=== PATIENT | male | born 1945 | race Caucasian/White ===

== ENCOUNTER 2016-12-10 06:18 | Day surgery (SDC) | payer MEDICARE ==
[2016-12-06 13:33] VITALS: BMI 29.0
[~2016-12-10 06:18] MED LIST: ALPRAZolam 0.25 MG TAB PO PRN; ALPRAZolam 0.5 MG TAB PO PRN; ASPIRIN 325 MG TAB PO STA; ATORVASTATIN 80 MG TAB PO STA; NITROGLYCERIN SL TABS 0.4 MG TAB SUBLINGUAL PRN; SODIUM CHLORIDE 0.9% 1,000 ML in EMPTY BAG 1 BAG IV ONE
[2016-12-10 06:43] VITALS: RESP 16
[2016-12-10] MEDS ORDERED: SODIUM CHLORIDE 0.9% 1,000 ML IV ONE (06:43)
[2016-12-10 06:55] LABS: Basophils % (A) 0 %; CH 30.6; CHCM 33.4; Eosinophils # (A) 0.2 k/uL (0-0.7); Eosinophils % (A) 2 %; HCT 41.5 % (39.0-53.0); HDW 2.78; HGB 13.5 gm/dL (13.0-17.5); Luc # (Auto) 0.14; Luc % (Auto) 2; Lymphocytes # (A) 2.6 k/uL (1.0-4.8); Lymphocytes % (A) 27 %; MCH 29.8 pg (25.0-35.0); MCHC 32.4 g/dL (31.0-37.0); MCV 91.8 fL (80.0-100.0); Mean Platelet Volume 6.7; Monocytes # (A) 0.3 k/uL (0-1.0); Monocytes % (A) 3 %; Neutrophils # (A) 6.4 k/uL (1.3-7.7); Neutrophils % (A) 66 %; RBC 4.52 m/uL (4.30-5.90); RDW 14.5 % (11.5-15.5); WBC 9.7 k/uL (3.8-10.6); WBC (Perox) 9.63
[2016-12-10 07:05] LABS: Anion Gap 9 mmol/L; Blood Urea Nitrogen 15 mg/dL (9-20); Calcium 8.7 mg/dL (8.4-10.2); Carbon Dioxide 24 mmol/L (22-30); Chloride 107 mmol/L (98-107); Glucose 103 mg/dL (74-99); Non-African American GFR(MDRD) >60 (>60 ml/min/1.73 sqM); Potassium 4.3 mmol/L (3.5-5.1); Sodium 140 mmol/L (137-145)
[2016-12-10] MEDS ORDERED: fentaNYL (PF) 50 MCG/ML 2 ML AMP ONE (07:20)
[2016-12-10] MEDS ORDERED: MIDAZOLAM 2 MG/2 ML VIAL ONE (07:20)
[2016-12-10] MEDS ORDERED: fentaNYL (PF) 50 MCG/ML 2 ML AMP IV ONE ×2 (07:26→09:53)
[2016-12-10] MEDS ORDERED: MIDAZOLAM 2 MG/2 ML VIAL IV ONE (07:26)
[2016-12-10] MEDS ORDERED: LIDOCAINE 2% INJ 20 MG/ML SQ ONE (07:28)
[2016-12-10] MEDS ORDERED: CLOPIDOGREL 75 MG TAB PO ONE (07:55)
[2016-12-10] MEDS ORDERED: BIVALIRUDIN BOLUS 250 MG/50 ML IV ONE (07:55)
[2016-12-10] MEDS ORDERED: BIVALIRUDIN 250 MG in SODIUM CHLORIDE 0.9% 50 ML IV ONE (07:56)
[2016-12-10] MEDS ORDERED: CLOPIDOGREL 75 MG TAB ONE (07:57)
[2016-12-10] MEDS: NITROGLYCERIN 1000MCG/10ML SYRINGE INTRACORON ONE ×2 (08:03→08:13)
[2016-12-10] MEDS ORDERED: HYDROmorphone 2 MG/ML 1 ML SYRINGE ONE (08:06)
[2016-12-10] MEDS: HYDROmorphone 2 MG/ML 1 ML SYRINGE IV ONE ×3 (08:07→08:17)
--- NOTE | 2016-12-10 08:08 | CC ---
DATE OF SERVICE: INDICATION: Shortness of breath with abnormal stress test suggestive of unstable angina. PROCEDURE NOTE: After obtaining informed consent, left heart catheterization and coronary angiogram are performed via the right femoral artery using standard Soledad catheters. Patient tolerated the procedure well without any obvious immediate complications. FINDINGS: 1. HEMODYNAMICS: Left ventricular end-diastolic pressure is 16 mm. There is no significant gradient across the aortic valve. 2. LEFT VENTRICULOGRAM: Left ventriculogram was not performed. 3. ANGIOGRAPHIC DATA: LEFT MAIN CORONARY ARTERY: Left main coronary artery is a normal size vessel and is free of stenosis. It divides into left anterior descending coronary artery and circumflex coronary artery. There is a mild to moderate atherosclerotic plaque in mid LAD. Circumflex coronary artery is free of stenosis. Right coronary artery is a large dominant vessel and there is an 80% to 90% stenosis involving mid RCA. CONCLUSION: An 80% to 90% stenosis involving mid right coronary artery. The ischemia noted in the apex of the ventricle is probably related to the right coronary artery. We do not see any hemodynamically significant lesion in the left anterior descending. Patient will undergo angioplasty of the right coronary artery today and will see how his symptoms evolve, and we will perform a stress test down the road to see if he has a more significant lesion in the left anterior descending coronary artery than we think he does. He will be managed with optimal medical therapy also.
[2016-12-10] MEDS ORDERED: niCARdipine Syringe (1,000 mcg/10 mL) INTRACORON ONE (08:12)
[2016-12-10] MEDS ORDERED: IOHEXOL 350 MG/ML 100 ML BOTTLE INTRATHECA ONE (08:32)
[2016-12-10] MEDS ORDERED: HYDROmorphone 1 MG/ML 1 ML SYRINGE IVP PRN (08:49)
[2016-12-10] MEDS ORDERED: RX INFO: IV CONTRAST WAS GIVEN 1 EACH MISC MISCELLANE PRN (08:50)
[2016-12-10] MEDS ORDERED: ATROPINE SULFATE 0.1 MG/ML 10ML SYRINGE IV PRN (08:50)
[2016-12-10] MEDS ORDERED: TIOTROPIUM BR INHALATION PRN (08:50)
[2016-12-10] MEDS ORDERED: OLODATEROL HCL INHALATION PRN (08:50)
[2016-12-10] MEDS ORDERED: MAG HYDROX/AL HYDROX/SIMETH 30 ML CUP PO PRN (08:50)
[2016-12-10] MEDS ORDERED: [UNRECOGNIZED DRUG - OTHER] INHALATION PRN (08:50)
[2016-12-10] MEDS ORDERED: NITROGLYCERIN SL TABS 0.4 MG TAB SUBLINGUAL PRN (08:50)
[2016-12-10] MEDS ORDERED: ZOLPIDEM 5 MG TAB PO PRN (08:50)
[2016-12-10] MEDS: HYDROmorphone 1 MG/ML 1 ML SYRINGE IVP PRN ×2 (08:58→20:07)
[2016-12-10] MEDS ORDERED: SODIUM CHLORIDE 0.9% 1,000 ML IV SCH (09:00)
[2016-12-10] MEDS ORDERED: MALTOSE IVPB SCH (09:00)
[2016-12-10] MEDS ORDERED: ABATACEPT IVPB SCH (09:00)
[2016-12-10] MEDS ORDERED: fentaNYL (PF) 50 MCG/ML 2 ML AMP IV PRN (09:46)
--- NOTE | 2016-12-10 09:46 | PTCA ---
DATE OF SERVICE: 12/10/2016 PERFORMING PHYSICIAN: Abigail Trinh, [employer] Supervisor. PROCEDURE PERFORMED: Successful stenting of the mid RCA using 3.5 x 12 mm Xience DOM which was postdilated using 3.75 mm balloon with good angiographic results. INDICATION: This is a pleasant 71-year-old gentleman who sees Dr. Draper as an outpatient, was experiencing chest discomfort and underwent myocardial perfusion imaging stress test which showed ischemia. He underwent a heart catheterization by Dr. Draper and was found to have severe disease involving the mid RCA. APPROACH: Right common femoral artery. COMPLICATIONS: None. LEVEL OF SEDATION: Moderate with sedation length of about 30 minutes. PROCEDURE DESCRIPTION: After diagnostic heart catheterization was performed by Dr. Draper, the decision was made toward percutaneous coronary intervention. Anticoagulation was initiated using Angiomax with subsequently, I took JR4 guide and the RCA was engaged. The RCA was wired using a whisper wire. Subsequently I did direct stenting of the RCA using 3.5 x 12 mm Xience DOM, where the stent was positioned under fluoroscopic guidance and deployed under 12 atmospheres for 20 seconds. Subsequently, I post-dilated using 3.75 mm x 12 mm balloon which was inflated under 18 atmospheres for 30 seconds with the following angiogram showed good angiographic result without perforation and without dissection. The procedure was completed without any complication. POSTPROCEDURE MANAGEMENT: 1. Dual antiplatelet therapy. 2. Risk factor modifications. 3. Follow up with the patient.
[2016-12-10] MEDS: FOLIC ACID 1 MG TAB PO SCH (12:09)
[2016-12-10] MEDS: METOPROLOL TARTRATE 25 MG TAB PO SCH ×2 (12:09→21:31)
[2016-12-10] MEDS: oxyCODONE-APAP 10-325MG 1 EACH TAB PO SCH ×3 (12:09→17:40)
[2016-12-10] MEDS: predniSONE 5 MG TAB PO SCH ×3 (12:10→21:32)
[2016-12-11] MEDS: oxyCODONE-APAP 10-325MG 1 EACH TAB PO SCH ×2 (00:02→07:45)
[2016-12-11] MEDS: HYDROmorphone 1 MG/ML 1 ML SYRINGE IVP PRN (03:04)
[2016-12-11 04:29] VITALS: PULSE 62
[2016-12-11 06:45] LABS: Basophils # (A) 0.1 k/uL (0-0.2); Basophils % (A) 1 %; CH 30.3; Eosinophils # (A) 0.1 k/uL (0-0.7); Eosinophils % (A) 1 %; HCT 41.4 % (39.0-53.0); HDW 2.75; HGB 13.1 gm/dL (13.0-17.5); Luc # (Auto) 0.14; Luc % (Auto) 2; Lymphocytes # (A) 3.4 k/uL (1.0-4.8); Lymphocytes % (A) 37 %; MCH 29.2 pg (25.0-35.0); MCHC 31.7 g/dL (31.0-37.0); MCV 92.2 fL (80.0-100.0); Mean Platelet Volume 7.1; Monocytes # (A) 0.4 k/uL (0-1.0); Monocytes % (A) 4 %; Neutrophils # (A) 5.4 k/uL (1.3-7.7); Neutrophils % (A) 57 %; RBC 4.49 m/uL (4.30-5.90); RDW 14.3 % (11.5-15.5); WBC 9.4 k/uL (3.8-10.6); WBC (Perox) 9.41
[2016-12-11 07:14] LABS: Anion Gap 9 mmol/L; Blood Urea Nitrogen 12 mg/dL (9-20); Calcium 8.7 mg/dL (8.4-10.2); Carbon Dioxide 26 mmol/L (22-30); Chloride 104 mmol/L (98-107); Glucose 158 mg/dL (74-99); Non-African American GFR(MDRD) >60 (>60 ml/min/1.73 sqM); Potassium 4.3 mmol/L (3.5-5.1); Sodium 139 mmol/L (137-145)
[2016-12-11] MEDS: FOLIC ACID 1 MG TAB PO SCH (07:45)
[2016-12-11] MEDS: METOPROLOL TARTRATE 25 MG TAB PO SCH (07:45)
[2016-12-11] MEDS: predniSONE 5 MG TAB PO SCH (07:46)
[2016-12-11 07:55] VITALS: BP 144/78; TEMP 98.1
--- NOTE | 2016-12-11 08:20 | DS ---
DATE OF ADMISSION: 12/10/2016 DATE OF DISCHARGE: 12/11/2016 FINAL DIAGNOSIS: Unstable angina. PROCEDURES PERFORMED: 1. Left heart catheterization. 2. Angioplasty with stent placement. HOSPITAL COURSE: A 71-year-old gentleman presented to me with symptoms of unstable angina with an abnormal stress test and was advised to undergo cardiac catheterization. His cardiac catheterization revealed a tight stenosis involving mid RCA and patient underwent angioplasty of the same. He had a fairly uneventful night. Did not have chest pain or difficulty in breathing. Had one short run of nonsustained VT. Condition at the time of discharge, he is free of symptoms, hemodynamically stable, there is no jugular venous distention. Carotid upstroke is normal. There is no bruit. Chest is clear to auscultation and percussion. Heart exam reveals first and second heart sounds. No gallop. No murmur. Abdomen is soft. Exam of the extremities did not reveal edema. Peripheral pulses are felt. Groin is free of bleeding, bruit, hematoma. Foot pulses are intact. EKG shows sinus rhythm, normal axis, normal intervals. Labs show a hemoglobin of 13.1, platelet count is 470. Creatinine is 0.8, rhythm strip showed nonsustained VT. DISCHARGE MEDICATIONS: Patient will go home on: 1. Aspirin. 2. Plavix. 3. Sublingual nitroglycerin on a p.r.n. basis. 4. Tenormin 25 mg daily. 5. Lipitor 40 mg daily. 6. Along with his rheumatoid arthritis medications. He will be followed up in my office in a week's time. He is going to have an outpatient 24-hour Holter to follow the nonsustained VT.
[2016-12-11] MEDS ORDERED: CLOPIDOGREL 75 MG TAB PO SCH (09:00)
[2016-12-11] MEDS ORDERED: ASPIRIN 81 MG CHEW PO SCH (09:00)
[2016-12-11] MEDS ORDERED: ATORVASTATIN 80 MG TAB PO SCH (21:00)
== END 2016-12-11 09:57 ==
LOC: CATHCVL 06:18 → 6SEL 08:18 → CATHCVL 12-11 09:57
PROVIDERS: ATTEND Internal Medicine Cardiovascular Disease
DX: I25.110 Atherosclerotic heart disease of native coronary artery with unstable angina pectoris (principal); R94.39 Abnormal result of other cardiovascular function study; M06.9 Rheumatoid arthritis, unspecified; Z79.891 Long term (current) use of opiate analgesic; Z79.52 Long term (current) use of systemic steroids; Z79.899 Other long term (current) drug therapy; Z87.891 Personal history of nicotine dependence
CPT/HCPCS: 93458; 80048 ×2; 85025 ×2; 99152; 99153 ×2; C9600; C1769 ×2; C1887; C1725; C1894; C1874; J2001; J2250; J1170 ×3; Q9967; J3010; J0583; J7512 ×2

== ENCOUNTER 2017-04-28 12:02 | Inpatient (IN) | payer MEDICARE ==
[2017-04-28] MEDS ORDERED: SODIUM CHLORIDE 0.9% 1,000 ML IV STA (13:10)
[2017-04-28] MEDS ORDERED: IPRATROPIUM-ALBUTEROL 3 ML NEB INHALATION STA (13:15)
--- NOTE | 2017-04-28 13:18 | ED ---
SOB HPI - General Chief Complaint: Shortness of Breath Stated Complaint: Diff breathing, poss pneumonia Time Seen by Provider: 04/28/17 12:53 Source: patient, RN notes reviewed Mode of arrival: ambulatory Limitations: no limitations - History of Present Illness Initial Comments: Patient is a 72-year-old male presents to the emergency room for evaluation of shortness of breath. Patient states she has a history of getting pneumonia. Patient states he feels like he has pneumonia. Patient is to begin having shortness of breath with wheezing about . Patient states he's having a slight productive cough. Patient denies fevers or chills. Patient denies nausea or vomiting. Patient denies headache or dizziness. Patient states that he used to smoke. Patient denies any known history of asthma or COPD. Patient does state he has a history of rheumatoid arthritis. Patient states he takes 10 mg of prednisone in the morning and at night. Patient states he has been on prednisone for years. Patient does state he feels slightly short of breath. Patient denies chest pain. Patient denies any other symptoms or complaints. - Related Data Home Medications Medication Instructions Recorded Confirmed oxyCODONE HCL/ACETAMINOPHEN 1 tab PO QID PRN 03/13/14 04/28/17 [Percocet 10-325 mg] Methotrexate Sodium (Pf) 50 mg INJ TU 11/14/15 04/28/17 [Methotrexate 50 mg/2 ml Vial] predniSONE [predniSONE] 20 mg PO DAILY 04/28/17 04/28/17 Allergies Allergy/AdvReac Type Severity Reaction Status Date / Time No Known Allergies Allergy Verified 04/28/17 12:05 Review of Systems ROS Statement: Those systems with pertinent positive or pertinent negative responses have been documented in the HPI. ROS Other: All systems not noted in ROS Statement are negative. Past Medical History Past Medical History: COPD, Rheumatoid Arthritis (RA) Additional Past Medical History / Comment(s): gastritis, viral pericarditis per past medical record but pt denies, COPD per past medical record but pt denies. PANCREATITIS usually a couple times a year, pneumonias. History of Any Multi-Drug Resistant Organisms: None Reported Past Surgical History: Joint Replacement, Orthopedic Surgery Additional Past Surgical History / Comment(s): L KNEE REPLACED, bilateral rotator cuff SHOULDER surgery x2, L ankle surgery after fx. EGD 2013 showed gastritis. Past Anesthesia/Blood Transfusion Reactions: No Reported Reaction Additional Past Anesthesia/Blood Transfusion Reaction / Comment(s): Pt states he has never recieved blood. Past Psychological History: No Psychological Hx Reported Smoking Status: Former smoker - Past Family History Sister(s) Family Medical History: Cancer Mother Family Medical History: Dementia Father Family Medical History: Rheumatoid Arthritis (RA) General Exam - General Exam Comments Initial Comments: Sitting in exam room, no acute distress. Limitations: no limitations General appearance: alert, in no apparent distress Head exam: Present: atraumatic, normocephalic, normal inspection Eye exam: Present: normal appearance ENT exam: Present: normal exam Neck exam: Present: normal inspection Respiratory exam: Present: wheezes (Diffuse wheezing on auscultation). Absent: respiratory distress Cardiovascular Exam: Present: normal rhythm, tachycardia, normal heart sounds GI/Abdominal exam: Present: soft, normal bowel sounds. Absent: distended, tenderness, guarding, rebound, rigid Extremities exam: Present: normal inspection Back exam: Present: normal inspection Neurological exam: Present: alert, oriented X3, CN II-XII intact, normal gait Psychiatric exam: Present: normal affect, normal mood Skin exam: Present: warm, dry, intact, normal color. Absent: rash Course Vital Signs 04/28/17 04/28/17 04/28/17 12:05 12:37 13:30 Temperature 98.3 F Pulse Rate 105 H 87 Respiratory 18 16 Rate Blood Pressure 117/64 O2 Sat by Pulse 93 L Oximetry 04/28/17 04/28/17 04/28/17 13:41 14:37 16:19 Temperature Pulse Rate 89 87 Respiratory 17 16 Rate Blood Pressure 107/56 107/56 O2 Sat by Pulse 92 L 95 Oximetry Medical Decision Making - Medical Decision Making patient is a 72-year-old male presents emergency room for evaluation of cough and shortness of breath. Patient's WBC elevated, patient has been on prednisone for the past few years. Chest x-ray negative for any acute findings. Patient's d-dimer slightly elevated. CT chest negative for PE. Patient is wheezing on exam. Patient's O2 sat low. Patient will be admitted for COPD exacerbation and treated with DuoNeb treatment and increased doses of prednisone. Case discussed Dr. España also evaluated patient. - Lab Data Result diagrams: 04/28/17 12:37 04/28/17 12:37 Lab Results 04/28/17 04/28/17 04/28/17 Range/Units 12:37 12:37 12:37 WBC 16.4 H (3.8-10.6) k/uL RBC 4.89 (4.30-5.90) m/uL Hgb 14.9 (13.0-17.5) gm/dL Hct 44.1 (39.0-53.0) % MCV 90.1 (80.0-100.0) fL MCH 30.4 (25.0-35.0) pg MCHC 33.7 (31.0-37.0) g/dL RDW 15.2 (11.5-15.5) % Plt Count 445 (150-450) k/uL Neutrophils % 89 % Lymphocytes % 7 % Monocytes % 3 % Eosinophils % 0 % Basophils % 0 % Neutrophils # 14.6 H (1.3-7.7) k/uL Lymphocytes # 1.1 (1.0-4.8) k/uL Monocytes # 0.5 (0-1.0) k/uL Eosinophils # 0.0 (0-0.7) k/uL Basophils # 0.0 (0-0.2) k/uL PT (9.0-12.0) sec INR (<1.2) APTT (22.0-30.0) sec D-Dimer (<0.60) mg/L FEU Sodium 134 L (137-145) mmol/L Potassium 4.9 (3.5-5.1) mmol/L Chloride 99 (98-107) mmol/L Carbon Dioxide 24 (22-30) mmol/L Anion Gap 11 mmol/L BUN 19 (9-20) mg/dL Creatinine 0.95 (0.66-1.25) mg/dL Est GFR (MDRD) Af Amer >60 (>60 ml/min/1.73 sqM) Est GFR (MDRD) Non-Af >60 (>60 ml/min/1.73 sqM) Glucose 110 H (74-99) mg/dL Calcium 8.4 (8.4-10.2) mg/dL Total Bilirubin 0.7 (0.2-1.3) mg/dL AST 24 (17-59) U/L ALT 35 (21-72) U/L Alkaline Phosphatase 108 (38-126) U/L Total Creatine Kinase 34 L (55-170) U/L CK-MB (CK-2) 0.3 (0.0-2.4) ng/mL CK-MB (CK-2) Rel Index 0.9 Troponin I <0.012 (0.000-0.034) ng/mL Total Protein 6.5 (6.3-8.2) g/dL Albumin 3.4 L (3.5-5.0) g/dL 04/28/17 Range/Units 12:37 WBC (3.8-10.6) k/uL RBC (4.30-5.90) m/uL Hgb (13.0-17.5) gm/dL Hct (39.0-53.0) % MCV (80.0-100.0) fL MCH (25.0-35.0) pg MCHC (31.0-37.0) g/dL RDW (11.5-15.5) % Plt Count (150-450) k/uL Neutrophils % % Lymphocytes % % Monocytes % % Eosinophils % % Basophils % % Neutrophils # (1.3-7.7) k/uL Lymphocytes # (1.0-4.8) k/uL Monocytes # (0-1.0) k/uL Eosinophils # (0-0.7) k/uL Basophils # (0-0.2) k/uL PT 11.2 (9.0-12.0) sec INR 1.1 (<1.2) APTT 27.0 (22.0-30.0) sec D-Dimer 0.64 H (<0.60) mg/L FEU Sodium (137-145) mmol/L Potassium (3.5-5.1) mmol/L Chloride (98-107) mmol/L Carbon Dioxide (22-30) mmol/L Anion Gap mmol/L BUN (9-20) mg/dL Creatinine (0.66-1.25) mg/dL Est GFR (MDRD) Af Amer (>60 ml/min/1.73 sqM) Est GFR (MDRD) Non-Af (>60 ml/min/1.73 sqM) Glucose (74-99) mg/dL Calcium (8.4-10.2) mg/dL Total Bilirubin (0.2-1.3) mg/dL AST (17-59) U/L ALT (21-72) U/L Alkaline Phosphatase (38-126) U/L Total Creatine Kinase (55-170) U/L CK-MB (CK-2) (0.0-2.4) ng/mL CK-MB (CK-2) Rel Index Troponin I (0.000-0.034) ng/mL Total Protein (6.3-8.2) g/dL Albumin (3.5-5.0) g/dL 04/28/17 14:12 Normal sinus rhythm, ventricular rate 90 bpm, DE interval 156 ms, QRS duration 78 ms, QT/QTC 330/403 ms - Radiology Data Radiology results: report reviewed, image reviewed Disposition Clinical Impression: COPD exacerbation Disposition: [facility] Condition: Stable Decision Date: 04/28/17
[2017-04-28 13:26] LABS: Basophils % (A) 0 %; CH 30.4; CHCM 33.9; Eosinophils % (A) 0 %; HCT 44.1 % (39.0-53.0); HDW 2.49; HGB 14.9 gm/dL (13.0-17.5); Luc # (Auto) 0.17; Luc % (Auto) 1; Lymphocytes # (A) 1.1 k/uL (1.0-4.8); Lymphocytes % (A) 7 %; MCH 30.4 pg (25.0-35.0); MCHC 33.7 g/dL (31.0-37.0); MCV 90.1 fL (80.0-100.0); Monocytes # (A) 0.5 k/uL (0-1.0); Monocytes % (A) 3 %; Neutrophils # (A) 14.6 k/uL (1.3-7.7); Neutrophils % (A) 89 %; RBC 4.89 m/uL (4.30-5.90); RDW 15.2 % (11.5-15.5); WBC 16.4 k/uL (3.8-10.6); WBC (Perox) 17.18
[2017-04-28 13:34] LABS: ALT 35 U/L (21-72); AST 24 U/L (17-59); Alkaline Phosphatase 108 U/L (38-126); Anion Gap 11 mmol/L; Blood Urea Nitrogen 19 mg/dL (9-20); Calcium 8.4 mg/dL (8.4-10.2); Carbon Dioxide 24 mmol/L (22-30); Chloride 99 mmol/L (98-107); Glucose 110 mg/dL (74-99); INR 1.1 (<1.2); Non-African American GFR(MDRD) >60 (>60 ml/min/1.73 sqM); Potassium 4.9 mmol/L (3.5-5.1); Sodium 134 mmol/L (137-145); Total Bilirubin 0.7 mg/dL (0.2-1.3); Total Protein 6.5 g/dL (6.3-8.2)
[2017-04-28 13:35] LABS: Prothrombin Time 11.2 sec (9.0-12.0)
[2017-04-28 13:46] LABS: Creatine Kinase 34 U/L (55-170)
[2017-04-28 13:59] LABS: Creatine Kinase MB 0.3 ng/mL (0.0-2.4); Troponin I <0.012 ng/mL (0.000-0.034)
--- NOTE | 2017-04-28 14:18 | XR ---
EXAMINATION TYPE: XR chest 2V DATE OF EXAM: 04/28/2017 COMPARISON: 03/18/2016 HISTORY: Shortness of breath TECHNIQUE: Frontal and lateral views of the chest are obtained. FINDINGS: Scattered senescent parenchymal changes noted. Hyperinflation compatible with COPD. No evidence for infiltrate. No evidence for atelectasis. Heart size is stable. Mediastinal structures are stable and grossly unremarkable. No evidence for hilar prominence. Degenerative changes dorsal spine. IMPRESSION: 1. No evidence for acute pulmonary disease.
[2017-04-28] MEDS ORDERED: RX INFO: IV CONTRAST WAS GIVEN 1 EACH MISC MISCELLANE PRN (14:52)
--- NOTE | 2017-04-28 15:40 | CT ---
EXAMINATION TYPE: CT angio chest DATE OF EXAM: 04/28/2017 COMPARISON: NONE HISTORY: Patient complains of difficulty breathing. CT DLP: 317.7 mGycm. Automated Exposure Control for Dose Reduction was Utilized. CONTRAST: CTA scan of the thorax is performed with IV Contrast, patient injected with 100 mL of Omnipaque 350, pulmonary embolism protocol. MIP Images are created on CT scanner and reviewed. FINDINGS: LUNGS: Small bilateral pleural effusions are increased in size from prior study, right greater than l eft. There is some ill-defined atelectasis and/or infiltrates in both bases abutting effusions. Exam is suboptimal as is degraded by respiratory motion artifact. There is dense consolidation right upper lobe posteriorly and inferiorly abutting the fissure. There is mild to moderate emphysematous change in the background with upper lung scarring and bleb formation seen bilaterally. Tracheobronchial leandra e is patent. No pneumothorax is seen bilaterally. MEDIASTINUM: There is suboptimal bolus but there is no CT evidence for pulmonary embolism. There are no greater than 1 cm hilar or mediastinal lymph nodes. No pericardial effusion is seen. Heart size is upper limits of normal. Main pulmonary artery is dilated at 3.[address] findings suggesting pulmon kameron artery hypertension. Coronary artery calcification is present. OTHER: There are scattered calcifications throughout the spleen. There is multilevel spurring in the spine. Osseous structures are somewhat demineralized. IMPRESSION: 1. Suboptimal bolus without CT evidence for pulmonary embolism. 2. There are small bilateral pleural effusions increased in size from prior study. There is patchy bi basilar atelectasis and/or infiltrate. There is dense right upper lobe masslike consolidation, correl ate for multifocal pneumonia. Follow-up to resolution advised to rule out neoplasm. Background of mil d to moderate emphysematous change noted.
[2017-04-28] MEDS ORDERED: NALOXONE 0.4 MG/ML 1 ML VIAL IV PRN (15:46)
[2017-04-28] MEDS ORDERED: predniSONE 50 MG TAB PO STA (15:55)
[2017-04-28] MEDS: ACETAMINOPHEN TAB 325 MG TAB PO PRN (16:49)
[2017-04-28] MEDS: SODIUM CHLORIDE 0.9% 1,000 ML IV SCH (16:49)
[2017-04-28] MEDS ORDERED: IPRATROPIUM-ALBUTEROL 3 ML NEB INHALATION SCH (17:00)
[2017-04-28] MEDS: IBUPROFEN 800 MG TAB PO PRN (19:18)
[2017-04-28] MEDS: AZITHROMYCIN 500 MG in SODIUM CHLORIDE 0.9% 250 ML IVPB SCH (20:15)
[2017-04-28] MEDS: IPRATROPIUM-ALBUTEROL 3 ML NEB INHALATION SCH ×2 (20:42→23:10)
[2017-04-28] MEDS: oxyCODONE-APAP 10-325MG 1 EACH TAB PO PRN (21:38)
[2017-04-28] MEDS ORDERED: IPRATROPIUM-ALBUTEROL 3 ML NEB INHALATION PRN (23:10)
[2017-04-29] MEDS: ONDANSETRON 4 MG/2 ML VIAL IVP PRN ×3 (04:26→20:32)
[2017-04-29] MEDS: SODIUM CHLORIDE 0.9% 1,000 ML IV SCH (05:34)
[2017-04-29] MEDS: HYDROmorphone 1 MG/ML 1 ML SYRINGE IVP PRN ×4 (05:34→22:27)
[2017-04-29] MEDS: oxyCODONE-APAP 10-325MG 1 EACH TAB PO PRN (08:02)
[2017-04-29] MEDS: IPRATROPIUM-ALBUTEROL 3 ML NEB INHALATION SCH ×4 (08:06→20:47)
[2017-04-29 09:00] LABS: Basophils % (A) 0 %; CH 30.1; CHCM 33.3; Eosinophils % (A) 0 %; HCT 39.3 % (39.0-53.0); HDW 2.53; HGB 13.4 gm/dL (13.0-17.5); Luc # (Auto) 0.15; Luc % (Auto) 1; Lymphocytes # (A) 0.6 k/uL (1.0-4.8); Lymphocytes % (A) 3 %; MCH 30.9 pg (25.0-35.0); MCV 90.8 fL (80.0-100.0); Mean Platelet Volume 7.5; Monocytes # (A) 0.3 k/uL (0-1.0); Monocytes % (A) 2 %; Neutrophils # (A) 17.4 k/uL (1.3-7.7); Neutrophils % (A) 94 %; RBC 4.33 m/uL (4.30-5.90); RDW 15.2 % (11.5-15.5); WBC 18.5 k/uL (3.8-10.6); WBC (Perox) 18.68
[2017-04-29] MEDS ORDERED: predniSONE 50 MG TAB PO SCH (09:00)
[2017-04-29 09:07] LABS: ALT 30 U/L (21-72); AST 27 U/L (17-59); Alkaline Phosphatase 96 U/L (38-126); Anion Gap 10 mmol/L; Blood Urea Nitrogen 17 mg/dL (9-20); Carbon Dioxide 22 mmol/L (22-30); Chloride 103 mmol/L (98-107); Glucose 141 mg/dL (74-99); Non-African American GFR(MDRD) >60 (>60 ml/min/1.73 sqM); Potassium 4.5 mmol/L (3.5-5.1); Sodium 135 mmol/L (137-145); Total Bilirubin 0.5 mg/dL (0.2-1.3); Total Protein 5.9 g/dL (6.3-8.2)
[2017-04-29] MEDS: AZITHROMYCIN 500 MG in SODIUM CHLORIDE 0.9% 250 ML IVPB SCH (09:28)
[2017-04-29] MEDS: IBUPROFEN 800 MG TAB PO PRN (09:45)
[2017-04-29] MEDS: ACETAMINOPHEN TAB 325 MG TAB PO PRN (11:02)
--- NOTE | 2017-04-29 11:58 | P.HPIM ---
History of Present Illness H&P Date: 04/29/17 Chief Complaint: Shortness of breath and cough This is a 72-year-old gentleman with past medical history noted below significant for underlying rheumatoid arthritis who presented to the hospital with worsening shortness of breath and cough. Patient said that his symptoms started few days ago and is being getting progressively worse. He said that his cough is productive of yellowish sputum. Patient reported that he is a former smoker and quit approximately 6 months ago. He was never told that he has COPD and was never evaluated by a graphic designer. In the emergency room, patient was found to have audible wheezing all over the chest. D-dimer was elevated so a computed tomography scan of the chest was obtained that showed no evidence of significant pulmonary emboli. The timing of the contrast was not ideal. Also noted by basilar infiltrate concerning for possible atelectasis versus pneumonia. Right upper lobe consolidation concerning for possible underlying malignancy/masslike lesion Review of Systems Review of system: 14 points review of systems were obtained and were negative except to what were mentioned in the HPI. Past Medical History Past Medical History: COPD, Rheumatoid Arthritis (RA) Additional Past Medical History / Comment(s): gastritis, viral pericarditis per past medical record but pt denies, COPD per past medical record but pt denies. PANCREATITIS usually a couple times a year, pneumonia multiple times. upper/ lower bridges". History of Any Multi-Drug Resistant Organisms: None Reported Past Surgical History: Heart Catheterization With Stent, Joint Replacement, Orthopedic Surgery Additional Past Surgical History / Comment(s): L KNEE REPLACED, bilateral rotator cuff SHOULDER surgery x2, L ankle surgery after fx. EGD 2013 showed gastritis. Past Anesthesia/Blood Transfusion Reactions: No Reported Reaction Additional Past Anesthesia/Blood Transfusion Reaction / Comment(s): Pt states he has never recieved blood. Date of Last Stent Placement:: unk Smoking Status: Former smoker - Past Family History Sister(s) Family Medical History: Cancer Additional Family Medical History / Comment(s): pt's father had ra, mother had 16 children was healthy most of her life age 93 from alzheimers. Mother Family Medical History: Dementia Father Family Medical History: Rheumatoid Arthritis (RA) Medications and Allergies Home Medications Medication Instructions Recorded Confirmed Type oxyCODONE HCL/ACETAMINOPHEN 1 tab PO QID PRN 06/01/14 07/17/17 History [Percocet 10-325 mg] Methotrexate Sodium (Pf) 50 mg INJ TU 11/14/15 04/28/17 History [Methotrexate 50 mg/2 ml Vial] predniSONE [predniSONE] 20 mg PO DAILY 04/28/17 04/28/17 History Allergies Allergy/AdvReac Type Severity Reaction Status Date / Time No Known Allergies Allergy Verified 04/28/17 12:05 Physical Exam Vitals: Vital Signs Temp Pulse Pulse Resp BP BP Pulse Ox 04/29/17 10:38 100.2 F H 04/29/17 09:53 102.8 F H 04/29/17 08:00 88 18 04/29/17 07:00 98.6 F 88 18 138/74 95 04/29/17 03:20 98.5 F 04/28/17 23:00 98.3 F 67 18 96/60 93 L 04/28/17 20:45 82 04/28/17 19:13 102 F H 04/28/17 16:45 101.1 F H 83 16 127/76 93 L 04/28/17 16:32 98.3 F 87 16 107/56 95 04/28/17 16:19 16 107/56 95 04/28/17 14:37 87 17 107/56 92 L 04/28/17 13:41 89 04/28/17 13:30 87 04/28/17 12:37 16 04/28/17 12:05 98.3 F 105 H 18 117/64 93 L Intake and Output 04/28/17 04/29/17 04/29/17 22:59 06:59 14:59 Intake Total 1400 50 Balance 1400 50 Intake: Amount of Fluid Infused ( 1000 ml) Oral 400 50 Other: Voiding Method Toilet Toilet Toilet # Voids 2 Weight 83.461 kg Patient Weight 04/30/17 06:59 Weight 83.461 kg General: The patient is awake and alert, in no distress, and does not appear acutely ill. Eye: extra-ocular movements are intact; there is normal conjunctiva bilaterally. . Neck: The neck is supple, there is no tenderness or JVD. Cardiovascular: Normal S1-S2, no S3-S4, no murmurs. Respiratory: Lungs with diffuse rhonchi and wheezing all over the chest Gastrointestinal: Abdomen is soft, nontender, nondistended, with no organomegaly. . Musculoskeletal: Normal ROM, no tenderness, There is no pedal edema. Neurological: There are no obvious motor or sensory deficits. Speech is normal. Skin: Skin is warm and dry and no rashes or lesions are noted. Results CBC & Chem 7: 04/29/17 08:18 04/29/17 08:18 Labs: Abnormal Lab Results - Last 24 Hours (Table) 04/28/17 04/28/17 04/28/17 Range/Units 12:37 12:37 12:37 WBC 16.4 H (3.8-10.6) k/uL Neutrophils # 14.6 H (1.3-7.7) k/uL Lymphocytes # (1.0-4.8) k/uL D-Dimer (<0.60) mg/L FEU Sodium 134 L (137-145) mmol/L Glucose 110 H (74-99) mg/dL Calcium (8.4-10.2) mg/dL Total Creatine Kinase 34 L (55-170) U/L Total Protein (6.3-8.2) g/dL Albumin 3.4 L (3.5-5.0) g/dL 04/28/17 04/29/17 04/29/17 Range/Units 12:37 08:18 08:18 WBC 18.5 H (3.8-10.6) k/uL Neutrophils # 17.4 H (1.3-7.7) k/uL Lymphocytes # 0.6 L (1.0-4.8) k/uL D-Dimer 0.64 H (<0.60) mg/L FEU Sodium 135 L (137-145) mmol/L Glucose 141 H (74-99) mg/dL Calcium 8.0 L (8.4-10.2) mg/dL Total Creatine Kinase (55-170) U/L Total Protein 5.9 L (6.3-8.2) g/dL Albumin 2.9 L (3.5-5.0) g/dL Thrombosis Risk Factor Assmnt - Choose All That Apply Any of the Below Risk Factors Present?: Yes Each Factor Represents 1 point: Abnormal pulmonary function (COPD) Other Risk Factors: Yes Each Risk Factor Represents 2 Points: Age 61-74 years Other congenital or acquired thrombophilia - If yes, enter type in comment: No Thrombosis Risk Factor Assessment Total Risk Factor Score: 3 Thrombosis Risk Factor Assessment Level: Moderate Risk Assessment and Plan Plan: 1. Acute COPD exacerbation 2. Right upper lobe consolidations concerning for metastatic lesion and malignancy 3. Community-acquired pneumonia 4. Underlying rheumatoid arthritis on methotrexate and chronic steroid therapy 5. DVT prophylaxis with subcu heparin Today, I reviewed his medication list and lab work results. Discontinue prednisone and start IV Solu-Medrol 40 mg every 8 hours. Continue bronchodilators as ordered. Add inhaled steroids. Continue antibiotic in the form of IV ceftriaxone and azithromycin. Sputum culture ordered. Consult pulmonology for further evaluation of the suspected mass. Continue supportive care otherwise. Repeat lab work in the morning.
[2017-04-29] MEDS ORDERED: Potassium Replacement Protocol 1 EACH MISC MISCELLANE PRN (11:59)
[2017-04-29] MEDS ORDERED: Magnesium Replacement Protocol 1 EACH MISC MISCELLANE PRN (11:59)
[2017-04-29] MEDS: methylPREDNISolone SOD SUCCI 40 MG/ML 1 ML VIAL IV SCH (16:16)
[2017-04-29] MEDS: guaiFENesin 600 MG TABLET.ER PO SCH (20:33)
[2017-04-29] MEDS: HEPARIN SODIUM,PORCINE 5,000 UNIT/ML 1 ML VIAL SQ SCH (20:37)
[2017-04-29] MEDS: BUDESONIDE 0.5 MG/2 ML NEBU INHALATION SCH (20:47)
[2017-04-30] MEDS: methylPREDNISolone SOD SUCCI 40 MG/ML 1 ML VIAL IV SCH ×4 (00:43→23:48)
[2017-04-30] MEDS: HYDROmorphone 1 MG/ML 1 ML SYRINGE IVP PRN ×5 (03:09→20:20)
[2017-04-30] MEDS: IPRATROPIUM-ALBUTEROL 3 ML NEB INHALATION SCH ×4 (07:40→20:28)
[2017-04-30] MEDS: BUDESONIDE 0.5 MG/2 ML NEBU INHALATION SCH ×2 (07:40→20:28)
[2017-04-30] MEDS: HEPARIN SODIUM,PORCINE 5,000 UNIT/ML 1 ML VIAL SQ SCH ×2 (07:52→20:21)
[2017-04-30] MEDS: guaiFENesin 600 MG TABLET.ER PO SCH ×2 (07:52→20:21)
[2017-04-30 08:28] LABS: Basophils % (A) 0 %; CH 30.5; CHCM 32.6; Eosinophils % (A) 0 %; HCT 42.3 % (39.0-53.0); HDW 2.62; HGB 13.3 gm/dL (13.0-17.5); Luc # (Auto) 0.08; Luc % (Auto) 0; Lymphocytes # (A) 0.6 k/uL (1.0-4.8); Lymphocytes % (A) 3 %; MCH 29.6 pg (25.0-35.0); MCHC 31.4 g/dL (31.0-37.0); MCV 94.1 fL (80.0-100.0); Mean Platelet Volume 7.4; Monocytes # (A) 0.3 k/uL (0-1.0); Monocytes % (A) 1 %; Neutrophils # (A) 21.6 k/uL (1.3-7.7); Neutrophils % (A) 96 %; RBC 4.49 m/uL (4.30-5.90); RDW 15.6 % (11.5-15.5); WBC 22.6 k/uL (3.8-10.6); WBC (Perox) 22.55
[2017-04-30 08:50] LABS: Anion Gap 11 mmol/L; Blood Urea Nitrogen 18 mg/dL (9-20); Calcium 8.5 mg/dL (8.4-10.2); Carbon Dioxide 23 mmol/L (22-30); Chloride 103 mmol/L (98-107); Glucose 118 mg/dL (74-99); Non-African American GFR(MDRD) >60 (>60 ml/min/1.73 sqM); Potassium 4.5 mmol/L (3.5-5.1); Sodium 137 mmol/L (137-145)
[2017-04-30] MEDS: AZITHROMYCIN 500 MG in SODIUM CHLORIDE 0.9% 250 ML IVPB SCH (09:20)
--- NOTE | 2017-04-30 11:48 | P.PN ---
Subjective Patient is feeling slightly better today. He said having audible wheezing. Shortness of breath is slightly improved. Objective - Vital Signs Vital signs: Vital Signs Temp 98.0 F 04/30/17 07:00 Pulse 76 04/30/17 07:00 Resp 20 04/30/17 07:00 BP 111/72 04/30/17 07:00 Pulse Ox 94 L 04/30/17 07:00 Intake & Output 04/29/17 04/30/17 04/30/17 18:59 06:59 18:59 Intake Total 100 450 Output Total 500 Balance 100 -50 Weight 83.461 kg Intake: Oral 100 450 Output: Urine 500 Other: Voiding Method Toilet Toilet Toilet # Voids 1 - Exam General: The patient is awake and alert, in no distress Eye: there is normal conjunctiva bilaterally. Neck: The neck is supple, there is no JVD. Cardiovascular: Normal S1-S2, no S3-S4, no murmurs. Respiratory: Lungs clear to auscultation bilaterally Gastrointestinal: Abdomen is soft, nontender Musculoskeletal: There is no pedal edema. Neurological:. Speech is normal. Skin: Skin is warm and dry - Labs CBC & Chem 7: 04/30/17 07:44 04/30/17 07:44 Labs: Abnormal Lab Results - Last 24 Hours (Table) 04/30/17 04/30/17 Range/Units 07:44 07:44 WBC 22.6 H (3.8-10.6) k/uL RDW 15.6 H (11.5-15.5) % Neutrophils # 21.6 H (1.3-7.7) k/uL Lymphocytes # 0.6 L (1.0-4.8) k/uL Glucose 118 H (74-99) mg/dL Assessment and Plan Plan: 1. Acute COPD exacerbation 2. Right upper lobe consolidations concerning for metastatic lesion and malignancy 3. Community-acquired pneumonia 4. Underlying rheumatoid arthritis on methotrexate and chronic steroid therapy 5. DVT prophylaxis with subcu heparin Today, I reviewed his medication list and lab work results. Continue IV Solu- Medrol 40 mg every 8 hours. Continue bronchodilators as ordered. inhaled steroids. Continue antibiotic in the form of IV ceftriaxone and azithromycin. Sputum culture ordered. awaiting pulmonology for further evaluation of the suspected mass. Continue supportive care otherwise. Repeat lab work in the morning.
--- NOTE | 2017-04-30 14:55 | P.CNPUL ---
History of Present Illness Consult date: 04/30/17 Requesting physician: Abad Vaca Reason for consult: COPD, pneumonia, abnormal CXR/CT Chief complaint: Worsening shortness of breath History of present illness: This is a very pleasant 72-year-old gentleman who follows with Dr. Ruthy Montemayor as his primary care physician. He has a history of rheumatoid arthritis 18 done prednisone 20 mg daily along with methotrexate injections, viral paracardiac diabetes, pancreatitis, coronary artery disease with previous stent placement to the RCA in November 2016. He does have a history of chronic tobacco use but quit in 2011. He had COPD and follows with Dr. Manley in our office for the same. He believes his FEV1 value is approximately 50% of predicted. He presented here on 04/28/2017 with complaints of increasing shortness of breath a few days prior to his arrival. A CT angiogram did not confirm pulmonary embolism. There are small bilateral pleural effusions and patchy basilar atelectasis/infiltrates. There is also a dense right upper lobe masslike consolidation most likely multifocal pneumonia however neoplasm remains in the differential. Does have mild to moderate symmetric changes noted as well. He is seen today in consultation on the regular medical floor. He is awake and alert in no acute distress. He states he is again breathing while easier today as compared to yesterday. He has a loose productive cough of yellowish sputum he does have some pain on inhalation. No hemoptysis. He did have a T-max of 102.8, currently afebrile. Maintaining good O2 saturations in the 90s on room air. She'll white count 16.4 currently 22.6. He has been initiated on bronchodilators, antibiotics in the form of ceftriaxone and azithromycin, Solu-Medrol and Mucinex Review of Systems All systems: negative Constitutional: Denies chills, Denies fever Eyes: denies blurred vision, denies pain Ears, nose, mouth and throat: Denies headache, Denies sore throat Cardiovascular: Denies chest pain, Denies shortness of breath Respiratory: Denies cough Gastrointestinal: Denies abdominal pain, Denies diarrhea, Denies nausea, Denies vomiting Musculoskeletal: Denies myalgias Integumentary: Denies pruritus, Denies rash Neurological: Denies numbness, Denies weakness Psychiatric: Denies anxiety, Denies depression Endocrine: Denies fatigue, Denies weight change Past Medical History Past Medical History: Coronary Artery Disease (CAD), COPD, Rheumatoid Arthritis (RA) Additional Past Medical History / Comment(s): Coronary artery disease with previous stent placement in November 2016 History of Any Multi-Drug Resistant Organisms: None Reported Past Surgical History: Heart Catheterization With Stent, Joint Replacement, Orthopedic Surgery Additional Past Surgical History / Comment(s): L KNEE REPLACED, bilateral rotator cuff SHOULDER surgery x2, L ankle surgery after fx. EGD 2013 showed gastritis. Past Anesthesia/Blood Transfusion Reactions: No Reported Reaction Additional Past Anesthesia/Blood Transfusion Reaction / Comment(s): Pt states he has never recieved blood. Date of Last Stent Placement:: unk Smoking Status: Former smoker - Past Family History Sister(s) Family Medical History: Cancer Additional Family Medical History / Comment(s): pt's father had ra, mother had 16 children was healthy most of her life age 93 from alzheimers. Mother Family Medical History: Dementia Father Family Medical History: Rheumatoid Arthritis (RA) Medications and Allergies Home Medications Medication Instructions Recorded Confirmed Type oxyCODONE HCL/ACETAMINOPHEN 1 tab PO QID PRN 03/13/14 04/28/17 History [Percocet 10-325 mg] Methotrexate Sodium (Pf) 50 mg INJ TU 11/14/15 04/28/17 History [Methotrexate 50 mg/2 ml Vial] predniSONE [predniSONE] 20 mg PO DAILY 04/28/17 04/28/17 History Allergies Allergy/AdvReac Type Severity Reaction Status Date / Time No Known Allergies Allergy Verified 04/28/17 12:05 Physical Exam Vitals: Vital Signs Temp Pulse Pulse Resp BP Pulse Ox 04/30/17 11:56 76 04/30/17 11:46 76 04/30/17 07:00 98.0 F 76 20 111/72 94 L 04/29/17 23:00 98.7 F 72 18 136/77 96 04/29/17 21:01 80 04/29/17 20:48 72 04/29/17 20:00 72 04/29/17 17:21 97.2 F L 04/29/17 17:10 84 04/29/17 17:00 80 04/29/17 16:00 77 18 04/29/17 14:45 99.5 F 77 18 129/77 95 Intake and Output 04/29/17 04/30/1704/30/17 22:59 06:59 14:59 Intake Total 200 250 Output Total 300 200 Balance -100 50 Intake: Oral 200 250 Output: Urine 300 200 Other: Voiding Method Toilet Toilet Toilet # Voids 1 Weight 83.461 kg GENERAL EXAM: Alert, active, comfortable in no apparent distress. HEAD: Normocephalic. EYES: Normal reaction of pupils, equal size. NOSE: Clear with pink turbinates. THROAT: No erythema or exudates. NECK: No masses, no JVD. CHEST: No chest wall deformity. LUNGS: Equal air entry with you scattered rhonchi, end expiratory wheeze, diminished. CVS: S1 and S2 normal with no audible murmurs, regular rhythm. ABDOMEN: No hepatosplenomegaly, normal bowel sounds, no guarding or rigidity. SPINE: No scoliosis or deformity SKIN: No rashes CENTRAL NERVOUS SYSTEM: No focal deficits, tone is normal in all 4 extremities. Extremities: There is no significant peripheral edema. No clubbing, no cyanosis. Peripheral pulses are intact. Results - Laboratory Findings CBC and BMP: 04/30/17 07:44 04/30/17 07:44 PT/INR, D-dimer PT 11.2 sec (9.0-12.0) 04/28/17 12:37 INR 1.1 (<1.2) 04/28/17 12:37 D-Dimer 0.64 mg/L FEU (<0.60) H 04/28/17 12:37 Abnormal lab findings: Abnormal Labs 04/28/17 04/28/17 04/28/17 12:37 12:37 12:37 WBC 16.4 H RDW Neutrophils # 14.6 H Lymphocytes # D-Dimer Sodium 134 L Glucose 110 H Calcium Total Creatine Kinase 34 L Total Protein Albumin 3.4 L 04/28/17 04/29/17 04/29/17 12:37 08:18 08:18 WBC 18.5 H RDW Neutrophils # 17.4 H Lymphocytes # 0.6 L D-Dimer 0.64 H Sodium 135 L Glucose 141 H Calcium 8.0 L Total Creatine Kinase Total Protein 5.9 L Albumin 2.9 L 04/30/17 04/30/17 07:44 07:44 WBC 22.6 H RDW 15.6 H Neutrophils # 21.6 H Lymphocytes # 0.6 L D-Dimer Sodium Glucose 118 H Calcium Total Creatine Kinase Total Protein Albumin - Diagnostic Findings Chest x-ray: image reviewed CT scan - chest: image reviewed Assessment and Plan Plan: Impression: #1 Multifocal bilateral pneumonia with dense consolidation in the right upper lobe posteriorly, community acquired, neoplasm does remain in the differential. #2 Acute exacerbation of chronic obstructive pulmonary disease secondary to above. #3 Acute hypoxic respiratory failure secondary to above. #4 Febrile illness secondary to above. #5 Remote history of chronic tobacco dependence, quit in 2011. #6 Rheumatoid arthritis being treated with both methotrexate and daily prednisone. #7 Coronary artery disease with stent placement to the RCA in November 2016. Plan: The patient was seen and evaluated by Dr. Manley. His chest x-ray CAT scan and labs were all reviewed. We'll go ahead and treat the patient for acute pneumonia. He remains on ceftriaxone and azithromycin. We'll continue with bronchodilators and IV Solu-Medrol. He is on heparin for DVT prophylaxis. We' ll increase his activity as tolerated. We'll continue to follow. Time with Patient: Greater than 30
[2017-04-30] MEDS: ACETAMINOPHEN TAB 325 MG TAB PO PRN (16:05)
[2017-05-01] MEDS: oxyCODONE-APAP 10-325MG 1 EACH TAB PO PRN ×3 (03:58→22:31)
[2017-05-01] MEDS: HYDROmorphone 1 MG/ML 1 ML SYRINGE IVP PRN ×3 (06:14→19:01)
[2017-05-01] MEDS: guaiFENesin 600 MG TABLET.ER PO SCH ×2 (07:38→20:39)
[2017-05-01] MEDS: HEPARIN SODIUM,PORCINE 5,000 UNIT/ML 1 ML VIAL SQ SCH ×2 (07:38→20:39)
[2017-05-01] MEDS: AZITHROMYCIN 500 MG TAB PO SCH (07:38)
[2017-05-01] MEDS: methylPREDNISolone SOD SUCCI 40 MG/ML 1 ML VIAL IV SCH ×2 (07:38→15:13)
[2017-05-01 07:58] LABS: Basophils % (A) 0 %; CH 29.9; CHCM 32.7; Eosinophils % (A) 0 %; HCT 37.7 % (39.0-53.0); HDW 2.74; HGB 12.2 gm/dL (13.0-17.5); Luc # (Auto) 0.07; Luc % (Auto) 0; Lymphocytes # (A) 0.6 k/uL (1.0-4.8); Lymphocytes % (A) 3 %; MCH 29.7 pg (25.0-35.0); MCHC 32.4 g/dL (31.0-37.0); MCV 91.6 fL (80.0-100.0); Mean Platelet Volume 7.6; Monocytes # (A) 0.3 k/uL (0-1.0); Monocytes % (A) 2 %; Neutrophils # (A) 19.6 k/uL (1.3-7.7); Neutrophils % (A) 95 %; RBC 4.11 m/uL (4.30-5.90); RDW 15.3 % (11.5-15.5); WBC 20.6 k/uL (3.8-10.6); WBC (Perox) 21.88
[2017-05-01 08:08] LABS: Anion Gap 10 mmol/L; Blood Urea Nitrogen 18 mg/dL (9-20); Calcium 8.3 mg/dL (8.4-10.2); Carbon Dioxide 23 mmol/L (22-30); Chloride 103 mmol/L (98-107); Glucose 118 mg/dL (74-99); Magnesium 1.8 mg/dL (1.6-2.3); Non-African American GFR(MDRD) >60 (>60 ml/min/1.73 sqM); Potassium 4.6 mmol/L (3.5-5.1); Sodium 136 mmol/L (137-145)
[2017-05-01] MEDS: BUDESONIDE 0.5 MG/2 ML NEBU INHALATION SCH ×2 (08:11→19:26)
[2017-05-01] MEDS: IPRATROPIUM-ALBUTEROL 3 ML NEB INHALATION SCH ×4 (08:11→19:26)
--- NOTE | 2017-05-01 12:26 | P.PN ---
Subjective Patient is doing better today. He continues to have end expiratory wheezing all over the chest. No fevers documented. Objective - Vital Signs Vital signs: Vital Signs Temp 97.4 F L 05/01/17 07:00 Pulse 84 05/01/17 11:50 Resp 20 05/01/17 07:00 BP 113/74 05/01/17 07:00 Pulse Ox 90 L 05/01/17 07:00 Intake & Output 04/30/17 05/01/17 05/01/17 18:59 06:59 18:59 Intake Total 350 Balance 350 Intake: Oral 350 Other: Voiding Method Toilet Toilet Toilet # Voids 3 1 1 - Exam General: The patient is awake and alert, in no distress Eye: there is normal conjunctiva bilaterally. Neck: The neck is supple, there is no JVD. Cardiovascular: Normal S1-S2, no S3-S4, no murmurs. Respiratory: Lungs clear to auscultation bilaterally Gastrointestinal: Abdomen is soft, nontender Musculoskeletal: There is no pedal edema. Neurological:. Speech is normal. Skin: Skin is warm and dry - Labs CBC & Chem 7: 05/01/17 07:29 05/01/17 07:29 Labs: Abnormal Lab Results - Last 24 Hours (Table) 05/01/17 05/01/17 Range/Units 07:29 07:29 WBC 20.6 H (3.8-10.6) k/uL RBC 4.11 L (4.30-5.90) m/uL Hgb 12.2 L (13.0-17.5) gm/dL Hct 37.7 L (39.0-53.0) % Plt Count 469 H (150-450) k/uL Neutrophils # 19.6 H (1.3-7.7) k/uL Lymphocytes # 0.6 L (1.0-4.8) k/uL Sodium 136 L (137-145) mmol/L Glucose 118 H (74-99) mg/dL Calcium 8.3 L (8.4-10.2) mg/dL Microbiology - Last 24 Hours (Table) 04/30/17 12:00 Gram Stain - Preliminary Sputum Assessment and Plan Plan: 1. Acute COPD exacerbation 2. Right upper lobe consolidations concerning for metastatic lesion and malignancy: Seen and evaluated by pulmonology. Plan to finish treatment with antibiotic and reassess as an outpatient. 3. Community-acquired pneumonia 4. Underlying rheumatoid arthritis on methotrexate and chronic steroid therapy 5. DVT prophylaxis with subcu heparin Today, I reviewed his medication list and lab work results. Continue bronchodilators and inhaled steroids. Continue antibiotic in the form of IV ceftriaxone and azithromycin. Sputum culture pending. Continue supportive care otherwise. Repeat lab work in the morning.
[2017-05-01] MEDS: ONDANSETRON 4 MG/2 ML VIAL IVP PRN ×2 (13:49→22:31)
--- NOTE | 2017-05-01 17:52 | P.PN ---
Subjective This is a very pleasant 72-year-old gentleman who follows with Dr. Ruthy Montemayor as his primary care physician. He has a history of rheumatoid arthritis 18 done prednisone 20 mg daily along with methotrexate injections, viral paracardiac diabetes, pancreatitis, coronary artery disease with previous stent placement to the RCA in November 2016. He does have a history of chronic tobacco use but quit in 2011. He had COPD and follows with Dr. Manley in our office for the same. He believes his FEV1 value is approximately 50% of predicted. He presented here on 04/28/2017 with complaints of increasing shortness of breath a few days prior to his arrival. A CT angiogram did not confirm pulmonary embolism. There are small bilateral pleural effusions and patchy basilar atelectasis/infiltrates. There is also a dense right upper lobe masslike consolidation most likely multifocal pneumonia however neoplasm remains in the differential. Does have mild to moderate symmetric changes noted as well. He is seen today in consultation on the regular medical floor. He is awake and alert in no acute distress. He states he is again breathing while easier today as compared to yesterday. He has a loose productive cough of yellowish sputum he does have some pain on inhalation. No hemoptysis. He did have a T-max of 102.8, currently afebrile. Maintaining good O2 saturations in the 90s on room air. She'll white count 16.4 currently 22.6. He has been initiated on bronchodilators, antibiotics in the form of ceftriaxone and azithromycin, Solu-Medrol and Mucinex. The patient is seen again today 05/01/2017 in follow-up on the regular medical floor. He is awake and alert in no acute distress. He is breathing easier today as compared to yesterday. Not quite back to his baseline. He is still dyspneic on minimal exertion. He is maintaining O2 saturations in the low 90s on room air. He is hemodynamically stable. Current temp 99.4. Leukocytosis improving. Objective - Vital Signs Vital signs: Vital Signs Temp 99.4 F 05/01/17 15:00 Pulse 78 05/01/17 15:00 Resp 24 05/01/17 15:00 BP 148/90 05/01/17 15:00 Pulse Ox 90 L 05/01/17 15:00 Intake & Output 04/30/17 05/01/17 05/01/17 18:59 06:59 18:59 Intake Total 350 Balance 350 Intake: Oral 350 Other: Voiding Method Toilet Toilet Toilet # Voids 3 1 1 - Exam GENERAL EXAM: Alert, active, comfortable in no apparent distress. HEAD: Normocephalic. EYES: Normal reaction of pupils, equal size. NOSE: Clear with pink turbinates. THROAT: No erythema or exudates. NECK: No masses, no JVD. CHEST: No chest wall deformity. LUNGS: Equal air entry with you scattered rhonchi, end expiratory wheeze, diminished. CVS: S1 and S2 normal with no audible murmurs, regular rhythm. ABDOMEN: No hepatosplenomegaly, normal bowel sounds, no guarding or rigidity. SPINE: No scoliosis or deformity SKIN: No rashes CENTRAL NERVOUS SYSTEM: No focal deficits, tone is normal in all 4 extremities. Extremities: There is no significant peripheral edema. No clubbing, no cyanosis. Peripheral pulses are intact. - Labs CBC & Chem 7: 05/01/17 07:29 05/01/17 07:29 Labs: Abnormal Lab Results - Last 24 Hours (Table) 05/01/17 05/01/17 Range/Units 07:29 07:29 WBC 20.6 H (3.8-10.6) k/uL RBC 4.11 L (4.30-5.90) m/uL Hgb 12.2 L (13.0-17.5) gm/dL Hct 37.7 L (39.0-53.0) % Plt Count 469 H (150-450) k/uL Neutrophils # 19.6 H (1.3-7.7) k/uL Lymphocytes # 0.6 L (1.0-4.8) k/uL Sodium 136 L (137-145) mmol/L Glucose 118 H (74-99) mg/dL Calcium 8.3 L (8.4-10.2) mg/dL Microbiology - Last 24 Hours (Table) 04/30/17 12:00 Gram Stain - Preliminary Sputum Assessment and Plan Plan: Impression: #1 Multifocal bilateral pneumonia with dense consolidation in the right upper lobe posteriorly, community acquired, neoplasm does remain in the differential. #2 Acute exacerbation of chronic obstructive pulmonary disease secondary to above. #3 Acute hypoxic respiratory failure secondary to above. #4 Febrile illness secondary to above. #5 Remote history of chronic tobacco dependence, quit in 2011. #6 Rheumatoid arthritis being treated with both methotrexate and daily prednisone. #7 Coronary artery disease with stent placement to the RCA in November 2016. Plan: The patient was seen and evaluated by Dr. Manley. The patient is nearly back to his baseline. We'll continue with his current medications. Most likely plan for discharge in the a.m. We'll increase his activity as tolerated. We' ll continue to follow.
[2017-05-02] MEDS: methylPREDNISolone SOD SUCCI 40 MG/ML 1 ML VIAL IV SCH ×4 (00:04→23:49)
[2017-05-02] MEDS: HYDROmorphone 1 MG/ML 1 ML SYRINGE IVP PRN ×3 (01:04→12:59)
[2017-05-02] MEDS: IPRATROPIUM-ALBUTEROL 3 ML NEB INHALATION SCH ×4 (07:06→20:23)
[2017-05-02] MEDS: BUDESONIDE 0.5 MG/2 ML NEBU INHALATION SCH ×2 (07:06→20:23)
[2017-05-02] MEDS: HEPARIN SODIUM,PORCINE 5,000 UNIT/ML 1 ML VIAL SQ SCH ×2 (07:45→20:41)
[2017-05-02] MEDS: guaiFENesin 600 MG TABLET.ER PO SCH ×2 (07:45→20:40)
[2017-05-02] MEDS: AZITHROMYCIN 500 MG TAB PO SCH (07:45)
[2017-05-02 08:44] LABS: Anisocytosis Slight; Basophils % (A) 0 %; CH 30.9; CHCM 33.3; Eosinophils % (A) 0 %; HCT 38.8 % (39.0-53.0); HGB 12.7 gm/dL (13.0-17.5); Luc # (Auto) 0.09; Luc % (Auto) 1; Lymphocytes # (A) 0.8 k/uL (1.0-4.8); Lymphocytes % (A) 5 %; MCH 30.5 pg (25.0-35.0); MCHC 32.7 g/dL (31.0-37.0); Mean Platelet Volume 7.9; Monocytes # (A) 0.3 k/uL (0-1.0); Monocytes % (A) 2 %; Neutrophils # (A) 13.8 k/uL (1.3-7.7); Neutrophils % (A) 92 %; RBC 4.17 m/uL (4.30-5.90); RDW 16.2 % (11.5-15.5); WBC 15.1 k/uL (3.8-10.6); WBC (Perox) 15.02
[2017-05-02 08:48] LABS: Anion Gap 9 mmol/L; Blood Urea Nitrogen 21 mg/dL (9-20); Calcium 8.1 mg/dL (8.4-10.2); Carbon Dioxide 27 mmol/L (22-30); Chloride 101 mmol/L (98-107); Glucose 124 mg/dL (74-99); Magnesium 1.9 mg/dL (1.6-2.3); Non-African American GFR(MDRD) >60 (>60 ml/min/1.73 sqM); Potassium 4.2 mmol/L (3.5-5.1); Sodium 137 mmol/L (137-145)
--- NOTE | 2017-05-02 11:53 | P.PN ---
Subjective Patient has been treated for COPD exacerbation and pneumonia. He is still having wheezing and shortness of breath. Shortness of breath is especially with activity. Patient did have a drop in his oxygen saturation. And is not ready for discharge. Patient denies any chest pain. Denies any nausea vomiting. Denies any bowel movement changes or urinary symptoms. Objective - Vital Signs Vital signs: Vital Signs Temp 98.7 F 05/02/17 07:00 Pulse 70 05/02/17 11:10 Resp 16 05/02/17 11:10 BP 135/77 05/02/17 07:00 Pulse Ox 95 05/02/17 11:36 Intake & Output 05/01/17 05/02/17 05/02/17 18:59 06:59 18:59 Intake Total 200 Balance 200 Intake: Oral 200 Other: Voiding Method Toilet Toilet # Voids 1 1 # Bowel Movements 0 - Exam Head normocephalic Neck supple Lungs wheezing bilaterally Heart regular rate and rhythm S1-S2, no rub or gallop Abdomen is soft nontender nondistended positive bowel sounds no hepatosplenomegaly Extremities no edema Neuro alert and orientated to 3 - Labs CBC & Chem 7: 05/02/17 08:15 05/02/17 08:15 Labs: Abnormal Lab Results - Last 24 Hours (Table) 05/02/17 05/02/17 Range/Units 08:15 08:15 WBC 15.1 H (3.8-10.6) k/uL RBC 4.17 L (4.30-5.90) m/uL Hgb 12.7 L (13.0-17.5) gm/dL Hct 38.8 L (39.0-53.0) % RDW 16.2 H (11.5-15.5) % Plt Count 509 H (150-450) k/uL Neutrophils # 13.8 H (1.3-7.7) k/uL Lymphocytes # 0.8 L (1.0-4.8) k/uL BUN 21 H (9-20) mg/dL Glucose 124 H (74-99) mg/dL Calcium 8.1 L (8.4-10.2) mg/dL Microbiology - Last 24 Hours (Table) 04/30/17 12:00 Gram Stain - Final Sputum Sputum Culture - Final Katja albicans Assessment and Plan Plan: 1. Acute COPD exacerbation: Continue nebulized treatments and IV steroids 2. Right upper lobe consolidations concerning for metastatic lesion and malignancy: Seen and evaluated by pulmonology. Plan to finish treatment with antibiotic and reassess as an outpatient. 3. Community-acquired pneumonia continue antibiotics 4. Underlying rheumatoid arthritis on methotrexate and chronic steroid therapy 5. DVT prophylaxis with subcu heparin I performed an examination of the patient and discussed their management with the physician Engineering Director. I have reviewed the Physician Engineering Director's notes and agree with the documented findings and plan of care
--- NOTE | 2017-05-02 13:05 | P.PN ---
Subjective This is a very pleasant 72-year-old gentleman who follows with Dr. Ruthy Montemayor as his primary care physician. He has a history of rheumatoid arthritis 18 done prednisone 20 mg daily along with methotrexate injections, viral paracardiac diabetes, pancreatitis, coronary artery disease with previous stent placement to the RCA in November 2016. He does have a history of chronic tobacco use but quit in 2011. He had COPD and follows with Dr. Manley in our office for the same. He believes his FEV1 value is approximately 50% of predicted. He presented here on 04/28/2017 with complaints of increasing shortness of breath a few days prior to his arrival. A CT angiogram did not confirm pulmonary embolism. There are small bilateral pleural effusions and patchy basilar atelectasis/infiltrates. There is also a dense right upper lobe masslike consolidation most likely multifocal pneumonia however neoplasm remains in the differential. Does have mild to moderate symmetric changes noted as well. He is seen today in consultation on the regular medical floor. He is awake and alert in no acute distress. He states he is again breathing while easier today as compared to yesterday. He has a loose productive cough of yellowish sputum he does have some pain on inhalation. No hemoptysis. He did have a T-max of 102.8, currently afebrile. Maintaining good O2 saturations in the 90s on room air. She'll white count 16.4 currently 22.6. He has been initiated on bronchodilators, antibiotics in the form of ceftriaxone and azithromycin, Solu-Medrol and Mucinex. The patient is seen again today 05/01/2017 in follow-up on the regular medical floor. He is awake and alert in no acute distress. He is breathing easier today as compared to yesterday. Not quite back to his baseline. He is still dyspneic on minimal exertion. He is maintaining O2 saturations in the low 90s on room air. He is hemodynamically stable. Current temp 99.4. Leukocytosis improving. The patient is seen again today May 02 in follow-up in the regular medical floor. He is awake and alert in no acute distress. He is nearly back to his baseline. He did dip his saturations today high 80s on room air. He is currently in the mid 90s on 2 L/m per nasal cannula. Sputum cultures positive for Katja. White count continues to improve currently at 15.1. He is afebrile. Objective - Vital Signs Vital signs: Vital Signs Temp 98.7 F 05/02/17 07:00 Pulse 70 05/02/17 11:10 Resp 16 05/02/17 11:10 BP 135/77 05/02/17 07:00 Pulse Ox 95 05/02/17 11:36 Intake & Output 05/01/17 05/02/17 05/02/17 18:59 06:59 18:59 Intake Total 200 Balance 200 Intake: Oral 200 Other: Voiding Method Toilet Toilet # Voids 1 1 # Bowel Movements 0 - Exam GENERAL EXAM: Alert, active, comfortable in no apparent distress. HEAD: Normocephalic. EYES: Normal reaction of pupils, equal size. NOSE: Clear with pink turbinates. THROAT: No erythema or exudates. NECK: No masses, no JVD. CHEST: No chest wall deformity. LUNGS: Equal air entry with you scattered rhonchi, end expiratory wheeze, diminished. CVS: S1 and S2 normal with no audible murmurs, regular rhythm. ABDOMEN: No hepatosplenomegaly, normal bowel sounds, no guarding or rigidity. SPINE: No scoliosis or deformity SKIN: No rashes CENTRAL NERVOUS SYSTEM: No focal deficits, tone is normal in all 4 extremities. Extremities: There is no significant peripheral edema. No clubbing, no cyanosis. Peripheral pulses are intact. - Labs CBC & Chem 7: 05/02/17 08:15 05/02/17 08:15 Labs: Abnormal Lab Results - Last 24 Hours (Table) 05/02/17 05/02/17 Range/Units 08:15 08:15 WBC 15.1 H (3.8-10.6) k/uL RBC 4.17 L (4.30-5.90) m/uL Hgb 12.7 L (13.0-17.5) gm/dL Hct 38.8 L (39.0-53.0) % RDW 16.2 H (11.5-15.5) % Plt Count 509 H (150-450) k/uL Neutrophils # 13.8 H (1.3-7.7) k/uL Lymphocytes # 0.8 L (1.0-4.8) k/uL BUN 21 H (9-20) mg/dL Glucose 124 H (74-99) mg/dL Calcium 8.1 L (8.4-10.2) mg/dL Microbiology - Last 24 Hours (Table) 04/30/17 12:00 Gram Stain - Final Sputum Sputum Culture - Final Katja albicans Assessment and Plan Plan: Impression: #1 Multifocal bilateral pneumonia with dense consolidation in the right upper lobe posteriorly, community acquired, neoplasm does remain in the differential. #2 Acute exacerbation of chronic obstructive pulmonary disease secondary to above. #3 Acute hypoxic respiratory failure secondary to above. #4 Febrile illness secondary to above. #5 Remote history of chronic tobacco dependence, quit in 2011. #6 Rheumatoid arthritis being treated with both methotrexate and daily prednisone. #7 Coronary artery disease with stent placement to the RCA in November 2016. Plan: The patient was seen and evaluated by Dr. Manley. The patient is nearly back to his baseline. We'll continue with his current medications. We will continue to follow. Possibly home tomorrow.
[2017-05-02] MEDS: oxyCODONE-APAP 10-325MG 1 EACH TAB PO PRN ×2 (15:20→19:03)
[2017-05-03] MEDS: oxyCODONE-APAP 10-325MG 1 EACH TAB PO PRN (01:04)
[2017-05-03] MEDS: IPRATROPIUM-ALBUTEROL 3 ML NEB INHALATION SCH ×4 (07:44→20:49)
[2017-05-03] MEDS: BUDESONIDE 0.5 MG/2 ML NEBU INHALATION SCH ×2 (07:44→20:49)
[2017-05-03 08:27] LABS: Basophils % (A) 0 %; CH 30.8; CHCM 33.7; Eosinophils % (A) 0 %; HCT 38.4 % (39.0-53.0); HDW 2.67; HGB 12.8 gm/dL (13.0-17.5); Luc # (Auto) 0.09; Luc % (Auto) 1; Lymphocytes # (A) 1.1 k/uL (1.0-4.8); Lymphocytes % (A) 11 %; MCH 30.7 pg (25.0-35.0); MCHC 33.4 g/dL (31.0-37.0); MCV 91.8 fL (80.0-100.0); Mean Platelet Volume 7.9; Monocytes # (A) 0.3 k/uL (0-1.0); Monocytes % (A) 3 %; Neutrophils # (A) 8.6 k/uL (1.3-7.7); Neutrophils % (A) 85 %; RBC 4.18 m/uL (4.30-5.90); RDW 15.9 % (11.5-15.5); WBC 10.1 k/uL (3.8-10.6); WBC (Perox) 10.32
[2017-05-03 08:36] LABS: Anion Gap 7 mmol/L; Blood Urea Nitrogen 18 mg/dL (9-20); Calcium 8.4 mg/dL (8.4-10.2); Carbon Dioxide 27 mmol/L (22-30); Chloride 103 mmol/L (98-107); Glucose 113 mg/dL (74-99); Magnesium 1.9 mg/dL (1.6-2.3); Non-African American GFR(MDRD) >60 (>60 ml/min/1.73 sqM); Potassium 4.3 mmol/L (3.5-5.1); Sodium 137 mmol/L (137-145)
[2017-05-03 08:49] LABS: Creatine Kinase 56 U/L (55-170)
[2017-05-03 09:01] LABS: Creatine Kinase MB 1.7 ng/mL (0.0-2.4); Troponin I <0.012 ng/mL (0.000-0.034)
[2017-05-03] MEDS: guaiFENesin 600 MG TABLET.ER PO SCH ×3 (09:08→20:58)
[2017-05-03] MEDS: ONDANSETRON 4 MG/2 ML VIAL IVP PRN (09:08)
[2017-05-03] MEDS: HEPARIN SODIUM,PORCINE 5,000 UNIT/ML 1 ML VIAL SQ SCH ×2 (09:10→20:58)
[2017-05-03] MEDS: methylPREDNISolone SOD SUCCI 40 MG/ML 1 ML VIAL IV SCH ×3 (09:11→23:57)
[2017-05-03] MEDS: AZITHROMYCIN 500 MG TAB PO SCH ×2 (09:11→12:19)
[2017-05-03] MEDS: HYDROmorphone 1 MG/ML 1 ML SYRINGE IVP PRN ×4 (09:20→21:30)
[2017-05-03] MEDS ORDERED: ONDANSETRON 4 MG/2 ML VIAL IVP PRN (10:32)
--- NOTE | 2017-05-03 11:06 | P.PN ---
Subjective Patient is complaining of significant nausea and epigastric pain this morning. He said that his symptoms started all of a sudden. He was doing fairly well up until last night. He said that his pain is 7 out of 10 in severity. He underwent a 12-lead EKG this morning showing no acute ischemic changes. Troponin was negative. Patient was having normal bowel movements up until yesterday. His abdomen is soft on exam with moderate tenderness worse in the epigastric area. Patient said that he had those symptoms on and off for the past year and was seen and evaluated previously with CAT scans and EGD study was reported normal to him. Objective - Vital Signs Vital signs: Vital Signs Temp 97 F L 05/03/17 07:00 Pulse 80 05/03/17 07:53 Resp 16 05/03/17 07:00 BP 168/85 05/03/17 07:00 Pulse Ox 90 L 05/03/17 07:00 Intake & Output 05/02/17 05/03/17 05/03/17 18:59 06:59 18:59 Intake Total 200 Balance 200 Intake: Oral 200 Other: Voiding Method Toilet # Voids 2 1 - Exam General: The patient is awake and alert, in no distress Eye: there is normal conjunctiva bilaterally. Neck: The neck is supple, there is no JVD. Cardiovascular: Normal S1-S2, no S3-S4, no murmurs. Respiratory: Lungs clear to auscultation bilaterally Gastrointestinal: Abdomen is soft, there is mild to moderate tenderness to palpation worse in the epigastric area Musculoskeletal: There is no pedal edema. Neurological:. Speech is normal. Skin: Skin is warm and dry - Labs CBC & Chem 7: 05/03/17 08:03 05/03/17 08:03 Labs: Abnormal Lab Results - Last 24 Hours (Table) 05/03/17 05/03/17 Range/Units 08:03 08:03 RBC 4.18 L (4.30-5.90) m/uL Hgb 12.8 L (13.0-17.5) gm/dL Hct 38.4 L (39.0-53.0) % RDW 15.9 H (11.5-15.5) % Plt Count 588 H (150-450) k/uL Neutrophils # 8.6 H (1.3-7.7) k/uL Glucose 113 H (74-99) mg/dL Microbiology - Last 24 Hours (Table) 04/30/17 12:00 Gram Stain - Final Sputum Sputum Culture - Final Katja albicans Assessment and Plan Plan: 1. Acute COPD exacerbation 2. Right upper lobe consolidations concerning for metastatic lesion and malignancy: Seen and evaluated by pulmonology. Plan to finish treatment with antibiotic and reassess as an outpatient. 3. Community-acquired pneumonia 4. Underlying rheumatoid arthritis on methotrexate and chronic steroid therapy 5. DVT prophylaxis with subcu heparin 6. Acute epigastric pain with nausea and one episode of vomiting. Exact etiology unclear. Patient is managed symptomatically. I would check amylase, lipase, and lactic acids. We'll continue to monitor and may consider imaging and/or surgery evaluation if symptoms get worse. 7. Acute hypoxic respiratory failure home O2 was set up for the patient. Today, I reviewed his medication list and lab work results. Continue bronchodilators and inhaled steroids. Continue antibiotic in the form of IV ceftriaxone and azithromycin. Sputum culture pending. Continue supportive care otherwise. Repeat lab work in the morning.
--- NOTE | 2017-05-03 11:42 | XR ---
EXAMINATION TYPE: XR chest 2V DATE OF EXAM: 05/03/2017 COMPARISON: 04/28/2017 HISTORY: Shortness of breath TECHNIQUE: Frontal and lateral views of the chest are obtained. FINDINGS: Scattered senescent parenchymal changes noted. Hyperinflation compatible with COPD. Perihilar airspace infiltrates right greater than left. Small right-sided pleural effusion and pleura l thickening. The heart is mildly enlarged. Findings could reflect early congestive failure versus de veloping pneumonia. Correlate clinically. Mediastinal structures are stable and grossly unremarkable. No evidence for hilar prominence. Degenerative changes dorsal spine. IMPRESSION: 1. Perihilar airspace infiltrates right greater than left. Small right-sided pleural effusion and ple ural thickening. The heart is mildly enlarged. Findings could reflect early congestive failure versus developing pneumonia. Correlate clinically.
--- NOTE | 2017-05-03 11:43 | XR ---
EXAMINATION TYPE: XR abdomen 1V DATE OF EXAM: 05/03/2017 COMPARISON: 03/01/2015 HISTORY: Pain TECHNIQUE: Single supine KUB image of the abdomen is obtained FINDINGS: Small bowel demonstrates no evidence for dilatation or air fluid levels. Gas and fecal material is seen in non-distended colon. No convincing evidence for pneumoperitoneum. No unusual calcifications. The lung bases are clear. The osseous structures are intact. IMPRESSION: 1. Overall nonobstructive bowel gas pattern.
[2017-05-03 11:44] LABS: Amylase 67 U/L (30-110)
--- NOTE | 2017-05-03 13:07 | P.PN ---
Subjective This is a very pleasant 72-year-old gentleman who follows with Dr. Ruthy Montemayor as his primary care physician. He has a history of rheumatoid arthritis 18 done prednisone 20 mg daily along with methotrexate injections, viral paracardiac diabetes, pancreatitis, coronary artery disease with previous stent placement to the RCA in November 2016. He does have a history of chronic tobacco use but quit in 2011. He had COPD and follows with Dr. Manley in our office for the same. He believes his FEV1 value is approximately 50% of predicted. He presented here on 04/28/2017 with complaints of increasing shortness of breath a few days prior to his arrival. A CT angiogram did not confirm pulmonary embolism. There are small bilateral pleural effusions and patchy basilar atelectasis/infiltrates. There is also a dense right upper lobe masslike consolidation most likely multifocal pneumonia however neoplasm remains in the differential. Does have mild to moderate symmetric changes noted as well. He is seen today in consultation on the regular medical floor. He is awake and alert in no acute distress. He states he is again breathing while easier today as compared to yesterday. He has a loose productive cough of yellowish sputum he does have some pain on inhalation. No hemoptysis. He did have a T-max of 102.8, currently afebrile. Maintaining good O2 saturations in the 90s on room air. She'll white count 16.4 currently 22.6. He has been initiated on bronchodilators, antibiotics in the form of ceftriaxone and azithromycin, Solu-Medrol and Mucinex. The patient is seen again today 05/01/2017 in follow-up on the regular medical floor. He is awake and alert in no acute distress. He is breathing easier today as compared to yesterday. Not quite back to his baseline. He is still dyspneic on minimal exertion. He is maintaining O2 saturations in the low 90s on room air. He is hemodynamically stable. Current temp 99.4. Leukocytosis improving. The patient is seen again today May 02 in follow-up in the regular medical floor. He is awake and alert in no acute distress. He is nearly back to his baseline. He did dip his saturations today high 80s on room air. He is currently in the mid 90s on 2 L/m per nasal cannula. Sputum cultures positive for Katja. White count continues to improve currently at 15.1. He is afebrile. On 05/03/2017 the patient was seen to have some discomfort over the epigastric area. He has been having nausea and he has had 3 bouts of emesis today. Note that the patient was Hospital as for an extensive right lung pneumonia and he seemed to be recovering gradually was doing well until he took a turn to the worse today when he started having gastrointestinal symptoms. He is not known to have any peptic ulcer disease. Lactic acid level is at 1.1. An amylase lipase was checked and it was 6789 respectively. Cardiac enzymes is a been negative. A chest x-ray was repeated today and showed perihilar airspace disease right more than left and there is a small right-sided pleural effusion. The flexible the abdomen showed overall nonobstructive bowel gas pattern. I suspect that the chest x-ray finding is consistent with a component of fluid overload. Objective - Vital Signs Vital signs: Vital Signs Temp 97 F L 05/03/17 07:00 Pulse 76 05/03/17 11:18 Resp 16 05/03/17 07:00 BP 168/85 05/03/17 07:00 Pulse Ox 90 L 05/03/17 07:00 Intake & Output 05/02/17 05/03/17 05/03/17 18:59 06:59 18:59 Intake Total 200 Balance 200 Intake: Oral 200 Other: Voiding Method Toilet # Voids 2 1 - Exam GENERAL EXAM: Alert, active, comfortable in no apparent distress. HEAD: Normocephalic. EYES: Normal reaction of pupils, equal size. NOSE: Clear with pink turbinates. THROAT: No erythema or exudates. NECK: No masses, no JVD. CHEST: No chest wall deformity. LUNGS: Show diminished breath sounds bilaterally along with crackles in the mid and lower lung bass and scattered throughout the lung bass bilaterally. CVS: S1 and S2 normal with no audible murmurs, regular rhythm. ABDOMEN: No hepatosplenomegaly, normal bowel sounds, no guarding or rigidity. SPINE: No scoliosis or deformity SKIN: No rashes CENTRAL NERVOUS SYSTEM: No focal deficits, tone is normal in all 4 extremities. Extremities: There is no significant peripheral edema. No clubbing, no cyanosis. Peripheral pulses are intact. - Labs CBC & Chem 7: 05/03/17 08:03 05/03/17 08:03 Labs: Abnormal Lab Results - Last 24 Hours (Table) 05/03/17 05/03/17 Range/Units 08:03 08:03 RBC 4.18 L (4.30-5.90) m/uL Hgb 12.8 L (13.0-17.5) gm/dL Hct 38.4 L (39.0-53.0) % RDW 15.9 H (11.5-15.5) % Plt Count 588 H (150-450) k/uL Neutrophils # 8.6 H (1.3-7.7) k/uL Glucose 113 H (74-99) mg/dL Microbiology - Last 24 Hours (Table) 04/30/17 12:00 Gram Stain - Final Sputum Sputum Culture - Final Katja albicans Assessment and Plan Plan: Impression: #1 Multifocal bilateral pneumonia with dense consolidation in the right upper lobe posteriorly, community acquired, neoplasm does remain in the differential. #2 Acute exacerbation of chronic obstructive pulmonary disease secondary to above. #3 Acute hypoxic respiratory failure secondary to above. #4 Febrile illness secondary to above. #5 Remote history of chronic tobacco dependence, quit in 2011. #6 Rheumatoid arthritis being treated with both methotrexate and daily prednisone. #7 Coronary artery disease with stent placement to the RCA in November 2016. #8 increased nausea and a few episodes of emesis with nonspecific bowel pattern #9 leukocytosis, improving Plan Chest x-ray finding is worse. There is an extensive right consolidation however there is diffuse interstitial prominence bilaterally probably related to underlying fluid overload. Cardiac enzymes have been negative. Abdominal films been negative. Amylase and lipase are within normal limits. Noted the patient initially presented with an extensive right lung consolidation and subsequently he was improving until this morning when he started having some increased respiratory distress. Based on this, we'll start the patient on Lasix 40 mg IV push every 12 hours. Repeat chest x-ray in the morning. Positive monitor his progress a may need to broaden antibiotic coverage knowing that he has been in the suppressed with methotrexate on outpatient basis. It final decision to broaden antibiotic coverage will be done if he doesn't respond well to diuretics. Note that his white cell count is a bit improving and the patient was clinically improving until this morning. Possibility of fluid overload is quite high.
[2017-05-03] MEDS: FUROSEMIDE 10 MG/ML 4 ML VIAL IV SCH ×2 (13:26→20:58)
[2017-05-03 17:14] LABS: Appearance,Urine Clear (Clear); Bilirubin,Urine Negative (Negative); Glucose,Urine (UA) Negative (Negative); Ketones,Urine Negative (Negative); Leukocyte Esterase,Urine Negative (Negative); Nitrite,Urine Negative (Negative); PH, Urine 7.5 (5.0-8.0); Protein,Urine Negative (Negative); Specific Gravity,Urine 1.004 (1.001-1.035); UA Billing (MACRO vs. MICRO) CHEM; Urobilinogen,Urine <2.0 mg/dL (<2.0)
[2017-05-04] MEDS: HYDROmorphone 1 MG/ML 1 ML SYRINGE IVP PRN ×5 (01:39→23:51)
[2017-05-04] MEDS: IPRATROPIUM-ALBUTEROL 3 ML NEB INHALATION SCH ×4 (06:58→19:31)
[2017-05-04] MEDS: BUDESONIDE 0.5 MG/2 ML NEBU INHALATION SCH ×2 (06:58→19:29)
[2017-05-04 08:58] LABS: Basophils % (A) 0 %; CH 30.7; CHCM 33.4; Eosinophils % (A) 0 %; HCT 43.2 % (39.0-53.0); HDW 2.61; HGB 13.8 gm/dL (13.0-17.5); Luc # (Auto) 0.12; Luc % (Auto) 1; Lymphocytes # (A) 1.4 k/uL (1.0-4.8); Lymphocytes % (A) 17 %; MCH 29.5 pg (25.0-35.0); MCHC 32.1 g/dL (31.0-37.0); MCV 92.1 fL (80.0-100.0); Mean Platelet Volume 7.8; Monocytes # (A) 0.3 k/uL (0-1.0); Monocytes % (A) 4 %; Neutrophils # (A) 6.4 k/uL (1.3-7.7); Neutrophils % (A) 78 %; RBC 4.69 m/uL (4.30-5.90); RDW 15.9 % (11.5-15.5); WBC 8.2 k/uL (3.8-10.6); WBC (Perox) 7.98
[2017-05-04] MEDS: guaiFENesin 600 MG TABLET.ER PO SCH ×2 (09:16→21:58)
[2017-05-04] MEDS: AZITHROMYCIN 500 MG TAB PO SCH (09:17)
[2017-05-04] MEDS: methylPREDNISolone SOD SUCCI 40 MG/ML 1 ML VIAL IV SCH ×2 (09:17→17:44)
[2017-05-04] MEDS: FUROSEMIDE 10 MG/ML 4 ML VIAL IV SCH ×2 (09:17→21:15)
[2017-05-04] MEDS: HEPARIN SODIUM,PORCINE 5,000 UNIT/ML 1 ML VIAL SQ SCH ×2 (09:17→21:15)
[2017-05-04 09:18] LABS: Anion Gap 12 mmol/L; Blood Urea Nitrogen 25 mg/dL (9-20); Calcium 8.5 mg/dL (8.4-10.2); Carbon Dioxide 26 mmol/L (22-30); Chloride 98 mmol/L (98-107); Glucose 100 mg/dL (74-99); Non-African American GFR(MDRD) >60 (>60 ml/min/1.73 sqM); Potassium 4.6 mmol/L (3.5-5.1); Sodium 136 mmol/L (137-145)
--- NOTE | 2017-05-04 09:28 | XR ---
EXAMINATION TYPE: XR chest 2V DATE OF EXAM: 05/04/2017 COMPARISON: 05/03/2017 HISTORY: Shortness of breath TECHNIQUE: Frontal and lateral views of the chest are obtained. FINDINGS: Scattered senescent parenchymal changes noted. Hyperinflation compatible with COPD. Right perihilar infiltrate persists however infiltrate throughout the left lung as well as within the right upper lobe appears to be improved. Persistent right-sided pleural thickening or small effusion . Heart size is stable. Mediastinal structures are stable and grossly unremarkable. No evidence for hilar prominence. Degenerative changes dorsal spine. IMPRESSION: 1. Right perihilar infiltrate persists however infiltrate throughout the left lung as well as within the right upper lobe appears to be improved. Persistent right-sided pleural thickening or small effus ion.
[2017-05-04] MEDS: oxyCODONE-APAP 10-325MG 1 EACH TAB PO PRN ×2 (12:42→21:14)
--- NOTE | 2017-05-04 13:12 | P.PN ---
Subjective This is a very pleasant 72-year-old gentleman who follows with Dr. Ruthy Montemayor as his primary care physician. He has a history of rheumatoid arthritis 18 done prednisone 20 mg daily along with methotrexate injections, viral paracardiac diabetes, pancreatitis, coronary artery disease with previous stent placement to the RCA in November 2016. He does have a history of chronic tobacco use but quit in 2011. He had COPD and follows with Dr. Manley in our office for the same. He believes his FEV1 value is approximately 50% of predicted. He presented here on 04/28/2017 with complaints of increasing shortness of breath a few days prior to his arrival. A CT angiogram did not confirm pulmonary embolism. There are small bilateral pleural effusions and patchy basilar atelectasis/infiltrates. There is also a dense right upper lobe masslike consolidation most likely multifocal pneumonia however neoplasm remains in the differential. Does have mild to moderate symmetric changes noted as well. He is seen today in consultation on the regular medical floor. He is awake and alert in no acute distress. He states he is again breathing while easier today as compared to yesterday. He has a loose productive cough of yellowish sputum he does have some pain on inhalation. No hemoptysis. He did have a T-max of 102.8, currently afebrile. Maintaining good O2 saturations in the 90s on room air. She'll white count 16.4 currently 22.6. He has been initiated on bronchodilators, antibiotics in the form of ceftriaxone and azithromycin, Solu-Medrol and Mucinex. The patient is seen again today 05/01/2017 in follow-up on the regular medical floor. He is awake and alert in no acute distress. He is breathing easier today as compared to yesterday. Not quite back to his baseline. He is still dyspneic on minimal exertion. He is maintaining O2 saturations in the low 90s on room air. He is hemodynamically stable. Current temp 99.4. Leukocytosis improving. The patient is seen again today May 02 in follow-up in the regular medical floor. He is awake and alert in no acute distress. He is nearly back to his baseline. He did dip his saturations today high 80s on room air. He is currently in the mid 90s on 2 L/m per nasal cannula. Sputum cultures positive for Katja. White count continues to improve currently at 15.1. He is afebrile. On 05/03/2017 the patient was seen to have some discomfort over the epigastric area. He has been having nausea and he has had 3 bouts of emesis today. Note that the patient was Hospital as for an extensive right lung pneumonia and he seemed to be recovering gradually was doing well until he took a turn to the worse today when he started having gastrointestinal symptoms. He is not known to have any peptic ulcer disease. Lactic acid level is at 1.1. An amylase lipase was checked and it was 6789 respectively. Cardiac enzymes is a been negative. A chest x-ray was repeated today and showed perihilar airspace disease right more than left and there is a small right-sided pleural effusion. The flexible the abdomen showed overall nonobstructive bowel gas pattern. I suspect that the chest x-ray finding is consistent with a component of fluid overload. On 05/01/2017 the patient is feeling better. The patient is less short of breath. He is on diuretics and currently he is on Lasix 40 mg IV every 12 hours. He is a negative fluid balance. He is urinating well. He is still on antibiotics. Chest x-ray shows pulmonary vascular markings have been improved compared to yesterday and there is a right lung pneumonia. No fever. No chills. Hemodynamically stable. Ambulating. No nausea no vomiting no abdominal pain and this gastrointestinal symptoms has subsided. Objective - Vital Signs Vital signs: Vital Signs Temp 98.2 F 05/04/17 07:00 Pulse 78 05/04/17 11:24 Resp 18 05/04/17 07:00 BP 103/67 05/04/17 07:00 Pulse Ox 91 L 05/04/17 07:00 Intake & Output 05/03/17 05/04/17 05/04/17 18:59 06:59 18:59 Intake Total 300 Balance 300 Intake: Oral 300 Other: Voiding Method Toilet Toilet # Voids 1 - Exam GENERAL EXAM: Alert, active, comfortable in no apparent distress. HEAD: Normocephalic. EYES: Normal reaction of pupils, equal size. NOSE: Clear with pink turbinates. THROAT: No erythema or exudates. NECK: No masses, no JVD. CHEST: No chest wall deformity. LUNGS: Show diminished breath sounds bilaterally along with crackles in the mid and lower lung bass and scattered throughout the lung bass bilaterally. CVS: S1 and S2 normal with no audible murmurs, regular rhythm. ABDOMEN: No hepatosplenomegaly, normal bowel sounds, no guarding or rigidity. SPINE: No scoliosis or deformity SKIN: No rashes CENTRAL NERVOUS SYSTEM: No focal deficits, tone is normal in all 4 extremities. Extremities: There is no significant peripheral edema. No clubbing, no cyanosis. Peripheral pulses are intact. - Labs CBC & Chem 7: 05/04/17 07:43 05/04/17 07:41 Labs: Abnormal Lab Results - Last 24 Hours (Table) 05/04/17 05/04/17 Range/Units 07:41 07:43 RDW 15.9 H (11.5-15.5) % Plt Count 685 H (150-450) k/uL Sodium 136 L (137-145) mmol/L BUN 25 H (9-20) mg/dL Glucose 100 H (74-99) mg/dL Assessment and Plan Plan: Impression: #1 Multifocal bilateral pneumonia with dense consolidation in the right upper lobe posteriorly, community acquired, neoplasm does remain in the differential. #2 Acute exacerbation of chronic obstructive pulmonary disease secondary to above. #3 Acute hypoxic respiratory failure secondary to above. #4 Febrile illness secondary to above. #5 Remote history of chronic tobacco dependence, quit in 2011. #6 Rheumatoid arthritis being treated with both methotrexate and daily prednisone. #7 Coronary artery disease with stent placement to the RCA in November 2016. #8 increased nausea and a few episodes of emesis with nonspecific bowel pattern #9 leukocytosis, improving Plan Stop chest x-ray from today shows improvement in the volume status. Continue antibiotics. Continue steroids. Continue diuretics. Repeat chest x-ray in the morning. He needs to be kept in the hospital as long as the patient is still having some difficulty breathing and his chest x-ray still has not shown marked improvement. We'll follow. Likely, however, the patient is improved.
--- NOTE | 2017-05-04 15:40 | P.PN ---
Subjective patient is doing better today. His nausea has resolved. He still complaining of shortness of breath worse on exertion. Objective - Vital Signs Vital signs: Vital Signs Temp 97.7 F 05/04/17 15:00 Pulse 92 05/04/17 15:00 Resp 18 05/04/17 15:00 BP 102/63 05/04/17 15:00 Pulse Ox 91 L 05/04/17 15:00 Intake & Output 05/03/17 05/04/17 05/04/17 18:59 06:59 18:59 Intake Total 300 Balance 300 Intake: Oral 300 Other: Voiding Method Toilet Toilet # Voids 1 5 - Exam General: The patient is awake and alert, in no distress Eye: there is normal conjunctiva bilaterally. Neck: The neck is supple, there is no JVD. Cardiovascular: Normal S1-S2, no S3-S4, no murmurs. Respiratory: Lungs clear to auscultation bilaterally Gastrointestinal: Abdomen is soft, there is mild to moderate tenderness to palpation worse in the epigastric area Musculoskeletal: There is no pedal edema. Neurological:. Speech is normal. Skin: Skin is warm and dry - Labs CBC & Chem 7: 05/04/17 07:43 05/04/17 07:41 Labs: Abnormal Lab Results - Last 24 Hours (Table) 05/04/17 05/04/17 Range/Units 07:41 07:43 RDW 15.9 H (11.5-15.5) % Plt Count 685 H (150-450) k/uL Sodium 136 L (137-145) mmol/L BUN 25 H (9-20) mg/dL Glucose 100 H (74-99) mg/dL Assessment and Plan Plan: 1. Acute COPD exacerbation 2. Right upper lobe consolidations concerning for metastatic lesion and malignancy: Seen and evaluated by pulmonology. Plan to finish treatment with antibiotic and reassess as an outpatient. 3. Community-acquired pneumonia 4. Underlying rheumatoid arthritis on methotrexate and chronic steroid therapy 5. DVT prophylaxis with subcu heparin 6. Acute epigastric pain with nausea and one episode of vomiting. Exact etiology unclear. Patient is managed symptomatically. I would check amylase, lipase, and lactic acids. We'll continue to monitor and may consider imaging and/or surgery evaluation if symptoms get worse. 7. Acute hypoxic respiratory failure home O2 was set up for the patient. Today, I reviewed his medication list and lab work results. Continue bronchodilators and inhaled steroids. Continue antibiotic in the form of IV ceftriaxone and azithromycin. IV diuretics started yesterday we'll continue. Sputum culture pending. Continue supportive care otherwise. Repeat lab work in the morning. Possible discharge tomorrow.
[2017-05-05] MEDS: methylPREDNISolone SOD SUCCI 40 MG/ML 1 ML VIAL IV SCH ×2 (02:11→08:17)
[2017-05-05] MEDS: HYDROmorphone 1 MG/ML 1 ML SYRINGE IVP PRN ×3 (04:09→11:23)
[2017-05-05] MEDS: IPRATROPIUM-ALBUTEROL 3 ML NEB INHALATION SCH ×2 (07:20→12:38)
[2017-05-05] MEDS: BUDESONIDE 0.5 MG/2 ML NEBU INHALATION SCH (07:21)
[2017-05-05 07:42] VITALS: BP 122/72; RESP 20; TEMP 97.5
[2017-05-05] MEDS: guaiFENesin 600 MG TABLET.ER PO SCH (08:17)
[2017-05-05] MEDS: HEPARIN SODIUM,PORCINE 5,000 UNIT/ML 1 ML VIAL SQ SCH (08:17)
[2017-05-05] MEDS: FUROSEMIDE 10 MG/ML 4 ML VIAL IV SCH (08:17)
[2017-05-05 12:39] VITALS: PULSE 88
--- NOTE | 2017-05-05 12:47 | P.PN ---
Subjective This is a very pleasant 72-year-old gentleman who follows with Dr. Ruthy Montemayor as his primary care physician. He has a history of rheumatoid arthritis 18 done prednisone 20 mg daily along with methotrexate injections, viral paracardiac diabetes, pancreatitis, coronary artery disease with previous stent placement to the RCA in November 2016. He does have a history of chronic tobacco use but quit in 2011. He had COPD and follows with Dr. Manley in our office for the same. He believes his FEV1 value is approximately 50% of predicted. He presented here on 04/28/2017 with complaints of increasing shortness of breath a few days prior to his arrival. A CT angiogram did not confirm pulmonary embolism. There are small bilateral pleural effusions and patchy basilar atelectasis/infiltrates. There is also a dense right upper lobe masslike consolidation most likely multifocal pneumonia however neoplasm remains in the differential. Does have mild to moderate symmetric changes noted as well. He is seen today in consultation on the regular medical floor. He is awake and alert in no acute distress. He states he is again breathing while easier today as compared to yesterday. He has a loose productive cough of yellowish sputum he does have some pain on inhalation. No hemoptysis. He did have a T-max of 102.8, currently afebrile. Maintaining good O2 saturations in the 90s on room air. She'll white count 16.4 currently 22.6. He has been initiated on bronchodilators, antibiotics in the form of ceftriaxone and azithromycin, Solu-Medrol and Mucinex. The patient is seen again today 05/01/2017 in follow-up on the regular medical floor. He is awake and alert in no acute distress. He is breathing easier today as compared to yesterday. Not quite back to his baseline. He is still dyspneic on minimal exertion. He is maintaining O2 saturations in the low 90s on room air. He is hemodynamically stable. Current temp 99.4. Leukocytosis improving. The patient is seen again today May 02 in follow-up in the regular medical floor. He is awake and alert in no acute distress. He is nearly back to his baseline. He did dip his saturations today high 80s on room air. He is currently in the mid 90s on 2 L/m per nasal cannula. Sputum cultures positive for Katja. White count continues to improve currently at 15.1. He is afebrile. On 05/03/2017 the patient was seen to have some discomfort over the epigastric area. He has been having nausea and he has had 3 bouts of emesis today. Note that the patient was Hospital as for an extensive right lung pneumonia and he seemed to be recovering gradually was doing well until he took a turn to the worse today when he started having gastrointestinal symptoms. He is not known to have any peptic ulcer disease. Lactic acid level is at 1.1. An amylase lipase was checked and it was 6789 respectively. Cardiac enzymes is a been negative. A chest x-ray was repeated today and showed perihilar airspace disease right more than left and there is a small right-sided pleural effusion. The flexible the abdomen showed overall nonobstructive bowel gas pattern. I suspect that the chest x-ray finding is consistent with a component of fluid overload. On 05/04/2017 the patient is feeling better. The patient is less short of breath. He is on diuretics and currently he is on Lasix 40 mg IV every 12 hours. He is a negative fluid balance. He is urinating well. He is still on antibiotics. Chest x-ray shows pulmonary vascular markings have been improved compared to yesterday and there is a right lung pneumonia. No fever. No chills. Hemodynamically stable. Ambulating. No nausea no vomiting no abdominal pain and this gastrointestinal symptoms has subsided. The patient is seen again today 05/05/2017 in follow-up on the regular medical floor. He is awake and alert in no acute distress. He is nearly quite back to his baseline. He is anxious to go home. He is maintaining good O2 saturations in the 90s on room air. He's been afebrile. No leukocytosis. He has been maintained on bronchodilators, antibiotics in the form of ceftriaxone and azithromycin. He was receiving Lasix 40 mg IV every 12 hours. Objective - Vital Signs Vital signs: Vital Signs Temp 97.5 F L 05/05/17 07:00 Pulse 88 05/05/17 12:38 Resp 20 05/05/17 07:00 BP 122/72 05/05/17 07:00 Pulse Ox 94 L 05/05/17 07:23 Intake & Output 05/04/17 05/05/17 05/05/17 18:59 06:59 18:59 Other: Voiding Method Toilet # Voids 5 1 - Exam GENERAL EXAM: Alert, active, comfortable in no apparent distress. HEAD: Normocephalic. EYES: Normal reaction of pupils, equal size. NOSE: Clear with pink turbinates. THROAT: No erythema or exudates. NECK: No masses, no JVD. CHEST: No chest wall deformity. LUNGS: Equal air entry with faint end expiratory wheeze. Diminished. ABDOMEN: No hepatosplenomegaly, normal bowel sounds, no guarding or rigidity. SPINE: No scoliosis or deformity SKIN: No rashes CENTRAL NERVOUS SYSTEM: No focal deficits, tone is normal in all 4 extremities. Extremities: There is no significant peripheral edema. No clubbing, no cyanosis. Peripheral pulses are intact. - Labs CBC & Chem 7: 05/04/17 07:43 05/04/17 07:41 Assessment and Plan Plan: Impression: #1 Multifocal bilateral pneumonia with dense consolidation in the right upper lobe posteriorly, community acquired, neoplasm does remain in the differential. #2 Acute exacerbation of chronic obstructive pulmonary disease secondary to above. #3 Acute hypoxic respiratory failure secondary to above. #4 Febrile illness secondary to above. #5 Remote history of chronic tobacco dependence, quit in 2011. #6 Rheumatoid arthritis being treated with both methotrexate and daily prednisone. #7 Coronary artery disease with stent placement to the RCA in November 2016. Plan: The patient was seen and evaluated by Dr. Manley. The patient is nearly back to his baseline. He is cleared for discharge from the pulmonary standpoint. We 'll see the patient in 1-2 weeks' time. We'll repeat a chest x-ray then. He' ll complete his course of antibiotics and prednisone taper. He would benefit from continued use of bronchodilators as well. He is encouraged to call sooner with any recurrence of symptoms or any other questions or concerns.
[2017-05-05] MEDS: AZITHROMYCIN 500 MG TAB PO SCH (13:10)
--- NOTE | 2017-05-05 13:23 | P.DS ---
Providers Date of admission: 04/28/17 15:17 Expected date of discharge: 05/05/17 Attending physician: Abad Vaca Consults: 04/29/17 11:53 Consult Physician Routine Consulting Provider: Lisa Manley Consult Reason/Comments: COPD, Mass?? Do you want consulting provider notified?: Yes Primary care physician: Ruthy Montemayor [facility] Course: This is a 72-year-old gentleman who presented to the emergency room originally with worsening shortness of breath and cough. Patient was admitted to the hospital and was treated with IV steroids and IV antibiotic. His overall condition improved throughout his hospital stay. He remained hypoxic and home oxygen was set up. He will finish antibiotic course with 3 more days of Levaquin at home. He will follow-up with his primary care physician and pulmonology as directed. He would need repeat imaging within the next month or 2 to reevaluate the right upper lobe consolidation. 1. Acute COPD exacerbation 2. Right upper lobe consolidations concerning for metastatic lesion and malignancy: Seen and evaluated by pulmonology. Plan to finish treatment with antibiotic and reassess as an outpatient. 3. Community-acquired pneumonia 4. Underlying rheumatoid arthritis on methotrexate and chronic steroid therapy 5. Acute hypoxic respiratory failure home O2 was set up for the patient. Patient Condition at Discharge: Stable Plan - Discharge Summary New Discharge Prescriptions: New Fluticasone/Salmeterol [Advair 250-50 Diskus] 1 inhalation PO BID #1 inhaler guaiFENesin [Mucinex] 1,200 mg PO Q12HR #20 tab Levofloxacin [Levaquin] 500 mg PO DAILY #3 tab predniSONE 40 mg PO DAILY #30 tab Continue oxyCODONE HCL/ACETAMINOPHEN [Percocet 10-325 mg] 1 tab PO QID PRN PRN Reason: Pain Methotrexate Sodium (Pf) [Methotrexate 50 mg/2 ml Vial] 50 mg INJ TU Discontinued predniSONE [predniSONE] 20 mg PO DAILY Discharge Medication List oxyCODONE HCL/ACETAMINOPHEN [Percocet 10-325 mg] 1 tab PO QID PRN 03/13/14 [ History] Methotrexate Sodium (Pf) [Methotrexate 50 mg/2 ml Vial] 50 mg INJ TU 11/14/15 [ History] Fluticasone/Salmeterol [Advair 250-50 Diskus] 1 inhalation PO BID #1 inhaler 07/ 24/17 [Rx] Levofloxacin [Levaquin] 500 mg PO DAILY #3 tab 05/05/17 [Rx] guaiFENesin [Mucinex] 1,200 mg PO Q12HR #20 tab 05/05/17 [Rx] predniSONE 40 mg PO DAILY #30 tab 05/05/17 [Rx] Follow up Appointment(s)/Referral(s): Ruthy Montemayor DO [Primary Care Provider] - 1 Week Patient Instructions/Handouts: Community Acquired Pneumonia (DC) Activity/Diet/Wound Care/Special Instructions: Cardiac diet. Home oxygen being supplied by [facility] in [place]. Concentrator will be delivered to patients home. (Patient to call [facility] when home) [phone]. Discharge Disposition: HOME SELF-CARE
[2017-05-05] MEDS: oxyCODONE-APAP 10-325MG 1 EACH TAB PO PRN (13:25)
== END 2017-05-05 13:55 | disposition home or self-care (01) | DRG 190 ==
LOC: EC 12:02 → 4MS4W 15:17
PROVIDERS: ADMIT Internal Medicine; ATTEND Internal Medicine
DX: J44.0 Chronic obstructive pulmonary disease with (acute) lower respiratory infection (principal); J18.9 Pneumonia, unspecified organism; J96.01 Acute respiratory failure with hypoxia; J90 Pleural effusion, not elsewhere classified; J98.11 Atelectasis; J44.1 Chronic obstructive pulmonary disease with (acute) exacerbation; E11.9 Type 2 diabetes mellitus without complications; I25.10 Atherosclerotic heart disease of native coronary artery without angina pectoris; M06.9 Rheumatoid arthritis, unspecified; Z79.52 Long term (current) use of systemic steroids; Z79.899 Other long term (current) drug therapy; Z87.891 Personal history of nicotine dependence; Z95.5 Presence of coronary angioplasty implant and graft
CPT/HCPCS: 36415; 71020; 71275; 74000; 80048; 80053; 81003; 82150; 82550; 82553; 83605; 83690; 83735; 84484; 85025; 85379; 85610; 85730; 87070; 87205; 93005; 94640; 94760; 96360; 99285

== ENCOUNTER 2017-11-21 01:25 | Observation (INO) | payer MEDICARE ==
[2017-11-21] MEDS ORDERED: IPRATROPIUM-ALBUTEROL 3 ML NEB INHALATION STA (01:52)
[2017-11-21] MEDS ORDERED: HYDROmorphone 0.5 MG/0.5 ML SYRINGE IVP STA ×2 (01:52→05:17)
[2017-11-21] MEDS ORDERED: ONDANSETRON 4 MG/2 ML VIAL IVP STA (01:52)
[2017-11-21 02:11] LABS: Anisocytosis Slight; Basophils % (A) 0 %; Eosinophils # (A) 0.1 k/uL (0-0.7); Eosinophils % (A) 1 %; HGB 17.6 gm/dL (13.0-17.5); Lymphocytes # (A) 1.4 k/uL (1.0-4.8); Lymphocytes % (A) 11 %; MCH 30.3 pg (25.0-35.0); MCHC 31.8 g/dL (31.0-37.0); Mean Platelet Volume 7.4; Monocytes # (A) 0.5 k/uL (0-1.0); Monocytes % (A) 4 %; Neutrophils # (A) 10.2 k/uL (1.3-7.7); Neutrophils % (A) 82 %; Platelet Count 304 k/uL (150-450); RBC 5.79 m/uL (4.30-5.90); RDW 17.4 % (11.5-15.5); WBC 12.3 k/uL (3.8-10.6)
[2017-11-21 02:13] LABS: HCT 55.3 % (39.0-53.0)
[2017-11-21 02:17] LABS: MCV 95.5 fL (80.0-100.0)
[2017-11-21 02:28] LABS: ALT 30 U/L (21-72); AST 22 U/L (17-59); Albumin 3.6 g/dL (3.5-5.0); Alkaline Phosphatase 74 U/L (38-126); Amylase 187 U/L (30-110); Anion Gap 9 mmol/L; Blood Urea Nitrogen 23 mg/dL (9-20); Calcium 8.8 mg/dL (8.4-10.2); Carbon Dioxide 24 mmol/L (22-30); Chloride 104 mmol/L (98-107); Glucose 157 mg/dL (74-99); Lipase 70 U/L (23-300); Potassium 4.1 mmol/L (3.5-5.1); Sodium 137 mmol/L (137-145); Total Bilirubin 0.9 mg/dL (0.2-1.3); Total Protein 6.5 g/dL (6.3-8.2)
--- NOTE | 2017-11-21 03:06 | XR ---
EXAMINATION TYPE: XR chest 1V portable DATE OF EXAM: 11/21/2017 COMPARISON: 05/04/2017 HISTORY: Short of breath TECHNIQUE: Single frontal view of the chest is obtained. FINDINGS: There is coarsening of pulmonary interstitial markings. Heart size is normal there is slig ht blunting of left costophrenic angle. There are chest leads. There is right shoulder prosthesis. IMPRESSION: Pulmonary fibrotic changes. There is decreased pleural thickening on the right lateral c hest wall compared to old exam. No gross heart failure. There is new mild pleural reaction or fluid o n the left side compared to old exam.
--- NOTE | 2017-11-21 03:41 | ED ---
SOB HPI - General Chief Complaint: Shortness of Breath Stated Complaint: EARL/Vomiting Time Seen by Provider: 11/21/17 01:46 Source: patient Mode of arrival: wheelchair Limitations: physical limitation - History of Present Illness Initial Comments: This patient is 72-year-old man who presents with the complaint that he is having shortness of breath and epigastric pain since his stay in the evening. The patient states that he was just relaxing at the time the symptoms started. He indicates the epigastric area and states it feels tight. He does state that he feels like it goes toward his back and then also goes to his left arm. He does have some associated shortness of breath. In addition he had some nausea. He states that previously when he has had pain like this he was told he was having pancreatitis, and that he gets it about once a year. MD Complaint: shortness of breath, chest pain -: hour(s) Radiation: back, left arm Severity: moderate Quality: aching Consistency: constant Improves With: nothing Worsens With: nothing Associated Symptoms: nausea/vomiting - Related Data Home Medications Medication Instructions Recorded Confirmed oxyCODONE HCL/ACETAMINOPHEN 2 tab PO Q6H PRN 03/13/14 11/21/17 [Percocet 10-325 mg] predniSONE 30 mg PO DAILY 09/17/17 11/21/17 Methotrexate Inj (Unknown) 1 dose SQ FR 11/21/17 11/21/17 Allergies Allergy/AdvReac Type Severity Reaction Status Date / Time No Known Allergies Allergy Verified 11/21/17 08:14 Review of Systems ROS Statement: Those systems with pertinent positive or pertinent negative responses have been documented in the HPI. ROS Other: All systems not noted in ROS Statement are negative. Constitutional: Denies: fever, chills, weakness Respiratory: Reports: dyspnea. Denies: cough, wheezes Cardiovascular: Reports: chest pain. Denies: palpitations, orthopnea, edema, syncope Gastrointestinal: Reports: abdominal pain, nausea, vomiting. Denies: constipation, melena, hematochezia Genitourinary: Denies: dysuria, hematuria Musculoskeletal: Denies: back pain Skin: Denies: rash Neurological: Denies: headache, weakness, numbness Past Medical History Past Medical History: Coronary Artery Disease (CAD), COPD, Rheumatoid Arthritis (RA) Additional Past Medical History / Comment(s): Coronary artery disease with previous stent placement in November 2016 History of Any Multi-Drug Resistant Organisms: None Reported Past Surgical History: Heart Catheterization With Stent, Joint Replacement, Orthopedic Surgery Additional Past Surgical History / Comment(s): L KNEE REPLACED, bilateral rotator cuff SHOULDER surgery x2, L ankle surgery after fx. EGD 2013 showed gastritis. Past Anesthesia/Blood Transfusion Reactions: No Reported Reaction Additional Past Anesthesia/Blood Transfusion Reaction / Comment(s): Pt states he has never recieved blood. Date of Last Stent Placement:: unk Past Psychological History: No Psychological Hx Reported Smoking Status: Former smoker Past Alcohol Use History: None Reported Past Drug Use History: None Reported - Past Family History Sister(s) Family Medical History: Cancer Additional Family Medical History / Comment(s): pt's father had ra, mother had 16 children was healthy most of her life age 93 from alzheimers. Mother Family Medical History: Dementia Father Family Medical History: Rheumatoid Arthritis (RA) General Exam Limitations: physical limitation General appearance: alert, in distress (Patient is mildly tachypneic) Head exam: Present: atraumatic, normocephalic Eye exam: Present: normal appearance. Absent: scleral icterus, conjunctival injection ENT exam: Present: normal oropharynx Respiratory exam: Present: normal lung sounds bilaterally, respiratory distress (Mild tachypnea). Absent: wheezes, rales, rhonchi, stridor, chest wall tenderness, accessory muscle use, decreased breath sounds, prolonged expiratory Cardiovascular Exam: Present: regular rate, normal rhythm, normal heart sounds. Absent: systolic murmur, diastolic murmur, rubs, gallop GI/Abdominal exam: Present: soft, normal bowel sounds. Absent: distended, tenderness, guarding, rebound, rigid, mass, pulsatile mass, hernia Extremities exam: Present: normal inspection, normal capillary refill. Absent: pedal edema, calf tenderness Back exam: Present: normal inspection. Absent: CVA tenderness (R), CVA tenderness (L) Neurological exam: Present: alert Skin exam: Present: warm, dry, intact, normal color. Absent: rash Course Vital Signs 11/21/17 11/21/17 11/21/17 01:28 02:15 02:21 Temperature 98.9 F Pulse Rate 83 86 89 Respiratory 26 H 18 Rate Blood Pressure 130/64 O2 Sat by Pulse 95 Oximetry 11/21/17 11/21/17 11/21/17 04:20 05:23 06:23 Temperature 99.5 F Pulse Rate 89 94 87 Respiratory 20 20 20 Rate Blood Pressure 134/84 139/89 144/86 O2 Sat by Pulse 97 99 96 Oximetry Medical Decision Making - Lab Data Result diagrams: 11/21/17 02:00 11/21/17 02:00 Lab Results 11/21/17 11/21/17 11/21/17 Range/Units 02:00 02:00 02:00 WBC 12.3 H (3.8-10.6) k/uL RBC 5.79 (4.30-5.90) m/uL Hgb 17.6 H (13.0-17.5) gm/dL Hct 55.3 H (39.0-53.0) % MCV 95.5 D (80.0-100.0) fL MCH 30.3 (25.0-35.0) pg MCHC 31.8 (31.0-37.0) g/dL RDW 17.4 H (11.5-15.5) % Plt Count 304 (150-450) k/uL Neutrophils % 82 % Lymphocytes % 11 % Monocytes % 4 % Eosinophils % 1 % Basophils % 0 % Neutrophils # 10.2 H (1.3-7.7) k/uL Lymphocytes # 1.4 (1.0-4.8) k/uL Monocytes # 0.5 (0-1.0) k/uL Eosinophils # 0.1 (0-0.7) k/uL Basophils # 0.0 (0-0.2) k/uL Anisocytosis Slight D-Dimer (<0.60) mg/L FEU Sodium 137 (137-145) mmol/L Potassium 4.1 (3.5-5.1) mmol/L Chloride 104 (98-107) mmol/L Carbon Dioxide 24 (22-30) mmol/L Anion Gap 9 mmol/L BUN 23 H (9-20) mg/dL Creatinine 0.80 (0.66-1.25) mg/dL Est GFR (MDRD) Af Amer >60 (>60 ml/min/1.73 sqM) Est GFR (MDRD) Non-Af >60 (>60 ml/min/1.73 sqM) Glucose 157 H (74-99) mg/dL Calcium 8.8 (8.4-10.2) mg/dL Total Bilirubin 0.9 (0.2-1.3) mg/dL AST 22 (17-59) U/L ALT 30 (21-72) U/L Alkaline Phosphatase 74 (38-126) U/L Troponin I <0.012 (0.000-0.034) ng/mL NT-Pro-B Natriuret Pep pg/mL Total Protein 6.5 (6.3-8.2) g/dL Albumin 3.6 (3.5-5.0) g/dL Amylase 187 H (30-110) U/L Lipase 70 (23-300) U/L Urine Color Urine Appearance (Clear) Urine pH (5.0-8.0) Ur Specific [place] (1.001-1.035) Urine Protein (Negative) Urine Glucose (UA) (Negative) Urine Ketones (Negative) Urine Blood (Negative) Urine Nitrite (Negative) Urine Bilirubin (Negative) Urine Urobilinogen (<2.0) mg/dL Ur Leukocyte Esterase (Negative) Urine RBC (0-5) /hpf Urine WBC (0-5) /hpf Amorphous Sediment (None) /hpf Urine Mucus (None) /hpf 11/21/17 11/21/17 11/21/17 Range/Units 02:00 02:00 03:04 WBC (3.8-10.6) k/uL RBC (4.30-5.90) m/uL Hgb (13.0-17.5) gm/dL Hct (39.0-53.0) % MCV (80.0-100.0) fL MCH (25.0-35.0) pg MCHC (31.0-37.0) g/dL RDW (11.5-15.5) % Plt Count (150-450) k/uL Neutrophils % % Lymphocytes % % Monocytes % % Eosinophils % % Basophils % % Neutrophils # (1.3-7.7) k/uL Lymphocytes # (1.0-4.8) k/uL Monocytes # (0-1.0) k/uL Eosinophils # (0-0.7) k/uL Basophils # (0-0.2) k/uL Anisocytosis D-Dimer 2.35 H (<0.60) mg/L FEU Sodium (137-145) mmol/L Potassium (3.5-5.1) mmol/L Chloride (98-107) mmol/L Carbon Dioxide (22-30) mmol/L Anion Gap mmol/L BUN (9-20) mg/dL Creatinine (0.66-1.25) mg/dL Est GFR (MDRD) Af Amer (>60 ml/min/1.73 sqM) Est GFR (MDRD) Non-Af (>60 ml/min/1.73 sqM) Glucose (74-99) mg/dL Calcium (8.4-10.2) mg/dL Total Bilirubin (0.2-1.3) mg/dL AST (17-59) U/L ALT (21-72) U/L Alkaline Phosphatase (38-126) U/L Troponin I (0.000-0.034) ng/mL NT-Pro-B Natriuret Pep 41 pg/mL Total Protein (6.3-8.2) g/dL Albumin (3.5-5.0) g/dL Amylase (30-110) U/L Lipase (23-300) U/L Urine Color Yellow Urine Appearance Clear (Clear) Urine pH 5.0 (5.0-8.0) Ur Specific [place] 1.026 (1.001-1.035) Urine Protein Trace H (Negative) Urine Glucose (UA) Negative (Negative) Urine Ketones Negative (Negative) Urine Blood Small H (Negative) Urine Nitrite Negative (Negative) Urine Bilirubin Negative (Negative) Urine Urobilinogen <2.0 (<2.0) mg/dL Ur Leukocyte Esterase Negative (Negative) Urine RBC 4 (0-5) /hpf Urine WBC 2 (0-5) /hpf Amorphous Sediment Rare H (None) /hpf Urine Mucus Moderate H (None) /hpf - EKG Data -: EKG Interpreted by Mn EKG shows normal: sinus rhythm, axis (normal), intervals (normal), QRS complexes (normal), ST-T waves (normal) Rate: normal (Rate approximately 79 bpm) Interpretation: other (There is biatrial enlargement) Disposition Clinical Impression: Chest pain Disposition: ADMITTED IP TO THIS [facility] Condition: Fair
[2017-11-21 03:44] LABS: Amorphous Sediment,Urine Rare /hpf; Appearance,Urine Clear (Clear); Bilirubin,Urine Negative (Negative); Blood,Urine Small (Negative); Color,Urine Yellow; Glucose,Urine (UA) Negative (Negative); Ketones,Urine Negative (Negative); Leukocyte Esterase,Urine Negative (Negative); Mucus,Urine Moderate /hpf; Nitrite,Urine Negative (Negative); Protein,Urine Trace (Negative); RBC,Urine 4 /hpf (0-5); Specific Gravity,Urine 1.026 (1.001-1.035); Urobilinogen,Urine <2.0 mg/dL (<2.0); WBC,Urine 2 /hpf (0-5)
[2017-11-21] MEDS ORDERED: RX INFO: IV CONTRAST WAS GIVEN 1 EACH MISC MISCELLANE PRN (04:19)
--- NOTE | 2017-11-21 05:18 | CT ---
EXAM: CT Angiography Chest With Intravenous Contrast CLINICAL HISTORY: Reason: Pain TECHNIQUE: Axial computed tomographic angiography images of the chest with intravenous contrast using pulmonary embolism protocol. DLP is 365.3 mGy- cm. This CT exam was performed using one or more of the following dose reduction techniques: automated exposure control, adjustment of the mA and/or kV according to patient size, and/or use of iterative reconstruction technique. MIP reconstructed images were created and reviewed. COMPARISON: CTA chest dated 04/28/2017. FINDINGS: Pulmonary arteries: Unremarkable. No evidence of pulmonary embolism. Aorta: No acute findings. No thoracic aortic aneurysm. Lungs: Moderate centrilobular and paraseptal emphysema. Bronchiectasis and bronchial wall thickening. Trace bilateral pleural effusions and bibasilar atelectasis. No mass. Mild fluid in the right major and minor fissures. Pleural space: See above. Heart: Mild coronary artery calcification. No significant pericardial effusion. No evidence of RV dysfunction. Bones/joints: No acute fracture. No dislocation. Soft tissues: Unremarkable. Lymph nodes: Unremarkable. No enlarged lymph nodes. Liver: Unchanged 3.1 cm simple appearing cyst in the left hepatic lobe. Spleen: Multiple splenic calcifications. These likely represent granulomas. IMPRESSION: No evidence of pulmonary embolism or acute cardiopulmonary process.
[2017-11-21] MEDS ORDERED: NITROGLYCERIN SL TABS 0.4 MG TAB SUBLINGUAL PRN (05:55)
[2017-11-21] MEDS ORDERED: ALBUTEROL NEBULIZED 2.5 MG/3 ML INHALATION PRN (05:57)
[2017-11-21] MEDS ORDERED: IBUPROFEN 600 MG TAB PO PRN (05:57)
[2017-11-21] MEDS ORDERED: oxyCODONE-APAP 10-325MG 1 EACH TAB PO PRN (05:57)
[2017-11-21] MEDS ORDERED: ONDANSETRON ODT 4 MG TAB PO PRN (05:57)
[2017-11-21 07:33] LABS: Creatine Kinase 32 U/L (55-170)
[2017-11-21 07:46] LABS: Troponin I <0.012 ng/mL (0.000-0.034)
[2017-11-21] MEDS ORDERED: SYMBICORT 80-4.5 MCG INHALER INHALATION SCH (08:00)
[2017-11-21] MEDS ORDERED: FAMOTIDINE 20 MG TAB PO SCH (09:00)
[2017-11-21] MEDS ORDERED: predniSONE 10 MG TAB PO SCH (09:00)
[2017-11-21 12:01] VITALS: BP 147/89; PULSE 110; RESP 16; TEMP 99.4
--- NOTE | 2017-11-21 12:24 | P.HPIM ---
History of Present Illness H&P Date: 11/21/17 Chief Complaint: Epigastric pain This is a 72-year-old male, patient of [facility]. He has a known past medical history of coronary artery disease with cardiac stent placed in November 2016, rheumatoid arthritis, COPD, gastritis and an episode of acute pancreatitis exact etiology unclear. Patient reports yesterday he had one episode of vomiting and diarrhea and then started having epigastric pain. He came into the emergency room for evaluation. There were concerns about possible chest pain in the emergency room. Troponins were negative 2 sets EKG normal sinus rhythm and cardiology was consulted he did have elevated d-dimer a CT of the chest was completed showing no evidence of a PE in no acute changes. White count elevated at 12.3. Patient's symptoms are improving. LFTs are normal lipase was normal amylase mildly elevated at 187. Patient takes Percocets for his abdominal pain at home. Is currently received IV Dilaudid. Last EGD was in March 2014 that showed gastritis. Patient reports that he did not take any PPI or H2 lisa. He has been receiving Pepcid here in the hospital. Symptoms are improving. Awaiting cardiology consult. He does admit having some shortness of breath with the epigastric pain. Again symptoms results. Denies any fever or chills or sweats. Denies any further episodes of vomiting or diarrhea. Denies any ringing with urination. Patient is not very forthcoming with information. He does reports no alcohol use and does not know what caused his one episode of pancreatitis. Still of the gallbladder. Reports no history of gallstones. Review of Systems Please refer to HPI otherwise unremarkable Past Medical History Past Medical History: Coronary Artery Disease (CAD), COPD, GERD/Reflux, Pneumonia, Rheumatoid Arthritis (RA) Additional Past Medical History / Comment(s): Pancreatitis couple times a year, 2012 past medical record documents viral pericarditis but pt denies, gastritis, uses home O2 at only. History of Any Multi-Drug Resistant Organisms: None Reported Past Surgical History: Heart Catheterization With Stent, Joint Replacement, Orthopedic Surgery Additional Past Surgical History / Comment(s): Total L knee arthroplasty, R total shoulder, , L ankle ORIF d/t fracture, EGD Past Anesthesia/Blood Transfusion Reactions: No Reported Reaction Additional Past Anesthesia/Blood Transfusion Reaction / Comment(s): Pt states he has never recieved blood. Date of Last Stent Placement:: 12/10/16 Smoking Status: Former smoker - Past Family History Sister(s) Family Medical History: Cancer Additional Family Medical History / Comment(s): pt's father had ra, mother had 16 children was healthy most of her life age 93 from alzheimers. Mother Family Medical History: Dementia Father Family Medical History: Rheumatoid Arthritis (RA) Medications and Allergies Home Medications Medication Instructions Recorded Confirmed Type oxyCODONE HCL/ACETAMINOPHEN 2 tab PO Q6H PRN 03/13/14 11/21/17 History [Percocet 10-325 mg] predniSONE 30 mg PO DAILY 09/17/17 11/21/17 History Methotrexate Inj (Unknown) 1 dose SQ FR 11/21/17 11/21/17 History Allergies Allergy/AdvReac Type Severity Reaction Status Date / Time No Known Allergies Allergy Verified 11/21/17 08:14 Physical Exam Vitals: Vital Signs Temp Pulse Pulse Resp BP BP Pulse Ox 11/21/17 11:59 99.4 F 110 H 16 147/89 95 11/21/17 08:05 84 11/21/17 07:57 80 11/21/17 06:56 98.8 F 95 18 141/88 97 11/21/17 06:23 87 20 144/86 96 11/21/17 05:23 94 20 139/89 99 11/21/17 04:20 99.5 F 89 20 134/84 97 11/21/17 02:21 89 18 11/21/17 02:15 86 11/21/17 01:28 98.9 F 83 26 H 130/64 95 Intake and Output 11/20/17 11/21/17 11/21/17 22:59 06:59 14:59 Other: Weight 83.915 kg Head normocephalic Neck supple Lungs clear to auscultation bilaterally no wheezing or crackles Heart regular rate and rhythm S1-S2, no rub or gallop Abdomen is soft nontender nondistended positive bowel sounds no hepatosplenomegaly Extremities no edema Neuro alert and orientated to 3 Results CBC & Chem 7: 11/21/17 02:00 11/21/17 02:00 Labs: Abnormal Lab Results - Last 24 Hours (Table) 11/21/17 11/21/17 11/21/17 Range/Units 02:00 02:00 02:00 WBC 12.3 H (3.8-10.6) k/uL Hgb 17.6 H (13.0-17.5) gm/dL Hct 55.3 H (39.0-53.0) % RDW 17.4 H (11.5-15.5) % Neutrophils # 10.2 H (1.3-7.7) k/uL D-Dimer 2.35 H (<0.60) mg/L FEU BUN 23 H (9-20) mg/dL Glucose 157 H (74-99) mg/dL Total Creatine Kinase (55-170) U/L Amylase 187 H (30-110) U/L Urine Protein (Negative) Urine Blood (Negative) Amorphous Sediment (None) /hpf Urine Mucus (None) /hpf 11/21/17 11/21/17 Range/Units 03:04 06:42 WBC (3.8-10.6) k/uL Hgb (13.0-17.5) gm/dL Hct (39.0-53.0) % RDW (11.5-15.5) % Neutrophils # (1.3-7.7) k/uL D-Dimer (<0.60) mg/L FEU BUN (9-20) mg/dL Glucose (74-99) mg/dL Total Creatine Kinase 32 L (55-170) U/L Amylase (30-110) U/L Urine Protein Trace H (Negative) Urine Blood Small H (Negative) Amorphous Sediment Rare H (None) /hpf Urine Mucus Moderate H (None) /hpf Thrombosis Risk Factor Assmnt - Choose All That Apply Any of the Below Risk Factors Present?: Yes Each Factor Represents 1 point: Abnormal pulmonary function (COPD), Obesity ( BMI >25) Other Risk Factors: Yes Each Risk Factor Represents 2 Points: Age 61-74 years Other congenital or acquired thrombophilia - If yes, enter type in comment: No Thrombosis Risk Factor Assessment Total Risk Factor Score: 4 Thrombosis Risk Factor Assessment Level: Moderate Risk Assessment and Plan Assessment: 1. Epigastric pain : Cardiac workup in progress. Troponins were negative 2 EKG normal sinus rhythm. Patient's last heart catheterization November 2016 with 1 stent. Cardiology has been consulted awaiting their further recommendations 2. Episode of vomiting and diarrhea: Now resolved. May be a contributor factor to patient's epigastric pain. Continue with the Pepcid. Amylase 187 lipase normal and LFTs normal 3. Elevated d-dimer on admission. Computed tomography scan of the chest negative for PE. 4. History of rheumatoid arthritis 5. History of gastritis and not on any medications for 6. Prior history of pancreatitis exact etiology unknown Anticipate possible discharge later this afternoon if patient tolerates diet and cleared by cardiology Time with Patient: Greater than 30 (Greater than 50% of the total time spent in counseling and coordination of care.I performed an examination of the patient and discussed their management with the physician [employer] Cleaner. I have reviewed the Physician Acid Tank Cleaner's notes and agree with the documented findings and plan of care)
--- NOTE | 2017-11-21 12:39 | P.CRDCN ---
History of Present Illness Consult date: 11/21/17 Consult reason: chest pain History of present illness: Mr. Sanabria is a pleasant 72-year-old male past medical history significant for coronary artery disease with stent to mid RCA 11/2106, COPD, gastroesophageal relflux disease and frequent episodes of pancreatitis. He quite smoking in 2011 and denies alcohol use. He sees Dr. Draper in the office. We have been asked to see him in consultation for chest pain. At the time of my exam he is seen resting comfortably in bed with at the bedside. He states he never had chest pain. The pain is epigastric and burning/churning sensation associated with nausea, shortness of breath, vomiting and diarrhea for the last 2-3 days. His states he has been weak and fatigued lately as well. He is not very forthcoming with information, mostly comes from his . Although he is very adament he has not had any chest pain. He denies palpitations, dizziness , diaphoresis or near syncope. He also states he doesn't take any of his prescribed heart medications. Apparently he took them for approximately 3 months after his procedure and had no refills left so he assumed he was done taking them. Last documented he was taking imdur 30 mg, plavix 75mg, tenormin 25 mg and lipitor 40 mg daily. EKG on arrival reveals sinus mechanism with no acute ST or T-wave abnormalities. Chest xray shows pulmonary fibrotic changes with new pleural fluid left side. CTA negative for PE. Laboratory data reviewed, hemoglobin 17.6, platelets 304, WBC 12.3, d-dimer 2.35 , creatinine 0.8, potassium 4.1, cardiac enzymes negative 2, proBNP 41, amylase 187. He currently takes no cardiac medications. Cardiac catheterization was reviewed from 11/2016. RCA 80-90% stenosis, stent placed; LM free of stenosis, LAD mild-moderate plaque at mid portion, circumflex free of disease. Review of Systems At the time of my exam: CONSTITUTIONAL: Denies fever. Denies chills. EYES: Denies blurred vision. Denies vision changes. Denies eye pain. EARS, NOSE, MOUTH & THROAT: Denies headache. Denies sore throat. Denies ear pain. CARDIOVASCULAR: Denies chest pain. Denies orthopnea. Denies PND. Denies palpitations. RESPIRATORY: Denies cough. Complains of shortness of breath. GASTROINTESTINAL: Complains of abdominal pain, diarrhea, nausea and vomiting. Denies constipation. MUSCULOSKELETAL: Denies myalgias. INTEGUMENTARY: Denies pruitis. Denies rash. NEUROLOGIC: Denies numbness. Denies tingling. Denies weakness. PSYCHIATRIC: Denies anxiety. Denies depression. ENDOCRINE: Denies fatigue. Denies weight change. Denies polydipsia. Denies polyurina. GENITOURINARY: Denies burning, hematuria or urgency with micturation. HEMATOLOGIC: Denies history of anemia. Denies bleeding. Past Medical History Past Medical History: Coronary Artery Disease (CAD), COPD, GERD/Reflux, Pneumonia, Rheumatoid Arthritis (RA) Additional Past Medical History / Comment(s): Pancreatitis couple times a year, 2012 past medical record documents viral pericarditis but pt denies, gastritis, uses home O2 at HS only. History of Any Multi-Drug Resistant Organisms: None Reported Past Surgical History: Heart Catheterization With Stent, Joint Replacement, Orthopedic Surgery Additional Past Surgical History / Comment(s): Total L knee arthroplasty, R total shoulder, , L ankle ORIF d/t fracture, EGD Past Anesthesia/Blood Transfusion Reactions: No Reported Reaction Additional Past Anesthesia/Blood Transfusion Reaction / Comment(s): Pt states he has never recieved blood. Date of Last Stent Placement:: 12/10/16 Smoking Status: Former smoker - Past Family History Sister(s) Family Medical History: Cancer Additional Family Medical History / Comment(s): pt's father had ra, mother had 16 children was healthy most of her life age 93 from alzheimers. Mother Family Medical History: Dementia Father Family Medical History: Rheumatoid Arthritis (RA) Medications and Allergies Home Medications Medication Instructions Recorded Confirmed Type oxyCODONE HCL/ACETAMINOPHEN 2 tab PO Q6H PRN 03/13/14 11/21/17 History [Percocet 10-325 mg] predniSONE 30 mg PO DAILY 09/17/17 11/21/17 History Aspirin 81 mg PO DAILY chew 11/21/17 Rx Atenolol [Tenormin] 25 mg PO DAILY #30 tab 11/21/17 Rx Atorvastatin [Lipitor] 40 mg PO HS #30 tab 11/21/17 Rx Methotrexate Inj (Unknown) 1 dose SQ FR 11/21/17 11/21/17 History Allergies Allergy/AdvReac Type Severity Reaction Status Date / Time No Known Allergies Allergy Verified 11/21/17 08:14 Physical Exam Vitals: Vital Signs Temp Pulse Pulse Resp BP BP Pulse Ox 11/21/17 08:05 84 11/21/17 07:57 80 11/21/17 06:56 98.8 F 95 18 141/88 97 11/21/17 06:23 87 20 144/86 96 11/21/17 05:23 94 20 139/89 99 11/21/17 04:20 99.5 F 89 20 134/84 97 11/21/17 02:21 89 18 11/21/17 02:15 86 11/21/17 01:28 98.9 F 83 26 H 130/64 95 Intake and Output 11/20/17 11/21/17 11/21/17 22:59 06:59 14:59 Other: Weight 83.915 kg Blood presure 141/88 heart rate 80 afebrile GENERAL: This is a 72-year-old male in no apparent distress at the time of my examination. HEENT: Head is atraumatic, normocephalic. Pupils are equal, round. Sclerae anicteric. Conjunctivae are clear. Mucous membranes of the mouth are moist. Neck is supple. There is no jugular venous distention. No carotid bruit is heard. LUNGS: Course lung sounds with faint wheezes. No rales or rhonchi. No chest wall tenderness is noted on palpation or with deep breathing. HEART: Regular rate and rhythm without murmurs, rubs or gallops. S1 and S2 heard. ABDOMEN: Soft, nontender. Bowel sounds are heard. No organomegaly noted. EXTREMITIES: No evidence of peripheral edema and no calf tenderness noted. VASCULAR: Radial and dorsalis pedis pulses palpated, no evidence of clubbing. NEUROLOGIC: Patient is awake, alert and oriented x3. Results 11/21/17 02:00 11/21/17 02:00 Cardiac Enzymes 11/21/17 11/21/17 11/21/17 Range/Units 02:00 02:00 06:42 AST 22 (17-59) U/L CK-MB (CK-2) 1.0 (0.0-2.4) ng/mL Troponin I <0.012 <0.012 (0.000-0.034) ng/mL CBC 11/21/17 Range/Units 02:00 WBC 12.3 H (3.8-10.6) k/uL RBC 5.79 (4.30-5.90) m/uL Hgb 17.6 H (13.0-17.5) gm/dL Hct 55.3 H (39.0-53.0) % Plt Count 304 (150-450) k/uL Comprehensive Metabolic Panel 11/21/17 Range/Units 02:00 Sodium 137 (137-145) mmol/L Potassium 4.1 (3.5-5.1) mmol/L Chloride 104 (98-107) mmol/L Carbon Dioxide 24 (22-30) mmol/L BUN 23 H (9-20) mg/dL Creatinine 0.80 (0.66-1.25) mg/dL Glucose 157 H (74-99) mg/dL Calcium 8.8 (8.4-10.2) mg/dL AST 22 (17-59) U/L ALT 30 (21-72) U/L Alkaline Phosphatase 74 (38-126) U/L Total Protein 6.5 (6.3-8.2) g/dL Albumin 3.6 (3.5-5.0) g/dL Current Medications Generic Name Dose Route Start Last Admin Trade Name Freq PRN Reason Stop Dose Admin Albuterol Sulfate 2.5 mg 11/21/17 05:57 11/21/17 07:56 Ventolin Nebulized INHALATION 2.5 mg RT-QID PRN Administration Shortness Of Breath Aspirin 325 mg 11/22/17 09:00 Aspirin PO DAILY [facility] Budesonide/Formoterol Fumarate 2 puff 11/21/17 08:00 11/21/17 07:56 Symbicort 80-4.5 Mcg Inhaler INHALATION 2 puff RT-BID SURYA Administration Famotidine 20 mg 11/21/17 09:00 Pepcid PO BID SURYA Ibuprofen 600 mg 11/21/17 05:57 Motrin PO Q6HR PRN Mild Pain Miscellaneous Information 1 each 11/21/17 04:19 11/21/17 05:23 Rx Info: Iv Contrast Was Given MISCELLANE 11/23/17 04:19 1 each DAILY PRN Administration Per Protocol Nitroglycerin 0.4 mg 11/21/17 05:55 Nitrostat SUBLINGUAL Q5M PRN Chest Pain Ondansetron HCl 4 mg 11/21/17 05:57 Zofran Odt PO Q8HR PRN Nausea Oxycodone/Acetaminophen 1 each 11/21/17 05:57 Percocet 10-325 PO Q4H PRN Moderate-severe Pain Prednisone 30 mg 11/21/17 09:00 PO DAILY SURYA Intake and Output 11/20/17 11/21/17 11/21/17 22:59 06:59 14:59 Other: Weight 83.915 kg 11/21/17 02:00 11/21/17 02:00 Assessment and Plan Assessment: ASSESSMENT 1. Epigastric/abdominal pain with nausea, vomiting and diarrhea with elevated amylase 2. No EKG evidence of acute ischemia as well as negative cardiac enzymes 3. History of coronary artery disease with stent to mid-RCA 11/2016 4. History of dyslipidemia, not taking prescribed atorvastatin 5. Acute pancreatitis. 6. History of COPD 7. Non-compliance PLAN An acute coronary event has been rule out with no EKG changes indicative of ischemia and negative cardiac enzymes. Continue with medical management of pancreatitis. No further cardiac work-up required at this time. Resume aspirin 81 mg daily, atenolol and atorvastatin as was previously prescribed. He is agreeable and understands the importance of these medications with his heart disease. No need for plavix since it has been 1-year since his stent and no symptoms of chest pain he can recall so no imdur at this time. This can be reassessed as an outpatient. Follow-up with Dr. Draper at next schedule appointment he has coming up the end of this month. Thank you kindly for this consultation. Nurse Practitioner note has been reviewed, I agree with a documented findings and plan of care. Patient was seen and examined.
[2017-11-21] MEDS ORDERED: ATENOLOL 25 MG TAB PO SCH (12:45)
[2017-11-21 13:18] LABS: Creatine Kinase 38 U/L (55-170)
[2017-11-21 13:31] LABS: Creatine Kinase MB 0.8 ng/mL (0.0-2.4); Troponin I <0.012 ng/mL (0.000-0.034)
--- NOTE | 2017-11-21 14:25 | P.DS ---
Providers Date of admission: 11/21/17 05:57 Expected date of discharge: 11/21/17 Attending physician: Abad Vaca Consults: 11/21/17 05:55 Consult Physician Routine Consulting Provider: Dexter Tapia Consult Reason/Comments: chest pain Do you want consulting provider notified?: Yes Primary care physician: Ruthy [facility] Course: Discharge diagnosis 1. Epigastric pain : Cardiac workup in progress. Troponins were negative 2 EKG normal sinus rhythm. Patient's last heart catheterization November 2016 with 1 stent. Cardiology has been consulted awaiting their further recommendations 2. Episode of vomiting and diarrhea: Now resolved. May be a contributor factor to patient's epigastric pain. Continue with the Pepcid. Amylase 187 lipase normal and LFTs normal 3. Elevated d-dimer on admission. Computed tomography scan of the chest negative for PE. 4. History of rheumatoid arthritis 5. History of gastritis and not on any medications for 6. Prior history of pancreatitis exact etiology unknown Hospital course This is a 72-year-old male, patient of [facility]. He has a known past medical history of coronary artery disease with cardiac stent placed in November 2016, rheumatoid arthritis, COPD, gastritis and an episode of acute pancreatitis exact etiology unclear. Patient reports yesterday he had one episode of vomiting and diarrhea and then started having epigastric pain. He came into the emergency room for evaluation. There were concerns about possible chest pain in the emergency room. Troponins were negative 2 sets EKG normal sinus rhythm and cardiology was consulted he did have elevated d-dimer a CT of the chest was completed showing no evidence of a PE in no acute changes. White count elevated at 12.3. Patient's symptoms are improving. LFTs are normal lipase was normal amylase mildly elevated at 187. Patient takes Percocets for his abdominal pain at home. Is currently received IV Dilaudid. Last EGD was in March 2014 that showed gastritis. Patient reports that he did not take any PPI or H2 lisa. He has been receiving Pepcid here in the hospital. Symptoms are improving. Awaiting cardiology consult. He does admit having some shortness of breath with the epigastric pain. Again symptoms results. Denies any fever or chills or sweats. Denies any further episodes of vomiting or diarrhea. Denies any ringing with urination. Patient is not very forthcoming with information. He does reports no alcohol use and does not know what caused his one episode of pancreatitis. Still of the gallbladder. Reports no history of gallstones. Cardiology cleared patient for discharge. Cardiac workup negative. Patient's epigastric pain was likely aggravated by the one episode of vomiting. Now resolved. No surgical findings and lab work. Patient will be given a prescription for Protonix. He does have a history of gastritis. I performed an examination of the patient and discussed their management with the physician [employer] Furn[employer]. I have reviewed the Physician Antique Furniture Reproducer's notes and agree with the documented findings and plan of care Patient Condition at Discharge: Stable Plan - Discharge Summary Discharge Rx Participant: No New Discharge Prescriptions: New Aspirin 81 mg PO DAILY chew Atenolol [Tenormin] 25 mg PO DAILY #30 tab Atorvastatin [Lipitor] 40 mg PO HS #30 tab Pantoprazole Sodium [Protonix] 40 mg PO DAILY #30 tablet. Continue oxyCODONE HCL/ACETAMINOPHEN [Percocet 10-325 mg] 2 tab PO Q6H PRN PRN Reason: Pain predniSONE 30 mg PO DAILY Methotrexate Inj (Unknown) 1 dose SQ FR Discharge Medication List oxyCODONE HCL/ACETAMINOPHEN [Percocet 10-325 mg] 2 tab PO Q6H PRN 03/13/14 [ History] predniSONE 30 mg PO DAILY 09/17/17 [History] Aspirin 81 mg PO DAILY chew 11/21/17 [Rx] Atenolol [Tenormin] 25 mg PO DAILY #30 tab 11/21/17 [Rx] Atorvastatin [Lipitor] 40 mg PO HS #30 tab 11/21/17 [Rx] Methotrexate Inj (Unknown) 1 dose SQ FR 11/21/17 [History] Pantoprazole Sodium [Protonix] 40 mg PO DAILY #30 tablet. 11/21/17 [Rx] Follow up Appointment(s)/Referral(s): Chepe Draper MD [STAFF PHYSICIAN] - 12/04/17 (He already has a scheduled appointment with Dr. Draper. ) Ruthy Montemayor DO [Primary Care Provider] - 1 Week Activity/Diet/Wound Care/Special Instructions: Diet: cardiac Activity: as tolerated Discharge Disposition: HOME SELF-CARE
[2017-11-21] MEDS ORDERED: ATORVASTATIN 40 MG TAB PO SCH (21:00)
[2017-11-22] MEDS ORDERED: ASPIRIN 81 MG PO SCH (09:00)
[2017-11-22] MEDS ORDERED: ASPIRIN 325 MG TAB PO SCH (09:00)
== END 2017-11-21 15:49 | disposition home or self-care (01) ==
LOC: EC 01:25 → 3OBS 05:57
PROVIDERS: ADMIT Internal Medicine; ATTEND Internal Medicine
DX: R10.13 Epigastric pain (principal); R11.2 Nausea with vomiting, unspecified; R19.7 Diarrhea, unspecified; R10.9 Unspecified abdominal pain; R79.89 Other specified abnormal findings of blood chemistry; M06.9 Rheumatoid arthritis, unspecified; K29.70 Gastritis, unspecified, without bleeding; R74.8 Abnormal levels of other serum enzymes; R06.02 Shortness of breath; R53.1 Weakness; D72.829 Elevated white blood cell count, unspecified; K85.90 Acute pancreatitis without necrosis or infection, unspecified; I25.10 Atherosclerotic heart disease of native coronary artery without angina pectoris; J44.9 Chronic obstructive pulmonary disease, unspecified; K21.9 Gastro-esophageal reflux disease without esophagitis; E78.5 Hyperlipidemia, unspecified; E66.9 Obesity, unspecified; Z68.29 Body mass index [BMI] 29.0-29.9, adult; Z91.14 Patient's other noncompliance with medication regimen; Z99.81 Dependence on supplemental oxygen; Z87.891 Personal history of nicotine dependence; Z95.5 Presence of coronary angioplasty implant and graft; Z79.82 Long term (current) use of aspirin; Z79.899 Other long term (current) drug therapy; Z79.52 Long term (current) use of systemic steroids; Z82.0 Family history of epilepsy and other diseases of the nervous system
CPT/HCPCS: 96374; 96375 ×2; 96376 ×2; 99285; 36415; 94640 ×2; 85379; 83880; 80053; 82150; 82550; 82553; 83690; 84484; 85025; 81001; 71045; 71275; G0378; Q9967; J2405; J7512; J1170; 93005

== ENCOUNTER 2018-01-10 08:41 | Emergency (ER) | payer MEDICARE ==
[2018-01-10] MEDS ORDERED: SODIUM CHLORIDE 0.9% 1,000 ML IV STA (08:56)
[2018-01-10] MEDS ORDERED: ONDANSETRON 4 MG/2 ML VIAL IVP STA (08:57)
[2018-01-10] MEDS ORDERED: MAG HYDROX/AL HYDROX/SIMETH 30 ML, HYOSCYAMINE ELIXIR 10 ML, CIMETIDINE HCL 300 MG, LID... PO STA ×4 (08:57)
[2018-01-10] MEDS ORDERED: FAMOTIDINE 20 MG/2 ML VIAL IV STA (08:57)
[2018-01-10] MEDS ORDERED: RX INFO: IV CONTRAST WAS GIVEN 1 EACH MISC MISCELLANE PRN (08:57)
--- NOTE | 2018-01-10 09:01 | ED ---
General Adult HPI - General Chief complaint: Abdominal Pain Stated complaint: abdominal pain Time Seen by Provider: 01/10/18 08:51 Source: patient, RN notes reviewed Mode of arrival: wheelchair Limitations: no limitations - History of Present Illness Initial comments: 72-year-old male presents to the emergency department with a chief complaint of flareup of abdominal pain. Patient has a history of abdominal pain. He states that his pain has flared up again. This flares up about 3 times year. They have not found a source of that. He states he's had nausea vomiting no coffee ground emesis no blood in the vomit. He has had no diarrhea. No change in eating or drinking. He states that she stepped punch type pain and he points to the epigastric area of his abdomen. He denies any other symptoms at this time. He denies any fever or chills.Patient denies any recent fever, chills, shortness of breath, chest pain, back pain, numbness or tingling, dysuria or hematuria, constipation or diarrhea, headaches or visual changes, or any other current symptoms. - Related Data Home Medications Medication Instructions Recorded Confirmed oxyCODONE HCL/ACETAMINOPHEN 2 tab PO Q6H PRN 03/13/14 11/21/17 [Percocet 10-325 mg] predniSONE 30 mg PO DAILY 09/17/17 11/21/17 Methotrexate Inj (Unknown) 1 dose SQ FR 11/21/17 11/21/17 Previous Rx's Medication Instructions Recorded Aspirin 81 mg PO DAILY chew 11/21/17 Atenolol [Tenormin] 25 mg PO DAILY #30 tab 11/21/17 Atorvastatin [Lipitor] 40 mg PO HS #30 tab 11/21/17 Pantoprazole Sodium [Protonix] 40 mg PO DAILY #30 tablet. 11/21/17 Allergies Allergy/AdvReac Type Severity Reaction Status Date / Time No Known Allergies Allergy Verified 11/21/17 08:14 Review of Systems ROS Statement: Those systems with pertinent positive or pertinent negative responses have been documented in the HPI. ROS Other: All systems not noted in ROS Statement are negative. Past Medical History Past Medical History: Coronary Artery Disease (CAD), COPD, GERD/Reflux, Pneumonia, Rheumatoid Arthritis (RA) Additional Past Medical History / Comment(s): Pancreatitis couple times a year, 2012 past medical record documents viral pericarditis but pt denies, gastritis, uses home O2 at HS only. History of Any Multi-Drug Resistant Organisms: None Reported Past Surgical History: Heart Catheterization With Stent, Joint Replacement, Orthopedic Surgery Additional Past Surgical History / Comment(s): Total L knee arthroplasty, R total shoulder, , L ankle ORIF d/t fracture, EGD Past Anesthesia/Blood Transfusion Reactions: No Reported Reaction Additional Past Anesthesia/Blood Transfusion Reaction / Comment(s): Pt states he has never recieved blood. Date of Last Stent Placement:: 12/10/16 Past Psychological History: No Psychological Hx Reported Smoking Status: Former smoker - Past Family History Sister(s) Family Medical History: Cancer Additional Family Medical History / Comment(s): pt's father had ra, mother had 16 children was healthy most of her life age 93 from alzheimers. Mother Family Medical History: Dementia Father Family Medical History: Rheumatoid Arthritis (RA) General Exam - General Exam Comments Initial Comments: General: The patient is awake and alert, in no distress, and does not appear acutely ill. Eye: Pupils are equal, round and reactive to light, extra-ocular movements are intact; there is normal conjunctiva bilaterally. No signs of icterus. Ears, nose, mouth and throat: There are moist mucous membranes and no oral lesions. Neck: The neck is supple, there is no tenderness. Cardiovascular: There is a regular rate and rhythm. No murmur, rub or gallop is appreciated. Respiratory: Lungs are clear to auscultation, respirations are non-labored, breath sounds are equal. No wheezes, stridor, rales, or rhonchi. Gastrointestinal: Soft, non-distended, mildly diffusely tender abdomen without masses or organomegaly noted. There is no rebound or guarding present. No CVA tenderness. Bowel sounds are unremarkable. Back: There is no tenderness to palpation in the midline. There is no obvious deformity. No rashes noted. Musculoskeletal: Normal ROM, no tenderness, There is no pedal edema. There is no calf tenderness or swelling. Sensation intact. Pulses equal bilaterally 2+. Neurological: CN II-XII intact, There are no obvious motor or sensory deficits. Coordination appears grossly intact. Speech is normal. Skin: Skin is warm and dry and no rashes or lesions are noted. Psychiatric: Cooperative, appropriate mood & affect, normal judgment. Limitations: no limitations Course Vital Signs 01/10/18 08:42 Temperature 97.7 F Pulse Rate 58 L Respiratory 18 Rate Blood Pressure 155/81 O2 Sat by Pulse 99 Oximetry - Reevaluation(s) Reevaluation #1: 01/10/18 10:35 When talking with the patient he states all he came here for was pain medication and he would like his pain medication before he leaves. Medical Decision Making - Medical Decision Making 72-year-old male presents for abdominal pain. At this time patient's lab work and CAT scan have been reviewed. This time there is possible mild colitis which could explain the patient's pain. At this time we will start him on Zofran for home. We did give him 1 dose of pain meds here. At this time we will give him follow-up to GI for continued outpatient care. We did discuss return parameters all questions. Patient stated that he understood and he is in agreement with this plan. All questions have been answered. He will be discharged. - Lab Data Result diagrams: 01/10/18 09:06 01/10/18 09:06 Lab Results 01/10/18 01/10/18 Range/Units 09:06 09:06 WBC 13.6 H (3.8-10.6) k/uL RBC 5.37 (4.30-5.90) m/uL Hgb 16.7 (13.0-17.5) gm/dL Hct 48.9 (39.0-53.0) % MCV 91.0 (80.0-100.0) fL MCH 31.0 (25.0-35.0) pg MCHC 34.1 (31.0-37.0) g/dL RDW 14.6 (11.5-15.5) % Plt Count 398 (150-450) k/uL Neutrophils % 75 % Lymphocytes % 18 % Monocytes % 5 % Eosinophils % 1 % Basophils % 0 % Neutrophils # 10.2 H (1.3-7.7) k/uL Lymphocytes # 2.4 (1.0-4.8) k/uL Monocytes # 0.7 (0-1.0) k/uL Eosinophils # 0.1 (0-0.7) k/uL Basophils # 0.0 (0-0.2) k/uL Sodium 140 (137-145) mmol/L Potassium 4.6 (3.5-5.1) mmol/L Chloride 104 (98-107) mmol/L Carbon Dioxide 23 (22-30) mmol/L Anion Gap 13 mmol/L BUN 20 (9-20) mg/dL Creatinine 0.74 (0.66-1.25) mg/dL Est GFR (CKD-EPI)AfAm >90 (>60 ml/min/1.73 sqM) Est GFR (CKD-EPI)NonAf >90 (>60 ml/min/1.73 sqM) Glucose 143 H (74-99) mg/dL Calcium 9.3 (8.4-10.2) mg/dL Total Bilirubin 1.0 (0.2-1.3) mg/dL AST 26 (17-59) U/L ALT 44 (21-72) U/L Alkaline Phosphatase 83 (38-126) U/L Total Protein 6.8 (6.3-8.2) g/dL Albumin 3.7 (3.5-5.0) g/dL Amylase 168 H (30-110) U/L Lipase 60 (23-300) U/L - Radiology Data Radiology results: report reviewed, image reviewed Disposition Clinical Impression: Abdominal pain in male Disposition: HOME SELF-CARE Condition: Stable Instructions: Abdominal Pain (ED) Additional Instructions: Please use medication as discussed. Please follow up with family doctor if symptoms have not improved over the next two days. Please return to the emergency room if your symptoms increase or worsen or for any other concerns. Referrals: Ruthy Montemayor DO [Primary Care Provider] - 1-2 days Nathanael Dugan MD [STAFF PHYSICIAN] - 1-2 days Time of Disposition: 10:35
[2018-01-10 09:19] LABS: Basophils % (A) 0 %; Eosinophils # (A) 0.1 k/uL (0-0.7); Eosinophils % (A) 1 %; HCT 48.9 % (39.0-53.0); HGB 16.7 gm/dL (13.0-17.5); Lymphocytes # (A) 2.4 k/uL (1.0-4.8); Lymphocytes % (A) 18 %; MCHC 34.1 g/dL (31.0-37.0); Mean Platelet Volume 6.9; Monocytes # (A) 0.7 k/uL (0-1.0); Monocytes % (A) 5 %; Neutrophils # (A) 10.2 k/uL (1.3-7.7); Neutrophils % (A) 75 %; Platelet Count 398 k/uL (150-450); RBC 5.37 m/uL (4.30-5.90); RDW 14.6 % (11.5-15.5); WBC 13.6 k/uL (3.8-10.6)
[2018-01-10 09:29] LABS: ALT 44 U/L (21-72); AST 26 U/L (17-59); Albumin 3.7 g/dL (3.5-5.0); Alkaline Phosphatase 83 U/L (38-126); Amylase 168 U/L (30-110); Anion Gap 13 mmol/L; Blood Urea Nitrogen 20 mg/dL (9-20); Calcium 9.3 mg/dL (8.4-10.2); Carbon Dioxide 23 mmol/L (22-30); Chloride 104 mmol/L (98-107); Glucose 143 mg/dL (74-99); Lipase 60 U/L (23-300); Potassium 4.6 mmol/L (3.5-5.1); Sodium 140 mmol/L (137-145); Total Protein 6.8 g/dL (6.3-8.2)
--- NOTE | 2018-01-10 10:25 | CT ---
EXAMINATION TYPE: CT abdomen pelvis w con DATE OF EXAM: 01/10/2018 REFERENCE: Previous study dated 09/17/2017 HISTORY: Pain HISTORY: Patient complains of epigastric pain, nausea, and vomiting. CT DLP: 1464 mGy Automated exposure control for dose reduction was used. TECHNIQUE: Helical acquisition through the abdomen and pelvis was obtained following the oral ingesti on of without Oral Contrast and following intravenous administration of 100 mL of Isovue 370. The gaby a was reformatted in axial, coronal and sagittal projections. FINDINGS: There is pulmonary fibrosis in the lung bases as well as atelectatic change. There are sma ll, bilateral effusions, larger on the right than the left. These are essentially unchanged from prev ious. There is no pericardial fluid. The heart is not enlarged. There is a small hiatal hernia. Within the abdomen, the liver is normal in size. There are scattered hepatic cysts. The largest is in the lateral segment of the left lobe of the liver measures 3.1 cm. The gallbladder is unremarkable. There is granulomatous change within the spleen. There is a small splenule within the hilus of the sp uma. Both adrenal glands appear normal. Both kidneys demonstrate function and appear morphologically normal. The pancreas is unremarkable. There is no significant retroperitoneal, iliac or inguinal adenopathy. The bladder wall is mildly thickened but the bladder is not distended. There is no significant diverticular change and there is no radiographic evidence of diverticulitis. The colon is largely collapsed. This makes it difficult to assess colonic wall thickening. This is si milar in appearance to the previous study. The appendix is normal. Small bowel caliber is normal. There is no free fluid and no free air. There is degenerative disc disease as well as hypertrophic spondylosis within the spine. IMPRESSION: 1. EVIDENCE OF BASILAR FIBROSIS WITHIN THE LUNGS. 2. SMALL, BILATERAL EFFUSIONS, GREATER ON THE RIGHT THAN THE LEFT. 3. SMALL HIATAL HERNIA. 4. STABLE HEPATIC CYSTS. 5. COLLAPSE OF THE COLON MAKES IT DIFFICULT TO ASSESS COLONIC WALL THICKNESS. PLEASE CORRELATE TO EXC LUDE COLITIS 6. DEGENERATIVE CHANGES WITHIN THE SPINE.
[2018-01-10] MEDS ORDERED: MORPHINE SULFATE/PF 10MG/10ML VL IV STA (10:33)
[2018-01-10] MEDS ORDERED: MORPHINE SULFATE/PF 10MG/10ML VL IVP STA ×2 (10:35→11:36)
[2018-01-10 11:49] VITALS: BP 157/79; PULSE 60; RESP 17; TEMP 97.5
== END 2018-01-10 12:01 | disposition home or self-care (01) ==
LOC: EC 08:41
DX: R10.13 Epigastric pain (principal); R11.2 Nausea with vomiting, unspecified; J44.9 Chronic obstructive pulmonary disease, unspecified; M06.9 Rheumatoid arthritis, unspecified; Z95.5 Presence of coronary angioplasty implant and graft; Z87.891 Personal history of nicotine dependence; Z79.52 Long term (current) use of systemic steroids; Z79.899 Other long term (current) drug therapy
CPT/HCPCS: 99284; 96374; 96375 ×2; 96376; 96361 ×2; 36415; 80053; 82150; 83690; 85025; 74177; J2405; Q9967; J2270

== ENCOUNTER 2018-01-12 14:50 | Emergency (ER) | payer MEDICARE ==
[2018-01-12] MEDS ORDERED: MAG HYDROX/AL HYDROX/SIMETH 30 ML CUP PO STA (15:31)
[2018-01-12] MEDS ORDERED: LIDOCAINE VISCOUS 2% 15 ML CUP MUCOUS MEM ONE (15:31)
[2018-01-12] MEDS ORDERED: FAMOTIDINE 20 MG/2 ML VIAL IV STA (15:31)
[2018-01-12] MEDS ORDERED: ONDANSETRON 4 MG/2 ML VIAL IVP STA (15:31)
[2018-01-12 16:08] LABS: Basophils % (A) 0 %; Eosinophils % (A) 0 %; HCT 48.9 % (39.0-53.0); HGB 16.4 gm/dL (13.0-17.5); Lymphocytes # (A) 3.1 k/uL (1.0-4.8); Lymphocytes % (A) 21 %; MCH 30.8 pg (25.0-35.0); MCHC 33.5 g/dL (31.0-37.0); MCV 91.8 fL (80.0-100.0); Mean Platelet Volume 7.4; Monocytes # (A) 0.8 k/uL (0-1.0); Monocytes % (A) 5 %; Neutrophils # (A) 10.6 k/uL (1.3-7.7); Neutrophils % (A) 72 %; Platelet Count 323 k/uL (150-450); RBC 5.32 m/uL (4.30-5.90); RDW 14.7 % (11.5-15.5); WBC 14.7 k/uL (3.8-10.6)
--- NOTE | 2018-01-12 16:10 | ED ---
General Adult HPI - General Chief complaint: Abdominal Pain Stated complaint: abd pain, vomiting Time Seen by Provider: 01/12/18 14:59 Source: patient, family Mode of arrival: wheelchair Limitations: no limitations - History of Present Illness Initial comments: Fletcher is a 72-year-old male with past medical history most significant for frequent ER visits due to chronic pain. Patient was most recently evaluated 3 days ago in our emergency department for burning epigastric pain, he underwent a thorough workup and was given 1 dose of IV analgesia and discharged home. Patient describes the pain as crampy, epigastric. Pain is associated with nausea and a couple episodes of vomiting as well as persistent heaving. Patient reports he was able to eat a normal diet over the weekend. He doesn't feel that the abdominal pain or nausea is exacerbated by eating. He reports that once the pain starts it is persistent and doesn't go away until he gets pain medications. Patient reports that multiple times over the past few years she's experienced similar pain with no identification of the cause. He has not followed up with gastroenterology in a number of years, he does not believe he has ever had an EGD and he has not had a colonoscopy for a number of years. Patient denies any change in bowel or bladder habits. Denies any chest pain or shortness of breath. Denies any fevers or chills. - Related Data Home Medications Medication Instructions Recorded Confirmed oxyCODONE HCL/ACETAMINOPHEN 2 tab PO Q6H PRN 03/13/14 01/12/18 [Percocet 10-325 mg] predniSONE 30 mg PO DAILY 09/17/17 01/12/18 Folic Acid 1 mg PO DAILY 01/12/18 01/12/18 Methotrexate Inject 25mg/Ml 1 dose IM Q14D 01/12/18 01/12/18 Previous Rx's Medication Instructions Recorded Aspirin 81 mg PO DAILY chew 11/21/17 Atenolol [Tenormin] 25 mg PO DAILY #30 tab 11/21/17 Atorvastatin [Lipitor] 40 mg PO HS #30 tab 11/21/17 Allergies Allergy/AdvReac Type Severity Reaction Status Date / Time No Known Allergies Allergy Verified 01/12/18 15:27 Review of Systems ROS Statement: Those systems with pertinent positive or pertinent negative responses have been documented in the HPI. ROS Other: All systems not noted in ROS Statement are negative. ENT: Denies: throat pain Respiratory: Denies: cough, dyspnea Cardiovascular: Denies: chest pain, palpitations Endocrine: Reports: fatigue Gastrointestinal: Reports: abdominal pain, nausea, vomiting Genitourinary: Denies: urgency, dysuria Musculoskeletal: Denies: back pain Skin: Denies: rash, lesions Neurological: Denies: headache, weakness Psychiatric: Denies: anxiety, depression Hematological/Lymphatic: Denies: easy bleeding Past Medical History Past Medical History: Coronary Artery Disease (CAD), COPD, GERD/Reflux, Pneumonia, Rheumatoid Arthritis (RA) Additional Past Medical History / Comment(s): Pancreatitis couple times a year, 2012 past medical record documents viral pericarditis but pt denies, gastritis, uses home O2 at HS only. History of Any Multi-Drug Resistant Organisms: None Reported Past Surgical History: Heart Catheterization With Stent, Joint Replacement, Orthopedic Surgery Additional Past Surgical History / Comment(s): Total L knee arthroplasty, R total shoulder, , L ankle ORIF d/t fracture, EGD Past Anesthesia/Blood Transfusion Reactions: No Reported Reaction Additional Past Anesthesia/Blood Transfusion Reaction / Comment(s): Pt states he has never recieved blood. Date of Last Stent Placement:: 12/10/16 Past Psychological History: No Psychological Hx Reported Smoking Status: Former smoker - Past Family History Sister(s) Family Medical History: Cancer Additional Family Medical History / Comment(s): pt's father had ra, mother had 16 children was healthy most of her life age 93 from alzheimers. Mother Family Medical History: Dementia Father Family Medical History: Rheumatoid Arthritis (RA) General Exam Limitations: no limitations General appearance: alert Head exam: Present: atraumatic, normocephalic, normal inspection Eye exam: Present: normal appearance, PERRL ENT exam: Present: normal exam Neck exam: Present: normal inspection Respiratory exam: Present: wheezes (expiratory) Cardiovascular Exam: Present: regular rate, normal rhythm GI/Abdominal exam: Present: soft, tenderness, normal bowel sounds. Absent: distended, guarding, rebound, rigid, organomegaly, mass Rectal exam: Present: deferred Extremities exam: Present: normal inspection Back exam: Present: normal inspection Neurological exam: Present: alert, oriented X3 Psychiatric exam: Present: agitated Skin exam: Present: warm, dry Course Vital Signs 01/12/18 01/12/18 14:58 17:47 Temperature 97.6 F 97.9 F Pulse Rate 75 67 Respiratory 18 16 Rate Blood Pressure 145/81 172/78 O2 Sat by Pulse 97 98 Oximetry Medical Decision Making - Medical Decision Making Patient was seen and evaluated, history was obtained from the patient and review of previous medical record Patient with recurrent episodes of epigastric abdominal pain, history of viral pancreatitis in the distant past, Patient has not established any outpatient follow-up for evaluation of his chronic or recurrent epigastric abdominal pain Patient insistent that his abdominal pain requires IV narcotics and medications , I discussed with the patient that until he has a workup we will not give any IV narcotics. I offered the patient by mouth pain medications however he declined due to feeling nauseated. Labs and imaging were ordered A GI cocktail, Zofran and Pepcid were ordered Labs revealed mild leukocytosis only slightly increased from previous Mild lactic acidosis Lipase normal Ultrasound with no acute findings Results were discussed with the patient who reports he has vomited twice and Zofran, however he declines any further antiemetics. He states that he feels he needs IV narcotics, continues to decline oral. 1 dose of morphine ordered Patient was re-evaluated, patient was found to be sleeping comfortably. Woke him and he states he feels comfortable being discharged home. Patient's daughter states she will call GI for further follow up At this time workup is not suggestive of an acute event, patient is comfortable , not vomiting. All questions pertaining to care were answered to the best of my ability and the patient was discharged home in stable condition with plan to follow up out patient GI - Lab Data Result diagrams: 01/12/18 15:46 01/12/18 15:46 Lab Results 01/12/18 01/12/18 01/12/18 Range/Units 15:46 15:46 15:46 WBC 14.7 H (3.8-10.6) k/uL RBC 5.32 (4.30-5.90) m/uL Hgb 16.4 (13.0-17.5) gm/dL Hct 48.9 (39.0-53.0) % MCV 91.8 (80.0-100.0) fL MCH 30.8 (25.0-35.0) pg MCHC 33.5 (31.0-37.0) g/dL RDW 14.7 (11.5-15.5) % Plt Count 323 (150-450) k/uL Neutrophils % 72 % Lymphocytes % 21 % Monocytes % 5 % Eosinophils % 0 % Basophils % 0 % Neutrophils # 10.6 H (1.3-7.7) k/uL Lymphocytes # 3.1 (1.0-4.8) k/uL Monocytes # 0.8 (0-1.0) k/uL Eosinophils # 0.0 (0-0.7) k/uL Basophils # 0.0 (0-0.2) k/uL Sodium 141 (137-145) mmol/L Potassium 3.9 (3.5-5.1) mmol/L Chloride 104 (98-107) mmol/L Carbon Dioxide 24 (22-30) mmol/L Anion Gap 13 mmol/L BUN 17 (9-20) mg/dL Creatinine 0.70 (0.66-1.25) mg/dL Est GFR (CKD-EPI)AfAm >90 (>60 ml/min/1.73 sqM) Est GFR (CKD-EPI)NonAf >90 (>60 ml/min/1.73 sqM) Glucose 97 (74-99) mg/dL Plasma Lactic Acid Harsh 2.1 H* (0.7-2.0) mmol/L Calcium 9.4 (8.4-10.2) mg/dL Magnesium 1.6 (1.6-2.3) mg/dL Total Bilirubin 0.8 (0.2-1.3) mg/dL AST 26 (17-59) U/L ALT 31 (21-72) U/L Alkaline Phosphatase 87 (38-126) U/L Total Protein 6.9 (6.3-8.2) g/dL Albumin 3.9 (3.5-5.0) g/dL Lipase 156 (23-300) U/L Urine Color Urine Appearance (Clear) Urine pH (5.0-8.0) Ur Specific [place] (1.001-1.035) Urine Protein (Negative) Urine Glucose (UA) (Negative) Urine Ketones (Negative) Urine Blood (Negative) Urine Nitrite (Negative) Urine Bilirubin (Negative) Urine Urobilinogen (<2.0) mg/dL Ur Leukocyte Esterase (Negative) Urine RBC (0-5) /hpf Urine WBC (0-5) /hpf Urine Mucus (None) /hpf 01/12/18 Range/Units 16:00 WBC (3.8-10.6) k/uL RBC (4.30-5.90) m/uL Hgb (13.0-17.5) gm/dL Hct (39.0-53.0) % MCV (80.0-100.0) fL MCH (25.0-35.0) pg MCHC (31.0-37.0) g/dL RDW (11.5-15.5) % Plt Count (150-450) k/uL Neutrophils % % Lymphocytes % % Monocytes % % Eosinophils % % Basophils % % Neutrophils # (1.3-7.7) k/uL Lymphocytes # (1.0-4.8) k/uL Monocytes # (0-1.0) k/uL Eosinophils # (0-0.7) k/uL Basophils # (0-0.2) k/uL Sodium (137-145) mmol/L Potassium (3.5-5.1) mmol/L Chloride (98-107) mmol/L Carbon Dioxide (22-30) mmol/L Anion Gap mmol/L BUN (9-20) mg/dL Creatinine (0.66-1.25) mg/dL Est GFR (CKD-EPI)AfAm (>60 ml/min/1.73 sqM) Est GFR (CKD-EPI)NonAf (>60 ml/min/1.73 sqM) Glucose (74-99) mg/dL Plasma Lactic Acid Harsh (0.7-2.0) mmol/L Calcium (8.4-10.2) mg/dL Magnesium (1.6-2.3) mg/dL Total Bilirubin (0.2-1.3) mg/dL AST (17-59) U/L ALT (21-72) U/L Alkaline Phosphatase (38-126) U/L Total Protein (6.3-8.2) g/dL Albumin (3.5-5.0) g/dL Lipase (23-300) U/L Urine Color Yellow Urine Appearance Clear (Clear) Urine pH 7.0 (5.0-8.0) Ur Specific [place] 1.020 (1.001-1.035) Urine Protein Negative (Negative) Urine Glucose (UA) Negative (Negative) Urine Ketones Negative (Negative) Urine Blood Trace H (Negative) Urine Nitrite Negative (Negative) Urine Bilirubin Negative (Negative) Urine Urobilinogen <2.0 (<2.0) mg/dL Ur Leukocyte Esterase Negative (Negative) Urine RBC 10 H (0-5) /hpf Urine WBC 1 (0-5) /hpf Urine Mucus Rare H (None) /hpf Disposition Clinical Impression: Chronic abdominal pain Disposition: HOME SELF-CARE Condition: Good Instructions: Abdominal Pain (ED) Referrals: Ruthy Montemayor DO [Primary Care Provider] - 1-2 days Nathanael Dugan MD [STAFF PHYSICIAN] - 1-2 days Time of Disposition: 18:33
[2018-01-12 16:15] LABS: Appearance,Urine Clear (Clear); Bilirubin,Urine Negative (Negative); Blood,Urine Trace (Negative); Color,Urine Yellow; Glucose,Urine (UA) Negative (Negative); Ketones,Urine Negative (Negative); Leukocyte Esterase,Urine Negative (Negative); Mucus,Urine Rare /hpf; Nitrite,Urine Negative (Negative); Protein,Urine Negative (Negative); RBC,Urine 10 /hpf (0-5); Urobilinogen,Urine <2.0 mg/dL (<2.0); WBC,Urine 1 /hpf (0-5)
[2018-01-12 16:24] LABS: ALT 31 U/L (21-72); AST 26 U/L (17-59); Albumin 3.9 g/dL (3.5-5.0); Alkaline Phosphatase 87 U/L (38-126); Anion Gap 13 mmol/L; Blood Urea Nitrogen 17 mg/dL (9-20); Calcium 9.4 mg/dL (8.4-10.2); Carbon Dioxide 24 mmol/L (22-30); Chloride 104 mmol/L (98-107); Glucose 97 mg/dL (74-99); Lipase 156 U/L (23-300); Magnesium 1.6 mg/dL (1.6-2.3); Potassium 3.9 mmol/L (3.5-5.1); Sodium 141 mmol/L (137-145); Total Bilirubin 0.8 mg/dL (0.2-1.3); Total Protein 6.9 g/dL (6.3-8.2)
--- NOTE | 2018-01-12 17:07 | US ---
EXAMINATION TYPE: US abdomen complete DATE OF EXAM: 01/12/2018 COMPARISON: CT 01/10/2018, US 03/03/2015 CLINICAL HISTORY: Abdominal Pain. Extremely difficult/limited exam due to overlying bowel gas and pat ient movement due to pain. Patient is unable to hold his breath for more than a few seconds. EXAM MEASUREMENTS: Liver Length: 15.3 cm Gallbladder Wall: 0.2 cm CBD: 0.5 cm Spleen: 8.2 cm Right Kidney: 11.1 x 5.8 x 6.4 cm Left Kidney: 10.0 x 5.5 x 4.8 cm Pancreas: Obscured by bowel gas Liver: Limited visualization due to overlying bowel gas. Multiple cystic areas visualized, largest l eft lobe measuring 2.0 x 1.9 x 2.6 cm. Gallbladder: No stones or sludge visualized Evidence for sonographic Conrad's sign: No CBD: wnl as visualized Spleen: Granulomas visualized Right Kidney: No hydronephrosis or masses seen Left Kidney: No hydronephrosis or masses seen Upper IVC: wnl Abd Aorta: Limited visualization due to overlying bowel gas. Proximal portion appears ectatic, howev er difficult to visualize due to overlying bowel. IMPRESSION: No gallstones or dilated ducts. Multiple simple hepatic cysts. No adverse change compared to old exam. No renal mass or obstruction.
[2018-01-12] MEDS ORDERED: MORPHINE SULF 5MG/10ML VL IVP STA (17:26)
[2018-01-12 19:18] VITALS: BP 168/80; PULSE 78; RESP 20; TEMP 98.3
== END 2018-01-12 19:00 | disposition home or self-care (01) ==
LOC: EC 14:50
DX: R10.13 Epigastric pain (principal); G89.29 Other chronic pain; R11.2 Nausea with vomiting, unspecified; J44.9 Chronic obstructive pulmonary disease, unspecified; M06.9 Rheumatoid arthritis, unspecified; Z95.5 Presence of coronary angioplasty implant and graft; Z79.52 Long term (current) use of systemic steroids; Z79.899 Other long term (current) drug therapy; Z87.891 Personal history of nicotine dependence
CPT/HCPCS: 99284; 96374; 96375 ×2; 36415; 80053; 83605; 83690; 83735; 85025; 81001; 76700; J2405; J2270

== ENCOUNTER 2018-06-11 12:23 | Inpatient (IN) | payer MEDICARE ==
[2018-06-11] MEDS ORDERED: ACETAMINOPHEN TAB 500 MG TAB PO STA (12:49)
[2018-06-11] MEDS ORDERED: VANCOMYCIN 2,000 MG in SODIUM CHLORIDE 0.9% 250 ML IVPB STA (12:51)
--- NOTE | 2018-06-11 12:54 | ED ---
General Adult HPI - General Chief complaint: Extremity Problem,Nontraumatic Stated complaint: pain Source: EMS Mode of arrival: EMS Limitations: no limitations - History of Present Illness Initial comments: Dictation was produced using [employer] dictation software. please excuse any grammatical, word or spelling errors. Chief Complaint: 73-year-old male with past medical history rheumatoid arthritis , multiple orthopedic surgeries presents with left knee pain. History of Present Illness: Patient is 73-year-old male presents with left knee pain. Patient has been having fevers and chills at home. He is on methotrexate. 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 He also has these painful to the distal tips. Patient denies any cough. No belly pain. No nausea vomiting. No changes in bowel habits no urinary symptoms. The ROS documented in this emergency department record has been reviewed and confirmed by me. Those systems with pertinent positive or negative responses have been documented in the HPI. All other systems are other negative and/or noncontributory. - Related Data Home Medications Medication Instructions Recorded Confirmed oxyCODONE HCL/ACETAMINOPHEN 2 tab PO Q6H PRN 03/13/14 06/11/18 [Percocet 10-325 mg] Folic Acid 1 mg PO DAILY 01/12/18 06/11/18 Methotrexate Inject 25mg/Ml 1 dose IM FR 01/12/18 06/11/18 Allergies Allergy/AdvReac Type Severity Reaction Status Date / Time No Known Allergies Allergy Verified 06/11/18 12:42 Review of Systems ROS Statement: Those systems with pertinent positive or pertinent negative responses have been documented in the HPI. ROS Other: All systems not noted in ROS Statement are negative. Past Medical History Past Medical History: Coronary Artery Disease (CAD), COPD, GERD/Reflux, Pneumonia, Rheumatoid Arthritis (RA) Additional Past Medical History / Comment(s): Pancreatitis couple times a year, 2013 past medical record documents viral pericarditis but pt denies, gastritis, uses home O2 at HS only. History of Any Multi-Drug Resistant Organisms: None Reported Past Surgical History: Heart Catheterization With Stent, Joint Replacement, Orthopedic Surgery Additional Past Surgical History / Comment(s): Total L knee arthroplasty, R total shoulder, , L ankle ORIF d/t fracture, EGD Past Anesthesia/Blood Transfusion Reactions: No Reported Reaction Additional Past Anesthesia/Blood Transfusion Reaction / Comment(s): Pt states he has never recieved blood. Date of Last Stent Placement:: 12/10/16 Past Psychological History: No Psychological Hx Reported Smoking Status: Former smoker Past Alcohol Use History: None Reported Past Drug Use History: None Reported - Past Family History Sister(s) Family Medical History: Cancer Additional Family Medical History / Comment(s): pt's father had ra, mother had 16 children was healthy most of her life age 93 from alzheimers. Mother Family Medical History: Dementia Father Family Medical History: Rheumatoid Arthritis (RA) General Exam - General Exam Comments Initial Comments: PHYSICAL EXAM: General Impression: Alert and oriented x3, not in acute distress HEENT: Normocephalic atraumatic, extra-ocular movements intact, pupils equal and reactive to light bilaterally, dry mucous membranes Cardiovascular: Tachycardic Chest: Lungs clear to auscultation bilaterally, no rhonchi, no wheeze, no rales Abdomen: Bowel sounds present, abdomen soft, non-tender, non-distended, no organomegaly Musculoskeletal: Pulses present and equal in all extremities, warm swollen left knee with mild erythema Motor: Moves all tremors grossly Neurological: CN II-XII grossly intact, no focal motor or sensory deficits noted Skin: Tender palpable nodes to the distal tips of the fingers and plantar surface of the foot Psych: Normal affect and mood Limitations: no limitations Course Vital Signs 06/11/18 12:32 Temperature 102.2 F H Pulse Rate 114 H Respiratory 20 Rate Blood Pressure 119/59 O2 Sat by Pulse 94 L Oximetry Medical Decision Making - Medical Decision Making ED course: 73-year-old male presents with clinical presentation suspicious for bacteremia vital signs upon arrival shows temperature 102.2, heart rate of 114, 94% on nasal cannula.Laboratory evaluation obtained. Leukocytosis of 20.1. Mild macrocytic anemia 101.2. Coag panel unremarkable. Chemistry shows sodium 134. Glucose 116. Rest metabolic panel is unremarkable. Cardiac enzymes are negative. Urine shows no acute processes. Chest x-ray shows right-sided pleural effusion. There is some suspicion of underlying infiltrate. Joint aspiration was performed on the left knee joint or patient is experiencing significant pain. There was purulent drainage from the left knee. Patient also having left shoulder pain. Discussed patient case with orthopedic surgery APOLINAR Alvarado. Patient's orthopedic surgeon who performed his left total knee replacement is Dr. Fisehr. Agree with vancomycin. They will plan to perform knee washout possible left shoulder aspiration sometime later today. He also requested infectious disease. Consult. Discussed patient case with the director multiple sclerosis center Dr. Vaca who is willing to accept admission. He does not feel the need that patient is to be admitted to intensive care unit at this time. There is strong clinical suspicion that patient's symptoms also reflect bacteremia. He started on broad-spectrum antibiotics. At this point there is no indication for pressor administration at this time. Patient understandable and agreeable to admission. - Lab Data Result diagrams: 06/11/18 12:57 06/11/18 12:57 Lab Results 06/11/18 06/11/18 06/11/18 Range/Units 12:57 12:57 12:57 WBC 20.1 H (3.8-10.6) k/uL RBC 5.08 (4.30-5.90) m/uL Hgb 16.3 (13.0-17.5) gm/dL Hct 51.4 (39.0-53.0) % MCV 101.2 H (80.0-100.0) fL MCH 32.0 (25.0-35.0) pg MCHC 31.7 (31.0-37.0) g/dL RDW 14.4 (11.5-15.5) % Plt Count 345 (150-450) k/uL Neutrophils % 85 % Lymphocytes % 9 % Monocytes % 3 % Eosinophils % 1 % Basophils % 0 % Neutrophils # 17.2 H (1.3-7.7) k/uL Lymphocytes # 1.9 (1.0-4.8) k/uL Monocytes # 0.7 (0-1.0) k/uL Eosinophils # 0.2 (0-0.7) k/uL Basophils # 0.0 (0-0.2) k/uL Macrocytosis Slight PT (9.0-12.0) sec INR (<1.2) APTT (22.0-30.0) sec Sodium 134 L (137-145) mmol/L Potassium 4.1 (3.5-5.1) mmol/L Chloride 104 (98-107) mmol/L Carbon Dioxide 23 (22-30) mmol/L Anion Gap 7 mmol/L BUN 17 (9-20) mg/dL Creatinine 0.80 (0.66-1.25) mg/dL Est GFR (CKD-EPI)AfAm >90 (>60 ml/min/1.73 sqM) Est GFR (CKD-EPI)NonAf >90 (>60 ml/min/1.73 sqM) Glucose 116 H (74-99) mg/dL Plasma Lactic Acid Harsh (0.7-2.0) mmol/L Calcium 8.5 (8.4-10.2) mg/dL Total Bilirubin 0.9 (0.2-1.3) mg/dL AST 18 (17-59) U/L ALT 29 (21-72) U/L Alkaline Phosphatase 66 (38-126) U/L Total Creatine Kinase 37 L (55-170) U/L CK-MB (CK-2) 0.7 (0.0-2.4) ng/mL CK-MB (CK-2) Rel Index 1.9 Troponin I <0.012 (0.000-0.034) ng/mL Total Protein 5.7 L (6.3-8.2) g/dL Albumin 3.0 L (3.5-5.0) g/dL Urine Color Urine Appearance (Clear) Urine pH (5.0-8.0) Ur Specific [place] (1.001-1.035) Urine Protein (Negative) Urine Glucose (UA) (Negative) Urine Ketones (Negative) Urine Blood (Negative) Urine Nitrite (Negative) Urine Bilirubin (Negative) Urine Urobilinogen (<2.0) mg/dL Ur Leukocyte Esterase (Negative) 06/11/18 06/11/18 06/11/18 Range/Units 12:57 12:57 13:39 WBC (3.8-10.6) k/uL RBC (4.30-5.90) m/uL Hgb (13.0-17.5) gm/dL Hct (39.0-53.0) % MCV (80.0-100.0) fL MCH (25.0-35.0) pg MCHC (31.0-37.0) g/dL RDW (11.5-15.5) % Plt Count (150-450) k/uL Neutrophils % % Lymphocytes % % Monocytes % % Eosinophils % % Basophils % % Neutrophils # (1.3-7.7) k/uL Lymphocytes # (1.0-4.8) k/uL Monocytes # (0-1.0) k/uL Eosinophils # (0-0.7) k/uL Basophils # (0-0.2) k/uL Macrocytosis PT 10.8 (9.0-12.0) sec INR 1.1 (<1.2) APTT 21.7 L (22.0-30.0) sec Sodium (137-145) mmol/L Potassium (3.5-5.1) mmol/L Chloride (98-107) mmol/L Carbon Dioxide (22-30) mmol/L Anion Gap mmol/L BUN (9-20) mg/dL Creatinine (0.66-1.25) mg/dL Est GFR (CKD-EPI)AfAm (>60 ml/min/1.73 sqM) Est GFR (CKD-EPI)NonAf (>60 ml/min/1.73 sqM) Glucose (74-99) mg/dL Plasma Lactic Acid Harsh 1.7 (0.7-2.0) mmol/L Calcium (8.4-10.2) mg/dL Total Bilirubin (0.2-1.3) mg/dL AST (17-59) U/L ALT (21-72) U/L Alkaline Phosphatase (38-126) U/L Total Creatine Kinase (55-170) U/L CK-MB (CK-2) (0.0-2.4) ng/mL CK-MB (CK-2) Rel Index Troponin I (0.000-0.034) ng/mL Total Protein (6.3-8.2) g/dL Albumin (3.5-5.0) g/dL Urine Color Yellow Urine Appearance Clear (Clear) Urine pH 5.5 (5.0-8.0) Ur Specific [place] 1.024 (1.001-1.035) Urine Protein Trace H (Negative) Urine Glucose (UA) Negative (Negative) Urine Ketones Negative (Negative) Urine Blood Negative (Negative) Urine Nitrite Negative (Negative) Urine Bilirubin Negative (Negative) Urine Urobilinogen <2.0 (<2.0) mg/dL Ur Leukocyte Esterase Negative (Negative) Disposition Clinical Impression: Sepsis, Septic arthritis, Bacteremia Disposition: ADMITTED IP TO THIS HOSP Condition: Fair Referrals: Ruthy Montemayor DO [Primary Care Provider] - 1-2 days Decision Time: 14:20
[2018-06-11] MEDS ORDERED: CEFEPIME 2 GM in SODIUM CHLORIDE 0.9% 50 ML IVPB STA (12:57)
[2018-06-11] MEDS: SODIUM CHLORIDE 0.9% 500 ML IV SCH ×2 (13:05→13:06)
[2018-06-11 13:12] LABS: Basophils % (A) 0 %; Eosinophils # (A) 0.2 k/uL (0-0.7); Eosinophils % (A) 1 %; HCT 51.4 % (39.0-53.0); HGB 16.3 gm/dL (13.0-17.5); Lymphocytes # (A) 1.9 k/uL (1.0-4.8); Lymphocytes % (A) 9 %; MCHC 31.7 g/dL (31.0-37.0); MCV 101.2 fL (80.0-100.0); Macrocytosis Slight; Mean Platelet Volume 6.6; Monocytes # (A) 0.7 k/uL (0-1.0); Monocytes % (A) 3 %; Neutrophils # (A) 17.2 k/uL (1.3-7.7); Neutrophils % (A) 85 %; Platelet Count 345 k/uL (150-450); RBC 5.08 m/uL (4.30-5.90); RDW 14.4 % (11.5-15.5); WBC 20.1 k/uL (3.8-10.6)
[2018-06-11] MEDS ORDERED: VANCOMYCIN 2,000 MG in SODIUM CHLORIDE 0.9% 500 ML IVPB ONE (13:15)
[2018-06-11 13:20] LABS: ALT 29 U/L (21-72); AST 18 U/L (17-59); Alkaline Phosphatase 66 U/L (38-126); Anion Gap 7 mmol/L; Blood Urea Nitrogen 17 mg/dL (9-20); Calcium 8.5 mg/dL (8.4-10.2); Carbon Dioxide 23 mmol/L (22-30); Chloride 104 mmol/L (98-107); Glucose 116 mg/dL (74-99); Potassium 4.1 mmol/L (3.5-5.1); Sodium 134 mmol/L (137-145); Total Bilirubin 0.9 mg/dL (0.2-1.3); Total Protein 5.7 g/dL (6.3-8.2)
[2018-06-11 13:28] LABS: INR 1.1 (<1.2); Prothrombin Time 10.8 sec (9.0-12.0)
[2018-06-11 13:30] LABS: Creatine Kinase 37 U/L (55-170)
[2018-06-11 13:42] LABS: Creatine Kinase MB 0.7 ng/mL (0.0-2.4); Troponin I <0.012 ng/mL (0.000-0.034)
[2018-06-11 13:56] LABS: Appearance,Urine Clear (Clear); Bilirubin,Urine Negative (Negative); Blood,Urine Negative (Negative); Color,Urine Yellow; Glucose,Urine (UA) Negative (Negative); Ketones,Urine Negative (Negative); Leukocyte Esterase,Urine Negative (Negative); Nitrite,Urine Negative (Negative); PH, Urine 5.5 (5.0-8.0); Protein,Urine Trace (Negative); Specific Gravity,Urine 1.024 (1.001-1.035); Urobilinogen,Urine <2.0 mg/dL (<2.0)
[2018-06-11 13:57] LABS: Partial Thromboplastin Time 21.7 sec (22.0-30.0)
--- NOTE | 2018-06-11 14:01 | XR ---
EXAMINATION TYPE: XR chest 2V DATE OF EXAM: 06/11/2018 COMPARISON: November 21, 2017 HISTORY: Shortness of breath TECHNIQUE: Frontal and lateral views of the chest are obtained. FINDINGS: Scattered senescent parenchymal changes noted. Hyperinflation compatible with COPD. There is right-sided pleural effusion. Underlying infiltrate is not excluded. Follow-up advised. Heart size is stable. Mediastinal structures are stable and grossly unremarkable. No evidence for hilar prominence. Degenerative changes dorsal spine. IMPRESSION: 1. There is right-sided pleural effusion. Underlying infiltrate is not excluded. Follow-up advised.
[2018-06-11] MEDS ORDERED: NALOXONE 0.4 MG/ML 1 ML VIAL IV PRN ×2 (14:21→21:09)
[2018-06-11] MEDS: SODIUM CHLORIDE 0.9% 1,000 ML IV SCH ×3 (14:30→23:12)
[2018-06-11] MEDS ORDERED: VANCOMYCIN IV PER PHARMACY 1 EACH MISC MISCELLANE SCH (14:30)
--- NOTE | 2018-06-11 14:44 | P.CONS ---
History of Present Illness - Reason for Consult Consult date: 06/11/18 Septic left knee arthroplasty - History of Present Illness This is a 73-year-old male who has a significant past history of rheumatoid arthritis for 20-25 years under the care of Dr. Tillman currently on methotrexate, prednisone and infusion monthly and was last administered last week. Patient also has history of a left total knee arthroplasty done 15 years ago. Yesterday he noticed sudden onset of pain to the left knee with a little swelling. He denies any known fever, chills or rigors. No change in appetite. No generalized body aches. Positive malaise. Patient came into [facility] emergency center for evaluation. He had a temperature of 102.2, tachycardia 114 and leukocytosis at 20.1. A joint aspiration was done by the ER with purulent drainage from the left knee. Patient is also complaining of left shoulder pain and is status post left rotator cuff repair. Patient has been seen by orthopedics who planned for I&D this evening. Lactic acid was 1.7 , wound culture, blood culture status received. Urinalysis was negative for infection. Patient also gives history of having skin lesions all over his body which causes some itching and on his hands these lesions as well and he ends up poking them with a needle and pus and blood come out. The last one he did was 4 days ago on the left index finger. He feels that he has had these lesions since he started a new medication with Dr. Tillman but apparently Dr. Tillman does not agree with this. She has been given a dose of cefepime and vancomycin. His tetanus status was last updated. Review of Systems All systems: negative Constitutional: Reports fatigue, Reports malaise, Denies anorexia, Denies chills , Denies fever, Denies poor appetite Eyes: denies blurred vision, denies pain Ears, nose, mouth and throat: Denies dental pain, Denies headache, Denies mouth pain, Denies sore throat, Denies vertigo Cardiovascular: Denies chest pain, Denies decreased exercise tolerance, Denies dyspnea on exertion, Denies edema, Denies leg edema, Denies lightheadedness, Denies shortness of breath, Denies syncope Respiratory: Reports home oxygen, Reports wheezing, Denies cough, Denies cough with sputum, Denies dyspnea, Denies excessive sputum, Denies hemoptysis Gastrointestinal: Denies abdominal pain, Denies diarrhea, Denies loss of appetite, Denies nausea, Denies vomiting Genitourinary: Denies dysuria, Denies urinary frequency Musculoskeletal: Denies frequent falls, Denies myalgias Musculoskeletal: left: hip swelling, knee pain, knee stiffness Integumentary: Reports pruritus, Reports rash, Reports wounds Neurological: Denies numbness, Denies weakness Psychiatric: Denies anxiety, Denies depression Endocrine: Denies fatigue, Denies weight change Past Medical History Past Medical History: Coronary Artery Disease (CAD), COPD, GERD/Reflux, Pneumonia, Rheumatoid Arthritis (RA) Additional Past Medical History / Comment(s): Pancreatitis couple times a year, 2012 past medical record documents viral pericarditis but pt denies, gastritis, has home O2 at only but has not been using. He is scheduled for outpatient sleep study on June 26. History of Any Multi-Drug Resistant Organisms: None Reported Past Surgical History: Heart Catheterization With Stent, Joint Replacement, Orthopedic Surgery Additional Past Surgical History / Comment(s): Total L knee arthroplasty, R total shoulder, L ankle ORIF d/t fracture, EGD, left rotator cuff repair Past Anesthesia/Blood Transfusion Reactions: No Reported Reaction Additional Past Anesthesia/Blood Transfusion Reaction / Comm: Pt states he has never recieved blood. Date of Last Stent Placement:: 12/10/16 Past Psychological History: No Psychological Hx Reported Smoking Status: Former smoker Past Alcohol Use History: None Reported Additional Past Alcohol Use History / Comment(s): Patient was a smoker one to one and half packs per day for 40+ years and quit 2 years ago when he had cardiac stents done. He uses a synthetic marijuana at nighttime only for his arthritis to help him sleep. He denies any other street drug use, alcohol use. 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 He lives at home with his . Past Drug Use History: None Reported - Past Family History Sister(s) Family Medical History: Cancer Additional Family Medical History / Comment(s): pt's father had ra, mother had 16 children was healthy most of her life age 93 from alzheimers. Mother Family Medical History: Dementia Father Family Medical History: Rheumatoid Arthritis (RA) Medications and Allergies Home Medications Medication Instructions Recorded Confirmed Type oxyCODONE HCL/ACETAMINOPHEN 2 tab PO Q6H PRN 03/13/14 06/11/18 History [Percocet 10-325 mg] Folic Acid 1 mg PO DAILY 01/12/18 06/11/18 History Methotrexate Inject 25mg/Ml 1 dose IM FR 01/12/18 06/11/18 History Allergies Allergy/AdvReac Type Severity Reaction Status Date / Time No Known Allergies Allergy Verified 06/11/18 16:45 Physical Exam Vitals: Vital Signs Temp Pulse Resp BP Pulse Ox 06/11/18 12:32 102.2 F H 114 H 20 119/59 94 L Intake and Output 06/10/18 06/11/18 06/11/18 22:59 06:59 14:59 Other: Weight 81.647 kg Gen: This is a 73-year-old male patient. He is on the ER stretcher and appears to be comfortable. He does complain of pain in the left knee. Otherwise he denies any complaints. HEENT: Head is atraumatic, normocephalic. Pupils equal, round. Sclerae is anicteric. Conjunctivae pink. Because members of the mouth are moist. Dentition is in good order. No thrush noted. NECK: Supple. No JVD. No lymphadenopathy. No thyromegaly. LUNGS: Scattered expiratory wheezes throughout all lung bass. No intercostal retractions. HEART: Regular rate and rhythm. No murmur. ABDOMEN: Soft. Bowel sounds are present. No masses. No tenderness. EXTREMITIES: No pedal edema. No calf tenderness. Dorsalis pedis +2 bilaterally. Patient has a puncture site to the left knee. There are no open wounds. There is slight increase in size compared to the right. Significant pain. Decreased range of motion secondary to pain NEUROLOGICAL: Patient is awake, alert and oriented x3. Cranial nerves 2 through 12 are grossly intact. Results Results: Laboratory Results WBC 20.1 k/uL (3.8-10.6) H 06/11/18 12:57 RBC 5.08 m/uL (4.30-5.90) 06/11/18 12:57 Hgb 16.3 gm/dL (13.0-17.5) 06/11/18 12:57 Hct 51.4 % (39.0-53.0) 06/11/18 12:57 MCV 101.2 fL (80.0-100.0) H 06/11/18 12:57 MCH 32.0 pg (25.0-35.0) 06/11/18 12:57 MCHC 31.7 g/dL (31.0-37.0) 06/11/18 12:57 RDW 14.4 % (11.5-15.5) 06/11/18 12:57 Plt Count 345 k/uL (150-450) 06/11/18 12:57 Neutrophils % 85 % 06/11/18 12:57 Lymphocytes % 9 % 06/11/18 12:57 Monocytes % 3 % 06/11/18 12:57 Eosinophils % 1 % 06/11/18 12:57 Basophils % 0 % 06/11/18 12:57 Neutrophils # 17.2 k/uL (1.3-7.7) H 06/11/18 12:57 Lymphocytes # 1.9 k/uL (1.0-4.8) 06/11/18 12:57 Monocytes # 0.7 k/uL (0-1.0) 06/11/18 12:57 Eosinophils # 0.2 k/uL (0-0.7) 06/11/18 12:57 Basophils # 0.0 k/uL (0-0.2) 06/11/18 12:57 Macrocytosis Slight 06/11/18 12:57 PT 10.8 sec (9.0-12.0) 06/11/18 12:57 INR 1.1 (<1.2) 06/11/18 12:57 APTT 21.7 sec (22.0-30.0) L 06/11/18 12:57 Sodium 134 mmol/L (137-145) L 06/11/18 12:57 Potassium 4.1 mmol/L (3.5-5.1) 06/11/18 12:57 Chloride 104 mmol/L (98-107) 06/11/18 12:57 Carbon Dioxide 23 mmol/L (22-30) 06/11/18 12:57 Anion Gap 7 mmol/L 06/11/18 12:57 BUN 17 mg/dL (9-20) 06/11/18 12:57 Creatinine 0.80 mg/dL (0.66-1.25) 06/11/18 12:57 Est GFR (CKD-EPI)AfAm >90 (>60 ml/min/1.73 sqM) 06/11/18 12:57 Est GFR (CKD-EPI)NonAf >90 (>60 ml/min/1.73 sqM) 06/11/18 12:57 Glucose 116 mg/dL (74-99) H 06/11/18 12:57 Plasma Lactic Acid Harsh 1.7 mmol/L (0.7-2.0) 06/11/18 12:57 Calcium 8.5 mg/dL (8.4-10.2) 06/11/18 12:57 Total Bilirubin 0.9 mg/dL (0.2-1.3) 06/11/18 12:57 AST 18 U/L (17-59) 06/11/18 12:57 ALT 29 U/L (21-72) 06/11/18 12:57 Alkaline Phosphatase 66 U/L (38-126) 06/11/18 12:57 Total Creatine Kinase 37 U/L (55-170) L 06/11/18 12:57 CK-MB (CK-2) 0.7 ng/mL (0.0-2.4) 06/11/18 12:57 CK-MB (CK-2) Rel Index 1.9 06/11/18 12:57 Troponin I <0.012 ng/mL (0.000-0.034) 06/11/18 12:57 Total Protein 5.7 g/dL (6.3-8.2) L 06/11/18 12:57 Albumin 3.0 g/dL (3.5-5.0) L 06/11/18 12:57 Urine Color Yellow 06/11/18 13:39 Urine Appearance Clear (Clear) 06/11/18 13:39 Urine pH 5.5 (5.0-8.0) 06/11/18 13:39 Ur Specific Ursa 1.024 (1.001-1.035) 06/11/18 13:39 Urine Protein Trace (Negative) H 06/11/18 13:39 Urine Glucose (UA) Negative (Negative) 06/11/18 13:39 Urine Ketones Negative (Negative) 06/11/18 13:39 Urine Blood Negative (Negative) 06/11/18 13:39 Urine Nitrite Negative (Negative) 06/11/18 13:39 Urine Bilirubin Negative (Negative) 06/11/18 13:39 Urine Urobilinogen <2.0 mg/dL (<2.0) 06/11/18 13:39 Ur Leukocyte Esterase Negative (Negative) 06/11/18 13:39 CBC & Chem 7: 06/12/18 04:36 06/12/18 04:36 Labs: Abnormal Lab Results - Last 24 Hours (Table) 06/11/18 06/11/18 06/11/18 Range/Units 12:57 12:57 12:57 WBC 20.1 H (3.8-10.6) k/uL MCV 101.2 H (80.0-100.0) fL Neutrophils # 17.2 H (1.3-7.7) k/uL APTT (22.0-30.0) sec Sodium 134 L (137-145) mmol/L Glucose 116 H (74-99) mg/dL Total Creatine Kinase 37 L (55-170) U/L Total Protein 5.7 L (6.3-8.2) g/dL Albumin 3.0 L (3.5-5.0) g/dL Urine Protein (Negative) 06/11/18 06/11/18 Range/Units 12:57 13:39 WBC (3.8-10.6) k/uL MCV (80.0-100.0) fL Neutrophils # (1.3-7.7) k/uL APTT 21.7 L (22.0-30.0) sec Sodium (137-145) mmol/L Glucose (74-99) mg/dL Total Creatine Kinase (55-170) U/L Total Protein (6.3-8.2) g/dL Albumin (3.5-5.0) g/dL Urine Protein Trace H (Negative) Assessment and Plan Plan: This is a 73-year-old male who presented to hospital with sepsis secondary to a left knee septic arthroplasty. Patient is scheduled for I&D this afternoon with Dr. Fisher. Patient also has history of underlying rheumatoid arthritis. Patient has been given 1 dose of cefepime and vancomycin. Patient will be continued on the same. Continue supportive care. Further recommendations as patient progresses. The above dictated assessment and findings were discussed with Dr. Paul. The impression and plan of care have been directed as dictated. Roselia Au nurse practitioner acting as scribe for Dr. Paul.
--- NOTE | 2018-06-11 15:40 | P.HPIM ---
History of Present Illness H&P Date: 06/11/18 Chief Complaint: Left knee pain related to septic arthritis This is a 73-year-old patient of Dr. Montemayor. Patient presented to the emergency room with complaint of left knee pain. Patient also states he's been having fevers and chills at home. Patient has a known past medical history of rheumatoid arthritis in which she follows with electrical assembly technician and was on methotrexate. Additional medical history includes coronary artery disease, COPD , GERD, pneumonia and pancreatitis multiple episodes. Chest x-ray completed emergency room showing right-sided pleural effusion. Underlying infiltrate is not excluded. EKG completed showing sinus tachycardia. Dr. Fisher per orthopedic services consulted. Patient had joint aspiration that was done in ER with purulent drainage from the left knee. Patient is also complaining of left shoulder pain in his status post left rotator cuff repair. Patient is scheduled for a [address] Fisher. White blood count 20.1. Blood culture and wound cultures have been received. Lactic acid 1.7. Patient febrile with a temp of 102.2. Infectious disease has been consulted. Vancomycin IV antibiotic ordered. UA negative. Patient denies chest pain or shortness of breath. Does complain of pain and left knee. Patient denies any nausea vomiting or diarrhea. Patient denies any urinary burning or frequency Review of Systems Please refer to HPI otherwise unremarkable Past Medical History Past Medical History: Coronary Artery Disease (CAD), COPD, GERD/Reflux, Pneumonia, Rheumatoid Arthritis (RA) Additional Past Medical History / Comment(s): Pancreatitis couple times a year, 2012 past medical record documents viral pericarditis but pt denies, gastritis, has home O2 at only but has not been using. He is scheduled for outpatient sleep study on June 26. History of Any Multi-Drug Resistant Organisms: None Reported Past Surgical History: Heart Catheterization With Stent, Joint Replacement, Orthopedic Surgery Additional Past Surgical History / Comment(s): Total L knee arthroplasty, R total shoulder, L ankle ORIF d/t fracture, EGD, left rotator cuff repair Past Anesthesia/Blood Transfusion Reactions: No Reported Reaction Additional Past Anesthesia/Blood Transfusion Reaction / Comment(s): Pt states he has never recieved blood. Date of Last Stent Placement:: 12/10/16 Past Psychological History: No Psychological Hx Reported Smoking Status: Former smoker Past Alcohol Use History: None Reported Additional Past Alcohol Use History / Comment(s): Patient was a smoker one to one and half packs per day for 40+ years and quit 2 years ago when he had cardiac stents done. He uses a synthetic marijuana at nighttime only for his arthritis to help him sleep. He denies any other street drug use, alcohol use. 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 He lives at home with his . Past Drug Use History: None Reported - Past Family History Sister(s) Family Medical History: Cancer Additional Family Medical History / Comment(s): pt's father had ra, mother had 16 children was healthy most of her life age 93 from alzheimers. Mother Family Medical History: Dementia Father Family Medical History: Rheumatoid Arthritis (RA) Medications and Allergies Home Medications Medication Instructions Recorded Confirmed Type oxyCODONE HCL/ACETAMINOPHEN 2 tab PO Q6H PRN 03/13/14 06/11/18 History [Percocet 10-325 mg] Folic Acid 1 mg PO DAILY 01/12/18 06/11/18 History Methotrexate Inject 25mg/Ml 1 dose IM FR 01/12/18 06/11/18 History Allergies Allergy/AdvReac Type Severity Reaction Status Date / Time No Known Allergies Allergy Verified 06/11/18 12:42 Physical Exam Vitals: Vital Signs Temp Pulse Resp BP Pulse Ox 06/11/18 14:32 103 H 18 105/56 96 06/11/18 12:32 102.2 F H 114 H 20 119/59 94 L Intake and Output 06/11/18 06/11/18 06/11/18 06:59 14:59 22:59 Other: Weight 81.647 kg Head normocephalic Neck supple Lungs diminished bilaterally and scattered expiratory wheezes Heart regular rate and rhythm S1-S2, no rub or gallop Abdomen is soft nontender nondistended positive bowel sounds no hepatosplenomegaly Extremities no edema. Left knee edema with decreased range of motion Neuro alert and orientated to 3 Results CBC & Chem 7: 06/11/18 12:57 06/11/18 12:57 Labs: Abnormal Lab Results - Last 24 Hours (Table) 06/11/18 06/11/18 06/11/18 Range/Units 12:57 12:57 12:57 WBC 20.1 H (3.8-10.6) k/uL MCV 101.2 H (80.0-100.0) fL Neutrophils # 17.2 H (1.3-7.7) k/uL APTT (22.0-30.0) sec Sodium 134 L (137-145) mmol/L Glucose 116 H (74-99) mg/dL Total Creatine Kinase 37 L (55-170) U/L Total Protein 5.7 L (6.3-8.2) g/dL Albumin 3.0 L (3.5-5.0) g/dL Urine Protein (Negative) 06/11/18 06/11/18 Range/Units 12:57 13:39 WBC (3.8-10.6) k/uL MCV (80.0-100.0) fL Neutrophils # (1.3-7.7) k/uL APTT 21.7 L (22.0-30.0) sec Sodium (137-145) mmol/L Glucose (74-99) mg/dL Total Creatine Kinase (55-170) U/L Total Protein (6.3-8.2) g/dL Albumin (3.5-5.0) g/dL Urine Protein Trace H (Negative) Assessment and Plan Assessment: 1. Sepsis secondary to left knee septic arthroplasty. White blood cell 20.2. Wound and blood cultures have been ordered. Joint aspiration performed emergency room. Infectious disease has been consulted. Continue vancomycin per infectious disease. Patient febrile with temp of 102.2. Plan for I&D of left knee today with Dr. Fisher 2. History of COPD. Patient states he does wear home O2 at night. Chest x- ray completed showing right-sided pleural effusion. Underlying infiltrate not excluded 3. History of pancreatitis 4. History of coronary artery disease 5. History of rheumatoid arthritis. Patient was on methotrexate and followed by electrical assembly technician 6. History of GERD 7. History of heart catheterization or stent in November 2016. 8. Tachycardia. EKG showing sinus tachycardia likely related to febrile state. GI prophylaxis Pepcid and DVT prophylaxis Lovenox Time with Patient: Greater than 30 (Greater than 60% of the total time spent in counseling and coordination of care. I performed an examination of the patient and discussed their management with the Nurse Practitioner. I have reviewed the Nurse Practitioner's notes and agree with the documented findings and plan of care)
[2018-06-11] MEDS ORDERED: fentaNYL (PF) 50 MCG/ML 2 ML AMP IVP STA (15:48)
--- NOTE | 2018-06-11 16:53 | P.CNOR ---
History of Present Illness - [facility] Consult date: 06/11/18 Consult reason: other (Right knee septic arthritis) History of present illness: The patient is a 73-year-old male who presented to the emergency department with increased left knee and shoulder pain. The patient is status post left total knee arthroplasty by Dr. Fisher and left total shoulder arthroplasty by Dr. Sonido Purvis in the past. The patient does have a history of rheumatoid arthritis and takes methotrexate. He states that yesterday all this and he started to have severe left knee pain. He denies having fever, chills, rigors, shortness of breath, chest pain and abdominal pain. The patient family states that he has had small sores on his hands and legs over the last year and medical doctor is aware. No other source of infection is found at this time. Review of Systems Constitutional: Denies chills, Denies fatigue, Denies fever Cardiovascular: Denies chest pain, Denies shortness of breath Respiratory: Denies cough Gastrointestinal: Denies diarrhea, Denies nausea, Denies vomiting Musculoskeletal: left: knee pain, knee stiffness, knee swelling, shoulder pain, shoulder stiffness, shoulder swelling Past Medical History Past Medical History: Coronary Artery Disease (CAD), COPD, GERD/Reflux, Pneumonia, Rheumatoid Arthritis (RA) Additional Past Medical History / Comment(s): Pancreatitis couple times a year, 2012 past medical record documents viral pericarditis but pt denies, gastritis, has home O2 at HS only but has not been using. He is scheduled for outpatient sleep study on June 26. History of Any Multi-Drug Resistant Organisms: None Reported Past Surgical History: Heart Catheterization With Stent, Joint Replacement, Orthopedic Surgery Additional Past Surgical History / Comment(s): Total L knee arthroplasty, R total shoulder, L ankle ORIF d/t fracture, EGD, left rotator cuff repair Past Anesthesia/Blood Transfusion Reactions: No Reported Reaction Additional Past Anesthesia/Blood Transfusion Reaction / Comm: Pt states he has never recieved blood. Date of Last Stent Placement:: 12/10/16 Past Psychological History: No Psychological Hx Reported Smoking Status: Former smoker Past Alcohol Use History: None Reported Additional Past Alcohol Use History / Comment(s): Patient was a smoker one to one and half packs per day for 40+ years and quit 2 years ago when he had cardiac stents done. He uses a synthetic marijuana at nighttime only for his arthritis to help him sleep. He denies any other street drug use, alcohol use. 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 He lives at home with his . Past Drug Use History: None Reported - Past Family History Sister(s) Family Medical History: Cancer Additional Family Medical History / Comment(s): pt's father had ra, mother had 16 children was healthy most of her life age 93 from alzheimers. Mother Family Medical History: Dementia Father Family Medical History: Rheumatoid Arthritis (RA) Medications and Allergies Home Medications Medication Instructions Recorded Confirmed Type oxyCODONE HCL/ACETAMINOPHEN 2 tab PO Q6H PRN 03/13/14 06/11/18 History [Percocet 10-325 mg] Folic Acid 1 mg PO DAILY 01/12/18 06/11/18 History Methotrexate Inject 25mg/Ml 1 dose IM FR 01/12/18 06/11/18 History Allergies Allergy/AdvReac Type Severity Reaction Status Date / Time No Known Allergies Allergy Verified 06/11/18 16:45 Physical Examination The patient is a 73-year-old male who is in no acute distress. He is alert and oriented 3. There is multiple small scabs throughout his arms and legs. Exam of the left knee reveals swelling and slight erythema. There is a well-healed incision to the anterior aspect. There is pain to palpation throughout the knee and pain upon range of motion. Calf is soft and nontender. Circulatory and neurovascular status is intact. Exam of the left shoulder reveals pain to palpation to the entire shoulder. There is no erythema and minimal swelling present. There is pain to range of motion. The remaining arm is soft and nontender. Circulatory and neurological status is intact. Results - Labs Labs: Abnormal Lab Results - Last 24 Hours (Table) 06/11/18 06/11/18 06/11/18 Range/Units 12:57 12:57 12:57 WBC 20.1 H (3.8-10.6) k/uL MCV 101.2 H (80.0-100.0) fL Neutrophils # 17.2 H (1.3-7.7) k/uL APTT (22.0-30.0) sec Sodium 134 L (137-145) mmol/L Glucose 116 H (74-99) mg/dL Total Creatine Kinase 37 L (55-170) U/L Total Protein 5.7 L (6.3-8.2) g/dL Albumin 3.0 L (3.5-5.0) g/dL Urine Protein (Negative) 06/11/18 06/11/18 Range/Units 12:57 13:39 WBC (3.8-10.6) k/uL MCV (80.0-100.0) fL Neutrophils # (1.3-7.7) k/uL APTT 21.7 L (22.0-30.0) sec Sodium (137-145) mmol/L Glucose (74-99) mg/dL Total Creatine Kinase (55-170) U/L Total Protein (6.3-8.2) g/dL Albumin (3.5-5.0) g/dL Urine Protein Trace H (Negative) H & H 06/11/18 Range/Units 12:57 Hgb 16.3 (13.0-17.5) gm/dL Hct 51.4 (39.0-53.0) % Coagulation 06/11/18 Range/Units 12:57 INR 1.1 (<1.2) Result Diagrams: 06/11/18 12:57 06/11/18 12:57 - Diagnostic results Shoulder x-ray: other (No x-rays available.) Knee x-ray: other (No x-rays available.) Assessment and Plan (1) Septic arthritis of knee, left Current Visit: Yes Status: Acute Code(s): M00.9 - PYOGENIC ARTHRITIS, UNSPECIFIED SNOMED Code(s): 027820694 (2) Status post left knee replacement Current Visit: Yes Status: Acute Code(s): Z96.652 - PRESENCE OF LEFT ARTIFICIAL KNEE JOINT SNOMED Code(s): 3347186750367 (3) Cellulitis of left upper extremity Current Visit: Yes Status: Acute Code(s): L03.114 - CELLULITIS OF LEFT UPPER LIMB SNOMED Code(s): 356623183 (4) Rheumatoid arthritis Current Visit: No Status: Chronic Code(s): M06.9 - RHEUMATOID ARTHRITIS, UNSPECIFIED SNOMED Code(s): 05324690 Plan: The clinical findings were discussed with the patient and the patient's family. The patient will undergo a incision and drainage of the left shoulder and incision and drainage of the left knee with possible hardware removal and antibiotic spacer placement today. The patient has remained nothing by mouth. The patient has been evaluated and cleared by medical management and infectious disease. The patient will most likely need IV antibiotic therapy postoperatively. We will continue to follow patient closely and make further recommendations as needed.
[2018-06-11] MEDS ORDERED: IV FLUID CONTINUATION 1,000 ML IV ONE (16:57)
[2018-06-11] MEDS ORDERED: SUCCINYLCHOLINE CHLORIDE 100 MG/5 ML SYR IV ONE (17:38)
[2018-06-11] MEDS ORDERED: ROCURONIUM BROMIDE 10 MG/ML 10 ML VIAL IV ONE (17:38)
[2018-06-11] MEDS ORDERED: fentaNYL (PF) 50 MCG/ML 2 ML AMP ONE (17:38)
[2018-06-11] MEDS ORDERED: MIDAZOLAM 2 MG/2 ML VIAL ONE (17:38)
[2018-06-11] MEDS ORDERED: PHENYLEPHRINE-0.9% NACL SYG 1 MG/10 ML SYRINGE ONE (17:38)
[2018-06-11] MEDS ORDERED: LIDOCAINE 1% INJ 10MG/ML (20 ML MDV) ONE (17:38)
[2018-06-11] MEDS ORDERED: ceFAZolin 3,000 MG in SODIUM CHLORIDE 0.9% IRRIGATIO 3,000 ML IRRIGATION ONE (18:16)
[2018-06-11] MEDS ORDERED: LACTATED RINGERS 1,000 ML IV ONE ×4 (19:14→19:16)
[2018-06-11] MEDS ORDERED: NA PHOS,M-B/NA PHOS,DI-BA 133 ML ENEMA RECTAL PRN (19:55)
[2018-06-11] MEDS ORDERED: ONDANSETRON 4 MG/2 ML VIAL IVP PRN (19:55)
[2018-06-11] MEDS ORDERED: MAGNESIUM HYDROXIDE 2,400 MG/10 ML CUP PO PRN (19:55)
[2018-06-11] MEDS ORDERED: TEMAZEPAM 15 MG CAP PO PRN (19:55)
[2018-06-11] MEDS ORDERED: HYDROmorphone 0.5 MG/0.5 ML SYRINGE IVP PRN ×3 (19:55)
[2018-06-11] MEDS ORDERED: BISACODYL 10 MG SUPP RECTAL PRN (19:55)
[2018-06-11] MEDS ORDERED: hydrOXYzine PAMOATE 25 MG CAP PO PRN (19:55)
[2018-06-11 20:00] LABS: Glucose,Whole Blood 116 mg/dL (75-99)
[2018-06-11 20:43] LABS: ABG Base Excess -3.2 mmol/L; ABG HCO3 24 mmol/L (21-25); ABG Oxygen Saturation 93.4 % (94-97); ABG PCO2 51 mmHg (35-45); ABG PH 7.28 (7.35-7.45); ABG PO2 70 mmHg (83-108); ABG TCO2 25 mmol/L (19-24)
--- NOTE | 2018-06-11 21:09 | XR ---
EXAMINATION TYPE: XR knee limited LT DATE OF EXAM: 06/11/2018 COMPARISON: NONE HISTORY: Postop TECHNIQUE: 2 views FINDINGS: There is new left knee prosthesis. There our anterior lakisha. Components appear in anatomi c position. IMPRESSION: No complicating process seen.
--- NOTE | 2018-06-11 21:20 | XR ---
EXAMINATION TYPE: XR chest 1V portable DATE OF EXAM: 06/11/2018 COMPARISON: Today HISTORY: Check tube placement TECHNIQUE: Single frontal view of the chest is obtained. FINDINGS: Endotracheal tube is 2 cm from the tiffany. There is pulmonary vascular congestion. There i s moderate size right pleural effusion. Heart is probably enlarged. There are chest leads. IMPRESSION: There is probably congestive heart failure that is the same or slightly worse than exam earlier today at 2:00 PM. Right pleural effusion appears increased.
[2018-06-11] MEDS ORDERED: HYDROmorphone 1 MG/ML 1 ML SYRINGE IVP PRN ×2 (21:28→21:29)
[2018-06-11 21:41] LABS: Appearance,Urine Clear (Clear); Bacteria,Urine Rare /hpf; Bilirubin,Urine Negative (Negative); Blood,Urine Small (Negative); Color,Urine Light Yellow; Glucose,Urine (UA) Negative (Negative); Ketones,Urine Negative (Negative); Leukocyte Esterase,Urine Negative (Negative); Mucus,Urine Rare /hpf; Nitrite,Urine Negative (Negative); Protein,Urine Negative (Negative); RBC,Urine 12 /hpf (0-5); Specific Gravity,Urine 1.009 (1.001-1.035); Urobilinogen,Urine <2.0 mg/dL (<2.0)
[2018-06-11] MEDS: PROPOFOL 1,000 MG in EMPTY BAG 1 BAG IV SCH ×2 (21:46→23:28)
[2018-06-11] MEDS: NOREPINEPHRINE 4 MG in SODIUM CHLORIDE 0.9% 250 ML IV SCH (22:00)
[2018-06-11] MEDS: ATORVASTATIN 40 MG TAB PO SCH (23:10)
[2018-06-11] MEDS: SENNOSIDES-DOCUSATE SODIUM 1 EACH TAB PO SCH (23:10)
[2018-06-11] MEDS: LACTATED RINGERS 1,000 ML IV SCH (23:11)
[2018-06-11] MEDS: FUROSEMIDE 10 MG/ML 4 ML VIAL IV STA (23:12)
--- NOTE | 2018-06-11 23:15 | P.CON ---
Consult Note - . Consult date: 06/11/18 Assessment/Plan:: This is a 73-year-old male who has a significant past history of rheumatoid arthritis for 20-25 years under the care of Dr. Tillman currently on methotrexate, prednisone and infusion monthly and was last administered last week. Patient also has history of a left total knee arthroplasty done 15 years ago. Yesterday he noticed sudden onset of pain to the left knee with a little swelling. He denies any known fever, chills or rigors. No change in appetite. No generalized body aches. Positive malaise. Patient came into [facility] emergency center for evaluation. He had a temperature of 102.2, tachycardia 114 and leukocytosis at 20.1. A joint aspiration was done by the ER with purulent drainage from the left knee. Patient is also complaining of left shoulder pain and is status post left rotator cuff repair. Patient has been seen by orthopedics who planned for I&D this evening. Lactic acid was 1.7 , wound culture, blood culture status received. Urinalysis was negative for infection. Patient also gives history of having skin lesions all over his body which causes some itching and on his hands these lesions as well and he ends up poking them with a needle and pus and blood come out. The last one he did was 4 days ago on the left index finger. He feels that he has had these lesions since he started a new medication with Dr. Tillman but apparently Dr. Tillman does not agree with this. he has been given a dose of cefepime and vancomycin. His tetanus status was last updated. Please see the consult note as dictated by nurse practitioner Roselia Hdzkimber. 73-year-old gentleman has had a significant intervention to the left knee and left shoulder with significant abscess that developed in these areas. Postoperatively the patient remains in the intensive care unit he remains intubated is having some difficulties. X-rays evaluated appears to have a right pneumothorax being partially related to the floor hand. Given the patient's relative immunocompromised there is concern for possibility of gram- negative infection and cephapirin is utilized as well as vancomycin also due to his significant immunosuppressed status. Methotrexate must be held while he is ill and recovering. Cultures are process which will further direct our therapy. Unclear if he'll require further surgical intervention before he is ready for his protracted course of antibiotic therapy for these complex infections.
[2018-06-11] MEDS: PANTOPRAZOLE 40 MG/10 ML VIAL IV SCH (23:31)
[2018-06-12] MEDS ORDERED: HEPARIN SODIUM,PORCINE 5,000 UNIT/ML 1 ML VIAL SQ SCH
[2018-06-12] MEDS: HYDROmorphone 1 MG/ML 1 ML SYRINGE IVP PRN ×4 (00:29→21:27)
[2018-06-12] MEDS: CEFEPIME 2 GM in SODIUM CHLORIDE 0.9% 50 ML IVPB SCH ×4 (00:30→23:53)
[2018-06-12] MEDS ORDERED: ACETAMINOPHEN IV (For NPO) 1,000 MG in EMPTY BAG 1 BAG IVPB PRN (01:50)
[2018-06-12] MEDS: PROPOFOL 1,000 MG in EMPTY BAG 1 BAG IV SCH ×2 (03:48→07:41)
[2018-06-12 05:13] LABS: Basophils # (A) 0.1 k/uL (0-0.2); Basophils % (A) 0 %; Eosinophils # (A) 0.1 k/uL (0-0.7); Eosinophils % (A) 0 %; HCT 46.6 % (39.0-53.0); HGB 14.9 gm/dL (13.0-17.5); Lymphocytes # (A) 1.8 k/uL (1.0-4.8); Lymphocytes % (A) 9 %; MCH 32.6 pg (25.0-35.0); MCV 101.9 fL (80.0-100.0); Macrocytosis Slight; Mean Platelet Volume 6.6; Monocytes # (A) 0.8 k/uL (0-1.0); Monocytes % (A) 4 %; Neutrophils # (A) 17.1 k/uL (1.3-7.7); Neutrophils % (A) 85 %; Platelet Count 307 k/uL (150-450); RBC 4.57 m/uL (4.30-5.90); RDW 14.5 % (11.5-15.5); WBC 20.1 k/uL (3.8-10.6)
[2018-06-12 05:24] LABS: ALT 28 U/L (21-72); AST 22 U/L (17-59); Albumin 2.5 g/dL (3.5-5.0); Alkaline Phosphatase 62 U/L (38-126); Anion Gap 7 mmol/L; Blood Urea Nitrogen 16 mg/dL (9-20); Carbon Dioxide 20 mmol/L (22-30); Chloride 106 mmol/L (98-107); Glucose 136 mg/dL (74-99); Magnesium 1.4 mg/dL (1.6-2.3); Phosphorus 3.9 mg/dL (2.5-4.5); Potassium 4.4 mmol/L (3.5-5.1); Sodium 133 mmol/L (137-145); Total Bilirubin 0.6 mg/dL (0.2-1.3)
[2018-06-12] MEDS: NOREPINEPHRINE 4 MG in SODIUM CHLORIDE 0.9% 250 ML IV SCH ×2 (05:30→19:00)
[2018-06-12 05:42] LABS: C Reactive Protein 179.9 mg/L (<10.0)
[2018-06-12] MEDS: VANCOMYCIN 1,500 MG in SODIUM CHLORIDE 0.9% 250 ML IVPB SCH ×2 (05:46→17:46)
[2018-06-12] MEDS: MAGNESIUM SULFATE-D5W PMX 1 GM in DEXTROSE/WATER 1 100ML.BAG IVPB SCH ×3 (06:06→08:34)
[2018-06-12 06:11] LABS: Erythrocyte Sedimentation Rate 5 mm/hr (0-15)
[2018-06-12] MEDS: KETOROLAC 30 MG/ML 1 ML VIAL IVP SCH ×4 (06:55→23:57)
--- NOTE | 2018-06-12 07:14 | XR ---
EXAMINATION TYPE: XR chest 1V portable DATE OF EXAM: 06/12/2018 Comparison: 06/11/2018 Clinical History: 73-year-old male Tube placement Findings: ET tube satisfactory. It appears to have been slightly pulled back in the interval. Heart appears nor mal size. Prominent skeletal folds on the right. Small right greater than left pleural effusions pers ist, slightly improved on the right. Interstitial densities and patchy right mid and lower lung densi ties remain. Reverse right total shoulder arthroplasty. Impression: 1. Small right greater than left pleural effusions with adjacent atelectasis and/or consolidation wit h slight interval improvement on the right. 2. Possible background of CHF. 3. Questionable nodular density at the left midlung not seen previously may be summation artifact. At tention on follow-up.
[2018-06-12 07:15] LABS: ABG Base Excess -0.8 mmol/L; ABG HCO3 23 mmol/L (21-25); ABG Oxygen Saturation 98.7 % (94-97); ABG PCO2 33 mmHg (35-45); ABG PH 7.45 (7.35-7.45); ABG PO2 98 mmHg (83-108); ABG TCO2 24 mmol/L (19-24)
[2018-06-12] MEDS: PANTOPRAZOLE 40 MG/10 ML VIAL IV SCH (08:32)
[2018-06-12] MEDS: ENOXAPARIN 40 MG/0.4 ML SYRINGE SQ SCH (08:34)
[2018-06-12] MEDS ORDERED: ATENOLOL 25 MG TAB PO SCH (09:00)
[2018-06-12] MEDS ORDERED: CHLORHEXIDINE GLUCONATE 15 ML CUP MUCOUS MEM SCH (09:00)
[2018-06-12] MEDS ORDERED: FUROSEMIDE 10 MG/ML 4 ML VIAL IV STA (09:24)
[2018-06-12] MEDS: FUROSEMIDE 10 MG/ML 4 ML VIAL IV STA (09:27)
--- NOTE | 2018-06-12 10:02 | P.PN ---
Subjective Progress Note Date: 06/12/18 This is a 73-year-old patient of Dr. Montemayor. Patient presented to the emergency room with complaint of left knee pain. Patient also states he's been having fevers and chills at home. Patient has a known past medical history of rheumatoid arthritis in which she follows with [employer] and was on methotrexate. Additional medical history includes coronary artery disease, COPD , GERD, pneumonia and pancreatitis multiple episodes. Chest x-ray completed emergency room showing right-sided pleural effusion. Underlying infiltrate is not excluded. EKG completed showing sinus tachycardia. Dr. Fisher per orthopedic services consulted. Patient had joint aspiration that was done in ER with purulent drainage from the left knee. Patient is also complaining of left shoulder pain in his status post left rotator cuff repair. Patient is scheduled for a [address] Fisher. White blood count 20.1. Blood culture and wound cultures have been received. Lactic acid 1.7. Patient febrile with a temp of 102.2. Infectious disease has been consulted. Vancomycin IV antibiotic ordered. UA negative. Patient denies chest pain or shortness of breath. Does complain of pain and left knee. Patient denies any nausea vomiting or diarrhea. Patient denies any urinary burning or frequency On 06/12/2018 patient is currently on mechanical ventilation in the intensive care unit. Patient underwent an incision and drainage of the left shoulder and an incision and drainage of the left knee with hardware removal and antibiotic spacer placement yesterday with Dr. Fisher. Patient came back from surgery on the ventilator. At this time patient is requiring Levophed for pressure support. Dr. Paul is following for infectious disease. Dr. Samuel is on for critical care management and pulmonary support. Possible attempt for weaning and Patient today. Objective - Vital Signs Vital signs: Vital Signs Temp 98.7 F 06/12/18 08:00 Pulse 92 06/12/18 09:00 Resp 16 06/12/18 09:00 BP 92/59 06/12/18 09:00 Pulse Ox 100 06/12/18 09:00 Intake & Output 06/11/18 06/12/18 06/12/18 18:59 06:59 18:59 Intake Total 1950 967.025 600.262 Output Total 2059 250 Balance 1950 -1092.975 350.262 Weight 81.647 kg 88.5 kg Intake: IV 1951 510 345 ACETAMINOPHEN IV (For NPO 100 ) 1,000 mg In Empty Bag 1 bag @ 400 mls/hr IVPB Q6HR PRN Rx#:[id number] Cefepime 2 gm In Sodium 50 Chloride 0.9% 50 ml @ 100 mls/hr IVPB ONCE STA Rx# :[id number] Magnesium Sulfate-D5w Pmx 200 1 gm In Dextrose/Water 1 100ml.bag @ 100 mls/hr IVPB Q1H SURYA Rx#: [id number] Sodium Chloride 0.9% 1, 160 20 000 ml @ 20 mls/hr IV . Q24H SURYA Rx#:[id number] Vancomycin 2,000 mg In 125 Sodium Chloride 0.9% 500 ml @ 167 mls/hr IVPB ONCE ONE Rx#:[id number] Intake, IV Titration 457.025 155.262 Amount Norepinephrine 4 mg In 318.250 30.0 Sodium Chloride 0.9% 250 ml @ Titrate IV .Q0M SURYA Rx#:[id number] Propofol 1,000 mg In 138.775 125.262 Empty Bag 1 bag @ 20 MCG/ KG/MIN 9.79 mls/hr IV . [id number] [facility] Rx#:[id number] Lipid 100 Cefepime 2 gm In Sodium 100 Chloride 0.9% 50 ml @ 100 mls/hr IVPB ONCE STA Rx# :[id number] Output: Urine 1960 250 Estimated Blood Loss 100 Other: Voiding Method Indwelling Catheter Indwelling Catheter - Exam Head normocephalic Neck supple Lungs patient currently mechanical ventilation. Expiratory wheezing Heart regular rate and rhythm S1-S2, no rub or gallop Abdomen is soft nontender nondistended positive bowel sounds no hepatosplenomegaly Extremities no edema. Left shoulder dressing clean dry and intact. Left leg brace in place dressing clean dry and intact Neuro patient currently on sedation - Labs CBC & Chem 7: 06/12/18 04:36 06/12/18 04:36 Labs: Abnormal Lab Results - Last 24 Hours (Table) 06/11/18 06/11/18 06/11/18 Range/Units 12:57 12:57 12:57 WBC 20.1 H (3.8-10.6) k/uL MCV 101.2 H (80.0-100.0) fL Neutrophils # 17.2 H (1.3-7.7) k/uL APTT (22.0-30.0) sec ABG pH (7.35-7.45) ABG pCO2 (35-45) mmHg ABG pO2 (83-108) mmHg ABG Total CO2 (19-24) mmol/L ABG O2 Saturation (94-97) % Sodium 134 L (137-145) mmol/L Carbon Dioxide (22-30) mmol/L Glucose 116 H (74-99) mg/dL POC Glucose (mg/dL) (75-99) mg/dL Calcium (8.4-10.2) mg/dL Magnesium (1.6-2.3) mg/dL Total Creatine Kinase 37 L (55-170) U/L C-Reactive Protein (<10.0) mg/L Total Protein 5.7 L (6.3-8.2) g/dL Albumin 3.0 L (3.5-5.0) g/dL Urine Protein (Negative) Urine Blood (Negative) Urine RBC (0-5) /hpf Urine Bacteria (None) /hpf Urine Mucus (None) /hpf 06/11/18 06/11/18 06/11/18 Range/Units 12:57 13:39 19:58 WBC (3.8-10.6) k/uL MCV (80.0-100.0) fL Neutrophils # (1.3-7.7) k/uL APTT 21.7 L (22.0-30.0) sec ABG pH (7.35-7.45) ABG pCO2 (35-45) mmHg ABG pO2 (83-108) mmHg ABG Total CO2 (19-24) mmol/L ABG O2 Saturation (94-97) % Sodium (137-145) mmol/L Carbon Dioxide (22-30) mmol/L Glucose (74-99) mg/dL POC Glucose (mg/dL) 116 H (75-99) mg/dL Calcium (8.4-10.2) mg/dL Magnesium (1.6-2.3) mg/dL Total Creatine Kinase (55-170) U/L C-Reactive Protein (<10.0) mg/L Total Protein (6.3-8.2) g/dL Albumin (3.5-5.0) g/dL Urine Protein Trace H (Negative) Urine Blood (Negative) Urine RBC (0-5) /hpf Urine Bacteria (None) /hpf Urine Mucus (None) /hpf 06/11/18 06/11/18 06/12/18 Range/Units 20:40 21:26 04:36 WBC (3.8-10.6) k/uL MCV (80.0-100.0) fL Neutrophils # (1.3-7.7) k/uL APTT (22.0-30.0) sec ABG pH 7.28 L (7.35-7.45) ABG pCO2 51 H (35-45) mmHg ABG pO2 70 L (83-108) mmHg ABG Total CO2 25 H (19-24) mmol/L ABG O2 Saturation 93.4 L (94-97) % Sodium 133 L (137-145) mmol/L Carbon Dioxide 20 L (22-30) mmol/L Glucose 136 H (74-99) mg/dL POC Glucose (mg/dL) (75-99) mg/dL Calcium 8.0 L (8.4-10.2) mg/dL Magnesium 1.4 L (1.6-2.3) mg/dL Total Creatine Kinase (55-170) U/L C-Reactive Protein 179.9 H (<10.0) mg/L Total Protein 5.0 L (6.3-8.2) g/dL Albumin 2.5 L (3.5-5.0) g/dL Urine Protein (Negative) Urine Blood Small H (Negative) Urine RBC 12 H (0-5) /hpf Urine Bacteria Rare H (None) /hpf Urine Mucus Rare H (None) /hpf 06/12/18 06/12/18 Range/Units 04:36 07:14 WBC 20.1 H (3.8-10.6) k/uL MCV 101.9 H (80.0-100.0) fL Neutrophils # 17.1 H (1.3-7.7) k/uL APTT (22.0-30.0) sec ABG pH (7.35-7.45) ABG pCO2 33 L (35-45) mmHg ABG pO2 (83-108) mmHg ABG Total CO2 (19-24) mmol/L ABG O2 Saturation 98.7 H (94-97) % Sodium (137-145) mmol/L Carbon Dioxide (22-30) mmol/L Glucose (74-99) mg/dL POC Glucose (mg/dL) (75-99) mg/dL Calcium (8.4-10.2) mg/dL Magnesium (1.6-2.3) mg/dL Total Creatine Kinase (55-170) U/L C-Reactive Protein (<10.0) mg/L Total Protein (6.3-8.2) g/dL Albumin (3.5-5.0) g/dL Urine Protein (Negative) Urine Blood (Negative) Urine RBC (0-5) /hpf Urine Bacteria (None) /hpf Urine Mucus (None) /hpf Microbiology - Last 24 Hours (Table) 06/11/18 13:39 Gram Stain - Preliminary Knee - Left Wound Culture - Preliminary 06/11/18 12:57 Blood Culture Gram Stain - Preliminary Blood 06/11/18 19:17 Gram Stain - Preliminary Shoulder - Left Wound Culture - Preliminary 06/11/18 19:17 Gram Stain - Preliminary Knee - Left Wound Culture - Preliminary 06/11/18 12:57 Blood Culture - Final Blood 06/11/18 19:17 Anaerobic Culture - Preliminary Knee - Left 06/11/18 19:17 Anaerobic Culture - Preliminary Shoulder - Left 06/11/18 13:39 Urine Culture - Preliminary Urine,Clean Catch 06/11/18 13:39 Anaerobic Culture - Preliminary Knee - Left Assessment and Plan Assessment: 1. Sepsis secondary to left knee septic arthroplasty. White blood cell 20.2. Wound and blood cultures have been ordered. Joint aspiration performed emergency room. Infectious disease has been consulted. Continue vancomycin per infectious disease. Patient febrile with temp of 102.2. Plan for I&D of left knee today with Dr. Fisher. On 06/11 patient underwent incision changes of the left shoulder incision and drainage of the left knee with hardware removal and antibiotic spacer placement with Dr. Fisher. White blood cell remains 20.1. Patient febrile last night with temp 102.3. Dr. Paul following for infectious disease. Patient currently on vancomycin and Maxipime. Awaiting blood and wound cultures. 2. Acute respiratory failure requiring mechanical ventilation post procedure and underlying history of COPD. Patient currently on mechanical ventilation. Patient being followed by Dr. Samuel for Pulmonary and critical care. Chest x- ray completed showing small right greater than left pleural effusion with adjacent atelectasis and/or consolidation likely interval improvement on the right. Possible background CHF. Questionable nodule density at the left midlung not seen previously may be summation artifact. 3. History of pancreatitis 4. History of coronary artery disease 5. History of rheumatoid arthritis. 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 Methotrexate currently on hold due to infection 6. History of GERD 7. History of heart catheterization or stent in November 2016. Lipitor and aspirin ordered. 8. Tachycardia. EKG showing sinus tachycardia likely related to febrile state. 9. Hypotension likely secondary to sepsis. Patient currently on levophed for blood pressure support GI prophylaxis Pepcid and DVT prophylaxis Lovenox I performed an examination of the patient and discussed their management with the Nurse Practitioner. I have reviewed the Nurse Practitioner's notes and agree with the documented findings and plan of care
--- NOTE | 2018-06-12 11:17 | ECHOF ---
Referral Reason:Endocarditis MEASUREMENTS -------- HEIGHT: 170.2 cm WEIGHT: 88.5 kg BP: 90/67 RVIDd: 2.9 cm (< 3.3) IVSd: 1.0 cm (0.6 - 1.1) LVIDd: 3.0 cm (3.9 - 5.3) LVPWd: 1.0 cm (0.6 - 1.1) IVSs: 1.3 cm LVIDs: 2.4 cm LVPWs: 1.4 cm LAESV Index (A-L): 17.19 ml/m Ao Diam: 2.9 cm (2.0 - 3.7) AV Cusp: 1.9 cm (1.5 - 2.6) MV EXCURSION: 18.395 mm (> 18.000) MV EF SLOPE: 97 mm/s (70 - 150) EPSS: 0.3 cm MV E Laurent: 0.63 m/s MV DecT: 310 ms MV A Laurent: 0.82 m/s MV E/A Ratio: 0.77 RAP: 5.00 mmHg RVSP: 30.18 mmHg FINDINGS -------- Sinus rhythm. This was a technically adequate study. The left ventricular size is normal. Left ventricular wall thickness is normal. Overall left vent ricular systolic function is normal with, an EF between 55 - 60 %. The right ventricle is normal in size. Normal LA size by volume 22+/-6 ml/m2. The right atrium is normal in size. Lipomatous Hypertrophy of the atrial septum is present Aortic valve is trileaflet and is mildly thickened. The mitral valve is normal. Mild mitral regurgitation is present. Mild tricuspid regurgitation present. There is no evidence of pulmonary hypertension. The right v entricular systolic pressure, as measured by Doppler, is 30.18mmHg. The pulmonic valve was not well visualized. There is no pulmonic regurgitation present. The aortic root size is normal. Normal inferior vena cava with normal inspiratory collapse consistent with estimated right atrial pre ssure of 5 mmHg. There is no pericardial effusion. CONCLUSIONS -------- 1. Sinus rhythm. 2. This was a technically adequate study. 3. The left ventricular size is normal. 4. Left ventricular wall thickness is normal. 5. Overall left ventricular systolic function is normal with, an EF between 55 - 60 %. 6. Normal LA size by volume 22+/-6 ml/m2. 7. Lipomatous Hypertrophy of the atrial septum is present 8. Aortic valve is trileaflet and is mildly thickened. 9. The mitral valve is normal. 10. Mild mitral regurgitation is present. 11. Mild tricuspid regurgitation present. 12. There is no evidence of pulmonary hypertension. 13. There is no pulmonic regurgitation present. 14. The aortic root size is normal. 15. Normal inferior vena cava with normal inspiratory collapse consistent with estimated right atrial pressure of 5 mmHg. 16. There is no pericardial effusion. [facility] DIRECTOR: Emmie Tiwari RDCS
[2018-06-12] MEDS ORDERED: IPRATROPIUM-ALBUTEROL 3 ML NEB INHALATION PRN (11:58)
--- NOTE | 2018-06-12 12:05 | OP ---
OPERATIVE REPORT DATE OF SERVICE: 06/11/2018 SURGEON: DINO ESTRADA D.O. JUKEBOX CHECKER: Emilia Onofre NP. PREOPERATIVE DIAGNOSES: 1. Possible septic arthritis of the left shoulder. 2. Septic arthritis of the left knee, post total knee replacement. POSTOPERATIVE DIAGNOSES: 1. Synovitis left shoulder without active infection and chronic left rotator cuff tear. 2. Septic arthritis of the left knee with previous total knee replacement. OPERATION: 1. Incision of the left shoulder with culture and sensitivity. 2. Incision and drainage of the left knee with removal of total knee components, femur, tibia, patella and insertion of antibiotic spacers. PROCEDURE: Patient was taken to the operative suite and placed in supine position. General inhalation anesthesia was performed by department of anesthesiology. Betadine prep was carried out over the left shoulder and sterile drapes applied in the usual manner. Betadine prep was carried out of over the left knee from mid thigh to mid calf. Sterile drapes were applied. The left shoulder and a small 1-1/2 inch incision was developed superior and anterior. Blunt dissection through the subcutaneous tissues. The deltoid fascia was gently divided and dissection to the humeral head was carried out. Evidence of complete tearing of the rotator cuff that was appearing chronic (There was no active synovium present at this time, but joint was cultured for aerobic and anaerobic sensitivity). The area was irrigated copiously and the capsule approximated with #1 Vicryl suture. Subcutaneous tissue approximated with 2-0 Vicryl suture. The skin was approximated with skin clips. The left knee was then elevated and pneumatic tourniquet was inflated. The incision was developed over the previous total knee incision. Appropriate culture was obtained significant purulence of the left knee joint. The area was hot and . A was then developed across the quadriceps tendon. The patella was everted. In view of the significant, purulence, plan for further removal of all 3 components was initiated. The patella was and a was utilized in shaving the patellar component from the bone patella. The area around the synovium with debrided with sharp dissection and rongeur. The polyethylene at the tibia was then removed. The femoral component was with osteotomes and a flexible . Femoral component was removed in its entirety. The areas of suspicion were gently debrided. The cement was removed and its entirety. Pulsavac antibiotic solution was utilized throughout the procedure. The devitalized synovium was also excised and removed. Tibia component and screws were removed. Tibial plate was gently removed utilizing osteotome and a flexible . A was noted and it was excised. The areas of methylmethacrylate cement was removed. The area was with Pulsavac antibiotic solution. The femur and tibia were excised . The antibiotic cement was then shaped placed over the final spacers contacting bone and the knee was brought in full extension and held in position until cement had hardened. The area again was irrigated. The quadriceps tendon that had was then approximated with #2 Ethibond suture in running fashion. The medial retinaculum was approximated with #3 Dexon suture with Vicryl suture in horizontal mattress fashion. Medial retinaculum was then reapproximated with #2 Vicryl and Quill suture in running fashion. Subcutaneous tissue approximated with 2-0 Vicryl suture. Skin was approximated with skin clips. Betadine, Adaptic and sterile pressure dressing was applied. The pneumatic tourniquet was deflated. The patient was placed in knee immobilizer and transferred to the intensive care unit in condition. GROSS PATHOLOGY: There is evidence of left shoulder pain associated with a chronic left rotator cuff tear. The area was under in regards to the . The left knee showed significant purulence at this time without odor. The synovium was in preparation for in view of the significant active purulence, removal of all previous total knee components noted. The total knee was approximately years earlier. Continue to follow with patient and admitted in the ICU in view of his sepsis. MMODL / IJN: [id number] /
--- NOTE | 2018-06-12 12:16 | P.PN ---
Subjective Progress Note Date: 06/12/18 Principal diagnosis: Status post left knee hardware removal and antibiotic spacer placement and left shoulder I&D This is a 73 year-old male post left knee hardware removal and antibiotic spacer placement and left shoulder I&D. This is post-op day 1. The patient was evaluated at the bedside in the ICU today. The patient is currently intubated but is soon to be extubated His pain appears to be controlled at this time. The patient has not been up with physical therapy. Objective - Vital Signs Vital signs: Vital Signs Temp 98.7 F 06/12/18 08:00 Pulse 105 H 06/12/18 11:00 Resp 24 06/12/18 10:00 BP 99/65 06/12/18 11:00 Pulse Ox 100 06/12/18 11:00 Intake & Output 06/11/18 06/12/18 06/12/18 18:59 06:59 18:59 Intake Total 1950 967.025 758.387 Output Total 0 1075 Balance 1951 -1092.975 -316.613 Weight 81.647 kg 88.5 kg Intake: IV 1951 510 385 ACETAMINOPHEN IV (For NPO 100 ) 1,000 mg In Empty Bag 1 bag @ 400 mls/hr IVPB Q6HR PRN Rx#:[id number] Cefepime 2 gm In Sodium 50 Chloride 0.9% 50 ml @ 100 mls/hr IVPB ONCE STA Rx# :[id number] Magnesium Sulfate-D5w Pmx 200 1 gm In Dextrose/Water 1 100ml.bag @ 100 mls/hr IVPB Q1H [facility] Rx#: [id number] Sodium Chloride 0.9% 1, 160 60 000 ml @ 20 mls/hr IV . Q24H [facility] Rx#:[id number] Vancomycin 2,000 mg In 125 Sodium Chloride 0.9% 500 ml @ 167 mls/hr IVPB ONCE ONE Rx#:[id number] Intake, IV Titration 457.025 273.387 Amount Norepinephrine 4 mg In 318.250 148.125 Sodium Chloride 0.9% 250 ml @ Titrate IV .Q0M [facility] Rx#:[id number] Propofol 1,000 mg In 138.775 125.262 Empty Bag 1 bag @ 20 MCG/ KG/MIN 9.79 mls/hr IV . [id number] [facility] Rx#:[id number] Lipid 100 Cefepime 2 gm In Sodium 100 Chloride 0.9% 50 ml @ 100 mls/hr IVPB ONCE STA Rx# :[id number] Output: Urine 1960 1075 Estimated Blood Loss 100 Other: Voiding Method Indwelling Catheter Indwelling Catheter - Exam The patient does not appear in acute distress. He is currently intubated. Dressings are clean dry and intact. Incision appears fine with no erythema or active drainage. Calf is soft and nontender. Knee immobilizer in place. Sensation and circulatory status is intact. - Labs CBC & Chem 7: 06/12/18 04:36 06/12/18 04:36 Labs: Abnormal Lab Results - Last 24 Hours (Table) 06/11/18 06/11/18 06/11/18 Range/Units 12:57 12:57 12:57 WBC 20.1 H (3.8-10.6) k/uL MCV 101.2 H (80.0-100.0) fL Neutrophils # 17.2 H (1.3-7.7) k/uL APTT (22.0-30.0) sec ABG pH (7.35-7.45) ABG pCO2 (35-45) mmHg ABG pO2 (83-108) mmHg ABG Total CO2 (19-24) mmol/L ABG O2 Saturation (94-97) % Sodium 134 L (137-145) mmol/L Carbon Dioxide (22-30) mmol/L Glucose 116 H (74-99) mg/dL POC Glucose (mg/dL) (75-99) mg/dL Calcium (8.4-10.2) mg/dL Magnesium (1.6-2.3) mg/dL Total Creatine Kinase 37 L (55-170) U/L C-Reactive Protein (<10.0) mg/L Total Protein 5.7 L (6.3-8.2) g/dL Albumin 3.0 L (3.5-5.0) g/dL Urine Protein (Negative) Urine Blood (Negative) Urine RBC (0-5) /hpf Urine Bacteria (None) /hpf Urine Mucus (None) /hpf 06/11/18 06/11/18 06/11/18 Range/Units 12:57 13:39 19:58 WBC (3.8-10.6) k/uL MCV (80.0-100.0) fL Neutrophils # (1.3-7.7) k/uL APTT 21.7 L (22.0-30.0) sec ABG pH (7.35-7.45) ABG pCO2 (35-45) mmHg ABG pO2 (83-108) mmHg ABG Total CO2 (19-24) mmol/L ABG O2 Saturation (94-97) % Sodium (137-145) mmol/L Carbon Dioxide (22-30) mmol/L Glucose (74-99) mg/dL POC Glucose (mg/dL) 116 H (75-99) mg/dL Calcium (8.4-10.2) mg/dL Magnesium (1.6-2.3) mg/dL Total Creatine Kinase (55-170) U/L C-Reactive Protein (<10.0) mg/L Total Protein (6.3-8.2) g/dL Albumin (3.5-5.0) g/dL Urine Protein Trace H (Negative) Urine Blood (Negative) Urine RBC (0-5) /hpf Urine Bacteria (None) /hpf Urine Mucus (None) /hpf 06/11/18 06/11/18 06/12/18 Range/Units 20:40 21:26 04:36 WBC (3.8-10.6) k/uL MCV (80.0-100.0) fL Neutrophils # (1.3-7.7) k/uL APTT (22.0-30.0) sec ABG pH 7.28 L (7.35-7.45) ABG pCO2 51 H (35-45) mmHg ABG pO2 70 L (83-108) mmHg ABG Total CO2 25 H (19-24) mmol/L ABG O2 Saturation 93.4 L (94-97) % Sodium 133 L (137-145) mmol/L Carbon Dioxide 20 L (22-30) mmol/L Glucose 136 H (74-99) mg/dL POC Glucose (mg/dL) (75-99) mg/dL Calcium 8.0 L (8.4-10.2) mg/dL Magnesium 1.4 L (1.6-2.3) mg/dL Total Creatine Kinase (55-170) U/L C-Reactive Protein 179.9 H (<10.0) mg/L Total Protein 5.0 L (6.3-8.2) g/dL Albumin 2.5 L (3.5-5.0) g/dL Urine Protein (Negative) Urine Blood Small H (Negative) Urine RBC 12 H (0-5) /hpf Urine Bacteria Rare H (None) /hpf Urine Mucus Rare H (None) /hpf 06/12/18 06/12/18 Range/Units 04:36 07:14 WBC 20.1 H (3.8-10.6) k/uL MCV 101.9 H (80.0-100.0) fL Neutrophils # 17.1 H (1.3-7.7) k/uL APTT (22.0-30.0) sec ABG pH (7.35-7.45) ABG pCO2 33 L (35-45) mmHg ABG pO2 (83-108) mmHg ABG Total CO2 (19-24) mmol/L ABG O2 Saturation 98.7 H (94-97) % Sodium (137-145) mmol/L Carbon Dioxide (22-30) mmol/L Glucose (74-99) mg/dL POC Glucose (mg/dL) (75-99) mg/dL Calcium (8.4-10.2) mg/dL Magnesium (1.6-2.3) mg/dL Total Creatine Kinase (55-170) U/L C-Reactive Protein (<10.0) mg/L Total Protein (6.3-8.2) g/dL Albumin (3.5-5.0) g/dL Urine Protein (Negative) Urine Blood (Negative) Urine RBC (0-5) /hpf Urine Bacteria (None) /hpf Urine Mucus (None) /hpf Microbiology - Last 24 Hours (Table) 06/11/18 12:57 Blood Culture Gram Stain - Preliminary Blood 06/11/18 19:17 Gram Stain - Preliminary Knee - Left Wound Culture - Preliminary 06/11/18 13:39 Gram Stain - Preliminary Knee - Left Wound Culture - Preliminary Presumptive MRSA 06/11/18 19:17 Gram Stain - Preliminary Shoulder - Left Wound Culture - Preliminary 06/11/18 12:57 Blood Culture - Final Blood 06/11/18 19:17 Anaerobic Culture - Preliminary Knee - Left 06/11/18 19:17 Anaerobic Culture - Preliminary Shoulder - Left 06/11/18 13:39 Urine Culture - Preliminary Urine,Clean Catch 06/11/18 13:39 Anaerobic Culture - Preliminary Knee - Left Assessment and Plan (1) Septic arthritis of knee, left Current Visit: Yes Status: Acute Code(s): M00.9 - PYOGENIC ARTHRITIS, UNSPECIFIED SNOMED Code(s): 024767688 (2) Status post left knee replacement Current Visit: Yes Status: Acute Code(s): Z96.652 - PRESENCE OF LEFT ARTIFICIAL KNEE JOINT SNOMED Code(s): 9792986160860 (3) Cellulitis of left upper extremity Current Visit: Yes Status: Acute Code(s): L03.114 - CELLULITIS OF LEFT UPPER LIMB SNOMED Code(s): 497147532 (4) Rheumatoid arthritis Current Visit: No Status: Chronic Code(s): M06.9 - RHEUMATOID ARTHRITIS, UNSPECIFIED SNOMED Code(s): 40510242 (5) Status post hardware removal Current Visit: Yes Status: Acute Code(s): Z98.890 - OTHER SPECIFIED POSTPROCEDURAL STATES SNOMED Code(s): 116912588 Plan: 1. Continue pain control 2. Anticoagulation with Lovenox per medical management 3. Start physical therapy and ambulation as soon as medically stable 4. Will need PICC line placement. Will follow closely with infectious disease 5. Will continue to follow closely with internal medicine and pulmonary as well 6. Anticipate discharge to skilled rehab when medically and orthopedically stable.
[2018-06-12] MEDS: IPRATROPIUM-ALBUTEROL 3 ML NEB INHALATION SCH ×3 (13:27→20:33)
--- NOTE | 2018-06-12 14:08 | P.PN ---
Subjective Progress Note Date: 06/12/18 This is a 73-year-old male who has a significant past history of rheumatoid arthritis for 20-25 years under the care of Dr. Tillman currently on methotrexate, prednisone and infusion monthly and was last administered last week. Patient also has history of a left total knee arthroplasty done 15 years ago. Yesterday he noticed sudden onset of pain to the left knee with a little swelling. He denies any known fever, chills or rigors. No change in appetite. No generalized body aches. Positive malaise. Patient came into [facility] emergency center for evaluation. He had a temperature of 102.2, tachycardia 114 and leukocytosis at 20.1. A joint aspiration was done by the ER with purulent drainage from the left knee. Patient is also complaining of left shoulder pain and is status post left rotator cuff repair. Patient has been seen by orthopedics who planned for I&D this evening. Lactic acid was 1.7 , wound culture, blood culture status received. Urinalysis was negative for infection. Patient also gives history of having skin lesions all over his body which causes some itching and on his hands these lesions as well and he ends up poking them with a needle and pus and blood come out. The last one he did was 4 days ago on the left index finger. He feels that he has had these lesions since he started a new medication with Dr. Tillman but apparently Dr. Tillman does not agree with this. She has been given a dose of cefepime and vancomycin. 06/12/2018. The patient is now extubated doing relatively well Verbal and able to communicate. The pain is relatively well controlled at this point in time with the Dilaudid. The patient's and daughter are present and relate to the patient's chronic recurrent skin conditions were he develops painful blisterlike lesions on his skin. The related they have not been biopsied and there is not a specific diagnosis except related to his underlying disease state and his methotrexate therapy. Objective - Vital Signs Vital signs: Vital Signs Temp 99.3 F 06/12/18 12:00 Pulse 109 H 06/12/18 12:10 Resp 24 06/12/18 12:00 BP 95/58 06/12/18 12:10 Pulse Ox 100 06/12/18 12:10 Intake & Output 06/11/18 06/12/18 06/12/18 18:59 06:59 18:59 Intake Total 1950 967.025 778.387 Output Total 2059 1285 Balance 1950 -1092.975 -506.613 Weight 81.647 kg 88.5 kg Intake: IV 1950 510 405 ACETAMINOPHEN IV (For NPO 100 ) 1,000 mg In Empty Bag 1 bag @ 400 mls/hr IVPB Q6HR PRN Rx#:[id number] Cefepime 2 gm In Sodium 50 Chloride 0.9% 50 ml @ 100 mls/hr IVPB ONCE STA Rx# :[id number] Magnesium Sulfate-D5w Pmx 200 1 gm In Dextrose/Water 1 100ml.bag @ 100 mls/hr IVPB Q1H [facility] Rx#: [id number] Sodium Chloride 0.9% 1, 160 80 000 ml @ 20 mls/hr IV . Q24H [facility] Rx#:[id number] Vancomycin 2,000 mg In 125 Sodium Chloride 0.9% 500 ml @ 167 mls/hr IVPB ONCE ONE Rx#:[id number] Intake, IV Titration 457.025 273.387 Amount Norepinephrine 4 mg In 318.250 148.125 Sodium Chloride 0.9% 250 ml @ Titrate IV .Q0M [facility] Rx#:[id number] Propofol 1,000 mg In 138.775 125.262 Empty Bag 1 bag @ 20 MCG/ KG/MIN 9.79 mls/hr IV . [id number] [facility] Rx#:[id number] Lipid 100 Cefepime 2 gm In Sodium 100 Chloride 0.9% 50 ml @ 100 mls/hr IVPB ONCE STA Rx# :[id number] Output: Urine 1959 1285 Estimated Blood Loss 100 Other: Voiding Method Indwelling Catheter Indwelling Catheter - Exam Gen: This is a 73-year-old male patient. He is on the ER stretcher and appears to be comfortable. He does complain of pain in the left knee. Otherwise he denies any complaints. HEENT: Head is atraumatic, normocephalic. Pupils equal, round. Sclerae is anicteric. Conjunctivae pink. Because members of the mouth are moist. Dentition is in good order. No thrush noted. NECK: Supple. No JVD. No lymphadenopathy. No thyromegaly. LUNGS: Scattered expiratory wheezes throughout all lung bass. No intercostal retractions. HEART: Regular rate and rhythm. No murmur. ABDOMEN: Soft. Bowel sounds are present. No masses. No tenderness. EXTREMITIES: No pedal edema. No calf tenderness. Dorsalis pedis +2 bilaterally. The surgical sites in the left shoulder and left knee and the dry dressings in place without copious amounts of drainage. Skin does have evidence of the dry lesions on the plamar surface of the fingers. NEUROLOGICAL: Patient is awake, alert and oriented x3. - Labs CBC & Chem 7: 06/12/18 04:36 06/12/18 04:36 Labs: Abnormal Lab Results - Last 24 Hours (Table) 06/11/18 06/11/18 06/11/18 Range/Units 19:58 20:40 21:26 WBC (3.8-10.6) k/uL MCV (80.0-100.0) fL Neutrophils # (1.3-7.7) k/uL ABG pH 7.28 L (7.35-7.45) ABG pCO2 51 H (35-45) mmHg ABG pO2 70 L (83-108) mmHg ABG Total CO2 25 H (19-24) mmol/L ABG O2 Saturation 93.4 L (94-97) % Sodium (137-145) mmol/L Carbon Dioxide (22-30) mmol/L Glucose (74-99) mg/dL POC Glucose (mg/dL) 116 H (75-99) mg/dL Calcium (8.4-10.2) mg/dL Magnesium (1.6-2.3) mg/dL C-Reactive Protein (<10.0) mg/L Total Protein (6.3-8.2) g/dL Albumin (3.5-5.0) g/dL Urine Blood Small H (Negative) Urine RBC 12 H (0-5) /hpf Urine Bacteria Rare H (None) /hpf Urine Mucus Rare H (None) /hpf 06/12/18 06/12/18 06/12/18 Range/Units 04:36 04:36 07:14 WBC 20.1 H (3.8-10.6) k/uL MCV 101.9 H (80.0-100.0) fL Neutrophils # 17.1 H (1.3-7.7) k/uL ABG pH (7.35-7.45) ABG pCO2 33 L (35-45) mmHg ABG pO2 (83-108) mmHg ABG Total CO2 (19-24) mmol/L ABG O2 Saturation 98.7 H (94-97) % Sodium 133 L (137-145) mmol/L Carbon Dioxide 20 L (22-30) mmol/L Glucose 136 H (74-99) mg/dL POC Glucose (mg/dL) (75-99) mg/dL Calcium 8.0 L (8.4-10.2) mg/dL Magnesium 1.4 L (1.6-2.3) mg/dL C-Reactive Protein 179.9 H (<10.0) mg/L Total Protein 5.0 L (6.3-8.2) g/dL Albumin 2.5 L (3.5-5.0) g/dL Urine Blood (Negative) Urine RBC (0-5) /hpf Urine Bacteria (None) /hpf Urine Mucus (None) /hpf Microbiology - Last 24 Hours (Table) 06/11/18 12:57 Blood Culture Gram Stain - Preliminary Blood 06/11/18 19:17 Gram Stain - Preliminary Knee - Left Wound Culture - Preliminary 06/11/18 13:39 Gram Stain - Preliminary Knee - Left Wound Culture - Preliminary Presumptive MRSA 06/11/18 19:17 Gram Stain - Preliminary Shoulder - Left Wound Culture - Preliminary 06/11/18 12:57 Blood Culture - Final Blood 06/11/18 19:17 Anaerobic Culture - Preliminary Knee - Left 06/11/18 19:17 Anaerobic Culture - Preliminary Shoulder - Left 06/11/18 13:39 Urine Culture - Preliminary Urine,Clean Catch 06/11/18 13:39 Anaerobic Culture - Preliminary Knee - Left Laboratory Results WBC 20.1 k/uL (3.8-10.6) H 06/12/18 04:36 RBC 4.57 m/uL (4.30-5.90) 06/12/18 04:36 Hgb 14.9 gm/dL (13.0-17.5) 06/12/18 04:36 Hct 46.6 % (39.0-53.0) 06/12/18 04:36 MCV 101.9 fL (80.0-100.0) H 06/12/18 04:36 MCH 32.6 pg (25.0-35.0) 06/12/18 04:36 MCHC 32.0 g/dL (31.0-37.0) 06/12/18 04:36 RDW 14.5 % (11.5-15.5) 06/12/18 04:36 Plt Count 307 k/uL (150-450) 06/12/18 04:36 Neutrophils % 85 % 06/12/18 04:36 Lymphocytes % 9 % 06/12/18 04:36 Monocytes % 4 % 06/12/18 04:36 Eosinophils % 0 % 06/12/18 04:36 Basophils % 0 % 06/12/18 04:36 Neutrophils # 17.1 k/uL (1.3-7.7) H 06/12/18 04:36 Lymphocytes # 1.8 k/uL (1.0-4.8) 06/12/18 04:36 Monocytes # 0.8 k/uL (0-1.0) 06/12/18 04:36 Eosinophils # 0.1 k/uL (0-0.7) 06/12/18 04:36 Basophils # 0.1 k/uL (0-0.2) 06/12/18 04:36 Macrocytosis Slight 06/12/18 04:36 ESR 5 mm/hr (0-15) 06/12/18 04:36 PT 10.8 sec (9.0-12.0) 06/11/18 12:57 INR 1.1 (<1.2) 06/11/18 12:57 APTT 21.7 sec (22.0-30.0) L 06/11/18 12:57 Sample Site RRAD 06/12/18 07:14 ABG pH 7.45 (7.35-7.45) 06/12/18 07:14 ABG pCO2 33 mmHg (35-45) L 06/12/18 07:14 ABG pO2 98 mmHg (83-108) 06/12/18 07:14 ABG HCO3 23 mmol/L (21-25) 06/12/18 07:14 ABG Total CO2 24 mmol/L (19-24) 06/12/18 07:14 ABG O2 Saturation 98.7 % (94-97) H 06/12/18 07:14 ABG Base Excess -0.8 mmol/L 06/12/18 07:14 Devan Test Yes 06/12/18 07:14 FiO2 40 % 06/12/18 07:14 Sodium 133 mmol/L (137-145) L 06/12/18 04:36 Potassium 4.4 mmol/L (3.5-5.1) 06/12/18 04:36 Chloride 106 mmol/L (98-107) 06/12/18 04:36 Carbon Dioxide 20 mmol/L (22-30) L 06/12/18 04:36 Anion Gap 7 mmol/L 06/12/18 04:36 BUN 16 mg/dL (9-20) 06/12/18 04:36 Creatinine 0.90 mg/dL (0.66-1.25) 06/12/18 04:36 Est GFR (CKD-EPI)AfAm >90 (>60 ml/min/1.73 sqM) 06/12/18 04:36 Est GFR (CKD-EPI)NonAf 86 (>60 ml/min/1.73 sqM) 06/12/18 04:36 Glucose 136 mg/dL (74-99) H 06/12/18 04:36 POC Glucose (mg/dL) 116 mg/dL (75-99) H 06/11/18 19:58 POC Glu [employer] Selin Justice 06/11/18 19:58 Plasma Lactic Acid Harsh 1.7 mmol/L (0.7-2.0) 06/11/18 12:57 Calcium 8.0 mg/dL (8.4-10.2) L 06/12/18 04:36 Phosphorus 3.9 mg/dL (2.5-4.5) 06/12/18 04:36 Magnesium 1.4 mg/dL (1.6-2.3) L 06/12/18 04:36 Total Bilirubin 0.6 mg/dL (0.2-1.3) 06/12/18 04:36 AST 22 U/L (17-59) 06/12/18 04:36 ALT 28 U/L (21-72) 06/12/18 04:36 Alkaline Phosphatase 62 U/L (38-126) 06/12/18 04:36 Total Creatine Kinase 37 U/L (55-170) L 06/11/18 12:57 CK-MB (CK-2) 0.7 ng/mL (0.0-2.4) 06/11/18 12:57 CK-MB (CK-2) Rel Index 1.9 06/11/18 12:57 Troponin I <0.012 ng/mL (0.000-0.034) 06/11/18 12:57 C-Reactive Protein 179.9 mg/L (<10.0) H 06/12/18 04:36 Total Protein 5.0 g/dL (6.3-8.2) L 06/12/18 04:36 Albumin 2.5 g/dL (3.5-5.0) L 06/12/18 04:36 Urine Color Light Yellow 06/11/18 21:26 Urine Appearance Clear (Clear) 06/11/18 21:26 Urine pH 5.0 (5.0-8.0) 06/11/18 21:26 Ur Specific [place] 1.009 (1.001-1.035) 06/11/18 21:26 Urine Protein Negative (Negative) 06/11/18 21:26 Urine Glucose (UA) Negative (Negative) 06/11/18 21:26 Urine Ketones Negative (Negative) 06/11/18 21:26 Urine Blood Small (Negative) H 06/11/18 21:26 Urine Nitrite Negative (Negative) 06/11/18 21:26 Urine Bilirubin Negative (Negative) 06/11/18 21:26 Urine Urobilinogen <2.0 mg/dL (<2.0) 06/11/18 21:26 Ur Leukocyte Esterase Negative (Negative) 06/11/18 21:26 Urine RBC 12 /hpf (0-5) H 06/11/18 21:26 Urine WBC 1 /hpf (0-5) 06/11/18 21:26 Urine Bacteria Rare /hpf (None) H 06/11/18 21:26 Urine Mucus Rare /hpf (None) H 06/11/18 21:26 Microbiology 06/11/18 12:57 Blood Blood Culture Gram Stain - Preliminary 06/11/18 19:17 Knee - Left Gram Stain - Preliminary 06/11/18 19:17 Knee - Left Wound Culture - Preliminary 06/11/18 13:39 Knee - Left Gram Stain - Preliminary 06/11/18 13:39 Knee - Left Wound Culture - Preliminary Presumptive MRSA 06/11/18 19:17 Shoulder - Left Gram Stain - Preliminary 06/11/18 19:17 Shoulder - Left Wound Culture - Preliminary 06/11/18 12:57 Blood Blood Culture - Final 06/11/18 19:17 Knee - Left Anaerobic Culture - Preliminary 06/11/18 19:17 Shoulder - Left Anaerobic Culture - Preliminary 06/11/18 13:39 Urine,Clean Catch Urine Culture - Preliminary 06/11/18 13:39 Knee - Left Anaerobic Culture - Preliminary Assessment and Plan (1) Bacteremia Narrative/Plan: 73-year-old gentleman has had a significant intervention to the left knee and left shoulder with significant abscess that developed in these areas. Postoperatively the patient remains in the intensive care unit he remains intubated is having some difficulties. X-rays evaluated appears to have a right pneumothorax being partially related to the bladder cleaner. Given the patient's relative immunocompromised there is concern for possibility of gram- negative infection and cephapirin is utilized as well as vancomycin also due to his significant immunosuppressed status. Methotrexate must be held while he is ill and recovering. Cultures are process which will further direct our therapy. Unclear if he'll require further surgical intervention before he is ready for his protracted course of antibiotic therapy for these complex infections. 06/12/2018 patient is doing somewhat better today and that he is extubated, He can without difficulties and pain is well controlled. At this time cultures are pending but likely MRSA. Antibiotic therapy can be further tapered as final culture results become available. Patient and family understand that once he has clearance of his bacteremia he will have IV access placed will be treated for at least 6 weeks of intravenous antibiotic therapy for this complex infection. He also understands that the left knee will likely need further surgical intervention. Current Visit: Yes Status: Acute Code(s): R78.81 - BACTEREMIA SNOMED Code( s): 3927221
--- NOTE | 2018-06-12 14:16 | P.CNPUL ---
History of Present Illness Consult date: 06/12/18 Requesting physician: Abad Vaca Reason for consult: other (Acute sepsis and septic joints left knee) Chief complaint: Left knee pain and swelling. History of present illness: This is a 73-year-old white male with history of rheumatoid arthritis for 25 years, normally on methotrexate, and sometimes on prednisone. History of left total knee arthroplasty about 15 years ago, patient presented yesterday to the ER complaining of sudden left knee swelling and pain. Patient was also noted to be febrile with a temp of 102.2, he was tachycardic, and he had significant leukocytosis with WBC count of 20.1. Aspiration of the left knee showed purulent drainage, patient was seen by orthopedics, his lactic acid was also elevated at 1.7. Patient was started on antibiotics in the form of cefepime and vancomycin for presumptive septic joint and sepsis, he was taken to the operating room, and underwent incision and drainage of the left knee with removal of the left knee components and insertion of antibiotic spacers. Patient was also evaluated for his left shoulder pain, incision of the left shoulder with culture and sensitivity was done. He was felt to have synovitis of the left shoulder without active infection. He had chronic left rotator cuff tear. Postsurgically, the patient was transferred to the intensive care unit on mechanical ventilation. Chest x-ray which I reviewed post surgery clearly showed evidence of congestive heart failure, patient was apparently given lots of fluids upon his initial presentation, I recommended diuretics, and I recommended norepinephrine to control his low blood pressure. When I saw him this morning, patient was still on mechanical ventilation, his hemodynamics are significantly improved, he is on a very small tiny dose of norepinephrine less than 8 g, being tapered down, his urine output was excellent, chest x-ray showed significant improvement, patient was given a short the pressure support and CPAP trial, and proceeded to extubating the patient. Extubation was well- tolerated. Review of Systems ROS unobtainable: due to endotracheal tube Past Medical History Past Medical History: Coronary Artery Disease (CAD), COPD, GERD/Reflux, Pneumonia, Rheumatoid Arthritis (RA) Additional Past Medical History / Comment(s): Pancreatitis couple times a year, 2012 past medical record documents viral pericarditis but pt denies, gastritis, has home O2 at only but has not been using. He is scheduled for outpatient sleep study on June 26. History of Any Multi-Drug Resistant Organisms: None Reported Past Surgical History: Heart Catheterization With Stent, Joint Replacement, Orthopedic Surgery Additional Past Surgical History / Comment(s): Total L knee arthroplasty, R total shoulder, L ankle ORIF d/t fracture, EGD, left rotator cuff repair Past Anesthesia/Blood Transfusion Reactions: No Reported Reaction Additional Past Anesthesia/Blood Transfusion Reaction / Comment(s): Pt states he has never recieved blood. Date of Last Stent Placement:: 12/10/16 Past Psychological History: No Psychological Hx Reported Smoking Status: Former smoker Past Alcohol Use History: None Reported Additional Past Alcohol Use History / Comment(s): Patient was a smoker one to one and half packs per day for 40+ years and quit 2 years ago when he had cardiac stents done. He uses a synthetic marijuana at nighttime only for his arthritis to help him sleep. He denies any other street drug use, alcohol use. 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 He lives at home with his . Past Drug Use History: None Reported - Past Family History Sister(s) Family Medical History: Cancer Additional Family Medical History / Comment(s): pt's father had ra, mother had 16 children was healthy most of her life age 93 from alzheimers. Mother Family Medical History: Dementia Father Family Medical History: Rheumatoid Arthritis (RA) Medications and Allergies Home Medications Medication Instructions Recorded Confirmed Type oxyCODONE HCL/ACETAMINOPHEN 2 tab PO Q6H PRN 03/13/14 06/11/18 History [Percocet 10-325 mg] Folic Acid 1 mg PO DAILY 01/12/18 06/11/18 History Methotrexate Inject 25mg/Ml 1 dose IM FR 01/12/18 06/11/18 History Allergies Allergy/AdvReac Type Severity Reaction Status Date / Time No Known Allergies Allergy Verified 06/11/18 16:45 Physical Exam Vitals: Vital Signs Temp Pulse Pulse Resp BP BP Pulse Ox 06/12/18 12:10 109 H 95/58 100 06/12/18 12:00 99.3 F 111 H 24 94/57 100 06/12/18 11:50 106 H 100/64 100 06/12/18 11:40 106 H 90/58 100 06/12/18 11:30 103 H 104/62 100 06/12/18 11:20 105 H 96/63 100 06/12/18 11:10 103 H 106/57 100 06/12/18 11:00 105 H 99/65 100 06/12/18 10:50 104 H 106/59 100 06/12/18 10:40 104 H 108/67 98 06/12/18 10:30 103 H 110/61 99 06/12/18 10:20 101 H 106/63 99 06/12/18 10:10 100 113/67 97 06/12/18 10:00 99 24 119/66 100 06/12/18 09:50 97 111/69 99 06/12/18 09:40 93 113/73 100 06/12/18 09:30 90 126/68 100 06/12/18 09:20 91 100/64 100 06/12/18 09:10 93 100/65 99 06/12/18 09:00 92 16 92/59 100 06/12/18 08:50 90 16 86/60 100 06/12/18 08:40 90 16 93/61 100 06/12/18 08:30 88 16 81/57 100 06/12/18 08:20 94 87/57 100 06/12/18 08:10 92 93/58 100 06/12/18 08:00 98.7 F 93 18 89/59 100 06/12/18 07:50 94 18 96/57 100 06/12/18 07:40 97 18 86/61 100 06/12/18 07:30 96 18 90/55 100 06/12/18 07:20 100 18 101/59 100 06/12/18 07:10 97 18 98/61 100 06/12/18 07:00 96 93/66 100 06/12/18 06:50 96 114/66 100 06/12/18 06:40 96 96/69 99 06/12/18 06:30 98 94/67 100 06/12/18 06:20 97 100/59 99 06/12/18 06:10 99.9 F H 100 90/67 99 06/12/18 06:00 100 106/66 100 06/12/18 05:50 102 H 97/68 100 06/12/18 05:40 103 H 87/67 100 06/12/18 05:30 102 H 86/66 100 06/12/18 05:28 25 H 06/12/18 05:20 104 H 87/66 100 06/12/18 05:10 104 H 80/62 100 06/12/18 05:00 101.2 F H 106 H 83/66 100 06/12/18 04:50 106 H 96/68 100 06/12/18 04:40 108 H 86/62 100 06/12/18 04:30 107 H 95/59 100 06/12/18 04:20 110 H 88/61 100 06/12/18 04:10 109 H 94/60 100 06/12/18 04:00 102.3 F H 113 H 89/64 100 06/12/18 03:50 110 H 94/63 100 06/12/18 03:40 109 H 85/62 100 06/12/18 03:30 109 H 91/69 99 06/12/18 03:20 112 H 85/63 100 06/12/18 03:11 100.8 F H 06/12/18 03:10 114 H 73/56 95 06/12/18 03:00 115 H 83/58 95 06/12/18 02:50 117 H 83/66 96 06/12/18 02:40 119 H 83/66 100 06/12/18 02:30 120 H 86/72 100 06/12/18 02:20 115 H 90/64 100 06/12/18 02:10 121 H 90/64 100 06/12/18 02:00 118 H 91/67 100 06/12/18 01:50 120 H 92/65 100 06/12/18 01:40 102.2 F H 120 H 92/65 100 06/12/18 01:30 118 H 83/66 100 06/12/18 01:20 115 H 93/69 100 06/12/18 01:10 115 H 93/69 100 06/12/18 01:00 112 H 92/66 100 06/12/18 00:50 116 H 81/61 100 06/12/18 00:40 112 H 81/61 99 06/12/18 00:30 111 H 91/68 100 06/12/18 00:20 111 H 91/64 100 06/12/18 00:10 107 H 91/64 100 06/12/18 00:00 106 H 92/66 100 06/11/18 23:50 103 H 90/71 100 06/11/18 23:40 102 H 90/71 100 06/11/18 23:30 98 89/58 100 06/11/18 23:20 98 90/67 100 06/11/18 23:10 96 90/67 100 06/11/18 23:06 100 101/58 99 06/11/18 23:00 97 25 H 101/58 100 06/11/18 22:50 98 93/58 100 06/11/18 22:40 96 83/58 96 06/11/18 22:30 99 98 06/11/18 22:20 98 77/56 96 06/11/18 22:10 104 H 79/49 06/11/18 22:00 98.7 F 104 H 32 H 77/50 94 L 06/11/18 21:50 109 H 75/49 94 L 06/11/18 21:40 114 H 81/53 94 L 06/11/18 21:30 117 H 116/62 100 06/11/18 21:20 120 H 116/62 98 06/11/18 21:10 121 H 134/72 97 06/11/18 21:00 118 H 28 H 140/73 06/11/18 20:50 124 H 199/98 06/11/18 20:40 125 H 212/105 06/11/18 20:30 121 H 208/110 06/11/18 20:20 112 H 182/94 95 06/11/18 20:10 103 H 156/86 100 06/11/18 20:00 97.5 F L 106 H 32 H 142/76 97 06/11/18 19:57 103 H 141/77 06/11/18 16:48 100.4 F H 82 20 112/73 06/11/18 16:24 98 18 106/56 96 06/11/18 16:00 99.5 F 06/11/18 15:55 101.2 F H 98 18 111/63 96 06/11/18 14:32 103 H 18 105/56 96 Intake and Output 06/11/18 06/12/18 06/12/18 22:59 06:59 14:59 Intake Total 2212.509 705.516 778.387 Output Total 463 0838 5446 Balance 1603.509 -746.484 -506.613 Intake: IV 2191 270 405 ACETAMINOPHEN IV (For NPO 100 ) 1,000 mg In Empty Bag 1 bag @ 400 mls/hr IVPB Q6HR PRN Rx#:[id number] Cefepime 2 gm In Sodium 50 Chloride 0.9% 50 ml @ 100 mls/hr IVPB ONCE STA Rx# :[id number] Magnesium Sulfate-D5w Pmx 200 1 gm In Dextrose/Water 1 100ml.bag @ 100 mls/hr IVPB Q1H SURYA Rx#: [id number] Sodium Chloride 0.9% 1, 40 120 80 000 ml @ 20 mls/hr IV . Q24H SURYA Rx#:[id number] Vancomycin 2,000 mg In 125 Sodium Chloride 0.9% 500 ml @ 167 mls/hr IVPB ONCE ONE Rx#:[id number] Intake, IV Titration 21.509 435.516 273.387 Amount Norepinephrine 4 mg In 6.0 312.250 148.125 Sodium Chloride 0.9% 250 ml @ Titrate IV .Q0M SURYA Rx#:[id number] Propofol 1,000 mg In 15.509 123.266 125.262 Empty Bag 1 bag @ 20 MCG/ KG/MIN 9.79 mls/hr IV . [id number] [facility] Rx#:[id number] Lipid 100 Cefepime 2 gm In Sodium 100 Chloride 0.9% 50 ml @ 100 mls/hr IVPB ONCE STA Rx# :[id number] Output: Urine 505 1455 1285 Estimated Blood Loss 100 Other: Voiding Method Indwelling Catheter Indwelling Catheter Indwelling Catheter Weight 88.5 kg Physical Exam: Revealed a 73-year-old white male, on mechanical ventilation, in no distress. Head: Atraumatic, normocephalic. HEENT:[Neck is supple.] [No neck masses.] [No thyromegaly.] [No JVD.] Endotracheal tube is intact. Chest: [Normal crackles at the bases, no rhonchi and no wheezes noted..] Cardiac Exam: [Normal S1 and S2, no S3 gallop, no murmur.] Abdomen: [Soft, nontender, no megaly, no rebound, no guarding, normal bowel sounds.] Extremities: [No clubbing, no edema, no cyanosis.] His left knee is wrapped with a brace., Immobilized.. Left shoulder dressing is clean dry and intact. Neurological Exam: [No focal neurologic deficit. Patient is on mechanical ventilation, appropriate, follows all instructions. Pharynx: No lymphadenopathy.] Results - Laboratory Findings CBC and BMP: 06/12/18 04:36 06/12/18 04:36 ABG ABG pH 7.45 (7.35-7.45) 06/12/18 07:14 ABG pCO2 33 mmHg (35-45) L 06/12/18 07:14 ABG pO2 98 mmHg (83-108) 06/12/18 07:14 ABG O2 Saturation 98.7 % (94-97) H 06/12/18 07:14 PT/INR, D-dimer PT 10.8 sec (9.0-12.0) 06/11/18 12:57 INR 1.1 (<1.2) 06/11/18 12:57 Abnormal lab findings: Abnormal Labs 06/11/18 06/11/18 06/11/18 12:57 12:57 12:57 WBC 20.1 H MCV 101.2 H Neutrophils # 17.2 H APTT ABG pH ABG pCO2 ABG pO2 ABG Total CO2 ABG O2 Saturation Sodium 134 L Carbon Dioxide Glucose 116 H POC Glucose (mg/dL) Calcium Magnesium Total Creatine Kinase 37 L C-Reactive Protein Total Protein 5.7 L Albumin 3.0 L Urine Protein Urine Blood Urine RBC Urine Bacteria Urine Mucus 06/11/18 06/11/18 06/11/18 12:57 13:39 19:58 WBC MCV Neutrophils # APTT 21.7 L ABG pH ABG pCO2 ABG pO2 ABG Total CO2 ABG O2 Saturation Sodium Carbon Dioxide Glucose POC Glucose (mg/dL) 116 H Calcium Magnesium Total Creatine Kinase C-Reactive Protein Total Protein Albumin Urine Protein Trace H Urine Blood Urine RBC Urine Bacteria Urine Mucus 06/11/18 06/11/18 06/12/18 20:40 21:26 04:36 WBC MCV Neutrophils # APTT ABG pH 7.28 L ABG pCO2 51 H ABG pO2 70 L ABG Total CO2 25 H ABG O2 Saturation 93.4 L Sodium 133 L Carbon Dioxide 20 L Glucose 136 H POC Glucose (mg/dL) Calcium 8.0 L Magnesium 1.4 L Total Creatine Kinase C-Reactive Protein 179.9 H Total Protein 5.0 L Albumin 2.5 L Urine Protein Urine Blood Small H Urine RBC 12 H Urine Bacteria Rare H Urine Mucus Rare H 06/12/18 06/12/18 04:36 07:14 WBC 20.1 H MCV 101.9 H Neutrophils # 17.1 H APTT ABG pH ABG pCO2 33 L ABG pO2 ABG Total CO2 ABG O2 Saturation 98.7 H Sodium Carbon Dioxide Glucose POC Glucose (mg/dL) Calcium Magnesium Total Creatine Kinase C-Reactive Protein Total Protein Albumin Urine Protein Urine Blood Urine RBC Urine Bacteria Urine Mucus - Diagnostic Findings Chest x-ray: image reviewed (Chest x-ray was reviewed and there is evidence of improvement in his interstitial edema and right-sided pleural effusion.) Assessment and Plan Assessment: Impression: 1 acute left knee septic arthritis, and left shoulder synovitis. 2 acute sepsis and strongly suspect septic shock since the patient did not respond to fluid boluses, and required norepinephrine overnight for his low blood pressure. 3 postoperative respiratory failure, unexpected, most likely secondary to sepsis , septic shock, and interstitial edema with pleural effusion and fluid overload as noted on the chest x-ray upon arrival to the ICU. Resolved mostly with diuresis. 4 multiple comorbidities including rheumatoid arthritis, coronary artery disease , possible COPD, Recommendation: Continue present course of antibiotics, continue diuretics, bronchodilators, GI and DVT prophylaxis, patient was extubated uneventfully, his norepinephrine will be tapered and discontinued, we'll continue to follow closely for the next 24 hours in the intensive care unit. Critical care time is 50 minutes. Time with Patient: Greater than 30
[2018-06-12 15:58] LABS: Hemoglobin A1C 5.5 % (4.0-6.0)
[2018-06-12] MEDS: FOLIC ACID 1 MG TAB PO SCH (17:46)
[2018-06-12] MEDS: FAMOTIDINE 20 MG TAB PO SCH (17:46)
[2018-06-12] MEDS: ASPIRIN 81 MG PO SCH (17:46)
[2018-06-12] MEDS: ATORVASTATIN 40 MG TAB PO SCH (21:18)
[2018-06-12] MEDS: SENNOSIDES-DOCUSATE SODIUM 1 EACH TAB PO SCH (21:18)
[2018-06-12] MEDS: SODIUM CHLORIDE 0.9% 1,000 ML IV SCH (22:00)
[2018-06-12] MEDS: LACTATED RINGERS 1,000 ML IV SCH (22:57)
[2018-06-13] MEDS: HYDROmorphone 1 MG/ML 1 ML SYRINGE IVP PRN ×7 (00:58→23:41)
[2018-06-13 04:46] LABS: Basophils % (A) 0 %; Eosinophils # (A) 0.1 k/uL (0-0.7); Eosinophils % (A) 1 %; HCT 37.9 % (39.0-53.0); HGB 12.3 gm/dL (13.0-17.5); Lymphocytes # (A) 0.9 k/uL (1.0-4.8); Lymphocytes % (A) 7 %; MCH 32.3 pg (25.0-35.0); MCHC 32.4 g/dL (31.0-37.0); MCV 99.7 fL (80.0-100.0); Macrocytosis Slight; Mean Platelet Volume 6.6; Monocytes # (A) 0.6 k/uL (0-1.0); Monocytes % (A) 4 %; Neutrophils # (A) 12.7 k/uL (1.3-7.7); Neutrophils % (A) 87 %; Platelet Count 225 k/uL (150-450); RBC 3.81 m/uL (4.30-5.90); RDW 14.3 % (11.5-15.5); WBC 14.6 k/uL (3.8-10.6)
[2018-06-13 04:55] LABS: ALT 30 U/L (21-72); AST 22 U/L (17-59); Albumin 2.3 g/dL (3.5-5.0); Alkaline Phosphatase 60 U/L (38-126); Anion Gap 4 mmol/L; Blood Urea Nitrogen 20 mg/dL (9-20); Calcium 7.6 mg/dL (8.4-10.2); Carbon Dioxide 24 mmol/L (22-30); Chloride 107 mmol/L (98-107); Glucose 108 mg/dL (74-99); Magnesium 2.1 mg/dL (1.6-2.3); Phosphorus 3.3 mg/dL (2.5-4.5); Sodium 135 mmol/L (137-145); Total Bilirubin 0.6 mg/dL (0.2-1.3); Total Protein 4.6 g/dL (6.3-8.2)
[2018-06-13] MEDS ORDERED: VANCOMYCIN TROUGH DUE 1 EACH MISC MISCELLANE ONE (05:00)
[2018-06-13] MEDS: KETOROLAC 30 MG/ML 1 ML VIAL IVP SCH ×4 (06:03→23:40)
[2018-06-13] MEDS: VANCOMYCIN 1,500 MG in SODIUM CHLORIDE 0.9% 250 ML IVPB SCH (06:04)
[2018-06-13] MEDS: IPRATROPIUM-ALBUTEROL 3 ML NEB INHALATION SCH ×4 (08:07→19:42)
[2018-06-13] MEDS: CEFEPIME 2 GM in SODIUM CHLORIDE 0.9% 50 ML IVPB SCH ×3 (08:11→23:45)
[2018-06-13] MEDS: PANTOPRAZOLE 40 MG/10 ML VIAL IV SCH (08:11)
[2018-06-13] MEDS: FAMOTIDINE 20 MG TAB PO SCH (08:11)
[2018-06-13] MEDS: ENOXAPARIN 40 MG/0.4 ML SYRINGE SQ SCH (08:11)
[2018-06-13] MEDS: ASPIRIN 81 MG PO SCH (08:11)
[2018-06-13] MEDS: oxyCODONE-APAP 10-325MG 1 EACH TAB PO PRN ×3 (08:12→20:46)
[2018-06-13] MEDS: HYDROCORTISONE SUCCINATE 100 MG/2 ML VIAL IV SCH ×3 (09:28→23:40)
--- NOTE | 2018-06-13 10:23 | XR ---
EXAMINATION TYPE: XR chest 1V portable DATE OF EXAM: 06/13/2018 Comparison: 06/12/2018 Clinical History: 73 year-old male tube placement Findings: Heart appears normal size. Interval extubation. Reversed right shoulder plasty partially seen. Diffus e interstitial prominence with patchy opacities increasing throughout the right lung. Continued small pleural effusions, now small to moderate on the right with adjacent bibasilar opacities. Previous se en nodular density left mid lung no longer appreciated. Impression: 1. Increased, now small to moderate right and similar small left pleural effusions with adjacent atel ectasis and/or consolidation. 2. Worsening aeration within the right lung. Correlate for CHF as a possible etiology.
--- NOTE | 2018-06-13 10:59 | P.PN ---
Subjective Progress Note Date: 06/13/18 Principal diagnosis: Acute left knee septic arthritis and septic shock. This is a 73-year-old white male with history of rheumatoid arthritis for 25 years, normally on methotrexate, and sometimes on prednisone. History of left total knee arthroplasty about 15 years ago, patient presented yesterday to the ER complaining of sudden left knee swelling and pain. Patient was also noted to be febrile with a temp of 102.2, he was tachycardic, and he had significant leukocytosis with WBC count of 20.1. Aspiration of the left knee showed purulent drainage, patient was seen by orthopedics, his lactic acid was also elevated at 1.7. Patient was started on antibiotics in the form of cefepime and vancomycin for presumptive septic joint and sepsis, he was taken to the operating room, and underwent incision and drainage of the left knee with removal of the left knee components and insertion of antibiotic spacers. Patient was also evaluated for his left shoulder pain, incision of the left shoulder with culture and sensitivity was done. He was felt to have synovitis of the left shoulder without active infection. He had chronic left rotator cuff tear. Postsurgically, the patient was transferred to the intensive care unit on mechanical ventilation. Chest x-ray which I reviewed post surgery clearly showed evidence of congestive heart failure, patient was apparently given lots of fluids upon his initial presentation, I recommended diuretics, and I recommended norepinephrine to control his low blood pressure. When I saw him this morning, patient was still on mechanical ventilation, his hemodynamics are significantly improved, he is on a very small tiny dose of norepinephrine less than 8 g, being tapered down, his urine output was excellent, chest x-ray showed significant improvement, patient was given a short the pressure support and CPAP trial, and proceeded to extubating the patient. Extubation was well- tolerated. Reevaluated today on 06/13/2018, patient was extubated yesterday, tolerated the extubation quite well. Patient is in quite a bit of pain, mostly pain in the left shoulder, across the chest when he coughs, and complaining of pain in the left knee joint. Blood pressure is marginal, his chest x-ray showed evidence of congestive heart failure and worsening right-sided pleural effusion today. Hence I have recommended more diuretics to be given. Patient told me today that he is usually on prednisone at 30 mg daily maintenance for [employer] of time. Hence I started the patient today on Solu-Cortef 100 mg IV push every 8 hours , patient will be receiving stress doses of hydrocortisone for the next 48 hours , and then we will likely switch him back to his usual dose of prednisone. Reviewed the chest x-ray, and felt the patient needs more diuresis. CBC showed improved leukocytosis. Basic metabolic profile is normal, renal profile is normal. Objective - Vital Signs Vital signs: Vital Signs Temp 98.9 F 06/13/18 03:00 Pulse 90 06/13/18 10:00 Resp 23 06/13/18 10:00 BP 88/49 06/13/18 10:00 Pulse Ox 92 L 06/13/18 10:00 Intake & Output 06/12/18 06/13/18 06/13/18 18:59 06:59 18:59 Intake Total 928.512 630.875 430 Output Total 1648 450 142 Balance -719.488 180.875 288 Weight 88.8 kg Intake: IV 525 340 80 Magnesium Sulfate-D5w Pmx 200 1 gm In Dextrose/Water 1 100ml.bag @ 100 mls/hr IVPB Q1H SRUYA Rx#: [id number] Sodium Chloride 0.9% 1, 200 240 80 000 ml @ 20 mls/hr IV . Q24H SURYA Rx#:[id number] Vancomycin 2,000 mg In 125 100 Sodium Chloride 0.9% 500 ml @ 167 mls/hr IVPB ONCE ONE Rx#:[id number] Intake, IV Titration 303.512 290.875 50 Amount Cefepime 2 gm In Sodium 100 50 Chloride 0.9% 50 ml @ 100 mls/hr IVPB Q8HR SURYA Rx# :[id number] Norepinephrine 4 mg In 178.250 190.875 Sodium Chloride 0.9% 250 ml @ Titrate IV .Q0M SURYA Rx#:[id number] Propofol 1,000 mg In 125.262 Empty Bag 1 bag @ 20 MCG/ KG/MIN 9.79 mls/hr IV . [id number] SURYA Rx#:[id number] Oral 300 Lipid 100 Cefepime 2 gm In Sodium 100 Chloride 0.9% 50 ml @ 100 mls/hr IVPB ONCE STA Rx# :[id number] Output: Urine 1648 450 142 Other: Voiding Method Indwelling Catheter Indwelling Catheter Indwelling Catheter - Exam Physical Exam: Revealed a 73-year-old white male, on nasal cannula, in no distress. Head: Atraumatic, normocephalic. HEENT:[Neck is supple.] [No neck masses.] [No thyromegaly.] [No JVD.] Chest: [Normal crackles at the bases, no rhonchi and no wheezes noted..] Cardiac Exam: [Normal S1 and S2, no S3 gallop, no murmur.] Abdomen: [Soft, nontender, no megaly, no rebound, no guarding, normal bowel sounds.] Extremities: [No clubbing, no edema, no cyanosis.] His left knee is wrapped with a brace., Immobilized.. Left shoulder dressing is clean dry and intact. Neurological Exam: [No focal neurologic deficit. Alert oriented 3. Pharynx: No lymphadenopathy Psychiatric: Normal mood affect and mental status examination..] - Labs CBC & Chem 7: 06/13/18 04:25 06/13/18 04:25 Labs: Abnormal Lab Results - Last 24 Hours (Table) 06/13/18 06/13/18 Range/Units 04:25 04:25 WBC 14.6 H (3.8-10.6) k/uL RBC 3.81 L (4.30-5.90) m/uL Hgb 12.3 L (13.0-17.5) gm/dL Hct 37.9 L (39.0-53.0) % Neutrophils # 12.7 H (1.3-7.7) k/uL Lymphocytes # 0.9 L (1.0-4.8) k/uL Sodium 135 L (137-145) mmol/L Glucose 108 H (74-99) mg/dL Calcium 7.6 L (8.4-10.2) mg/dL Total Protein 4.6 L (6.3-8.2) g/dL Albumin 2.3 L (3.5-5.0) g/dL Microbiology - Last 24 Hours (Table) 06/12/18 07:25 Blood Culture - Preliminary Blood No Growth after 24 hours 06/11/18 12:57 Blood Culture Gram Stain - Preliminary Blood Blood Culture - Preliminary Presumptive MRSA 06/12/18 07:05 Blood Culture - Final Blood 06/12/18 07:05 Blood Culture Gram Stain - Preliminary Blood Blood Culture - Preliminary 06/11/18 19:17 Gram Stain - Preliminary Knee - Left Wound Culture - Preliminary Presumptive MRSA 06/11/18 19:17 Gram Stain - Preliminary Shoulder - Left Wound Culture - Preliminary 06/11/18 13:39 Urine Culture - Final Urine,Clean Catch 06/11/18 13:39 Gram Stain - Preliminary Knee - Left Wound Culture - Preliminary Presumptive MRSA Assessment and Plan Assessment: Impression: 1 acute left knee septic arthritis, and left shoulder synovitis. 2 acute sepsis and strongly suspect septic shock since the patient did not respond to fluid boluses, and required norepinephrine overnight for his low blood pressure. 3 postoperative respiratory failure, unexpected, most likely secondary to sepsis , septic shock, and interstitial edema with pleural effusion and fluid overload as noted on the chest x-ray upon arrival to the ICU. 4 suspected diastolic congestive heart failure, hence the patient will need more diuresis today. This could very well be related to the significant fluids the patient received upon presentation when he was initially seen with sepsis and septic shock. 4 multiple comorbidities including rheumatoid arthritis, coronary artery disease , possible COPD, Recommendation: Continue present course of antibiotics, continue diuretics, bronchodilators, GI and DVT prophylaxis, we will add Solu-Cortef 100 mg IV push every 8 hours. We'll continue to monitor in the ICU today, possibly transfer out of the ICU tomorrow. Time with Patient: Less than 30
[2018-06-13] MEDS: FUROSEMIDE 10 MG/ML 4 ML VIAL IV SCH ×2 (11:43→20:44)
[2018-06-13] MEDS: FOLIC ACID 1 MG TAB PO SCH (11:45)
[2018-06-13] MEDS: NOREPINEPHRINE 4 MG in SODIUM CHLORIDE 0.9% 250 ML IV SCH (11:47)
--- NOTE | 2018-06-13 13:50 | P.PN ---
Subjective Progress Note Date: 06/13/18 This is a 73-year-old patient of Dr. Montemayor. Patient presented to the emergency room with complaint of left knee pain. Patient also states he's been having fevers and chills at home. Patient has a known past medical history of rheumatoid arthritis in which she follows with production generalist and was on methotrexate. Additional medical history includes coronary artery disease, COPD , GERD, pneumonia and pancreatitis multiple episodes. Chest x-ray completed emergency room showing right-sided pleural effusion. Underlying infiltrate is not excluded. EKG completed showing sinus tachycardia. Dr. Fisher per orthopedic services consulted. Patient had joint aspiration that was done in ER with purulent drainage from the left knee. Patient is also complaining of left shoulder pain in his status post left rotator cuff repair. Patient is scheduled for a [address] Fisher. White blood count 20.1. Blood culture and wound cultures have been received. Lactic acid 1.7. Patient febrile with a temp of 102.2. Infectious disease has been consulted. Vancomycin IV antibiotic ordered. UA negative. Patient denies chest pain or shortness of breath. Does complain of pain and left knee. Patient denies any nausea vomiting or diarrhea. Patient denies any urinary burning or frequency On 06/12/2018 patient is currently on mechanical ventilation in the intensive care unit. Patient underwent an incision and drainage of the left shoulder and an incision and drainage of the left knee with hardware removal and antibiotic spacer placement yesterday with Dr. Fisher. Patient came back from surgery on the ventilator. At this time patient is requiring Levophed for pressure support. Dr. Paul is following for infectious disease. Dr. Samuel is on for critical care management and pulmonary support. Possible attempt for weaning and Patient today. On 06/13/2018 patient has been successfully extubated yesterday. Patient is currently on a small amount of legal bed for pressure support. Patient currently on 5 L nasal cannula. At this time patient states that pain is adequately controlled. Patient denies chest pain or shortness breath. Patient denies nausea vomiting or diarrhea. Patient denies any urinary burning or frequency. Objective - Vital Signs Vital signs: Vital Signs Temp 98.9 F 06/13/18 03:00 Pulse 82 06/13/18 11:47 Resp 23 06/13/18 10:00 BP 88/49 06/13/18 10:00 Pulse Ox 92 L 06/13/18 10:00 Intake & Output 06/12/18 06/13/18 06/13/18 18:59 06:59 18:59 Intake Total 928.512 630.875 470 Output Total 1648 450 192 Balance -719.488 180.875 278 Weight 88.8 kg Intake: IV 525 340 120 Magnesium Sulfate-D5w Pmx 200 1 gm In Dextrose/Water 1 100ml.bag @ 100 mls/hr IVPB Q1H [facility] Rx#: [id number] Sodium Chloride 0.9% 1, 200 240 120 000 ml @ 20 mls/hr IV . Q24H [facility] Rx#:[id number] Vancomycin 2,000 mg In 125 100 Sodium Chloride 0.9% 500 ml @ 167 mls/hr IVPB ONCE ONE Rx#:[id number] Intake, IV Titration 303.512 290.875 50 Amount Cefepime 2 gm In Sodium 100 50 Chloride 0.9% 50 ml @ 100 mls/hr IVPB Q8HR [facility] Rx# :[id number] Norepinephrine 4 mg In 178.250 190.875 0 Sodium Chloride 0.9% 250 ml @ Titrate IV .Q0M [facility] Rx#:[id number] Propofol 1,000 mg In 125.262 Empty Bag 1 bag @ 20 MCG/ KG/MIN 9.79 mls/hr IV . [id number] [facility] Rx#:[id number] Oral 300 Lipid 100 Cefepime 2 gm In Sodium 100 Chloride 0.9% 50 ml @ 100 mls/hr IVPB ONCE STA Rx# :[id number] Output: Urine 1648 450 192 Other: Voiding Method Indwelling Catheter Indwelling Catheter Indwelling Catheter - Exam Head normocephalic Neck supple Lungs bilateral wheezing patient currently on 5 L Heart regular rate and rhythm S1-S2, no rub or gallop Abdomen is soft nontender nondistended positive bowel sounds no hepatosplenomegaly Extremities no edema. Left shoulder dressing clean dry and intact. Left leg brace in place dressing clean dry and intact Neuro patient currently on sedation - Labs CBC & Chem 7: 06/13/18 04:25 06/13/18 04:25 Labs: Abnormal Lab Results - Last 24 Hours (Table) 06/13/18 06/13/18 Range/Units 04:25 04:25 WBC 14.6 H (3.8-10.6) k/uL RBC 3.81 L (4.30-5.90) m/uL Hgb 12.3 L (13.0-17.5) gm/dL Hct 37.9 L (39.0-53.0) % Neutrophils # 12.7 H (1.3-7.7) k/uL Lymphocytes # 0.9 L (1.0-4.8) k/uL Sodium 135 L (137-145) mmol/L Glucose 108 H (74-99) mg/dL Calcium 7.6 L (8.4-10.2) mg/dL Total Protein 4.6 L (6.3-8.2) g/dL Albumin 2.3 L (3.5-5.0) g/dL Microbiology - Last 24 Hours (Table) 06/12/18 07:25 Blood Culture - Preliminary Blood No Growth after 24 hours 06/11/18 12:57 Blood Culture Gram Stain - Preliminary Blood Blood Culture - Preliminary Presumptive MRSA 06/12/18 07:05 Blood Culture - Final Blood 06/12/18 07:05 Blood Culture Gram Stain - Preliminary Blood Blood Culture - Preliminary 06/11/18 19:17 Gram Stain - Preliminary Knee - Left Wound Culture - Preliminary Presumptive MRSA 06/11/18 19:17 Gram Stain - Preliminary Shoulder - Left Wound Culture - Preliminary 06/11/18 13:39 Urine Culture - Final Urine,Clean Catch 06/11/18 13:39 Gram Stain - Preliminary Knee - Left Wound Culture - Preliminary Presumptive MRSA Assessment and Plan Assessment: 1. Sepsis secondary to left knee septic arthroplasty. White blood cell 20.2. Wound and blood cultures have been ordered. Joint aspiration performed emergency room. Infectious disease has been consulted. Continue vancomycin per infectious disease. Patient febrile with temp of 102.2. Plan for I&D of left knee today with Dr. Fisher. On 06/11 patient underwent incision changes of the left shoulder incision and drainage of the left knee with hardware removal and antibiotic spacer placement with Dr. Fisher. White blood cell remains 20.1. Patient febrile last night with temp 102.3. Dr. Paul following for infectious disease. Patient currently on vancomycin and Maxipime. Awaiting blood and wound cultures. Wound and blood cultures growing presumtive MRSA. Patient will most likely need PICC line with long-term antibiotics post discharge. We'll evaluate for PICC line placement once patient was out of intensive care unit. She remains on Vanco and cefepime. 2. Postoperative Acute respiratory failure requiring mechanical ventilation, unexpected, most likely secondary to sepsis, septic shock and interstitial edema with pleural effusion fluid overload. Patient currently on mechanical ventilation. Patient being followed by Dr. Samuel for Pulmonary and critical care. Chest x-ray completed showing small right greater than left pleural effusion with adjacent atelectasis and/or consolidation likely interval improvement on the right. Possible background CHF. Questionable nodule density at the left midlung not seen previously may be summation artifact. Patient has been successfully extubated 25 L nasal cannula. Solu-Cortef 100 mg IV push every 8 hours has been added per pulmonary. 3. History of pancreatitis 4. History of coronary artery disease 5. History of rheumatoid arthritis. Patient was on methotrexate and followed by production generalist. Methotrexate currently on hold due to infection 6. History of GERD 7. History of heart catheterization or stent in November 2016. Lipitor and aspirin ordered. 8. Tachycardia. EKG showing sinus tachycardia likely related to febrile state. 9. Hypotension likely secondary to sepsis. Patient currently on levophed for blood pressure support. GI prophylaxis Pepcid and DVT prophylaxis Lovenox I performed an examination of the patient and discussed their management with the Nurse Practitioner. I have reviewed the Nurse Practitioner's notes and agree with the documented findings and plan of care
--- NOTE | 2018-06-13 17:09 | P.PN ---
Subjective Progress Note Date: 06/13/18 Principal diagnosis: Status post left knee hardware removal and antibiotic spacer placement and left shoulder I&D Patient is a 73 year-old male post left knee hardware removal and antibiotic spacer placement and left shoulder I&D. This is post-op day 2. The patient was evaluated at the bedside in the ICU today. He is awake, alert and oriented. He is in a pleasant mood. His pain appears to be controlled at this time. He denies any new complaints. Objective - Vital Signs Vital signs: Vital Signs Temp 98.3 F 06/13/18 12:00 Pulse 81 06/13/18 16:04 Resp 16 06/13/18 16:04 BP 96/54 06/13/18 14:30 Pulse Ox 96 06/13/18 14:30 Intake & Output 06/12/18 06/13/18 06/13/18 18:59 06:59 18:59 Intake Total 928.512 630.875 510 Output Total 1648 450 742 Balance -719.488 180.875 -232 Weight 88.8 kg Intake: IV 525 340 160 Magnesium Sulfate-D5w Pmx 200 1 gm In Dextrose/Water 1 100ml.bag @ 100 mls/hr IVPB Q1H [facility] Rx#: [id number] Sodium Chloride 0.9% 1, 200 240 160 000 ml @ 20 mls/hr IV . Q24H [facility] Rx#:[id number] Vancomycin 2,000 mg In 125 100 Sodium Chloride 0.9% 500 ml @ 167 mls/hr IVPB ONCE ONE Rx#:[id number] Intake, IV Titration 303.512 290.875 50 Amount Cefepime 2 gm In Sodium 100 50 Chloride 0.9% 50 ml @ 100 mls/hr IVPB Q8HR [facility] Rx# :[id number] Norepinephrine 4 mg In 178.250 190.875 0 Sodium Chloride 0.9% 250 ml @ Titrate IV .Q0M [facility] Rx#:[id number] Propofol 1,000 mg In 125.262 Empty Bag 1 bag @ 20 MCG/ KG/MIN 9.79 mls/hr IV . [id number] [facility] Rx#:[id number] Oral 300 Lipid 100 Cefepime 2 gm In Sodium 100 Chloride 0.9% 50 ml @ 100 mls/hr IVPB ONCE STA Rx# :[id number] Output: Urine 1648 450 742 Other: Voiding Method Indwelling Catheter Indwelling Catheter Indwelling Catheter - Exam Inspection reveals a benign surgical wound. There is no active bleeding or drainage. Neurovascular status is intact throughout the lower extremity with motor and sensation fully intact. Calf is soft and nontender. 2+ dorsalis pedis pulse and less than 2 second cap refill is present - Constitutional General appearance: Present: no acute distress - Psychiatric Psychiatric: Present: A&O x's 3, appropriate affect, intact judgment & insight - Labs CBC & Chem 7: 06/13/18 04:25 06/13/18 04:25 Labs: Abnormal Lab Results - Last 24 Hours (Table) 06/13/18 06/13/18 Range/Units 04:25 04:25 WBC 14.6 H (3.8-10.6) k/uL RBC 3.81 L (4.30-5.90) m/uL Hgb 12.3 L (13.0-17.5) gm/dL Hct 37.9 L (39.0-53.0) % Neutrophils # 12.7 H (1.3-7.7) k/uL Lymphocytes # 0.9 L (1.0-4.8) k/uL Sodium 135 L (137-145) mmol/L Glucose 108 H (74-99) mg/dL Calcium 7.6 L (8.4-10.2) mg/dL Total Protein 4.6 L (6.3-8.2) g/dL Albumin 2.3 L (3.5-5.0) g/dL Microbiology - Last 24 Hours (Table) 06/11/18 13:39 Gram Stain - Final Knee - Left Wound Culture - Final Methicillin resist S. aureus 06/11/18 13:39 Anaerobic Culture - Preliminary Knee - Left 06/12/18 07:25 Blood Culture - Preliminary Blood No Growth after 24 hours 06/11/18 12:57 Blood Culture Gram Stain - Preliminary Blood Blood Culture - Preliminary Presumptive MRSA 06/12/18 07:05 Blood Culture - Final Blood 06/12/18 07:05 Blood Culture Gram Stain - Preliminary Blood Blood Culture - Preliminary 06/11/18 19:17 Gram Stain - Preliminary Knee - Left Wound Culture - Preliminary Presumptive MRSA 06/11/18 19:17 Gram Stain - Preliminary Shoulder - Left Wound Culture - Preliminary 06/11/18 13:39 Urine Culture - Final Urine,Clean Catch Assessment and Plan (1) Septic arthritis of knee, left Narrative/Plan: 1. Continue pain control 2. Anticoagulation with Lovenox per medical management 3. Start physical therapy and ambulation as soon as medically stable 4. Will need PICC line placement. Will follow closely with infectious disease 5. Will continue to follow closely with internal medicine and pulmonary as well 6. Anticipate discharge to skilled rehab when medically and orthopedically stable. Current Visit: Yes Status: Acute Priority: Medium Code(s): M00.9 - PYOGENIC ARTHRITIS, UNSPECIFIED SNOMED Code(s): 571719831 Time with Patient: Less than 30
[2018-06-13 17:22] LABS: Glucose,Whole Blood 140 mg/dL (75-99)
[2018-06-13] MEDS: INSULIN ASPART 100 UNIT/ML 1 ML 10 ML VIAL SQ SCH ×2 (17:27→20:52)
[2018-06-13] MEDS: VANCOMYCIN 1,750 MG in SODIUM CHLORIDE 0.9% 500 ML IVPB SCH (18:09)
[2018-06-13 20:41] LABS: Glucose,Whole Blood 147 mg/dL (75-99)
[2018-06-13] MEDS: SENNOSIDES-DOCUSATE SODIUM 1 EACH TAB PO SCH (20:44)
[2018-06-13] MEDS: ATORVASTATIN 40 MG TAB PO SCH (20:44)
[2018-06-14] MEDS: oxyCODONE-APAP 10-325MG 1 EACH TAB PO PRN ×4 (02:45→22:09)
[2018-06-14 04:29] LABS: Basophils % (A) 0 %; Eosinophils % (A) 0 %; HGB 12.4 gm/dL (13.0-17.5); Lymphocytes % (A) 7 %; MCHC 32.5 g/dL (31.0-37.0); MCV 98.2 fL (80.0-100.0); Mean Platelet Volume 7.4; Monocytes # (A) 0.5 k/uL (0-1.0); Monocytes % (A) 3 %; Neutrophils # (A) 12.6 k/uL (1.3-7.7); Neutrophils % (A) 89 %; Platelet Count 257 k/uL (150-450); RBC 3.87 m/uL (4.30-5.90); RDW 13.9 % (11.5-15.5); WBC 14.2 k/uL (3.8-10.6)
[2018-06-14] MEDS: HYDROmorphone 1 MG/ML 1 ML SYRINGE IVP PRN ×4 (04:37→22:10)
[2018-06-14 04:39] LABS: ALT 27 U/L (21-72); AST 28 U/L (17-59); Albumin 2.6 g/dL (3.5-5.0); Alkaline Phosphatase 78 U/L (38-126); Anion Gap 7 mmol/L; Blood Urea Nitrogen 25 mg/dL (9-20); Calcium 7.7 mg/dL (8.4-10.2); Carbon Dioxide 27 mmol/L (22-30); Chloride 105 mmol/L (98-107); Glucose 142 mg/dL (74-99); Magnesium 1.8 mg/dL (1.6-2.3); Phosphorus 3.2 mg/dL (2.5-4.5); Potassium 3.7 mmol/L (3.5-5.1); Sodium 139 mmol/L (137-145); Total Bilirubin 0.3 mg/dL (0.2-1.3); Total Protein 5.3 g/dL (6.3-8.2)
[2018-06-14] MEDS: SODIUM CHLORIDE 0.9% 1,000 ML IV SCH ×2 (04:39→20:55)
[2018-06-14] MEDS ORDERED: POTASSIUM CHLORIDE ER 20 MEQ TAB.ER PO SCH (05:00)
[2018-06-14] MEDS: MAGNESIUM SULFATE-D5W PMX 1 GM in DEXTROSE/WATER 1 100ML.BAG IVPB SCH ×2 (06:17→10:13)
[2018-06-14] MEDS: VANCOMYCIN 1,750 MG in SODIUM CHLORIDE 0.9% 500 ML IVPB SCH ×2 (06:18→17:16)
[2018-06-14] MEDS: KETOROLAC 30 MG/ML 1 ML VIAL IVP SCH ×3 (06:19→17:24)
[2018-06-14 07:21] LABS: Glucose,Whole Blood 142 mg/dL (75-99)
[2018-06-14] MEDS: INSULIN ASPART 100 UNIT/ML 1 ML 10 ML VIAL SQ SCH ×4 (07:26→20:41)
[2018-06-14] MEDS: FUROSEMIDE 10 MG/ML 4 ML VIAL IV SCH ×2 (08:59→20:54)
[2018-06-14] MEDS: ASPIRIN 81 MG PO SCH (08:59)
[2018-06-14] MEDS: HYDROCORTISONE SUCCINATE 100 MG/2 ML VIAL IV SCH ×2 (08:59→17:16)
[2018-06-14] MEDS: ENOXAPARIN 40 MG/0.4 ML SYRINGE SQ SCH (08:59)
[2018-06-14] MEDS: FAMOTIDINE 20 MG TAB PO SCH (08:59)
[2018-06-14] MEDS: IPRATROPIUM-ALBUTEROL 3 ML NEB INHALATION SCH ×4 (09:01→21:02)
[2018-06-14] MEDS: CEFEPIME 2 GM in SODIUM CHLORIDE 0.9% 50 ML IVPB SCH ×2 (09:08→16:12)
--- NOTE | 2018-06-14 10:26 | P.PN ---
Subjective Progress Note Date: 06/14/18 Principal diagnosis: Status post left knee hardware removal and antibiotic spacer placement and left shoulder I&D Patient is a 73 year-old male post left knee hardware removal and antibiotic spacer placement and left shoulder I&D. This is post-op day 3. The patient was evaluated at the bedside in the ICU today. He is awake, alert and oriented. He is in a pleasant mood. His pain appears to be controlled at this time. He denies any new complaints. Objective - Vital Signs Vital signs: Vital Signs Temp 97.7 F 06/14/18 08:00 Pulse 66 06/14/18 09:30 Resp 22 06/14/18 09:30 BP 123/68 06/14/18 09:30 Pulse Ox 95 06/14/18 09:30 Intake & Output 06/13/18 06/14/18 06/14/18 18:59 06:59 18:59 Intake Total 450.459 6604 1041 Output Total 1342 1580 225 Balance -501.573 -106 816 Weight 83 kg Intake: IV 240 240 514 Cefepime 2 gm In Sodium 50 Chloride 0.9% 50 ml @ 100 mls/hr IVPB Q8HR [facility] Rx# :[id number] Magnesium Sulfate-D5w Pmx 100 1 gm In Dextrose/Water 1 100ml.bag @ 100 mls/hr IVPB Q1H [facility] Rx#: [id number] Sodium Chloride 0.9% 1, 240 240 30 000 ml @ 20 mls/hr IV . Q24H [facility] Rx#:[id number] Vancomycin 1,750 mg In 334 Sodium Chloride 0.9% 500 ml @ 167 mls/hr IVPB Q12H [facility] Rx#:[id number] Intake, IV Titration 300.427 434 167 Amount Cefepime 2 gm In Sodium 100 100 Chloride 0.9% 50 ml @ 100 mls/hr IVPB Q8HR [facility] Rx# :[id number] Norepinephrine 4 mg In 33.427 Sodium Chloride 0.9% 250 ml @ Titrate IV .Q0M [facility] Rx#:[id number] Vancomycin 1,750 mg In 167 334 167 Sodium Chloride 0.9% 500 ml @ 167 mls/hr IVPB Q12H [facility] Rx#:[id number] Oral 300 800 360 Output: Urine 1342 1580 225 Other: Voiding Method Indwelling Catheter Indwelling Catheter - Exam Inspection reveals benign surgical wounds. There is no active bleeding or drainage. Neurovascular status is intact throughout the lower and extremity with motor and sensation fully intact. Calf is soft and nontender. 2+ dorsalis pedis pulse, radial pulse and less than 2 second cap refill is present - Constitutional General appearance: Present: no acute distress - Psychiatric Psychiatric: Present: A&O x's 3, appropriate affect, intact judgment & insight - Labs CBC & Chem 7: 06/14/18 04:07 06/14/18 04:07 Labs: Abnormal Lab Results - Last 24 Hours (Table) 06/13/18 06/13/18 06/14/18 Range/Units 17:20 20:40 04:07 WBC (3.8-10.6) k/uL RBC (4.30-5.90) m/uL Hgb (13.0-17.5) gm/dL Hct (39.0-53.0) % Neutrophils # (1.3-7.7) k/uL BUN 25 H (9-20) mg/dL Glucose 142 H (74-99) mg/dL POC Glucose (mg/dL) 140 H 147 H (75-99) mg/dL Calcium 7.7 L (8.4-10.2) mg/dL Total Protein 5.3 L (6.3-8.2) g/dL Albumin 2.6 L (3.5-5.0) g/dL 06/14/18 06/14/18 Range/Units 04:07 07:20 WBC 14.2 H (3.8-10.6) k/uL RBC 3.87 L (4.30-5.90) m/uL Hgb 12.4 L (13.0-17.5) gm/dL Hct 38.0 L (39.0-53.0) % Neutrophils # 12.6 H (1.3-7.7) k/uL BUN (9-20) mg/dL Glucose (74-99) mg/dL POC Glucose (mg/dL) 142 H (75-99) mg/dL Calcium (8.4-10.2) mg/dL Total Protein (6.3-8.2) g/dL Albumin (3.5-5.0) g/dL Microbiology - Last 24 Hours (Table) 06/12/18 07:25 Blood Culture - Preliminary Blood No Growth after 48 hours 06/12/18 07:05 Blood Culture Gram Stain - Preliminary Blood Blood Culture - Preliminary Presumptive MRSA 06/11/18 19:17 Anaerobic Culture - Preliminary Knee - Left 06/11/18 19:17 Anaerobic Culture - Preliminary Shoulder - Left 06/11/18 12:57 Blood Culture Gram Stain - Final Blood Blood Culture - Final Methicillin resist S. aureus 06/11/18 19:17 Gram Stain - Final Shoulder - Left Wound Culture - Final 06/11/18 19:17 Gram Stain - Final Knee - Left Wound Culture - Final Methicillin resist S. aureus 06/11/18 13:39 Gram Stain - Final Knee - Left Wound Culture - Final Methicillin resist S. aureus 06/11/18 13:39 Anaerobic Culture - Preliminary Knee - Left 06/12/18 07:05 Blood Culture - Final Blood Assessment and Plan (1) Septic arthritis of knee, left Narrative/Plan: 1. Continue pain control 2. Anticoagulation with Lovenox per medical management 3. Start physical therapy and ambulation as soon as medically stable 4. Will need PICC line placement. Will follow closely with infectious disease 5. Will continue to follow closely with internal medicine and pulmonary as well 6. Anticipate discharge to skilled rehab when medically and orthopedically stable. Current Visit: Yes Status: Acute Priority: Medium Code(s): M00.9 - PYOGENIC ARTHRITIS, UNSPECIFIED SNOMED Code(s): 622776070 Time with Patient: Less than 30
--- NOTE | 2018-06-14 11:02 | P.PN ---
Subjective Progress Note Date: 06/14/18 This is a 73-year-old patient of Dr. Montemayor. Patient presented to the emergency room with complaint of left knee pain. Patient also states he's been having fevers and chills at home. Patient has a known past medical history of rheumatoid arthritis in which she follows with [facility] and was on methotrexate. Additional medical history includes coronary artery disease, COPD , GERD, pneumonia and pancreatitis multiple episodes. Chest x-ray completed emergency room showing right-sided pleural effusion. Underlying infiltrate is not excluded. EKG completed showing sinus tachycardia. Dr. Fisher per orthopedic services consulted. Patient had joint aspiration that was done in ER with purulent drainage from the left knee. Patient is also complaining of left shoulder pain in his status post left rotator cuff repair. Patient is scheduled for a [address] Fisher. White blood count 20.1. Blood culture and wound cultures have been received. Lactic acid 1.7. Patient febrile with a temp of 102.2. Infectious disease has been consulted. Vancomycin IV antibiotic ordered. UA negative. Patient denies chest pain or shortness of breath. Does complain of pain and left knee. Patient denies any nausea vomiting or diarrhea. Patient denies any urinary burning or frequency On 06/12/2018 patient is currently on mechanical ventilation in the intensive care unit. Patient underwent an incision and drainage of the left shoulder and an incision and drainage of the left knee with hardware removal and antibiotic spacer placement yesterday with Dr. Fisher. Patient came back from surgery on the ventilator. At this time patient is requiring Levophed for pressure support. Dr. Paul is following for infectious disease. Dr. Samuel is on for critical care management and pulmonary support. Possible attempt for weaning and Patient today. On 06/13/2018 patient has been successfully extubated yesterday. Patient is currently on a small amount of legal bed for pressure support. Patient currently on 5 L nasal cannula. At this time patient states that pain is adequately controlled. Patient denies chest pain or shortness breath. Patient denies nausea vomiting or diarrhea. Patient denies any urinary burning or frequency. On 06/14/2018 patient was seen and examined in ICU he is doing well he is alert and oriented 3 maintained on oxygen via nasal cannula and is scheduled to be transferred out of ICU today he is complaining of pain in the left shoulder and the left leg otherwise he denies any complaints there is no fever or chills no headache or dizziness no chest pain no shortness of breath no cough no nausea or vomiting no abdominal pain no diarrhea no blood in stools no urinary symptoms Objective - Vital Signs Vital signs: Vital Signs Temp 97.7 F 06/14/18 08:00 Pulse 74 06/14/18 10:30 Resp 19 06/14/18 10:30 BP 114/56 06/14/18 10:30 Pulse Ox 97 06/14/18 10:30 Intake & Output 06/13/18 06/14/18 06/14/18 18:59 06:59 18:59 Intake Total 879.585 0554 1041 Output Total 1342 1580 225 Balance -501.573 -106 816 Weight 83 kg Intake: IV 240 240 514 Cefepime 2 gm In Sodium 50 Chloride 0.9% 50 ml @ 100 mls/hr IVPB Q8HR [facility] Rx# :[id number] Magnesium Sulfate-D5w Pmx 100 1 gm In Dextrose/Water 1 100ml.bag @ 100 mls/hr IVPB Q1H [facility] Rx#: [id number] Sodium Chloride 0.9% 1, 240 240 30 000 ml @ 20 mls/hr IV . Q24H [facility] Rx#:[id number] Vancomycin 1,750 mg In 334 Sodium Chloride 0.9% 500 ml @ 167 mls/hr IVPB Q12H [facility] Rx#:[id number] Intake, IV Titration 300.427 434 167 Amount Cefepime 2 gm In Sodium 100 100 Chloride 0.9% 50 ml @ 100 mls/hr IVPB Q8HR [facility] Rx# :[id number] Norepinephrine 4 mg In 33.427 Sodium Chloride 0.9% 250 ml @ Titrate IV .Q0M [facility]YA Rx#:[id number] Vancomycin 1,750 mg In 167 334 167 Sodium Chloride 0.9% 500 ml @ 167 mls/hr IVPB Q12H [facility] Rx#:[id number] Oral 300 800 360 Output: Urine 1342 1580 225 Other: Voiding Method Indwelling Catheter Indwelling Catheter Indwelling Catheter - Exam Head normocephalic and atraumatic Neck supple no JVD no goiter Lungs bilateral wheezing patient currently on 5 L Heart regular rate and rhythm S1-S2, no rub or gallop Abdomen is soft nontender nondistended positive bowel sounds no hepatosplenomegaly Extremities no edema. Left shoulder dressing clean dry and intact. Left leg brace in place dressing clean dry and intact Neuro patient currently on sedation - Labs CBC & Chem 7: 06/14/18 04:07 06/14/18 04:07 Labs: Abnormal Lab Results - Last 24 Hours (Table) 06/13/18 06/13/18 06/14/18 Range/Units 17:20 20:40 04:07 WBC (3.8-10.6) k/uL RBC (4.30-5.90) m/uL Hgb (13.0-17.5) gm/dL Hct (39.0-53.0) % Neutrophils # (1.3-7.7) k/uL BUN 25 H (9-20) mg/dL Glucose 142 H (74-99) mg/dL POC Glucose (mg/dL) 140 H 147 H (75-99) mg/dL Calcium 7.7 L (8.4-10.2) mg/dL Total Protein 5.3 L (6.3-8.2) g/dL Albumin 2.6 L (3.5-5.0) g/dL 06/14/18 06/14/18 Range/Units 04:07 07:20 WBC 14.2 H (3.8-10.6) k/uL RBC 3.87 L (4.30-5.90) m/uL Hgb 12.4 L (13.0-17.5) gm/dL Hct 38.0 L (39.0-53.0) % Neutrophils # 12.6 H (1.3-7.7) k/uL BUN (9-20) mg/dL Glucose (74-99) mg/dL POC Glucose (mg/dL) 142 H (75-99) mg/dL Calcium (8.4-10.2) mg/dL Total Protein (6.3-8.2) g/dL Albumin (3.5-5.0) g/dL Microbiology - Last 24 Hours (Table) 06/12/18 07:25 Blood Culture - Preliminary Blood No Growth after 48 hours 06/12/18 07:05 Blood Culture Gram Stain - Preliminary Blood Blood Culture - Preliminary Presumptive MRSA 06/11/18 19:17 Anaerobic Culture - Preliminary Knee - Left 06/11/18 19:17 Anaerobic Culture - Preliminary Shoulder - Left 06/11/18 12:57 Blood Culture Gram Stain - Final Blood Blood Culture - Final Methicillin resist S. aureus 06/11/18 19:17 Gram Stain - Final Shoulder - Left Wound Culture - Final 06/11/18 19:17 Gram Stain - Final Knee - Left Wound Culture - Final Methicillin resist S. aureus 06/11/18 13:39 Gram Stain - Final Knee - Left Wound Culture - Final Methicillin resist S. aureus 06/11/18 13:39 Anaerobic Culture - Preliminary Knee - Left 06/12/18 07:05 Blood Culture - Final Blood Assessment and Plan Plan: 1. Sepsis secondary to left knee septic arthroplasty. White blood cell 20.2. Wound and blood cultures have been ordered. Joint aspiration performed emergency room. Infectious disease has been consulted. Continue vancomycin per infectious disease. Patient febrile with temp of 102.2. Plan for I&D of left knee today with Dr. Fisher. On 06/11 patient underwent incision changes of the left shoulder incision and drainage of the left knee with hardware removal and antibiotic spacer placement with Dr. Fisher. White blood cell remains 20.1. Patient febrile last night with temp 102.3. Dr. Paul following for infectious disease. Patient currently on vancomycin and Maxipime. Awaiting blood and wound cultures. Wound and blood cultures growing presumtive MRSA. Patient will most likely need PICC line with long-term antibiotics post discharge. We'll evaluate for PICC line placement once patient was out of intensive care unit. he remains on Vanco and cefepime. 2. Postoperative Acute respiratory failure requiring mechanical ventilation, unexpected, most likely secondary to sepsis, septic shock and interstitial edema with pleural effusion fluid overload. Patient currently on mechanical ventilation. Patient being followed by Dr. Samuel for Pulmonary and critical care. Chest x-ray completed showing small right greater than left pleural effusion with adjacent atelectasis and/or consolidation likely interval improvement on the right. Possible background CHF. Questionable nodule density at the left midlung not seen previously may be summation artifact. Patient has been successfully extubated 25 L nasal cannula. Solu-Cortef 100 mg IV push every 8 hours has been added per pulmonary. 3. History of pancreatitis 4. History of coronary artery disease 5. History of rheumatoid arthritis. Patient was on methotrexate and followed by [facility]. Methotrexate currently on hold due to infection 6. History of GERD 7. History of heart catheterization or stent in November 2016. Lipitor and aspirin ordered. 8. Tachycardia. EKG showing sinus tachycardia likely related to febrile state. 9. Hypotension likely secondary to sepsis. Patient currently on levophed for blood pressure support. GI prophylaxis Pepcid and DVT prophylaxis Lovenox
[2018-06-14 11:57] LABS: Glucose,Whole Blood 125 mg/dL (75-99)
--- NOTE | 2018-06-14 12:30 | P.PN ---
Subjective Progress Note Date: 06/14/18 Principal diagnosis: Acute left knee septic arthritis and septic shock. This is a 73-year-old white male with history of rheumatoid arthritis for 25 years, normally on methotrexate, and sometimes on prednisone. History of left total knee arthroplasty about 15 years ago, patient presented yesterday to the ER complaining of sudden left knee swelling and pain. Patient was also noted to be febrile with a temp of 102.2, he was tachycardic, and he had significant leukocytosis with WBC count of 20.1. Aspiration of the left knee showed purulent drainage, patient was seen by orthopedics, his lactic acid was also elevated at 1.7. Patient was started on antibiotics in the form of cefepime and vancomycin for presumptive septic joint and sepsis, he was taken to the operating room, and underwent incision and drainage of the left knee with removal of the left knee components and insertion of antibiotic spacers. Patient was also evaluated for his left shoulder pain, incision of the left shoulder with culture and sensitivity was done. He was felt to have synovitis of the left shoulder without active infection. He had chronic left rotator cuff tear. Postsurgically, the patient was transferred to the intensive care unit on mechanical ventilation. Chest x-ray which I reviewed post surgery clearly showed evidence of congestive heart failure, patient was apparently given lots of fluids upon his initial presentation, I recommended diuretics, and I recommended norepinephrine to control his low blood pressure. When I saw him this morning, patient was still on mechanical ventilation, his hemodynamics are significantly improved, he is on a very small tiny dose of norepinephrine less than 8 g, being tapered down, his urine output was excellent, chest x-ray showed significant improvement, patient was given a short the pressure support and CPAP trial, and proceeded to extubating the patient. Extubation was well- tolerated. Reevaluated today on 06/13/2018, patient was extubated yesterday, tolerated the extubation quite well. Patient is in quite a bit of pain, mostly pain in the left shoulder, across the chest when he coughs, and complaining of pain in the left knee joint. Blood pressure is marginal, his chest x-ray showed evidence of congestive heart failure and worsening right-sided pleural effusion today. Hence I have recommended more diuretics to be given. Patient told me today that he is usually on prednisone at 30 mg daily maintenance for [place] of time. Hence I started the patient today on Solu-Cortef 100 mg IV push every 8 hours , patient will be receiving stress doses of hydrocortisone for the next 48 hours , and then we will likely switch him back to his usual dose of prednisone. Reviewed the chest x-ray, and felt the patient needs more diuresis. CBC showed improved leukocytosis. Basic metabolic profile is normal, renal profile is normal. Patient was reevaluated today on 06/14/2018, continues to tolerate the extubation well, and he feels much per her today, he is hemodynamically stable, not requiring any pressors. Remains on Solu-Cortef which I cut down to 50 mg IV push every 8 hours. Patient is denying any pain. His chest x-ray is showing improvement in his congestive heart failure and fluid overload. Remains on diuretics, he has excellent urine output. Even the pain in the left shoulder and the left knee seems to be better compared to baseline. I reviewed had a relatively normal basic metabolic profile and normal CBC. Chest x-ray was also reviewed. Objective - Vital Signs Vital signs: Vital Signs Temp 97.6 F 06/14/18 12:00 Pulse 69 06/14/18 12:17 Resp 20 06/14/18 12:00 BP 108/65 06/14/18 12:00 Pulse Ox 99 06/14/18 12:00 Intake & Output 06/13/18 06/14/18 06/14/18 18:59 06:59 18:59 Intake Total 408.413 2140 1421 Output Total 1342 1580 1275 Balance -501.573 -106 146 Weight 83 kg Intake: IV 240 240 654 Cefepime 2 gm In Sodium 50 Chloride 0.9% 50 ml @ 100 mls/hr IVPB Q8HR [facility] Rx# :[id number] Magnesium Sulfate-D5w Pmx 200 1 gm In Dextrose/Water 1 100ml.bag @ 100 mls/hr IVPB Q1H [facility] Rx#: [id number] Sodium Chloride 0.9% 1, 240 240 70 000 ml @ 20 mls/hr IV . Q24H [facility] Rx#:[id number] Vancomycin 1,750 mg In 334 Sodium Chloride 0.9% 500 ml @ 167 mls/hr IVPB Q12H [facility] Rx#:[id number] Intake, IV Titration 300.427 434 167 Amount Cefepime 2 gm In Sodium 100 100 Chloride 0.9% 50 ml @ 100 mls/hr IVPB Q8HR [facility] Rx# :[id number] Norepinephrine 4 mg In 33.427 Sodium Chloride 0.9% 250 ml @ Titrate IV .Q0M [facility] Rx#:[id number] Vancomycin 1,750 mg In 167 334 167 Sodium Chloride 0.9% 500 ml @ 167 mls/hr IVPB Q12H [facility] Rx#:[id number] Oral 300 800 600 Output: Urine 1342 1580 1275 Other: Voiding Method Indwelling Catheter Indwelling Catheter Indwelling Catheter - Exam Physical Exam: Revealed a 73-year-old white male, on nasal cannula, in no distress. Head: Atraumatic, normocephalic. HEENT:[Neck is supple.] [No neck masses.] [No thyromegaly.] [No JVD.] Chest: Minimal crackles at the bases, no rhonchi and no wheezes noted..] Cardiac Exam: [Normal S1 and S2, no S3 gallop, no murmur.] Abdomen: [Soft, nontender, no megaly, no rebound, no guarding, normal bowel sounds.] Extremities: [No clubbing, no edema, no cyanosis.] His left knee is wrapped with a brace., Immobilized.. Left shoulder dressing is clean dry and intact. Neurological Exam: [No focal neurologic deficit. Alert oriented 3. Pharynx: No lymphadenopathy Psychiatric: Normal mood affect and mental status examination..] - Labs CBC & Chem 7: 06/14/18 04:07 06/14/18 04:07 Labs: Abnormal Lab Results - Last 24 Hours (Table) 06/13/18 06/13/18 06/14/18 Range/Units 17:20 20:40 04:07 WBC (3.8-10.6) k/uL RBC (4.30-5.90) m/uL Hgb (13.0-17.5) gm/dL Hct (39.0-53.0) % Neutrophils # (1.3-7.7) k/uL BUN 25 H (9-20) mg/dL Glucose 142 H (74-99) mg/dL POC Glucose (mg/dL) 140 H 147 H (75-99) mg/dL Calcium 7.7 L (8.4-10.2) mg/dL Total Protein 5.3 L (6.3-8.2) g/dL Albumin 2.6 L (3.5-5.0) g/dL 06/14/18 06/14/18 06/14/18 Range/Units 04:07 07:20 11:55 WBC 14.2 H (3.8-10.6) k/uL RBC 3.87 L (4.30-5.90) m/uL Hgb 12.4 L (13.0-17.5) gm/dL Hct 38.0 L (39.0-53.0) % Neutrophils # 12.6 H (1.3-7.7) k/uL BUN (9-20) mg/dL Glucose (74-99) mg/dL POC Glucose (mg/dL) 142 H 125 H (75-99) mg/dL Calcium (8.4-10.2) mg/dL Total Protein (6.3-8.2) g/dL Albumin (3.5-5.0) g/dL Microbiology - Last 24 Hours (Table) 06/11/18 19:17 Gram Stain - Final Knee - Left Wound Culture - Final Methicillin resist S. aureus 06/12/18 07:05 Blood Culture Gram Stain - Preliminary Blood Blood Culture - Preliminary Presumptive MRSA 06/12/18 07:25 Blood Culture - Preliminary Blood No Growth after 48 hours 06/11/18 19:17 Anaerobic Culture - Preliminary Knee - Left 06/11/18 19:17 Anaerobic Culture - Preliminary Shoulder - Left 06/11/18 12:57 Blood Culture Gram Stain - Final Blood Blood Culture - Final Methicillin resist S. aureus 06/11/18 19:17 Gram Stain - Final Shoulder - Left Wound Culture - Final 06/11/18 13:39 Gram Stain - Final Knee - Left Wound Culture - Final Methicillin resist S. aureus 06/11/18 13:39 Anaerobic Culture - Preliminary Knee - Left Assessment and Plan Assessment: Impression: 1 acute left knee septic arthritis, and left shoulder synovitis. 2 acute sepsis and strongly suspect septic shock since the patient did not respond to fluid boluses, and required norepinephrine overnight after surgery. 3 postoperative respiratory failure, unexpected, most likely secondary to sepsis , septic shock, and interstitial edema with pleural effusion and fluid overload as noted on the chest x-ray upon arrival to the ICU. 4 suspected diastolic congestive heart failure, hence the patient will need more diuresis today. This could very well be related to the significant fluids the patient received upon presentation when he was initially seen with sepsis and septic shock. 4 multiple comorbidities including rheumatoid arthritis, coronary artery disease , possible COPD, Recommendation: Continue present course of antibiotics, continue diuretics, bronchodilators, GI and DVT prophylaxis, continue Solu-Cortef at 50 mg IV push every 8 hours until we eventually transition him to his oral dose of prednisone 30 mg daily. Will transfer the patient out of the ICU today. Time with Patient: Less than 30
[2018-06-14] MEDS: FOLIC ACID 1 MG TAB PO SCH (12:31)
[2018-06-14 16:42] LABS: Glucose,Whole Blood 151 mg/dL (75-99)
[2018-06-14 20:33] LABS: Glucose,Whole Blood 117 mg/dL (75-99)
[2018-06-14] MEDS: SENNOSIDES-DOCUSATE SODIUM 1 EACH TAB PO SCH (20:53)
[2018-06-14] MEDS: ATORVASTATIN 40 MG TAB PO SCH (20:54)
[2018-06-15] MEDS: CEFEPIME 2 GM in SODIUM CHLORIDE 0.9% 50 ML IVPB SCH ×4 (00:15→23:38)
[2018-06-15] MEDS: KETOROLAC 30 MG/ML 1 ML VIAL IVP SCH ×5 (00:16→23:38)
[2018-06-15] MEDS: HYDROCORTISONE SUCCINATE 100 MG/2 ML VIAL IV SCH ×2 (01:04→09:21)
[2018-06-15] MEDS: HYDROmorphone 1 MG/ML 1 ML SYRINGE IVP PRN ×6 (01:05→20:53)
[2018-06-15] MEDS: INSULIN ASPART 100 UNIT/ML 1 ML 10 ML VIAL SQ SCH ×4 (05:41→20:53)
[2018-06-15 05:42] LABS: Glucose,Whole Blood 115 mg/dL (75-99)
[2018-06-15] MEDS: oxyCODONE-APAP 10-325MG 1 EACH TAB PO PRN ×2 (05:42→17:39)
[2018-06-15] MEDS: VANCOMYCIN 1,750 MG in SODIUM CHLORIDE 0.9% 500 ML IVPB SCH ×2 (06:04→17:33)
[2018-06-15 06:37] LABS: Basophils % (A) 0 %; Eosinophils % (A) 0 %; HCT 37.5 % (39.0-53.0); HGB 12.3 gm/dL (13.0-17.5); Lymphocytes # (A) 1.4 k/uL (1.0-4.8); Lymphocytes % (A) 12 %; MCHC 32.8 g/dL (31.0-37.0); MCV 97.6 fL (80.0-100.0); Mean Platelet Volume 6.9; Monocytes # (A) 0.5 k/uL (0-1.0); Monocytes % (A) 5 %; Neutrophils # (A) 9.3 k/uL (1.3-7.7); Neutrophils % (A) 82 %; Platelet Count 297 k/uL (150-450); RBC 3.84 m/uL (4.30-5.90); RDW 13.9 % (11.5-15.5); WBC 11.4 k/uL (3.8-10.6)
[2018-06-15 06:55] LABS: ALT 32 U/L (21-72); AST 31 U/L (17-59); Albumin 2.8 g/dL (3.5-5.0); Alkaline Phosphatase 69 U/L (38-126); Anion Gap 8 mmol/L; Blood Urea Nitrogen 30 mg/dL (9-20); Calcium 8.4 mg/dL (8.4-10.2); Carbon Dioxide 27 mmol/L (22-30); Chloride 106 mmol/L (98-107); Glucose 104 mg/dL (74-99); Phosphorus 3.4 mg/dL (2.5-4.5); Potassium 3.7 mmol/L (3.5-5.1); Sodium 141 mmol/L (137-145); Total Bilirubin 0.4 mg/dL (0.2-1.3); Total Protein 5.5 g/dL (6.3-8.2)
[2018-06-15] MEDS: IPRATROPIUM-ALBUTEROL 3 ML NEB INHALATION SCH ×4 (07:59→21:30)
[2018-06-15] MEDS: ENOXAPARIN 40 MG/0.4 ML SYRINGE SQ SCH (09:22)
[2018-06-15] MEDS: FAMOTIDINE 20 MG TAB PO SCH (09:22)
[2018-06-15] MEDS: FOLIC ACID 1 MG TAB PO SCH (09:22)
[2018-06-15] MEDS: ASPIRIN 81 MG PO SCH (09:22)
[2018-06-15] MEDS: FUROSEMIDE 10 MG/ML 4 ML VIAL IV SCH ×2 (09:23→20:55)
[2018-06-15] MEDS ORDERED: Potassium Replacement Protocol 1 EACH MISC MISCELLANE PRN (09:27)
[2018-06-15] MEDS ORDERED: POTASSIUM CHLORIDE ER 20 MEQ TAB.ER PO SCH (10:00)
--- NOTE | 2018-06-15 10:23 | P.PN ---
Subjective Progress Note Date: 06/15/18 Principal diagnosis: Acute left knee septic arthritis and septic shock. This is a 73-year-old white male with history of rheumatoid arthritis for 25 years, normally on methotrexate, and sometimes on prednisone. History of left total knee arthroplasty about 15 years ago, patient presented yesterday to the ER complaining of sudden left knee swelling and pain. Patient was also noted to be febrile with a temp of 102.2, he was tachycardic, and he had significant leukocytosis with WBC count of 20.1. Aspiration of the left knee showed purulent drainage, patient was seen by orthopedics, his lactic acid was also elevated at 1.7. Patient was started on antibiotics in the form of cefepime and vancomycin for presumptive septic joint and sepsis, he was taken to the operating room, and underwent incision and drainage of the left knee with removal of the left knee components and insertion of antibiotic spacers. Patient was also evaluated for his left shoulder pain, incision of the left shoulder with culture and sensitivity was done. He was felt to have synovitis of the left shoulder without active infection. He had chronic left rotator cuff tear. Postsurgically, the patient was transferred to the intensive care unit on mechanical ventilation. Chest x-ray which I reviewed post surgery clearly showed evidence of congestive heart failure, patient was apparently given lots of fluids upon his initial presentation, I recommended diuretics, and I recommended norepinephrine to control his low blood pressure. When I saw him this morning, patient was still on mechanical ventilation, his hemodynamics are significantly improved, he is on a very small tiny dose of norepinephrine less than 8 g, being tapered down, his urine output was excellent, chest x-ray showed significant improvement, patient was given a short the pressure support and CPAP trial, and proceeded to extubating the patient. Extubation was well- tolerated. Reevaluated today on 06/13/2018, patient was extubated yesterday, tolerated the extubation quite well. Patient is in quite a bit of pain, mostly pain in the left shoulder, across the chest when he coughs, and complaining of pain in the left knee joint. Blood pressure is marginal, his chest x-ray showed evidence of congestive heart failure and worsening right-sided pleural effusion today. Hence I have recommended more diuretics to be given. Patient told me today that he is usually on prednisone at 30 mg daily maintenance for [place] of time. Hence I started the patient today on Solu-Cortef 100 mg IV push every 8 hours , patient will be receiving stress doses of hydrocortisone for the next 48 hours , and then we will likely switch him back to his usual dose of prednisone. Reviewed the chest x-ray, and felt the patient needs more diuresis. CBC showed improved leukocytosis. Basic metabolic profile is normal, renal profile is normal. Patient was reevaluated today on 06/14/2018, continues to tolerate the extubation well, and he feels much per her today, he is hemodynamically stable, not requiring any pressors. Remains on Solu-Cortef which I cut down to 50 mg IV push every 8 hours. Patient is denying any pain. His chest x-ray is showing improvement in his congestive heart failure and fluid overload. Remains on diuretics, he has excellent urine output. Even the pain in the left shoulder and the left knee seems to be better compared to baseline. I reviewed had a relatively normal basic metabolic profile and normal CBC. Chest x-ray was also reviewed. Patient was reevaluated on 07/12/2018, he is now on selective doing great, hemodynamically stable, relatively asymptomatic. Not requiring any pressors, remains on Solu-Cortef which I have changed to oral prednisone 30 mg normal dose that he usually takes for his rheumatoid arthritis. And the Solu-Cortef was discontinued. Cultures including blood cultures and joint fluid cultures came back positive for MRSA. Patient remains on antibiotics/vancomycin as per infectious disease on the case. He may eventually require a PICC line placement , and will need at least IV antibiotics were good 6 weeks. Labs today showed relatively normal CBC normal basic metabolic profile and the relatively normal renal profile. Objective - Vital Signs Vital signs: Vital Signs Temp 99.1 F 06/15/18 08:00 Pulse 72 06/15/18 08:10 Resp 18 06/15/18 08:00 BP 129/73 06/15/18 08:00 Pulse Ox 92 L 06/15/18 08:00 Intake & Output 06/14/18 06/15/18 06/15/18 18:59 06:59 18:59 Intake Total 1421 360 Output Total 1275 925 Balance 146 -925 360 Weight 90.5 kg Intake: IV 654 Cefepime 2 gm In Sodium 50 Chloride 0.9% 50 ml @ 100 mls/hr IVPB Q8HR [facility] Rx# :[id number] Magnesium Sulfate-D5w Pmx 200 1 gm In Dextrose/Water 1 100ml.bag @ 100 mls/hr IVPB Q1H [facility] Rx#: [id number] Sodium Chloride 0.9% 1, 70 000 ml @ 20 mls/hr IV . Q24H [facility] Rx#:[id number] Vancomycin 1,750 mg In 334 Sodium Chloride 0.9% 500 ml @ 167 mls/hr IVPB Q12H [facility] Rx#:[id number] Intake, IV Titration 167 Amount Vancomycin 1,750 mg In 167 Sodium Chloride 0.9% 500 ml @ 167 mls/hr IVPB Q12H [facility] Rx#:[id number] Oral 600 360 Output: Urine 1275 925 Other: Voiding Method Indwelling Catheter Urinal - Exam Physical Exam: Revealed a 73-year-old white male, on nasal cannula, in no distress. Head: Atraumatic, normocephalic. HEENT:[Neck is supple.] [No neck masses.] [No thyromegaly.] [No JVD.] Chest: Minimal crackles at the bases, no rhonchi and no wheezes noted..] Cardiac Exam: [Normal S1 and S2, no S3 gallop, no murmur.] Abdomen: [Soft, nontender, no megaly, no rebound, no guarding, normal bowel sounds.] Extremities: [No clubbing, no edema, no cyanosis.] His left knee is wrapped with a brace., Immobilized.. Left shoulder dressing is clean dry and intact. Neurological Exam: [No focal neurologic deficit. Alert oriented 3. Pharynx: No lymphadenopathy Psychiatric: Normal mood affect and mental status examination..] - Labs CBC & Chem 7: 06/15/18 06:01 06/15/18 06:01 Labs: Abnormal Lab Results - Last 24 Hours (Table) 06/14/18 06/14/18 06/14/18 Range/Units 11:55 16:40 20:32 WBC (3.8-10.6) k/uL RBC (4.30-5.90) m/uL Hgb (13.0-17.5) gm/dL Hct (39.0-53.0) % Neutrophils # (1.3-7.7) k/uL BUN (9-20) mg/dL Glucose (74-99) mg/dL POC Glucose (mg/dL) 125 H 151 H 117 H (75-99) mg/dL Total Protein (6.3-8.2) g/dL Albumin (3.5-5.0) g/dL 06/15/18 06/15/18 06/15/18 Range/Units 05:41 06:01 06:01 WBC 11.4 H (3.8-10.6) k/uL RBC 3.84 L (4.30-5.90) m/uL Hgb 12.3 L (13.0-17.5) gm/dL Hct 37.5 L (39.0-53.0) % Neutrophils # 9.3 H (1.3-7.7) k/uL BUN 30 H (9-20) mg/dL Glucose 104 H (74-99) mg/dL POC Glucose (mg/dL) 115 H (75-99) mg/dL Total Protein 5.5 L (6.3-8.2) g/dL Albumin 2.8 L (3.5-5.0) g/dL Microbiology - Last 24 Hours (Table) 06/12/18 07:25 Blood Culture - Preliminary Blood No Growth after 72 hours 06/12/18 07:05 Blood Culture Gram Stain - Final Blood Blood Culture - Final Methicillin resist S. aureus 06/11/18 19:17 Gram Stain - Final Knee - Left Wound Culture - Final Methicillin resist S. aureus Assessment and Plan Assessment: Impression: 1 acute left knee septic arthritis, and left shoulder synovitis. 2 acute sepsis and septic shock with MRSA bacteremia, patient did not respond to fluid boluses, and required norepinephrine overnight after surgery. 3 postoperative respiratory failure, unexpected, most likely secondary to sepsis , septic shock, and interstitial edema with pleural effusion and fluid overload as noted on the chest x-ray upon arrival to the ICU. 4 suspected diastolic congestive heart failure, hence the patient will need more diuresis today. This could very well be related to the significant fluids the patient received upon presentation when he was initially seen with sepsis and septic shock. 4 multiple comorbidities including rheumatoid arthritis, coronary artery disease , possible COPD, Recommendation: Continue present course of antibiotics, continue diuretics, bronchodilators, GI and DVT prophylaxis, discontinue Solu-Cortef, started on prednisone 30 mg daily, this is his usual maintenance dose for rheumatoid arthritis. Patient could be considered for PICC line placement tomorrow, will need IV antibiotics for about 6 weeks. We will continue to follow. Time with Patient: Less than 30
--- NOTE | 2018-06-15 11:03 | P.PN ---
Subjective Progress Note Date: 06/15/18 This is a 73-year-old patient of Dr. Montemayor. Patient presented to the emergency room with complaint of left knee pain. Patient also states he's been having fevers and chills at home. Patient has a known past medical history of rheumatoid arthritis in which she follows with associate professor of economics and was on methotrexate. Additional medical history includes coronary artery disease, COPD , GERD, pneumonia and pancreatitis multiple episodes. Chest x-ray completed emergency room showing right-sided pleural effusion. Underlying infiltrate is not excluded. EKG completed showing sinus tachycardia. Dr. Fisher per orthopedic services consulted. Patient had joint aspiration that was done in ER with purulent drainage from the left knee. Patient is also complaining of left shoulder pain in his status post left rotator cuff repair. Patient is scheduled for a [address] Fisher. White blood count 20.1. Blood culture and wound cultures have been received. Lactic acid 1.7. Patient febrile with a temp of 102.2. Infectious disease has been consulted. Vancomycin IV antibiotic ordered. UA negative. Patient denies chest pain or shortness of breath. Does complain of pain and left knee. Patient denies any nausea vomiting or diarrhea. Patient denies any urinary burning or frequency On 06/12/2018 patient is currently on mechanical ventilation in the intensive care unit. Patient underwent an incision and drainage of the left shoulder and an incision and drainage of the left knee with hardware removal and antibiotic spacer placement yesterday with Dr. Fisher. Patient came back from surgery on the ventilator. At this time patient is requiring Levophed for pressure support. Dr. Paul is following for infectious disease. Dr. Samuel is on for critical care management and pulmonary support. Possible attempt for weaning and Patient today. On 06/13/2018 patient has been successfully extubated yesterday. Patient is currently on a small amount of legal bed for pressure support. Patient currently on 5 L nasal cannula. At this time patient states that pain is adequately controlled. Patient denies chest pain or shortness breath. Patient denies nausea vomiting or diarrhea. Patient denies any urinary burning or frequency. On 06/14/2018 patient was seen and examined in ICU he is doing well he is alert and oriented 3 maintained on oxygen via nasal cannula and is scheduled to be transferred out of ICU today he is complaining of pain in the left shoulder and the left leg otherwise he denies any complaints there is no fever or chills no headache or dizziness no chest pain no shortness of breath no cough no nausea or vomiting no abdominal pain no diarrhea no blood in stools no urinary symptoms On 06/15/2018 patient is currently alert and oriented 3 resting comfortably in bed. Patient is no longer in intensive care unit. Patient is currently on room air. Patient states he is feeling much improved. At this time patient denies chest pain or shortness of breath. Patient denies nausea vomiting or diarrhea. Patient denies any urinary burning or frequency. Dressing to left shoulder and left leg clean dry and intact. Objective - Vital Signs Vital signs: Vital Signs Temp 99.1 F 06/15/18 08:00 Pulse 72 06/15/18 08:10 Resp 18 06/15/18 08:00 BP 129/73 06/15/18 08:00 Pulse Ox 92 L 06/15/18 08:00 Intake & Output 06/14/18 06/15/18 06/15/18 18:59 06:59 18:59 Intake Total 1421 360 Output Total 1275 925 Balance 146 -925 360 Weight 90.5 kg Intake: IV 654 Cefepime 2 gm In Sodium 50 Chloride 0.9% 50 ml @ 100 mls/hr IVPB Q8HR [facility] Rx# :[id number] Magnesium Sulfate-D5w Pmx 200 1 gm In Dextrose/Water 1 100ml.bag @ 100 mls/hr IVPB Q1H [facility] Rx#: [id number] Sodium Chloride 0.9% 1, 70 000 ml @ 20 mls/hr IV . Q24H [facility] Rx#:[id number] Vancomycin 1,750 mg In 334 Sodium Chloride 0.9% 500 ml @ 167 mls/hr IVPB Q12H [facility] Rx#:[id number] Intake, IV Titration 167 Amount Vancomycin 1,750 mg In 167 Sodium Chloride 0.9% 500 ml @ 167 mls/hr IVPB Q12H [facility] Rx#:[id number] Oral 600 360 Output: Urine 1275 925 Other: Voiding Method Indwelling Catheter Urinal Urinal - Exam Head normocephalic Neck supple Lungs minutes bilaterally Heart regular rate and rhythm S1-S2, no rub or gallop Abdomen is soft nontender nondistended positive bowel sounds no hepatosplenomegaly Extremities no edema. Left shoulder dressing clean dry and intact. Left leg brace in place dressing clean dry and intact Neuro patient currently on sedation - Labs CBC & Chem 7: 06/15/18 06:01 06/15/18 06:01 Labs: Abnormal Lab Results - Last 24 Hours (Table) 06/14/18 06/14/18 06/14/18 Range/Units 11:55 16:40 20:32 WBC (3.8-10.6) k/uL RBC (4.30-5.90) m/uL Hgb (13.0-17.5) gm/dL Hct (39.0-53.0) % Neutrophils # (1.3-7.7) k/uL BUN (9-20) mg/dL Glucose (74-99) mg/dL POC Glucose (mg/dL) 125 H 151 H 117 H (75-99) mg/dL Total Protein (6.3-8.2) g/dL Albumin (3.5-5.0) g/dL 06/15/18 06/15/18 06/15/18 Range/Units 05:41 06:01 06:01 WBC 11.4 H (3.8-10.6) k/uL RBC 3.84 L (4.30-5.90) m/uL Hgb 12.3 L (13.0-17.5) gm/dL Hct 37.5 L (39.0-53.0) % Neutrophils # 9.3 H (1.3-7.7) k/uL BUN 30 H (9-20) mg/dL Glucose 104 H (74-99) mg/dL POC Glucose (mg/dL) 115 H (75-99) mg/dL Total Protein 5.5 L (6.3-8.2) g/dL Albumin 2.8 L (3.5-5.0) g/dL Microbiology - Last 24 Hours (Table) 06/12/18 07:25 Blood Culture - Preliminary Blood No Growth after 72 hours 06/12/18 07:05 Blood Culture Gram Stain - Final Blood Blood Culture - Final Methicillin resist S. aureus 06/11/18 19:17 Gram Stain - Final Knee - Left Wound Culture - Final Methicillin resist S. aureus Assessment and Plan Assessment: 1. Sepsis secondary to left knee septic arthroplasty. White blood cell 20.2. Wound and blood cultures have been ordered. Joint aspiration performed emergency room. Infectious disease has been consulted. Continue vancomycin per infectious disease. Patient febrile with temp of 102.2. Plan for I&D of left knee today with Dr. Fisher. On 06/11 patient underwent incision changes of the left shoulder incision and drainage of the left knee with hardware removal and antibiotic spacer placement with Dr. Fisher. White blood cell remains 20.1. Patient febrile last night with temp 102.3. Dr. Paul following for infectious disease. Patient currently on vancomycin and Maxipime. Awaiting blood and wound cultures. Wound and blood cultures growing presumtive MRSA. Patient will most likely need PICC line with long-term antibiotics post discharge. We'll evaluate for PICC line placement once patient was out of intensive care unit. Patient remains on Vanco and cefepime. Order for PICC line in place. Per Dr. Paul patient will require at least 6 weeks of IV antibiotic therapy for complex infection. 2. Postoperative Acute respiratory failure requiring mechanical ventilation, unexpected, most likely secondary to sepsis, septic shock and interstitial edema with pleural effusion fluid overload. Patient currently on mechanical ventilation. Patient being followed by Dr. Samuel for Pulmonary and critical care. Chest x-ray completed showing small right greater than left pleural effusion with adjacent atelectasis and/or consolidation likely interval improvement on the right. Possible background CHF. Questionable nodule density at the left midlung not seen previously may be summation artifact. Patient has been successfully extubated 5 L nasal cannula. Solu-Cortef 100 mg IV push every 8 hours has been added per pulmonary. Patient currently on Lasix 40 mg every 12 hours per pulmonary. She has been switched over to oral prednisone per pulmonary. 3. History of pancreatitis 4. History of coronary artery disease 5. History of rheumatoid arthritis. Patient was on methotrexate and followed by associate professor of economics. Methotrexate currently on hold due to infection 6. History of GERD 7. History of heart catheterization or stent in November 2016. Lipitor and aspirin ordered. 8. Tachycardia. EKG showing sinus tachycardia likely related to febrile state. Resolved 9. Hypotension likely secondary to sepsis. Resolved GI prophylaxis Pepcid and DVT prophylaxis Lovenox I performed an examination of the patient and discussed their management with the Nurse Practitioner. I have reviewed the Nurse Practitioner's notes and agree with the documented findings and plan of care
[2018-06-15 12:04] LABS: Glucose,Whole Blood 90 mg/dL (75-99)
[2018-06-15] MEDS: predniSONE 10 MG TAB PO SCH (12:05)
--- NOTE | 2018-06-15 13:42 | P.PN ---
Subjective Progress Note Date: 06/15/18 Principal diagnosis: Status post left knee hardware removal and antibiotic spacer placement and left shoulder I&D Patient is a 73 year-old male post left knee hardware removal and antibiotic spacer placement and left shoulder I&D. This is post-op day 4. The patient was evaluated at the bedside today. He has been transferred out of ICU. He is awake, alert and oriented. He is in a pleasant mood. His pain appears to be controlled at this time. He denies any new complaints. Objective - Vital Signs Vital signs: Vital Signs Temp 100.5 F H 06/15/18 12:00 Pulse 80 06/15/18 12:46 Resp 18 06/15/18 12:00 BP 120/86 06/15/18 12:00 Pulse Ox 91 L 06/15/18 12:00 Intake & Output 06/14/18 06/15/18 06/15/18 18:59 06:59 18:59 Intake Total 1421 600 Output Total 1275 925 Balance 146 -925 600 Weight 90.5 kg Intake: IV 654 Cefepime 2 gm In Sodium 50 Chloride 0.9% 50 ml @ 100 mls/hr IVPB Q8HR [facility] Rx# :[id number] Magnesium Sulfate-D5w Pmx 200 1 gm In Dextrose/Water 1 100ml.bag @ 100 mls/hr IVPB Q1H [facility] Rx#: [id number] Sodium Chloride 0.9% 1, 70 000 ml @ 20 mls/hr IV . Q24H [facility] Rx#:[id number] Vancomycin 1,750 mg In 334 Sodium Chloride 0.9% 500 ml @ 167 mls/hr IVPB Q12H [facility] Rx#:[id number] Intake, IV Titration 167 Amount Vancomycin 1,750 mg In 167 Sodium Chloride 0.9% 500 ml @ 167 mls/hr IVPB Q12H [facility] Rx#:[id number] Oral 600 600 Output: Urine 1275 925 Other: Voiding Method Indwelling Catheter Urinal Urinal - Exam Inspection reveals benign surgical wounds. There is no active bleeding or drainage. Neurovascular status is intact throughout the lower and extremity with motor and sensation fully intact. Calf is soft and nontender. 2+ dorsalis pedis pulse, radial pulse and less than 2 second cap refill is present - Constitutional General appearance: Present: no acute distress - Psychiatric Psychiatric: Present: A&O x's 3, appropriate affect, intact judgment & insight - Labs CBC & Chem 7: 06/15/18 06:01 06/15/18 06:01 Labs: Abnormal Lab Results - Last 24 Hours (Table) 06/14/18 06/14/18 06/15/18 Range/Units 16:40 20:32 05:41 WBC (3.8-10.6) k/uL RBC (4.30-5.90) m/uL Hgb (13.0-17.5) gm/dL Hct (39.0-53.0) % Neutrophils # (1.3-7.7) k/uL BUN (9-20) mg/dL Glucose (74-99) mg/dL POC Glucose (mg/dL) 151 H 117 H 115 H (75-99) mg/dL Total Protein (6.3-8.2) g/dL Albumin (3.5-5.0) g/dL 06/15/18 06/15/18 Range/Units 06:01 06:01 WBC 11.4 H (3.8-10.6) k/uL RBC 3.84 L (4.30-5.90) m/uL Hgb 12.3 L (13.0-17.5) gm/dL Hct 37.5 L (39.0-53.0) % Neutrophils # 9.3 H (1.3-7.7) k/uL BUN 30 H (9-20) mg/dL Glucose 104 H (74-99) mg/dL POC Glucose (mg/dL) (75-99) mg/dL Total Protein 5.5 L (6.3-8.2) g/dL Albumin 2.8 L (3.5-5.0) g/dL Microbiology - Last 24 Hours (Table) 06/11/18 12:57 Blood Culture Gram Stain - Final Blood Blood Culture - Final Methicillin resist S. aureus 06/11/18 13:39 Anaerobic Culture - Final Knee - Left 06/12/18 07:05 Blood Culture Gram Stain - Final Blood Blood Culture - Final Methicillin resist S. aureus 06/12/18 07:25 Blood Culture - Preliminary Blood No Growth after 72 hours 06/11/18 19:17 Gram Stain - Final Knee - Left Wound Culture - Final Methicillin resist S. aureus Assessment and Plan (1) Septic arthritis of knee, left Narrative/Plan: 1. Continue pain control 2. Anticoagulation with Lovenox per medical management 3. Start physical therapy and ambulation as soon as medically stable 4. Will need PICC line placement. Will follow closely with infectious disease 5. Will continue to follow closely with internal medicine and pulmonary as well 6. Anticipate discharge to skilled rehab in next few days when ok with ID and IM/Pulm. Current Visit: Yes Status: Acute Priority: Medium Code(s): M00.9 - PYOGENIC ARTHRITIS, UNSPECIFIED SNOMED Code(s): 978903947 Time with Patient: Less than 30
[2018-06-15 17:07] LABS: Glucose,Whole Blood 130 mg/dL (75-99)
[2018-06-15 20:49] LABS: Glucose,Whole Blood 131 mg/dL (75-99)
[2018-06-15] MEDS: SENNOSIDES-DOCUSATE SODIUM 1 EACH TAB PO SCH ×2 (20:54→20:55)
[2018-06-15] MEDS: ATORVASTATIN 40 MG TAB PO SCH (20:55)
[2018-06-15] MEDS: SODIUM CHLORIDE 0.9% 1,000 ML IV SCH (22:00)
[2018-06-16] MEDS: oxyCODONE-APAP 10-325MG 1 EACH TAB PO PRN ×4 (00:27→18:26)
[2018-06-16] MEDS: HYDROmorphone 1 MG/ML 1 ML SYRINGE IVP PRN ×7 (00:28→21:34)
[2018-06-16] MEDS ORDERED: VANCOMYCIN TROUGH DUE 1 EACH MISC MISCELLANE ONE (05:00)
[2018-06-16] MEDS: KETOROLAC 30 MG/ML 1 ML VIAL IVP SCH (05:41)
[2018-06-16] MEDS: VANCOMYCIN 1,750 MG in SODIUM CHLORIDE 0.9% 500 ML IVPB SCH ×2 (05:52→18:27)
[2018-06-16] MEDS: INSULIN ASPART 100 UNIT/ML 1 ML 10 ML VIAL SQ SCH ×3 (06:20→18:27)
[2018-06-16 06:31] LABS: Glucose,Whole Blood 83 mg/dL (75-99)
[2018-06-16 06:34] LABS: Basophils % (A) 0 %; Eosinophils % (A) 0 %; HCT 38.9 % (39.0-53.0); HGB 12.7 gm/dL (13.0-17.5); Lymphocytes # (A) 2.1 k/uL (1.0-4.8); Lymphocytes % (A) 16 %; MCH 32.2 pg (25.0-35.0); MCHC 32.7 g/dL (31.0-37.0); MCV 98.4 fL (80.0-100.0); Mean Platelet Volume 6.8; Monocytes # (A) 0.4 k/uL (0-1.0); Monocytes % (A) 3 %; Neutrophils # (A) 10.7 k/uL (1.3-7.7); Neutrophils % (A) 80 %; Platelet Count 300 k/uL (150-450); RBC 3.95 m/uL (4.30-5.90); RDW 13.9 % (11.5-15.5); WBC 13.4 k/uL (3.8-10.6)
[2018-06-16 06:46] LABS: Anion Gap 8 mmol/L; Blood Urea Nitrogen 30 mg/dL (9-20); Calcium 8.2 mg/dL (8.4-10.2); Carbon Dioxide 28 mmol/L (22-30); Chloride 104 mmol/L (98-107); Glucose 77 mg/dL (74-99); Magnesium 1.7 mg/dL (1.6-2.3); Phosphorus 2.8 mg/dL (2.5-4.5); Potassium 3.4 mmol/L (3.5-5.1); Sodium 140 mmol/L (137-145)
[2018-06-16] MEDS ORDERED: Potassium Replacement Protocol 1 EACH MISC MISCELLANE PRN (08:10)
[2018-06-16] MEDS: predniSONE 10 MG TAB PO SCH (08:13)
[2018-06-16] MEDS: FOLIC ACID 1 MG TAB PO SCH (08:13)
--- NOTE | 2018-06-16 08:13 | XR ---
EXAMINATION TYPE: XR chest 1V portable DATE OF EXAM: 06/16/2018 COMPARISON: 06/13/2018 INDICATION: Pleural effusion TECHNIQUE: Single frontal view of the chest is obtained. FINDINGS: The heart size is normal. The pulmonary vasculature is normal. There is some increased opacity through the right costophrenic angle extending along the right latera l margin. This is somewhat improved from prior study. Diminishing right pleural effusion may be prese nt. Some adjacent atelectasis may be present. IMPRESSION: 1. Improving right pleural effusion. Small residual with adjacent atelectasis may be present.
[2018-06-16] MEDS: FUROSEMIDE 10 MG/ML 4 ML VIAL IV SCH ×2 (08:14→20:59)
[2018-06-16] MEDS: FAMOTIDINE 20 MG TAB PO SCH (08:14)
[2018-06-16] MEDS: ASPIRIN 81 MG PO SCH (08:14)
[2018-06-16] MEDS: CEFEPIME 2 GM in SODIUM CHLORIDE 0.9% 50 ML IVPB SCH ×2 (08:22→15:26)
[2018-06-16] MEDS: IPRATROPIUM-ALBUTEROL 3 ML NEB INHALATION SCH ×4 (08:23→20:33)
--- NOTE | 2018-06-16 08:28 | P.PN ---
Subjective Progress Note Date: 06/16/18 Principal diagnosis: Status post left knee hardware removal and antibiotic spacer placement and left shoulder I&D This is a 73 year-old male post left knee hardware removal and antibiotic spacer placement and left shoulder I&D. This is post-op day 5. The patient was evaluated at the bedside today. His pain appears to be controlled at this time. The patient has been up with physical therapy. Objective - Vital Signs Vital signs: Vital Signs Temp 98.4 F 06/16/18 04:07 Pulse 76 06/16/18 04:07 Resp 16 06/16/18 04:07 BP 119/72 06/16/18 04:07 Pulse Ox 92 L 06/16/18 04:07 Intake & Output 06/15/18 06/16/18 06/16/18 18:59 06:59 18:59 Intake Total 770 980 Output Total 600 725 Balance 170 255 Weight 84.2 kg Intake: IV 170 980 Cefepime 2 gm In Sodium 50 Chloride 0.9% 50 ml @ 100 mls/hr IVPB Q8HR [facility] Rx# :[id number] Sodium Chloride 0.9% 1, 120 480 000 ml @ 20 mls/hr IV . Q24H [facility] Rx#:[id number] Vancomycin 1,750 mg In 500 Sodium Chloride 0.9% 500 ml @ 167 mls/hr IVPB Q12H [facility] Rx#:[id number] Oral 600 Output: Urine 600 725 Other: Voiding Method Urinal Urinal # Voids 1 # Bowel Movements 1 - Exam The patient does not appear in acute distress. Dressings are clean dry and intact. Incisions appear fine with no erythema or active drainage. Calf is soft and nontender. Knee immobilizer in place. Sensation and circulatory status is intact. - Labs CBC & Chem 7: 06/16/18 05:44 06/16/18 05:44 Labs: Abnormal Lab Results - Last 24 Hours (Table) 06/15/18 06/15/18 06/16/18 Range/Units 16:41 20:46 05:44 WBC (3.8-10.6) k/uL RBC (4.30-5.90) m/uL Hgb (13.0-17.5) gm/dL Hct (39.0-53.0) % Neutrophils # (1.3-7.7) k/uL Potassium 3.4 L (3.5-5.1) mmol/L BUN 30 H (9-20) mg/dL POC Glucose (mg/dL) 130 H 131 H (75-99) mg/dL Calcium 8.2 L (8.4-10.2) mg/dL 06/16/18 Range/Units 05:44 WBC 13.4 H (3.8-10.6) k/uL RBC 3.95 L (4.30-5.90) m/uL Hgb 12.7 L (13.0-17.5) gm/dL Hct 38.9 L (39.0-53.0) % Neutrophils # 10.7 H (1.3-7.7) k/uL Potassium (3.5-5.1) mmol/L BUN (9-20) mg/dL POC Glucose (mg/dL) (75-99) mg/dL Calcium (8.4-10.2) mg/dL Microbiology - Last 24 Hours (Table) 06/11/18 19:17 Anaerobic Culture - Final Shoulder - Left 06/11/18 19:17 Anaerobic Culture - Final Knee - Left 06/11/18 19:17 Gram Stain - Final Knee - Left Wound Culture - Final Methicillin resist S. aureus 06/11/18 12:57 Blood Culture Gram Stain - Final Blood Blood Culture - Final Methicillin resist S. aureus 06/11/18 13:39 Anaerobic Culture - Final Knee - Left 06/12/18 07:05 Blood Culture Gram Stain - Final Blood Blood Culture - Final Methicillin resist S. aureus 06/12/18 07:25 Blood Culture - Preliminary Blood No Growth after 72 hours Assessment and Plan (1) Septic arthritis of knee, left Current Visit: Yes Status: Acute Priority: Medium Code(s): M00.9 - PYOGENIC ARTHRITIS, UNSPECIFIED SNOMED Code(s): 253364034 (2) Status post left knee replacement Current Visit: Yes Status: Acute Code(s): Z96.652 - PRESENCE OF LEFT ARTIFICIAL KNEE JOINT SNOMED Code(s): 5448165076649 (3) Cellulitis of left upper extremity Current Visit: Yes Status: Acute Code(s): L03.114 - CELLULITIS OF LEFT UPPER LIMB SNOMED Code(s): 992554741 (4) Rheumatoid arthritis Current Visit: No Status: Chronic Code(s): M06.9 - RHEUMATOID ARTHRITIS, UNSPECIFIED SNOMED Code(s): 58806724 (5) Status post hardware removal Current Visit: Yes Status: Acute Code(s): Z98.890 - OTHER SPECIFIED POSTPROCEDURAL STATES SNOMED Code(s): 452875336 Plan: 1. Continue pain control 2. Anticoagulation with Lovenox per medical management 3. Continue physical therapy and ambulation 4. Will need PICC line placement. Will follow closely with infectious disease 5. Will continue to follow closely with internal medicine and pulmonary as well 6. Anticipate discharge to skilled rehab when medically stable.
[2018-06-16] MEDS ORDERED: LIDOCAINE 1% INJ 10MG/ML (20 ML MDV) SQ ONE (11:12)
--- NOTE | 2018-06-16 11:23 | P.PN ---
Subjective Progress Note Date: 06/16/18 Principal diagnosis: Acute left knee septic arthritis and septic shock This is a 73-year-old white male with history of rheumatoid arthritis for 25 years, normally on methotrexate, and sometimes on prednisone. History of left total knee arthroplasty about 15 years ago, patient presented yesterday to the ER complaining of sudden left knee swelling and pain. Patient was also noted to be febrile with a temp of 102.2, he was tachycardic, and he had significant leukocytosis with WBC count of 20.1. Aspiration of the left knee showed purulent drainage, patient was seen by orthopedics, his lactic acid was also elevated at 1.7. Patient was started on antibiotics in the form of cefepime and vancomycin for presumptive septic joint and sepsis, he was taken to the operating room, and underwent incision and drainage of the left knee with removal of the left knee components and insertion of antibiotic spacers. Patient was also evaluated for his left shoulder pain, incision of the left shoulder with culture and sensitivity was done. He was felt to have synovitis of the left shoulder without active infection. He had chronic left rotator cuff tear. Postsurgically, the patient was transferred to the intensive care unit on mechanical ventilation. Chest x-ray which I reviewed post surgery clearly showed evidence of congestive heart failure, patient was apparently given lots of fluids upon his initial presentation, I recommended diuretics, and I recommended norepinephrine to control his low blood pressure. When I saw him this morning, patient was still on mechanical ventilation, his hemodynamics are significantly improved, he is on a very small tiny dose of norepinephrine less than 8 g, being tapered down, his urine output was excellent, chest x-ray showed significant improvement, patient was given a short the pressure support and CPAP trial, and proceeded to extubating the patient. Extubation was well- tolerated. Reevaluated today on 06/13/2018, patient was extubated yesterday, tolerated the extubation quite well. Patient is in quite a bit of pain, mostly pain in the left shoulder, across the chest when he coughs, and complaining of pain in the left knee joint. Blood pressure is marginal, his chest x-ray showed evidence of congestive heart failure and worsening right-sided pleural effusion today. Hence I have recommended more diuretics to be given. Patient told me today that he is usually on prednisone at 30 mg daily maintenance for [place] of time. Hence I started the patient today on Solu-Cortef 100 mg IV push every 8 hours , patient will be receiving stress doses of hydrocortisone for the next 48 hours , and then we will likely switch him back to his usual dose of prednisone. Reviewed the chest x-ray, and felt the patient needs more diuresis. CBC showed improved leukocytosis. Basic metabolic profile is normal, renal profile is normal. Patient was reevaluated today on 06/14/2018, continues to tolerate the extubation well, and he feels much per her today, he is hemodynamically stable, not requiring any pressors. Remains on Solu-Cortef which I cut down to 50 mg IV push every 8 hours. Patient is denying any pain. His chest x-ray is showing improvement in his congestive heart failure and fluid overload. Remains on diuretics, he has excellent urine output. Even the pain in the left shoulder and the left knee seems to be better compared to baseline. I reviewed had a relatively normal basic metabolic profile and normal CBC. Chest x-ray was also reviewed. Patient was reevaluated on 07/12/2018, he is now on selective doing great, hemodynamically stable, relatively asymptomatic. Not requiring any pressors, remains on Solu-Cortef which I have changed to oral prednisone 30 mg normal dose that he usually takes for his rheumatoid arthritis. And the Solu-Cortef was discontinued. Cultures including blood cultures and joint fluid cultures came back positive for MRSA. Patient remains on antibiotics/vancomycin as per infectious disease on the case. He may eventually require a PICC line placement , and will need at least IV antibiotics were good 6 weeks. Labs today showed relatively normal CBC normal basic metabolic profile and the relatively normal renal profile. The patient is seen again today 06/16/2018 in follow-up on the selective care unit. He is currently awake and alert in no acute distress. He is resting quite comfortably in bed. He denies any shortness of breath, cough or congestion. Maintaining O2 saturations in the 90s on room air. Still febrile at 100.5. Blood pressure stable. Blood and wound cultures positive for MRSA. White count 13.4. Hemoglobin 12.7. Creatinine 0.87. He is maintained on vancomycin and cefepime. The plan is for PICC line placement today. Antibiotics per ID. Objective - Vital Signs Vital signs: Vital Signs Temp 100.5 F H 06/16/18 08:00 Pulse 100 06/16/18 08:34 Resp 16 06/16/18 08:00 BP 117/51 06/16/18 08:00 Pulse Ox 91 L 06/16/18 08:00 Intake & Output 06/15/18 06/16/18 06/16/18 18:59 06:59 18:59 Intake Total 770 980 Output Total 600 725 Balance 170 255 Weight 84.2 kg Intake: IV 170 980 Cefepime 2 gm In Sodium 50 Chloride 0.9% 50 ml @ 100 mls/hr IVPB Q8HR [facility] Rx# :[id number] Sodium Chloride 0.9% 1, 120 480 000 ml @ 20 mls/hr IV . Q24H [facility] Rx#:[id number] Vancomycin 1,750 mg In 500 Sodium Chloride 0.9% 500 ml @ 167 mls/hr IVPB Q12H [facility] Rx#:[id number] Oral 600 Output: Urine 600 725 Other: Voiding Method Urinal Urinal Urinal # Voids 1 # Bowel Movements 1 - Exam GENERAL EXAM: Alert, comfortable in no apparent distress. HEAD: Normocephalic. EYES: Normal reaction of pupils, equal size. NOSE: Clear with pink turbinates. THROAT: No erythema or exudates. NECK: No masses, no JVD. CHEST: No chest wall deformity. LUNGS: Crackles in the right lung base. CVS: S1 and S2 normal with no audible murmur, regular rhythm. ABDOMEN: No hepatosplenomegaly, normal bowel sounds, no guarding or rigidity. SPINE: No scoliosis or deformity SKIN: No rashes CENTRAL NERVOUS SYSTEM: No focal deficits, tone is normal in all 4 extremities. EXTREMITIES: Dressing to left shoulder drain intact. Left leg brace in place. There is trace peripheral edema. No clubbing, no cyanosis. Peripheral pulses are intact. - Labs CBC & Chem 7: 06/16/18 05:44 06/16/18 05:44 Labs: Abnormal Lab Results - Last 24 Hours (Table) 06/15/18 06/15/18 06/16/18 Range/Units 16:41 20:46 05:44 WBC (3.8-10.6) k/uL RBC (4.30-5.90) m/uL Hgb (13.0-17.5) gm/dL Hct (39.0-53.0) % Neutrophils # (1.3-7.7) k/uL Potassium 3.4 L (3.5-5.1) mmol/L BUN 30 H (9-20) mg/dL POC Glucose (mg/dL) 130 H 131 H (75-99) mg/dL Calcium 8.2 L (8.4-10.2) mg/dL 06/16/18 Range/Units 05:44 WBC 13.4 H (3.8-10.6) k/uL RBC 3.95 L (4.30-5.90) m/uL Hgb 12.7 L (13.0-17.5) gm/dL Hct 38.9 L (39.0-53.0) % Neutrophils # 10.7 H (1.3-7.7) k/uL Potassium (3.5-5.1) mmol/L BUN (9-20) mg/dL POC Glucose (mg/dL) (75-99) mg/dL Calcium (8.4-10.2) mg/dL Microbiology - Last 24 Hours (Table) 06/12/18 07:25 Blood Culture - Preliminary Blood No Growth after 96 hours 06/11/18 19:17 Anaerobic Culture - Final Shoulder - Left 06/11/18 19:17 Anaerobic Culture - Final Knee - Left 06/11/18 19:17 Gram Stain - Final Knee - Left Wound Culture - Final Methicillin resist S. aureus 06/11/18 12:57 Blood Culture Gram Stain - Final Blood Blood Culture - Final Methicillin resist S. aureus 06/11/18 13:39 Anaerobic Culture - Final Knee - Left 06/12/18 07:05 Blood Culture Gram Stain - Final Blood Blood Culture - Final Methicillin resist S. aureus Assessment and Plan Assessment: Impression: 1 acute left knee septic arthritis, and left shoulder synovitis. 2 acute sepsis and septic shock with MRSA bacteremia, patient did not respond to fluid boluses, and required norepinephrine overnight after surgery. 3 postoperative respiratory failure, unexpected, most likely secondary to sepsis , septic shock, and interstitial edema with pleural effusion and fluid overload as noted on the chest x-ray upon arrival to the ICU. 4 suspected diastolic congestive heart failure, hence the patient will need more diuresis today. This could very well be related to the significant fluids the patient received upon presentation when he was initially seen with sepsis and septic shock. 4 multiple comorbidities including rheumatoid arthritis, coronary artery disease , possible COPD, Recommendation: The patient was seen and evaluated by Dr. Tesfaye. Chest x-ray and labs reviewed. He is currently stable from the pulmonary and critical care standpoint. He is continued on vancomycin and cefepime. Plan is for PICC line placement today. Continue diuretics. We will see the patient on as-needed basis. I, the cosigning physician, performed a history & physical examination of the patient. Lungs sounds with crackles in the right posterior base. Maintaining good O2 saturations in the 90s on room air. I discussed the assessment and plan of care with my nurse practitioner, Yvette Palacios. I attest to the above note as dictated by her.
[2018-06-16 11:37] LABS: Glucose,Whole Blood 100 mg/dL (75-99)
[2018-06-16] MEDS: POTASSIUM CHLORIDE ER 20 MEQ TAB.ER PO SCH ×2 (12:13→15:25)
[2018-06-16] MEDS: ENOXAPARIN 40 MG/0.4 ML SYRINGE SQ SCH (12:13)
--- NOTE | 2018-06-16 12:15 | P.PN ---
Subjective Progress Note Date: 06/16/18 This is a 73-year-old patient of Dr. Montemayor. Patient presented to the emergency room with complaint of left knee pain. Patient also states he's been having fevers and chills at home. Patient has a known past medical history of rheumatoid arthritis in which she follows with senior behavioral scientist and was on methotrexate. Additional medical history includes coronary artery disease, COPD , GERD, pneumonia and pancreatitis multiple episodes. Chest x-ray completed emergency room showing right-sided pleural effusion. Underlying infiltrate is not excluded. EKG completed showing sinus tachycardia. Dr. Fisher per orthopedic services consulted. Patient had joint aspiration that was done in ER with purulent drainage from the left knee. Patient is also complaining of left shoulder pain in his status post left rotator cuff repair. Patient is scheduled for a [address] Fisher. White blood count 20.1. Blood culture and wound cultures have been received. Lactic acid 1.7. Patient febrile with a temp of 102.2. Infectious disease has been consulted. Vancomycin IV antibiotic ordered. UA negative. Patient denies chest pain or shortness of breath. Does complain of pain and left knee. Patient denies any nausea vomiting or diarrhea. Patient denies any urinary burning or frequency On 06/12/2018 patient is currently on mechanical ventilation in the intensive care unit. Patient underwent an incision and drainage of the left shoulder and an incision and drainage of the left knee with hardware removal and antibiotic spacer placement yesterday with Dr. Fisher. Patient came back from surgery on the ventilator. At this time patient is requiring Levophed for pressure support. Dr. Paul is following for infectious disease. Dr. Samuel is on for critical care management and pulmonary support. Possible attempt for weaning and Patient today. On 06/13/2018 patient has been successfully extubated yesterday. Patient is currently on a small amount of legal bed for pressure support. Patient currently on 5 L nasal cannula. At this time patient states that pain is adequately controlled. Patient denies chest pain or shortness breath. Patient denies nausea vomiting or diarrhea. Patient denies any urinary burning or frequency. On 06/14/2018 patient was seen and examined in ICU he is doing well he is alert and oriented 3 maintained on oxygen via nasal cannula and is scheduled to be transferred out of ICU today he is complaining of pain in the left shoulder and the left leg otherwise he denies any complaints there is no fever or chills no headache or dizziness no chest pain no shortness of breath no cough no nausea or vomiting no abdominal pain no diarrhea no blood in stools no urinary symptoms On 06/15/2018 patient is currently alert and oriented 3 resting comfortably in bed. Patient is no longer in intensive care unit. Patient is currently on room air. Patient states he is feeling much improved. At this time patient denies chest pain or shortness of breath. Patient denies nausea vomiting or diarrhea. Patient denies any urinary burning or frequency. Dressing to left shoulder and left leg clean dry and intact. On 06/16/2018 patient is currently alert and oriented 3 in good spirits resting comfortably in bed. Patient did have a fever of 100.5 last night patient remains on antibiotics. Patient to get PICC line daily for long-term antibiotic outpatient. This time patient denies chest pain or shortness breath. Patient denies nausea vomiting or diarrhea. Patient denies any urinary burning or frequency. Objective - Vital Signs Vital signs: Vital Signs Temp 100.5 F H 06/16/18 08:00 Pulse 88 06/16/18 12:03 Resp 16 06/16/18 08:00 BP 117/51 06/16/18 08:00 Pulse Ox 91 L 06/16/18 08:00 Intake & Output 06/15/18 06/16/18 06/16/18 18:59 06:59 18:59 Intake Total 770 980 Output Total 600 725 Balance 170 255 Weight 84.2 kg Intake: IV 170 980 Cefepime 2 gm In Sodium 50 Chloride 0.9% 50 ml @ 100 mls/hr IVPB Q8HR [facility] Rx# :[id number] Sodium Chloride 0.9% 1, 120 480 000 ml @ 20 mls/hr IV . Q24H [facility] Rx#:[id number] Vancomycin 1,750 mg In 500 Sodium Chloride 0.9% 500 ml @ 167 mls/hr IVPB Q12H [facility] Rx#:[id number] Oral 600 Output: Urine 600 725 Other: Voiding Method Urinal Urinal Urinal # Voids 1 # Bowel Movements 1 - Exam Head normocephalic Neck supple Lungs minutes bilaterally Heart regular rate and rhythm S1-S2, no rub or gallop Abdomen is soft nontender nondistended positive bowel sounds no hepatosplenomegaly Extremities no edema. Left shoulder dressing clean dry and intact. Left leg brace in place dressing clean dry and intact Neuro patient currently on sedation - Labs CBC & Chem 7: 06/16/18 05:44 06/16/18 05:44 Labs: Abnormal Lab Results - Last 24 Hours (Table) 06/15/18 06/15/18 06/16/18 Range/Units 16:41 20:46 05:44 WBC (3.8-10.6) k/uL RBC (4.30-5.90) m/uL Hgb (13.0-17.5) gm/dL Hct (39.0-53.0) % Neutrophils # (1.3-7.7) k/uL Potassium 3.4 L (3.5-5.1) mmol/L BUN 30 H (9-20) mg/dL POC Glucose (mg/dL) 130 H 131 H (75-99) mg/dL Calcium 8.2 L (8.4-10.2) mg/dL 06/16/18 06/16/18 Range/Units 05:44 11:34 WBC 13.4 H (3.8-10.6) k/uL RBC 3.95 L (4.30-5.90) m/uL Hgb 12.7 L (13.0-17.5) gm/dL Hct 38.9 L (39.0-53.0) % Neutrophils # 10.7 H (1.3-7.7) k/uL Potassium (3.5-5.1) mmol/L BUN (9-20) mg/dL POC Glucose (mg/dL) 100 H (75-99) mg/dL Calcium (8.4-10.2) mg/dL Microbiology - Last 24 Hours (Table) 06/12/18 07:25 Blood Culture - Preliminary Blood No Growth after 96 hours 06/11/18 19:17 Anaerobic Culture - Final Shoulder - Left 06/11/18 19:17 Anaerobic Culture - Final Knee - Left 06/11/18 19:17 Gram Stain - Final Knee - Left Wound Culture - Final Methicillin resist S. aureus 06/11/18 12:57 Blood Culture Gram Stain - Final Blood Blood Culture - Final Methicillin resist S. aureus 06/11/18 13:39 Anaerobic Culture - Final Knee - Left 06/12/18 07:05 Blood Culture Gram Stain - Final Blood Blood Culture - Final Methicillin resist S. aureus Assessment and Plan Assessment: 1. Sepsis secondary to left knee septic arthroplasty. White blood cell 20.2. Wound and blood cultures have been ordered. Joint aspiration performed emergency room. Infectious disease has been consulted. Continue vancomycin per infectious disease. Patient febrile with temp of 102.2. Plan for I&D of left knee today with Dr. Fisher. On 06/11 patient underwent incision changes of the left shoulder incision and drainage of the left knee with hardware removal and antibiotic spacer placement with Dr. Fisher. White blood cell remains 20.1. Patient febrile last night with temp 102.3. Dr. Paul following for infectious disease. Patient currently on vancomycin and Maxipime. Awaiting blood and wound cultures. Wound and blood cultures growing presumtive MRSA. Patient will most likely need PICC line with long-term antibiotics post discharge. We'll evaluate for PICC line placement once patient was out of intensive care unit. Patient remains on Vanco and cefepime. Order for PICC line in place. Per Dr. Paul patient will require at least 6 weeks of IV antibiotic therapy for complex infection. Patient to get PICC line today. 2 Postoperative Acute respiratory failure requiring mechanical ventilation, unexpected, most likely secondary to sepsis, septic shock and interstitial edema with pleural effusion fluid overload. Patient currently on mechanical ventilation. Patient being followed by Dr. Samuel for Pulmonary and critical care. Chest x-ray completed showing small right greater than left pleural effusion with adjacent atelectasis and/or consolidation likely interval improvement on the right. Possible background CHF. Questionable nodule density at the left midlung not seen previously may be summation artifact. Patient has been successfully extubated 5 L nasal cannula. Solu-Cortef 100 mg IV push every 8 hours has been added per pulmonary. Patient currently on Lasix 40 mg every 12 hours per pulmonary. patient has been switched over to oral prednisone per pulmonary. 3. History of pancreatitis 4. History of coronary artery disease 5. History of rheumatoid arthritis. Patient was on methotrexate and followed by senior behavioral scientist. Methotrexate currently on hold due to infection 6. History of GERD 7. History of heart catheterization or stent in November 2016. Lipitor and aspirin ordered. 8. Tachycardia. EKG showing sinus tachycardia likely related to febrile state. Resolved 9. Hypotension likely secondary to sepsis. Resolved GI prophylaxis Pepcid and DVT prophylaxis Lovenox Social work has been consulted for possible ECF placement for antibiotic administration I performed an examination of the patient and discussed their management with the Nurse Practitioner. I have reviewed the Nurse Practitioner's notes and agree with the documented findings and plan of care
--- NOTE | 2018-06-16 14:08 | IR ---
EXAMINATION TYPE: IR cvc insert >=5 years DATE OF EXAM: 06/16/2018 COMPARISON: NONE CLINICAL HISTORY: Infection Needs long-term intravenous access for antibiotics. PROCEDURE: After informed consent, the skin overlying the left basilic vein was localized with ultrasound and no macarena to be compressible and patent. An ultrasound image was obtained and submitted on the patient's c craig. The overlying skin was prepped and draped and Lidocaine was used for local anesthesia. A skin venkata was made with a scalpel. Access was gained to the vein under ultrasound guidance with a 21 gau ge needle and a 0.018 inch wire was advanced. Access site was dilated with Peel-Away sheath and cath eter tailored to the appropriate length and advanced such that the distal tip is at the cavoatrial ju nction. Spot image was obtained verifying placement. Catheter was fixed to the skin and a sterile d ressing was placed following hemostasis. Catheter was aspirated and flushed with saline. Patient wa s discharged in stable condition without complication. Maximal barrier technique is utilized. Ultras ound image is documented on the chart. Ultrasound used with sterile technique. Fluoro time and fluoroscopic images submitted to document procedure: 181 intraoperative C-arm images, 0.4 minutes fluoroscopy time IMPRESSION: STATUS POST ULTRASOUND AND FLUOROSCOPIC GUIDED PICC LINE PLACEMENT, READY FOR USE. THIS PROCEDURE WAS PERFORMED BY THE UNDERSIGNED.
[2018-06-16 16:32] LABS: Glucose,Whole Blood 173 mg/dL (75-99)
[2018-06-16 20:41] LABS: Glucose,Whole Blood 120 mg/dL (75-99)
[2018-06-16] MEDS: ATORVASTATIN 40 MG TAB PO SCH (20:59)
[2018-06-16] MEDS: SODIUM CHLORIDE 0.9% 1,000 ML IV SCH (23:12)
[2018-06-17] MEDS: CEFEPIME 2 GM in SODIUM CHLORIDE 0.9% 50 ML IVPB SCH ×2 (00:19→07:38)
[2018-06-17] MEDS: oxyCODONE-APAP 10-325MG 1 EACH TAB PO PRN ×3 (00:19→12:59)
[2018-06-17] MEDS: HYDROmorphone 1 MG/ML 1 ML SYRINGE IVP PRN ×5 (00:20→13:04)
[2018-06-17] MEDS ORDERED: VANCOMYCIN TROUGH DUE 1 EACH MISC MISCELLANE ONE (05:00)
[2018-06-17 06:01] LABS: Basophils # (A) 0.1 k/uL (0-0.2); Basophils % (A) 0 %; Eosinophils # (A) 0.1 k/uL (0-0.7); Eosinophils % (A) 1 %; HCT 35.5 % (39.0-53.0); HGB 11.6 gm/dL (13.0-17.5); Lymphocytes % (A) 11 %; MCH 32.1 pg (25.0-35.0); MCHC 32.6 g/dL (31.0-37.0); MCV 98.5 fL (80.0-100.0); Mean Platelet Volume 7.6; Monocytes # (A) 0.5 k/uL (0-1.0); Monocytes % (A) 3 %; Neutrophils # (A) 14.7 k/uL (1.3-7.7); Neutrophils % (A) 84 %; Platelet Count 312 k/uL (150-450); RDW 14.1 % (11.5-15.5); WBC 17.5 k/uL (3.8-10.6)
[2018-06-17 06:13] LABS: ALT 38 U/L (21-72); AST 27 U/L (17-59); Albumin 2.5 g/dL (3.5-5.0); Alkaline Phosphatase 85 U/L (38-126); Anion Gap 6 mmol/L; Blood Urea Nitrogen 30 mg/dL (9-20); Calcium 7.9 mg/dL (8.4-10.2); Carbon Dioxide 30 mmol/L (22-30); Chloride 105 mmol/L (98-107); Glucose 105 mg/dL (74-99); Potassium 3.4 mmol/L (3.5-5.1); Sodium 141 mmol/L (137-145); Total Bilirubin 0.6 mg/dL (0.2-1.3); Total Protein 4.9 g/dL (6.3-8.2)
[2018-06-17] MEDS: VANCOMYCIN 1,750 MG in SODIUM CHLORIDE 0.9% 500 ML IVPB SCH (06:27)
[2018-06-17] MEDS: ENOXAPARIN 40 MG/0.4 ML SYRINGE SQ SCH (07:34)
[2018-06-17] MEDS: FUROSEMIDE 10 MG/ML 4 ML VIAL IV SCH (07:34)
[2018-06-17] MEDS: ASPIRIN 81 MG PO SCH (07:34)
[2018-06-17] MEDS: predniSONE 10 MG TAB PO SCH (07:35)
[2018-06-17] MEDS: FOLIC ACID 1 MG TAB PO SCH (07:35)
[2018-06-17] MEDS: FAMOTIDINE 20 MG TAB PO SCH (07:35)
--- NOTE | 2018-06-17 08:16 | P.PN ---
Subjective Progress Note Date: 06/17/18 Principal diagnosis: Status post left knee hardware removal and antibiotic spacer placement and left shoulder I&D This is a 73 year-old male post left knee hardware removal and antibiotic spacer placement and left shoulder I&D. This is post-op day 6. The patient was evaluated at the bedside today. His pain appears to be controlled at this time. The patient has been up with physical therapy. He is currently receiving cefepime and vancomycin per infectious disease. His white count has increased to 17.5 today but he has remained afebrile. PICC line was placed yesterday. We are awaiting skilled rehab placement. Objective - Vital Signs Vital signs: Vital Signs Temp 98.4 F 06/17/18 07:48 Pulse 66 06/17/18 07:48 Resp 18 06/17/18 07:48 BP 134/77 06/17/18 07:48 Pulse Ox 93 L 06/17/18 07:48 Intake & Output 06/16/18 06/17/18 06/17/18 18:59 06:59 18:59 Intake Total 740 500 Output Total 550 Balance 740 -50 Weight 86.5 kg Intake: IV 500 500 Vancomycin 1,750 mg In 500 500 Sodium Chloride 0.9% 500 ml @ 167 mls/hr IVPB Q12H [facility] Rx#:[id number] Oral 240 Output: Urine 550 Other: Voiding Method Urinal Urinal - Exam The patient does not appear in acute distress. Dressings are clean dry and intact. Incisions appear fine with no erythema or active drainage. Calf is soft and nontender. Knee immobilizer in place. Sensation and circulatory status is intact. - Labs CBC & Chem 7: 06/17/18 05:35 06/17/18 05:35 Labs: Abnormal Lab Results - Last 24 Hours (Table) 06/16/18 06/16/18 06/16/18 Range/Units 11:34 16:30 20:39 WBC (3.8-10.6) k/uL RBC (4.30-5.90) m/uL Hgb (13.0-17.5) gm/dL Hct (39.0-53.0) % Neutrophils # (1.3-7.7) k/uL Potassium (3.5-5.1) mmol/L BUN (9-20) mg/dL Glucose (74-99) mg/dL POC Glucose (mg/dL) 100 H 173 H 120 H (75-99) mg/dL Calcium (8.4-10.2) mg/dL Total Protein (6.3-8.2) g/dL Albumin (3.5-5.0) g/dL 06/17/18 06/17/18 Range/Units 05:35 05:35 WBC 17.5 H (3.8-10.6) k/uL RBC 3.60 L (4.30-5.90) m/uL Hgb 11.6 L (13.0-17.5) gm/dL Hct 35.5 L (39.0-53.0) % Neutrophils # 14.7 H (1.3-7.7) k/uL Potassium 3.4 L (3.5-5.1) mmol/L BUN 30 H (9-20) mg/dL Glucose 105 H (74-99) mg/dL POC Glucose (mg/dL) (75-99) mg/dL Calcium 7.9 L (8.4-10.2) mg/dL Total Protein 4.9 L (6.3-8.2) g/dL Albumin 2.5 L (3.5-5.0) g/dL Microbiology - Last 24 Hours (Table) 06/12/18 07:25 Blood Culture - Preliminary Blood No Growth after 96 hours Assessment and Plan (1) Septic arthritis of knee, left Current Visit: Yes Status: Acute Priority: Medium Code(s): M00.9 - PYOGENIC ARTHRITIS, UNSPECIFIED SNOMED Code(s): 237466529 (2) Status post left knee replacement Current Visit: Yes Status: Acute Code(s): Z96.652 - PRESENCE OF LEFT ARTIFICIAL KNEE JOINT SNOMED Code(s): 0655587400093 (3) Cellulitis of left upper extremity Current Visit: Yes Status: Acute Code(s): L03.114 - CELLULITIS OF LEFT UPPER LIMB SNOMED Code(s): 774663652 (4) Rheumatoid arthritis Current Visit: No Status: Chronic Code(s): M06.9 - RHEUMATOID ARTHRITIS, UNSPECIFIED SNOMED Code(s): 49154532 (5) Status post hardware removal Current Visit: Yes Status: Acute Code(s): Z98.890 - OTHER SPECIFIED POSTPROCEDURAL STATES SNOMED Code(s): 950487639 Plan: 1. Continue pain control, still receiving Dilaudid. Will add Ultram to alternate with Percocet and attempt to wean Dilaudid. 2. Anticoagulation with Lovenox per medical management 3. Continue physical therapy and ambulation. Non-weightbearing left leg. Continue knee Immobilizer 4. IV antibiotics for at least [address] Paul. PICC line in place 5. Will continue to follow closely with internal medicine and pulmonary as well 6. Anticipate discharge to skilled rehab soon. Orthopedically stable for discharge from our standpoint.
[2018-06-17] MEDS: IPRATROPIUM-ALBUTEROL 3 ML NEB INHALATION SCH ×2 (08:18→11:52)
[2018-06-17] MEDS ORDERED: traMADol 50 MG TAB PO PRN ×2 (08:29)
[2018-06-17] MEDS: LACTATED RINGERS 1,000 ML IV SCH (10:33)
[2018-06-17 10:40] VITALS: BP 120/64; RESP 20; TEMP 98.3
--- NOTE | 2018-06-17 11:29 | P.DS ---
Providers Date of admission: 06/11/18 14:21 Expected date of discharge: 06/17/18 Attending physician: Abad Vaca Consults: 06/11/18 13:55 Consult Physician Stat Consulting Provider: Fletcher Paul Consult Reason/Comments: septic joint Do you want consulting provider notified?: Yes Consult Physician Stat Consulting Provider: Tony Fisher Consult Reason/Comments: septic joint Do you want consulting provider notified?: Already Contacted 06/11/18 16:11 Consult Physician Routine Consulting Provider: Gonzalez Samuel Consult Reason/Comments: chest xray result Do you want consulting provider notified?: Yes 06/11/18 18:38 Consult Physician Stat Consulting Provider: Gonzalez Samuel Consult Reason/Comments: ICU Management Do you want consulting provider notified?: Yes Primary care physician: Ruthy Montemayor Hospital Course: Discharge diagnosis 1. Sepsis secondary to left knee septic arthroplasty. White blood cell 20.2. Wound and blood cultures have been ordered. Joint aspiration performed emergency room. Infectious disease has been consulted. Continue vancomycin per infectious disease. Patient febrile with temp of 102.2. Plan for I&D of left knee today with Dr. Fisher. On 06/11 patient underwent incision changes of the left shoulder incision and drainage of the left knee with hardware removal and antibiotic spacer placement with Dr. Fisher. White blood cell remains 20.1. Patient febrile last night with temp 102.3. Dr. Paul following for infectious disease. Patient currently on vancomycin and Maxipime. Awaiting blood and wound cultures. Wound and blood cultures growing presumtive MRSA. Patient will most likely need PICC line with long-term antibiotics post discharge. We'll evaluate for PICC line placement once patient was out of intensive care unit. Patient remains on Vanco and cefepime. Order for PICC line in place. Per Dr. Paul patient will require at least 6 weeks of IV antibiotic therapy for complex infection. Patient to get PICC line today. Patient received PICC line. Discussed case with PRE[employer] MECH[employer]IC with Dr. Paul for infectious disease. Patient has been cleared for discharge from infectious disease standpoint. Patient will be discharged to [facility] on vancomycin 2 Postoperative Acute respiratory failure requiring mechanical ventilation, unexpected, most likely secondary to sepsis, septic shock and interstitial edema with pleural effusion fluid overload. Patient currently on mechanical ventilation. Patient being followed by Dr. Jimmie for Pulmonary and critical care. Chest x-ray completed showing small right greater than left pleural effusion with adjacent atelectasis and/or consolidation likely interval improvement on the right. Possible background CHF. Questionable nodule density at the left midlung not seen previously may be summation artifact. Patient has been successfully extubated 5 L nasal cannula. Solu-Cortef 100 mg IV push every 8 hours has been added per pulmonary. Patient currently on Lasix 40 mg every 12 hours per pulmonary. patient has been switched over to oral prednisone per pulmonary. Prednisone taper has been ordered. patient will be discharged home on Lasix 40 mg daily per pulmonary. Patient has been cleared for discharge from pulmonary standpoint 3. History of pancreatitis 4. History of coronary artery disease 5. History of rheumatoid arthritis. 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 Methotrexate currently on hold due to infection 6. History of GERD 7. History of heart catheterization or stent in November 2016. Lipitor and aspirin ordered. 8. Tachycardia. EKG showing sinus tachycardia likely related to febrile state. Resolved 9. Hypotension likely secondary to sepsis. Resolved Hospital course This is a 73-year-old patient of Dr. Montemayor. Patient presented to the emergency room with complaint of left knee pain. Patient also states he's been having fevers and chills at home. Patient has a known past medical history of rheumatoid arthritis in which she follows with film flat inspector and was on methotrexate. Additional medical history includes coronary artery disease, COPD , GERD, pneumonia and pancreatitis multiple episodes. Chest x-ray completed emergency room showing right-sided pleural effusion. Underlying infiltrate is not excluded. EKG completed showing sinus tachycardia. Dr. Fisher per orthopedic services consulted. Patient had joint aspiration that was done in ER with purulent drainage from the left knee. Patient is also complaining of left shoulder pain in his status post left rotator cuff repair. Patient is scheduled for a [address] Fisher. White blood count 20.1. Blood culture and wound cultures have been received. Lactic acid 1.7. Patient febrile with a temp of 102.2. Infectious disease has been consulted. Vancomycin IV antibiotic ordered. UA negative. Patient denies chest pain or shortness of breath. Does complain of pain and left knee. Patient denies any nausea vomiting or diarrhea. Patient denies any urinary burning or frequency On 06/12/2018 patient is currently on mechanical ventilation in the intensive care unit. Patient underwent an incision and drainage of the left shoulder and an incision and drainage of the left knee with hardware removal and antibiotic spacer placement yesterday with Dr. Fisher. Patient came back from surgery on the ventilator. At this time patient is requiring Levophed for pressure support. Dr. Paul is following for infectious disease. Dr. Samuel is on for critical care management and pulmonary support. Possible attempt for weaning and Patient today. On 06/13/2018 patient has been successfully extubated yesterday. Patient is currently on a small amount of legal bed for pressure support. Patient currently on 5 L nasal cannula. At this time patient states that pain is adequately controlled. Patient denies chest pain or shortness breath. Patient denies nausea vomiting or diarrhea. Patient denies any urinary burning or frequency. On 06/14/2018 patient was seen and examined in ICU he is doing well he is alert and oriented 3 maintained on oxygen via nasal cannula and is scheduled to be transferred out of ICU today he is complaining of pain in the left shoulder and the left leg otherwise he denies any complaints there is no fever or chills no headache or dizziness no chest pain no shortness of breath no cough no nausea or vomiting no abdominal pain no diarrhea no blood in stools no urinary symptoms On 06/15/2018 patient is currently alert and oriented 3 resting comfortably in bed. Patient is no longer in intensive care unit. Patient is currently on room air. Patient states he is feeling much improved. At this time patient denies chest pain or shortness of breath. Patient denies nausea vomiting or diarrhea. Patient denies any urinary burning or frequency. Dressing to left shoulder and left leg clean dry and intact. On 06/16/2018 patient is currently alert and oriented 3 in good spirits resting comfortably in bed. Patient did have a fever of 100.5 last night patient remains on antibiotics. Patient to get PICC line daily for long-term antibiotic outpatient. This time patient denies chest pain or shortness breath. Patient denies nausea vomiting or diarrhea. Patient denies any urinary burning or frequency. On 06/17/2018 patient has been cleared for discharge from consulting providers. Discussed case with Roselia FINNEY with infectious disease. Made aware that with blood cell did increase to 17.5. She will be discharged to [facility] with PICC line and vancomycin for antibiotics. At this time patient denies chest pain or shortness of breath. Denies any nausea vomiting or diarrhea. Patient denies any urinary burning or frequency. I performed an examination of the patient and discussed their management with the Nurse Practitioner. I have reviewed the Nurse Practitioner's notes and agree with the documented findings and plan of care Patient Condition at Discharge: Stable Plan - Discharge Summary Discharge Rx Participant: Yes New Discharge Prescriptions: New Vancomycin 1,750 mg IVPB Q12H #168 vial Atorvastatin [Lipitor] 40 mg PO HS tab Ipratropium-Albuterol Nebulize [Duoneb 0.5 mg-3 mg/3 ml Soln] 3 ml INHALATION RT-QID ampul.neb Ipratropium-Albuterol Nebulize [Duoneb 0.5 mg-3 mg/3 ml Soln] 3 ml INHALATION RT-Q2H PRN ampul.neb PRN Reason: Shortness Of Breath Or Wheezing Aspirin 81 mg PO DAILY chew Famotidine [Pepcid] 20 mg PO DAILY tab predniSONE 10 mg PO DIRECTED #18 tab Continue Folic Acid 1 mg PO DAILY predniSONE 30 mg PO TID oxyCODONE HCL/ACETAMINOPHEN [Percocet 10-325 mg] 2 tab PO Q6H PRN 3 Days #24 tablet PRN Reason: Pain Discontinued Methotrexate Inject 25mg/Ml 1 dose IM FR Discharge Medication List Folic Acid 1 mg PO DAILY 01/12/18 [History] predniSONE 30 mg PO TID 06/13/18 [History] Aspirin 81 mg PO DAILY chew 06/17/18 [Rx] Atorvastatin [Lipitor] 40 mg PO HS tab 06/17/18 [Rx] Famotidine [Pepcid] 20 mg PO DAILY tab 06/17/18 [Rx] Ipratropium-Albuterol Nebulize [Duoneb 0.5 mg-3 mg/3 ml Soln] 3 ml INHALATION RT -Q2H PRN ampul.neb 06/17/18 [Rx] Ipratropium-Albuterol Nebulize [Duoneb 0.5 mg-3 mg/3 ml Soln] 3 ml INHALATION RT -QID ampul.neb 06/17/18 [Rx] Vancomycin 1,750 mg IVPB Q12H #168 vial 06/17/18 [Rx] oxyCODONE HCL/ACETAMINOPHEN [Percocet 10-325 mg] 2 tab PO Q6H PRN 3 Days #24 tablet 06/17/18 [Rx] predniSONE 10 mg PO DIRECTED #18 tab 06/17/18 [Rx] Follow up Appointment(s)/Referral(s): Gonzalez Samuel MD [STAFF PHYSICIAN] - 1 Week Tony Fisher DO [Doctor of Osteopathic Medicine] - 2 Weeks Fletcher Paul MD [STAFF PHYSICIAN] - 3 Weeks Ruthy Montemayor DO [Primary Care Provider] - 1-2 days (Follow up after being discharged from rehab facility.) Ambulatory/Diagnostic Orders: Basic Metabolic Panel [LAB.AMB] Location: None Selected Complete Blood Count w/diff [LAB.AMB] Location: None Selected C Reactive Protein [LAB.AMB] Location: None Selected Erythrocyte Sedimentation Rate [LAB.AMB] Location: None Selected Vancomycin,Trough [LAB.AMB] Location: None Selected Patient Instructions/Handouts: Septic Arthritis (DC), Complications of Infection (GEN), Peripherally Inserted Central Catheters and Midline Catheters ( DC) Activity/Diet/Wound Care/Special Instructions: ECF on D/C Daily dressing changes to the left shoulder and left knee Knee immobilizer at all times except for bathing and dressing changes Elevate and ice knee as needed May shower with knee incision covered. May shower over shoulder incision without covering. Antibiotics per Dr. Paul. Follow up with Dr. Fisher in 2 weeks for x-rays and staple removal. Call [facility] with any questions or concerns, . Discharge Disposition: TRANSFER TO SNF/ECF
[2018-06-17 12:03] VITALS: PULSE 76
[2018-06-17] MEDS: POTASSIUM CHLORIDE ER 20 MEQ TAB.ER PO SCH (12:29)
--- NOTE | 2018-06-17 12:37 | CDI ---
Last Revision, September 2017 Acute diastolic congestive heart failure Documentation Clarification Form Date: 06/17/2018 12:28:11 PM From: Gail Meléndez CCS, CCDS Admit Date: 06/11/2018 2:21:00 PM Patient Name: Fletcher Sanabria Visit Number: [id number] Discharge Date: ATTENTION: The Clinical Documentation Specialists (CDI) and [facility] Coding Staff appreciate your assistance in clarifying documentation. Please respond to the clarification below the line at the bottom and electronically sign. The CDI & [facility] Coding staff will review the response and follow-up if needed. Please note: Queries are made part of the Legal Health Record. If you have any questions, please contact the author of this message via ITS. Abad Griffith MD: History/Risk Factors: RA, multiple orthopedic surgeries including total left knee. Clinical Indicators: Patient presented to ER with left knee pain, fevers & chills. VS: T 102.2, P 114, R 20, BP 119/59, PO 94 2Lnc Echocardiogram Results: EF 55-60%, systolic wnl, Mild MR & TR Chest X Ray 06/11: Right side pleural effusion. Repeat 06/11: Probable CHF, increased right pleural effusion. 06/12: Small rt > lt pleural effusions w/ atelectasis and/or consolidation. Possible background of CHF. 06/13 Worsening aeration right lung. Correlate for CHF. 06/16: Improving right pleural effusion. Treatment: IV Vanco, IV Cefepime, IV fluid, IV fl 150, IV Fentanyl, IV Kefzol, IV Lasix, IV Pressors, O2 2-5L nc. In your professional opinion, can you please clarify the acuity and type of CHF if known? Systolic Heart Failure: o Acute o Chronic o Acute on Chronic Diastolic Heart Failure: o Acute o Chronic o Acute on Chronic Systolic & Diastolic Heart Failure: o Acute o Chronic o Acute on Chronic Heart Failure Unable to Determine Other, please specify CHF ruled out MTDD
--- NOTE | 2018-06-17 12:50 | CDI ---
Last Revision, September 2017 Postoperative resting right failure, unexpected, mostly likely secondary to sepsis, septic shock, and interstitial edema with pleural effusion fluid overload is noted on the chest x-ray upon arrival to the ICU Documentation Clarification Form Date: 06/17/2018 12:39:32 PM From: Gail Meléndez CCS, CCDS Admit Date: 06/11/2018 2:21:00 PM Patient Name: Fletcher Sanabria Visit Number: [id number] Discharge Date: ATTENTION: The Clinical Documentation Specialists (CDI) and [facility] Coding Staff appreciate your assistance in clarifying documentation. Please respond to the clarification below the line at the bottom and electronically sign. The CDI & [facility] Coding staff will review the response and follow-up if needed. Please note: Queries are made part of the Legal Health Record. If you have any questions, please contact the author of this message via ITS. Abad Griffith MD: Patient is admitted with septic left knee status post I&D & removal of prosthetic knee joints with placement of antibiotic spacer. Per the progress notes & pulmonary consult: Postoperative Acute respiratory failure requiring mechanical ventilation, unexpected, most likely secondary to sepsis, septic shock and interstitial edema with pleural effusionfluid overload. History/Risk Factors: Left Total left knee, RA, CAD, COPD. Former smoker. Clinical Indicators: Postoperative vital signs: T 97.5, P 106, R 32 on vent, BP 142/76, PO 97 on 40% vent. ABG/CBG: pH 7.28*, pCO2 51^, pHCO3 24, Total CO2 25^, O2 Sat 93.4* Treatment: Vent <24 hrs, IV antibiotics, IV [place], IV Norepinephrine, IV Lasix, O2 2-6Lnc, neb txs. In your professional opinion, can you please clarify if these findings signify one of the following conditions? Acute Postoperative Respiratory Failure, further specify: Respiratory Failure, further specify (if known): With hypercapnia? With hypoxia? Other Diagnosis, please specify Unable to determine MTDD
== END 2018-06-17 13:23 | DRG 463 ==
LOC: EC 12:23 → 6SEL 14:21 → 6ICU 19:11 → 6SEL 06-14 13:21
PROVIDERS: ADMIT Internal Medicine; ATTEND Internal Medicine
PROC: 5A1935Z Respiratory Ventilation, Less than 24 Consecutive Hours (ICD-10-PCS; 2018-06-11)
PROC: 0BH17EZ Insertion of Endotracheal Airway into Trachea, Via Natural or Artificial Opening (ICD-10-PCS; 2018-06-11)
PROC: 0R9K0ZZ Drainage of Left Shoulder Joint, Open Approach (ICD-10-PCS; 2018-06-11)
PROC: 0SPD0JZ Removal of Synthetic Substitute from Left Knee Joint, Open Approach (ICD-10-PCS; principal; 2018-06-11 11:40)
PROC: 0SHD08Z Insertion of Spacer into Left Knee Joint, Open Approach (ICD-10-PCS; 2018-06-11 11:40)
PROC: 02HV33Z Insertion of Infusion Device into Superior Vena Cava, Percutaneous Approach (ICD-10-PCS; 2018-06-16)
DX: T84.54XA Infection and inflammatory reaction due to internal left knee prosthesis, initial encounter (principal); A41.02 Sepsis due to Methicillin resistant Staphylococcus aureus; J96.00 Acute respiratory failure, unspecified whether with hypoxia or hypercapnia; R65.21 Severe sepsis with septic shock; I50.31 Acute diastolic (congestive) heart failure; J93.9 Pneumothorax, unspecified; L03.114 Cellulitis of left upper limb; M00.862 Arthritis due to other bacteria, left knee; D53.9 Nutritional anemia, unspecified; I25.10 Atherosclerotic heart disease of native coronary artery without angina pectoris; J44.9 Chronic obstructive pulmonary disease, unspecified; K21.9 Gastro-esophageal reflux disease without esophagitis; M06.9 Rheumatoid arthritis, unspecified; M65.812 Other synovitis and tenosynovitis, left shoulder; Y83.1 Surgical operation with implant of artificial internal device as the cause of abnormal reaction of the patient, or of later complication, without mention of misadventure at the time of the procedure; Z82.0 Family history of epilepsy and other diseases of the nervous system; Z87.891 Personal history of nicotine dependence; Z96.612 Presence of left artificial shoulder joint; Z95.5 Presence of coronary angioplasty implant and graft; Z87.01 Personal history of pneumonia (recurrent); Z82.61 Family history of arthritis; Z79.899 Other long term (current) drug therapy; M75.102 Unspecified rotator cuff tear or rupture of left shoulder, not specified as traumatic
CPT/HCPCS: 20610; 36415; 36569; 36600; 71045; 71046; 76937; 77001; 80048; 80053; 80202; 81001; 81003; 82550; 82553; 82805; 83036; 83605; 83735; 84100; 84132; 84484; 85025; 85610; 85652; 85730; 86140; 87040; 87070; 87075; 87077; 87086; 87186; 87205; 88305; 93005; 93306; 94002; 94003; 94640; 94760; 96365; 96366; 96367; 96375; 99285

== ENCOUNTER 2018-06-26 19:51 | Inpatient (IN) | payer MEDICARE ==
[2018-06-26] MEDS ORDERED: ACETAMINOPHEN TAB 500 MG TAB PO STA (20:29)
[2018-06-26 20:52] LABS: Basophils % (A) 0 %; Eosinophils # (A) 0.1 k/uL (0-0.7); Eosinophils % (A) 1 %; HCT 33.8 % (39.0-53.0); Lymphocytes # (A) 1.7 k/uL (1.0-4.8); Lymphocytes % (A) 16 %; MCH 31.4 pg (25.0-35.0); MCHC 32.6 g/dL (31.0-37.0); MCV 96.2 fL (80.0-100.0); Mean Platelet Volume 7.6; Monocytes # (A) 0.4 k/uL (0-1.0); Monocytes % (A) 4 %; Neutrophils # (A) 8.6 k/uL (1.3-7.7); Neutrophils % (A) 78 %; Platelet Count 650 k/uL (150-450); RBC 3.51 m/uL (4.30-5.90); RDW 13.8 % (11.5-15.5); WBC 11.1 k/uL (3.8-10.6)
[2018-06-26 21:02] LABS: INR 1.1 (<1.2); Partial Thromboplastin Time 29.1 sec (22.0-30.0); Prothrombin Time 10.3 sec (9.0-12.0)
[2018-06-26 21:03] LABS: ALT 30 U/L (21-72); AST 25 U/L (17-59); Albumin 2.6 g/dL (3.5-5.0); Alkaline Phosphatase 101 U/L (38-126); Anion Gap 8 mmol/L; Blood Urea Nitrogen 17 mg/dL (9-20); Calcium 8.3 mg/dL (8.4-10.2); Carbon Dioxide 28 mmol/L (22-30); Chloride 102 mmol/L (98-107); Glucose 100 mg/dL (74-99); Potassium 4.1 mmol/L (3.5-5.1); Sodium 138 mmol/L (137-145); Total Bilirubin 0.4 mg/dL (0.2-1.3); Total Protein 5.7 g/dL (6.3-8.2)
--- NOTE | 2018-06-26 21:11 | XR ---
EXAMINATION TYPE: XR chest 2V DATE OF EXAM: 06/26/2018 COMPARISON: 06/16/2018 HISTORY: Fever TECHNIQUE: Frontal and lateral views of the chest are obtained. FINDINGS: There is posterior pulmonary consolidation and pleural fluid. There is increasing opacific ation of the right posterior hemithorax compared to last exam. The left lung is clear. Heart size is normal. There is right shoulder prosthesis. IMPRESSION: Increased right pleural thickening and consolidation compared to last exam. The possibil ity of empyema should be considered. No heart failure.
[2018-06-26] MEDS: SODIUM CHLORIDE 0.9% 500 ML IV SCH (21:15)
[2018-06-26 21:27] LABS: Amorphous Sediment,Urine Few /hpf; Appearance,Urine Cloudy (Clear); Bacteria,Urine Occasional /hpf; Bilirubin,Urine Negative (Negative); Blood,Urine Trace (Negative); Color,Urine Yellow; Glucose,Urine (UA) Negative (Negative); Hyaline Casts,Urine 6 /lpf (0-2); Ketones,Urine Negative (Negative); Leukocyte Esterase,Urine Negative (Negative); Mucus,Urine Moderate /hpf; Nitrite,Urine Negative (Negative); Protein,Urine 1+ (Negative); RBC,Urine 6 /hpf (0-5); Specific Gravity,Urine 1.022 (1.001-1.035); Squamous Epithelial Cell,Urine <1 /hpf (0-4); Urobilinogen,Urine <2.0 mg/dL (<2.0); WBC,Urine 3 /hpf (0-5)
[2018-06-26] MEDS ORDERED: RX INFO: IV CONTRAST WAS GIVEN 1 EACH MISC MISCELLANE PRN (23:08)
--- NOTE | 2018-06-27 00:24 | ED ---
Fever HPI - General Source: patient, EMS Mode of arrival: EMS Limitations: no limitations <Bijal Adams - Last Filed: 06/27/18 03:01> <Ariela Noyola - Last Filed: 06/29/18 19:06> - General Chief Complaint: Fever Stated Complaint: fever Time Seen by Provider: 06/26/18 20:23 - History of Present Illness Initial Comments: 73-year-old male patient presents to the emergency department today for evaluation of fever. Patient has had fevers over the last 3 days as high as 102.2F. Patient was discharged on 06/17/2018 after a 5 day stay for septic arthritis of the left knee with bacteremia. Patient is currently residing at [facility] for IV antibiotic administration. Patient has been receiving vancomycin. Patient states that he started having fevers again about 3 days ago. Patient states he is becoming weaker and is concerned that his infection has returned or getting worse. Patient denies any cough or shortness of breath. Denies any increased pain to the knee. Patient states he also had a procedure in the left shoulder to evaluate for infection. States that incision is healing well and has no increased pain or drainage from the incision site. Patient denies any recent rash, chest pain, abdominal pain, nausea, vomiting, diarrhea, constipation, back pain, numbness, tingling, dizziness, hematuria, dysuria, urinary urgency, urinary frequency, headache, visual changes, or any other complaints. (Bijal Adams) - Related Data Home Medications Medication Instructions Recorded Confirmed Folic Acid 1 mg PO DAILY 01/12/18 06/28/18 Acetaminophen [Tylenol] 325 mg PO Q8H PRN 06/26/18 06/28/18 Ferrous Sulfate [Iron] 325 mg PO BID@0900,1700 06/26/18 06/28/18 Hylands Restful Legs Pm 2 tab PO DAILY PRN 06/26/18 06/28/18 Ibuprofen [Motrin] 400 mg PO BID PRN 06/26/18 06/28/18 SODIUM CHLORIDE 0.9% 20mL VL 10 ml IVPB BID 06/26/18 06/28/18 [Sodium Chloride] predniSONE 10 mg PO DAILY 06/26/18 06/28/18 Previous Rx's Medication Instructions Recorded Aspirin 81 mg PO DAILY chew 06/17/18 Atorvastatin [Lipitor] 40 mg PO HS tab 06/17/18 Famotidine [Pepcid] 20 mg PO DAILY tab 06/17/18 Furosemide [Lasix] 40 mg PO DAILY #30 tablet 06/17/18 Ipratropium-Albuterol Nebulize 3 ml INHALATION RT-QID ampul.neb 06/17/18 [Duoneb 0.5 mg-3 mg/3 ml Soln] Vancomycin 1,750 mg IVPB Q12H #168 vial 06/17/18 oxyCODONE HCL/ACETAMINOPHEN 2 tab PO Q6H PRN 3 Days #24 tablet 06/17/18 [Percocet 10-325 mg] Allergies Allergy/AdvReac Type Severity Reaction Status Date / Time No Known Allergies Allergy Verified 06/26/18 20:44 Review of Systems ROS Other: All systems not noted in ROS Statement are negative. <Bijal Adams - Last Filed: 06/27/18 03:01> ROS Other: All systems not noted in ROS Statement are negative. <Ariela Noyola - Last Filed: 06/29/18 19:06> ROS Statement: Those systems with pertinent positive or pertinent negative responses have been documented in the HPI. Past Medical History Past Medical History: Coronary Artery Disease (CAD), COPD, GERD/Reflux, Pneumonia, Rheumatoid Arthritis (RA) Additional Past Medical History / Comment(s): Pancreatitis couple times a year, 2012 past medical record documents viral pericarditis but pt denies, gastritis, has home O2 at HS only but has not been using. He is scheduled for outpatient sleep study on June 26. History of Any Multi-Drug Resistant Organisms: MRSA Date of last positivie culture/infection: 06/12/18 MDRO Source:: Blood Past Surgical History: Heart Catheterization With Stent, Joint Replacement, Orthopedic Surgery Additional Past Surgical History / Comment(s): Total L knee arthroplasty, R total shoulder, L ankle ORIF d/t fracture, EGD, left rotator cuff repair Past Anesthesia/Blood Transfusion Reactions: No Reported Reaction Additional Past Anesthesia/Blood Transfusion Reaction / Comment(s): Pt states he has never recieved blood. Date of Last Stent Placement:: 12/10/16 Past Psychological History: No Psychological Hx Reported Smoking Status: Former smoker Past Alcohol Use History: None Reported Past Drug Use History: None Reported - Past Family History Sister(s) Family Medical History: Cancer Additional Family Medical History / Comment(s): pt's father had ra, mother had 16 children was healthy most of her life age 93 from alzheimers. Mother Family Medical History: Dementia Father Family Medical History: Rheumatoid Arthritis (RA) <Bijal Adams M - Last Filed: 06/27/18 03:01> General Exam Limitations: no limitations General appearance: alert, in no apparent distress, other (This is a well- developed, well-nourished elderly male patient in no acute distress. Vital signs upon presentation are temperature 100.6F, pulse 98, respirations 24, blood pressure 114/68, pulse ox 93% on room air.) Eye exam: Present: normal appearance, PERRL, EOMI. Absent: scleral icterus, conjunctival injection, periorbital swelling ENT exam: Present: normal exam, normal oropharynx, mucous membranes moist Respiratory exam: Present: decreased breath sounds (To the right lower lobe). Absent: normal lung sounds bilaterally, respiratory distress, wheezes, rales, rhonchi, stridor Cardiovascular Exam: Present: regular rate, normal rhythm, normal heart sounds. Absent: systolic murmur, diastolic murmur, rubs, gallop, clicks GI/Abdominal exam: Present: soft, normal bowel sounds. Absent: distended, tenderness, guarding, rebound, rigid Extremities exam: Present: full ROM, normal capillary refill, other (Midline incision is well approximated. No evidence of swelling, erythema, or current drainage. Incision to the left anterior shoulder is well approximated with no swelling, erythema, or drainage. Remainder of skin to bilateral lower extremities and upper chest is pink, warm, and dry. Cap refills less than 3 seconds. Radial pulses are 2+ and equal bilaterally. Pedal pulses are 2+ and equal bilaterally.). Absent: tenderness, pedal edema, joint swelling, calf tenderness Neurological exam: Present: alert, oriented X3, CN II-XII intact Psychiatric exam: Present: normal affect, normal mood Skin exam: Present: warm, dry, intact, normal color. Absent: rash <Bijal Adams M - Last Filed: 06/27/18 03:01> Vital Signs 06/26/18 06/26/18 06/26/18 20:09 22:07 23:22 Temperature 100.6 F H 99.2 F 98.5 F Pulse Rate 98 85 80 Respiratory 24 16 16 Rate Blood Pressure 114/68 118/58 115/70 O2 Sat by Pulse 93 L 98 98 Oximetry 06/27/18 06/27/18 01:06 04:49 Temperature 98.1 F Pulse Rate 74 78 Respiratory 16 16 Rate Blood Pressure 114/62 107/57 O2 Sat by Pulse 97 98 Oximetry Medical Decision Making - Lab Data Result diagrams: 06/26/18 20:38 06/26/18 20:38 - EKG Data -: EKG Interpreted by Mn - Radiology Data Radiology results: report reviewed, image reviewed <Bijal Adams - Last Filed: 06/27/18 03:01> - Lab Data Result diagrams: 06/29/18 08:02 06/29/18 08:02 <Ariela Noyola - Last Filed: 06/29/18 19:06> - Medical Decision Making 73-year-old male patient presented to the emergency department today for evaluation of fever and weakness. Physical examination was relatively unremarkable. Patient does have healing incision to the left shoulder and the left knee. Both areas appear to be healing well without any evidence of infection. Labs reviewed and did reveal an elevated white blood cell count at 11.1. Urinalysis did show 1+ protein, trace amount of blood, 6 red blood cells , few amorphous sediment, occasional urine bacteria, 6 hyaline casts, and moderate urine mucus. Chest x-ray did show evidence of pleural effusion in the right lung field that is increased compared to old exam. Did perform CT of the chest with contrast to further evaluate this and did reveal loculated pleural effusion with moderate infiltrates in the lower lobes of both lungs. This patient was recently hospitalized receiving IV antibiotics we will treat patient for HCAP with cefepime, levofloxacin, and vancomycin. Patient is also receiving care for recent septic arthritis and bacteremia so we will consult Dr. Paul. Cardiothoracic surgery will be consulted for further evaluation of this pleural effusion/empyema. Patient will be admitted to Dr. Vaca's service. (Bijal Adams) I personally saw and examined the patient. I reviewed and agree with the mid- level provider findings including all diagnostic interpretations and treatment plans as written unless otherwise stated. I was present for lazar portions of any procedures performed. Patient care was discussed with the admitting physician who accepts admission with consults to cardiothoracic surgery and infectious disease. (Ariela Noyola) - Lab Data Lab Results 06/26/18 06/26/18 06/26/18 Range/Units 20:38 20:38 20:38 WBC 11.1 H (3.8-10.6) k/uL RBC 3.51 L (4.30-5.90) m/uL Hgb 11.0 L (13.0-17.5) gm/dL Hct 33.8 L (39.0-53.0) % MCV 96.2 (80.0-100.0) fL MCH 31.4 (25.0-35.0) pg MCHC 32.6 (31.0-37.0) g/dL RDW 13.8 (11.5-15.5) % Plt Count 650 H (150-450) k/uL Neutrophils % 78 % Lymphocytes % 16 % Monocytes % 4 % Eosinophils % 1 % Basophils % 0 % Neutrophils # 8.6 H (1.3-7.7) k/uL Lymphocytes # 1.7 (1.0-4.8) k/uL Monocytes # 0.4 (0-1.0) k/uL Eosinophils # 0.1 (0-0.7) k/uL Basophils # 0.0 (0-0.2) k/uL PT (9.0-12.0) sec INR (<1.2) APTT (22.0-30.0) sec Sodium 138 (137-145) mmol/L Potassium 4.1 (3.5-5.1) mmol/L Chloride 102 (98-107) mmol/L Carbon Dioxide 28 (22-30) mmol/L Anion Gap 8 mmol/L BUN 17 (9-20) mg/dL Creatinine 0.77 (0.66-1.25) mg/dL Est GFR (CKD-EPI)AfAm >90 (>60 ml/min/1.73 sqM) Est GFR (CKD-EPI)NonAf >90 (>60 ml/min/1.73 sqM) Glucose 100 H (74-99) mg/dL Plasma Lactic Acid Harsh 0.8 (0.7-2.0) mmol/L Calcium 8.3 L (8.4-10.2) mg/dL Total Bilirubin 0.4 (0.2-1.3) mg/dL AST 25 (17-59) U/L ALT 30 (21-72) U/L Alkaline Phosphatase 101 (38-126) U/L Total Protein 5.7 L (6.3-8.2) g/dL Albumin 2.6 L (3.5-5.0) g/dL Urine Color Urine Appearance (Clear) Urine pH (5.0-8.0) Ur Specific Billings (1.001-1.035) Urine Protein (Negative) Urine Glucose (UA) (Negative) Urine Ketones (Negative) Urine Blood (Negative) Urine Nitrite (Negative) Urine Bilirubin (Negative) Urine Urobilinogen (<2.0) mg/dL Ur Leukocyte Esterase (Negative) Urine RBC (0-5) /hpf Urine WBC (0-5) /hpf Ur Squamous Epith Cells (0-4) /hpf Amorphous Sediment (None) /hpf Urine Bacteria (None) /hpf Hyaline Casts (0-2) /lpf Urine Mucus (None) /hpf Random Vancomycin ug/mL 06/26/18 06/26/18 06/26/18 Range/Units 20:38 20:38 21:09 WBC (3.8-10.6) k/uL RBC (4.30-5.90) m/uL Hgb (13.0-17.5) gm/dL Hct (39.0-53.0) % MCV (80.0-100.0) fL MCH (25.0-35.0) pg MCHC (31.0-37.0) g/dL RDW (11.5-15.5) % Plt Count (150-450) k/uL Neutrophils % % Lymphocytes % % Monocytes % % Eosinophils % % Basophils % % Neutrophils # (1.3-7.7) k/uL Lymphocytes # (1.0-4.8) k/uL Monocytes # (0-1.0) k/uL Eosinophils # (0-0.7) k/uL Basophils # (0-0.2) k/uL PT 10.3 (9.0-12.0) sec INR 1.1 (<1.2) APTT 29.1 (22.0-30.0) sec Sodium (137-145) mmol/L Potassium (3.5-5.1) mmol/L Chloride (98-107) mmol/L Carbon Dioxide (22-30) mmol/L Anion Gap mmol/L BUN (9-20) mg/dL Creatinine (0.66-1.25) mg/dL Est GFR (CKD-EPI)AfAm (>60 ml/min/1.73 sqM) Est GFR (CKD-EPI)NonAf (>60 ml/min/1.73 sqM) Glucose (74-99) mg/dL Plasma Lactic Acid Harsh (0.7-2.0) mmol/L Calcium (8.4-10.2) mg/dL Total Bilirubin (0.2-1.3) mg/dL AST (17-59) U/L ALT (21-72) U/L Alkaline Phosphatase (38-126) U/L Total Protein (6.3-8.2) g/dL Albumin (3.5-5.0) g/dL Urine Color Yellow Urine Appearance Cloudy (Clear) Urine pH 6.0 (5.0-8.0) Ur Specific Billings 1.022 (1.001-1.035) Urine Protein 1+ H (Negative) Urine Glucose (UA) Negative (Negative) Urine Ketones Negative (Negative) Urine Blood Trace H (Negative) Urine Nitrite Negative (Negative) Urine Bilirubin Negative (Negative) Urine Urobilinogen <2.0 (<2.0) mg/dL Ur Leukocyte Esterase Negative (Negative) Urine RBC 6 H (0-5) /hpf Urine WBC 3 (0-5) /hpf Ur Squamous Epith Cells <1 (0-4) /hpf Amorphous Sediment Few H (None) /hpf Urine Bacteria Occasional H (None) /hpf Hyaline Casts 6 H (0-2) /lpf Urine Mucus Moderate H (None) /hpf Random Vancomycin 19.8 ug/mL - EKG Data EKG Comments: EKG obtained at 2105 shows normal sinus rhythm with a ventricular rate of 88, RI interval 160, QRS duration 78, QT 334, QTC 404. No evidence of ST elevation or depression. (Bijal Adams) - Radiology Data Two-view x-ray of the chest is obtained. Report was reviewed in its entirety. Impression by Dr. Solis shows increased right pleural thickening and consolidation compared to last exam. The possibility of empyema should be considered. No heart failure. CT chest with contrast was obtained. Report shows large loculated right pleural effusion. There is atelectasis and infiltrate in the right lower lobe. There is patchy infiltrate in the subpleural posterior left lower lobe. There is no pericardial effusion. There are a few paratracheal lymph nodes that measure up to 1.5 cm. Thoracic aorta is intact. I see no filling defects in the pulmonary arteries. The bony thorax is intact. Pleural fluid collection is loculated and measures 13 x 6 cm. There are emphysematous changes in the upper lobes. There is a 3 cm versus the left lobe of the liver. There are calcified splenic granulomata. Impression by Dr. Solis shows loculated large right pleural fluid collection is in the posterior lung field. There is moderate adjacent pulmonary infiltrate and atelectasis. There is similar infiltrate the left posterior lung base. Chronic empyema should be considered. Pleural fluid is significantly increased compared to old computed tomography scan but infiltrate is increased. (Bijal Adams) Disposition Decision to Admit Reason: Admit from EC Decision Date: 06/27/18 Decision Time: 03:02 <Bijal Adams - Last Filed: 06/27/18 03:01> <Ariela Noyola - Last Filed: 06/29/18 19:06> Clinical Impression: Pneumonia of both lower lobes, Pleural effusion on right Disposition: ADMITTED IP TO THIS HOSP Condition: Serious
--- NOTE | 2018-06-27 00:42 | CT ---
EXAMINATION TYPE: CT chest w con DATE OF EXAM: 06/27/2018 COMPARISON: 11/21/2017 HISTORY: Right lung lesion CT DLP: 522.40 mGycm Automated exposure control for dose reduction was used. CONTRAST: CT scan of the chest is performed with IV Contrast, patient injected with 100 mL of Isovue 300. FINDINGS: There is a large loculated right pleural effusion. There is atelectasis and infiltrate in the right l ower lobe. There is an patchy infiltrate in the subpleural posterior left lower lobe. There is no per icardial effusion. There are a few paratracheal lymph nodes that measure up to 1.5 cm. Thoracic aorta is intact. I see no filling defects in the pulmonary arteries. The bony thorax is intact. Pleural fl uid collection is loculated and measures 13 x 6 cm. There are emphysematous changes in the upper lobe s. There is a 3 cm cyst in the left lobe of the liver. There are calcified splenic granulomata. IMPRESSION: Loculated large right pleural fluid collection is in the posterior lung field. There is moderate adjacent pulmonary infiltrate and atelectasis. There is similar infiltrate at the left poste rior lung base. Chronic empyema should be considered. Pleural fluid is significantly increased compar ed to old CT scan. Infiltrate is increased.
[2018-06-27] MEDS ORDERED: VANCOMYCIN IV PER PHARMACY 1 EACH MISC MISCELLANE PRN (00:55)
[2018-06-27] MEDS ORDERED: LEVOFLOXACIN 750MG-D5W PMX 750 MG in DEXTROSE/WATER 1 150ML.BAG IVPB STA (00:55)
[2018-06-27] MEDS ORDERED: CEFEPIME 2 GM in SODIUM CHLORIDE 0.9% 50 ML IVPB STA (00:55)
[2018-06-27] MEDS ORDERED: oxyCODONE-APAP 10-325MG 1 EACH TAB PO STA (01:03)
[2018-06-27] MEDS ORDERED: ONDANSETRON 4 MG/2 ML VIAL IVP PRN (02:56)
[2018-06-27] MEDS ORDERED: NALOXONE 0.4 MG/ML 1 ML VIAL IV PRN (02:56)
[2018-06-27] MEDS ORDERED: IBUPROFEN 400 MG TAB PO PRN (02:56)
[2018-06-27] MEDS ORDERED: [UNRECOGNIZED DRUG - OTHER] PO PRN (02:59)
[2018-06-27] MEDS: SODIUM CHLORIDE 0.9% 1,000 ML IV SCH (05:17)
[2018-06-27 05:30] VITALS: BMI 28.1
[2018-06-27] MEDS: IPRATROPIUM-ALBUTEROL 3 ML NEB INHALATION SCH ×4 (07:37→20:49)
[2018-06-27] MEDS ORDERED: ACETAMINOPHEN TAB 325 MG TAB PO PRN (07:38)
--- NOTE | 2018-06-27 07:40 | P.HPIM ---
History of Present Illness H&P Date: 06/27/18 Chief Complaint: Fever Fletcher Sanabria is a 73-year-old male who was recently admitted to [facility] due to left knee septic arthroplasty, blood culture and left knee cultures were positive for MRSA patient was seen by infectious disease Dr. Paul he was started on IV vancomycin he was discharged to [facility] on the [facility] to complete his IV antibiotic course. Patient continued to have episodes of elevated temperature up to 102.2 despite IV antibiotic and multiple medication to control his fever, at that point patient was sent back to [facility] emergency room for reevaluation. Chest x-ray was done and revealed evidence of pleural thickening and the possibility of empyema should be considered, computed tomography scan of the chest was done in the emergency room and revealed evidence of loculated large right pleural effusion, with adjacent pulmonary infiltrate. IV Levaquin was added to regimen and patient was admitted to medical floor, pulmonary consultation, infectious disease consultation, and thoracic surgery consultation were requested. Past Medical History Past Medical History: Coronary Artery Disease (CAD), COPD, GERD/Reflux, Pneumonia, Rheumatoid Arthritis (RA) Additional Past Medical History / Comment(s): Pancreatitis couple times a year, 2012 past medical record documents viral pericarditis but pt denies, gastritis, has home O2 at only but has not been using. History of Any Multi-Drug Resistant Organisms: MRSA Date of last positivie culture/infection: 06/12/18 MDRO Source:: Blood Past Surgical History: Heart Catheterization With Stent, Joint Replacement, Orthopedic Surgery Additional Past Surgical History / Comment(s): Total L knee arthroplasty with a spacer in place, R total shoulder replaced, L ankle ORIF d/t fracture, EGD, left rotator cuff repair. right ankle sx Past Anesthesia/Blood Transfusion Reactions: No Reported Reaction Additional Past Anesthesia/Blood Transfusion Reaction / Comment(s): Pt states he has never recieved blood. Date of Last Stent Placement:: 12/10/16 Past Psychological History: No Psychological Hx Reported Smoking Status: Former smoker Past Alcohol Use History: None Reported Additional Past Alcohol Use History / Comment(s): Patient was a smoker one to one and half packs per day for 40+ years and quit 2 years ago when he had cardiac stents done. He uses a synthetic marijuana at nighttime only for his arthritis to help him sleep. He denies any other street drug use, alcohol use. 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 He lives at home with his . Past Drug Use History: None Reported - Past Family History Sister(s) Family Medical History: Cancer Additional Family Medical History / Comment(s): pt's father had ra, mother had 16 children was healthy most of her life age 93 from alzheimers. Mother Family Medical History: Dementia Father Family Medical History: Rheumatoid Arthritis (RA) Medications and Allergies Home Medications Medication Instructions Recorded Confirmed Type Folic Acid 1 mg PO DAILY 01/12/18 06/26/18 History Aspirin 81 mg PO DAILY chew 06/17/18 06/26/18 Rx Atorvastatin [Lipitor] 40 mg PO HS tab 06/17/18 06/26/18 Rx Famotidine [Pepcid] 20 mg PO DAILY tab 06/17/18 06/26/18 Rx Furosemide [Lasix] 40 mg PO DAILY #30 tablet 06/17/18 06/26/18 Rx Ipratropium-Albuterol Nebulize 3 ml INHALATION RT-QID ampul.neb 06/17/18 Rx [Duoneb 0.5 mg-3 mg/3 ml Soln] Vancomycin 1,750 mg IVPB Q12H #168 vial 06/17/18 06/26/18 Rx oxyCODONE HCL/ACETAMINOPHEN 2 tab PO Q6H PRN 3 Days #24 tablet 06/17/18 Rx [Percocet 10-325 mg] Acetaminophen [Tylenol] 325 mg PO Q8H PRN 06/26/18 06/26/18 History Ferrous Sulfate [Iron] 325 mg PO BID@0900,1700 06/26/18 06/26/18 History Hylands Restful Legs Pm 2 tab PO DAILY PRN 06/26/18 06/26/18 History Ibuprofen [Motrin] 400 mg PO BID PRN 06/26/18 06/26/18 History SODIUM CHLORIDE 0.9% 20mL VL 10 ml IVPB BID 06/26/18 06/26/18 History [Sodium Chloride] predniSONE 10 mg PO DAILY 06/26/18 06/26/18 History Allergies Allergy/AdvReac Type Severity Reaction Status Date / Time No Known Allergies Allergy Verified 06/26/18 20:44 Physical Exam Vitals: Vital Signs Temp Pulse Pulse Resp BP BP Pulse Ox 06/27/18 05:16 98.2 F 79 18 113/60 96 06/27/18 04:49 78 16 107/57 98 06/27/18 01:06 98.1 F 74 16 114/62 97 06/26/18 23:22 98.5 F 80 16 115/70 98 06/26/18 22:07 99.2 F 85 16 118/58 98 06/26/18 20:09 100.6 F H 98 24 114/68 93 L Intake and Output 06/26/18 06/27/18 06/27/18 22:59 06:59 14:59 Other: # Voids 0 Weight 81.647 kg 81.647 kg In general patient is alert and oriented 3 in no apparent distress HEENT head normocephalic and atraumatic Neck is supple no JVD no goiter no lymphadenopathy no carotid bruit Chest exam reveals a few scattered crackles no wheezing Cardiac exam reveals regular heart sounds no gallops no murmurs Abdomen is soft nontender no organomegaly with normal bowel sounds Extremity exam reveals no edema, left knee with brace on, no cyanosis or clubbing Neurological examination reveals no gross focal deficit Results CBC & Chem 7: 06/26/18 20:38 06/26/18 20:38 Labs: Abnormal Lab Results - Last 24 Hours (Table) 06/26/18 06/26/18 06/26/18 Range/Units 20:38 20:38 21:09 WBC 11.1 H (3.8-10.6) k/uL RBC 3.51 L (4.30-5.90) m/uL Hgb 11.0 L (13.0-17.5) gm/dL Hct 33.8 L (39.0-53.0) % Plt Count 650 H (150-450) k/uL Neutrophils # 8.6 H (1.3-7.7) k/uL Glucose 100 H (74-99) mg/dL Calcium 8.3 L (8.4-10.2) mg/dL Total Protein 5.7 L (6.3-8.2) g/dL Albumin 2.6 L (3.5-5.0) g/dL Urine Protein 1+ H (Negative) Urine Blood Trace H (Negative) Urine RBC 6 H (0-5) /hpf Amorphous Sediment Few H (None) /hpf Urine Bacteria Occasional H (None) /hpf Hyaline Casts 6 H (0-2) /lpf Urine Mucus Moderate H (None) /hpf Microbiology - Last 24 Hours (Table) 06/26/18 21:09 Urine Culture - Preliminary Urine,Voided Thrombosis Risk Factor Assmnt - Choose All That Apply Any of the Below Risk Factors Present?: Yes Each Factor Represents 1 point: Abnormal pulmonary function (COPD), Obesity ( BMI >25), Sepsis (< 1month) Other Risk Factors: Yes Each Risk Factor Represents 2 Points: Age 61-74 years, Arthroscopic surgery Thrombosis Risk Factor Assessment Total Risk Factor Score: 7 Thrombosis Risk Factor Assessment Level: High Risk Assessment and Plan Plan: #1 febrile illness with leukocytosis, possibly related to pneumonia with empyema , at this time IV Levaquin was added to her regimen, pulmonary consultation and infectious disease consultation were requested, also thoracic surgery consultation was requested. #2 recent admission for left knee septic arthroplasty, with sepsis, at that time blood culture and knee culture were positive for MRSA will continue IV vancomycin, Dr. Paul consult was requested. #3 history of coronary artery disease stable at this time patient denies any chest pain, he denies any shortness of breath at this time #4 previous history of pancreatitis. #5 known history of rheumatoid arthritis, patient was on methotrexate in the past however this is on hold at this time due to acute infection since his last admission. #6 history of gastroesophageal reflux disease #7 underlying history of hyperlipidemia maintained on Lipitor. At this time plan is to continue with current antibiotic Levaquin and IV vancomycin Awaiting input from pulmonary and thoracic surgery Medications reviewed and reordered, will follow closely.
[2018-06-27] MEDS: oxyCODONE-APAP 10-325MG 1 EACH TAB PO SCH ×3 (07:46→20:32)
[2018-06-27] MEDS: VANCOMYCIN 1,750 MG in SODIUM CHLORIDE 0.9% 500 ML IVPB SCH ×2 (07:54→20:32)
[2018-06-27] MEDS: FERROUS SULFATE 325 MG TAB PO SCH ×2 (07:54→16:33)
[2018-06-27] MEDS: FUROSEMIDE 40 MG TAB PO SCH (07:54)
[2018-06-27] MEDS: FAMOTIDINE 20 MG TAB PO SCH (07:54)
[2018-06-27] MEDS: predniSONE 10 MG TAB PO SCH (07:55)
[2018-06-27] MEDS: IBUPROFEN 400 MG TAB PO PRN (08:04)
--- NOTE | 2018-06-27 11:06 | P.GSCN ---
<Yaya Avendaño - Last Filed: 06/27/18 10:51> History of Present Illness Consult date: 06/27/18 Reason for Consult: Loculated right pleural effusion. Requesting physician: Abad Vaca History of present illness: This is a 73-year-old gentleman who is followed by Dr. Ruthy Montemayor on an outpatient basis. He has a past medical history significant for rheumatoid arthritis, recent left knee septic arthroplasty, positive blood cultures and left knee cultures for MRSA, COPD with home oxygen use, history of pneumonia in 2017, history of pancreatitis, history of coronary artery disease with previous stent placement to his right coronary artery and remote history of nicotine dependence which he quit in 2015. On 06/11/2018 the patient presented to the emergency department here at [facility] with complaints of left knee pain and swelling. During his admission on 06/11/2018 patient did have a fever but denied any complaints of nausea, vomiting, diarrhea, or change in bladder habits. Subsequently he underwent an I&D of his left knee with removal of the components femur, tibia, patella and insertion of antibiotic spacers. Wound cultures taken during the left knee surgery were positive for MRSA. A PICC line was inserted and he has been on the sacral myosin IV piggyback treatments managed by Dr. Paul from infectious disease. He was subsequently discharged to [facility] for further rehabilitation needs. He presented to the emergency department here at [facility] last evening with complaints of fever as high as 102.2 despite current antibiotic therapy and some complaints of shortness of breath. The patient denies any complaints of pain, nausea, vomiting, diarrhea, constipation, or change in bladder habits. A chest x-ray was completed in the emergency department which showed an increased right pleural thickening and consolidation possibly empyema. For further evaluation and a computed tomography scan of his chest was completed which demonstrated a loculated large right pleural fluid collection in the posterior lung field. Moderate pulmonary infiltrate and atelectasis, and possible chronic empyema. Due to the patient's presenting symptoms, chest x-ray results and computed tomography scan results as a consult was placed to Dr. Vázquez from cardiothoracic surgery for further medical therapy and surgical recommendations. Review of Systems A 14 point review of systems was completed and was negative except as mentioned in the HPI. Past Medical History Past Medical History: Coronary Artery Disease (CAD), COPD, GERD/Reflux, Hyperlipidemia, Pneumonia, Rheumatoid Arthritis (RA) Additional Past Medical History / Comment(s): History of pancreatitis, 2012 past medical record documents viral pericarditis but pt denies, gastritis, has home O2 at HS only but has not been using. History of Any Multi-Drug Resistant Organisms: MRSA Year Discovered:: 06/12/18 MDRO Source:: Blood, left knee wound culture Past Surgical History: Heart Catheterization With Stent (History of heart cath in November 2016 with a stent placed to his right coronary artery for a 80-90% stenosis to his RCA.), Joint Replacement, Orthopedic Surgery Additional Past Surgical History / Comment(s): Total L knee arthroplasty with a spacer in place, R total shoulder replaced, L ankle ORIF d/t fracture, EGD, left rotator cuff repair. right ankle sx Past Anesthesia/Blood Transfusion Reactions: No Reported Reaction Additional Past Anesthesia/Blood Transfusion Reaction / Comm: Pt states he has never recieved blood. Date of Last Stent Placement:: 12/10/16 Past Psychological History: No Psychological Hx Reported Smoking Status: Former smoker (Quit smoking in 2015.) Past Alcohol Use History: None Reported Additional Past Alcohol Use History / Comment(s): Patient was a smoker one to one and half packs per day for 40+ years and quit 2 years ago when he had cardiac stents done. He uses a synthetic marijuana at nighttime only for his arthritis to help him sleep. He denies any other street drug use, alcohol use. 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 He lives at home with his . Past Drug Use History: None Reported - Past Family History Sister(s) Family Medical History: Cancer Additional Family Medical History / Comment(s): pt's father had ra, mother had 16 children was healthy most of her life age 93 from dementia. Mother Family Medical History: Dementia Father Family Medical History: Rheumatoid Arthritis (RA) Medications and Allergies Home Medications Medication Instructions Recorded Confirmed Type Folic Acid 1 mg PO DAILY 01/12/18 06/28/18 History Aspirin 81 mg PO DAILY chew 06/17/18 06/28/18 Rx Atorvastatin [Lipitor] 40 mg PO HS tab 06/17/18 06/28/18 Rx Famotidine [Pepcid] 20 mg PO DAILY tab 06/17/18 06/28/18 Rx Furosemide [Lasix] 40 mg PO DAILY #30 tablet 06/17/18 06/28/18 Rx Ipratropium-Albuterol Nebulize 3 ml INHALATION RT-QID ampul.neb 06/17/18 Rx [Duoneb 0.5 mg-3 mg/3 ml Soln] Vancomycin 1,750 mg IVPB Q12H #168 vial 06/17/18 06/28/18 Rx oxyCODONE HCL/ACETAMINOPHEN 2 tab PO Q6H PRN 3 Days #24 tablet 06/17/18 Rx [Percocet 10-325 mg] Acetaminophen [Tylenol] 325 mg PO Q8H PRN 06/26/18 06/28/18 History Ferrous Sulfate [Iron] 325 mg PO BID@0900,1700 06/26/18 06/28/18 History Hylands Restful Legs Pm 2 tab PO DAILY PRN 06/26/18 06/28/18 History Ibuprofen [Motrin] 400 mg PO BID PRN 06/26/18 06/28/18 History SODIUM CHLORIDE 0.9% 20mL VL 10 ml IVPB BID 06/26/18 06/28/18 History [Sodium Chloride] predniSONE 10 mg PO DAILY 06/26/18 06/28/18 History Allergies Allergy/AdvReac Type Severity Reaction Status Date / Time No Known Allergies Allergy Verified 06/26/18 20:44 Surgical - Exam Vital Signs Temp Pulse Resp BP Pulse Ox 100.6 F H 98 24 114/68 93 L 06/26/18 20:09 06/26/18 20:09 06/26/18 20:09 06/26/18 20:09 06/26/18 20:09 - General well developed, well nourished, no distress, no pain - Eyes PERRL, normal ocular movement - ENT normal pinna, normal nares, normal mucosa, no hearing loss, no congestion, poor custodial - Neck Neck is supple, no lymphadenopathy. no masses, no bruits, trachea midline, no venous distension - Respiratory Lung sounds with scattered expiratory wheezes, few scattered crackles, diminished to his right lower lobe. Respirations are symmetrical and nonlabored. Oxygen saturation are 95% on 2 L nasal cannula. - Cardiovascular Regular rhythm and rate. S1 and S2 present, negative for S3, gallop or murmur. No edema present. Peripheral pulses palpable. - Abdomen Abdomen is soft, nontender and non-distended. Active bowel sounds all 4 abdominal quadrants. Tolerating oral intake. Passing flatus. - Genitourinary Deferred - Rectum Deferred - Integumentary Left shoulder incision clean dry and approximated. No redness or drainage present. Left knee incision clean dry and approximated. Sandra intact. No redness or drainage present. no rash, no growths, no abnormal pigmentation - Neurologic normal coordination, normal sensation - Musculoskeletal Immobilizer in place to the left leg. - Psychiatric oriented to time, oriented to person, oriented to place, speech is normal, memory intact Results - Labs 06/26/18 20:38 06/26/18 20:38 Abnormal Lab Results - Last 24 Hours (Table) 06/26/18 06/26/18 06/26/18 Range/Units 20:38 20:38 21:09 WBC 11.1 H (3.8-10.6) k/uL RBC 3.51 L (4.30-5.90) m/uL Hgb 11.0 L (13.0-17.5) gm/dL Hct 33.8 L (39.0-53.0) % Plt Count 650 H (150-450) k/uL Neutrophils # 8.6 H (1.3-7.7) k/uL Glucose 100 H (74-99) mg/dL Calcium 8.3 L (8.4-10.2) mg/dL Total Protein 5.7 L (6.3-8.2) g/dL Albumin 2.6 L (3.5-5.0) g/dL Urine Protein 1+ H (Negative) Urine Blood Trace H (Negative) Urine RBC 6 H (0-5) /hpf Amorphous Sediment Few H (None) /hpf Urine Bacteria Occasional H (None) /hpf Hyaline Casts 6 H (0-2) /lpf Urine Mucus Moderate H (None) /hpf Microbiology - Last 24 Hours (Table) 06/26/18 21:09 Urine Culture - Preliminary Urine,Voided Diabetes panel 06/26/18 Range/Units 20:38 Sodium 138 (137-145) mmol/L Potassium 4.1 (3.5-5.1) mmol/L Chloride 102 (98-107) mmol/L Carbon Dioxide 28 (22-30) mmol/L BUN 17 (9-20) mg/dL Creatinine 0.77 (0.66-1.25) mg/dL Glucose 100 H (74-99) mg/dL Calcium 8.3 L (8.4-10.2) mg/dL AST 25 (17-59) U/L ALT 30 (21-72) U/L Alkaline Phosphatase 101 (38-126) U/L Total Protein 5.7 L (6.3-8.2) g/dL Albumin 2.6 L (3.5-5.0) g/dL Calcium panel 06/26/18 Range/Units 20:38 Calcium 8.3 L (8.4-10.2) mg/dL Albumin 2.6 L (3.5-5.0) g/dL Pituitary panel 06/26/18 Range/Units 20:38 Sodium 138 (137-145) mmol/L Potassium 4.1 (3.5-5.1) mmol/L Chloride 102 (98-107) mmol/L Carbon Dioxide 28 (22-30) mmol/L BUN 17 (9-20) mg/dL Creatinine 0.77 (0.66-1.25) mg/dL Glucose 100 H (74-99) mg/dL Calcium 8.3 L (8.4-10.2) mg/dL Adrenal panel 06/26/18 Range/Units 20:38 Sodium 138 (137-145) mmol/L Potassium 4.1 (3.5-5.1) mmol/L Chloride 102 (98-107) mmol/L Carbon Dioxide 28 (22-30) mmol/L BUN 17 (9-20) mg/dL Creatinine 0.77 (0.66-1.25) mg/dL Glucose 100 H (74-99) mg/dL Calcium 8.3 L (8.4-10.2) mg/dL Total Bilirubin 0.4 (0.2-1.3) mg/dL AST 25 (17-59) U/L ALT 30 (21-72) U/L Alkaline Phosphatase 101 (38-126) U/L Total Protein 5.7 L (6.3-8.2) g/dL Albumin 2.6 L (3.5-5.0) g/dL - Imaging Chest x-ray: report reviewed, image reviewed CT scan - chest: report reviewed, image reviewed Assessment and Plan (1) History of pneumonia Current Visit: Yes Status: Acute Code(s): Z87.01 - PERSONAL HISTORY OF PNEUMONIA (RECURRENT) SNOMED Code(s): 765218898 (2) History of septic arthritis Current Visit: Yes Status: Acute Code(s): Z87.39 - PERSONAL HISTORY OF DISEASES OF THE MS SYS AND CONN TISS SNOMED Code(s): 522146368 (3) MRSA (methicillin resistant staph aureus) culture positive Current Visit: Yes Status: Acute Code(s): Z22.322 - CARRIER OR SUSPECTED CARRIER OF METHICILLIN RESIS STAPH SNOMED Code(s): 936481962 (4) Loculated pleural effusion Current Visit: Yes Status: Acute Code(s): J90 - PLEURAL EFFUSION, NOT ELSEWHERE CLASSIFIED SNOMED Code(s): 454457403 (5) Pleural effusion on right Current Visit: Yes Status: Acute Code(s): J90 - PLEURAL EFFUSION, NOT ELSEWHERE CLASSIFIED SNOMED Code(s): 50169844 (6) Bacteremia Current Visit: No Status: Acute Code(s): R78.81 - BACTEREMIA SNOMED Code(s ): 2394551 (7) COPD (chronic obstructive pulmonary disease) Current Visit: No Status: Acute Code(s): J44.9 - CHRONIC OBSTRUCTIVE PULMONARY DISEASE, UNSPECIFIED SNOMED Code(s): 72504620 (8) History of pancreatitis Current Visit: No Status: Acute Code(s): Z87.19 - PERSONAL HISTORY OF OTHER DISEASES OF THE DIGESTIVE SYSTEM SNOMED Code(s): 24959852148582 (9) Rheumatoid arteritis Current Visit: No Status: Acute Code(s): I00 - RHEUMATIC FEVER WITHOUT HEART INVOLVEMENT SNOMED Code(s): 757275983 Plan: The patient was seen and examined. His chart and diagnostics were reviewed. The patient's case was discussed with Dr. Vázquez from cardiothoracic surgery. We also discussed the case with Dr. Manley from pulmonary medicine. Antibiotic management to continue per infectious disease Dr. Paul. We will order an incentive spirometry every hour while awake. Recommendations for right pigtail catheter placement per interventional radiology. Once the pigtail catheter is placed we will do alteplase pleural instillation. We will follow his labs and chest x-rays. More recommendations to follow based on patient's clinical course. Thank you Dr. Vaca for this consult and we look forward to working with you in the care of your patient. Time with Patient: Greater than 30 <KathieSb - Last Filed: 06/29/18 16:00> Surgical - Exam Vital Signs Temp Pulse Resp BP Pulse Ox 100.6 F H 98 24 114/68 93 L 06/26/18 20:09 06/26/18 20:09 06/26/18 20:09 06/26/18 20:09 06/26/18 20:09 Results - Labs 06/29/18 08:02 06/29/18 08:02 Abnormal Lab Results - Last 24 Hours (Table) 06/29/18 06/29/18 Range/Units 08:02 08:02 RBC 3.46 L (4.30-5.90) m/uL Hgb 10.8 L (13.0-17.5) gm/dL Hct 33.2 L (39.0-53.0) % Plt Count 664 H (150-450) k/uL Calcium 8.1 L (8.4-10.2) mg/dL Total Protein 5.8 L (6.3-8.2) g/dL Albumin 2.6 L (3.5-5.0) g/dL Microbiology - Last 24 Hours (Table) 06/26/18 20:38 Blood Culture - Preliminary Blood No Growth after 48 hours Diabetes panel 06/29/18 Range/Units 08:02 Sodium 139 (137-145) mmol/L Potassium 4.3 (3.5-5.1) mmol/L Chloride 105 (98-107) mmol/L Carbon Dioxide 26 (22-30) mmol/L BUN 11 (9-20) mg/dL Creatinine 0.81 (0.66-1.25) mg/dL Glucose 89 (74-99) mg/dL Calcium 8.1 L (8.4-10.2) mg/dL AST 30 (17-59) U/L ALT 25 (21-72) U/L Alkaline Phosphatase 74 (38-126) U/L Total Protein 5.8 L (6.3-8.2) g/dL Albumin 2.6 L (3.5-5.0) g/dL Calcium panel 06/29/18 Range/Units 08:02 Calcium 8.1 L (8.4-10.2) mg/dL Albumin 2.6 L (3.5-5.0) g/dL Pituitary panel 06/29/18 Range/Units 08:02 Sodium 139 (137-145) mmol/L Potassium 4.3 (3.5-5.1) mmol/L Chloride 105 (98-107) mmol/L Carbon Dioxide 26 (22-30) mmol/L BUN 11 (9-20) mg/dL Creatinine 0.81 (0.66-1.25) mg/dL Glucose 89 (74-99) mg/dL Calcium 8.1 L (8.4-10.2) mg/dL Adrenal panel 06/29/18 Range/Units 08:02 Sodium 139 (137-145) mmol/L Potassium 4.3 (3.5-5.1) mmol/L Chloride 105 (98-107) mmol/L Carbon Dioxide 26 (22-30) mmol/L BUN 11 (9-20) mg/dL Creatinine 0.81 (0.66-1.25) mg/dL Glucose 89 (74-99) mg/dL Calcium 8.1 L (8.4-10.2) mg/dL Total Bilirubin 0.6 (0.2-1.3) mg/dL AST 30 (17-59) U/L ALT 25 (21-72) U/L Alkaline Phosphatase 74 (38-126) U/L Total Protein 5.8 L (6.3-8.2) g/dL Albumin 2.6 L (3.5-5.0) g/dL Assessment and Plan Plan: The patient was seen and examined. I agree with the above assessment and plan. The patient presented to the hospital with a septic knee and shoulder which required explantation of the the hardware. A CT scan of the chest revealed a large loculated right pleural fluid collection. Placement of a pigtail catheter was recommended. Additional recommendations will follow. The patient is currently hemodynamically stable and not septic. We will certainly follow along with you in case surgical intervention is warranted.
--- NOTE | 2018-06-27 11:57 | P.CNPUL ---
History of Present Illness Consult date: 06/27/18 Requesting physician: Abad Vaca Reason for consult: abnormal CXR/CT Chief complaint: Febrile illness History of present illness: This is a very pleasant 73-year-old gentleman who follows with Dr. Samuel as his primary care physician. He has a history of coronary artery disease with previous stent placement, gastroesophageal reflux disease, chronic obstructive pulmonary disease and is a former smoker. The patient also has severe rheumatoid arthritis and has had multiple joint replacements including a right total shoulder and a total left knee. His knee was placed about 15 years ago. He presented here to the hospital in May of this year with a septic joint positive for MRSA. He subsequently undergone surgery and had a spacer placed. Following that he was in the intensive care unit on the mechanical ventilator with evidence of congestive heart failure. He was subsequently extubated and recovered and was transferred to [facility] on the [place] for continued rehabilitation and IV antibiotics on 06/17/2018. He was brought back here to the emergency room yesterday for a 3 day history of fevers with a T-max of 102.2. Chest x-ray revealed consolidation and thickening of the right lower lobe. Subsequent computed tomography scan of the chest revealed a loculated large right pleural effusion in the posterior lung field. There is moderate adjacent pulmonary infiltrate and atelectasis. Similar infiltrate of the left lung base. Empyema is within the differential. He is seen today in consultation on the regular medical floor. He is awake and alert in no acute distress. He has been afebrile. He is maintaining good O2 saturations in the 90s on 2 L per minute per nasal cannula. He denies any worsening shortness of breath. No cough or congestion. No hemoptysis. White count 11.1. Hemoglobin 11.0. Creatinine 0.77. He is currently on vancomycin and Levaquin. Review of Systems Constitutional: Reports fever, Reports malaise, Reports weakness Eyes: denies blurred vision, denies decreased vision Ears: deny: decreased hearing, tinnitus Ears, nose, mouth and throat: Denies headache, Denies sore throat Cardiovascular: Denies chest pain, Denies shortness of breath Respiratory: Reports home oxygen, Denies cough Gastrointestinal: Denies abdominal pain, Denies diarrhea, Denies nausea, Denies vomiting Genitourinary: Reports as per HPI Musculoskeletal: Reports gait dysfunction, Reports limitation of motion Musculoskeletal: left: knee pain, knee stiffness, knee swelling Integumentary: Denies pruritus, Denies rash Neurological: Denies numbness, Denies weakness Psychiatric: Denies anxiety, Denies depression Endocrine: Denies fatigue, Denies weight change Hematologic/Lymphatic: Reports as per HPI Allergic/Immunologic: Reports as per HPI Past Medical History Past Medical History: Coronary Artery Disease (CAD), COPD, GERD/Reflux, Hyperlipidemia, Pneumonia, Rheumatoid Arthritis (RA) Additional Past Medical History / Comment(s): History of pancreatitis, 2012 past medical record documents viral pericarditis but pt denies, gastritis, has home O2 at only but has not been using. History of Any Multi-Drug Resistant Organisms: MRSA Date of last positivie culture/infection: 06/12/18 MDRO Source:: Blood, left knee wound culture Past Surgical History: Heart Catheterization With Stent (History of heart cath in November 2016 with a stent placed to his right coronary artery for a 80-90% stenosis to his RCA.), Joint Replacement, Orthopedic Surgery Additional Past Surgical History / Comment(s): Total L knee arthroplasty with a spacer in place, R total shoulder replaced, L ankle ORIF d/t fracture, EGD, left rotator cuff repair. right ankle sx Past Anesthesia/Blood Transfusion Reactions: No Reported Reaction Additional Past Anesthesia/Blood Transfusion Reaction / Comment(s): Pt states he has never recieved blood. Date of Last Stent Placement:: 12/10/16 Past Psychological History: No Psychological Hx Reported Smoking Status: Former smoker (Quit smoking in 2015.) Past Alcohol Use History: None Reported Additional Past Alcohol Use History / Comment(s): Patient was a smoker one to one and half packs per day for 40+ years and quit 2 years ago when he had cardiac stents done. He uses a synthetic marijuana at nighttime only for his arthritis to help him sleep. He denies any other street drug use, alcohol use. 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 He lives at home with his . Past Drug Use History: None Reported - Past Family History Sister(s) Family Medical History: Cancer Additional Family Medical History / Comment(s): pt's father had ra, mother had 16 children was healthy most of her life age 93 from dementia. Mother Family Medical History: Dementia Father Family Medical History: Rheumatoid Arthritis (RA) Medications and Allergies Home Medications Medication Instructions Recorded Confirmed Type Folic Acid 1 mg PO DAILY 01/12/18 06/26/18 History Aspirin 81 mg PO DAILY chew 06/17/18 06/26/18 Rx Atorvastatin [Lipitor] 40 mg PO HS tab 06/17/18 06/26/18 Rx Famotidine [Pepcid] 20 mg PO DAILY tab 06/17/18 06/26/18 Rx Furosemide [Lasix] 40 mg PO DAILY #30 tablet 06/17/18 06/26/18 Rx Ipratropium-Albuterol Nebulize 3 ml INHALATION RT-QID ampul.neb 06/17/18 Rx [Duoneb 0.5 mg-3 mg/3 ml Soln] Vancomycin 1,750 mg IVPB Q12H #168 vial 06/17/18 06/26/18 Rx oxyCODONE HCL/ACETAMINOPHEN 2 tab PO Q6H PRN 3 Days #24 tablet 06/17/18 Rx [Percocet 10-325 mg] Acetaminophen [Tylenol] 325 mg PO Q8H PRN 06/26/18 06/26/18 History Ferrous Sulfate [Iron] 325 mg PO BID@0900,1700 06/26/18 06/26/18 History Hylands Restful Legs Pm 2 tab PO DAILY PRN 06/26/18 06/26/18 History Ibuprofen [Motrin] 400 mg PO BID PRN 06/26/18 06/26/18 History SODIUM CHLORIDE 0.9% 20mL VL 10 ml IVPB BID 06/26/18 06/26/18 History [Sodium Chloride] predniSONE 10 mg PO DAILY 06/26/18 06/26/18 History Allergies Allergy/AdvReac Type Severity Reaction Status Date / Time No Known Allergies Allergy Verified 06/26/18 20:44 Physical Exam Vitals: Vital Signs Temp Pulse Pulse Resp BP BP Pulse Ox 06/27/18 09:13 97.8 F 06/27/18 07:50 88 06/27/18 07:40 87 95 06/27/18 06:56 99.3 F 89 18 139/72 95 06/27/18 05:16 98.2 F 79 18 113/60 96 06/27/18 04:49 78 16 107/57 98 06/27/18 01:06 98.1 F 74 16 114/62 97 06/26/18 23:22 98.5 F 80 16 115/70 98 06/26/18 22:07 99.2 F 85 16 118/58 98 06/26/18 20:09 100.6 F H 98 24 114/68 93 L Intake and Output 06/26/18 06/27/18 06/27/18 22:59 06:59 14:59 Other: Voiding Method Urinal # Voids 0 2 Weight 81.647 kg 81.647 kg - Constitutional General appearance: average body habitus, no acute distress - EENT Eyes: EOMI, PERRLA ENT: hearing grossly normal Ears: bilateral: normal - Neck Neck: normal ROM Carotids: bilateral: upstroke normal Thyroid: bilateral: normal size - Respiratory Respiratory: right: diminished, rales - Cardiovascular Rhythm: regular Heart sounds: normal: S1, S2 - Gastrointestinal General gastrointestinal: normal bowel sounds - Integumentary Integumentary: normal turgor - Neurologic Neurologic: CNII-XII intact - Musculoskeletal The patient's left lower extremity remains in a brace. Recent antibiotic spacer. Results - Laboratory Findings CBC and BMP: 06/26/18 20:38 06/26/18 20:38 PT/INR, D-dimer PT 10.3 sec (9.0-12.0) 06/26/18 20:38 INR 1.1 (<1.2) 06/26/18 20:38 Abnormal lab findings: Abnormal Labs 06/26/18 06/26/18 06/26/18 20:38 20:38 21:09 WBC 11.1 H RBC 3.51 L Hgb 11.0 L Hct 33.8 L Plt Count 650 H Neutrophils # 8.6 H Glucose 100 H Calcium 8.3 L Total Protein 5.7 L Albumin 2.6 L Urine Protein 1+ H Urine Blood Trace H Urine RBC 6 H Amorphous Sediment Few H Urine Bacteria Occasional H Hyaline Casts 6 H Urine Mucus Moderate H - Diagnostic Findings Chest x-ray: image reviewed CT scan - chest: image reviewed Assessment and Plan Assessment: Impression: #1 Febrile illness suspect multifactorial in a patient found to have a right lower lung consolidation, suspect loculated empyema. The patient has also been on IV antibiotics for recent left knee removal and antibiotic spacer placed due to MRSA infection. Currently on vancomycin and Levaquin. PICC line in place. #2 Recent hospitalization for septic joint of MRSA in the left knee status post pacer placement. Remains in a brace. #3 Coronary artery disease with previous stent placement. #4 Chronic obstructive pulmonary disease with remote history of 40+ pack per day smoking history. #5 History of marijuana use. #6 Gastroesophageal reflux disease. #7 Severe rheumatoid arthritis most recently on methotrexate and prednisone. Plan: The patient was seen and evaluated by Dr. Manley. Chest x-ray and CAT scan were reviewed. He feels patient would benefit from a Pleurx catheter placement for his suspected empyema. This will be performed by interventional radiology. In the interim we'll continue with vancomycin and Levaquin. Continue bronchodilators. Lovenox for DVT prophylaxis. Pepcid for GI prophylaxis. We will continue to follow make further recommendations based on his clinical status. I, the cosigning physician, performed a history & physical examination of the patient. Lungs sounds echo is in the posterior bases more so on the right, diminished. Maintaining good O2 saturations in the 90s on 2 L/m per nasal cannula. I discussed the assessment and plan of care with my nurse practitioner , Yvette Palacios. I attest to the above note as dictated by her. Time with Patient: Greater than 30
[2018-06-27] MEDS: FOLIC ACID 1 MG TAB PO SCH (12:18)
[2018-06-27] MEDS: ENOXAPARIN 40 MG/0.4 ML SYRINGE SQ SCH (16:32)
[2018-06-27] MEDS: ASPIRIN 81 MG PO SCH (16:32)
[2018-06-27] MEDS: PIPERACILLIN-TAZOBACTAM 3.375 GM in DEXTROSE/WATER 1 50ML.BAG IVPB SCH (16:32)
[2018-06-27] MEDS: ATORVASTATIN 40 MG TAB PO SCH (20:32)
[2018-06-27] MEDS ORDERED: LEVOFLOXACIN 500MG-D5W PMX 500 MG in DEXTROSE/WATER 1 100ML.BAG IVPB SCH (23:00)
[2018-06-28] MEDS: PIPERACILLIN-TAZOBACTAM 3.375 GM in DEXTROSE/WATER 1 50ML.BAG IVPB SCH ×3 (00:24→15:43)
[2018-06-28] MEDS: oxyCODONE-APAP 10-325MG 1 EACH TAB PO SCH ×4 (02:15→20:00)
[2018-06-28] MEDS: SODIUM CHLORIDE 0.9% 1,000 ML IV SCH (06:46)
[2018-06-28] MEDS: IBUPROFEN 400 MG TAB PO PRN (07:04)
[2018-06-28] MEDS: IPRATROPIUM-ALBUTEROL 3 ML NEB INHALATION SCH ×4 (07:50→19:09)
[2018-06-28] MEDS: VANCOMYCIN 1,750 MG in SODIUM CHLORIDE 0.9% 500 ML IVPB SCH ×2 (07:56→20:00)
[2018-06-28] MEDS: FUROSEMIDE 40 MG TAB PO SCH (07:57)
[2018-06-28] MEDS: FAMOTIDINE 20 MG TAB PO SCH (07:57)
[2018-06-28] MEDS: FERROUS SULFATE 325 MG TAB PO SCH ×2 (07:57→15:44)
[2018-06-28] MEDS: predniSONE 10 MG TAB PO SCH (07:58)
[2018-06-28] MEDS: ASPIRIN 81 MG PO SCH (07:58)
[2018-06-28] MEDS: ENOXAPARIN 40 MG/0.4 ML SYRINGE SQ SCH (07:58)
[2018-06-28 08:42] LABS: Basophils % (A) 0 %; Eosinophils # (A) 0.2 k/uL (0-0.7); Eosinophils % (A) 2 %; HCT 36.4 % (39.0-53.0); HGB 11.3 gm/dL (13.0-17.5); Lymphocytes # (A) 2.8 k/uL (1.0-4.8); Lymphocytes % (A) 29 %; MCH 30.4 pg (25.0-35.0); MCHC 31.2 g/dL (31.0-37.0); MCV 97.4 fL (80.0-100.0); Mean Platelet Volume 6.8; Monocytes # (A) 0.5 k/uL (0-1.0); Monocytes % (A) 5 %; Neutrophils # (A) 5.9 k/uL (1.3-7.7); Neutrophils % (A) 62 %; Platelet Count 717 k/uL (150-450); RBC 3.74 m/uL (4.30-5.90); RDW 13.8 % (11.5-15.5); WBC 9.5 k/uL (3.8-10.6)
--- NOTE | 2018-06-28 08:47 | CONS ---
CONSULTATION DATE OF SERVICE: 06/27/2018. REASON FOR CONSULTATION: Fever. HISTORY OF PRESENT ILLNESS: The patient is a 73 -year-old male, recently admitted to this facility. The patient having been diagnosed with left knee septic arthritis. The patient is status post left knee arthrectomy and antibiotic spacer placement. Culture positive for MRSA in addition to the MRSA bacteremia. Blood cultures 06/12 has been negative. Subsequently, patient did get a PICC line and was currently getting vancomycin pharmacy to dose at [facility] on the [place]. Apparently the patient has been running a fever off and on while he was at rehab. With fever that has persisted over the last 3 days, the patient is complaining of feeling weak and tired and no energy. The patient did have some cough but not bringing up any sputum. Denies having any rigors and no choking on food. Patient denies having abdominal pain and no diarrhea. The patient denies having any problem with the PICC line and worsening pain to the left knee incision area which is currently healing. On arrival to the ER the patient did have fever of 100.6. The patient did have elevated white count of 11.1. The patient's UA was not significantly positive. Vancomycin was 19.8. Blood culture was obtained in addition to the urine culture. The patient did have a chest x-ray followed by a CT of the chest, which did show loculated large right pleural fluid collection in the posterior lung base. Levaquin was added. Infectious Disease was consulted for further recommendation regarding antibiotic therapy. REVIEW OF SYSTEMS: CONSTITUTIONAL: Positive for weakness along with the fever. EYES: No complaint. ENT: No complaint. RESPIRATORY: As per HPI. CARDIOVASCULAR: No complaint. GENITOURINARY: No complaint. GASTROINTESTINAL: No complaint. MUSCULOSKELETAL: As per HPI. PSYCHOLOGICAL: No complaint. ENDOCRINE: No complaint. NEUROLOGIC: No complaint. PAST MEDICAL HISTORY: Significant for MRSA bacteremia and left knee septic arthritis secondary to MRSA, coronary disease, COPD, gastroesophageal reflux disease, hyperlipidemia, pneumonia, rheumatoid arthritis, pancreatitis. PAST SURGICAL HISTORY: Heart catheterization with stent, knee replacement with recent left knee arthrectomy and spacer placement, right total shoulder replaced, left ankle ORIF, rotator cuff repair. SOCIAL HISTORY: Positive for smoking, quit back in 2016. No drinking or drug use. FAMILY HISTORY: Mother with history of dementia. Father history of rheumatoid arthritis. ALLERGIES: No known drug allergies. MEDICATIONS: Include the patient is currently on Tylenol, DuoNeb, aspirin, Lipitor, Lovenox, Pepcid, iron sulfate, Lasix, Motrin, Narcan, Zofran, Levaquin, vancomycin 1750 q.12h. EXAMINATION: Blood pressure 102/57 with a pulse of 86, temperature 97.9. He is 95% on room air. General description is an elderly male lying in bed in no distress. No tachypnea or accessory muscle of respiration use. HEENT: Shows pallor. No scleral icterus. Oral mucosa is moist. No pharyngeal erythema or thrush. NECK: Trachea central. No thyromegaly. LUNGS: Unlabored breathing. Decreased breath sounds in the base. No wheeze or crackle. HEART: S1, S2. Regular rate and rhythm. ABDOMEN: Soft. No tenderness. No guarding or rigidity. EXTREMITIES: No edema feet. MUSCULOSKELETAL SYSTEM: Left knee incision is currently intact. [place] were intact. No significant swelling, redness or any drainage. NEUROLOGICAL: The patient is awake, alert, oriented. Mood and affect normal. LABS: Hemoglobin 11, white count 11.1, BUN of 17, creatinine 0.77. Electrolytes have been normal. Liver enzymes are normal. Urine was not significantly positive. CT of the chest report as mentioned above. DIAGNOSTIC IMPRESSION AND PLAN: The patient admitted to the hospital with sepsis in a patient who did have a fever, did have elevated white count. The patient is currently getting adequate antibiotic therapy for his underlying left knee septic arthritis with MRSA now with evidence of a loculated right-sided pleural effusion with concern for possible empyema. The patient has been on good gram-positive coverage, concern likely for a gram-negative pathogen. PLAN: 1. Discontinue Levaquin. 2. Will start the patient on Zosyn 3.375 g q.8. 3. Vancomycin, pharmacy to dose target of 15. 4. Await possible thoracotomy for this empyema and fluid should be sent for culture. 5. Depending upon clinical response and culture, antibiotic will be further adjusted; however, as the patient is known to Dr. Paul the patient is signed out to him on Friday. MMODL / IJN: [id number] /
[2018-06-28 08:58] LABS: ALT 28 U/L (21-72); AST 28 U/L (17-59); Albumin 2.6 g/dL (3.5-5.0); Alkaline Phosphatase 85 U/L (38-126); Anion Gap 9 mmol/L; Blood Urea Nitrogen 13 mg/dL (9-20); Calcium 8.1 mg/dL (8.4-10.2); Carbon Dioxide 26 mmol/L (22-30); Chloride 103 mmol/L (98-107); Glucose 111 mg/dL (74-99); Potassium 3.9 mmol/L (3.5-5.1); Sodium 138 mmol/L (137-145); Total Bilirubin 0.6 mg/dL (0.2-1.3)
--- NOTE | 2018-06-28 09:12 | P.PN ---
Subjective Progress Note Date: 06/28/18 Principal diagnosis: Loculated right pleural effusion, rheumatoid arthritis, recent left knee septic arthroplasty, positive blood cultures and left knee cultures positive for MRSA, COPD with home oxygen use, history of pneumonia in 2017, history of pancreatitis , history of coronary artery disease with previous stent placement to his right coronary artery, GERD, hyperlipidemia and a remote history of nicotine dependence which he quit 2015. The patient is lying in bed in no acute distress. He is alert and oriented 3. Currently rates his pain 3 out of 10 on the pain scale 2 his left knee. Left knee immobilizer remains in place. T-max temperature in the last 24 hours is 101.1F. He denies any nausea or vomiting. He remains with oxygen standby current oxygen saturations are 93% on room air. He is achieving 1850 mL on his incentive spirometry. Vancomycin and Zosyn infusing per PICC line, managed by Dr. Paul from infectious disease. Objective - Vital Signs Vital signs: Vital Signs Temp 100 F H 06/28/18 07:54 Pulse 88 06/28/18 08:03 Resp 20 06/28/18 07:24 BP 125/68 06/28/18 07:24 Pulse Ox 93 L 06/28/18 07:24 Intake & Output 06/27/18 06/28/18 06/28/18 18:59 06:59 18:59 Intake Total 500 300 200 Balance 500 300 200 Intake: Oral 500 300 200 Other: Voiding Method Urinal Urinal # Voids 1 2 - Constitutional General appearance: Present: cooperative, no acute distress, obese - Respiratory Details: Lung sounds with scattered expiratory wheezes, few scattered crackles, diminished to his bilateral bases right greater than left. Respirations are symmetrical and nonlabored. Oxygen saturation are 93% on room air. He is achieving 1850 mL on his incentive spirometry. - Cardiovascular Details: Regular rhythm and rate. S1 and S2 present, negative for S3, gallop or murmur. No edema present. Peripheral pulses palpable. Left antecubital PICC line in place and functioning. - Gastrointestinal Gastrointestinal Comment(s): Abdomen is soft, nontender and nondistended. Active bowel sounds to all 4 abdominal quadrants. Passing flatus. Tolerating oral intake. No guarding or rigidity. - Genitourinary Genitourinary Comment(s): Voiding clear yellow urine. - Integumentary Integumentary Comment(s): Skin is warm and dry. Left shoulder incision clean and dry and approximated. No drainage or redness present. Left knee incision clean and dry and approximated. [place] intact. No drainage or redness present. - Neurologic Neurologic: Present: CNII-XII intact - Musculoskeletal Musculoskeletal: Present: generalized weakness, left sided weakness (Left leg immobilizer in place, remains nonweightbearing to his left leg.) - Psychiatric Psychiatric: Present: A&O x's 3, appropriate affect, intact judgment & insight - Allied health notes Allied health notes reviewed: nursing - Labs CBC & Chem 7: 06/28/18 08:25 06/28/18 08:25 Labs: Abnormal Lab Results - Last 24 Hours (Table) 06/28/18 06/28/18 Range/Units 08:25 08:25 RBC 3.74 L (4.30-5.90) m/uL Hgb 11.3 L (13.0-17.5) gm/dL Hct 36.4 L (39.0-53.0) % Plt Count 717 H (150-450) k/uL Glucose 111 H (74-99) mg/dL Calcium 8.1 L (8.4-10.2) mg/dL Total Protein 6.0 L (6.3-8.2) g/dL Albumin 2.6 L (3.5-5.0) g/dL Microbiology - Last 24 Hours (Table) 06/26/18 21:09 Urine Culture - Final Urine,Voided 06/26/18 20:38 Blood Culture - Preliminary Blood No Growth after 24 hours Assessment and Plan (1) History of pneumonia Current Visit: Yes Status: Acute Code(s): Z87.01 - PERSONAL HISTORY OF PNEUMONIA (RECURRENT) SNOMED Code(s): 435780007 (2) History of septic arthritis Current Visit: Yes Status: Acute Code(s): Z87.39 - PERSONAL HISTORY OF DISEASES OF THE MS SYS AND CONN TISS SNOMED Code(s): 516782182 (3) MRSA (methicillin resistant staph aureus) culture positive Current Visit: Yes Status: Acute Code(s): Z22.322 - CARRIER OR SUSPECTED CARRIER OF METHICILLIN RESIS STAPH SNOMED Code(s): 139089706 (4) Loculated pleural effusion Current Visit: Yes Status: Acute Code(s): J90 - PLEURAL EFFUSION, NOT ELSEWHERE CLASSIFIED SNOMED Code(s): 075388984 (5) Pleural effusion on right Current Visit: Yes Status: Acute Code(s): J90 - PLEURAL EFFUSION, NOT ELSEWHERE CLASSIFIED SNOMED Code(s): 98628771 (6) Bacteremia Current Visit: No Status: Acute Code(s): R78.81 - BACTEREMIA SNOMED Code(s ): 9470147 (7) COPD (chronic obstructive pulmonary disease) Current Visit: No Status: Acute Code(s): J44.9 - CHRONIC OBSTRUCTIVE PULMONARY DISEASE, UNSPECIFIED SNOMED Code(s): 08407014 (8) History of pancreatitis Current Visit: No Status: Acute Code(s): Z87.19 - PERSONAL HISTORY OF OTHER DISEASES OF THE DIGESTIVE SYSTEM SNOMED Code(s): 15238957204765 (9) Rheumatoid arteritis Current Visit: No Status: Acute Code(s): I00 - RHEUMATIC FEVER WITHOUT HEART INVOLVEMENT SNOMED Code(s): 455496289 Plan: 1. Encourage use of incentive spirometry every hour while awake. 2. Interventional radiology consult pending for placement of right pleural pigtail catheter placement. Once the pigtail catheter is placed we will start alteplase pleural installations. 3. Antibiotic management per infectious disease recommendations. 4. We will follow his labs and chest x-rays daily. 5. Medical management recommendations per primary care service. 6. More recommendations to follow based on patient's clinical course. Time with Patient: Less than 30
--- NOTE | 2018-06-28 11:47 | P.PN ---
Subjective Progress Note Date: 06/28/18 This is a very pleasant 73-year-old gentleman who follows with Dr. Samuel as his primary care physician. He has a history of coronary artery disease with previous stent placement, gastroesophageal reflux disease, chronic obstructive pulmonary disease and is a former smoker. The patient also has severe rheumatoid arthritis and has had multiple joint replacements including a right total shoulder and a total left knee. His knee was placed about 15 years ago. He presented here to the hospital in May of this year with a septic joint positive for MRSA. He subsequently undergone surgery and had a spacer placed. Following that he was in the intensive care unit on the mechanical ventilator with evidence of congestive heart failure. He was subsequently extubated and recovered and was transferred to [facility] [place] the [place] for continued rehabilitation and IV antibiotics on 06/17/2018. He was brought back here to the emergency room yesterday for a 3 day history of fevers with a T-max of 102.2. Chest x-ray revealed consolidation and thickening of the right lower lobe. Subsequent computed tomography scan of the chest revealed a loculated large right pleural effusion in the posterior lung field. There is moderate adjacent pulmonary infiltrate and atelectasis. Similar infiltrate of the left lung base. Empyema is within the differential. He is seen today in consultation on the regular medical floor. He is awake and alert in no acute distress. He has been afebrile. He is maintaining good O2 saturations in the 90s on 2 L per minute per nasal cannula. He denies any worsening shortness of breath. No cough or congestion. No hemoptysis. White count 11.1. Hemoglobin 11.0. Creatinine 0.77. He is currently on vancomycin and Levaquin. On 06/28/2018, the patient is doing well. He is hemodynamically stable. He still having on and off fever which is suspected to be related to the empyema and a right chest. Intervention radiology was consulted and the patient will have a pigtail catheter inserted tomorrow. He remains on the same antibiotic coverage. White cell count is at 9.5. No nausea. No vomiting. No diarrhea. No altered mentation. The blood culture has been negative thus far. Objective - Vital Signs Vital signs: Vital Signs Temp 98.8 F 06/28/18 09:50 Pulse 88 06/28/18 08:03 Resp 20 06/28/18 07:24 BP 125/68 06/28/18 07:24 Pulse Ox 93 L 06/28/18 07:24 Intake & Output 06/27/18 06/28/18 06/28/18 18:59 06:59 18:59 Intake Total 500 300 200 Balance 500 300 200 Intake: Oral 500 300 200 Other: Voiding Method Urinal Urinal Urinal # Voids 1 2 - Exam - Constitutional General appearance: average body habitus, no acute distress - EENT Eyes: EOMI, PERRLA ENT: hearing grossly normal Ears: bilateral: normal - Neck Neck: normal ROM Carotids: bilateral: upstroke normal Thyroid: bilateral: normal size - Respiratory Respiratory: right: diminished, rales - Cardiovascular Rhythm: regular Heart sounds: normal: S1, S2 - Gastrointestinal General gastrointestinal: normal bowel sounds - Integumentary Integumentary: normal turgor - Neurologic Neurologic: CNII-XII intact - Musculoskeletal The patient's left lower extremity remains in a brace. Recent antibiotic spacer. - Labs CBC & Chem 7: 06/28/18 08:25 06/28/18 08:25 Labs: Abnormal Lab Results - Last 24 Hours (Table) 06/28/18 06/28/18 Range/Units 08:25 08:25 RBC 3.74 L (4.30-5.90) m/uL Hgb 11.3 L (13.0-17.5) gm/dL Hct 36.4 L (39.0-53.0) % Plt Count 717 H (150-450) k/uL Glucose 111 H (74-99) mg/dL Calcium 8.1 L (8.4-10.2) mg/dL Total Protein 6.0 L (6.3-8.2) g/dL Albumin 2.6 L (3.5-5.0) g/dL Microbiology - Last 24 Hours (Table) 06/26/18 21:09 Urine Culture - Final Urine,Voided 06/26/18 20:38 Blood Culture - Preliminary Blood No Growth after 24 hours Assessment and Plan Plan: Impression: #1 complicated empyema/parapneumonic effusion involving the right lung. The patient has a large pocket of fluid with a surrounding rind that needs to be drained BRIAN. We have placed a consultation for interventional radiology for a pigtail catheter insertion. Hemodynamically stable. Running a low-grade fever. The patient has also been on IV antibiotics for recent left knee removal and antibiotic spacer placed due to MRSA infection. Currently on vancomycin and Levaquin. PICC line in place. #2 Recent hospitalization for septic joint of MRSA in the left knee status post pacer placement. Remains in a brace. #3 Coronary artery disease with previous stent placement. #4 Chronic obstructive pulmonary disease with remote history of 40+ pack per day smoking history. #5 History of marijuana use. #6 Gastroesophageal reflux disease. #7 Severe rheumatoid arthritis most recently on methotrexate and prednisone. Plan Awaiting INR to insert a pigtail catheter. Continue same antibiotic coverage. May need are TPA if the drainage is not complete revealed the pigtail. We'll continue to follow make further recommendations based on her progress.
[2018-06-28] MEDS: FOLIC ACID 1 MG TAB PO SCH (13:26)
--- NOTE | 2018-06-28 14:50 | P.PN ---
Subjective Progress Note Date: 06/28/18 Fletcher Sanabria is a 73-year-old male who was recently admitted to [facility] due to left knee septic arthroplasty, blood culture and left knee cultures were positive for MRSA patient was seen by infectious disease Dr. Paul he was started on IV vancomycin he was discharged to [facility] on the [facility] to complete his IV antibiotic course. Patient continued to have episodes of elevated temperature up to 102.2 despite IV antibiotic and multiple medication to control his fever, at that point patient was sent back to [facility] emergency room for reevaluation. Chest x-ray was done and revealed evidence of pleural thickening and the possibility of empyema should be considered, computed tomography scan of the chest was done in the emergency room and revealed evidence of loculated large right pleural effusion, with adjacent pulmonary infiltrate. IV Levaquin was added to regimen and patient was admitted to medical floor, pulmonary consultation, infectious disease consultation, and thoracic surgery consultation were requested. On 06/28/2018 patient is alert and oriented 3 in no apparent distress complaining of shortness of breath with activity complaining of cough otherwise no complaints at this time Objective - Vital Signs Vital signs: Vital Signs Temp 98.8 F 06/28/18 09:50 Pulse 92 06/28/18 12:10 Resp 20 06/28/18 07:24 BP 125/68 06/28/18 07:24 Pulse Ox 93 L 06/28/18 07:24 Intake & Output 06/27/18 06/28/18 06/28/18 18:59 06:59 18:59 Intake Total 500 300 200 Balance 500 300 200 Intake: Oral 500 300 200 Other: Voiding Method Urinal Urinal Urinal # Voids 1 2 - Exam In general patient is alert and oriented 3 in no apparent distress HEENT head normocephalic and atraumatic Neck is supple no JVD no goiter no lymphadenopathy no carotid bruit Chest exam reveals a few scattered crackles no wheezing Cardiac exam reveals regular heart sounds no gallops no murmurs Abdomen is soft nontender no organomegaly with normal bowel sounds Extremity exam reveals no edema, left knee with brace on, no cyanosis or clubbing Neurological examination reveals no gross focal deficit - Labs CBC & Chem 7: 06/28/18 08:25 06/28/18 08:25 Labs: Abnormal Lab Results - Last 24 Hours (Table) 06/28/18 06/28/18 Range/Units 08:25 08:25 RBC 3.74 L (4.30-5.90) m/uL Hgb 11.3 L (13.0-17.5) gm/dL Hct 36.4 L (39.0-53.0) % Plt Count 717 H (150-450) k/uL Glucose 111 H (74-99) mg/dL Calcium 8.1 L (8.4-10.2) mg/dL Total Protein 6.0 L (6.3-8.2) g/dL Albumin 2.6 L (3.5-5.0) g/dL Microbiology - Last 24 Hours (Table) 06/26/18 21:09 Urine Culture - Final Urine,Voided 06/26/18 20:38 Blood Culture - Preliminary Blood No Growth after 24 hours Assessment and Plan Plan: #1 febrile illness with leukocytosis, possibly related to pneumonia with empyema , at this time IV Levaquin was added to her regimen, pulmonary consultation and infectious disease consultation were requested, also thoracic surgery consultation was requested. Pulmonary are planning for pigtail catheter placement tomorrow. #2 recent admission for left knee septic arthroplasty, with sepsis, at that time blood culture and knee culture were positive for MRSA will continue IV vancomycin, Dr. Paul consult was requested. #3 history of coronary artery disease stable at this time patient denies any chest pain, he denies any shortness of breath at this time #4 previous history of pancreatitis. #5 known history of rheumatoid arthritis, patient was on methotrexate in the past however this is on hold at this time due to acute infection since his last admission. #6 history of gastroesophageal reflux disease #7 underlying history of hyperlipidemia maintained on Lipitor. At this time plan is to continue with current antibiotic Levaquin and IV vancomycin Awaiting input from pulmonary and thoracic surgery Medications reviewed and reordered, will follow closely.
[2018-06-28] MEDS: ATORVASTATIN 40 MG TAB PO SCH (20:00)
--- NOTE | 2018-06-28 22:50 | PN ---
PROGRESS NOTE DATE OF SERVICE: 06/28/2018. REASON FOR FOLLOWUP: 1. Right-sided loculated fluid/empyema. 2. Left knee septic arthritis. INTERVAL HISTORY: The patient is currently afebrile. He seems to be breathing comfortably. Denies significant chest pain. Occasional cough. No abdominal pain, or any worsening pain to the left knee area. PHYSICAL EXAMINATION: Blood pressure 125/68 with a pulse of 83, temperature 98.2. He is 94% on room air. General description is an elderly male lying in bed in no distress. Respiratory system: Unlabored breathing with decreased breath sounds in the bases. No wheeze. Heart S1, S2. Regular rate and rhythm. Abdomen soft, no tenderness. LAB: Hemoglobin is 11.8, white count 9.5 with a BUN of 13, creatinine 0.86. Blood count has been normal. Blood culture has been negative so far. DIAGNOSTIC IMPRESSION AND PLAN: 1. Patient with admission to the hospital with fever with evidence of loculated fluid. Radiology to place a pigtail catheter at which time fluid should be sent for cultures. The patient is currently covered with Zosyn and vancomycin. That will continue. 2. Patient with left knee septic arthritis, MRSA, currently covered with vancomycin to continue. Dr. Paul will follow the patient as of tomorrow to whom the patient is known. MMODL / IJN: [id number] /
[2018-06-29] MEDS: PIPERACILLIN-TAZOBACTAM 3.375 GM in DEXTROSE/WATER 1 50ML.BAG IVPB SCH ×4 (00:16→23:38)
[2018-06-29] MEDS: oxyCODONE-APAP 10-325MG 1 EACH TAB PO SCH ×4 (01:53→20:43)
[2018-06-29] MEDS: SODIUM CHLORIDE 0.9% 1,000 ML IV SCH (04:54)
[2018-06-29] MEDS ORDERED: VANCOMYCIN TROUGH DUE 1 EACH MISC MISCELLANE ONE (07:00)
[2018-06-29] MEDS: IPRATROPIUM-ALBUTEROL 3 ML NEB INHALATION SCH ×5 (07:40→20:02)
--- NOTE | 2018-06-29 07:53 | P.PN ---
Subjective Progress Note Date: 06/29/18 Principal diagnosis: Loculated right pleural effusion. History of rheumatoid arthritis, recent left knee septic arthroplasty with blood cultures and knee cultures positive for MRSA , COPD with home oxygen use, pneumonia and 2017, pancreatitis, coronary artery disease with previous stent placement to his RCA, GERD, hyperlipidemia, and previous tobacco dependence, quit in 2016. Patient is currently sitting up in bed in no acute distress. Denies shortness of breath, does complain of pain in his left knee which does get relieved with pain medication. No new complaints. Awaiting placement of right-sided pigtail catheter by interventional radiology for installation of alteplase. Objective - Vital Signs Vital signs: Vital Signs Temp 98.9 F 06/29/18 06:29 Pulse 100 06/29/18 07:40 Resp 18 06/29/18 06:29 BP 121/66 06/29/18 06:29 Pulse Ox 97 06/29/18 06:29 Intake & Output 06/28/18 06/29/18 06/29/18 18:59 06:59 18:59 Intake Total 200 Balance 200 Intake: Oral 200 Other: Voiding Method Urinal # Voids 7 1 - Constitutional General appearance: Present: cooperative, no acute distress - Respiratory Details: Lungs sounds diminished bilaterally, right greater than left. Respirations even , nonlabored. Currently on 2 L nasal cannula with oxygen saturation 97%. - Cardiovascular Details: S1, S2 present. Regular rate and rhythm. Palpable peripheral pulses bilaterally. No edema present. No calf pain or tenderness noted. - Gastrointestinal Gastrointestinal Comment(s): Abdomen soft, nontender, nondistended. Active bowel sounds 4 quadrants. Tolerating diet. - Genitourinary Genitourinary Comment(s): Continues to void clear, yellow urine. - Integumentary Integumentary Comment(s): Skin is warm and dry with evidence of good perfusion. - Neurologic Neurologic: Present: CNII-XII intact - Musculoskeletal Musculoskeletal Comment(s): Leg immobilizer present to left lower extremity. Crutches at the bedside. Musculoskeletal: Present: strength equal bilaterally - Psychiatric Psychiatric: Present: A&O x's 3, appropriate affect, intact judgment & insight - Allied health notes Allied health notes reviewed: nursing - Labs CBC & Chem 7: 06/28/18 08:25 06/28/18 08:25 Labs: Abnormal Lab Results - Last 24 Hours (Table) 06/28/18 06/28/18 Range/Units 08:25 08:25 RBC 3.74 L (4.30-5.90) m/uL Hgb 11.3 L (13.0-17.5) gm/dL Hct 36.4 L (39.0-53.0) % Plt Count 717 H (150-450) k/uL Glucose 111 H (74-99) mg/dL Calcium 8.1 L (8.4-10.2) mg/dL Total Protein 6.0 L (6.3-8.2) g/dL Albumin 2.6 L (3.5-5.0) g/dL Microbiology - Last 24 Hours (Table) 06/26/18 20:38 Blood Culture - Preliminary Blood No Growth after 48 hours Assessment and Plan (1) History of pneumonia Current Visit: Yes Status: Acute Code(s): Z87.01 - PERSONAL HISTORY OF PNEUMONIA (RECURRENT) SNOMED Code(s): 884428602 (2) History of septic arthritis Current Visit: Yes Status: Acute Code(s): Z87.39 - PERSONAL HISTORY OF DISEASES OF THE MS SYS AND CONN TISS SNOMED Code(s): 422952920 (3) Loculated pleural effusion Current Visit: Yes Status: Acute Code(s): J90 - PLEURAL EFFUSION, NOT ELSEWHERE CLASSIFIED SNOMED Code(s): 183615357 (4) Pleural effusion on right Current Visit: Yes Status: Acute Code(s): J90 - PLEURAL EFFUSION, NOT ELSEWHERE CLASSIFIED SNOMED Code(s): 58960413 (5) Bacteremia Current Visit: No Status: Resolved Code(s): R78.81 - BACTEREMIA SNOMED Code(s): 6159622 (6) COPD (chronic obstructive pulmonary disease) Current Visit: Yes Status: Chronic Code(s): J44.9 - CHRONIC OBSTRUCTIVE PULMONARY DISEASE, UNSPECIFIED SNOMED Code(s): 53494799 (7) History of pancreatitis Current Visit: No Status: Resolved Code(s): Z87.19 - PERSONAL HISTORY OF OTHER DISEASES OF THE DIGESTIVE SYSTEM SNOMED Code(s): 79217388810483 (8) Rheumatoid arthritis Current Visit: Yes Status: Chronic Code(s): M06.9 - RHEUMATOID ARTHRITIS, UNSPECIFIED SNOMED Code(s): 09036048 Plan: 1. Await placement of right-sided pigtail catheter by interventional radiology. Once place will begin instilling alteplase. 2. Encourage incentive spirometry use 10 times every hour while awake. 3. Antibiotics per infectious disease recommendations. 4. Increase activity, ambulate with crutches as tolerated. Nonweightbearing to left lower extremity. 5. We will follow labs and x-rays. 6. GI prophylaxis with Pepcid. DVT prophylaxis with Lovenox. 7. Bronchodilators per pulmonology. 8. Medical management per primary care service. 9. More recommendations to follow. Time with Patient: Greater than 30
[2018-06-29 08:39] LABS: Anion Gap 8 mmol/L; Blood Urea Nitrogen 11 mg/dL (9-20); Calcium 8.1 mg/dL (8.4-10.2); Carbon Dioxide 26 mmol/L (22-30); Chloride 105 mmol/L (98-107); Glucose 89 mg/dL (74-99); Potassium 4.3 mmol/L (3.5-5.1); Sodium 139 mmol/L (137-145)
[2018-06-29] MEDS: VANCOMYCIN 1,750 MG in SODIUM CHLORIDE 0.9% 500 ML IVPB SCH (08:50)
[2018-06-29] MEDS: IBUPROFEN 400 MG TAB PO PRN ×2 (08:51→23:37)
[2018-06-29] MEDS: ASPIRIN 81 MG PO SCH ×2 (08:52→13:51)
[2018-06-29] MEDS: FUROSEMIDE 40 MG TAB PO SCH (08:52)
[2018-06-29] MEDS: predniSONE 10 MG TAB PO SCH (08:52)
[2018-06-29] MEDS: FERROUS SULFATE 325 MG TAB PO SCH ×2 (08:52→16:28)
[2018-06-29] MEDS: FAMOTIDINE 20 MG TAB PO SCH (08:53)
[2018-06-29] MEDS: ENOXAPARIN 40 MG/0.4 ML SYRINGE SQ SCH ×2 (08:53→13:51)
[2018-06-29 09:39] LABS: Basophils % (A) 0 %; Eosinophils # (A) 0.2 k/uL (0-0.7); Eosinophils % (A) 2 %; HCT 33.2 % (39.0-53.0); HGB 10.8 gm/dL (13.0-17.5); Lymphocytes # (A) 2.9 k/uL (1.0-4.8); Lymphocytes % (A) 32 %; MCH 31.3 pg (25.0-35.0); MCHC 32.7 g/dL (31.0-37.0); MCV 95.8 fL (80.0-100.0); Monocytes # (A) 0.5 k/uL (0-1.0); Monocytes % (A) 5 %; Neutrophils # (A) 5.4 k/uL (1.3-7.7); Neutrophils % (A) 59 %; Platelet Count 664 k/uL (150-450); RBC 3.46 m/uL (4.30-5.90); RDW 13.8 % (11.5-15.5); WBC 9.2 k/uL (3.8-10.6)
[2018-06-29 09:50] LABS: ALT 25 U/L (21-72); AST 30 U/L (17-59); Albumin 2.6 g/dL (3.5-5.0); Alkaline Phosphatase 74 U/L (38-126); Total Bilirubin 0.6 mg/dL (0.2-1.3); Total Protein 5.8 g/dL (6.3-8.2)
[2018-06-29] MEDS: HYDROmorphone 1 MG/ML 1 ML SYRINGE IVP STA ×2 (10:34→13:42)
--- NOTE | 2018-06-29 11:01 | P.PN ---
Subjective Progress Note Date: 06/29/18 Fletcher Sanabria is a 73-year-old male who was recently admitted to [facility] due to left knee septic arthroplasty, blood culture and left knee cultures were positive for MRSA patient was seen by infectious disease Dr. Paul he was started on IV vancomycin he was discharged to [facility] on the [facility] to complete his IV antibiotic course. Patient continued to have episodes of elevated temperature up to 102.2 despite IV antibiotic and multiple medication to control his fever, at that point patient was sent back to [facility] emergency room for reevaluation. Chest x-ray was done and revealed evidence of pleural thickening and the possibility of empyema should be considered, computed tomography scan of the chest was done in the emergency room and revealed evidence of loculated large right pleural effusion, with adjacent pulmonary infiltrate. IV Levaquin was added to regimen and patient was admitted to medical floor, pulmonary consultation, infectious disease consultation, and thoracic surgery consultation were requested. On 06/28/2018 patient is alert and oriented 3 in no apparent distress complaining of shortness of breath with activity complaining of cough otherwise no complaints at this time On 06/29/2018 patient is alert and oriented 3 resting comfortably in bed. denies chest pain or shortness of breath. Patient is on 2 liters nasal cannula. Plan for pigtail placement to right lower lobe lung today. Patient denies nausea vomiting or diarrhea. Denies any urinary burning or frequency. Objective - Vital Signs Vital signs: Vital Signs Temp 98.9 F 06/29/18 06:29 Pulse 88 06/29/18 10:21 Resp 20 06/29/18 10:21 BP 121/66 06/29/18 06:29 Pulse Ox 94 L 06/29/18 10:21 Intake & Output 06/28/18 06/29/18 06/29/18 18:59 06:59 18:59 Intake Total 200 Output Total 700 Balance 200 -700 Intake: Oral 200 Output: Urine 700 Other: Voiding Method Urinal # Voids 7 1 - Exam In general patient is alert and oriented 3 in no apparent distress HEENT head normocephalic and atraumatic Neck is supple no JVD no goiter no lymphadenopathy no carotid bruit Chest exam reveals a few scattered crackles no wheezing Cardiac exam reveals regular heart sounds no gallops no murmurs Abdomen is soft nontender no organomegaly with normal bowel sounds Extremity exam reveals no edema, left knee with brace on, no cyanosis or clubbing Neurological examination reveals no gross focal deficit - Labs CBC & Chem 7: 06/29/18 08:02 06/29/18 08:02 Labs: Abnormal Lab Results - Last 24 Hours (Table) 06/29/18 06/29/18 Range/Units 08:02 08:02 RBC 3.46 L (4.30-5.90) m/uL Hgb 10.8 L (13.0-17.5) gm/dL Hct 33.2 L (39.0-53.0) % Plt Count 664 H (150-450) k/uL Calcium 8.1 L (8.4-10.2) mg/dL Total Protein 5.8 L (6.3-8.2) g/dL Albumin 2.6 L (3.5-5.0) g/dL Microbiology - Last 24 Hours (Table) 06/26/18 20:38 Blood Culture - Preliminary Blood No Growth after 48 hours Assessment and Plan Assessment: #1 febrile illness with leukocytosis, possibly related to pneumonia with empyema , at this time IV Levaquin was added to her regimen, pulmonary consultation and infectious disease consultation were requested, also thoracic surgery consultation was requested. Pulmonary are planning for pigtail catheter placement today. White blood cell 9.2. Temp of 101.1 yesterday. #3 history of coronary artery disease stable at this time patient denies any chest pain, he denies any shortness of breath at this time #4 previous history of pancreatitis. #5 known history of rheumatoid arthritis, patient was on methotrexate in the past however this is on hold at this time due to acute infection since his last admission. #6 history of gastroesophageal reflux disease #7 underlying history of hyperlipidemia maintained on Lipitor. DVT prophylaxis and GI prophylaxis Pepcid I performed an examination of the patient and discussed their management with the Nurse Practitioner. I have reviewed the Nurse Practitioner's notes and agree with the documented findings and plan of care
--- NOTE | 2018-06-29 11:42 | CT ---
EXAMINATION TYPE: CT chest tube insertion DATE OF EXAM: 06/29/2018 COMPARISON: CT chest 06/27/2018 HISTORY: chest tube insertion CT DLP: 924 mGycm The procedure is discussed with the patient, the risks, complications, benefits and alternatives, wer e discussed and any questions were answered. Informed consent was obtained. The patient is placed p ijeoma on the CT table, prepped and draped in the usual sterile fashion. Utilizing a 22-gauge Chiba needle access into the right pleural space was achieved and there is place ment of a guidewire. Subsequent conversion to an O.35 system and dilation [address] ment of an 8.5 Romansh drainage catheter. Sample was obtained and sent to pathology for analysis. All elements of maximal barrier and sterile technique were utilized. The patient remained stable thr oughout the procedure with no immediate postprocedural complication. IMPRESSION: 1. Successful CT guided right chest tube insertion.
--- NOTE | 2018-06-29 11:56 | P.PN ---
Subjective Progress Note Date: 06/29/18 Principal diagnosis: complicated empyema/parapneumonic effusion involving the right lung. This is a very pleasant 73-year-old gentleman who follows with Dr. Samuel as his primary care physician. He has a history of coronary artery disease with previous stent placement, gastroesophageal reflux disease, chronic obstructive pulmonary disease and is a former smoker. The patient also has severe rheumatoid arthritis and has had multiple joint replacements including a right total shoulder and a total left knee. His knee was placed about 15 years ago. He presented here to the hospital in May of this year with a septic joint positive for MRSA. He subsequently undergone surgery and had a spacer placed. Following that he was in the intensive care unit on the mechanical ventilator with evidence of congestive heart failure. He was subsequently extubated and recovered and was transferred to [facility] for continued rehabilitation and IV antibiotics on 06/17/2018. He was brought back here to the emergency room yesterday for a 3 day history of fevers with a T-max of 102.2. Chest x-ray revealed consolidation and thickening of the right lower lobe. Subsequent computed tomography scan of the chest revealed a loculated large right pleural effusion in the posterior lung field. There is moderate adjacent pulmonary infiltrate and atelectasis. Similar infiltrate of the left lung base. Empyema is within the differential. He is seen today in consultation on the regular medical floor. He is awake and alert in no acute distress. He has been afebrile. He is maintaining good O2 saturations in the 90s on 2 L per minute per nasal cannula. He denies any worsening shortness of breath. No cough or congestion. No hemoptysis. White count 11.1. Hemoglobin 11.0. Creatinine 0.77. He is currently on vancomycin and Levaquin. On 06/28/2018, the patient is doing well. He is hemodynamically stable. He still having on and off fever which is suspected to be related to the empyema and a right chest. Intervention radiology was consulted and the patient will have a pigtail catheter inserted tomorrow. He remains on the same antibiotic coverage. White cell count is at 9.5. No nausea. No vomiting. No diarrhea. No altered mentation. The blood culture has been negative thus far. On 06/29/2018 patient seen in follow-up on medical surgical floor. He is resting comfortably in bed, in no acute distress, he is awaiting his pigtail catheter placement for the right empyema/complicated parapneumonic effusion. He remains on IV antibiotics with Zosyn, and vancomycin. He is slightly diaphoretic, he did have fevers yesterday with the T-max of 101.1F at 07 20 4 in the morning. Lung sounds are positive for diminished breath sounds at bilateral bases and coarse rales. Remains on 2 L per nasal cannula with a pulse ox of 94%. These labs were reviewed, WBC is 9.2, hemoglobin is 10.8, electrolytes and renal profile are within normal limits. Blood and urine cultures show no growth. Objective - Vital Signs Vital signs: Vital Signs Temp 98.9 F 06/29/18 06:29 Pulse 104 H 06/29/18 11:22 Resp 20 06/29/18 10:21 BP 121/66 06/29/18 06:29 Pulse Ox 94 L 06/29/18 10:21 Intake & Output 06/28/18 06/29/18 06/29/18 18:59 06:59 18:59 Intake Total 200 550 Output Total 700 Balance 200 -150 Intake: Intake, IV Titration 550 Amount Piperacillin-Tazobactam 3 50 .375 gm In Dextrose/Water 1 50ml.bag @ 12.5 mls/hr IVPB Q8HR SURYA Rx#: [id number] Vancomycin 1,750 mg In 500 Sodium Chloride 0.9% 500 ml @ 167 mls/hr IVPB Q12H SURYA Rx#:[id number] Oral 200 Output: Urine 700 Other: Voiding Method Urinal # Voids 7 1 - Exam - Constitutional General appearance: average body habitus, no acute distress - EENT Eyes: EOMI, PERRLA ENT: hearing grossly normal Ears: bilateral: normal - Neck Neck: normal ROM Carotids: bilateral: upstroke normal Thyroid: bilateral: normal size - Respiratory Respiratory: right: diminished, rales - Cardiovascular Rhythm: regular Heart sounds: normal: S1, S2 - Gastrointestinal General gastrointestinal: normal bowel sounds - Integumentary Integumentary: normal turgor - Neurologic Neurologic: CNII-XII intact - Musculoskeletal The patient's left lower extremity remains in a brace. Recent antibiotic spacer. - Labs CBC & Chem 7: 06/29/18 08:02 09/17/18 08:02 Labs: Abnormal Lab Results - Last 24 Hours (Table) 06/29/18 06/29/18 Range/Units 08:02 08:02 RBC 3.46 L (4.30-5.90) m/uL Hgb 10.8 L (13.0-17.5) gm/dL Hct 33.2 L (39.0-53.0) % Plt Count 664 H (150-450) k/uL Calcium 8.1 L (8.4-10.2) mg/dL Total Protein 5.8 L (6.3-8.2) g/dL Albumin 2.6 L (3.5-5.0) g/dL Microbiology - Last 24 Hours (Table) 06/26/18 20:38 Blood Culture - Preliminary Blood No Growth after 48 hours Assessment and Plan Plan: #1 complicated empyema/parapneumonic effusion involving the right lung. The patient has a large pocket of fluid with a surrounding rind that needs to be drained BRIAN. We have placed a consultation for interventional radiology for a pigtail catheter insertion. Hemodynamically stable. Running a low-grade fever. The patient has also been on IV antibiotics for recent left knee removal and antibiotic spacer placed due to MRSA infection. Currently on vancomycin and Levaquin. PICC line in place. #2 Recent hospitalization for septic joint of MRSA in the left knee status post pacer placement. Remains in a brace. #3 Coronary artery disease with previous stent placement. #4 Chronic obstructive pulmonary disease with remote history of 40+ pack per day smoking history. #5 History of marijuana use. #6 Gastroesophageal reflux disease. #7 Severe rheumatoid arthritis most recently on methotrexate and prednisone. Plan Patient is awaiting placement of the right lung pigtail catheter drainage of a complicated parapneumonic effusion/empyema. CT surgery is following. Continue same antibiotic coverage. Continue GI and DVT prophylaxis, We'll continue to follow I performed a history & physical examination of the patient and discussed their management with my nurse practitioner, Yoselin Wiggins. I reviewed the nurse practitioner's note and agree with the documented findings and plan of care. Lung sounds are positive for bibasilar crackles. The findings and the impression was discussed with the patient. I attest to the documentation by the nurse practitioner. Time with Patient: Less than 30
[2018-06-29 12:56] LABS: Color,BF Yellow
[2018-06-29 12:57] LABS: Appearance,BF Cloudy
[2018-06-29 12:59] LABS: Mononuclear WBC,Body Fluid 2 %; Polynuclear WBC,Body Fluid 98 %; Total Cells Counted,Body Fluid 100
[2018-06-29] MEDS: FOLIC ACID 1 MG TAB PO SCH (13:51)
[2018-06-29] MEDS: VANCOMYCIN 2,000 MG in SODIUM CHLORIDE 0.9% 500 ML IVPB SCH (17:30)
[2018-06-29] MEDS: ATORVASTATIN 40 MG TAB PO SCH (20:47)
[2018-06-29 20:58] LABS: Total Protein, Body Fluid 1219 mg/dL
--- NOTE | 2018-06-29 22:54 | P.PN ---
Subjective Progress Note Date: 06/29/18 73-year-old male infectious disease service from his recent hospitalization which point in time he developed significant infection. Patient has a long-standing history of rheumatoid arthritis for about 25 years under the care of rheumatology with prednisone and infusions of methotrexate being done. Given the multiple infections methotrexate was placed on hold. On the last admission the patient evidence of extensive swelling to his left leg and he was left shoulder and he also had evidence of high-grade fevers and sepsis with leukocytosis. Purulent fluid from the left knee and left shoulder were found and the patient underwent surgical incision and drainage of both the sites. MRSA was isolated the patient was sent to rehab on intravenous antibiotic therapy with vancomycin. Patient now presents with 3 days of fever increasing shortness of breath and malaise. There is evidence of the extensive infiltration and thickening of the right lower lobe on x-ray. There is evidence of a large locular pleural effusion on the computed tomography scan. The patient is now status post pigtail catheter placement and fluid is been sent to the laboratory for cultures. Receiving respiratory treatments and oxygen therapy. Antibiotic therapy is with vancomycin and Zosyn that is started per the pulmonary service. Patient relates is feeling slightly better today. We'll have him back to rehab to complete his course of antibiotic therapy any further pulmonary interventions are being evaluated at this time. Objective - Vital Signs Vital signs: Vital Signs Temp 98.6 F 06/29/18 14:37 Pulse 92 06/29/18 20:12 Resp 16 06/29/18 20:12 BP 120/71 06/29/18 14:37 Pulse Ox 96 06/29/18 14:37 Intake & Output 06/29/18 06/29/18 06/30/18 06:59 18:59 06:59 Intake Total 1450 Output Total 1535 200 Balance -85 -200 Weight 81.647 kg Intake: Intake, IV Titration 1050 Amount Piperacillin-Tazobactam 3 50 .375 gm In Dextrose/Water 1 50ml.bag @ 12.5 mls/hr IVPB Q8HR [facility] Rx#: [id number] Vancomycin 1,750 mg In 500 Sodium Chloride 0.9% 500 ml @ 167 mls/hr IVPB Q12H [facility] Rx#:[id number] Vancomycin 2,000 mg In 500 Sodium Chloride 0.9% 500 ml @ 167 mls/hr IVPB Q12H [facility] Rx#:[id number] Oral 400 Output: Chest Tube Drainage 435 Chest Tube Right 435 Urine 1100 200 Other: Voiding Method Urinal # Voids 1 1 1 - Exam 73-year-old male who appears to be quite uncomfortable, but relates he is less short of breath and admission since the chest tube was placed. HEENT: Anicteric conjunctiva are pink and moist nasal mucosa grossly intact without significant lesions, there is no thrush. Neck: The neck is supple without significant lymphadenopathy or thyromegaly. Lungs: Symmetrical air entry with dullness and egophony to the right base few expiratory wheezes Heart: Regular rate and rhythm with an audible S1-S2, no S3 no S4. There is no significant murmur click or rub, PMI was nondisplaced. Abdomen: Positive bowel sounds soft and nontender without palpable masses or organomegaly. There was no guarding or rebound. Extremities: The upper extremities have excellent pulses they are symmetric, no significant petechiae or telangiectasia. No splinter hemorrhages were noted. The left knee shows evidence of the brace is in place. The significant swelling is improved. Purulent drainage is improved. Still has distinct tenderness with any attempts to range of motion. Neuro: Awake alert oriented to person place and time. There are no acute new gross focal sensory motor deficits. - Labs CBC & Chem 7: 06/29/18 08:02 06/29/18 08:02 Labs: Abnormal Lab Results - Last 24 Hours (Table) 06/29/18 06/29/18 Range/Units 08:02 08:02 RBC 3.46 L (4.30-5.90) m/uL Hgb 10.8 L (13.0-17.5) gm/dL Hct 33.2 L (39.0-53.0) % Plt Count 664 H (150-450) k/uL Calcium 8.1 L (8.4-10.2) mg/dL Total Protein 5.8 L (6.3-8.2) g/dL Albumin 2.6 L (3.5-5.0) g/dL Microbiology - Last 24 Hours (Table) 06/29/18 11:05 Gram Stain - Preliminary Pleural Fluid Body Fluid Culture - Preliminary 06/29/18 11:05 Fungal Culture - Preliminary Pleural Fluid 09/14/18 20:38 Blood Culture - Preliminary Blood No Growth after 48 hours Laboratory Results WBC 9.2 k/uL (3.8-10.6) 06/29/18 08:02 RBC 3.46 m/uL (4.30-5.90) L 06/29/18 08:02 Hgb 10.8 gm/dL (13.0-17.5) L 06/29/18 08:02 Hct 33.2 % (39.0-53.0) L 06/29/18 08:02 MCV 95.8 fL (80.0-100.0) 06/29/18 08:02 MCH 31.3 pg (25.0-35.0) 06/29/18 08:02 MCHC 32.7 g/dL (31.0-37.0) 06/29/18 08:02 RDW 13.8 % (11.5-15.5) 06/29/18 08:02 Plt Count 664 k/uL (150-450) H 06/29/18 08:02 Neutrophils % 59 % 06/29/18 08:02 Lymphocytes % 32 % 06/29/18 08:02 Monocytes % 5 % 06/29/18 08:02 Eosinophils % 2 % 06/29/18 08:02 Basophils % 0 % 06/29/18 08:02 Neutrophils # 5.4 k/uL (1.3-7.7) 06/29/18 08:02 Lymphocytes # 2.9 k/uL (1.0-4.8) 06/29/18 08:02 Monocytes # 0.5 k/uL (0-1.0) 06/29/18 08:02 Eosinophils # 0.2 k/uL (0-0.7) 06/29/18 08:02 Basophils # 0.0 k/uL (0-0.2) 06/29/18 08:02 PT 10.3 sec (9.0-12.0) 06/26/18 20:38 INR 1.1 (<1.2) 06/26/18 20:38 APTT 29.1 sec (22.0-30.0) 06/26/18 20:38 Sodium 139 mmol/L (137-145) 06/29/18 08:02 Potassium 4.3 mmol/L (3.5-5.1) 06/29/18 08:02 Chloride 105 mmol/L (98-107) 06/29/18 08:02 Carbon Dioxide 26 mmol/L (22-30) 06/29/18 08:02 Anion Gap 8 mmol/L 06/29/18 08:02 BUN 11 mg/dL (9-20) 06/29/18 08:02 Creatinine 0.81 mg/dL (0.66-1.25) 06/29/18 08:02 Est GFR (CKD-EPI)AfAm >90 (>60 ml/min/1.73 sqM) 06/29/18 08:02 Est GFR (CKD-EPI)NonAf 89 (>60 ml/min/1.73 sqM) 06/29/18 08:02 Glucose 89 mg/dL (74-99) 06/29/18 08:02 Plasma Lactic Acid Harsh 0.8 mmol/L (0.7-2.0) 06/26/18 20:38 Calcium 8.1 mg/dL (8.4-10.2) L 06/29/18 08:02 Total Bilirubin 0.6 mg/dL (0.2-1.3) 06/29/18 08:02 AST 30 U/L (17-59) 06/29/18 08:02 ALT 25 U/L (21-72) 06/29/18 08:02 Alkaline Phosphatase 74 U/L (38-126) 06/29/18 08:02 Total Protein 5.8 g/dL (6.3-8.2) L 06/29/18 08:02 Albumin 2.6 g/dL (3.5-5.0) L 06/29/18 08:02 Urine Color Yellow 06/26/18 21:09 Urine Appearance Cloudy (Clear) 06/26/18 21:09 Urine pH 6.0 (5.0-8.0) 06/26/18 21:09 Ur Specific [place] 1.022 (1.001-1.035) 06/26/18 21:09 Urine Protein 1+ (Negative) H 06/26/18 21:09 Urine Glucose (UA) Negative (Negative) 06/26/18 21:09 Urine Ketones Negative (Negative) 06/26/18 21:09 Urine Blood Trace (Negative) H 06/26/18 21:09 Urine Nitrite Negative (Negative) 06/26/18 21:09 Urine Bilirubin Negative (Negative) 06/26/18 21:09 Urine Urobilinogen <2.0 mg/dL (<2.0) 06/26/18 21:09 Ur Leukocyte Esterase Negative (Negative) 06/26/18 21:09 Urine RBC 6 /hpf (0-5) H 06/26/18 21:09 Urine WBC 3 /hpf (0-5) 06/26/18 21:09 Ur Squamous Epith Cells <1 /hpf (0-4) 06/26/18 21:09 Amorphous Sediment Few /hpf (None) H 06/26/18 21:09 Urine Bacteria Occasional /hpf (None) H 06/26/18 21:09 Hyaline Casts 6 /lpf (0-2) H 06/26/18 21:09 Urine Mucus Moderate /hpf (None) H 06/26/18 21:09 Fluid Source Pleural 06/29/18 11:05 Fluid Color Yellow 06/29/18 11:05 Fluid Appearance Cloudy 06/29/18 11:05 Fluid RBC 60 /uL 06/29/18 11:05 Fluid Nucleated Cells 4420 /uL 06/29/18 11:05 Fluid Polynuclear WBCs 98 % 06/29/18 11:05 Fluid Mononuclear WBCs 2 % 06/29/18 11:05 Body Fluid Glucose Source Pleural Fluid 06/29/18 11:05 Fluid Glucose <4 mg/dL 06/29/18 11:05 Body Fluid Protein Source Pleural Fluid 06/29/18 14:50 Fluid Total Protein 1219 mg/dL 06/29/18 14:50 Body Fluid LDH Source Pleural Fluid 06/29/18 11:05 Fluid LDH 65322 U/L 06/29/18 11:05 Body Fluid Amylase Source Pleural Fluid 06/29/18 11:05 Fluid Amylase 28 U/L 06/29/18 11:05 Vancomycin Trough 13.6 ug/mL 06/29/18 08:02 Random Vancomycin 19.8 ug/mL 06/26/18 20:38 Microbiology 06/26/18 20:38 Blood Blood Culture - Preliminary No Growth after 72 hours 06/29/18 11:05 Pleural Fluid Gram Stain - Preliminary 06/29/18 11:05 Pleural Fluid Body Fluid Culture - Preliminary 06/29/18 11:05 Pleural Fluid Fungal Culture - Preliminary 06/26/18 21:09 Urine,Voided Urine Culture - Final Assessment and Plan (1) Pleural effusion on right Current Visit: Yes Status: Acute Code(s): J90 - PLEURAL EFFUSION, NOT ELSEWHERE CLASSIFIED SNOMED Code(s): 04838237 (2) Rheumatoid arthritis Current Visit: Yes Status: Chronic Code(s): M06.9 - RHEUMATOID ARTHRITIS, UNSPECIFIED SNOMED Code(s): 53832005 (3) Septic arthritis of knee, left Narrative/Plan: 73-year-old male with a recent history of MRSA infection of his left knee that required surgical intervention also had evidence of bacteremia at that time. Once the bacteremia was cleared IV access was placed and the patient was sent to rehab to receive his course of intravenous antibiotic therapy with vancomycin. Now presents with evidence of empyema to the right chest. Pigtail catheter placed today and await culture results. May necessitate further antibiotic changes and may require surgical intervention if there is not further improvement. Patient fortunately is comfortable at this time. Tolerating vancomycin therapy well no evidence of any renal failure, will monitor anemia. Current Visit: Yes Status: Acute Code(s): M00.9 - PYOGENIC ARTHRITIS, UNSPECIFIED SNOMED Code(s): 393449854 (4) Injury of left rotator cuff Current Visit: Yes Status: Acute Code(s): S46.002A - UNSP INJ MUSC/TEND THE ROTATOR CUFF OF L SHOULDER, INIT SNOMED Code(s): 540065401
[2018-06-30] MEDS: oxyCODONE-APAP 10-325MG 1 EACH TAB PO SCH ×4 (02:01→20:12)
[2018-06-30] MEDS: SODIUM CHLORIDE 0.9% 1,000 ML IV SCH (04:49)
[2018-06-30] MEDS: VANCOMYCIN 2,000 MG in SODIUM CHLORIDE 0.9% 500 ML IVPB SCH ×2 (05:23→17:40)
[2018-06-30] MEDS: IPRATROPIUM-ALBUTEROL 3 ML NEB INHALATION SCH ×4 (07:31→19:48)
[2018-06-30] MEDS ORDERED: ALTEPLASE 10 MG in SODIUM CHLORIDE 0.9% 100 ML IRRIGATION ONE (08:00)
[2018-06-30] MEDS: ENOXAPARIN 40 MG/0.4 ML SYRINGE SQ SCH (08:16)
[2018-06-30] MEDS: PIPERACILLIN-TAZOBACTAM 3.375 GM in DEXTROSE/WATER 1 50ML.BAG IVPB SCH ×2 (08:16→15:18)
[2018-06-30] MEDS: predniSONE 10 MG TAB PO SCH (08:18)
[2018-06-30] MEDS: FUROSEMIDE 40 MG TAB PO SCH (08:18)
[2018-06-30] MEDS: FAMOTIDINE 20 MG TAB PO SCH (08:18)
[2018-06-30] MEDS: FERROUS SULFATE 325 MG TAB PO SCH ×2 (08:18→15:19)
[2018-06-30] MEDS: ASPIRIN 81 MG PO SCH (08:18)
[2018-06-30 08:30] LABS: Basophils % (A) 0 %; Eosinophils # (A) 0.2 k/uL (0-0.7); Eosinophils % (A) 2 %; HCT 36.4 % (39.0-53.0); HGB 11.7 gm/dL (13.0-17.5); Hypochromasia Slight; Lymphocytes # (A) 2.8 k/uL (1.0-4.8); Lymphocytes % (A) 29 %; MCH 31.3 pg (25.0-35.0); MCHC 32.2 g/dL (31.0-37.0); MCV 96.9 fL (80.0-100.0); Mean Platelet Volume 6.8; Monocytes # (A) 0.4 k/uL (0-1.0); Monocytes % (A) 4 %; Neutrophils # (A) 6.2 k/uL (1.3-7.7); Neutrophils % (A) 64 %; Platelet Count 722 k/uL (150-450); RBC 3.75 m/uL (4.30-5.90); RDW 13.8 % (11.5-15.5); WBC 9.7 k/uL (3.8-10.6)
[2018-06-30 08:53] LABS: ALT 18 U/L (21-72); AST 26 U/L (17-59); Albumin 2.7 g/dL (3.5-5.0); Alkaline Phosphatase 95 U/L (38-126); Anion Gap 9 mmol/L; Blood Urea Nitrogen 16 mg/dL (9-20); Calcium 8.1 mg/dL (8.4-10.2); Carbon Dioxide 26 mmol/L (22-30); Chloride 106 mmol/L (98-107); Glucose 128 mg/dL (74-99); Potassium 4.2 mmol/L (3.5-5.1); Sodium 141 mmol/L (137-145); Total Bilirubin 0.4 mg/dL (0.2-1.3)
--- NOTE | 2018-06-30 08:59 | XR ---
EXAMINATION TYPE: XR chest 1V portable DATE OF EXAM: 06/30/2018 COMPARISON: Prior chest x-ray 06/26/2018 HISTORY: Chest tube and pleural effusion TECHNIQUE: Single frontal view of the chest is obtained. FINDINGS: Interval placement of a right-sided chest tube. There is improved aeration at the right kathy ng base. No evident pneumothorax. Left-sided PICC line shows the distal tip overlying the superior ve na cava. Heart size is within normal limits. Persistent patchy bibasilar density noted. IMPRESSION: Interval chest tube placement. Probable basilar atelectasis, correlate to exclude pneumo kash.
[2018-06-30 09:09] LABS: Nucleated Cells, Body Fluid 44200 /uL; RBC, Body Fluid 600 /uL
--- NOTE | 2018-06-30 09:25 | P.PN ---
Subjective Progress Note Date: 06/30/18 Principal diagnosis: Loculated right pleural effusion. History of rheumatoid arthritis, recent left knee septic arthroplasty with blood cultures and knee cultures positive for MRSA , COPD with home oxygen use, pneumonia and 2017, pancreatitis, coronary artery disease with previous stent placement to his RCA, GERD, hyperlipidemia, and previous tobacco dependence, quit in 2016. POD #1 insertion of pigtail catheter by interventional radiology. Patient is currently sitting up in bed in no acute distress. Denies shortness of breath, does complain of pain in his left knee which does get relieved with pain medication. No new complaints. Right-sided pigtail catheter placed yesterday by interventional radiology. Objective - Vital Signs Vital signs: Vital Signs Temp 98.8 F 06/30/18 06:21 Pulse 80 06/30/18 07:46 Resp 18 06/30/18 06:21 BP 111/64 06/30/18 06:21 Pulse Ox 95 06/30/18 06:21 Intake & Output 06/29/18 06/30/18 06/30/18 18:59 06:59 18:59 Intake Total 1450 900 Output Total 1535 1400 100 Balance -85 -500 -100 Weight 81.647 kg Intake: Intake, IV Titration 1050 Amount Piperacillin-Tazobactam 3 50 .375 gm In Dextrose/Water 1 50ml.bag @ 12.5 mls/hr IVPB Q8HR [facility] Rx#: [id number] Vancomycin 1,750 mg In 500 Sodium Chloride 0.9% 500 ml @ 167 mls/hr IVPB Q12H [facility] Rx#:[id number] Vancomycin 2,000 mg In 500 Sodium Chloride 0.9% 500 ml @ 167 mls/hr IVPB Q12H [facility] Rx#:[id number] Oral 400 900 Output: Chest Tube Drainage 435 100 Chest Tube Right 435 100 Urine 1100 1400 Other: Voiding Method Urinal # Voids 1 0 - Constitutional General appearance: Present: cooperative, no acute distress - Respiratory Details: Lungs sounds diminished bilaterally. Respirations even, nonlabored. Currently on 2 L nasal cannula with oxygen saturation 95%. Able to achieve 9030-8951 mL on his incentive spirometry. Right sided pigtail catheter present, 500 mL milky fluid since placement. - Cardiovascular Details: S1, S2 present. Regular rate and rhythm. Palpable peripheral pulses bilaterally. No edema present. No calf pain or tenderness noted. - Gastrointestinal Gastrointestinal Comment(s): Abdomen soft, nontender, nondistended. Active bowel sounds 4 quadrants. Tolerating diet. - Genitourinary Genitourinary Comment(s): Continues to void clear, yellow urine. - Integumentary Integumentary Comment(s): Skin is warm and dry with evidence of good perfusion. Well-healed surgical incisions present to left shoulder and left knee. - Neurologic Neurologic: Present: CNII-XII intact - Musculoskeletal Musculoskeletal: Present: strength equal bilaterally - Psychiatric Psychiatric: Present: A&O x's 3, appropriate affect, intact judgment & insight - Allied health notes Allied health notes reviewed: nursing - Labs CBC & Chem 7: 06/30/18 07:49 06/30/18 07:49 Labs: Abnormal Lab Results - Last 24 Hours (Table) 06/29/18 06/29/18 06/30/18 Range/Units 08:02 08:02 07:49 RBC 3.46 L (4.30-5.90) m/uL Hgb 10.8 L (13.0-17.5) gm/dL Hct 33.2 L (39.0-53.0) % Plt Count 664 H (150-450) k/uL Glucose 128 H (74-99) mg/dL Calcium 8.1 L 8.1 L (8.4-10.2) mg/dL ALT 18 L (21-72) U/L Total Protein 5.8 L 6.0 L (6.3-8.2) g/dL Albumin 2.6 L 2.7 L (3.5-5.0) g/dL 06/30/18 Range/Units 07:49 RBC 3.75 L (4.30-5.90) m/uL Hgb 11.7 L (13.0-17.5) gm/dL Hct 36.4 L (39.0-53.0) % Plt Count 722 H (150-450) k/uL Glucose (74-99) mg/dL Calcium (8.4-10.2) mg/dL ALT (21-72) U/L Total Protein (6.3-8.2) g/dL Albumin (3.5-5.0) g/dL Microbiology - Last 24 Hours (Table) 09/14/18 20:38 Blood Culture - Preliminary Blood No Growth after 72 hours 06/29/18 11:05 Gram Stain - Preliminary Pleural Fluid Body Fluid Culture - Preliminary 06/29/18 11:05 Fungal Culture - Preliminary Pleural Fluid - Imaging and Cardiology Chest x-ray: report reviewed, image reviewed Assessment and Plan (1) History of pneumonia Current Visit: Yes Status: Acute Code(s): Z87.01 - PERSONAL HISTORY OF PNEUMONIA (RECURRENT) SNOMED Code(s): 282273117 (2) History of septic arthritis Current Visit: Yes Status: Acute Code(s): Z87.39 - PERSONAL HISTORY OF DISEASES OF THE MS SYS AND CONN TISS SNOMED Code(s): 663379803 (3) Loculated pleural effusion Current Visit: Yes Status: Acute Code(s): J90 - PLEURAL EFFUSION, NOT ELSEWHERE CLASSIFIED SNOMED Code(s): 493450823 (4) Pleural effusion on right Current Visit: Yes Status: Acute Code(s): J90 - PLEURAL EFFUSION, NOT ELSEWHERE CLASSIFIED SNOMED Code(s): 46653199 (5) Bacteremia Current Visit: No Status: Resolved Code(s): R78.81 - BACTEREMIA SNOMED Code(s): 2275814 (6) COPD (chronic obstructive pulmonary disease) Current Visit: Yes Status: Chronic Code(s): J44.9 - CHRONIC OBSTRUCTIVE PULMONARY DISEASE, UNSPECIFIED SNOMED Code(s): 02465400 (7) History of pancreatitis Current Visit: No Status: Resolved Code(s): Z87.19 - PERSONAL HISTORY OF OTHER DISEASES OF THE DIGESTIVE SYSTEM SNOMED Code(s): 38220041309427 (8) Rheumatoid arthritis Current Visit: Yes Status: Chronic Code(s): M06.9 - RHEUMATOID ARTHRITIS, UNSPECIFIED SNOMED Code(s): 28025910 Plan: 1. Right-sided pigtail catheter based yesterday by interventional radiology. Will instill alteplase today. 2. Encourage incentive spirometry use 10 times every hour while awake. 3. Antibiotics per infectious disease recommendations. 4. Increase activity, ambulate with crutches as tolerated. Nonweightbearing to left lower extremity. 5. We will follow labs and x-rays. 6. GI prophylaxis with Pepcid. DVT prophylaxis with Lovenox. 7. Bronchodilators per pulmonology. 8. Medical management per primary care service. 9. More recommendations to follow. Time with Patient: Greater than 30
--- NOTE | 2018-06-30 11:17 | P.PN ---
Subjective Progress Note Date: 06/30/18 Principal diagnosis: complicated empyema/parapneumonic effusion involving the right lung. This is a very pleasant 73-year-old gentleman who follows with Dr. Samuel as his primary care physician. He has a history of coronary artery disease with previous stent placement, gastroesophageal reflux disease, chronic obstructive pulmonary disease and is a former smoker. The patient also has severe rheumatoid arthritis and has had multiple joint replacements including a right total shoulder and a total left knee. His knee was placed about 15 years ago. He presented here to the hospital in May of this year with a septic joint positive for MRSA. He subsequently undergone surgery and had a spacer placed. Following that he was in the intensive care unit on the mechanical ventilator with evidence of congestive heart failure. He was subsequently extubated and recovered and was transferred to [facility] for continued rehabilitation and IV antibiotics on 06/17/2018. He was brought back here to the emergency room yesterday for a 3 day history of fevers with a T-max of 102.2. Chest x-ray revealed consolidation and thickening of the right lower lobe. Subsequent computed tomography scan of the chest revealed a loculated large right pleural effusion in the posterior lung field. There is moderate adjacent pulmonary infiltrate and atelectasis. Similar infiltrate of the left lung base. Empyema is within the differential. He is seen today in consultation on the regular medical floor. He is awake and alert in no acute distress. He has been afebrile. He is maintaining good O2 saturations in the 90s on 2 L per minute per nasal cannula. He denies any worsening shortness of breath. No cough or congestion. No hemoptysis. White count 11.1. Hemoglobin 11.0. Creatinine 0.77. He is currently on vancomycin and Levaquin. On 06/28/2018, the patient is doing well. He is hemodynamically stable. He still having on and off fever which is suspected to be related to the empyema and a right chest. Intervention radiology was consulted and the patient will have a pigtail catheter inserted tomorrow. He remains on the same antibiotic coverage. White cell count is at 9.5. No nausea. No vomiting. No diarrhea. No altered mentation. The blood culture has been negative thus far. On 06/29/2018 patient seen in follow-up on medical surgical floor. He is resting comfortably in bed, in no acute distress, he is awaiting his pigtail catheter placement for the right empyema/complicated parapneumonic effusion. He remains on IV antibiotics with Zosyn, and vancomycin. He is slightly diaphoretic, he did have fevers yesterday with the T-max of 101.1F at 07 20 4 in the morning. Lung sounds are positive for diminished breath sounds at bilateral bases and coarse rales. Remains on 2 L per nasal cannula with a pulse ox of 94%. These labs were reviewed, WBC is 9.2, hemoglobin is 10.8, electrolytes and renal profile are within normal limits. Blood and urine cultures show no growth. On 2017 patient seen in follow-up on medical surgical floor. His right chest pigtail catheter has drained 435 ML of purulent yellow material, his Pleur -evac is hooked up to low continuous suction. Today's chest x-ray was reviewed , showed improved aeration of the right lung, no evident pneumothorax, persistent patchy bibasilar density. Patient denies any fever or chills, seems to be less diaphoretic on today's exam. On sounds are positive for mesh breath sounds, and coarse crackles at bilateral bases. Labs reviewed, WBC is 9.7, hemoglobin is 11.7, platelet count is 722, electrolytes and renal profile are within normal limits. Yesterday we sent pleural fluid for cholesterol, and triglyceride as well as pH, to rule out remote possibility of chylothorax although pleural fluid clearly seems to be related to empyema. Cultures are pending. CT surgery is following, and patient has received TPA. ID service is following, patient is currently on Zosyn and vancomycin. Objective - Vital Signs Vital signs: Vital Signs Temp 98.8 F 06/30/18 06:21 Pulse 80 06/30/18 07:46 Resp 18 06/30/18 06:21 BP 111/64 06/30/18 06:21 Pulse Ox 95 06/30/18 06:21 Intake & Output 06/29/18 06/30/18 06/30/18 18:59 06:59 18:59 Intake Total 1450 900 Output Total 1535 1400 100 Balance -85 -500 -100 Weight 81.647 kg Intake: Intake, IV Titration 1050 Amount Piperacillin-Tazobactam 3 50 .375 gm In Dextrose/Water 1 50ml.bag @ 12.5 mls/hr IVPB Q8HR [facility] Rx#: [id number] Vancomycin 1,750 mg In 500 Sodium Chloride 0.9% 500 ml @ 167 mls/hr IVPB Q12H [facility] Rx#:[id number] Vancomycin 2,000 mg In 500 Sodium Chloride 0.9% 500 ml @ 167 mls/hr IVPB Q12H [facility] Rx#:[id number] Oral 400 900 Output: Chest Tube Drainage 435 100 Chest Tube Right 435 100 Urine 1100 1400 Other: Voiding Method Urinal # Voids 1 0 - Exam - GENERAL EXAM: Alert, active, comfortable in no apparent distress. HEAD: Normocephalic/atraumatic. EYES: Normal reaction of pupils, equal size. Conjunctiva pink, sclera white. NOSE: Clear with pink turbinates. THROAT: No erythema or exudates. NECK: No masses, no JVD, no thyroid enlargement, no adenopathy. CHEST: No chest wall deformity. Symmetrical expansion. Right posterior lower chest pigtail catheter is in place, connected to a Pleur-evac, and wall suction , and there has been 435 mL of purulent white-yellow drainage in the Pleur-evac LUNGS: Equal air entry with bibasilar crackles, and diminished breath sounds at the bases CVS: Regular rate and rhythm, normal S1 and S2, no gallops, no murmurs, no rubs ABDOMEN: Soft, nontender. No hepatosplenomegaly, normal bowel sounds, no guarding or rigidity. EXTREMITIES: No clubbing, no edema, no cyanosis, 2+ pulses and upper and lower extremities. Left lower extremity remains in the brace, recent antibiotic spacer MUSCULOSKELETAL: Muscle strength and tone normal. SPINE: No scoliosis or deformity SKIN: No rashes CENTRAL NERVOUS SYSTEM: Alert and oriented -3. No focal deficits, tone is normal in all 4 extremities. PSYCHIATRIC: Alert and oriented -3. Appropriate affect. Intact judgment and insight. - Labs CBC & Chem 7: 06/30/18 07:49 06/30/18 07:49 Labs: Abnormal Lab Results - Last 24 Hours (Table) 06/30/18 06/30/18 Range/Units 07:49 07:49 RBC 3.75 L (4.30-5.90) m/uL Hgb 11.7 L (13.0-17.5) gm/dL Hct 36.4 L (39.0-53.0) % Plt Count 722 H (150-450) k/uL Glucose 128 H (74-99) mg/dL Calcium 8.1 L (8.4-10.2) mg/dL ALT 18 L (21-72) U/L Total Protein 6.0 L (6.3-8.2) g/dL Albumin 2.7 L (3.5-5.0) g/dL Microbiology - Last 24 Hours (Table) 06/29/18 11:05 Gram Stain - Preliminary Pleural Fluid Body Fluid Culture - Preliminary 06/26/18 20:38 Blood Culture - Preliminary Blood No Growth after 72 hours 06/29/18 11:05 Fungal Culture - Preliminary Pleural Fluid Assessment and Plan Plan: #1 complicated empyema/parapneumonic effusion involving the right lung, status post CT-guided placement of right pigtail catheter with drainage of purulent drainage. The patient has also been on IV antibiotics for recent left knee removal and antibiotic spacer placed due to MRSA infection. Currently on vancomycin and Levaquin. PICC line in place. #2 Recent hospitalization for septic joint of MRSA in the left knee status post pacer placement. Remains in a brace. #3 Coronary artery disease with previous stent placement. #4 Chronic obstructive pulmonary disease with remote history of 40+ pack per day smoking history. #5 History of marijuana use. #6 Gastroesophageal reflux disease. #7 Severe rheumatoid arthritis most recently on methotrexate and prednisone. Plan Continue same antibiotic coverage, awaiting results of the cultures, no fever, patient is breathing easier, less diaphoretic. CT surgery is following, and patient has received TPA infusion in the pigtail chest tube. I performed a history & physical examination of the patient and discussed their management with my nurse practitioner, Yoselin Wiggins. I reviewed the nurse practitioner's note and agree with the documented findings and plan of care. Lung sounds are positive for bibasilar crackles. The findings and the impression was discussed with the patient. I attest to the documentation by the nurse practitioner. Time with Patient: Less than 30
[2018-06-30] MEDS: FOLIC ACID 1 MG TAB PO SCH (11:34)
--- NOTE | 2018-06-30 12:09 | P.PN ---
Subjective Progress Note Date: 06/30/18 Fletcher Sanabria is a 73-year-old male who was recently admitted to [facility] due to left knee septic arthroplasty, blood culture and left knee cultures were positive for MRSA patient was seen by infectious disease Dr. Paul he was started on IV vancomycin he was discharged to [facility] on the [facility] to complete his IV antibiotic course. Patient continued to have episodes of elevated temperature up to 102.2 despite IV antibiotic and multiple medication to control his fever, at that point patient was sent back to [facility] emergency room for reevaluation. Chest x-ray was done and revealed evidence of pleural thickening and the possibility of empyema should be considered, computed tomography scan of the chest was done in the emergency room and revealed evidence of loculated large right pleural effusion, with adjacent pulmonary infiltrate. IV Levaquin was added to regimen and patient was admitted to medical floor, pulmonary consultation, infectious disease consultation, and thoracic surgery consultation were requested. On 06/28/2018 patient is alert and oriented 3 in no apparent distress complaining of shortness of breath with activity complaining of cough otherwise no complaints at this time On 06/29/2018 patient is alert and oriented 3 resting comfortably in bed. denies chest pain or shortness of breath. Patient is on 2 liters nasal cannula. Plan for pigtail placement to right lower lobe lung today. Patient denies nausea vomiting or diarrhea. Denies any urinary burning or frequency. On 06/30/2018 patient is alert and oriented 3. Patient states he feels much improved since yesterday in regards to breathing. Patient states has been up walking. Patient did have detail placement yesterday to right lower lung. Patient did receive TPA to pigtail per cardiovascular surgeon services. At that time patient denies chest pain or shortness breath. Patient denies any nausea vomiting diarrhea. Patient denies any urinary burning or frequency. Objective - Vital Signs Vital signs: Vital Signs Temp 98.8 F 06/30/18 06:21 Pulse 88 06/30/18 11:47 Resp 18 06/30/18 06:21 BP 111/64 06/30/18 06:21 Pulse Ox 95 06/30/18 06:21 Intake & Output 06/29/18 06/30/18 06/30/18 18:59 06:59 18:59 Intake Total 1450 900 Output Total 1535 1400 100 Balance -85 -500 -100 Weight 81.647 kg Intake: Intake, IV Titration 1050 Amount Piperacillin-Tazobactam 3 50 .375 gm In Dextrose/Water 1 50ml.bag @ 12.5 mls/hr IVPB Q8HR [facility] Rx#: [id number] Vancomycin 1,750 mg In 500 Sodium Chloride 0.9% 500 ml @ 167 mls/hr IVPB Q12H [facility] Rx#:[id number] Vancomycin 2,000 mg In 500 Sodium Chloride 0.9% 500 ml @ 167 mls/hr IVPB Q12H [facility] Rx#:[id number] Oral 400 900 Output: Chest Tube Drainage 435 100 Chest Tube Right 435 100 Urine 1100 1400 Other: Voiding Method Urinal # Voids 1 0 - Exam In general patient is alert and oriented 3 in no apparent distress HEENT head normocephalic and atraumatic Neck is supple no JVD no goiter no lymphadenopathy no carotid bruit Chest exam reveals a few scattered crackles no wheezing Cardiac exam reveals regular heart sounds no gallops no murmurs Abdomen is soft nontender no organomegaly with normal bowel sounds Extremity exam reveals no edema, left knee with brace on, no cyanosis or clubbing Neurological examination reveals no gross focal deficit - Labs CBC & Chem 7: 06/30/18 07:49 06/30/18 07:49 Labs: Abnormal Lab Results - Last 24 Hours (Table) 06/30/18 06/30/18 Range/Units 07:49 07:49 RBC 3.75 L (4.30-5.90) m/uL Hgb 11.7 L (13.0-17.5) gm/dL Hct 36.4 L (39.0-53.0) % Plt Count 722 H (150-450) k/uL Glucose 128 H (74-99) mg/dL Calcium 8.1 L (8.4-10.2) mg/dL ALT 18 L (21-72) U/L Total Protein 6.0 L (6.3-8.2) g/dL Albumin 2.7 L (3.5-5.0) g/dL Microbiology - Last 24 Hours (Table) 06/29/18 11:05 Gram Stain - Preliminary Pleural Fluid Body Fluid Culture - Preliminary 06/26/18 20:38 Blood Culture - Preliminary Blood No Growth after 72 hours 06/29/18 11:05 Fungal Culture - Preliminary Pleural Fluid Assessment and Plan Assessment: #1 febrile illness with leukocytosis, possibly related to pneumonia with empyema , at this time IV Levaquin was added to her regimen, pulmonary consultation and infectious disease consultation were requested, also thoracic surgery consultation was requested. Patient had pigtail catheter inserted yesterday in interventional radiology. Patient also received TPA to site per cardiovascular surgery. #3 history of coronary artery disease stable at this time patient denies any chest pain, he denies any shortness of breath at this time #4 previous history of pancreatitis. #5 known history of rheumatoid arthritis, patient was on methotrexate in the past however this is on hold at this time due to acute infection since his last admission. #6 history of gastroesophageal reflux disease #7 underlying history of hyperlipidemia maintained on Lipitor. DVT prophylaxis lovenox and GI prophylaxis Pepcid I performed an examination of the patient and discussed their management with the Nurse Practitioner. I have reviewed the Nurse Practitioner's notes and agree with the documented findings and plan of care
[2018-06-30] MEDS: ATORVASTATIN 40 MG TAB PO SCH (20:12)
[2018-07-01] MEDS: PIPERACILLIN-TAZOBACTAM 3.375 GM in DEXTROSE/WATER 1 50ML.BAG IVPB SCH ×4 (00:09→23:40)
[2018-07-01] MEDS: oxyCODONE-APAP 10-325MG 1 EACH TAB PO SCH ×4 (02:26→20:11)
[2018-07-01] MEDS: SODIUM CHLORIDE 0.9% 1,000 ML IV SCH (02:27)
[2018-07-01] MEDS ORDERED: VANCOMYCIN TROUGH DUE 1 EACH MISC MISCELLANE ONE (05:00)
[2018-07-01 06:08] LABS: Basophils # (A) 0.1 k/uL (0-0.2); Basophils % (A) 1 %; Eosinophils # (A) 0.2 k/uL (0-0.7); Eosinophils % (A) 3 %; HCT 34.2 % (39.0-53.0); HGB 11.1 gm/dL (13.0-17.5); Lymphocytes % (A) 28 %; MCHC 32.4 g/dL (31.0-37.0); MCV 95.7 fL (80.0-100.0); Mean Platelet Volume 7.3; Monocytes # (A) 0.4 k/uL (0-1.0); Monocytes % (A) 5 %; Neutrophils # (A) 4.5 k/uL (1.3-7.7); Neutrophils % (A) 62 %; Platelet Count 707 k/uL (150-450); RBC 3.58 m/uL (4.30-5.90); RDW 13.8 % (11.5-15.5); WBC 7.2 k/uL (3.8-10.6)
[2018-07-01 06:24] LABS: Anion Gap 7 mmol/L; Blood Urea Nitrogen 14 mg/dL (9-20); Calcium 8.3 mg/dL (8.4-10.2); Carbon Dioxide 28 mmol/L (22-30); Chloride 104 mmol/L (98-107); Glucose 99 mg/dL (74-99); Potassium 4.3 mmol/L (3.5-5.1); Sodium 139 mmol/L (137-145)
[2018-07-01] MEDS: VANCOMYCIN 2,000 MG in SODIUM CHLORIDE 0.9% 500 ML IVPB SCH ×2 (06:44→17:27)
[2018-07-01] MEDS: IPRATROPIUM-ALBUTEROL 3 ML NEB INHALATION SCH ×4 (07:30→20:14)
[2018-07-01] MEDS: ENOXAPARIN 40 MG/0.4 ML SYRINGE SQ SCH (08:09)
[2018-07-01] MEDS: predniSONE 10 MG TAB PO SCH (08:09)
[2018-07-01] MEDS: FERROUS SULFATE 325 MG TAB PO SCH ×2 (08:10→14:50)
[2018-07-01] MEDS: FUROSEMIDE 40 MG TAB PO SCH (08:10)
[2018-07-01] MEDS: ASPIRIN 81 MG PO SCH (08:10)
[2018-07-01] MEDS: FAMOTIDINE 20 MG TAB PO SCH (08:10)
--- NOTE | 2018-07-01 08:23 | CT ---
EXAMINATION TYPE: CT chest wo con DATE OF EXAM: 07/01/2018 COMPARISON: Chest CT 4 days ago. HISTORY: right loculated pleural effusion progress study. CT DLP: 500 mGycm. Automated Exposure Control for Dose Reduction was Utilized. TECHNIQUE: CT scan of the thorax is performed without IV contrast. FINDINGS: LUNGS: There is background moderate underlying emphysematous change in the upper lungs with anterior bleb formation with reticulation and distortion redemonstrated. There is marked interval improvement in right-sided posterior midlung pleural fluid collection with new pigtail drainage catheter in the p leural space from posterior approach. There is associated right basilar scarring and/or atelectasis r edemonstrated. There is tiny left-sided pleural fluid collection not significant change from prior wi th associated left basilar atelectasis and/or scarring. No new nodules or masses are present. Tracheo bronchial tree is patent. MEDIASTINUM: Lack of IV contrast is noted to limit evaluation for mediastinal and especially hilar ad enopathy. There are no definitive new greater than 1 cm hilar or mediastinal lymph nodes. Prominent b ut subcentimeter mediastinal lymph nodes are redemonstrated. No cardiomegaly or pericardial effusion is seen. Left-sided PICC line terminating in SVC is redemonstrated. There is coronary artery calcifi cation and/or coronary stents redemonstrated. Main pulmonary artery remains dilated at bifurcation me asuring 3.2 cm on axial image 21, CT findings consistent with underlying pulmonary artery hypertensio n. OTHER: There is stable 2.7 cm simple appearing thin-walled cyst in the left hepatic lobe axial image 50. There are scattered calcifications throughout the spleen felt to reflect product of old granuloma tous disease. Subcentimeter splenule axial image 53 is redemonstrated. Spine is straightened with mod erate multilevel anterior and lateral spurring redemonstrated. IMPRESSION: Marked interval improvement in posterior right basilar pleural fluid collection with pigt ail catheter in place. Other findings stable as there is moderate chronic emphysematous change and an terior upper lung fibrosis. No new focal infiltrate.
[2018-07-01] MEDS ORDERED: ALTEPLASE 10 MG in SODIUM CHLORIDE 0.9% 100 ML IRRIGATION ONE (08:34)
--- NOTE | 2018-07-01 09:13 | P.PN ---
<Christine Nolen - Last Filed: 07/01/18 11:06> Subjective Progress Note Date: 07/01/18 Principal diagnosis: Loculated right pleural effusion. History of rheumatoid arthritis, recent left knee septic arthroplasty with blood cultures and knee cultures positive for MRSA , COPD with home oxygen use, pneumonia and 2017, pancreatitis, coronary artery disease with previous stent placement to his RCA, GERD, hyperlipidemia, and previous tobacco dependence, quit in 2016. POD #2 insertion of pigtail catheter by interventional radiology. Patient is currently sitting up in bed in no acute distress. Denies shortness of breath, does complain of pain in his left knee which does get relieved with pain medication. No new complaints. Alteplase instilled into pigtail catheter yesterday without much increase in drainage. Computed tomography scan completed this morning demonstrating decrease in right-sided pleural effusion. Patient remains afebrile with normal white blood cell count. Pleural cultures still pending. Objective - Vital Signs Vital signs: Vital Signs Temp 98.0 F 07/01/18 06:19 Pulse 85 07/01/18 06:19 Resp 17 07/01/18 06:19 BP 96/53 07/01/18 06:19 Pulse Ox 94 L 07/01/18 06:19 Intake & Output 06/30/18 07/01/18 07/01/18 18:59 06:59 18:59 Output Total 100 940 Balance -100 -940 Output: Chest Tube Drainage 100 90 Chest Tube Right 100 90 Urine 850 Other: # Voids 3 # Bowel Movements 1 - Constitutional General appearance: Present: cooperative, no acute distress - Respiratory Details: Lungs sounds diminished bilaterally with expiratory wheezes present. Respirations even, nonlabored. Currently on 2 L nasal cannula with oxygen saturation 94%. Able to achieve 7277-3582 mL on his incentive spirometry. Right sided pigtail catheter present, 90 mL whitish yellow fluid drained overnight, 100 mL in the last 24 hours. - Cardiovascular Details: S1, S2 present. Regular rate and rhythm. Palpable peripheral pulses bilaterally. No edema present. No calf pain or tenderness noted. - Gastrointestinal Gastrointestinal Comment(s): Abdomen soft, nontender, nondistended. Active bowel sounds 4 quadrants. Tolerating diet. - Genitourinary Genitourinary Comment(s): Continues to void clear, yellow urine. - Integumentary Integumentary Comment(s): Skin is warm and dry with evidence of good perfusion. Well-healed surgical incisions present to left shoulder and left knee. - Neurologic Neurologic: Present: CNII-XII intact - Musculoskeletal Musculoskeletal Comment(s): Nonweightbearing on his left leg, able to ambulate with crutches. Musculoskeletal: Present: gait normal, strength equal bilaterally - Psychiatric Psychiatric: Present: A&O x's 3, appropriate affect, intact judgment & insight - Allied health notes Allied health notes reviewed: nursing - Labs CBC & Chem 7: 07/01/18 05:46 07/01/18 05:46 Labs: Abnormal Lab Results - Last 24 Hours (Table) 06/30/18 06/30/18 07/01/18 Range/Units 07:49 07:49 05:46 RBC 3.75 L (4.30-5.90) m/uL Hgb 11.7 L (13.0-17.5) gm/dL Hct 36.4 L (39.0-53.0) % Plt Count 722 H (150-450) k/uL Glucose 128 H (74-99) mg/dL Calcium 8.1 L 8.3 L (8.4-10.2) mg/dL ALT 18 L (21-72) U/L Total Protein 6.0 L (6.3-8.2) g/dL Albumin 2.7 L (3.5-5.0) g/dL 07/01/18 Range/Units 05:46 RBC 3.58 L (4.30-5.90) m/uL Hgb 11.1 L (13.0-17.5) gm/dL Hct 34.2 L (39.0-53.0) % Plt Count 707 H (150-450) k/uL Glucose (74-99) mg/dL Calcium (8.4-10.2) mg/dL ALT (21-72) U/L Total Protein (6.3-8.2) g/dL Albumin (3.5-5.0) g/dL Microbiology - Last 24 Hours (Table) 06/26/18 20:38 Blood Culture - Preliminary Blood No Growth after 96 hours 06/29/18 11:05 Anaerobic Culture - Preliminary Pleural Fluid 06/29/18 11:05 Gram Stain - Preliminary Pleural Fluid Body Fluid Culture - Preliminary - Imaging and Cardiology CT scan - chest: report reviewed, image reviewed Assessment and Plan (1) History of pneumonia Current Visit: Yes Status: Acute Code(s): Z87.01 - PERSONAL HISTORY OF PNEUMONIA (RECURRENT) SNOMED Code(s): 376591256 (2) History of septic arthritis Current Visit: Yes Status: Acute Code(s): Z87.39 - PERSONAL HISTORY OF DISEASES OF THE MS SYS AND CONN TISS SNOMED Code(s): 404230989 (3) Loculated pleural effusion Current Visit: Yes Status: Acute Code(s): J90 - PLEURAL EFFUSION, NOT ELSEWHERE CLASSIFIED SNOMED Code(s): 716963011 (4) Pleural effusion on right Current Visit: Yes Status: Acute Code(s): J90 - PLEURAL EFFUSION, NOT ELSEWHERE CLASSIFIED SNOMED Code(s): 66593809 (5) Bacteremia Current Visit: No Status: Resolved Code(s): R78.81 - BACTEREMIA SNOMED Code(s): 5514102 (6) COPD (chronic obstructive pulmonary disease) Current Visit: Yes Status: Chronic Code(s): J44.9 - CHRONIC OBSTRUCTIVE PULMONARY DISEASE, UNSPECIFIED SNOMED Code(s): 83266599 (7) History of pancreatitis Current Visit: No Status: Resolved Code(s): Z87.19 - PERSONAL HISTORY OF OTHER DISEASES OF THE DIGESTIVE SYSTEM SNOMED Code(s): 71169115608175 (8) Rheumatoid arthritis Current Visit: Yes Status: Chronic Code(s): M06.9 - RHEUMATOID ARTHRITIS, UNSPECIFIED SNOMED Code(s): 91838558 Plan: 1. Right-sided pigtail catheter placed Friday by interventional radiology. Will instill alteplase again today. Will discuss plans for continued current management versus surgery with surgeon. 2. Encourage incentive spirometry use 10 times every hour while awake. 3. Antibiotics per infectious disease recommendations. 4. Increase activity, ambulate with crutches as tolerated. Nonweightbearing to left lower extremity. 5. We will follow labs and x-rays. 6. GI prophylaxis with Pepcid. DVT prophylaxis with Lovenox. 7. Bronchodilators per pulmonology. 8. Medical management per primary care service. 9. More recommendations to follow. Time with Patient: Greater than 30 <Sb Vázquez - Last Filed: 09/19/18 11:21> Objective - Vital Signs Vital signs: Vital Signs Temp 98.0 F 07/01/18 06:19 Pulse 84 07/01/18 11:14 Resp 17 07/01/18 06:19 BP 96/53 07/01/18 06:19 Pulse Ox 94 L 07/01/18 06:19 Intake & Output 06/30/18 07/01/18 07/01/18 18:59 06:59 18:59 Output Total 100 940 Balance -100 -940 Output: Chest Tube Drainage 100 90 Chest Tube Right 100 90 Urine 850 Other: # Voids 3 # Bowel Movements 1 - Labs CBC & Chem 7: 07/01/18 05:46 07/01/18 05:46 Labs: Abnormal Lab Results - Last 24 Hours (Table) 07/01/18 07/01/18 Range/Units 05:46 05:46 RBC 3.58 L (4.30-5.90) m/uL Hgb 11.1 L (13.0-17.5) gm/dL Hct 34.2 L (39.0-53.0) % Plt Count 707 H (150-450) k/uL Calcium 8.3 L (8.4-10.2) mg/dL Microbiology - Last 24 Hours (Table) 06/29/18 11:05 Gram Stain - Preliminary Pleural Fluid Body Fluid Culture - Preliminary 06/26/18 20:38 Blood Culture - Preliminary Blood No Growth after 96 hours 06/29/18 11:05 Anaerobic Culture - Preliminary Pleural Fluid Assessment and Plan Plan: The patient was seen and examined. I agree with the above assessment and plan. The patient continues to do well clinically. He is afebrile, hemodynamically stable, and denies shortness of breath. CT scan of the chest today reveals near resolution of his right-sided pleural fluid collection with an expanded lung. We will continue to treat with alteplase for now. No indication for surgery at this time.
--- NOTE | 2018-07-01 11:44 | P.PN ---
Subjective Progress Note Date: 07/01/18 Principal diagnosis: complicated empyema/parapneumonic effusion involving the right lung. This is a very pleasant 73-year-old gentleman who follows with Dr. Samuel as his primary care physician. He has a history of coronary artery disease with previous stent placement, gastroesophageal reflux disease, chronic obstructive pulmonary disease and is a former smoker. The patient also has severe rheumatoid arthritis and has had multiple joint replacements including a right total shoulder and a total left knee. His knee was placed about 15 years ago. He presented here to the hospital in May of this year with a septic joint positive for MRSA. He subsequently undergone surgery and had a spacer placed. Following that he was in the intensive care unit on the mechanical ventilator with evidence of congestive heart failure. He was subsequently extubated and recovered and was transferred to [facility] for continued rehabilitation and IV antibiotics on 06/17/2018. He was brought back here to the emergency room yesterday for a 3 day history of fevers with a T-max of 102.2. Chest x-ray revealed consolidation and thickening of the right lower lobe. Subsequent computed tomography scan of the chest revealed a loculated large right pleural effusion in the posterior lung field. There is moderate adjacent pulmonary infiltrate and atelectasis. Similar infiltrate of the left lung base. Empyema is within the differential. He is seen today in consultation on the regular medical floor. He is awake and alert in no acute distress. He has been afebrile. He is maintaining good O2 saturations in the 90s on 2 L per minute per nasal cannula. He denies any worsening shortness of breath. No cough or congestion. No hemoptysis. White count 11.1. Hemoglobin 11.0. Creatinine 0.77. He is currently on vancomycin and Levaquin. On 06/28/2018, the patient is doing well. He is hemodynamically stable. He still having on and off fever which is suspected to be related to the empyema and a right chest. Intervention radiology was consulted and the patient will have a pigtail catheter inserted tomorrow. He remains on the same antibiotic coverage. White cell count is at 9.5. No nausea. No vomiting. No diarrhea. No altered mentation. The blood culture has been negative thus far. On 06/29/2018 patient seen in follow-up on medical surgical floor. He is resting comfortably in bed, in no acute distress, he is awaiting his pigtail catheter placement for the right empyema/complicated parapneumonic effusion. He remains on IV antibiotics with Zosyn, and vancomycin. He is slightly diaphoretic, he did have fevers yesterday with the T-max of 101.1F at 07 20 4 in the morning. Lung sounds are positive for diminished breath sounds at bilateral bases and coarse rales. Remains on 2 L per nasal cannula with a pulse ox of 94%. These labs were reviewed, WBC is 9.2, hemoglobin is 10.8, electrolytes and renal profile are within normal limits. Blood and urine cultures show no growth. On 2017 patient seen in follow-up on medical surgical floor. His right chest pigtail catheter has drained 435 ML of purulent yellow material, his Pleur -evac is hooked up to low continuous suction. Today's chest x-ray was reviewed , showed improved aeration of the right lung, no evident pneumothorax, persistent patchy bibasilar density. Patient denies any fever or chills, seems to be less diaphoretic on today's exam. On sounds are positive for mesh breath sounds, and coarse crackles at bilateral bases. Labs reviewed, WBC is 9.7, hemoglobin is 11.7, platelet count is 722, electrolytes and renal profile are within normal limits. Yesterday we sent pleural fluid for cholesterol, and triglyceride as well as pH, to rule out remote possibility of chylothorax although pleural fluid clearly seems to be related to empyema. Cultures are pending. CT surgery is following, and patient has received TPA. ID service is following, patient is currently on Zosyn and vancomycin. On 07/01/2018 patient was reevaluated again. Sitting up in the chair, in no acute distress, states he occasionally has periods of pressure-like sensation in his right anterior chest, under the costal margin, but those episodes are short-lived lasting only a few seconds. Worsening shortness of breath, patient is currently on 2 L per nasal cannula, his pulse ox 94%, afebrile. He was dynamically stable, no altered mentation, labs were reviewed, WBC is 7.2, hemoglobin is 11.1, electrolytes and renal profile are within normal range. Pleural fluid cultures pending. Patient remains on a combination of antibiotics with Zosyn and vancomycin. CT surgery is planned and on infusion of TPA again today. Yesterday TPA infusion did not result in significant amount of drainage. CT chest was repeated last night, and showed marked interval improvement in posterior right basilar pleural fluid collection with pigtail catheter in place. From pulmonary perspective, we recommend surgery for decortication in view of the significant empyema, loculation of the effusions. Objective - Vital Signs Vital signs: Vital Signs Temp 98.0 F 07/01/18 06:19 Pulse 86 07/01/18 11:24 Resp 17 07/01/18 06:19 BP 96/53 07/01/18 06:19 Pulse Ox 94 L 07/01/18 06:19 Intake & Output 06/30/18 07/01/18 07/01/18 18:59 06:59 18:59 Output Total 100 940 Balance -100 -940 Output: Chest Tube Drainage 100 90 Chest Tube Right 100 90 Urine 850 Other: # Voids 3 # Bowel Movements 1 - Exam - GENERAL EXAM: Alert, active, comfortable in no apparent distress. HEAD: Normocephalic/atraumatic. EYES: Normal reaction of pupils, equal size. Conjunctiva pink, sclera white. NOSE: Clear with pink turbinates. THROAT: No erythema or exudates. NECK: No masses, no JVD, no thyroid enlargement, no adenopathy. CHEST: No chest wall deformity. Symmetrical expansion. Right posterior lower chest pigtail catheter is in place, connected to a Pleur-evac, and wall suction , and there has been 625 mL of purulent white-yellow drainage in the Pleur-evac LUNGS: Equal air entry with bibasilar crackles, and diminished breath sounds at the bases CVS: Regular rate and rhythm, normal S1 and S2, no gallops, no murmurs, no rubs ABDOMEN: Soft, nontender. No hepatosplenomegaly, normal bowel sounds, no guarding or rigidity. EXTREMITIES: No clubbing, no edema, no cyanosis, 2+ pulses and upper and lower extremities. Left lower extremity remains in the brace, recent antibiotic spacer MUSCULOSKELETAL: Muscle strength and tone normal. SPINE: No scoliosis or deformity SKIN: No rashes CENTRAL NERVOUS SYSTEM: Alert and oriented -3. No focal deficits, tone is normal in all 4 extremities. PSYCHIATRIC: Alert and oriented -3. Appropriate affect. Intact judgment and insight. - Labs CBC & Chem 7: 07/01/18 05:46 07/01/18 05:46 Labs: Abnormal Lab Results - Last 24 Hours (Table) 07/01/18 07/01/18 Range/Units 05:46 05:46 RBC 3.58 L (4.30-5.90) m/uL Hgb 11.1 L (13.0-17.5) gm/dL Hct 34.2 L (39.0-53.0) % Plt Count 707 H (150-450) k/uL Calcium 8.3 L (8.4-10.2) mg/dL Microbiology - Last 24 Hours (Table) 06/29/18 11:05 Gram Stain - Preliminary Pleural Fluid Body Fluid Culture - Preliminary 06/26/18 20:38 Blood Culture - Preliminary Blood No Growth after 96 hours 06/29/18 11:05 Anaerobic Culture - Preliminary Pleural Fluid Assessment and Plan Plan: #1 complicated empyema/parapneumonic effusion involving the right lung, status post CT-guided placement of right pigtail catheter with drainage of purulent drainage. The patient has also been on IV antibiotics for recent left knee removal and antibiotic spacer placed due to MRSA infection. Currently on vancomycin and Zosyn. PICC line in place. #2 Recent hospitalization for septic joint of MRSA in the left knee status post pacer placement. Remains in a brace. #3 Coronary artery disease with previous stent placement. #4 Chronic obstructive pulmonary disease with remote history of 40+ pack per day smoking history. #5 History of marijuana use. #6 Gastroesophageal reflux disease. #7 Severe rheumatoid arthritis most recently on methotrexate and prednisone. Plan Continue same antibiotic coverage, no ongoing fever, no chills, CT chest showed significant improvement in the appearance of the right empyema. Pleural fluid cultures are still pending. CT surgery is following, and is planning on TPA infusions today. From our perspective surgery for decortication of the right lung may still be necessary in view of significant loculation, and significant amount of purulent empyema. ID service is following, and is managing the antibiotics. I performed a history & physical examination of the patient and discussed their management with my nurse practitioner, Yoselin Wiggins. I reviewed the nurse practitioner's note and agree with the documented findings and plan of care. Lung sounds are positive for bibasilar crackles. The findings and the impression was discussed with the patient. I attest to the documentation by the nurse practitioner. Time with Patient: Less than 30
[2018-07-01] MEDS: FOLIC ACID 1 MG TAB PO SCH (12:29)
--- NOTE | 2018-07-01 14:14 | P.PN ---
Subjective Progress Note Date: 07/01/18 Fletcher Sanabria is a 73-year-old male who was recently admitted to [facility] due to left knee septic arthroplasty, blood culture and left knee cultures were positive for MRSA patient was seen by infectious disease Dr. Paul he was started on IV vancomycin he was discharged to [facility] on the [facility] to complete his IV antibiotic course. Patient continued to have episodes of elevated temperature up to 102.2 despite IV antibiotic and multiple medication to control his fever, at that point patient was sent back to [facility] emergency room for reevaluation. Chest x-ray was done and revealed evidence of pleural thickening and the possibility of empyema should be considered, computed tomography scan of the chest was done in the emergency room and revealed evidence of loculated large right pleural effusion, with adjacent pulmonary infiltrate. IV Levaquin was added to regimen and patient was admitted to medical floor, pulmonary consultation, infectious disease consultation, and thoracic surgery consultation were requested. On 06/28/2018 patient is alert and oriented 3 in no apparent distress complaining of shortness of breath with activity complaining of cough otherwise no complaints at this time On 06/29/2018 patient is alert and oriented 3 resting comfortably in bed. denies chest pain or shortness of breath. Patient is on 2 liters nasal cannula. Plan for pigtail placement to right lower lobe lung today. Patient denies nausea vomiting or diarrhea. Denies any urinary burning or frequency. On 06/30/2018 patient is alert and oriented 3. Patient states he feels much improved since yesterday in regards to breathing. Patient states has been up walking. Patient did have detail placement yesterday to right lower lung. Patient did receive TPA to pigtail per cardiovascular surgeon services. At that time patient denies chest pain or shortness breath. Patient denies any nausea vomiting diarrhea. Patient denies any urinary burning or frequency. 07/01/2018 patient is alert and oriented 3. Patient is currently resting comfortably in bed. Patient denies chest pain or shortness breath. Patient denies nausea vomiting or diarrhea. Patient denies any urinary burning or frequency Objective - Vital Signs Vital signs: Vital Signs Temp 98.0 F 07/01/18 06:19 Pulse 86 07/01/18 11:24 Resp 17 07/01/18 06:19 BP 96/53 07/01/18 06:19 Pulse Ox 94 L 07/01/18 06:19 Intake & Output 06/30/18 07/01/18 07/01/18 18:59 06:59 18:59 Output Total 100 940 Balance -100 -940 Output: Chest Tube Drainage 100 90 Chest Tube Right 100 90 Urine 850 Other: # Voids 3 # Bowel Movements 1 - Exam In general patient is alert and oriented 3 in no apparent distress HEENT head normocephalic and atraumatic Neck is supple no JVD no goiter no lymphadenopathy no carotid bruit Chest exam reveals a few scattered crackles no wheezing Cardiac exam reveals regular heart sounds no gallops no murmurs Abdomen is soft nontender no organomegaly with normal bowel sounds Extremity exam reveals no edema, left knee with brace on, no cyanosis or clubbing Neurological examination reveals no gross focal deficit - Labs CBC & Chem 7: 07/01/18 05:46 07/01/18 05:46 Labs: Abnormal Lab Results - Last 24 Hours (Table) 07/01/18 07/01/18 Range/Units 05:46 05:46 RBC 3.58 L (4.30-5.90) m/uL Hgb 11.1 L (13.0-17.5) gm/dL Hct 34.2 L (39.0-53.0) % Plt Count 707 H (150-450) k/uL Calcium 8.3 L (8.4-10.2) mg/dL Microbiology - Last 24 Hours (Table) 06/29/18 11:05 Gram Stain - Preliminary Pleural Fluid Body Fluid Culture - Preliminary 06/26/18 20:38 Blood Culture - Preliminary Blood No Growth after 96 hours 06/29/18 11:05 Anaerobic Culture - Preliminary Pleural Fluid Assessment and Plan Assessment: #1 febrile illness with leukocytosis, possibly related to pneumonia with empyema , at this time IV Levaquin was added to her regimen, pulmonary consultation and infectious disease consultation were requested, also thoracic surgery consultation was requested. Patient had pigtail catheter inserted yesterday in interventional radiology. Patient also received alteplase to site per cardiovascular surgery. Patient to receive alteplase again today per cardiovascular surgery. Chest CT completed showing marked interval improvement in posterior right basilar pleural fluid collection with pigtail catheter in place. Other findings stable as there is moderate chronic emphysematous changes and anterior upper lung fibrosis. Per pulmonary decortication of the right lung may still be necessary in view of the significant loculation #3 history of coronary artery disease stable at this time patient denies any chest pain, he denies any shortness of breath at this time #4 previous history of pancreatitis. #5 known history of rheumatoid arthritis, patient was on methotrexate in the past however this is on hold at this time due to acute infection since his last admission. #6 history of gastroesophageal reflux disease #7 underlying history of hyperlipidemia maintained on Lipitor. DVT prophylaxis lovenox and GI prophylaxis Pepcid I performed an examination of the patient and discussed their management with the Nurse Practitioner. I have reviewed the Nurse Practitioner's notes and agree with the documented findings and plan of care
[2018-07-01] MEDS: ATORVASTATIN 40 MG TAB PO SCH (20:11)
[2018-07-01] MEDS: HYDROmorphone 1 MG/ML 1 ML SYRINGE IVP PRN (23:39)
[2018-07-02] MEDS: oxyCODONE-APAP 10-325MG 1 EACH TAB PO SCH ×4 (02:20→21:30)
[2018-07-02] MEDS: SODIUM CHLORIDE 0.9% 1,000 ML IV SCH (03:00)
[2018-07-02] MEDS: HYDROmorphone 1 MG/ML 1 ML SYRINGE IVP PRN ×3 (05:44→12:49)
[2018-07-02] MEDS: VANCOMYCIN 2,000 MG in SODIUM CHLORIDE 0.9% 500 ML IVPB SCH ×2 (05:45→18:09)
--- NOTE | 2018-07-02 07:30 | XR ---
EXAMINATION TYPE: XR chest 1V portable DATE OF EXAM: 07/02/2018 CLINICAL HISTORY: Difficulty breathing progress study. TECHNIQUE: Single AP portable upright view of the chest is obtained. COMPARISON: Chest CT from one day earlier. Chest x-ray from 2 days earlier. FINDINGS: There is stable left-sided PICC line. Metallic hardware from right shoulder surgery is red emonstrated. There is chronic emphysematous change with right basilar pigtail pleural drainage cathet er. There is persistent patchy right basilar atelectasis and/or infiltrate. There is patchy left basi lar atelectasis and/or scarring redemonstrated. No new focal airspace opacity is identified. No sizab le pneumothorax is seen. Cardiac silhouette size is stable and within normal limits. IMPRESSION: Overall stable findings, right basilar pleural pigtail drainage catheter with minimal r esidual right pleural fluid. There is background of chronic parenchymal change with bibasilar scarrin g and/or atelectasis and more focal right midlung infiltrate and/or atelectasis all redemonstrated.
[2018-07-02] MEDS: IPRATROPIUM-ALBUTEROL 3 ML NEB INHALATION SCH ×4 (07:34→20:16)
[2018-07-02] MEDS ORDERED: ALTEPLASE 10 MG in SODIUM CHLORIDE 0.9% 100 ML IRRIGATION ONE (07:38)
[2018-07-02 07:58] LABS: Basophils % (A) 0 %; Eosinophils # (A) 0.3 k/uL (0-0.7); Eosinophils % (A) 3 %; HCT 33.4 % (39.0-53.0); HGB 10.9 gm/dL (13.0-17.5); Lymphocytes # (A) 2.2 k/uL (1.0-4.8); Lymphocytes % (A) 28 %; MCH 30.9 pg (25.0-35.0); MCHC 32.5 g/dL (31.0-37.0); MCV 95.1 fL (80.0-100.0); Mean Platelet Volume 7.3; Monocytes # (A) 0.4 k/uL (0-1.0); Monocytes % (A) 5 %; Neutrophils # (A) 4.8 k/uL (1.3-7.7); Neutrophils % (A) 61 %; Platelet Count 795 k/uL (150-450); RBC 3.51 m/uL (4.30-5.90); RDW 13.7 % (11.5-15.5); WBC 7.9 k/uL (3.8-10.6)
[2018-07-02 08:20] LABS: Anion Gap 7 mmol/L; Blood Urea Nitrogen 13 mg/dL (9-20); Calcium 8.4 mg/dL (8.4-10.2); Carbon Dioxide 29 mmol/L (22-30); Chloride 104 mmol/L (98-107); Glucose 92 mg/dL (74-99); Potassium 4.7 mmol/L (3.5-5.1); Sodium 140 mmol/L (137-145)
[2018-07-02] MEDS: predniSONE 10 MG TAB PO SCH (08:20)
[2018-07-02] MEDS: FERROUS SULFATE 325 MG TAB PO SCH ×2 (08:20→17:49)
[2018-07-02] MEDS: FAMOTIDINE 20 MG TAB PO SCH (08:21)
[2018-07-02] MEDS: FOLIC ACID 1 MG TAB PO SCH (08:21)
[2018-07-02] MEDS: ENOXAPARIN 40 MG/0.4 ML SYRINGE SQ SCH (08:21)
[2018-07-02] MEDS: ASPIRIN 81 MG PO SCH (08:21)
[2018-07-02] MEDS: FUROSEMIDE 40 MG TAB PO SCH (08:21)
[2018-07-02] MEDS: PIPERACILLIN-TAZOBACTAM 3.375 GM in DEXTROSE/WATER 1 50ML.BAG IVPB SCH ×2 (08:21→15:18)
--- NOTE | 2018-07-02 11:01 | P.PN ---
Subjective Progress Note Date: 07/02/18 Principal diagnosis: Loculated right pleural effusion. History of rheumatoid arthritis, recent left knee septic arthroplasty with blood cultures and knee cultures positive for MRSA , COPD with home oxygen use, pneumonia and 2017, pancreatitis, coronary artery disease with previous stent placement to his RCA, GERD, hyperlipidemia, and previous tobacco dependence, quit in 2016. POD #3 insertion of pigtail catheter by interventional radiology. Patient is currently sitting up in bed in no acute distress. Denies shortness of breath, does complain of pain anteriorly from the pigtail catheter. No new complaints. Alteplase instilled into pigtail catheter yesterday without much increase in drainage. Patient remains afebrile with normal white blood cell count. Pleural cultures still pending. Objective - Vital Signs Vital signs: Vital Signs Temp 98.7 F 07/02/18 07:00 Pulse 92 07/02/18 07:35 Resp 16 07/02/18 08:00 BP 110/59 07/02/18 07:00 Pulse Ox 93 L 07/02/18 07:00 Intake & Output 07/01/18 07/02/18 07/02/18 18:59 06:59 18:59 Intake Total 500 Output Total 950 400 Balance -950 100 Weight 81.647 kg Intake: Oral 500 Output: Urine 950 400 Other: Voiding Method Urinal # Voids 2 # Bowel Movements 0 - Constitutional General appearance: Present: cooperative, no acute distress - Respiratory Details: Lungs sounds diminished bilaterally with expiratory wheezes present. Respirations even, nonlabored. Currently on room air with oxygen saturation 94% . Able to achieve 1250 mL on his incentive spirometry. Right sided pigtail catheter present, 120 mL yellowish fluid drained in the last 24 hours. - Cardiovascular Details: S1, S2 present. Regular rate and rhythm. Palpable peripheral pulses bilaterally. No edema present. No calf pain or tenderness noted. - Gastrointestinal Gastrointestinal Comment(s): Abdomen soft, nontender, nondistended. Active bowel sounds 4 quadrants. Tolerating diet. - Genitourinary Genitourinary Comment(s): Continues to void clear, yellow urine. - Integumentary Integumentary Comment(s): Skin is warm and dry with evidence of good perfusion. Well-healed surgical incisions present to left shoulder and left knee. - Neurologic Neurologic: Present: CNII-XII intact - Musculoskeletal Musculoskeletal: Present: gait normal, strength equal bilaterally - Psychiatric Psychiatric: Present: A&O x's 3, appropriate affect, intact judgment & insight - Allied health notes Allied health notes reviewed: nursing - Labs CBC & Chem 7: 07/02/18 07:34 07/02/18 07:34 Labs: Abnormal Lab Results - Last 24 Hours (Table) 07/02/18 Range/Units 07:34 RBC 3.51 L (4.30-5.90) m/uL Hgb 10.9 L (13.0-17.5) gm/dL Hct 33.4 L (39.0-53.0) % Plt Count 795 H (150-450) k/uL Microbiology - Last 24 Hours (Table) 06/29/18 11:05 Gram Stain - Preliminary Pleural Fluid Body Fluid Culture - Preliminary 06/26/18 20:38 Blood Culture - Preliminary Blood No Growth after 120 hours - Imaging and Cardiology Chest x-ray: report reviewed, image reviewed Assessment and Plan (1) History of pneumonia Current Visit: Yes Status: Acute Code(s): Z87.01 - PERSONAL HISTORY OF PNEUMONIA (RECURRENT) SNOMED Code(s): 459369126 (2) History of septic arthritis Current Visit: Yes Status: Acute Code(s): Z87.39 - PERSONAL HISTORY OF DISEASES OF THE MS SYS AND CONN TISS SNOMED Code(s): 140245761 (3) Loculated pleural effusion Current Visit: Yes Status: Acute Code(s): J90 - PLEURAL EFFUSION, NOT ELSEWHERE CLASSIFIED SNOMED Code(s): 444828079 (4) Pleural effusion on right Current Visit: Yes Status: Acute Code(s): J90 - PLEURAL EFFUSION, NOT ELSEWHERE CLASSIFIED SNOMED Code(s): 12254111 (5) Bacteremia Current Visit: No Status: Resolved Code(s): R78.81 - BACTEREMIA SNOMED Code(s): 3493247 (6) COPD (chronic obstructive pulmonary disease) Current Visit: Yes Status: Chronic Code(s): J44.9 - CHRONIC OBSTRUCTIVE PULMONARY DISEASE, UNSPECIFIED SNOMED Code(s): 04719415 (7) History of pancreatitis Current Visit: No Status: Resolved Code(s): Z87.19 - PERSONAL HISTORY OF OTHER DISEASES OF THE DIGESTIVE SYSTEM SNOMED Code(s): 05229085428069 (8) Rheumatoid arthritis Current Visit: Yes Status: Chronic Code(s): M06.9 - RHEUMATOID ARTHRITIS, UNSPECIFIED SNOMED Code(s): 57577999 Plan: 1. Right-sided pigtail catheter placed Friday by interventional radiology. Will instill alteplase again today. Likely will not need much longer as patient is not getting much return drainage. 2. Encourage incentive spirometry use 10 times every hour while awake. 3. Antibiotics per infectious disease recommendations. 4. Increase activity, ambulate with crutches as tolerated. Nonweightbearing to left lower extremity. 5. We will follow labs and x-rays. 6. GI prophylaxis with Pepcid. DVT prophylaxis with Lovenox. 7. Bronchodilators per pulmonology. 8. Medical management per primary care service. 9. More recommendations to follow. Time with Patient: Greater than 30
--- NOTE | 2018-07-02 13:14 | P.PN ---
Subjective Progress Note Date: 07/02/18 Principal diagnosis: complicated empyema/parapneumonic effusion involving the right lung. This is a very pleasant 73-year-old gentleman who follows with Dr. Samuel as his primary care physician. He has a history of coronary artery disease with previous stent placement, gastroesophageal reflux disease, chronic obstructive pulmonary disease and is a former smoker. The patient also has severe rheumatoid arthritis and has had multiple joint replacements including a right total shoulder and a total left knee. His knee was placed about 15 years ago. He presented here to the hospital in May of this year with a septic joint positive for MRSA. He subsequently undergone surgery and had a spacer placed. Following that he was in the intensive care unit on the mechanical ventilator with evidence of congestive heart failure. He was subsequently extubated and recovered and was transferred to [facility] for continued rehabilitation and IV antibiotics on 06/17/2018. He was brought back here to the emergency room yesterday for a 3 day history of fevers with a T-max of 102.2. Chest x-ray revealed consolidation and thickening of the right lower lobe. Subsequent computed tomography scan of the chest revealed a loculated large right pleural effusion in the posterior lung field. There is moderate adjacent pulmonary infiltrate and atelectasis. Similar infiltrate of the left lung base. Empyema is within the differential. He is seen today in consultation on the regular medical floor. He is awake and alert in no acute distress. He has been afebrile. He is maintaining good O2 saturations in the 90s on 2 L per minute per nasal cannula. He denies any worsening shortness of breath. No cough or congestion. No hemoptysis. White count 11.1. Hemoglobin 11.0. Creatinine 0.77. He is currently on vancomycin and Levaquin. On 06/28/2018, the patient is doing well. He is hemodynamically stable. He still having on and off fever which is suspected to be related to the empyema and a right chest. Intervention radiology was consulted and the patient will have a pigtail catheter inserted tomorrow. He remains on the same antibiotic coverage. White cell count is at 9.5. No nausea. No vomiting. No diarrhea. No altered mentation. The blood culture has been negative thus far. On 06/29/2018 patient seen in follow-up on medical surgical floor. He is resting comfortably in bed, in no acute distress, he is awaiting his pigtail catheter placement for the right empyema/complicated parapneumonic effusion. He remains on IV antibiotics with Zosyn, and vancomycin. He is slightly diaphoretic, he did have fevers yesterday with the T-max of 101.1F at 07 20 4 in the morning. Lung sounds are positive for diminished breath sounds at bilateral bases and coarse rales. Remains on 2 L per nasal cannula with a pulse ox of 94%. These labs were reviewed, WBC is 9.2, hemoglobin is 10.8, electrolytes and renal profile are within normal limits. Blood and urine cultures show no growth. On 2017 patient seen in follow-up on medical surgical floor. His right chest pigtail catheter has drained 435 ML of purulent yellow material, his Pleur -evac is hooked up to low continuous suction. Today's chest x-ray was reviewed , showed improved aeration of the right lung, no evident pneumothorax, persistent patchy bibasilar density. Patient denies any fever or chills, seems to be less diaphoretic on today's exam. On sounds are positive for mesh breath sounds, and coarse crackles at bilateral bases. Labs reviewed, WBC is 9.7, hemoglobin is 11.7, platelet count is 722, electrolytes and renal profile are within normal limits. Yesterday we sent pleural fluid for cholesterol, and triglyceride as well as pH, to rule out remote possibility of chylothorax although pleural fluid clearly seems to be related to empyema. Cultures are pending. CT surgery is following, and patient has received TPA. ID service is following, patient is currently on Zosyn and vancomycin. On 07/01/2018 patient was reevaluated again. Sitting up in the chair, in no acute distress, states he occasionally has periods of pressure-like sensation in his right anterior chest, under the costal margin, but those episodes are short-lived lasting only a few seconds. Worsening shortness of breath, patient is currently on 2 L per nasal cannula, his pulse ox 94%, afebrile. He was dynamically stable, no altered mentation, labs were reviewed, WBC is 7.2, hemoglobin is 11.1, electrolytes and renal profile are within normal range. Pleural fluid cultures pending. Patient remains on a combination of antibiotics with Zosyn and vancomycin. CT surgery is planned and on infusion of TPA again today. Yesterday TPA infusion did not result in significant amount of drainage. CT chest was repeated last night, and showed marked interval improvement in posterior right basilar pleural fluid collection with pigtail catheter in place. From pulmonary perspective, we recommend surgery for decortication in view of the significant empyema, loculation of the effusions. On 07/02/2018 patient seen in follow-up on medical surgical floor. Having some increased discomfort in the right chest this morning, patient had another round of TPA infused today. Today's CT chest showed considerable improvements in the appearance of the right empyema. Castaneda afebrile, her marrow pulse ox is 93%. Total fluid cultures are still pending, she remains on the same antibiotics. working on incentive spirometer. Lung sounds reveal coarse crackles bilateral bases. Today's chest x-ray showed stable findings of right basilar pleural pigtail drainage catheter with minimal residual right pleural fluid. There is chronic parenchymal bibasilar scarring and/or atelectasis is more focal over right midlung. Objective - Vital Signs Vital signs: Vital Signs Temp 98.7 F 07/02/18 07:00 Pulse 88 07/02/18 11:22 Resp 16 07/02/18 08:00 BP 110/59 07/02/18 07:00 Pulse Ox 93 L 07/02/18 07:00 Intake & Output 07/01/18 07/02/18 07/02/18 18:59 06:59 18:59 Intake Total 500 Output Total 950 400 Balance -950 100 Weight 81.647 kg Intake: Oral 500 Output: Urine 950 400 Other: Voiding Method Urinal # Voids 2 # Bowel Movements 0 - Exam - GENERAL EXAM: Alert, active, comfortable in no apparent distress. HEAD: Normocephalic/atraumatic. EYES: Normal reaction of pupils, equal size. Conjunctiva pink, sclera white. NOSE: Clear with pink turbinates. THROAT: No erythema or exudates. NECK: No masses, no JVD, no thyroid enlargement, no adenopathy. CHEST: No chest wall deformity. Symmetrical expansion. Right posterior lower chest pigtail catheter is in place, connected to a Pleur-evac, and wall suction , and there has been 625 mL of purulent white-yellow drainage in the Pleur-evac LUNGS: Equal air entry with bibasilar crackles, and diminished breath sounds at the bases CVS: Regular rate and rhythm, normal S1 and S2, no gallops, no murmurs, no rubs ABDOMEN: Soft, nontender. No hepatosplenomegaly, normal bowel sounds, no guarding or rigidity. EXTREMITIES: No clubbing, no edema, no cyanosis, 2+ pulses and upper and lower extremities. Left lower extremity remains in the brace, recent antibiotic spacer MUSCULOSKELETAL: Muscle strength and tone normal. SPINE: No scoliosis or deformity SKIN: No rashes CENTRAL NERVOUS SYSTEM: Alert and oriented -3. No focal deficits, tone is normal in all 4 extremities. PSYCHIATRIC: Alert and oriented -3. Appropriate affect. Intact judgment and insight. - Labs CBC & Chem 7: 07/02/18 07:34 07/02/18 07:34 Labs: Abnormal Lab Results - Last 24 Hours (Table) 07/02/18 Range/Units 07:34 RBC 3.51 L (4.30-5.90) m/uL Hgb 10.9 L (13.0-17.5) gm/dL Hct 33.4 L (39.0-53.0) % Plt Count 795 H (150-450) k/uL Microbiology - Last 24 Hours (Table) 06/29/18 11:05 Gram Stain - Preliminary Pleural Fluid Body Fluid Culture - Preliminary 06/26/18 20:38 Blood Culture - Preliminary Blood No Growth after 120 hours Assessment and Plan Plan: #1 complicated empyema/parapneumonic effusion involving the right lung, status post CT-guided placement of right pigtail catheter with drainage of purulent drainage. The patient has also been on IV antibiotics for recent left knee removal and antibiotic spacer placed due to MRSA infection. Currently on vancomycin and Zosyn. PICC line in place. #2 Recent hospitalization for septic joint of MRSA in the left knee status post pacer placement. Remains in a brace. #3 Coronary artery disease with previous stent placement. #4 Chronic obstructive pulmonary disease with remote history of 40+ pack per day smoking history. #5 History of marijuana use. #6 Gastroesophageal reflux disease. #7 Severe rheumatoid arthritis most recently on methotrexate and prednisone. Plan Continue same antibiotic coverage, pleural fluid cultures still pending. No ongoing fever or chills. Increased discomfort at the chest area, alteplase was instilled again per CT surgery today without significant increase in drainage. We'll continue to follow with CT surgery and ID service. I performed a history & physical examination of the patient and discussed their management with my nurse practitioner, Yoselin Wiggins. I reviewed the nurse practitioner's note and agree with the documented findings and plan of care. Lung sounds are positive for bibasilar crackles. The findings and the impression was discussed with the patient. I attest to the documentation by the nurse practitioner. Time with Patient: Less than 30
--- NOTE | 2018-07-02 15:45 | P.PN ---
Subjective Progress Note Date: 07/02/18 Fletcher Sanabria is a 73-year-old male who was recently admitted to [facility] due to left knee septic arthroplasty, blood culture and left knee cultures were positive for MRSA patient was seen by infectious disease Dr. Paul he was started on IV vancomycin he was discharged to [facility] on the [facility] to complete his IV antibiotic course. Patient continued to have episodes of elevated temperature up to 102.2 despite IV antibiotic and multiple medication to control his fever, at that point patient was sent back to [facility] emergency room for reevaluation. Chest x-ray was done and revealed evidence of pleural thickening and the possibility of empyema should be considered, computed tomography scan of the chest was done in the emergency room and revealed evidence of loculated large right pleural effusion, with adjacent pulmonary infiltrate. IV Levaquin was added to regimen and patient was admitted to medical floor, pulmonary consultation, infectious disease consultation, and thoracic surgery consultation were requested. On 06/28/2018 patient is alert and oriented 3 in no apparent distress complaining of shortness of breath with activity complaining of cough otherwise no complaints at this time On 06/29/2018 patient is alert and oriented 3 resting comfortably in bed. denies chest pain or shortness of breath. Patient is on 2 liters nasal cannula. Plan for pigtail placement to right lower lobe lung today. Patient denies nausea vomiting or diarrhea. Denies any urinary burning or frequency. On 06/30/2018 patient is alert and oriented 3. Patient states he feels much improved since yesterday in regards to breathing. Patient states has been up walking. Patient did have detail placement yesterday to right lower lung. Patient did receive TPA to pigtail per cardiovascular surgeon services. At that time patient denies chest pain or shortness breath. Patient denies any nausea vomiting diarrhea. Patient denies any urinary burning or frequency. 07/01/2018 patient is alert and oriented 3. Patient is currently resting comfortably in bed. Patient denies chest pain or shortness breath. Patient denies nausea vomiting or diarrhea. Patient denies any urinary burning or frequency 07/02/2018 patient is resting comfortably in bed. Patient is alert and oriented 3. Denies chest pain or shortness breath. Patient denies nausea vomiting or diarrhea. Patient denies urinary burning or frequency Objective - Vital Signs Vital signs: Vital Signs Temp 98.0 F 07/02/18 15:00 Pulse 84 07/02/18 15:38 Resp 16 07/02/18 15:00 BP 112/63 07/02/18 15:00 Pulse Ox 95 07/02/18 15:00 Intake & Output 07/01/18 07/02/18 07/02/18 18:59 06:59 18:59 Intake Total 500 Output Total 168 659 0432 Balance -950 100 -1600 Weight 81.647 kg Intake: Oral 500 Output: Urine 982 143 3922 Other: Voiding Method Urinal # Voids 2 # Bowel Movements 0 - Exam In general patient is alert and oriented 3 in no apparent distress HEENT head normocephalic and atraumatic Neck is supple no JVD no goiter no lymphadenopathy no carotid bruit Chest exam reveals a few scattered crackles no wheezing Cardiac exam reveals regular heart sounds no gallops no murmurs Abdomen is soft nontender no organomegaly with normal bowel sounds Extremity exam reveals no edema, left knee with brace on, no cyanosis or clubbing Neurological examination reveals no gross focal deficit - Labs CBC & Chem 7: 07/02/18 07:34 07/02/18 07:34 Labs: Abnormal Lab Results - Last 24 Hours (Table) 07/02/18 Range/Units 07:34 RBC 3.51 L (4.30-5.90) m/uL Hgb 10.9 L (13.0-17.5) gm/dL Hct 33.4 L (39.0-53.0) % Plt Count 795 H (150-450) k/uL Microbiology - Last 24 Hours (Table) 06/29/18 11:05 Gram Stain - Preliminary Pleural Fluid Body Fluid Culture - Preliminary 06/26/18 20:38 Blood Culture - Preliminary Blood No Growth after 120 hours Assessment and Plan Assessment: #1 febrile illness with leukocytosis, possibly related to pneumonia with empyema , at this time IV Levaquin was added to her regimen, pulmonary consultation and infectious disease consultation were requested, also thoracic surgery consultation was requested. Patient had pigtail catheter inserted yesterday in interventional radiology. Patient also received alteplase to site per cardiovascular surgery. Patient to receive alteplase again today per cardiovascular surgery. Chest CT completed showing marked interval improvement in posterior right basilar pleural fluid collection with pigtail catheter in place. Other findings stable as there is moderate chronic emphysematous changes and anterior upper lung fibrosis. Per pulmonary decortication of the right lung may still be necessary in view of the significant loculation. Chest x-ray completed today, reviewed by pulmonology. Alteplase will be instilled today again per cardiovascular surgery #3 history of coronary artery disease stable at this time patient denies any chest pain, he denies any shortness of breath at this time #4 previous history of pancreatitis. #5 known history of rheumatoid arthritis, patient was on methotrexate in the past however this is on hold at this time due to acute infection since his last admission. #6 history of gastroesophageal reflux disease #7 underlying history of hyperlipidemia maintained on Lipitor. DVT prophylaxis lovenox and GI prophylaxis Pepcid I performed an examination of the patient and discussed their management with the Nurse Practitioner. I have reviewed the Nurse Practitioner's notes and agree with the documented findings and plan of care
[2018-07-02] MEDS: ATORVASTATIN 40 MG TAB PO SCH (20:41)
--- NOTE | 2018-07-02 22:59 | P.PN ---
Subjective Progress Note Date: 07/02/18 73-year-old male infectious disease service from his recent hospitalization which point in time he developed significant infection. Patient has a long-standing history of rheumatoid arthritis for about 25 years under the care of rheumatology with prednisone and infusions of methotrexate being done. Given the multiple infections methotrexate was placed on hold. On the last admission the patient evidence of extensive swelling to his left leg and he was left shoulder and he also had evidence of high-grade fevers and sepsis with leukocytosis. Purulent fluid from the left knee and left shoulder were found and the patient underwent surgical incision and drainage of both the sites. MRSA was isolated the patient was sent to rehab on intravenous antibiotic therapy with vancomycin. Patient now presents with 3 days of fever increasing shortness of breath and malaise. There is evidence of the extensive infiltration and thickening of the right lower lobe on x-ray. There is evidence of a large locular pleural effusion on the computed tomography scan. The patient is now status post pigtail catheter placement and fluid is been sent to the laboratory for cultures. Receiving respiratory treatments and oxygen therapy. Antibiotic therapy is with vancomycin and Zosyn that is started per the pulmonary service. Patient relates is feeling slightly better today. We'll have him back to rehab to complete his course of antibiotic therapy any further pulmonary interventions are being evaluated at this time. 07/02/2018 patient continues to have improvement. Is having minimal output from the pigtail catheter into the right pleural space. His breathing is remarkably improved. He feels better overall. Left knee is also improving. Asking orthopedics when the lakisha may be removed. Objective - Vital Signs Vital signs: Vital Signs Temp 98.6 F 07/02/18 22:54 Pulse 92 07/02/18 22:54 Resp 16 07/02/18 22:54 BP 104/63 07/02/18 22:54 Pulse Ox 94 L 07/02/18 22:54 Intake & Output 07/02/18 07/02/18 07/03/18 06:59 18:59 06:59 Intake Total 500 100 Output Total 400 1750 Balance 100 -1750 100 Weight 81.647 kg Intake: Oral 500 100 Output: Chest Tube Drainage 150 Chest Tube Right 150 Urine 400 1600 Other: Voiding Method Urinal Urinal # Voids 2 - Exam 73-year-old male who appears to be quite uncomfortable, but relates he is less short of breath and admission since the chest tube was placed. HEENT: Anicteric conjunctiva are pink and moist nasal mucosa grossly intact without significant lesions, there is no thrush. Neck: The neck is supple without significant lymphadenopathy or thyromegaly. Lungs: Symmetrical air entry with dullness and improved egophony to the right base few expiratory wheezes Heart: Regular rate and rhythm with an audible S1-S2, no S3 no S4. There is no significant murmur click or rub, PMI was nondisplaced. Abdomen: Positive bowel sounds soft and nontender without palpable masses or organomegaly. There was no guarding or rebound. Extremities: The upper extremities have excellent pulses they are symmetric, no significant petechiae or telangiectasia. No splinter hemorrhages were noted. The left knee shows evidence of the brace is in place. The significant swelling is improved. Purulent drainage is resolved. Still has distinct tenderness with any attempts to range of motion. Lakisha in place Neuro: Awake alert oriented to person place and time. There are no acute new gross focal sensory motor deficits. - Labs CBC & Chem 7: 07/02/18 07:34 07/02/18 07:34 Labs: Abnormal Lab Results - Last 24 Hours (Table) 07/02/18 Range/Units 07:34 RBC 3.51 L (4.30-5.90) m/uL Hgb 10.9 L (13.0-17.5) gm/dL Hct 33.4 L (39.0-53.0) % Plt Count 795 H (150-450) k/uL Microbiology - Last 24 Hours (Table) 06/26/18 20:38 Blood Culture - Final Blood No Growth after 144 hours 06/29/18 11:05 Gram Stain - Preliminary Pleural Fluid Body Fluid Culture - Preliminary Laboratory Results WBC 7.9 k/uL (3.8-10.6) 07/02/18 07:34 RBC 3.51 m/uL (4.30-5.90) L 07/02/18 07:34 Hgb 10.9 gm/dL (13.0-17.5) L 07/02/18 07:34 Hct 33.4 % (39.0-53.0) L 07/02/18 07:34 MCV 95.1 fL (80.0-100.0) 07/02/18 07:34 MCH 30.9 pg (25.0-35.0) 07/02/18 07:34 MCHC 32.5 g/dL (31.0-37.0) 07/02/18 07:34 RDW 13.7 % (11.5-15.5) 07/02/18 07:34 Plt Count 795 k/uL (150-450) H 07/02/18 07:34 Neutrophils % 61 % 07/02/18 07:34 Lymphocytes % 28 % 07/02/18 07:34 Monocytes % 5 % 07/02/18 07:34 Eosinophils % 3 % 07/02/18 07:34 Basophils % 0 % 07/02/18 07:34 Neutrophils # 4.8 k/uL (1.3-7.7) 07/02/18 07:34 Lymphocytes # 2.2 k/uL (1.0-4.8) 07/02/18 07:34 Monocytes # 0.4 k/uL (0-1.0) 07/02/18 07:34 Eosinophils # 0.3 k/uL (0-0.7) 07/02/18 07:34 Basophils # 0.0 k/uL (0-0.2) 07/02/18 07:34 Hypochromasia Slight 06/30/18 07:49 PT 10.3 sec (9.0-12.0) 06/26/18 20:38 INR 1.1 (<1.2) 06/26/18 20:38 APTT 29.1 sec (22.0-30.0) 06/26/18 20:38 Sodium 140 mmol/L (137-145) 07/02/18 07:34 Potassium 4.7 mmol/L (3.5-5.1) 07/02/18 07:34 Chloride 104 mmol/L (98-107) 07/02/18 07:34 Carbon Dioxide 29 mmol/L (22-30) 07/02/18 07:34 Anion Gap 7 mmol/L 07/02/18 07:34 BUN 13 mg/dL (9-20) 07/02/18 07:34 Creatinine 0.88 mg/dL (0.66-1.25) 07/02/18 07:34 Est GFR (CKD-EPI)AfAm >90 (>60 ml/min/1.73 sqM) 07/02/18 07:34 Est GFR (CKD-EPI)NonAf 87 (>60 ml/min/1.73 sqM) 07/02/18 07:34 Glucose 92 mg/dL (74-99) 07/02/18 07:34 Plasma Lactic Acid Harsh 0.8 mmol/L (0.7-2.0) 06/26/18 20:38 Calcium 8.4 mg/dL (8.4-10.2) 07/02/18 07:34 Total Bilirubin 0.4 mg/dL (0.2-1.3) 06/30/18 07:49 AST 26 U/L (17-59) 06/30/18 07:49 ALT 18 U/L (21-72) L 06/30/18 07:49 Alkaline Phosphatase 95 U/L (38-126) 06/30/18 07:49 Total Protein 6.0 g/dL (6.3-8.2) L 06/30/18 07:49 Albumin 2.7 g/dL (3.5-5.0) L 06/30/18 07:49 Urine Color Yellow 06/26/18 21:09 Urine Appearance Cloudy (Clear) 06/26/18 21:09 Urine pH 6.0 (5.0-8.0) 06/26/18 21:09 Ur Specific [place] 1.022 (1.001-1.035) 06/26/18 21:09 Urine Protein 1+ (Negative) H 06/26/18 21:09 Urine Glucose (UA) Negative (Negative) 06/26/18 21:09 Urine Ketones Negative (Negative) 06/26/18 21:09 Urine Blood Trace (Negative) H 06/26/18 21:09 Urine Nitrite Negative (Negative) 06/26/18 21:09 Urine Bilirubin Negative (Negative) 06/26/18 21:09 Urine Urobilinogen <2.0 mg/dL (<2.0) 06/26/18 21:09 Ur Leukocyte Esterase Negative (Negative) 06/26/18 21:09 Urine RBC 6 /hpf (0-5) H 06/26/18 21:09 Urine WBC 3 /hpf (0-5) 06/26/18 21:09 Ur Squamous Epith Cells <1 /hpf (0-4) 06/26/18 21:09 Amorphous Sediment Few /hpf (None) H 06/26/18 21:09 Urine Bacteria Occasional /hpf (None) H 06/26/18 21:09 Hyaline Casts 6 /lpf (0-2) H 06/26/18 21:09 Urine Mucus Moderate /hpf (None) H 06/26/18 21:09 Fluid Source Pleural 06/29/18 11:05 Fluid Color Yellow 06/29/18 11:05 Fluid Appearance Cloudy 06/29/18 11:05 Fluid RBC 600 /uL 06/29/18 11:05 Fluid Nucleated Cells 81122 /uL 06/29/18 11:05 Fluid Polynuclear WBCs 98 % 06/29/18 11:05 Fluid Mononuclear WBCs 2 % 06/29/18 11:05 Body Fluid Glucose Source Pleural Fluid 06/29/18 11:05 Fluid Glucose <4 mg/dL 06/29/18 11:05 Body Fluid Protein Source Pleural Fluid 06/29/18 14:50 Fluid Total Protein 1219 mg/dL 06/29/18 14:50 Body Fluid LDH Source Pleural Fluid 06/29/18 11:05 Fluid LDH 54400 U/L 06/29/18 11:05 Body Fluid Amylase Source Pleural Fluid 06/29/18 11:05 Fluid Amylase 28 U/L 06/29/18 11:05 Vancomycin Trough 17.9 ug/mL 07/01/18 05:46 Random Vancomycin 19.8 ug/mL 06/26/18 20:38 Microbiology 06/26/18 20:38 Blood Blood Culture - Final No Growth after 144 hours 06/29/18 11:05 Pleural Fluid Gram Stain - Preliminary 06/29/18 11:05 Pleural Fluid Body Fluid Culture - Preliminary 06/29/18 11:05 Pleural Fluid Anaerobic Culture - Preliminary 06/29/18 11:05 Pleural Fluid Fungal Culture - Preliminary 06/26/18 21:09 Urine,Voided Urine Culture - Final Assessment and Plan (1) Pleural effusion on right Current Visit: Yes Status: Acute Code(s): J90 - PLEURAL EFFUSION, NOT ELSEWHERE CLASSIFIED SNOMED Code(s): 50889103 (2) Rheumatoid arthritis Current Visit: Yes Status: Chronic Code(s): M06.9 - RHEUMATOID ARTHRITIS, UNSPECIFIED SNOMED Code(s): 04824663 (3) Septic arthritis of knee, left Narrative/Plan: 73-year-old male with a recent history of MRSA infection of his left knee that required surgical intervention also had evidence of bacteremia at that time. Once the bacteremia was cleared IV access was placed and the patient was sent to rehab to receive his course of intravenous antibiotic therapy with vancomycin. Now presents with evidence of empyema to the right chest. Pigtail catheter placed today and await culture results. May necessitate further antibiotic changes and may require surgical intervention if there is not further improvement. Patient fortunately is comfortable at this time. Tolerating vancomycin therapy well ,no evidence of any renal failure, will monitor anemia. Plan to complete his course of vancomycin therapy regarding the bacteremic infection of the left knee. 6 weeks planned will be going to extended care. Pulmonary is following and once drainage from the right pleural space diminishes further the catheter will be removed. Patient is remarkably less short of breath. Current Visit: Yes Status: Acute Code(s): M00.9 - PYOGENIC ARTHRITIS, UNSPECIFIED SNOMED Code(s): 442168639 (4) Injury of left rotator cuff Current Visit: Yes Status: Acute Code(s): S46.002A - UNSP INJ MUSC/TEND THE ROTATOR CUFF OF L SHOULDER, INIT SNOMED Code(s): 124424451
[2018-07-03] MEDS: PIPERACILLIN-TAZOBACTAM 3.375 GM in DEXTROSE/WATER 1 50ML.BAG IVPB SCH ×2 (00:54→08:27)
[2018-07-03] MEDS: HYDROmorphone 1 MG/ML 1 ML SYRINGE IVP PRN (01:13)
[2018-07-03] MEDS: oxyCODONE-APAP 10-325MG 1 EACH TAB PO SCH ×3 (03:21→14:33)
[2018-07-03 06:36] VITALS: TEMP 98.4
[2018-07-03] MEDS: VANCOMYCIN 2,000 MG in SODIUM CHLORIDE 0.9% 500 ML IVPB SCH ×2 (07:01→07:02)
[2018-07-03] MEDS: SODIUM CHLORIDE 0.9% 1,000 ML IV SCH (07:07)
--- NOTE | 2018-07-03 07:40 | XR ---
EXAMINATION TYPE: XR chest 1V portable DATE OF EXAM: 07/03/2018 HISTORY: Shortness of breath. COMPARISON: None. TECHNIQUE: Single view of the chest is submitted. FINDINGS: Demonstrated are scattered senescent parenchymal change. Right basilar pleural catheter is unchanged in position. No evidence for pneumothorax this time. Mild persistent pleural-parenchymal thickening r ight lung base. There is no evidence for focal infiltrate. The heart is stable. Hilar and mediastinal structures are within normal limits. Degenerative changes are seen of the dorsal spine. IMPRESSION: 1. Right basilar pleural catheter is unchanged in position. No evidence for pneumothorax this time. Mild persistent pleural-parenchymal thickening right lung base.
[2018-07-03 08:27] LABS: Basophils # (A) 0.1 k/uL (0-0.2); Basophils % (A) 1 %; Eosinophils # (A) 0.3 k/uL (0-0.7); Eosinophils % (A) 4 %; HCT 38.2 % (39.0-53.0); HGB 11.7 gm/dL (13.0-17.5); Hypochromasia Moderate; Lymphocytes % (A) 25 %; MCH 30.7 pg (25.0-35.0); MCHC 30.6 g/dL (31.0-37.0); Mean Platelet Volume 6.7; Monocytes # (A) 0.6 k/uL (0-1.0); Monocytes % (A) 7 %; Neutrophils # (A) 5.1 k/uL (1.3-7.7); Neutrophils % (A) 62 %; Platelet Count 895 k/uL (150-450); RBC 3.81 m/uL (4.30-5.90); RDW 13.8 % (11.5-15.5); WBC 8.2 k/uL (3.8-10.6)
[2018-07-03 08:28] LABS: MCV 100.3 fL (80.0-100.0)
[2018-07-03] MEDS: predniSONE 10 MG TAB PO SCH (08:28)
[2018-07-03] MEDS: FAMOTIDINE 20 MG TAB PO SCH (08:28)
[2018-07-03] MEDS: FUROSEMIDE 40 MG TAB PO SCH (08:28)
[2018-07-03] MEDS: ENOXAPARIN 40 MG/0.4 ML SYRINGE SQ SCH (08:28)
[2018-07-03] MEDS: ASPIRIN 81 MG PO SCH (08:28)
[2018-07-03] MEDS: FERROUS SULFATE 325 MG TAB PO SCH (08:28)
[2018-07-03] MEDS: IPRATROPIUM-ALBUTEROL 3 ML NEB INHALATION SCH ×3 (08:34→15:43)
[2018-07-03 08:54] LABS: Anion Gap 9 mmol/L; Blood Urea Nitrogen 16 mg/dL (9-20); Calcium 8.4 mg/dL (8.4-10.2); Carbon Dioxide 27 mmol/L (22-30); Chloride 105 mmol/L (98-107); Glucose 96 mg/dL (74-99); Potassium 4.3 mmol/L (3.5-5.1); Sodium 141 mmol/L (137-145)
--- NOTE | 2018-07-03 09:02 | P.CNOR ---
History of Present Illness - HPI Consult date: 07/03/18 Consult reason: other (Status post left knee antibiotic spacer placement) History of present illness: The patient is a 73-year-old male who is well-known to our practice who recently had a hardware removal and placement of left knee antibiotic spacer on 06/11/2018. The patient was discharged to skilled rehab upon discharge with IV antibiotics per Dr. Paul. The patient was readmitted for pulmonary issues. The patient has a chest tube currently but states that it might be removed today. Orthopedics was consulted for further care on his left knee. Today, the patient states that he is feeling well. He denies fever, chills, rigors, shortness breath, chest pain, and abdominal pain today. He denies any new issues with his left leg. He has been wearing the knee immobilizer and has been nonweightbearing since the surgery. No new complaints today. Review of Systems Constitutional: Denies chills, Denies fatigue, Denies fever Cardiovascular: Denies chest pain, Denies shortness of breath Respiratory: Denies cough Gastrointestinal: Denies diarrhea, Denies nausea, Denies vomiting Musculoskeletal: left: knee pain, knee stiffness Past Medical History Past Medical History: Coronary Artery Disease (CAD), COPD, GERD/Reflux, Hyperlipidemia, Pneumonia, Rheumatoid Arthritis (RA) Additional Past Medical History / Comment(s): History of pancreatitis, 2012 past medical record documents viral pericarditis but pt denies, gastritis, has home O2 at HS only but has not been using. History of Any Multi-Drug Resistant Organisms: MRSA Year Discovered:: 06/12/18 MDRO Source:: Blood, left knee wound culture Past Surgical History: Heart Catheterization With Stent (History of heart cath in November 2016 with a stent placed to his right coronary artery for a 80-90% stenosis to his RCA.), Joint Replacement, Orthopedic Surgery Additional Past Surgical History / Comment(s): Total L knee arthroplasty with a spacer in place, R total shoulder replaced, L ankle ORIF d/t fracture, EGD, left rotator cuff repair. right ankle sx Past Anesthesia/Blood Transfusion Reactions: No Reported Reaction Additional Past Anesthesia/Blood Transfusion Reaction / Comm: Pt states he has never recieved blood. Date of Last Stent Placement:: 12/10/16 Past Psychological History: No Psychological Hx Reported Smoking Status: Former smoker (Quit smoking in 2016.) Past Alcohol Use History: None Reported Additional Past Alcohol Use History / Comment(s): Patient was a smoker one to one and half packs per day for 40+ years and quit 2 years ago when he had cardiac stents done. He uses a synthetic marijuana at nighttime only for his arthritis to help him sleep. He denies any other street drug use, alcohol use. 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 He lives at home with his . Past Drug Use History: None Reported - Past Family History Sister(s) Family Medical History: Cancer Additional Family Medical History / Comment(s): pt's father had ra, mother had 16 children was healthy most of her life age 93 from dementia. Mother Family Medical History: Dementia Father Family Medical History: Rheumatoid Arthritis (RA) Medications and Allergies Home Medications Medication Instructions Recorded Confirmed Type Folic Acid 1 mg PO DAILY 01/12/18 06/28/18 History Aspirin 81 mg PO DAILY chew 06/17/18 06/28/18 Rx Atorvastatin [Lipitor] 40 mg PO HS tab 06/17/18 06/28/18 Rx Famotidine [Pepcid] 20 mg PO DAILY tab 06/17/18 06/28/18 Rx Furosemide [Lasix] 40 mg PO DAILY #30 tablet 06/17/18 06/28/18 Rx Ipratropium-Albuterol Nebulize 3 ml INHALATION RT-QID ampul.neb 06/17/18 Rx [Duoneb 0.5 mg-3 mg/3 ml Soln] Vancomycin 1,750 mg IVPB Q12H #168 vial 06/17/18 06/28/18 Rx oxyCODONE HCL/ACETAMINOPHEN 2 tab PO Q6H PRN 3 Days #24 tablet 06/17/18 Rx [Percocet 10-325 mg] Acetaminophen [Tylenol] 325 mg PO Q8H PRN 06/26/18 06/28/18 History Ferrous Sulfate [Iron] 325 mg PO BID@0900,1700 06/26/18 06/28/18 History Hylands Restful Legs Pm 2 tab PO DAILY PRN 06/26/18 06/28/18 History Ibuprofen [Motrin] 400 mg PO BID PRN 06/26/18 06/28/18 History SODIUM CHLORIDE 0.9% 20mL VL 10 ml IVPB BID 06/26/18 06/28/18 History [Sodium Chloride] predniSONE 10 mg PO DAILY 06/26/18 06/28/18 History Allergies Allergy/AdvReac Type Severity Reaction Status Date / Time No Known Allergies Allergy Verified 06/26/18 20:44 Physical Examination The patient does not appear in acute distress. Alert and orientated x3. Dressing is clean dry and intact. Incision appears fine with no erythema or active drainage. [place] were removed yesterday. Calf is soft and nontender. Good foot and ankle motion without difficulty. Sensation and circulatory status is intact. Results - Labs Labs: Abnormal Lab Results - Last 24 Hours (Table) 07/03/18 Range/Units 08:13 RBC 3.81 L (4.30-5.90) m/uL Hgb 11.7 L (13.0-17.5) gm/dL Hct 38.2 L (39.0-53.0) % MCV 100.3 H D (80.0-100.0) fL MCHC 30.6 L (31.0-37.0) g/dL Plt Count 895 H (150-450) k/uL Microbiology - Last 24 Hours (Table) 06/29/18 11:05 Gram Stain - Final Pleural Fluid Body Fluid Culture - Final 06/29/18 11:05 Anaerobic Culture - Preliminary Pleural Fluid 06/26/18 20:38 Blood Culture - Final Blood No Growth after 144 hours H & H 06/26/18 06/28/18 06/29/18 Range/Units 20:38 08:25 08:02 Hgb 11.0 L 11.3 L 10.8 L (13.0-17.5) gm/dL Hct 33.8 L 36.4 L 33.2 L (39.0-53.0) % 06/30/18 07/01/18 07/02/18 Range/Units 07:49 05:46 07:34 Hgb 11.7 L 11.1 L 10.9 L (13.0-17.5) gm/dL Hct 36.4 L 34.2 L 33.4 L (39.0-53.0) % 07/03/18 Range/Units 08:13 Hgb 11.7 L (13.0-17.5) gm/dL Hct 38.2 L (39.0-53.0) % Coagulation 06/26/18 Range/Units 20:38 INR 1.1 (<1.2) Result Diagrams: 07/03/18 08:13 07/03/18 08:13 Assessment and Plan (1) Septic arthritis of knee, left Current Visit: No Status: Acute Priority: Medium Code(s): M00.9 - PYOGENIC ARTHRITIS, UNSPECIFIED SNOMED Code(s): 059754178 (2) Status post hardware removal Current Visit: No Status: Acute Code(s): Z98.890 - OTHER SPECIFIED POSTPROCEDURAL STATES SNOMED Code(s): 105806091 Plan: The clinical findings were discussed with the patient. The case was also discussed with Dr. Fisher. Patient will continue IV antibiotics per Dr. Paul for approximately [address] Sonido Purvis will then remove the antibiotic spacer and complete a revision to the left total knee once cleared by infectious disease. Continue local wound care. Continue pain control. The patient will follow-up in our office as an outpatient once discharged from the hospital. We will sign off at this time and would be happy reevaluate the patient if orthopedic issues arise.
[2018-07-03] MEDS: FOLIC ACID 1 MG TAB PO SCH (11:19)
--- NOTE | 2018-07-03 13:38 | P.PN ---
Subjective Progress Note Date: 07/03/18 Principal diagnosis: complicated empyema/parapneumonic effusion involving the right lung. This is a very pleasant 73-year-old gentleman who follows with Dr. Samuel as his primary care physician. He has a history of coronary artery disease with previous stent placement, gastroesophageal reflux disease, chronic obstructive pulmonary disease and is a former smoker. The patient also has severe rheumatoid arthritis and has had multiple joint replacements including a right total shoulder and a total left knee. His knee was placed about 15 years ago. He presented here to the hospital in May of this year with a septic joint positive for MRSA. He subsequently undergone surgery and had a spacer placed. Following that he was in the intensive care unit on the mechanical ventilator with evidence of congestive heart failure. He was subsequently extubated and recovered and was transferred to [facility] for continued rehabilitation and IV antibiotics on 06/17/2018. He was brought back here to the emergency room yesterday for a 3 day history of fevers with a T-max of 102.2. Chest x-ray revealed consolidation and thickening of the right lower lobe. Subsequent computed tomography scan of the chest revealed a loculated large right pleural effusion in the posterior lung field. There is moderate adjacent pulmonary infiltrate and atelectasis. Similar infiltrate of the left lung base. Empyema is within the differential. He is seen today in consultation on the regular medical floor. He is awake and alert in no acute distress. He has been afebrile. He is maintaining good O2 saturations in the 90s on 2 L per minute per nasal cannula. He denies any worsening shortness of breath. No cough or congestion. No hemoptysis. White count 11.1. Hemoglobin 11.0. Creatinine 0.77. He is currently on vancomycin and Levaquin. On 06/28/2018, the patient is doing well. He is hemodynamically stable. He still having on and off fever which is suspected to be related to the empyema and a right chest. Intervention radiology was consulted and the patient will have a pigtail catheter inserted tomorrow. He remains on the same antibiotic coverage. White cell count is at 9.5. No nausea. No vomiting. No diarrhea. No altered mentation. The blood culture has been negative thus far. On 06/29/2018 patient seen in follow-up on medical surgical floor. He is resting comfortably in bed, in no acute distress, he is awaiting his pigtail catheter placement for the right empyema/complicated parapneumonic effusion. He remains on IV antibiotics with Zosyn, and vancomycin. He is slightly diaphoretic, he did have fevers yesterday with the T-max of 101.1F at 07 20 4 in the morning. Lung sounds are positive for diminished breath sounds at bilateral bases and coarse rales. Remains on 2 L per nasal cannula with a pulse ox of 94%. These labs were reviewed, WBC is 9.2, hemoglobin is 10.8, electrolytes and renal profile are within normal limits. Blood and urine cultures show no growth. On 2017 patient seen in follow-up on medical surgical floor. His right chest pigtail catheter has drained 435 ML of purulent yellow material, his Pleur -evac is hooked up to low continuous suction. Today's chest x-ray was reviewed , showed improved aeration of the right lung, no evident pneumothorax, persistent patchy bibasilar density. Patient denies any fever or chills, seems to be less diaphoretic on today's exam. On sounds are positive for mesh breath sounds, and coarse crackles at bilateral bases. Labs reviewed, WBC is 9.7, hemoglobin is 11.7, platelet count is 722, electrolytes and renal profile are within normal limits. Yesterday we sent pleural fluid for cholesterol, and triglyceride as well as pH, to rule out remote possibility of chylothorax although pleural fluid clearly seems to be related to empyema. Cultures are pending. CT surgery is following, and patient has received TPA. ID service is following, patient is currently on Zosyn and vancomycin. On 07/01/2018 patient was reevaluated again. Sitting up in the chair, in no acute distress, states he occasionally has periods of pressure-like sensation in his right anterior chest, under the costal margin, but those episodes are short-lived lasting only a few seconds. Worsening shortness of breath, patient is currently on 2 L per nasal cannula, his pulse ox 94%, afebrile. He was dynamically stable, no altered mentation, labs were reviewed, WBC is 7.2, hemoglobin is 11.1, electrolytes and renal profile are within normal range. Pleural fluid cultures pending. Patient remains on a combination of antibiotics with Zosyn and vancomycin. CT surgery is planned and on infusion of TPA again today. Yesterday TPA infusion did not result in significant amount of drainage. CT chest was repeated last night, and showed marked interval improvement in posterior right basilar pleural fluid collection with pigtail catheter in place. From pulmonary perspective, we recommend surgery for decortication in view of the significant empyema, loculation of the effusions. On 07/02/2018 patient seen in follow-up on medical surgical floor. Having some increased discomfort in the right chest this morning, patient had another round of TPA infused today. Today's CT chest showed considerable improvements in the appearance of the right empyema. Castaneda afebrile, her marrow pulse ox is 93. Total fluid cultures are still pending, she remains on the same antibiotics. working on incentive spirometer. Lung sounds reveal coarse crackles bilateral bases. Today's chest x-ray showed stable findings of right basilar pleural pigtail drainage catheter with minimal residual right pleural fluid. There is chronic parenchymal bibasilar scarring and/or atelectasis is more focal over right midlung. On 07/03/2018 patient seen in follow-up. This morning his right-sided pleural pigtail catheter was accidentally dislodged, and came out. Today's chest x-ray prior to discontinuation of the pleural catheter showed mild persistent oral parenchymal thickening at the right lung base, but overall no significant pleural fluid, much improved since placement of the pigtail catheter. No fever , no chills, patient is a lot less short of breath, has been getting to the bedside chair, and tolerating activity well. Blood cultures and urine cultures were negative, pleural abscess drainage cultures are still pending. Patient remains on Zosyn and vancomycin. Sandra have been removed from the left knee orthopedic surgery. Patient denies any specific complaints, lung sounds reveal bilateral crackles, at the bases, continue pulmonary toileting, incentive spirometry use. From pulmonary perspective patient can be discharged to [facility] subacute rehab, abiotic's per ID service recommendation. To follow-up in the pulmonary office with Dr. Guerrero Objective - Vital Signs Vital signs: Vital Signs Temp 98.4 F 07/03/18 06:35 Pulse 78 07/03/18 12:25 Resp 16 07/03/18 06:35 BP 99/53 07/03/18 06:35 Pulse Ox 93 L 07/03/18 06:35 Intake & Output 07/02/18 07/03/18 07/03/18 18:59 06:59 18:59 Intake Total 100 Output Total 1750 300 Balance -1750 -200 Weight 81.647 kg Intake: Oral 100 Output: Chest Tube Drainage 150 Chest Tube Right 150 Urine 1600 300 Other: Voiding Method Urinal - Exam - GENERAL EXAM: Alert, active, comfortable in no apparent distress. HEAD: Normocephalic/atraumatic. EYES: Normal reaction of pupils, equal size. Conjunctiva pink, sclera white. NOSE: Clear with pink turbinates. THROAT: No erythema or exudates. NECK: No masses, no JVD, no thyroid enlargement, no adenopathy. CHEST: No chest wall deformity. Symmetrical expansion. Right pleural pigtail catheter had been accidentally pulled out by the patient this morning LUNGS: Equal air entry with bibasilar crackles, and diminished breath sounds at the bases CVS: Regular rate and rhythm, normal S1 and S2, no gallops, no murmurs, no rubs ABDOMEN: Soft, nontender. No hepatosplenomegaly, normal bowel sounds, no guarding or rigidity. EXTREMITIES: No clubbing, no edema, no cyanosis, 2+ pulses and upper and lower extremities. Left lower extremity remains in the brace, recent antibiotic spacer MUSCULOSKELETAL: Muscle strength and tone normal. SPINE: No scoliosis or deformity SKIN: No rashes CENTRAL NERVOUS SYSTEM: Alert and oriented -3. No focal deficits, tone is normal in all 4 extremities. PSYCHIATRIC: Alert and oriented -3. Appropriate affect. Intact judgment and insight. - Labs CBC & Chem 7: 07/03/18 08:13 07/03/18 08:13 Labs: Abnormal Lab Results - Last 24 Hours (Table) 07/03/18 Range/Units 08:13 RBC 3.81 L (4.30-5.90) m/uL Hgb 11.7 L (13.0-17.5) gm/dL Hct 38.2 L (39.0-53.0) % MCV 100.3 H D (80.0-100.0) fL MCHC 30.6 L (31.0-37.0) g/dL Plt Count 895 H (150-450) k/uL Microbiology - Last 24 Hours (Table) 06/29/18 11:05 Gram Stain - Final Pleural Fluid Body Fluid Culture - Final 06/29/18 11:05 Anaerobic Culture - Preliminary Pleural Fluid 06/26/18 20:38 Blood Culture - Final Blood No Growth after 144 hours Assessment and Plan Plan: #1 complicated empyema/parapneumonic effusion involving the right lung, status post CT-guided placement of right pigtail catheter with drainage of purulent drainage. The patient has also been on IV antibiotics for recent left knee removal and antibiotic spacer placed due to MRSA infection. Currently on vancomycin and Zosyn. PICC line in place. #2 Recent hospitalization for septic joint of MRSA in the left knee status post pacer placement. Remains in a brace. #3 Coronary artery disease with previous stent placement. #4 Chronic obstructive pulmonary disease with remote history of 40+ pack per day smoking history. #5 History of marijuana use. #6 Gastroesophageal reflux disease. #7 Severe rheumatoid arthritis most recently on methotrexate and prednisone. Plan No ongoing fever or chills. Patient is calm and comfortable, much less short of breath, pigtail catheter was discontinued accidentally during ambulation this morning, chest x-ray from this morning did not show any significant fluid, showed mild pleural parenchymal changes. No acute complaints, no fever or chills. Patient can be discharged to [facility] on the [place] with antibiotics per ID service recommendations. Follow-up with Dr. Samuel in the office in one week. I performed a history & physical examination of the patient and discussed their management with my nurse practitioner, Yoselin Wiggins. I reviewed the nurse practitioner's note and agree with the documented findings and plan of care. Lung sounds are positive for bibasilar crackles. The findings and the impression was discussed with the patient. I attest to the documentation by the nurse practitioner. Time with Patient: Less than 30
--- NOTE | 2018-07-03 14:09 | P.DS ---
Providers Date of admission: 06/27/18 03:02 Expected date of discharge: 07/03/18 Attending physician: Abad Vaca Consults: 06/27/18 02:56 Consult Physician Routine Consulting Provider: Fletcher Paul Consult Reason/Comments: Pneumonia; Recent Septic Arthritis; Fever Do you want consulting provider notified?: Yes 06/27/18 02:57 Consult Physician Routine Consulting Provider: Alejandro Pinzon Consult Reason/Comments: Loculated right pleural effusion Do you want consulting provider notified?: Yes 06/27/18 07:11 Consult Physician Routine Consulting Provider: Gonzalez Samuel Consult Reason/Comments: pneumonia, pleural effusion Do you want consulting provider notified?: Yes 06/27/18 09:11 Consult Physician Routine Consulting Provider: Clarence Sweeney Consult Reason/Comments: empyema Do you want consulting provider notified?: Yes 07/02/18 13:44 Consult Physician Routine Consulting Provider: Tony Fisher Consult Reason/Comments: Post Operative, evalute lakisha for possible removal Do you want consulting provider notified?: Already Contacted Primary care physician: Ruthy Montemayor Hospital Course: Discharge diagnosis #1 febrile illness with leukocytosis, possibly related to pneumonia with empyema , at this time IV Levaquin was added to her regimen, pulmonary consultation and infectious disease consultation were requested, also thoracic surgery consultation was requested. Patient had pigtail catheter inserted yesterday in interventional radiology. Patient also received alteplase to site per cardiovascular surgery. Patient to receive alteplase again today per cardiovascular surgery. Chest CT completed showing marked interval improvement in posterior right basilar pleural fluid collection with pigtail catheter in place. Other findings stable as there is moderate chronic emphysematous changes and anterior upper lung fibrosis. Per pulmonary decortication of the right lung may still be necessary in view of the significant loculation. Chest x-ray completed today, reviewed by pulmonology. Alteplase will be instilled today again per cardiovascular surgery. Patient received a total of 3 days of alteplase instilled into pigtail. Pigtail catheter accidentally removed this a.m. Discussed case with Christine interiano per cardiovascular surgery. Patient has been cleared for discharge per cardiovascular surgery and pulmonary standpoint. Patient will continue vancomycin for an additional 6 weeks per infectious disease recommendation #3 history of coronary artery disease stable at this time patient denies any chest pain, he denies any shortness of breath at this time #4 previous history of pancreatitis. #5 known history of rheumatoid arthritis, patient was on methotrexate in the past however this is on hold at this time due to acute infection since his last admission. #6 history of gastroesophageal reflux disease #7 underlying history of hyperlipidemia maintained on Lipitor. Hospital course Fletcher Sanabria is a 73-year-old male who was recently admitted to [facility] due to left knee septic arthroplasty, blood culture and left knee cultures were positive for MRSA patient was seen by infectious disease Dr. Paul he was started on IV vancomycin he was discharged to [facility] on the [facility] to complete his IV antibiotic course. Patient continued to have episodes of elevated temperature up to 102.2 despite IV antibiotic and multiple medication to control his fever, at that point patient was sent back to [facility] emergency room for reevaluation. Chest x-ray was done and revealed evidence of pleural thickening and the possibility of empyema should be considered, computed tomography scan of the chest was done in the emergency room and revealed evidence of loculated large right pleural effusion, with adjacent pulmonary infiltrate. IV Levaquin was added to regimen and patient was admitted to medical floor, pulmonary consultation, infectious disease consultation, and thoracic surgery consultation were requested. On 06/28/2018 patient is alert and oriented 3 in no apparent distress complaining of shortness of breath with activity complaining of cough otherwise no complaints at this time On 06/29/2018 patient is alert and oriented 3 resting comfortably in bed. denies chest pain or shortness of breath. Patient is on 2 liters nasal cannula. Plan for pigtail placement to right lower lobe lung today. Patient denies nausea vomiting or diarrhea. Denies any urinary burning or frequency. On 06/30/2018 patient is alert and oriented 3. Patient states he feels much improved since yesterday in regards to breathing. Patient states has been up walking. Patient did have detail placement yesterday to right lower lung. Patient did receive TPA to pigtail per cardiovascular surgeon services. At that time patient denies chest pain or shortness breath. Patient denies any nausea vomiting diarrhea. Patient denies any urinary burning or frequency. 07/01/2018 patient is alert and oriented 3. Patient is currently resting comfortably in bed. Patient denies chest pain or shortness breath. Patient denies nausea vomiting or diarrhea. Patient denies any urinary burning or frequency 07/02/2018 patient is resting comfortably in bed. Patient is alert and oriented 3. Denies chest pain or shortness breath. Patient denies nausea vomiting or diarrhea. Patient denies urinary burning or frequency On 07/03/2018 is resting comfortably in bed. Patient is alert and oriented 3. Patient states that his shortness of breath is significantly improved. Pigtail catheter accidentally pulled out this a.m. Discussed case with Christine sharma per cardiovascular surgery. Patient is showing significant signs of improvement. Cleared for discharge from cardiovascular surgical standpoint and pulmonary standpoint. Patient will go back to [facility] to continue IV antibiotics with vancomycin per infectious disease Dr. Paul. Patient to be followed by Dr. Nola TOUSSAINT and comp ordered for 3 days I performed an examination of the patient and discussed their management with the Nurse Practitioner. I have reviewed the Nurse Practitioner's notes and agree with the documented findings and plan of care Patient Condition at Discharge: Stable Plan - Discharge Summary New Discharge Prescriptions: New Vancomycin 2,000 mg IVPB Q12H #104 vial Continue Folic Acid 1 mg PO DAILY Atorvastatin [Lipitor] 40 mg PO HS tab Ipratropium-Albuterol Nebulize [Duoneb 0.5 mg-3 mg/3 ml Soln] 3 ml INHALATION RT-QID ampul.neb Aspirin 81 mg PO DAILY chew Famotidine [Pepcid] 20 mg PO DAILY tab Furosemide [Lasix] 40 mg PO DAILY #30 tablet Acetaminophen [Tylenol] 325 mg PO Q8H PRN PRN Reason: Pain Or Fever > 100.5 Ferrous Sulfate [Iron] 325 mg PO BID@0900,1700 [place] Restful Legs Pm 2 tab PO DAILY PRN PRN Reason: cramps Ibuprofen [Motrin] 400 mg PO BID PRN PRN Reason: Pain SODIUM CHLORIDE 0.9% 20mL VL [Sodium Chloride] 10 ml IVPB BID oxyCODONE HCL/ACETAMINOPHEN [Percocet 10-325 mg] 2 tab PO Q6H PRN 3 Days #24 tablet PRN Reason: Pain Discontinued Vancomycin 1,750 mg IVPB Q12H #168 vial No Action predniSONE 10 mg PO DAILY Discharge Medication List Folic Acid 1 mg PO DAILY 01/12/18 [History] Aspirin 81 mg PO DAILY chew 06/17/18 [Rx] Atorvastatin [Lipitor] 40 mg PO HS tab 06/17/18 [Rx] Famotidine [Pepcid] 20 mg PO DAILY tab 06/17/18 [Rx] Furosemide [Lasix] 40 mg PO DAILY #30 tablet 06/17/18 [Rx] Ipratropium-Albuterol Nebulize [Duoneb 0.5 mg-3 mg/3 ml Soln] 3 ml INHALATION RT -QID ampul.neb 06/17/18 [Rx] Acetaminophen [Tylenol] 325 mg PO Q8H PRN 06/26/18 [History] Ferrous Sulfate [Iron] 325 mg PO BID@0900,1700 06/26/18 [History] [place] Restful Legs Pm 2 tab PO DAILY PRN 06/26/18 [History] Ibuprofen [Motrin] 400 mg PO BID PRN 06/26/18 [History] SODIUM CHLORIDE 0.9% 20mL VL [Sodium Chloride] 10 ml IVPB BID 06/26/18 [History] predniSONE 10 mg PO DAILY 06/26/18 [History] Vancomycin 2,000 mg IVPB Q12H #104 vial 07/03/18 [Rx] oxyCODONE HCL/ACETAMINOPHEN [Percocet 10-325 mg] 2 tab PO Q6H PRN 3 Days #24 tablet 07/03/18 [Rx] Follow up Appointment(s)/Referral(s): Fletcher Paul MD [STAFF PHYSICIAN] - 2 Weeks Sonido Purvis DO [Doctor of Osteopathic Medicine] - 2 Weeks Ruthy Montemayor DO [Primary Care Provider] - 1-2 days Ambulatory/Diagnostic Orders: Complete Blood Count w/diff [LAB.AMB] Time Frame: 3 Days, Location: None Selected Comprehensive Metabolic Panel [LAB.AMB] Time Frame: 3 Days, Location: None Selected Patient Instructions/Handouts: MRSA (Methicillin-Resistant Staphylococcus Aureus) (DC), Pleural Effusion (DC), Fall Prevention (DC) Activity/Diet/Wound Care/Special Instructions: Continue non-weightbearing to left leg Continue knee immobilizer at all times when out of bed Follow up in 10-14 days at [facility]. Patient being transferred to [facility]. Patient to be followed by Dr. Dr. Vaca Discharge Disposition: TRANSFER TO SNF/ECF
--- NOTE | 2018-07-03 14:16 | P.PN ---
Subjective Progress Note Date: 07/03/18 Principal diagnosis: Loculated right pleural effusion. History of rheumatoid arthritis, recent left knee septic arthroplasty with blood cultures and knee cultures positive for MRSA , COPD with home oxygen use, pneumonia and 2017, pancreatitis, coronary artery disease with previous stent placement to his RCA, GERD, hyperlipidemia, and previous tobacco dependence, quit in 2016. POD #4 insertion of pigtail catheter by interventional radiology. Patient is currently sitting up in bed in no acute distress. Denies shortness of breath, pain. No new complaints. Alteplase instilled into pigtail catheter yesterday without much increase in drainage. Patient remains afebrile with normal white blood cell count. Pleural cultures still pending. Pigtail catheter accidentally discontinued this morning by patient, however we were going to discontinue anyways. Objective - Vital Signs Vital signs: Vital Signs Temp 98.4 F 07/03/18 06:35 Pulse 78 07/03/18 12:25 Resp 16 07/03/18 06:35 BP 99/53 07/03/18 06:35 Pulse Ox 93 L 07/03/18 06:35 Intake & Output 07/02/18 07/03/18 07/03/18 18:59 06:59 18:59 Intake Total 100 Output Total 1750 300 Balance -1750 -200 Weight 81.647 kg Intake: Oral 100 Output: Chest Tube Drainage 150 Chest Tube Right 150 Urine 1600 300 Other: Voiding Method Urinal - Constitutional General appearance: Present: cooperative, no acute distress - Respiratory Details: Lungs sounds diminished bilaterally. Respirations even, nonlabored. Currently on room air with oxygen saturation 93%. Able to achieve 1500 mL on his incentive spirometry. Right sided pigtail catheter discontinued this morning, 140 mL blood tinged yellow fluid drained in the last 24 hours. - Cardiovascular Details: S1, S2 present. Regular rate and rhythm. Palpable peripheral pulses bilaterally. No edema present. No calf pain or tenderness noted. - Gastrointestinal Gastrointestinal Comment(s): Abdomen soft, nontender, nondistended. Active bowel sounds 4 quadrants. Tolerating diet. - Genitourinary Genitourinary Comment(s): Continues to void clear, yellow urine. - Integumentary Integumentary Comment(s): Skin is warm and dry with evidence of good perfusion. Well-healed surgical incisions present to left shoulder and left knee. Pigtail catheter site covered with dry dressing. - Neurologic Neurologic: Present: CNII-XII intact - Musculoskeletal Musculoskeletal: Present: gait normal, strength equal bilaterally - Psychiatric Psychiatric: Present: A&O x's 3, appropriate affect, intact judgment & insight - Allied health notes Allied health notes reviewed: nursing - Labs CBC & Chem 7: 07/03/18 08:13 07/03/18 08:13 Labs: Abnormal Lab Results - Last 24 Hours (Table) 07/03/18 Range/Units 08:13 RBC 3.81 L (4.30-5.90) m/uL Hgb 11.7 L (13.0-17.5) gm/dL Hct 38.2 L (39.0-53.0) % MCV 100.3 H D (80.0-100.0) fL MCHC 30.6 L (31.0-37.0) g/dL Plt Count 895 H (150-450) k/uL Microbiology - Last 24 Hours (Table) 06/29/18 11:05 Gram Stain - Final Pleural Fluid Body Fluid Culture - Final 06/29/18 11:05 Anaerobic Culture - Preliminary Pleural Fluid 06/26/18 20:38 Blood Culture - Final Blood No Growth after 144 hours - Imaging and Cardiology Chest x-ray: report reviewed, image reviewed Assessment and Plan (1) History of pneumonia Current Visit: Yes Status: Acute Code(s): Z87.01 - PERSONAL HISTORY OF PNEUMONIA (RECURRENT) SNOMED Code(s): 767478378 (2) History of septic arthritis Current Visit: Yes Status: Acute Code(s): Z87.39 - PERSONAL HISTORY OF DISEASES OF THE MS SYS AND CONN TISS SNOMED Code(s): 663339471 (3) Loculated pleural effusion Current Visit: Yes Status: Acute Code(s): J90 - PLEURAL EFFUSION, NOT ELSEWHERE CLASSIFIED SNOMED Code(s): 571804906 (4) Pleural effusion on right Current Visit: Yes Status: Acute Code(s): J90 - PLEURAL EFFUSION, NOT ELSEWHERE CLASSIFIED SNOMED Code(s): 25004382 (5) Bacteremia Current Visit: No Status: Resolved Code(s): R78.81 - BACTEREMIA SNOMED Code(s): 4754995 (6) COPD (chronic obstructive pulmonary disease) Current Visit: Yes Status: Chronic Code(s): J44.9 - CHRONIC OBSTRUCTIVE PULMONARY DISEASE, UNSPECIFIED SNOMED Code(s): 86267963 (7) History of pancreatitis Current Visit: No Status: Resolved Code(s): Z87.19 - PERSONAL HISTORY OF OTHER DISEASES OF THE DIGESTIVE SYSTEM SNOMED Code(s): 89494523564272 (8) Rheumatoid arthritis Current Visit: Yes Status: Chronic Code(s): M06.9 - RHEUMATOID ARTHRITIS, UNSPECIFIED SNOMED Code(s): 15729518 Plan: 1. Right-sided pigtail catheter placed Friday by interventional radiology. Discontinued today. 2. Encourage incentive spirometry use 10 times every hour while awake. 3. Antibiotics per infectious disease recommendations. 4. Increase activity, ambulate with crutches as tolerated. Nonweightbearing to left lower extremity. 5. GI prophylaxis with Pepcid. DVT prophylaxis with Lovenox. 6. Bronchodilators per pulmonology. 7. Medical management per primary care service. 8. May discharge from our standpoint. Please call us with any further questions. Time with Patient: Greater than 30
[2018-07-03 16:14] VITALS: BP 102/60; RESP 18
[2018-07-03 16:43] VITALS: PULSE 80
[2018-07-03] MEDS ORDERED: VANCOMYCIN 2,000 MG in SODIUM CHLORIDE 0.9% 500 ML IVPB SCH (18:00)
[2018-07-04] MEDS ORDERED: VANCOMYCIN TROUGH DUE 1 EACH MISC MISCELLANE ONE (05:00)
--- NOTE | 2018-07-04 08:20 | P.PN ---
Subjective Progress Note Date: 07/03/18 73-year-old male infectious disease service from his recent hospitalization which point in time he developed significant infection. Patient has a long-standing history of rheumatoid arthritis for about 25 years under the care of rheumatology with prednisone and infusions of methotrexate being done. Given the multiple infections methotrexate was placed on hold. On the last admission the patient evidence of extensive swelling to his left leg and he was left shoulder and he also had evidence of high-grade fevers and sepsis with leukocytosis. Purulent fluid from the left knee and left shoulder were found and the patient underwent surgical incision and drainage of both the sites. MRSA was isolated the patient was sent to rehab on intravenous antibiotic therapy with vancomycin. Patient now presents with 3 days of fever increasing shortness of breath and malaise. There is evidence of the extensive infiltration and thickening of the right lower lobe on x-ray. There is evidence of a large locular pleural effusion on the computed tomography scan. The patient is now status post pigtail catheter placement and fluid is been sent to the laboratory for cultures. Receiving respiratory treatments and oxygen therapy. Antibiotic therapy is with vancomycin and Zosyn that is started per the pulmonary service. Patient relates is feeling slightly better today. We'll have him back to rehab to complete his course of antibiotic therapy any further pulmonary interventions are being evaluated at this time. 07/02/2018 patient continues to have improvement. Is having minimal output from the pigtail catheter into the right pleural space. His breathing is remarkably improved. He feels better overall. Left knee is also improving. Asking orthopedics when the lakisha may be removed. 07/03/2018 patient has improved Thechest tube was accidentally dislodged with no difficulties earlier in the day.chest x-ray revealed no complication. Patient is now much improved. Patient is improved and is looking forward to his discharge to the extended care facility to complete his course of intravenous antibiotic therapy Objective - Vital Signs Vital signs: Vital Signs Temp 98.4 F 07/03/18 14:50 Pulse 80 07/03/18 15:52 Resp 18 07/03/18 14:50 BP 102/60 07/03/18 14:50 Pulse Ox 97 07/03/18 14:50 Intake & Output 07/03/18 07/03/18 07/04/18 06:59 18:59 06:59 Intake Total 100 Output Total 300 Balance -200 Intake: Oral 100 Output: Urine 300 Other: # Voids 1 - Exam 73-year-old male who appears to be quite uncomfortable, but relates he is less short of breath and admission since the chest tube was placed. HEENT: Anicteric conjunctiva are pink and moist nasal mucosa grossly intact without significant lesions, there is no thrush. Neck: The neck is supple without significant lymphadenopathy or thyromegaly. Lungs: Symmetrical air entry with dullness and improved egophony to the right base few expiratory wheezes Heart: Regular rate and rhythm with an audible S1-S2, no S3 no S4. There is no significant murmur click or rub, PMI was nondisplaced. Abdomen: Positive bowel sounds soft and nontender without palpable masses or organomegaly. There was no guarding or rebound. Extremities: The upper extremities have excellent pulses they are symmetric, no significant petechiae or telangiectasia. No splinter hemorrhages were noted. The left knee shows evidence of the brace is in place. The significant swelling is improved. Purulent drainage is resolved. Still has distinct tenderness with any attempts to range of motion. Lakisha in place Neuro: Awake alert oriented to person place and time. There are no acute new gross focal sensory motor deficits. - Labs CBC & Chem 7: 07/03/18 08:13 07/03/18 08:13 Labs: Abnormal Lab Results - Last 24 Hours (Table) 07/03/18 Range/Units 08:13 RBC 3.81 L (4.30-5.90) m/uL Hgb 11.7 L (13.0-17.5) gm/dL Hct 38.2 L (39.0-53.0) % MCV 100.3 H D (80.0-100.0) fL MCHC 30.6 L (31.0-37.0) g/dL Plt Count 895 H (150-450) k/uL Microbiology - Last 24 Hours (Table) 06/29/18 11:05 Gram Stain - Final Pleural Fluid Body Fluid Culture - Final 06/29/18 11:05 Anaerobic Culture - Preliminary Pleural Fluid 06/26/18 20:38 Blood Culture - Final Blood No Growth after 144 hours Laboratory Results WBC 8.2 k/uL (3.8-10.6) 07/03/18 08:13 RBC 3.81 m/uL (4.30-5.90) L 07/03/18 08:13 Hgb 11.7 gm/dL (13.0-17.5) L 07/03/18 08:13 Hct 38.2 % (39.0-53.0) L 07/03/18 08:13 MCV 100.3 fL (80.0-100.0) H D 07/03/18 08:13 MCH 30.7 pg (25.0-35.0) 07/03/18 08:13 MCHC 30.6 g/dL (31.0-37.0) L 07/03/18 08:13 RDW 13.8 % (11.5-15.5) 07/03/18 08:13 Plt Count 895 k/uL (150-450) H 07/03/18 08:13 Neutrophils % 62 % 07/03/18 08:13 Lymphocytes % 25 % 07/03/18 08:13 Monocytes % 7 % 07/03/18 08:13 Eosinophils % 4 % 07/03/18 08:13 Basophils % 1 % 07/03/18 08:13 Neutrophils # 5.1 k/uL (1.3-7.7) 07/03/18 08:13 Lymphocytes # 2.0 k/uL (1.0-4.8) 07/03/18 08:13 Monocytes # 0.6 k/uL (0-1.0) 07/03/18 08:13 Eosinophils # 0.3 k/uL (0-0.7) 07/03/18 08:13 Basophils # 0.1 k/uL (0-0.2) 07/03/18 08:13 Hypochromasia Moderate 07/03/18 08:13 PT 10.3 sec (9.0-12.0) 06/26/18 20:38 INR 1.1 (<1.2) 06/26/18 20:38 APTT 29.1 sec (22.0-30.0) 06/26/18 20:38 Sodium 141 mmol/L (137-145) 07/03/18 08:13 Potassium 4.3 mmol/L (3.5-5.1) 07/03/18 08:13 Chloride 105 mmol/L (98-107) 07/03/18 08:13 Carbon Dioxide 27 mmol/L (22-30) 07/03/18 08:13 Anion Gap 9 mmol/L 07/03/18 08:13 BUN 16 mg/dL (9-20) 07/03/18 08:13 Creatinine 0.94 mg/dL (0.66-1.25) 07/03/18 08:13 Est GFR (CKD-EPI)AfAm >90 (>60 ml/min/1.73 sqM) 07/03/18 08:13 Est GFR (CKD-EPI)NonAf 82 (>60 ml/min/1.73 sqM) 07/03/18 08:13 Glucose 96 mg/dL (74-99) 07/03/18 08:13 Plasma Lactic Acid Harsh 0.8 mmol/L (0.7-2.0) 06/26/18 20:38 Calcium 8.4 mg/dL (8.4-10.2) 07/03/18 08:13 Total Bilirubin 0.4 mg/dL (0.2-1.3) 06/30/18 07:49 AST 26 U/L (17-59) 06/30/18 07:49 ALT 18 U/L (21-72) L 06/30/18 07:49 Alkaline Phosphatase 95 U/L (38-126) 06/30/18 07:49 Total Protein 6.0 g/dL (6.3-8.2) L 06/30/18 07:49 Albumin 2.7 g/dL (3.5-5.0) L 06/30/18 07:49 Urine Color Yellow 06/26/18 21:09 Urine Appearance Cloudy (Clear) 06/26/18 21:09 Urine pH 6.0 (5.0-8.0) 06/26/18 21:09 Ur Specific [place] 1.022 (1.001-1.035) 06/26/18 21:09 Urine Protein 1+ (Negative) H 06/26/18 21:09 Urine Glucose (UA) Negative (Negative) 06/26/18 21:09 Urine Ketones Negative (Negative) 06/26/18 21:09 Urine Blood Trace (Negative) H 06/26/18 21:09 Urine Nitrite Negative (Negative) 06/26/18 21:09 Urine Bilirubin Negative (Negative) 06/26/18 21:09 Urine Urobilinogen <2.0 mg/dL (<2.0) 06/26/18 21:09 Ur Leukocyte Esterase Negative (Negative) 06/26/18 21:09 Urine RBC 6 /hpf (0-5) H 06/26/18 21:09 Urine WBC 3 /hpf (0-5) 06/26/18 21:09 Ur Squamous Epith Cells <1 /hpf (0-4) 06/26/18 21:09 Amorphous Sediment Few /hpf (None) H 06/26/18 21:09 Urine Bacteria Occasional /hpf (None) H 06/26/18 21:09 Hyaline Casts 6 /lpf (0-2) H 06/26/18 21:09 Urine Mucus Moderate /hpf (None) H 06/26/18 21:09 Fluid Source Pleural 06/29/18 11:05 Fluid Color Yellow 06/29/18 11:05 Fluid Appearance Cloudy 06/29/18 11:05 Fluid RBC 600 /uL 06/29/18 11:05 Fluid Nucleated Cells 74298 /uL 06/29/18 11:05 Fluid Polynuclear WBCs 98 % 06/29/18 11:05 Fluid Mononuclear WBCs 2 % 06/29/18 11:05 Body Fluid Glucose Source Pleural Fluid 06/29/18 11:05 Fluid Glucose <4 mg/dL 06/29/18 11:05 Body Fluid Protein Source Pleural Fluid 06/29/18 14:50 Fluid Total Protein 1219 mg/dL 06/29/18 14:50 Body Fluid LDH Source Pleural Fluid 06/29/18 11:05 Fluid LDH 47200 U/L 06/29/18 11:05 Body Fluid Amylase Source Pleural Fluid 06/29/18 11:05 Fluid Amylase 28 U/L 06/29/18 11:05 Vancomycin Trough 17.9 ug/mL 07/01/18 05:46 Random Vancomycin 19.8 ug/mL 06/26/18 20:38 Microbiology 06/29/18 11:05 Pleural Fluid Gram Stain - Final 06/29/18 11:05 Pleural Fluid Body Fluid Culture - Final 06/29/18 11:05 Pleural Fluid Anaerobic Culture - Preliminary 06/26/18 20:38 Blood Blood Culture - Final No Growth after 144 hours 06/29/18 11:05 Pleural Fluid Fungal Culture - Preliminary 06/26/18 21:09 Urine,Voided Urine Culture - Final Assessment and Plan (1) Pleural effusion on right Status: Acute Code(s): J90 - PLEURAL EFFUSION, NOT ELSEWHERE CLASSIFIED SNOMED Code(s): 17023207 (2) Rheumatoid arthritis Status: Chronic Code(s): M06.9 - RHEUMATOID ARTHRITIS, UNSPECIFIED SNOMED Code(s): 09703724 (3) Septic arthritis of knee, left Narrative/Plan: 73-year-old male with a recent history of MRSA infection of his left knee that required surgical intervention also had evidence of bacteremia at that time. Once the bacteremia was cleared IV access was placed and the patient was sent to rehab to receive his course of intravenous antibiotic therapy with vancomycin. Now presents with evidence of empyema to the right chest. Pigtail catheter placed today and await culture results. May necessitate further antibiotic changes and may require surgical intervention if there is not further improvement. Patient fortunately is comfortable at this time. Tolerating vancomycin therapy well ,no evidence of any renal failure, will monitor anemia. Plan to complete his course of vancomycin therapy regarding the bacteremic infection of the left knee. 6 weeks planned will be going to extended care. Pulmonary is following and once drainage from the right pleural space diminishes further the catheter will be removed. Patient is remarkably less short of breath. 07/03/2018 the patient is now considerably improved. The pleural catheter was actually dislodged, x-ray reveals evidence of no difficulties and no evidence of any pneumothorax. There is general resolution of the large pleural effusion. Her thoracic surgery will follow the outpatient setting but do not advise any further interventions at this time. The patient will be discharged back to the rehab facility to complete his 6 weeks of intravenous antibiotic therapy for his bacteremia infection from his left knee. He'll phone the office at the 3 week nicole. Status: Acute Code(s): M00.9 - PYOGENIC ARTHRITIS, UNSPECIFIED SNOMED Code(s ): 859141135 (4) Injury of left rotator cuff Status: Acute Code(s): S46.002A - UNSP INJ MUSC/TEND THE ROTATOR CUFF OF L SHOULDER, INIT SNOMED Code(s): 281488740
== END 2018-07-03 17:35 | DRG 177 ==
LOC: EC 19:51 → 4MS4W 06-27 03:02
PROVIDERS: ADMIT Internal Medicine; ATTEND Internal Medicine
PROC: 0W9930Z Drainage of Right Pleural Cavity with Drainage Device, Percutaneous Approach (ICD-10-PCS; principal; 2018-06-29)
PROC: 3E0L3GC Introduction of Other Therapeutic Substance into Pleural Cavity, Percutaneous Approach (ICD-10-PCS; 2018-06-30)
DX: J86.9 Pyothorax without fistula (principal); J18.9 Pneumonia, unspecified organism; J90 Pleural effusion, not elsewhere classified; J98.11 Atelectasis; M00.9 Pyogenic arthritis, unspecified; R78.81 Bacteremia; Z87.891 Personal history of nicotine dependence; B95.62 Methicillin resistant Staphylococcus aureus infection as the cause of diseases classified elsewhere; E78.5 Hyperlipidemia, unspecified; I25.10 Atherosclerotic heart disease of native coronary artery without angina pectoris; I50.9 Heart failure, unspecified; J44.9 Chronic obstructive pulmonary disease, unspecified; J84.10 Pulmonary fibrosis, unspecified; K21.9 Gastro-esophageal reflux disease without esophagitis; Z86.14 Personal history of Methicillin resistant Staphylococcus aureus infection; M06.9 Rheumatoid arthritis, unspecified; Z79.82 Long term (current) use of aspirin; Z82.0 Family history of epilepsy and other diseases of the nervous system; Z82.61 Family history of arthritis; Z87.01 Personal history of pneumonia (recurrent); Z95.5 Presence of coronary angioplasty implant and graft; Z96.611 Presence of right artificial shoulder joint; Z99.81 Dependence on supplemental oxygen; Z98.890 Other specified postprocedural states; Z79.2 Long term (current) use of antibiotics; Z79.899 Other long term (current) drug therapy
CPT/HCPCS: 32551; 36415; 71045; 71046; 71250; 71260; 77012; 80048; 80053; 80202; 81001; 82150; 82945; 83605; 83615; 84157; 85025; 85610; 85730; 87040; 87070; 87075; 87086; 87102; 87205; 89050; 93005; 94640; 94760; 96365; 99285

== ENCOUNTER 2018-07-22 08:46 | Day surgery (SDC) | payer MEDICARE ==
[2018-07-22 09:06] VITALS: BP 117/73; PULSE 83; RESP 18; TEMP 97.9
--- NOTE | 2018-07-22 09:34 | US ---
Ultrasound-guided therapeutic thoracentesis DATE OF EXAM: 07/22/2018 CLINICAL HISTORY: Right pleural effusion Patient had only a very small amount of pleural fluid and wished to defer the procedure. IMPRESSION: 1. Deferred right thoracentesis.
== END 2018-07-22 09:22 | disposition home or self-care (01) ==
LOC: RADPROMAIN 08:46
PROVIDERS: ATTEND Internal Medicine
DX: J90 Pleural effusion, not elsewhere classified (principal); Z53.8 Procedure and treatment not carried out for other reasons
CPT/HCPCS: 76604

== ENCOUNTER 2018-09-02 13:19 | Emergency (ER) | payer MEDICARE ==
[2018-09-02 13:34] VITALS: TEMP 97.3
[2018-09-02] MEDS ORDERED: HYDROmorphone 1 MG/ML 1 ML SYRINGE IVP STA (13:36)
--- NOTE | 2018-09-02 13:42 | ED ---
General Adult HPI - General Chief complaint: Syncope Stated complaint: SYNCOPAL EPISODE Time Seen by Provider: 09/02/18 13:24 Source: patient, EMS, RN notes reviewed Mode of arrival: EMS Limitations: no limitations - History of Present Illness Initial comments: Patient is a pleasant 73-year-old male presenting to the emergency department following syncopal episode. Patient was at his doctor's office having blood drawn when he passed out one or 2 times. Patient states he has had his blood drawn previously without any problems. Patient admits to being in pain. Patient believes she may have passed out from all the pain that he is having. Patient requests pain medication. Patient has chronic pain from severe rheumatoid disease as well as chronic left knee pain as well as dental extraction of his entire lower teeth yesterday. 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 Patient is scheduled to have it replaced and a couple of months. Patient has no infection at this time. Patient denies any chest pain or dyspnea. No confusion or weakness. - Related Data Home Medications Medication Instructions Recorded Confirmed Folic Acid 1 mg PO DAILY 01/12/18 09/02/18 oxyCODONE HCL/ACETAMINOPHEN 2 tab PO TID 09/02/18 09/02/18 [Percocet 10-325 mg] predniSONE 30 mg PO DAILY 09/02/18 09/02/18 Allergies Allergy/AdvReac Type Severity Reaction Status Date / Time No Known Allergies Allergy Verified 09/02/18 14:16 Review of Systems ROS Statement: Those systems with pertinent positive or pertinent negative responses have been documented in the HPI. ROS Other: All systems not noted in ROS Statement are negative. Constitutional: Denies: fever Eyes: Denies: eye pain ENT: Denies: ear pain Respiratory: Denies: cough, dyspnea Cardiovascular: Denies: chest pain Endocrine: Denies: fatigue Gastrointestinal: Denies: abdominal pain Genitourinary: Denies: dysuria Musculoskeletal: Denies: back pain Skin: Denies: rash Neurological: Denies: headache, weakness Past Medical History Past Medical History: Coronary Artery Disease (CAD), COPD, GERD/Reflux, Hyperlipidemia, Pneumonia, Rheumatoid Arthritis (RA) Additional Past Medical History / Comment(s): History of pancreatitis, 2012 past medical record documents viral pericarditis but pt denies, gastritis, has home O2 at HS only but has not been using. Fluid build up rt lung - previous chest tube - pt unsure what it is from, BOTTOM TEETH REMOVED 09-01-18 History of Any Multi-Drug Resistant Organisms: MRSA Date of last positivie culture/infection: 06/12/18 MDRO Source:: Blood, left knee wound culture Past Surgical History: Heart Catheterization With Stent, Joint Replacement, Orthopedic Surgery Additional Past Surgical History / Comment(s): Total L knee arthroplasty with a spacer in place, R total shoulder replaced, L ankle ORIF d/t fracture, EGD, left rotator cuff repair. right ankle sx, thoracentesis, chest tube rt lung Past Anesthesia/Blood Transfusion Reactions: No Reported Reaction Additional Past Anesthesia/Blood Transfusion Reaction / Comment(s): Pt states he has never recieved blood. Date of Last Stent Placement:: 12/10/16 Past Psychological History: No Psychological Hx Reported Smoking Status: Former smoker Past Alcohol Use History: None Reported Past Drug Use History: None Reported - Past Family History Sister(s) Family Medical History: Cancer Additional Family Medical History / Comment(s): pt's father had ra, mother had 16 children was healthy most of her life age 93 from dementia. Mother Family Medical History: Dementia Father Family Medical History: Rheumatoid Arthritis (RA) General Exam Limitations: physical limitation (Left knee) General appearance: alert, in no apparent distress Head exam: Present: atraumatic Eye exam: Present: normal appearance, PERRL, EOMI. Absent: nystagmus ENT exam: Present: other (Evidence of recent dental extractions lower gum without swelling or bleeding.) Neck exam: Present: normal inspection Respiratory exam: Present: normal lung sounds bilaterally Cardiovascular Exam: Present: regular rate, normal rhythm Expanded Peripheral pulses: 2+: Radial (R), Radial (L), Dorsalis Pedis (R), Dorsalis Pedis (L) GI/Abdominal exam: Present: soft. Absent: tenderness Extremities exam: Absent: pedal edema, calf tenderness Neurological exam: Present: alert, oriented X3, CN II-XII intact. Absent: motor sensory deficit (Slightly limited secondary to patient's left knee being removed. Lower extremity strength was determined upon dorsiflexion and plantar flexion.) Expanded Neurological exam: Present: protecting the airway Speech: Present: fluid speech Cranial nerves: EOM's Intact: Normal Sensory exam: Upper Extremity Light Touch: Normal, Lower Extremity Light Touch: Normal Motor strength exam: RUE: 5, LUE: 5, RLE: 5, LLE: 5 Eye Response: (4) open spontaneously Motor Response: (6) obeys commands Verbal Response: (5) oriented Psychiatric exam: Present: normal affect, normal mood Skin exam: Present: normal color Course Vital Signs 09/02/18 13:25 Temperature 97.3 F L Pulse Rate 96 Respiratory 16 Rate Blood Pressure 122/85 O2 Sat by Pulse 98 Oximetry EKG Findings - EKG Comments: EKG Findings:: Sinus bradycardia 55. Sinus arrhythmia. IL 150. QRS 82. QT 354. QTC 338. Normal axis. Normal QRS. Prominent T waves. Medical Decision Making - Medical Decision Making Patient reevaluated and resting comfortably in bed. Patient updated on results. Patient feels comfortable with discharge. Patient does request further pain medication for his chronic pain prior to being discharged. - Lab Data Result diagrams: 09/02/18 14:01 09/02/18 14:01 Lab Results 09/02/18 09/02/18 09/02/18 Range/Units 14:01 14:01 14:01 WBC 15.3 H (3.8-10.6) k/uL RBC 4.39 (4.30-5.90) m/uL Hgb 11.8 L (13.0-17.5) gm/dL Hct 38.5 L (39.0-53.0) % MCV 87.5 D (80.0-100.0) fL MCH 26.9 (25.0-35.0) pg MCHC 30.7 L (31.0-37.0) g/dL RDW 16.2 H (11.5-15.5) % Plt Count 645 H (150-450) k/uL Neutrophils % 65 % Lymphocytes % 28 % Monocytes % 4 % Eosinophils % 1 % Basophils % 1 % Neutrophils # 9.9 H (1.3-7.7) k/uL Lymphocytes # 4.3 (1.0-4.8) k/uL Monocytes # 0.6 (0-1.0) k/uL Eosinophils # 0.2 (0-0.7) k/uL Basophils # 0.1 (0-0.2) k/uL Hypochromasia Slight Anisocytosis Slight PT (9.0-12.0) sec INR (<1.2) APTT (22.0-30.0) sec Sodium 138 (137-145) mmol/L Potassium 4.2 (3.5-5.1) mmol/L Chloride 104 (98-107) mmol/L Carbon Dioxide 25 (22-30) mmol/L Anion Gap 9 mmol/L BUN 18 (9-20) mg/dL Creatinine 0.99 (0.66-1.25) mg/dL Est GFR (CKD-EPI)AfAm 88 (>60 ml/min/1.73 sqM) Est GFR (CKD-EPI)NonAf 76 (>60 ml/min/1.73 sqM) Glucose 114 H (74-99) mg/dL Calcium 9.3 (8.4-10.2) mg/dL Total Bilirubin 0.4 (0.2-1.3) mg/dL AST 22 (17-59) U/L ALT 18 L (21-72) U/L Alkaline Phosphatase 78 (38-126) U/L Total Creatine Kinase 71 (55-170) U/L CK-MB (CK-2) 0.9 (0.0-2.4) ng/mL CK-MB (CK-2) Rel Index 1.3 Troponin I <0.012 (0.000-0.034) ng/mL Total Protein 7.0 (6.3-8.2) g/dL Albumin 3.0 L (3.5-5.0) g/dL Urine Color Urine Appearance (Clear) Urine pH (5.0-8.0) Ur Specific [place] (1.001-1.035) Urine Protein (Negative) Urine Glucose (UA) (Negative) Urine Ketones (Negative) Urine Blood (Negative) Urine Nitrite (Negative) Urine Bilirubin (Negative) Urine Urobilinogen (<2.0) mg/dL Ur Leukocyte Esterase (Negative) 09/02/18 09/02/18 Range/Units 14:01 16:18 WBC (3.8-10.6) k/uL RBC (4.30-5.90) m/uL Hgb (13.0-17.5) gm/dL Hct (39.0-53.0) % MCV (80.0-100.0) fL MCH (25.0-35.0) pg MCHC (31.0-37.0) g/dL RDW (11.5-15.5) % Plt Count (150-450) k/uL Neutrophils % % Lymphocytes % % Monocytes % % Eosinophils % % Basophils % % Neutrophils # (1.3-7.7) k/uL Lymphocytes # (1.0-4.8) k/uL Monocytes # (0-1.0) k/uL Eosinophils # (0-0.7) k/uL Basophils # (0-0.2) k/uL Hypochromasia Anisocytosis PT 10.5 (9.0-12.0) sec INR 1.1 (<1.2) APTT 22.5 (22.0-30.0) sec Sodium (137-145) mmol/L Potassium (3.5-5.1) mmol/L Chloride (98-107) mmol/L Carbon Dioxide (22-30) mmol/L Anion Gap mmol/L BUN (9-20) mg/dL Creatinine (0.66-1.25) mg/dL Est GFR (CKD-EPI)AfAm (>60 ml/min/1.73 sqM) Est GFR (CKD-EPI)NonAf (>60 ml/min/1.73 sqM) Glucose (74-99) mg/dL Calcium (8.4-10.2) mg/dL Total Bilirubin (0.2-1.3) mg/dL AST (17-59) U/L ALT (21-72) U/L Alkaline Phosphatase (38-126) U/L Total Creatine Kinase (55-170) U/L CK-MB (CK-2) (0.0-2.4) ng/mL CK-MB (CK-2) Rel Index Troponin I (0.000-0.034) ng/mL Total Protein (6.3-8.2) g/dL Albumin (3.5-5.0) g/dL Urine Color Yellow Urine Appearance Clear (Clear) Urine pH 5.5 (5.0-8.0) Ur Specific [place] 1.021 (1.001-1.035) Urine Protein Trace H (Negative) Urine Glucose (UA) Negative (Negative) Urine Ketones Negative (Negative) Urine Blood Negative (Negative) Urine Nitrite Negative (Negative) Urine Bilirubin Negative (Negative) Urine Urobilinogen <2.0 (<2.0) mg/dL Ur Leukocyte Esterase Negative (Negative) - Radiology Data Radiology results: report reviewed (Computed tomography scan shows no pulmonary embolism. There is some scarring.) Disposition Clinical Impression: Vasovagal syncope Disposition: HOME SELF-CARE Condition: Stable Instructions: Syncope (ED) Additional Instructions: Please follow-up with primary care physician in the next day or 2 for recheck. Return for chest pain or difficulty breathing, weakness, passing out, worsening or change in symptoms or other concerns. Is patient prescribed a controlled substance at d/c from ED?: No Referrals: Ruthy Montemayor DO [Primary Care Provider] - 1-2 days Time of Disposition: 17:05
[2018-09-02 14:26] LABS: Anisocytosis Slight; Basophils # (A) 0.1 k/uL (0-0.2); Basophils % (A) 1 %; Eosinophils # (A) 0.2 k/uL (0-0.7); Eosinophils % (A) 1 %; HCT 38.5 % (39.0-53.0); HGB 11.8 gm/dL (13.0-17.5); Hypochromasia Slight; Lymphocytes # (A) 4.3 k/uL (1.0-4.8); Lymphocytes % (A) 28 %; MCH 26.9 pg (25.0-35.0); MCHC 30.7 g/dL (31.0-37.0); Mean Platelet Volume 6.6; Monocytes # (A) 0.6 k/uL (0-1.0); Monocytes % (A) 4 %; Neutrophils # (A) 9.9 k/uL (1.3-7.7); Neutrophils % (A) 65 %; Platelet Count 645 k/uL (150-450); RBC 4.39 m/uL (4.30-5.90); RDW 16.2 % (11.5-15.5); WBC 15.3 k/uL (3.8-10.6)
[2018-09-02 14:30] LABS: MCV 87.5 fL (80.0-100.0)
[2018-09-02 14:42] LABS: Calcium 9.3 mg/dL (8.4-10.2); Potassium 4.2 mmol/L (3.5-5.1); Total Bilirubin 0.4 mg/dL (0.2-1.3)
[2018-09-02 14:59] LABS: Creatine Kinase 71 U/L (55-170)
[2018-09-02 15:02] LABS: Creatine Kinase MB 0.9 ng/mL (0.0-2.4); Troponin I <0.012 ng/mL (0.000-0.034)
[2018-09-02 15:45] LABS: INR 1.1 (<1.2); Partial Thromboplastin Time 22.5 sec (22.0-30.0); Prothrombin Time 10.5 sec (9.0-12.0)
[2018-09-02 16:37] LABS: Appearance,Urine Clear (Clear); Bilirubin,Urine Negative (Negative); Blood,Urine Negative (Negative); Color,Urine Yellow; Glucose,Urine (UA) Negative (Negative); Ketones,Urine Negative (Negative); Leukocyte Esterase,Urine Negative (Negative); Nitrite,Urine Negative (Negative); PH, Urine 5.5 (5.0-8.0); Protein,Urine Trace (Negative); Specific Gravity,Urine 1.021 (1.001-1.035); Urobilinogen,Urine <2.0 mg/dL (<2.0)
--- NOTE | 2018-09-02 16:49 | CT ---
EXAMINATION TYPE: CT angio chest DATE OF EXAM: 09/02/2018 4:39 PM COMPARISON: November 21, 2017 HISTORY: Pain and syncope. CT DLP: 299.5 mGycm Automated exposure control for dose reduction was used. CONTRAST: CTA scan of the thorax is performed with IV Contrast, patient injected with 55 mL of Isovue 370, pulm onary embolism protocol. There are 3-D post processed images.. FINDINGS: There is patchy pulmonary emphysema. There is no mediastinal adenopathy. There are paratracheal lymph nodes measure up to 1 cm. Thoracic aorta is atheromatous. There is no evidence of aneurysm or dissec tion. There is a 5 mm area of plaque on the anterior wall of the ascending aorta. There are no hilar masses. There is mild pleural thickening at the lung bases. There is coarse infilt rate and atelectasis at the lung bases. There is a 3 cm cyst in the left lobe of the liver unchanged. There are small scattered splenic calci fied granulomata. I see no filling defects in the pulmonary arteries. There is spurring in the thoracic spine. There is no compression fracture. I see no focal bony destructive process. IMPRESSION: NO EVIDENCE OF PULMONARY EMBOLISM. THERE IS PLEURAL AND PULMONARY SCARRING AND ATELECTASIS AT THE REY G BASES. Pulmonary emphysema. No change compared to old exam.
[2018-09-02] MEDS ORDERED: MORPHINE SULFATE 2 MG/ML SYRINGE IVP STA (17:13)
[2018-09-02 17:18] VITALS: BP 101/68; PULSE 93; RESP 18
== END 2018-09-02 17:22 | disposition home or self-care (01) ==
LOC: EC 13:19
DX: R55 Syncope and collapse (principal); I25.10 Atherosclerotic heart disease of native coronary artery without angina pectoris; J44.9 Chronic obstructive pulmonary disease, unspecified; M06.9 Rheumatoid arthritis, unspecified; Z86.14 Personal history of Methicillin resistant Staphylococcus aureus infection; Z87.891 Personal history of nicotine dependence; Z79.52 Long term (current) use of systemic steroids; Z79.891 Long term (current) use of opiate analgesic; Z79.899 Other long term (current) drug therapy; Z95.5 Presence of coronary angioplasty implant and graft; Z96.611 Presence of right artificial shoulder joint
CPT/HCPCS: 36415; 93005; 80053; 82550; 82553; 84484; 85025; 85610; 85730; 81003; 71275; 99285; 96374; 96375; J2270; J1170; Q9967

== ENCOUNTER → 2018-09-15 | Outpatient (CLI) | payer MEDICARE | END | disposition home or self-care (01) | LOC: LABPAT 10:49 | PROVIDERS: ATTEND Orthopaedic Surgery | DX: Z01.812 Encounter for preprocedural laboratory examination (principal) | CPT/HCPCS: 87070 ==

== ENCOUNTER → 2018-09-18 | Outpatient (CLI) | payer MEDICARE ==
[2018-09-18 11:21] LABS: Anisocytosis Slight; HCT 39.7 % (39.0-53.0); HGB 12.3 gm/dL (13.0-17.5); Hypochromasia Slight; MCH 26.5 pg (25.0-35.0); MCHC 30.9 g/dL (31.0-37.0); MCV 85.9 fL (80.0-100.0); Platelet Count 740 k/uL (150-450); RBC 4.62 m/uL (4.30-5.90); RDW 16.3 % (11.5-15.5); WBC 12.9 k/uL (3.8-10.6)
[2018-09-18 11:24] LABS: Appearance,Urine Clear (Clear); Bilirubin,Urine Negative (Negative); Blood,Urine Negative (Negative); Color,Urine Yellow; Glucose,Urine (UA) Negative (Negative); INR 0.9 (<1.2); Ketones,Urine Trace (Negative); Leukocyte Esterase,Urine Negative (Negative); Nitrite,Urine Negative (Negative); PH, Urine 5.5 (5.0-8.0); Partial Thromboplastin Time 23.6 sec (22.0-30.0); Protein,Urine Trace (Negative); Prothrombin Time 9.9 sec (9.0-12.0); Specific Gravity,Urine 1.026 (1.001-1.035)
[2018-09-18 11:26] LABS: Albumin 3.2 g/dL (3.5-5.0); Calcium 9.4 mg/dL (8.4-10.2); Potassium 4.1 mmol/L (3.5-5.1); Total Bilirubin 0.2 mg/dL (0.2-1.3); Total Protein 7.3 g/dL (6.3-8.2)
== END | disposition home or self-care (01) ==
LOC: LABPAT 10:29
PROVIDERS: ATTEND Orthopaedic Surgery
DX: Z01.812 Encounter for preprocedural laboratory examination (principal); T84.54XA Infection and inflammatory reaction due to internal left knee prosthesis, initial encounter; M00.9 Pyogenic arthritis, unspecified; Z79.01 Long term (current) use of anticoagulants
CPT/HCPCS: 36415; 80053; 81003; 85027; 85610; 85730

== ENCOUNTER 2018-09-22 05:30 | Inpatient (IN) | payer MEDICARE ==
[2018-09-17 08:28] VITALS: BMI 28.0
[~2018-09-22 05:30] MED LIST changes: +ACETAMINOPHEN TAB 500 MG TAB PO ONE; -ALPRAZolam 0.25 MG TAB PO PRN; -ALPRAZolam 0.5 MG TAB PO PRN; -ASPIRIN 325 MG TAB PO STA; -ATORVASTATIN 80 MG TAB PO STA; +DEXAMETHASONE SOD PHOSPHATE 10 MG/ML 1 ML VIAL IV ONE; +LACTATED RINGERS 1,000 ML IV SCH; +LIDOCAINE 1% 20 ML VIAL (10MG/ML) FOR IV START INTRADERMA PRN; +MELOXICAM 7.5 MG TAB PO ONE; +MIDAZOLAM (PF) 2 MG/2 ML VIAL IV PRN; -NITROGLYCERIN SL TABS 0.4 MG TAB SUBLINGUAL PRN; +ONDANSETRON 4 MG/2 ML VIAL IVP ONE; -SODIUM CHLORIDE 0.9% 1,000 ML in EMPTY BAG 1 BAG IV ONE; +TRANEXAMIC ACID 1,000 MG in SODIUM CHLORIDE 0.9% 50 ML IVPB ONE; +VANCOMYCIN 1,250 MG in SODIUM CHLORIDE 0.9% 250 ML IVPB ONE
[2018-09-22] MEDS ORDERED: ROPIVACAINE 246.25 MG, EPINEPHrine 0.5 MG, KETOROLAC 30 MG, cloNIDine HCL/PF 80 MCG, WA... MISCELLANE ONE ×5 (05:57)
[2018-09-22 06:48] LABS: Glucose,Whole Blood 108 mg/dL (75-99)
[2018-09-22] MEDS ORDERED: fentaNYL (PF) 50 MCG/ML 2 ML AMP IV ONE (08:28)
[2018-09-22] MEDS ORDERED: ROPIVACAINE 1,100 MG, SODIUM CHLORIDE 0.9% 500 ML 330 ML MISCELLANE PRN ×2 (08:56)
--- NOTE | 2018-09-22 08:59 | P.ONQ ---
Anesthesiology Proc Note - PNB - Peripheral Nerve Block Performed Left Adductor Canal Infusion Procedure Start Time: 08:28 Procedure Stop Time: 08:40 Indication: Analgesia, Requested by physician Specifically requested for management of pain by DrJay: Sonido Purvis Sedation Type: Sedate with meaningful contact maintained Preparation: Sterile Dressing Position: Supine Catheter: Indwelling Needle Types: Other (see comment) (PUJUNK) Needle Size: 100mm (4") Needle Gauge: 20 Technique: Ultrasound Injectate: 0.5% Ropivacaine (see comment for volume) (20) Blood Aspirated: No Pain Paresthesia on Injection Noted: No Resistance on Injection: Normal Events: Uneventful and Well Tolerated
[2018-09-22] MEDS ORDERED: MAGNESIUM HYDROXIDE 2,400 MG/10 ML CUP PO PRN (09:00)
[2018-09-22] MEDS ORDERED: NA PHOS,M-B/NA PHOS,DI-BA 133 ML ENEMA RECTAL PRN (09:00)
[2018-09-22] MEDS ORDERED: BISACODYL 10 MG SUPP RECTAL PRN (09:00)
[2018-09-22] MEDS ORDERED: DIAZEPAM 5 MG TAB PO PRN (09:00)
[2018-09-22] MEDS ORDERED: NALOXONE 0.4 MG/ML 1 ML VIAL IV PRN (09:00)
[2018-09-22] MEDS ORDERED: HYDROmorphone 1 MG/ML 1 ML SYRINGE IVP PRN ×2 (09:00)
[2018-09-22] MEDS ORDERED: HYDROcodone/APAP 7.5-325MG 1 EACH TAB PO PRN (09:02)
[2018-09-22] MEDS ORDERED: MIDAZOLAM 2 MG/2 ML VIAL ONE (09:21)
[2018-09-22] MEDS ORDERED: fentaNYL (PF) 50 MCG/ML 2 ML AMP ONE (09:21)
[2018-09-22] MEDS ORDERED: PROPOFOL 10 MG/ML 20 ML VIAL IV ONE (09:21)
[2018-09-22] MEDS ORDERED: SODIUM CHLORIDE 0.9% 100 ML BAG ONE (09:21)
[2018-09-22] MEDS ORDERED: SUCCINYLCHOLINE CHLORIDE VIAL 200 MG/10 ML VIAL IV ONE (09:21)
[2018-09-22] MEDS ORDERED: TRANEXAMIC ACID 1,000 MG/10 ML VIAL ONE (09:21)
[2018-09-22] MEDS ORDERED: ceFAZolin 3,000 MG in SODIUM CHLORIDE 0.9% IRRIGATIO 3,000 ML IRRIGATION ONE (09:26)
[2018-09-22] MEDS ORDERED: TOBRAMYCIN SULFATE 1.2 GM VIAL MISCELLANE ONE (10:02)
[2018-09-22] MEDS ORDERED: VANCOMYCIN 1,000 MG VIAL MISCELLANE ONE (10:02)
[2018-09-22] MEDS: HYDROmorphone 1 MG/ML 1 ML SYRINGE IVP PRN ×6 (11:14→21:16)
--- NOTE | 2018-09-22 11:25 | P.OP ---
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 The articulation is Oxinium on polyethylene. Anesthesia: spinal Surgeon: Sonido Purvis Distribution Collection Operator #1: Bonnie Aaron Estimated Blood Loss (ml): 50 Pathology: other (Cultures 2. Frozen section) Condition: stable Disposition: PACU Indications for Procedure: This is a 73-year-old gentleman that had been treated by my partner, Dr. Tony Fisher for an infected left total knee arthroplasty. He has been appropriately treated with placement of an antibiotic spacer and IV antibiotics which at this point we have felt the infection to be cleared. Patient now presents for stage II revision of his left total knee arthroplasty. He is aware of the possibility of continuing infection, and informed consent was obtained. Operative Findings: The operative findings are consistent with a status post stage I revision left total knee arthroplasty with persistent infection Description of Procedure: Patient was seen in the preoperative area consent was reviewed and operative site was marked with a skin marker. An adductor canal pain catheter was placed by anesthesia in the preoperative area. Patient was then brought to the operating room and given preoperative antibiotics intravenously. A spinal anesthetic was administered by the anesthesia department. A tourniquet was placed on the upper thigh and the lower extremity was prepped and draped in usual sterile fashion. A gram of transexamic acid was given. A universal timeout was then performed which confirmed the patient's name, surgical site, ALLERGIES, and consent. The lower extremity was then exsanguinated and tourniquet was inflated to 250 mmHg. A standard and anterior midline approach to the knee was performed. The skin and subcutaneous tissue was dissected down to the patellar tendon. A medial parapatellar arthrotomy was then performed, at which time a large amount of purulent material was encountered. The knee was then extended, the patellar was everted, and the knee was again flexed. The knee was then cultured 2. The antibiotic spacer was then removed without difficulty. There is found to be significant bone involvement in any suspicious bone was removed with a Rominger. Also any suspicious soft tissue was removed. The knee was then irrigated with pulsatile lavage and also with Irrisept solution. Stimulan beads were then made and used as well. After a thorough irrigation and debridement, a new articulating spacer was then opened and lightly cemented in with antibiotic bone cement. The tourniquet was released and hemostasis was obtained. The posterior structures were injected with the ropivacaine solution , which consisted of 246.25 mg of ropivacaine, 0.5 mg of epinephrine, 30 mg of Toradol, 80 g of clonidine, and 48.45 mL of sterile water, for a total of 100 mL of fluid injected. After the cemented hardened. The tourniquet was released , and hemostasis was obtained. A second gram of transexamic acid was given. The knee was again irrigated. The fascia was then closed with #2 strata fix suture. The subcutaneous tissue was closed with 3-0 Vicryl and lakisha. The patient was placed in a sterile silver dressing. Patient was then transferred to recovery room in stable condition. The faculty research assistant APOLINAR Borden was required due the complexity surgery and the need for a skilled surgical assist. She assisted in positioning, draping, retraction, and closure of the wound.
[2018-09-22] MEDS: fentaNYL (PF) 50 MCG/ML 2 ML AMP IV PRN ×4 (11:47→12:53)
--- NOTE | 2018-09-22 14:06 | XR ---
EXAMINATION TYPE: XR knee limited LT DATE OF EXAM: 09/22/2018 CLINICAL HISTORY: Left knee pain and arthritis status post knee prosthesis replacement surgery. TECHNIQUE: Portable AP and crosstable lateral views of the left knee are obtained immediately postop eratively. COMPARISON: Left knee x-ray June 11, 2018 FINDINGS: Left knee prosthesis identified with innumerable rounded density surrounding metallic component at ti bial femoral joint. Surrounding density or cement material adjacent to metallic material is present. Overlying vertical skin lakisha are redemonstrated. Alignment is satisfactory. IMPRESSION: Overall satisfactory alignment.
[2018-09-22] MEDS ORDERED: LACTATED RINGERS 1,000 ML IV ONE (14:13)
--- NOTE | 2018-09-22 14:57 | P.CONS ---
History of Present Illness - Reason for Consult Consult date: 09/22/18 medical management Requesting physician: Bonnie Aaron - Chief Complaint Status post revision of left total knee arthroplasty - History of Present Illness This is a 73-year-old patient of Dr. Montemayor. Patient presented presented for an elective revision of his total left knee arthroplasty with removal of antibiotic spacer and placement of a new antibiotic spacer for persistent infection. Patient recently admitted in May for left knee septic arthroplasty. At that time patient underwent removal of hardware to left knee and left shoulder and placement of antibiotic spacer with Dr. Fisher. Patient was then DC to rehab. Patient then developed pneumonia with empyema and was readmitted for pigtail placement and pulmonary services evaluation. Patient was treated with 6 weeks of vancomycin for infectious disease recommendation. Patient states that over the past 2 month he's been doing well. Additional medical history includes heart cath with stents, COPD, GERD, hyperlipidemia, rheumatoid arthritis and pancreatitis. At this time patient is currently resting comfortably in bed post operative. Patient does have some discomfort to left knee. Patient denies any chest pain or shortness of breath. Patient did well with Dr. Samuel in the office yesterday prior to surgery. Patient denies any nausea vomiting or diarrhea. Patient denies any urinary burning or frequency. Review of Systems Please refer to HPI otherwise unremarkable Past Medical History Past Medical History: Coronary Artery Disease (CAD), COPD, GERD/Reflux, Hyperlipidemia, Pneumonia, Rheumatoid Arthritis (RA) Additional Past Medical History / Comment(s): History of pancreatitis, 2012 past medical record documents viral pericarditis but pt denies, gastritis, has home O2 at HS only but has not been using. Fluid build up rt lung - previous chest tube - pt unsure what it is from, BOTTOM TEETH REMOVED 09-01-18 History of Any Multi-Drug Resistant Organisms: MRSA Year Discovered:: 06/12/18 MDRO Source:: Blood, left knee wound culture Past Surgical History: Heart Catheterization With Stent, Joint Replacement, Orthopedic Surgery Additional Past Surgical History / Comment(s): Total L knee arthroplasty with a spacer in place, R total shoulder replaced, L ankle ORIF d/t fracture, EGD, left rotator cuff repair. right ankle sx, thoracentesis, chest tube rt lung Past Anesthesia/Blood Transfusion Reactions: No Reported Reaction Additional Past Anesthesia/Blood Transfusion Reaction / Comm: Pt states he has never recieved blood. Date of Last Stent Placement:: 12/10/16 Smoking Status: Former smoker - Past Family History Sister(s) Family Medical History: Cancer Additional Family Medical History / Comment(s): pt's father had ra, mother had 16 children was healthy most of her life age 93 from dementia. Mother Family Medical History: Dementia Father Family Medical History: Rheumatoid Arthritis (RA) Medications and Allergies Home Medications Medication Instructions Recorded Confirmed Type Folic Acid 1 mg PO DAILY 01/12/18 09/22/18 History oxyCODONE HCL/ACETAMINOPHEN 2 tab PO TID 09/02/18 09/22/18 History [Percocet 10-325 mg] predniSONE 10 mg PO TID 09/02/18 09/22/18 History Allergies Allergy/AdvReac Type Severity Reaction Status Date / Time No Known Allergies Allergy Verified 09/22/18 14:39 Physical Exam Vitals: Vital Signs Temp Pulse Pulse Resp BP Pulse Ox 09/22/18 14:05 64 16 98/55 100 09/22/18 13:46 64 16 94/56 100 09/22/18 13:15 64 16 96/56 100 09/22/18 13:00 63 16 103/59 100 09/22/18 12:45 63 16 97/61 100 09/22/18 12:31 68 16 107/62 100 09/22/18 12:15 68 16 104/60 100 09/22/18 12:00 71 16 101/60 98 09/22/18 11:47 72 16 117/65 100 09/22/18 11:30 78 16 111/65 100 09/22/18 11:15 76 16 110/62 100 09/22/18 11:05 97.4 F L 78 16 120/65 100 09/22/18 08:40 67 16 101/63 95 09/22/18 06:52 98.2 F 82 16 113/79 95 Intake and Output 09/21/18 09/22/18 09/22/18 22:59 06:59 14:59 Intake Total 100 1051 Output Total 50 Balance 100 1001 Intake: IV 100 1051 Output: Estimated Blood Loss 50 Head normocephalic Neck supple Lungs clear to auscultation bilaterally no wheezing or crackles Heart regular rate and rhythm S1-S2, no rub or gallop Abdomen is soft nontender nondistended positive bowel sounds no hepatosplenomegaly Extremities no edema. Left knee dressing clean dry and intact Neuro alert and orientated to 3 Results Labs: Abnormal Lab Results - Last 24 Hours (Table) 09/22/18 Range/Units 06:46 POC Glucose (mg/dL) 108 H (75-99) mg/dL Assessment and Plan Assessment: 1. Status post revision of left total knee arthroplasty with removal of antibiotic spacer and placement of a new antibiotic spacer for persistent infection with Dr. aden. Dr. Paul consulted. Patient currently on aspirin 325 twice a day per surgical services. Pain meds per surgical services. Dr. Paul has been consulted for infectious disease 2. History of left knee septic arthroplasty. Patient underwent drainage of left knee and hardware removal and antibiotic spacer placement with Dr. Fisher on 06/11/2018 3. History of Pneumonia with empyema. 06/27/2018 patient was treated with 6 weeks of vancomycin and pigtail placement that was later removed. Patient follows with Dr. Samuel per pulmonary team. 4. History of coronary artery disease. 5. History of pancreatitis. 6. History of rheumatoid arthritis 7. History of cancerous esophageal reflux disease. 8. History of hyperlipidemia Thank you for this consultation we will continue to follow patient closely throughout stay. AM labs have been ordered Time with Patient: Greater than 30 (Greater than 60% of the total time spent in counseling and coordination of care. I performed an examination of the patient and discussed their management with the Nurse Practitioner. I have reviewed the Nurse Practitioner's notes and agree with the documented findings and plan of care)
[2018-09-22] MEDS: HYDROcodone/APAP 7.5-325MG 1 EACH TAB PO PRN ×2 (16:13→21:13)
[2018-09-22] MEDS ORDERED: DIAZEPAM 5 MG TAB PO STA (16:21)
[2018-09-22] MEDS: KETOROLAC 30 MG/ML 1 ML VIAL IVP SCH ×2 (18:09→23:34)
[2018-09-22] MEDS: predniSONE 10 MG TAB PO SCH ×2 (18:09→20:08)
[2018-09-22] MEDS ORDERED: VANCOMYCIN 1,250 MG in SODIUM CHLORIDE 0.9% 250 ML IVPB ONE (19:00)
[2018-09-22] MEDS: SODIUM CHLORIDE 0.9% 1,000 ML IV SCH (19:20)
[2018-09-22] MEDS: ASPIRIN 325 MG TAB PO SCH (20:08)
[2018-09-22] MEDS: SENNOSIDES-DOCUSATE SODIUM 1 EACH TAB PO SCH (20:08)
[2018-09-22] MEDS: hydrOXYzine PAMOATE 25 MG CAP PO PRN (21:13)
--- NOTE | 2018-09-22 22:56 | P.CONS ---
History of Present Illness - Reason for Consult Consult date: 09/22/18 - Chief Complaint Left knee pain - History of Present Illness 73-year-old male infectious disease service from his recent hospitalization which point in time he developed significant infection. Patient has a long-standing history of rheumatoid arthritis for about 25 years under the care of rheumatology with prednisone and infusions of methotrexate being done. Given the multiple infections methotrexate was placed on hold. On the last admission the patient evidence of extensive swelling to his left leg and he was left shoulder and he also had evidence of high-grade fevers and sepsis with leukocytosis. Purulent fluid from the left knee and left shoulder were found and the patient underwent surgical incision and drainage of both the sites. MRSA was isolated the patient was sent to rehab on intravenous antibiotic therapy with vancomycin. The patient was treated with the many week course of intravenous antibiotic therapy with eventual improvement of both of the sites. He did have a hospitalization with a large pleural effusion that was drained that was culture negative however the patient was on antibiotic therapy with vancomycin. Patient now presents for elective revision of the left knee. She's been having some ongoing pain but the effusion was improved. 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 At that time a purulent fluid collection was encountered which was sent for culture. The knee was lavaged and there was an exchange of the antibiotic spacer performed. Review of Systems HEENT:Denies headache or acute visual change. Denies sinus or mouth discomforts. Denies neck stiffness or pain. Denies significant oral cavity pain. Denies difficulty on swallowing. Lungs: Shortness of breath improved with the thoracentesis Cardiovascular: Denies significant shortness of breath, chest pain, chest wall pain, orthopnea, dyspnea on exertion, syncope Gastrointestinal:Denies nausea, vomiting, diarrhea, constipation, hematemesis, melena, hematochezia. No no significant change of bowel habit noticed. Musculoskeletal: Patient has rheumatoid arthritis chronic joint pains ongoing left knee pain shoulder feeling somewhat better Skin: Denies new rash or lesions. No new ulcers or wounds are related.. Neuro: Denies headache or visual change. Denies any new onset weakness or difficulty with ambulation. Denies falls or seizures. Psychiatric:Denies anxiety or depression. Endocrine: Denies significant fatigue, denies significant weight loss or weight gain. Past Medical History Past Medical History: Coronary Artery Disease (CAD), COPD, GERD/Reflux, Hyperlipidemia, Pneumonia, Rheumatoid Arthritis (RA) Additional Past Medical History / Comment(s): History of pancreatitis, 2012 past medical record documents viral pericarditis but pt denies, gastritis, has home O2 at HS only but has not been using. Fluid build up rt lung - previous chest tube - pt unsure what it is from, BOTTOM TEETH REMOVED 09-01-18 History of Any Multi-Drug Resistant Organisms: MRSA Year Discovered:: 06/12/18 MDRO Source:: Blood, left knee wound culture Past Surgical History: Heart Catheterization With Stent, Joint Replacement, Orthopedic Surgery Additional Past Surgical History / Comment(s): Total L knee arthroplasty with a spacer in place, R total shoulder replaced, L ankle ORIF d/t fracture, EGD, left rotator cuff repair. right ankle sx, thoracentesis, chest tube rt lung Past Anesthesia/Blood Transfusion Reactions: No Reported Reaction Additional Past Anesthesia/Blood Transfusion Reaction / Comm: Pt states he has never recieved blood. Date of Last Stent Placement:: 12/10/16 Additional Psychological History / Comment(s): Patient was a smoker one to one and half packs per day for 40+ years and quit 2 years ago when he had cardiac stents done. He uses a synthetic marijuana at nighttime only for his arthritis to help him sleep. He denies any other street drug use, alcohol use. 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 He lives at home with his . Smoking Status: Former smoker - Past Family History Sister(s) Family Medical History: Cancer Additional Family Medical History / Comment(s): pt's father had ra, mother had 16 children was healthy most of her life age 93 from dementia. Mother Family Medical History: Dementia Father Family Medical History: Rheumatoid Arthritis (RA) Medications and Allergies Home Medications and Allergies Comment(s): Current Medications Hydrocodone Bitart/Acetaminophen ([place] 7.5-325) 1 each PO Q6H PRN PRN Reason: Pain Scale 1 to 5 Hydrocodone Bitart/Acetaminophen ([place] 7.5-325) 2 each PO Q6H PRN PRN Reason: Pain Scale 6 to 10 Last Admin: 09/22/18 21:13 Dose: 2 each Aspirin (Aspirin) 325 mg PO BID [facility] Last Admin: 09/22/18 20:08 Dose: 325 mg Bisacodyl (Dulcolax) 10 mg RECTAL DAILY PRN PRN Reason: Constipation Ropivacaine 1,100 mg/ Sodium (Chloride 330 ml) 0 mg MISCELLANE Q2H PRN PRN Reason: Breakthrough Pain Last Admin: 09/22/18 11:18 Dose: 1,100 mg Diazepam (Valium) 5 mg PO Q8H PRN PRN Reason: Muscle Spasm Hydromorphone HCl (Dilaudid) 0.125 mg IVP Q3HR PRN PRN Reason: Pain Scale 1 to 3 Hydromorphone HCl (Dilaudid) 0.25 mg IVP Q3HR PRN PRN Reason: Pain Scale 4 to 6 Hydromorphone HCl (Dilaudid) 0.5 mg IVP Q3HR PRN PRN Reason: Pain Scale 7 to 10 Last Admin: 09/22/18 21:16 Dose: 0.5 mg Hydroxyzine Pamoate (Vistaril) 25 mg PO Q4HR PRN PRN Reason: Nausea, Anxiety, Pain Control Last Admin: 09/22/18 21:13 Dose: 25 mg Sodium Chloride (Saline 0.9%) 1,000 mls @ 70 mls/hr IV .[id number] [facility] Last Admin: 09/22/18 19:20 Dose: Not Given Ketorolac Tromethamine (Toradol) 15 mg IVP Q6HR [facility] Stop: 09/26/18 16:20 Last Admin: 09/22/18 18:09 Dose: 15 mg Lidocaine HCl (.Xylocaine 1% Inj (10mg/Ml) For Iv Start) 0.1 ml INTRADERMA PER PROTOCOL PRN PRN Reason: IV Start Last Admin: 09/22/18 06:52 Dose: 0.1 ml Magnesium Hydroxide (Milk Of Magnesia) 2,400 mg PO DAILY PRN PRN Reason: Constipation Meloxicam (Mobic) 7.5 mg PO DAILY [facility] Naloxone HCl (Narcan) 0.2 mg IV Q2M PRN PRN Reason: Opioid Reversal Ondansetron HCl (Zofran) 4 mg IVP Q8HR PRN PRN Reason: Nausea And Vomiting Prednisone () 10 mg PO TID [facility] Last Admin: 09/22/18 20:08 Dose: 10 mg Senna/Docusate Sodium (Senokot-S) 2 each PO HS [facility] Last Admin: 09/22/18 20:08 Dose: 2 each Sodium Biphosphate/Sodium Phosphate (Fleet Adult) 133 ml RECTAL DAILY PRN PRN Reason: Constipation Home Medications Medication Instructions Recorded Confirmed Type Folic Acid 1 mg PO DAILY 01/12/18 09/22/18 History oxyCODONE HCL/ACETAMINOPHEN 2 tab PO TID 09/02/18 09/22/18 History [Percocet 10-325 mg] predniSONE 10 mg PO TID 09/02/18 09/22/18 History Allergies Allergy/AdvReac Type Severity Reaction Status Date / Time No Known Allergies Allergy Verified 09/22/18 14:39 Physical Exam Vitals: Vital Signs Temp Pulse Pulse Resp BP Pulse Ox 09/22/18 20:00 97.5 F L 66 18 112/49 98 09/22/18 15:00 97.6 F 82 16 100/59 95 09/22/18 14:05 64 16 98/55 100 09/22/18 13:46 64 16 94/56 100 09/22/18 13:15 64 16 96/56 100 09/22/18 13:00 63 16 103/59 100 09/22/18 12:45 63 16 97/61 100 09/22/18 12:31 68 16 107/62 100 09/22/18 12:15 68 16 104/60 100 09/22/18 12:00 71 16 101/60 98 09/22/18 11:47 72 16 117/65 100 09/22/18 11:30 78 16 111/65 100 09/22/18 11:15 76 16 110/62 100 09/22/18 11:05 97.4 F L 78 16 120/65 100 09/22/18 08:40 67 16 101/63 95 09/22/18 06:52 98.2 F 82 16 113/79 95 Intake and Output 09/22/18 09/22/18 09/22/18 06:59 14:59 22:59 Intake Total 100 1051 Output Total 50 Balance 100 1001 Intake: IV 100 1051 Output: Estimated Blood Loss 50 Other: Voiding Method Urinal Weight 81.193 kg 73-year-old male complaining of severe bouts of pain to the left knee despite the current pain management device HEENT: Anicteric conjunctiva are pink and moist nasal mucosa grossly intact without significant lesions, there is no thrush. Neck: The neck is supple without significant lymphadenopathy or thyromegaly. Lungs: Good bilateral air entry without significant crackles or wheezing. There is no significant bronchial sounds. There is no egophony or dullness. Heart: Regular rate and rhythm with an audible S1-S2, no S3 no S4. There is no significant murmur click or rub, PMI was nondisplaced. Abdomen: Positive bowel sounds soft and nontender without palpable masses or organomegaly. There was no guarding or rebound. Extremities: The joints of the hands and feet reveal evidence of deformity from rheumatoid arthritis no open ulcerations are seen. Left knee has a postoperative dressing in place from the recent revision arthroplasty. extremities are free from significant edema. The peripheral pulses were 2+ and symmetric. Neuro: Awake alert oriented to person place and time. There are no acute new gross focal sensory motor deficits. Results Labs: Abnormal Lab Results - Last 24 Hours (Table) 09/22/18 09/22/18 09/22/18 Range/Units 06:46 16:31 16:31 ESR 103 H (0-15) mm/hr POC Glucose (mg/dL) 108 H (75-99) mg/dL C-Reactive Protein 60.8 H (<10.0) mg/L Microbiology - Last 24 Hours (Table) 09/22/18 10:30 Gram Stain - Preliminary Knee - Left Wound Culture - Preliminary 09/22/18 10:30 Anaerobic Culture - Preliminary Knee - Left 09/22/18 10:30 Anaerobic Culture - Preliminary Knee - Left 09/22/18 10:30 Wound Culture - Preliminary Knee - Left Laboratory Results ESR 103 mm/hr (0-15) H 09/22/18 16:31 POC Glucose (mg/dL) 108 mg/dL (75-99) H 09/22/18 06:46 POC Glu Sensor Operator ID Nick Don 09/22/18 06:46 C-Reactive Protein 60.8 mg/L (<10.0) H 09/22/18 16:31 Microbiology 09/22/18 10:30 Knee - Left Gram Stain - Preliminary 09/22/18 10:30 Knee - Left Wound Culture - Preliminary 09/22/18 10:30 Knee - Left Anaerobic Culture - Preliminary 09/22/18 10:30 Knee - Left Anaerobic Culture - Preliminary 09/22/18 10:30 Knee - Left Wound Culture - Preliminary Assessment and Plan (1) Septic arthritis of knee, left Narrative/Plan: 73-year-old male with long-standing history of rheumatoid arthritis in a suppressive agents presents to Hospital for elective revision of the left total knee arthroplasty. At time of surgery evidence of grossly purulent material was found and sent to laboratory for culture. Revision of antibiotic spacer occurred and request for antimicrobial therapy was made. Patient is having some pain postoperatively which is related to the nurse who will help with the muscle spasms that he is suffering from. Cultures were further help correct antibiotic therapy utilizing vancomycin for now with his history of MRSA. The patient is at significant risk for infectious process due to his state of chronic immunocompromise from his rheumatoid arthritis. There is a potential that the current antibiotic spacer will be more long-term, with acute treatment with intravenous antibiotic therapy and then oral therapy to follow with late revision planned at some point in time in the future. We'll need to work with the discharge planners for placement to believe he needs to go to extended care to receive his intravenous antibiotic therapy. Current Visit: No Status: Acute Code(s): M00.9 - PYOGENIC ARTHRITIS, UNSPECIFIED SNOMED Code(s): 620279139 (2) Status post left knee replacement Current Visit: No Status: Acute Code(s): Z96.652 - PRESENCE OF LEFT ARTIFICIAL KNEE JOINT SNOMED Code(s): 4608099173199
[2018-09-22] MEDS: MELATONIN 5 MG TABLET PO PRN (23:35)
[2018-09-23] MEDS: SODIUM CHLORIDE 0.9% 1,000 ML IV SCH ×2 (00:57→16:31)
[2018-09-23] MEDS: DIAZEPAM 5 MG TAB PO PRN ×3 (01:48→20:14)
[2018-09-23] MEDS: HYDROmorphone 1 MG/ML 1 ML SYRINGE IVP PRN ×6 (03:16→20:14)
[2018-09-23] MEDS: hydrOXYzine PAMOATE 25 MG CAP PO PRN ×4 (03:17→22:44)
[2018-09-23] MEDS: HYDROcodone/APAP 7.5-325MG 1 EACH TAB PO PRN ×2 (03:17→08:55)
[2018-09-23] MEDS: KETOROLAC 30 MG/ML 1 ML VIAL IVP SCH ×4 (05:06→23:42)
[2018-09-23 07:41] LABS: Anisocytosis Slight; Basophils % (A) 0 %; Eosinophils % (A) 0 %; HCT 30.4 % (39.0-53.0); Hypochromasia Slight; Lymphocytes # (A) 2.8 k/uL (1.0-4.8); Lymphocytes % (A) 23 %; MCH 26.2 pg (25.0-35.0); MCHC 31.3 g/dL (31.0-37.0); MCV 83.9 fL (80.0-100.0); Mean Platelet Volume 7.1; Monocytes # (A) 0.5 k/uL (0-1.0); Monocytes % (A) 4 %; Neutrophils # (A) 8.7 k/uL (1.3-7.7); Neutrophils % (A) 71 %; Platelet Count 587 k/uL (150-450); RBC 3.63 m/uL (4.30-5.90); RDW 16.1 % (11.5-15.5); WBC 12.3 k/uL (3.8-10.6)
--- NOTE | 2018-09-23 07:44 | P.PN ---
Progress Note - Text Progress Note Date: 09/23/18 Postoperative day # 1 status post total knee arthroplasty, under General anesthesia, and adductor canal catheter placed for postoperative analgesia, currently at ropivacaine 0.2% 8 mL per hour and continuous infusion, visual analogue scale is 2/10, patient using oral pain medication for breakthrough pain. Assessment and plan= Acute postoperative pain, adductor canal catheter for pain control, pain is well controlled we'll continue the same management.
[2018-09-23 07:49] LABS: HGB 9.5 gm/dL (13.0-17.5)
[2018-09-23 07:52] LABS: ALT 19 U/L (21-72); AST 16 U/L (17-59); Albumin 2.6 g/dL (3.5-5.0); Alkaline Phosphatase 74 U/L (38-126); Anion Gap 5 mmol/L; Blood Urea Nitrogen 18 mg/dL (9-20); Calcium 9.1 mg/dL (8.4-10.2); Carbon Dioxide 27 mmol/L (22-30); Chloride 106 mmol/L (98-107); Glucose 122 mg/dL (74-99); Potassium 4.5 mmol/L (3.5-5.1); Sodium 138 mmol/L (137-145); Total Bilirubin 0.4 mg/dL (0.2-1.3)
[2018-09-23] MEDS: ONDANSETRON 4 MG/2 ML VIAL IVP PRN ×2 (08:09→16:03)
--- NOTE | 2018-09-23 08:47 | P.PN ---
Subjective Progress Note Date: 09/23/18 This is a 73-year-old male who is status post stage I revision left total knee arthroplasty with removal of antibiotic spacer and placement of a new antibiotic spacer. This is postoperative day #1 and patient is seen and evaluated at bedside with Dr. Sonido Purvis. Patient states that his pain is well controlled today. Patient denies any fever/chills, numbness, weakness, tingling, abdominal pain, shortness of breath or chest pain. Objective - Vital Signs Vital signs: Vital Signs Temp 97.9 F 09/23/18 07:05 Pulse 58 L 09/23/18 07:05 Resp 17 09/23/18 07:05 BP 150/76 09/23/18 07:05 Pulse Ox 96 09/23/18 07:05 Intake & Output 09/22/18 09/23/18 09/23/18 18:59 06:59 18:59 Intake Total 1051 875 Output Total 50 Balance 1001 875 Weight 81.193 kg Intake: IV 1051 Intake, IV Titration 875 Amount Sodium Chloride 0.9% 1, 875 000 ml @ 70 mls/hr IV . [id number] [facility] Rx#:[id number] Output: Estimated Blood Loss 50 Other: Voiding Method Urinal Urinal # Voids 2 - Exam Vital signs are stable. Patient is in no acute distress and is alert and oriented 3. Calf is soft and nontender to palpation. Dressing is clean, dry, and intact. Patient has full foot and ankle motion without pain or difficulty. Neurovascular status and circulatory status are intact. - Labs CBC & Chem 7: 09/23/18 07:12 09/23/18 07:12 Labs: Abnormal Lab Results - Last 24 Hours (Table) 09/22/18 09/22/18 09/23/18 Range/Units 16:31 16:31 07:12 WBC 12.3 H (3.8-10.6) k/uL RBC 3.63 L (4.30-5.90) m/uL Hgb 9.5 L D (13.0-17.5) gm/dL Hct 30.4 L (39.0-53.0) % RDW 16.1 H (11.5-15.5) % Plt Count 587 H (150-450) k/uL Neutrophils # 8.7 H (1.3-7.7) k/uL ESR 103 H (0-15) mm/hr Glucose (74-99) mg/dL AST (17-59) U/L ALT (21-72) U/L C-Reactive Protein 60.8 H (<10.0) mg/L Total Protein (6.3-8.2) g/dL Albumin (3.5-5.0) g/dL 09/23/18 Range/Units 07:12 WBC (3.8-10.6) k/uL RBC (4.30-5.90) m/uL Hgb (13.0-17.5) gm/dL Hct (39.0-53.0) % RDW (11.5-15.5) % Plt Count (150-450) k/uL Neutrophils # (1.3-7.7) k/uL ESR (0-15) mm/hr Glucose 122 H (74-99) mg/dL AST 16 L (17-59) U/L ALT 19 L (21-72) U/L C-Reactive Protein (<10.0) mg/L Total Protein 6.0 L (6.3-8.2) g/dL Albumin 2.6 L (3.5-5.0) g/dL Microbiology - Last 24 Hours (Table) 09/22/18 10:30 Gram Stain - Preliminary Knee - Left Wound Culture - Preliminary 09/22/18 10:30 Gram Stain - Preliminary Knee - Left Wound Culture - Preliminary 09/22/18 10:30 Anaerobic Culture - Preliminary Knee - Left 09/22/18 10:30 Anaerobic Culture - Preliminary Knee - Left Assessment and Plan (1) Infection of total left knee replacement Current Visit: Yes Status: Acute Code(s): T84.54XA - INFECT/INFLM REACTION DUE TO INTERNAL LEFT KNEE PROSTH, INIT; Z96.652 - PRESENCE OF LEFT ARTIFICIAL KNEE JOINT SNOMED Code(s): 419064355 (2) Status post revision of total replacement of left knee Current Visit: Yes Status: Acute Code(s): Z96.652 - PRESENCE OF LEFT ARTIFICIAL KNEE JOINT SNOMED Code(s): 077873727779354 Plan: 1. Continue routine postoperative care and pain control. 2. Cultures of the left knee are pending. 3. Weightbearing as tolerated to the left lower extremity. 4. DVT prophylaxis with aspirin. 5. Appreciate input from internal medicine and infectious disease. 6. IV antibiotics per infectious disease. 7. Possible discharge to ECF in the next 1-2 days for IV antibiotics.
--- NOTE | 2018-09-23 10:07 | P.PN ---
Subjective Progress Note Date: 09/23/18 This is a 73-year-old patient of Dr. Montemayor. Patient presented presented for an elective revision of his total left knee arthroplasty with removal of antibiotic spacer and placement of a new antibiotic spacer for persistent infection. Patient recently admitted in May for left knee septic arthroplasty. At that time patient underwent removal of hardware to left knee and left shoulder and placement of antibiotic spacer with Dr. Fisher. Patient was then DC to rehab. Patient then developed pneumonia with empyema and was readmitted for pigtail placement and pulmonary services evaluation. Patient was treated with 6 weeks of vancomycin for infectious disease recommendation. Patient states that over the past 2 month he's been doing well. Additional medical history includes heart cath with stents, COPD, GERD, hyperlipidemia, rheumatoid arthritis and pancreatitis. At this time patient is currently resting comfortably in bed post operative. Patient does have some discomfort to left knee. Patient denies any chest pain or shortness of breath. Patient did well with Dr. Samuel in the office yesterday prior to surgery. Patient denies any nausea vomiting or diarrhea. Patient denies any urinary burning or frequency. On 09/23/2018 patient is currently postop day 1. Patient is A & O 3. Patient is resting in bed. Patient is complaining of increased nausea. Patient did get Zofran. Patient remains on Dilaudid and [place] for pain control. Patient denies shortness of breath or chest pain. Patient denies any urinary frequency or burning Objective - Vital Signs Vital signs: Vital Signs Temp 97.9 F 09/23/18 07:05 Pulse 58 L 09/23/18 07:05 Resp 17 09/23/18 07:05 BP 150/76 09/23/18 07:05 Pulse Ox 96 09/23/18 07:05 Intake & Output 09/22/18 09/23/18 09/23/18 18:59 06:59 18:59 Intake Total 1051 875 Output Total 50 Balance 1001 875 Weight 81.193 kg Intake: IV 1051 Intake, IV Titration 875 Amount Sodium Chloride 0.9% 1, 875 000 ml @ 70 mls/hr IV . [id number] [facility] Rx#:[id number] Output: Estimated Blood Loss 50 Other: Voiding Method Urinal Urinal # Voids 2 - Exam Head normocephalic Neck supple Lungs clear to auscultation bilaterally no wheezing or crackles Heart regular rate and rhythm S1-S2, no rub or gallop Abdomen is soft nontender nondistended positive bowel sounds no hepatosplenomegaly Extremities no edema. Left knee dressing clean dry and intact Neuro alert and orientated to 3 - Labs CBC & Chem 7: 18 07:12 1218 07:12 Labs: Abnormal Lab Results - Last 24 Hours (Table) 09/22/18 09/22/18 09/23/18 Range/Units 16:31 16:31 07:12 WBC 12.3 H (3.8-10.6) k/uL RBC 3.63 L (4.30-5.90) m/uL Hgb 9.5 L D (13.0-17.5) gm/dL Hct 30.4 L (39.0-53.0) % RDW 16.1 H (11.5-15.5) % Plt Count 587 H (150-450) k/uL Neutrophils # 8.7 H (1.3-7.7) k/uL ESR 103 H (0-15) mm/hr Glucose (74-99) mg/dL AST (17-59) U/L ALT (21-72) U/L C-Reactive Protein 60.8 H (<10.0) mg/L Total Protein (6.3-8.2) g/dL Albumin (3.5-5.0) g/dL 09/23/18 Range/Units 07:12 WBC (3.8-10.6) k/uL RBC (4.30-5.90) m/uL Hgb (13.0-17.5) gm/dL Hct (39.0-53.0) % RDW (11.5-15.5) % Plt Count (150-450) k/uL Neutrophils # (1.3-7.7) k/uL ESR (0-15) mm/hr Glucose 122 H (74-99) mg/dL AST 16 L (17-59) U/L ALT 19 L (21-72) U/L C-Reactive Protein (<10.0) mg/L Total Protein 6.0 L (6.3-8.2) g/dL Albumin 2.6 L (3.5-5.0) g/dL Microbiology - Last 24 Hours (Table) 09/22/18 10:30 Gram Stain - Preliminary Knee - Left Wound Culture - Preliminary 09/22/18 10:30 Gram Stain - Preliminary Knee - Left Wound Culture - Preliminary 09/22/18 10:30 Anaerobic Culture - Preliminary Knee - Left 09/22/18 10:30 Anaerobic Culture - Preliminary Knee - Left Assessment and Plan Assessment: 1. Status post revision of left total knee arthroplasty with removal of antibiotic spacer and placement of a new antibiotic spacer for persistent infection with Dr. aden. Dr. Paul consulted. Patient currently on aspirin 325 twice a day per surgical services. Pain meds per surgical services. Dr. Paul has been consulted for infectious disease. 2. History of left knee septic arthroplasty. Patient underwent drainage of left knee and hardware removal and antibiotic spacer placement with Dr. Fisher on 06/11/2018 3. History of Pneumonia with empyema. 06/27/2018 patient was treated with 6 weeks of vancomycin and pigtail placement that was later removed. Patient follows with Dr. Samuel per pulmonary team. 4. History of coronary artery disease. 5. History of pancreatitis. 6. History of rheumatoid arthritis. Patient maintained on prednisone 10 mg 3 times a day 7. History of cancerous esophageal reflux disease. 8. History of hyperlipidemia 9. Nausea and vomiting. Patient to receive Zofran per surgical team. We'll order amylase and lipase level DVT prophylaxis aspirin. GI prophylaxis Protonix I performed an examination of the patient and discussed their management with the Nurse Practitioner. I have reviewed the Nurse Practitioner's notes and agree with the documented findings and plan of care
[2018-09-23] MEDS ORDERED: PANTOPRAZOLE 40 MG/10 ML VIAL IVP SCH ×2 (10:30→16:30)
[2018-09-23] MEDS: predniSONE 10 MG TAB PO SCH ×3 (10:31→22:43)
[2018-09-23] MEDS: ASPIRIN 325 MG TAB PO SCH ×2 (10:31→22:42)
[2018-09-23] MEDS: MELOXICAM 7.5 MG TAB PO SCH (10:32)
[2018-09-23] MEDS: oxyCODONE-APAP 10-325MG 1 EACH TAB PO PRN ×3 (10:35→22:43)
[2018-09-23] MEDS: PROCHLORPERAZINE 5 MG TAB PO PRN ×2 (10:36→22:44)
[2018-09-23 10:55] LABS: Amylase 109 U/L (30-110); Lipase 65 U/L (23-300)
[2018-09-23] MEDS ORDERED: PROMETHAZINE INJ 25 MG/ML 1 ML VIAL IM STA (17:15)
[2018-09-23] MEDS ORDERED: ONDANSETRON 4 MG/2 ML VIAL IVP PRN (17:16)
[2018-09-23] MEDS ORDERED: VANCOMYCIN IV PER PHARMACY 1 EACH MISC MISCELLANE PRN (17:36)
[2018-09-23] MEDS: VANCOMYCIN 1,750 MG in SODIUM CHLORIDE 0.9% 500 ML 500 ML IVPB SCH (18:23)
[2018-09-23] MEDS ORDERED: PROMETHAZINE INJ 25 MG/ML 1 ML VIAL IM ONE (20:00)
[2018-09-23] MEDS: PANTOPRAZOLE 40 MG/10 ML VIAL IVP SCH (22:42)
[2018-09-23] MEDS: SENNOSIDES-DOCUSATE SODIUM 1 EACH TAB PO SCH (22:42)
[2018-09-24] MEDS: HYDROmorphone 1 MG/ML 1 ML SYRINGE IVP PRN ×7 (00:33→22:57)
[2018-09-24] MEDS: oxyCODONE-APAP 10-325MG 1 EACH TAB PO PRN ×2 (04:38→18:08)
[2018-09-24] MEDS: hydrOXYzine PAMOATE 25 MG CAP PO PRN ×3 (04:39→18:15)
[2018-09-24] MEDS: VANCOMYCIN 1,750 MG in SODIUM CHLORIDE 0.9% 500 ML 500 ML IVPB SCH ×2 (05:29→18:09)
[2018-09-24] MEDS: KETOROLAC 30 MG/ML 1 ML VIAL IVP SCH ×3 (05:29→18:07)
[2018-09-24 07:26] LABS: ALT 17 U/L (21-72); AST 20 U/L (17-59); Albumin 2.7 g/dL (3.5-5.0); Alkaline Phosphatase 67 U/L (38-126); Anion Gap 6 mmol/L; Blood Urea Nitrogen 10 mg/dL (9-20); Calcium 9.1 mg/dL (8.4-10.2); Carbon Dioxide 27 mmol/L (22-30); Chloride 104 mmol/L (98-107); Glucose 104 mg/dL (74-99); Potassium 4.4 mmol/L (3.5-5.1); Sodium 137 mmol/L (137-145); Total Bilirubin 0.3 mg/dL (0.2-1.3); Total Protein 6.3 g/dL (6.3-8.2)
[2018-09-24] MEDS ORDERED: PANTOPRAZOLE 40 MG TABLET PO SCH (07:30)
[2018-09-24] MEDS: SODIUM CHLORIDE 0.9% 1,000 ML IV SCH ×2 (08:37→18:18)
[2018-09-24 08:45] LABS: Anisocytosis Slight; Basophils % (A) 0 %; Eosinophils % (A) 0 %; HCT 32.8 % (39.0-53.0); HGB 9.9 gm/dL (13.0-17.5); Hypochromasia Slight; Lymphocytes % (A) 21 %; MCH 25.3 pg (25.0-35.0); MCHC 30.2 g/dL (31.0-37.0); MCV 83.8 fL (80.0-100.0); Mean Platelet Volume 6.7; Monocytes # (A) 0.5 k/uL (0-1.0); Monocytes % (A) 5 %; Neutrophils % (A) 73 %; Platelet Count 666 k/uL (150-450); RBC 3.92 m/uL (4.30-5.90); RDW 16.1 % (11.5-15.5); WBC 9.6 k/uL (3.8-10.6)
--- NOTE | 2018-09-24 09:12 | P.PN ---
Subjective Progress Note Date: 09/24/18 This is a 73-year-old male who is status post stage I revision left total knee arthroplasty with removal of antibiotic spacer and placement of a new antibiotic spacer. This is postoperative day #2 and patient is seen and evaluated at bedside with Dr. Sonido Purvis. Patient does admit to some soreness in the left knee with walking. Patient denies any fever/chills, numbness, weakness, tingling, abdominal pain, shortness of breath or chest pain. Objective - Vital Signs Vital signs: Vital Signs Temp 98.4 F 09/24/18 07:00 Pulse 66 09/24/18 07:00 Resp 18 09/24/18 07:00 BP 155/76 09/24/18 07:00 Pulse Ox 97 09/24/18 07:00 Intake & Output 09/23/18 09/24/18 09/24/18 18:59 06:59 18:59 Intake Total 630 1480 Balance 630 1480 Intake: Intake, IV Titration 630 1180 Amount Sodium Chloride 0.9% 1, 630 560 000 ml @ 70 mls/hr IV . [id number] [facility] Rx#:[id number] Vancomycin 1,750 mg In 620 Sodium Chloride 0.9% 500 ml 500 ml @ 167 mls/hr IVPB Q12H [facility] Rx#: [id number] Oral 300 Other: Voiding Method Urinal Urinal # Voids 3 - Exam Vital signs are stable. Patient is in no acute distress and is alert and oriented 3. Calf is soft and nontender to palpation. Dressing is clean, dry, and intact. Patient has full foot and ankle motion without pain or difficulty. Neurovascular status and circulatory status are intact. - Labs CBC & Chem 7: 09/24/18 06:31 09/24/18 06:31 Labs: Abnormal Lab Results - Last 24 Hours (Table) 09/24/18 09/24/18 Range/Units 06:31 06:31 RBC 3.92 L (4.30-5.90) m/uL Hgb 9.9 L (13.0-17.5) gm/dL Hct 32.8 L (39.0-53.0) % MCHC 30.2 L (31.0-37.0) g/dL RDW 16.1 H (11.5-15.5) % Plt Count 666 H (150-450) k/uL Glucose 104 H (74-99) mg/dL ALT 17 L (21-72) U/L Albumin 2.7 L (3.5-5.0) g/dL Microbiology - Last 24 Hours (Table) 09/22/18 16:31 Blood Culture - Preliminary Blood No Growth after 24 hours 09/22/18 10:30 Gram Stain - Preliminary Knee - Left Wound Culture - Preliminary Presumptive MRSA 09/22/18 10:30 Gram Stain - Preliminary Knee - Left Wound Culture - Preliminary Presumptive MRSA Assessment and Plan Assessment: COPD GERD Hyperlipidemia Chronic arthritis History of pancreatitis (1) Infection of total left knee replacement Current Visit: Yes Status: Acute Code(s): T84.54XA - INFECT/INFLM REACTION DUE TO INTERNAL LEFT KNEE PROSTH, INIT; Z96.652 - PRESENCE OF LEFT ARTIFICIAL KNEE JOINT SNOMED Code(s): 113020967 (2) Status post revision of total replacement of left knee Current Visit: Yes Status: Acute Code(s): Z96.652 - PRESENCE OF LEFT ARTIFICIAL KNEE JOINT SNOMED Code(s): 039871954879044 Plan: 1. Continue routine postoperative care and pain control. 2. Cultures of the left knee are pending. 3. Weightbearing as tolerated to the left lower extremity. 4. DVT prophylaxis with aspirin. 5. Appreciate input from internal medicine and infectious disease. 6. IV antibiotics per infectious disease. 7. Anticipate discharge home or to ECF in the next 1-2 days.
[2018-09-24] MEDS: PANTOPRAZOLE 40 MG/10 ML VIAL IVP SCH ×2 (09:18→22:58)
[2018-09-24] MEDS: ASPIRIN 325 MG TAB PO SCH ×2 (09:18→22:58)
[2018-09-24] MEDS: MELOXICAM 7.5 MG TAB PO SCH (09:22)
[2018-09-24] MEDS: predniSONE 10 MG TAB PO SCH ×3 (09:30→22:59)
--- NOTE | 2018-09-24 10:00 | P.PN ---
Subjective Progress Note Date: 09/24/18 This is a 73-year-old patient of Dr. Montemayor. Patient presented presented for an elective revision of his total left knee arthroplasty with removal of antibiotic spacer and placement of a new antibiotic spacer for persistent infection. Patient recently admitted in May for left knee septic arthroplasty. At that time patient underwent removal of hardware to left knee and left shoulder and placement of antibiotic spacer with Dr. Fisher. Patient was then DC to rehab. Patient then developed pneumonia with empyema and was readmitted for pigtail placement and pulmonary services evaluation. Patient was treated with 6 weeks of vancomycin for infectious disease recommendation. Patient states that over the past 2 month he's been doing well. Additional medical history includes heart cath with stents, COPD, GERD, hyperlipidemia, rheumatoid arthritis and pancreatitis. At this time patient is currently resting comfortably in bed post operative. Patient does have some discomfort to left knee. Patient denies any chest pain or shortness of breath. Patient did well with Dr. Samuel in the office yesterday prior to surgery. Patient denies any nausea vomiting or diarrhea. Patient denies any urinary burning or frequency. On 09/23/2018 patient is currently postop day 1. Patient is A & O 3. Patient is resting in bed. Patient is complaining of increased nausea. Patient did get Zofran. Patient remains on Dilaudid and [place] for pain control. Patient denies shortness of breath or chest pain. Patient denies any urinary frequency or burning On 09/24/2018 patient is currently 2 patient is alert and oriented 3. Patient is currently in chair. Does state nausea and vomiting has subsided. At this time patient denies nausea vomiting or diarrhea. Patient denies chest pain or shortness breath. Patient denies any urinary burning or frequency Objective - Vital Signs Vital signs: Vital Signs Temp 98.4 F 09/24/18 07:00 Pulse 66 09/24/18 07:00 Resp 18 09/24/18 07:00 BP 155/76 09/24/18 07:00 Pulse Ox 97 09/24/18 07:00 Intake & Output 09/23/18 09/24/18 09/24/18 18:59 06:59 18:59 Intake Total 630 1480 Balance 630 1480 Intake: Intake, IV Titration 630 1180 Amount Sodium Chloride 0.9% 1, 630 560 000 ml @ 70 mls/hr IV . [id number] [facility] Rx#:[id number] Vancomycin 1,750 mg In 620 Sodium Chloride 0.9% 500 ml 500 ml @ 167 mls/hr IVPB Q12H [facility] Rx#: [id number] Oral 300 Other: Voiding Method Urinal Urinal # Voids 3 - Exam Head normocephalic Neck supple Lungs clear to auscultation bilaterally no wheezing or crackles Heart regular rate and rhythm S1-S2, no rub or gallop Abdomen is soft nontender nondistended positive bowel sounds no hepatosplenomegaly Extremities no edema. Left knee dressing clean dry and intact Neuro alert and orientated to 3 - Labs CBC & Chem 7: 09/24/18 06:31 09/24/18 06:31 Labs: Abnormal Lab Results - Last 24 Hours (Table) 09/24/18 09/24/18 Range/Units 06:31 06:31 RBC 3.92 L (4.30-5.90) m/uL Hgb 9.9 L (13.0-17.5) gm/dL Hct 32.8 L (39.0-53.0) % MCHC 30.2 L (31.0-37.0) g/dL RDW 16.1 H (11.5-15.5) % Plt Count 666 H (150-450) k/uL Glucose 104 H (74-99) mg/dL ALT 17 L (21-72) U/L Albumin 2.7 L (3.5-5.0) g/dL Microbiology - Last 24 Hours (Table) 09/22/18 16:31 Blood Culture - Preliminary Blood No Growth after 24 hours 09/22/18 10:30 Gram Stain - Preliminary Knee - Left Wound Culture - Preliminary Presumptive MRSA 09/22/18 10:30 Gram Stain - Preliminary Knee - Left Wound Culture - Preliminary Presumptive MRSA Assessment and Plan Assessment: 1. Status post revision of left total knee arthroplasty with removal of antibiotic spacer and placement of a new antibiotic spacer for persistent infection with Dr. aden. Dr. Paul consulted. Patient currently on aspirin 325 twice a day per surgical services. Pain meds per surgical services. Wound culture currently growing presumptive MRSA. Per infectious disease patient may require ECF for IV antibiotic therapy. Patient remains on IV vancomycin per infectious disease 2. History of left knee septic arthroplasty. Patient underwent drainage of left knee and hardware removal and antibiotic spacer placement with Dr. Fisher on 06/11/2018 3. History of Pneumonia with empyema. 06/27/2018 patient was treated with 6 weeks of vancomycin and pigtail placement that was later removed. Patient follows with Dr. Samuel per pulmonary team. 4. History of coronary artery disease. 5. History of pancreatitis. 6. History of rheumatoid arthritis. Patient maintained on prednisone 10 mg 3 times a day 7. History of cancerous esophageal reflux disease. 8. History of hyperlipidemia 9. Nausea and vomiting. Patient to receive Zofran per surgical team. Amylase and lipase levels within normal limits DVT prophylaxis aspirin. GI prophylaxis Protonix I performed an examination of the patient and discussed their management with the Nurse Practitioner. I have reviewed the Nurse Practitioner's notes and agree with the documented findings and plan of care
[2018-09-24] MEDS: DIAZEPAM 5 MG TAB PO PRN ×2 (15:47→22:57)
[2018-09-24] MEDS: SENNOSIDES-DOCUSATE SODIUM 1 EACH TAB PO SCH (22:59)
[2018-09-24] MEDS: MELATONIN 5 MG TABLET PO PRN (23:00)
[2018-09-25] MEDS: oxyCODONE-APAP 10-325MG 1 EACH TAB PO PRN ×3 (00:53→13:53)
[2018-09-25] MEDS: KETOROLAC 30 MG/ML 1 ML VIAL IVP SCH ×3 (02:20→13:52)
[2018-09-25] MEDS: HYDROmorphone 1 MG/ML 1 ML SYRINGE IVP PRN ×5 (02:28→15:24)
[2018-09-25] MEDS ORDERED: VANCOMYCIN TROUGH DUE 1 EACH MISC MISCELLANE ONE (05:00)
[2018-09-25 06:04] LABS: ALT 24 U/L (21-72); AST 24 U/L (17-59); Albumin 2.8 g/dL (3.5-5.0); Alkaline Phosphatase 68 U/L (38-126); Anion Gap 10 mmol/L; Blood Urea Nitrogen 13 mg/dL (9-20); Calcium 8.9 mg/dL (8.4-10.2); Carbon Dioxide 25 mmol/L (22-30); Chloride 101 mmol/L (98-107); Glucose 108 mg/dL (74-99); Sodium 136 mmol/L (137-145); Total Bilirubin 0.4 mg/dL (0.2-1.3); Total Protein 6.4 g/dL (6.3-8.2)
[2018-09-25 06:15] LABS: Basophils % (A) 0 %; Eosinophils # (A) 0.1 k/uL (0-0.7); Eosinophils % (A) 1 %; HCT 33.8 % (39.0-53.0); HGB 10.3 gm/dL (13.0-17.5); Lymphocytes # (A) 2.9 k/uL (1.0-4.8); Lymphocytes % (A) 30 %; MCHC 30.4 g/dL (31.0-37.0); MCV 82.2 fL (80.0-100.0); Mean Platelet Volume 6.9; Monocytes # (A) 0.4 k/uL (0-1.0); Monocytes % (A) 4 %; Neutrophils # (A) 6.3 k/uL (1.3-7.7); Neutrophils % (A) 64 %; Platelet Count 672 k/uL (150-450); RBC 4.11 m/uL (4.30-5.90); WBC 9.8 k/uL (3.8-10.6)
[2018-09-25] MEDS: VANCOMYCIN 1,750 MG in SODIUM CHLORIDE 0.9% 500 ML 500 ML IVPB SCH (06:26)
[2018-09-25] MEDS: ASPIRIN 325 MG TAB PO SCH (07:50)
[2018-09-25] MEDS: predniSONE 10 MG TAB PO SCH (07:50)
[2018-09-25] MEDS: PANTOPRAZOLE 40 MG/10 ML VIAL IVP SCH (07:50)
[2018-09-25] MEDS: MELOXICAM 7.5 MG TAB PO SCH (07:50)
[2018-09-25] MEDS: hydrOXYzine PAMOATE 25 MG CAP PO PRN ×2 (07:51→13:53)
--- NOTE | 2018-09-25 08:48 | P.PN ---
Subjective Progress Note Date: 09/25/18 This is a 73-year-old male who is status post stage I revision left total knee arthroplasty with removal of antibiotic spacer and placement of a new antibiotic spacer. This is postoperative day #3 and patient is seen and evaluated at bedside with Dr. Sonido Purvis. Patient denies any new complaints today. Patient denies any fever/chills, numbness, weakness, tingling , abdominal pain, shortness of breath or chest pain. Objective - Vital Signs Vital signs: Vital Signs Temp 99.3 F 09/25/18 07:00 Pulse 67 09/25/18 07:00 Resp 17 09/25/18 07:00 BP 157/86 09/25/18 07:00 Pulse Ox 99 09/25/18 07:00 Intake & Output 09/24/18 09/25/18 09/25/18 18:59 06:59 18:59 Intake Total 2370 Balance 2370 Intake: Intake, IV Titration 1620 Amount Sodium Chloride 0.9% 1, 1120 000 ml @ 70 mls/hr IV . [id number] [facility] Rx#:[id number] Vancomycin 1,750 mg In 500 Sodium Chloride 0.9% 500 ml 500 ml @ 167 mls/hr IVPB Q12H [facility] Rx#: [id number] Oral 750 Other: Voiding Method Urinal # Voids 2 2 - Exam Vital signs are stable. Patient is in no acute distress and is alert and oriented 3. Calf is soft and nontender to palpation. Dressing is clean, dry, and intact. Patient has full foot and ankle motion without pain or difficulty. Neurovascular status and circulatory status are intact. - Labs CBC & Chem 7: 09/25/18 05:35 09/25/18 05:35 Labs: Abnormal Lab Results - Last 24 Hours (Table) 09/24/18 09/25/18 09/25/18 Range/Units 06:31 05:35 05:35 RBC 3.92 L 4.11 L (4.30-5.90) m/uL Hgb 9.9 L 10.3 L (13.0-17.5) gm/dL Hct 32.8 L 33.8 L (39.0-53.0) % MCHC 30.2 L 30.4 L (31.0-37.0) g/dL RDW 16.1 H 16.0 H (11.5-15.5) % Plt Count 666 H 672 H (150-450) k/uL Sodium 136 L (137-145) mmol/L Glucose 108 H (74-99) mg/dL Albumin 2.8 L (3.5-5.0) g/dL Microbiology - Last 24 Hours (Table) 09/22/18 16:31 Blood Culture - Preliminary Blood No Growth after 48 hours 09/22/18 10:30 Gram Stain - Final Knee - Left Wound Culture - Final Methicillin resist S. aureus 09/22/18 10:30 Gram Stain - Final Knee - Left Wound Culture - Final Methicillin resist S. aureus 09/22/18 10:30 Anaerobic Culture - Preliminary Knee - Left 09/22/18 10:30 Anaerobic Culture - Preliminary Knee - Left Assessment and Plan Assessment: COPD GERD Hyperlipidemia Chronic arthritis History of pancreatitis (1) Infection of total left knee replacement Current Visit: Yes Status: Acute Code(s): T84.54XA - INFECT/INFLM REACTION DUE TO INTERNAL LEFT KNEE PROSTH, INIT; Z96.652 - PRESENCE OF LEFT ARTIFICIAL KNEE JOINT SNOMED Code(s): 238694222 (2) Status post revision of total replacement of left knee Current Visit: Yes Status: Acute Code(s): Z96.652 - PRESENCE OF LEFT ARTIFICIAL KNEE JOINT SNOMED Code(s): 916717196182847 Plan: 1. Continue routine postoperative care and pain control. 2. Cultures of the left knee show MRSA. 3. Weightbearing as tolerated to the left lower extremity. 4. DVT prophylaxis with aspirin. 5. Appreciate input from internal medicine and infectious disease. 6. IV antibiotics per infectious disease. 7. Anticipate discharge home or to ECF in the next 1-2 days.
--- NOTE | 2018-09-25 10:57 | P.PN ---
Subjective Progress Note Date: 09/25/18 This is a 73-year-old patient of Dr. Montemayor. Patient presented presented for an elective revision of his total left knee arthroplasty with removal of antibiotic spacer and placement of a new antibiotic spacer for persistent infection. Patient recently admitted in May for left knee septic arthroplasty. At that time patient underwent removal of hardware to left knee and left shoulder and placement of antibiotic spacer with Dr. Fisher. Patient was then DC to rehab. Patient then developed pneumonia with empyema and was readmitted for pigtail placement and pulmonary services evaluation. Patient was treated with 6 weeks of vancomycin for infectious disease recommendation. Patient states that over the past 2 month he's been doing well. Additional medical history includes heart cath with stents, COPD, GERD, hyperlipidemia, rheumatoid arthritis and pancreatitis. At this time patient is currently resting comfortably in bed post operative. Patient does have some discomfort to left knee. Patient denies any chest pain or shortness of breath. Patient did well with Dr. Samuel in the office yesterday prior to surgery. Patient denies any nausea vomiting or diarrhea. Patient denies any urinary burning or frequency. On 09/23/2018 patient is currently postop day 1. Patient is A & O 3. Patient is resting in bed. Patient is complaining of increased nausea. Patient did get Zofran. Patient remains on Dilaudid and [place] for pain control. Patient denies shortness of breath or chest pain. Patient denies any urinary frequency or burning On 09/24/2018 patient is currently 2 patient is alert and oriented 3. Patient is currently in chair. Does state nausea and vomiting has subsided. At this time patient denies nausea vomiting or diarrhea. Patient denies chest pain or shortness breath. Patient denies any urinary burning or frequency On 09/25/2018 patient is currently postop day 3. Patient is alert and oriented 3. Patient states pain is adequately controlled at this time. Awaiting final IDs recommendation for antibiotics and need for possible ECF placement. Patient denies chest pain or shortness of breath. Patient denies nausea vomiting or diarrhea. Patient denies any urinary burning or frequency Objective - Vital Signs Vital signs: Vital Signs Temp 99.3 F 09/25/18 07:00 Pulse 67 09/25/18 07:00 Resp 17 09/25/18 07:00 BP 157/86 09/25/18 07:00 Pulse Ox 99 09/25/18 07:00 Intake & Output 09/24/18 09/25/18 09/25/18 18:59 06:59 18:59 Intake Total 2370 Balance 2370 Intake: Intake, IV Titration 1620 Amount Sodium Chloride 0.9% 1, 1120 000 ml @ 70 mls/hr IV . [id number] [facility] Rx#:[id number] Vancomycin 1,750 mg In 500 Sodium Chloride 0.9% 500 ml 500 ml @ 167 mls/hr IVPB Q12H [facility] Rx#: [id number] Oral 750 Other: Voiding Method Urinal # Voids 2 2 - Exam Head normocephalic Neck supple Lungs clear to auscultation bilaterally no wheezing or crackles Heart regular rate and rhythm S1-S2, no rub or gallop Abdomen is soft nontender nondistended positive bowel sounds no hepatosplenomegaly Extremities no edema. Left knee dressing clean dry and intact Neuro alert and orientated to 3 - Labs CBC & Chem 7: 09/25/18 05:35 09/25/18 05:35 Labs: Abnormal Lab Results - Last 24 Hours (Table) 09/25/18 09/25/18 Range/Units 05:35 05:35 RBC 4.11 L (4.30-5.90) m/uL Hgb 10.3 L (13.0-17.5) gm/dL Hct 33.8 L (39.0-53.0) % MCHC 30.4 L (31.0-37.0) g/dL RDW 16.0 H (11.5-15.5) % Plt Count 672 H (150-450) k/uL Sodium 136 L (137-145) mmol/L Glucose 108 H (74-99) mg/dL Albumin 2.8 L (3.5-5.0) g/dL Microbiology - Last 24 Hours (Table) 09/22/18 10:30 Gram Stain - Final Knee - Left Wound Culture - Final Methicillin resist S. aureus 09/22/18 16:31 Blood Culture - Preliminary Blood No Growth after 48 hours 09/22/18 10:30 Gram Stain - Final Knee - Left Wound Culture - Final Methicillin resist S. aureus 09/22/18 10:30 Anaerobic Culture - Preliminary Knee - Left 09/22/18 10:30 Anaerobic Culture - Preliminary Knee - Left Assessment and Plan Assessment: 1. Status post revision of left total knee arthroplasty with removal of antibiotic spacer and placement of a new antibiotic spacer for persistent infection with Dr. aden. Dr. Paul consulted. Patient currently on aspirin 325 twice a day per surgical services. Pain meds per surgical services. Wound culture currently growing presumptive MRSA. Per infectious disease patient may require ECF for IV antibiotic therapy. Patient remains on IV vancomycin per infectious disease 2. History of left knee septic arthroplasty. Patient underwent drainage of left knee and hardware removal and antibiotic spacer placement with Dr. Fisher on 06/11/2018 3. History of Pneumonia with empyema. 06/27/2018 patient was treated with 6 weeks of vancomycin and pigtail placement that was later removed. Patient follows with Dr. Samuel per pulmonary team. 4. History of coronary artery disease. 5. History of pancreatitis. 6. History of rheumatoid arthritis. Patient maintained on prednisone 10 mg 3 times a day 7. History of cancerous esophageal reflux disease. 8. History of hyperlipidemia 9. Nausea and vomiting. Patient to receive Zofran per surgical team. Amylase and lipase levels within normal limits DVT prophylaxis aspirin. GI prophylaxis Protonix Awaiting final recommendations from ID for IV antibiotics. Patient may require ECF placement at [facility] I performed an examination of the patient and discussed their management with the Nurse Practitioner. I have reviewed the Nurse Practitioner's notes and agree with the documented findings and plan of care
[2018-09-25] MEDS: SODIUM CHLORIDE 0.9% 1,000 ML IV SCH (12:40)
[2018-09-25] MEDS ORDERED: DAPTOmycin 500 MG in SODIUM CHLORIDE 0.9% 50 ML IVPB SCH (13:00)
[2018-09-25] MEDS ORDERED: VANCOMYCIN 1,500 MG in SODIUM CHLORIDE 0.9% 250 ML IVPB SCH (14:00)
--- NOTE | 2018-09-25 14:17 | IR ---
PICC LINE PLACEMENT: HISTORY: Infection requiring long-term antibiotic therapy PROCEDURE: Ultrasound and fluoroscopic guidance of PICC line placement. COMPLICATIONS: None ANESTHESIA: 1. 1% Lidocaine locally. FINDINGS/TECHNIQUE: The procedure was explained to the patient. The risks, complications, benefits and alternatives were discussed and any questions were answered. Informed consent was obtained. The patient was placed supine on the fluoroscopic table and prepped and draped in the usual sterile fash ion. Utilizing a 21 gauge needle and sonographic and fluoroscopic guidance, access in the left ceph alic vein vein was achieved and there is placement of a 0.018 guidewire. The vein is patent. A 4-F sheath was placed over the guidewire. The guidewire and dilator were removed and a 4-F. PICC line wa s placed through the sheath with the tip at the level of the SVC. The sheath was removed, the cathet er was flushed and sutured into position. The patient was stable throughout the procedure and remain ed stable upon discharge from the Department of Radiology. The vein puncture was patent under ultrasound. A long scale image was obtained to document patency of the vein punctured. All elements of the maximal barrier technique were utilized. FLUOROSCOPY TIME: 0.2 minutes and one image submitted IMPRESSION: Successful PICC line placement under ultrasound and fluoroscopic guidance.
[2018-09-25 14:43] VITALS: BP 151/91; PULSE 82; RESP 18; TEMP 98.2
--- NOTE | 2018-09-25 15:01 | P.DS ---
Providers Date of admission: 09/22/18 05:30 Expected date of discharge: 09/25/18 Attending physician: Sonido Purvis Consults: 09/22/18 09:00 Consult Physician Routine Consulting Provider: Ruthy Montemayor Consult Reason/Comments: medical management Do you want consulting provider notified?: Yes 09/22/18 11:12 Consult Physician Routine Consulting Provider: Fletcher Paul Consult Reason/Comments: infection left total knee Do you want consulting provider notified?: Yes 09/22/18 14:30 Consult Physician Routine Consulting Provider: Abad Vaca Consult Reason/Comments: Medical managment Do you want consulting provider notified?: Yes Primary care physician: Ruthy Montemayor - Discharge Diagnosis(es) (1) Infection of total left knee replacement Current Visit: Yes Status: Acute (2) Status post revision of total replacement of left knee Current Visit: Yes Status: Acute Hospital Course: This is a 73-year-old male who developed an infected left total knee arthroplasty and underwent a stage I revision with placement of an antibiotic spacer on 06/11/[address] Fisher. The patient received IV antibiotics and the left knee infection was believed to be cleared. After discussion and consideration patient elects to proceed with stage II revision left total knee arthroplasty. The patient is seen preoperatively by Dr. Purivs and cleared for surgery by his primary care physician and infectious disease. Patient is admitted to [facility] on 09/22/2018 for stage II revision left total knee arthroplasty. During surgery there was still evidence for infection, therefore the antibiotic spacer was removed and a new antibiotic spacer was placed. Patient is status post stage I revision left total knee arthroplasty with persistent infection. Cultures are positive for MRSA. The patient is doing well postoperatively. Labs and vital signs are stable on day of discharge. Patient received a PICC line and IV antibiotics are being managed by infectious disease. On day of discharge patient's knee incision is healing well. There is minimal erythema. There is no drainage noted at this time. Surgical clips are intact. There is minimal soft tissue swelling to the knee. Patient has full foot and ankle motion without difficulty or pain. Calf is soft and nontender to palpation. Neurovascular status to the left lower extremity is intact. Patient is discharged home in good condition. Please see med rec for accurate list of home medications. Plan - Discharge Summary Discharge Rx Participant: No New Discharge Prescriptions: New Aspirin 325 mg PO BID #60 tab hydrOXYzine PAMOATE [Vistaril] 25 mg PO Q6H PRN #30 capsule PRN Reason: Pain DAPTOmycin [Cubicin Rf] 500 mg IV DAILY #42 vial Continue Folic Acid 1 mg PO DAILY predniSONE 10 mg PO TID oxyCODONE HCL/ACETAMINOPHEN [Percocet 10-325 mg] 2 tab PO TID Discharge Medication List Folic Acid 1 mg PO DAILY 01/12/18 [History] oxyCODONE HCL/ACETAMINOPHEN [Percocet 10-325 mg] 2 tab PO TID 09/02/18 [History] predniSONE 10 mg PO TID 09/02/18 [History] Aspirin 325 mg PO BID #60 tab 09/25/18 [Rx] DAPTOmycin [Cubicin Rf] 500 mg IV DAILY #42 vial 09/25/18 [Rx] hydrOXYzine PAMOATE [Vistaril] 25 mg PO Q6H PRN #30 capsule 09/25/18 [Rx] Follow up Appointment(s)/Referral(s): Sonido Purvis DO [Doctor of Osteopathic Medicine] - 10/12/18 10:30 am Ruthy Montemayor DO [Primary Care Provider] - 1 Week [facility] Visiting Nurse, [NON-STAFF] - Ambulatory/Diagnostic Orders: Miscellaneous Lab Order [LAB.AMB] Location: None Selected Activity/Diet/Wound Care/Special Instructions: [facility] - will deliver to bedside before discharge. [facility] - IV antibiotic infusions - [address] [place] [address], [address], [place] [address]. Phone #: [phone] - appointment 10:00 on 09/26/18. Weightbearing as tolerated with a walker. Daily dressing changes. Keep incision clean and dry. Do not soak incision. [place] to be removed in 10-14 days. May shower if no drainage from incision. Pain management per Dr. Tillman. Please follow up with [facility] and call with any questions or concerns, . Discharge Disposition: HOME WITH HOME HEALTH SERVICES
[2018-09-25] MEDS ORDERED: PANTOPRAZOLE 40 MG TABLET PO SCH (17:30)
[2018-09-26] MEDS ORDERED: VANCOMYCIN TROUGH DUE 1 EACH MISC MISCELLANE ONE (13:00)
== END 2018-09-25 17:24 | disposition home health service (06) | DRG 486 ==
LOC: 2ORMAIN 05:30 → 4SSUR 13:54
PROVIDERS: ADMIT Orthopaedic Surgery; ATTEND Orthopaedic Surgery
PROC: 0SHD08Z Insertion of Spacer into Left Knee Joint, Open Approach (ICD-10-PCS; 2018-09-22)
PROC: 0SPD08Z Removal of Spacer from Left Knee Joint, Open Approach (ICD-10-PCS; principal; 2018-09-22 09:15)
PROC: 02HV33Z Insertion of Infusion Device into Superior Vena Cava, Percutaneous Approach (ICD-10-PCS; 2018-09-25 12:35)
DX: T84.54XA Infection and inflammatory reaction due to internal left knee prosthesis, initial encounter (principal); M00.062 Staphylococcal arthritis, left knee; M06.9 Rheumatoid arthritis, unspecified; E78.5 Hyperlipidemia, unspecified; J44.9 Chronic obstructive pulmonary disease, unspecified; K21.9 Gastro-esophageal reflux disease without esophagitis; B95.62 Methicillin resistant Staphylococcus aureus infection as the cause of diseases classified elsewhere; Z86.14 Personal history of Methicillin resistant Staphylococcus aureus infection; Z87.891 Personal history of nicotine dependence
CPT/HCPCS: 36569; 76937; 77001; 80053; 80202; 82150; 83690; 85025; 85652; 86140; 87040; 87070; 87075; 87077; 87186; 87205

== ENCOUNTER 2018-09-29 00:13 | Emergency (ER) | payer MEDICARE ==
[2018-09-29 00:18] VITALS: RESP 16
[2018-09-29] MEDS ORDERED: MORPHINE SULFATE 4 MG/ML SYRINGE IV STA (01:40)
--- NOTE | 2018-09-29 01:42 | ED ---
Recheck HPI - General Chief Complaint: Recheck/Abnormal Lab/Rx Stated Complaint: Recheck, Post op bleeding Time Seen by Provider: 09/29/18 00:27 Source: patient Mode of arrival: ambulatory Limitations: no limitations - History of Present Illness Initial Comments: This patient is a 73-year-old man who presents with complaint that he was having bleeding from his left knee surgical wound. The patient states that he had a new spacer placed in his left knee on Friday. Tonight when he was at home some blood came from the incision area states it was dark blood. While he was coming into the department here did stop. He denies fever or chills. He states he has not had any increase in the pain that was present after the surgery. MD Complaint: wound re-check Onset/Timin -: hour(s) Initial Visit For: other Returns Today for: wound recheck Associated Symptoms: none - Related Data Home Medications Medication Instructions Recorded Confirmed Folic Acid 1 mg PO DAILY 01/12/18 09/22/18 oxyCODONE HCL/ACETAMINOPHEN 2 tab PO TID 09/02/18 09/22/18 [Percocet 10-325 mg] predniSONE 10 mg PO TID 09/02/18 09/22/18 Previous Rx's Medication Instructions Recorded Aspirin 325 mg PO BID #60 tab 09/25/18 DAPTOmycin [Cubicin Rf] 500 mg IV DAILY #42 vial 09/25/18 hydrOXYzine PAMOATE [Vistaril] 25 mg PO Q6H PRN #30 capsule 09/25/18 Allergies Allergy/AdvReac Type Severity Reaction Status Date / Time No Known Allergies Allergy Verified 09/29/18 00:18 Review of Systems ROS Statement: Those systems with pertinent positive or pertinent negative responses have been documented in the HPI. ROS Other: All systems not noted in ROS Statement are negative. Constitutional: Denies: fever, chills, weakness Respiratory: Denies: cough, dyspnea Cardiovascular: Denies: chest pain, palpitations, syncope Gastrointestinal: Denies: abdominal pain, vomiting Musculoskeletal: Denies: back pain Skin: Denies: rash Neurological: Denies: headache, weakness Hematological/Lymphatic: Denies: easy bleeding Past Medical History Past Medical History: Coronary Artery Disease (CAD), COPD, GERD/Reflux, Hyperlipidemia, Pneumonia, Rheumatoid Arthritis (RA) Additional Past Medical History / Comment(s): History of pancreatitis, 2013 past medical record documents viral pericarditis but pt denies, gastritis, has home O2 at HS only but has not been using. Fluid build up rt lung - previous chest tube - pt unsure what it is from, BOTTOM TEETH REMOVED 09-01-18 History of Any Multi-Drug Resistant Organisms: MRSA Date of last positivie culture/infection: 09/22/18 MDRO Source:: KNEE Past Surgical History: Heart Catheterization With Stent, Joint Replacement, Orthopedic Surgery Additional Past Surgical History / Comment(s): Total L knee arthroplasty with a spacer in place, R total shoulder replaced, L ankle ORIF d/t fracture, EGD, left rotator cuff repair. right ankle sx, thoracentesis, chest tube rt lung Past Anesthesia/Blood Transfusion Reactions: No Reported Reaction Additional Past Anesthesia/Blood Transfusion Reaction / Comment(s): Pt states he has never recieved blood. Date of Last Stent Placement:: 12/10/16 Past Psychological History: No Psychological Hx Reported Smoking Status: Former smoker - Past Family History Sister(s) Family Medical History: Cancer Additional Family Medical History / Comment(s): pt's father had ra, mother had 16 children was healthy most of her life age 93 from dementia. Mother Family Medical History: Dementia Father Family Medical History: Rheumatoid Arthritis (RA) General Exam Limitations: no limitations General appearance: alert, in no apparent distress Respiratory exam: Present: normal lung sounds bilaterally. Absent: respiratory distress, wheezes, rales, rhonchi, stridor Cardiovascular Exam: Present: regular rate, normal rhythm, normal heart sounds. Absent: systolic murmur, diastolic murmur, rubs, gallop GI/Abdominal exam: Present: soft. Absent: tenderness Extremities exam: Present: other (Patient's left knee has intact surgical lakisha. There is no abnormal erythema, warmth, or drainage.) Skin exam: Present: warm, dry, intact, normal color. Absent: rash Course Vital Signs 09/29/18 00:15 Temperature 98 F Pulse Rate 98 Respiratory 16 Rate Blood Pressure 132/75 O2 Sat by Pulse 98 Oximetry Medical Decision Making - Medical Decision Making Exam of the patient's left knee reveals what appears to be a normal postsurgical appearance at this point. I did cleanse the skin and then attempted express some fluid where the patient states the bleeding recurred. I was not able to express anything, and therefore not able to obtain culture. I patient was given little bit of analgesia and I did page the covering orthopedic doctor, Dr. Conrad. Dr. Conrad had not called back about 10 the patient's analgesia kicked in and he wanted to go home and follow-up. At this point he does appear stable for that as there is no further bleeding. Discussed return parameters and appropriate follow-up. Disposition Clinical Impression: Post-op bleeding Disposition: HOME SELF-CARE Condition: Good Instructions: Precautions after Total Joint Replacement Surgery (ED) Is patient prescribed a controlled substance at d/c from ED?: No Referrals: Ruthy Montemayor DO [Primary Care Provider] - 1-2 days Tony Fisher DO [Doctor of Osteopathic Medicine] - 1-2 days
[2018-09-29 02:35] VITALS: BP 135/69; PULSE 87; TEMP 97.9
== END 2018-09-29 02:23 | disposition home or self-care (01) ==
LOC: EC 00:13
DX: L76.22 Postprocedural hemorrhage of skin and subcutaneous tissue following other procedure (principal); J44.9 Chronic obstructive pulmonary disease, unspecified; M06.9 Rheumatoid arthritis, unspecified; I25.10 Atherosclerotic heart disease of native coronary artery without angina pectoris; Z87.891 Personal history of nicotine dependence; Z79.52 Long term (current) use of systemic steroids; Z79.891 Long term (current) use of opiate analgesic; Z79.899 Other long term (current) drug therapy; Z86.14 Personal history of Methicillin resistant Staphylococcus aureus infection; Z95.5 Presence of coronary angioplasty implant and graft; Z96.611 Presence of right artificial shoulder joint; Z96.89 Presence of other specified functional implants
CPT/HCPCS: 96374; 99283

== ENCOUNTER 2019-01-19 09:48 | Inpatient (IN) | payer MEDICARE ==
[2019-01-19] MEDS ORDERED: SODIUM CHLORIDE 0.9% 1,000 ML IV STA ×3 (10:09→11:46)
[2019-01-19] MEDS ORDERED: ACETAMINOPHEN TAB 500 MG TAB PO STA (10:09)
[2019-01-19 10:32] LABS: Basophils % (A) 0 %; Eosinophils # (A) 0.1 k/uL (0-0.7); Eosinophils % (A) 1 %; HCT 44.8 % (39.0-53.0); HGB 14.4 gm/dL (13.0-17.5); Lymphocytes # (A) 1.5 k/uL (1.0-4.8); Lymphocytes % (A) 19 %; MCH 28.3 pg (25.0-35.0); MCHC 32.2 g/dL (31.0-37.0); MCV 87.8 fL (80.0-100.0); Mean Platelet Volume 7.4; Monocytes # (A) 0.3 k/uL (0-1.0); Monocytes % (A) 3 %; Neutrophils % (A) 76 %; Platelet Count 281 k/uL (150-450); RDW 13.9 % (11.5-15.5); WBC 7.9 k/uL (3.8-10.6)
[2019-01-19 10:39] LABS: ALT 66 U/L (21-72); AST 37 U/L (17-59); Albumin 4.2 g/dL (3.5-5.0); Alkaline Phosphatase 109 U/L (38-126); Anion Gap 13 mmol/L; Blood Urea Nitrogen 9 mg/dL (9-20); Calcium 9.8 mg/dL (8.4-10.2); Carbon Dioxide 24 mmol/L (22-30); Chloride 102 mmol/L (98-107); Glucose 234 mg/dL (74-99); Potassium 4.6 mmol/L (3.5-5.1); Sodium 139 mmol/L (137-145); Total Bilirubin 0.5 mg/dL (0.2-1.3)
--- NOTE | 2019-01-19 10:39 | XR ---
EXAMINATION TYPE: XR chest 2V DATE OF EXAM: 01/19/2019 COMPARISON: 07/03/2018 HISTORY: Shortness of breath TECHNIQUE: Frontal and lateral views of the chest are obtained. FINDINGS: Scattered senescent parenchymal changes noted. Hyperinflation compatible with COPD. Pulmonary venous congestion without overt failure. Pleural-parenchymal density right lung base is lik tutu chronic in nature. PICC line is noted to be in place on the right. Heart size is stable. Mediastinal structures are stable and grossly unremarkable. No evidence for hilar prominence. Degenerative changes dorsal spine. IMPRESSION: 1. Pulmonary venous congestion without overt failure. Pleural-parenchymal density right lung base is likely chronic in nature.
[2019-01-19 10:45] LABS: Appearance,Urine Clear (Clear); Bilirubin,Urine Negative (Negative); Blood,Urine Negative (Negative); Color,Urine Light Yellow; Glucose,Urine (UA) Negative (Negative); Ketones,Urine Negative (Negative); Leukocyte Esterase,Urine Negative (Negative); Nitrite,Urine Negative (Negative); Protein,Urine Negative (Negative); Specific Gravity,Urine 1.017 (1.001-1.035); Urobilinogen,Urine <2.0 mg/dL (<2.0)
--- NOTE | 2019-01-19 11:14 | ED ---
General Adult HPI - General Chief complaint: Fever Stated complaint: weakness, altered mental status Time Seen by Provider: 01/19/19 09:48 Source: patient, family, EMS, RN notes reviewed, old records reviewed Mode of arrival: EMS Limitations: no limitations - History of Present Illness Initial comments: This is a 73-year-old male who is currently under treatment for MRSA the left lower extremity who presents with the onset around 6:30 AM this morning of some confusion and fever. He is brought in by EMS for evaluation for possible sepsis. He was noted be tachycardic have a fever 102.1% confusion no focal weakness. No nausea no vomiting. Upon arrival the patient was awake and alert at my initial evaluation he did not seem to be confused and family members that came later do state that he is not quite his usual self. He does get treatments and is infectious disease provider's office. - Related Data Home Medications Medication Instructions Recorded Confirmed predniSONE 10 mg PO TID 09/02/18 01/19/19 hydrOXYzine PAMOATE [Vistaril] 25 mg PO QID 01/19/19 01/19/19 oxyCODONE-APAP 10-325MG [Percocet 2 tab PO QID 01/19/19 01/19/19 10-325 mg] Allergies Allergy/AdvReac Type Severity Reaction Status Date / Time No Known Allergies Allergy Verified 01/19/19 10:20 Review of Systems ROS Statement: Those systems with pertinent positive or pertinent negative responses have been documented in the HPI. ROS Other: All systems not noted in ROS Statement are negative. Past Medical History Past Medical History: Coronary Artery Disease (CAD), COPD, GERD/Reflux, Hyperlipidemia, Pneumonia, Rheumatoid Arthritis (RA) Additional Past Medical History / Comment(s): History of pancreatitis, 2012 past medical record documents viral pericarditis but pt denies, gastritis, has home O2 at HS only but has not been using. Fluid build up rt lung - previous chest tube - pt unsure what it is from, BOTTOM TEETH REMOVED 09-01-18 History of Any Multi-Drug Resistant Organisms: MRSA Date of last positivie culture/infection: 11/23/18 MDRO Source:: KNEE Past Surgical History: Heart Catheterization With Stent, Joint Replacement, Orthopedic Surgery Additional Past Surgical History / Comment(s): Total L knee arthroplasty with a spacer in place, R total shoulder replaced, L ankle ORIF d/t fracture, EGD, left rotator cuff repair. right ankle sx, thoracentesis, chest tube rt lung Past Anesthesia/Blood Transfusion Reactions: No Reported Reaction Additional Past Anesthesia/Blood Transfusion Reaction / Comment(s): Pt states he has never recieved blood. Date of Last Stent Placement:: 12/10/16 Past Psychological History: No Psychological Hx Reported Smoking Status: Former smoker - Past Family History Sister(s) Family Medical History: Cancer Additional Family Medical History / Comment(s): pt's father had ra, mother had 16 children was healthy most of her life age 93 from dementia. Mother Family Medical History: Dementia Father Family Medical History: Rheumatoid Arthritis (RA) General Exam - General Exam Comments Initial Comments: This is a well-developed well-nourished awake alert though somewhat slow to respond male Limitations: no limitations General appearance: alert, in no apparent distress Head exam: Present: atraumatic, normocephalic, normal inspection Eye exam: Present: normal appearance, PERRL, EOMI. Absent: scleral icterus, conjunctival injection, periorbital swelling ENT exam: Present: mucous membranes dry Neck exam: Present: normal inspection. Absent: tenderness, meningismus, lymphadenopathy Respiratory exam: Present: decreased breath sounds. Absent: respiratory distress, wheezes, rales, rhonchi, stridor Cardiovascular Exam: Present: normal rhythm, tachycardia, normal heart sounds. Absent: systolic murmur, diastolic murmur, rubs, gallop, clicks GI/Abdominal exam: Present: soft, normal bowel sounds. Absent: distended, ten derness, guarding, rebound, rigid Extremities exam: Present: full ROM, normal capillary refill, other (Lower extremity with compliance and brace on.). Absent: tenderness, pedal edema, joint swelling, calf tenderness Back exam: Present: normal inspection Neurological exam: Present: alert, oriented X3, CN II-XII intact Psychiatric exam: Present: normal affect, normal mood Skin exam: Present: warm, dry, intact, normal color. Absent: rash Course Vital Signs 01/19/19 01/19/19 01/19/19 09:52 10:00 11:00 Temperature 102.1 F H Pulse Rate 125 H 126 H 118 H Respiratory 25 H 11 L 26 H Rate Blood Pressure 107/80 107/80 115/61 O2 Sat by Pulse 90 L 92 L 91 L Oximetry - Reevaluation(s) Reevaluation #1: 01/19/19 11:15 Did discuss the findings with the patient and with his family member was present patient still seems somewhat confused per family member patient still tachycardic he was noted have a episode of hypotension. Lactic acid is within normal limits I did discuss the case with Dr. Paul patient will be admitted for IV fluids and reevaluation. Case is discussed also with Dr. Vaca Reevaluation #2: 01/19/19 11:22 surveillance system monitor: surveillance system monitor was indicated to rule out dysrhythmia. Patient did present with tachycardia. On my examination he had 130 rate no evidence of PACs or PVCs. Medical Decision Making - Medical Decision Making I did discuss case the patient family members as well as with Dr. Paul and Dr. Vaca. Patient be admitted for inpatient evaluation and treatment. - Lab Data Result diagrams: 01/19/19 10:04 01/19/19 10:04 Lab Results 01/19/19 01/19/19 01/19/19 Range/Units 10:04 10:04 10:04 WBC 7.9 (3.8-10.6) k/uL RBC 5.10 (4.30-5.90) m/uL Hgb 14.4 (13.0-17.5) gm/dL Hct 44.8 (39.0-53.0) % MCV 87.8 (80.0-100.0) fL MCH 28.3 (25.0-35.0) pg MCHC 32.2 (31.0-37.0) g/dL RDW 13.9 (11.5-15.5) % Plt Count 281 (150-450) k/uL Neutrophils % 76 % Lymphocytes % 19 % Monocytes % 3 % Eosinophils % 1 % Basophils % 0 % Neutrophils # 6.0 (1.3-7.7) k/uL Lymphocytes # 1.5 (1.0-4.8) k/uL Monocytes # 0.3 (0-1.0) k/uL Eosinophils # 0.1 (0-0.7) k/uL Basophils # 0.0 (0-0.2) k/uL Sodium 139 (137-145) mmol/L Potassium 4.6 (3.5-5.1) mmol/L Chloride 102 (98-107) mmol/L Carbon Dioxide 24 (22-30) mmol/L Anion Gap 13 mmol/L BUN 9 (9-20) mg/dL Creatinine 0.77 (0.66-1.25) mg/dL Est GFR (CKD-EPI)AfAm >90 (>60 ml/min/1.73 sqM) Est GFR (CKD-EPI)NonAf >90 (>60 ml/min/1.73 sqM) Glucose 234 H (74-99) mg/dL Plasma Lactic Acid Harsh 1.4 (0.7-2.0) mmol/L Calcium 9.8 (8.4-10.2) mg/dL Total Bilirubin 0.5 (0.2-1.3) mg/dL AST 37 (17-59) U/L ALT 66 (21-72) U/L Alkaline Phosphatase 109 (38-126) U/L Total Protein 7.0 (6.3-8.2) g/dL Albumin 4.2 (3.5-5.0) g/dL Urine Color Urine Appearance (Clear) Urine pH (5.0-8.0) Ur Specific [place] (1.001-1.035) Urine Protein (Negative) Urine Glucose (UA) (Negative) Urine Ketones (Negative) Urine Blood (Negative) Urine Nitrite (Negative) Urine Bilirubin (Negative) Urine Urobilinogen (<2.0) mg/dL Ur Leukocyte Esterase (Negative) Influenza Type A RNA (Not Detectd) Influenza Type B (PCR) (Not Detectd) 01/19/19 01/19/19 Range/Units 10:04 10:25 WBC (3.8-10.6) k/uL RBC (4.30-5.90) m/uL Hgb (13.0-17.5) gm/dL Hct (39.0-53.0) % MCV (80.0-100.0) fL MCH (25.0-35.0) pg MCHC (31.0-37.0) g/dL RDW (11.5-15.5) % Plt Count (150-450) k/uL Neutrophils % % Lymphocytes % % Monocytes % % Eosinophils % % Basophils % % Neutrophils # (1.3-7.7) k/uL Lymphocytes # (1.0-4.8) k/uL Monocytes # (0-1.0) k/uL Eosinophils # (0-0.7) k/uL Basophils # (0-0.2) k/uL Sodium (137-145) mmol/L Potassium (3.5-5.1) mmol/L Chloride (98-107) mmol/L Carbon Dioxide (22-30) mmol/L Anion Gap mmol/L BUN (9-20) mg/dL Creatinine (0.66-1.25) mg/dL Est GFR (CKD-EPI)AfAm (>60 ml/min/1.73 sqM) Est GFR (CKD-EPI)NonAf (>60 ml/min/1.73 sqM) Glucose (74-99) mg/dL Plasma Lactic Acid Harsh (0.7-2.0) mmol/L Calcium (8.4-10.2) mg/dL Total Bilirubin (0.2-1.3) mg/dL AST (17-59) U/L ALT (21-72) U/L Alkaline Phosphatase (38-126) U/L Total Protein (6.3-8.2) g/dL Albumin (3.5-5.0) g/dL Urine Color Light Yellow Urine Appearance Clear (Clear) Urine pH 7.0 (5.0-8.0) Ur Specific [place] 1.017 (1.001-1.035) Urine Protein Negative (Negative) Urine Glucose (UA) Negative (Negative) Urine Ketones Negative (Negative) Urine Blood Negative (Negative) Urine Nitrite Negative (Negative) Urine Bilirubin Negative (Negative) Urine Urobilinogen <2.0 (<2.0) mg/dL Ur Leukocyte Esterase Negative (Negative) Influenza Type A RNA Not Detected (Not Detectd) Influenza Type B (PCR) Not Detected (Not Detectd) - EKG Data -: EKG Interpreted by Mt EKG shows normal: sinus rhythm (Sinus tachycardia rate of 118. We'll 148 QRS duration to 90/406 to QA changes are seen some artifact noted.) - Radiology Data Radiology results: report reviewed (Review the imaging and report no acute findings.), image reviewed Critical Care Time Critical Care Time: Yes Critical Care Time: 83 minutes of critical care time which includes initial presentation with history physical labs x-rays discussed with paramedics. Discussed with the admitting physician discussing with Dr. Paul. Discussion with the family patient. Documentation the above review of old charting was available also in addition to orders Disposition Clinical Impression: Fever of unknown origin (FUO), Dehydration, History of MRSA infection, Hypotensive episode, Tachycardia Disposition: ADMITTED IP TO THIS HOSP Condition: Fair Referrals: Ruthy Montemayor DO [Primary Care Provider] - 1-2 days
[2019-01-19] MEDS: SODIUM CHLORIDE 0.9% 1,000 ML IV SCH ×2 (12:02→23:30)
--- NOTE | 2019-01-19 14:31 | P.HPIM ---
History of Present Illness H&P Date: 01/19/19 This is a 73-year-old male patient who presented to the hospital with complaint of febrile illness and altered mental status changes. Patient's is at bedside reports that patient was confused this a.m. and had a high fever. Patient was recently admitted at [facility] in which they cleaned out left knee incision approximate 2 weeks ago. Currently wound VAC is in place. 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 Patient reports that he follows with Dr. Paul and receives IV antibiotics through office. Additional medical history includes empyema/parapneumonic effusion in June 2018 in which he was treated 6 weeks with Vanco and pigtail placement was later removed. Additional medical history includes CAD, pancreatitis, rheumatoid arthritis which she is maintained on prednisone, GERD and hyperlipidemia. Influenza negative. UA negative. Chest x-ray completed showing pulmonary venous congestion with out overt failure. Pleural parenchymal density right lung bases likely chronic in nature. Patient does report he had a cough. Dr. Paul for infectious disease and pulmonary services have been consulted. EKG completed showing sinus tachycardia. At this time patient is sleepy but will wake up and answer questions. Patient denies any recent diarrhea or pain in abdomen. Patient denies nausea vomiting diarrhea. Patient denies chest pain or shortness of breath. Patient denies any burning with urination. Review of Systems Visit for HPI otherwise unremarkable Past Medical History Past Medical History: Coronary Artery Disease (CAD), COPD, GERD/Reflux, Hyperlipidemia, Pneumonia, Rheumatoid Arthritis (RA) Additional Past Medical History / Comment(s): History of pancreatitis, 2012 past medical record documents viral pericarditis but pt denies, gastritis, has home O2 at only but has not been using. Fluid build up rt lung - previous chest tube - pt unsure what it is from, BOTTOM TEETH REMOVED 09-01-18 History of Any Multi-Drug Resistant Organisms: MRSA Date of last positivie culture/infection: 11/23/18 MDRO Source:: KNEE Past Surgical History: Heart Catheterization With Stent, Joint Replacement, Orthopedic Surgery Additional Past Surgical History / Comment(s): Total L knee arthroplasty with a spacer in place, R total shoulder replaced, L ankle ORIF d/t fracture, EGD, left rotator cuff repair. right ankle sx, thoracentesis, chest tube rt lung Past Anesthesia/Blood Transfusion Reactions: No Reported Reaction Additional Past Anesthesia/Blood Transfusion Reaction / Comment(s): Pt states he has never recieved blood. Date of Last Stent Placement:: 12/10/16 Past Psychological History: No Psychological Hx Reported Smoking Status: Former smoker - Past Family History Sister(s) Family Medical History: Cancer Additional Family Medical History / Comment(s): pt's father had ra, mother had 16 children was healthy most of her life age 93 from dementia. Mother Family Medical History: Dementia Father Family Medical History: Rheumatoid Arthritis (RA) Medications and Allergies Home Medications Medication Instructions Recorded Confirmed Type predniSONE 10 mg PO TID 09/02/18 01/19/19 History hydrOXYzine PAMOATE [Vistaril] 25 mg PO QID 01/19/19 01/19/19 History oxyCODONE-APAP 10-325MG [Percocet 2 tab PO QID 01/19/19 01/19/19 History 10-325 mg] Allergies Allergy/AdvReac Type Severity Reaction Status Date / Time No Known Allergies Allergy Verified 01/19/19 10:20 Physical Exam Vitals: Vital Signs Temp Pulse Resp BP Pulse Ox 01/19/19 11:00 118 H 26 H 115/61 91 L 01/19/19 10:00 126 H 11 L 107/80 92 L 01/19/19 09:52 102.1 F H 125 H 25 H 107/80 90 L Intake and Output 01/18/19 01/19/19 01/19/19 22:59 06:59 14:59 Other: Voiding Method Urinal Weight 120.202 kg Head normocephalic Neck supple Lungs clear to auscultation bilaterally no wheezing or crackles Heart regular rate and rhythm S1-S2, no rub or gallop Abdomen is soft nontender nondistended positive bowel sounds no hepatosplenomegaly Extremities no edema. Left leg immobilizer. Left knee wound VAC placed. Site does not appear red or swollen Neuro alert and orientated to 3 Results CBC & Chem 7: 01/19/19 10:04 01/19/19 10:04 Labs: Abnormal Lab Results - Last 24 Hours (Table) 01/19/19 Range/Units 10:04 Glucose 234 H (74-99) mg/dL Assessment and Plan Assessment: 1. Febrile illness. Fever of 102.1. Influenza negative. UA negative. Lactic acid 1.4. Blood urine and sputum cultures ordered. Dr. Paul for infectious disease has been consulted 2. Status post revision of left total knee arthroplasty. Patient previously has had removal of antibiotic spacer and placement of new spacer in June 2018. Patient reports that he's been following at [facility] in which approximately 2 weeks ago he had left the incision cleaned out and wound VAC placed. 3. History of pneumonia with empyema. In June 2018 patient was treated w ith 6 weeks of vancomycin and pigtail placement. Pulmonary services have been reconsulted 4. History of coronary artery disease 5. History of pancreatitis 6. History of rheumatoid arthritis. Patient is maintained on prednisone 10 mg 3 times a day 7. History of hyperlipidemia 8. History of GERD DVT prophylaxis heparin. GI prophylaxis Protonix. Infectious disease and pulmonary services have been consulted. Blood, sputum and urine cultures ordered Time with Patient: Greater than 30 (Greater than 60% of the total time spent in counseling and coordination of care. I performed an examination of the patient and discussed their management with the Nurse Practitioner. I have reviewed the Nurse Practitioner's notes and agree with the documented findings and plan of care)
[2019-01-19] MEDS ORDERED: VANCOMYCIN IV PER PHARMACY 1 EACH MISC MISCELLANE PRN (15:24)
[2019-01-19] MEDS ORDERED: predniSONE 10 MG TAB PO SCH (16:00)
--- NOTE | 2019-01-19 17:20 | P.CNPUL ---
History of Present Illness Consult date: 01/19/19 Requesting physician: Abad Vaca Reason for consult: other Chief complaint: Altered mental status, fever History of present illness: This is 73-year-old white male patient of Dr. Montemayor, with history of MRSA infection in the left knee following joint replacement, who underwent arthroplasty of the left knee with removal of hardware and placement of a spacer 2, most recently 2 weeks ago at the [facility] in [place]. Patient had a wound VAC placed on his left knee, and cultures of left knee drainage were positive for MRSA. Patient was an outpatient infusions of daptomy vitor, managed by Dr. Paul. He is getting daily IV antibiotics, he has a visiting nurse coming to his house 3-4 times weekly. Patient has a history of rheumatoid arthritis, was on suppressive therapy with methotrexate, currently on prednisone 10 mg 3 times a day. His original surgery of left total knee arthroplasty was over 15 years ago. In May 2018 patient was hospitalized with MRSA bacteremia, left knee septic arthritis with cultures positive for MRSA, and at that time he underwent left knee incision and drainage and removal of the left knee components and insertion of antibiotic spacers. He also had left shoulder pain he was felt to have synovitis of the left shoulder without active infection, left shoulder synovial fluid cultures were negative. Patient did require intubation and mechanical ventilation during that admission for acute exacerbation of congestive heart failure. We saw the patient in June 2018, for a right lower lung consolidation, a parapneumonic effusion, and there was a concern for empyema, patient had a pigtail chest tube catheter placed on the right, but the pleural fluid cultures were negative. The effusion was loculated, patient did receive TPA infusions, he was treated but does Zosyn and vancomycin, improved, and was discharged to [facility] for rehabilitation. Medical history includes coronary artery disease with previous stent placement, COPD with former history of smoking, 40+ pack years, GERD, severe rheumatoid arthritis. Follows with Dr. Guerrero for primary care services. On 01/19/2019 patient was brought in by ambulance to the emergency department, after being noted to be lethargic, confused, babbling, not making any sense. Patient was having shaking chills, fever, and was having increased pain in his left knee. He has his for some pain medications and for his anxiety, and his called the EMS and brought into the hospital for further evaluation. He was well last night. She stated he did sound congested, he was coughing, but not bringing up any sputum, he denied any chest pain. On presentation to the emergency department patient was febrile with a temp of 102.1F, hypotensive with systolic in the 80s, tachycardic with a heart rate in the 120s BPM. He was given a total of 2 L of IV fluids, maintenance IV fluids infusing at rate of 150 ML per hour, labs showed white blood cell count of 7.9, hemoglobin of 14.4, electrolytes were within normal limits, normal renal profile, glucose was 234, lactic acid was 1.4, urinalysis was negative, fluids a screen was negative. Chest x-ray was completed and showed some pulmonary venous congestion without overt heart failure, and pleural parenchymal density in the right lung base could be chronic in nature. Right arm PICC line is in place. We were consulted in regards to sepsis, and the possibility of underlying pneumonia. My evaluation patient is resting on the gurney, he is lethargic, but arousable to verbal stimuli, his is present, and providing much of the history, patient denies any pulmonary complaints at this time, no chest pain, no shortness of breath, no cough or congestion. His lung sounds are diminished at the bases, with minimal crackles. No significant wheezing or rhonchi. ID Service has been consulted. Blood urine and sputum cultures have been ordered and sent. The blood pressure is still in the 80s over 50s, patient less tachycardic, sinus rhythm on the monitor with a rate of 97 BPM, left knee is quite warm to touch, VAC is on, but the batteries had run out, and the suction is currently off, there is black foam present left knee wound. Mild swelling in the left lower extremity, immobilizers in place. Review of Systems All systems: negative Constitutional: Reports lethargy, Reports weakness, Denies chills, Denies fever Eyes: denies blurred vision, denies pain Ears, nose, mouth and throat: Denies headache, Denies sore throat Cardiovascular: Denies chest pain, Denies shortness of breath Respiratory: Denies cough Gastrointestinal: Denies abdominal pain, Denies diarrhea, Denies nausea, Denies vomiting Musculoskeletal: Denies myalgias Musculoskeletal: left: knee pain, knee swelling Integumentary: Denies pruritus, Denies rash Neurological: Reports change in mentation, Denies numbness, Denies weakness Psychiatric: Denies anxiety, Denies depression Endocrine: Denies fatigue, Denies weight change Past Medical History Past Medical History: Coronary Artery Disease (CAD), COPD, GERD/Reflux, Hyperlipidemia, Pneumonia, Rheumatoid Arthritis (RA) Additional Past Medical History / Comment(s): History of pancreatitis, 2012 past medical record documents viral pericarditis but pt denies, gastritis, has home O2 at HS only but has not been using. Fluid build up rt lung - previous chest tube - pt unsure what it is from, BOTTOM TEETH REMOVED 09-01-18 History of Any Multi-Drug Resistant Organisms: MRSA Date of last positivie culture/infection: 11/23/18 MDRO Source:: KNEE Past Surgical History: Heart Catheterization With Stent, Joint Replacement, Orthopedic Surgery Additional Past Surgical History / Comment(s): Total L knee arthroplasty with a spacer in place, R total shoulder replaced, L ankle ORIF d/t fracture, EGD, left rotator cuff repair. right ankle sx, thoracentesis, chest tube rt lung Past Anesthesia/Blood Transfusion Reactions: No Reported Reaction Additional Past Anesthesia/Blood Transfusion Reaction / Comment(s): Pt states he has never recieved blood. Date of Last Stent Placement:: 12/10/16 Past Psychological History: No Psychological Hx Reported Smoking Status: Former smoker - Past Family History Sister(s) Family Medical History: Cancer Additional Family Medical History / Comment(s): pt's father had ra, mother had 16 children was healthy most of her life age 93 from dementia. Mother Family Medical History: Dementia Additional Family Medical History / Comment(s): Mother from dementia at the age of 93 yrs. Father Family Medical History: Rheumatoid Arthritis (RA) Medications and Allergies Home Medications Medication Instructions Recorded Confirmed Type predniSONE 10 mg PO TID 09/02/18 01/19/19 History hydrOXYzine PAMOATE [Vistaril] 25 mg PO QID 01/19/19 01/19/19 History oxyCODONE-APAP 10-325MG [Percocet 2 tab PO QID 01/19/19 01/19/19 History 10-325 mg] Allergies Allergy/AdvReac Type Severity Reaction Status Date / Time No Known Allergies Allergy Verified 01/19/19 10:20 Physical Exam Vitals: Vital Signs Temp Pulse Resp BP Pulse Ox 01/19/19 15:00 95 23 82/57 95 01/19/19 14:00 111 H 33 H 83/59 95 01/19/19 13:52 99.1 F 01/19/19 13:30 105 H 24 80/51 94 L 01/19/19 13:00 109 H 20 80/58 94 L 01/19/19 12:30 114 H 25 H 96/60 94 L 01/19/19 12:00 116 H 19 85/54 90 L 01/19/19 11:30 113 H 23 81/63 93 L 01/19/19 11:00 118 H 26 H 115/61 91 L 01/19/19 10:00 126 H 11 L 107/80 92 L 01/19/19 09:52 102.1 F H 125 H 25 H 107/80 90 L Intake and Output 01/19/19 01/19/19 01/19/19 06:59 14:59 22:59 Other: Voiding Method Urinal Weight 120.202 kg 79.379 kg GENERAL EXAM: Lethargic but arousable to verbal stimuli 73-year-old male, comfortable in no apparent distress. HEAD: Normocephalic/atraumatic. EYES: Normal reaction of pupils, equal size. Conjunctiva pink, sclera white. NOSE: Clear with pink turbinates. THROAT: No erythema or exudates. NECK: No masses, no JVD, no thyroid enlargement, no adenopathy. CHEST: No chest wall deformity. Symmetrical expansion. LUNGS: Equal air entry with no crackles, wheeze, rhonchi or dullness. CVS: Regular rate and rhythm, normal S1 and S2, no gallops, no murmurs, no rubs ABDOMEN: Soft, nontender. No hepatosplenomegaly, normal bowel sounds, no guarding or rigidity. EXTREMITIES: No clubbing, 1+ edema and lower extremity, pedal and pretibial, left knee is in the immobilizer, wound VAC is present with black foam on the left knee, no cyanosis, 2+ pulses and upper and lower extremities. MUSCULOSKELETAL: Muscle strength and tone normal. SPINE: No scoliosis or deformity SKIN: No rashes CENTRAL NERVOUS SYSTEM: Tired but arousable and oriented -3. No focal deficits, tone is normal in all 4 extremities. Results - Laboratory Findings CBC and BMP: 01/19/19 10:04 01/19/19 10:04 Abnormal lab findings: Abnormal Labs 01/19/19 10:04 Glucose 234 H - Diagnostic Findings Chest x-ray: report reviewed, image reviewed Additional studies: EKG reviewed Assessment and Plan Plan: Assessment: #1. Acute septic shock, likely related to septic left knee, with recent history of left knee spacer replacement at [facility] and [place]. Most recent left knee wound culture was positive for MRSA, patient has had persistent left knee MRSA infection since May 2018 with revision of the left knee spacer placements. Has been on daptomycin infusions on an outpatient basis. #2. Altered mentation, fever, shaking chills related to above #3. Status post left knee arthroplasty, with revision, and MRSA infection, and placement of antibiotic spacers 2 #4. History of parapneumonic effusion on the right in June 2018, requiring pigtail chest tube insertion, TPA infusions, and pleural fluid cultures were negative #5. Chronic pleural parenchymal changes, paraseptal emphysema, bronchiectasis, and chronic fibrotic changes in the right base related to previous history of pneumonia. Doubt current pneumonia at this time #6. History of coronary artery disease with previous stenting #7. History of rheumatoid arthritis, previously on methotrexate, currently on oral prednisone #8. Hyperlipidemia #9. GERD Plan: We'll continue the IV fluids at a rate of 150 ML per hour, will restart stress dose of hydrocortisone 100 mg every 8 hours, we'll stop the oral prednisone for now. Chest x-ray and previous CAT scan of the chest has been reviewed with Dr. Manley, patient has multiple chronic pleural and parenchymal changes, denies any pulmonary complaints at this time, no shortness of breath, cough or congestion. Doubt underlying pneumonia. His chest the case with infectious disease service, he will be started on vancomycin, wound VAC is in place on the left knee. Will await further recommendations from ID service. GI and DVT prophylaxis. he will be admitted to the intensive care unit. Will await the results of the cultures. I performed a history & physical examination of the patient and discussed their management with my nurse practitioner, Yoselin Wiggins. I reviewed the nurse practitioner's note and agree with the documented findings and plan of care. Lung sounds are positive for clear breath sounds, diminished at the bases. The findings and the impression was discussed with the patient. I attest to the documentation by the nurse practitioner. Time with Patient: Greater than 30
[2019-01-19 17:52] LABS: Glucose,Whole Blood 118 mg/dL (75-99)
[2019-01-19] MEDS: HEPARIN SODIUM,PORCINE 5,000 UNIT/ML 1 ML VIAL SQ SCH ×2 (18:18→23:24)
[2019-01-19] MEDS: hydrOXYzine PAMOATE 25 MG CAP PO SCH ×3 (18:18→21:56)
[2019-01-19] MEDS: INSULIN ASPART (NovoLOG) 100 UNIT/ML VIAL SQ SCH ×2 (18:18→22:48)
[2019-01-19] MEDS: HYDROCORTISONE SUCCINATE 100 MG/2 ML VIAL IV SCH ×2 (18:23→23:23)
[2019-01-19] MEDS: VANCOMYCIN 1,750 MG in SODIUM CHLORIDE 0.9% 500 ML 500 ML IVPB SCH (18:25)
[2019-01-19] MEDS: oxyCODONE-APAP 10-325MG 1 EACH TAB PO PRN (19:42)
[2019-01-19 22:20] LABS: Glucose,Whole Blood 129 mg/dL (75-99)
--- NOTE | 2019-01-19 22:46 | P.CONS ---
History of Present Illness - Reason for Consult Consult date: 01/19/19 - Chief Complaint altered mental status - History of Present Illness 73-year-old male infectious disease service from his recent hospitalization which point in time he developed significant infection. Patient has a long-standing history of rheumatoid arthritis for about 25 years under the care of rheumatology with prednisone and infusions of methotrexate being done. Given the multiple infections methotrexate was placed on hold. On the last admission the patient evidence of extensive swelling to his left leg and he was left shoulder and he also had evidence of high-grade fevers and sepsis with leukocytosis. Purulent fluid from the left knee and left shoulder were found and the patient underwent surgical incision and drainage of both the sites. MRSA was isolated the patient was sent to rehab on intravenous antibiotic therapy with vancomycin. The patient was treated with the many week course of intravenous antibiotic therapy with eventual improvement of both of the sites. He did have a hospitalization with a large pleural effusion that was drained that was culture negative however the patient was on antibiotic therapy with vancomycin. Patient presented in September 2018 for elective revision of the left knee. was been having some ongoing pain but the effusion was improved. He's been followed by his historiographer In the operating room the patient underwent the incision and drainage and exploration of the knee. At that time a purulent fluid collection was enc ountered which was sent for culture. The knee was lavaged and there was an exchange of the antibiotic spacer performed.he was then treated with an extensive course of antibiotic therapy and referred back to his prior orthopedic surgeon. He recently was taken to the operating room and another debridement and exchange of antibiotic spacer occurred with ongoing infection. He is now being followed in the outpatient clinic for his outpatient intravenous antibiotic therapy. He was doing well but the patient's relates that at 6:30this morning he was up to start his day and shortlythereafter he became confused and much more ill. Eventually was brought to the emergency center and was found to have some mild confusion and hypotension and tachycardia. He subsequently has been admitted in the intensive care unit with concerns to sepsis. The patient was evaluated in the emergency center. Wound VAC was removed and a dry dressing was put into place of the surgical site.the patient is arousable, recognizes the observer but is not conversational and rapidly falls back to sleep. Review of Systems ROS unobtainable: due to mental status (the family relates the patient was well last night and early this morning with his usual status until he became progressively more lethargic and he was brought to hospital. The family does not relate that he had difficulty with nausea emesis increasing shortness of breath complaints of pain other than the knee no change of his urine or bowel habits and no new skin lesions.) Past Medical History Past Medical History: Coronary Artery Disease (CAD), COPD, GERD/Reflux, Hyperlipidemia, Pneumonia, Rheumatoid Arthritis (RA) Additional Past Medical History / Comment(s): History of pancreatitis, 2012 past medical record documents viral pericarditis but pt denies, gastritis, has home O2 at HS only but has not been using. Fluid build up rt lung - previous chest tube - pt unsure what it is from, BOTTOM TEETH REMOVED 09-01-18 History of Any Multi-Drug Resistant Organisms: MRSA Year Discovered:: 11/23/18 MDRO Source:: KNEE Past Surgical History: Heart Catheterization With Stent, Joint Replacement, Orthopedic Surgery Additional Past Surgical History / Comment(s): Total L knee arthroplasty with a spacer in place, R total shoulder replaced, L ankle ORIF d/t fracture, EGD, left rotator cuff repair. right ankle sx, thoracentesis, chest tube rt lung Past Anesthesia/Blood Transfusion Reactions: No Reported Reaction Additional Past Anesthesia/Blood Transfusion Reaction / Comm: Pt states he has never recieved blood. Date of Last Stent Placement:: 12/10/16 Past Psychological History: No Psychological Hx Reported Additional Psychological History / Comment(s): Patient was a smoker one to one and half packs per day for 40+ years and quit 2 years ago when he had cardiac stents done. He uses a synthetic marijuana at nighttime only for his arthritis to help him sleep. He denies any other street drug use, alcohol use. 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 He lives at home with his . Smoking Status: Former smoker - Past Family History Sister(s) Family Medical History: Cancer Additional Family Medical History / Comment(s): pt's father had ra, mother had 16 children was healthy most of her life age 93 from dementia. Mother Family Medical History: Dementia Additional Family Medical History / Comment(s): Mother from dementia at the age of 93 yrs. Father Family Medical History: Rheumatoid Arthritis (RA) Medications and Allergies Home Medications and Allergies Comment(s): Current Medications Heparin Sodium (Porcine) (Heparin) 5,000 unit SQ Q8HR [facility] Last Admin: 01/19/19 18:18 Dose: Not Given Documented by: Hydrocortisone Sodium Succinate (Solu-Cortef) 100 mg IV Q8HR [facility] Last Admin: 01/19/19 18:23 Dose: 100 mg Documented by: Hydroxyzine Pamoate (Vistaril) 25 mg PO QID [facility] Last Admin: 01/19/19 21:56 Dose: 25 mg Documented by: Sodium Chloride (Saline 0.9%) 1,000 mls @ 150 mls/hr IV .Q6H40M [facility] Last Admin: 01/19/19 12:02 Dose: 150 mls/hr Documented by: Vancomycin HCl 1,750 mg/ (Sodium Chloride) 500 mls @ 167 mls/hr IVPB Q12H [facility] Last Admin: 01/19/19 18:25 Dose: 167 mls/hr Documented by: Ceftazidime 2 gm/ Sodium (Chloride) 100 mls @ 100 mls/hr IVPB Q8H [facility] Last Admin: 01/19/19 21:57 Dose: 100 mls/hr Documented by: Insulin Aspart (Novolog) 0 unit SQ ACHS [facility]; Protocol Last Admin: 01/19/19 18:18 Dose: Not Given Documented by: Oxycodone/Acetaminophen (Percocet 10-325) 2 each PO QID PRN PRN Reason: MODERATE PAIN Last Admin: 01/19/19 19:42 Dose: 2 each Documented by: Pantoprazole Sodium (Protonix) 40 mg PO AC-BRKFST [facility] Home Medications Medication Instructions Recorded Confirmed Type predniSONE 10 mg PO TID 09/02/18 01/19/19 History Ascorbic Acid [Vitamin C] 500 mg PO BID 01/19/19 01/19/19 History Aspirin EC [Ecotrin Low Dose] 81 mg PO BID 01/19/19 01/19/19 History Diazepam 10 mg PO Q6H PRN 01/19/19 01/19/19 History Meloxicam 15 mg PO DAILY 01/19/19 01/19/19 History Multivitamin,Therapeutic [Thera] 1 tab PO DAILY 01/19/19 01/19/19 History Sennosides [Senna] 8.6 mg PO BID PRN 01/19/19 01/19/19 History Zinc Sulfate 220 mg PO DAILY 01/19/19 01/19/19 History hydrOXYzine PAMOATE [Vistaril] 25 mg PO QID 01/19/19 01/19/19 History oxyCODONE-APAP 10-325MG [Percocet 2 tab PO QID 01/19/19 01/19/19 History 10-325 mg] traMADol HCL [Ultram] 50 - 100 mg PO Q8H PRN 01/19/19 01/19/19 History Allergies Allergy/AdvReac Type Severity Reaction Status Date / Time No Known Allergies Allergy Verified 01/19/19 10:20 Physical Exam Vitals: Vital Signs Temp Pulse Pulse Resp BP BP Pulse Ox 01/19/19 18:00 87 24 101/62 94 L 01/19/19 17:43 98.3 F 89 24 101/62 96 01/19/19 17:09 98.3 F 92 18 88/59 99 01/19/19 15:00 95 23 82/57 95 01/19/19 14:00 111 H 33 H 83/59 95 01/19/19 13:52 99.1 F 01/19/19 13:30 105 H 24 80/51 94 L 01/19/19 13:00 109 H 20 80/58 94 L 01/19/19 12:30 114 H 25 H 96/60 94 L 01/19/19 12:00 116 H 19 85/54 90 L 01/19/19 11:30 113 H 23 81/63 93 L 01/19/19 11:00 118 H 26 H 115/61 91 L 01/19/19 10:00 126 H 11 L 107/80 92 L 01/19/19 09:52 102.1 F H 125 H 25 H 107/80 90 L Intake and Output 01/19/19 01/19/19 01/19/19 06:59 14:59 22:59 Intake Total 650 Output Total 500 Balance 150 Intake: Intake, IV Titration 650 Amount Sodium Chloride 0.9% 1, 150 000 ml @ 150 mls/hr IV . Q6H40M [facility] Rx#:[id number] Vancomycin 1,750 mg In 500 Sodium Chloride 0.9% 500 ml 500 ml @ 167 mls/hr IVPB Q12H [facility] Rx#: [id number] Output: Urine 500 Other: Voiding Method Urinal Urinal # Voids 1 Weight 120.202 kg 86.5 kg 73-year-old male lying in bed in the ER. Arousable, seems to recognize the observer rapidly falls back to sleep. Does not engage in conversation does complain of left leg pain no other new complaint could be elucidated at this time HEENT: Anicteric conjunctiva are pink and moist nasal mucosa grossly intact without significant lesions, there is no thrush. Neck: The neck is supple without significant lymphadenopathy or thyromegaly. Lungs: symmetrical air entry with expiratory wheezes no salty bronchial sounds on dullness or egophony Heart: tachycardic but with regular rhythm with an audible S1-S2, no S3 no S4. There is no significant murmur click or rub, PMI was nondisplaced. Abdomen: mildly obese,Positive bowel sounds soft and nontender without palpable masses or organomegaly. There was no guarding or rebound. Extremities: Tthe upper and lower extremities have the profound deformity from his rheumatoid arthritis. The left knee is evaluated. There is some warmth and swelling due to the recent surgical intervention, the lakisha are in place no stiffing and drainage is being seen at this point in time. The wound VAC is removed dry dressing is put in the place Neuro: the patient is arousable and oriented to person seems to recognize he observer but rapidly falls back to sleep. Results CBC & Chem 7: 01/19/19 10:04 01/19/19 10:04 Labs: Abnormal Lab Results - Last 24 Hours (Table) 01/19/19 01/19/19 01/19/19 Range/Units 10:04 17:40 22:08 Glucose 234 H (74-99) mg/dL POC Glucose (mg/dL) 118 H 129 H (75-99) mg/dL Laboratory Results WBC 7.9 k/uL (3.8-10.6) 01/19/19 10:04 RBC 5.10 m/uL (4.30-5.90) 01/19/19 10:04 Hgb 14.4 gm/dL (13.0-17.5) 01/19/19 10:04 Hct 44.8 % (39.0-53.0) 01/19/19 10:04 MCV 87.8 fL (80.0-100.0) 01/19/19 10:04 MCH 28.3 pg (25.0-35.0) 01/19/19 10:04 MCHC 32.2 g/dL (31.0-37.0) 01/19/19 10:04 RDW 13.9 % (11.5-15.5) 01/19/19 10:04 Plt Count 281 k/uL (150-450) 01/19/19 10:04 Neutrophils % 76 % 01/19/19 10:04 Lymphocytes % 19 % 01/19/19 10:04 Monocytes % 3 % 01/19/19 10:04 Eosinophils % 1 % 01/19/19 10:04 Basophils % 0 % 01/19/19 10:04 Neutrophils # 6.0 k/uL (1.3-7.7) 01/19/19 10:04 Lymphocytes # 1.5 k/uL (1.0-4.8) 01/19/19 10:04 Monocytes # 0.3 k/uL (0-1.0) 01/19/19 10:04 Eosinophils # 0.1 k/uL (0-0.7) 01/19/19 10:04 Basophils # 0.0 k/uL (0-0.2) 01/19/19 10:04 Sodium 139 mmol/L (137-145) 01/19/19 10:04 Potassium 4.6 mmol/L (3.5-5.1) 01/19/19 10:04 Chloride 102 mmol/L (98-107) 01/19/19 10:04 Carbon Dioxide 24 mmol/L (22-30) 01/19/19 10:04 Anion Gap 13 mmol/L 01/19/19 10:04 BUN 9 mg/dL (9-20) 01/19/19 10:04 Creatinine 0.77 mg/dL (0.66-1.25) 01/19/19 10:04 Est GFR (CKD-EPI)AfAm >90 (>60 ml/min/1.73 sqM) 01/19/19 10:04 Est GFR (CKD-EPI)NonAf >90 (>60 ml/min/1.73 sqM) 01/19/19 10:04 Glucose 234 mg/dL (74-99) H 01/19/19 10:04 POC Glucose (mg/dL) 129 mg/dL (75-99) H 01/19/19 22:08 POC Glu Rate Clerk Passenger ID Julio Cesar Hoyos 01/19/19 22:08 Plasma Lactic Acid Harsh 1.4 mmol/L (0.7-2.0) 01/19/19 10:04 Calcium 9.8 mg/dL (8.4-10.2) 01/19/19 10:04 Total Bilirubin 0.5 mg/dL (0.2-1.3) 01/19/19 10:04 AST 37 U/L (17-59) 01/19/19 10:04 ALT 66 U/L (21-72) 01/19/19 10:04 Alkaline Phosphatase 109 U/L (38-126) 01/19/19 10:04 Troponin I <0.012 ng/mL (0.000-0.034) 01/19/19 10:04 NT-Pro-B Natriuret Pep 53 pg/mL 01/19/19 10:08 Total Protein 7.0 g/dL (6.3-8.2) 01/19/19 10:04 Albumin 4.2 g/dL (3.5-5.0) 01/19/19 10:04 Urine Color Light Yellow 01/19/19 10:04 Urine Appearance Clear (Clear) 01/19/19 10:04 Urine pH 7.0 (5.0-8.0) 01/19/19 10:04 Ur Specific [place] 1.017 (1.001-1.035) 01/19/19 10:04 Urine Protein Negative (Negative) 01/19/19 10:04 Urine Glucose (UA) Negative (Negative) 01/19/19 10:04 Urine Ketones Negative (Negative) 01/19/19 10:04 Urine Blood Negative (Negative) 01/19/19 10:04 Urine Nitrite Negative (Negative) 01/19/19 10:04 Urine Bilirubin Negative (Negative) 01/19/19 10:04 Urine Urobilinogen <2.0 mg/dL (<2.0) 01/19/19 10:04 Ur Leukocyte Esterase Negative (Negative) 01/19/19 10:04 Random Vancomycin <5.0 ug/mL 01/19/19 10:04 Influenza Type A RNA Not Detected (Not Detectd) 01/19/19 10:25 Influenza Type B (PCR) Not Detected (Not Detectd) 01/19/19 10:25 Assessment and Plan (1) Hypotensive episode Current Visit: Yes Status: Acute Code(s): I95.9 - HYPOTENSION, UNSPECIFIED SNOMED Code(s): 41913655 (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 The patient awoke this morning was relatively normal rapidly became lethargic with some confusion. Constantly he was brought to the emergency center was without evidence of fever, tachycardia and hypotension. Is now debridement in the intensive care unit for treatment of his sepsis. Given the patient does have some pulmonary symptoms or as concerns this is a potential second is source of infection other than the left total knee arthroplasty that was infected in counseling antibiotic therapy has been altered from daptomycin to vancomycin. Gram-negative coverage is adequate with Fortaz. Stress dose of hydrocortisone was given and the case is discussed with pulmonary critical care. Cultures are in process. Had yet to be placed on vasoactive agents and is receiving fluid resuscitation. Current Visit: No Status: Acute Code(s): T84.54XA - INFECT/INFLM REACTION DUE TO INTERNAL LEFT KNEE PROSTH, INIT; Z96.652 - PRESENCE OF LEFT ARTIFICIAL KNEE JOINT SNOMED Code(s): 172466319
[2019-01-20] MEDS: SODIUM CHLORIDE 0.9% 1,000 ML IV SCH ×4 (05:58→20:48)
[2019-01-20] MEDS: VANCOMYCIN 1,750 MG in SODIUM CHLORIDE 0.9% 500 ML 500 ML IVPB SCH ×2 (05:58→17:43)
[2019-01-20] MEDS: oxyCODONE-APAP 10-325MG 1 EACH TAB PO PRN ×3 (07:11→20:52)
[2019-01-20] MEDS: PANTOPRAZOLE 40 MG TABLET PO SCH (07:11)
[2019-01-20 07:22] LABS: Glucose,Whole Blood 144 mg/dL (75-99)
[2019-01-20] MEDS: INSULIN ASPART (NovoLOG) 100 UNIT/ML VIAL SQ SCH ×4 (07:38→20:49)
[2019-01-20 09:36] VITALS: BMI 30.4
[2019-01-20] MEDS: HYDROCORTISONE SUCCINATE 100 MG/2 ML VIAL IV SCH (10:38)
[2019-01-20] MEDS: HEPARIN SODIUM,PORCINE 5,000 UNIT/ML 1 ML VIAL SQ SCH ×2 (10:38→16:59)
[2019-01-20] MEDS: hydrOXYzine PAMOATE 25 MG CAP PO SCH ×4 (10:39→20:50)
--- NOTE | 2019-01-20 11:21 | P.PN ---
Subjective Progress Note Date: 01/20/19 This is a 73-year-old male patient who presented to the hospital with complaint of febrile illness and altered mental status changes. Patient's is at bedside reports that patient was confused this a.m. and had a high fever. Patient was recently admitted at [facility] in which they cleaned out left knee incision approximate 2 weeks ago. Currently wound VAC is in place. 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 Patient reports that he follows with Dr. Paul and receives IV antibiotics through office. Additional medical history includes empyema/parapneumonic effusion in June 2018 in which he was treated 6 weeks with Vanco and pigtail placement was later removed. Additional medical history includes CAD, pancreatitis, rheumatoid arthritis which she is maintained on prednisone, GERD and hyperlipidemia. Influenza negative. UA negative. Chest x-ray completed showing pulmonary venous congestion with out overt failure. Pleural parenchymal density right lung bases likely chronic in nature. Patient does report he had a cough. Dr. Paul for infectious disease and pulmonary services have been consulted. EKG completed showing sinus tachycardia. At this time patient is sleepy but will wake up and answer questions. Patient denies any recent diarrhea or pain in abdomen. Patient denies nausea vomiting diarrhea. Patient denies chest pain or shortness of breath. Patient denies any burning with urination. On 01/20/2019. Patient is much more alert and oriented today compared to yesterday. Patient is currently resting comfortably in bed. Patient has been afebrile. Patient is currently in the intensive care unit due to having hypotension last night. Patient did not require any pressure support medication. Blood pressure has significantly improved. Patient currently on vancomycin and daptomycin. Blood, urine and spuum cultures have been ordered. Pulmonary and infectious disease is following. At this time patient denies chest pain or shortness breath. Patient denies nausea vomiting or diarrhea. Patient denies any urinary burning or frequency. Objective - Vital Signs Vital signs: Vital Signs Temp 97.8 F 01/20/19 08:00 Pulse 74 01/20/19 10:00 Resp 20 01/20/19 10:00 BP 100/66 01/20/19 10:00 Pulse Ox 96 01/20/19 10:00 Intake & Output 01/19/19 01/20/19 01/20/19 18:59 06:59 18:59 Intake Total 650 1770 1528 Output Total 500 910 225 Balance 461 058 7859 Weight 86.5 kg 88 kg 88 kg Intake: Intake, IV Titration 650 1650 1048 Amount Sodium Chloride 0.9% 1, 150 1050 450 000 ml @ 150 mls/hr IV . Q6H40M [facility] Rx#:[id number] Vancomycin 1,750 mg In 500 500 498 Sodium Chloride 0.9% 500 ml 500 ml @ 167 mls/hr IVPB Q12H [facility] Rx#: [id number] cefTAZidime 2 gm In 100 100 Sodium Chloride 0.9% 100 ml @ 100 mls/hr IVPB Q8H [facility] Rx#:[id number] Oral 120 480 Output: Urine 500 910 225 Other: Voiding Method Urinal Urinal # Voids 1 - Exam Head normocephalic Neck supple Lungs clear to auscultation bilaterally no wheezing or crackles Heart regular rate and rhythm S1-S2, no rub or gallop Abdomen is soft nontender nondistended positive bowel sounds no hepatosplenomegaly Extremities no edema Neuro alert and orientated to 3 - Labs CBC & Chem 7: 01/19/19 10:04 01/19/19 10:04 Labs: Abnormal Lab Results - Last 24 Hours (Table) 01/19/19 01/19/19 01/20/19 Range/Units 17:40 22:08 07:10 POC Glucose (mg/dL) 118 H 129 H 144 H (75-99) mg/dL Microbiology - Last 24 Hours (Table) 01/19/19 10:02 Urine Culture - Preliminary Urine,Voided Assessment and Plan Assessment: 1. Acute septic shock with Febrile illness likely related to septic left knee.. Fever of 102.1. Influenza negative. UA negative. Lactic acid 1.4. Blood urine and sputum cultures ordered. Patient currently on Vancomycin and Fortaz for IV antibiotics 2. 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 Patient reports that he's been following at [facility] in which approximately 2 weeks ago he had left the inc ision cleaned out and wound VAC placed. 3. History of parapneumonic effusion. I. In June 2018 patient was treated with 6 weeks of vancomycin and pigtail placement. Pulmonary services have been reconsulted 4. History of coronary artery disease 5. History of pancreatitis 6. History of rheumatoid arthritis. Patient is maintained on prednisone 10 mg 3 times a day 7. History of hyperlipidemia 8. History of GERD 9. Hypotension. Patient initially admitted to the intensive care unit for close monitoring. Blood pressure has improved. Patient did not require any pressure support medication. DVT prophylaxis heparin. GI prophylaxis Protonix. Infectious disease and pulmonary services are following Patient currently on vancomycin and Fortaz IV antibiotics. Patient currently solucortef 100 mg every 8 hours per pulmonary I performed an examination of the patient and discussed their management with the Nurse Practitioner. I have reviewed the Nurse Practitioner's notes and agree with the documented findings and plan of care
[2019-01-20 11:58] LABS: Glucose,Whole Blood 150 mg/dL (75-99)
[2019-01-20 12:30] LABS: ALT 25 U/L (21-72); AST 18 U/L (17-59); Albumin 2.2 g/dL (3.5-5.0); Alkaline Phosphatase 93 U/L (38-126); Anion Gap 6 mmol/L; Blood Urea Nitrogen 15 mg/dL (9-20); Carbon Dioxide 23 mmol/L (22-30); Chloride 111 mmol/L (98-107); Glucose 125 mg/dL (74-99); Magnesium 1.8 mg/dL (1.6-2.3); Phosphorus 3.4 mg/dL (2.5-4.5); Sodium 140 mmol/L (137-145); Total Bilirubin 0.1 mg/dL (0.2-1.3)
[2019-01-20 13:01] LABS: Anisocytosis Slight; Basophils % (A) 0 %; Eosinophils # (A) 0.1 k/uL (0-0.7); Eosinophils % (A) 1 %; HCT 27.1 % (39.0-53.0); Hypochromasia Moderate; Lymphocytes # (A) 1.6 k/uL (1.0-4.8); Lymphocytes % (A) 11 %; MCH 27.4 pg (25.0-35.0); MCHC 30.7 g/dL (31.0-37.0); MCV 89.1 fL (80.0-100.0); Mean Platelet Volume 7.2; Monocytes # (A) 0.3 k/uL (0-1.0); Monocytes % (A) 2 %; Neutrophils # (A) 12.2 k/uL (1.3-7.7); Neutrophils % (A) 85 %; RBC 3.04 m/uL (4.30-5.90); RDW 18.9 % (11.5-15.5); WBC 14.3 k/uL (3.8-10.6)
[2019-01-20 13:03] LABS: HGB 8.3 gm/dL (13.0-17.5); Platelet Count 606 k/uL (150-450)
--- NOTE | 2019-01-20 13:04 | P.PN ---
Subjective Progress Note Date: 01/20/19 Principal diagnosis: Acute septic shock possibly related to septic left knee This is 73-year-old white male patient of Dr. 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 Patient had a wound VAC placed on his left knee, and cultures of left knee drainage were positive for MRSA. Patient was an outpatient infusions of daptomycin, managed by Dr. Paul. He is getting daily IV antibiotics, he has a visiting nurse coming to his house 3-4 times weekly. Patient has a history of rheumatoid arthritis, was on suppressive therapy with methotrexate, currently on prednisone 10 mg 3 times a day. His original surgery of left total knee arthroplasty was over 15 years ago. In May 2018 patient was hospitalized with MRSA bacteremia, left knee septic arthritis with cultures positive for MRSA, and at that time he underwent left knee incision and drainage and removal of the left knee components and insertion of antibiotic spacers. He also had left shoulder pain he was felt to have synovitis of the left shoulder without active infection, left shoulder synovial fluid cultures were negative. Patient did require intubation and mechanical ventilation during that admission for acute exacerbation of congestive heart failure. We saw the patient in June 2018, for a right lower lung consolidation, a parapneumonic effusion, and there was a concern for empyema, patient had a pigtail chest tube catheter placed on the right, but the pleural fluid cultures were negative. The effusion was loculated, patient did receive TPA infusions, he was treated but does Zosyn and vancomycin, improved, and was discharged to [facility] for rehabilitation. Medical history includes coronary artery disease with previous stent placement, COPD with former history of smoking, 40+ pack years, GERD, severe rheumatoid arthritis. Follows with Dr. Guerrero for primary care services. On 01/19/2019 patient was brought in by ambulance to the emergency department, after being noted to be lethargic, confused, babbling, not making any sense. Patient was having shaking chills, fever, and was having increased pain in his left knee. He has his for some pain medications and for his anxiety, and his called the EMS and brought into the hospital for further evaluation. He was well last night. She stated he did sound congested, he was coughing, but not bringing up any sputum, he denied any chest pain. On presentation to the emergency department patient was febrile with a temp of 102.1F, hypotensive with systolic in the 80s, tachycardic with a heart rate in the 120s BPM. He was given a total of 2 L of IV fluids, maintenance IV fluids infusing at rate of 150 ML per hour, labs showed white blood cell count of 7.9, hemoglobin of 14.4, electrolytes were within normal limits, normal renal profile, glucose was 234, lactic acid was 1.4, urinalysis was negative, fluids a screen was negative. Chest x-ray was completed and showed some pulmonary venous congestion without overt heart failure, and pleural parenchymal density in the right lung base could be chronic in nature. Right arm PICC line is in place. We were consulted in regards to sepsis, and the possibility of underlying pneumonia. My evaluation patient is resting on the gurney, he is lethargic, but arousable to verbal stimuli, his is present, and providing much of the history, patient denies any pulmonary complaints at this time, no chest pain, no shortness of breath, no cough or congestion. His lung sounds are diminished at the bases, with minimal crackles. No significant wheezing or rhonchi. ID Service has been consulted. Blood urine and sputum cultures have been ordered and sent. The blood pressure is still in the 80s over 50s, patient less tachycardic, sinus rhythm on the monitor with a rate of 97 BPM, left knee is quite warm to touch, VAC is on, but the batteries had run out, and the suction is currently off, there is black foam present left knee wound. Mild swelling in the left lower extremity, immobilizers in place. On 01/20/2019 patient seen again in follow-up in the intensive care unit, he is much more awake on today's exam, he is oriented 3, he is appropriate, he denies any specific complaints, no shortness of breath, chest pain, patient was febrile on presentation with a temp of 102.1F, he has been afebrile since, afebrile overnight, hemodynamically patient is more stable, no vasopressor support, IV 0.9 normal saline at a rate of 150 ML per hour, patient did receive IV fluid boluses a total of 2 L in fluid boluses, we restarted agents stress doses of hydrocortisone, antibiotic coverage in the form of Fortaz and vancomycin. Chest x-ray showed chronic pleural parenchymal changes related to his history of COPD, bronchiectasis, pulmonary fibrosis at the right base related to his history of pneumonia. Blood and urine cultures have been sent and are negative. Influenza screen was negative. Urinalysis was negative. A pulmonary complaints, no cough or congestion, no wheezing, some crackles at the bilateral bases likely related to underlying history of pulmonary fibrosis. No phlegm production, no evidence of active pulmonary disease, no pulmonary infection. Today's labs have been reviewed, BNP was done, sodium is 140, potassium is 4.0, chloride is 111, BUN is 15, creatinine is 0.60. Patient is voiding per urinal. Left knee wound VAC has been removed, incision is clean dry and intact, no drainage, lakisha are intact, covered with a sterile dressing. Left knee is less warm to touch compared to yesterday's exam Objective - Vital Signs Vital signs: Vital Signs Temp 97.8 F 01/20/19 08:00 Pulse 74 01/20/19 10:00 Resp 20 01/20/19 10:00 BP 100/66 01/20/19 10:00 Pulse Ox 96 01/20/19 10:00 Intake & Output 01/19/19 01/20/19 01/20/19 18:59 06:59 18:59 Intake Total 650 1770 1528 Output Total 500 910 225 Balance 268 609 4633 Weight 86.5 kg 88 kg 88 kg Intake: Intake, IV Titration 650 1650 1048 Amount Sodium Chloride 0.9% 1, 150 1050 450 000 ml @ 150 mls/hr IV . Q6H40M SURYA Rx#:[id number] Vancomycin 1,750 mg In 500 500 498 Sodium Chloride 0.9% 500 ml 500 ml @ 167 mls/hr IVPB Q12H SURYA Rx#: [id number] cefTAZidime 2 gm In 100 100 Sodium Chloride 0.9% 100 ml @ 100 mls/hr IVPB Q8H SURYA Rx#:[id number] Oral 120 480 Output: Urine 500 910 225 Other: Voiding Method Urinal Urinal # Voids 1 - Exam GENERAL EXAM: Awake and alert, pleasant 73-year-old male, comfortable i n no apparent distress. HEAD: Normocephalic/atraumatic. EYES: Normal reaction of pupils, equal size. Conjunctiva pink, sclera white. NOSE: Clear with pink turbinates. THROAT: No erythema or exudates. NECK: No masses, no JVD, no thyroid enlargement, no adenopathy. CHEST: No chest wall deformity. Symmetrical expansion. LUNGS: Equal air entry with no crackles, wheeze, rhonchi or dullness. CVS: Regular rate and rhythm, normal S1 and S2, no gallops, no murmurs, no rubs ABDOMEN: Soft, nontender. No hepatosplenomegaly, normal bowel sounds, no guarding or rigidity. EXTREMITIES: No clubbing, 1+ edema and lower extremity, pedal and pretibial, left knee is in the immobilizer, wound VAC has been removed midline left knee incision clean dry and intact, lakisha are intact, no drainage. Less warm to touch on today's exam MUSCULOSKELETAL: Muscle strength and tone normal. SPINE: No scoliosis or deformity SKIN: No rashes CENTRAL NERVOUS SYSTEM: Tired but arousable and oriented -3. No focal defici ts, tone is normal in all 4 extremities. - Labs CBC & Chem 7: 01/19/19 10:04 01/20/19 11:50 Labs: Abnormal Lab Results - Last 24 Hours (Table) 01/19/19 01/19/19 01/20/19 Range/Units 17:40 22:08 07:10 Chloride (98-107) mmol/L Creatinine (0.66-1.25) mg/dL Glucose (74-99) mg/dL POC Glucose (mg/dL) 118 H 129 H 144 H (75-99) mg/dL Calcium (8.4-10.2) mg/dL Total Bilirubin (0.2-1.3) mg/dL Total Protein (6.3-8.2) g/dL Albumin (3.5-5.0) g/dL 01/20/19 01/20/19 Range/Units 11:46 11:50 Chloride 111 H (98-107) mmol/L Creatinine 0.60 L (0.66-1.25) mg/dL Glucose 125 H (74-99) mg/dL POC Glucose (mg/dL) 150 H (75-99) mg/dL Calcium 8.0 L (8.4-10.2) mg/dL Total Bilirubin 0.1 L (0.2-1.3) mg/dL Total Protein 5.0 L (6.3-8.2) g/dL Albumin 2.2 L (3.5-5.0) g/dL Microbiology - Last 24 Hours (Table) 01/19/19 10:04 Blood Culture - Preliminary Blood No Growth after 24 hours 01/19/19 10:02 Urine Culture - Preliminary Urine,Voided Assessment and Plan Plan: Assessment: #1. Acute septic shock, possibly related to septic left knee, with recent history of left knee spacer replacement at [facility] and [place]. Most recent left knee wound culture was positive for MRSA, patient has had persistent left knee MRSA infection since May 2018 with revision of the left knee spacer placements. Has been on daptomycin infusions on an outpatient basis. No evidence of active pulmonary infection, no evidence of pneumonia. Chest X-ray showed a chronic pleural parenchymal changes #2. Altered mentation, fever, shaking chills related to above, resolved, and on today's exam on 01/20/2019 is mentation has improved, completely back to baseline, patient is awake and alert oriented 3, afebrile. #3. Status post left knee arthroplasty, with revision, and MRSA infection, and placement of antibiotic spacers 2 #4. History of parapneumonic effusion on the right in June 2018, requiring pigtail chest tube insertion, TPA infusions, and pleural fluid cultures were negative #5. Chronic pleural parenchymal changes, paraseptal emphysema, bronchiectasis, and chronic fibrotic changes in the right base related to previous history of pneumonia. Doubt current pneumonia at this time #6. History of coronary artery disease with previous stenting #7. History of rheumatoid arthritis, previously on methotrexate, currently on oral prednisone #8. Hyperlipidemia #9. GERD Plan: Patient is hemodynamically stable, much more awake and oriented on today's exam, no specific complaints, no pulmonary complaints, no shortness of breath, no cough or congestion, chest x-ray is negative for any evidence of active pu lmonary disease, no evidence of pneumonia or other infection. We will speak to ID service to see if they need to continue with vancomycin, if there is no pulmonary infection. Continue GI and DVT prophylaxis. Will await the results of final cultures. Afebrile since admission. Patient is stable to go out of the intensive care unit today to general medical floor. We'll continue to follow I performed a history & physical examination of the patient and discussed their management with my nurse practitioner, Yoselin Wiggins. I reviewed the nurse practitioner's note and agree with the documented findings and plan of care. Lung sounds are positive for clear breath sounds, diminished at the bases. The findings and the impression was discussed with the patient. I attest to the documentation by the nurse practitioner. Time with Patient: Less than 30
[2019-01-20 16:55] LABS: Glucose,Whole Blood 161 mg/dL (75-99)
[2019-01-20 20:40] LABS: Glucose,Whole Blood 166 mg/dL (75-99)
[2019-01-20 21:11] LABS: Hemoglobin A1C 5.6 % (4.0-6.0)
--- NOTE | 2019-01-20 21:27 | P.PN ---
Subjective Progress Note Date: 01/20/19 73-year-old male infectious disease service from his recent hospitalization which point in time he developed significant infection. Patient has a long-standing history of rheumatoid arthritis for about 25 years under the care of rheumatology with prednisone and infusions of methotrexate being done. Given the multiple infections methotrexate was placed on hold. On the last admission the patient evidence of extensive swelling to his left leg and he was left shoulder and he also had evidence of high-grade fevers and sepsis with leukocytosis. Purulent fluid from the left knee and left shoulder were found and the patient underwent surgical incision and drainage of both the sites. MRSA was isolated the patient was sent to rehab on intravenous antibiotic therapy with vancomycin. The patient was treated with the many week course of intravenous antibiotic therapy with eventual improvement of both of the sites. He did have a hospitalization with a large pleural effusion that was drained that was culture negative however the patient was on antibiotic therapy with vancomycin. Patient presented in September 2018 for elective revision of the left knee. was been having some ongoing pain but the effusion was improved. 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 At that time a purulent fluid collection was encountered which was sent for culture. The knee was lavaged and there was an exchange of the antibiotic spacer performed.he was then treated with an extensive course of antibiotic therapy and referred back to his prior orthopedic surgeon. He recently was taken to the operating room and another debridement and exchange of antibiotic spacer occurred with ongoing infection. He is now being followed in the outpatient clinic for his outpatient intravenous antibiotic therapy. He was doing well but the patient's relates that at 6:30this morning he was up to start his day and shortlythereafter he became confused and much more ill. Eventually was brought to the emergency center and was found to have some mild confusion and hypotension and tachycardia. He subsequently has been admitted in the intensive care unit with concerns to sepsis. The patient was evaluated in the emergency center. Wound VAC was removed and a dry dressing was put into place of the surgical site.the patient is arousable, recognizes the observer but is not conversational and rapidly falls back to sleep. 01/20/2019 patient is feeling considerably better today. Hypotension is resolved. Output is adequate. Pain to the knee is ongoing related to the recent surgical intervention. He is still with some wheezing and cough but denies fractures or rub. Hours not had much activity. No new areas of significant pain at the noted. Objective - Vital Signs Vital signs: Vital Signs Temp 98.1 F 01/20/19 15:28 Pulse 90 01/20/19 15:28 Resp 14 01/20/19 15:28 BP 104/69 01/20/19 15:31 Pulse Ox 94 L 01/20/19 15:28 Intake & Output 01/20/19 01/20/19 01/21/19 06:59 18:59 06:59 Intake Total 1770 2848 Output Total 910 226 Balance 860 2622 Weight 88 kg 88 kg Intake: Intake, IV Titration 1650 1648 Amount Sodium Chloride 0.9% 1, 1050 1050 000 ml @ 150 mls/hr IV . Q6H40M SURYA Rx#:[id number] Vancomycin 1,750 mg In 500 498 Sodium Chloride 0.9% 500 ml 500 ml @ 167 mls/hr IVPB Q12H SURYA Rx#: [id number] cefTAZidime 2 gm In 100 100 Sodium Chloride 0.9% 100 ml @ 100 mls/hr IVPB Q8H SURYA Rx#:[id number] Oral 120 1200 Output: Urine 910 225 Stool 1 Other: Voiding Method Urinal Toilet # Voids 1 - Exam 73-year-old male lying in bed now awake alert complains of some knee pain HEENT: Anicteric conjunctiva are pink and moist nasal mucosa grossly intact without significant lesions, there is no thrush. Neck: The neck is supple without significant lymphadenopathy or thyromegaly. Lungs: symmetrical air entry with expiratory wheezes no slaty bronchial sounds on dullness or egophony Heart: tachycardic but with regular rhythm with an audible S1-S2, no S3 no S4. There is no significant murmur click or rub, PMI was nondisplaced. Abdomen: mildly obese,Positive bowel sounds soft and nontender without palpable masses or organomegaly. There was no guarding or rebound. Extremities: Tthe upper and lower extremities have the profound deformity from his rheumatoid arthritis. The left knee is evaluated. There is some warmth and swelling due to the recent surgical intervention, the lakisha are in place no drainage is noted. Dry dressing is place. Neuro: patient is awake alert oriented to person place and time and does not have acute gross focal sensory motor deficits - Labs CBC & Chem 7: 01/20/19 12:20 01/20/19 11:50 Labs: Abnormal Lab Results - Last 24 Hours (Table) 01/19/19 01/20/19 01/20/19 Range/Units 22:08 07:10 11:46 WBC (3.8-10.6) k/uL RBC (4.30-5.90) m/uL Hgb (13.0-17.5) gm/dL Hct (39.0-53.0) % MCHC (31.0-37.0) g/dL RDW (11.5-15.5) % Plt Count (150-450) k/uL Neutrophils # (1.3-7.7) k/uL Chloride (98-107) mmol/L Creatinine (0.66-1.25) mg/dL Glucose (74-99) mg/dL POC Glucose (mg/dL) 129 H 144 H 150 H (75-99) mg/dL Calcium (8.4-10.2) mg/dL Total Bilirubin (0.2-1.3) mg/dL Total Protein (6.3-8.2) g/dL Albumin (3.5-5.0) g/dL 01/20/19 01/20/19 01/20/19 Range/Units 11:50 12:20 16:43 WBC 14.3 H (3.8-10.6) k/uL RBC 3.04 L (4.30-5.90) m/uL Hgb 8.3 L D (13.0-17.5) gm/dL Hct 27.1 L (39.0-53.0) % MCHC 30.7 L (31.0-37.0) g/dL RDW 18.9 H (11.5-15.5) % Plt Count 606 H D (150-450) k/uL Neutrophils # 12.2 H (1.3-7.7) k/uL Chloride 111 H (98-107) mmol/L Creatinine 0.60 L (0.66-1.25) mg/dL Glucose 125 H (74-99) mg/dL POC Glucose (mg/dL) 161 H (75-99) mg/dL Calcium 8.0 L (8.4-10.2) mg/dL Total Bilirubin 0.1 L (0.2-1.3) mg/dL Total Protein 5.0 L (6.3-8.2) g/dL Albumin 2.2 L (3.5-5.0) g/dL 01/20/19 Range/Units 20:14 WBC (3.8-10.6) k/uL RBC (4.30-5.90) m/uL Hgb (13.0-17.5) gm/dL Hct (39.0-53.0) % MCHC (31.0-37.0) g/dL RDW (11.5-15.5) % Plt Count (150-450) k/uL Neutrophils # (1.3-7.7) k/uL Chloride (98-107) mmol/L Creatinine (0.66-1.25) mg/dL Glucose (74-99) mg/dL POC Glucose (mg/dL) 166 H (75-99) mg/dL Calcium (8.4-10.2) mg/dL Total Bilirubin (0.2-1.3) mg/dL Total Protein (6.3-8.2) g/dL Albumin (3.5-5.0) g/dL Microbiology - Last 24 Hours (Table) 01/19/19 10:04 Blood Culture - Preliminary Blood No Growth after 24 hours 01/19/19 10:02 Urine Culture - Preliminary Urine,Voided Laboratory Results WBC 14.3 k/uL (3.8-10.6) H 01/20/19 12:20 RBC 3.04 m/uL (4.30-5.90) L 01/20/19 12:20 Hgb 8.3 gm/dL (13.0-17.5) L D 01/20/19 12:20 Hct 27.1 % (39.0-53.0) L 01/20/19 12:20 MCV 89.1 fL (80.0-100.0) 01/20/19 12:20 MCH 27.4 pg (25.0-35.0) 01/20/19 12:20 MCHC 30.7 g/dL (31.0-37.0) L 01/20/19 12:20 RDW 18.9 % (11.5-15.5) H 01/20/19 12:20 Plt Count 606 k/uL (150-450) H D 01/20/19 12:20 Neutrophils % 85 % 01/20/19 12:20 Lymphocytes % 11 % 01/20/19 12:20 Monocytes % 2 % 01/20/19 12:20 Eosinophils % 1 % 01/20/19 12:20 Basophils % 0 % 01/20/19 12:20 Neutrophils # 12.2 k/uL (1.3-7.7) H 01/20/19 12:20 Lymphocytes # 1.6 k/uL (1.0-4.8) 01/20/19 12:20 Monocytes # 0.3 k/uL (0-1.0) 01/20/19 12:20 Eosinophils # 0.1 k/uL (0-0.7) 01/20/19 12:20 Basophils # 0.0 k/uL (0-0.2) 01/20/19 12:20 Hypochromasia Moderate 01/20/19 12:20 Anisocytosis Slight 01/20/19 12:20 Sodium 140 mmol/L (137-145) 01/20/19 11:50 Potassium 4.0 mmol/L (3.5-5.1) 01/20/19 11:50 Chloride 111 mmol/L (98-107) H 01/20/19 11:50 Carbon Dioxide 23 mmol/L (22-30) 01/20/19 11:50 Anion Gap 6 mmol/L 01/20/19 11:50 BUN 15 mg/dL (9-20) 01/20/19 11:50 Creatinine 0.60 mg/dL (0.66-1.25) L 01/20/19 11:50 Est GFR (CKD-EPI)AfAm >90 (>60 ml/min/1.73 sqM) 01/20/19 11:50 Est GFR (CKD-EPI)NonAf >90 (>60 ml/min/1.73 sqM) 01/20/19 11:50 Glucose 125 mg/dL (74-99) H 01/20/19 11:50 POC Glucose (mg/dL) 166 mg/dL (75-99) H 01/20/19 20:14 POC Glu [employer] 01/20/19 20:[address] Glu mg/dL 114 01/20/19 12:20 Hemoglobin A1c 5.6 % (4.0-6.0) 01/20/19 12:20 Plasma Lactic Acid Harsh 1.4 mmol/L (0.7-2.0) 01/19/19 10:04 Calcium 8.0 mg/dL (8.4-10.2) L 01/20/19 11:50 Phosphorus 3.4 mg/dL (2.5-4.5) 01/20/19 11:50 Magnesium 1.8 mg/dL (1.6-2.3) 01/20/19 11:50 Total Bilirubin 0.1 mg/dL (0.2-1.3) L 01/20/19 11:50 AST 18 U/L (17-59) 01/20/19 11:50 ALT 25 U/L (21-72) 01/20/19 11:50 Alkaline Phosphatase 93 U/L (38-126) 01/20/19 11:50 Troponin I <0.012 ng/mL (0.000-0.034) 01/19/19 10:04 NT-Pro-B Natriuret Pep 53 pg/mL 01/19/19 10:08 Total Protein 5.0 g/dL (6.3-8.2) L 01/20/19 11:50 Albumin 2.2 g/dL (3.5-5.0) L 01/20/19 11:50 Urine Color Light Yellow 01/19/19 10:04 Urine Appearance Clear (Clear) 01/19/19 10:04 Urine pH 7.0 (5.0-8.0) 01/19/19 10:04 Ur Specific [place] 1.017 (1.001-1.035) 01/19/19 10:04 Urine Protein Negative (Negative) 01/19/19 10:04 Urine Glucose (UA) Negative (Negative) 01/19/19 10:04 Urine Ketones Negative (Negative) 01/19/19 10:04 Urine Blood Negative (Negative) 01/19/19 10:04 Urine Nitrite Negative (Negative) 01/19/19 10:04 Urine Bilirubin Negative (Negative) 01/19/19 10:04 Urine Urobilinogen <2.0 mg/dL (<2.0) 01/19/19 10:04 Ur Leukocyte Esterase Negative (Negative) 01/19/19 10:04 Random Vancomycin <5.0 ug/mL 01/19/19 10:04 Influenza Type A RNA Not Detected (Not Detectd) 01/19/19 10:25 Influenza Type B (PCR) Not Detected (Not Detectd) 01/19/19 10:25 Microbiology 01/19/19 10:04 Blood Blood Culture - Preliminary No Growth after 24 hours 01/19/19 10:02 Urine,Voided Urine Culture - Preliminary Assessment and Plan (1) Hypotensive episode Current Visit: Yes Status: Acute Code(s): I95.9 - HYPOTENSION, UNSPECIFIED SNOMED Code(s): 67055628 (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 The patient awoke this morning was relatively normal rapidly became lethargic with some confusion. Constantly he was brought to the emergency center was without evidence of fever, tachycardia and hypotension. Is now debridement in the intensive care unit for treatment of his sepsis. Given the patient does have some pulmonary symptoms or as concerns this is a potential second is source of infection other than the left total knee arthroplasty that was infected in counseling antibiotic therapy has been altered from daptomycin to vancomycin. Gram-negative coverage is adequate with Fortaz. Stress dose of hydrocortisone was given and the case is discussed with pulmonary critical care. Cultures are in process. Had yet to be placed on vasoactive agents and is receiving fluid resuscitation. 01/20/2019 patient feeling better today. Much more awake and alert and interactive. Has no new acute gross focal sensory motor deficits. Fever has improved. Patient appears to have an underlying pulmonary infection and is responding well to current antibiotic therapy of vancomycin and ceftazidime. Cultures are in process. He was seems to have responded well to a stress dose of hydrocortisone also. Continue ongoing supportive care. Cultures were help determine the course of antibiotic therapy at discharge. Current Visit: No Status: Acute Code(s): T84.54XA - INFECT/INFLM REACTION DUE TO INTERNAL LEFT KNEE PROSTH, INIT; Z96.652 - PRESENCE OF LEFT ARTIFICIAL KNEE JOINT SNOMED Code(s): 153069785
[2019-01-21] MEDS: HEPARIN SODIUM,PORCINE 5,000 UNIT/ML 1 ML VIAL SQ SCH ×4 (00:19→23:40)
[2019-01-21] MEDS: HYDROCORTISONE SUCCINATE 100 MG/2 ML VIAL IV SCH ×4 (00:25→23:40)
[2019-01-21] MEDS: oxyCODONE-APAP 10-325MG 1 EACH TAB PO PRN ×3 (04:44→23:27)
[2019-01-21] MEDS ORDERED: VANCOMYCIN TROUGH DUE 1 EACH MISC MISCELLANE ONE (05:00)
[2019-01-21] MEDS: SODIUM CHLORIDE 0.9% 1,000 ML IV SCH ×3 (05:27→17:54)
[2019-01-21] MEDS: VANCOMYCIN 1,750 MG in SODIUM CHLORIDE 0.9% 500 ML 500 ML IVPB SCH ×2 (06:57→19:04)
[2019-01-21 07:15] LABS: Glucose,Whole Blood 151 mg/dL (75-99)
[2019-01-21 07:25] LABS: Anisocytosis Slight; Basophils % (A) 0 %; Eosinophils # (A) 0.1 k/uL (0-0.7); Eosinophils % (A) 1 %; HCT 25.1 % (39.0-53.0); HGB 7.6 gm/dL (13.0-17.5); Hypochromasia Marked; Lymphocytes # (A) 1.2 k/uL (1.0-4.8); Lymphocytes % (A) 12 %; MCH 27.1 pg (25.0-35.0); MCHC 30.2 g/dL (31.0-37.0); MCV 89.5 fL (80.0-100.0); Mean Platelet Volume 7.2; Monocytes # (A) 0.2 k/uL (0-1.0); Monocytes % (A) 2 %; Neutrophils # (A) 8.7 k/uL (1.3-7.7); Neutrophils % (A) 84 %; Platelet Count 579 k/uL (150-450); RDW 18.5 % (11.5-15.5); WBC 10.3 k/uL (3.8-10.6)
[2019-01-21 07:26] LABS: ALT 34 U/L (21-72); AST 19 U/L (17-59); Albumin 2.2 g/dL (3.5-5.0); Alkaline Phosphatase 117 U/L (38-126); Anion Gap 3 mmol/L; Blood Urea Nitrogen 11 mg/dL (9-20); Calcium 7.8 mg/dL (8.4-10.2); Carbon Dioxide 24 mmol/L (22-30); Chloride 114 mmol/L (98-107); Glucose 124 mg/dL (74-99); Potassium 3.9 mmol/L (3.5-5.1); Sodium 141 mmol/L (137-145); Total Bilirubin 0.2 mg/dL (0.2-1.3); Total Protein 5.1 g/dL (6.3-8.2)
[2019-01-21] MEDS: INSULIN ASPART (NovoLOG) 100 UNIT/ML VIAL SQ SCH ×4 (08:07→21:21)
[2019-01-21] MEDS: PANTOPRAZOLE 40 MG TABLET PO SCH (08:07)
[2019-01-21] MEDS: hydrOXYzine PAMOATE 25 MG CAP PO SCH ×4 (10:46→21:22)
--- NOTE | 2019-01-21 10:55 | P.PN ---
Subjective Progress Note Date: 01/21/19 This is a 73-year-old male patient who presented to the hospital with complaint of febrile illness and altered mental status changes. Patient's is at bedside reports that patient was confused this a.m. and had a high fever. Patient was recently admitted at [facility] in which they cleaned out left knee incision approximate 2 weeks ago. Currently wound VAC is in place. 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 Patient reports that he follows with Dr. Paul and receives IV antibiotics through office. Additional medical history includes empyema/parapneumonic effusion in June 2018 in which he was treated 6 weeks with Vanco and pigtail placement was later removed. Additional medical history includes CAD, pancreatitis, rheumatoid arthritis which she is maintained on prednisone, GERD and hyperlipidemia. Influenza negative. UA negative. Chest x-ray completed showing pulmonary venous congestion with out overt failure. Pleural parenchymal density right lung bases likely chronic in nature. Patient does report he had a cough. Dr. Paul for infectious disease and pulmonary services have been consulted. EKG completed showing sinus tachycardia. At this time patient is sleepy but will wake up and answer questions. Patient denies any recent diarrhea or pain in abdomen. Patient denies nausea vomiting diarrhea. Patient denies chest pain or shortness of breath. Patient denies any burning with urination. On 01/20/2019. Patient is much more alert and oriented today compared to yesterday. Patient is currently resting comfortably in bed. Patient has been afebrile. Patient is currently in the intensive care unit due to having hypotension last night. Patient did not require any pressure support medication. Blood pressure has significantly improved. Patient currently on vancomycin and daptomycin. Blood, urine and spuum cultures have been ordered. Pulmonary and infectious disease is following. At this time patient denies chest pain or shortness breath. Patient denies nausea vomiting or diarrhea. Patient denies any urinary burning or frequency. On 01/21/2019 patient is alert and oriented 3. Patient feels significantly improved. Patient has been afebrile. Patient remains on Vanco and Fortaz for IV antibiotics. At this time patient denies chest pain or shortness of breath. Patient denies nausea vomiting or diarrhea. Patient denies any urinary burning or frequency. Patient's hemoglobin 7.6 this a.m. Patient has received a large amount of fluid due to hypotension. Per nursing staff and patient no signs of active bleeding. Will order for stool for occult blood. Fluids will be cut to 75. Blood pressure has improved. Objective - Vital Signs Vital signs: Vital Signs Temp 98.1 F 01/21/19 05:00 Pulse 86 01/21/19 05:00 Resp 20 01/21/19 05:00 BP 128/72 01/21/19 05:00 Pulse Ox 96 01/21/19 05:00 Intake & Output 01/20/19 01/21/19 01/21/19 18:59 06:59 18:59 Intake Total 2848 250 240 Output Total 226 350 225 Balance 2622 -100 15 Weight 88 kg Intake: Intake, IV Titration 1648 Amount Sodium Chloride 0.9% 1, 1050 000 ml @ 150 mls/hr IV . Q6H40M [facility] Rx#:[id number] Vancomycin 1,750 mg In 498 Sodium Chloride 0.9% 500 ml 500 ml @ 167 mls/hr IVPB Q12H [facility] Rx#: [id number] cefTAZidime 2 gm In 100 Sodium Chloride 0.9% 100 ml @ 100 mls/hr IVPB Q8H [facility] Rx#:[id number] Oral 1200 250 240 Output: Urine 225 350 225 Stool 1 Other: Voiding Method Toilet Urinal # Voids 1 1 # Bowel Movements 0 - Exam Head normocephalic Neck supple Lungs clear to auscultation bilaterally no wheezing or crackles Heart regular rate and rhythm S1-S2, no rub or gallop Abdomen is soft nontender nondistended positive bowel sounds no hepatosplenomegaly Extremities no edema. Left leg in a leg immobilizer. Wound closed with lakisha clean dry and intact Neuro alert and orientated to 3 - Labs CBC & Chem 7: 01/21/19 06:49 01/21/19 06:49 Labs: Abnormal Lab Results - Last 24 Hours (Table) 01/20/19 01/20/19 01/20/19 Range/Units 11:46 11:50 12:20 WBC 14.3 H (3.8-10.6) k/uL RBC 3.04 L (4.30-5.90) m/uL Hgb 8.3 L D (13.0-17.5) gm/dL Hct 27.1 L (39.0-53.0) % MCHC 30.7 L (31.0-37.0) g/dL RDW 18.9 H (11.5-15.5) % Plt Count 606 H D (150-450) k/uL Neutrophils # 12.2 H (1.3-7.7) k/uL Chloride 111 H (98-107) mmol/L Creatinine 0.60 L (0.66-1.25) mg/dL Glucose 125 H (74-99) mg/dL POC Glucose (mg/dL) 150 H (75-99) mg/dL Calcium 8.0 L (8.4-10.2) mg/dL Total Bilirubin 0.1 L (0.2-1.3) mg/dL Total Protein 5.0 L (6.3-8.2) g/dL Albumin 2.2 L (3.5-5.0) g/dL 01/20/19 01/20/19 01/21/19 Range/Units 16:43 20:14 06:49 WBC (3.8-10.6) k/uL RBC 2.80 L (4.30-5.90) m/uL Hgb 7.6 L (13.0-17.5) gm/dL Hct 25.1 L (39.0-53.0) % MCHC 30.2 L (31.0-37.0) g/dL RDW 18.5 H (11.5-15.5) % Plt Count 579 H (150-450) k/uL Neutrophils # 8.7 H (1.3-7.7) k/uL Chloride (98-107) mmol/L Creatinine (0.66-1.25) mg/dL Glucose (74-99) mg/dL POC Glucose (mg/dL) 161 H 166 H (75-99) mg/dL Calcium (8.4-10.2) mg/dL Total Bilirubin (0.2-1.3) mg/dL Total Protein (6.3-8.2) g/dL Albumin (3.5-5.0) g/dL 01/21/19 01/21/19 Range/Units 06:49 07:10 WBC (3.8-10.6) k/uL RBC (4.30-5.90) m/uL Hgb (13.0-17.5) gm/dL Hct (39.0-53.0) % MCHC (31.0-37.0) g/dL RDW (11.5-15.5) % Plt Count (150-450) k/uL Neutrophils # (1.3-7.7) k/uL Chloride 114 H (98-107) mmol/L Creatinine 0.61 L (0.66-1.25) mg/dL Glucose 124 H (74-99) mg/dL POC Glucose (mg/dL) 151 H (75-99) mg/dL Calcium 7.8 L (8.4-10.2) mg/dL Total Bilirubin (0.2-1.3) mg/dL Total Protein 5.1 L (6.3-8.2) g/dL Albumin 2.2 L (3.5-5.0) g/dL Microbiology - Last 24 Hours (Table) 01/19/19 10:04 Blood Culture - Preliminary Blood No Growth after 24 hours Assessment and Plan Assessment: 1. Acute septic shock with Febrile illness likely related to septic left knee.. Fever of 102.1. Influenza negative. UA negative. Lactic acid 1.4. Blood urine and sputum cultures ordered. Patient currently on Vancomycin and Fortaz for IV antibiotics. She has been afebrile. Cultures pending 2. 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 Patient reports that he's been following at [facility] in which approximately 2 weeks ago he had left the incision cleaned out and wound VAC placed. Wound is now closed with lakisha clean dry and intact 3. History of parapneumonic effusion. I. In June 2018 patient was treated with 6 weeks of vancomycin and pigtail placement. Per pulmonary no evidence of acute pulmonary infection. No evidence of pneumonia. Chest x-ray reviewed showing chronic pleural parenchymal changes 4. History of coronary artery disease 5. History of pancreatitis 6. History of rheumatoid arthritis. Patient is maintained on prednisone 10 mg 3 times a day 7. History of hyperlipidemia 8. History of GERD 9. Hypotension. Patient initially admitted to the intensive care unit for close monitoring. Blood pressure has improved. Patient did not require any pressure support medication. Resolved. Fluids will be decreased to 75 10. Anemia. Will order iron studies and stool for occult blood. No signs of active bleeding at this time. Patient did receive large amounts of IV fluid for hypotension. This issue has resolved. Fluids will be cut 75 DVT prophylaxis heparin. GI prophylaxis Protonix. Infectious disease and pulmonary services are following Patient currently on vancomycin and Fortaz IV antibiotics. Patient currently solucortef 100 mg every 8 hours per pulmonary I performed an examination of the patient and discussed their management with the Nurse Practitioner. I have reviewed the Nurse Practitioner's notes and agree with the documented findings and plan of care
[2019-01-21 12:39] LABS: Glucose,Whole Blood 150 mg/dL (75-99)
--- NOTE | 2019-01-21 13:13 | CT ---
EXAMINATION TYPE: CT brain wo con DATE OF EXAM: 01/21/2019 COMPARISON: None INDICATION: altered mental status, dizzy DLP: 999.8 mGycm, Automated exposure control for dose reduction was used. CONTRAST: None CT of the brain is performed utilizing 3 mm thick sections through the posterior fossa and 3 mm thick sections through the remaining calvarium. Study is performed within 24 hours of arrival to the hosp ital. No abnormal hyperdensity is present to suggest an acute intracranial hemorrhage. No mass lesion is evident. No acute infarcts are evident. Ventricles and sulci are appropriate for the patient age. Paranasal sinuses and mastoid air cells within the [id number] are clear. IMPRESSIONS: 1. No acute intracranial process.
--- NOTE | 2019-01-21 13:52 | P.PN ---
Subjective Progress Note Date: 01/21/19 Principal diagnosis: Acute septic shock possibly related to septic left knee This is 73-year-old white male patient of Dr. Montemayor, with history of MRSA infection in the left knee following joint replacement, who underwent arthroplasty of the left knee with removal of hardware and placement of a spacer 2, most recently 2 weeks ago at the [facility] in [place]. Patient had a wound VAC placed on his left knee, and cultures of left knee drainage were positive for MRSA. Patient was an outpatient infusions of daptomycin, managed by Dr. Paul. He is getting daily IV antibiotics, he has a visiting nurse coming to his house 3-4 times weekly. Patient has a history of rheumatoid arthritis, was on suppressive therapy with methotrexate, currently on prednisone 10 mg 3 times a day. His original surgery of left total knee arthroplasty was over 15 years ago. In May 2018 patient was hospitalized with MRSA bacteremia, left knee septic arthritis with cultures positive for MRSA, and at that time he underwent left knee incision and drainage and removal of the left knee components and insertion of antibiotic spacers. He also had left shoulder pain he was felt to have synovitis of the left shoulder without active infection, left shoulder synovial fluid cultures were negative. Patient did require intubation and mechanical ventilation during that admission for acute exacerbation of congestive heart failure. We saw the patient in June 2018, for a right lower lung consolidation, a parapneumonic effusion, and there was a concern for empyema, patient had a pigtail chest tube catheter placed on the right, but the pleural fluid cultures were negative. The effusion was loculated, patient did receive TPA infusions, he was treated but does Zosyn and vancomycin, improved, and was discharged to [facility] for rehabilitation. Medical history includes coronary artery disease with previous stent placement, COPD with former history of smoking, 40+ pack years, GERD, severe rheumatoid arthritis. Follows with Dr. Guerrero for primary care services. On 01/19/2019 patient was brought in by ambulance to the emergency department, after being noted to be lethargic, confused, babbling, not making any sense. Patient was having shaking chills, fever, and was having increased pain in his left knee. He has his for some pain medications and for his anxiety, and his called the EMS and brought into the hospital for further evaluation. He was well last night. She stated he did sound congested, he was coughing, but not bringing up any sputum, he denied any chest pain. On presentation to the emergency department patient was febrile with a temp of 102.1F, hypotensive with systolic in the 80s, tachycardic with a heart rate in the 120s BPM. He was given a total of 2 L of IV fluids, maintenance IV fluids infusing at rate of 150 ML per hour, labs showed white blood cell count of 7.9, hemoglobin of 14.4, electrolytes were within normal limits, normal renal profile, glucose was 234, lactic acid was 1.4, urinalysis was negative, fluids a screen was negative. Chest x-ray was completed and showed some pulmonary venous congestion without overt heart failure, and pleural parenchymal density in the right lung base could be chronic in nature. Right arm PICC line is in place. We were consulted in regards to sepsis, and the possibility of underlying pneumonia. My evaluation patient is resting on the gurney, he is lethargic, but arousable to verbal stimuli, his is present, and providing much of the history, patient denies any pulmonary complaints at this time, no chest pain, no shortness of breath, no cough or congestion. His lung sounds are diminished at the bases, with minimal crackles. No significant wheezing or rhonchi. ID Service has been consulted. Blood urine and sputum cultures have been ordered and sent. The blood pressure is still in the 80s over 50s, patient less tachycardic, sinus rhythm on the monitor with a rate of 97 BPM, left knee is quite warm to touch, VAC is on, but the batteries had run out, and the suction is currently off, there is black foam present left knee wound. Mild swelling in the left lower extremity, immobilizers in place. On 01/20/2019 patient seen again in follow-up in the intensive care unit, he is much more awake on today's exam, he is oriented 3, he is appropriate, he denies any specific complaints, no shortness of breath, chest pain, patient was febrile on presentation with a temp of 102.1F, he has been afebrile since, afebrile overnight, hemodynamically patient is more stable, no vasopressor support, IV 0.9 normal saline at a rate of 150 ML per hour, patient did receive IV fluid boluses a total of 2 L in fluid boluses, we restarted agents stress doses of hydrocortisone, antibiotic coverage in the form of Fortaz and vancomycin. Chest x-ray showed chronic pleural parenchymal changes related to his history of COPD, bronchiectasis, pulmonary fibrosis at the right base related to his history of pneumonia. Blood and urine cultures have been sent and are negative. Influenza screen was negative. Urinalysis was negative. A pulmonary complaints, no cough or congestion, no wheezing, some crackles at the bilateral bases likely related to underlying history of pulmonary fibrosis. No phlegm production, no evidence of active pulmonary disease, no pulmonary infection. Today's labs have been reviewed, BNP was done, sodium is 140, potassium is 4.0, chloride is 111, BUN is 15, creatinine is 0.60. Patient is voiding per urinal. Left knee wound VAC has been removed, incision is clean dry and intact, no drainage, lakisha are intact, covered with a sterile dressing. Left knee is less warm to touch compared to yesterday's exam On 01/21/2019 patient seen in follow-up on medical surgical floor. He is sitting up on the Sudafed, he is awake and alert, in no acute distress, no complaints of shortness of breath, no chest pain, the left knee incision is sherry n dry and intact, there is no drainage, lakisha are intact, covered with the dressing, and the dressing has no evidence of drainage on it the left knee is slightly warm, but not red, patient denies any pain in the left knee. Mentation is completely back to normal, however his daughter is at the bedside and she is concerned about some subtle changes in patient's mentation that the family had noted in the last several months, changes in mentation are nonspecific, patient is a bit more forgetful than he used to be. Brain CT to rule out possibility of a CVA. Otherwise patient's mentation is appropriate, he is oriented 3, no evidence of neurological deficits, no speech slurring, no motor weakness, no sensory deficits. No fever or chills, blood and urine cultures showed no growth. Patient is on a combination of vancomycin and ceftazidime. Hemodynamically stable, he did not require any vasopressor support. Room air pulse ox is 96%, lungs are positive for some scattered end expiratory wheezes, bibasilar crackles. No cough or chest congestion. Today's labs have been reviewed, white blood cell count is 10.3, hemoglobin 7.6, electrolytes are unremarkable, BUN is 11 creatinine 0.61. Objective - Vital Signs Vital signs: Vital Signs Temp 98.1 F 01/21/19 05:00 Pulse 86 01/21/19 05:00 Resp 20 01/21/19 05:00 BP 128/72 01/21/19 05:00 Pulse Ox 96 01/21/19 05:00 Intake & Output 01/20/19 01/21/19 01/21/19 18:59 06:59 18:59 Intake Total 2848 250 240 Output Total 226 350 225 Balance 2622 -100 15 Weight 88 kg Intake: Intake, IV Titration 1648 Amount Sodium Chloride 0.9% 1, 1050 000 ml @ 150 mls/hr IV . Q6H40M [facility] Rx#:[id number] Vancomycin 1,750 mg In 498 Sodium Chloride 0.9% 500 ml 500 ml @ 167 mls/hr IVPB Q12H [facility] Rx#: [id number] cefTAZidime 2 gm In 100 Sodium Chloride 0.9% 100 ml @ 100 mls/hr IVPB Q8H [facility] Rx#:[id number] Oral 1200 250 240 Output: Urine 225 350 225 Stool 1 Other: Voiding Method Toilet Urinal # Voids 1 1 # Bowel Movements 0 - Exam GENERAL EXAM: Awake and alert, pleasant 73-year-old male, comfortable in no apparent distress. HEAD: Normocephalic/atraumatic. EYES: Normal reaction of pupils, equal size. Conjunctiva pink, sclera white. NOSE: Clear with pink turbinates. THROAT: No erythema or exudates. NECK: No masses, no JVD, no thyroid enlargement, no adenopathy. CHEST: No chest wall deformity. Symmetrical expansion. LUNGS: Equal air entry with a few expiratory wheezes, and bibasilar crackles CVS: Regular rate and rhythm, normal S1 and S2, no gallops, no murmurs, no rubs ABDOMEN: Soft, nontender. No hepatosplenomegaly, normal bowel sounds, no guarding or rigidity. EXTREMITIES: No clubbing, 1+ edema and lower extremity, pedal and pretibial, left knee is in the immobilizer, wound VAC has been removed midline left knee incision clean dry and intact, lakisha are intact, no drainage. Less warm to touch on today's exam MUSCULOSKELETAL: Muscle strength and tone normal. SPINE: No scoliosis or deformity SKIN: No rashes CENTRAL NERVOUS SYSTEM: Tired but arousable and oriented -3. No focal deficits, tone is normal in all 4 extremities. - Labs CBC & Chem 7: 01/21/19 06:49 01/21/19 06:49 Labs: Abnormal Lab Results - Last 24 Hours (Table) 01/20/19 01/20/19 01/21/19 Range/Units 16:43 20:14 06:49 RBC 2.80 L (4.30-5.90) m/uL Hgb 7.6 L (13.0-17.5) gm/dL Hct 25.1 L (39.0-53.0) % MCHC 30.2 L (31.0-37.0) g/dL RDW 18.5 H (11.5-15.5) % Plt Count 579 H (150-450) k/uL Neutrophils # 8.7 H (1.3-7.7) k/uL Chloride (98-107) mmol/L Creatinine (0.66-1.25) mg/dL Glucose (74-99) mg/dL POC Glucose (mg/dL) 161 H 166 H (75-99) mg/dL Calcium (8.4-10.2) mg/dL Total Protein (6.3-8.2) g/dL Albumin (3.5-5.0) g/dL 01/21/19 01/21/19 01/21/19 Range/Units 06:49 07:10 12:23 RBC (4.30-5.90) m/uL Hgb (13.0-17.5) gm/dL Hct (39.0-53.0) % MCHC (31.0-37.0) g/dL RDW (11.5-15.5) % Plt Count (150-450) k/uL Neutrophils # (1.3-7.7) k/uL Chloride 114 H (98-107) mmol/L Creatinine 0.61 L (0.66-1.25) mg/dL Glucose 124 H (74-99) mg/dL POC Glucose (mg/dL) 151 H 150 H (75-99) mg/dL Calcium 7.8 L (8.4-10.2) mg/dL Total Protein 5.1 L (6.3-8.2) g/dL Albumin 2.2 L (3.5-5.0) g/dL Microbiology - Last 24 Hours (Table) 01/19/19 10:04 Blood Culture - Preliminary Blood No Growth after 48 hours 01/19/19 10:02 Urine Culture - Final Urine,Voided Assessment and Plan Plan: Assessment: #1. Hypotension, fever, possiblilities include acute SIRS vs acute septic shock , possibly related to septic left knee, with recent history of left knee spacer replacement at [facility] and [place]. Most recent left knee wound culture was positive for MRSA, patient has had persistent left knee MRSA infection since May 2018 with revision of the left knee spacer placements. Has been on daptomycin infusions on an outpatient basis. No evidence of active pulmonary infection, no evidence of pneumonia. Chest X-ray showed a chronic pleural parenchymal changes #2. Altered mentation, fever, shaking chills related to above, resolved, and on today's exam on 01/20/2019 is mentation has improved, completely back to baseline, patient is awake and alert oriented 3, afebrile. #3. Status post left knee arthroplasty, with revision, and MRSA infection, and placement of antibiotic spacers 2 #4. History of parapneumonic effusion on the right in June 2018, requiring pigtail chest tube insertion, TPA infusions, and pleural fluid cultures were negative #5. Chronic pleural parenchymal changes, paraseptal emphysema, bronchiectasis, and chronic fibrotic changes in the right base related to previous history of pneumonia. Doubt current pneumonia at this time #6. History of coronary artery disease with previous stenting #7. History of rheumatoid arthritis, previously on methotrexate, currently on oral prednisone #8. Hyperlipidemia #9. GERD Plan: Continue current plan of treatment, will add DuoNeb nebulized treatments, will cut back to IV fluids to 75 ML per hour, patient had quite rapid recovery from his acute febrile illness, making the sepsis diagnosis questionable. Cultures are negative thus far. We'll obtain brain CT without contrast to rule out any underlying intracranial abnormality. Patient is doing well, stable, ID service is on the case, managing the antibiotics. Increase activity as tolerated. I performed a history & physical examination of the patient and discussed their management with my nurse practitioner, Yoselin Wiggins. I reviewed the nurse practitioner's note and agree with the documented findings and plan of care. Lung sounds are positive for clear breath sounds, diminished at the bases. The findings and the impression was discussed with the patient. I attest to the documentation by the nurse practitioner. Time with Patient: Less than 30
[2019-01-21] MEDS: IPRATROPIUM-ALBUTEROL 3 ML NEB INHALATION SCH ×2 (15:52→20:30)
[2019-01-21 17:29] LABS: Glucose,Whole Blood 184 mg/dL (75-99)
[2019-01-21 20:44] LABS: Glucose,Whole Blood 366 mg/dL (75-99)
[2019-01-21] MEDS: IPRATROPIUM-ALBUTEROL 3 ML NEB INHALATION PRN (23:34)
--- NOTE | 2019-01-21 23:51 | P.PN ---
Subjective Progress Note Date: 01/21/19 73-year-old male infectious disease service from his recent hospitalization which point in time he developed significant infection. Patient has a long-standing history of rheumatoid arthritis for about 25 years under the care of rheumatology with prednisone and infusions of methotrexate being done. Given the multiple infections methotrexate was placed on hold. On the last admission the patient evidence of extensive swelling to his left leg and he was left shoulder and he also had evidence of high-grade fevers and sepsis with leukocytosis. Purulent fluid from the left knee and left shoulder were found and the patient underwent surgical incision and drainage of both the sites. MRSA was isolated the patient was sent to rehab on intravenous antibiotic therapy with vancomycin. The patient was treated with the many week course of intravenous antibiotic therapy with eventual improvement of both of the sites. He did have a hospitalization with a large pleural effusion that was drained that was culture negative however the patient was on antibiotic therapy with vancomycin. Patient presented in September 2018 for elective revision of the left knee. was been having some ongoing pain but the effusion was improved. He's been followed by his central office equipment installer In the operating room the patient underwent the incision and drainage and exploration of the knee. At that time a purulent fluid collection was encountered which was sent for culture. The knee was lavaged and there was an exchange of the antibiotic spacer performed.he was then treated with an extensive course of antibiotic therapy and referred back to his prior orthopedic surgeon. He recently was taken to the operating room and another debridement and exchange of antibiotic spacer occurred with ongoing infection. He is now being followed in the outpatient clinic for his outpatient intravenous antibiotic therapy. He was doing well but the patient's relates that at 6:30this morning he was up to start his day and shortlythereafter he became confused and much more ill. Eventually was brought to the emergency center and was found to have some mild confusion and hypotension and tachycardia. He subsequently has been admitted in the intensive care unit with concerns to sepsis. The patient was evaluated in the emergency center. Wound VAC was removed and a dry dressing was put into place of the surgical site.the patient is arousable, recognizes the observer but is not conversational and rapidly falls back to sleep. 01/20/2019 patient is feeling considerably better today. Hypotension is resolved. Output is adequate. Pain to the knee is ongoing related to the recent surgical intervention. He is still with some wheezing and cough but denies fractures or rub. Hours not had much activity. No new areas of significant pain at the noted. 01/21/2019Patient has had some improvement of his status in that he is more awake and alert but still not at baseline. Computed tomography scan of the brain is been performed to ensure that no stroke was occurred since his last evaluation. Dressing is dry no need for wound VAC at this time. With antibiotic therapy there has been improvement. Objective - Vital Signs Vital signs: Vital Signs Temp 98.7 F 01/21/19 22:33 Pulse 95 01/21/19 23:46 Resp 16 01/21/19 22:33 BP 156/85 01/21/19 22:33 Pulse Ox 99 01/21/19 22:33 Intake & Output 01/21/19 01/21/19 01/22/19 06:59 18:59 06:59 Intake Total 250 940 Output Total 350 225 Balance -100 715 Intake: IV 700 Sodium Chloride 0.9% 1, 600 000 ml @ 75 mls/hr IV . [id number] SURYA Rx#:[id number] cefTAZidime 2 gm In 100 Sodium Chloride 0.9% 100 ml @ 100 mls/hr IVPB Q8H SURYA Rx#:[id number] Oral 250 240 Output: Urine 350 225 Other: Voiding Method Urinal Urinal Urinal # Voids 1 # Bowel Movements 0 - Exam 73-year-old male lying in bed now awake alert complains of some knee pain HEENT: Anicteric conjunctiva are pink and moist nasal mucosa grossly intact without significant lesions, there is no thrush. Neck: The neck is supple without significant lymphadenopathy or thyromegaly. Lungs: symmetrical air entry with expiratory wheezes no salty bronchial sounds on dullness or egophony Heart: tachycardic but with regular rhythm with an audible S1-S2, no S3 no S4. There is no significant murmur click or rub, PMI was nondisplaced. Abdomen: mildly obese,Positive bowel sounds soft and nontender without palpable masses or organomegaly. There was no guarding or rebound. Extremities: Tthe upper and lower extremities have the profound deformity from his rheumatoid arthritis. The left knee is evaluated. There is some warmth and swelling due to the recent surgical intervention, the lakisha are in place no drainage is noted. Dry dressing is place. Neuro: patient is awake alert oriented to person place and time and does not have acute gross focal sensory motor deficits - Labs CBC & Chem 7: 01/21/19 06:49 01/21/19 06:49 Labs: Abnormal Lab Results - Last 24 Hours (Table) 01/21/19 01/21/19 01/21/19 Range/Units 06:49 06:49 07:10 RBC 2.80 L (4.30-5.90) m/uL Hgb 7.6 L (13.0-17.5) gm/dL Hct 25.1 L (39.0-53.0) % MCHC 30.2 L (31.0-37.0) g/dL RDW 18.5 H (11.5-15.5) % Plt Count 579 H (150-450) k/uL Neutrophils # 8.7 H (1.3-7.7) k/uL Chloride 114 H (98-107) mmol/L Creatinine 0.61 L (0.66-1.25) mg/dL Glucose 124 H (74-99) mg/dL POC Glucose (mg/dL) 151 H (75-99) mg/dL Calcium 7.8 L (8.4-10.2) mg/dL Total Protein 5.1 L (6.3-8.2) g/dL Albumin 2.2 L (3.5-5.0) g/dL 01/21/19 01/21/19 01/21/19 Range/Units 12:23 17:27 20:40 RBC (4.30-5.90) m/uL Hgb (13.0-17.5) gm/dL Hct (39.0-53.0) % MCHC (31.0-37.0) g/dL RDW (11.5-15.5) % Plt Count (150-450) k/uL Neutrophils # (1.3-7.7) k/uL Chloride (98-107) mmol/L Creatinine (0.66-1.25) mg/dL Glucose (74-99) mg/dL POC Glucose (mg/dL) 150 H 184 H 366 H (75-99) mg/dL Calcium (8.4-10.2) mg/dL Total Protein (6.3-8.2) g/dL Albumin (3.5-5.0) g/dL Microbiology - Last 24 Hours (Table) 01/19/19 10:04 Blood Culture - Preliminary Blood No Growth after 48 hours 01/19/19 10:02 Urine Culture - Final Urine,Voided Laboratory Results WBC 10.3 k/uL (3.8-10.6) 01/21/19 06:49 RBC 2.80 m/uL (4.30-5.90) L 01/21/19 06:49 Hgb 7.6 gm/dL (13.0-17.5) L 01/21/19 06:49 Hct 25.1 % (39.0-53.0) L 01/21/19 06:49 MCV 89.5 fL (80.0-100.0) 01/21/19 06:49 MCH 27.1 pg (25.0-35.0) 01/21/19 06:49 MCHC 30.2 g/dL (31.0-37.0) L 01/21/19 06:49 RDW 18.5 % (11.5-15.5) H 01/21/19 06:49 Plt Count 579 k/uL (150-450) H 01/21/19 06:49 Neutrophils % 84 % 01/21/19 06:49 Lymphocytes % 12 % 01/21/19 06:49 Monocytes % 2 % 01/21/19 06:49 Eosinophils % 1 % 01/21/19 06:49 Basophils % 0 % 01/21/19 06:49 Neutrophils # 8.7 k/uL (1.3-7.7) H 01/21/19 06:49 Lymphocytes # 1.2 k/uL (1.0-4.8) 01/21/19 06:49 Monocytes # 0.2 k/uL (0-1.0) 01/21/19 06:49 Eosinophils # 0.1 k/uL (0-0.7) 01/21/19 06:49 Basophils # 0.0 k/uL (0-0.2) 01/21/19 06:49 Hypochromasia Marked 01/21/19 06:49 Anisocytosis Slight 01/21/19 06:49 Sodium 141 mmol/L (137-145) 01/21/19 06:49 Potassium 3.9 mmol/L (3.5-5.1) 01/21/19 06:49 Chloride 114 mmol/L (98-107) H 01/21/19 06:49 Carbon Dioxide 24 mmol/L (22-30) 01/21/19 06:49 Anion Gap 3 mmol/L 01/21/19 06:49 BUN 11 mg/dL (9-20) 01/21/19 06:49 Creatinine 0.61 mg/dL (0.66-1.25) L 01/21/19 06:49 Est GFR (CKD-EPI)AfAm >90 (>60 ml/min/1.73 sqM) 01/21/19 06:49 Est GFR (CKD-EPI)NonAf >90 (>60 ml/min/1.73 sqM) 01/21/19 06:49 Glucose 124 mg/dL (74-99) H 01/21/19 06:49 POC Glucose (mg/dL) 366 mg/dL (75-99) H 01/21/19 20:40 POC Glu Web Content Developer ID Jana Willson 01/21/19 20:[address] Glu mg/dL 114 01/20/19 12:20 Hemoglobin A1c 5.6 % (4.0-6.0) 01/20/19 12:20 Plasma Lactic Acid Harsh 1.4 mmol/L (0.7-2.0) 01/19/19 10:04 Calcium 7.8 mg/dL (8.4-10.2) L 01/21/19 06:49 Phosphorus 3.4 mg/dL (2.5-4.5) 01/20/19 11:50 Magnesium 1.8 mg/dL (1.6-2.3) 01/20/19 11:50 Total Bilirubin 0.2 mg/dL (0.2-1.3) 01/21/19 06:49 AST 19 U/L (17-59) 01/21/19 06:49 ALT 34 U/L (21-72) 01/21/19 06:49 Alkaline Phosphatase 117 U/L (38-126) 01/21/19 06:49 Troponin I <0.012 ng/mL (0.000-0.034) 01/19/19 10:04 NT-Pro-B Natriuret Pep 53 pg/mL 01/19/19 10:08 Total Protein 5.1 g/dL (6.3-8.2) L 01/21/19 06:49 Albumin 2.2 g/dL (3.5-5.0) L 01/21/19 06:49 Urine Color Light Yellow 01/19/19 10:04 Urine Appearance Clear (Clear) 01/19/19 10:04 Urine pH 7.0 (5.0-8.0) 01/19/19 10:04 Ur Specific [place] 1.017 (1.001-1.035) 01/19/19 10:04 Urine Protein Negative (Negative) 01/19/19 10:04 Urine Glucose (UA) Negative (Negative) 01/19/19 10:04 Urine Ketones Negative (Negative) 01/19/19 10:04 Urine Blood Negative (Negative) 01/19/19 10:04 Urine Nitrite Negative (Negative) 01/19/19 10:04 Urine Bilirubin Negative (Negative) 01/19/19 10:04 Urine Urobilinogen <2.0 mg/dL (<2.0) 01/19/19 10:04 Ur Leukocyte Esterase Negative (Negative) 01/19/19 10:04 Vancomycin Trough 11.3 ug/mL 01/21/19 06:49 Random Vancomycin <5.0 ug/mL 01/19/19 10:04 Influenza Type A RNA Not Detected (Not Detectd) 01/19/19 10:25 Influenza Type B (PCR) Not Detected (Not Detectd) 01/19/19 10:25 Microbiology 01/19/19 10:04 Blood Blood Culture - Preliminary No Growth after 48 hours 01/19/19 10:02 Urine,Voided Urine Culture - Final Assessment and Plan (1) Hypotensive episode Current Visit: Yes Status: Acute Code(s): I95.9 - HYPOTENSION, UNSPECIFIED SNOMED Code(s): 36236447 (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 The patient awoke this morning was relatively normal rapidly became lethargic with some confusion. Constantly he was brought to the emergency center was without evidence of fever, tachycardia and hypotension. Is now debridement in the intensive care unit for treatment of his sepsis. Given the patient does have some pulmonary symptoms or as concerns this is a potential second is source of infection other than the left total knee arthroplasty that was infected in counseling antibiotic therapy has been altered from daptomycin to vancomycin. Gram-negative coverage is adequate with Fortaz. Stress dose of hydrocortisone was given and the case is discussed with pulmonary critical care. Cultures are in process. Had yet to be placed on vasoactive agents and is receiving fluid resuscitation. 01/20/2019 patient feeling better today. Much more awake and alert and interactive. Has no new acute gross focal sensory motor deficits. Fever has improved. Patient appears to have an underlying pulmonary infection and is responding well to current antibiotic therapy of vancomycin and ceftazidime. Cultures are in process. He was seems to have responded well to a stress dose of hydrocortisone also. Continue ongoing supportive care. Cultures were help determine the course of antibiotic therapy at discharge. 01/21/2019 patient has had some further improvement. He is less short of breath still requiring some respiratory treatments. His pain is under modestly good control. He is afebrile today. Seems to responding well to the current course of therapy which is of vancomycin and ceftazidime. This combination will not be possible for utilization in the office. We'll likely transition back to daptomycin to complete the treatment of the infection of the knee and add in Rocephin to complete the treatment of pneumonia at the time of his discharge. Current Visit: No Status: Acute Code(s): T84.54XA - INFECT/INFLM REACTION DUE TO INTERNAL LEFT KNEE PROSTH, INIT; Z96.652 - PRESENCE OF LEFT ARTIFICIAL KNEE JOINT SNOMED Code(s): 267160697
[2019-01-22] MEDS ORDERED: FUROSEMIDE 10 MG/ML 2 ML VIAL IV ONE ×2 (00:04→01:37)
[2019-01-22 00:17] LABS: ABG Base Excess -0.1 mmol/L; ABG HCO3 24 mmol/L (21-25); ABG Oxygen Saturation 98.7 % (94-97); ABG PCO2 33 mmHg (35-45); ABG PH 7.46 (7.35-7.45); ABG PO2 98 mmHg (83-108); ABG TCO2 25 mmol/L (19-24)
[2019-01-22 01:07] LABS: ALT 38 U/L (21-72); AST 22 U/L (17-59); Albumin 2.9 g/dL (3.5-5.0); Alkaline Phosphatase 111 U/L (38-126); Anion Gap 7 mmol/L; Blood Urea Nitrogen 9 mg/dL (9-20); Calcium 8.5 mg/dL (8.4-10.2); Carbon Dioxide 24 mmol/L (22-30); Chloride 111 mmol/L (98-107); Glucose 99 mg/dL (74-99); Potassium 3.4 mmol/L (3.5-5.1); Sodium 142 mmol/L (137-145); Total Bilirubin 0.2 mg/dL (0.2-1.3); Total Protein 6.1 g/dL (6.3-8.2)
[2019-01-22 01:15] LABS: Anisocytosis Slight; HCT 27.2 % (39.0-53.0); HGB 8.3 gm/dL (13.0-17.5); Hypochromasia Marked; MCH 27.4 pg (25.0-35.0); MCHC 30.7 g/dL (31.0-37.0); MCV 89.2 fL (80.0-100.0); Mean Platelet Volume 7.7; Platelet Count 578 k/uL (150-450); RBC 3.05 m/uL (4.30-5.90); RDW 18.2 % (11.5-15.5); WBC 10.6 k/uL (3.8-10.6)
[2019-01-22 01:51] LABS: Lymphocytes # (M) 0.53 k/uL (1.0-4.8); Myelocytes # (M) 0.11 k/uL (0); Myelocytes % 1 %; Neutrophils # (M) 9.96 k/uL (1.3-7.7); Neutrophils % (M) 94 %; Nucleated Red Blood Cells 0 /100 WBC (0-0); RBC Fragments Present; Total Cells Counted 200
--- NOTE | 2019-01-22 02:25 | XR ---
EXAM: XR Chest, 1 View CLINICAL HISTORY: Shortness of breath TECHNIQUE: Frontal view of the chest. COMPARISON: Chest x-ray dated 01/19/2019 FINDINGS: Lungs: Diffuse airspace opacities which may represent pulmonary vascular congestion versus an infectious process. Pleural space: Unremarkable. No pneumothorax. Heart: Heart is enlarged. Mediastinum: Unremarkable. Bones/joints: Right shoulder arthroplasty. No acute fracture. Tubes, lines and devices: Right upper extremity PICC with tip in the distal SVC. IMPRESSION: Diffuse airspace opacities which may represent pulmonary vascular congestion versus an infectious process.
[2019-01-22] MEDS: ONDANSETRON 4 MG/2 ML VIAL IVP PRN ×2 (02:32→08:42)
[2019-01-22] MEDS: IPRATROPIUM-ALBUTEROL 3 ML NEB INHALATION PRN (03:38)
[2019-01-22] MEDS ORDERED: Potassium Replacement Protocol 1 EACH MISC MISCELLANE PRN (05:03)
[2019-01-22] MEDS: VANCOMYCIN 1,750 MG in SODIUM CHLORIDE 0.9% 500 ML 500 ML IVPB SCH (05:16)
[2019-01-22 06:01] LABS: Anisocytosis Slight; Basophils % (A) 0 %; Eosinophils % (A) 0 %; HCT 28.3 % (39.0-53.0); HGB 8.4 gm/dL (13.0-17.5); Hypochromasia Moderate; Lymphocytes % (A) 9 %; MCH 26.1 pg (25.0-35.0); MCHC 29.6 g/dL (31.0-37.0); MCV 88.3 fL (80.0-100.0); Monocytes # (A) 0.3 k/uL (0-1.0); Monocytes % (A) 3 %; Neutrophils # (A) 9.6 k/uL (1.3-7.7); Neutrophils % (A) 88 %; Platelet Count 640 k/uL (150-450); RBC 3.21 m/uL (4.30-5.90); RDW 18.5 % (11.5-15.5)
[2019-01-22] MEDS: HYDROmorphone 1 MG/ML 1 ML SYRINGE IVP PRN ×5 (06:08→17:53)
[2019-01-22] MEDS: POTASSIUM CHLORIDE ER 20 MEQ TAB.ER PO SCH ×6 (06:10→14:28)
[2019-01-22 06:13] LABS: ALT 33 U/L (21-72); AST 20 U/L (17-59); Albumin 2.9 g/dL (3.5-5.0); Alkaline Phosphatase 105 U/L (38-126); Anion Gap 7 mmol/L; Blood Urea Nitrogen 9 mg/dL (9-20); Calcium 8.4 mg/dL (8.4-10.2); Carbon Dioxide 30 mmol/L (22-30); Chloride 105 mmol/L (98-107); Glucose 118 mg/dL (74-99); Sodium 142 mmol/L (137-145); Total Bilirubin 0.2 mg/dL (0.2-1.3)
[2019-01-22 07:18] LABS: Glucose,Whole Blood 124 mg/dL (75-99)
[2019-01-22] MEDS: IPRATROPIUM-ALBUTEROL 3 ML NEB INHALATION SCH ×3 (07:18→15:39)
[2019-01-22] MEDS: INSULIN ASPART (NovoLOG) 100 UNIT/ML VIAL SQ SCH ×3 (08:34→17:30)
[2019-01-22] MEDS: hydrOXYzine PAMOATE 25 MG CAP PO SCH ×2 (08:37→13:08)
[2019-01-22] MEDS: HEPARIN SODIUM,PORCINE 5,000 UNIT/ML 1 ML VIAL SQ SCH ×2 (08:38→16:28)
[2019-01-22] MEDS: PANTOPRAZOLE 40 MG TABLET PO SCH (08:38)
[2019-01-22] MEDS: HYDROCORTISONE SUCCINATE 100 MG/2 ML VIAL IV SCH ×2 (08:42→16:28)
--- NOTE | 2019-01-22 09:55 | P.PN ---
Subjective Progress Note Date: 01/22/19 This is a 73-year-old male patient who presented to the hospital with complaint of febrile illness and altered mental status changes. Patient's is at bedside reports that patient was confused this a.m. and had a high fever. Patient was recently admitted at [facility] in which they cleaned out left knee incision approximate 2 weeks ago. Currently wound VAC is in place. 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 Patient reports that he follows with Dr. Paul and receives IV antibiotics through office. Additional medical history includes empyema/parapneumonic effusion in June 2018 in which he was treated 6 weeks with Vanco and pigtail placement was later removed. Additional medical history includes CAD, pancreatitis, rheumatoid arthritis which she is maintained on prednisone, GERD and hyperlipidemia. Influenza negative. UA negative. Chest x-ray completed showing pulmonary venous congestion with out overt failure. Pleural parenchymal density right lung bases likely chronic in nature. Patient does report he had a cough. Dr. Paul for infectious disease and pulmonary services have been consulted. EKG completed showing sinus tachycardia. At this time patient is sleepy but will wake up and answer questions. Patient denies any recent diarrhea or pain in abdomen. Patient denies nausea vomiting diarrhea. Patient denies chest pain or shortness of breath. Patient denies any burning with urination. On 01/20/2019. Patient is much more alert and oriented today compared to yesterday. Patient is currently resting comfortably in bed. Patient has been afebrile. Patient is currently in the intensive care unit due to having hypotension last night. Patient did not require any pressure support medication. Blood pressure has significantly improved. Patient currently on vancomycin and daptomycin. Blood, urine and spuum cultures have been ordered. Pulmonary and infectious disease is following. At this time patient denies chest pain or shortness breath. Patient denies nausea vomiting or diarrhea. Patient denies any urinary burning or frequency. On 01/21/2019 patient is alert and oriented 3. Patient feels significantly improved. Patient has been afebrile. Patient remains on Vanco and Fortaz for IV antibiotics. At this time patient denies chest pain or shortness of breath. Patient denies nausea vomiting or diarrhea. Patient denies any urinary burning or frequency. Patient's hemoglobin 7.6 this a.m. Patient has received a large amount of fluid due to hypotension. Per nursing staff and patient no signs of active bleeding. Will order for stool for occult blood. Fluids will be cut to 75. Blood pressure has improved. On 01/22/2019 patient is having increased pain today. Patient was feeling much improved yesterday but throughout night patient had increased shortness of breath and increased pain. Patient states most pain is into his left knee but also having some abdominal discomfort. Patient did receive IV Lasix during the night. Did discuss with pulmonary nurse practitioner. At this time will order amylase and lipase levels. Also ordered ammonia and abdominal ultrasound. Patient is having some nausea. Patient denies any chest pain. Patient denies any urinary burning or frequency. Objective - Vital Signs Vital signs: Vital Signs Temp 97.8 F 01/22/19 05:00 Pulse 84 01/22/19 07:31 Resp 20 01/22/19 05:00 BP 173/96 01/22/19 05:00 Pulse Ox 100 01/22/19 05:00 Intake & Output 01/21/19 01/22/19 01/22/19 18:59 06:59 18:59 Intake Total 940 500 0 Output Total 225 5400 Balance 715 -4900 0 Intake: IV 700 Sodium Chloride 0.9% 1, 600 000 ml @ 75 mls/hr IV . [id number] SURYA Rx#:[id number] cefTAZidime 2 gm In 100 Sodium Chloride 0.9% 100 ml @ 100 mls/hr IVPB Q8H SURYA Rx#:[id number] Oral 240 500 0 Output: Urine 225 5400 Other: Voiding Method Urinal Incontinent # Voids 4 # Bowel Movements 0 - Exam Head normocephalic Neck supple Lungs clear to auscultation bilaterally no wheezing or crackles Heart regular rate and rhythm S1-S2, no rub or gallop Abdomen is soft nontender nondistended positive bowel sounds no hepatosplenomegaly Extremities no edema. Left leg in a leg immobilizer. Wound closed with lakisha clean dry and intact Neuro alert and orientated to 3 - Labs CBC & Chem 7: 01/22/19 05:38 01/22/19 05:38 Labs: Abnormal Lab Results - Last 24 Hours (Table) 01/21/19 01/21/19 01/21/19 Range/Units 12:23 17:27 20:40 WBC (3.8-10.6) k/uL RBC (4.30-5.90) m/uL Hgb (13.0-17.5) gm/dL Hct (39.0-53.0) % MCHC (31.0-37.0) g/dL RDW (11.5-15.5) % Plt Count (150-450) k/uL Neutrophils # (1.3-7.7) k/uL Neutrophils # (Manual) (1.3-7.7) k/uL Lymphocytes # (Manual) (1.0-4.8) k/uL Myelocytes # (Manual) (0) k/uL ABG pH (7.35-7.45) ABG pCO2 (35-45) mmHg ABG Total CO2 (19-24) mmol/L ABG O2 Saturation (94-97) % Potassium (3.5-5.1) mmol/L Chloride (98-107) mmol/L Creatinine (0.66-1.25) mg/dL Glucose (74-99) mg/dL POC Glucose (mg/dL) 150 H 184 H 366 H (75-99) mg/dL Plasma Lactic Acid Harsh (0.7-2.0) mmol/L Total Protein (6.3-8.2) g/dL Albumin (3.5-5.0) g/dL 01/22/19 01/22/19 01/22/19 Range/Units 00:12 00:44 00:44 WBC (3.8-10.6) k/uL RBC 3.05 L (4.30-5.90) m/uL Hgb 8.3 L (13.0-17.5) gm/dL Hct 27.2 L (39.0-53.0) % MCHC 30.7 L (31.0-37.0) g/dL RDW 18.2 H (11.5-15.5) % Plt Count 578 H (150-450) k/uL Neutrophils # (1.3-7.7) k/uL Neutrophils # (Manual) 9.96 H (1.3-7.7) k/uL Lymphocytes # (Manual) 0.53 L (1.0-4.8) k/uL Myelocytes # (Manual) 0.11 H (0) k/uL ABG pH 7.46 H (7.35-7.45) ABG pCO2 33 L (35-45) mmHg ABG Total CO2 25 H (19-24) mmol/L ABG O2 Saturation 98.7 H (94-97) % Potassium 3.4 L (3.5-5.1) mmol/L Chloride 111 H (98-107) mmol/L Creatinine 0.62 L (0.66-1.25) mg/dL Glucose (74-99) mg/dL POC Glucose (mg/dL) (75-99) mg/dL Plasma Lactic Acid Harsh (0.7-2.0) mmol/L Total Protein 6.1 L (6.3-8.2) g/dL Albumin 2.9 L (3.5-5.0) g/dL 01/22/19 01/22/19 01/22/19 Range/Units 00:44 05:38 05:38 WBC 11.0 H (3.8-10.6) k/uL RBC 3.21 L (4.30-5.90) m/uL Hgb 8.4 L (13.0-17.5) gm/dL Hct 28.3 L (39.0-53.0) % MCHC 29.6 L (31.0-37.0) g/dL RDW 18.5 H (11.5-15.5) % Plt Count 640 H (150-450) k/uL Neutrophils # 9.6 H (1.3-7.7) k/uL Neutrophils # (Manual) (1.3-7.7) k/uL Lymphocytes # (Manual) (1.0-4.8) k/uL Myelocytes # (Manual) (0) k/uL ABG pH (7.35-7.45) ABG pCO2 (35-45) mmHg ABG Total CO2 (19-24) mmol/L ABG O2 Saturation (94-97) % Potassium 3.0 L (3.5-5.1) mmol/L Chloride (98-107) mmol/L Creatinine 0.61 L (0.66-1.25) mg/dL Glucose 118 H (74-99) mg/dL POC Glucose (mg/dL) (75-99) mg/dL Plasma Lactic Acid Harsh 2.4 H* (0.7-2.0) mmol/L Total Protein 6.0 L (6.3-8.2) g/dL Albumin 2.9 L (3.5-5.0) g/dL 01/22/19 01/22/19 Range/Units 05:38 07:14 WBC (3.8-10.6) k/uL RBC (4.30-5.90) m/uL Hgb (13.0-17.5) gm/dL Hct (39.0-53.0) % MCHC (31.0-37.0) g/dL RDW (11.5-15.5) % Plt Count (150-450) k/uL Neutrophils # (1.3-7.7) k/uL Neutrophils # (Manual) (1.3-7.7) k/uL Lymphocytes # (Manual) (1.0-4.8) k/uL Myelocytes # (Manual) (0) k/uL ABG pH (7.35-7.45) ABG pCO2 (35-45) mmHg ABG Total CO2 (19-24) mmol/L ABG O2 Saturation (94-97) % Potassium (3.5-5.1) mmol/L Chloride (98-107) mmol/L Creatinine (0.66-1.25) mg/dL Glucose (74-99) mg/dL POC Glucose (mg/dL) 124 H (75-99) mg/dL Plasma Lactic Acid Harsh 2.2 H* (0.7-2.0) mmol/L Total Protein (6.3-8.2) g/dL Albumin (3.5-5.0) g/dL Microbiology - Last 24 Hours (Table) 01/19/19 10:04 Blood Culture - Preliminary Blood No Growth after 48 hours 01/19/19 10:02 Urine Culture - Final Urine,Voided Assessment and Plan Assessment: 1. Acute septic shock with Febrile illness likely related to septic left knee.. Fever of 102.1. Influenza negative. UA negative. Lactic acid 1.4. Blood urine and sputum cultures ordered. Patient currently on Vancomycin and Fortaz for IV antibiotics. S Cultures pending 2. 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 Patient reports that he's been fol lowing at [facility] in which approximately 2 weeks ago he had left the incision cleaned out and wound VAC placed. Wound is now closed with lakisha clean dry and intact 3. History of parapneumonic effusion. In June 2018 patient was treated with 6 weeks of vancomycin and pigtail placement. Per pulmonary no evidence of acute pulmonary infection. No evidence of pneumonia. Chest x-ray reviewed showing chronic pleural parenchymal changes 4. History of coronary artery disease 5. History of pancreatitis 6. History of rheumatoid arthritis. Patient is maintained on prednisone 10 mg 3 times a day 7. History of hyperlipidemia 8. History of GERD 9. Hypotension. Patient initially admitted to the intensive care unit for close monitoring. Blood pressure has improved. Patient did not require any pressure support medication. Resolved. Fluids will be decreased to 75 10. Anemia. Will order iron studies and stool for occult blood. No signs of active bleeding at this time. Patient did receive large amounts of IV fluid for hypotension. This issue has resolved. Fluids will be cut 75 11. Increased abdominal pain with nausea and vomiting. Amylase and lipase levels ordered. Ammonia ordered abdominal ultrasound ordered. 12. Increased shortness of breath. Received 1 dose of Lasix throughout night. Chest x-ray completed showing diffuse airspace disease which may represent pulmonary vascular congestion versus infection process. Pulmonary and infectious disease are following. Did discuss case with pulmonary [employer]. DVT prophylaxis heparin. GI prophylaxis Protonix. Infectious disease and pulmonary services are following Patient currently on vancomycin and Fortaz IV antibiotics. Patient currently solucortef 100 mg every 8 hours per pulmonary Head CT completed showing no acute intracranial process I performed an examination of the patient and discussed their management with the Nurse Practitioner. I have reviewed the Nurse Practitioner's notes and agree with the documented findings and plan of care
[2019-01-22 11:43] LABS: Iron Saturation 3.8 (15.00-50.00)
[2019-01-22 11:59] LABS: Amylase 120 U/L (30-110); Lipase 66 U/L (23-300)
--- NOTE | 2019-01-22 12:02 | US ---
EXAMINATION TYPE: US abdomen complete DATE OF EXAM: 01/22/2019 COMPARISON: NONE CLINICAL HISTORY: abdominal pain. nausea EXAM MEASUREMENTS: Liver Length: 16.8 cm Gallbladder Wall: 0.2 cm CBD: 0.5 cm Spleen: not seen Right Kidney: 11.5 x 5.0 x 5.6 cm Left Kidney: 11.0 x 6.4 x 5.9 cm Technically difficult exam performed portably on patient unable to cooperate for exam. Pancreas: not visualized due to midline bowel gas Liver: limited visualization to intercostal window. Left lobe cyst measures 2.9 x 2.0 x 2.5 cm. Gallbladder: No stones seen Evidence for sonographic Conrad's sign: No CBD: wnl Spleen: not visualized due to overlying bowel gas. Right Kidney: No hydronephrosis or masses seen Left Kidney: No hydronephrosis or masses seen Upper IVC: wnl Abd Aorta: not visualized due to overlying bowel gas. The liver is homogenous. The intrahepatic portion of the IVC and proximal abdominal aorta are within normal limits. There is no evidence of cholelithiasis. Common bile duct is unremarkable. The visu alized portions of the pancreas are homogenous. The spleen is unremarkable. Kidneys are symmetric a nd free of hydronephrosis. No renal lesions are seen. IMPRESSION: 1. Simple cysts left hepatic lobe.
[2019-01-22 12:24] LABS: Glucose,Whole Blood 98 mg/dL (75-99)
--- NOTE | 2019-01-22 12:29 | CT ---
EXAMINATION TYPE: CT ChestAbdPelvis wo con DATE OF EXAM: 01/22/2019 COMPARISON: CT [facility] chest dated 09/02/2018 HISTORY: Sepsis, abdominal pain. CT DLP: 1564 mGycm. Automated Exposure Control for Dose Reduction was Utilized. TECHNIQUE: CT scan of the thorax, abdomen and pelvis is performed without IV contrast. FINDINGS: LUNGS: Right apical groundglass opacity is similar to the prior and could represent early fibrosis al though should be followed. Moderate emphysematous changes are centrilobular and paraseptal. Early hon eycombing is seen anteriorly within the right upper lobe and left upper lobe. Honeycombing is also se en at the right lung base. There are small bilateral pleural effusions and associated compressive ate lectasis. Bibasilar airspace disease also has areas of low density suggesting multifocal pneumonia Th ere is some hyperdensity of the pleura of the left pleural effusion such as on series 3 image 46a dem onstrating the split pleura sign suggesting complex pleural. Effusion such as an empyema. Pulmonary g ranulomas seen adjacent to this. No pneumothorax is seen. MEDIASTINUM: A bovine aortic arch is incidentally noted. Moderate coronary calcifications are present . There are no greater than 1 cm hilar or mediastinal lymph nodes. No pericardial effusion is seen. LIVER/GB: Left lobe hepatic cyst and other smaller lesions that are too small to accurately character ize but are favored to represent cysts are seen. No intrahepatic biliary ductal dilatation. No cholel ithiasis.. PANCREAS: No significant abnormality is seen. SPLEEN: Numerous splenic benign granulomas are seen. Small splenule is also noted adjacent to the bert becka spleen. ADRENALS: No significant abnormality is seen. KIDNEYS: No nephrolithiasis nor hydronephrosis. BOWEL: Mild degree fecal stasis is evident. No dilated large or small bowel. LYMPH NODES: No greater than 1cm abdominal or pelvic lymph nodes are appreciated. OSSEOUS STRUCTURES: Very subtle buckling of the posterior margin of rib 7 on the right may relate to prior fracture deformity. Moderate degenerative changes of the spine are noted. Severe left femoral a cetabular arthropathy and moderate right femoral acetabular arthropathy are seen with findings concer meaghan for early subchondral collapse of the left femur as there is slight contour abnormality and scle rosis. OTHER: Mild anasarca is present. IMPRESSION: 1. Findings suggesting multifocal pneumonia and split pleura sign of a very trace left pleural effusi on suggesting empyema. 2. Moderate emphysema and early pulmonary fibrosis. 3. Right apical groundglass opacity may represent developing pulmonary fibrosis however short-term fo llow up is recommended in 3 months to ensure stability as there is some increasing confluence of the prior. 4. Mild anasarca. 5. No intra-abdominal fluid collection to suggest abscess. 6. Severe arthropathy of the left femoral acetabular joint and findings concerning for early subchond ral collapse.
[2019-01-22 12:45] VITALS: BP 157/88; TEMP 99.2
[2019-01-22 13:12] LABS: Appearance,Urine Clear (Clear); Bilirubin,Urine Negative (Negative); Blood,Urine Negative (Negative); Color,Urine Light Yellow; Glucose,Urine (UA) Negative (Negative); Ketones,Urine Negative (Negative); Leukocyte Esterase,Urine Negative (Negative); Nitrite,Urine Negative (Negative); Protein,Urine Negative (Negative); Specific Gravity,Urine 1.012 (1.001-1.035); Urobilinogen,Urine <2.0 mg/dL (<2.0)
--- NOTE | 2019-01-22 13:52 | P.PN ---
Subjective Progress Note Date: 01/22/19 Principal diagnosis: Acute septic shock possibly related to septic left knee This is 73-year-old white male patient of Dr. Montemayor, with history of MRSA infection in the left knee following joint replacement, who underwent arthroplasty of the left knee with removal of hardware and placement of a spacer 2, most recently 2 weeks ago at the [facility] in [place]. Patient had a wound VAC placed on his left knee, and cultures of left knee drainage were positive for MRSA. Patient was an outpatient infusions of daptomycin, managed by Dr. Paul. He is getting daily IV antibiotics, he has a visiting nurse coming to his house 3-4 times weekly. Patient has a history of rheumatoid arthritis, was on suppressive therapy with methotrexate, currently on prednisone 10 mg 3 times a day. His original surgery of left total knee arthroplasty was over 15 years ago. In May 2018 patient was hospitalized with MRSA bacteremia, left knee septic arthritis with cultures positive for MRSA, and at that time he underwent left knee incision and drainage and removal of the left knee components and insertion of antibiotic spacers. He also had left shoulder pain he was felt to have synovitis of the left shoulder without active infection, left shoulder synovial fluid cultures were negative. Patient did require intubation and mechanical ventilation during that admission for acute exacerbation of congestive heart failure. We saw the patient in June 2018, for a right lower lung consolidation, a parapneumonic effusion, and there was a concern for empyema, patient had a pigtail chest tube catheter placed on the right, but the pleural fluid cultures were negative. The effusion was loculated, patient did receive TPA infusions, he was treated but does Zosyn and vancomycin, improved, and [facility] Medical history includes coronary artery disease with previous stent placement, COPD with former history of smoking, 40+ pack years, GERD, severe rheumatoid arthritis. Follows with Dr. Guerrero for primary care services. On 01/19/2019 patient was brought in by ambulance to the emergency department, after being noted to be lethargic, confused, babbling, not making any sense. Patient was having shaking chills, fever, and was having increased pain in his left knee. He has his for some pain medications and for his anxiety, and his called the EMS and brought into the hospital for further evaluation. He was well last night. She stated he did sound congested, he was coughing, but not bringing up any sputum, he denied any chest pain. On presentation to the emergency department patient was febrile with a temp of 102.1F, hypotensive with systolic in the 80s, tachycardic with a heart rate in the 120s BPM. He was given a total of 2 L of IV fluids, maintenance IV fluids infusing at rate of 150 ML per hour, labs showed white blood cell count of 7.9, hemoglobin of 14.4, electrolytes were within normal limits, normal renal profile, glucose was 234, lactic acid was 1.4, urinalysis was negative, fluids a screen was negative. Chest x-ray was completed and showed some pulmonary venous congestion without overt heart failure, and pleural parenchymal density in the right lung base could be chronic in nature. Right arm PICC line is in place. We were consulted in regards to sepsis, and the possibility of underlying pneumonia. My evaluation patient is resting on the gurney, he is lethargic, but arousable to verbal stimuli, his is present, and providing much of the history, patient denies any pulmonary complaints at this time, no chest pain, no shortness of breath, no cough or congestion. His lung sounds are diminished at the bases, with minimal crackles. No significant wheezing or rhonchi. ID Service has been consulted. Blood urine and sputum cultures have been ordered and sent. The blood pressure is still in the 80s over 50s, patient less tachycardic, sinus rhythm on the monitor with a rate of 97 BPM, left knee is quite warm to touch, VAC is on, but the batteries had run out, and the suction is currently off, there is black foam present left knee wound. Mild swelling in the left lower extremity, immobilizers in place. On 01/20/2019 patient seen again in follow-up in the intensive care unit, he is much more awake on today's exam, he is oriented 3, he is appropriate, he denies any specific complaints, no shortness of breath, chest pain, patient was febrile on presentation with a temp of 102.1F, he has been afebrile since, afebrile overnight, hemodynamically patient is more stable, no vasopressor support, IV 0.9 normal saline at a rate of 150 ML per hour, patient did receive IV fluid boluses a total of 2 L in fluid boluses, we restarted agents stress doses of hydrocortisone, antibiotic coverage in the form of Fortaz and vancomycin. Chest x-ray showed chronic pleural parenchymal changes related to his history of COPD, bronchiectasis, pulmonary fibrosis at the right base related to his history of pneumonia. Blood and urine cultures have been sent and are negative. Influenza screen was negative. Urinalysis was negative. A pulmonary complaints, no cough or congestion, no wheezing, some crackles at the bilateral bases likely related to underlying history of pulmonary fibrosis. No phlegm production, no evidence of active pulmonary disease, no pulmonary infection. Today's labs have been reviewed, BNP was done, sodium is 140, potassium is 4.0, chloride is 111, BUN is 15, creatinine is 0.60. Patient is voiding per urinal. Left knee wound VAC has been removed, incision is clean dry and intact, no drainage, lakisha are intact, covered with a sterile dressing. Left knee is less warm to touch compared to yesterday's exam On 01/21/2019 patient seen in follow-up on medical surgical floor. He is sitting up on the Sudafed, he is awake and alert, in no acute distress, no complaints of shortness of breath, no chest pain, the left knee incision is sherry n dry and intact, there is no drainage, lakisha are intact, covered with the dressing, and the dressing has no evidence of drainage on it the left knee is slightly warm, but not red, patient denies any pain in the left knee. Mentation is completely back to normal, however his daughter is at the bedside and she is concerned about some subtle changes in patient's mentation that the family had noted in the last several months, changes in mentation are nonspecific, patient is a bit more forgetful than he used to be. Brain CT to rule out possibility of a CVA. Otherwise patient's mentation is appropriate, he is oriented 3, no evidence of neurological deficits, no speech slurring, no motor weakness, no sensory deficits. No fever or chills, blood and urine cultures showed no growth. Patient is on a combination of vancomycin and ceftazidime. Hemodynamically stable, he did not require any vasopressor support. Room air pulse ox is 96%, lungs are positive for some scattered end expiratory wheezes, bibasilar crackles. No cough or chest congestion. Today's labs have been reviewed, white blood cell count is 10.3, hemoglobin 7.6, electrolytes are unremarkable, BUN is 11 creatinine 0.61. On 01/22/2019 she is seen in follow-up on medical surgical floor. Apparently last night patient was experiencing increased pain in his left knee. Was not feeling well, he was nauseous, vomited, grade fever this morning, 99.2F, he remains on 2 L of oxygen with a pulse ox of 98%, lung sounds are positive for expiratory wheezing, but no significant cough or congestion. Blood work today showed a white blood cell count of 11.0, hemoglobin is 8.4, sodium is 142, potassium is 3.0, chloride is 105, CO2 is 30, BUN is 9, creatinine 0.61, plasma lactic acid was elevated to 2.2. LFTs are within normal limits. Blood and urine cultures so far showed no growth, patient is on antibiotic coverage incl uding Fortaz and vancomycin, ESR is 77, malaise is 120, and lipase is 66 within normal limits. Abdomen is soft, nontender. No significant drainage from the left knee incision, lakisha are intact, but the knee feels warmer to touch on today's exam, CT chest, abdomen and pelvis was obtained, and showed again chronic changes in the lungs, 100 emphysema, early pulmonary fibrosis, no clear evidence of pneumonia. No intra-abdominal fluid to suggest abscess. No intrahepatic biliary ductal dilation patient, no cholelithiasis, no significant abnormality in the pancreas. Patient appears to be more sleepy on today's exam, but he is easily arousable, his daughter is at the bedside. Brain CT showed no acute intracranial process. Lung sounds reveal diminished breath sounds, with end expiratory wheezing, patient is on nebulized bronchodilators, he continues on stress doses of hydrocortisone, antibiotics. Objective - Vital Signs Vital signs: Vital Signs Temp 99.2 F 01/22/19 12:29 Pulse 70 01/22/19 12:29 Resp 18 01/22/19 12:29 BP 157/88 01/22/19 12:29 Pulse Ox 98 01/22/19 12:29 Intake & Output 01/21/19 01/22/19 01/22/19 18:59 06:59 18:59 Intake Total 940 500 0 Output Total 225 5400 900 Balance 715 -4900 -900 Intake: IV 700 Sodium Chloride 0.9% 1, 600 000 ml @ 75 mls/hr IV . [id number] SURYA Rx#:[id number] cefTAZidime 2 gm In 100 Sodium Chloride 0.9% 100 ml @ 100 mls/hr IVPB Q8H SURYA Rx#:[id number] Oral 240 500 0 Output: Urine 225 5400 900 Other: Voiding Method Urinal Incontinent Urinal # Voids 4 3 # Bowel Movements 0 - Exam GENERAL EXAM: Awake and alert, pleasant 73-year-old male, comfortable in no apparent distress. HEAD: Normocephalic/atraumatic. EYES: Normal reaction of pupils, equal size. Conjunctiva pink, sclera white. NOSE: Clear with pink turbinates. THROAT: No erythema or exudates. NECK: No masses, no JVD, no thyroid enlargement, no adenopathy. CHEST: No chest wall deformity. Symmetrical expansion. LUNGS: Equal air entry with a few expiratory wheezes, and bibasilar crackles CVS: Regular rate and rhythm, normal S1 and S2, no gallops, no murmurs, no rubs ABDOMEN: Soft, nontender. No hepatosplenomegaly, normal bowel sounds, no guarding or rigidity. EXTREMITIES: No clubbing, 1+ edema and lower extremity, pedal and pretibial, left knee is in the immobilizer, wound VAC has been removed midline left knee incision clean dry and intact, lakisha are intact, no drainage. Less warm to touch on today's exam MUSCULOSKELETAL: Muscle strength and tone normal. SPINE: No scoliosis or deformity SKIN: No rashes CENTRAL NERVOUS SYSTEM: Tired but arousable and oriented -3. No focal deficits, tone is normal in all 4 extremities. - Labs CBC & Chem 7: 01/22/19 05:38 01/22/19 11:30 Labs: Abnormal Lab Results - Last 24 Hours (Table) 01/21/19 01/21/19 01/22/19 Range/Units 17:27 20:40 00:12 WBC (3.8-10.6) k/uL RBC (4.30-5.90) m/uL Hgb (13.0-17.5) gm/dL Hct (39.0-53.0) % MCHC (31.0-37.0) g/dL RDW (11.5-15.5) % Plt Count (150-450) k/uL Neutrophils # (1.3-7.7) k/uL Neutrophils # (Manual) (1.3-7.7) k/uL Lymphocytes # (Manual) (1.0-4.8) k/uL Myelocytes # (Manual) (0) k/uL ESR (0-15) mm/hr ABG pH 7.46 H (7.35-7.45) ABG pCO2 33 L (35-45) mmHg ABG Total CO2 25 H (19-24) mmol/L ABG O2 Saturation 98.7 H (94-97) % Potassium (3.5-5.1) mmol/L Chloride (98-107) mmol/L Creatinine (0.66-1.25) mg/dL Glucose (74-99) mg/dL POC Glucose (mg/dL) 184 H 366 H (75-99) mg/dL Plasma Lactic Acid Harsh (0.7-2.0) mmol/L Iron (65-175) ug/dL Iron Saturation (15.00-50.00) Total Protein (6.3-8.2) g/dL Albumin (3.5-5.0) g/dL Amylase (30-110) U/L 01/22/19 01/22/19 01/22/19 Range/Units 00:44 00:44 00:44 WBC (3.8-10.6) k/uL RBC 3.05 L (4.30-5.90) m/uL Hgb 8.3 L (13.0-17.5) gm/dL Hct 27.2 L (39.0-53.0) % MCHC 30.7 L (31.0-37.0) g/dL RDW 18.2 H (11.5-15.5) % Plt Count 578 H (150-450) k/uL Neutrophils # (1.3-7.7) k/uL Neutrophils # (Manual) 9.96 H (1.3-7.7) k/uL Lymphocytes # (Manual) 0.53 L (1.0-4.8) k/uL Myelocytes # (Manual) 0.11 H (0) k/uL ESR (0-15) mm/hr ABG pH (7.35-7.45) ABG pCO2 (35-45) mmHg ABG Total CO2 (19-24) mmol/L ABG O2 Saturation (94-97) % Potassium 3.4 L (3.5-5.1) mmol/L Chloride 111 H (98-107) mmol/L Creatinine 0.62 L (0.66-1.25) mg/dL Glucose (74-99) mg/dL POC Glucose (mg/dL) (75-99) mg/dL Plasma Lactic Acid Harsh 2.4 H* (0.7-2.0) mmol/L Iron (65-175) ug/dL Iron Saturation (15.00-50.00) Total Protein 6.1 L (6.3-8.2) g/dL Albumin 2.9 L (3.5-5.0) g/dL Amylase (30-110) U/L 01/22/19 01/22/19 01/22/19 Range/Units 05:38 05:38 05:38 WBC 11.0 H (3.8-10.6) k/uL RBC 3.21 L (4.30-5.90) m/uL Hgb 8.4 L (13.0-17.5) gm/dL Hct 28.3 L (39.0-53.0) % MCHC 29.6 L (31.0-37.0) g/dL RDW 18.5 H (11.5-15.5) % Plt Count 640 H (150-450) k/uL Neutrophils # 9.6 H (1.3-7.7) k/uL Neutrophils # (Manual) (1.3-7.7) k/uL Lymphocytes # (Manual) (1.0-4.8) k/uL Myelocytes # (Manual) (0) k/uL ESR (0-15) mm/hr ABG pH (7.35-7.45) ABG pCO2 (35-45) mmHg ABG Total CO2 (19-24) mmol/L ABG O2 Saturation (94-97) % Potassium 3.0 L (3.5-5.1) mmol/L Chloride (98-107) mmol/L Creatinine 0.61 L (0.66-1.25) mg/dL Glucose 118 H (74-99) mg/dL POC Glucose (mg/dL) (75-99) mg/dL Plasma Lactic Acid Harsh (0.7-2.0) mmol/L Iron 12 L (65-175) ug/dL Iron Saturation 3.80 L (15.00-50.00) Total Protein 6.0 L (6.3-8.2) g/dL Albumin 2.9 L (3.5-5.0) g/dL Amylase (30-110) U/L 01/22/19 01/22/19 01/22/19 Range/Units 05:38 07:14 11:30 WBC (3.8-10.6) k/uL RBC (4.30-5.90) m/uL Hgb (13.0-17.5) gm/dL Hct (39.0-53.0) % MCHC (31.0-37.0) g/dL RDW (11.5-15.5) % Plt Count (150-450) k/uL Neutrophils # (1.3-7.7) k/uL Neutrophils # (Manual) (1.3-7.7) k/uL Lymphocytes # (Manual) (1.0-4.8) k/uL Myelocytes # (Manual) (0) k/uL ESR (0-15) mm/hr ABG pH (7.35-7.45) ABG pCO2 (35-45) mmHg ABG Total CO2 (19-24) mmol/L ABG O2 Saturation (94-97) % Potassium (3.5-5.1) mmol/L Chloride (98-107) mmol/L Creatinine (0.66-1.25) mg/dL Glucose (74-99) mg/dL POC Glucose (mg/dL) 124 H (75-99) mg/dL Plasma Lactic Acid Harsh 2.2 H* (0.7-2.0) mmol/L Iron (65-175) ug/dL Iron Saturation (15.00-50.00) Total Protein (6.3-8.2) g/dL Albumin (3.5-5.0) g/dL Amylase 120 H (30-110) U/L 01/22/19 Range/Units 11:30 WBC (3.8-10.6) k/uL RBC (4.30-5.90) m/uL Hgb (13.0-17.5) gm/dL Hct (39.0-53.0) % MCHC (31.0-37.0) g/dL RDW (11.5-15.5) % Plt Count (150-450) k/uL Neutrophils # (1.3-7.7) k/uL Neutrophils # (Manual) (1.3-7.7) k/uL Lymphocytes # (Manual) (1.0-4.8) k/uL Myelocytes # (Manual) (0) k/uL ESR 77 H (0-15) mm/hr ABG pH (7.35-7.45) ABG pCO2 (35-45) mmHg ABG Total CO2 (19-24) mmol/L ABG O2 Saturation (94-97) % Potassium (3.5-5.1) mmol/L Chloride (98-107) mmol/L Creatinine (0.66-1.25) mg/dL Glucose (74-99) mg/dL POC Glucose (mg/dL) (75-99) mg/dL Plasma Lactic Acid Harsh (0.7-2.0) mmol/L Iron (65-175) ug/dL Iron Saturation (15.00-50.00) Total Protein (6.3-8.2) g/dL Albumin (3.5-5.0) g/dL Amylase (30-110) U/L Microbiology - Last 24 Hours (Table) 01/19/19 10:04 Blood Culture - Preliminary Blood No Growth after 72 hours 01/19/19 10:02 Urine Culture - Final Urine,Voided Assessment and Plan Plan: Assessment: #1. Hypotension, fever, possiblilities include acute SIRS vs acute septic shock , possibly related to septic left knee, with recent history of left knee spacer replacement at [facility] and [place]. Most recent left knee wound culture was positive for MRSA, patient has had persistent left knee MRSA infection since May 2018 with revision of the left knee spacer placements. Has been on daptomycin infusions on an outpatient basis. No evidence of active pulmonary infection, no evidence of pneumonia. Chest X-ray showed a chronic pleural parenchymal changes #2. Altered mentation, fever, shaking chills related to above, resolved, and on today's exam on 01/20/2019 is mentation has improved, completely back to baseline, patient is awake and alert oriented 3, afebrile. #3. Status post left knee arthroplasty, with revision, and MRSA infection, and placement of antibiotic spacers 2 #4. History of parapneumonic effusion on the right in June 2018, requiring pigtail chest tube insertion, TPA infusions, and pleural fluid cultures were negative #5. Chronic pleural parenchymal changes, paraseptal emphysema, bronchiectasis, and chronic fibrotic changes in the right base related to previous history of pneumonia. Doubt current pneumonia at this time #6. History of coronary artery disease with previous stenting #7. History of rheumatoid arthritis, previously on methotrexate, currently on oral prednisone #8. Hyperlipidemia #9. GERD Plan: Suspect showering of infection into the bloodstream intermittently, and the source is suspected to be from the left knee. We will consult orthopedic surgery their input, CT of chest abdomen and pelvis did not show any acute abnormality within the lungs or the abdomen. Chronic changes in the lungs, doubt pulmonary infection. ID service is following, managing the antibiotics. Send blood cultures, urinalysis with reflex to culture, ESR. We'll continue to follow. There is a possibility patient may have to be sent back to [facility] the surgeon who did his most recent revision. I performed a history & physical examination of the patient and discussed their management with my nurse practitioner, Yoselin Wiggins. I reviewed the nurse practitioner's note and agree with the documented findings and plan of care. Lung sounds are positive for clear breath sounds, diminished at the bases. The findings and the impression was discussed with the patient. I attest to the documentation by the nurse practitioner. Time with Patient: Less than 30
--- NOTE | 2019-01-22 14:35 | CDI ---
Documentation Clarification Form Date: 01/22/2019 2:22:04 PM From: Gail Meléndez CCS, CCDS Admit Date: 01/19/2019 11:49:00 AM Patient Name: Fletcher Sanabria Visit Number: [id number] Discharge Date: ATTENTION: The Clinical Documentation Specialists (CDI) and [facility] Coding Staff appreciate your assistance in clarifying documentation. Please respond to the clarification below the line at the bottom and electronically sign. The CDI & [facility] Coding staff will review the response and follow-up if needed. Please note: Queries are made part of the Legal Health Record. If you have any questions, please contact the author of this message via ITS. Dr. Abad Vaca: Altered mental status is documented in the ED note & subsequent documentation. History/Risk Factors: CAD, COPD, GERD, Hyperlipidemia, Pneumonia, RA, Pancreatitis, Gastritis, Home O2, MRSA 12/01: left, Empyema/parapneumonic effusion. Former smoker. Clinical Indicators: Presented febrile with altered mental status changes. Recently admitted to [facility], left knee incision cleaned, wound VAC was in place. Has had persistent infection to left TKA w/removal of antibiotic spacer & placement of a new antibiotic spacer, receiving IV antibiotics via Infectious Disease office. VS: T 102.1^, P 125^, R 25^, BP 107/80, PO 90 ra Labs: WBC (7.9), Gluc 234, Lactic Acid (1.4). Influenza negative. Urine & blood cultures negative. CT Brain for altered mental status: no acute intracranial process. Treatment: IV fluid boluses, IV fluid 100, IV SoluCortef, IV Vancomycin, IV Fortaz, Albuterol INH, IV Lasix, IV Zofran, IV Dilaudid, po Kcl In your professional opinion, can you please clarify the specific type of Encephalopathy, if known? Metabolic Encephalopathy Septic Encephalopathy Toxic Encephalopathy Other, please specify Unable to determine (Last Revision: January 2018) septic encephalopathy MTDD
--- NOTE | 2019-01-22 14:55 | P.DS ---
Providers Date of admission: 01/19/19 11:49 Expected date of discharge: 01/22/19 Attending physician: Abad Vaca Consults: 01/19/19 11:49 Consult Physician Stat Consulting Provider: Fletcher Paul Consult Reason/Comments: Left lower extremity MRSA, antibiotic selection Do you want consulting provider notified?: Yes 01/19/19 13:17 Consult Physician Routine Consulting Provider: Lisa Manley Consult Reason/Comments: History of empyema/parapneumonic effusion Do you want consulting provider notified?: Yes 01/22/19 11:09 Consult Physician Stat Consulting Provider: Sonido Purvis Consult Reason/Comments: left knee infection, Hx of MRSA, sepsis Do you want consulting provider notified?: Yes Primary care physician: Ruthy Montemayor Hospital Course: Discharge diagnosis 1. Acute septic shock with Febrile illness likely related to septic left knee.. Fever of 102.1. Influenza negative. UA negative. Lactic acid 1.4. Blood urine and sputum cultures ordered. Patient currently on Vancomycin and Fortaz for IV antibiotics. Cultures pending 2. 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 Patient reports that he's been following at [facility] in which approximately 2 weeks ago he had left the incision cleaned out and wound VAC placed. Wound is now closed with lakisha clean dry and intact 3. History of parapneumonic effusion. In June 2018 patient was treated with 6 weeks of vancomycin and pigtail placement. Per pulmonary no evidence of acute pulmonary infection. No evidence of pneumonia. Chest x-ray reviewed showing chronic pleural parenchymal changes 4. History of coronary artery disease 5. History of pancreatitis 6. History of rheumatoid arthritis. Patient is maintained on prednisone 10 mg 3 times a day 7. History of hyperlipidemia 8. History of GERD 9. Hypotension. Patient initially admitted to the intensive care unit for close monitoring. Blood pressure has improved. Patient did not require any pressure support medication. Resolved. Fluids will be decreased to 75 10. Anemia. Will order iron studies and stool for occult blood. No signs of active bleeding at this time. Patient did receive large amounts of IV fluid for hypotension. This issue has resolved. Fluids will be cut 75 11. Increased abdominal pain with nausea and vomiting. Amylase and lipase levels ordered. Ammonia ordered abdominal ultrasound ordered. 12. Increased shortness of breath. Received 1 dose of Lasix throughout night. Chest x-ray completed showing diffuse airspace disease which may represent pulmonary vascular congestion versus infection process. Pulmonary and infectious disease are following. Did discuss case with pulmonary QUALITY CONTROL MICROBIOLOGIST. Hospital course This is a 73-year-old male patient who presented to the hospital with complaint of febrile illness and altered mental status changes. Patient's is at bedside reports that patient was confused this a.m. and had a high fever. Patient was recently admitted at [facility] in which they cleaned out left knee incision approximate 2 weeks ago. Currently wound VAC is in place. 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 Patient reports that he follows with Dr. Paul and receives IV antibiotics through office. Additional medical history includes empyema/parapneumonic effusion in June 2018 in which he was treated 6 weeks with Vanco and pigtail placement was later removed. Additional medical history includes CAD, pancreatitis, rheumatoid arthritis which she is maintained on prednisone, GERD and hyperlipidemia. Influenza negative. UA negative. Chest x-ray completed showing pulmonary venous congestion with out overt failure. Pleural parenchymal density right lung bases likely chronic in nature. Patient does report he had a cough. Dr. Paul for infectious disease and pulmonary services have been consulted. EKG completed showing sinus tachycardia. At this time patient is sleepy but will wake up and answer questions. Patient denies any recent diarrhea or pain in abdomen. Patient denies nausea vomiting diarrhea. Patient denies chest pain or shortness of breath. Patient denies any burning with urination. On 01/20/2019. Patient is much more alert and oriented today compared to yesterday. Patient is currently resting comfortably in bed. Patient has been afebrile. Patient is currently in the intensive care unit due to having hypotension last night. Patient did not require any pressure support medication. Blood pressure has significantly improved. Patient currently on vancomycin and daptomycin. Blood, urine and spuum cultures have been ordered. Pulmonary and infectious disease is following. At this time patient denies chest pain or shortness breath. Patient denies nausea vomiting or diarrhea. Patient denies any urinary burning or frequency. On 01/21/2019 patient is alert and oriented 3. Patient feels significantly improved. Patient has been afebrile. Patient remains on Vanco and Fortaz for IV antibiotics. At this time patient denies chest pain or shortness of breath. Patient denies nausea vomiting or diarrhea. Patient denies any urinary burning or frequency. Patient's hemoglobin 7.6 this a.m. Patient has received a large amount of fluid due to hypotension. Per nursing staff and patient no signs of active bleeding. Will order for stool for occult blood. Fluids will be cut to 75. Blood pressure has improved. On 01/22/2019 patient is having increased pain today. Patient was feeling much improved yesterday but throughout night patient had increased shortness of breath and increased pain. Patient states most pain is into his left knee but also having some abdominal discomfort. Patient did receive IV Lasix during the night. Did discuss with pulmonary nurse practitioner. At this time will order amylase and lipase levels. Also ordered ammonia and abdominal ultrasound. Patient is having some nausea. Patient denies any chest pain. Patient denies any urinary burning or frequency. Discussed case with infectious disease and pulmonary care. At this time recommending transferred to [facility] for higher level care. Patient also has been treated by orthopedic surgeon at [facility]. Patient is having increased pain to left knee at the site is red swollen. Patient has been on vancomycin and Fortaz per infectious disease I performed an examination of the patient and discussed their management with the Nurse Practitioner. I have reviewed the Nurse Practitioner's notes and agree with the documented findings and plan of care Patient Condition at Discharge: Stable Plan - Discharge Summary Discharge Rx Participant: No New Discharge Prescriptions: No Action RX: predniSONE 10 mg PO TID oxyCODONE-APAP 10-325MG [Percocet 10-325 mg] 2 tab PO QID hydrOXYzine PAMOATE [Vistaril] 25 mg PO QID traMADol HCL [Ultram] 50 - 100 mg PO Q8H PRN PRN Reason: Pain Sennosides [Senna] 8.6 mg PO BID PRN PRN Reason: Constipation Aspirin EC [Ecotrin Low Dose] 81 mg PO BID Ascorbic Acid [Vitamin C] 500 mg PO BID RX: Zinc Sulfate 220 mg PO DAILY RX: Meloxicam 15 mg PO DAILY RX: Diazepam 10 mg PO Q6H PRN PRN Reason: Anxiety Multivitamin,Therapeutic [Thera] 1 tab PO DAILY Discharge Medication List RX: predniSONE 10 mg PO TID 11/21/18 [History] Ascorbic Acid [Vitamin C] 500 mg PO BID 01/19/19 [History] Aspirin EC [Ecotrin Low Dose] 81 mg PO BID 01/19/19 [History] Multivitamin,Therapeutic [Thera] 1 tab PO DAILY 01/19/19 [History] RX: Diazepam 10 mg PO Q6H PRN 01/19/19 [History] RX: Meloxicam 15 mg PO DAILY 01/19/19 [History] RX: Zinc Sulfate 220 mg PO DAILY 01/19/19 [History] Sennosides [Senna] 8.6 mg PO BID PRN 01/19/19 [History] hydrOXYzine PAMOATE [Vistaril] 25 mg PO QID 01/19/19 [History] oxyCODONE-APAP 10-325MG [Percocet 10-325 mg] 2 tab PO QID 01/19/19 [History] traMADol HCL [Ultram] 50 - 100 mg PO Q8H PRN 01/19/19 [History] Follow up Appointment(s)/Referral(s): Ruthy Montemayor DO [Primary Care Provider] - 1-2 days [facility] Visiting Nurse, [NON-STAFF] - 1-2 Days
[2019-01-22 15:05] VITALS: RESP 16
[2019-01-22 15:53] VITALS: PULSE 71
[2019-01-22 17:23] LABS: Glucose,Whole Blood 103 mg/dL (75-99)
== END 2019-01-22 18:04 | disposition short-term general hospital (02) | DRG 559 ==
LOC: EC 09:48 → 3SCARD 11:49 → 2SICU 16:29 → 4MS4W 01-21 00:24
PROVIDERS: ADMIT Internal Medicine; ATTEND Internal Medicine
DX: T84.54XA Infection and inflammatory reaction due to internal left knee prosthesis, initial encounter (principal); R65.21 Severe sepsis with septic shock; A41.9 Sepsis, unspecified organism; G93.41 Metabolic encephalopathy; J84.10 Pulmonary fibrosis, unspecified; I50.9 Heart failure, unspecified; E86.0 Dehydration; J43.8 Other emphysema; D64.9 Anemia, unspecified; M06.9 Rheumatoid arthritis, unspecified; K21.9 Gastro-esophageal reflux disease without esophagitis; I25.10 Atherosclerotic heart disease of native coronary artery without angina pectoris; E78.5 Hyperlipidemia, unspecified; R00.0 Tachycardia, unspecified; F41.9 Anxiety disorder, unspecified; J47.9 Bronchiectasis, uncomplicated; Z99.81 Dependence on supplemental oxygen; Z79.82 Long term (current) use of aspirin; Z79.52 Long term (current) use of systemic steroids; Z87.01 Personal history of pneumonia (recurrent); Z86.14 Personal history of Methicillin resistant Staphylococcus aureus infection; Z96.611 Presence of right artificial shoulder joint; Z95.5 Presence of coronary angioplasty implant and graft; Z87.891 Personal history of nicotine dependence; Z82.61 Family history of arthritis; Z81.8 Family history of other mental and behavioral disorders; Z80.9 Family history of malignant neoplasm, unspecified
CPT/HCPCS: 36415; 36600; 70450; 71045; 71046; 71250; 74176; 76700; 80053; 80202; 81003; 82140; 82150; 82728; 82805; 83036; 83540; 83550; 83605; 83690; 83735; 83880; 84100; 84132; 84484; 85025; 85652; 87040; 87086; 87502; 93005; 94640; 96361; 96365; 96366; 96375; 99291; 99292

== ENCOUNTER 2019-08-01 12:18 | Emergency (ER) | payer MEDICARE ==
[2019-08-01 12:25] VITALS: RESP 18
--- NOTE | 2019-08-01 12:37 | ED ---
General Adult HPI - General Chief complaint: Skin/Abscess/Foreign Body Stated complaint: RT LEG INJURY Time Seen by Provider: 08/01/19 12:25 Source: patient, RN notes reviewed Mode of arrival: wheelchair Limitations: no limitations - History of Present Illness Initial comments: 74-year-old male with a past medical history of CAD, COPD, hyperlipidemia, left [id number] amputation presents to the emergency department for a chief complaint of wound on the right lower extremity. Patient states he dropped a roaster on his right kc about a week ago. States it started as an abrasion and has since become an open wound. States he does not heal well and he is concerned it is not healing. Patient does have a history of MRSA. He denies fevers or chills. He denies any increased edema on the right lower extremities.Patient has no other complaints at this time including shortness of breath, chest pain, abdominal pain, nausea or vomiting, headache, or visual changes. - Related Data Home Medications Medication Instructions Recorded Confirmed predniSONE 10 mg PO TID 09/02/18 01/19/19 Ascorbic Acid [Vitamin C] 500 mg PO BID 01/19/19 01/19/19 Aspirin EC [Ecotrin Low Dose] 81 mg PO BID 01/19/19 01/19/19 Diazepam 10 mg PO Q6H PRN 01/19/19 01/19/19 Meloxicam 15 mg PO DAILY 01/19/19 01/19/19 Multivitamin,Therapeutic [Thera] 1 tab PO DAILY 01/19/19 01/19/19 Sennosides [Senna] 8.6 mg PO BID PRN 01/19/19 01/19/19 Zinc Sulfate 220 mg PO DAILY 01/19/19 01/19/19 hydrOXYzine PAMOATE [Vistaril] 25 mg PO QID 01/19/19 01/19/19 oxyCODONE-APAP 10-325MG [Percocet 2 tab PO QID 01/19/19 01/19/19 10-325 mg] traMADol HCL [Ultram] 50 - 100 mg PO Q8H PRN 01/19/19 01/19/19 Previous Rx's Medication Instructions Recorded Heparin Sodium,Porcine [Heparin 5,000 unit SQ Q8HR vial 01/22/19 Sodium] INSULIN ASPART (NovoLOG) [NovoLOG 0 unit SQ ACHS vial 01/22/19 (formulary)] Ipratropium-Albuterol Nebulize 3 ml INHALATION RT-Q2H PRN 01/22/19 [Duoneb 0.5 mg-3 mg/3 ml Soln] ampul.neb Ipratropium-Albuterol Nebulize 3 ml INHALATION RT-QID ampul.neb 01/22/19 [Duoneb 0.5 mg-3 mg/3 ml Soln] Ondansetron [Zofran] 4 mg IVP Q6HR PRN vial 01/22/19 Pantoprazole [Protonix] 40 mg PO AC-BRKFST tablet. 01/22/19 Vancomycin 1,750 mg IVPB Q12H vial 01/22/19 Clindamycin [Cleocin] 450 mg PO TID 10 Days #90 capsule 08/01/19 Allergies Allergy/AdvReac Type Severity Reaction Status Date / Time No Known Allergies Allergy Verified 08/01/19 12:19 Review of Systems ROS Statement: Those systems with pertinent positive or pertinent negative responses have been documented in the HPI. ROS Other: All systems not noted in ROS Statement are negative. Past Medical History Past Medical History: Coronary Artery Disease (CAD), COPD, Hyperlipidemia, Pneumonia, Rheumatoid Arthritis (RA) Additional Past Medical History / Comment(s): History of pancreatitis, 2012 past medical record documents viral pericarditis but pt denies, gastritis, has home O2 at HS only but has not been using. Fluid build up rt lung - previous chest tube - pt unsure what it is from, BOTTOM TEETH REMOVED 09-01-18 History of Any Multi-Drug Resistant Organisms: MRSA Date of last positivie culture/infection: 11/23/18 MDRO Source:: KNEE Past Surgical History: Heart Catheterization With Stent, Joint Replacement, Orthopedic Surgery Additional Past Surgical History / Comment(s): Total L knee arthroplasty with a spacer in place, R total shoulder replaced, L ankle ORIF d/t fracture, EGD, left rotator cuff repair. right ankle sx, thoracentesis, chest tube rt lung, LT above the knee amputation Past Anesthesia/Blood Transfusion Reactions: No Reported Reaction Additional Past Anesthesia/Blood Transfusion Reaction / Comment(s): Pt states he has never recieved blood. Date of Last Stent Placement:: 12/10/16 Past Psychological History: No Psychological Hx Reported Smoking Status: Former smoker Past Alcohol Use History: None Reported Past Drug Use History: Marijuana - Past Family History Sister(s) Family Medical History: Cancer Additional Family Medical History / Comment(s): pt's father had ra, mother had 16 children was healthy most of her life age 93 from dementia. Mother Family Medical History: Dementia Additional Family Medical History / Comment(s): Mother from dementia at the age of 93 yrs. Father Family Medical History: Rheumatoid Arthritis (RA) General Exam Limitations: no limitations General appearance: alert, in no apparent distress Head exam: Present: atraumatic, normocephalic, normal inspection Eye exam: Present: normal appearance, PERRL, EOMI. Absent: scleral icterus, conjunctival injection, periorbital swelling ENT exam: Present: normal exam, mucous membranes moist Neck exam: Present: normal inspection, full ROM. Absent: tenderness, meningismus Respiratory exam: Present: normal lung sounds bilaterally. Absent: respiratory distress, wheezes, rales, rhonchi, stridor Cardiovascular Exam: Present: regular rate, normal rhythm, normal heart sounds. Absent: systolic murmur, diastolic murmur, rubs, gallop, clicks Extremities exam: Present: normal capillary refill (Capillary refill less than 2 seconds. Patient does have mild pitting edema of the right lower surgery which she states is chronic.), other (There is a 1 cm x 1 cm chronic-appearing open wound of the right tib-fib. No surrounding erythema or increased warmth. No evidence of infection. There is a clear weeping fluid. There is no purulent drainage.) Course Vital Signs 08/01/19 08/01/19 12:19 13:40 Temperature 97.9 F 98.3 F Pulse Rate 101 H 76 Respiratory 18 18 Rate Blood Pressure 109/72 111/78 O2 Sat by Pulse 93 L 96 Oximetry Medical Decision Making - Medical Decision Making Wound is chronic-appearing in nature. No signs of infection at this time. Patient has a history of diminished wound healing and has a left above-knee amputation. X-ray negative. Patient likely needs wound care management. He does already follow with Dr. Paul so patient will contact Dr. Paul tomorrow as well as wound care center. Referral number given. Wound was dressed. Patient was given antibiotic and directed to take this if he notices any erythema or purulent discharge. He will return to the emergency department if he has any worsening symptoms. Disposition Clinical Impression: Chronic wound of extremity Disposition: HOME SELF-CARE Condition: Good Instructions (If sedation given, give patient instructions): Chronic Wounds (ED) Additional Instructions: Please follow up with Dr. Paul as well as wound care center tomorrow morning at [phone]. If you have worsening symptoms return to the emergency department. If wound begins to look red or infected take antibiotic. Prescriptions: Clindamycin [Cleocin] 450 mg PO TID 10 Days #90 capsule Is patient prescribed a controlled substance at d/c from ED?: No Referrals: Fletcher Montemayor DO [Primary Care Provider] - 1-2 days Delbert Diaz MD [STAFF PHYSICIAN] - 1-2 days Fletcher Paul MD [STAFF PHYSICIAN] - 1-2 days Time of Disposition: 13:37
--- NOTE | 2019-08-01 13:13 | XR ---
EXAMINATION TYPE: XR tibia fibula RT , 2 VIEWS DATE OF EXAM ORDERED: 08/01/2019 HISTORY: non-healing wound, mid tib. COMPARISON: None. FINDINGS: No fracture, dislocation or other osseous destructive lesion is seen. IMPRESSION: NO ACUTE OSSEOUS LESION.
[2019-08-01 13:42] VITALS: BP 111/78; PULSE 76; TEMP 98.3
== END 2019-08-01 13:50 | disposition home or self-care (01) ==
LOC: EC 12:18
DX: S81.801A Unspecified open wound, right lower leg, initial encounter (principal); R60.0 Localized edema; I25.10 Atherosclerotic heart disease of native coronary artery without angina pectoris; M06.9 Rheumatoid arthritis, unspecified; Z87.891 Personal history of nicotine dependence; Z79.1 Long term (current) use of non-steroidal anti-inflammatories (NSAID); Z79.52 Long term (current) use of systemic steroids; Z79.82 Long term (current) use of aspirin; Z79.891 Long term (current) use of opiate analgesic; Z79.899 Other long term (current) drug therapy; Z86.14 Personal history of Methicillin resistant Staphylococcus aureus infection; Z89.612 Acquired absence of left leg above knee; Z96.652 Presence of left artificial knee joint; Z95.5 Presence of coronary angioplasty implant and graft; Z96.611 Presence of right artificial shoulder joint; W20.8XXA Other cause of strike by thrown, projected or falling object, initial encounter
CPT/HCPCS: 99283

== ENCOUNTER → 2019-08-24 | Outpatient (CLI) | payer MEDICARE ==
--- NOTE | 2019-08-24 14:35 | US ---
LOWER EXTREMITY VENOUS INSUFFICIENCY CLINICAL HISTORY: L97.215 NON PRESSURE CHRONIC ULCER OF RIGHT CALF WITH MUSCLE. SIDE PERFORMED: Right 1) Color flow is present and patency is documented in the following vessels. No DVT or SVT is noted . EIV Common Femoral Vein Deep Femoral Vein Femoral Vein Popliteal Vein Greater Saph Vein Upper Small Saph Vein 2) There is venous reflux noted at the following venous levels: Right CFV, GSV, FV Left leg above knee amputation IMPRESSION: Venous reflux within the right common femoral vein, superficial femoral vein and greater saphenous vein.
--- NOTE | 2019-08-25 11:27 | P.ARTDOP ---
Arterial Doppler LOWER EXTREMITY ARTERIAL DOPPLER: DATE OF SERVICE: 08/24/2019 Reason for study: Status post left AKA. Ulcer left stump and anterior right l eg. Doppler waveforms: Multiphasic at the left femoral and throughout on the right. Pulse volume recording: Normal configuration on the right. Pressure gradients: None. Ankle-brachial indices: Greater than 1 on the right. Toe pressures: 151 on the right, [] on the left Impression: Normal flow on the right. Elevated right ankle pressures suspicious for calcific wall disease, but not hemodynamically significant..
== END | disposition home or self-care (01) ==
LOC: RADUSWWP 11:09
PROVIDERS: ATTEND Thoracic Surgery (Cardiothoracic Vascular Surgery)
DX: I87.2 Venous insufficiency (chronic) (peripheral) (principal); L97.215 Non-pressure chronic ulcer of right calf with muscle involvement without evidence of necrosis; L97.125 Non-pressure chronic ulcer of left thigh with muscle involvement without evidence of necrosis; M06.9 Rheumatoid arthritis, unspecified; J44.1 Chronic obstructive pulmonary disease with (acute) exacerbation; S81.811A Laceration without foreign body, right lower leg, initial encounter; Z89.612 Acquired absence of left leg above knee; Z89.611 Acquired absence of right leg above knee
CPT/HCPCS: 93922

== ENCOUNTER 2019-09-03 17:46 | Inpatient (IN) | payer MEDICARE ==
[2019-09-03] MEDS ORDERED: SODIUM CHLORIDE 0.9% 1,000 ML IV STA (17:58)
[2019-09-03] MEDS ORDERED: ONDANSETRON 4 MG/2 ML VIAL IVP STA ×2 (17:58→20:20)
--- NOTE | 2019-09-03 17:58 | ED ---
Chest Pain HPI - General Chief Complaint: Chest Pain Stated Complaint: Chest and abd pain Time Seen by Provider: 09/03/19 17:52 Source: patient Mode of arrival: ambulatory Limitations: no limitations - History of Present Illness Initial Comments: This is a 72-year-old male the ER for evaluation presents today for evaluation regarding chest pain and abdominal pain. Has recent history of left lower leg AKA, patient has history of CAD. Patient has chest pain about pain started today with nausea vomiting currently. Patient does take Percocet at home as well able to keep down his pain medications at home. He denies any recent travel history, no recent fevers or sick contacts. Patient again does have recent surgery no history of blood clots that he knows. Patient states pain started this afternoon and is worsening throughout the day. He does have history of significantly similar complaint abdominal pain and has history of CAD with this chest pain is different MD Complaint: chest pain -: hour(s) Onset: during rest Pain Location: substernal, left chest, right chest Severity: moderate Severity scale (1-10): 4 Quality: tightness, aching Consistency: constant Improves With: nothing Worsens With: exertion, inspiration Context: recent surgery Anginal Symptoms: nausea, diaphoresis, dyspnea Treatments Prior to Arrival: none - Related Data Home Medications Medication Instructions Recorded Confirmed predniSONE 10 mg PO TID 09/02/18 09/03/19 oxyCODONE-APAP 10-325MG [Percocet 1 tab PO BID PRN 01/19/19 09/03/19 10-325 mg] Albuterol Sulfate [Ventolin HFA] 2 puff INHALATION RT-QID PRN 09/03/19 09/03/19 Collagenase [Santyl] 1 applic TOPICAL DAILY 09/03/19 09/03/19 Allergies Allergy/AdvReac Type Severity Reaction Status Date / Time No Known Allergies Allergy Verified 09/03/19 19:47 Review of Systems ROS Statement: Those systems with pertinent positive or pertinent negative responses have been documented in the HPI. ROS Other: All systems not noted in ROS Statement are negative. EKG Findings - EKG Comments: EKG Findings:: EKG shows sinus rhythm rate of 74, UT 162, QRS 80, QTC 407 Past Medical History Past Medical History: Coronary Artery Disease (CAD), COPD, Hyperlipidemia, Pneumonia, Rheumatoid Arthritis (RA), Rheumatoid Arthritis (RA) Additional Past Medical History / Comment(s): History of pancreatitis, 2012 past medical record documents viral pericarditis but pt denies, gastritis, has home O2 at HS only but has not been using. Fluid build up rt lung - previous chest tube - pt unsure what it is from, BOTTOM TEETH REMOVED 09-01-18 History of Any Multi-Drug Resistant Organisms: MRSA Date of last positivie culture/infection: 11/23/18 MDRO Source:: KNEE Past Surgical History: Heart Catheterization With Stent, Joint Replacement, Orthopedic Surgery Additional Past Surgical History / Comment(s): Total L knee arthroplasty with a spacer in place, R total shoulder replaced, L ankle ORIF d/t fracture, EGD, left rotator cuff repair. right ankle sx, thoracentesis, chest tube rt lung, LT above the knee amputation Past Anesthesia/Blood Transfusion Reactions: No Reported Reaction Additional Past Anesthesia/Blood Transfusion Reaction / Comment(s): Pt states he has never recieved blood. Date of Last Stent Placement:: 12/10/16 Past Psychological History: No Psychological Hx Reported Smoking Status: Current every day smoker Past Alcohol Use History: None Reported Past Drug Use History: Marijuana - Past Family History Sister(s) Family Medical History: Cancer Additional Family Medical History / Comment(s): pt's father had ra, mother had 16 children was healthy most of her life age 93 from dementia. Mother Family Medical History: Dementia Additional Family Medical History / Comment(s): Mother from dementia at the age of 93 yrs. Father Family Medical History: Rheumatoid Arthritis (RA) General Exam Limitations: no limitations General appearance: alert, in no apparent distress Head exam: Present: atraumatic, normocephalic, normal inspection Eye exam: Present: normal appearance, PERRL, EOMI. Absent: scleral icterus, conjunctival injection, periorbital swelling ENT exam: Present: normal exam, mucous membranes moist Neck exam: Present: normal inspection. Absent: tenderness, meningismus, lymphadenopathy Respiratory exam: Present: normal lung sounds bilaterally. Absent: respiratory distress, wheezes, rales, rhonchi, stridor Cardiovascular Exam: Present: regular rate, normal rhythm, normal heart sounds. Absent: systolic murmur, diastolic murmur, rubs, gallop, clicks GI/Abdominal exam: Present: soft, normal bowel sounds. Absent: distended, tenderness, guarding, rebound, rigid Extremities exam: Present: normal inspection, full ROM, normal capillary refill. Absent: tenderness, pedal edema, joint swelling, calf tenderness Back exam: Present: normal inspection Neurological exam: Present: alert, oriented X3, CN II-XII intact Psychiatric exam: Present: normal affect, normal mood Skin exam: Present: warm, dry, intact, normal color. Absent: rash Course Vital Signs 09/03/19 09/03/19 09/03/19 17:49 18:00 18:10 Temperature 98.6 F Pulse Rate 85 75 75 Respiratory 24 20 22 Rate Blood Pressure 145/101 180/108 168/104 O2 Sat by Pulse 97 96 96 Oximetry 09/03/19 09/03/19 09/03/19 19:00 19:30 20:00 Temperature Pulse Rate 79 82 89 Respiratory 24 20 25 H Rate Blood Pressure 168/109 169/106 174/109 O2 Sat by Pulse 96 97 96 Oximetry 09/03/19 20:28 Temperature Pulse Rate 85 Respiratory 20 Rate Blood Pressure 150/90 O2 Sat by Pulse 97 Oximetry - Reevaluation(s) Reevaluation #1: 09/03/19 20:36 Medical record is reviewed Reevaluation #2: 09/03/19 20:36 Patient is having difficult control pain here in the ER had increased patient's medication dosing twice - Consultations Consultation #1: Spoke with vascular surgery Dr. Mack who will see patient, okay for high- dose heparin currently Consultation #2: Spoke with [facility] exhibitions curator okay for admission Chest Pain MDM - MDM 74 male the ER chest pain of bowel pain patient does have lower extremity DVTs b ilaterally as well as bilateral PEs. Patient is abdominal pain which is acute on chronic will admit for anticoagulation Critical Care Time Critical Care Time: Yes Total Critical Care Time: 31 Disposition Clinical Impression: Bilateral pulmonary embolism, DVT (deep venous thrombosis), Pulmonary embolism, Elevated troponin Disposition: ADMITTED IP TO THIS [facility] Condition: Serious Is patient prescribed a controlled substance at d/c from ED?: No Referrals: Ruthy Montemayor DO [Primary Care Provider] - 1-2 days
[2019-09-03] MEDS ORDERED: MORPHINE SULFATE 4 MG/ML SYRINGE IVP STA ×2 (18:03→19:21)
[2019-09-03 18:30] LABS: Anisocytosis Slight; Basophils % (A) 0 %; Eosinophils % (A) 0 %; HGB 11.4 gm/dL (13.0-17.5); Hypochromasia Marked; Lymphocytes # (A) 0.9 k/uL (1.0-4.8); Lymphocytes % (A) 7 %; MCH 21.3 pg (25.0-35.0); MCHC 29.3 g/dL (31.0-37.0); MCV 72.7 fL (80.0-100.0); Mean Platelet Volume 5.4; Microcytosis Moderate; Monocytes # (A) 0.2 k/uL (0-1.0); Monocytes % (A) 2 %; Neutrophils # (A) 10.9 k/uL (1.3-7.7); Neutrophils % (A) 90 %; Platelet Count 563 k/uL (150-450); RBC 5.37 m/uL (4.30-5.90); RDW 18.2 % (11.5-15.5)
[2019-09-03 18:32] LABS: ALT 52 U/L (21-72); AST 45 U/L (17-59); African American GFR (CKD) >90 (>60 ml/min/1.73 sqM); Albumin 3.4 g/dL (3.5-5.0); Alkaline Phosphatase 103 U/L (38-126); Anion Gap 3 mmol/L; Blood Urea Nitrogen 24 mg/dL (9-20); Calcium 8.8 mg/dL (8.4-10.2); Carbon Dioxide 25 mmol/L (22-30); Chloride 106 mmol/L (98-107); Glucose 167 mg/dL (74-99); Magnesium 1.7 mg/dL (1.6-2.3); Non-African American GFR(CKD) >90 (>60 ml/min/1.73 sqM); Potassium 5.1 mmol/L (3.5-5.1); Sodium 134 mmol/L (137-145); Total Bilirubin 0.4 mg/dL (0.2-1.3)
[2019-09-03 18:48] LABS: INR 0.9 (<1.2); Partial Thromboplastin Time 21.6 sec (22.0-30.0); Prothrombin Time 10.1 sec (9.0-12.0)
[2019-09-03 18:55] LABS: D-Dimer 2.21 mg/L FEU (<0.60)
--- NOTE | 2019-09-03 19:45 | CT ---
EXAMINATION TYPE: CT angio chest contrast and with 3-D reconstruction renderings DATE OF EXAM: 09/03/2019 7:01 PM COMPARISON: Noncontrast CT 01/22/2019 HISTORY: SOB, chest and abdomen pain. Hx cardiac stent. CT DLP: 433.6 mGycm Automated exposure control for dose reduction was used. CONTRAST: CTA scan of the thorax is performed with IV Contrast, patient injected with 100 mL of Isovu e 370, pulmonary embolism protocol. The reconstructions. FINDINGS: LUNGS: The airways are unremarkable. Chronic emphysematous changes are noted. No acute pulmonary proc ess. Pleural spaces are negative. MEDIASTINUM: There is satisfactory enhancement of the pulmonary artery and its branches, with a few s cattered segmental nonocclusive filling defects noted in the left lower lobe and lingula and right mi ddle lobe, in addition to left lower lobar nonocclusive filling defects. These filling defects are c onsistent with nonocclusive bilateral pulmonary emboli. There is no right heart strain evidence. There is mild cardiomegaly, but no pericardial effusion. Prominent left and right coronary calcificat ions noted. No acute aortic findings. No adenopathy. OTHER: No additional significant abnormality is seen. IMPRESSION: BILATERAL NONOCCLUSIVE PULMONARY EMBOLI.
--- NOTE | 2019-09-03 19:57 | CT ---
EXAMINATION TYPE: CT abdomen pelvis w con DATE OF EXAM: 09/03/2019 COMPARISON: 02/07/2017 negative for acute findings. Headache silhouette is not enlarged. Tortuosity of the thoracic aorta is redemonstrated, appearing similar to the prior study HISTORY: SOB, chest and abdomen pain. Hx cardiac stent. CT DLP: 1128 mGycm Automated exposure control for dose reduction was used. TECHNIQUE: Helical acquisition of images was performed from the lung bases through the pelvis. CONTRAST: Performed without Oral Contrast and with IV Contrast, patient injected with 100 mL of Isovu e 370. FINDINGS: LUNG BASES: Redemonstrated nonocclusive left lower lobe are pulmonary emboli noted, as described on C TA chest obtained just prior to the study. VASCULATURE: There are occlusive filling defects consistent with contiguous deep venous thrombus invo lving the entirety of the left common and left external iliac veins, the left common femoral vein and the visualized uppermost left superficial femoral and profunda femoral veins. LIVER/GB: No significant abnormality is appreciated. PANCREAS: No significant abnormality is seen. SPLEEN: No significant abnormality is seen. ADRENALS: No significant abnormality is seen. KIDNEYS: No significant abnormality is seen. FREE AIR: No free air is visualized. RETROPERITONEAL ADENOPATHY: None visualized REPRODUCTIVE ORGANS: No significant abnormality is seen URINARY BLADDER: No significant abnormality is seen. PELVIC ADENOPATHY: None visualized. OSSEOUS STRUCTURES: No significant abnormality is seen. BOWEL: No significant abnormality is seen. IMPRESSION: OCCLUSIVE DEEP VENOUS THROMBUS CONTIGUOUSLY INVOLVING THE LEFT COMMON ILIAC VEIN, LEFT EXTERNAL ILIAC VEIN, LEFT COMMON FEMORAL VEIN AND VISUALIZED SUPERFICIAL AND PROFUNDA FEMORAL VEINS. Results discussed with ordering clinician to ensure intact communications.
[2019-09-03] MEDS ORDERED: HYDROmorphone 1 MG/ML 1 ML SYRINGE IVP STA (20:20)
[2019-09-03] MEDS ORDERED: HEPARIN SODIUM,PORCINE 10,000 UNIT/ML 1 ML VIAL IV ONE (20:30)
[2019-09-03] MEDS ORDERED: LORazepam 2 MG/ML INJ IV PRN (20:30)
[2019-09-03] MEDS ORDERED: HEPARIN SODIUM,PORCINE 5,000 UNIT/ML 1 ML VIAL IV PRN (20:30)
[2019-09-03] MEDS ORDERED: HYDROmorphone 1 MG/ML 1 ML SYRINGE IVP PRN (20:30)
[2019-09-03] MEDS ORDERED: ONDANSETRON 4 MG/2 ML VIAL IVP PRN (20:30)
[2019-09-03] MEDS ORDERED: NITROGLYCERIN SL TABS 0.4 MG TAB SUBLINGUAL PRN (20:30)
[2019-09-03] MEDS: HEPARIN SOD,PORK IN 0.45% NACL 25,000 UNIT in 0.45% NACL 1 250ML.BAG IV SCH (20:40)
[2019-09-03] MEDS ORDERED: ALBUTEROL NEBULIZED 2.5 MG/3 ML INHALATION PRN (22:00)
[2019-09-03] MEDS: oxyCODONE-APAP 10-325MG 1 EACH TAB PO PRN (22:19)
[2019-09-03] MEDS: predniSONE 10 MG TAB PO SCH (22:19)
[2019-09-03 22:24] VITALS: BMI 27.3
[2019-09-04] MEDS ORDERED: ALPRAZolam 0.25 MG TAB PO PRN (00:19)
[2019-09-04] MEDS ORDERED: TEMAZEPAM 15 MG CAP PO PRN (00:19)
[2019-09-04] MEDS: HYDROmorphone 1 MG/ML 1 ML SYRINGE IVP PRN ×6 (02:42→22:51)
[2019-09-04 03:37] LABS: Anisocytosis Slight; Basophils % (A) 0 %; Eosinophils % (A) 0 %; HCT 38.2 % (39.0-53.0); HGB 11.1 gm/dL (13.0-17.5); Hypochromasia Marked; Lymphocytes # (A) 1.8 k/uL (1.0-4.8); Lymphocytes % (A) 17 %; MCHC 28.9 g/dL (31.0-37.0); MCV 72.6 fL (80.0-100.0); Mean Platelet Volume 5.3; Microcytosis Moderate; Monocytes # (A) 0.4 k/uL (0-1.0); Monocytes % (A) 3 %; Neutrophils # (A) 8.7 k/uL (1.3-7.7); Neutrophils % (A) 79 %; Platelet Count 513 k/uL (150-450); RBC 5.26 m/uL (4.30-5.90); RDW 18.1 % (11.5-15.5)
[2019-09-04 04:56] LABS: Cholesterol 166 mg/dL (<200); HDL Cholesterol 79 mg/dL (40-60); LDL Cholesterol,Calculated 69 mg/dL (0-99); Triglycerides 90 mg/dL (<150)
[2019-09-04 06:26] LABS: Prothrombin Time 10.9 sec (9.0-12.0)
[2019-09-04] MEDS ORDERED: PANTOPRAZOLE 40 MG TABLET PO SCH (07:30)
[2019-09-04] MEDS: predniSONE 10 MG TAB PO SCH ×3 (08:35→22:50)
--- NOTE | 2019-09-04 08:37 | P.CON ---
Consult Note - . Consult date: 09/04/19 Assessment/Plan:: Fernando is a 80-year-old male who presented to the emergency room with a history of recurrent/chronic abdominal pain. During workup for this abdominal pain patient did undergo computed tomography scan of his abdomen pelvis which demonstrated left common external iliac as well as left common femoral venous thrombosis. Additionally the patient did undergo computed tomography scan of his chest which demonstrated bilateral pulmonary emboli which is non-obstructive. The patient denies any history of deep venous thrombosis. He is status post left phuip-pzu-odao amputation approximately 3 months ago performed at [facility] secondary to infected knee prosthesis. He denies any shortness of breath although admitted to some chest discomfort approximately 10-14 days ago which has since resolved. He denied any coughing or hemoptysis. He denies any left leg edema. ALLERGIES: Patient has NO KNOWN DRUG ALLERGIES. Past surgical history: Left total knee replacement, explantation of left total knee replacement with placement of spacer, left pyzje-scv-rcyy amputation. Social history: Significant for approximate 20-spmn-rifvz tobacco use although the patient did stop smoking 2-3 years prior. Medications: Prednisone, Percocet, Ventolin, IV heparin at therapeutic doses, Xanax, Dilaudid, Ativan, Zofran, Protonix, and Restoril. Past medical history: Rheumatoid arthritis, dyslipidemia, chronic obstructive port disease, coronary disease, history of pancreatitis, as well as pericarditis. Physical examination: Heart: Regular without murmur. Lungs: Clear bilaterally. Neck: Supple without adenopathy or bruit. Abdomen: Soft with normal bowel sounds to auscultation. There is no palpable hepatosplenomegaly. Extremities: Axillary, brachial and radial pulses are intact in the upper extremities bilaterally. Femoral pulses are intact bilaterally. There is an ihggm-iib-qerb amputation on the left. No thigh edema of any significance is noted. Review of CTA of the abdomen pelvis and chest demonstrates left common and external iliac as well as left common femoral venous thrombus. The iliac vein is dilated consistent with acute thrombotic event. Small subsegmental pulmonary emboli are noted bilaterally. Review of laboratory values demonstrates hemoglobin 11.1 hematocrit of 38.2 with a platelet count of 513. Cell count is 11. Impression: #1: Acute to subacute left iliofemoral deep venous thrombosis possibly associated with his surgical procedure prep disease left hfmag-qsd-bhtg amputation). #2: Small subsegmental bilateral pulmonary emboli. #3: Status post left mzwzz-uyo-gvvr amputation. #4: History of tobacco use. #5: History of rheumatoid arthritis, coronary disease, chronic obstructive pulmonary disease. Recommendation: The patient appears to be tolerating full dose heparin well. I do not appreciate any significant ache edema and do not believe the patient would benefit from thrombolysis were similar venous intervention. Additionally I do not believe the patient would benefit by placement of an IVC filter at this time. Thus I agree with presently sedated therapy would recommend oral anticoagulation for 6 months. Thank you very much for allowing me to produce pain the care of your patient. I trust this letter is useful to you and if I can be of future assistance please feel free to contact me.
[2019-09-04 08:38] LABS: Appearance,Urine Clear (Clear); Bilirubin,Urine Negative (Negative); Blood,Urine Negative (Negative); Color,Urine Light Yellow; Glucose,Urine (UA) Negative (Negative); Ketones,Urine Negative (Negative); Leukocyte Esterase,Urine Negative (Negative); Nitrite,Urine Negative (Negative); Protein,Urine Negative (Negative); Specific Gravity,Urine 1.017 (1.001-1.035); Urobilinogen,Urine <2.0 mg/dL (<2.0)
[2019-09-04] MEDS: oxyCODONE-APAP 10-325MG 1 EACH TAB PO PRN (08:38)
--- NOTE | 2019-09-04 10:08 | HP ---
HISTORY AND PHYSICAL DATE OF SERVICE: 09/03/2019 I am covering for Dr. Steven. CHIEF COMPLAINT: Chest pain, abdominal pain. HISTORY OF PRESENT ILLNESS: This 74-year-old gentleman with a past medical history of multiple medical problems including CAD, COPD, hypertension, hyperlipidemia, rheumatoid arthritis, history of coronary artery disease/ stent being followed by Dr. 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 Currently, the patient is complaining of chest pain which is felt in the anterior part of chest and sometimes radiating to the shoulder and as well as some shortness of breath on exertion. The patient also had some nausea, vomiting. The patient was taking some Percocet at home. Because of lack of improvement, patient came to [facility] and was admitted for further evaluation and treatment. Lab evaluation showed WBC 12, hemoglobin 11.4, and the D- dimer was elevated to 2.21. Troponin 0.120. The EKG showed normal sinus rhythm without any acute abnormality and a chest CTA confirmed evidence of bilateral nonocclusive pulmonary emboli. The patient also had an abdominal pelvis CAT scan which showed evidence of occlusive DVT contiguously involving the left common iliac vein, left external iliac vein, left common femoral vein, and visualized superficial and profunda femoral vein. Patient admitted for further evaluation and treatment. There is no history of fever, rigors. No history of headache, loss of consciousness or seizures. No chest pain, palpitations at this time. The patient also had ulceration of the right toe and left below-knee amputation site. PAST MEDICAL HISTORY: History of CAD, COPD, hypertension, hyperlipidemia, history of rheumatoid arthritis, history of coronary artery disease/ stent. MEDICATIONS: Home medications are: 1. Prednisone 10 mg p.o. t.i.d. 2. Oxycodone 10 mg b.i.d. p.r.n. 3. Santyl 1 application daily. 4. Ventolin HFA 2 puffs q.i.d. p.r.n. ALLERGIES: None. FAMILY HISTORY: History of dementia. SOCIAL HISTORY: History of continued ongoing smoking, history of THC. REVIEW OF SYSTEMS: ENT: No diminished vision. No diminished hearing. CARDIOVASCULAR: No angina. No palpitations. RESPIRATION: No cough. GI no nausea or vomiting. no dysuria or hematuria. NERVOUS SYSTEM: No numbness or weakness. ALLERGY/IMMUNOLOGY: No asthma or hayfever. MUSCULOSKELETAL: As mentioned earlier. HEMATOLOGY/ONCOLOGY: No history of anemia. ENDOCRINE: No history of diabetes or hypothyroidism. CONSTITUTIONAL: As mentioned earlier. ENDOCRINE: As mentioned earlier. CONSTITUTIONAL: As mentioned earlier. DERMATOLOGY: As mentioned earlier. RHEUMATOLOGY as mentioned earlier. PHYSICAL EXAM: Patient is patient is alert, oriented x3. Pulse is blood pressure 117/99, respirations 16, temperature 98.4, pulse ox 98% on room air. HEENT: Conjunctivae normal. Oral mucosa moist. NECK is no jugular venous distention. No carotid bruit. No lymph node enlargement. CARDIOVASCULAR system: S1, S2 muffled. No S3, no S4. RESPIRATION: Breath sounds diminished in the bases. No rhonchi. No crackles. ABDOMEN: Soft, obese, nontender. No mass palpable. LEGS: Left leg above-knee amputation, right leg ulceration present on the right kc. NERVOUS SYSTEM: Higher functions as mentioned. Moves all four limbs. No focal motor or sensory deficits. JOINTS: No active deforming arthropathy. LABS: WBC 12, hemoglobin 11.4. D-dimer 2.25. Sodium is 134. Troponin 0.120. Other findings are noted and reviewed. ASSESSMENT: 1. Acute bilateral pulmonary embolism. 2. Acute deep vein thrombosis of the left leg system extensively involving the left common iliac and left external iliac, left common femoral and superficial and profunda femoral vein. 3. Increased WBC. 4. Multiple bilateral leg ulcers. 5. Anemia, microcytic, probably iron deficiency. 6. Elevated D-dimer with no evidence of pulmonary embolus. 7. Hyponatremia. 8. Troponin 0.120 indeterminate. 9. History of coronary artery disease. 10.Chronic obstructive pulmonary disease. 11.Hypertension. 12.History of rheumatoid arthritis. 13.History of pancreatitis. 14.History of pericarditis per records, viral, possibly. 15.History of coronary artery disease/ stent. 16.History of continued ongoing nicotine dependence. RECOMMENDATIONS AND DISCUSSION: In this 74-year-old gentleman who presented with multiple medical issues, at this time, I recommend to continue the current medications, management and symptomatic treatment. Otherwise, I would recommend high-dose IV steroids. I would also recommend cardiology and vascular surgery evaluations. A 2D echo with Doppler also will be recommended. Other than that, IV heparin high dose is being initiated depending upon the patient's insurance coverage. No anticoagulants may be initiated in a couple days and recommended a short course of treatment up to 3-6 months for this unprovoked episode of DVT. The patient also will require outpatient followup also regarding the above mentioned multiple complex medical issues. Overall prognosis guarded. Discussed at length with the patient and at the bedside. Further recommendations to follow. Dr. Clarence Steven will take over on Friday. MMSILVANOL / CAMILLEN: [id number] /
[2019-09-04 10:25] LABS: African American GFR (CKD) >90 (>60 ml/min/1.73 sqM); Anion Gap 6 mmol/L; Blood Urea Nitrogen 16 mg/dL (9-20); Calcium 8.6 mg/dL (8.4-10.2); Carbon Dioxide 25 mmol/L (22-30); Chloride 105 mmol/L (98-107); Glucose 120 mg/dL (74-99); Non-African American GFR(CKD) >90 (>60 ml/min/1.73 sqM); Potassium 4.5 mmol/L (3.5-5.1); Sodium 136 mmol/L (137-145)
--- NOTE | 2019-09-04 11:07 | P.CRDCN ---
History of Present Illness Consult date: 09/04/19 Requesting physician: Parker Fry Reason for Consult (text): CAD Chief complaint: abdominal and chest discomfort History of present illness: This is a pleasant 74-year-old gentleman who follows with Dr. Khoury in the office, last seen about a year ago. He has a history of coronary artery disease with a catheterization and fibula 2017 which showed mild to moderate disease involving the LAD and vein to 90% occlusion of the RCA at which time he underwent stenting of that vessel. He denies a history of hypertension, hyperlipidemia or diabetes. He denies smoking but later admits to smoking about 4-6 cigarettes daily. He does have a history of COPD. He underwent left knee replacement redo about a year ago subsequently developed an infection and subsequently underwent left [facility] a few months ago. He presented this admission with complaints of abdominal pain which seems to be chronic for him but also had some chest discomfort and slight worsening of his baseline shortness of breath. He's also been complaining of some occasional lightheadedness over the last few days. On admission showed an elevated d-dimer in subsequent CTA of the chest showed bilateral nonocclusive pulmonary emboli. Computed tomography scan of the abdomen and pelvis was done which showed oc clusive deep venous thrombosis contiguously involving the left common iliac vein, left external iliac vein, left common femoral vein and visualized superficial and profunda femoral veins. Troponin levels are minimally elevated at 0.12, 0.57 and 3.01. Upon examination, patient is resting completely bed. He denies further complaints of chest discomfort but still had some epigastric discomfort which is chronic. Past Medical History Past Medical History: Coronary Artery Disease (CAD), COPD, Hyperlipidemia, Pneumonia, Rheumatoid Arthritis (RA), Rheumatoid Arthritis (RA) Additional Past Medical History / Comment(s): History of pancreatitis, 2012 past medical record documents viral pericarditis but pt denies, gastritis, has home O2 at HS only but has not been using. Fluid build up rt lung - previous chest tube - pt unsure what it is from, BOTTOM TEETH REMOVED 09-01-18 History of Any Multi-Drug Resistant Organisms: MRSA Date of last positivie culture/infection: 11/23/18 MDRO Source:: KNEE Past Surgical History: Heart Catheterization With Stent, Joint Replacement, Orthopedic Surgery Additional Past Surgical History / Comment(s): Total L knee arthroplasty with a spacer in place, R total shoulder replaced, L ankle ORIF d/t fracture, EGD, left rotator cuff repair. 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 Date of Last Stent Placement:: 12/10/16 Past Psychological History: No Psychological Hx Reported Additional Psychological History / Comment(s): Patient was a smoker one to one and half packs per day for 40+ years and quit 2 years ago when he had cardiac stents done. He uses a synthetic marijuana at nighttime only for his arthritis to help him sleep. He denies any other street drug use, alcohol use. 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 He lives at home with his . Smoking Status: Current every day smoker Past Alcohol Use History: None Reported Additional Past Alcohol Use History / Comment(s): Patient was a smoker one to one and half packs per day for 40+ years and quit in 2016 when he had cardiac stents done. Past Drug Use History: Marijuana - Past Family History Sister(s) Family Medical History: Cancer Additional Family Medical History / Comment(s): pt's father had ra, mother had 16 children was healthy most of her life age 93 from dementia. Mother Family Medical History: Dementia Additional Family Medical History / Comment(s): Mother from dementia at the age of 93 yrs. Father Family Medical History: Rheumatoid Arthritis (RA) Medications and Allergies Home Medications Medication Instructions Recorded Confirmed Type predniSONE 10 mg PO TID 09/02/18 09/03/19 History oxyCODONE-APAP 10-325MG [Percocet 1 tab PO BID PRN 01/19/19 09/03/19 History 10-325 mg] Albuterol Sulfate [Ventolin HFA] 2 puff INHALATION RT-QID PRN 09/03/19 09/03/19 History Collagenase [Santyl] 1 applic TOPICAL DAILY 09/03/19 09/03/19 History Allergies Allergy/AdvReac Type Severity Reaction Status Date / Time No Known Allergies Allergy Verified 09/03/19 19:47 Physical Exam Vitals: Vital Signs Temp Pulse Pulse Resp BP BP Pulse Ox 09/04/19 08:30 98.1 F 83 18 174/96 96 09/04/19 03:42 98.9 F 85 18 158/98 94 L 09/04/19 00:00 98.2 F 89 18 151/95 92 L 09/03/19 21:39 98.4 F 85 16 171/99 94 L 09/03/19 20:28 85 20 150/90 97 09/03/19 20:00 89 25 H 174/109 96 09/03/19 19:30 82 20 169/106 97 09/03/19 19:00 79 24 168/109 96 09/03/19 18:10 75 22 168/104 96 09/03/19 18:00 75 20 180/108 96 09/03/19 17:49 98.6 F 85 24 145/101 97 Intake and Output 09/03/19 09/04/19 09/04/19 22:59 06:59 14:59 Intake Total 101.445 0 Output Total 750 200 Balance -648.555 -200 Intake: Intake, IV Titration 101.445 Amount Heparin Sod,Pork in 0.45% 101.445 NaCl 25,000 unit In 0.45 % NaCl 1 250ml.bag @ 18 UNITS/KG/HR 14.288 mls/hr IV .[id number] [facility] Rx#: [id number] Oral 0 Output: Urine 750 200 Other: Voiding Method Urinal Urinal Weight 79.379 kg 77.5 kg PHYSICAL EXAMINATION: HEENT: Head is atraumatic, normocephalic. Pupils equal, round. Neck is supple. There is no elevated jugular venous pressure. HEART EXAMINATION: Heart sounds regular, S1 and S2 normal. No murmur or gallop heard. CHEST EXAMINATION: Lungs reveal expiratory wheezing throughout. No chest wall tenderness is noted on palpation or with deep breathing. ABDOMEN: Soft, nontender. Bowel sounds are heard. No organomegaly noted. EXTREMITIES: 2+ peripheral pulses to bilateral upper extremities and right lower extremity with no evidence of peripheral edema. Left AKA noted. Dressings intact to left stump and right kc. NEUROLOGIC patient is awake, alert and oriented x3. . Results 09/04/19 02:58 09/04/19 06:08 Cardiac Enzymes 09/03/19 09/03/19 09/04/19 Range/Units 18:05 18:05 00:27 AST 45 (17-59) U/L Troponin I 0.120 H* 1.570 H* (0.000-0.034) ng/mL 09/04/19 Range/Units 06:08 AST (17-59) U/L Troponin I 3.010 H* (0.000-0.034) ng/mL Coagulation 09/03/19 09/04/19 09/04/19 Range/Units 18:05 02:58 06:08 PT 10.1 10.9 (9.0-12.0) sec APTT 21.6 L 67.7 H (22.0-30.0) sec Lipids 09/04/19 Range/Units 02:58 Triglycerides 90 (<150) mg/dL Cholesterol 166 (<200) mg/dL HDL Cholesterol 79 H (40-60) mg/dL CBC 09/03/19 09/04/19 Range/Units 18:05 02:58 WBC 12.0 H 11.0 H (3.8-10.6) k/uL RBC 5.37 5.26 (4.30-5.90) m/uL Hgb 11.4 L 11.1 L (13.0-17.5) gm/dL Hct 39.0 38.2 L (39.0-53.0) % Plt Count 563 H 513 H (150-450) k/uL Comprehensive Metabolic Panel 09/03/19 09/04/19 Range/Units 18:05 06:08 Sodium 134 L 136 L (137-145) mmol/L Potassium 5.1 4.5 (3.5-5.1) mmol/L Chloride 106 105 (98-107) mmol/L Carbon Dioxide 25 25 (22-30) mmol/L BUN 24 H 16 (9-20) mg/dL Creatinine 0.66 0.65 L (0.66-1.25) mg/dL Glucose 167 H 120 H (74-99) mg/dL Calcium 8.8 8.6 (8.4-10.2) mg/dL AST 45 (17-59) U/L ALT 52 (21-72) U/L Alkaline Phosphatase 103 (38-126) U/L Total Protein 7.0 (6.3-8.2) g/dL Albumin 3.4 L (3.5-5.0) g/dL Current Medications Generic Name Dose Route Start Last Admin Trade Name Freq PRN Reason Stop Dose Admin Albuterol Sulfate 2.5 mg 09/03/19 22:00 Ventolin Nebulized INHALATION RT-QID PRN Shortness Of Breath Alprazolam 0.25 mg 09/04/19 00:19 Xanax PO TID PRN Anxiety Aspirin 81 mg 09/04/19 10:45 Aspirin PO DAILY [facility] Atorvastatin Calcium 80 mg 09/04/19 10:45 Lipitor PO DAILY [facility] Heparin Sodium (Porcine) 0 unit 09/03/19 20:30 Heparin IV PER PROTOCOL PRN Low PTT Protocol Hydromorphone HCl 0.5 mg 09/04/19 00:19 09/04/19 06:44 Dilaudid IVP 0.5 mg Q4HR PRN Administration Pain Heparin Sodium/Sodium Chloride 250 mls @ 14.288 mls/hr 09/03/19 20:30 09/04/19 03:46 25,000 unit/ Sodium Chloride IV 18 units/kg/hr .[id number] SURYA 14.288 mls/hr Titration Protocol 18 UNITS/KG/HR Influenza Virus Vaccine Quadrival 60 mcg 09/04/19 12:00 Flulaval Vaccine 4259-1002 IM 09/04/19 12:01 .ONCE ONE Lorazepam 1 mg 09/03/19 20:30 Ativan IV Q4HR PRN Anxiety Metoprolol Tartrate 25 mg 09/04/19 10:45 Lopressor PO BID [facility] Nitroglycerin 0.4 mg 09/03/19 20:30 Nitrostat SUBLINGUAL Q5M PRN Chest Pain Ondansetron HCl 4 mg 09/03/19 20:30 Zofran IVP Q6HR PRN Nausea And Vomiting Oxycodone/Acetaminophen 1 each 09/03/19 22:00 09/04/19 08:38 Percocet 10-325 PO 1 each BID PRN Administration Pain Pantoprazole Sodium 40 mg 09/04/19 07:30 09/04/19 06:44 Protonix PO Not Given [id number]-[id number] [facility] Pneumococcal Polyvalent Vaccine 25 mcg 09/04/19 12:00 Pneumococcal Vacc-Pneumovax 23 IM 09/04/19 12:01 .ONCE ONE Prednisone 10 mg 09/03/19 22:00 09/04/19 08:35 PO 10 mg TID SURYA Administration Temazepam 15 mg 09/04/19 00:19 Restoril PO HS PRN Insomnia Intake and Output 09/03/19 09/04/19 09/04/19 22:59 06:59 14:59 Intake Total 101.445 0 Output Total 750 200 Balance -648.555 -200 Intake: Intake, IV Titration 101.445 Amount Heparin Sod,Pork in 0.45% 101.445 NaCl 25,000 unit In 0.45 % NaCl 1 250ml.bag @ 18 UNITS/KG/HR 14.288 mls/hr IV .[id number] [facility] Rx#: [id number] Oral 0 Output: Urine 750 200 Other: Voiding Method Urinal Urinal Weight 79.379 kg 77.5 kg 09/04/19 02:58 09/04/19 06:08 EKG Interpretations (text) Sinus rhythm Assessment and Plan Assessment: #1 bilateral PE with extensive left DVTs #2 elevated troponins, likely secondary to oxygen supply and demand mismatch due to PE #3 CAD with prior stenting of the RCA and known mild to moderate disease involving the LAD #4 nicotine dependence #5 COPD Plan: From cardiology's perspective, troponin elevation likely secondary to PE is however significant underlying CAD cannot be totally excluded. We will obtain a 2-D echo with Doppler. We will add aspirin 81 mg by mouth daily as well as beta lisa and a statin. From our standpoint, patient may be switched to oral anticoagulation. Will continue to follow the patient and provide further recommendations accordingly. BOARD LAYER note has been reviewed, I agree with a documented findings and plan of care. Patient was seen and examined.
[2019-09-04] MEDS: METOPROLOL TARTRATE 25 MG TAB PO SCH ×2 (11:08→22:50)
[2019-09-04] MEDS: ASPIRIN 81 MG PO SCH (11:08)
[2019-09-04] MEDS: ATORVASTATIN 80 MG TAB PO SCH (11:08)
[2019-09-04] MEDS ORDERED: IPRATROPIUM-ALBUTEROL 3 ML NEB INHALATION PRN (11:10)
[2019-09-04 11:48] LABS: Magnesium 1.8 mg/dL (1.6-2.3)
[2019-09-04] MEDS ORDERED: Magnesium Replacement Protocol 1 EACH MISC MISCELLANE PRN (11:52)
[2019-09-04] MEDS ORDERED: PNEUMOCOCCAL VACC-PNEUMOVAX 23 25 MCG/0.5 ML VIAL IM ONE (12:00)
[2019-09-04] MEDS ORDERED: INFLUENZA VACCINE (6 MOS+) 60 MCG/0.5 ML SYRINGE IM ONE (12:00)
[2019-09-04] MEDS: IPRATROPIUM-ALBUTEROL 3 ML NEB INHALATION SCH ×3 (12:04→19:56)
[2019-09-04] MEDS: MAGNESIUM SULFATE-D5W PMX 1 GM in DEXTROSE/WATER 1 100ML.BAG IVPB SCH ×2 (12:13→13:30)
[2019-09-04] MEDS: HEPARIN SOD,PORK IN 0.45% NACL 25,000 UNIT in 0.45% NACL 1 250ML.BAG IV SCH (13:29)
--- NOTE | 2019-09-04 13:53 | ECHOF ---
Referral Reason:[facility] MEASUREMENTS -------- HEIGHT: 170.2 cm WEIGHT: 71.7 kg BP: 158/98 RVIDd: 3.3 cm (< 3.3) IVSd: 1.1 cm (0.6 - 1.1) LVIDd: 4.1 cm (3.9 - 5.3) LVPWd: 1.1 cm (0.6 - 1.1) IVSs: 1.3 cm LVIDs: 3.0 cm LVPWs: 1.4 cm LA Diam: 2.9 cm (2.7 - 3.8) Ao Diam: 3.0 cm (2.0 - 3.7) AV Cusp: 1.7 cm (1.5 - 2.6) LA Diam: 3.3 cm (2.7 - 3.8) MV EXCURSION: 13.536 mm (> 18.000) MV EF SLOPE: 47 mm/s (70 - 150) EPSS: 0.5 cm MV E Laurent: 0.35 m/s MV DecT: 288 ms MV A Laurent: 0.76 m/s MV E/A Ratio: 0.45 RAP: 5.00 mmHg RVSP: 13.49 mmHg TAPSE: 21.02 mm FINDINGS -------- Sinus rhythm. This was a techncally difficult study with suboptimal views, , Lumason utilized for enhancement of im ages. The left ventricular size is normal. Overall left ventricular systolic function is low-normal with, an EF between 50 - 55 %. Basal inferior LV wall motion is hypokinetic. The right ventricle is normal in size. The left atrial size is normal. The right atrial size is normal. 5.0mg OF Lumason UTLIZED: 2 OR MORE WALL SEGMENTS NOT VISUALIZED. There is mild aortic valve sclerosis. There is no evidence of aortic regurgitation. Mild mitral annular calcification present. Mild mitral regurgitation is present. Mild tricuspid regurgitation present. Right ventricular systolic pressure is normal at < 35 mmHg. There is no evidence of pulmonary hypertension. The pulmonic valve was not well visualized. The aortic root size is normal. There is no pericardial effusion. CONCLUSIONS -------- 1. Sinus rhythm. 2. This was a techncally difficult study with suboptimal views, , Lumason utilized for enhancement of images. 3. The left ventricular size is normal. 4. Overall left ventricular systolic function is low-normal with, an EF between 50 - 55 %. 5. Basal inferior LV wall motion is hypokinetic. 6. The left atrial size is normal. 7. 5.0mg OF Lumason UTLIZED: 2 OR MORE WALL SEGMENTS NOT VISUALIZED. 8. There is mild aortic valve sclerosis. 9. Mild mitral annular calcification present. 10. Mild mitral regurgitation is present. 11. Mild tricuspid regurgitation present. 12. Right ventricular systolic pressure is normal at < 35 mmHg. 13. The pulmonic valve was not well visualized. 14. The aortic root size is normal. 15. There is no pericardial effusion. BRIM FLEXER: Chanelle Edwards RDCS
--- NOTE | 2019-09-04 20:02 | PN ---
PROGRESS NOTE DATE OF SERVICE: 09/04/2019 I am covering for Dr. Steven. This 74-year-old gentleman admitted with chest pain found to have bilateral pulmonary embolism. Patient also had significant DVT of the iliac system also. The patient is started on IV heparin. The troponins elevation was thought to be secondary to pulmonary embolism by Cardiology. 2 D echo with Doppler was also done which showed ejection fraction 50-55 percent and some basal inferior left wall hypokinesis also noted. The patient being closely monitored. Vascular surgery Dr. Mack recommended continue with IV heparin and thrombolysis was thought to be noted. Kersey option at this time. No chest pain. No palpitations. No fever. PAST MEDICAL HISTORY: Reviewed. REVIEW OF SYSTEMS: Cardiovascular: As mentioned earlier. Respiratory as mentioned earlier. GI no nausea or vomiting. : No dysuria. Central nervous system: No numbness or weakness. CURRENT MEDICATIONS: Reviewed and include: 1. DuoNeb q.i.d. and p.r.n. 2. Xanax 0.25 t.i.d. 3. Aspirin 81 mg daily. 4. Lipitor 80 mg. 5. Heparin b.i.d. 6. Dilaudid 0.5 q.4 p.r.n. 7. Ativan p.r.n. 8. Lopressor. 9. Nitrostat. 10.Zofran. 11.Percocet. 12.Protonix. 13.Restoril. PHYSICAL EXAM: Patient is alert, oriented x2. Pulse 85. Blood pressure 166/95, respiration 18, temperature normal, pulse ox 94% on room air. HEENT: Conjunctivae normal. Oral mucosa moist. NECK is no jugular venous distention. No carotid bruit. No lymph node enlargement. CARDIOVASCULAR: S1, S2 muffled. RESPIRATIONS: Breath sounds diminished in the bases. No rhonchi. No crackles. ABDOMEN: Soft. Nontender. No mass palpable. LEGS: Right leg ulceration. Left leg above-knee amputation. NERVOUS SYSTEM: No focal deficits. LABS: At this time, WBC 11, hemoglobin is 11.1, and D-dimer is 2.1. Sodium 136 and troponins 3.0301. ASSESSMENT: 1. Acute bilateral pulmonary embolism. 2. Acute deep vein thrombosis of the left leg system extensively involving the left common iliac and left external iliac, left common femoral, superficial and profunda femoral veins. 3. Elevated troponin up to 3, possibly indicating supply demand mismatch or secondary to pulmonary embolism. 4. Rule out acute non ST-segment elevation myocardial infarction. 5. Multiple bilateral leg ulcers. 6. Anemia microcytic, possibly iron deficiency. 7. Elevated D-dimer with no evidence of pulmonary embolism. 8. Hyponatremia. 9. History of coronary artery disease. 10.Chronic obstructive pulmonary disease. 11.Hypertension. 12.History of rheumatoid arthritis. 13.History of pancreatitis. 14.History of pericarditis, previous records viral. 15.History of coronary artery disease/stent. 16.History of continued ongoing nicotine dependence. RECOMMENDATIONS AND DISCUSSION: This 74-year-old gentleman who presented with multiple complex medical issues, we will monitor the patient closely, continue the current medications, symptomatic treatment. Otherwise, continue with IV heparin. Continue the antiplatelet agents. Continue the rest of medications. Guarded prognosis because of multiple complex medical issues. Further recommendations to follow. See orders for details. Follow the patient closely with multiple consultants. MMLYLE / IJN: [id number] /
[2019-09-04] MEDS: PANTOPRAZOLE 40 MG/10 ML VIAL IVP SCH (22:50)
[2019-09-05] MEDS: HYDROmorphone 1 MG/ML 1 ML SYRINGE IVP PRN ×5 (03:07→19:58)
[2019-09-05 06:38] LABS: Anisocytosis Slight; Basophils # (A) 0.1 k/uL (0-0.2); Basophils % (A) 0 %; Eosinophils % (A) 0 %; HCT 38.9 % (39.0-53.0); HGB 11.3 gm/dL (13.0-17.5); Hypochromasia Marked; Lymphocytes # (A) 2.1 k/uL (1.0-4.8); Lymphocytes % (A) 17 %; MCH 21.4 pg (25.0-35.0); MCHC 29.1 g/dL (31.0-37.0); MCV 73.5 fL (80.0-100.0); Mean Platelet Volume 5.4; Microcytosis Moderate; Monocytes # (A) 0.4 k/uL (0-1.0); Monocytes % (A) 3 %; Neutrophils # (A) 9.6 k/uL (1.3-7.7); Neutrophils % (A) 78 %; Platelet Count 577 k/uL (150-450); RBC 5.29 m/uL (4.30-5.90); WBC 12.2 k/uL (3.8-10.6)
[2019-09-05 06:45] LABS: Partial Thromboplastin Time 60.1 sec (22.0-30.0); Prothrombin Time 10.3 sec (9.0-12.0)
[2019-09-05 06:49] LABS: African American GFR (CKD) >90 (>60 ml/min/1.73 sqM); Anion Gap 6 mmol/L; Blood Urea Nitrogen 16 mg/dL (9-20); Calcium 8.5 mg/dL (8.4-10.2); Carbon Dioxide 28 mmol/L (22-30); Chloride 104 mmol/L (98-107); Glucose 122 mg/dL (74-99); Magnesium 2.2 mg/dL (1.6-2.3); Non-African American GFR(CKD) >90 (>60 ml/min/1.73 sqM); Potassium 5.1 mmol/L (3.5-5.1); Sodium 138 mmol/L (137-145)
[2019-09-05] MEDS: HEPARIN SOD,PORK IN 0.45% NACL 25,000 UNIT in 0.45% NACL 1 250ML.BAG IV SCH (06:52)
--- NOTE | 2019-09-05 07:14 | XR ---
EXAMINATION TYPE: XR chest 1V portable DATE OF EXAM: 09/05/2019 Comparison: 01/22/2019 Clinical History: 74-year-old male CHF Findings: Reverse right total shoulder arthroplasty partially visualized. Heart borderline enlarged. Diffuse in terstitial densities. Patchy bibasilar opacities. Possible trace left effusion given blunted costophr enic angle. Impression: 1. Borderline cardiomegaly with diffuse interstitial changes. Findings may reflect CHF with mild pulm onary vascular congestion. 2. Mild patchy bibasilar atelectasis. Possible trace left effusion.
[2019-09-05] MEDS: ASPIRIN 81 MG PO SCH (08:41)
[2019-09-05] MEDS: PANTOPRAZOLE 40 MG/10 ML VIAL IVP SCH (08:41)
[2019-09-05] MEDS: predniSONE 10 MG TAB PO SCH ×3 (08:41→19:58)
[2019-09-05] MEDS: oxyCODONE-APAP 10-325MG 1 EACH TAB PO PRN (08:41)
[2019-09-05] MEDS: ATORVASTATIN 80 MG TAB PO SCH (08:41)
[2019-09-05] MEDS: METOPROLOL TARTRATE 25 MG TAB PO SCH ×2 (08:41→19:58)
[2019-09-05] MEDS: IPRATROPIUM-ALBUTEROL 3 ML NEB INHALATION SCH ×3 (08:45→19:39)
--- NOTE | 2019-09-05 08:53 | P.CONS ---
History of Present Illness - Reason for Consult Consult date: 09/04/19 Bilateral leg wounds Requesting physician: Parker Fry - Chief Complaint Chest pain 1 day - History of Present Illness Patient is a 74-year-old male with a past medical history significant for left knee infection failing medical therapy patient is status post left [id number] amputation done at [facility] about 3 months ago patient presented to the ER at [facility] with a chief complaints of left- sided chest pain that apparently started the day he presented to the hospital patient described the pain to be more of a shop in nature intensity about 5-10 and no radiation with associated shortness of breath no cough or hemoptysis. Also blurring of some nausea but no abdominal pain and no diarrhea during the workup the patient was noticed to have a PE and also noticed to have left iliofemoral DVT nonocclusive the patient has been started on anticoagulation and has been admitted to the hospital the patient did have a nonhealing wound to his left AKA stump last few months and also have a wound on the right anterior kc for the last few weeks for the patient to follow at [facility] wound care center at the current local wound care has been weekly debridement and wound care center and Silvadene cream, i.e. was asked to see the patient regarding management of these wound during his inpatient hospital stay. Patient currently denies having any pain to the left AKA stump wound area currently withthickened swelling redness or any foul-smelling drainage from his left AKA wound\the patient right leg wound which is traumatic and has been there for couple of weeks now patient currently denies having any pain to the right leg wound area there is no surrounding swelling redness or any foul-smelling drainage Review of Systems Positive point has been mentioned in the HPI rest of the systems are negative Past Medical History Past Medical History: Coronary Artery Disease (CAD), COPD, Hyperlipidemia, Pneumonia, Rheumatoid Arthritis (RA), Rheumatoid Arthritis (RA) Additional Past Medical History / Comment(s): History of pancreatitis, 2012 past medical record documents viral pericarditis but pt denies, gastritis, has home O2 at HS only but has not been using. Fluid build up rt lung - previous chest tube - pt unsure what it is from, BOTTOM TEETH REMOVED 09-01-18 History of Any Multi-Drug Resistant Organisms: MRSA Year Discovered:: 11/23/18 MDRO Source:: KNEE Past Surgical History: Heart Catheterization With Stent, Joint Replacement, Orthopedic Surgery Additional Past Surgical History / Comment(s): Total L knee arthroplasty with a spacer in place, R total shoulder replaced, L ankle ORIF d/t fracture, EGD, left rotator cuff repair. right ankle sx, thoracentesis, chest tube rt lung, LT above the knee amputation -2018 Past Anesthesia/Blood Transfusion Reactions: No Reported Reaction Additional Past Anesthesia/Blood Transfusion Reaction / Comm: Pt states he has never recieved blood. Date of Last Stent Placement:: 12/10/16 Past Psychological History: No Psychological Hx Reported Additional Psychological History / Comment(s): Patient was a smoker one to one and half packs per day for 40+ years and quit 2 years ago when he had cardiac stents done. He uses a synthetic marijuana at nighttime only for his arthritis to help him sleep. He denies any other street drug use, alcohol use. 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 He lives at home with his . Smoking Status: Current every day smoker Past Alcohol Use History: None Reported Additional Past Alcohol Use History / Comment(s): Patient was a smoker one to one and half packs per day for 40+ years and quit in 2016 when he had cardiac stents done. Past Drug Use History: Marijuana - Past Family History Sister(s) Family Medical History: Cancer Additional Family Medical History / Comment(s): pt's father had ra, mother had 16 children was healthy most of her life age 93 from dementia. Mother Family Medical History: Dementia Additional Family Medical History / Comment(s): Mother from dementia at the age of 93 yrs. Father Family Medical History: Rheumatoid Arthritis (RA) Medications and Allergies Home Medications Medication Instructions Recorded Confirmed Type predniSONE 10 mg PO TID 09/02/18 09/03/19 History oxyCODONE-APAP 10-325MG [Percocet 1 tab PO BID PRN 01/19/19 09/03/19 History 10-325 mg] Albuterol Sulfate [Ventolin HFA] 2 puff INHALATION RT-QID PRN 09/03/19 09/03/19 History Collagenase [Santyl] 1 applic TOPICAL DAILY 09/03/19 09/03/19 History Allergies Allergy/AdvReac Type Severity Reaction Status Date / Time No Known Allergies Allergy Verified 09/03/19 19:47 Physical Exam Vitals: Vital Signs Temp Pulse Pulse Resp BP BP Pulse Ox 09/04/19 12:06 87 09/04/19 11:05 85 18 166/95 95 09/04/19 08:30 98.1 F 83 18 174/96 96 09/04/19 03:42 98.9 F 85 18 158/98 94 L 09/04/19 00:00 98.2 F 89 18 151/95 92 L 09/03/19 21:39 98.4 F 85 16 171/99 94 L 09/03/19 20:28 85 20 150/90 97 09/03/19 20:00 89 25 H 174/109 96 09/03/19 19:30 82 20 169/106 97 09/03/19 19:00 79 24 168/109 96 09/03/19 18:10 75 22 168/104 96 09/03/19 18:00 75 20 180/108 96 09/03/19 17:49 98.6 F 85 24 145/101 97 Intake and Output 09/03/19 09/04/19 09/04/19 22:59 06:59 14:59 Intake Total 101.445 0 Output Total 750 200 Balance -648.555 -200 Intake: Intake, IV Titration 101.445 Amount Heparin Sod,Pork in 0.45% 101.445 NaCl 25,000 unit In 0.45 % NaCl 1 250ml.bag @ 18 UNITS/KG/HR 14.288 mls/hr IV .[id number] [facility] Rx#: [id number] Oral 0 Output: Urine 750 200 Other: Voiding Method Urinal Urinal Weight 79.379 kg 77.5 kg GENERAL DESCRIPTION: An elderly male lying in bed, no distress. No tachypnea or accessory muscle of respiration use. HEENT: Shows Pallor , no scleral icterus. Oral mucous membrane is dry. No pharyngeal erythema or thrush NECK: Trachea central, no thyromegaly. LUNGS: Unlabored breathing. Clear to auscultation anteriorly. No wheeze or crackle. HEART: S1, S2, regular rate and rhythm. No loud murmur ABDOMEN: Soft, no tenderness , guarding or rigidity, no organomegaly EXTREMITIES: Right AKA stump wound base with mild slough tissue no surrounding swelling redness or any foul-smelling drainage Right anterior leg wound base did have slough tissue with no surrounding swelling redness or any foul-smelling drainage SKIN: No rash, no masses palpable. NEUROLOGICAL: The patient is awake, alert, oriented x3, mood and affect normal. Results CBC & Chem 7: 09/05/19 05:30 09/05/19 05:30 Labs: Abnormal Lab Results - Last 24 Hours (Table) 09/03/19 09/03/19 09/03/19 Range/Units 18:05 18:05 18:05 WBC 12.0 H (3.8-10.6) k/uL Hgb 11.4 L (13.0-17.5) gm/dL Hct (39.0-53.0) % MCV 72.7 L (80.0-100.0) fL MCH 21.3 L (25.0-35.0) pg MCHC 29.3 L (31.0-37.0) g/dL RDW 18.2 H (11.5-15.5) % Plt Count 563 H (150-450) k/uL Neutrophils # 10.9 H (1.3-7.7) k/uL Lymphocytes # 0.9 L (1.0-4.8) k/uL APTT 21.6 L (22.0-30.0) sec D-Dimer 2.21 H (<0.60) mg/L FEU Sodium 134 L (137-145) mmol/L BUN 24 H (9-20) mg/dL Creatinine (0.66-1.25) mg/dL Glucose 167 H (74-99) mg/dL Troponin I (0.000-0.034) ng/mL Albumin 3.4 L (3.5-5.0) g/dL HDL Cholesterol (40-60) mg/dL 09/03/19 09/04/19 09/04/19 Range/Units 18:05 00:27 02:58 WBC (3.8-10.6) k/uL Hgb (13.0-17.5) gm/dL Hct (39.0-53.0) % MCV (80.0-100.0) fL MCH (25.0-35.0) pg MCHC (31.0-37.0) g/dL RDW (11.5-15.5) % Plt Count (150-450) k/uL Neutrophils # (1.3-7.7) k/uL Lymphocytes # (1.0-4.8) k/uL APTT 67.7 H (22.0-30.0) sec D-Dimer (<0.60) mg/L FEU Sodium (137-145) mmol/L BUN (9-20) mg/dL Creatinine (0.66-1.25) mg/dL Glucose (74-99) mg/dL Troponin I 0.120 H* 1.570 H* (0.000-0.034) ng/mL Albumin (3.5-5.0) g/dL HDL Cholesterol (40-60) mg/dL 09/04/19 09/04/19 09/04/19 Range/Units 02:58 02:58 06:08 WBC 11.0 H (3.8-10.6) k/uL Hgb 11.1 L (13.0-17.5) gm/dL Hct 38.2 L (39.0-53.0) % MCV 72.6 L (80.0-100.0) fL MCH 21.0 L (25.0-35.0) pg MCHC 28.9 L (31.0-37.0) g/dL RDW 18.1 H (11.5-15.5) % Plt Count 513 H (150-450) k/uL Neutrophils # 8.7 H (1.3-7.7) k/uL Lymphocytes # (1.0-4.8) k/uL APTT (22.0-30.0) sec D-Dimer (<0.60) mg/L FEU Sodium (137-145) mmol/L BUN (9-20) mg/dL Creatinine (0.66-1.25) mg/dL Glucose (74-99) mg/dL Troponin I 3.010 H* (0.000-0.034) ng/mL Albumin (3.5-5.0) g/dL HDL Cholesterol 79 H (40-60) mg/dL 09/04/19 Range/Units 06:08 WBC (3.8-10.6) k/uL Hgb (13.0-17.5) gm/dL Hct (39.0-53.0) % MCV (80.0-100.0) fL MCH (25.0-35.0) pg MCHC (31.0-37.0) g/dL RDW (11.5-15.5) % Plt Count (150-450) k/uL Neutrophils # (1.3-7.7) k/uL Lymphocytes # (1.0-4.8) k/uL APTT (22.0-30.0) sec D-Dimer (<0.60) mg/L FEU Sodium 136 L (137-145) mmol/L BUN (9-20) mg/dL Creatinine 0.65 L (0.66-1.25) mg/dL Glucose 120 H (74-99) mg/dL Troponin I (0.000-0.034) ng/mL Albumin (3.5-5.0) g/dL HDL Cholesterol (40-60) mg/dL Microbiology - Last 24 Hours (Table) 09/04/19 06:02 Anaerobic Culture - Preliminary Thigh - Left 09/04/19 06:04 Anaerobic Culture - Preliminary Leg - Right 09/04/19 06:04 Wound Culture - Preliminary Thigh - Left 09/04/19 06:02 Wound Culture - Preliminary Leg - Right Assessment and Plan Assessment: 1-patient with left above-knee amputee stump wound chronic nonhealing since his left [id number] amputation done at [facility] patient wound base did have a minimal slough tissue however no evidence of any secondary cellulitis would recommend local wound care 2-right leg wound traumatic currently did have slough tissue but there is no secondary cellulitis recommend local wound care (1) Wound of left leg Current Visit: Yes Status: Acute Code(s): S81.802A - UNSPECIFIED OPEN WOUND, LEFT LOWER LEG, INITIAL ENCOUNTER SNOMED Code(s): 327278757 (2) Wound of right leg Current Visit: Yes Status: Acute Code(s): S81.801A - UNSPECIFIED OPEN WOUND, RIGHT LOWER LEG, INITIAL ENCOUNTER SNOMED Code(s): 495887164 Plan: 1-local wound care to the right AKA stump with medahoney followed by moist rené ssing to be changed daily 2-local wound care to the right leg wound with medahoney followed by moist dressing to be changed daily 3-no need for systemic antibiotic therapy We will follow on clinical condition and cultures to further adjust medication if needed Thank you for this consultation will follow this patient with you
--- NOTE | 2019-09-05 10:03 | P.PN ---
Subjective Progress Note Date: 09/05/19 Principal diagnosis: PE, DVT This is a pleasant 74-year-old gentleman who follows with Dr. Khoury in the office, last seen about a year ago. He has a history of coronary artery disease with a catheterization and fibula 2017 which showed mild to moderate disease involving the LAD and vein to 90% occlusion of the RCA at which time he underwent stenting of that vessel. He denies a history of hypertension, hyperlipidemia or diabetes. He denies smoking but later admits to smoking about 4-6 cigarettes daily. He does have a history of COPD. He underwent left knee replacement redo about a year ago subsequently developed an infection and subsequently underwent left [facility] a few months ago. He presented this admission with complaints of abdominal pain which seems to be chronic for him but also had some chest discomfort and slight worsening of his baseline shortness of breath. He's also been complaining of some occasional lightheadedness over the last few days. On admission showed an elevated d-dimer in subsequent CTA of the chest showed bilateral nonocclusive pulmonary emboli. Computed tomography scan of the abdomen and pelvis was done which showed occlusive deep venous thrombosis contiguously involving the left common iliac vein, left external iliac vein, left common femoral vein and visualized superficial and profunda femoral veins. Troponin levels are minimally elevated at 0.12, 0.57 and 3.01. Upon examination, patient is resting completely bed. He denies further complaints of chest discomfort but still had some epigastric discomfort which is chronic. 09/05/19 The patient was seen and examined this morning resting comfortable in bed. He denies further complaints of chest discomfort and has no abdominal discomfort this morning. He continues on IV heparin. Lab in shows stable hemoglobin as well as stable BUN and creatinine. Echocardiogram with contrast done yesterday showed low normal LV systolic function with ejection fraction between 50-55% with basal inferior LV wall hypokinesis, normal RV size, mild MR, mild TR and RVSP of less than 35 mmHg. Objective - Vital Signs Vital signs: Vital Signs Temp 98.6 F 09/05/19 08:40 Pulse 96 09/05/19 08:54 Resp 16 09/05/19 08:40 BP 140/71 09/05/19 08:40 Pulse Ox 98 09/05/19 08:40 Intake & Output 09/04/19 09/05/19 09/05/19 18:59 06:59 18:59 Intake Total 388.832 248.373 Output Total 550 850 350 Balance -161.168 -601.627 -350 Weight 75.8 kg Intake: Intake, IV Titration 338.832 248.373 Amount Heparin Sod,Pork in 0.45% 138.832 248.373 NaCl 25,000 unit In 0.45 % NaCl 1 250ml.bag @ 18 UNITS/KG/HR 14.288 mls/hr IV .[id number] [facility] Rx#: [id number] Magnesium Sulfate-D5w Pmx 200 1 gm In Dextrose/Water 1 100ml.bag @ 100 mls/hr IVPB Q1H [facility] Rx#: [id number] Oral 50 Output: Urine 550 850 350 Other: Voiding Method Urinal Urinal # Voids 1 - Exam PHYSICAL EXAMINATION: HEENT: Head is atraumatic, normocephalic. Pupils equal, round. Neck is supple. There is no elevated jugular venous pressure. HEART EXAMINATION: Heart sounds regular, S1 and S2 normal. No murmur or gallop heard. CHEST EXAMINATION: Lungs reveal expiratory wheezing throughout. No chest wall tenderness is noted on palpation or with deep breathing. ABDOMEN: Soft, nontender. Bowel sounds are heard. No organomegaly noted. EXTREMITIES: 2+ peripheral pulses to bilateral upper extremities and right lower extremity with no evidence of peripheral edema. Left AKA noted. Dressings intact to left stump and right kc. NEUROLOGIC patient is awake, alert and oriented x3. - Labs CBC & Chem 7: 09/05/19 05:30 09/05/19 05:30 Labs: Abnormal Lab Results - Last 24 Hours (Table) 09/04/19 09/05/19 09/05/19 Range/Units 06:08 05:30 05:30 WBC 12.2 H (3.8-10.6) k/uL Hgb 11.3 L (13.0-17.5) gm/dL Hct 38.9 L (39.0-53.0) % MCV 73.5 L (80.0-100.0) fL MCH 21.4 L (25.0-35.0) pg MCHC 29.1 L (31.0-37.0) g/dL RDW 18.0 H (11.5-15.5) % Plt Count 577 H (150-450) k/uL Neutrophils # 9.6 H (1.3-7.7) k/uL APTT 60.1 H (22.0-30.0) sec Sodium 136 L (137-145) mmol/L Creatinine 0.65 L (0.66-1.25) mg/dL Glucose 120 H (74-99) mg/dL 09/05/19 Range/Units 05:30 WBC (3.8-10.6) k/uL Hgb (13.0-17.5) gm/dL Hct (39.0-53.0) % MCV (80.0-100.0) fL MCH (25.0-35.0) pg MCHC (31.0-37.0) g/dL RDW (11.5-15.5) % Plt Count (150-450) k/uL Neutrophils # (1.3-7.7) k/uL APTT (22.0-30.0) sec Sodium (137-145) mmol/L Creatinine (0.66-1.25) mg/dL Glucose 122 H (74-99) mg/dL Microbiology - Last 24 Hours (Table) 09/04/19 06:02 Gram Stain - Preliminary Leg - Right Wound Culture - Preliminary 09/04/19 06:04 Gram Stain - Preliminary Thigh - Left Wound Culture - Preliminary 09/04/19 06:02 Anaerobic Culture - Preliminary Thigh - Left 09/04/19 06:04 Anaerobic Culture - Preliminary Leg - Right Assessment and Plan Assessment: #1 bilateral PE with extensive left DVTs #2 elevated troponins, likely secondary to oxygen supply and demand mismatch due to PE #3 CAD with prior stenting of the RCA and known mild to moderate disease involving the LAD #4 nicotine dependence #5 COPD Plan: From cardiology's perspective, continue aspirin, atorvastatin, and metoprolol. We will discontinue IV heparin and start the patient on Xarelto 15 mg by mouth twice a day for 21 days followed by 20 mg by mouth daily. Will continue to follow the patient and provide further recommendations accordingly. SHORE WORKER note has been reviewed, I agree with a documented findings and plan of care. Patient was seen and examined.
[2019-09-05] MEDS: RIVAROXABAN 15 MG TAB PO SCH ×2 (11:02→17:23)
--- NOTE | 2019-09-05 14:58 | PN ---
PROGRESS NOTE DATE OF SERVICE: 09/05/2019. I am covering for Dr. Steven. This 74-year-old gentleman, admitted with chest pain, was found to have bilateral pulmonary embolism. The patient also had significant DVT of the iliac system. The troponins elevated indicating possible acute non ST-segment elevation SC infarction versus supply demand mismatch related to pulmonary embolism, but however the 2D echo did not show significant RV strain at this point. The patient is not significantly short of breath at rest. Patient being closely monitored. The heparin is being transitioned to oral Xarelto at this time. No chest pain. No palpitations. PAST MEDICAL HISTORY: Reviewed. REVIEW OF SYSTEMS: Cardiovascular system: As mentioned earlier. RESPIRATORY: As mentioned earlier. GI no nausea or vomiting. : No dysuria. CENTRAL NERVOUS SYSTEM: No numbness or weakness. CURRENT MEDICATIONS: Reviewed and include: 1. DuoNeb q.i.d. and p.r.n. 2. Xanax 0.5 t.i.d. 3. Aspirin 81 mg daily. 4. Lipitor 80 mg daily. 5. Dilaudid 0.5 q.4 hours. 6. Ativan 1 mg p.r.n. 7. Lopressor. 8. Magnesium replacement protocols. 9. Zofran p.r.n. 10.Percocet. 11.Protonix. 12.Prednisone. 13.Xarelto. 14.Restoril. 15.Doses reviewed. PHYSICAL EXAM: Patient is alert, oriented x3. Pulse is 83. Blood pressure 148/71, respirations 16, temperature 98.2, pulse ox 98% on room air. HEENT: Conjunctivae normal. Oral mucosa moist. NECK is no jugular venous distention. No carotid bruit. No lymph node enlargement. CARDIOVASCULAR system: S1, S2 muffled. RESPIRATORY: Breath sounds diminished in the bases. A few scattered rhonchi and crackles. ABDOMEN: Soft, nontender. No mass palpable. 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 Right kc cellulitis present. NERVOUS SYSTEM: No focal deficits. LAB STUDIES: WBC 12.2, hemoglobin 11.3 and glucose 122. Troponins are noted 3.100 and the chest x- ray personally reviewed by me showed evidence of increased bronchovascular markings. ASSESSMENT: 1. Acute bilateral pulmonary embolism. 2. Acute deep vein thrombosis of the left leg system extensive involving the left common iliac, left external iliac, left common femoral, superficial and profunda femorals, femoral veins. 3. Elevated troponin up to 3, possibly indicating acute wbx-CU-seqynaq-elevation myocardial infarction or supply demand mismatch or secondary pulmonary embolism. 4. Multiple bilateral leg ulcers on the right. 5. Anemia, microcytic, possibly iron deficiency. 6. Elevated D-dimer with evidence of pulmonary embolism. 7. Hyponatremia. 8. History of coronary artery disease. 9. Chronic obstructive pulmonary disease. 10.Hypertension. 11.History of rheumatoid arthritis. 12.History of pancreatitis. 13.History of pericarditis previously recorded, possibly viral. 14.History of coronary artery disease/ stent. 15.History of continued ongoing nicotine dependence. RECOMMENDATIONS AND DISCUSSION: In this 74-year-old gentleman who presented with multiple complex medical issues, we will monitor the patient closely, continue the current medications, management and symptomatic treatment. Otherwise would also recommend a course of antibiotics. The wound culture showed gram-negative bacilli. Otherwise, I would also recommend continue with bronchodilators and continue to monitor. Otherwise, Xarelto. The patient is not a candidate for thrombolysis per vascular surgery Dr. Mack. Otherwise, prognosis guarded. Dr. Steven will follow tomorrow. MMODL / IJN: [id number] /
[2019-09-05 16:16] VITALS: RESP 18
[2019-09-05] MEDS: PANTOPRAZOLE 40 MG TABLET PO SCH (17:22)
--- NOTE | 2019-09-05 17:58 | PN ---
PROGRESS NOTE DATE OF SERVICE: 09/05/2019. REASON FOR FOLLOWUP: Left AKA and right leg wound. INTERVAL HISTORY: The patient is currently afebrile. The patient is breathing comfortably. Denies having any chest pain. Occasional cough. No purulent sputum. No nausea, vomiting. Denies any pain to the left AK or right leg wound. PHYSICAL EXAMINATION: Blood pressure 109/73 with a pulse of 78, temperature of 98. He is 95% on room air. General description is an elderly male lying in bed in no distress. Respiratory system: Unlabored breathing. Clear to auscultation anteriorly. Heart S1, S2. Regular rate and rhythm. Abdomen soft. No tenderness. The leg wound is currently dressed up. No obvious drainage on the dressing. LABS: Hemoglobin 11.1, white count 5.2, with a BUN of 16, creatinine 0.76. Did have wound culture showing gram-negative. DIAGNOSTIC IMPRESSION AND PLAN: 1. Patient with right leg wound traumatic, with some superficial culture showing gram- negative bacilli. examination did not show any inflammation. Rocephin has been added. Family has been cautious. Will continue while waiting for the sensitivity. Local care to continue with the Medihoney. 2. Left above knee amputation wound. Continue with Medihoney and keep the area off the pressure. Dr. Paul will resume the care tomorrow to which the patient is known. MMODL / IJN: [id number] /
[2019-09-06] MEDS: HYDROmorphone 1 MG/ML 1 ML SYRINGE IVP PRN ×2 (00:28→04:35)
[2019-09-06] MEDS: PANTOPRAZOLE 40 MG TABLET PO SCH (06:12)
[2019-09-06] MEDS: RIVAROXABAN 15 MG TAB PO SCH (06:12)
[2019-09-06 06:44] LABS: Anisocytosis Slight; Basophils # (A) 0.1 k/uL (0-0.2); Basophils % (A) 1 %; Eosinophils # (A) 0.1 k/uL (0-0.7); Eosinophils % (A) 1 %; HCT 35.7 % (39.0-53.0); HGB 10.4 gm/dL (13.0-17.5); Hypochromasia Marked; Lymphocytes % (A) 21 %; MCH 21.1 pg (25.0-35.0); MCHC 29.1 g/dL (31.0-37.0); MCV 72.4 fL (80.0-100.0); Mean Platelet Volume 6.5; Microcytosis Moderate; Monocytes # (A) 0.4 k/uL (0-1.0); Monocytes % (A) 4 %; Neutrophils # (A) 6.8 k/uL (1.3-7.7); Neutrophils % (A) 71 %; Platelet Count 524 k/uL (150-450); RBC 4.94 m/uL (4.30-5.90); RDW 18.6 % (11.5-15.5); WBC 9.5 k/uL (3.8-10.6)
[2019-09-06 06:45] LABS: African American GFR (CKD) >90 (>60 ml/min/1.73 sqM); Anion Gap 6 mmol/L; Blood Urea Nitrogen 20 mg/dL (9-20); Calcium 8.6 mg/dL (8.4-10.2); Carbon Dioxide 26 mmol/L (22-30); Chloride 106 mmol/L (98-107); Glucose 138 mg/dL (74-99); Non-African American GFR(CKD) 88 (>60 ml/min/1.73 sqM); Potassium 4.3 mmol/L (3.5-5.1); Sodium 138 mmol/L (137-145)
[2019-09-06] MEDS: IPRATROPIUM-ALBUTEROL 3 ML NEB INHALATION SCH ×2 (08:01→13:06)
[2019-09-06] MEDS ORDERED: MORPHINE SULFATE ER 30 MG TABLET PO SCH (09:00)
[2019-09-06] MEDS ORDERED: HYDROmorphone 0.5 MG/0.5 ML SYRINGE IVP STA (09:25)
[2019-09-06] MEDS: ATORVASTATIN 80 MG TAB PO SCH (09:44)
[2019-09-06] MEDS: METOPROLOL TARTRATE 25 MG TAB PO SCH (09:44)
[2019-09-06] MEDS: ASPIRIN 81 MG PO SCH (09:44)
[2019-09-06] MEDS: predniSONE 10 MG TAB PO SCH ×2 (09:44→15:42)
[2019-09-06 09:58] VITALS: BP 123/76; TEMP 98
--- NOTE | 2019-09-06 10:54 | P.PN ---
Subjective Progress Note Date: 09/06/19 this is a 74-year-old gentleman who follows regularly with Dr. Khoury in the office. He has a known history of coronary artery disease, he underwent a cardiac catheterization in 2017 which revealed a mild to moderate disease involving the LAD, 90% occlusion of the RCA at which time patient underwent stenting of that vessel. He also has history of hypertension, hyperlipidemia, he is a nondiabetic. He does continue to smoke. Patient also has history of COPD, he underwent a left knee replacement redo about a year ago, developed a subsequent infection and subsequently underwent a left AKA at [facility] a few months ago.he presented to the hospital with symptoms of abdominal discomfort with associated chest discomfort and shortness of breath and lightheadedness. His d-dimer was elevated and subsequent CTA of the chest showed bilateral nonocclusive pulmonary embolism. Computed tomography scan of the abdomen and pelvis was done which showed occlusive DVT involving the left common iliac vein left external iliac vein, left common femoral vein and the visualized superficial and profunda femoris veins. Patient was seen and examined this morning, resting comfortably in bed. Denies any chest pain in his breathing is stable. He is currently on oral anticoagulation. Echocardiogram with Doppler study was performed which revealed a normal left ventricular systolic function, ejection fraction 50-55% with basal inferior LV wall hypokinesia, normal RV size, mild MR, mild TR, and RVSP of less than 35.blood pressure 122/76 with a heart rate of 90, 97% on room air.White blood cell count 9.5, hemoglobin 10.4, platelet count 524. Sodium 138, potassium 4.3, BUN 20 and creatinine 0.8. Objective - Vital Signs Vital signs: Vital Signs Temp 98 F 09/06/19 08:00 Pulse 88 09/06/19 08:14 Resp 18 09/06/19 08:00 BP 123/76 09/06/19 08:00 Pulse Ox 97 09/06/19 08:00 Intake & Output 09/05/19 09/06/19 09/06/19 18:59 06:59 18:59 Intake Total 570 10 Output Total 350 0 Balance 220 10 0 Weight 76.5 kg Intake: IV 10 0.9 10 Intake, IV Titration 50 Amount cefTRIAXone 1 gm In 50 Sodium Chloride 0.9% 50 ml @ 100 mls/hr IVPB Q24HR [facility] Rx#:[id number] Oral 520 Output: Urine 350 0 Other: Voiding Method Urinal Urinal # Voids 400 0 - Exam PHYSICAL EXAMINATION: HEENT: Head is atraumatic, normocephalic. Pupils equal, round. Neck is supple. There is no elevated jugular venous pressure. HEART EXAMINATION: Heart sounds regular, S1 and S2 normal. No murmur or gallop heard. CHEST EXAMINATION: Lungs reveal expiratory wheezing throughout. No chest wall tenderness is noted on palpation or with deep breathing. ABDOMEN: Soft, nontender. Bowel sounds are heard. No organomegaly noted. EXTREMITIES: 2+ peripheral pulses to bilateral upper extremities and right lower extremity with no evidence of peripheral edema. Left AKA noted. Dressings intact to left stump and right kc. NEUROLOGIC patient is awake, alert and oriented x3. - Labs CBC & Chem 7: 09/06/19 06:07 09/06/19 06:07 Labs: Abnormal Lab Results - Last 24 Hours (Table) 09/06/19 09/06/19 Range/Units 06:07 06:07 Hgb 10.4 L (13.0-17.5) gm/dL Hct 35.7 L (39.0-53.0) % MCV 72.4 L (80.0-100.0) fL MCH 21.1 L (25.0-35.0) pg MCHC 29.1 L (31.0-37.0) g/dL RDW 18.6 H (11.5-15.5) % Plt Count 524 H (150-450) k/uL Glucose 138 H (74-99) mg/dL Microbiology - Last 24 Hours (Table) 09/04/19 06:02 Gram Stain - Preliminary Leg - Right Wound Culture - Preliminary Gram Neg Bacilli 09/04/19 06:04 Gram Stain - Preliminary Thigh - Left Wound Culture - Preliminary Assessment and Plan Plan: Assessmentand plan: #1 bilateral PE with extensive left DVTs #2 elevated troponins, likely secondary to oxygen supply and demand mismatch due to PE #3 CAD with prior stenting of the RCA and known mild to moderate disease involving the LAD #4 nicotine dependence #5 COPD Plan From cardiology's perspective, the patient may be able to be discharged home once cleared by primary. We'll make him a follow-up appointment in the office to see Dr. Draper post discharge. Continue Xarelto per PE protocol. DNP note has been reviewed, I agree with a documented findings and plan of care. Patient was seen and examined.
--- NOTE | 2019-09-06 13:19 | P.DS ---
Providers Date of admission: 09/03/19 20:30 Expected date of discharge: 09/06/19 Attending physician: Clarence Steven MD Consults: 09/03/19 20:30 Consult Physician Urgent Consulting Provider: Alejandro Gu Consult Reason/Comments: dvt,pe Do you want consulting provider notified?: Yes 09/04/19 00:16 Consult Physician Routine Consulting Provider: Jennifer Yousif Consult Reason/Comments: cad Do you want consulting provider notified?: Yes 09/04/19 08:01 Consult Physician Routine Consulting Provider: Cherelle Pendleton Consult Reason/Comments: Wounds Do you want consulting provider notified?: Yes 09/06/19 09:09 Consult Physician Routine Consulting Provider: Fletcher Paul Consult Reason/Comments: wounds Do you want consulting provider notified?: Yes Primary care physician: Ruthy Montemayor [facility] Course: Final Diagnoses Acute bilateral pulmonary embolism Acute extensive DVT of the left leg involving left common iliac, left external iliac, left common femoral, superficial and profunda femoral's, femoral veins Elevated troponins up to 3, possible acute twa-GCFCG-mylzo out as per cardiology- attributed to supply demand mismatch. Multiple bilateral leg ulcers on the right and left stump Anemia, possibly iron deficiency CAD COPD Hypertension This is a 74-year-old gentleman admitted with acute bilateral pulmonary embolism, acute extensive DVT of the left leg, elevated troponins, bilateral leg ulcers and multiple other medical issues. Evaluated by vascular surgery, cardiology, infectious disease. Right leg wound reporting gram-negative bacilli, DC antibiotics as per ID. Anticoagulation with Xarelto as per infectious disease. Patient is not a candidate for thrombolysis as per vascular surgery. Significant clinical improvement. Patient is being discharged home in stable condition, in a stable condition with guarded prognosis, pending antibiotic recommendations/clearance per ID. EXAM: GENERAL: Alert and oriented 3, no acute distress CARDIOVASCULAR: S1, S2 regular.. No murmur RESPIRATION: Breath sounds diminished in the bases. No rhonchi or crackles. ABDOMEN: Soft, nontender . No guarding. no masses palpable.Bowel sounds heard. LEGS: Left stump dressing to right lower leg dressing clean dry and intact. NERVOUS SYSTEM: No focal deficits. The impression and plan of care has been dictated as directed. : I performed a history and examination of this patient, discussed the same with the dictator. I agree with the dictator's note ,documented as a scribe. Any additional findings or plans will be noted. Patient Condition at Discharge: Stable Plan - Discharge Summary Discharge Rx Participant: Yes New Discharge Prescriptions: New Rivaroxaban [Xarelto Starter Pack] 0 mg PO DIRECTED 30 Days #1 pack Aspirin 81 mg PO DAILY chew Atorvastatin [Lipitor] 80 mg PO DAILY #30 tab Metoprolol Tartrate [Lopressor] 25 mg PO BID #60 tab Morphine Sulfate ER [Ms Contin] 30 mg PO Q12HR tablet Pantoprazole [Protonix] 40 mg PO AC-BID #60 tablet.dr Continue predniSONE 10 mg PO TID oxyCODONE-APAP 10-325MG [Percocet 10-325 mg] 1 tab PO BID PRN PRN Reason: Pain Collagenase [Santyl] 1 applic TOPICAL DAILY Albuterol Sulfate [Ventolin HFA] 2 puff INHALATION RT-QID PRN PRN Reason: Shortness Of Breath Discharge Medication List predniSONE 10 mg PO TID 09/02/18 [History] oxyCODONE-APAP 10-325MG [Percocet 10-325 mg] 1 tab PO BID PRN 01/19/19 [History] Albuterol Sulfate [Ventolin HFA] 2 puff INHALATION RT-QID PRN 09/03/19 [History] Collagenase [Santyl] 1 applic TOPICAL DAILY 09/03/19 [History] Aspirin 81 mg PO DAILY chew 09/06/19 [Rx] Atorvastatin [Lipitor] 80 mg PO DAILY #30 tab 09/06/19 [Rx] Metoprolol Tartrate [Lopressor] 25 mg PO BID #60 tab 09/06/19 [Rx] Morphine Sulfate ER [Ms Contin] 30 mg PO Q12HR tablet 09/06/19 [Rx] Pantoprazole [Protonix] 40 mg PO AC-BID #60 tablet. 09/06/19 [Rx] Rivaroxaban [Xarelto Starter Pack] 0 mg PO DIRECTED 30 Days #1 pack 09/06/19 [Rx] Follow up Appointment(s)/Referral(s): , [facility] [Other] - 1 Week (Please keep your weekly scheduled wound care appointments) [facility], [NON-STAFF] - Ruthy Montemayor DO [Primary Care Provider] - 09/10/19 10:00 am (Friday -in [place] office) Chepe Draper MD [STAFF PHYSICIAN] - 09/21/19 4:00 pm (Friday) Ambulatory/Diagnostic Orders: Complete Blood Count w/diff [LAB.AMB] Time Frame: 3 Days, Location: None Selected Patient Instructions/Handouts: Pulmonary Embolism (DC), Safe Use of Anticoagulants (DC) Activity/Diet/Wound Care/Special Instructions: Magnesium level pending.Antibx/WOund care as per ID. Call to request patient assistance for cost of Xarelto Free 30 days supplied by Jayjay @[email or web address]
[2019-09-06 15:54] VITALS: PULSE 77
--- NOTE | 2019-09-13 05:20 | CDI ---
Documentation Clarification Form Date: 09/13/19 From: Ganesh Poe Phone: If you have a question about this query, please contact Lauren Fisher Rat Farmer at [phone] between 8am and 5pm. Admit Date: 09/03/19 Discharge Date: 09/06/19 Patient Name: Fletcher Sanabria Visit Number: [id number] ATTENTION: The Clinical Documentation Specialists (CDI) and [facility] Coding Staff appreciate your assistance in clarifying documentation. Please respond to the clarification below the line at the bottom and electronically sign. The CDI & [facility] Coding staff will review the response and follow-up if needed. Please note: Queries are made part of the Legal Health Record. If you have any questions, please contact the author of this message via ITS. Dear Clarence Oh, Your patient has the documented diagnosis of DVT and Pulmonary embolism. In 09/04 consult note by Alejandro Peralta mentioned as Acute to subacute left iliofemoral deep venous thrombosis possibly associated with his surgical procedure prep disease left befsj-tbg-[id number] amputation. A relationship between diagnoses cannot be assumed unless documented as such by the attending physician. In order to capture the severity of condition; please document the relationship, if any, between these diagnoses. 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 Treatment: Anticoagulation with Xarelto as per infectious disease Please clarify and document your clinical opinion in the consult note by Alejandro Fermin DO notes and discharge summary if any relationship (due to, caused by, secondary to) exists between these two diagnoses. Please include clinical findings supporting your diagnosis. DVT Resulted from Amputation surgery DVT not Resulted from amputation surgery Other explanation of clinical findings (please specify) Unable to determine (no explanation for clinical findings) DVT resulted from Amputation surgery MTDD
== END 2019-09-06 18:23 | disposition home health service (06) | DRG 300 ==
LOC: EC 17:46 → 3SCARD 20:30
PROVIDERS: ADMIT Family Medicine; ATTEND Family Medicine
DX: T81.72XA Complication of vein following a procedure, not elsewhere classified, initial encounter (principal); I82.412 Acute embolism and thrombosis of left femoral vein; E87.1 Hypo-osmolality and hyponatremia; L97.918 Non-pressure chronic ulcer of unspecified part of right lower leg with other specified severity; I82.422 Acute embolism and thrombosis of left iliac vein; I26.99 Other pulmonary embolism without acute cor pulmonale; D50.9 Iron deficiency anemia, unspecified; E78.5 Hyperlipidemia, unspecified; T87.89 Other complications of amputation stump; F17.210 Nicotine dependence, cigarettes, uncomplicated; L97.519 Non-pressure chronic ulcer of other part of right foot with unspecified severity; I10 Essential (primary) hypertension; I25.10 Atherosclerotic heart disease of native coronary artery without angina pectoris; J44.9 Chronic obstructive pulmonary disease, unspecified; M06.9 Rheumatoid arthritis, unspecified; B96.89 Other specified bacterial agents as the cause of diseases classified elsewhere; Z96.611 Presence of right artificial shoulder joint; Z79.01 Long term (current) use of anticoagulants; Z79.899 Other long term (current) drug therapy; Z86.718 Personal history of other venous thrombosis and embolism; Z89.612 Acquired absence of left leg above knee; Z95.5 Presence of coronary angioplasty implant and graft; Z99.81 Dependence on supplemental oxygen; Z81.8 Family history of other mental and behavioral disorders; Z82.61 Family history of arthritis; Z87.01 Personal history of pneumonia (recurrent); Z86.14 Personal history of Methicillin resistant Staphylococcus aureus infection; Z98.890 Other specified postprocedural states; Z80.9 Family history of malignant neoplasm, unspecified
CPT/HCPCS: 36415; 71045; 71275; 74177; 80048; 80053; 80061; 81003; 83690; 83735; 83880; 84484; 85025; 85379; 85610; 85730; 87070; 87075; 87077; 87186; 87205; 93005; 93306; 94640; 94760; 96361; 96365; 96375; 96376; 99291

== ENCOUNTER 2019-09-12 03:35 | Emergency (ER) | payer MEDICARE ==
[2019-09-12] MEDS ORDERED: ASPIRIN 81 MG PO STA (03:49)
[2019-09-12] MEDS ORDERED: MORPHINE SULFATE 4 MG/ML SYRINGE IV STA (03:55)
[2019-09-12] MEDS ORDERED: NITROGLYCERIN OINT 1 INCH/GM PACKET TOPICAL STA (03:57)
[2019-09-12 04:05] LABS: Anisocytosis Slight; HCT 37.8 % (39.0-53.0); HGB 11.1 gm/dL (13.0-17.5); Hypochromasia Marked; MCH 21.1 pg (25.0-35.0); MCHC 29.4 g/dL (31.0-37.0); MCV 71.8 fL (80.0-100.0); Microcytosis Marked; Platelet Count 643 k/uL (150-450); RBC 5.26 m/uL (4.30-5.90); RDW 18.8 % (11.5-15.5); WBC 13.8 k/uL (3.8-10.6)
--- NOTE | 2019-09-12 04:07 | ED ---
Chest Pain HPI - General Chief Complaint: Shortness of Breath Stated Complaint: Chest Pains Time Seen by Provider: 09/12/19 03:48 Source: EMS Mode of arrival: EMS Limitations: no limitations - History of Present Illness Initial Comments: Patient is 74-year-old man who presents with left-sided chest pain that started proximally 2 hours ago while he was at rest. Patient had been sleeping and then woke up to use the bathroom that he is having chest pain. Patient also has had a bit of cough and was concerned that he may be having pneumonia. Patient had recently been in the hospital for pulmonary embolism. The patient describes pain as burning, constant, was somewhat relieved by nitroglycerin but did not resolve. He denies any associated symptoms. MD Complaint: chest pain Onset/Timin -: hour(s) Onset: during rest Pain Location: left chest Pain Radiation: LUE Severity: moderate Quality: other (Burning) Consistency: other (Partially improved) Worsens With: nothing Anginal Symptoms: dyspnea - Related Data Home Medications Medication Instructions Recorded Confirmed predniSONE 10 mg PO TID 09/02/18 09/03/19 oxyCODONE-APAP 10-325MG [Percocet 1 tab PO BID PRN 01/19/19 09/03/19 10-325 mg] Albuterol Sulfate [Ventolin HFA] 2 puff INHALATION RT-QID PRN 09/03/19 09/03/19 Collagenase [Santyl] 1 applic TOPICAL DAILY 09/03/19 09/03/19 Previous Rx's Medication Instructions Recorded Aspirin 81 mg PO DAILY chew 09/06/19 Atorvastatin [Lipitor] 80 mg PO DAILY #30 tab 09/06/19 Cefdinir [Omnicef] 300 mg PO Q12HR #14 capsule 09/06/19 Metoprolol Tartrate [Lopressor] 25 mg PO BID #60 tab 09/06/19 Morphine Sulfate ER [Ms Contin] 30 mg PO Q12HR tablet 09/06/19 Pantoprazole [Protonix] 40 mg PO AC-BID #60 tablet. 09/06/19 Rivaroxaban [Xarelto Starter Pack] 0 mg PO DIRECTED 30 Days #1 pack 09/06/19 Azithromycin [Zithromax Z-pack] 250 mg PO DIRECTED #6 tab 09/12/19 Allergies Allergy/AdvReac Type Severity Reaction Status Date / Time No Known Allergies Allergy Verified 09/12/19 03:48 Review of Systems ROS Statement: Those systems with pertinent positive or pertinent negative responses have been documented in the HPI. ROS Other: All systems not noted in ROS Statement are negative. Constitutional: Denies: fever, chills Respiratory: Reports: as per HPI, cough, dyspnea Cardiovascular: Reports: chest pain. Denies: palpitations, edema, syncope Gastrointestinal: Denies: abdominal pain, nausea, vomiting Genitourinary: Denies: dysuria, hematuria Musculoskeletal: Denies: back pain Skin: Denies: rash Neurological: Denies: headache EKG Findings - EKG Results: EKG: interpreted by ERMKristina, sinus rhythm (Rate 91 bpm), normal axis, normal QRS Past Medical History Past Medical History: Coronary Artery Disease (CAD), COPD, Hyperlipidemia, Pneumonia, Rheumatoid Arthritis (RA), Rheumatoid Arthritis (RA) Additional Past Medical History / Comment(s): History of pancreatitis, 2012 past medical record documents viral pericarditis but pt denies, gastritis, has home O2 at HS only but has not been using. Fluid build up rt lung - previous chest tube - pt unsure what it is from, BOTTOM TEETH REMOVED 09-01-18 History of Any Multi-Drug Resistant Organisms: MRSA Date of last positivie culture/infection: 11/23/18 MDRO Source:: KNEE Past Surgical History: Heart Catheterization With Stent, Joint Replacement, Orthopedic Surgery Additional Past Surgical History / Comment(s): Total L knee arthroplasty with a spacer in place, R total shoulder replaced, L ankle ORIF d/t fracture, EGD, left rotator cuff repair. right ankle sx, thoracentesis, chest tube rt lung, LT above the knee amputation Past Anesthesia/Blood Transfusion Reactions: No Reported Reaction Additional Past Anesthesia/Blood Transfusion Reaction / Comment(s): Pt states he has never recieved blood. Date of Last Stent Placement:: 12/10/16 Past Psychological History: No Psychological Hx Reported Smoking Status: Former smoker Past Alcohol Use History: None Reported Past Drug Use History: None Reported - Past Family History Sister(s) Family Medical History: Cancer Additional Family Medical History / Comment(s): pt's father had ra, mother had 16 children was healthy most of her life age 93 from dementia. Mother Family Medical History: Dementia Additional Family Medical History / Comment(s): Mother from dementia at the age of 93 yrs. Father Family Medical History: Rheumatoid Arthritis (RA) General Exam Limitations: no limitations General appearance: alert, in no apparent distress Head exam: Present: atraumatic, normocephalic Eye exam: Present: normal appearance. Absent: scleral icterus, conjunctival injection ENT exam: Present: normal oropharynx Respiratory exam: Present: rales (Bilateral bases). Absent: respiratory distress, wheezes, rhonchi, stridor, accessory muscle use, decreased breath sounds, prolonged expiratory Cardiovascular Exam: Present: regular rate, normal rhythm, normal heart sounds. Absent: systolic murmur, diastolic murmur, rubs, gallop GI/Abdominal exam: Present: soft. Absent: distended, tenderness, guarding, rebound, rigid Extremities exam: Present: normal capillary refill, other (Left leg above knee amputation). Absent: pedal edema, calf tenderness Back exam: Present: normal inspection. Absent: CVA tenderness (R), CVA tenderness (L) Neurological exam: Present: alert Skin exam: Present: warm, dry, intact, normal color. Absent: rash Course Vital Signs 09/12/19 09/12/19 09/12/19 03:36 04:30 05:20 Temperature 97.7 F Pulse Rate 94 84 93 Respiratory 20 18 20 Rate Blood Pressure 125/90 117/87 115/81 O2 Sat by Pulse 95 98 98 Oximetry 09/12/19 06:39 Temperature 97.9 F Pulse Rate 79 Respiratory 20 Rate Blood Pressure 112/89 O2 Sat by Pulse 97 Oximetry Chest Pain [facility] Patient is 74-year-old man presenting with left upper chest pain and cough. The patient did admit to missing doses of Xarelto, and given his symptoms have repeat computed tomography scan which did not show pulmonary embolism. The patient's troponin is mildly elevated, but may be still decreasing from his p revious admission. I discussed results with patient and recommended admission, but he states that the pain is now improved. He wants to go home. I did discuss that I was concerned about possibility of underlying CAD, the patient states he does want anyways and will follow-up with ekg monitor. Disposition Clinical Impression: COPD (chronic obstructive pulmonary disease), Chest pain Disposition: Left Against Medical Advice Condition: Fair Instructions (If sedation given, give patient instructions): Chest Pain (ED), Chronic Bronchitis (ED) Prescriptions: Azithromycin [Zithromax Z-pack] 250 mg PO DIRECTED #6 tab Is patient prescribed a controlled substance at d/c from ED?: No Referrals: Ruthy Montemayor DO [Primary Care Provider] - 1-2 days
--- NOTE | 2019-09-12 04:08 | XR ---
EXAMINATION TYPE: XR chest 2V DATE OF EXAM: 09/12/2019 COMPARISON: 09/05/2019 HISTORY: Chest pain TECHNIQUE: Frontal and lateral views of the chest are obtained. FINDINGS: There is some coarsening of the interstitial pulmonary markings. Heart size is normal. The re is right shoulder prosthesis. Thoracic aorta is atheromatous. IMPRESSION: Interstitial pulmonary infiltrates probably related to pulmonary fibrosis. No significan t change. No obvious heart failure.
[2019-09-12 04:14] LABS: ALT 38 U/L (21-72); AST 45 U/L (17-59); African American GFR (CKD) >90 (>60 ml/min/1.73 sqM); Albumin 3.2 g/dL (3.5-5.0); Alkaline Phosphatase 129 U/L (38-126); Amylase 121 U/L (30-110); Anion Gap 6 mmol/L; Blood Urea Nitrogen 16 mg/dL (9-20); Calcium 8.9 mg/dL (8.4-10.2); Carbon Dioxide 25 mmol/L (22-30); Chloride 106 mmol/L (98-107); Glucose 142 mg/dL (74-99); Magnesium 1.8 mg/dL (1.6-2.3); Non-African American GFR(CKD) >90 (>60 ml/min/1.73 sqM); Sodium 137 mmol/L (137-145); Total Bilirubin 0.7 mg/dL (0.2-1.3); Total Protein 6.6 g/dL (6.3-8.2)
[2019-09-12 04:19] LABS: INR 0.9 (<1.2); Partial Thromboplastin Time 22.3 sec (22.0-30.0)
[2019-09-12 04:21] LABS: Potassium 5.7 mmol/L (3.5-5.1)
[2019-09-12 04:29] LABS: D-Dimer 1.78 mg/L FEU (<0.60)
[2019-09-12] MEDS ORDERED: RIVAROXABAN 15 MG TAB PO STA (04:56)
[2019-09-12 05:21] VITALS: RESP 20
[2019-09-12 05:36] LABS: Lymphocytes # (M) 3.31 k/uL (1.0-4.8); Monocytes # (M) 0.28 k/uL (0-1.0); Neutrophils # (M) 10.21 k/uL (1.3-7.7); Neutrophils % (M) 74 %; Nucleated Red Blood Cells 0 /100 WBC (0-0); Total Cells Counted 100
[2019-09-12 05:38] LABS: Ovalocytes Present; Poikilocytosis (M) Present
[2019-09-12 05:39] LABS: Large Platelets Present; Polychromasia Present
--- NOTE | 2019-09-12 06:01 | CT ---
EXAM: CT Angiography Chest With Intravenous Contrast CLINICAL HISTORY: ITS.REASON CT Reason: chest pain TECHNIQUE: Axial computed tomographic angiography images of the chest with intravenous contrast. CTDI is 14 mGy and DLP is 505 mGy-cm. This CT exam was performed using one or more of the following dose reduction techniques: automated exposure control, adjustment of the mA and/or kV according to patient size, and/or use of iterative reconstruction technique. MIP reconstructed images were created and reviewed. COMPARISON: 01/22/19 CT chest FINDINGS: Pulmonary arteries: No filling defects. Aorta: No thoracic aortic aneurysm. Lungs: No mass. Moderate centrilobular emphysema. Chronic opacities at the lung apices and bases. Pleural space: No pneumothorax. Decreased but persistent mild bilateral pleural effusions. Heart: Unchanged cardiomegaly. No pericardial effusion. Bones/joints: New but age indeterminate 30% inferior wedging of T5 and 10% superior endplate wedging of T6 without retropulsion. Soft tissues: Unremarkable. Lymph nodes: Prominent likely reactive nodes. IMPRESSION: 1. No pulmonary embolism. 2. Decreased but persistent mild bilateral pleural effusions. 3. Age indeterminate fractures of T5 and T6 but new since 01/22/19. If there is back pain, recommend MRI of the thoracic spine.
[2019-09-12] MEDS ORDERED: oxyCODONE-APAP 10-325MG 1 EACH TAB PO STA (06:33)
[2019-09-12] MEDS ORDERED: AZITHROMYCIN 500 MG TAB PO STA (06:34)
[2019-09-12 06:41] VITALS: BP 112/89; PULSE 79; TEMP 97.9
== END 2019-09-12 06:50 | disposition left against medical advice (07) ==
LOC: EC 03:35
DX: J44.9 Chronic obstructive pulmonary disease, unspecified (principal); R79.89 Other specified abnormal findings of blood chemistry; I25.10 Atherosclerotic heart disease of native coronary artery without angina pectoris; M06.9 Rheumatoid arthritis, unspecified; Z87.01 Personal history of pneumonia (recurrent); Z79.891 Long term (current) use of opiate analgesic; Z86.14 Personal history of Methicillin resistant Staphylococcus aureus infection; Z95.5 Presence of coronary angioplasty implant and graft; Z96.652 Presence of left artificial knee joint; Z96.611 Presence of right artificial shoulder joint; Z89.612 Acquired absence of left leg above knee; Z87.891 Personal history of nicotine dependence; Z79.52 Long term (current) use of systemic steroids; Z79.899 Other long term (current) drug therapy; Z53.8 Procedure and treatment not carried out for other reasons
CPT/HCPCS: 36415; 93005; 85379; 80053; 82150; 83690; 83735; 84484; 85025; 85610; 85730; 71046; 71275; 99285; 96374; J2270; Q9967

== ENCOUNTER → 2019-12-06 | Outpatient (CLI) | payer MEDICARE ==
--- NOTE | 2019-12-07 11:26 | NM ---
EXAMINATION TYPE: NM bone scan whole body DATE OF EXAM: 12/06/2019 COMPARISON: CT abdomen pelvis dated 09/03/[address] of the chest dated 09/12/2019 HISTORY: Lumbar radiculopathy Delayed whole-body scanning was performed following the injection of 24.0 mCi Tc 99m MDP. Images acq uired 3.5 hours post injection. FINDINGS: There is focal increased radiotracer uptake at the L3 and L4 superior endplates. Focal uptake is also seen of the left distal femur this patient with prior djnfy-ocq-mhqb amputation on the left. Abnorma l focus is also seen of the anterior margin of the second rib on the right. Degenerative changes are seen of the acromioclavicular joints, glenohumeral joints, wrists, right elbow, sacroiliac joints, ri ght knee, and right hindfoot. There is more subtle increased uptake of the right tibia in the proximal to mid diaphysis as well as approximately T4 and T6. IMPRESSION: 1. Focal radiotracer uptake at approximately T4, T6, L3, and L4. Correlation with plain films is aniceto mmended to evaluate for compression deformities. A compression deformity is seen of the upper thoraci c spine on the CT of 09/12/2019 and compression deformity at L2 on the outside x-ray of 2019 (possibly chronic is no focal uptake is seen in L2). 2. Abnormal radiotracer uptake of the left femur that may be reactive although osteomyelitis is possi ble in this patient with an bhrbw-euq-tghu amputation. 3. Abnormal uptake of the anterior second right rib. Correlate for recent rib fracture or costochondr itis. 4. Degenerative change of the axial and appendicular skeleton. 5. Subtle abnormal uptake of the right tibia. Correlation with radiographs is also recommended.
== END | disposition home or self-care (01) ==
LOC: RADNMMAIN 10:20
PROVIDERS: ATTEND Physical Medicine & Rehabilitation
DX: M89.8X0 Other specified disorders of bone, multiple sites (principal); M53.84 Other specified dorsopathies, thoracic region; M53.86 Other specified dorsopathies, lumbar region; R93.7 Abnormal findings on diagnostic imaging of other parts of musculoskeletal system; Z89.612 Acquired absence of left leg above knee
CPT/HCPCS: 78306; A9503

== ENCOUNTER 2019-12-20 12:01 | Inpatient (IN) | payer MEDICARE ==
[2019-12-20] MEDS ORDERED: methylPREDNISolone SOD SUCCI 125 MG/2 ML VIAL IV STA (12:17)
[2019-12-20] MEDS ORDERED: IPRATROPIUM-ALBUTEROL 3 ML NEB INHALATION STA (12:17)
--- NOTE | 2019-12-20 12:19 | ED ---
General Adult HPI - General Chief complaint: Shortness of Breath Stated complaint: dyspnea Time Seen by Provider: 12/20/19 12:11 Source: patient, RN notes reviewed Mode of arrival: wheelchair Limitations: physical limitation - History of Present Illness Initial comments: Patient is a pleasant 74-year-old male presenting to emergency Department with shortness of breath. Onset of symptoms was several days ago. Patient has occasional dry cough. Patient does have history of similar symptoms previously associated with COPD or pneumonia. No leg pain or leg swelling, status post left AKA. No chest pain. Patient does have some back pain since a fall 2-3 months ago and was diagnosed with compression fractures. - Related Data Home Medications Medication Instructions Recorded Confirmed predniSONE 10 mg PO TID 09/02/18 12/20/19 oxyCODONE-APAP 10-325MG [Percocet 1 tab PO QID 01/19/19 12/20/19 10-325 mg] Albuterol Sulfate [Ventolin HFA] 2 puff INHALATION RT-QID PRN 09/03/19 12/20/19 Previous Rx's Medication Instructions Recorded Aspirin 81 mg PO DAILY chew 09/06/19 Allergies Allergy/AdvReac Type Severity Reaction Status Date / Time No Known Allergies Allergy Verified 12/20/19 14:25 Review of Systems ROS Statement: Those systems with pertinent positive or pertinent negative responses have been documented in the HPI. ROS Other: All systems not noted in ROS Statement are negative. Constitutional: Denies: fever Eyes: Denies: eye pain ENT: Denies: ear pain Respiratory: Reports: dyspnea Cardiovascular: Denies: chest pain Endocrine: Denies: fatigue Gastrointestinal: Denies: abdominal pain Genitourinary: Denies: dysuria Musculoskeletal: Reports: as per HPI Skin: Denies: rash Neurological: Denies: weakness Past Medical History Past Medical History: Coronary Artery Disease (CAD), COPD, Hyperlipidemia, Pneumonia, Rheumatoid Arthritis (RA), Rheumatoid Arthritis (RA) Additional Past Medical History / Comment(s): History of pancreatitis, 2012 past medical record documents viral pericarditis but pt denies, gastritis, has home O2 at HS only but has not been using. Fluid build up rt lung - previous chest tube - pt unsure what it is from, BOTTOM TEETH REMOVED 09-01-18 History of Any Multi-Drug Resistant Organisms: MRSA Date of last positivie culture/infection: 11/23/18 MDRO Source:: KNEE Past Surgical History: Heart Catheterization With Stent, Joint Replacement, Orthopedic Surgery Additional Past Surgical History / Comment(s): Total L knee arthroplasty with a spacer in place, R total shoulder replaced, L ankle ORIF d/t fracture, EGD, left rotator cuff repair. right ankle sx, thoracentesis, chest tube rt lung, LT above the knee amputation Past Anesthesia/Blood Transfusion Reactions: No Reported Reaction Additional Past Anesthesia/Blood Transfusion Reaction / Comment(s): Pt states he has never recieved blood. Date of Last Stent Placement:: 12/10/16 Past Psychological History: No Psychological Hx Reported Smoking Status: Former smoker Past Alcohol Use History: None Reported Past Drug Use History: None Reported - Past Family History Sister(s) Family Medical History: Cancer Additional Family Medical History / Comment(s): pt's father had ra, mother had 16 children was healthy most of her life age 93 from dementia. Mother Family Medical History: Dementia Additional Family Medical History / Comment(s): Mother from dementia at the age of 93 yrs. Father Family Medical History: Rheumatoid Arthritis (RA) General Exam Limitations: physical limitation General appearance: alert Head exam: Present: normocephalic Eye exam: Present: normal appearance, PERRL ENT exam: Present: normal oropharynx Neck exam: Present: normal inspection Respiratory exam: Present: wheezes Cardiovascular Exam: Present: regular rate, normal rhythm GI/Abdominal exam: Present: soft. Absent: tenderness Extremities exam: Present: other (Left AKA) Neurological exam: Present: alert Psychiatric exam: Present: normal affect, normal mood Skin exam: Present: other (Right leg chronic wound which patient states is stable) Course Vital Signs 12/20/19 12/20/19 12/20/19 12:08 12:36 12:50 Temperature 98.6 F Pulse Rate 93 84 87 Respiratory 26 H Rate Blood Pressure 158/95 O2 Sat by Pulse 95 Oximetry 12/20/19 14:30 Temperature Pulse Rate 76 Respiratory 20 Rate Blood Pressure 180/98 O2 Sat by Pulse 98 Oximetry EKG Findings - EKG Comments: EKG Findings:: Normal sinus rhythm 92. SC 144. QRS 76. QT 340. QTc 420. Normal axis. Normal QRS. No acute ST change. Medical Decision Making - Medical Decision Making Patient reevaluated and updated. Patient states he has been off his Eliquis secondary to cost, he says the co-pay was $500 per month. Patient does feel somewhat better following nebulizer. Patient updated on results and plan. Case discussed in detail with Dr. montero, covering for Dr. Salcedo, who admits for Dr. Montemayor. - Lab Data Result diagrams: 12/20/19 12:25 12/20/19 12:25 Lab Results 12/20/19 12/20/19 12/20/19 Range/Units 12:25 12:25 12:25 WBC 11.3 H (3.8-10.6) k/uL RBC 6.09 H (4.30-5.90) m/uL Hgb 14.5 (13.0-17.5) gm/dL Hct 47.4 (39.0-53.0) % MCV 77.9 L (80.0-100.0) fL MCH 23.8 L (25.0-35.0) pg MCHC 30.5 L (31.0-37.0) g/dL RDW 19.1 H (11.5-15.5) % Plt Count 439 (150-450) k/uL Neutrophils % 81 % Lymphocytes % 13 % Monocytes % 5 % Eosinophils % 0 % Basophils % 0 % Neutrophils # 9.1 H (1.3-7.7) k/uL Lymphocytes # 1.5 (1.0-4.8) k/uL Monocytes # 0.5 (0-1.0) k/uL Eosinophils # 0.0 (0-0.7) k/uL Basophils # 0.0 (0-0.2) k/uL Anisocytosis Slight Microcytosis Slight PT 10.4 (9.0-12.0) sec INR 1.0 (<1.2) APTT 20.4 L (22.0-30.0) sec D-Dimer 4.30 H (<0.60) mg/L FEU Sodium 135 L (137-145) mmol/L Potassium 4.6 (3.5-5.1) mmol/L Chloride 103 (98-107) mmol/L Carbon Dioxide 26 (22-30) mmol/L Anion Gap 6 mmol/L BUN 18 (9-20) mg/dL Creatinine 0.67 (0.66-1.25) mg/dL Est GFR (CKD-EPI)AfAm >90 (>60 ml/min/1.73 sqM) Est GFR (CKD-EPI)NonAf >90 (>60 ml/min/1.73 sqM) Glucose 100 H (74-99) mg/dL Plasma Lactic Acid Harsh (0.7-2.0) mmol/L Calcium 9.2 (8.4-10.2) mg/dL Total Bilirubin 0.4 (0.2-1.3) mg/dL AST 34 (17-59) U/L ALT 53 H (4-49) U/L Alkaline Phosphatase 198 H (38-126) U/L Total Protein 6.6 (6.3-8.2) g/dL Albumin 3.7 (3.5-5.0) g/dL Influenza Type A RNA (Not Detectd) Influenza Type B (PCR) (Not Detectd) 12/20/19 12/20/19 Range/Units 12:25 12:27 WBC (3.8-10.6) k/uL RBC (4.30-5.90) m/uL Hgb (13.0-17.5) gm/dL Hct (39.0-53.0) % MCV (80.0-100.0) fL MCH (25.0-35.0) pg MCHC (31.0-37.0) g/dL RDW (11.5-15.5) % Plt Count (150-450) k/uL Neutrophils % % Lymphocytes % % Monocytes % % Eosinophils % % Basophils % % Neutrophils # (1.3-7.7) k/uL Lymphocytes # (1.0-4.8) k/uL Monocytes # (0-1.0) k/uL Eosinophils # (0-0.7) k/uL Basophils # (0-0.2) k/uL Anisocytosis Microcytosis PT (9.0-12.0) sec INR (<1.2) APTT (22.0-30.0) sec D-Dimer (<0.60) mg/L FEU Sodium (137-145) mmol/L Potassium (3.5-5.1) mmol/L Chloride (98-107) mmol/L Carbon Dioxide (22-30) mmol/L Anion Gap mmol/L BUN (9-20) mg/dL Creatinine (0.66-1.25) mg/dL Est GFR (CKD-EPI)AfAm (>60 ml/min/1.73 sqM) Est GFR (CKD-EPI)NonAf (>60 ml/min/1.73 sqM) Glucose (74-99) mg/dL Plasma Lactic Acid Harsh 2.0 (0.7-2.0) mmol/L Calcium (8.4-10.2) mg/dL Total Bilirubin (0.2-1.3) mg/dL AST (17-59) U/L ALT (4-49) U/L Alkaline Phosphatase (38-126) U/L Total Protein (6.3-8.2) g/dL Albumin (3.5-5.0) g/dL Influenza Type A RNA Not Detected (Not Detectd) Influenza Type B (PCR) Not Detected (Not Detectd) - Radiology Data Radiology results: report reviewed (Computed tomography scan of the chest shows pulmonary embolism emphysema and interstitial lung disease.), image reviewed (Chest x-ray shows suspicious retrocardiac opacity.) Critical Care Time Critical Care Time: Yes Total Critical Care Time: 33 Disposition Clinical Impression: Acute exacerbation of chronic obstructive pulmonary disease, Pulmonary embolism Disposition: ADMITTED IP TO THIS HOSP Condition: Serious Is patient prescribed a controlled substance at d/c from ED?: No Referrals: Ruthy Montemayor DO [Primary Care Provider] - 1-2 days Decision Time: 14:43
[2019-12-20] MEDS: MORPHINE SULFATE 4 MG/ML SYRINGE IV STA ×2 (12:33→15:21)
[2019-12-20 12:49] LABS: Anisocytosis Slight; Basophils % (A) 0 %; Eosinophils % (A) 0 %; HCT 47.4 % (39.0-53.0); HGB 14.5 gm/dL (13.0-17.5); Lymphocytes # (A) 1.5 k/uL (1.0-4.8); Lymphocytes % (A) 13 %; MCH 23.8 pg (25.0-35.0); MCHC 30.5 g/dL (31.0-37.0); MCV 77.9 fL (80.0-100.0); Mean Platelet Volume 7.4; Microcytosis Slight; Monocytes # (A) 0.5 k/uL (0-1.0); Monocytes % (A) 5 %; Neutrophils # (A) 9.1 k/uL (1.3-7.7); Neutrophils % (A) 81 %; Platelet Count 439 k/uL (150-450); RBC 6.09 m/uL (4.30-5.90); RDW 19.1 % (11.5-15.5); WBC 11.3 k/uL (3.8-10.6)
[2019-12-20 12:59] LABS: ALT 53 U/L (4-49); AST 34 U/L (17-59); African American GFR (CKD) >90 (>60 ml/min/1.73 sqM); Albumin 3.7 g/dL (3.5-5.0); Alkaline Phosphatase 198 U/L (38-126); Anion Gap 6 mmol/L; Blood Urea Nitrogen 18 mg/dL (9-20); Calcium 9.2 mg/dL (8.4-10.2); Carbon Dioxide 26 mmol/L (22-30); Chloride 103 mmol/L (98-107); Glucose 100 mg/dL (74-99); Non-African American GFR(CKD) >90 (>60 ml/min/1.73 sqM); Potassium 4.6 mmol/L (3.5-5.1); Sodium 135 mmol/L (137-145); Total Bilirubin 0.4 mg/dL (0.2-1.3); Total Protein 6.6 g/dL (6.3-8.2)
[2019-12-20 13:07] LABS: Prothrombin Time 10.4 sec (9.0-12.0)
[2019-12-20 13:12] LABS: D-Dimer 4.3 mg/L FEU (<0.60); Partial Thromboplastin Time 20.4 sec (22.0-30.0)
--- NOTE | 2019-12-20 13:17 | XR ---
EXAMINATION TYPE: XR chest 2V DATE OF EXAM: 12/20/2019 COMPARISON: 09/12/2019 HISTORY: Difficulty breathing TECHNIQUE: Frontal and lateral views of the chest are obtained. FINDINGS: New retrocardiac opacity on the lateral view. Interstitial prominence is chronic compared to the prior. Reverse right humeral arthroplasty. Extensive degenerative changes of the right acromio clavicular joint and left shoulder that are partially visualized. Enlarged cardiomediastinal silhouet te. IMPRESSION: Retrocardiac opacity on the lateral view is suspicious for unifocal pneumonia. Other chr onic changes.
--- NOTE | 2019-12-20 14:23 | CT ---
EXAMINATION TYPE: CT angio chest DATE OF EXAM: 12/20/2019 COMPARISON: Prior CTA dated 09/12/2019, 09/03/2019 HISTORY: Pulmonary embolism, dyspnea CT DLP: 45.4 mGycm Automated exposure control for dose reduction was used. CONTRAST: CTA scan of the thorax is performed with IV Contrast, patient injected with 100 mL of Isovue 370, pul monary embolism protocol. MIP images are created and reviewed. 3D reconstructed images are created on an independent workstation and reviewed. FINDINGS: LUNGS: There are emphysematous changes present, interstitial changes bilaterally, there is associated pleural thickening and scarring present, honeycombing at the lung bases AORTA: No additional significant abnormality is seen. MEDIASTINUM: There is persistent abnormal luminal filling defect present within the left pulmonary ar cisco posterior wall extending into the segmental left lower lobe branches There are no greater than 1 cm hilar or mediastinal lymph nodes. Shotty nodes are present. Prevascular space, right paratracheal region shows borderline enlargement of a node similar to prior exams. Extensive mediastinal fat caus es the mediastinal widening on plain film. No pericardial effusion is seen. 0 there are coronary art preeti calcifications present. OTHER: Cystic foci are associated with the liver as on prior exam. Low-attenuation within the liver could be due to hepatic steatosis. Possible small splenule noted, the spleen is small. Compression fr acture again noted at T6, there is interval compression fracture present at the thoracic lumbar junct ion IMPRESSION: PULMONARY EMBOLISM MAY REPRESENT SUBACUTE ON CHRONIC PULMONARY EMBOLISM. Emphysema, interstitial lung disease. Report relayed to Dr. Bowie telephonically at the time of interpretation at exam. Interval compression fracture.
[2019-12-20] MEDS ORDERED: HEPARIN SODIUM,PORCINE 10,000 UNIT/ML 1 ML VIAL IV ONE (14:44)
[2019-12-20] MEDS ORDERED: HEPARIN SODIUM,PORCINE 5,000 UNIT/ML 1 ML VIAL IV PRN (14:44)
[2019-12-20] MEDS ORDERED: IPRATROPIUM-ALBUTEROL 3 ML NEB INHALATION PRN (14:45)
[2019-12-20] MEDS: SODIUM CHLORIDE 0.9% 1,000 ML IV SCH (15:21)
[2019-12-20] MEDS: HEPARIN SOD,PORK IN 0.45% NACL 25,000 UNIT in 0.45% NACL 1 250ML.BAG IV SCH (15:22)
[2019-12-20] MEDS: IPRATROPIUM-ALBUTEROL 3 ML NEB INHALATION SCH ×2 (15:59→20:08)
--- NOTE | 2019-12-20 16:43 | P.CNPUL ---
History of Present Illness Consult date: 12/20/19 Reason for consult: dyspnea, pulmonary embolism, DVT History of present illness: This is a 72-year-old male patient with known history of COPD, 12-bcfs-wips smoking history, CAD with previous coronary stenting, history of severe rheumatoid arthritis and history of a complicated left knee replacement/arthroplasty with subsequent infections with MRSA requiring multiple surgical interventions of antibiotic spacers. His course was also complicated by septic arthritis and MRSA bacteremia. Note that the patient ultimately underwent a left AKA. He was diagnosed having pulmonary embolism back in August 2019. At that time he came into the hospital because of shortness of breath and the patient was diagnosed having DVT of the right lower extremity involving the left common iliac and left external iliac and left common femoral and superficial and and profunda femoris and femoral veins. He did have some limited troponin elevation. He was also found to have pulmonary embolism. He was treated with IV heparin and ultimately the patient was discharged home on Xarelto. The CT angiogram that was done in August 2019 showed bilateral no nocclusive pulmonary emboli with filling defects bilaterally. The patient also had an echocardiogram that was done at that time showed an ejection fraction of 5055% without evidence of any right ventricular strain pattern. He subsequently came back to the MRSA problem and in September 2019 for chest pain or shortness of breath. A repeat CT angiogram was done and showed no evidence of pulmonary e mbolism. There was decreased but persistent mild bilateral pleural effusions. The patient is presenting today because of shortness of breath a few days duration along with some cough.His current d-dimer is at 4.3. Coagulation profile is within normal. Renal function is within normal limits. The white cell count is 11.3 and the patient's influenza screen has been negative. As stated, there is a concern for another recurrent pulmonary embolism based on the smaller filling defects in the left lower lobe pulmonary artery branch and the patient was started back on IV heparin. He is also being treated for an acute COPD exacerbation. He is on DuoNeb nebulized [id number] and IV Solu-Me drol. We came to find other the patient has taken his anticoagulation because of cost. Review of Systems Constitutional: Denies chills, Denies fever Eyes: denies as per HPI, denies blurred vision, denies bulging eye, denies decreased vision, denies diplopia, denies discharge, denies dry eye, denies irritation, denies itching, denies pain, denies photophobia, denies loss of peripheral vision, denies loss of vision, denies tunnel vision/blind spots Ears: deny: decreased hearing, ear discharge, earache, tinnitus Ears, nose, mouth and throat: Denies headache, Denies sore throat Breasts: absent: as per HPI, gynecomastia Cardiovascular: Reports decreased exercise tolerance Respiratory: Reports cough, Reports dyspnea, Reports wheezing Musculoskeletal: Reports limitation of motion, Denies myalgias Musculoskeletal: right: ankle swelling, absent: ankle pain, ankle stiffness Integumentary: Reports wounds (Patient has developed a 1 over the right lower extremity SCDs dropped a shot of gentamicin and currently is being scheduled. There is some residual wound at the level of the stump in the left lower extremity which is healing.) Past Medical History Past Medical History: Coronary Artery Disease (CAD), COPD, Deep Vein Thrombosis (DVT), Hyperlipidemia, Pneumonia, Pulmonary Embolus (PE), Rheumatoid Arthritis (RA), Vascular Disorder (Previous septic arthritis and ultimately leading into a left lower extremity amputation) Additional Past Medical History / Comment(s): History of pancreatitis, 2012 past medical record documents viral pericarditis but pt denies, gastritis, has home O2 at HS only but has not been using. Fluid build up rt lung - previous chest t ube - pt unsure what it is from, BOTTOM TEETH REMOVED 09-01-18, wounds in his right lower extremity, left [id number] stump and left elbow History of Any Multi-Drug Resistant Organisms: MRSA Date of last positivie culture/infection: 11/23/18 MDRO Source:: KNEE Past Surgical History: Heart Catheterization With Stent, Joint Replacement, Orthopedic Surgery Additional Past Surgical History / Comment(s): Total L knee arthroplasty with a spacer in place, R total shoulder replaced, L ankle ORIF d/t fracture, EGD, left rotator cuff repair. 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 Date of Last Stent Placement:: 12/10/16 Past Psychological History: No Psychological Hx Reported Smoking Status: Former smoker Past Alcohol Use History: None Reported Past Drug Use History: None Reported - Past Family History Sister(s) Family Medical History: Cancer Additional Family Medical History / Comment(s): pt's father had ra, mother had 16 children was healthy most of her life age 93 from dementia. Mother Family Medical History: Dementia Additional Family Medical History / Comment(s): Mother from dementia at the age of 93 yrs. Father Family Medical History: Rheumatoid Arthritis (RA) Medications and Allergies Home Medications Medication Instructions Recorded Confirmed Type predniSONE 10 mg PO TID 09/02/18 12/20/19 History oxyCODONE-APAP 10-325MG [Percocet 1 tab PO QID 01/19/19 12/20/19 History 10-325 mg] Albuterol Sulfate [Ventolin HFA] 2 puff INHALATION RT-QID PRN 09/03/19 12/20/19 History Aspirin 81 mg PO DAILY chew 09/06/19 12/20/19 Rx Allergies Allergy/AdvReac Type Severity Reaction Status Date / Time No Known Allergies Allergy Verified 12/20/19 14:25 Physical Exam Vitals: Vital Signs Temp Pulse Resp BP Pulse Ox 12/20/19 16:06 88 18 12/20/19 16:00 99 20 150/100 97 12/20/19 15:59 90 18 12/20/19 15:00 74 12 150/100 100 12/20/19 14:30 76 20 180/98 98 12/20/19 12:50 87 12/20/19 12:36 84 12/20/19 12:08 98.6 F 93 26 H 158/95 95 Intake and Output 12/20/19 12/20/19 12/20/19 06:59 14:59 22:59 Other: Weight 79.379 kg Gen. appearance, comfortable with cushingoid features related to chronic steroid use Head exam was generally normal. There was no scleral icterus or corneal arcus. Mucous membranes were moist. neck is supple and the patient has been up at the class IV with significant crowding of the posterior oropharynx. No thrush no goiter or neck masses. No thrush. No goiter or neck masses. lung sounds are diminished and there is some few scattered expiratory wheezes heard bilaterally upon exhalation Cardiac exam revealed the PMI to be normally situated and sized. The rhythm was regular and no extrasystoles were noted during several minutes of auscultation. The first and second heart sounds were normal and physiologic splitting of the second heart sound was noted. There were no murmurs, rubs, clicks, or gallops. abdomen is obese soft nontender. No direct tenderness rebound tensile guarding. No organomegaly. Extremities the patient has a above-knee amputation left lower extremity. Appropriate dressing is applied to the surrounding at the level of the stump. The patient also has 2 wounds in the right lower extremity and other wound in his left elbow. Pulses are diminished at the present in all 3 extremities There is trace edema in the right lower extremity. The patient has significant joint deformities related to rheumatoid arthritis. Deformities of his hands. Neurologically the patient is awake and alert and there is no focal neurological deficits. Results - Laboratory Findings CBC and BMP: 12/20/19 12:25 12/20/19 12:25 PT/INR, D-dimer PT 10.4 sec (9.0-12.0) 12/20/19 12:25 INR 1.0 (<1.2) 12/20/19 12:25 D-Dimer 4.30 mg/L FEU (<0.60) H 12/20/19 12:25 Abnormal lab findings: Abnormal Labs 12/20/19 12/20/19 12/20/19 12:25 12:25 12:25 WBC 11.3 H RBC 6.09 H MCV 77.9 L MCH 23.8 L MCHC 30.5 L RDW 19.1 H Neutrophils # 9.1 H APTT 20.4 L D-Dimer 4.30 H Sodium 135 L Glucose 100 H ALT 53 H Alkaline Phosphatase 198 H - Diagnostic Findings CT scan - chest: image reviewed Assessment and Plan Plan: 1 pulmonary embolism, likely a recurrent event as the patient was not taking anticoagulation due to cost. The cost of Xarelto was quite high in the order of $500 and the patient stopped anticoagulation around 4 weeks ago. Currently is coming in for evaluation. He has a subsegmental pulmonary embolism in the left lower lobe pulmonary artery and the patient was started on IV heparin. I'm going to transition him to anticoagulation with warfarin. This will be started today. Meanwhile, I think it's reasonable to repeat ultrasound of the right lower extremity to assess the progression and improvement or worsening and extensive DVT that he had in his right lower extremity. 2 COPD with a component of an acute COPD exacerbation. Influenza screen is negative and the patient is on IV Solu-Medrol 3 severe rheumatoid arthritis maintained on high-dose prednisone with a dose ra nging between 30-40 mg. The patient is unable to function without systemic steroids. 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 5 coronary artery disease with previous cardiac catheterization and stenting 6 septic arthritis of the left knee ultimately the patient and up having an above-knee amputation of the left lower extremity 7 pressure ulcer in the right lower extremity as the patient dropped a slow cooker and currently is being seen at the wound center 8 feeling wound at the level of the left lower extremity AKA 9 left elbow ulcer/wound 10 history of pancreatitis 11 history of pericarditis Plan Doppler of the right lower extremity IV heparin per protocol Start Coumadin therapy starting with 7.5 mg on a daily basis and monitor the PT/INR DuoNeb nebulized treatments around the clock IV Solu-Medrol Action therapy at 2 L per minute nasal cannula We'll continue to follow.
--- NOTE | 2019-12-20 17:29 | US ---
"EXAMINATION TYPE: US venous doppler duplex LE RT DATE OF EXAM: 12/20/2019 5:14 PM COMPARISON: NONE CLINICAL HISTORY: DVT/PE. Left AK amputee. Patient stated was on blood thinner, then it was discontin ued SIDE PERFORMED: Right ordered with added left leg veins due to DVT seen in left leg TECHNIQUE: The lower extremity deep venous system is examined utilizing real time linear array sonog aida with graded compression, doppler sonography and color-flow sonography. VESSELS IMAGED: Common Femoral Vein Deep Femoral Vein Greater Saphenous Vein * Femoral Vein Popliteal Vein Small Saphenous Vein * Proximal Calf Veins (* superficial vessels) Right Leg: Chronic wall changes seen right Femoral Vein at valves and mid right Femoral Vein, and at wall valves at Popliteal Vein, but color flow patency is noted throughout assessed veins right leg. Left Leg: Non occluding DVT noted left CFV thus additional images of left Femoral Vein were document ed. Non occluding DVT also noted in Left Femoral Vein throughout. Grayscale, color doppler, spectral doppler imaging performed of the deep veins of the right lower ext remity. IMPRESSION: No new acute DVT in the right lower extremity but there is partially occlusive age-indet erminate thrombus throughout the visualized portion of the left common and superficial femoral vein. Acute thrombus at this level cannot be excluded. Correlate clinically. A Yellow level critical message alert has been initiated for Jone Saunders MD via the [employer] 36 0 | Critical Results System on 12/20/2019 5:27 PM. This message alert has been sent to Jone Saunders MD via the preferences provided by the clinician for the receipt of Radiology Critical Findings. Mess age ID [id number]."
[2019-12-20] MEDS ORDERED: WARFARIN 7.5 MG TAB PO SCH (18:00)
[2019-12-20] MEDS: MORPHINE SULFATE 2 MG/ML SYRINGE IVP PRN (19:58)
[2019-12-20] MEDS: methylPREDNISolone SOD SUCCI 125 MG/2 ML VIAL IV SCH (19:59)
[2019-12-20] MEDS ORDERED: TEMAZEPAM 15 MG CAP PO PRN (20:19)
[2019-12-20] MEDS ORDERED: ALPRAZolam 0.25 MG TAB PO PRN (20:19)
[2019-12-20] MEDS ORDERED: ACETAMINOPHEN TAB 500 MG TAB PO PRN (20:19)
[2019-12-20] MEDS ORDERED: WARFARIN 10 MG TAB PO ONE (20:30)
[2019-12-20] MEDS ORDERED: AZITHROMYCIN 500 MG in SODIUM CHLORIDE 0.9% 250 ML IVPB SCH (21:00)
[2019-12-20 21:26] LABS: Glucose,Whole Blood 278 mg/dL (75-99)
[2019-12-20] MEDS: oxyCODONE-APAP 10-325MG 1 EACH TAB PO SCH (21:41)
[2019-12-20] MEDS: INSULIN ASPART (NovoLOG) 100 UNIT/ML VIAL SQ SCH (21:42)
--- NOTE | 2019-12-20 22:41 | HP ---
HISTORY AND PHYSICAL DATE OF SERVICE: 12/20/2019. I am covering for Dr. Montemayor and Dr. Steven. CHIEF COMPLAINT: Shortness of breath and chest pain. HISTORY OF PRESENT: This 74-year-old gentleman with a past medical history of multiple medical problems including history of CAD, COPD, DVT, history of hyperlipidemia, history of pulmonary embolism, history of rheumatoid arthritis, history of vascular disease, history of pancreatitis, history of CAD/stent being followed by Dr. Ruthy Montemayor in the outpatient setting, not feeling well over the past several days. The patient also had acute bilateral pulmonary embolism in August of last year and as well as an extensive DVT involving the left leg system. The patient also had multiple bilateral ulcerations also. Patient had amputation of the left above-knee amputation and the stump is actually healing at this time. The patient had multiple ulcers on the right leg. The patient has been seen by Wound Care at this time. There is no history of fever, rigors or chills. No history of headache, loss of consciousness or seizures. As mentioned earlier, the patient is complaining of mainly shortness of breath and some dry cough and the evaluation showed elevated WBC. is negative. A chest x-ray was done on admission, which was personally reviewed by me and showed evidence of possible left lower pneumonia. Otherwise, a CT angio of the chest was done to rule out the possibility of acute pulmonary embolism. CTA showed subacute to chronic pulmonary embolism. There is no history of fever, rigors. No history of headache, loss of consciousness or seizures. Dr. Manley has seen the patient from the pulmonary point of view and was thought to be recurrent anticoagulation, because the patient is not taking Xarelto because of the extremely high co-pay. The patient stopped Xarelto about 4 weeks ago. A venous Doppler was also done which showed again evidence of partial occlusive thrombus in the left venous system. There is no history of fever, rigors, chills at this time. PAST MEDICAL HISTORY: History of CAD, COPD, DVT, hyperlipidemia, history of pneumonia, pulmonary embolism, rheumatoid arthritis, history of CAD/stent. HOME MEDICATIONS: 1. Prednisone 10 mg p.o. t.i.d.. 2. Oxycodone 1 tablet p.o. q.i.d. 3. Aspirin 81 mg. 4. Albuterol 2 puffs q.i.d. p.r.n. ALLERGIES: None. FAMILY HISTORY: History of dementia. SOCIAL HISTORY: History of THC, history of smoking. REVIEW OF SYSTEMS: ENT: No diminished hearing. No diminished vision. Cardiovascular as mentioned earlier. Respiratory: As mentioned earlier. GI no nausea or vomiting. no dysuria. Nervous system: No numbness or weakness. ALLERGY/IMMUNOLOGY: No asthma or hayfever. MUSCULOSKELETAL as mentioned earlier. HEMATOLOGY/ONCOLOGY: No history of anemia. ENDOCRINE: No history of diabetes or hypothyroidism. CONSTITUTIONAL: As mentioned earlier. DERMATOLOGY as mentioned earlier. Rheumatology: Negative. Psychiatric: As mentioned earlier. PHYSICAL EXAM: Patient is alert, oriented x3. Pulse 115, blood pressure 120/78. Respiration 16. Temperature 98.2, pulse ox 97% on 2 L. HEENT: Conjunctivae normal. Oral mucosa moist. NECK is no jugular venous distention. No carotid bruit. No lymph node enlargement. CARDIOVASCULAR S1, S2, regular. Tachycardia. RESPIRATION: Breath sounds diminished in the bases. Bilateral scattered rhonchi and expiratory wheezing and crackles. ABDOMEN: Soft, nontender. No mass palpable. LEGS status post left above-knee amputation. Multiple ulcerations on the right leg present. The stump site is some minimal discharge. Nervous system: Higher functions as mentioned. Moves all four limbs. No focal motor or sensory deficits. SKIN: As mentioned earlier. JOINTS: No active deforming arthropathy. LABS: WBC 11.2, hemoglobin is 14.5. D-dimer is 4.30, and ALT is 53, alkaline phosphatase 198. Influenza negative. ASSESSMENT: 1. Shortness of breath, possible chronic obstructive pulmonary disease acute exacerbation as well as pulmonary embolism, acute on chronic. 2. Possible left lower pneumonia gram-negative. 3. History of noncompliance with Xarelto, because of the financial reasons. 4. Elevated D-dimer with possibly acute pulmonary embolism. 5. Increased WBC. 6. Microcytosis. 7. Hyponatremia. 8. Increased ALT with elevated alkaline phosphatase. 9. History of coronary artery disease. 10.History of chronic obstructive pulmonary disease. 11.History of deep vein thrombosis. 12.Hyperlipidemia. 13.History of pneumonia. 14.History of pulmonary embolism. 15.History of rheumatoid arthritis. 16.History of vascular disorder. 17.History of pancreatitis. 18.History of viral pericarditis. 19.History of left above -knee amputation. 20.History of MRSA. 21.History of coronary artery disease/stent. 22.History of degenerative joint disease. 23.History of anxiety, depression. 24.History of nicotine dependence. 25.FULL CODE. RECOMMENDATIONS AND DISCUSSION: This 74-year-old gentleman who presented with multiple complex medical issues, we will monitor the patient closely, continue the current medications, management and symptomatic treatment. I would optimize bronchodilator treatment, IV heparin. Otherwise Dr. Manley already consulted. I would also recommend a short course of antibiotics because of the abnormal chest x-ray. Otherwise, resume the rest of the home medications. We will consult Infectious Disease as well. Otherwise, Social Work, Case Management will be consulted and the patient might be a candidate for Coumadin at this time. Rather than the anticoagulants, which may not be covered by the patient's insurance. We will continue to monitor and further recommendations to follow. A copy of this dictation being forwarded to Dr. Ruthy Montemayor. FLORY / CAMILLEN: [id number] / [id number]
[2019-12-21] MEDS: methylPREDNISolone SOD SUCCI 125 MG/2 ML VIAL IV SCH ×4 (00:05→17:31)
[2019-12-21] MEDS: MORPHINE SULFATE 2 MG/ML SYRINGE IVP PRN ×4 (03:43→22:50)
[2019-12-21 06:21] LABS: Glucose,Whole Blood 153 mg/dL (75-99)
[2019-12-21 06:29] LABS: Anisocytosis Slight; Basophils % (A) 0 %; Eosinophils % (A) 0 %; HCT 42.1 % (39.0-53.0); HGB 12.7 gm/dL (13.0-17.5); Hypochromasia Slight; Lymphocytes # (A) 1.4 k/uL (1.0-4.8); Lymphocytes % (A) 11 %; MCH 23.8 pg (25.0-35.0); MCHC 30.1 g/dL (31.0-37.0); Mean Platelet Volume 7.2; Microcytosis Slight; Monocytes # (A) 0.2 k/uL (0-1.0); Monocytes % (A) 2 %; Neutrophils # (A) 11.1 k/uL (1.3-7.7); Neutrophils % (A) 87 %; Platelet Count 411 k/uL (150-450); RBC 5.33 m/uL (4.30-5.90); RDW 18.9 % (11.5-15.5); WBC 12.8 k/uL (3.8-10.6)
[2019-12-21] MEDS: PANTOPRAZOLE 40 MG TABLET PO SCH (06:32)
[2019-12-21] MEDS: INSULIN ASPART (NovoLOG) 100 UNIT/ML VIAL SQ SCH ×4 (06:32→21:44)
[2019-12-21 06:40] LABS: INR 1.3 (<1.2); Prothrombin Time 12.7 sec (9.0-12.0)
[2019-12-21 07:10] LABS: African American GFR (CKD) >90 (>60 ml/min/1.73 sqM); Anion Gap 9 mmol/L; Blood Urea Nitrogen 18 mg/dL (9-20); Calcium 8.6 mg/dL (8.4-10.2); Carbon Dioxide 20 mmol/L (22-30); Chloride 107 mmol/L (98-107); Glucose 181 mg/dL (74-99); Non-African American GFR(CKD) >90 (>60 ml/min/1.73 sqM); Potassium 3.8 mmol/L (3.5-5.1); Sodium 136 mmol/L (137-145)
[2019-12-21] MEDS: FORMOTEROL FUMARATE 20 MCG/2 ML NEBU INHALATION SCH ×2 (07:43→19:08)
[2019-12-21] MEDS: BUDESONIDE 1 MG/2 ML NEBU INHALATION SCH ×2 (07:43→19:08)
[2019-12-21] MEDS: IPRATROPIUM-ALBUTEROL 3 ML NEB INHALATION SCH ×4 (07:43→19:08)
[2019-12-21] MEDS: oxyCODONE-APAP 10-325MG 1 EACH TAB PO SCH ×4 (09:15→21:41)
[2019-12-21] MEDS: ASPIRIN 81 MG PO SCH (09:15)
[2019-12-21] MEDS: HEPARIN SOD,PORK IN 0.45% NACL 25,000 UNIT in 0.45% NACL 1 250ML.BAG IV SCH (09:16)
[2019-12-21 12:08] LABS: Glucose,Whole Blood 169 mg/dL (75-99)
--- NOTE | 2019-12-21 13:03 | P.PN ---
Subjective Progress Note Date: 12/21/19 On today's evaluation of 12/21/2019 the patient is feeling well. No new complaints. The patient is currently on IV heparin. Doppler of the lower extremity showed no evidence of any new clots in the right lower extremity. There is partial occlusive indeterminate thrombus visualized in the left common and superficial femoral vein. His COPD exacerbations also improving as the patient is less short of breath. The patient got 10 mg of Coumadin and the PT/INR is still subtherapeutic. Objective - Vital Signs Vital signs: Vital Signs Temp 98.2 F 12/21/19 08:00 Pulse 90 12/21/19 11:48 Resp 20 12/21/19 11:20 BP 147/87 12/21/19 11:20 Pulse Ox 98 12/21/19 11:20 Intake & Output 12/20/19 12/21/19 12/21/19 18:59 06:59 18:59 Intake Total 921.454 326.184 Output Total 250 Balance 671.454 326.184 Weight 79.379 kg 77.9 kg Intake: IV 71.44 Heparin Sod,Pork in 0.45% 71.44 NaCl 25,000 unit In 0.45 % NaCl 1 250ml.bag @ 18 UNITS/KG/HR 14.288 mls/hr IV .[id number] [facility] Rx#: [id number] Intake, IV Titration 490.014 206.184 Amount Azithromycin 500 mg In 250 Sodium Chloride 0.9% 250 ml @ 250 mls/hr IVPB HS [facility] Rx#:[id number] Heparin Sod,Pork in 0.45% 90.014 206.184 NaCl 25,000 unit In 0.45 % NaCl 1 250ml.bag @ 18 UNITS/KG/HR 14.288 mls/hr IV .[id number] [facility] Rx#: [id number] Sodium Chloride 0.9% 1, 100 000 ml @ 20 mls/hr IV . Q24H [facility] Rx#:[id number] cefTRIAXone 1 gm In 50 Sodium Chloride 0.9% 50 ml @ 100 mls/hr IVPB Q24H [facility] Rx#:[id number] Oral 360 120 Output: Urine 250 Other: Voiding Method Toilet Toilet Toilet # Voids 1 - Exam Gen. appearance, comfortable with cushingoid features related to chronic steroid use Head exam was generally normal. There was no scleral icterus or corneal arcus. Mucous membranes were moist. neck is supple and the patient has been up at the class IV with significant crowding of the posterior oropharynx. No thrush no goiter or neck masses. No thrush. No goiter or neck masses. lung sounds are diminished and there is some few scattered expiratory wheezes heard bilaterally upon exhalation Cardiac exam revealed the PMI to be normally situated and sized. The rhythm was regular and no extrasystoles were noted during several minutes of auscultation. The first and second heart sounds were normal and physiologic splitting of the second heart sound was noted. There were no murmurs, rubs, clicks, or gallops. abdomen is obese soft nontender. No direct tenderness rebound tensile guarding. No organomegaly. Extremities the patient has a above-knee amputation left lower extremity. Appropriate dressing is applied to the surrounding at the level of the stump. The patient also has 2 wounds in the right lower extremity and other wound in his left elbow. Pulses are diminished at the present in all 3 extremities There is trace edema in the right lower extremity. The patient has significant joint deformities related to rheumatoid arthritis. Deformities of his hands. Neurologically the patient is awake and alert and there is no focal neurological deficits. - Labs CBC & Chem 7: 12/21/19 05:25 12/21/19 05:25 Labs: Abnormal Lab Results - Last 24 Hours (Table) 12/20/19 12/20/19 12/20/19 Range/Units 12:25 20:37 21:25 WBC (3.8-10.6) k/uL Hgb (13.0-17.5) gm/dL MCV (80.0-100.0) fL MCH (25.0-35.0) pg MCHC (31.0-37.0) g/dL RDW (11.5-15.5) % Neutrophils # (1.3-7.7) k/uL PT (9.0-12.0) sec INR (<1.2) APTT 20.4 L 57.3 H (22.0-30.0) sec D-Dimer 4.30 H (<0.60) mg/L FEU Sodium (137-145) mmol/L Carbon Dioxide (22-30) mmol/L Creatinine (0.66-1.25) mg/dL Glucose (74-99) mg/dL POC Glucose (mg/dL) 278 H (75-99) mg/dL 12/21/19 12/21/19 12/21/19 Range/Units 05:25 05:25 05:25 WBC 12.8 H (3.8-10.6) k/uL Hgb 12.7 L (13.0-17.5) gm/dL MCV 79.0 L (80.0-100.0) fL MCH 23.8 L (25.0-35.0) pg MCHC 30.1 L (31.0-37.0) g/dL RDW 18.9 H (11.5-15.5) % Neutrophils # 11.1 H (1.3-7.7) k/uL PT 12.7 H (9.0-12.0) sec INR 1.3 H (<1.2) APTT (22.0-30.0) sec D-Dimer (<0.60) mg/L FEU Sodium 136 L (137-145) mmol/L Carbon Dioxide 20 L (22-30) mmol/L Creatinine 0.65 L (0.66-1.25) mg/dL Glucose 181 H (74-99) mg/dL POC Glucose (mg/dL) (75-99) mg/dL 12/21/19 12/21/19 12/21/19 Range/Units 06:19 10:25 11:54 WBC (3.8-10.6) k/uL Hgb (13.0-17.5) gm/dL MCV (80.0-100.0) fL MCH (25.0-35.0) pg MCHC (31.0-37.0) g/dL RDW (11.5-15.5) % Neutrophils # (1.3-7.7) k/uL PT (9.0-12.0) sec INR (<1.2) APTT 119.5 H* (22.0-30.0) sec D-Dimer (<0.60) mg/L FEU Sodium (137-145) mmol/L Carbon Dioxide (22-30) mmol/L Creatinine (0.66-1.25) mg/dL Glucose (74-99) mg/dL POC Glucose (mg/dL) 153 H 169 H (75-99) mg/dL Assessment and Plan Plan: 1 pulmonary embolism, likely a recurrent event as the patient was not taking anticoagulation due to cost. The cost of Xarelto was quite high in the order of $500 and the patient stopped anticoagulation around 4 weeks ago. Currently is coming in for evaluation. He has a subsegmental pulmonary embolism in the left lower lobe pulmonary artery and the patient was started on IV heparin. I'm going to transition him to anticoagulation with warfarin. This will be started today. Meanwhile, I think it's reasonable to repeat ultrasound of the right lower extremity to assess the progression and improvement or worsening and extensive DVT that he had in his right lower extremity. 2 COPD with a component of an acute COPD exacerbation. Influenza screen is negative and the patient is on IV Solu-Medrol, improving and is less short of breath 3 severe rheumatoid arthritis maintained on high-dose prednisone with a dose ranging between 30-40 mg. The patient is unable to function without systemic steroids. 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 Action therapy at 2 L per minute nasal cannula We'll continue to follow.
--- NOTE | 2019-12-21 15:54 | P.PN ---
Subjective Progress Note Date: 12/21/19 Principal diagnosis: This is a 74-year-old male who was recently admitted with some shortness of breath and is being closely monitored. Pulmonary is following. Yesterday patient underwent venous Doppler showing evidence of partial occlusive thrombus in the left venous system. Patient does have a history of blood clots of the lower extremities and in the lungs and was taking Xarelto but has discontinued due to the high co-pay. Patient is currently on IV heparin drip and will continue at this time. PT was elevated today and protocol was followed. Will continue to monitor labs closely. Patient is currently being started on Coumadin although continues to be subtherapeutic. Current INR is 1.3. Will repeat a.m. labs. Currently no reports of chest pain, worsening shortness of breath, or palpitations. Patient is afebrile. No reports of nausea or vomiting and patient is tolerating diet. Wound care is also following as the patient has ulcerations to the right lower extremity and a wound of the left elbow status post fall out of his wheelchair previously. Objective - Vital Signs Vital signs: Vital Signs Temp 98.2 F 12/21/19 08:00 Pulse 96 12/21/19 15:29 Resp 18 12/21/19 15:29 BP 147/87 12/21/19 11:20 Pulse Ox 95 12/21/19 15:29 Intake & Output 12/20/19 12/21/19 12/21/19 18:59 06:59 18:59 Intake Total 921.454 446.184 Output Total 250 Balance 671.454 446.184 Weight 79.379 kg 77.9 kg Intake: IV 71.44 Heparin Sod,Pork in 0.45% 71.44 NaCl 25,000 unit In 0.45 % NaCl 1 250ml.bag @ 18 UNITS/KG/HR 14.288 mls/hr IV .[id number] [facility] Rx#: [id number] Intake, IV Titration 490.014 206.184 Amount Azithromycin 500 mg In 250 Sodium Chloride 0.9% 250 ml @ 250 mls/hr IVPB HS [facility] Rx#:[id number] Heparin Sod,Pork in 0.45% 90.014 206.184 NaCl 25,000 unit In 0.45 % NaCl 1 250ml.bag @ 18 UNITS/KG/HR 14.288 mls/hr IV .[id number] [facility] Rx#: [id number] Sodium Chloride 0.9% 1, 100 000 ml @ 20 mls/hr IV . Q24H [facility] Rx#:[id number] cefTRIAXone 1 gm In 50 Sodium Chloride 0.9% 50 ml @ 100 mls/hr IVPB Q24H [facility] Rx#:[id number] Oral 360 240 Output: Urine 250 Other: Voiding Method Toilet Toilet Toilet # Voids 0 - Exam Gen: This is a 74-year-old male lying in bed, awake, alert and oriented 3, well-developed, well-nourished. Temp is 98.2F, pulse is 81, respirations are 20, blood pressures 168/96, oxygen saturation is 96% on 2 L via nasal cannula. HEENT: Head is atraumatic, normocephalic. Pupils equal, round. Sclerae is anicteric. NECK: Supple. No JVD. No lymphadenopathy. No thyromegaly. LUNGS: Diminished breath sounds at the bases with some scattered rhonchi and expiratory wheezing noted. No intercostal retractions. HEART: S1, S2 are muffled. ABDOMEN: Soft. Bowel sounds are present. No masses. No tenderness. EXTREMITIES: No pedal edema. No calf tenderness. Left pvryp-lec-lujg application noted. Multiple right lower extremity ulcerations noted with dressings. Left elbow dressing is dry and intact. NEUROLOGICAL: Patient is awake, alert and oriented x3. Cranial nerves 2 through 12 are grossly intact. - Labs CBC & Chem 7: 12/21/19 05:25 12/21/19 05:25 Labs: Abnormal Lab Results - Last 24 Hours (Table) 12/20/19 12/20/19 12/21/19 Range/Units 20:37 21:25 05:25 WBC 12.8 H (3.8-10.6) k/uL Hgb 12.7 L (13.0-17.5) gm/dL MCV 79.0 L (80.0-100.0) fL MCH 23.8 L (25.0-35.0) pg MCHC 30.1 L (31.0-37.0) g/dL RDW 18.9 H (11.5-15.5) % Neutrophils # 11.1 H (1.3-7.7) k/uL PT (9.0-12.0) sec INR (<1.2) APTT 57.3 H (22.0-30.0) sec Sodium (137-145) mmol/L Carbon Dioxide (22-30) mmol/L Creatinine (0.66-1.25) mg/dL Glucose (74-99) mg/dL POC Glucose (mg/dL) 278 H (75-99) mg/dL 12/21/19 12/21/19 12/21/19 Range/Units 05:25 05:25 06:19 WBC (3.8-10.6) k/uL Hgb (13.0-17.5) gm/dL MCV (80.0-100.0) fL MCH (25.0-35.0) pg MCHC (31.0-37.0) g/dL RDW (11.5-15.5) % Neutrophils # (1.3-7.7) k/uL PT 12.7 H (9.0-12.0) sec INR 1.3 H (<1.2) APTT (22.0-30.0) sec Sodium 136 L (137-145) mmol/L Carbon Dioxide 20 L (22-30) mmol/L Creatinine 0.65 L (0.66-1.25) mg/dL Glucose 181 H (74-99) mg/dL POC Glucose (mg/dL) 153 H (75-99) mg/dL 12/21/19 12/21/19 Range/Units 10:25 11:54 WBC (3.8-10.6) k/uL Hgb (13.0-17.5) gm/dL MCV (80.0-100.0) fL MCH (25.0-35.0) pg MCHC (31.0-37.0) g/dL RDW (11.5-15.5) % Neutrophils # (1.3-7.7) k/uL PT (9.0-12.0) sec INR (<1.2) APTT 119.5 H* (22.0-30.0) sec Sodium (137-145) mmol/L Carbon Dioxide (22-30) mmol/L Creatinine (0.66-1.25) mg/dL Glucose (74-99) mg/dL POC Glucose (mg/dL) 169 H (75-99) mg/dL Microbiology - Last 24 Hours (Table) 12/20/19 12:25 Blood Culture - Preliminary Blood No Growth after 24 hours Assessment and Plan Assessment: Shortness of breath, possible chronic obstructive pulmonary disease, acute exacerbation as well as pulmonary embolism, acute on chronic Possible left lower lobe pneumonia gram-negative History of noncompliance with Xarelto, because of financial reasons Elevated d-dimer with possibly acute pulmonary embolism Increased WBC Microcytosis Hyponatremia Increased ALT with elevated alkaline phosphatase History of coronary artery disease History of chronic obstructive pulmonary disease history of deep vein thrombosis Hyperlipidemia History of pneumonia History of pulmonary embolism history of rheumatoid arthritis history of vascular disorder History of pancreatitis history of viral pericarditis History of left jcwwa-rue-seng amputation History of MRSA History of coronary artery diseasestent History of degenerative joint disease History of anxiety, depression History of nicotine dependence Full code Recommendations and discussion: Recommend to continue current medications, management, and symptomatic treatment. Continue with IV heparin and monitor labs closely. Continue with bronchodilators, antibiotics, and steroids at this time. Currently working on Coumadin as the patient is unable to afford Xarelto. Will repeat a.m. labs. Due to complex medical issues, prognosis is guarded. Further recommendations to follow. Case management and social work following for possible discharge planning needs.
[2019-12-21 17:08] LABS: Glucose,Whole Blood 181 mg/dL (75-99)
[2019-12-21] MEDS ORDERED: WARFARIN 10 MG TAB PO ONE (18:00)
[2019-12-21] MEDS: SODIUM CHLORIDE 0.9% 1,000 ML IV SCH (20:28)
[2019-12-21 20:46] LABS: Glucose,Whole Blood 318 mg/dL (75-99)
[2019-12-21] MEDS: AZITHROMYCIN 500 MG TAB PO SCH (21:42)
--- NOTE | 2019-12-21 23:07 | P.CONS ---
History of Present Illness - Reason for Consult Consult date: 12/21/19 leg wounds Requesting physician: Parker Fry - Chief Complaint shortness of breath x few days - History of Present Illness Patient is a 74-year-old male who has been sent to the ER from [facility] for evaluation of increasing shortness of breath patient has been complaining of worsening shortness breath for last few days shortness of breath mostly on minimal exertion even at rest patient did have bradycardia minimal occasional minimal dry cough but no sputum production no significant chest pain no URI symptoms no nausea vomiting no abdominal pain or any diarrhea with the symptom for the patient has been evaluated in the ER on arrival to the ER the patient has been afebrile patient did have my read) (the repeat is 12.8 influenza PCR was negative the patient did have a chest x-ray followed by CT angiogram we did shows pulmonary embolism no evidence of acute or chronic pulmonary embolism patient has been admitted to hospital for anticoagulation patient did have a venous Doppler lower extremity which did shows a chronic right leg DVT, patient did have a wound to the left BKA stump and the left elbow which has been chronic for him I was asked to see the patient regarding management of the wound to the H. Left elbow and leg area patient apparently also have wound to the right leg which was addressed by the wound care nurse the day of presentation the hospital instruction for the dressing not to be changed. Patient had did have a chronic nonhealing wound to the left BKA stump however patient currently does not have any symptoms of pain swelling or redness to it and is been purulent drainage the wound to the left elbow has been there for couple of weeks now and started as a trauma patient currently with no pain swelling to the left elbow wound either. Review of Systems Positive point has been mentioned in HPI rest of the systems are negative Past Medical History Past Medical History: Coronary Artery Disease (CAD), COPD, Deep Vein Thrombosis (DVT), Hyperlipidemia, Pneumonia, Pulmonary Embolus (PE), Rheumatoid Arthritis (RA), Vascular Disorder Additional Past Medical History / Comment(s): History of pancreatitis, 2012 past medical record documents viral pericarditis but pt denies, gastritis, Fluid build up rt lung - previous chest tube - pt unsure what it is from, BOTTOM TEETH REMOVED 09-01-18, wounds in his right lower extremity, left qcjoe-fii-gkks stump and left elbow History of Any Multi-Drug Resistant Organisms: MRSA Year Discovered:: 11/23/18 MDRO Source:: KNEE Past Surgical History: Heart Catheterization With Stent, Joint Replacement, Orthopedic Surgery Additional Past Surgical History / Comment(s): Total L knee arthroplasty with a spacer in place, R total shoulder replaced, L ankle ORIF d/t fracture, EGD, left rotator cuff repair. right ankle sx, thoracentesis, chest tube rt lung, LT above the knee amputation -2018 Past Anesthesia/Blood Transfusion Reactions: No Reported Reaction Additional Past Anesthesia/Blood Transfusion Reaction / Comm: Pt states he has never recieved blood. Date of Last Stent Placement:: 12/10/16 Past Psychological History: Anxiety, Depression Additional Psychological History / Comment(s): Patient was a smoker one to one a nd half packs per day for 40+ years and quit 2 years ago when he had cardiac stents done. He uses a synthetic marijuana at nighttime only for his arthritis to help him sleep. He denies any other street drug use, alcohol use. 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 He lives at home with his . Smoking Status: Current some day smoker Past Alcohol Use History: None Reported Additional Past Alcohol Use History / Comment(s): Patient was a smoker one to one and half packs per day for 40+ years and quit in 2016 when he had cardiac stents done. Past Drug Use History: None Reported - Past Family History Sister(s) Family Medical History: Cancer Additional Family Medical History / Comment(s): pt's father had ra, mother had 16 children was healthy most of her life age 93 from dementia. Mother Family Medical History: Dementia Additional Family Medical History / Comment(s): Mother from dementia at the age of 93 yrs. Father Family Medical History: Rheumatoid Arthritis (RA) Medications and Allergies Home Medications Medication Instructions Recorded Confirmed Type predniSONE 10 mg PO TID 09/02/18 12/20/19 History oxyCODONE-APAP 10-325MG [Percocet 1 tab PO QID 01/19/19 12/20/19 History 10-325 mg] Albuterol Sulfate [Ventolin HFA] 2 puff INHALATION RT-QID PRN 09/03/19 12/20/19 History Aspirin 81 mg PO DAILY chew 09/06/19 12/20/19 Rx Allergies Allergy/AdvReac Type Severity Reaction Status Date / Time No Known Allergies Allergy Verified 12/20/19 14:25 Physical Exam Vitals: Vital Signs Temp Pulse Pulse Resp BP Pulse Ox 12/21/19 20:00 98.1 F 117 H 20 130/76 97 12/21/19 19:35 68 18 12/21/19 19:22 90 18 12/21/19 19:08 92 18 12/21/19 16:28 97.8 F 99 20 138/87 96 12/21/19 15:39 94 18 12/21/19 15:29 96 18 95 12/21/19 14:15 96 20 12/21/19 11:48 90 12/21/19 11:37 90 12/21/19 11:20 96 20 147/87 98 12/21/19 08:03 89 12/21/19 08:00 98.2 F 81 20 168/96 96 12/21/19 07:54 88 12/21/19 07:53 88 12/21/19 07:43 88 12/21/19 03:56 80 14 12/21/19 03:38 97.6 F 80 14 138/90 98 12/21/19 00:00 98.3 F 93 14 136/80 97 Intake and Output 12/21/19 12/21/19 12/22/19 14:59 22:59 06:59 Intake Total 446.184 317.396 Output Total 200 Balance 446.184 117.396 Intake: Intake, IV Titration 206.184 77.396 Amount Heparin Sod,Pork in 0.45% 206.184 77.396 NaCl 25,000 unit In 0.45 % NaCl 1 250ml.bag @ 18 UNITS/KG/HR 14.288 mls/hr IV .[id number] [facility] Rx#: [id number] Oral 240 240 Output: Urine 200 Other: Voiding Method Toilet # Voids 0 GENERAL DESCRIPTION: Elderly male lying in bed, no distress. No tachypnea or accessory muscle of respiration use. HEENT: Shows Pallor , no scleral icterus. Oral mucous membrane is dry. NECK: Trachea central, no thyromegaly. LUNGS: Unlabored breathing. Decreased breath sound at bases. No wheeze or crackle. HEART: S1, S2, regular rate and rhythm. ABDOMEN: Soft, no tenderness , guarding or rigidity EXTREMITIES: No edema of feet. Left BKA stump wound with no slough tissue no surrounding swelling redness swelling foul-smelling drainage, Left elbow wound with no slough tissue no surrounding swelling redness swelling foul-smelling drainage, SKIN: No rash, no masses palpable. NEUROLOGICAL: The patient is awake, alert, oriented x3, mood and affect normal. Results CBC & Chem 7: 12/21/19 05:25 12/21/19 05:25 Labs: Abnormal Lab Results - Last 24 Hours (Table) 12/21/19 12/21/19 12/21/19 Range/Units 05:25 05:25 05:25 WBC 12.8 H (3.8-10.6) k/uL Hgb 12.7 L (13.0-17.5) gm/dL MCV 79.0 L (80.0-100.0) fL MCH 23.8 L (25.0-35.0) pg MCHC 30.1 L (31.0-37.0) g/dL RDW 18.9 H (11.5-15.5) % Neutrophils # 11.1 H (1.3-7.7) k/uL PT 12.7 H (9.0-12.0) sec INR 1.3 H (<1.2) APTT (22.0-30.0) sec Sodium 136 L (137-145) mmol/L Carbon Dioxide 20 L (22-30) mmol/L Creatinine 0.65 L (0.66-1.25) mg/dL Glucose 181 H (74-99) mg/dL POC Glucose (mg/dL) (75-99) mg/dL 12/21/19 12/21/19 12/21/19 Range/Units 06:19 10:25 11:54 WBC (3.8-10.6) k/uL Hgb (13.0-17.5) gm/dL MCV (80.0-100.0) fL MCH (25.0-35.0) pg MCHC (31.0-37.0) g/dL RDW (11.5-15.5) % Neutrophils # (1.3-7.7) k/uL PT (9.0-12.0) sec INR (<1.2) APTT 119.5 H* (22.0-30.0) sec Sodium (137-145) mmol/L Carbon Dioxide (22-30) mmol/L Creatinine (0.66-1.25) mg/dL Glucose (74-99) mg/dL POC Glucose (mg/dL) 153 H 169 H (75-99) mg/dL 12/21/19 12/21/19 12/21/19 Range/Units 16:46 18:04 20:45 WBC (3.8-10.6) k/uL Hgb (13.0-17.5) gm/dL MCV (80.0-100.0) fL MCH (25.0-35.0) pg MCHC (31.0-37.0) g/dL RDW (11.5-15.5) % Neutrophils # (1.3-7.7) k/uL PT (9.0-12.0) sec INR (<1.2) APTT 91.6 H (22.0-30.0) sec Sodium (137-145) mmol/L Carbon Dioxide (22-30) mmol/L Creatinine (0.66-1.25) mg/dL Glucose (74-99) mg/dL POC Glucose (mg/dL) 181 H 318 H (75-99) mg/dL Microbiology - Last 24 Hours (Table) 12/20/19 12:25 Blood Culture - Preliminary Blood No Growth after 24 hours Assessment and Plan Assessment: 1-patient with left elbow wound which is traumatic with no evidence of any cellulitis recommend local wound care 2-left BKA stump chronic possible component of pressure but no evidence of any secondary cellulitis recommend local wound care 3-patient being admitted to hospital for PE being managed by pulmonary and prim kameron team (1) Wound of left upper extremity Current Visit: Yes Status: Acute Code(s): S41.102A - UNSPECIFIED OPEN WOUND OF LEFT UPPER ARM, INITIAL ENCOUNTER SNOMED Code(s): 427014722 (2) Leg wound, left Current Visit: Yes Status: Acute Code(s): S81.802A - UNSPECIFIED OPEN WOUND, LEFT LOWER LEG, INITIAL ENCOUNTER SNOMED Code(s): 661530742 Plan: 1-Aquacel dressing to the left BKA stump wound to be changed every 48 hour 2-Aquacel silver dressing to the left elbow wound to be changed every 48 hour 3-no need for systemic antibiotic therapy We will follow on clinical condition and cultures to further adjust medication if needed Thank you for this consultation we will follow the patient along with you Time with Patient: Greater than 30
[2019-12-22] MEDS: methylPREDNISolone SOD SUCCI 125 MG/2 ML VIAL IV SCH ×3 (01:11→13:04)
[2019-12-22] MEDS: MORPHINE SULFATE 2 MG/ML SYRINGE IVP PRN ×4 (04:35→22:41)
[2019-12-22 05:44] LABS: Glucose,Whole Blood 172 mg/dL (75-99)
[2019-12-22 05:45] LABS: Anisocytosis Slight; Basophils % (A) 0 %; Eosinophils % (A) 0 %; HCT 39.3 % (39.0-53.0); HGB 11.7 gm/dL (13.0-17.5); Hypochromasia Moderate; Lymphocytes # (A) 0.7 k/uL (1.0-4.8); Lymphocytes % (A) 5 %; MCH 23.8 pg (25.0-35.0); MCHC 29.8 g/dL (31.0-37.0); Mean Platelet Volume 7.3; Microcytosis Slight; Monocytes # (A) 0.4 k/uL (0-1.0); Monocytes % (A) 3 %; Neutrophils # (A) 13.3 k/uL (1.3-7.7); Neutrophils % (A) 92 %; Platelet Count 374 k/uL (150-450); RBC 4.91 m/uL (4.30-5.90); RDW 18.9 % (11.5-15.5); WBC 14.5 k/uL (3.8-10.6)
[2019-12-22 05:59] LABS: Prothrombin Time 54.4 sec (9.0-12.0)
[2019-12-22 06:05] LABS: African American GFR (CKD) >90 (>60 ml/min/1.73 sqM); Anion Gap 6 mmol/L; Blood Urea Nitrogen 16 mg/dL (9-20); Calcium 8.4 mg/dL (8.4-10.2); Carbon Dioxide 22 mmol/L (22-30); Chloride 108 mmol/L (98-107); Glucose 159 mg/dL (74-99); Non-African American GFR(CKD) >90 (>60 ml/min/1.73 sqM); Potassium 3.6 mmol/L (3.5-5.1); Sodium 136 mmol/L (137-145)
[2019-12-22 06:09] LABS: INR 5.4 (<1.2)
[2019-12-22] MEDS: PANTOPRAZOLE 40 MG TABLET PO SCH (06:26)
[2019-12-22] MEDS: HEPARIN SOD,PORK IN 0.45% NACL 25,000 UNIT in 0.45% NACL 1 250ML.BAG IV SCH (06:27)
[2019-12-22] MEDS: INSULIN ASPART (NovoLOG) 100 UNIT/ML VIAL SQ SCH ×4 (06:30→22:07)
[2019-12-22] MEDS: IPRATROPIUM-ALBUTEROL 3 ML NEB INHALATION SCH ×4 (07:58→19:28)
[2019-12-22] MEDS: BUDESONIDE 1 MG/2 ML NEBU INHALATION SCH ×2 (07:58→19:27)
[2019-12-22] MEDS: FORMOTEROL FUMARATE 20 MCG/2 ML NEBU INHALATION SCH ×2 (07:58→19:27)
[2019-12-22] MEDS: oxyCODONE-APAP 10-325MG 1 EACH TAB PO SCH ×4 (09:55→22:06)
[2019-12-22] MEDS: ASPIRIN 81 MG PO SCH (09:56)
[2019-12-22 11:39] LABS: Glucose,Whole Blood 174 mg/dL (75-99)
--- NOTE | 2019-12-22 12:32 | P.PN ---
Subjective Progress Note Date: 12/22/19 On today's evaluation, the patient is being seen in follow-up on 12/22/2019. The patient was on IV heparin and the patient was given 7.5 mg of Coumadin yesterday. His INR today is up to 5.4. Based on this, no further will be given today. He is doing well. No specific complaints. There is a significant jump and his INR from 1.5.4. Rest of the blood work is all within normal limits. He denies having any significant shortness of breath.Ultrasound of lower extremity wound. Meanwhile, the patient was also seen by infectious disease regarding his lower extremity wounds. The patient has Aquacel dressing to his left BKA and Aquacel Silver to his left elbow and there was no need for any systemic antibiotic treatment.Overall pulmonary status is improved. The patient is less bronchospastic and wheezy compared to yesterday. No bleeding complications for now. A repeat PT/INR will be done tomorrow. Objective - Vital Signs Vital signs: Vital Signs Temp 98.1 F 12/21/19 20:00 Pulse 77 12/22/19 11:09 Resp 18 12/22/19 08:00 BP 173/94 12/22/19 08:00 Pulse Ox 99 12/22/19 08:00 Intake & Output 12/21/19 12/22/19 12/22/19 18:59 06:59 18:59 Intake Total 686.184 832.329 120 Output Total 400 600 Balance 686.184 432.329 -480 Weight 74.6 kg Intake: Intake, IV Titration 206.184 172.329 Amount Heparin Sod,Pork in 0.45% 206.184 172.329 NaCl 25,000 unit In 0.45 % NaCl 1 250ml.bag @ 18 UNITS/KG/HR 14.288 mls/hr IV .[id number] [facility] Rx#: [id number] Oral 480 660 120 Output: Urine 400 600 Other: Voiding Method Toilet Toilet Toilet # Voids 0 0 0 # Bowel Movements 0 - Exam Gen. appearance, comfortable with cushingoid features related to chronic steroid use Head exam was generally normal. There was no scleral icterus or corneal arcus. Mucous membranes were moist. neck is supple and the patient has been up at the class IV with significant crowding of the posterior oropharynx. No thrush no goiter or neck masses. No thrush. No goiter or neck masses. lung sounds are diminished and there is some few scattered expiratory wheezes heard bilaterally upon exhalation Cardiac exam revealed the PMI to be normally situated and sized. The rhythm was regular and no extrasystoles were noted during several minutes of auscultation. The first and second heart sounds were normal and physiologic splitting of the second heart sound was noted. There were no murmurs, rubs, clicks, or gallops. abdomen is obese soft nontender. No direct tenderness rebound tensile guard ing. No organomegaly. Extremities the patient has a above-knee amputation left lower extremity. Ap propriate dressing is applied to the surrounding at the level of the stump. The patient also has 2 wounds in the right lower extremity and other wound in his left elbow. Pulses are diminished at the present in all 3 extremities There is trace edema in the right lower extremity. The patient has significant joint deformities related to rheumatoid arthritis. Deformities of his hands. Neurologically the patient is awake and alert and there is no focal neurological deficits. - Labs CBC & Chem 7: 12/22/19 05:31 12/22/19 05:31 Labs: Abnormal Lab Results - Last 24 Hours (Table) 12/21/19 12/21/19 12/21/19 Range/Units 16:46 18:04 20:45 WBC (3.8-10.6) k/uL Hgb (13.0-17.5) gm/dL MCH (25.0-35.0) pg MCHC (31.0-37.0) g/dL RDW (11.5-15.5) % Neutrophils # (1.3-7.7) k/uL Lymphocytes # (1.0-4.8) k/uL PT (9.0-12.0) sec INR (<1.2) APTT 91.6 H (22.0-30.0) sec Sodium (137-145) mmol/L Chloride (98-107) mmol/L Creatinine (0.66-1.25) mg/dL Glucose (74-99) mg/dL POC Glucose (mg/dL) 181 H 318 H (75-99) mg/dL 12/22/19 12/22/19 12/22/19 Range/Units 01:56 05:31 05:31 WBC 14.5 H (3.8-10.6) k/uL Hgb 11.7 L (13.0-17.5) gm/dL MCH 23.8 L (25.0-35.0) pg MCHC 29.8 L (31.0-37.0) g/dL RDW 18.9 H (11.5-15.5) % Neutrophils # 13.3 H (1.3-7.7) k/uL Lymphocytes # 0.7 L (1.0-4.8) k/uL PT 54.4 H (9.0-12.0) sec INR 5.4 H* (<1.2) APTT 49.1 H (22.0-30.0) sec Sodium (137-145) mmol/L Chloride (98-107) mmol/L Creatinine (0.66-1.25) mg/dL Glucose (74-99) mg/dL POC Glucose (mg/dL) (75-99) mg/dL 12/22/19 12/22/19 12/22/19 Range/Units 05:31 05:43 11:37 WBC (3.8-10.6) k/uL Hgb (13.0-17.5) gm/dL MCH (25.0-35.0) pg MCHC (31.0-37.0) g/dL RDW (11.5-15.5) % Neutrophils # (1.3-7.7) k/uL Lymphocytes # (1.0-4.8) k/uL PT (9.0-12.0) sec INR (<1.2) APTT (22.0-30.0) sec Sodium 136 L (137-145) mmol/L Chloride 108 H (98-107) mmol/L Creatinine 0.60 L (0.66-1.25) mg/dL Glucose 159 H (74-99) mg/dL POC Glucose (mg/dL) 172 H 174 H (75-99) mg/dL Microbiology - Last 24 Hours (Table) 12/20/19 12:25 Blood Culture - Preliminary Blood No Growth after 24 hours Assessment and Plan Plan: 1 pulmonary embolism, likely a recurrent event as the patient was not taking anticoagulation due to cost. The cost of Xarelto was quite high in the order of $500 and the patient stopped anticoagulation around 4 weeks ago. Currently is coming in for evaluation. He has a subsegmental pulmonary embolism in the left lower lobe pulmonary artery and the patient was started on IV heparin. I'm going to transition him to anticoagulation with warfarin. This will be started today. Meanwhile, I think it's reasonable to repeat ultrasound of the right l ower extremity to assess the progression and improvement or worsening and extensive DVT that he had in his right lower extremity. was started on IV heparin. The patient was started on warfarin. On today's evaluation of the 2019 his INR is up to 5.4. No bleeding complications. His IV heparin was be discontinued. 2 COPD with a component of an acute COPD exacerbation. Influenza screen is negative and the patient is on IV Solu-Medrol, improving and patient will be tapered in terms of his steroids. He typically uses prednisone 40 mg regarding his RA. 3 severe rheumatoid arthritis maintained on high-dose prednisone with a dose ranging between 30-40 mg. The patient is unable to function without systemic steroids. 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 No Coumadin for today. Recheck INR tomorrow Prednisone 40 mg by mouth daily. Possible home tomorrow. Action therapy at 2 L per minute nasal cannula We'll continue to follow.
[2019-12-22] MEDS: predniSONE 20 MG TAB PO SCH (12:54)
--- NOTE | 2019-12-22 14:53 | P.PN ---
Subjective Progress Note Date: 12/22/19 Principal diagnosis: This is a 74-year-old male who was recently admitted with some shortness of breath and is being closely monitored. Pulmonary is following. Yesterday patient underwent venous Doppler showing evidence of partial occlusive thrombus in the left venous system. Patient does have a history of blood clots of the lower extremities and in the lungs and was taking Xarelto but has discontinued due to the high co-pay. Patient is currently on IV heparin drip and will continue at this time. PT was elevated today and protocol was followed. Will continue to monitor labs closely. Patient is currently being started on Coumadin although continues to be subtherapeutic. Current INR is 1.3. Will repeat a.m. labs. Currently no reports of chest pain, worsening shortness of breath, or palpitations. Patient is afebrile. No reports of nausea or vomiting and patient is tolerating diet. Wound care is also following as the patient has ulcerations to the right lower extremity and a wound of the left elbow status post fall out of his wheelchair previously. 12/22/2019 Patient is seen and evaluated in follow-up today states he is having overall generalized pain of the right lower extremity and left upper extremity stating that he isn't receiving his pain medications on time. Patient states that his breathing has improved and is currently on room air. Coughing has improved. Patient IV heparin drip was discontinued. Patient is currently on Coumadin although will hold Coumadin today as his current INR is 5.4. Will repeat a.m. labs. Patient continues on bronchodilators along with steroids at this time. To continue with local wound care to the left elbow and right lower extremity. Currently no reports of chest pain, shortness of breath, or palpitations. Patient is afebrile. No reports of nausea or vomiting and patient is tolerating diet. Objective - Vital Signs Vital signs: Vital Signs Temp 98.1 F 12/21/19 20:00 Pulse 70 12/22/19 14:40 Resp 18 12/22/19 12:00 BP 145/80 12/22/19 12:00 Pulse Ox 96 12/22/19 12:00 Intake & Output 12/21/19 12/22/19 12/22/19 18:59 06:59 18:59 Intake Total 686.184 832.329 240 Output Total 400 600 Balance 686.184 432.329 -360 Weight 74.6 kg Intake: Intake, IV Titration 206.184 172.329 Amount Heparin Sod,Pork in 0.45% 206.184 172.329 NaCl 25,000 unit In 0.45 % NaCl 1 250ml.bag @ 18 UNITS/KG/HR 14.288 mls/hr IV .[id number] [facility] Rx#: [id number] Oral 480 660 240 Output: Urine 400 600 Other: Voiding Method Toilet Toilet Toilet # Voids 0 0 0 # Bowel Movements 0 - Exam Gen: This is a 74-year-old male sitting up in bed, awake, alert and oriented 3, well-developed, well-nourished. pulse is 98, respirations are 18, blood pressures 145/80, oxygen saturation is 96% on room air. HEENT: Head is atraumatic, normocephalic. Pupils equal, round. Sclerae is anicteric. NECK: Supple. No JVD. No lymphadenopathy. No thyromegaly. LUNGS: Diminished breath sounds at the bases with some scattered rhonchi noted. No intercostal retractions. HEART: S1, S2 are muffled. ABDOMEN: Soft. Bowel sounds are present. No masses. No tenderness. EXTREMITIES: No pedal edema. No calf tenderness. Left vsqex-keb-hjht application noted. Multiple right lower extremity ulcerations noted with dr falk. Left elbow dressing is dry and intact. NEUROLOGICAL: Patient is awake, alert and oriented x3. Cranial nerves 2 through 12 are grossly intact. - Labs CBC & Chem 7: 12/22/19 05:31 12/22/19 05:31 Labs: Abnormal Lab Results - Last 24 Hours (Table) 12/21/19 12/21/19 12/21/19 Range/Units 16:46 18:04 20:45 WBC (3.8-10.6) k/uL Hgb (13.0-17.5) gm/dL MCH (25.0-35.0) pg MCHC (31.0-37.0) g/dL RDW (11.5-15.5) % Neutrophils # (1.3-7.7) k/uL Lymphocytes # (1.0-4.8) k/uL PT (9.0-12.0) sec INR (<1.2) APTT 91.6 H (22.0-30.0) sec Sodium (137-145) mmol/L Chloride (98-107) mmol/L Creatinine (0.66-1.25) mg/dL Glucose (74-99) mg/dL POC Glucose (mg/dL) 181 H 318 H (75-99) mg/dL 12/22/19 12/22/19 12/22/19 Range/Units 01:56 05:31 05:31 WBC 14.5 H (3.8-10.6) k/uL Hgb 11.7 L (13.0-17.5) gm/dL MCH 23.8 L (25.0-35.0) pg MCHC 29.8 L (31.0-37.0) g/dL RDW 18.9 H (11.5-15.5) % Neutrophils # 13.3 H (1.3-7.7) k/uL Lymphocytes # 0.7 L (1.0-4.8) k/uL PT 54.4 H (9.0-12.0) sec INR 5.4 H* (<1.2) APTT 49.1 H (22.0-30.0) sec Sodium (137-145) mmol/L Chloride (98-107) mmol/L Creatinine (0.66-1.25) mg/dL Glucose (74-99) mg/dL POC Glucose (mg/dL) (75-99) mg/dL 12/22/19 12/22/19 12/22/19 Range/Units 05:31 05:43 11:37 WBC (3.8-10.6) k/uL Hgb (13.0-17.5) gm/dL MCH (25.0-35.0) pg MCHC (31.0-37.0) g/dL RDW (11.5-15.5) % Neutrophils # (1.3-7.7) k/uL Lymphocytes # (1.0-4.8) k/uL PT (9.0-12.0) sec INR (<1.2) APTT (22.0-30.0) sec Sodium 136 L (137-145) mmol/L Chloride 108 H (98-107) mmol/L Creatinine 0.60 L (0.66-1.25) mg/dL Glucose 159 H (74-99) mg/dL POC Glucose (mg/dL) 172 H 174 H (75-99) mg/dL Microbiology - Last 24 Hours (Table) 12/20/19 12:25 Blood Culture - Preliminary Blood No Growth after 48 hours Assessment and Plan Assessment: Shortness of breath, possible chronic obstructive pulmonary disease, acute exa cerbation as well as pulmonary embolism, acute on chronic Possible left lower lobe pneumonia gram-negative History of noncompliance with Xarelto, because of financial reasons Elevated d-dimer with possibly acute pulmonary embolism Increased WBC Microcytosis Hyponatremia Increased ALT with elevated alkaline phosphatase History of coronary artery disease History of chronic obstructive pulmonary disease history of deep vein thrombosis Hyperlipidemia History of pneumonia History of pulmonary embolism history of rheumatoid arthritis history of vascular disorder History of pancreatitis history of viral pericarditis History of left uljyp-lyl-kvfa amputation History of MRSA History of coronary artery diseasestent History of degenerative joint disease History of anxiety, depression History of nicotine dependence Full code Recommendations and discussion: Recommend to continue current medications, management, and symptomatic treatment. Continue to monitor labs closely. Coumadin is to be held today and will repeat a.m. labs. Continue with bronchodilators, antibiotics, and steroids at this time. Patient is continue with local wound care to the left upper extremity and right lower extremity and left stump area. Due to complex medical issues, prognosis is guarded. Further recommendations to follow. Case management and social work following for possible discharge planning needs. Possible discharge in 24-48 hours.
--- NOTE | 2019-12-22 16:28 | PN ---
PROGRESS NOTE DATE OF SERVICE: 12/22/2019 REASON FOR FOLLOWUP: Left BKA stump and left elbow wound. INTERVAL HISTORY: The patient is currently afebrile, has been breathing more comfortably. Denies any chest pain, cough, abdominal pain, no pain to the left elbow and the left BKA wound. PHYSICAL EXAMINATION: Blood pressure 145/80 with a pulse of 98, temperature 98. He is 93% on room air. General description is an elderly male lying in bed in no distress. Respiratory system: Unlabored breathing. Decreased breath sounds at the base. No wheeze. Heart S1, S2. Regular rate and rhythm. Abdomen soft, no tenderness. LABS: Hemoglobin 11.7, white count 14.9. BUN of 6, creatinine 0.60. DIAGNOSTIC IMPRESSION/PLAN: 1. Patient admitted to the hospital with pulmonary embolism for which the patient is currently getting anticoagulation. 2. Patient has chronic wound to the left BKA stump and left elbow. Local care to continue. No evidence of any cellulitis. 3. Elevated white count, more likely steroid effect that will be monitored closely. 4. Continue supportive care. MMODL / IJN: [id number] /
[2019-12-22] MEDS: SODIUM CHLORIDE 0.9% 1,000 ML IV SCH (16:29)
[2019-12-22 16:55] LABS: Glucose,Whole Blood 136 mg/dL (75-99)
[2019-12-22 20:29] LABS: Glucose,Whole Blood 157 mg/dL (75-99)
[2019-12-22] MEDS: AZITHROMYCIN 500 MG TAB PO SCH (22:06)
[2019-12-23] MEDS: MORPHINE SULFATE 2 MG/ML SYRINGE IVP PRN ×3 (04:39→17:14)
[2019-12-23 07:13] LABS: Glucose,Whole Blood 116 mg/dL (75-99)
[2019-12-23] MEDS: BUDESONIDE 1 MG/2 ML NEBU INHALATION SCH ×2 (07:20→20:28)
[2019-12-23] MEDS: IPRATROPIUM-ALBUTEROL 3 ML NEB INHALATION SCH ×4 (07:20→20:29)
[2019-12-23] MEDS: FORMOTEROL FUMARATE 20 MCG/2 ML NEBU INHALATION SCH ×2 (07:20→20:28)
[2019-12-23] MEDS: INSULIN ASPART (NovoLOG) 100 UNIT/ML VIAL SQ SCH ×4 (08:45→22:02)
[2019-12-23] MEDS: oxyCODONE-APAP 10-325MG 1 EACH TAB PO SCH ×4 (08:47→22:18)
[2019-12-23] MEDS: ASPIRIN 81 MG PO SCH (08:48)
[2019-12-23] MEDS: PANTOPRAZOLE 40 MG TABLET PO SCH (08:48)
[2019-12-23] MEDS: predniSONE 20 MG TAB PO SCH (08:48)
[2019-12-23 10:20] LABS: Anisocytosis Slight; Basophils % (A) 0 %; Eosinophils % (A) 0 %; HCT 41.9 % (39.0-53.0); HGB 12.8 gm/dL (13.0-17.5); Hypochromasia Slight; Lymphocytes # (A) 1.7 k/uL (1.0-4.8); Lymphocytes % (A) 14 %; MCH 23.9 pg (25.0-35.0); MCHC 30.6 g/dL (31.0-37.0); Mean Platelet Volume 7.4; Microcytosis Slight; Monocytes # (A) 0.5 k/uL (0-1.0); Monocytes % (A) 4 %; Neutrophils # (A) 10.1 k/uL (1.3-7.7); Neutrophils % (A) 81 %; Platelet Count 413 k/uL (150-450); RBC 5.37 m/uL (4.30-5.90); RDW 18.7 % (11.5-15.5); WBC 12.4 k/uL (3.8-10.6)
[2019-12-23 10:36] LABS: African American GFR (CKD) >90 (>60 ml/min/1.73 sqM); Anion Gap 4 mmol/L; Blood Urea Nitrogen 17 mg/dL (9-20); Calcium 8.8 mg/dL (8.4-10.2); Carbon Dioxide 26 mmol/L (22-30); Chloride 107 mmol/L (98-107); Glucose 90 mg/dL (74-99); Non-African American GFR(CKD) >90 (>60 ml/min/1.73 sqM); Potassium 3.9 mmol/L (3.5-5.1); Sodium 137 mmol/L (137-145)
[2019-12-23 10:37] LABS: Partial Thromboplastin Time 27.6 sec (22.0-30.0); Prothrombin Time 72.1 sec (9.0-12.0)
[2019-12-23 12:32] LABS: Glucose,Whole Blood 195 mg/dL (75-99)
[2019-12-23] MEDS: SODIUM CHLORIDE 0.9% 1,000 ML IV SCH (12:52)
[2019-12-23] MEDS ORDERED: PHYTONADIONE ORAL 5 MG/5 ML ORAL.SYRG PO STA (14:42)
--- NOTE | 2019-12-23 15:01 | P.PN ---
Subjective Progress Note Date: 12/23/19 On 12/23/2019 patient seen in follow-up on the general medical floor, is calm and comfortable, no acute distress. Vital signs are stable, and pulse ox is 96%, afebrile, no worsening dyspnea, still having some overall generalized pain of the right lower extremity. Today's INR is up to 7.0, his Coumadin has been on hold. No bleeding, we'll give the patient a dose of vitamin K. Objective - Vital Signs Vital signs: Vital Signs Temp 98.5 F 12/23/19 14:15 Pulse 95 12/23/19 14:15 Resp 16 12/23/19 14:15 BP 124/72 12/23/19 14:15 Pulse Ox 96 12/23/19 14:15 Intake & Output 12/22/19 12/23/19 12/23/19 18:59 06:59 18:59 Intake Total 480 540 Output Total 600 301 400 Balance -120 239 -400 Weight 80.5 kg Intake: Oral 480 540 Output: Urine 600 301 400 Other: Voiding Method Toilet Toilet Urinal Urinal # Voids 0 400 # Bowel Movements 0 - Exam GENERAL EXAM: Alert, pleasant, 74-year-old male, comfortable in no sandhya arent distress. HEAD: Normocephalic/atraumatic. EYES: Normal reaction of pupils, equal size. Conjunctiva pink, sclera white. NOSE: Clear with pink turbinates. THROAT: No erythema or exudates. NECK: No masses, no JVD, no thyroid enlargement, no adenopathy. CHEST: No chest wall deformity. Symmetrical expansion. LUNGS: Equal air entry with no crackles, wheeze, rhonchi or dullness. CVS: Regular rate and rhythm, normal S1 and S2, no gallops, no murmurs, no rubs ABDOMEN: Soft, nontender. No hepatosplenomegaly, normal bowel sounds, no guarding or rigidity. EXTREMITIES: No clubbing, no edema, no cyanosis, 2+ pulses and upper and lower extremities. MUSCULOSKELETAL: Muscle strength and tone normal. Left adawm-jgo-ctjf amputation SPINE: No scoliosis or deformity SKIN: No rashes CENTRAL NERVOUS SYSTEM: Alert and oriented -3. No focal deficits, tone is normal in all 4 extremities. PSYCHIATRIC: Alert and oriented -3. Appropriate affect. Intact judgment and insight. - Labs CBC & Chem 7: 12/23/19 09:16 12/23/19 09:16 Labs: Abnormal Lab Results - Last 24 Hours (Table) 12/22/19 12/22/19 12/23/19 Range/Units 16:54 20:28 07:09 WBC (3.8-10.6) k/uL Hgb (13.0-17.5) gm/dL MCV (80.0-100.0) fL MCH (25.0-35.0) pg MCHC (31.0-37.0) g/dL RDW (11.5-15.5) % Neutrophils # (1.3-7.7) k/uL PT (9.0-12.0) sec INR (<1.2) POC Glucose (mg/dL) 136 H 157 H 116 H (75-99) mg/dL 12/23/19 12/23/19 12/23/19 Range/Units 09:16 09:16 12:23 WBC 12.4 H (3.8-10.6) k/uL Hgb 12.8 L (13.0-17.5) gm/dL MCV 78.0 L (80.0-100.0) fL MCH 23.9 L (25.0-35.0) pg MCHC 30.6 L (31.0-37.0) g/dL RDW 18.7 H (11.5-15.5) % Neutrophils # 10.1 H (1.3-7.7) k/uL PT 72.1 H (9.0-12.0) sec INR 7.0 H* (<1.2) POC Glucose (mg/dL) 195 H (75-99) mg/dL Microbiology - Last 24 Hours (Table) 12/20/19 12:25 Blood Culture - Preliminary Blood No Growth after 72 hours Assessment and Plan Plan: Assessment: 1 pulmonary embolism, likely a recurrent event as the patient was not taking anticoagulation due to cost. The cost of Xarelto was quite high in the order of $500 and the patient stopped anticoagulation around 4 weeks ago. Currently is coming in for evaluation. He has a subsegmental pulmonary embolism in the left lower lobe pulmonary artery and the patient was started on IV heparin. I'm going to transition him to anticoagulation with warfarin. This will be started today. Meanwhile, I think it's reasonable to repeat ultrasound of the right lower extremity to assess the progression and improvement or worsening and exten sive DVT that he had in his right lower extremity.was started on IV heparin. The patient was started on warfarin. On today's evaluation of the 2019 his INR is up to 5.4. No bleeding complications. His IV heparin was be discontinued.On 12/23/2019 patient's INR is up to 7, heparin drip has been discontinued, patient has not been given any Coumadin last night. We will order a dose of vitamin K, 2.5 mg 2 COPD with a component of an acute COPD exacerbation. Influenza screen is negative and the patient is on IV Solu-Medrol, improving and patient will be tapered in terms of his steroids. He typically uses prednisone 40 mg regarding his RA. 3 severe rheumatoid arthritis maintained on high-dose prednisone with a dose ranging between 30-40 mg. The patient is unable to function without systemic steroids. 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 5 coronary artery disease with previous cardiac catheterization and stenting 6 septic arthritis of the left knee ultimately the patient and up having an above-knee amputation of the left lower extremity 7 pressure ulcer in the right lower extremity as the patient dropped a slow cooker and currently is being seen at the wound center 8 feeling wound at the level of the left lower extremity AKA 9 left elbow ulcer/wound 10 history of pancreatitis 11 history of pericarditis Plan: We'll order vitamin K 2.5 mg 1, recheck PT/INR, no worsening dyspnea, vital signs are stable, no complaints of chest pain, no hemoptysis. Patient states he would like to try another alternative for anticoagulation perhaps with Eliquis or Xarelto. He stated that Xarelto will cost him $400 out of pocket every month, but he does not want to deal with Coumadin dosing anymore. We'll send a prescription to pharmacy for Eliquis and check his coverage for Eliquis at a later date, repeat PT/INR tomorrow, we'll continue to follow I performed a history & physical examination of the patient and discussed their management with my nurse practitioner, Yoselin Wiggins. I reviewed the nurse practitioner's note and agree with the documented findings and plan of care. Lung sounds are positive for diminished breath sounds. The findings and the impression was discussed with the patient. I attest to the documentation by the nurse practitioner. Time with Patient: Less than 30
--- NOTE | 2019-12-23 15:04 | PN ---
PROGRESS NOTE DATE OF SERVICE: 12/23/2019. REASON FOR FOLLOWUP: Left BKA stump and left elbow wound. INTERVAL HISTORY: The patient is currently afebrile. The patient has been breathing more comfortably. The patient denies having any chest pain or cough. No nausea or vomiting. No abdominal pain. No pain in the left BKA stump or in the left elbow area. PHYSICAL EXAMINATION: Blood pressure 155/80 with a pulse of 80, temperature 97.8. He is 97% on room air. General description is an elderly male lying in bed in no distress. RESPIRATORY SYSTEM: Unlabored breathing but decreased breath sounds at the bases. No wheeze. HEART: S1, S2. Regular rate and rhythm. ABDOMEN: Soft. No tenderness. LABS: Hemoglobin is 12.8, white count 12.4. Creatinine 0.66. DIAGNOSTIC IMPRESSION AND PLAN: Patient admitted with left below-knee amputation stump and left elbow wound. Currently no evidence of any cellulitis. Local wound care to continue with Aquacel Silver dressing antibiotic therapy. Questions and concerns were answered. MMODL / IJN: [id number] /
[2019-12-23 17:06] LABS: Glucose,Whole Blood 180 mg/dL (75-99)
[2019-12-23] MEDS ORDERED: WARFARIN 0.5 MG TAB PO ONE ×2 (18:00)
[2019-12-23 21:45] LABS: Glucose,Whole Blood 118 mg/dL (75-99)
[2019-12-23 21:46] VITALS: RESP 16
[2019-12-23] MEDS: AZITHROMYCIN 500 MG TAB PO SCH (22:08)
[2019-12-24] MEDS: MORPHINE SULFATE 2 MG/ML SYRINGE IVP PRN ×2 (00:18→07:18)
[2019-12-24 05:02] VITALS: BP 160/90; TEMP 97.9
[2019-12-24] MEDS: IPRATROPIUM-ALBUTEROL 3 ML NEB INHALATION SCH ×2 (07:05→11:10)
[2019-12-24] MEDS: FORMOTEROL FUMARATE 20 MCG/2 ML NEBU INHALATION SCH (07:05)
[2019-12-24] MEDS: BUDESONIDE 1 MG/2 ML NEBU INHALATION SCH (07:05)
[2019-12-24 07:13] VITALS: PULSE 92
[2019-12-24] MEDS: oxyCODONE-APAP 10-325MG 1 EACH TAB PO SCH ×2 (07:17→13:06)
[2019-12-24] MEDS: ASPIRIN 81 MG PO SCH (07:17)
[2019-12-24] MEDS: predniSONE 20 MG TAB PO SCH (07:17)
[2019-12-24] MEDS: PANTOPRAZOLE 40 MG TABLET PO SCH (07:17)
[2019-12-24 07:21] LABS: Glucose,Whole Blood 132 mg/dL (75-99)
[2019-12-24] MEDS: INSULIN ASPART (NovoLOG) 100 UNIT/ML VIAL SQ SCH ×2 (07:27→13:38)
--- NOTE | 2019-12-24 08:36 | P.PN ---
Subjective Progress Note Date: 12/23/19 Principal diagnosis: This is a 74-year-old male who was recently admitted with some shortness of breath and is being closely monitored. Pulmonary is following. Yesterday patient underwent venous Doppler showing evidence of partial occlusive thrombus in the left venous system. Patient does have a history of blood clots of the lower extremities and in the lungs and was taking Xarelto but has discontinued due to the high co-pay. Patient is currently on IV heparin drip and will continue at this time. PT was elevated today and protocol was followed. Will continue to monitor labs closely. Patient is currently being started on Coumadin although continues to be subtherapeutic. Current INR is 1.3. Will repeat a.m. labs. Currently no reports of chest pain, worsening shortness of breath, or palpitations. Patient is afebrile. No reports of nausea or vomiting and patient is tolerating diet. Wound care is also following as the patient has ulcerations to the right lower extremity and a wound of the left elbow status post fall out of his wheelchair previously. 12/22/2019 Patient is seen and evaluated in follow-up today states he is having overall generalized pain of the right lower extremity and left upper extremity stating that he isn't receiving his pain medications on time. Patient states that his breathing has improved and is currently on room air. Coughing has improved. Patient IV heparin drip was discontinued. Patient is currently on Coumadin although will hold Coumadin today as his current INR is 5.4. Will repeat a.m. labs. Patient continues on bronchodilators along with steroids at this time. To continue with local wound care to the left elbow and right lower extremity. Currently no reports of chest pain, shortness of breath, or palpitations. Patient is afebrile. No reports of nausea or vomiting and patient is tolerating diet. 12/23/2019 Patient is seen in follow up today stating that his breathing continues to improve although continues to have generalized back pain that is chronic in nature. Patient's Coumadin today is 7.0 and will continue to hold Coumadin. A dose of vitamin K is being given. Discussed with the patient at length about PT/INR monitoring in the outpatient setting and patient states he will call his insurance and inquire about if there is a deductible that he has to meet and then can afford the medications of Xarelto were Eliquis because he does not want to continue testing frequently. Patient does follow with home care and will continue this in the outpatient setting. Patient continues on bronchodilators and will continue at this time. Patient is also on IV antibiotics in the form of Rocephin and oral Zithromax and will continue. Patient will continue with local wound care for the upper and lower extremities. Patient that he does follow-up with wound care clinic every Friday and will continue to do so in the outpatient setting. Will repeat a.m. labs. Will continue to monitor closely. Objective - Vital Signs Vital signs: Vital Signs Temp 98.5 F 12/23/19 14:15 Pulse 88 12/23/19 16:10 Resp 18 12/23/19 16:10 BP 124/72 12/23/19 14:15 Pulse Ox 96 12/23/19 14:15 Intake & Output 12/22/19 12/23/19 12/23/19 18:59 06:59 18:59 Intake Total 480 540 Output Total 600 301 400 Balance -120 239 -400 Weight 80.5 kg Intake: Oral 480 540 Output: Urine 600 301 400 Other: Voiding Method Toilet Toilet Urinal Urinal # Voids 0 400 # Bowel Movements 0 - Exam Gen: This is a 74-year-old male sitting up in bed, awake, alert and oriented 3, well-developed, well-nourished. Temp is 97.8F pulse is 76, respirations are 18, blood pressures 155/88, oxygen saturation is 97% on room air. HEENT: Head is atraumatic, normocephalic. Pupils equal, round. Sclerae is anicteric. NECK: Supple. No JVD. No lymphadenopathy. No thyromegaly. LUNGS: Diminished breath sounds at the bases with some scattered rhonchi noted. No intercostal retractions. HEART: S1, S2 are muffled. ABDOMEN: Soft. Bowel sounds are present. No masses. No tenderness. EXTREMITIES: No pedal edema. No calf tenderness. Left [id number] amputa tion noted. Multiple right lower extremity ulcerations noted with dressings. Left elbow dressing is dry and intact. NEUROLOGICAL: Patient is awake, alert and oriented x3. Cranial nerves 2 through 12 are grossly intact. - Labs CBC & Chem 7: 12/23/19 09:16 12/23/19 09:16 Labs: Abnormal Lab Results - Last 24 Hours (Table) 12/22/19 12/23/19 12/23/19 Range/Units 20:28 07:09 09:16 WBC 12.4 H (3.8-10.6) k/uL Hgb 12.8 L (13.0-17.5) gm/dL MCV 78.0 L (80.0-100.0) fL MCH 23.9 L (25.0-35.0) pg MCHC 30.6 L (31.0-37.0) g/dL RDW 18.7 H (11.5-15.5) % Neutrophils # 10.1 H (1.3-7.7) k/uL PT (9.0-12.0) sec INR (<1.2) POC Glucose (mg/dL) 157 H 116 H (75-99) mg/dL 12/23/19 12/23/19 12/23/19 Range/Units 09:16 12:23 17:01 WBC (3.8-10.6) k/uL Hgb (13.0-17.5) gm/dL MCV (80.0-100.0) fL MCH (25.0-35.0) pg MCHC (31.0-37.0) g/dL RDW (11.5-15.5) % Neutrophils # (1.3-7.7) k/uL PT 72.1 H (9.0-12.0) sec INR 7.0 H* (<1.2) POC Glucose (mg/dL) 195 H 180 H (75-99) mg/dL Microbiology - Last 24 Hours (Table) 12/20/19 12:25 Blood Culture - Preliminary Blood No Growth after 72 hours Assessment and Plan Assessment: Shortness of breath, possible chronic obstructive pulmonary disease, acute exacerbation as well as pulmonary embolism, acute on chronic Possible left lower lobe pneumonia gram-negative History of noncompliance with Xarelto, because of financial reasons Coumadin monitoring Elevated d-dimer with possibly acute pulmonary embolism Increased WBC Microcytosis Hyponatremia Increased ALT with elevated alkaline phosphatase History of coronary artery disease History of chronic obstructive pulmonary disease history of deep vein thrombosis Hyperlipidemia History of pneumonia History of pulmonary embolism history of rheumatoid arthritis history of vascular disorder History of pancreatitis history of viral pericarditis History of left cbefm-wrt-weml amputation History of MRSA History of coronary artery diseasestent History of degenerative joint disease History of anxiety, depression History of nicotine dependence Full code Recommendations and discussion: Recommend to continue current medications, management, and symptomatic treatment. Continue to monitor labs closely. Coumadin is to be held again today as INR is 7.0. A dose of vitamin K 2.5 mg is being given. will repeat a.m. labs. Continue with bronchodilators, antibiotics, and steroids at this time. Patient is continue with local wound care to the left upper extremity and right lower extremity and left stump area. Due to complex medical issues, prognosis is guarded. Further recommendations to follow. Case management and social work following for possible discharge planning needs. Possible discharge in 24-48 hours.
[2019-12-24 10:33] LABS: INR 1.8 (<1.2)
[2019-12-24 11:16] LABS: Glucose,Whole Blood 161 mg/dL (75-99)
--- NOTE | 2019-12-24 13:04 | P.PN ---
Subjective Progress Note Date: 12/24/19 The patient was seen and evaluated today 12/24/2019. He is awake and alert in no acute distress. On room air. INR 1.8. Anticoagulated with Eliquis. Blood cultures negative. continued on bronchodilators, prednisone, antibiotics in the form and azithromycin and ceftriaxone. Objective - Vital Signs Vital signs: Vital Signs Temp 97.9 F 12/24/19 04:58 Pulse 92 12/24/19 11:22 Resp 16 12/24/19 04:58 BP 160/90 12/24/19 04:58 Pulse Ox 96 12/24/19 04:58 Intake & Output 12/23/19 12/24/19 12/24/19 18:59 06:59 18:59 Output Total 400 950 Balance -400 -950 Output: Urine 400 950 Other: Voiding Method Urinal Urinal Urinal - Exam GENERAL EXAM: Alert, pleasant, 74-year-old male, comfortable in no apparent distress. HEAD: Normocephalic/atraumatic. EYES: Normal reaction of pupils, equal size. Conjunctiva pink, sclera white. NOSE: Clear with pink turbinates. THROAT: No erythema or exudates. NECK: No masses, no JVD, no thyroid enlargement, no adenopathy. CHEST: No chest wall deformity. Symmetrical expansion. LUNGS: Equal air entry with no crackles, wheeze, rhonchi or dullness. CVS: Regular rate and rhythm, normal S1 and S2, no gallops, no murmurs, no rubs ABDOMEN: Soft, nontender. No hepatosplenomegaly, normal bowel sounds, no guarding or rigidity. EXTREMITIES: No clubbing, no edema, no cyanosis, 2+ pulses and upper and lower extremities. MUSCULOSKELETAL: Muscle strength and tone normal. Left cmmey-tdy-pspm amputation SPINE: No scoliosis or deformity SKIN: No rashes CENTRAL NERVOUS SYSTEM: Alert and oriented -3. No focal deficits, tone is normal in all 4 extremities. PSYCHIATRIC: Alert and oriented -3. Appropriate affect. Intact judgment and insight. - Labs CBC & Chem 7: 12/23/19 09:16 12/23/19 09:16 Labs: Abnormal Lab Results - Last 24 Hours (Table) 12/23/19 12/23/19 12/24/19 Range/Units 17:01 21:44 07:18 PT (9.0-12.0) sec INR (<1.2) POC Glucose (mg/dL) 180 H 118 H 132 H (75-99) mg/dL 12/24/19 12/24/19 Range/Units 09:34 11:14 PT 18.0 H (9.0-12.0) sec INR 1.8 H (<1.2) POC Glucose (mg/dL) 161 H (75-99) mg/dL Microbiology - Last 24 Hours (Table) 12/20/19 12:25 Blood Culture - Preliminary Blood No Growth after 72 hours Assessment and Plan Assessment: 1 pulmonary embolism, likely a recurrent event as the patient was not taking anticoagulation due to cost. He is now on Eliquis. 2 COPD with a component of an acute COPD exacerbation. Influenza screen is negative and the patient is on prednisone, improving and patient will be tapered in terms of his steroids. He typically uses prednisone 40 mg regarding his RA. 3 severe rheumatoid arthritis maintained on high-dose prednisone with a dose ranging between 30-40 mg. The patient is unable to function without systemic steroids. 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 Manley. He is cleared for discharge from the pulmonary standpoint. To remain on Eliquis, lifetime Follow-up in the office in 1-2 weeks. I, the cosigning physician, performed a [facility] sounds are clear. Maintaining good O2 saturations in the 90s on room air. I discussed the assessment and plan of care with my nurse practitioner, Yvette Palacios. I attest to the above note as dictated by her.
[2019-12-24] MEDS ORDERED: WARFARIN 5 MG TAB PO ONE (18:00)
--- NOTE | 2019-12-27 08:57 | P.DS ---
Providers Date of admission: 12/20/19 14:45 Expected date of discharge: 12/24/19 Attending physician: Jone Saunders MD Consults: 12/20/19 14:45 Consult Physician Routine Consulting Provider: Lisa Manley Consult Reason/Comments: Pulmonary embolism, dyspnea Do you want consulting provider notified?: Yes 12/20/19 20:19 Consult Physician Routine Consulting Provider: Cherelle Pendleton Consult Reason/Comments: leg ulcers Do you want consulting provider notified?: Yes Primary care physician: Ruthy Montemayor [facility] Course: Final diagnosis Shortness of breath, possible chronic obstructive pulmonary disease, acute exacerbation as well as pulmonary embolism, acute on chronic Possible left lower lobe pneumonia gram-negative History of noncompliance with Xarelto, because of financial reasons Coumadin monitoring Elevated d-dimer with possibly acute pulmonary embolism Increased WBC Microcytosis Hyponatremia Increased ALT with elevated alkaline phosphatase History of coronary artery disease History of chronic obstructive pulmonary disease history of deep vein thrombosis Hyperlipidemia History of pneumonia History of pulmonary embolism history of rheumatoid arthritis history of vascular disorder History of pancreatitis history of viral pericarditis History of left bejsj-qrs-uqbp amputation History of MRSA History of coronary artery diseasestent History of degenerative joint disease History of anxiety, depression History of nicotine dependence Full code Discharge disposition Patient is being discharged in a stable condition with guarded prognosis to home. Patient will follow-up with Dr. Montemayor upon discharge. Patient will continue with [facility] in the outpatient setting. Patient will also be following up with Dr. Manley in the outpatient setting in 1 week. Patient will continue on a prednisone taper and was initiated on Eliquis. Total time taken is greater than 35 minutes. History of present illness This is an 74-year-old male who was recently admitted with shortness of breath along with evidence of partial occlusive thrombus in the left venous system and was being closely monitored. Multiple medical consultations following. Patient was initiated on a heparin drip as he was not taking his xarelto due to the $500 per month co-pay. Patient was initiated on Coumadin and had INR levels elevated and was given a dose of vitamin K. Case management and social work checked for coverage of Eliquis and will cost $156 a month and patient is willing to pay for this. Patient will be initiated on this and will continue in the outpatient setting. Prescription was also provided for nebulizer and patient will continue on DuoNeb treatments along with a prednisone taper in the outpatient setting. Patient is known to have a history of chronic obstructive pulmonary disease. Cardiology and pulmonary following. Patient will continue with [facility]. Patient was also seen by infectious disease for multiple wounds status post a fall to the left elbow and right lower extremity along with left amputation stump and will continue with local wound care and follow-up with wound care center every Friday. Currently no reports of chest pain, worsening shortness of breath, or palpitations. Patient is afebrile. No reports of nausea or vomiting and patient is tolerating diet. Guarded prognosis. On exam vital signs are stable. Temp is 97.9 F, pulse is 89, respirations are 16, blood pressure is 160/90, oxygen saturation is 96% on room air. Cardio S1, S2 are muffled. Respiratory shows diminished breath sounds at the bases with a few scattered rhonchi noted. Abdomen is soft and nontender. Nervous system shows no focal deficits. Please refer to medication reconciliation sheet for a list of medications. Patient Condition at Discharge: Good Plan - Discharge Summary Discharge Rx Participant: No New Discharge Prescriptions: New Apixaban [Eliquis Starter Pack (for VTE)] 0 mg PO DIRECTED 30 Days #1 pack Fluticasone/Salmeterol [Airduo Respiclick 232-14 Mcg] 1 puff INHALATION BID 30 Days #1 device Ipratropium-Albuterol Nebulize [Duoneb 0.5 mg-3 mg/3 ml Soln] 3 ml INHALATION RT-QID ml Ipratropium-Albuterol Nebulize [Duoneb 0.5 mg-3 mg/3 ml Soln] 3 ml INHALATION RT-Q4H PRN ml PRN Reason: Shortness Of Breath Or Wheezing predniSONE 10 mg PO DIRECTED #30 tab Ipratropium-Albuterol Nebulize [Duoneb 0.5 mg-3 mg/3 ml Soln] 3 ml INHALATION QID #120 neb Continue oxyCODONE-APAP 10-325MG [Percocet 10-325 mg] 1 tab PO QID Aspirin 81 mg PO DAILY chew Albuterol Sulfate [Ventolin HFA] 2 puff INHALATION RT-QID PRN 30 Days #1 inhaler PRN Reason: Shortness Of Breath Discontinued predniSONE 10 mg PO TID Discharge Medication List oxyCODONE-APAP 10-325MG [Percocet 10-325 mg] 1 tab PO QID 01/19/19 [History] Aspirin 81 mg PO DAILY chew 09/06/19 [Rx] Apixaban [Eliquis Starter Pack (for VTE)] 0 mg PO DIRECTED 30 Days #1 pack 12/23/19 [Rx] Albuterol Sulfate [Ventolin HFA] 2 puff INHALATION RT-QID PRN 30 Days #1 inhaler 12/24/19 [Rx] Fluticasone/Salmeterol [Airduo Respiclick 232-14 Mcg] 1 puff INHALATION BID 30 Days #1 device 12/24/19 [Rx] Ipratropium-Albuterol Nebulize [Duoneb 0.5 mg-3 mg/3 ml Soln] 3 ml INHALATION QID #120 neb 12/24/19 [Rx] Ipratropium-Albuterol Nebulize [Duoneb 0.5 mg-3 mg/3 ml Soln] 3 ml INHALATION RT-Q4H PRN ml 12/24/19 [Rx] Ipratropium-Albuterol Nebulize [Duoneb 0.5 mg-3 mg/3 ml Soln] 3 ml INHALATION RT-QID ml 12/24/19 [Rx] predniSONE 10 mg PO DIRECTED #30 tab 12/24/19 [Rx] Follow up Appointment(s)/Referral(s): [facility],Equipment [NON-STAFF] - (Supplied Nebulizer) [facility], [NON-STAFF] - Ruthy Montemayor DO [Primary Care Provider] - 12/27/19 2:00 pm ([place] office) Lisa Manley MD [STAFF PHYSICIAN] - 1 Week Patient Instructions/Handouts: Safe Use of Anticoagulants (DC) Activity/Diet/Wound Care/Special Instructions: check Eliquis website activity as tolerated regular diet as tolerated continue with wound center as ordered Follow-up with primary care provider upon discharge Discharge Disposition: HOME WITH HOME HEALTH SERVICES
== END 2019-12-24 14:38 | disposition home health service (06) | DRG 175 ==
LOC: EC 12:01 → 3SCARD 14:45 → 6NMEDSUR 12-23 01:06
PROVIDERS: ADMIT Internal Medicine; ATTEND Internal Medicine
DX: I26.93 Single subsegmental thrombotic pulmonary embolism without acute cor pulmonale (principal); J15.6 Pneumonia due to other Gram-negative bacteria; E87.1 Hypo-osmolality and hyponatremia; I82.501 Chronic embolism and thrombosis of unspecified deep veins of right lower extremity; J44.1 Chronic obstructive pulmonary disease with (acute) exacerbation; L97.919 Non-pressure chronic ulcer of unspecified part of right lower leg with unspecified severity; E24.2 Drug-induced Cushing's syndrome; J44.0 Chronic obstructive pulmonary disease with (acute) lower respiratory infection; I27.82 Chronic pulmonary embolism; Z79.01 Long term (current) use of anticoagulants; E78.5 Hyperlipidemia, unspecified; G89.29 Other chronic pain; Z86.14 Personal history of Methicillin resistant Staphylococcus aureus infection; I25.10 Atherosclerotic heart disease of native coronary artery without angina pectoris; M06.9 Rheumatoid arthritis, unspecified; Z87.891 Personal history of nicotine dependence; T45.516A Underdosing of anticoagulants, initial encounter; Z91.120 Patient's intentional underdosing of medication regimen due to financial hardship; Z47.81 Encounter for orthopedic aftercare following surgical amputation; Z89.612 Acquired absence of left leg above knee; Z79.52 Long term (current) use of systemic steroids; Z79.82 Long term (current) use of aspirin; T38.0X5A Adverse effect of glucocorticoids and synthetic analogues, initial encounter; Z87.01 Personal history of pneumonia (recurrent); Z79.899 Other long term (current) drug therapy; Z95.5 Presence of coronary angioplasty implant and graft; Z96.611 Presence of right artificial shoulder joint; Z96.652 Presence of left artificial knee joint; Z99.81 Dependence on supplemental oxygen; F32.9 Major depressive disorder, single episode, unspecified; F41.9 Anxiety disorder, unspecified; Z79.891 Long term (current) use of opiate analgesic; S51.002A Unspecified open wound of left elbow, initial encounter; Z82.61 Family history of arthritis; Z82.0 Family history of epilepsy and other diseases of the nervous system
CPT/HCPCS: 36415; 71046; 71275; 80048; 80053; 82272; 83605; 85025; 85379; 85610; 85730; 87040; 87502; 93005; 94640; 94760; 96365; 96366; 96375; 96376; 99291

== ENCOUNTER 2020-01-16 19:24 | Emergency (ER) | payer MEDICARE ==
[2020-01-16 19:35] VITALS: TEMP 98.1
[2020-01-16] MEDS ORDERED: MORPHINE SULFATE 4 MG/ML SYRINGE IV STA (20:03)
[2020-01-16] MEDS ORDERED: ONDANSETRON 4 MG/2 ML VIAL IVP STA (20:03)
[2020-01-16] MEDS ORDERED: SODIUM CHLORIDE 0.9% 1,000 ML IV STA (20:03)
[2020-01-16] MEDS ORDERED: PANTOPRAZOLE 40 MG/10 ML VIAL IVP STA (20:04)
--- NOTE | 2020-01-16 20:17 | ED ---
General Adult HPI - General Chief complaint: Nausea/Vomiting/Diarrhea Stated complaint: Vomiting Time Seen by Provider: 01/16/20 19:32 Source: patient, RN notes reviewed, old records reviewed Mode of arrival: wheelchair Limitations: no limitations - History of Present Illness Initial comments: This Patient is a 74-year-old male well-known to the emergency department with a recent history of COPD exacerbation PE. He presents today with complaints of e pigastric abdominal pain starting today. He reports his been a chronic pain needs had intermittently for the past 3 years. He states that they have not told them why he has this pain. Patient states that he's had no recent fevers or chills. He denies any cough or shortness of breath today. He reports he's been maintaining his blood thinning medication. - Related Data Home Medications Medication Instructions Recorded Confirmed oxyCODONE-APAP 10-325MG [Percocet 1 tab PO QID 01/19/19 01/16/20 10-325 mg] Apixaban [Eliquis Starter Pack See Taper PO DIRECTED 01/16/20 01/16/20 (for VTE)] Ipratropium-Albuterol Nebulize 3 ml INHALATION RT-QID PRN 01/16/20 01/16/20 [Duoneb 0.5 mg-3 mg/3 ml Soln] predniSONE 10 mg PO TID 01/16/20 01/16/20 Previous Rx's Medication Instructions Recorded Aspirin 81 mg PO DAILY chew 09/06/19 Ondansetron HCl [Zofran] 4 mg PO Q8H PRN #12 tab 01/16/20 Pantoprazole [Protonix] 20 mg PO DAILY #14 tablet. 01/16/20 Allergies Allergy/AdvReac Type Severity Reaction Status Date / Time No Known Allergies Allergy Verified 01/16/20 20:43 Review of Systems ROS Statement: Those systems with pertinent positive or pertinent negative responses have been documented in the HPI. ROS Other: All systems not noted in ROS Statement are negative. Past Medical History Past Medical History: Coronary Artery Disease (CAD), COPD, Deep Vein Thrombosis (DVT), Hyperlipidemia, Pneumonia, Pulmonary Embolus (PE), Rheumatoid Arthritis (RA), Vascular Disorder Additional Past Medical History / Comment(s): History of pancreatitis, 2012 past medical record documents viral pericarditis but pt denies, gastritis, Fluid build up rt lung - previous chest tube - pt unsure what it is from, BOTTOM TEETH REMOVED 09-01-18, wounds in his right lower extremity, left [id number] stump and left elbow History of Any Multi-Drug Resistant Organisms: MRSA Date of last positivie culture/infection: 11/23/18 MDRO Source:: KNEE Past Surgical History: Heart Catheterization With Stent, Joint Replacement, Orthopedic Surgery Additional Past Surgical History / Comment(s): Total L knee arthroplasty with a spacer in place, R total shoulder replaced, L ankle ORIF d/t fracture, EGD, left rotator cuff repair. 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 Date of Last Stent Placement:: 12/10/16 Past Psychological History: Anxiety, Depression Smoking Status: Current some day smoker - Past Family History Sister(s) Family Medical History: Cancer Additional Family Medical History / Comment(s): pt's father had ra, mother had 16 children was healthy most of her life age 93 from dementia. Mother Family Medical History: Dementia Additional Family Medical History / Comment(s): Mother from dementia at the age of 93 yrs. Father Family Medical History: Rheumatoid Arthritis (RA) General Exam - General Exam Comments Initial Comments: 74 year male, no distress. Limitations: no limitations General appearance: alert, in no apparent distress Head exam: Present: atraumatic, normocephalic, normal inspection Eye exam: Present: normal appearance, PERRL, EOMI. Absent: scleral icterus, conjunctival injection, periorbital swelling ENT exam: Present: normal exam, mucous membranes moist Neck exam: Present: normal inspection. Absent: tenderness, meningismus, lymphadenopathy Respiratory exam: Present: normal lung sounds bilaterally. Absent: respiratory distress, wheezes, rales, rhonchi, stridor Cardiovascular Exam: Present: regular rate, normal rhythm, normal heart sounds. Absent: systolic murmur, diastolic murmur, rubs, gallop, clicks GI/Abdominal exam: Present: soft, normal bowel sounds. Absent: distended, tenderness, guarding, rebound, rigid Extremities exam: Present: normal inspection, full ROM, normal capillary refill. Absent: tenderness, pedal edema, joint swelling, calf tenderness Back exam: Present: normal inspection Neurological exam: Present: alert, oriented X3, CN II-XII intact Psychiatric exam: Present: normal affect, normal mood Skin exam: Present: warm, dry, intact, normal color. Absent: rash Course Vital Signs 01/16/20 01/16/20 19:32 22:58 Temperature 98.1 F Pulse Rate 113 H 110 H Respiratory 18 22 Rate Blood Pressure 146/90 134/91 O2 Sat by Pulse 95 97 Oximetry Medical Decision Making - Medical Decision Making 74 year old male, no distress. He presented today for epigastric abdominal pain, nausea and vomiting. He reports to having the symptoms off and on for a few years. He also is of chronic back pain unchanged for months after disc compression fracture. At this time patient's labs reviewed and unremarkable. Alaina nix has no shortness of breath or any other significant complaints. This time patient's feeling better after IV pain medication and fluids. I discussed seems likely related to gastritis. Patient will be discharged at this time with prescription for Zofran and Protonix. I discussed following up with PCP. Patient is agreeable to treatment plan. - Lab Data Result diagrams: 01/16/20 20:10 01/16/20 20:10 Lab Results 01/16/20 01/16/20 01/16/20 Range/Units 20:10 20:10 21:10 WBC 13.0 H (3.8-10.6) k/uL RBC 5.75 (4.30-5.90) m/uL Hgb 14.4 (13.0-17.5) gm/dL Hct 45.4 (39.0-53.0) % MCV 78.9 L (80.0-100.0) fL MCH 25.0 (25.0-35.0) pg MCHC 31.7 (31.0-37.0) g/dL RDW 17.8 H (11.5-15.5) % Plt Count 549 H (150-450) k/uL Neutrophils % 70 % Lymphocytes % 23 % Monocytes % 5 % Eosinophils % 1 % Basophils % 0 % Neutrophils # 9.1 H (1.3-7.7) k/uL Lymphocytes # 2.9 (1.0-4.8) k/uL Monocytes # 0.7 (0-1.0) k/uL Eosinophils # 0.1 (0-0.7) k/uL Basophils # 0.0 (0-0.2) k/uL Hypochromasia Slight Anisocytosis Slight Microcytosis Slight Sodium 135 L (137-145) mmol/L Potassium 4.5 (3.5-5.1) mmol/L Chloride 100 (98-107) mmol/L Carbon Dioxide 28 (22-30) mmol/L Anion Gap 7 mmol/L BUN 14 (9-20) mg/dL Creatinine 0.59 L (0.66-1.25) mg/dL Est GFR (CKD-EPI)AfAm >90 (>60 ml/min/1.73 sqM) Est GFR (CKD-EPI)NonAf >90 (>60 ml/min/1.73 sqM) Glucose 94 (74-99) mg/dL Calcium 9.3 (8.4-10.2) mg/dL Total Bilirubin 0.5 (0.2-1.3) mg/dL AST 27 (17-59) U/L ALT 31 (4-49) U/L Alkaline Phosphatase 181 H (38-126) U/L Total Protein 6.8 (6.3-8.2) g/dL Albumin 3.6 (3.5-5.0) g/dL Amylase 93 (30-110) U/L Lipase 108 (23-300) U/L Urine Color Light Yellow Urine Appearance Clear (Clear) Urine pH 8.0 (5.0-8.0) Ur Specific [place] 1.013 (1.001-1.035) Urine Protein Negative (Negative) Urine Glucose (UA) Negative (Negative) Urine Ketones Negative (Negative) Urine Blood Negative (Negative) Urine Nitrite Negative (Negative) Urine Bilirubin Negative (Negative) Urine Urobilinogen <2.0 (<2.0) mg/dL Ur Leukocyte Esterase Negative (Negative) - Radiology Data Radiology results: report reviewed KUB is negative for acute process. Disposition Clinical Impression: Nausea & vomiting, Epigastric abdominal pain Disposition: HOME SELF-CARE Condition: Good Additional Instructions: Please use medication as discussed. Please follow up with family doctor if symptoms have not improved over the next two days. [place] [facility] [place] your symptoms increase or worsen or for any other concerns. Prescriptions: Pantoprazole [Protonix] 20 mg PO DAILY #14 tablet. Ondansetron HCl [Zofran] 4 mg PO Q8H PRN #12 tab PRN Reason: Nausea And Vomiting Is patient prescribed a controlled substance at d/c from ED?: No Referrals: Ruthy Montemayor DO [Primary Care Provider] - 1-2 days Time of Disposition: 22:00
[2020-01-16 20:50] LABS: Anisocytosis Slight; Basophils % (A) 0 %; Eosinophils # (A) 0.1 k/uL (0-0.7); Eosinophils % (A) 1 %; HCT 45.4 % (39.0-53.0); HGB 14.4 gm/dL (13.0-17.5); Hypochromasia Slight; Lymphocytes # (A) 2.9 k/uL (1.0-4.8); Lymphocytes % (A) 23 %; MCHC 31.7 g/dL (31.0-37.0); MCV 78.9 fL (80.0-100.0); Mean Platelet Volume 7.2; Microcytosis Slight; Monocytes # (A) 0.7 k/uL (0-1.0); Monocytes % (A) 5 %; Neutrophils # (A) 9.1 k/uL (1.3-7.7); Neutrophils % (A) 70 %; Platelet Count 549 k/uL (150-450); RBC 5.75 m/uL (4.30-5.90); RDW 17.8 % (11.5-15.5)
[2020-01-16 21:04] LABS: ALT 31 U/L (4-49); AST 27 U/L (17-59); African American GFR (CKD) >90 (>60 ml/min/1.73 sqM); Albumin 3.6 g/dL (3.5-5.0); Alkaline Phosphatase 181 U/L (38-126); Amylase 93 U/L (30-110); Anion Gap 7 mmol/L; Blood Urea Nitrogen 14 mg/dL (9-20); Calcium 9.3 mg/dL (8.4-10.2); Carbon Dioxide 28 mmol/L (22-30); Chloride 100 mmol/L (98-107); Glucose 94 mg/dL (74-99); Non-African American GFR(CKD) >90 (>60 ml/min/1.73 sqM); Potassium 4.5 mmol/L (3.5-5.1); Sodium 135 mmol/L (137-145); Total Bilirubin 0.5 mg/dL (0.2-1.3); Total Protein 6.8 g/dL (6.3-8.2)
--- NOTE | 2020-01-16 21:33 | XR ---
EXAMINATION TYPE: XR KUB DATE OF EXAM: 01/16/2020 COMPARISON: 03/02/2015 HISTORY: Abdominal pain TECHNIQUE: FINDINGS: 2 views supine were obtained. There is no sign of intestinal obstruction or pneumoperitoneu m. Fecal pattern is fairly normal. There is no evidence of a mass. There are no pathologic calcificat ions over the kidneys. IMPRESSION: Nonacute abdomen. There is some narrowing of the left hip joint space that has progressed compared to old exam.
[2020-01-16 21:55] LABS: Appearance,Urine Clear (Clear); Bilirubin,Urine Negative (Negative); Blood,Urine Negative (Negative); Color,Urine Light Yellow; Glucose,Urine (UA) Negative (Negative); Ketones,Urine Negative (Negative); Leukocyte Esterase,Urine Negative (Negative); Nitrite,Urine Negative (Negative); Protein,Urine Negative (Negative); Specific Gravity,Urine 1.013 (1.001-1.035); Urobilinogen,Urine <2.0 mg/dL (<2.0)
[2020-01-16 23:01] VITALS: BP 134/91; PULSE 110; RESP 22
== END 2020-01-16 22:40 | disposition home or self-care (01) ==
LOC: EC 19:24
DX: R11.2 Nausea with vomiting, unspecified (principal); R10.13 Epigastric pain; R19.7 Diarrhea, unspecified; G89.29 Other chronic pain; M54.9 Dorsalgia, unspecified; I25.10 Atherosclerotic heart disease of native coronary artery without angina pectoris; J44.9 Chronic obstructive pulmonary disease, unspecified; M06.9 Rheumatoid arthritis, unspecified; F17.200 Nicotine dependence, unspecified, uncomplicated; Z87.39 Personal history of other diseases of the musculoskeletal system and connective tissue; Z86.718 Personal history of other venous thrombosis and embolism; Z86.711 Personal history of pulmonary embolism; Z87.19 Personal history of other diseases of the digestive system; Z86.14 Personal history of Methicillin resistant Staphylococcus aureus infection; Z95.5 Presence of coronary angioplasty implant and graft; Z96.652 Presence of left artificial knee joint; Z96.611 Presence of right artificial shoulder joint; Z79.891 Long term (current) use of opiate analgesic; Z79.01 Long term (current) use of anticoagulants; Z79.52 Long term (current) use of systemic steroids; Z79.899 Other long term (current) drug therapy
CPT/HCPCS: 36415; 80053; 82150; 83690; 85025; 81003; 74018; 99284; 96374; 96375 ×2; 96361 ×2; J2270; J2405; C9113

== ENCOUNTER 2020-02-14 11:34 | Inpatient (IN) | payer MEDICARE ==
[2020-02-14] MEDS ORDERED: IPRATROPIUM-ALBUTEROL 3 ML NEB INHALATION STA (12:05)
--- NOTE | 2020-02-14 12:13 | ED ---
SOB HPI - General Chief Complaint: Shortness of Breath Stated Complaint: back pain Time Seen by Provider: 02/14/20 11:45 Source: patient, family, RN notes reviewed, old records reviewed Mode of arrival: ambulatory Limitations: no limitations - History of Present Illness Initial Comments: This is a 74-year-old male history of COPD and also history of chronic leg wounds a history of left dbsja-swm-jtae amputation who states she's had shortness of breath while for the past 4-5 days with exertional dyspnea. Also is had increased pain in his low back. He states he was diagnosed with low back fractures about 6 months going 7 increased pain however. It is affecting his activities of daily living. He was sent here from the wound clinic. He denies a cough with this no fevers chills sweats no phlegm production. Complaint: shortness of breath - Related Data Home Medications Medication Instructions Recorded Confirmed oxyCODONE-APAP 10-325MG [Percocet 1 tab PO QID PRN 01/19/19 02/14/20 10-325 mg] predniSONE 10 mg PO QID PRN 01/16/20 02/14/20 Albuterol Inhaler [Ventolin Hfa 2 puff INHALATION RT-QID PRN 02/14/20 02/14/20 Inhaler] Ferrous Sulfate [Feosol] 325 mg PO DAILY 02/14/20 02/14/20 Fluticasone/Salmeterol 1 puff INHALATION RT-BID 02/14/20 02/14/20 [Fluticasone-Salmeterol 232-14] Meclizine [Antivert] 25 mg PO BID PRN 02/14/20 02/14/20 Rivaroxaban [Xarelto] 20 mg PO DAILY 02/14/20 02/14/20 Allergies Allergy/AdvReac Type Severity Reaction Status Date / Time No Known Allergies Allergy Verified 02/14/20 12:52 Review of Systems ROS Statement: Those systems with pertinent positive or pertinent negative responses have been documented in the HPI. ROS Other: All systems not noted in ROS Statement are negative. Past Medical History Past Medical History: Coronary Artery Disease (CAD), COPD, Deep Vein Thrombosis (DVT), Hyperlipidemia, Pneumonia, Pulmonary Embolus (PE), Rheumatoid Arthritis (RA), Vascular Disorder Additional Past Medical History / Comment(s): History of pancreatitis, 2013 past medical record documents viral pericarditis but pt denies, gastritis, Fluid build up rt lung - previous chest tube - pt unsure what it is from, BOTTOM TEETH REMOVED 09-01-18, wounds in his right lower extremity, left qduvv-gma-[id number] stump and left elbow History of Any Multi-Drug Resistant Organisms: MRSA Date of last positivie culture/infection: 11/23/18 MDRO Source:: KNEE Past Surgical History: Heart Catheterization With Stent, Joint Replacement, Orthopedic Surgery Additional Past Surgical History / Comment(s): Total L knee arthroplasty with a spacer in place, R total shoulder replaced, L ankle ORIF d/t fracture, EGD, left rotator cuff repair. 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 Date of Last Stent Placement:: 12/10/16 Past Psychological History: Anxiety, Depression Smoking Status: Current some day smoker Past Alcohol Use History: None Reported Past Drug Use History: None Reported - Past Family History Sister(s) Family Medical History: Cancer Additional Family Medical History / Comment(s): pt's father had ra, mother had 16 children was healthy most of her life age 93 from dementia. Mother Family Medical History: Dementia Additional Family Medical History / Comment(s): Mother from dementia at the age of 93 yrs. Father Family Medical History: Rheumatoid Arthritis (RA) General Exam - General Exam Comments Initial Comments: This is a well-developed alert and oriented appearing male who was noted have a difficult time ambulating. Limitations: no limitations General appearance: alert, anxious, in distress Head exam: Present: atraumatic, normocephalic, normal inspection Eye exam: Present: normal appearance, PERRL, EOMI. Absent: scleral icterus, conjunctival injection, periorbital swelling ENT exam: Present: mucous membranes dry Neck exam: Present: normal inspection, full ROM, other. Absent: tenderness, meningismus, lymphadenopathy Respiratory exam: Absent: respiratory distress, wheezes, rales, rhonchi, stridor Cardiovascular Exam: Present: normal rhythm, tachycardia, normal heart sounds. Absent: systolic murmur, diastolic murmur, rubs, gallop, clicks GI/Abdominal exam: Present: soft, normal bowel sounds. Absent: distended, tenderness, guarding, rebound, rigid Extremities exam: Present: full ROM, normal capillary refill, other (Left zurvl-ttf-[id number] amputation noted wound dressing on the right lower extremity). Absent: tenderness, pedal edema, joint swelling, calf tenderness Back exam: Present: tenderness, paraspinal tenderness (Over the lower lumbar region). Absent: full ROM Neurological exam: Present: alert, oriented X3, CN II-XII intact Psychiatric exam: Present: normal affect, normal mood Skin exam: Present: warm, dry, intact, other (Stasis changes to the right lower extremity). Absent: rash Course Vital Signs 02/14/20 02/14/20 11:39 15:12 Temperature 97.6 F Pulse Rate 110 H 87 Respiratory 28 H 18 Rate Blood Pressure 152/84 156/102 O2 Sat by Pulse 97 98 Oximetry Medical Decision Making - Medical Decision Making I did reevaluate patient several occasions he is breathing is somewhat approves that he still has exertional dyspnea. Due to the findings and the intractable back pain patient be admitted I did discuss the case with patient and his family and Dr. Vanegas - Lab Data Result diagrams: 02/14/20 12:12 02/14/20 12:12 Lab Results 02/14/20 02/14/20 02/14/20 Range/Units 12:12 12:12 12:12 WBC 10.0 (3.8-10.6) k/uL RBC 4.26 L (4.30-5.90) m/uL Hgb 11.0 L D (13.0-17.5) gm/dL Hct 35.8 L (39.0-53.0) % MCV 83.9 D (80.0-100.0) fL MCH 25.8 (25.0-35.0) pg MCHC 30.8 L (31.0-37.0) g/dL RDW 18.7 H (11.5-15.5) % Plt Count 361 (150-450) k/uL Neutrophils % 78 % Lymphocytes % 16 % Monocytes % 4 % Eosinophils % 1 % Basophils % 0 % Neutrophils # 7.8 H (1.3-7.7) k/uL Lymphocytes # 1.6 (1.0-4.8) k/uL Monocytes # 0.4 (0-1.0) k/uL Eosinophils # 0.1 (0-0.7) k/uL Basophils # 0.0 (0-0.2) k/uL Hypochromasia Slight Anisocytosis Slight PT 9.9 (9.0-12.0) sec INR 1.0 (<1.2) APTT 20.5 L (22.0-30.0) sec D-Dimer 1.54 H (<0.60) mg/L FEU Sodium 140 (137-145) mmol/L Potassium 4.1 (3.5-5.1) mmol/L Chloride 108 H (98-107) mmol/L Carbon Dioxide 21 L (22-30) mmol/L Anion Gap 11 mmol/L BUN 15 (9-20) mg/dL Creatinine 0.55 L (0.66-1.25) mg/dL Est GFR (CKD-EPI)AfAm >90 (>60 ml/min/1.73 sqM) Est GFR (CKD-EPI)NonAf >90 (>60 ml/min/1.73 sqM) Glucose 125 H (74-99) mg/dL Plasma Lactic Acid Harsh (0.7-2.0) mmol/L Calcium 8.8 (8.4-10.2) mg/dL Magnesium 1.9 (1.6-2.3) mg/dL Total Bilirubin 0.5 (0.2-1.3) mg/dL AST 22 (17-59) U/L ALT 16 (4-49) U/L Alkaline Phosphatase 127 H (38-126) U/L Creatine Kinase 32 L (55-170) U/L Troponin I (0.000-0.034) ng/mL NT-Pro-B Natriuret Pep pg/mL Total Protein 5.8 L (6.3-8.2) g/dL Albumin 3.3 L (3.5-5.0) g/dL Coronavirus (PCR) (Not Detectd) 02/14/20 02/14/20 02/14/20 Range/Units 12:12 12:12 12:12 WBC (3.8-10.6) k/uL RBC (4.30-5.90) m/uL Hgb (13.0-17.5) gm/dL Hct (39.0-53.0) % MCV (80.0-100.0) fL MCH (25.0-35.0) pg MCHC (31.0-37.0) g/dL RDW (11.5-15.5) % Plt Count (150-450) k/uL Neutrophils % % Lymphocytes % % Monocytes % % Eosinophils % % Basophils % % Neutrophils # (1.3-7.7) k/uL Lymphocytes # (1.0-4.8) k/uL Monocytes # (0-1.0) k/uL Eosinophils # (0-0.7) k/uL Basophils # (0-0.2) k/uL Hypochromasia Anisocytosis PT (9.0-12.0) sec INR (<1.2) APTT (22.0-30.0) sec D-Dimer (<0.60) mg/L FEU Sodium (137-145) mmol/L Potassium (3.5-5.1) mmol/L Chloride (98-107) mmol/L Carbon Dioxide (22-30) mmol/L Anion Gap mmol/L BUN (9-20) mg/dL Creatinine (0.66-1.25) mg/dL Est GFR (CKD-EPI)AfAm (>60 ml/min/1.73 sqM) Est GFR (CKD-EPI)NonAf (>60 ml/min/1.73 sqM) Glucose (74-99) mg/dL Plasma Lactic Acid Harsh 2.7 H* (0.7-2.0) mmol/L Calcium (8.4-10.2) mg/dL Magnesium (1.6-2.3) mg/dL Total Bilirubin (0.2-1.3) mg/dL AST (17-59) U/L ALT (4-49) U/L Alkaline Phosphatase (38-126) U/L Creatine Kinase (55-170) U/L Troponin I <0.012 (0.000-0.034) ng/mL NT-Pro-B Natriuret Pep 158 pg/mL Total Protein (6.3-8.2) g/dL Albumin (3.5-5.0) g/dL Coronavirus (PCR) (Not Detectd) 02/14/20 Range/Units 12:30 WBC (3.8-10.6) k/uL RBC (4.30-5.90) m/uL Hgb (13.0-17.5) gm/dL Hct (39.0-53.0) % MCV (80.0-100.0) fL MCH (25.0-35.0) pg MCHC (31.0-37.0) g/dL RDW (11.5-15.5) % Plt Count (150-450) k/uL Neutrophils % % Lymphocytes % % Monocytes % % Eosinophils % % Basophils % % Neutrophils # (1.3-7.7) k/uL Lymphocytes # (1.0-4.8) k/uL Monocytes # (0-1.0) k/uL Eosinophils # (0-0.7) k/uL Basophils # (0-0.2) k/uL Hypochromasia Anisocytosis PT (9.0-12.0) sec INR (<1.2) APTT (22.0-30.0) sec D-Dimer (<0.60) mg/L FEU Sodium (137-145) mmol/L Potassium (3.5-5.1) mmol/L Chloride (98-107) mmol/L Carbon Dioxide (22-30) mmol/L Anion Gap mmol/L BUN (9-20) mg/dL Creatinine (0.66-1.25) mg/dL Est GFR (CKD-EPI)AfAm (>60 ml/min/1.73 sqM) Est GFR (CKD-EPI)NonAf (>60 ml/min/1.73 sqM) Glucose (74-99) mg/dL Plasma Lactic Acid Harsh (0.7-2.0) mmol/L Calcium (8.4-10.2) mg/dL Magnesium (1.6-2.3) mg/dL Total Bilirubin (0.2-1.3) mg/dL AST (17-59) U/L ALT (4-49) U/L Alkaline Phosphatase (38-126) U/L Creatine Kinase (55-170) U/L Troponin I (0.000-0.034) ng/mL NT-Pro-B Natriuret Pep pg/mL Total Protein (6.3-8.2) g/dL Albumin (3.5-5.0) g/dL Coronavirus (PCR) Not Detected (Not Detectd) - EKG Data -: EKG Interpreted by Me EKG Comments: Normal sinus rhythm of 96. Interval 146 QRS duration 80 QT since QTC 342/[address]-T wave changes - Radiology Data Radiology results: report reviewed (I did review the imaging and reports x-ray shows some possible atelectasis versus infiltrate CAT scan was done however to rule out recurrent PE negative and the CAT scan shows evidence of compressive atelectasis.), image reviewed Disposition Clinical Impression: COPD exacerbation, Intractable low back pain Disposition: ADMITTED IP TO THIS HOSP Condition: Fair Referrals: Ruthy Montemayor DO [Primary Care Provider] - 1-2 days
[2020-02-14] MEDS ORDERED: ALBUTEROL HFA INHALER INHALATION STA (12:25)
[2020-02-14] MEDS: methylPREDNISolone SOD SUCCI 125 MG/2 ML VIAL IV STA ×2 (12:33→13:07)
[2020-02-14] MEDS ORDERED: HYDROmorphone 1 MG/ML 1 ML SYRINGE IVP STA ×3 (12:41→18:39)
[2020-02-14] MEDS ORDERED: methylPREDNISolone SOD SUCCI 125 MG/2 ML VIAL IV STA (12:47)
[2020-02-14 12:53] LABS: Anisocytosis Slight; Basophils % (A) 0 %; Eosinophils # (A) 0.1 k/uL (0-0.7); Eosinophils % (A) 1 %; HCT 35.8 % (39.0-53.0); Hypochromasia Slight; Lymphocytes # (A) 1.6 k/uL (1.0-4.8); Lymphocytes % (A) 16 %; MCH 25.8 pg (25.0-35.0); MCHC 30.8 g/dL (31.0-37.0); Mean Platelet Volume 7.4; Monocytes # (A) 0.4 k/uL (0-1.0); Monocytes % (A) 4 %; Neutrophils # (A) 7.8 k/uL (1.3-7.7); Neutrophils % (A) 78 %; Platelet Count 361 k/uL (150-450); RBC 4.26 m/uL (4.30-5.90); RDW 18.7 % (11.5-15.5)
[2020-02-14 13:06] LABS: MCV 83.9 fL (80.0-100.0)
[2020-02-14 13:17] LABS: Prothrombin Time 9.9 sec (9.0-12.0)
[2020-02-14 13:20] LABS: ALT 16 U/L (4-49); AST 22 U/L (17-59); African American GFR (CKD) >90 (>60 ml/min/1.73 sqM); Albumin 3.3 g/dL (3.5-5.0); Alkaline Phosphatase 127 U/L (38-126); Anion Gap 11 mmol/L; Blood Urea Nitrogen 15 mg/dL (9-20); Calcium 8.8 mg/dL (8.4-10.2); Carbon Dioxide 21 mmol/L (22-30); Chloride 108 mmol/L (98-107); Creatine Kinase 32 U/L (55-170); Glucose 125 mg/dL (74-99); Magnesium 1.9 mg/dL (1.6-2.3); Non-African American GFR(CKD) >90 (>60 ml/min/1.73 sqM); Potassium 4.1 mmol/L (3.5-5.1); Sodium 140 mmol/L (137-145); Total Bilirubin 0.5 mg/dL (0.2-1.3); Total Protein 5.8 g/dL (6.3-8.2)
[2020-02-14 13:22] LABS: D-Dimer 1.54 mg/L FEU (<0.60); Partial Thromboplastin Time 20.5 sec (22.0-30.0)
--- NOTE | 2020-02-14 13:27 | XR ---
EXAMINATION TYPE: XR chest 2V DATE OF EXAM: 02/14/2020 COMPARISON: 12/20/2019 HISTORY: Increased shortness of breath. History of COPD. TECHNIQUE: Frontal and lateral views of the chest are obtained. FINDINGS: There is a retrocardiac opacity along the thoracic lumbar junction on the lateral view. Ve ry mild pulmonary edema on the lateral view with central vascular engorgement. Cardiomediastinal silh ouette is mildly enlarged. Reverse right humeral arthroplasty is partially seen. There is a pleural p arenchymal scarring are noted. There is diffuse osseous demineralization. Nondiagnostic evaluation of the thoracic spine. IMPRESSION: Retrocardiac opacity that may represent atelectasis or pneumonia. Pulmonary vascular con gestion on the lateral view. Consider congestive heart failure.
--- NOTE | 2020-02-14 15:05 | CT ---
EXAMINATION TYPE: CT angio chest DATE OF EXAM: 02/14/2020 COMPARISON: None HISTORY: Shortness of breath CT DLP: 431.4 mGycm CONTRAST: CT chest with contrast and 3D reconstruction with MIP imaging is performed with IV Contrast, patient injected with 100 mL of Isovue 370. Contrast-enhanced CT of the chest was performed through the course of the pulmonary arteries with aishwarya g and mediastinal window settings submitted. 3D reconstruction with MIP imaging was also performed. PULMONARY ARTERIES: The pulmonary arteries and their major tributaries are patent. I do not see alisia dence for sizable filling defect to suggest pulmonary embolic process. LUNGS: Basilar compressive atelectasis and tiny effusions. Emphysematous changes noted. MEDIASTINUM: Thoracic aorta is nonaneurysmal. The heart is not enlarged. No evidence for mediastinal mass. No mediastinal lymph nodes greater than 1cm. HILAR STRUCTURES: No evidence for mass. No hilar lymph nodes greater than 1 cm. UPPER ABDOMEN: No significant abnormality is seen. IMPRESSION: 1. No evidence for Pulmonary embolism at this time.
[2020-02-14] MEDS ORDERED: SODIUM CHLORIDE 0.9% 1,000 ML IV STA (15:22)
[2020-02-14] MEDS ORDERED: MECLIZINE 25 MG TAB PO PRN (15:43)
[2020-02-14] MEDS: oxyCODONE-APAP 10-325MG 1 EACH TAB PO PRN (17:12)
[2020-02-14] MEDS: methylPREDNISolone SOD SUCCI 125 MG/2 ML VIAL IV SCH ×2 (17:14→23:49)
[2020-02-14] MEDS: SYMBICORT 160-4.5 MCG INHALER INHALATION SCH (19:11)
[2020-02-14 20:26] LABS: Glucose,Whole Blood 181 mg/dL (75-99)
[2020-02-14] MEDS: MORPHINE SULFATE 4 MG/ML SYRINGE IVP PRN (21:59)
[2020-02-14] MEDS ORDERED: HYDROmorphone 0.5 MG/0.5 ML SYRINGE IM STA (23:42)
[2020-02-14] MEDS ORDERED: HYDROmorphone 0.5 MG/0.5 ML SYRINGE IVP STA (23:45)
[2020-02-15] MEDS: MORPHINE SULFATE 4 MG/ML SYRINGE IVP PRN ×3 (01:33→08:56)
[2020-02-15] MEDS: SODIUM CHLORIDE 0.9% 1,000 ML IV SCH ×4 (02:17→20:52)
[2020-02-15] MEDS: methylPREDNISolone SOD SUCCI 125 MG/2 ML VIAL IV SCH ×4 (05:23→23:44)
[2020-02-15 06:52] LABS: Glucose,Whole Blood 154 mg/dL (75-99)
[2020-02-15] MEDS: IPRATROPIUM-ALBUTEROL 3 ML NEB INHALATION PRN ×2 (07:31→11:37)
[2020-02-15] MEDS: SYMBICORT 160-4.5 MCG INHALER INHALATION SCH ×2 (07:31→20:47)
[2020-02-15] MEDS: oxyCODONE-APAP 10-325MG 1 EACH TAB PO PRN ×2 (08:04→14:03)
[2020-02-15] MEDS: FERROUS SULFATE 325 MG TAB PO SCH (08:56)
[2020-02-15] MEDS: RIVAROXABAN 20 MG TAB PO SCH (08:56)
--- OUTSIDE RECORDS SUMMARY | 2020-02-15 09:29 | XMS REPORT | Referral Summary ---
:1945 Author Name Tristen Address [address] [place] [address] Care Team Providers Name Role Phone Geovanna Unavailable Unavailable James Unavailable Unavailable Erb Unavailable Unavailable Gilma Unavailable Unavailable Allergies, Adverse Reactions and Alerts Substance Reaction Reaction Severity Status No Known Drug Allergies Unspecified Active Medications Medication Directions Start Date Status Eliquis 5 mg tablet tablet oral Unspecified active prednisone 10 mg tablet tablet oral 30 MG DAILY Unspecified active Percocet 10 mg-325 mg tablet tablet oral 2 EVERY 6 HOURS Unspeci fied active aspirin 81 mg chewable tablet 1 tablet,chewable oral Unspecified active loratadine 10 mg tablet one tablet oral daily 08/17/2019 ac tive morphine ER 20 mg capsule,extended 1 capsule,extend.release josue ets 09/04/2019 active release pellets oral/bid oxycodone 10 mg tablet 1 tablet oral/BID 09/04/2019 active atorvastatin 80 mg tablet 1 tablet oral/daily 09/04/2019 ac tive Lopressor 50 mg tablet 1 tablet oral/daily 09/04/2019 activ e cefdinir 300 mg capsule 1 capsule oral/BID 09/04/2019 activ e Xarelto 15 mg tablet 1 tablet oral/daily 09/04/2019 active Protonix 40 mg tablet,delayed 1 tablet,delayed release (DR/EC) 1 11/04/2018 active release oral/bid Problems Problem Onset Date Status L97.215 - Non-pressure chronic ulcer of right calf with [facility] 08/17/2019 active involvement without evidence of necrosis L97.125 - Non-pressure chronic ulcer of left thigh with [facility] 08/17/2019 active involvement without evidence of necrosis S81.811A - Laceration without foreign body, right lower leg, 08/17/2019 active initial encounter M06.9 - Rheumatoid arthritis, unspecified 08/17/2019 active J44.1 - Chronic obstructive pulmonary disease with (acute) 1 10/17/2018 active exacerbation T81.30XA - Disruption of wound, unspecified, initial encount er 08/17/2019 active Encounters Date Location 08/17/2019 12:00:00 AM [facility] Encounter Diagnosis: L97.215 - Non-pressure chronic ulcer of right calf with muscle involvement without evidence of necrosis Encounter Diagnosis: L97.125 - Non-pressure chronic ulcer of left thigh with muscle involvement without evidence of necrosis Encounter Diagnosis: S81.811A - Laceration without foreign body, right lower leg, initial encounter Encounter Diagnosis: M06.9 - Rheumatoid arthritis, unspecified Encounter Diagnosis: J44.1 - Chronic obstructive pulmonary disease with (acute) exacerbation Encounter Diagnosis: T81.30XA - Disruption of wound, unspecified, initial encounter Vital signs Vital Value Unit Height 67 [in_i] Weight Measured 175 [lb_av] BP Systolic 121 mm[Hg] BP Diastolic 78 mm[Hg] BMI (Body Mass Index) 27.4 Unspecified Weight Measured 79.55 kg Body Temperature 98.6 [degF] Body Temperature 37 Roxanne O2 % BldC Oximetry Unspecified Unspecified Heart Rate 117 /min Respiratory Rate 18 /min Inhaled O2 concentration Unspecified Unspecified Immunizations Name Date Status Immunization information has not been included or does not e xist. Procedures Procedure Date Status Debridement (eg. high pressure waterjet w/wo suction, sharp 02/14/2020 Completed selective debridement with scissors, scalpel, & forceps)incl uding topical application(s), total wound surface area; 1st 20 sqc m or less Social History Smoking Status: Current every day smoker Started: 10/13/1964 Goals Description Goal: Necrotic/devitalized tissue will b e minimized in the wound bed Goal: Patient/caregiver will verbalize u nderstanding of reason and process for debridement of necrotic tissue Goal: Patient/caregiver will verbalize u nderstanding of the [facility] Program Goal: Patient will remain free of wound infection Goal: Patient/caregiver will verbalize u nderstanding of or measures to prevent infection and contamination in the home setting Goal: Patient's soft tissue infection wi ll resolve Goal: Signs and symptoms of infection wi ll be recognized early to allow for prompt treatment Goal: Patient will demonstrate a reduced rate of smoking or cessation of smoking Goal: Patient/caregiver will verbalize u nderstanding of skin care regimen Goal: Ulcer/skin breakdown will have a v olume reduction of 30% by week 4 Goal: Ulcer/skin breakdown will have a v olume reduction of 50% by week 8 Goal: Ulcer/skin breakdown will have a v olume reduction of 80% by week 12 Goal: Ulcer/skin breakdown will heal wit hin 14 weeks Health Concerns Description Problem: Necrotic Tissue Problem: Orientation to the Wound Care P keysha Problem: Soft Tissue Infection Problem: Wound/Skin Impairment Functional Status Description Date Cognitive Status: Alert and Oriented x 3 (Active) 08/17 Ambulatory Status - Wheel Chair (Active) 02/14/2020 Assessment and Plan Description Laboratory: CBC W Auto Differential pane l. Laboratory: Comprehensive metabolic pane l=CMS. Laboratory: Prealbumin. Services and Therapies: Pulse Volume Rec ording (PVR). Notes: Right leg. Services and Therapies: Segmental Pressu res with Toe. Notes: Right leg. Services and Therapies: Venous Duplex Do ppler. Notes: Right leg. Plan of Treatment: Apply topical anesthe tic as ordered Plan of Treatment: Excisional debridemen t Plan of Treatment: Test ordered outside of clinic Assessment: this is a 74-year-old Hispan ic male who presents to the wound care center with a nonhealing ulceration to the [facility] t lower extremity and the left kftxx-bzm-lrll amputation site. Apparently 3 weeks ago the patient was pulling a roaster down that fell onto his leg. He was seen by the e mergency room who directed him to go to the wound care center. Patient has a signif icant amount of slough to the area. Home care has been applying a dressing 3 time s a week to the site. Patient has tendon exposure. To the site. Patient also rodrigues d a kyysg-vut-mudt indentation to the left lower extremity. This is due to osteomy elitis. Patient had a infection and his prosthetic knee. 4 probably 1 year atte mpted IV antibiotics and removal of the infected material. However due to inabi lity to treat the infection patient underwent a indication [id number]. Patient rodrigues s an ulceration to the incisional site and medial aspects suture present. Patient did not initially come in for the amputation site. His main concern is the ulceratio n to the right lower extremity. Patient denies diabetes. Patient does smoke 2-3 cigarettes a day. This is down from a pack and a half for the last 15 years. shasta t's past medical history significant for coronary artery disease, COPD, hyperlipi demia, rheumatoid arthritis.08/24/2019: Patient is a positive for proteus mirabi lis, he is currently being treated by infectious disease for infection. We wi ll hold off on any treatment at this time. Patient is tolerating dressings without any difficulties.08/24/2019: Patient is tolerating dressings without any difficu lties. Patient has no concerns or complaints at this time.09/07/2019: Patient was in hospital for chest pain found to have acute to subacute left iliofemoral deep vein t hrombosis, pain is currently on anticoagulants at this time.09/14/2019: Patient is tolerating dressings without any difficulty. Patient has no concerns or complaints at this time.09/21/2019: Patient is tolerating dressings without any diff iculties. Patient has no new complaints or concerns at this time.09/28/2019: Shasta gonzalez is tolerating dressing without any difficulties. he has no new complaints or concerns at this time.10/05/2019: Patient is tolerating dressings without any diff iculties. No complaint or concerns at this time.10/12/2019: No complaints or concer ns at this time. Patient is tolerating dressings.10/18/2019: Patient is no comp letes or concerns. Patient will be traveling for the next 2 weeks going to visit his daughter in [place].11/08/2019: Patient had a fall from his wheelchair going backwards . Causing a ulceration to the left elbow. Patient's multiple bruises noted on bila teral legs.11/15/2019: Patient is tolerating dressings without any difficulties. Lindsey banerjee has no complaints or concerns.11/22/2019: Patient is tolerati ng dressings. He is having increased pain due to arthritis.11/29/2019: Patient has increased pain due to arthritis. Tolerating dressings.12/06/2019: Patient is having a bone scan done due to a fall he previously had. Patient continues to have pain wit h arthritis. No other complaints or concerns tolerating svjtnwksa76/09/2020: Patient is feeling very poorly today. He's complaining of dizziness and unable to t olerate movement. Dressings are going well for patient complains with the ulceratio ns.12/27/2019: Patient was in the hospital for 5 days a with pneumonia and pulmonar y embolism. Would patient remove the dressing today it was found to have the therapist can slide down the leg.01/03/2020: Patient is tolerating dressings. He con tinues to have significant amount of pain to his back.01/17/2020: Patient continues t o have significant amount of pain and discomfort. Patient is having weakness that comes and goes. Patient is tolerating dressings without any vknektciudmq43/20/ 2020: Patient has no complaint or concerns at this time. Patient is feeling better th an he has been in the last few weeks.02/14/2020: Patient is having trem endous amount of back pain. He is tolerating dressings. Results Name Specimen Value Unit Ref. Range Date Result information has not been included or does not exist. Medical Equipment Implanted Area ELIAZAR Assigning Author tyler Medical Equipment information has not been included or does not exist. Reason for Referral transition of care
[2020-02-15 11:22] LABS: Glucose,Whole Blood 198 mg/dL (75-99)
[2020-02-15] MEDS: MORPHINE SULFATE ER 15 MG TABLET PO SCH ×2 (11:24→20:52)
--- NOTE | 2020-02-15 12:15 | P.CNOR ---
History of Present Illness - [facility] Consult date: 02/15/20 Requesting physician: Julio Cesar Fernando Consult reason: low back pain (Intractable low back pain) History of present illness: Patient is a very pleasant 74-year-old male who is well known to our service who is seen and examined at the bedside for further evaluation in regards to his lumbar spine. Patient presented to the emergency department yesterday after shortness of breath and dyspnea with exertion. During his presentation to the emergency department he stated he has been experiencing increased back pain over the past month without injury. Patient is known have previously been diagnosed with multiple compression fracture deformities at his thoracic and lumbar spines. He was fitted with an LSO brace approximately one year ago. He states that brace fit at that time and since that time he feels he has gained weight he can no longer wear this brace appropriately. The brace will not fit around his waist. He denies any recent injuries. He is known have a left above-knee amputation. He does continue has significant difficulty with bilateral lower extremity wounds. He currently has a wound over the right anterior kc which is currently dressed. He has multiple bruises and scabs over the right lower extremity and at the amputation site of the left lower extremity. He is not currently experiencing any significant thoracic pain. He does have significant lumbar pain and most significant at the lumbosacral junction and to the right of the lower lumbar spine. He currently denies any lower extremity radiculopathy bilaterally. He is not expressing any change in his lower extremities. He is not ambulatory. He is unable to weight-bear on the right lower extremity. This is chronic for him. He uses a wheelchair to aid in ambulation. He is known to have previously had a bone scan performed on 12/07/2019. He was last seen at our office at [facility] on 12/28/2019 in regards to his lumbar spine and imaging at that time did show compression fracture deformities at L2 and L4. He has not had any new imaging during his admission to the emergency department in regards to his spine. He did have a CTA of the chest performed. Patient was transferred to the emergency department by wound clinic who treats chronic wounds of the lower extremities. Patient has a medical history which includes COPD, DVT, hyperlipidemia, pulmonary embolus, and coronary artery disease Past Medical History Past Medical History: Coronary Artery Disease (CAD), COPD, Deep Vein Thrombosis (DVT), Hyperlipidemia, Pneumonia, Pulmonary Embolus (PE), Rheumatoid Arthritis (RA), Vascular Disorder Additional Past Medical History / Comment(s): History of pancreatitis, 2012 past medical record documents viral pericarditis but pt denies, gastritis, Fluid build up rt lung - previous chest tube - pt unsure what it is from, BOTTOM TEETH REMOVED 09-01-18, wounds in his right lower extremity, left cffxp-dij-wqkw stump and left elbow History of Any Multi-Drug Resistant Organisms: MRSA Year Discovered:: 11/23/18 MDRO Source:: KNEE Past Surgical History: Heart Catheterization With Stent, Joint Replacement, Orthopedic Surgery Additional Past Surgical History / Comment(s): Total L knee arthroplasty with a spacer in place, R total shoulder replaced, L ankle ORIF d/t fracture, EGD, left rotator cuff repair. right ankle sx, thoracentesis, chest tube rt lung, LT above the knee amputation -2018 Past Anesthesia/Blood Transfusion Reactions: No Reported Reaction Additional Past Anesthesia/Blood Transfusion Reaction / Comm: Pt states he has never recieved blood. Date of Last Stent Placement:: 12/10/16 Past Psychological History: Anxiety, Depression Additional Psychological History / Comment(s): Patient was a smoker one to one and half packs per day for 40+ years and quit 2 years ago when he had cardiac stents done. He uses a synthetic marijuana at nighttime only for his arthritis to help him sleep. He denies any other street drug use, alcohol use. 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 He lives at home with his . Smoking Status: Former smoker Past Alcohol Use History: None Reported Additional Past Alcohol Use History / Comment(s): Patient was a smoker one to one and half packs per day for 40+ years and quit in 2016 when he had cardiac stents done. Past Drug Use History: None Reported - Past Family History Sister(s) Family Medical History: Cancer Additional Family Medical History / Comment(s): pt's father had ra, mother had 16 children was healthy most of her life age 93 from dementia. Mother Family Medical History: Dementia Additional Family Medical History / Comment(s): Mother from dementia at the age of 93 yrs. Father Family Medical History: Rheumatoid Arthritis (RA) Medications and Allergies Home Medications Medication Instructions Recorded Confirmed Type oxyCODONE-APAP 10-325MG [Percocet 1 tab PO QID PRN 01/19/19 02/14/20 History 10-325 mg] predniSONE 10 mg PO QID PRN 01/16/20 02/14/20 History Albuterol Inhaler [Ventolin Hfa 2 puff INHALATION RT-QID PRN 02/14/20 02/14/20 History Inhaler] Ferrous Sulfate [Feosol] 325 mg PO DAILY 02/14/20 02/14/20 History Fluticasone/Salmeterol 1 puff INHALATION RT-BID 02/14/20 02/14/20 History [Fluticasone-Salmeterol 232-14] Meclizine [Antivert] 25 mg PO BID PRN 02/14/20 02/14/20 History Rivaroxaban [Xarelto] 20 mg PO DAILY 02/14/20 02/14/20 History Allergies Allergy/AdvReac Type Severity Reaction Status Date / Time No Known Allergies Allergy Verified 02/14/20 12:52 Physical Examination Physical exam: Patient is awake, alert, and oriented 3 Vital signs stable Adequate chest excursion with deep inspiration and expiration Examination of thoracic and lumbar spine reveals skin is intact with no abrasions, lacerations, or bruises; no erythema, purulence or signs of infection Significant pain with palpation at the lumbosacral junction and over the right sacroiliac joint No pain with palpation along the thoracic spine Dorsiflexion, plantarflexion, and extensor hallucis longus positive sustained on the right Evidence of a left above-knee amputation Multiple wounds of various healing without open wounds over the right lower extremity and at the surgical site of the above-knee amputation at the left lower extremity Evidence of a dressing over the right kc covering a wound No lower extremity hyperreflexia on the right No signs or symptoms of DVT; no calf pain on the right No pain with internal and external rotation of the hips bilaterally Neurovascularly intact Results Pertinent studies: CTA of the chest reviewed for orthopedic purposes taken on 02/14/2020: Multiple compression fracture deformities that appeared to be at approximately T4, T5 superior endplate, T8 inferior endplate, T10 superior endplate, and T11 superior endplate Nuclear medicine whole-body bone scan performed on 12/07/2019: Increased uptake at T4, T6, L3, and L4; increased uptake at the left femur with history of above- knee amputation; increased uptake at the second right rib; subtle uptake at the right tibia; no evidence of increased uptake at L2 in which a compression fracture was visible at this level on a chest CT taken on 09/12/2019 CT of the abdomen and pelvis taken on 09/03/2019 reviewed for orthopedic purposes: L4-5 degenerative disc disease, spondylolisthesis, and herniated nucleus pulposus; L5-S1 retrolisthesis and degenerative disc disease; thoracic degenerative disc disease; no obvious fractures identified in the thoracic or lumbar spines from T8 extending through the lumbar spine - Labs Labs: Abnormal Lab Results - Last 24 Hours (Table) 02/14/20 02/14/20 02/14/20 Range/Units 12:12 12:12 12:12 RBC 4.26 L (4.30-5.90) m/uL Hgb 11.0 L D (13.0-17.5) gm/dL Hct 35.8 L (39.0-53.0) % MCHC 30.8 L (31.0-37.0) g/dL RDW 18.7 H (11.5-15.5) % Neutrophils # 7.8 H (1.3-7.7) k/uL APTT 20.5 L (22.0-30.0) sec D-Dimer 1.54 H (<0.60) mg/L FEU Chloride 108 H (98-107) mmol/L Carbon Dioxide 21 L (22-30) mmol/L Creatinine 0.55 L (0.66-1.25) mg/dL Glucose 125 H (74-99) mg/dL POC Glucose (mg/dL) (75-99) mg/dL Plasma Lactic Acid Harsh (0.7-2.0) mmol/L Alkaline Phosphatase 127 H (38-126) U/L Creatine Kinase 32 L (55-170) U/L Total Protein 5.8 L (6.3-8.2) g/dL Albumin 3.3 L (3.5-5.0) g/dL 02/14/20 02/14/20 02/15/20 Range/Units 12:12 20:24 06:50 RBC (4.30-5.90) m/uL Hgb (13.0-17.5) gm/dL Hct (39.0-53.0) % MCHC (31.0-37.0) g/dL RDW (11.5-15.5) % Neutrophils # (1.3-7.7) k/uL APTT (22.0-30.0) sec D-Dimer (<0.60) mg/L FEU Chloride (98-107) mmol/L Carbon Dioxide (22-30) mmol/L Creatinine (0.66-1.25) mg/dL Glucose (74-99) mg/dL POC Glucose (mg/dL) 181 H 154 H (75-99) mg/dL Plasma Lactic Acid Harsh 2.7 H* (0.7-2.0) mmol/L Alkaline Phosphatase (38-126) U/L Creatine Kinase (55-170) U/L Total Protein (6.3-8.2) g/dL Albumin (3.5-5.0) g/dL 02/15/20 Range/Units 11:21 RBC (4.30-5.90) m/uL Hgb (13.0-17.5) gm/dL Hct (39.0-53.0) % MCHC (31.0-37.0) g/dL RDW (11.5-15.5) % Neutrophils # (1.3-7.7) k/uL APTT (22.0-30.0) sec D-Dimer (<0.60) mg/L FEU Chloride (98-107) mmol/L Carbon Dioxide (22-30) mmol/L Creatinine (0.66-1.25) mg/dL Glucose (74-99) mg/dL POC Glucose (mg/dL) 198 H (75-99) mg/dL Plasma Lactic Acid Harsh (0.7-2.0) mmol/L Alkaline Phosphatase (38-126) U/L Creatine Kinase (55-170) U/L Total Protein (6.3-8.2) g/dL Albumin (3.5-5.0) g/dL H & H 02/14/20 Range/Units 12:12 Hgb 11.0 L D (13.0-17.5) gm/dL Hct 35.8 L (39.0-53.0) % Coagulation 02/14/20 Range/Units 12:12 INR 1.0 (<1.2) Result Diagrams: 02/14/20 12:12 02/14/20 12:12 Assessment and Plan Assessment: Assessment: Acute on chronic intractable low back pain History of multiple compression fracture deformities at his thoracic and lumbar spines L4-5 degenerative disc disease, spondylolisthesis, and herniated nucleus pulposus L5-S1 retrolisthesis and degenerative disc History left above-knee amputation Non-ambulatory Shortness of breath with dyspnea on exertion History of difficulty with wounds of the bilateral lower extremity currently receiving treatment with wound care COPD History of DVT Hyperlipidemia History of pulmonary embolus History of coronary artery disease (1) Thoracic compression fracture Current Visit: Yes Status: Acute Code(s): S22.000A - WEDGE COMPRESSION FRACTURE OF UNSP THORACIC VERTEBRA, INIT SNOMED Code(s): 105259022 (2) Lumbar compression fracture Current Visit: Yes Status: Acute Code(s): S32.000A - WEDGE COMPRESSION FRACTURE OF UNSP LUMBAR VERTEBRA, INIT SNOMED Code(s): 328977326 (3) Lumbar degenerative disc disease Current Visit: Yes Status: Acute Code(s): M51.36 - OTHER INTERVERTEBRAL DISC DEGENERATION, LUMBAR REGION SNOMED Code(s): 39051086 (4) Lumbar spinal stenosis Current Visit: Yes Status: Acute Code(s): M48.061 - SPINAL STENOSIS, LUMBAR REGION WITHOUT NEUROGENIC TAMEKA SNOMED Code(s): 43695079 (5) Spondylolisthesis, lumbar region Current Visit: Yes Status: Acute Code(s): M43.16 - SPONDYLOLISTHESIS, LUMBAR REGION SNOMED Code(s): 796398523409184 (6) DDD (degenerative disc disease), lumbosacral Current Visit: Yes Status: Acute Code(s): M51.37 - OTHER INTERVERTEBRAL DISC DEGENERATION, LUMBOSACRAL REGION SNOMED Code(s): 96157081 (7) Spondylolisthesis, lumbosacral region Current Visit: Yes Status: Acute Code(s): M43.17 - SPONDYLOLISTHESIS, LUMBOSACRAL REGION SNOMED Code(s): 581862995 (8) Shortness of breath Current Visit: Yes Status: Acute Code(s): R06.02 - SHORTNESS OF BREATH SNOMED Code(s): 541874904 (9) Dyspnea on exertion Current Visit: Yes Status: Acute Code(s): R06.00 - DYSPNEA, UNSPECIFIED SNOMED Code(s): 61402662 (10) History of COPD Current Visit: Yes Status: Acute Code(s): Z87.09 - PERSONAL HISTORY OF OTHER DISEASES OF THE RESPIRATORY SYSTEM SNOMED Code(s): 877027699 (11) History of DVT (deep vein thrombosis) Current Visit: Yes Status: Acute Code(s): Z86.718 - PERSONAL HISTORY OF OTHER VENOUS THROMBOSIS AND EMBOLISM SNOMED Code(s): 535991212 (12) History of pulmonary embolism Current Visit: Yes Status: Acute Code(s): Z86.711 - PERSONAL HISTORY OF PULMONARY EMBOLISM SNOMED Code(s): 530110811 (13) History of coronary artery disease Current Visit: Yes Status: Acute Code(s): Z86.79 - PERSONAL HISTORY OF OTHER DISEASES OF THE CIRCULATORY SYSTEM SNOMED Code(s): 751928832 (14) Hyperlipidemia Current Visit: Yes Status: Acute Code(s): E78.5 - HYPERLIPIDEMIA, UNSPECIFIED SNOMED Code(s): 52941491 (15) Chronic wound of extremity Current Visit: Yes Status: Acute Code(s): UCE3981 - SNOMED Code(s): 031582129 (16) Above knee amputation of left lower extremity Current Visit: Yes Status: Acute Code(s): S78.112A - COMPLETE TRAUMATIC AMP AT LEVEL BETW LEFT HIP AND KNEE, INIT SNOMED Code(s): 480961083 (17) Intractable low back pain Current Visit: Yes Status: Acute Code(s): M54.5 - LOW BACK PAIN SNOMED Code(s): 03951295335879858 Plan: Plan: 1. Patient does have a significant medical history with known multiple compression fracture deformities at his thoracic and lumbar spines. Currently, his pain is most significant at the lower lumbar spine at the lumbosacral junction at the right sacral iliac joint. Recent imaging of chest CT taken on 02/14/2020 does show multiple thoracic compression fracture deformities. There is no new imaging regards to his lumbar spine. At this time given his history of multiple fractures at his thoracic and lumbar spines, along with acute on chronic low back pain, we will plan to start with x-ray imaging to further assess these fractures. He does deny any recent injuries. He is nonambulatory. His LSO brace is present with him in the room but he states it is not fitting appropriately. We did discuss we will review his x-ray imaging and will discuss a plan of care following those results. We discussed we may plan for further imaging or further bracing depending on those results. We also discussed he may not need any bracing at all proceeding forward. Patient feels this is a good plan of care. 2. Patient will continue be seen examined by medicine for his other medical diagnoses including shortness of breath with dyspnea on exertion Time with Patient: Greater than 30 (Including obtaining history, physical examination, reviewing of imaging, and dictation.)
[2020-02-15] MEDS: AZITHROMYCIN 500 MG TAB PO SCH (12:37)
--- NOTE | 2020-02-15 13:57 | XR ---
EXAMINATION TYPE: XR thoracic spine 2V DATE OF EXAM: 02/15/2020 CLINICAL HISTORY: pain TECHNIQUE: Frontal, lateral, and swimmer's view of thoracic spine are obtained. COMPARISON: None. FINDINGS: Thoracic spine show satisfactory alignment without evidence of acute fracture or dislocatio n. Vertebral body heights are preserved. Moderate to severe multilevel degenerative disc space narro wing. Visualized ribs are unremarkable. IMPRESSION: No acute fracture or dislocation is seen in the thoracic spine. ICD 10 NO FRACTURE, INIT IAL EVALUATION
--- NOTE | 2020-02-15 13:59 | XR ---
EXAMINATION TYPE: XR lumbar spine 2 or 3V DATE OF EXAM: 02/15/2020 CLINICAL HISTORY: pain TECHNIQUE: Three views of the lumbar spine are submitted. COMPARISON: None. FINDINGS: Mild superior endplate loss of height involving T11-L4. Loss of height is of uncertain age and/or edwar ology. There appears to be diffuse bony osteopenia. Ssup-ec-xqooccat degenerative disc space narrowin g. Moderate facet joint arthropathy. IMPRESSION: Mild superior endplate loss of height involving T11-L4. Loss of height is of uncertain age and/or edwar ology.
--- NOTE | 2020-02-15 22:58 | P.HPIM ---
History of Present Illness H&P Date: 02/15/20 Chief Complaint: shortness of breath, back pain Fletcher Sanabria is a 74 yo M with PMH of COPD, rheumatoid arthritis on chronic steroids, lumbar compression fractures, LLE amputation, hx DVT who presented to the ED complaining of increased shortness of breath, cough over the past 4-5 days. He also reports his back pain has worsened and is unbearable, especially with movement and coughing. He denies fevers or chills. Pt states that he fell at home and sustained lumbar compression fractures a few months ago, was fitted with a LSO brace but his weight recently changed so has not been wearing it. In the ED, vitals and labs stable, lactic 2.8 and d-dimer 1.5. CTA chest performed which was negative. Review of Systems All systems: negative Constitutional: Denies chills, Denies fever Eyes: denies blurred vision, denies pain Ears, nose, mouth and throat: Denies headache, Denies sore throat Cardiovascular: Denies chest pain, Denies shortness of breath Respiratory: Reports cough, Reports dyspnea, Reports wheezing Gastrointestinal: Denies abdominal pain, Denies diarrhea, Denies nausea, Denies vomiting Musculoskeletal: Reports as per HPI, Reports fractures, Reports low back pain, Denies myalgias Integumentary: Denies pruritus, Denies rash Neurological: Denies numbness, Denies weakness Psychiatric: Denies anxiety, Denies depression Endocrine: Denies fatigue, Denies weight change Past Medical History Past Medical History: Coronary Artery Disease (CAD), COPD, Deep Vein Thrombosis (DVT), Hyperlipidemia, Pneumonia, Pulmonary Embolus (PE), Rheumatoid Arthritis (RA), Vascular Disorder Additional Past Medical History / Comment(s): History of pancreatitis, 2012 past medical record documents viral pericarditis but pt denies, gastritis, Fluid build up rt lung - previous chest tube - pt unsure what it is from, BOTTOM TEETH REMOVED 09-01-18, wounds in his right lower extremity, left jsgue-yci-cenw stump and left elbow History of Any Multi-Drug Resistant Organisms: MRSA Date of last positivie culture/infection: 11/23/18 MDRO Source:: KNEE Past Surgical History: Heart Catheterization With Stent, Joint Replacement, Orthopedic Surgery Additional Past Surgical History / Comment(s): Total L knee arthroplasty with a spacer in place, R total shoulder replaced, L ankle ORIF d/t fracture, EGD, left rotator cuff repair. 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 Date of Last Stent Placement:: 12/10/16 Past Psychological History: Anxiety, Depression Additional Psychological History / Comment(s): Patient was a smoker one to one and half packs per day for 40+ years and quit 2 years ago when he had cardiac stents done. He uses a synthetic marijuana at nighttime only for his arthritis to help him sleep. He denies any other street drug use, alcohol use. 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 He lives at home with his . Smoking Status: Former smoker Past Alcohol Use History: None Reported Additional Past Alcohol Use History / Comment(s): Patient was a smoker one to one and half packs per day for 40+ years and quit in 2016 when he had cardiac stents done. Past Drug Use History: None Reported - Past Family History Sister(s) Family Medical History: Cancer Additional Family Medical History / Comment(s): pt's father had ra, mother had 16 children was healthy most of her life age 93 from dementia. Mother Family Medical History: Dementia Additional Family Medical History / Comment(s): Mother from dementia at the age of 93 yrs. Father Family Medical History: Rheumatoid Arthritis (RA) Medications and Allergies Home Medications Medication Instructions Recorded Confirmed Type oxyCODONE-APAP 10-325MG [Percocet 1 tab PO QID PRN 01/19/19 02/14/20 History 10-325 mg] predniSONE 10 mg PO QID PRN 01/16/20 02/14/20 History Albuterol Inhaler [Ventolin Hfa 2 puff INHALATION RT-QID PRN 02/14/20 02/14/20 History Inhaler] Ferrous Sulfate [Feosol] 325 mg PO DAILY 02/14/20 02/14/20 History Fluticasone/Salmeterol 1 puff INHALATION RT-BID 02/14/20 02/14/20 History [Fluticasone-Salmeterol 232-14] Meclizine [Antivert] 25 mg PO BID PRN 02/14/20 02/14/20 History Rivaroxaban [Xarelto] 20 mg PO DAILY 02/14/20 02/14/20 History Allergies Allergy/AdvReac Type Severity Reaction Status Date / Time No Known Allergies Allergy Verified 02/14/20 12:52 Physical Exam Vitals: Vital Signs Temp Pulse Pulse Resp BP Pulse Ox 02/15/20 20:47 97 02/15/20 20:10 98.3 F 98 14 150/91 99 02/15/20 15:00 98.5 F 102 H 17 126/76 98 02/15/20 11:45 88 02/15/20 11:37 88 02/15/20 07:41 88 02/15/20 07:32 88 02/15/20 07:00 98.5 F 98 15 147/87 97 02/15/20 03:37 98.5 F 81 18 138/88 95 Intake and Output 02/15/20 02/15/20 02/15/20 06:59 14:59 22:59 Intake Total 1400 Output Total 875 Balance -875 1400 Intake: Intake, IV Titration 700 Amount Sodium Chloride 0.9% 1, 700 000 ml @ 100 mls/hr IV . Q10H [facility] Rx#:[id number] Oral 700 Output: Urine 875 Other: # Voids 2 General: well nourished, well developed, NAD. Vitals reviewed Eyes: PERRL, EOMI, conjunctiva normal HENT: normocephalic, mucus membranes moist Neck: supple, no JVD Lungs: normal respiratory effort, diminished air entry, exp wheezing CV: Regular rate and rhythm, no murmur. Peripheral pulse 1+ MSK: LLE amputation, RLE no edema. Painful to spinal torsion, flexion Abdomen: soft, nondistended, no organomegaly Lymph: no cervical or axillary LAD Skin: warm and dry. Neuro: A&Ox3, normal mood and affect Results CBC & Chem 7: 02/14/20 12:12 02/14/20 12:12 Labs: Abnormal Lab Results - Last 24 Hours (Table) 02/15/20 02/15/20 Range/Units 06:50 11:21 POC Glucose (mg/dL) 154 H 198 H (75-99) mg/dL Thrombosis Risk Factor Assmnt - Choose All That Apply Each Risk Factor Represents 2 Points: Age 61-74 years Each Risk Factor Represents 3 Points: History of DVT/PE Thrombosis Risk Factor Assessment Total Risk Factor Score: 5 Thrombosis Risk Factor Assessment Level: High Risk Assessment and Plan (1) Lumbar compression fracture Current Visit: Yes Status: Acute Code(s): S32.000A - WEDGE COMPRESSION FRACTURE OF UNSP LUMBAR VERTEBRA, INIT SNOMED Code(s): 006040403 (2) Above knee amputation of left lower extremity Current Visit: Yes Status: Acute Code(s): S78.112A - COMPLETE TRAUMATIC AMP AT LEVEL BETW LEFT HIP AND KNEE, INIT SNOMED Code(s): 505231427 (3) Acute exacerbation of chronic obstructive pulmonary disease Current Visit: Yes Status: Acute Code(s): J44.1 - CHRONIC OBSTRUCTIVE PULMONARY DISEASE W (ACUTE) EXACERBATION SNOMED Code(s): 186895873 (4) DDD (degenerative disc disease), lumbosacral Current Visit: Yes Status: Acute Code(s): M51.37 - OTHER INTERVERTEBRAL DISC DEGENERATION, LUMBOSACRAL REGION SNOMED Code(s): 16531744 (5) Rheumatoid arthritis Current Visit: Yes Status: Acute Code(s): M06.9 - RHEUMATOID ARTHRITIS, UNSPECIFIED SNOMED Code(s): 27834920 Plan: 1. COPD exacerbation. IV solumedrol, azithromycin, duonebs, symbicort 2. Lumbar compression fractures. Intractable back pain. Orthopedic consult. Likely exacerbated by chronic steroid use. Continue oxycodone and add MS contin, morphine for breakthrough. Consider outpatient bone density scan 3. Rheumatoid arthritis 4. Hx DVT. Continue xarelto
[2020-02-16] MEDS: methylPREDNISolone SOD SUCCI 125 MG/2 ML VIAL IV SCH (04:50)
[2020-02-16] MEDS: SODIUM CHLORIDE 0.9% 1,000 ML IV SCH ×3 (04:50→21:01)
[2020-02-16] MEDS: oxyCODONE-APAP 10-325MG 1 EACH TAB PO PRN ×3 (04:52→19:05)
[2020-02-16] MEDS: SYMBICORT 160-4.5 MCG INHALER INHALATION SCH ×2 (07:25→19:52)
[2020-02-16] MEDS: IPRATROPIUM-ALBUTEROL 3 ML NEB INHALATION PRN (07:25)
[2020-02-16] MEDS: RIVAROXABAN 20 MG TAB PO SCH (08:38)
[2020-02-16] MEDS: FERROUS SULFATE 325 MG TAB PO SCH (08:38)
[2020-02-16] MEDS: AZITHROMYCIN 500 MG TAB PO SCH (08:38)
[2020-02-16] MEDS: MORPHINE SULFATE ER 15 MG TABLET PO SCH ×2 (08:39→21:00)
--- NOTE | 2020-02-16 10:04 | P.PN ---
Progress Note - Text Progress Note Date: 02/16/20 Patient is seen and examined at bedside. I reviewed his imaging as well as the note from yesterday with Lit Walker. I'm in agreement note. The patient says that he is feeling a little bit better here in Hospital with medications. He still has pain when he tries to twist. The pain is mainly across his lower back. It does not radiate down his right leg record his stump on the left. He says he still is able to transfer as he usually does but it has has more pain in his lower back. He denies any new changes in bowel bladder function. On exam he is conversant and comfortable in the room. He is more comfortable laying on the right side when he tries to shift over towards his left side or sit up he has pain across his lower back. at his left lower extremity has above-knee dictation is able to move his hip adequately. His right lower extremity has good active and passive range of motion. His abdomen soft. His compartments are soft. X-rays of his thoracic and lumbar spine are reviewed. I tried to compare them to his old images as well. His x-rays of his thoracic and lumbar spine show compression deformities of T11- T12 L1 L2 L3 and L4. There is small amount of compression with approximately 10-15 of compression at each of these levels. This was essentially unchanged from prior imaging with there is some evidence of compression of prior CT scans. It is difficult to determine the chronicity of the compression deformities based on the x-rays. Assessment and plan Acute on chronic low back pain Multiple thoracic and lumbar compression fractures uncertain chronicity Multiple old thoracic and lumbar compression fractures Low back pain and myofascial strain Nonambulator with history of left above-knee agitation without new neurologic deficit The patient states that he is feeling more comfortable at this point. The brace does not fit him well and he is mainly in bed or in a chair and I don't think that the brace is necessary for him to continue to use. He can use it essentially on an as-needed basis for comfort when he sitting up. I explained that to him. I think it is okay for the patient to try to transfer on his own as he is able tolerate and as his pain allows. I don't think that he has a new neurologic compromise. It is difficult to say the chronicity of his fractures of his lumbar spine but I don't think that bracing offers him much benefit at this point given its lack of fit and his limited ambulation and mobility. I would like to see how he does with continued expectant management and conservative care. It is difficult to protect if he would be a candidate for any sort of surgical intervention be a kyphoplasty or effusion. I do not have any plans for surgical intervention at this point and I would like patient to try to mobilize for transfers to his wheelchair as he is able with therapy. He does seem to be having some spasm across his lower back particularly with motion and he may have some benefit with muscle relaxant. We will go ahead and order that for him. From an orthotic spine standpoint is okay for her to be discharged home when he is comfortable with his medications. I can follow-up on an outpatient basis in 2 weeks for recheck evaluationand repeat x-rays.
--- NOTE | 2020-02-16 11:12 | P.PN ---
Subjective Progress Note Date: 02/16/20 Fletcher Sanabria is a 74 yo M with PMH of COPD, rheumatoid arthritis on chronic steroids, lumbar compression fractures, LLE amputation, hx DVT who presented to the ED complaining of increased shortness of breath, cough over the past 4-5 days. He also reports his back pain has worsened and is unbearable, especially with movement and coughing. He denies fevers or chills. Pt states that he fell at home and sustained lumbar compression fractures a few months ago, was fitted with a LSO brace but his weight recently changed so has not been wearing it. In the ED, vitals and labs stable, lactic 2.8 and d-dimer 1.5. CTA chest performed which was negative. 02/16/2020 coughing/breathing better. Chronic lower back spasms, Pain better controlled. Reports Ill fitting brace. Evaluated by orthopedic surgery, re commendations noted with no surgical intervention recommended at this time, muscle relaxants initiated .Complains of arthritic pain especially in his hands. Discussed initiating Forteo in clinic. Blood sugars controlled. Objective - Vital Signs Vital signs: Vital Signs Temp 98.6 F 02/16/20 07:00 Pulse 80 02/16/20 07:34 Resp 16 02/16/20 07:00 BP 164/99 02/16/20 07:00 Pulse Ox 97 02/16/20 07:00 Intake & Output 02/15/20 02/16/20 02/16/20 18:59 06:59 18:59 Intake Total 1400 1100 100 Balance 1400 1100 100 Intake: Intake, IV Titration 700 1100 Amount Sodium Chloride 0.9% 1, 700 1100 000 ml @ 100 mls/hr IV . Q10H [facility] Rx#:[id number] Oral 700 100 Other: Voiding Method Urinal Urinal - Exam General: well nourished, well developed, NAD. Vitals reviewed Eyes: PERRL, EOMI, conjunctiva normal HENT: normocephalic, mucus membranes moist Neck: supple, no JVD Lungs: normal respiratory effort, bilateral bases diminished CV: Regular rate and rhythm, no murmur. Peripheral pulse 1+ MSK: LLE amputation, RLE no edema. Painful to spinal torsion, flexion Abdomen: soft, nondistended, no organomegaly Lymph: no cervical or axillary LAD Skin: warm and dry. Neuro: A&Ox3, normal mood and affect - Labs CBC & Chem 7: 02/14/20 12:12 02/14/20 12:12 Labs: Abnormal Lab Results - Last 24 Hours (Table) 02/15/20 Range/Units 11:21 POC Glucose (mg/dL) 198 H (75-99) mg/dL Assessment and Plan Assessment: 1) multiple thoracic and Lumbar compression fractures, T11-T12 L1 L2 L3 and L4, possibly exacerbated by chronic steroid use. Current Visit: Yes Status: Acute Code(s): S32.000A - WEDGE COMPRESSION FRACTURE OF UNSP LUMBAR VERTEBRA, INIT SNOMED Code(s): 706528418 (2) Above knee amputation of left lower extremity Current Visit: Yes Status: Acute Code(s): S78.112A - COMPLETE TRAUMATIC AMP AT LEVEL BETW LEFT HIP AND KNEE, INIT SNOMED Code(s): 558359679 (3) Acute exacerbation of chronic obstructive pulmonary disease Current Visit: Yes Status: Acute Code(s): J44.1 - CHRONIC OBSTRUCTIVE PULMONARY DISEASE W (ACUTE) EXACERBATION SNOMED Code(s): 255129359 (4) DDD (degenerative disc disease), lumbosacral Current Visit: Yes Status: Acute Code(s): M51.37 - OTHER INTERVERTEBRAL DISC DEGENERATION, LUMBOSACRAL REGION SNOMED Code(s): 09884722 (5) Rheumatoid arthritis Current Visit: Yes Status: Acute Code(s): M06.9 - RHEUMATOID ARTHRITIS, UNSPECIFIED SNOMED Code(s): 94043268 Plan: Continue on current medication regime ,monitoring and symptomatic treatment.Tapering of IV steroids initiated, with transition to oral starting in a.m. Forteo discussed, to be arranged an outpatient clinic with PCP. Anticoagulated on Xarelto. Muscle relaxants initiated as per orthopedic surgery. Discharge planning in progress for tomorrow, pending orthopedic clearance. The impression and plan of care has been dictated as directed. : I performed a history and examination of this patient, discussed the same with the dictator. I agree with the dictator's note ,documented as a scribe. Any additional findings or plans will be noted.
[2020-02-16 20:46] LABS: Glucose,Whole Blood 122 mg/dL (75-99)
[2020-02-16] MEDS ORDERED: methylPREDNISolone SOD SUCCI 40 MG/ML 1 ML VIAL IV SCH (21:00)
[2020-02-17 07:11] LABS: Glucose,Whole Blood 141 mg/dL (75-99)
[2020-02-17] MEDS: AZITHROMYCIN 500 MG TAB PO SCH (08:02)
[2020-02-17] MEDS: RIVAROXABAN 20 MG TAB PO SCH (08:02)
[2020-02-17] MEDS: MORPHINE SULFATE ER 15 MG TABLET PO SCH ×2 (08:02→21:04)
[2020-02-17] MEDS: FERROUS SULFATE 325 MG TAB PO SCH (08:03)
[2020-02-17] MEDS: predniSONE 20 MG TAB PO SCH (08:03)
[2020-02-17] MEDS: CYCLOBENZAPRINE 10 MG TAB PO PRN (09:17)
[2020-02-17] MEDS: oxyCODONE-APAP 10-325MG 1 EACH TAB PO PRN ×3 (09:17→23:26)
[2020-02-17] MEDS: GABAPENTIN 300 MG CAP PO SCH ×3 (10:13→21:04)
[2020-02-17] MEDS: SYMBICORT 160-4.5 MCG INHALER INHALATION SCH ×2 (11:28→19:05)
--- NOTE | 2020-02-17 11:58 | CONS ---
CONSULTATION PULMONARY/CRITICAL CARE CONSULTATION: DATE OF SERVICE: 02/17/2020 REASON FOR CONSULTATION: Back pain. A 74-year-old gentleman who was admitted back on February 13. He apparently came into the emergency room complaining of shortness of breath and back pain. The patient has a history of underlying COPD. The patient also has a previous history of pulmonary embolism. He is also status post left hzwqx-xgk-xdkp amputation for chronic leg wounds. For the last 4 or 5 days prior to his admission on the 02/13, he was complaining of back pain. The back pain was on the right side. It appeared to be reproducible. It felt like a cramp to him. It was sharp. The patient denies any trauma. Because of the pain and shortness of breath, the patient came to the hospital. When asking him further, it appears that the shortness of breath was rather related to the pain and that he could not take a deep breath because of the pain. He denies any fever or chills. Denies any cough or phlegm production. He does not feel like his COPD is currently active. The patient did have a chest x-ray. It was really unimpressive and did show some basilar atelectasis or infiltrate. The CT scan of the chest did not reveal any recurrent pulmonary embolism. It also shows some basilar atelectasis. Interestingly, when I palpate the area that he describes, the pain is exactly reproducible suggesting a musculoskeletal problem. Current home medications include Percocet, prednisone, albuterol, iron, salmeterol/Flovent, Antivert, and Xarelto. ALLERGIES: Denied. MEDICAL HISTORY: Reviewed. He has had CAD, COPD, DVT, hyperlipidemia, pneumonia, pulmonary embolism, rheumatoid arthritis, pancreatitis, viral pericarditis, previous chest tube placement, and lower extremity ulcers and wound, nonhealing, with a left nxqcl-dyw-phqr amputation. SURGICAL HISTORY: Includes catheterization of the heart with stent placement, total left knee arthroplasty with spacer, right total shoulder replacement, left ankle ORIF status post fracture, EGD, low left rotator cuff repair, right ankle surgery, thoracentesis, chest tube, right lung, and the left vkfwb-xfc-rxps amputation, which occurred in April 2019. SOCIAL HISTORY: Positive for current ongoing tobacco use. He denies any alcohol use or illicit drug use. FAMILY HISTORY: Positive for a sister with cancer. The patient's father apparently has a history of rheumatoid arthritis, and mother has a history of dementia. REVIEW OF SYSTEMS: CONSTITUTIONAL: Negative. NEUROLOGIC: Negative. HEENT: Negative. CARDIOVASCULAR: Negative. PULMONARY: Shortness of breath, only when he takes a deep breath, related to the back pain on the right posterior chest area. GI: Negative. : Negative. RHEUMATOLOGIC: Negative. IMMUNOLOGIC: Negative. ENDOCRINOLOGIC: Negative. DERMATOLOGIC: Negative. Current vital signs are reviewed. Temperature is 98.2, heart rate 80, respiratory rate 16, blood pressure 142/86, saturations on room air 97% to 99%. Patient appears in no acute distress. There is no audible wheezing, use of accessory muscles or conversational dyspnea. HEENT: Examination is grossly unremarkable. No supplemental oxygen. NECK: Supple. Full range of motion. No adenopathy. CARDIOVASCULAR: Examination reveals regular rhythm and rate. Heart rate 80 beats per minute. S1, S2 normal. LUNGS: Reveal clear breath sounds throughout. No wheezes, rhonchi, or crackles. ABDOMEN: Soft, bowel sounds are heard. EXTREMITIES: Intact. No cyanosis, clubbing, or edema. The patient does have a left AKA. SKIN: Without rash. NEUROLOGIC: Examination is brief but nonfocal. Palpation to the right posterior chest area, below the scapula, causes exactly the same type of pain the patient is complaining. It is precisely reproducible. No recent labs are reviewed. Microbiology is negative. Initial chest x-ray showed a possible area of opacity or infiltrate in the retrocardiac area. CT scan of the chest done with angiography shows no evidence of pulmonary embolism. Lumbar spine x-ray shows loss of height involving T11 through L4. Thoracic spine x- rays showed no acute fracture or dislocation. Medications are reviewed. ASSESSMENT: 1. Back pain, likely musculoskeletal in origin as the patient's pain is precisely reproducible. 2. Underlying chronic obstructive pulmonary disease, not active at this time. 3. Nothing to suggest pneumonia. 4. Recent pulmonary embolism, 2 months ago, with current CT angiogram negative for PE. 5. Status post left AKA. 6. Coronary artery disease. 7. History of DVT and pulmonary embolism. 8. Hyperlipidemia. 9. History of rheumatoid arthritis. 10.History of pancreatitis. 11.History of viral pericarditis. 12.Multiple other medical problems and comorbidities. PLAN: I do not believe the patient is having any active infection at this time. There is no evidence to suggest recurrent PE. I believe his pain is purely musculoskeletal. The shortness of breath only occurs when he takes a deep breath. The pain is reproducible on palpation. I would stop the corticosteroids and stop the antibiotics. No additional recommendations are made. MMODL / IJN: [id number] / MTDD
--- NOTE | 2020-02-17 12:33 | P.PN ---
Subjective Progress Note Date: 02/17/20 Fletcher Sanabria is a 74 yo M with PMH of COPD, rheumatoid arthritis on chronic steroids, lumbar compression fractures, LLE amputation, hx DVT who presented to the ED complaining of increased shortness of breath, cough over the past 4-5 days. He also reports his back pain has worsened and is unbearable, especially with movement and coughing. He denies fevers or chills. Pt states that he fell at home and sustained lumbar compression fractures a few months ago, was fitted with a LSO brace but his weight recently changed so has not been wearing it. In the ED, vitals and labs stable, lactic 2.8 and d-dimer 1.5. CTA chest performed which was negative. 02/16/2020 coughing/breathing better. Chronic lower back spasms, Pain better controlled. Reports Ill fitting brace. Evaluated by orthopedic surgery, re commendations noted with no surgical intervention recommended at this time, muscle relaxants initiated .Complains of arthritic pain especially in his hands. Discussed initiating Forteo in clinic. Blood sugars controlled. 02/17/2020 complains of worsening right posterior "lung pain in 2 spots ", r eports into areas beyond posterior right shoulder blade. Reports does not worsen with deep breath. Not improved by current steroid regimen, so doubt inflammation of lung tissue. States pain has been present for about a month but worsened last night. Reports applying pressure by laying on the right side actually helps in decreasing the pain. Reports morphine/Percocet does not control it. Muscle relaxant initiated yesterday as per orthopedic surgery patient reports lower back spasming back about the same. Denies chest pain. Afebrile, T-max 99.2. Maintaining O2 sats in the high 90s on room air. Objective - Vital Signs Vital signs: Vital Signs Temp 98.2 F 02/17/20 07:40 Pulse 80 02/17/20 08:04 Resp 16 02/17/20 08:04 BP 147/89 02/17/20 07:40 Pulse Ox 99 02/17/20 07:40 Intake & Output 02/16/20 02/17/20 02/17/20 18:59 06:59 18:59 Intake Total 1100 300 0 Output Total 400 Balance 1100 -100 0 Intake: Intake, IV Titration 700 300 Amount Sodium Chloride 0.9% 1, 700 300 000 ml @ 100 mls/hr IV . Q10H [facility] Rx#:[id number] Oral 400 0 Output: Urine 400 Other: Voiding Method Urinal Urinal Urinal # Voids 2 - Exam General: Sitting up in bed, no acute distress Eyes: PERRL, EOMI, conjunctiva normal HENT: normocephalic, mucus membranes moist Neck: supple, no JVD Lungs: normal respiratory effort, bilateral bases diminished, no rhonchi, crackles or wheezes CV: Regular rate and rhythm, no murmur. Peripheral pulse 1+ MSK: LLE amputation, RLE no edema. Painful to spinal torsion, flexion Abdomen: soft, nondistended, no organomegaly Lymph: no cervical or axillary LAD Skin: warm and dry. Neuro: A&Ox3, normal mood and affect - Labs CBC & Chem 7: 02/14/20 12:12 02/14/20 12:12 Labs: Abnormal Lab Results - Last 24 Hours (Table) 02/16/20 02/17/20 Range/Units 20:44 07:09 POC Glucose (mg/dL) 122 H 141 H (75-99) mg/dL Assessment and Plan Assessment: 1) multiple thoracic and Lumbar compression fractures, T11-T12 L1 L2 L3 and L4, possibly exacerbated by chronic steroid use. Current Visit: Yes Status: Acute Code(s): S32.000A - WEDGE COMPRESSION FRACTURE OF UNSP LUMBAR VERTEBRA, INIT SNOMED Code(s): 545580539 (2) Above knee amputation of left lower extremity Current Visit: Yes Status: Acute Code(s): S78.112A - COMPLETE TRAUMATIC AMP AT LEVEL BETW LEFT HIP AND KNEE, INIT SNOMED Code(s): 582257711 (3) Acute exacerbation of chronic obstructive pulmonary disease Current Visit: Yes Status: Acute Code(s): J44.1 - CHRONIC OBSTRUCTIVE PULMONARY DISEASE W (ACUTE) EXACERBATION SNOMED Code(s): 116087925 (4) DDD (degenerative disc disease), lumbosacral Current Visit: Yes Status: Acute Code(s): M51.37 - OTHER INTERVERTEBRAL DISC DEGENERATION, LUMBOSACRAL REGION SNOMED Code(s): 68973476 (5) Rheumatoid arthritis Current Visit: Yes Status: Acute Code(s): M06.9 - RHEUMATOID ARTHRITIS, U NSPECIFIED SNOMED Code(s): 01129070 Plan: Continue on current medication regime ,monitoring and symptomatic treatment. Pulmonary consulted regarding worsening" lung pain ".Anticoagulated on Xarelto. Continues on Muscle relaxants initiated as per orthopedic surgery. Pulmonary consulted regarding Discharge planning in progress for subacute rehab on Friday. The impression and plan of care has been dictated as directed. : I performed a history and examination of this patient, discussed the same with the dictator. I agree with the dictator's note ,documented as a scribe. Any additional findings or plans will be noted.
[2020-02-17] MEDS: INSULIN ASPART (NovoLOG) 100 UNIT/ML VIAL SQ SCH ×3 (13:27→21:04)
[2020-02-17 17:06] LABS: Glucose,Whole Blood 145 mg/dL (75-99)
[2020-02-17] MEDS: SODIUM CHLORIDE 0.9% 1,000 ML IV SCH ×2 (18:48→21:04)
[2020-02-17 20:44] LABS: Glucose,Whole Blood 171 mg/dL (75-99)
[2020-02-18] MEDS: oxyCODONE-APAP 10-325MG 1 EACH TAB PO PRN ×3 (06:26→18:01)
[2020-02-18 07:00] LABS: Glucose,Whole Blood 161 mg/dL (75-99)
[2020-02-18] MEDS: SYMBICORT 160-4.5 MCG INHALER INHALATION SCH ×2 (08:11→19:15)
[2020-02-18] MEDS: MORPHINE SULFATE ER 15 MG TABLET PO SCH ×2 (08:25→21:35)
[2020-02-18] MEDS: FERROUS SULFATE 325 MG TAB PO SCH (08:26)
[2020-02-18] MEDS: GABAPENTIN 300 MG CAP PO SCH ×3 (08:26→21:36)
[2020-02-18] MEDS: predniSONE 20 MG TAB PO SCH (08:27)
[2020-02-18] MEDS: AZITHROMYCIN 500 MG TAB PO SCH (08:27)
[2020-02-18] MEDS: INSULIN ASPART (NovoLOG) 100 UNIT/ML VIAL SQ SCH ×4 (08:27→21:36)
[2020-02-18] MEDS: RIVAROXABAN 20 MG TAB PO SCH (08:27)
--- NOTE | 2020-02-18 10:55 | P.PN ---
Subjective Progress Note Date: 02/18/20 Fletcher Sanabria is a 74 yo M with PMH of COPD, rheumatoid arthritis on chronic steroids, lumbar compression fractures, LLE amputation, hx DVT who presented to the ED complaining of increased shortness of breath, cough over the past 4-5 days. He also reports his back pain has worsened and is unbearable, especially with movement and coughing. He denies fevers or chills. Pt states that he fell at home and sustained lumbar compression fractures a few months ago, was fitted with a LSO brace but his weight recently changed so has not been wearing it. In the ED, vitals and labs stable, lactic 2.8 and d-dimer 1.5. CTA chest performed which was negative. 02/16/2020 coughing/breathing better. Chronic lower back spasms, Pain better controlled. Reports Ill fitting brace. Evaluated by orthopedic surgery, re commendations noted with no surgical intervention recommended at this time, muscle relaxants initiated .Complains of arthritic pain especially in his hands. Discussed initiating Forteo in clinic. Blood sugars controlled. 02/17/2020 complains of worsening right posterior "lung pain in 2 spots ", r eports into areas beyond posterior right shoulder blade. Reports does not worsen with deep breath. Not improved by current steroid regimen, so doubt inflammation of lung tissue. States pain has been present for about a month but worsened last night. Reports applying pressure by laying on the right side actually helps in decreasing the pain. Reports morphine/Percocet does not control it. Muscle relaxant initiated yesterday as per orthopedic surgery patient reports lower back spasming back about the same. Denies chest pain. Afebrile, T-max 99.2. Maintaining O2 sats in the high 90s on room air. 02/18/2020 no overnight events."Lung Pain" currently controlled, recently medicated with MS Contin. Evaluated by pulmonary yesterday with recommendations noted and appreciated; attributed patient's symptoms to possibly muscle skeletal with no further workup recommended at this time. Vital signs stable, maintaining O2 sats in the high 90s on room air. Discharge planning in progress for tomorrow. Objective - Vital Signs Vital signs: Vital Signs Temp 98.1 F 02/18/20 07:55 Pulse 98 02/18/20 07:55 Resp 16 05/08/20 07:55 BP 131/89 02/18/20 07:55 Pulse Ox 96 02/18/20 07:55 Intake & Output 02/17/20 02/18/20 02/18/20 18:59 06:59 18:59 Intake Total 850 300 110 Output Total 225 Balance 850 300 -115 Intake: Intake, IV Titration 700 300 Amount Sodium Chloride 0.9% 1, 700 300 000 ml @ 100 mls/hr IV . Q10H [facility] Rx#:[id number] Oral 150 110 Output: Urine 225 Other: Voiding Method Urinal Urinal # Voids 2 - Exam General: Sitting up in bed, no acute distress Eyes: PERRL, EOMI, conjunctiva normal HENT: normocephalic, mucus membranes moist Neck: supple, no JVD Lungs: normal respiratory effort, bilateral bases diminished. CV: Regular rate and rhythm, no murmur. Peripheral pulse 1+ MSK: LLE amputation, RLE no edema. Painful to spinal torsion, flexion Abdomen: soft, nondistended, no organomegal Skin: warm and dry. Neuro: A&Ox3, normal mood and affect - Labs CBC & Chem 7: 02/14/20 12:12 02/14/20 12:12 Labs: Abnormal Lab Results - Last 24 Hours (Table) 02/17/20 02/17/20 02/18/20 Range/Units 17:04 20:42 06:58 POC Glucose (mg/dL) 145 H 171 H 161 H (75-99) mg/dL Assessment and Plan Assessment: 1) multiple thoracic and Lumbar compression fractures, T11-T12 L1 L2 L3 and L4, possibly exacerbated by chronic steroid use. Current Visit: Yes Status: Acute Code(s): S32.000A - WEDGE COMPRESSION FRACTURE OF UNSP LUMBAR VERTEBRA, INIT SNOMED Code(s): 496765877 (2) Above knee amputation of left lower extremity Current Visit: Yes Status: Acute Code(s): S78.112A - COMPLETE TRAUMATIC AMP AT LEVEL BETW LEFT HIP AND KNEE, INIT SNOMED Code(s): 696771617 (3) Acute exacerbation of chronic obstructive pulmonary disease Current Visit: Yes Status: Acute Code(s): J44.1 - CHRONIC OBSTRUCTIVE PULMONARY DISEASE W (ACUTE) EXACERBATION SNOMED Code(s): 133265749 (4) DDD (degenerative disc disease), lumbosacral Current Visit: Yes Status: Acute Code(s): M51.37 - OTHER INTERVERTEBRAL DISC DEGENERATION, LUMBOSACRAL REGION SNOMED Code(s): 26034118 (5) Rheumatoid arthritis Current Visit: Yes Status: Acute Code(s): M06.9 - RHEUMATOID ARTHRITIS, UNSPECIFIED SNOMED Code(s): 26977837 Plan: Continue on current medication regime ,monitoring and symptomatic t reatment. Discharge planning discussed with director of social work, in progress for [facility] subacute rehab tomorrow/Friday.( tonight being 3rd night IP hospital stay). Pain management. The impression and plan of care has been dictated as directed. : I performed a history and examination of this patient, discussed the same with the dictator. I agree with the dictator's note ,documented as a scribe. Any additional findings or plans will be noted.
[2020-02-18 11:56] LABS: Glucose,Whole Blood 148 mg/dL (75-99)
--- NOTE | 2020-02-18 13:15 | P.PN ---
Subjective Progress Note Date: 02/18/20 Principal diagnosis: Severe back pain On 02/18/2020 patient seen in follow-up on general medical floor, he is awake and alert, in no acute distress, vital signs are stable, he is up in a chair right now, he is on 2 L of oxygen and the pulse ox of 96%, afebrile. Seems to be much more comfortable today, still has complaints of pain near the right side of the posterior spine which is worse with moving, but seems to be much better on today's exam, no worsening dyspnea, lung sounds reveal some scattered end expiratory wheezing, but for the most part his breathing is stable, no cough or congestion. He does complain of exertional dyspnea. Is receiving breathing treatments, she is on oral prednisone, CTA chest did not show evidence of pulmonary embolism, and he just showed compressive atelectasis and tiny pleural effusions. Objective - Vital Signs Vital signs: Vital Signs Temp 98.1 F 02/18/20 07:55 Pulse 98 02/18/20 07:55 Resp 16 02/18/20 07:55 BP 131/89 02/18/20 07:55 Pulse Ox 96 02/18/20 07:55 Intake & Output 02/17/20 02/18/20 02/18/20 18:59 06:59 18:59 Intake Total 850 300 110 Output Total 225 Balance 850 300 -115 Intake: Intake, IV Titration 700 300 Amount Sodium Chloride 0.9% 1, 700 300 000 ml @ 100 mls/hr IV . Q10H [facility] Rx#:[id number] Oral 150 110 Output: Urine 225 Other: Voiding Method Urinal Urinal Urinal # Voids 2 - Exam GENERAL EXAM: Alert, very pleasant, 74-year-old male liters of oxygen the pulse ox 96%, sitting up in the recliner comfortable in no apparent distress. HEAD: Normocephalic/atraumatic. EYES: Normal reaction of pupils, equal size. Conjunctiva pink, sclera white. NOSE: Clear with pink turbinates. THROAT: No erythema or exudates. NECK: No masses, no JVD, no thyroid enlargement, no adenopathy. CHEST: No chest wall deformity. Symmetrical expansion. LUNGS: Equal air entry with a few scattered end expiratory wheezes CVS: Regular rate and rhythm, normal S1 and S2, no gallops, no murmurs, no rubs ABDOMEN: Soft, nontender. No hepatosplenomegaly, normal bowel sounds, no guarding or rigidity. EXTREMITIES: No clubbing, no edema, no cyanosis, 2+ pulses and upper and right lower extremity. Patient is left lower extremity amputee MUSCULOSKELETAL: Muscle strength and tone normal. Left lower extremity amputee SPINE: No scoliosis or deformity SKIN: No rashes CENTRAL NERVOUS SYSTEM: Alert and oriented -3. No focal deficits, tone is normal in all 4 extremities. PSYCHIATRIC: Alert and oriented -3. Appropriate affect. Intact judgment and insight. - Labs CBC & Chem 7: 02/14/20 12:12 02/14/20 12:12 Labs: Abnormal Lab Results - Last 24 Hours (Table) 02/17/20 02/17/20 02/18/20 Range/Units 17:04 20:42 06:58 POC Glucose (mg/dL) 145 H 171 H 161 H (75-99) mg/dL 02/18/20 Range/Units 11:54 POC Glucose (mg/dL) 148 H (75-99) mg/dL Assessment and Plan Plan: Assessment: #1. Severe back pain, most likely musculoskeletal in origin as the patient's pain is percent sleep reproducible #2. Underlying chronic obstructive pulmonary disease not significantly inactive at this time #3. CTA chest was negative for any pulmonary embolism, showed bibasilar compressive atelectasis and tiny pleural effusions #4. Recent history of pulmonary embolism, 2 months ago, on chronic anticoagulation with several toe #5. Status post left [id number] amputation #6. Coronary artery disease #7. Hyperlipidemia #8. History of rheumatoid arthritis #9. History of pancreatitis #10. History of viral pericarditis #11. Multiple medical problems and comorbidities Plan: Continue oral anticoagulation, continue oral prednisone, breathing treatments, patient seems to be feeling better today, his pain seems to be under better controlled, mild wheezing on today's exam, patient is ready and oral prednisone, we'll continue to follow I performed a history & physical examination of the patient and discussed their management with my nurse practitioner, Yoselin Wiggins. I reviewed the nurse practitioner's note and agree with the documented findings and plan of care. Lung sounds are positive for diffuse wheezes throughout the lung bass. The findings and the impression was discussed with the patient. I attest to the documentation by the nurse practitioner. Time with Patient: Less than 30
[2020-02-18] MEDS: SODIUM CHLORIDE 0.9% 1,000 ML IV SCH ×2 (16:08→21:39)
[2020-02-18 17:17] LABS: Glucose,Whole Blood 123 mg/dL (75-99)
[2020-02-18] MEDS: CYCLOBENZAPRINE 10 MG TAB PO PRN (20:42)
[2020-02-18 21:00] LABS: Glucose,Whole Blood 235 mg/dL (75-99)
[2020-02-19] MEDS: oxyCODONE-APAP 10-325MG 1 EACH TAB PO PRN ×2 (03:31→09:34)
[2020-02-19] MEDS: SODIUM CHLORIDE 0.9% 1,000 ML IV SCH ×2 (06:10→12:13)
[2020-02-19 07:18] LABS: Glucose,Whole Blood 258 mg/dL (75-99)
[2020-02-19] MEDS: INSULIN ASPART (NovoLOG) 100 UNIT/ML VIAL SQ SCH ×4 (07:56→21:20)
[2020-02-19] MEDS: SYMBICORT 160-4.5 MCG INHALER INHALATION SCH ×2 (08:15→20:22)
[2020-02-19] MEDS: AZITHROMYCIN 500 MG TAB PO SCH (08:17)
[2020-02-19] MEDS: FERROUS SULFATE 325 MG TAB PO SCH (08:17)
[2020-02-19] MEDS: GABAPENTIN 300 MG CAP PO SCH ×3 (08:17→21:16)
[2020-02-19] MEDS: predniSONE 20 MG TAB PO SCH (08:17)
[2020-02-19] MEDS: RIVAROXABAN 20 MG TAB PO SCH (08:17)
[2020-02-19] MEDS: MORPHINE SULFATE ER 15 MG TABLET PO SCH ×2 (08:18→21:16)
[2020-02-19] MEDS: CYCLOBENZAPRINE 10 MG TAB PO PRN (10:11)
[2020-02-19 11:58] LABS: Glucose,Whole Blood 148 mg/dL (75-99)
--- NOTE | 2020-02-19 12:19 | P.PN ---
Subjective Progress Note Date: 02/19/20 Principal diagnosis: Severe back pain On 02/18/2020 patient seen in follow-up on general medical floor, he is awake and alert, in no acute distress, vital signs are stable, he is up in a chair right now, he is on 2 L of oxygen and the pulse ox of 96%, afebrile. Seems to be much more comfortable today, still has complaints of pain near the right side of the posterior spine which is worse with moving, but seems to be much better on today's exam, no worsening dyspnea, lung sounds reveal some scattered end expiratory wheezing, but for the most part his breathing is stable, no cough or congestion. He does complain of exertional dyspnea. Is receiving breathing treatments, she is on oral prednisone, CTA chest did not show evidence of pulmonary embolism, and he just showed compressive atelectasis and tiny pleural effusions. The patient is seen today 02/19/2020 in follow-up on the regular medical floor. He is currently resting in bed. Awake and alert in no acute distress. No worsening shortness of breath, cough or congestion. Still has some complaints of dyspnea on exertion. He is been reluctant to get out of bed today according to staff. He is maintaining O2 saturations in the upper 90s on room air. He is afebrile. Hemodynamically stable. Objective - Vital Signs Vital signs: Vital Signs Temp 98.3 F 02/19/20 07:24 Pulse 109 H 02/18/20 19:55 Resp 16 02/19/20 07:24 BP 124/78 02/19/20 07:24 Pulse Ox 98 02/19/20 07:24 Intake & Output 02/18/20 02/19/20 02/19/20 18:59 06:59 18:59 Intake Total 330 450 236 Output Total 225 Balance 105 450 236 Intake: Oral 330 450 236 Output: Urine 225 Other: Voiding Method Urinal Urinal Urinal # Voids 0 2 # Bowel Movements 1 - Exam GENERAL EXAM: Alert, very pleasant, 74-year-old male on room air, comfortable in no apparent distress. HEAD: Normocephalic/atraumatic. EYES: Normal reaction of pupils, equal size. Conjunctiva pink, sclera white. NOSE: Clear with pink turbinates. THROAT: No erythema or exudates. NECK: No masses, no JVD, no thyroid enlargement, no adenopathy. CHEST: No chest wall deformity. Symmetrical expansion. LUNGS: Equal air entry with a few scattered end expiratory wheezes CVS: Regular rate and rhythm, normal S1 and S2, no gallops, no murmurs, no rubs ABDOMEN: Soft, nontender. No hepatosplenomegaly, normal bowel sounds, no guarding or rigidity. EXTREMITIES: No clubbing, no edema, no cyanosis, 2+ pulses and upper and right lower extremity. Patient is left lower extremity amputee MUSCULOSKELETAL: Muscle strength and tone normal. Left lower extremity amputee SPINE: No scoliosis or deformity SKIN: No rashes CENTRAL NERVOUS SYSTEM: No focal deficits, tone is normal in all 4 extremities. PSYCHIATRIC: Alert and oriented -3. Appropriate affect. Intact judgment and insight. - Labs CBC & Chem 7: 02/14/20 12:12 02/14/20 12:12 Labs: Abnormal Lab Results - Last 24 Hours (Table) 02/18/20 02/18/20 02/19/20 Range/Units 17:15 20:58 07:16 POC Glucose (mg/dL) 123 H 235 H 258 H (75-99) mg/dL 02/19/20 Range/Units 11:57 POC Glucose (mg/dL) 148 H (75-99) mg/dL Assessment and Plan Assessment: #1. Severe back pain, most likely musculoskeletal in origin as the patient's pain is percent sleep reproducible #2. Underlying chronic obstructive pulmonary disease not significantly inactive at this time #3. CTA chest was negative for any pulmonary embolism, showed bibasilar compressive atelectasis and tiny pleural effusions #4. Recent history of pulmonary embolism, 2 months ago, on chronic anticoagulation with several toe #5. Status post left [id number] amputation #6. Coronary artery disease #7. Hyperlipidemia #8. History of rheumatoid arthritis #9. History of pancreatitis #10. History of viral pericarditis #11. Multiple medical problems and comorbidities Plan: The patient was seen and evaluated by Dr. Tesfaye He is stable from the pulmonary standpoint Discharge planning is in place I, the cosigning physician, performed a history & physical examination of the patient. Lungs sounds with faint end expiratory wheeze, diminished. Maintaining good O2 saturations in the 90s on room air. I discussed the assessment and plan of care with my nurse practitioner, Yvette Palacios. I attest to the above note as dictated by her.
--- NOTE | 2020-02-19 16:02 | CT ---
EXAMINATION TYPE: CT brain wo con DATE OF EXAM: 02/19/2020 COMPARISON: 01/21/2019 HISTORY: New onset confusion CT DLP: 1076.[address] of the brain was performed. The ventricles, basal cisterns and sulci overlying the cerebral convexities demonstrate mild enlargem ent. There is no evidence for intracranial hemorrhage or sulcal effacement. There is decreased attenuation about the periventricular white matter and deep white matter of both c erebral hemispheres, compatible with chronic small vessel ischemia. Differential diagnosis does inclu de demyelination. No mass effects are seen.No midline shift. Osseous calvarium is intact. If symptoms persist consider MRI. IMPRESSION: 1. Age related atrophic and chronic small vessel ischemic change without acute intracranial process s een at this time.
[2020-02-19 16:56] LABS: Glucose,Whole Blood 302 mg/dL (75-99)
[2020-02-19 21:03] LABS: Glucose,Whole Blood 98 mg/dL (75-99)
[2020-02-20] MEDS: SODIUM CHLORIDE 0.9% 1,000 ML IV SCH ×3 (04:17→21:57)
[2020-02-20 07:12] LABS: Glucose,Whole Blood 247 mg/dL (75-99)
[2020-02-20] MEDS: INSULIN ASPART (NovoLOG) 100 UNIT/ML VIAL SQ SCH ×4 (07:39→21:56)
[2020-02-20] MEDS: CYCLOBENZAPRINE 10 MG TAB PO PRN (07:39)
[2020-02-20] MEDS: AZITHROMYCIN 500 MG TAB PO SCH (08:42)
[2020-02-20] MEDS: FERROUS SULFATE 325 MG TAB PO SCH (08:42)
[2020-02-20] MEDS: MORPHINE SULFATE ER 15 MG TABLET PO SCH ×2 (08:42→21:55)
[2020-02-20] MEDS: predniSONE 20 MG TAB PO SCH (08:42)
[2020-02-20] MEDS: GABAPENTIN 300 MG CAP PO SCH ×3 (08:42→21:55)
[2020-02-20] MEDS: RIVAROXABAN 20 MG TAB PO SCH (08:43)
[2020-02-20 08:51] LABS: ALT 25 U/L (4-49); AST 18 U/L (17-59); African American GFR (CKD) >90 (>60 ml/min/1.73 sqM); Albumin 2.5 g/dL (3.5-5.0); Alkaline Phosphatase 113 U/L (38-126); Anion Gap 5 mmol/L; Blood Urea Nitrogen 9 mg/dL (9-20); Calcium 7.9 mg/dL (8.4-10.2); Carbon Dioxide 25 mmol/L (22-30); Chloride 104 mmol/L (98-107); Glucose 87 mg/dL (74-99); Non-African American GFR(CKD) >90 (>60 ml/min/1.73 sqM); Potassium 3.4 mmol/L (3.5-5.1); Sodium 134 mmol/L (137-145); Total Bilirubin 0.4 mg/dL (0.2-1.3)
[2020-02-20 08:54] LABS: Anisocytosis Slight; Basophils % (A) 0 %; Eosinophils # (A) 0.1 k/uL (0-0.7); Eosinophils % (A) 1 %; HCT 29.3 % (39.0-53.0); Hypochromasia Moderate; Lymphocytes # (A) 3.3 k/uL (1.0-4.8); Lymphocytes % (A) 27 %; MCH 25.1 pg (25.0-35.0); MCHC 29.8 g/dL (31.0-37.0); MCV 84.2 fL (80.0-100.0); Mean Platelet Volume 7.8; Monocytes # (A) 0.4 k/uL (0-1.0); Monocytes % (A) 3 %; Neutrophils # (A) 8.3 k/uL (1.3-7.7); Neutrophils % (A) 68 %; Platelet Count 437 k/uL (150-450); Poikilocytosis Slight; RBC 3.48 m/uL (4.30-5.90); RDW 19.1 % (11.5-15.5); WBC 12.3 k/uL (3.8-10.6)
[2020-02-20 08:56] LABS: HGB 8.7 gm/dL (13.0-17.5)
[2020-02-20] MEDS: SYMBICORT 160-4.5 MCG INHALER INHALATION SCH ×2 (09:04→20:29)
[2020-02-20] MEDS: oxyCODONE-APAP 10-325MG 1 EACH TAB PO PRN ×2 (09:58→17:15)
--- NOTE | 2020-02-20 11:51 | P.PN ---
Subjective Progress Note Date: 02/20/20 Principal diagnosis: Severe back pain On 02/18/2020 patient seen in follow-up on general medical floor, he is awake and alert, in no acute distress, vital signs are stable, he is up in a chair right now, he is on 2 L of oxygen and the pulse ox of 96%, afebrile. Seems to be much more comfortable today, still has complaints of pain near the right side of the posterior spine which is worse with moving, but seems to be much better on today's exam, no worsening dyspnea, lung sounds reveal some scattered end expiratory wheezing, but for the most part his breathing is stable, no cough or congestion. He does complain of exertional dyspnea. Is receiving breathing treatments, she is on oral prednisone, CTA chest did not show evidence of pulmonary embolism, and he just showed compressive atelectasis and tiny pleural effusions. The patient is seen today 02/19/2020 in follow-up on the regular medical floor. He is currently resting in bed. Awake and alert in no acute distress. No worsening shortness of breath, cough or congestion. Still has some complaints of dyspnea on exertion. He is been reluctant to get out of bed today according to staff. He is maintaining O2 saturations in the upper 90s on room air. He is afebrile. Hemodynamically stable. The patient is seen today 02/20/2020 in follow-up on the regular medical floor. He is currently resting comfortably in bed. No worsening shortness of breath, cough or congestion. He is maintaining O2 saturation in the upper 90s on room air. He's been afebrile. White count 12.3. Hemoglobin 8.7. Creatinine 0.46. He has been maintained on DuoNeb inhalations, Symbicort, prednisone. Empiric antibiotics in the form of azithromycin. Anticoagulated with Xarelto. Objective - Vital Signs Vital signs: Vital Signs Temp 97.6 F 02/20/20 07:00 Pulse 103 H 02/20/20 07:00 Resp 20 02/20/20 07:00 BP 125/75 02/20/20 07:00 Pulse Ox 98 02/20/20 07:00 Intake & Output 02/19/20 02/20/20 02/20/20 18:59 06:59 18:59 Intake Total 1136 Output Total 250 Balance 1136 -250 Intake: Intake, IV Titration 500 Amount Sodium Chloride 0.9% 1, 500 000 ml @ 100 mls/hr IV . Q10H [facility] Rx#:[id number] Oral 636 Output: Urine 250 Other: Voiding Method Urinal Urinal Urinal # Voids 1 - Exam GENERAL EXAM: Alert, very pleasant, 74-year-old male patient, on room air, comfortable in no apparent distress. HEAD: Normocephalic/atraumatic. EYES: Normal reaction of pupils, equal size. Conjunctiva pink, sclera white. NOSE: Clear with pink turbinates. THROAT: No erythema or exudates. NECK: No masses, no JVD, no thyroid enlargement, no adenopathy. CHEST: No chest wall deformity. Symmetrical expansion. LUNGS: Equal air entry no wheeze, rhonchi or crackles. Diminished. CVS: Regular rate and rhythm, normal S1 and S2, no gallops, no murmurs, no rubs ABDOMEN: Soft, nontender. No hepatosplenomegaly, normal bowel sounds, no g uarding or rigidity. EXTREMITIES: No clubbing, no edema, no cyanosis, 2+ pulses and upper and right lower extremity. Patient is left lower extremity amputee MUSCULOSKELETAL: Muscle strength and tone normal. Left lower extremity amputee SPINE: No scoliosis or deformity SKIN: No rashes CENTRAL NERVOUS SYSTEM: No focal deficits, tone is normal in all 4 extremities. PSYCHIATRIC: Alert and oriented -3. Appropriate affect. Intact judgment and insight. - Labs CBC & Chem 7: 02/20/20 07:46 02/20/20 07:46 Labs: Abnormal Lab Results - Last 24 Hours (Table) 02/19/20 02/19/20 02/20/20 Range/Units 11:57 16:51 07:10 WBC (3.8-10.6) k/uL RBC (4.30-5.90) m/uL Hgb (13.0-17.5) gm/dL Hct (39.0-53.0) % MCHC (31.0-37.0) g/dL RDW (11.5-15.5) % Neutrophils # (1.3-7.7) k/uL Sodium (137-145) mmol/L Potassium (3.5-5.1) mmol/L Creatinine (0.66-1.25) mg/dL POC Glucose (mg/dL) 148 H 302 H 247 H (75-99) mg/dL Calcium (8.4-10.2) mg/dL Total Protein (6.3-8.2) g/dL Albumin (3.5-5.0) g/dL 02/20/20 02/20/20 Range/Units 07:46 07:46 WBC 12.3 H (3.8-10.6) k/uL RBC 3.48 L (4.30-5.90) m/uL Hgb 8.7 L D (13.0-17.5) gm/dL Hct 29.3 L (39.0-53.0) % MCHC 29.8 L (31.0-37.0) g/dL RDW 19.1 H (11.5-15.5) % Neutrophils # 8.3 H (1.3-7.7) k/uL Sodium 134 L (137-145) mmol/L Potassium 3.4 L (3.5-5.1) mmol/L Creatinine 0.46 L (0.66-1.25) mg/dL POC Glucose (mg/dL) (75-99) mg/dL Calcium 7.9 L (8.4-10.2) mg/dL Total Protein 5.0 L (6.3-8.2) g/dL Albumin 2.5 L (3.5-5.0) g/dL Assessment and Plan Assessment: #1. Severe back pain, most likely musculoskeletal in origin as the patient's pain is percent sleep reproducible #2. Underlying chronic obstructive pulmonary disease not significantly inactive at this time #3. CTA chest was negative for any pulmonary embolism, showed bibasilar compressive atelectasis and tiny pleural effusions #4. Recent history of pulmonary embolism, 2 months ago, on chronic anticoag ulation with several toe #5. Status post left [id number] amputation #6. Coronary artery disease #7. Hyperlipidemia #8. History of rheumatoid arthritis #9. History of pancreatitis #10. History of viral pericarditis #11. Multiple medical problems and comorbidities Plan: The patient was seen and evaluated by Dr. Tesfaye Labs reviewed Remains on room air He is stable from the pulmonary standpoint Discharge planning is in place I, the cosigning physician, performed a history & physical examination of the patient. Lungs sounds clear, diminished. Maintaining good O2 saturations in the 90s on room air. I discussed the assessment and plan of care with my nurse practitioner, Yvette Palacios. I attest to the above note as dictated by her.
[2020-02-20 11:53] LABS: Glucose,Whole Blood 105 mg/dL (75-99)
--- NOTE | 2020-02-20 14:51 | P.PN ---
Subjective Progress Note Date: 02/19/20 Principal diagnosis: COPD exacerbation, intractable low back pain. Covering for Dr. Steven over the weekend Mr. Sanabria is a 74-year-old male with a past medical history of coronary artery disease, COPD, DVT, hypertension, hyperlipidemia, PE, rheumatoid arthritis, recent lumbar compression fracture, left lower extremity amputation coming in with a chief complaint of shortness of breath and intractable low back pain. Patient fell at home and sustained lumbar fracture few months ago and he was fitted with a LSO brace. In the emergency patient had elevated d-dimer of 1.[address] angina of the chest was performed which was negative for PE. Orthopedics evaluated him and recommended that no surgical intervention is needed at this time and suggested muscle relaxants which were started. Pulmonary services have been following the patient. On 02/19/2020 - as the patient was getting ready for discharge by the facility, the nurse said she was a bit confused. His family members spoke to him and they also mentioned that the patient was not talking as himself. When I went into the room patient stated that he was doing okay except for the pain. He could tell me the reason was his back pain and his breathing that brought him to the hospital and he is at [facility]. Patient has been moving all his extremities, no slurring of speech or loss weakness. Patient has been complaining of pain in his left ear and also complaining of dizziness. He states that when he lies down he does not feel dizzy but when he sits up he feels dizzy, and he states this has been going on for many months. Patient denied having any headaches or visual changes. On reviewing the patient's vitals his temperature was 97.8, blood pressure 105-66 saturating at 94% on room air. Patient did not have any new labs since admission. Patient's medications have been reviewed and he has been getting Flexeril and morphine and Percocet for his acute on chronic low back pain. Objective - Vital Signs Vital signs: Vital Signs Temp 98.3 F 02/19/20 15:00 Pulse 110 H 02/19/20 15:00 Resp 18 02/19/20 15:00 BP 106/65 02/19/20 15:00 Pulse Ox 96 02/19/20 15:00 Intake & Output 02/18/20 02/19/20 02/19/20 18:59 06:59 18:59 Intake Total 620 176 2465 Output Total 225 Balance 724 021 4011 Intake: Intake, IV Titration 500 Amount Sodium Chloride 0.9% 1, 500 000 ml @ 100 mls/hr IV . Q10H [facility] Rx#:[id number] Oral 330 450 636 Output: Urine 225 Other: Voiding Method Urinal Urinal Urinal # Voids 0 2 # Bowel Movements 1 - Exam PHYSICAL EXAM General: Sitting up in bed, no acute distress Eyes: PERRL, EOMI, conjunctiva normal HENT: normocephalic, mucus membranes moist Examination of the ears with otoscope: Right ear canal- cerumen seen, tympanic membrane normal with cone of light Left ear exam - white deposits seen on the inside of the tympanic membrane, cerumen in the ear canal. Maureen-Hallpike maneuver- positive on the left side Neck: supple, no JVD Lungs: normal respiratory effort, bilateral bases diminished. CV: Regular rate and rhythm, no murmur. Peripheral pulse 1+ MSK: LLE amputation, RLE no edema. Painful to spinal torsion, flexion Abdomen: soft, nondistended, no organomegal Skin: warm and dry. Neuro: A&Ox3, normal mood and affect - Labs CBC & Chem 7: 02/20/20 07:46 02/20/20 07:46 Labs: Abnormal Lab Results - Last 24 Hours (Table) 02/18/20 02/18/20 02/19/20 Range/Units 17:15 20:58 07:16 POC Glucose (mg/dL) 123 H 235 H 258 H (75-99) mg/dL 02/19/20 Range/Units 11:57 POC Glucose (mg/dL) 148 H (75-99) mg/dL Assessment and Plan Assessment: ASSESSMENT Intractable low back pain Confusion COPD Recent history of PE on chronic anticoagulation Coronary artery disease status post stenting Hyperlipidemia Rheumatoid arthritis Multiple joint osteoarthritis Left lower extremity [id number] amputation History of pancreatitis History of pericarditis PLAN: As the patient has confusion and dizziness which is new, the discharge was held. On examination of the year he has white deposits and side of the tympanic membrane on the left ear. ENT has been consulted. The confusion could be multifactorial as he was recently started on muscle relaxant and has been getting Percocet as well as morphine and gabapentin for pain. We will also get a CAT scan of the head. Continue with the rest of his current medication regim en. Further recommendations to follow depending on the progress the patient.
--- NOTE | 2020-02-20 14:58 | P.PN ---
Subjective Progress Note Date: 02/20/20 Principal diagnosis: COPD exacerbation, intractable low back pain. Stevens for Dr. Steven over the weekend Mr. Sanabria is a 74-year-old male with a past medical history of coronary artery disease, COPD, DVT, hypertension, hyperlipidemia, PE, rheumatoid arthritis, recent lumbar compression fracture, left lower extremity amputation coming in with a chief complaint of shortness of breath and intractable low back pain. Patient fell at home and sustained lumbar fracture few months ago and he was fitted with a LSO brace. In the emergency patient had elevated d-dimer of 1.[address] angina of the chest was performed which was negative for PE. Orthopedics evaluated him and recommended that no surgical intervention is needed at this time and suggested muscle relaxants which were started. Pulmonary services have been following the patient. On 02/19/2020 - as the patient was getting ready for discharge by the facility, the nurse said she was a bit confused. His family members spoke to him and they also mentioned that the patient was not talking as himself. When I went into the room patient stated that he was doing okay except for the pain. He could tell me the reason was his back pain and his breathing that brought him to the hospital and he is at [facility]. Patient has been moving all his extremities, no slurring of speech or loss weakness. Patient has been complaining of pain in his left ear and also complaining of dizziness. He states that when he lies down he does not feel dizzy but when he sits up he feels dizzy, and he states this has been going on for many months. Patient denied having any headaches or visual changes. On reviewing the patient's vitals his temperature was 97.8, blood pressure 105-66 saturating at 94% on room air. Patient did not have any new labs since admission. Patient's medications have been reviewed and he has been getting Flexeril and morphine and Percocet for his acute on chronic low back pain. On 02/20/2020 - no acute events reported by nursing staff overnight. Patient is resting comfortably in his bed and he is asleep. The nurse mentioned that patient has been getting pain medications and when he gets them he Snapped out totally and when he wakes up he complains of pain that is 10 out of 10. Patient denies having any more dizziness and his mentation is back to his normal. Patient denies having any chest pain or palpitations. He still states that his breathing is not back to his baseline. No abdominal pain nausea vomiting or diarrhea. Patient had a CAT scan of the head yesterday that was showing age- related atrophic changes no acute intracranial process. On reviewing the patient's labs blood pressure has been running 123 by EP, saturating at 94% on room air with T-max of 98.6. On reviewing the labs white count of 12.3 hemoglobin 8.7, potassium 3.4 creatinine 0.46 his albumin is low at 2.5. Active Medications Albuterol/Ipratropium (Duoneb 0.5 Mg-3 Mg/3 Ml Soln) 3 ml INHALATION RT-Q4H PRN PRN Reason: Shortness Of Breath Or Wheezing Last Admin: 02/16/20 07:25 Dose: 3 ml Documented by: Azithromycin (Zithromax) 500 mg PO DAILY [facility] Last Admin: 02/20/20 08:42 Dose: 500 mg Documented by: Budesonide/Formoterol Fumarate (Symbicort 160-4.5 Mcg Inhaler) 2 puff INHALATION RT-BID [facility] Last Admin: 02/20/20 09:04 Dose: 2 puff Documented by: Cyclobenzaprine HCl (Flexeril) 10 mg PO BID PRN PRN Reason: Muscle Spasm Last Admin: 02/20/20 07:39 Dose: 10 mg Documented by: Ferrous Sulfate (Feosol) 325 mg PO DAILY [facility] Last Admin: 02/20/20 08:42 Dose: 325 mg Documented by: Gabapentin (Neurontin) 300 mg PO TID [facility] Last Admin: 02/20/20 08:42 Dose: 300 mg Documented by: Sodium Chloride (Saline 0.9%) 1,000 mls @ 100 mls/hr IV .Q10H [facility] Last Admin: 02/20/20 11:00 Dose: Not Given Documented by: Insulin Aspart (Novolog) 0 unit SQ ACHS [facility]; Protocol Last Admin: 02/20/20 11:58 Dose: Not Given Documented by: Meclizine HCl (Antivert) 25 mg PO BID PRN PRN Reason: Vertigo Last Admin: 02/15/20 11:24 Dose: 25 mg Documented by: Morphine Sulfate (Ms Contin) 15 mg PO Q12HR [facility] Last Admin: 02/20/20 08:42 Dose: 15 mg Documented by: Oxycodone/Acetaminophen (Percocet 10-325) 1 each PO QID PRN PRN Reason: Pain Last Admin: 02/20/20 09:58 Dose: 1 each Documented by: Prednisone () 40 mg PO DAILY [facility] Last Admin: 02/20/20 08:42 Dose: 40 mg Documented by: Rivaroxaban (Xarelto) 20 mg PO DAILY [facility] Last Admin: 02/20/20 08:43 Dose: 20 mg Documented by: Objective - Vital Signs Vital signs: Vital Signs Temp 97.6 F 02/20/20 07:00 Pulse 103 H 02/20/20 07:00 Resp 20 02/20/20 07:00 BP 125/75 02/20/20 07:00 Pulse Ox 98 02/20/20 07:00 Intake & Output 02/19/20 02/20/20 02/20/20 18:59 06:59 18:59 Intake Total 1136 Output Total 250 500 Balance 1136 -250 -500 Intake: Intake, IV Titration 500 Amount Sodium Chloride 0.9% 1, 500 000 ml @ 100 mls/hr IV . Q10H [facility] Rx#:[id number] Oral 636 Output: Urine 250 500 Other: Voiding Method Urinal Urinal Urinal # Voids 1 - Exam PHYSICAL EXAM General: Sitting up in bed, no acute distress Eyes: PERRL, EOMI, conjunctiva normal HENT: normocephalic, mucus membranes moist Neck: supple, no JVD Lungs: normal respiratory effort, bilateral bases diminished. CV: Regular rate and rhythm, no murmur. Peripheral pulse 1+ MSK: LLE amputation, RLE no edema. Painful to spinal torsion, flexion Abdomen: soft, nondistended, no organomegal Skin: warm and dry. Neuro: A&Ox3, normal mood and affect - Labs CBC & Chem 7: 02/20/20 07:46 02/20/20 07:46 Labs: Abnormal Lab Results - Last 24 Hours (Table) 02/19/20 02/20/20 02/20/20 Range/Units 16:51 07:10 07:46 WBC 12.3 H (3.8-10.6) k/uL RBC 3.48 L (4.30-5.90) m/uL Hgb 8.7 L D (13.0-17.5) gm/dL Hct 29.3 L (39.0-53.0) % MCHC 29.8 L (31.0-37.0) g/dL RDW 19.1 H (11.5-15.5) % Neutrophils # 8.3 H (1.3-7.7) k/uL Sodium (137-145) mmol/L Potassium (3.5-5.1) mmol/L Creatinine (0.66-1.25) mg/dL POC Glucose (mg/dL) 302 H 247 H (75-99) mg/dL Calcium (8.4-10.2) mg/dL Total Protein (6.3-8.2) g/dL Albumin (3.5-5.0) g/dL 02/20/20 02/20/20 Range/Units 07:46 11:48 WBC (3.8-10.6) k/uL RBC (4.30-5.90) m/uL Hgb (13.0-17.5) gm/dL Hct (39.0-53.0) % MCHC (31.0-37.0) g/dL RDW (11.5-15.5) % Neutrophils # (1.3-7.7) k/uL Sodium 134 L (137-145) mmol/L Potassium 3.4 L (3.5-5.1) mmol/L Creatinine 0.46 L (0.66-1.25) mg/dL POC Glucose (mg/dL) 105 H (75-99) mg/dL Calcium 7.9 L (8.4-10.2) mg/dL Total Protein 5.0 L (6.3-8.2) g/dL Albumin 2.5 L (3.5-5.0) g/dL Assessment and Plan Assessment: ASSESSMENT Intractable low back pain Confusion COPD Recent history of PE on chronic anticoagulation Coronary artery disease status post stenting Hyperlipidemia Rheumatoid arthritis Multiple joint osteoarthritis Left lower extremity [id number] amputation History of pancreatitis History of pericarditis Moderate protein calorie malnutrition PLAN: Patient had a CAT scan of the head yesterday showing age-related atrophic changes and no acute intracranial process reported. Patient mentation is back to normal, he denies having any dizziness. Patient has multiple medications that can affect his mentation, he is on Flexeril, Neurontin, MS Contin, Percocet. Continue on prednisone and breathing treatments. Continue with Rivaroxban for anticoagulation. Continue with the rest of his medication regimen.
[2020-02-20 16:34] LABS: Glucose,Whole Blood 290 mg/dL (75-99)
[2020-02-20 20:20] LABS: Glucose,Whole Blood 180 mg/dL (75-99)
[2020-02-21] MEDS: oxyCODONE-APAP 10-325MG 1 EACH TAB PO PRN ×2 (01:27→11:48)
[2020-02-21 07:26] LABS: Glucose,Whole Blood 126 mg/dL (75-99)
[2020-02-21 07:40] VITALS: BP 137/81; PULSE 91; RESP 20; TEMP 97.9
[2020-02-21] MEDS: GABAPENTIN 300 MG CAP PO SCH (08:05)
[2020-02-21] MEDS: RIVAROXABAN 20 MG TAB PO SCH (08:05)
[2020-02-21] MEDS: MORPHINE SULFATE ER 15 MG TABLET PO SCH (08:05)
[2020-02-21] MEDS: predniSONE 20 MG TAB PO SCH (08:05)
[2020-02-21] MEDS: AZITHROMYCIN 500 MG TAB PO SCH (08:05)
[2020-02-21] MEDS: FERROUS SULFATE 325 MG TAB PO SCH (08:05)
[2020-02-21] MEDS: INSULIN ASPART (NovoLOG) 100 UNIT/ML VIAL SQ SCH ×2 (08:06→11:49)
[2020-02-21] MEDS: SYMBICORT 160-4.5 MCG INHALER INHALATION SCH (08:26)
[2020-02-21] MEDS ORDERED: Potassium Replacement Protocol 1 EACH MISC MISCELLANE PRN (10:30)
[2020-02-21 11:17] LABS: Anisocytosis Slight; HCT 29.2 % (39.0-53.0); HGB 8.7 gm/dL (13.0-17.5); Hypochromasia Moderate; MCH 25.4 pg (25.0-35.0); MCHC 29.9 g/dL (31.0-37.0); MCV 84.7 fL (80.0-100.0); Mean Platelet Volume 7.9; Platelet Count 513 k/uL (150-450); Poikilocytosis Slight; RBC 3.45 m/uL (4.30-5.90); RDW 18.7 % (11.5-15.5); WBC 12.6 k/uL (3.8-10.6)
[2020-02-21 11:23] LABS: African American GFR (CKD) >90 (>60 ml/min/1.73 sqM); Anion Gap 5 mmol/L; Blood Urea Nitrogen 13 mg/dL (9-20); Calcium 8.1 mg/dL (8.4-10.2); Carbon Dioxide 27 mmol/L (22-30); Chloride 105 mmol/L (98-107); Glucose 126 mg/dL (74-99); Non-African American GFR(CKD) >90 (>60 ml/min/1.73 sqM); Potassium 3.7 mmol/L (3.5-5.1); Sodium 137 mmol/L (137-145)
[2020-02-21 11:26] LABS: Glucose,Whole Blood 327 mg/dL (75-99)
--- NOTE | 2020-02-21 11:26 | P.DS ---
Providers Date of admission: 02/16/20 08:58 Expected date of discharge: 02/21/20 Attending physician: Clarence Steven MD Consults: 02/14/20 15:40 Consult Physician Routine Consulting Provider: Antoine Steele Consult Reason/Comments: Intractable back pain Do you want consulting provider notified?: Yes 02/17/20 09:20 Consult Physician Routine Consulting Provider: Julio Cesar Tesfaye Consult Reason/Comments: Right lung pain, hx recent PE Do you want consulting provider notified?: Yes 02/19/20 15:27 Consult Physician Routine Consulting Provider: Paul Rock Consult Reason/Comments: Left ear pain, white substance noted on tympanic membrane Do you want consulting provider notified?: Yes Primary care physician: Ruthy Montemayor Hospital Course: Final Diagnoses: 1) multiple thoracic and Lumbar compression fractures, T11-T12 L1 L2 L3 and L4, possibly exacerbated by chronic steroid use. Current Visit: Yes Status: Acute Code(s): S32.000A - WEDGE COMPRESSION FRACTURE OF UNSP LUMBAR VERTEBRA, INIT SNOMED Code(s): 807669596 (2) Above knee amputation of left lower extremity Current Visit: Yes Status: Acute Code(s): S78.112A - COMPLETE TRAUMATIC AMP AT LEVEL BETW LEFT HIP AND KNEE, INIT SNOMED Code(s): 117510103 (3) Acute exacerbation of chronic obstructive pulmonary disease Current Visit: Yes Status: Acute Code(s): J44.1 - CHRONIC OBSTRUCTIVE PULMONARY DISEASE W (ACUTE) EXACERBATION SNOMED Code(s): 418039434 (4) DDD (degenerative disc disease), lumbosacral Current Visit: Yes Status: Acute Code(s): M51.37 - OTHER INTERVERTEBRAL DISC DEGENERATION, LUMBOSACRAL REGION SNOMED Code(s): 38500824 (5) Rheumatoid arthritis Current Visit: Yes Status: Acute Code(s): M06.9 - RHEUMATOID ARTHRITIS, UNSPECIFIED SNOMED Code(s): 02127485 Hospital course:Fletcher Sanabria is a 74 yo M with PMH of COPD, rheumatoid arthritis on chronic steroids, lumbar compression fractures, LLE amputation, hx DVT who presented to the ED complaining of increased shortness of breath, cough over the past 4-5 days. He also reports his back pain has worsened and is unbearable, especially with movement and coughing. He denies fevers or chills. Pt states that he fell at home and sustained lumbar compression fractures a few months ago, was fitted with a LSO brace but his weight recently changed so has not been wearing it. In the ED, vitals and labs stable, lactic 2.8 and d-dimer 1.5. CTA chest performed which was negative. 02/16/2020 coughing/breathing better. Chronic lower back spasms, Pain better controlled. Reports Ill fitting brace. Evaluated by orthopedic surgery, recommendations noted with no surgical intervention recommended at this time, muscle relaxants initiated .Complains of arthritic pain especially in his hands. Discussed initiating Forteo in clinic. Blood sugars controlled. 02/17/2020 complains of worsening right posterior "lung pain in 2 spots ", reports into areas beyond posterior right shoulder blade. Reports does not worsen with deep breath. Not improved by current steroid regimen, so doubt inflammation of lung tissue. States pain has been present for about a month but worsened last night. Reports applying pressure by laying on the right side actually helps in decreasing the pain. Reports morphine/Percocet does not control it. Muscle relaxant initiated yesterday as per orthopedic surgery patient reports lower back spasming back about the same. Denies chest pain. Afebrile, T-max 99.2. Maintaining O2 sats in the high 90s on room air. 02/18/2020 no overnight events."Lung Pain" currently controlled, recently medica [facility] with [facility] Winnie. Evaluated by pulmonary yesterday with recommendations noted and appreciated; attributed patient's symptoms to possibly muscle skeletal with no further workup recommended at this time. Vital signs stable, maintaining O2 sats in the high 90s on room air. Discharge planning in progress for tomorrow. Significant clinical improvement. Cleared by all consults for discharge. Patient is being discharged to [facility] subacute rehab in a stable condition with guarded prognosis. The impression and plan of care has been dictated as directed. : I performed a history and examination of this patient, discussed the same with the dictator. I agree with the dictator's note ,documented as a scribe. Any additional findings or plans will be noted. Patient Condition at Discharge: Stable Plan - Discharge Summary Discharge Rx Participant: Yes New Discharge Prescriptions: New Cyclobenzaprine [Flexeril] 10 mg PO BID PRN #60 tab PRN Reason: Spasms Ipratropium-Albuterol Nebulize [Duoneb 0.5 mg-3 mg/3 ml Soln] 3 ml INHALATION QID ml INSULIN LISPRO (HumaLOG) [humaLOG] 0 unit SQ ACHS #1 vial Morphine Sulfate ER [Ms Contin] 15 mg PO Q12HR #6 tablet Gabapentin [Neurontin] 300 mg PO TID #9 cap predniSONE 10 mg PO DIRECTED #30 tab Continue Rivaroxaban [Xarelto] 20 mg PO DAILY Meclizine [Antivert] 25 mg PO BID PRN PRN Reason: Vertigo Ferrous Sulfate [Iron (65 MG Elemental)] 325 mg PO DAILY Albuterol Inhaler [Ventolin Hfa Inhaler] 2 puff INHALATION RT-QID PRN PRN Reason: Shortness Of Breath Fluticasone/Salmeterol [Fluticasone-Salmeterol 232-14] 1 puff INHALATION RT- BID oxyCODONE-APAP 10-325MG [Percocet 10-325 mg] 1 tab PO QID PRN #12 tab PRN Reason: Pain Discontinued predniSONE 10 mg PO QID PRN PRN Reason: rheumatoid arthritis PAIN Discharge Medication List Albuterol Inhaler [Ventolin Hfa Inhaler] 2 puff INHALATION RT-QID PRN 02/14/20 [History] Ferrous Sulfate [Iron (65 MG Elemental)] 325 mg PO DAILY 02/14/20 [History] Fluticasone/Salmeterol [Fluticasone-Salmeterol 232-14] 1 puff INHALATION RT-BID 02/14/20 [History] Meclizine [Antivert] 25 mg PO BID PRN 02/14/20 [History] Rivaroxaban [Xarelto] 20 mg PO DAILY 02/14/20 [History] Cyclobenzaprine [Flexeril] 10 mg PO BID PRN #60 tab 02/16/20 [Rx] Gabapentin [Neurontin] 300 mg PO TID #9 cap 02/21/20 [Rx] INSULIN LISPRO (HumaLOG) [humaLOG] 0 unit SQ ACHS #1 vial 02/21/20 [Rx] Ipratropium-Albuterol Nebulize [Duoneb 0.5 mg-3 mg/3 ml Soln] 3 ml INHALATION QID ml 02/21/20 [Rx] Morphine Sulfate ER [Ms Contin] 15 mg PO Q12HR #6 tablet 02/21/20 [Rx] oxyCODONE-APAP 10-325MG [Percocet 10-325 mg] 1 tab PO QID PRN #12 tab 02/21/20 [Rx] predniSONE 10 mg PO DIRECTED #30 tab 02/21/20 [Rx] Follow up Appointment(s)/Referral(s): Antoine Steele DO [Doctor of Osteopathic Medicine] - 2 Weeks [facility], [NON-STAFF] - Ruthy Montemayor DO [Primary Care Provider] - 1 Week (After DC from subacute rehab) Activity/Diet/Wound Care/Special Instructions: [facility] subacute rehab CBC, BMP in 3 days Forteo discussed, TO be arranged in OP clinic with PCP.
[2020-02-21] MEDS ORDERED: INSULIN ASPART (NovoLOG) 100 UNIT/ML VIAL SQ ONE (11:27)
--- NOTE | 2020-02-21 11:39 | P.PN ---
Subjective Progress Note Date: 02/21/20 Principal diagnosis: Severe back pain On 02/18/2020 patient seen in follow-up on general medical floor, he is awake and alert, in no acute distress, vital signs are stable, he is up in a chair right now, he is on 2 L of oxygen and the pulse ox of 96%, afebrile. Seems to be much more comfortable today, still has complaints of pain near the right side of the posterior spine which is worse with moving, but seems to be much better on today's exam, no worsening dyspnea, lung sounds reveal some scattered end expiratory wheezing, but for the most part his breathing is stable, no cough or congestion. He does complain of exertional dyspnea. Is receiving breathing treatments, she is on oral prednisone, CTA chest did not show evidence of pulmonary embolism, and he just showed compressive atelectasis and tiny pleural effusions. The patient is seen today 02/19/2020 in follow-up on the regular medical floor. He is currently resting in bed. Awake and alert in no acute distress. No worsening shortness of breath, cough or congestion. Still has some complaints of dyspnea on exertion. He is been reluctant to get out of bed today according to staff. He is maintaining O2 saturations in the upper 90s on room air. He is afebrile. Hemodynamically stable. The patient is seen today 02/20/2020 in follow-up on the regular medical floor. He is currently resting comfortably in bed. No worsening shortness of breath, cough or congestion. He is maintaining O2 saturation in the upper 90s on room air. He's been afebrile. White count 12.3. Hemoglobin 8.7. Creatinine 0.46. He has been maintained on DuoNeb inhalations, Symbicort, prednisone. Empiric antibiotics in the form of azithromycin. Anticoagulated with Xarelto. The patient is seen today 02/21/2020 in follow-up on the regular medical floor. He is awake and alert in no acute distress. Resting fairly comfortably in bed. Denies any shortness of breath, cough or congestion. No chills or night sweats. His main issue continues to be back pain. Fairly comfortable this morning. He is maintaining good O2 saturations in the 90s on room air. He is afebrile. Hemodynamically stable. White count 12.6. Hemoglobin 8.7. Creatinine 0.51. Objective - Vital Signs Vital signs: Vital Signs Temp 97.9 F 02/21/20 07:00 Pulse 91 02/21/20 08:06 Resp 20 02/21/20 08:06 BP 137/81 02/21/20 07:00 Pulse Ox 95 02/21/20 07:00 Intake & Output 02/20/20 02/21/20 02/21/20 18:59 06:59 18:59 Intake Total 200 Output Total 500 Balance -300 Intake: Oral 200 Output: Urine 500 Other: Voiding Method Urinal Urinal Urinal # Voids 1 # Bowel Movements 1 - Exam GENERAL EXAM: Alert, very pleasant, 74-year-old male patient, on room air, com fortable in no apparent distress. HEAD: Normocephalic/atraumatic. EYES: Normal reaction of pupils, equal size. Conjunctiva pink, sclera white. NOSE: Clear with pink turbinates. THROAT: No erythema or exudates. NECK: No masses, no JVD, no thyroid enlargement, no adenopathy. CHEST: No chest wall deformity. Symmetrical expansion. LUNGS: Equal air entry no wheeze, rhonchi or crackles. Diminished. CVS: Regular rate and rhythm, normal S1 and S2, no gallops, no murmurs, no rubs ABDOMEN: Soft, nontender. No hepatosplenomegaly, normal bowel sounds, no guarding or rigidity. EXTREMITIES: No clubbing, no edema, no cyanosis, 2+ pulses and upper and right lower extremity. Patient is left lower extremity amputee MUSCULOSKELETAL: Ongoing back discomfort. Muscle strength and tone normal. Left lower extremity amputee SPINE: No scoliosis or deformity SKIN: No rashes CENTRAL NERVOUS SYSTEM: No focal deficits, tone is normal in all 4 extremities. PSYCHIATRIC: Alert and oriented -3. Appropriate affect. Intact judgment and insight. - Labs CBC & Chem 7: 02/21/20 10:40 02/21/20 10:40 Labs: Abnormal Lab Results - Last 24 Hours (Table) 02/20/20 02/20/20 02/20/20 Range/Units 11:48 16:32 20:18 WBC (3.8-10.6) k/uL RBC (4.30-5.90) m/uL Hgb (13.0-17.5) gm/dL Hct (39.0-53.0) % MCHC (31.0-37.0) g/dL RDW (11.5-15.5) % Plt Count (150-450) k/uL Creatinine (0.66-1.25) mg/dL Glucose (74-99) mg/dL POC Glucose (mg/dL) 105 H 290 H 180 H (75-99) mg/dL Calcium (8.4-10.2) mg/dL 02/21/20 02/21/20 02/21/20 Range/Units 07:25 10:40 10:40 WBC 12.6 H (3.8-10.6) k/uL RBC 3.45 L (4.30-5.90) m/uL Hgb 8.7 L (13.0-17.5) gm/dL Hct 29.2 L (39.0-53.0) % MCHC 29.9 L (31.0-37.0) g/dL RDW 18.7 H (11.5-15.5) % Plt Count 513 H (150-450) k/uL Creatinine 0.51 L (0.66-1.25) mg/dL Glucose 126 H (74-99) mg/dL POC Glucose (mg/dL) 126 H (75-99) mg/dL Calcium 8.1 L (8.4-10.2) mg/dL 02/21/20 Range/Units 11:22 WBC (3.8-10.6) k/uL RBC (4.30-5.90) m/uL Hgb (13.0-17.5) gm/dL Hct (39.0-53.0) % MCHC (31.0-37.0) g/dL RDW (11.5-15.5) % Plt Count (150-450) k/uL Creatinine (0.66-1.25) mg/dL Glucose (74-99) mg/dL POC Glucose (mg/dL) 327 H (75-99) mg/dL Calcium (8.4-10.2) mg/dL Assessment and Plan Assessment: #1. Severe back pain, most likely musculoskeletal in origin as the patient's pain is percent sleep reproducible #2. Underlying chronic obstructive pulmonary disease not significantly inactive at this time #3. CTA chest was negative for any pulmonary embolism, showed bibasilar compressive atelectasis and tiny pleural effusions #4. Recent history of pulmonary embolism, 2 months ago, on chronic anticoagulation with several toe #5. Status post left [id number] amputation #6. Coronary artery disease #7. Hyperlipidemia #8. History of rheumatoid arthritis #9. History of pancreatitis #10. History of viral pericarditis #11. Multiple medical problems and comorbidities Plan: The patient was seen and evaluated by Dr. Manley Cleared for discharge from the pulmonary standpoint Follow-up in our office as scheduled. I, the cosigning physician, performed a history & physical examination of the patient. Lungs sounds clear, diminished. Maintaining good O2 saturations in the 90s on room air. I discussed the assessment and plan of care with my nurse practitioner, Yvette Palacios. I attest to the above note as dictated by her.
== END 2020-02-21 14:20 | disposition home or self-care (01) | DRG 543 ==
LOC: EC 11:34 → 4SSUR 16:01 → OBSVTOIN 02-16 08:58
PROVIDERS: ADMIT Family Medicine; ATTEND Family Medicine
DX: M48.54XA Collapsed vertebra, not elsewhere classified, thoracic region, initial encounter for fracture (principal); E44.0 Moderate protein-calorie malnutrition; E87.2 Acidosis; J44.1 Chronic obstructive pulmonary disease with (acute) exacerbation; J98.11 Atelectasis; M48.56XA Collapsed vertebra, not elsewhere classified, lumbar region, initial encounter for fracture; M51.37 Other intervertebral disc degeneration, lumbosacral region; M48.061 Spinal stenosis, lumbar region without neurogenic claudication; M43.16 Spondylolisthesis, lumbar region; Z68.26 Body mass index [BMI] 26.0-26.9, adult; E78.5 Hyperlipidemia, unspecified; F17.210 Nicotine dependence, cigarettes, uncomplicated; F32.9 Major depressive disorder, single episode, unspecified; F41.9 Anxiety disorder, unspecified; G89.29 Other chronic pain; I10 Essential (primary) hypertension; I25.119 Atherosclerotic heart disease of native coronary artery with unspecified angina pectoris; M06.9 Rheumatoid arthritis, unspecified; T38.0X5A Adverse effect of glucocorticoids and synthetic analogues, initial encounter; M15.9 Polyosteoarthritis, unspecified; Z86.711 Personal history of pulmonary embolism; Z79.01 Long term (current) use of anticoagulants; Z79.51 Long term (current) use of inhaled steroids; Z79.52 Long term (current) use of systemic steroids; Z11.59 Encounter for screening for other viral diseases; Z79.899 Other long term (current) drug therapy; Z80.9 Family history of malignant neoplasm, unspecified; Z86.718 Personal history of other venous thrombosis and embolism; Z89.612 Acquired absence of left leg above knee; Z95.5 Presence of coronary angioplasty implant and graft; Z96.611 Presence of right artificial shoulder joint; Z96.652 Presence of left artificial knee joint; Z82.61 Family history of arthritis; Z82.0 Family history of epilepsy and other diseases of the nervous system; Z87.01 Personal history of pneumonia (recurrent)
CPT/HCPCS: 36415; 70450; 71046; 71275; 72070; 72100; 80048; 80053; 82550; 83605; 83735; 83880; 84484; 85025; 85027; 85379; 85610; 85730; 87635; 93005; 94640; 96374; 96375; 96376; 99285

== ENCOUNTER 2020-03-22 14:50 | Emergency (ER) | payer MEDICARE ==
[2020-03-22 14:57] VITALS: RESP 20
[2020-03-22] MEDS ORDERED: PANTOPRAZOLE 40 MG/10 ML VIAL IVP STA (15:13)
--- NOTE | 2020-03-22 15:16 | ED ---
General Adult HPI - General Chief complaint: Recheck/Abnormal Lab/Rx Stated complaint: Anemia Time Seen by Provider: 03/22/20 15:01 Source: patient, family, RN notes reviewed Mode of arrival: ambulatory Limitations: physical limitation - History of Present Illness Initial comments: Patient is a pleasant 74-year-old male presenting to the emergency department with reported anemia. Patient had out patient blood work done a couple of weeks ago. Hemoglobin was previously 14 and this time it was 8. Patient was advised to come to the emergency department. No rectal bleeding. No black or tarry stools. Patient has been a little bit more fatigued over the past couple of weeks. Patient occasionally has brief episodes of cramping at different areas throughout his thorax. 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 - Related Data Home Medications Medication Instructions Recorded Confirmed Albuterol Inhaler [Ventolin Hfa 2 puff INHALATION RT-QID PRN 02/14/20 02/14/20 Inhaler] Ferrous Sulfate [Iron (65 MG 325 mg PO DAILY 02/14/20 02/14/20 Elemental)] Fluticasone/Salmeterol 1 puff INHALATION RT-BID 02/14/20 02/14/20 [Fluticasone-Salmeterol 232-14] Meclizine [Antivert] 25 mg PO BID PRN 02/14/20 02/14/20 Rivaroxaban [Xarelto] 20 mg PO DAILY 02/14/20 02/14/20 Previous Rx's Medication Instructions Recorded Cyclobenzaprine [Flexeril] 10 mg PO BID PRN #60 tab 02/16/20 Gabapentin [Neurontin] 300 mg PO TID #9 cap 02/21/20 INSULIN LISPRO (HumaLOG) [humaLOG] 0 unit SQ ACHS #1 vial 02/21/20 Ipratropium-Albuterol Nebulize 3 ml INHALATION QID ml 02/21/20 [Duoneb 0.5 mg-3 mg/3 ml Soln] Morphine Sulfate ER [Ms Contin] 15 mg PO Q12HR #6 tablet 02/21/20 oxyCODONE-APAP 10-325MG [Percocet 1 tab PO QID PRN #12 tab 02/21/20 10-325 mg] predniSONE 10 mg PO DIRECTED #30 tab 02/21/20 Allergies Allergy/AdvReac Type Severity Reaction Status Date / Time No Known Allergies Allergy Verified 03/22/20 14:57 Review of Systems ROS Statement: Those systems with pertinent positive or pertinent negative responses have been documented in the HPI. ROS Other: All systems not noted in ROS Statement are negative. Constitutional: Denies: fever Eyes: Denies: eye pain ENT: Denies: ear pain Respiratory: Denies: cough Cardiovascular: Denies: chest pain Endocrine: Reports: fatigue Gastrointestinal: Reports: as per HPI. Denies: vomiting, melena, hematochezia Genitourinary: Denies: dysuria Skin: Denies: rash Neurological: Denies: weakness Past Medical History Past Medical History: Coronary Artery Disease (CAD), COPD, Deep Vein Thrombosis (DVT), Hyperlipidemia, Pneumonia, Pulmonary Embolus (PE), Rheumatoid Arthritis (RA), Vascular Disorder Additional Past Medical History / Comment(s): History of pancreatitis, 2012 past medical record documents viral pericarditis but pt denies, gastritis, Fluid buil d up rt lung - previous chest tube - pt unsure what it is from, BOTTOM TEETH REMOVED 09-01-18, wounds in his right lower extremity, left [id number] stump and left elbow History of Any Multi-Drug Resistant Organisms: MRSA Date of last positivie culture/infection: 11/23/18 MDRO Source:: KNEE Past Surgical History: Heart Catheterization With Stent, Joint Replacement, Orthopedic Surgery Additional Past Surgical History / Comment(s): Total L knee arthroplasty with a spacer in place, R total shoulder replaced, L ankle ORIF d/t fracture, EGD, left rotator cuff repair. right ankle sx, thoracentesis, chest tube rt lung, LT above the knee amputation Past Anesthesia/Blood Transfusion Reactions: No Reported Reaction Additional Past Anesthesia/Blood Transfusion Reaction / Comment(s): Pt states he has never recieved blood. Date of Last Stent Placement:: 12/10/16 Past Psychological History: Anxiety, Depression Smoking Status: Current every day smoker Past Alcohol Use History: None Reported Past Drug Use History: Marijuana - Past Family History Sister(s) Family Medical History: Cancer Additional Family Medical History / Comment(s): pt's father had ra, mother had 16 children was healthy most of her life age 93 from dementia. Mother Family Medical History: Dementia Additional Family Medical History / Comment(s): Mother from dementia at the age of 93 yrs. Father Family Medical History: Rheumatoid Arthritis (RA) General Exam Limitations: physical limitation General appearance: alert, in no apparent distress Head exam: Present: normocephalic Eye exam: Present: normal appearance Neck exam: Present: normal inspection Respiratory exam: Present: normal lung sounds bilaterally Cardiovascular Exam: Present: regular rate, normal rhythm GI/Abdominal exam: Present: soft, normal bowel sounds. Absent: distended, tenderness, guarding, rebound, rigid, pulsatile mass Rectal exam: Present: normal inspection. Absent: black stool, bloody stool Extremities exam: Present: other (Left AKA) Neurological exam: Present: alert Psychiatric exam: Present: normal affect, normal mood Skin exam: Present: normal color Course Vital Signs 03/22/20 03/22/20 14:53 15:12 Temperature 97.8 F 98.7 F Pulse Rate 108 H 103 H Respiratory 20 20 Rate Blood Pressure 150/95 O2 Sat by Pulse 98 98 Oximetry Medical Decision Making - Medical Decision Making Patient reevaluated and resting comfortably in bed. Patient and family updated on results and plan. Patient and family are comfortable with discharge home. They're aware of need for follow-up and further testing. - Lab Data Result diagrams: 03/22/20 15:30 03/22/20 15:30 Lab Results 03/22/20 03/22/20 03/22/20 Range/Units 15:30 15:30 15:30 WBC 9.9 (3.8-10.6) k/uL RBC 4.17 L (4.30-5.90) m/uL Hgb 9.6 L (13.0-17.5) gm/dL Hct 32.7 L (39.0-53.0) % MCV 78.5 L D (80.0-100.0) fL MCH 23.0 L (25.0-35.0) pg MCHC 29.3 L (31.0-37.0) g/dL RDW 16.7 H (11.5-15.5) % Plt Count 654 H (150-450) k/uL Neutrophils % 87 % Lymphocytes % 10 % Monocytes % 3 % Eosinophils % 0 % Basophils % 0 % Neutrophils # 8.6 H (1.3-7.7) k/uL Lymphocytes # 1.0 (1.0-4.8) k/uL Monocytes # 0.3 (0-1.0) k/uL Eosinophils # 0.0 (0-0.7) k/uL Basophils # 0.0 (0-0.2) k/uL Hypochromasia Marked Poikilocytosis Moderate Anisocytosis Slight Microcytosis Slight PT 10.9 (9.0-12.0) sec INR 1.1 (<1.2) APTT 21.0 L (22.0-30.0) sec Sodium (137-145) mmol/L Potassium (3.5-5.1) mmol/L Chloride (98-107) mmol/L Carbon Dioxide (22-30) mmol/L Anion Gap mmol/L BUN (9-20) mg/dL Creatinine (0.66-1.25) mg/dL Est GFR (CKD-EPI)AfAm (>60 ml/min/1.73 sqM) Est GFR (CKD-EPI)NonAf (>60 ml/min/1.73 sqM) Glucose (74-99) mg/dL Calcium (8.4-10.2) mg/dL Total Bilirubin (0.2-1.3) mg/dL AST (17-59) U/L ALT (4-49) U/L Alkaline Phosphatase (38-126) U/L Total Protein (6.3-8.2) g/dL Albumin (3.5-5.0) g/dL Stool Occult Blood Negative (Negative) 03/22/20 Range/Units 15:30 WBC (3.8-10.6) k/uL RBC (4.30-5.90) m/uL Hgb (13.0-17.5) gm/dL Hct (39.0-53.0) % MCV (80.0-100.0) fL MCH (25.0-35.0) pg MCHC (31.0-37.0) g/dL RDW (11.5-15.5) % Plt Count (150-450) k/uL Neutrophils % % Lymphocytes % % Monocytes % % Eosinophils % % Basophils % % Neutrophils # (1.3-7.7) k/uL Lymphocytes # (1.0-4.8) k/uL Monocytes # (0-1.0) k/uL Eosinophils # (0-0.7) k/uL Basophils # (0-0.2) k/uL Hypochromasia Poikilocytosis Anisocytosis Microcytosis PT (9.0-12.0) sec INR (<1.2) APTT (22.0-30.0) sec Sodium 137 (137-145) mmol/L Potassium 4.4 (3.5-5.1) mmol/L Chloride 108 H (98-107) mmol/L Carbon Dioxide 20 L (22-30) mmol/L Anion Gap 9 mmol/L BUN 18 (9-20) mg/dL Creatinine 0.59 L (0.66-1.25) mg/dL Est GFR (CKD-EPI)AfAm >90 (>60 ml/min/1.73 sqM) Est GFR (CKD-EPI)NonAf >90 (>60 ml/min/1.73 sqM) Glucose 148 H (74-99) mg/dL Calcium 9.0 (8.4-10.2) mg/dL Total Bilirubin 0.2 (0.2-1.3) mg/dL AST 26 (17-59) U/L ALT 18 (4-49) U/L Alkaline Phosphatase 147 H (38-126) U/L Total Protein 6.4 (6.3-8.2) g/dL Albumin 3.5 (3.5-5.0) g/dL Stool Occult Blood (Negative) - Radiology Data Radiology results: image reviewed (Abdominal x-ray shows nonspecific abdomen. Air to large and small bowel and nonspecific pattern, correlate for ileus or enteritis.) Disposition Clinical Impression: Anemia Disposition: HOME SELF-CARE Condition: Stable Instructions (If sedation given, give patient instructions): Anemia (ED) Additional Instructions: Please follow-up with primary care physician in the next couple days for recheck. Return for bleeding, increased weakness, worsening or changing symptoms or other concerns. You'll need further testing that can be scheduled through primary care physician. Is patient prescribed a controlled substance at d/c from ED?: No Referrals: Ruthy Montemayor DO [Primary Care Provider] - 1-2 days Time of Disposition: 16:24
[2020-03-22 15:21] VITALS: TEMP 98.7
--- NOTE | 2020-03-22 15:49 | XR ---
EXAMINATION TYPE: XR abdomen 1V DATE OF EXAM: 03/22/2020 COMPARISON: 01/16/2020 HISTORY: Pain and cramping TECHNIQUE: One view abdominal series FINDINGS: The osseous structures are intact. The bowel gas pattern is nonspecific. Diffuse osteopenia with hyp ertrophic and degenerative change of the spine. Arthropathy of the hips. Calcifications the pelvis li jerome vascular. Subsegmental changes both lung bases. IMPRESSION: 1. Nonspecific abdomen. Air seen throughout large and small bowel loops in a nonspecific pattern. Co rrelate for ileus or enteritis.
[2020-03-22 15:53] LABS: Anisocytosis Slight; Basophils % (A) 0 %; Eosinophils % (A) 0 %; HCT 32.7 % (39.0-53.0); HGB 9.6 gm/dL (13.0-17.5); Hypochromasia Marked; Lymphocytes % (A) 10 %; MCHC 29.3 g/dL (31.0-37.0); Mean Platelet Volume 7.9; Microcytosis Slight; Monocytes # (A) 0.3 k/uL (0-1.0); Monocytes % (A) 3 %; Neutrophils # (A) 8.6 k/uL (1.3-7.7); Neutrophils % (A) 87 %; Platelet Count 654 k/uL (150-450); Poikilocytosis Moderate; RBC 4.17 m/uL (4.30-5.90); RDW 16.7 % (11.5-15.5); WBC 9.9 k/uL (3.8-10.6)
[2020-03-22 15:58] LABS: MCV 78.5 fL (80.0-100.0)
[2020-03-22 15:59] LABS: ALT 18 U/L (4-49); AST 26 U/L (17-59); African American GFR (CKD) >90 (>60 ml/min/1.73 sqM); Albumin 3.5 g/dL (3.5-5.0); Alkaline Phosphatase 147 U/L (38-126); Anion Gap 9 mmol/L; Blood Urea Nitrogen 18 mg/dL (9-20); Carbon Dioxide 20 mmol/L (22-30); Chloride 108 mmol/L (98-107); Glucose 148 mg/dL (74-99); Non-African American GFR(CKD) >90 (>60 ml/min/1.73 sqM); Potassium 4.4 mmol/L (3.5-5.1); Sodium 137 mmol/L (137-145); Total Bilirubin 0.2 mg/dL (0.2-1.3); Total Protein 6.4 g/dL (6.3-8.2)
[2020-03-22 16:02] LABS: INR 1.1 (<1.2); Prothrombin Time 10.9 sec (9.0-12.0)
[2020-03-22 17:07] VITALS: BP 136/67; PULSE 55
== END 2020-03-22 17:00 | disposition home or self-care (01) ==
LOC: EC 14:50
DX: D64.9 Anemia, unspecified (principal); I25.10 Atherosclerotic heart disease of native coronary artery without angina pectoris; J44.9 Chronic obstructive pulmonary disease, unspecified; F17.200 Nicotine dependence, unspecified, uncomplicated; Z79.51 Long term (current) use of inhaled steroids; Z79.01 Long term (current) use of anticoagulants; Z86.711 Personal history of pulmonary embolism; Z86.718 Personal history of other venous thrombosis and embolism; Z89.612 Acquired absence of left leg above knee; Z96.652 Presence of left artificial knee joint; Z96.611 Presence of right artificial shoulder joint; Z95.5 Presence of coronary angioplasty implant and graft
CPT/HCPCS: 36415; 80053; 85025; 85610; 85730; 82272; 74018; 99284; 96374; C9113

== ENCOUNTER → 2020-04-11 | Outpatient (CLI) | payer MEDICARE ==
--- NOTE | 2020-04-12 08:02 | CT ---
EXAMINATION TYPE: CT abdomen pelvis wo con DATE OF EXAM: 04/11/2020 COMPARISON: Prior CT 09/03/2019 HISTORY: Right side flank pain. CT DLP: 559.1 mGycm Automated exposure control for dose reduction was used. TECHNIQUE: Helical acquisition of images from the lung bases through the pelvis. FINDINGS: Coronary artery calcifications are present. Lack of intravenous contrast could compromise s ensitivity. LUNG BASES: No significant interval change is appreciated, there is pleural thickening posteriorly wi th interstitial changes, honeycombing and scarring, fibrosis and minimal calcification, mild bronchie ctasis and bronchial wall thickening. AORTA: Atheromatous changes are appreciated. LIVER/GB: Punctate calcification is again noted within the liver adjacent to the gallbladder, gallbla dder is unremarkable. Cystic focus within the left lobe of the liver measures 3.2 cm. PANCREAS: No significant abnormality is seen. SPLEEN: Multiple calcifications are again seen within the spleen. ADRENALS: No significant abnormality is seen. KIDNEYS: No significant abnormality is seen. REPRODUCTIVE ORGANS: Prostate shows a short axis measurement of 4.1 cm, there are associated calcifi cation. URINARY BLADDER: Thickened wall is noted, correlate for possible chronic bladder outlet obstruction or possible cystitis. BOWEL: No significant abnormality is seen. FREE AIR: No Free Air is visible. ASCITES: None visible. PELVIC ADENOPATHY: None visualized. RETROPERITONEAL ADENOPATHY: No Retroperitoneal Adenopathy visible. OSSEOUS STRUCTURES: Multiple lumbar and thoracic compression deformities have developed in the inter carolyn, mild spinal curvature noted. IMPRESSION: NONCONTRAST EXAM. MULTIPLE COMPRESSION FRACTURES IN THE THORACIC AND LUMBAR SPINE HAVE DEVELOPED IN T HE INTERVAL. 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 FINDINGS IN THE URINARY BLADDER IS DESCRIBED.
== END | disposition home or self-care (01) ==
LOC: RADCTMAIN 18:17
PROVIDERS: ATTEND Family Medicine
DX: R10.9 Unspecified abdominal pain (principal)
CPT/HCPCS: 74176

== ENCOUNTER 2020-04-13 07:50 | Emergency (ER) | payer MEDICARE ==
[2020-04-13 07:59] VITALS: RESP 18; TEMP 98.7
[2020-04-13] MEDS ORDERED: DIAZEPAM 5 MG/ML 2 ML INJ IVP STA (08:27)
--- NOTE | 2020-04-13 08:29 | ED ---
Back Pain HPI - General Chief Complaint: Back Pain/Injury Stated Complaint: Back pain Time Seen by Provider: 04/13/20 07:58 Source: patient, EMS, RN notes reviewed Limitations: no limitations - History of Present Illness Initial Comments: This a 74-year-old male presents emergency Department chief complaint of back pain. Patient has chronic back pain which she has to fractures. Patient states that he takes morphine and muscle relaxers daily. Patient states he's been followed by orthopedics associate. Patient states he was laying in bed went to rollover and felt spasms in his back. He states that the pain was not subsiding continuously called EMS. He was given fentanyl which is improving his symptoms. Patient lives of chronic pain. Patient denies any bowel, bladder incontinence or retention. Patient is wheelchair-bound at this point. Patient states he has a prosthesis for his left leg but does not use it. Patient has fever, chills, chest pain. Patient states he has a history of PE but has no increased symptoms. Patient offers no other associated complaints - Related Data Home Medications Medication Instructions Recorded Confirmed Albuterol Inhaler [Ventolin Hfa 2 puff INHALATION RT-QID PRN 02/14/20 02/14/20 Inhaler] Ferrous Sulfate [Iron (65 MG 325 mg PO DAILY 02/14/20 02/14/20 Elemental)] Fluticasone/Salmeterol 1 puff INHALATION RT-BID 02/14/20 02/14/20 [Fluticasone-Salmeterol 232-14] Meclizine [Antivert] 25 mg PO BID PRN 02/14/20 02/14/20 Rivaroxaban [Xarelto] 20 mg PO DAILY 02/14/20 02/14/20 Previous Rx's Medication Instructions Recorded Cyclobenzaprine [Flexeril] 10 mg PO BID PRN #60 tab 02/16/20 Gabapentin [Neurontin] 300 mg PO TID #9 cap 02/21/20 INSULIN LISPRO (HumaLOG) [humaLOG] 0 unit SQ ACHS #1 vial 02/21/20 Ipratropium-Albuterol Nebulize 3 ml INHALATION QID ml 02/21/20 [Duoneb 0.5 mg-3 mg/3 ml Soln] Morphine Sulfate ER [Ms Contin] 15 mg PO Q12HR #6 tablet 02/21/20 oxyCODONE-APAP 10-325MG [Percocet 1 tab PO QID PRN #12 tab 02/21/20 10-325 mg] predniSONE 10 mg PO DIRECTED #30 tab 02/21/20 Allergies Allergy/AdvReac Type Severity Reaction Status Date / Time No Known Allergies Allergy Verified 04/13/20 07:59 Review of Systems ROS Statement: Those systems with pertinent positive or pertinent negative responses have been documented in the HPI. ROS Other: All systems not noted in ROS Statement are negative. Past Medical History Past Medical History: Coronary Artery Disease (CAD), COPD, Deep Vein Thrombosis (DVT), Hyperlipidemia, Pneumonia, Pulmonary Embolus (PE), Rheumatoid Arthritis (RA), Vascular Disorder Additional Past Medical History / Comment(s): History of pancreatitis, 2012 past medical record documents viral pericarditis but pt denies, gastritis, Fluid build up rt lung - previous chest tube - pt unsure what it is from, BOTTOM TEETH REMOVED 09-01-18, wounds in his right lower extremity, left tnjof-cza-hecm stump and left elbow History of Any Multi-Drug Resistant Organisms: MRSA Date of last positivie culture/infection: 11/23/18 MDRO Source:: KNEE Past Surgical History: Heart Catheterization With Stent, Joint Replacement, Orthopedic Surgery Additional Past Surgical History / Comment(s): Total L knee arthroplasty with a spacer in place, R total shoulder replaced, L ankle ORIF d/t fracture, EGD, left rotator cuff repair. 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 Date of Last Stent Placement:: 12/10/16 Past Psychological History: Anxiety, Depression Smoking Status: Former smoker Past Alcohol Use History: None Reported Past Drug Use History: Marijuana - Past Family History Sister(s) Family Medical History: Cancer Additional Family Medical History / Comment(s): pt's father had ra, mother had 16 children was healthy most of her life age 93 from dementia. Mother Family Medical History: Dementia Additional Family Medical History / Comment(s): Mother from dementia at the age of 93 yrs. Father Family Medical History: Rheumatoid Arthritis (RA) General Exam General appearance: alert, in no apparent distress Head exam: Present: atraumatic, normocephalic, normal inspection Eye exam: Present: normal appearance, PERRL, EOMI. Absent: scleral icterus, conjunctival injection, periorbital swelling ENT exam: Present: normal exam, normal oropharynx, mucous membranes moist Neck exam: Present: normal inspection. Absent: tenderness, meningismus, lymphadenopathy Respiratory exam: Present: decreased breath sounds. Absent: normal lung sounds bilaterally, respiratory distress, wheezes, rales, rhonchi, stridor Cardiovascular Exam: Present: regular rate, normal rhythm, normal heart sounds. Absent: systolic murmur, diastolic murmur, rubs, gallop, clicks GI/Abdominal exam: Present: soft, normal bowel sounds. Absent: distended, tenderness, guarding, rebound, rigid Extremities exam: Present: other (Left leg above knee amputation) Back exam: Present: tenderness, muscle spasm, paraspinal tenderness. Absent: full ROM, vertebral tenderness Neurological exam: Present: alert, oriented X3, CN II-XII intact Skin exam: Present: warm, dry, intact, normal color. Absent: rash Course Vital Signs 04/13/20 04/13/20 04/13/20 07:52 08:40 08:57 Temperature 98.7 F Pulse Rate 104 H 99 101 H Respiratory 18 18 18 Rate Blood Pressure 121/68 100/72 106/73 O2 Sat by Pulse 92 L 100 100 Oximetry - Reevaluation(s) Reevaluation #1: 04/13/20 09:11 Patient reevaluated after Valium. Patient states he feels greatly improved. Patient states he feels comfortable with this pain multiple home at this time. Medical Decision Making - Medical Decision Making 72-year-old male has chronic back pain present for exacerbation after twisting. He has no neurological deficits no red flag symptoms. He is wheelchair bound at this time. Patient be discharged after he improved from Valium. Return parameters were discussed. Disposition Clinical Impression: Acute exacerbation of chronic low back pain Disposition: HOME SELF-CARE Condition: Stable Instructions (If sedation given, give patient instructions): Acute Low Back Pain (ED) Additional Instructions: Please return to the Emergency Department if symptoms worsen or any other concerns. Is patient prescribed a controlled substance at d/c from ED?: No Referrals: Ruthy Montemayor DO [Primary Care Provider] - 1-2 days Time of Disposition: 09:13
[2020-04-13] MEDS ORDERED: DIAZEPAM 5 MG/ML 2 ML INJ IM STA (10:33)
[2020-04-13] MEDS ORDERED: oxyCODONE-APAP 10-325MG 1 EACH TAB PO STA (10:33)
[2020-04-13 10:48] VITALS: BP 120/75; PULSE 88
== END 2020-04-13 10:45 | disposition home or self-care (01) ==
LOC: EC 07:50
DX: G89.29 Other chronic pain (principal); M54.5 Low back pain; R50.9 Fever, unspecified; R07.9 Chest pain, unspecified; J44.9 Chronic obstructive pulmonary disease, unspecified; I25.10 Atherosclerotic heart disease of native coronary artery without angina pectoris; M06.9 Rheumatoid arthritis, unspecified; Z79.51 Long term (current) use of inhaled steroids; Z79.01 Long term (current) use of anticoagulants; Z86.14 Personal history of Methicillin resistant Staphylococcus aureus infection; Z86.711 Personal history of pulmonary embolism; Z89.612 Acquired absence of left leg above knee; Z95.5 Presence of coronary angioplasty implant and graft; Z96.611 Presence of right artificial shoulder joint; Z86.718 Personal history of other venous thrombosis and embolism; Z99.3 Dependence on wheelchair; Z87.891 Personal history of nicotine dependence
CPT/HCPCS: 99284; 96374; 96372; J3360

== ENCOUNTER 2020-05-25 10:55 | Emergency (ER) | payer MEDICARE ==
[2020-05-25] MEDS ORDERED: MORPHINE SULFATE 4 MG/ML SYRINGE IM PRN (11:19)
--- NOTE | 2020-05-25 11:26 | ED ---
General Adult HPI - General Chief complaint: Extremity Problem,Nontraumatic Stated complaint: Hematoma Time Seen by Provider: 05/25/20 10:59 Source: EMS Mode of arrival: EMS Limitations: no limitations - History of Present Illness Initial comments: Dictation was produced using [employer] dictation software. please excuse any grammatical, word or spelling errors. This patient was cared for during a federal and state declared state of emergency secondary to Covid 19 Chief Complaint: 75-year-old male with past medical history of coronary artery disease, left lower extremity amputation, PE, dyslipidemia presents with right foot blister History of Present Illness: 75-year-old male has chronic once his right lower extremity. He has daily wound care for his right lower extremity wounds. He presents today with a blister to his right foot. Patient states that blister occurred over the last 24 hours. It is located to his right anterior foot. It's causing him some pain. Patient states he noticed a blister yesterday. Patient has a fever, chills or night sweats. Patient is on the complaints at this time. The ROS documented in this emergency department record has been reviewed and confirmed by me. Those systems with pertinent positive or negative responses have been documented in the HPI. All other systems are other negative and/or noncontributory. PHYSICAL EXAM: General Impression: Alert and oriented x3, not in acute distress HEENT: Normocephalic atraumatic, extra-ocular movements intact, pupils equal and reactive to light bilaterally, mucous membranes moist. Cardiovascular: Heart regular rate and rhythm Chest: Able to complete full sentences, no retractions, no tachypnea Abdomen: abdomen soft, non-tender, non-distended, no organomegaly Musculoskeletal: Pulses present and equal in all extremities, no peripheral edema Motor: no focal deficits noted Neurological: CN II-XII grossly intact, no focal motor or sensory deficits noted Right lower extremity: Multiple chronic wounds to the anterior right lower extremity kc. There is a 10 x 8 cm blister with serous fluid just under the epidermis. Psych: Normal affect and mood ED course: 75-year-old male with right foot blister. He has a lot of comorbidities. Patient currently getting treatment for resolution of any wounds. This is likely caused by skin irritation from right lower extremity bandage. Upon arrival are within acceptable limits. Patient reports that this blister is causing pain. was aspirated with drainage of serous contents. B andages are replaced. Patient started on prophylactic antibiotics. He is given referral to outpatient wound care. - Related Data Home Medications Medication Instructions Recorded Confirmed Albuterol Inhaler [Ventolin Hfa 2 puff INHALATION RT-QID PRN 02/14/20 02/14/20 Inhaler] Ferrous Sulfate [Iron (65 MG 325 mg PO DAILY 02/14/20 02/14/20 Elemental)] Fluticasone/Salmeterol 1 puff INHALATION RT-BID 02/14/20 02/14/20 [Fluticasone-Salmeterol 232-14] Meclizine [Antivert] 25 mg PO BID PRN 02/14/20 02/14/20 Rivaroxaban [Xarelto] 20 mg PO DAILY 02/14/20 02/14/20 Previous Rx's Medication Instructions Recorded Cyclobenzaprine [Flexeril] 10 mg PO BID PRN #60 tab 02/16/20 Gabapentin [Neurontin] 300 mg PO TID #9 cap 02/21/20 INSULIN LISPRO (HumaLOG) [humaLOG] 0 unit SQ ACHS #1 vial 02/21/20 Ipratropium-Albuterol Nebulize 3 ml INHALATION QID ml 02/21/20 [Duoneb 0.5 mg-3 mg/3 ml Soln] Morphine Sulfate ER [Ms Contin] 15 mg PO Q12HR #6 tablet 02/21/20 oxyCODONE-APAP 10-325MG [Percocet 1 tab PO QID PRN #12 tab 02/21/20 10-325 mg] predniSONE 10 mg PO DIRECTED #30 tab 02/21/20 diazePAM [Valium] 5 mg PO TID PRN 3 Days #9 tab 04/13/20 Cephalexin [Keflex] 500 mg PO Q6HR 5 Days #20 cap 05/25/20 Allergies Allergy/AdvReac Type Severity Reaction Status Date / Time No Known Allergies Allergy Verified 04/13/20 07:59 Review of Systems ROS Statement: Those systems with pertinent positive or pertinent negative responses have been documented in the HPI. ROS Other: All systems not noted in ROS Statement are negative. Past Medical History Past Medical History: Coronary Artery Disease (CAD), COPD, Deep Vein Thrombosis (DVT), Hyperlipidemia, Pneumonia, Pulmonary Embolus (PE), Rheumatoid Arthritis (RA), Vascular Disorder Additional Past Medical History / Comment(s): History of pancreatitis, 2012 past medical record documents viral pericarditis but pt denies, gastritis, Fluid build up rt lung - previous chest tube - pt unsure what it is from, BOTTOM TEETH REMOVED 09-01-18, wounds in his right lower extremity, left shlpt-pxv-vrdl stump and left elbow History of Any Multi-Drug Resistant Organisms: MRSA Date of last positivie culture/infection: 11/23/18 MDRO Source:: KNEE Past Surgical History: Heart Catheterization With Stent, Joint Replacement, Orthopedic Surgery Additional Past Surgical History / Comment(s): Total L knee arthroplasty with a spacer in place, R total shoulder replaced, L ankle ORIF d/t fracture, EGD, left rotator cuff repair. 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 Date of Last Stent Placement:: 12/10/16 Past Psychological History: Anxiety, Depression Smoking Status: Former smoker Past Alcohol Use History: None Reported Past Drug Use History: Marijuana - Past Family History Sister(s) Family Medical History: Cancer Additional Family Medical History / Comment(s): pt's father had ra, mother had 16 children was healthy most of her life age 93 from dementia. Mother Family Medical History: Dementia Additional Family Medical History / Comment(s): Mother from dementia at the age of 93 yrs. Father Family Medical History: Rheumatoid Arthritis (RA) General Exam Limitations: no limitations Course Vital Signs 05/25/20 10:57 Temperature 97.8 F Pulse Rate 96 Respiratory 16 Rate Blood Pressure 139/95 O2 Sat by Pulse 95 Oximetry Disposition Clinical Impression: Blister of foot Disposition: HOME SELF-CARE Condition: Good Instructions (If sedation given, give patient instructions): [place] (ED) Additional Instructions: Please follow up with her primary care doctor or follow up with art specialist. Given referral to patient account specialist. Prescription provided for prophylactic antibiotics. Prescriptions: Cephalexin [Keflex] 500 mg PO Q6HR 5 Days #20 cap Is patient prescribed a controlled substance at d/c from ED?: No Referrals: Ruthy Montemayor DO [Primary Care Provider] - 1-2 days Delbert Diaz MD [STAFF PHYSICIAN] - 1-2 days Time of Disposition: 11:23
[2020-05-25] MEDS ORDERED: MORPHINE SULFATE 4 MG/ML SYRINGE IVP STA (11:38)
[2020-05-25 12:37] VITALS: BP 127/77; PULSE 75; RESP 17; TEMP 98.1
== END 2020-05-25 12:37 | disposition home or self-care (01) ==
LOC: EC 10:55
DX: S90.821A Blister (nonthermal), right foot, initial encounter (principal); J44.9 Chronic obstructive pulmonary disease, unspecified; Z79.01 Long term (current) use of anticoagulants; Z86.14 Personal history of Methicillin resistant Staphylococcus aureus infection; Z87.891 Personal history of nicotine dependence; Z89.612 Acquired absence of left leg above knee; Z86.718 Personal history of other venous thrombosis and embolism; Z86.711 Personal history of pulmonary embolism; Z95.5 Presence of coronary angioplasty implant and graft; Z96.652 Presence of left artificial knee joint; Z96.611 Presence of right artificial shoulder joint
CPT/HCPCS: 93005; 87070; 87205; 87075; 99284; 96374; J2270

== ENCOUNTER 2020-07-10 17:39 | Inpatient (IN) | payer MEDICARE ==
[2020-07-10] MEDS ORDERED: SODIUM CHLORIDE 0.9% 1,000 ML IV STA ×2 (17:56→20:32)
[2020-07-10] MEDS ORDERED: SODIUM CHLORIDE 0.9% 1,000 ML IV ONE (17:56)
[2020-07-10] MEDS ORDERED: cefTRIAXone IN SWFI 1,000 MG/10 ML SYRINGE IVP STA (17:58)
--- NOTE | 2020-07-10 18:03 | ED ---
Altered Mental Status HPI - General Stated Complaint: altered mental status Time Seen by Provider: 07/10/20 17:39 Source: EMS, RN notes reviewed, old records reviewed Mode of arrival: EMS - History of Present Illness Initial Comments: This is a 75-year-old male with a history of a left ehmtf-hnj-ozkc amputation among other medical issues who presents with the onset of confusion at 2 or 3 PM today he was also noted have a temperature that was elevated 102.4 heart rate of about 150 which did decrease to about 1:30 after 800 mL of IV fluid by EMS. He also has evidence of was thought to be Katja of the right upper extremity but now it looks edematous and erythematous with increased localized temperature. Patient will have times of confusion intermittent sent with times of being with apparent normal bowel sounds. No history of any falls no other modifying factors this time MD Complaint: altered mental status, confusion, other - Related Data Home Medications Medication Instructions Recorded Confirmed Rivaroxaban [Xarelto] 20 mg PO DAILY 02/14/20 07/10/20 Ipratropium-Albuterol Nebulize 3 ml INHALATION RT-HS PRN 07/10/20 07/10/20 [Duoneb 0.5 mg-3 mg/3 ml Soln] Morphine Sulfate ER [Ms Contin] 15 mg PO Q12H 07/10/20 07/10/20 Nystatin 100,000 Unit/ml Susp 500,000 unit PO QID 07/10/20 07/10/20 [Mycostatin Oral Susp] Therahoney 1 applic TOPICAL MOWEFR 07/10/20 07/10/20 predniSONE 30 mg PO DAILY 07/10/20 07/10/20 Previous Rx's Medication Instructions Recorded Gabapentin [Neurontin] 300 mg PO TID #9 cap 02/21/20 oxyCODONE-APAP 10-325MG [Percocet 1 tab PO QID PRN #12 tab 02/21/20 10-325 mg] Allergies Allergy/AdvReac Type Severity Reaction Status Date / Time No Known Allergies Allergy Verified 07/10/20 19:29 Review of Systems ROS Statement: Those systems with pertinent positive or pertinent negative responses have been documented in the HPI. ROS Other: All systems not noted in ROS Statement are negative. Limitations: ROS unobtainable due to patients medical condition Past Medical History Past Medical History: Coronary Artery Disease (CAD), COPD, Deep Vein Thrombosis (DVT), Hyperlipidemia, Pneumonia, Pulmonary Embolus (PE), Rheumatoid Arthritis (RA), Vascular Disorder Additional Past Medical History / Comment(s): History of pancreatitis, 2012 past medical record documents viral pericarditis but pt denies, gastritis, Fluid build up rt lung - previous chest tube - pt unsure what it is from, BOTTOM TEETH REMOVED 09-01-18, wounds in his right lower extremity, left wawbh-nfh-cwef stump and left elbow History of Any Multi-Drug Resistant Organisms: MRSA Date of last positivie culture/infection: 11/23/18 MDRO Source:: KNEE Past Surgical History: Heart Catheterization With Stent, Joint Replacement, Orthopedic Surgery Additional Past Surgical History / Comment(s): Total L knee arthroplasty with a spacer in place, R total shoulder replaced, L ankle ORIF d/t fracture, EGD, left rotator cuff repair. 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 Date of Last Stent Placement:: 12/10/16 Smoking Status: Former smoker - Past Family History Sister(s) Family Medical History: Cancer Additional Family Medical History / Comment(s): pt's father had ra, mother had 16 children was healthy most of her life age 93 from dementia. Mother Family Medical History: Dementia Additional Family Medical History / Comment(s): Mother from dementia at the age of 93 yrs. Father Family Medical History: Rheumatoid Arthritis (RA) General Exam - General Exam Comments Initial Comments: This is a well-developed well-nourished confused male Limitations: altered mental status, physical limitation General appearance: lethargic, other (Confused) ENT exam: Present: mucous membranes dry Respiratory exam: Present: wheezes, accessory muscle use, decreased breath sounds Cardiovascular Exam: Present: tachycardia Rectal exam: Present: deferred Extremities exam: Present: other (Right upper extremity demonstrates increased localized temperature and erythema consistent with a cellulitis. He also demonstrates a left xnnec-ulb-myyl amputation.) Neurological exam: Present: altered, CN II-XII intact Psychiatric exam: Present: anxious Skin exam: Present: warm, dry, erythema Course Vital Signs 07/10/20 07/10/2020 18:00 20:49 21:57 Temperature 100.1 F H Pulse Rate 136 H 113 H 110 H Respiratory 22 22 20 Rate Blood Pressure 72/41 73/52 97/77 O2 Sat by Pulse 98 99 Oximetry - Reevaluation(s) Reevaluation #1: 07/10/20 20:37 Patient's breathing did improve somewhat however he still remains somewhat hypotensive. IV fluids are ordered. He additionally the patient is a chronic steroids she'll be getting IV hydrocortisone. Patient does demonstrate evidence of cellulitis and sepsis. Initial IV fluids ordered patient will be also placed on additional antibiotics. Reevaluation #2: 07/10/20 22:35 Patient did demonstrate evidence of sepsis with hypotension fever tachycardia and source of infection or right forearm cellulitis. Patient was given IV fluids as well as IV hydrocortisone for presumed adrenal insufficiency. This did improve his blood pressure and decrease his heart rate. Patient did respond again with improved breath sounds heart rate improved blood pressure improved Medical Decision Making - Lab Data Result diagrams: 07/10/20 18:36 07/10/20 18:36 Lab Results 07/10/20 07/10/20 07/10/20 Range/Units 18:27 18:36 18:36 WBC 3.1 L (3.8-10.6) k/uL RBC 5.17 (4.30-5.90) m/uL Hgb 10.4 L (13.0-17.5) gm/dL Hct 35.8 L (39.0-53.0) % MCV 69.3 L (80.0-100.0) fL MCH 20.2 L (25.0-35.0) pg MCHC 29.2 L (31.0-37.0) g/dL RDW 19.2 H (11.5-15.5) % Plt Count 458 H (150-450) k/uL Neutrophils % (Manual) 62 % Band Neuts % (Manual) 16 % Lymphocytes % (Manual) 22 % Monocytes % (Manual) 2 % Neutrophils # (Manual) 2.40 (1.3-7.7) k/uL Lymphocytes # (Manual) 0.68 L (1.0-4.8) k/uL Monocytes # (Manual) 0.06 (0-1.0) k/uL Nucleated RBCs 24 H (0-0) /100 WBC Manual Slide Review Performed Polychromasia Present Hypochromasia Marked Hypochromasia (manual) Present Poikilocytosis (manual Present Anisocytosis Slight Anisocytosis (manual) Present Microcytosis Marked Ovalocytes Present PT 10.1 (9.0-12.0) sec INR 1.0 (<1.2) APTT 20.8 L (22.0-30.0) sec Sodium (137-145) mmol/L Potassium (3.5-5.1) mmol/L Chloride (98-107) mmol/L Carbon Dioxide (22-30) mmol/L Anion Gap mmol/L BUN (9-20) mg/dL Creatinine (0.66-1.25) mg/dL Est GFR (CKD-EPI)AfAm (>60 ml/min/1.73 sqM) Est GFR (CKD-EPI)NonAf (>60 ml/min/1.73 sqM) Glucose (74-99) mg/dL POC Glucose (mg/dL) 99 (75-99) mg/dL POC Glu Director [employer] ID Lou Wiggins Lactic Ac Sepsis Rflx Plasma Lactic Acid Harsh (0.7-2.0) mmol/L Calcium (8.4-10.2) mg/dL Total Bilirubin (0.2-1.3) mg/dL AST (17-59) U/L ALT (4-49) U/L Alkaline Phosphatase (38-126) U/L Ammonia (<30) umol/L Creatine Kinase (55-170) U/L Troponin I (0.000-0.034) ng/mL Total Protein (6.3-8.2) g/dL Albumin (3.5-5.0) g/dL Serum Alcohol mg/dL 07/10/20 07/10/20 07/10/20 Range/Units 18:36 18:36 18:36 WBC (3.8-10.6) k/uL RBC (4.30-5.90) m/uL Hgb (13.0-17.5) gm/dL Hct (39.0-53.0) % MCV (80.0-100.0) fL MCH (25.0-35.0) pg MCHC (31.0-37.0) g/dL RDW (11.5-15.5) % Plt Count (150-450) k/uL Neutrophils % (Manual) % Band Neuts % (Manual) % Lymphocytes % (Manual) % Monocytes % (Manual) % Neutrophils # (Manual) (1.3-7.7) k/uL Lymphocytes # (Manual) (1.0-4.8) k/uL Monocytes # (Manual) (0-1.0) k/uL Nucleated RBCs (0-0) /100 WBC Manual Slide Review Polychromasia Hypochromasia Hypochromasia (manual) Poikilocytosis (manual Anisocytosis Anisocytosis (manual) Microcytosis Ovalocytes PT (9.0-12.0) sec INR (<1.2) APTT (22.0-30.0) sec Sodium 135 L (137-145) mmol/L Potassium 4.1 (3.5-5.1) mmol/L Chloride 105 (98-107) mmol/L Carbon Dioxide 24 (22-30) mmol/L Anion Gap 6 mmol/L BUN 21 H (9-20) mg/dL Creatinine 0.90 (0.66-1.25) mg/dL Est GFR (CKD-EPI)AfAm >90 (>60 ml/min/1.73 sqM) Est GFR (CKD-EPI)NonAf 84 (>60 ml/min/1.73 sqM) Glucose 91 (74-99) mg/dL POC Glucose (mg/dL) (75-99) mg/dL POC Glu Director Electronics ID Lactic Ac Sepsis Rflx Plasma Lactic Acid Harsh 4.0 H* (0.7-2.0) mmol/L Calcium 8.6 (8.4-10.2) mg/dL Total Bilirubin 0.5 (0.2-1.3) mg/dL AST 24 (17-59) U/L ALT 19 (4-49) U/L Alkaline Phosphatase 136 H (38-126) U/L Ammonia <9 (<30) umol/L Creatine Kinase 27 L (55-170) U/L Troponin I 0.055 H* (0.000-0.034) ng/mL Total Protein 5.7 L (6.3-8.2) g/dL Albumin 2.7 L (3.5-5.0) g/dL Serum Alcohol <10 mg/dL 07/10/20 Range/Units 19:20 WBC (3.8-10.6) k/uL RBC (4.30-5.90) m/uL Hgb (13.0-17.5) gm/dL Hct (39.0-53.0) % MCV (80.0-100.0) fL MCH (25.0-35.0) pg MCHC (31.0-37.0) g/dL RDW (11.5-15.5) % Plt Count (150-450) k/uL Neutrophils % (Manual) % Band Neuts % (Manual) % Lymphocytes % (Manual) % Monocytes % (Manual) % Neutrophils # (Manual) (1.3-7.7) k/uL Lymphocytes # (Manual) (1.0-4.8) k/uL Monocytes # (Manual) (0-1.0) k/uL Nucleated RBCs (0-0) /100 WBC Manual Slide Review Polychromasia Hypochromasia Hypochromasia (manual) Poikilocytosis (manual Anisocytosis Anisocytosis (manual) Microcytosis Ovalocytes PT (9.0-12.0) sec INR (<1.2) APTT (22.0-30.0) sec Sodium (137-145) mmol/L Potassium (3.5-5.1) mmol/L Chloride (98-107) mmol/L Carbon Dioxide (22-30) mmol/L Anion Gap mmol/L BUN (9-20) mg/dL Creatinine (0.66-1.25) mg/dL Est GFR (CKD-EPI)AfAm (>60 ml/min/1.73 sqM) Est GFR (CKD-EPI)NonAf (>60 ml/min/1.73 sqM) Glucose (74-99) mg/dL POC Glucose (mg/dL) (75-99) mg/dL POC Glu Director Electronics ID Lactic Ac Sepsis Rflx Y Plasma Lactic Acid Harsh (0.7-2.0) mmol/L Calcium (8.4-10.2) mg/dL Total Bilirubin (0.2-1.3) mg/dL AST (17-59) U/L ALT (4-49) U/L Alkaline Phosphatase (38-126) U/L Ammonia (<30) umol/L Creatine Kinase (55-170) U/L Troponin I (0.000-0.034) ng/mL Total Protein (6.3-8.2) g/dL Albumin (3.5-5.0) g/dL Serum Alcohol mg/dL Critical Care Time Critical Care Time: Yes Total Critical Care Time: 47 Critical Care Time: 47 minutes of critical care time which includes physical labs x-rays discussed with paramedics and brought the patient and multiple reevaluation patient responsive therapy discuss with the patient's family discussion with the admitting physician admission orders and documentation of the above Disposition Clinical Impression: Cellulitis of right arm, Sepsis associated hypotension, Dehydration, Tachycardia, Lactic acidosis, Elevated troponin, Febrile illness, acute Disposition: ADMITTED IP TO THIS [facility] Condition: Serious Referrals: Ruthy Montemayor DO [Primary Care Provider] - 1-2 days
[2020-07-10 18:29] LABS: Glucose,Whole Blood 99 mg/dL (75-99)
[2020-07-10 19:04] LABS: ALT 19 U/L (4-49); AST 24 U/L (17-59); African American GFR (CKD) >90 (>60 ml/min/1.73 sqM); Albumin 2.7 g/dL (3.5-5.0); Alcohol <10 mg/dL; Alkaline Phosphatase 136 U/L (38-126); Anion Gap 6 mmol/L; Blood Urea Nitrogen 21 mg/dL (9-20); Calcium 8.6 mg/dL (8.4-10.2); Carbon Dioxide 24 mmol/L (22-30); Chloride 105 mmol/L (98-107); Creatine Kinase 27 U/L (55-170); Glucose 91 mg/dL (74-99); Non-African American GFR(CKD) 84 (>60 ml/min/1.73 sqM); Potassium 4.1 mmol/L (3.5-5.1); Sodium 135 mmol/L (137-145); Total Bilirubin 0.5 mg/dL (0.2-1.3); Total Protein 5.7 g/dL (6.3-8.2)
[2020-07-10 19:05] LABS: Anisocytosis Slight; HCT 35.8 % (39.0-53.0); HGB 10.4 gm/dL (13.0-17.5); Hypochromasia Marked; MCH 20.2 pg (25.0-35.0); MCHC 29.2 g/dL (31.0-37.0); MCV 69.3 fL (80.0-100.0); Mean Platelet Volume 8.4; Microcytosis Marked; Platelet Count 458 k/uL (150-450); RBC 5.17 m/uL (4.30-5.90); RDW 19.2 % (11.5-15.5)
[2020-07-10 19:34] LABS: Prothrombin Time 10.1 sec (9.0-12.0)
[2020-07-10 19:35] LABS: Band Neutrophils % 16 %; Lymphocytes # (M) 0.68 k/uL (1.0-4.8); Monocytes # (M) 0.06 k/uL (0-1.0); Neutrophils % (M) 62 %; Nucleated Red Blood Cells 24 /100 WBC (0-0); Total Cells Counted 200; WBC 3.1 k/uL (3.8-10.6)
[2020-07-10 19:36] LABS: Anisocytosis (M) Present; Hypochromasia (M) Present; Ovalocytes Present; Poikilocytosis (M) Present; Polychromasia Present
[2020-07-10 19:37] LABS: Partial Thromboplastin Time 20.8 sec (22.0-30.0)
--- NOTE | 2020-07-10 19:58 | CT ---
EXAMINATION TYPE: CT brain wo con DATE OF EXAM: 07/10/2020 COMPARISON: 02/19/2020 HISTORY: Altered mental status. CT DLP: 1121.4 mGycm Automated exposure control for dose reduction was used. Ventricles have normal size. There is no mass effect nor midline shift. There is no sign of intracran ial hemorrhage. There is 2.5 cm area of wedge-shaped hypodensity in the left occipital lobe cortex. T he calvarium is intact. Skull base is intact. IMPRESSION: There is left occipital lobe infarct that appears old or subacute. Infarct is a change compared to ol d exam. No hemorrhage.
--- NOTE | 2020-07-10 20:00 | XR ---
EXAMINATION TYPE: XR chest 2V DATE OF EXAM: 07/10/2020 COMPARISON: 02/14/2020 HISTORY: Altered mental status TECHNIQUE: FINDINGS: There is coarsening of interstitial markings. There is some blunting of the posterior costo phrenic angles. There are no hilar masses. There is right shoulder prosthesis. IMPRESSION: Pulmonary interstitial infiltrates increased compared to old exam and could relate to fib rosis. Mild heart failure not excluded. There is pleural reaction at the posterior lung bases and mild fluid unchanged.
[2020-07-10] MEDS ORDERED: HYDROCORTISONE SUCCINATE 100 MG/2 ML VIAL IV STA (20:37)
[2020-07-10] MEDS ORDERED: PIPERACILLIN-TAZOBACTAM 3.375 GM in SODIUM CHLORIDE 0.9% 100 ML IVPB STA (20:38)
[2020-07-10] MEDS ORDERED: VANCOMYCIN IV PER PHARMACY 1 EACH MISC MISCELLANE PRN (20:39)
[2020-07-10] MEDS ORDERED: VANCOMYCIN 1,500 MG in SODIUM CHLORIDE 0.9% 250 ML IVPB STA (20:44)
--- NOTE | 2020-07-10 22:47 | ED ---
Medical Decision Making - Lab Data Result diagrams: 07/10/20 18:36 07/10/20 18:36 Lab Results 07/10/20 07/10/20 07/10/20 Range/Units 18:27 18:36 18:36 WBC 3.1 L (3.8-10.6) k/uL RBC 5.17 (4.30-5.90) m/uL Hgb 10.4 L (13.0-17.5) gm/dL Hct 35.8 L (39.0-53.0) % MCV 69.3 L (80.0-100.0) fL MCH 20.2 L (25.0-35.0) pg MCHC 29.2 L (31.0-37.0) g/dL RDW 19.2 H (11.5-15.5) % Plt Count 458 H (150-450) k/uL Neutrophils % (Manual) 62 % Band Neuts % (Manual) 16 % Lymphocytes % (Manual) 22 % Monocytes % (Manual) 2 % Neutrophils # (Manual) 2.40 (1.3-7.7) k/uL Lymphocytes # (Manual) 0.68 L (1.0-4.8) k/uL Monocytes # (Manual) 0.06 (0-1.0) k/uL Nucleated RBCs 24 H (0-0) /100 WBC Manual Slide Review Performed Polychromasia Present Hypochromasia Marked Hypochromasia (manual) Present Poikilocytosis (manual Present Anisocytosis Slight Anisocytosis (manual) Present Microcytosis Marked Ovalocytes Present PT 10.1 (9.0-12.0) sec INR 1.0 (<1.2) APTT 20.8 L (22.0-30.0) sec Sodium (137-145) mmol/L Potassium (3.5-5.1) mmol/L Chloride (98-107) mmol/L Carbon Dioxide (22-30) mmol/L Anion Gap mmol/L BUN (9-20) mg/dL Creatinine (0.66-1.25) mg/dL Est GFR (CKD-EPI)AfAm (>60 ml/min/1.73 sqM) Est GFR (CKD-EPI)NonAf (>60 ml/min/1.73 sqM) Glucose (74-99) mg/dL POC Glucose (mg/dL) 99 (75-99) mg/dL POC Glu Gravure Press Set Up Operator ID Lou Wiggins Lactic Ac Sepsis Rflx Plasma Lactic Acid Harsh (0.7-2.0) mmol/L Calcium (8.4-10.2) mg/dL Total Bilirubin (0.2-1.3) mg/dL AST (17-59) U/L ALT (4-49) U/L Alkaline Phosphatase (38-126) U/L Ammonia (<30) umol/L Creatine Kinase (55-170) U/L Troponin I (0.000-0.034) ng/mL Total Protein (6.3-8.2) g/dL Albumin (3.5-5.0) g/dL Serum Alcohol mg/dL 07/10/20 07/10/20 07/10/20 Range/Units 18:36 18:36 18:36 WBC (3.8-10.6) k/uL RBC (4.30-5.90) m/uL Hgb (13.0-17.5) gm/dL Hct (39.0-53.0) % MCV (80.0-100.0) fL MCH (25.0-35.0) pg MCHC (31.0-37.0) g/dL RDW (11.5-15.5) % Plt Count (150-450) k/uL Neutrophils % (Manual) % Band Neuts % (Manual) % Lymphocytes % (Manual) % Monocytes % (Manual) % Neutrophils # (Manual) (1.3-7.7) k/uL Lymphocytes # (Manual) (1.0-4.8) k/uL Monocytes # (Manual) (0-1.0) k/uL Nucleated RBCs (0-0) /100 WBC Manual Slide Review Polychromasia Hypochromasia Hypochromasia (manual) Poikilocytosis (manual Anisocytosis Anisocytosis (manual) Microcytosis Ovalocytes PT (9.0-12.0) sec INR (<1.2) APTT (22.0-30.0) sec Sodium 135 L (137-145) mmol/L Potassium 4.1 (3.5-5.1) mmol/L Chloride 105 (98-107) mmol/L Carbon Dioxide 24 (22-30) mmol/L Anion Gap 6 mmol/L BUN 21 H (9-20) mg/dL Creatinine 0.90 (0.66-1.25) mg/dL Est GFR (CKD-EPI)AfAm >90 (>60 ml/min/1.73 sqM) Est GFR (CKD-EPI)NonAf 84 (>60 ml/min/1.73 sqM) Glucose 91 (74-99) mg/dL POC Glucose (mg/dL) (75-99) mg/dL POC Glu Gravure Press Set Up Operator ID Lactic Ac Sepsis Rflx Plasma Lactic Acid Harsh 4.0 H* (0.7-2.0) mmol/L Calcium 8.6 (8.4-10.2) mg/dL Total Bilirubin 0.5 (0.2-1.3) mg/dL AST 24 (17-59) U/L ALT 19 (4-49) U/L Alkaline Phosphatase 136 H (38-126) U/L Ammonia <9 (<30) umol/L Creatine Kinase 27 L (55-170) U/L Troponin I 0.055 H* (0.000-0.034) ng/mL Total Protein 5.7 L (6.3-8.2) g/dL Albumin 2.7 L (3.5-5.0) g/dL Serum Alcohol <10 mg/dL 07/10/20 Range/Units 19:20 WBC (3.8-10.6) k/uL RBC (4.30-5.90) m/uL Hgb (13.0-17.5) gm/dL Hct (39.0-53.0) % MCV (80.0-100.0) fL MCH (25.0-35.0) pg MCHC (31.0-37.0) g/dL RDW (11.5-15.5) % Plt Count (150-450) k/uL Neutrophils % (Manual) % Band Neuts % (Manual) % Lymphocytes % (Manual) % Monocytes % (Manual) % Neutrophils # (Manual) (1.3-7.7) k/uL Lymphocytes # (Manual) (1.0-4.8) k/uL Monocytes # (Manual) (0-1.0) k/uL Nucleated RBCs (0-0) /100 WBC Manual Slide Review Polychromasia Hypochromasia Hypochromasia (manual) Poikilocytosis (manual Anisocytosis Anisocytosis (manual) Microcytosis Ovalocytes PT (9.0-12.0) sec INR (<1.2) APTT (22.0-30.0) sec Sodium (137-145) mmol/L Potassium (3.5-5.1) mmol/L Chloride (98-107) mmol/L Carbon Dioxide (22-30) mmol/L Anion Gap mmol/L BUN (9-20) mg/dL Creatinine (0.66-1.25) mg/dL Est GFR (CKD-EPI)AfAm (>60 ml/min/1.73 sqM) Est GFR (CKD-EPI)NonAf (>60 ml/min/1.73 sqM) Glucose (74-99) mg/dL POC Glucose (mg/dL) (75-99) mg/dL POC Glu Gravure Press Set Up Operator ID Lactic Ac Sepsis Rflx Y Plasma Lactic Acid Harsh (0.7-2.0) mmol/L Calcium (8.4-10.2) mg/dL Total Bilirubin (0.2-1.3) mg/dL AST (17-59) U/L ALT (4-49) U/L Alkaline Phosphatase (38-126) U/L Ammonia (<30) umol/L Creatine Kinase (55-170) U/L Troponin I (0.000-0.034) ng/mL Total Protein (6.3-8.2) g/dL Albumin (3.5-5.0) g/dL Serum Alcohol mg/dL Disposition Clinical Impression: Cellulitis of right arm, Sepsis associated hypotension, Dehydration, Tachycardia, Lactic acidosis, Elevated troponin, Febrile illness, acute, Adrenal insufficiency Disposition: ADMITTED IP TO THIS HOSP Condition: Serious Referrals: Ruthy Montemayor DO [Primary Care Provider] - 1-2 days
[2020-07-10] MEDS: SODIUM CHLORIDE 0.9% 1,000 ML IV SCH (22:58)
[2020-07-11] MEDS: IPRATROPIUM-ALBUTEROL 3 ML NEB INHALATION SCH ×9 (00:49→23:34)
[2020-07-11] MEDS: HYDROCORTISONE SUCCINATE 100 MG/2 ML VIAL IV SCH ×4 (01:51→23:55)
[2020-07-11] MEDS: oxyCODONE-APAP 10-325MG 1 EACH TAB PO PRN ×2 (04:55→13:48)
[2020-07-11] MEDS: PIPERACILLIN-TAZOBACTAM 3.375 GM in SODIUM CHLORIDE 0.9% 100 ML IVPB SCH ×2 (04:56→13:09)
[2020-07-11] MEDS: MORPHINE SULFATE ER 15 MG TABLET PO SCH ×2 (09:44→21:24)
[2020-07-11 09:47] LABS: African American GFR (CKD) >90 (>60 ml/min/1.73 sqM); Non-African American GFR(CKD) 85 (>60 ml/min/1.73 sqM)
[2020-07-11 10:18] LABS: Glucose,Whole Blood 132 mg/dL (75-99)
[2020-07-11] MEDS: SODIUM CHLORIDE 0.9% 1,000 ML IV SCH ×2 (10:20→16:13)
[2020-07-11] MEDS: NYSTATIN 100,000 UNIT/ML SUSP 500,000 UNIT/5 ML CUP PO SCH ×4 (10:22→23:55)
[2020-07-11] MEDS: RIVAROXABAN 20 MG TAB PO SCH (10:22)
[2020-07-11] MEDS: GABAPENTIN 300 MG CAP PO SCH ×3 (10:22→21:24)
[2020-07-11] MEDS: VANCOMYCIN 1,500 MG in SODIUM CHLORIDE 0.9% 250 ML IVPB SCH ×2 (10:22→21:25)
[2020-07-11] MEDS: PANTOPRAZOLE 40 MG/10 ML VIAL IV SCH (10:22)
--- NOTE | 2020-07-11 13:02 | P.CONS ---
History of Present Illness - Reason for Consult Consult date: 07/11/20 Wound care - History of Present Illness This is a 75-year-old gentleman known to the wound care center with multiple ulcerations to the right lower extremity the left elbow the left amputation's site the right lateral ankle and the right dorsal foot. Patient has been utilizing honey alginate to the site. Review of Systems Review Of Systems: Constitutional: No fever, no chills, no night sweats. No weight change. No weakness, fatigue or lethargy. No daytime sleepiness. Integumentary:reports wounds, no lesions. No rash or pruritus. No unusual bruising. No change in hair or nails. Past Medical History Past Medical History: Coronary Artery Disease (CAD), COPD, Deep Vein Thrombosis (DVT), Hyperlipidemia, Pneumonia, Pulmonary Embolus (PE), Rheumatoid Arthritis (RA), Vascular Disorder Additional Past Medical History / Comment(s): History of pancreatitis, 2012 past medical record documents viral pericarditis but pt denies, gastritis, Fluid build up rt lung - previous chest tube - pt unsure what it is from, BOTTOM TEETH REMOVED 09-01-18, wounds in his right lower extremity, left [id number] stump and left elbow History of Any Multi-Drug Resistant Organisms: MRSA Year Discovered:: 11/23/18 MDRO Source:: KNEE Past Surgical History: Heart Catheterization With Stent, Joint Replacement, Orthopedic Surgery Additional Past Surgical History / Comment(s): Total L knee arthroplasty with a spacer in place, R total shoulder replaced, L ankle ORIF d/t fracture, EGD, left rotator cuff repair. right ankle sx, thoracentesis, chest tube rt lung, LT above the knee amputation Past Anesthesia/Blood Transfusion Reactions: No Reported Reaction Additional Past Anesthesia/Blood Transfusion Reaction / Comm: Pt states he has n ever recieved blood. Date of Last Stent Placement:: 12/10/16 Smoking Status: Former smoker - Past Family History Sister(s) Family Medical History: Cancer Additional Family Medical History / Comment(s): pt's father had ra, mother had 16 children was healthy most of her life age 93 from dementia. Mother Family Medical History: Dementia Additional Family Medical History / Comment(s): Mother from dementia at the age of 93 yrs. Father Family Medical History: Rheumatoid Arthritis (RA) Medications and Allergies Home Medications Medication Instructions Recorded Confirmed Type Rivaroxaban [Xarelto] 20 mg PO DAILY 02/14/20 07/10/20 History Gabapentin [Neurontin] 300 mg PO TID #9 cap 02/21/20 07/10/20 Rx oxyCODONE-APAP 10-325MG [Percocet 1 tab PO QID PRN #12 tab 02/21/20 07/10/20 Rx 10-325 mg] Ipratropium-Albuterol Nebulize 3 ml INHALATION RT-HS PRN 07/10/20 07/10/20 History [Duoneb 0.5 mg-3 mg/3 ml Soln] Morphine Sulfate ER [Ms Contin] 15 mg PO Q12H 07/10/20 07/10/20 History Nystatin 100,000 Unit/ml Susp 500,000 unit PO QID 07/10/20 07/10/20 History [Mycostatin Oral Susp] Therahoney 1 applic TOPICAL MOWEFR 07/10/20 07/10/20 History predniSONE 30 mg PO DAILY 07/10/20 07/10/20 History Allergies Allergy/AdvReac Type Severity Reaction Status Date / Time No Known Allergies Allergy Verified 07/10/20 19:29 Physical Exam Vitals: Vital Signs Temp Pulse Pulse Resp BP BP Pulse Ox 07/11/20 12:08 92 07/11/20 11:57 91 07/11/20 08:04 95 07/11/20 07:51 90 07/11/20 04:00 97.8 F 92 20 104/87 94 L 07/11/20 00:57 98 07/11/20 00:49 101 H 07/11/20 00:14 111 H 20 93/73 94 L 07/10/20 23:00 99 22 91/67 96 07/10/20 21:57 110 H 20 97/77 99 07/10/20 20:49 113 H 22 73/52 07/10/20 18:00 100.1 F H 136 H 22 72/41 98 Intake and Output 07/10/20 07/11/20 07/11/20 22:59 06:59 14:59 Other: Voiding Method Urinal Weight 79.379 kg 79.379 kg Wound #1 status is Open. Original cause of wound was Trauma. The wound is currently classified as a Full Thickness With Exposed Support Structures wound with etiologies of Rheumatoid and Auto-immune and is located on the Right Lower Leg. The wound measures 11.6cm length x 2.6cm width x 0.1cm depth; 23.688cm^2 area and 2.369cm^3 volume. There is Fat Layer (Subcutaneous Tissue) Exposed exposed. There is no tunneling or undermining noted. There is a medium amount of serous drainage noted. The wound margin is well defined and not attached to the wound base. There is large (67-100%) pink granulation within the wound bed. There is a small (1-33%) amount of necrotic tissue within the wound bed including Adherent Slough. The periwound skin appearance had no abnormalities noted for moisture. The periwound skin appearance exhibited: Scarring. The periwound skin appearance did not exhibit: Callus, Crepitus, Excoriation, Induration, Rash, Atrophie [place], Cyanosis, Ecchymosis, Hemosiderin Staining, Mottled, Pallor, Rubor, Erythema. Periwound temperature was noted as Cool/Cold. The periwound has tenderness on palpation. Wound #3 status is Open. Original cause of wound was Trauma. The wound is currently classified as a Full Thickness With Exposed Support Structures wound with etiologies of Rheumatoid and Auto-immune and is located on the Left Elbow. The wound measures 0.3cm length x 0.6cm width x 0.3cm depth; 0.141cm^2 area and 0.042cm^3 volume. There is bone and Fat Layer (Subcutaneous Tissue) Exposed exposed. There is no tunneling noted, however, there is undermining starting at 12:00 and ending at 12:00 with a maximum distance of 1.9cm. There is a small amount of serous drainage noted. The wound margin is well defined and not attached to the wound base. There is large (67-100%) pink granulation within the wound bed. There is a small (1-33%) amount of necrotic tissue within the wound bed including Adherent Slough. The periwound skin appearance had no abnormalities noted for color. The periwound skin appearance exhibited: Callus, Crepitus, Excoriation, Induration, Rash, Scarring, Dry/Scaly, Maceration. Periwound temperature was noted as No Abnormality. Wound #4 status is Open. Original cause of wound was Not Known. The wound is currently classified as a Full Thickness Without Exposed Support Structures wound with etiologies of Rheumatoid and Auto-immune and is located on the Left Amputation Site - Above Knee. The wound measures 0.5cm length x 0.6cm width x 0.2cm depth; 0.236cm^2 area and 0.047cm^3 volume. There is Fat Layer (Subcutaneous Tissue) Exposed exposed. There is no tunneling or undermining noted. There is a medium amount of serosanguineous drainage noted. The wound margin is indistinct and nonvisible. There is large (67-100%) pink granulation within the wound bed. There is a small (1-33%) amount of necrotic tissue within the wound bed including Adherent Slough. The periwound skin appearance exhibited: Scarring. The periwound skin appearance did not exhibit: Callus, Crepitus, Excoriation, Induration, Rash, Dry/Scaly, Maceration, Atrophie Mayra, Cyanosis, Ecchymosis, Hemosiderin Staining, Mottled, Pallor, Erythema. Periwound temperature was noted as No Abnormality. The periwound has tenderness on palpation. Wound #5 status is Open. Original cause of wound was Not Known. The wound is currently classified as a Full Thickness Without Exposed Support Structures wound with etiologies of Rheumatoid and Auto-immune and is located on the Right,Lateral Ankle. The wound measures 1.2cm length x 0.3cm width x 0.1cm depth; 0.283cm^2 area and 0.028cm^3 volume. There is Fat Layer (Subcutaneous Tissue) Exposed exposed. There is a medium amount of serous drainage noted. The wound margin is distinct with the outline attached to the wound base. There is small (1-33%) pink granulation within the wound bed. There is a large (67-100%) amount of necrotic tissue within the wound bed including Adherent Slough. The periwound skin appearance exhibited: Erythema. The periwound skin appearance did not exhibit: Callus, Crepitus, Excoriation, Induration, Rash, Scarring, Dry/Scaly, Maceration, Atrophie [place], Cyanosis, Ecchymosis, Hemosiderin Staining, Mottled, Pallor, Rubor. The surrounding wound skin color is noted with erythema which is circumferential. Periwound temperature was noted as No Abnormality. The periwound has tenderness on palpation. Wound #6 status is Open. Original cause of wound was Blister. The wound is currently classified as a Full Thickness Without Exposed Support Structures wound with etiologies of Rheumatoid and Auto-immune and is located on the Right,Dorsal Foot. The wound measures 8.2cm length x 7.4cm width x 0.7cm depth; 47.658cm^2 area and 33.361cm^3 volume. There is Fat Layer (Subcutaneous Tissue) Exposed exposed. There is no tunneling or undermining noted. There is a medium amount of serosanguineous drainage noted. Foul odor after cleansing was noted. The wound margin is flat and intact. There is large (67-100%) pink granulation within the wound bed. There is a small (1-33%) amount of necrotic tissue within the wound bed including Adherent Slough. The periwound skin appearance exhibited: Ecchymosis, Hemosiderin Staining, Erythema. The periwound skin appearance did not exhibit: Callus, Crepitus, Excoriation, Induration, Rash, Scarring, Dry/Scaly, Maceration, Atrophie [place], Cyanosis, Mottled, Pallor. The surrounding wound skin color is noted with erythema which is circumferential. Periwound temperature was noted as No Abnormality. The periwound has tenderness on palpation. Results CBC & Chem 7: 07/10/20 18:36 07/11/20 06:58 Labs: Abnormal Lab Results - Last 24 Hours (Table) 07/10/20 07/10/20 07/10/20 Range/Units 18:36 18:36 18:36 WBC 3.1 L (3.8-10.6) k/uL Hgb 10.4 L (13.0-17.5) gm/dL Hct 35.8 L (39.0-53.0) % MCV 69.3 L (80.0-100.0) fL MCH 20.2 L (25.0-35.0) pg MCHC 29.2 L (31.0-37.0) g/dL RDW 19.2 H (11.5-15.5) % Plt Count 458 H (150-450) k/uL Lymphocytes # (Manual) 0.68 L (1.0-4.8) k/uL Nucleated RBCs 24 H (0-0) /100 WBC APTT 20.8 L (22.0-30.0) sec Sodium 135 L (137-145) mmol/L BUN 21 H (9-20) mg/dL POC Glucose (mg/dL) (75-99) mg/dL Plasma Lactic Acid Harsh (0.7-2.0) mmol/L Alkaline Phosphatase 136 H (38-126) U/L Creatine Kinase 27 L (55-170) U/L Troponin I (0.000-0.034) ng/mL Total Protein 5.7 L (6.3-8.2) g/dL Albumin 2.7 L (3.5-5.0) g/dL 07/10/20 07/10/20 07/10/20 Range/Units 18:36 18:36 22:29 WBC (3.8-10.6) k/uL Hgb (13.0-17.5) gm/dL Hct (39.0-53.0) % MCV (80.0-100.0) fL MCH (25.0-35.0) pg MCHC (31.0-37.0) g/dL RDW (11.5-15.5) % Plt Count (150-450) k/uL Lymphocytes # (Manual) (1.0-4.8) k/uL Nucleated RBCs (0-0) /100 WBC APTT (22.0-30.0) sec Sodium (137-145) mmol/L BUN (9-20) mg/dL POC Glucose (mg/dL) (75-99) mg/dL Plasma Lactic Acid Harsh 4.0 H* 3.5 H* (0.7-2.0) mmol/L Alkaline Phosphatase (38-126) U/L Creatine Kinase (55-170) U/L Troponin I 0.055 H* (0.000-0.034) ng/mL Total Protein (6.3-8.2) g/dL Albumin (3.5-5.0) g/dL 07/10/20 07/11/20 07/11/20 Range/Units 22:50 01:01 01:01 WBC (3.8-10.6) k/uL Hgb (13.0-17.5) gm/dL Hct (39.0-53.0) % MCV (80.0-100.0) fL MCH (25.0-35.0) pg MCHC (31.0-37.0) g/dL RDW (11.5-15.5) % Plt Count (150-450) k/uL Lymphocytes # (Manual) (1.0-4.8) k/uL Nucleated RBCs (0-0) /100 WBC APTT (22.0-30.0) sec Sodium (137-145) mmol/L BUN (9-20) mg/dL POC Glucose (mg/dL) (75-99) mg/dL Plasma Lactic Acid Harsh 2.7 H* (0.7-2.0) mmol/L Alkaline Phosphatase (38-126) U/L Creatine Kinase (55-170) U/L Troponin I 0.097 H* 0.089 H* (0.000-0.034) ng/mL Total Protein (6.3-8.2) g/dL Albumin (3.5-5.0) g/dL 07/11/20 07/11/20 07/11/20 Range/Units 04:08 06:58 10:17 WBC (3.8-10.6) k/uL Hgb (13.0-17.5) gm/dL Hct (39.0-53.0) % MCV (80.0-100.0) fL MCH (25.0-35.0) pg MCHC (31.0-37.0) g/dL RDW (11.5-15.5) % Plt Count (150-450) k/uL Lymphocytes # (Manual) (1.0-4.8) k/uL Nucleated RBCs (0-0) /100 WBC APTT (22.0-30.0) sec Sodium (137-145) mmol/L BUN (9-20) mg/dL POC Glucose (mg/dL) 132 H (75-99) mg/dL Plasma Lactic Acid Harsh 3.8 H* 2.5 H* (0.7-2.0) mmol/L Alkaline Phosphatase (38-126) U/L Creatine Kinase (55-170) U/L Troponin I (0.000-0.034) ng/mL Total Protein (6.3-8.2) g/dL Albumin (3.5-5.0) g/dL 07/11/20 Range/Units 10:43 WBC (3.8-10.6) k/uL Hgb (13.0-17.5) gm/dL Hct (39.0-53.0) % MCV (80.0-100.0) fL MCH (25.0-35.0) pg MCHC (31.0-37.0) g/dL RDW (11.5-15.5) % Plt Count (150-450) k/uL Lymphocytes # (Manual) (1.0-4.8) k/uL Nucleated RBCs (0-0) /100 WBC APTT (22.0-30.0) sec Sodium (137-145) mmol/L BUN (9-20) mg/dL POC Glucose (mg/dL) (75-99) mg/dL Plasma Lactic Acid Harsh 2.2 H* (0.7-2.0) mmol/L Alkaline Phosphatase (38-126) U/L Creatine Kinase (55-170) U/L Troponin I (0.000-0.034) ng/mL Total Protein (6.3-8.2) g/dL Albumin (3.5-5.0) g/dL Assessment and Plan Plan: Assessment: 1.Non-pressure chronic ulcer of right calf with muscle involvement without evidence of necrosis 2.Non-pressure chronic ulcer of left thigh with muscle involvement without evidence of necrosis 3.Laceration without foreign body, right lower leg, initial encounter 4.Rheumatoid arthritis, unspecified 5.Chronic obstructive pulmonary disease with (acute) exacerbation 6.Disruption of wound, unspecified, initial encounter 7.Localized edema 8.Non-pressure chronic ulcer of other part of right foot with fat layer exposed 9.Laceration without foreign body, right foot, initial encounter Plan: Continue with honey gel to all ulcerations apply dry gauze rolled gauze and secure with paper tape. Patient will continue in the wound care center next Friday at 2:30 Thank you kindly for the consultation any questions please contact the wound care center
[2020-07-11 13:04] LABS: Glucose,Whole Blood 128 mg/dL (75-99)
[2020-07-11] MEDS: INSULIN ASPART (NovoLOG) 100 UNIT/ML VIAL SQ SCH ×3 (13:04→22:03)
[2020-07-11 14:16] LABS: Appearance,Urine Clear (Clear); Bilirubin,Urine Negative (Negative); Blood,Urine Negative (Negative); Color,Urine Yellow; Glucose,Urine (UA) Negative (Negative); Ketones,Urine Negative (Negative); Leukocyte Esterase,Urine Negative (Negative); Nitrite,Urine Negative (Negative); Protein,Urine Trace (Negative); Specific Gravity,Urine 1.019 (1.001-1.035); Urobilinogen,Urine <2.0 mg/dL (<2.0)
[2020-07-11 14:26] LABS: Amphetamine Screen,Urine Not Detected (NotDetected); Barbiturate Screen,Urine Not Detected (NotDetected); Benzodiazepines Screen,Urine Not Detected (NotDetected); Cocaine Screen,Urine Not Detected (NotDetected); Methadone Screen, Urine Not Detected (NotDetected); Opiate Screen,Urine Detected (NotDetected); Oxycodone Screen, Urine Detected (NotDetected); Phencyclidine Screen,Urine Not Detected (NotDetected); Tricyclic Antidepressant,Urine Not Detected (NotDetected); Urn Cannabinoid Scrn Detected (NotDetected)
--- NOTE | 2020-07-11 14:34 | P.CRDCN ---
History of Present Illness Consult date: 07/11/20 Reason for Consult (text): Elevated troponin Chief complaint: Cellulitis History of present illness: This is a 75-year-old gentleman who follows with Dr. Khoury in the office, he has a history of coronary artery disease with prior catheterization and stent placement, hypertension, hyperlipidemia, rheumatoid arthritis, history of pancreatitis, patient also has a history of left ejxig-zxg-vpay amputation, significant wounds to the right lower extremity for which she goes to the wound clinic, history of pulmonary embolism, COPD. Patient presented to the hospital on this occasion with a fairly sudden onset of redness swelling and pain in his right upper extremity. According to the , she was leaving the house to go to a doctor's appointment, they didnotice some swelling to the right upper extremity, by the time she returned home, patient was confused, and having severe pain in his right upper extremity. He came to the emergency room, temperature was 102.4 on arrival here, initially they felt he may have Katja of the right upper extremity, possible cellulitis. Cardiology was consulted because of abnormality in troponin. 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 Infarct is a change as compared with old exam. No hemorrhage. Chest x-ray shows pulmonary interstitial infiltrates increased as compared with prior exam. Mild heart failure not excluded. EKG shows a sinus tachycardia with PACs. Nonspecific ST- T wave changes. Blood pressure 110/80 with a heart rate 90 to low 196% on 3 L of oxygen. White blood cell count 3.1, hemoglobin 10.4, platelet count 458. Sodium 135, potassium 4.1, chloride 105, CO2 24, BUN 21, creatinine 0.9. Plasma lactic acid 3.5 on admission, 2.2 subsequent drop. Troponins 0.05, 0.09, 0.08. At the time of my examination, patient is resting comfortably in the emergency room, denies any chest pain, but does state that he gets some episodes of shortness of breath and chest discomfort intermittently. Past Medical History Past Medical History: Coronary Artery Disease (CAD), COPD, Deep Vein Thrombosis (DVT), Hyperlipidemia, Pneumonia, Pulmonary Embolus (PE), Rheumatoid Arthritis (RA), Vascular Disorder Additional Past Medical History / Comment(s): History of pancreatitis, 2012 past medical record documents viral pericarditis but pt denies, gastritis, Fluid build up rt lung - previous chest tube - pt unsure what it is from, BOTTOM TEETH REMOVED 09-01-18, wounds in his right lower extremity, left ofrbx-mou-moga stump and left elbow History of Any Multi-Drug Resistant Organisms: MRSA Date of last positivie culture/infection: 11/23/18 MDRO Source:: KNEE Past Surgical History: Heart Catheterization With Stent, Joint Replacement, Orthopedic Surgery Additional Past Surgical History / Comment(s): Total L knee arthroplasty with a spacer in place, R total shoulder replaced, L ankle ORIF d/t fracture, EGD, left rotator cuff repair. right ankle sx, thoracentesis, chest tube rt lung, LT above the knee amputation Past Anesthesia/Blood Transfusion Reactions: No Reported Reaction Additional Past Anesthesia/Blood Transfusion Reaction / Comment(s): Pt states he has never recieved blood. Date of Last Stent Placement:: 12/10/16 Smoking Status: Former smoker - Past Family History Sister(s) Family Medical History: Cancer Additional Family Medical History / Comment(s): pt's father had ra, mother had 16 children was healthy most of her life age 93 from dementia. Mother Family Medical History: Dementia Additional Family Medical History / Comment(s): Mother from dementia at the age of 93 yrs. Father Family Medical History: Rheumatoid Arthritis (RA) Medications and Allergies Home Medications Medication Instructions Recorded Confirmed Type Rivaroxaban [Xarelto] 20 mg PO DAILY 02/14/20 07/10/20 History Gabapentin [Neurontin] 300 mg PO TID #9 cap 02/21/20 07/10/20 Rx oxyCODONE-APAP 10-325MG [Percocet 1 tab PO QID PRN #12 tab 02/21/20 07/10/20 Rx 10-325 mg] Ipratropium-Albuterol Nebulize 3 ml INHALATION RT-HS PRN 07/10/20 07/10/20 History [Duoneb 0.5 mg-3 mg/3 ml Soln] Morphine Sulfate ER [Ms Contin] 15 mg PO Q12H 07/10/20 07/10/20 History Nystatin 100,000 Unit/ml Susp 500,000 unit PO QID 07/10/20 07/10/20 History [Mycostatin Oral Susp] Therahoney 1 applic TOPICAL MOWEFR 07/10/20 07/10/20 History predniSONE 30 mg PO DAILY 07/10/20 07/10/20 History Allergies Allergy/AdvReac Type Severity Reaction Status Date / Time No Known Allergies Allergy Verified 07/10/20 19:29 Physical Exam Vitals: Vital Signs Temp Pulse Pulse Resp BP BP Pulse Ox 07/11/20 13:53 97.5 F L 100 18 110/80 96 07/11/20 12:08 92 07/11/20 11:57 91 07/11/20 08:04 95 07/11/20 07:51 90 07/11/20 04:00 97.8 F 92 20 104/87 94 L 07/11/20 00:57 98 07/11/20 00:49 101 H 07/11/20 00:14 111 H 20 93/73 94 L 07/10/20 23:00 99 22 91/67 96 07/10/20 21:57 110 H 20 97/77 99 07/10/20 20:49 113 H 22 73/52 07/10/20 18:00 100.1 F H 136 H 22 72/41 98 Intake and Output 07/10/20 07/11/20 07/11/20 22:59 06:59 14:59 Other: Voiding Method Urinal Weight 79.379 kg 79.379 kg PHYSICAL EXAMINATION: GENERAL: 75-year-old gentleman in no acute distress at the time of my examination HEENT: Head is atraumatic, normocephalic. Pupils equal, round. Sclera anicteric. Conjunctiva are clear. Mucous membranes of the mouth are moist. Neck is supple. There is no elevated jugular venous pressure. No carotid bruit is heard. HEART EXAMINATION: Heart S1 S2 1 systolic murmur is heard CHEST EXAMINATION: Reveal crackles to the bases bilaterally ABDOMEN: Soft, nontender. Bowel sounds are heard. No organomegaly noted. EXTREMITIES:[ 1+ peripheral pulse to the right lower extremity, there is edema, erythema, and mild swelling. Patient has a left czexz-xam-hbco amputation. Significant redness and swelling noted to the right upper extremity NEUROLOGIC patient is awake, alert and oriented 3 . Results 07/10/20 18:36 07/11/20 06:58 Cardiac Enzymes 07/10/20 07/10/20 07/10/20 Range/Units 18:36 18:36 22:50 AST 24 (17-59) U/L Troponin I 0.055 H* 0.097 H* (0.000-0.034) ng/mL 07/11/20 Range/Units 01:01 AST (17-59) U/L Troponin I 0.089 H* (0.000-0.034) ng/mL Coagulation 07/10/20 Range/Units 18:36 PT 10.1 (9.0-12.0) sec APTT 20.8 L (22.0-30.0) sec CBC 07/10/20 Range/Units 18:36 WBC 3.1 L (3.8-10.6) k/uL RBC 5.17 (4.30-5.90) m/uL Hgb 10.4 L (13.0-17.5) gm/dL Hct 35.8 L (39.0-53.0) % Plt Count 458 H (150-450) k/uL Comprehensive Metabolic Panel 07/10/20 07/11/20 Range/Units 18:36 06:58 Sodium 135 L (137-145) mmol/L Potassium 4.1 (3.5-5.1) mmol/L Chloride 105 (98-107) mmol/L Carbon Dioxide 24 (22-30) mmol/L BUN 21 H (9-20) mg/dL Creatinine 0.90 0.88 (0.66-1.25) mg/dL Glucose 91 (74-99) mg/dL Calcium 8.6 (8.4-10.2) mg/dL AST 24 (17-59) U/L ALT 19 (4-49) U/L Alkaline Phosphatase 136 H (38-126) U/L Total Protein 5.7 L (6.3-8.2) g/dL Albumin 2.7 L (3.5-5.0) g/dL Current Medications Generic Name Dose Route Start Last Admin Trade Name Freq PRN Reason Stop Dose Admin Albuterol/Ipratropium 3 ml 07/11/20 00:00 07/11/20 11:55 Ipratropium-Albuterol 3 Ml Neb INHALATION 3 ml Q4HR SURYA Administration Gabapentin 300 mg 07/11/20 09:00 07/11/20 10:22 Gabapentin 300 Mg Cap PO 300 mg TID SURYA Administration Hydrocortisone Sodium Succinate 100 mg 07/11/20 00:00 07/11/20 10:21 Hydrocortisone Succinate 100 Mg/2 Ml Vial IV 100 mg Q8HR SURYA Administration Vancomycin HCl 1,500 mg/ 250 mls @ 125 mls/hr 07/11/20 09:00 07/11/20 10:22 Sodium Chloride IVPB 125 mls/hr Q12HR SURYA Administration Sodium Chloride 1,000 mls @ 130 mls/hr 07/10/20 22:45 07/11/20 10:20 Saline 0.9% IV 130 mls/hr .Q7H42M SURYA Administration Piperacillin Sod/Tazobactam 100 mls @ 25 mls/hr 07/11/20 05:00 07/11/20 13:09 Sod 3.375 gm/ Sodium Chloride IVPB 25 mls/hr Q8H SURYA Administration Insulin Aspart 0 unit 07/11/20 12:30 07/11/20 13:04 Insulin Aspart (Novolog) 100 Unit/Ml Vial SQ Not Given ACHS [facility] Protocol Morphine Sulfate 15 mg 07/11/20 09:00 07/11/20 09:44 Morphine Sulfate Er 15 Mg Tablet PO 15 mg Q12H SURYA Administration Nystatin 500,000 unit 07/11/20 09:00 07/11/20 13:09 Nystatin 100,000 Unit/Ml Susp 500,000 Unit/5 Ml Cup PO 500,000 unit QID SURYA Administration Oxycodone/Acetaminophen 1 each 07/10/20 22:44 07/11/20 13:48 Oxycodone-Apap 10-325mg 1 Each Tab PO 1 each QID PRN Administration Pain Pantoprazole Sodium 40 mg 07/11/20 09:00 07/11/20 10:22 Pantoprazole 40 Mg/10 Ml Vial IV 40 mg DAILY SURYA Administration Rivaroxaban 20 mg 07/11/20 09:00 07/11/20 10:22 Rivaroxaban 20 Mg Tab PO 20 mg DAILY SURYA Administration Intake and Output 07/10/20 07/11/20 07/11/20 22:59 06:59 14:59 Other: Voiding Method Urinal Weight 79.379 kg 79.379 kg 07/10/20 18:36 07/11/20 06:58 EKG Interpretations (text) EKG shows a sinus tachycardia with occasional PACs. Assessment and Plan Plan: Assessment and plan #1 fairly acute onset of redness and swelling of the right upper extremity, possible cellulitis. Evidence of a possible sepsis, temperature 102 on admission here lactic acid 3.5 on admission #2 abnormal troponin, no significant rise and fall pattern to suggest acute coronary syndrome. #3 coronary artery disease with prior stent placement #4 hypertension #5 hyperlipidemia #6 COPD #7 rheumatoid arthritis #8 nicotine dependence history #9 history of PE for which the patient is on Xarelto Plan We will obtain an echocardiogram with Doppler study. Continue IV antibiotics. IV fluids. Further recommendations to follow. DNP note has been reviewed, I agree with a documented findings and plan of care. Patient was seen and examined.
--- NOTE | 2020-07-11 17:22 | ECHOF ---
Referral Reason:abn trop MEASUREMENTS -------- HEIGHT: 170.2 cm WEIGHT: 79.4 kg BP: 110/80 IVSd: 1.2 cm (0.6 - 1.1) LVIDd: 4.0 cm (3.9 - 5.3) LVPWd: 1.2 cm (0.6 - 1.1) IVSs: 1.6 cm LVIDs: 2.8 cm LVPWs: 1.7 cm LA Diam: 3.0 cm (2.7 - 3.8) Ao Diam: 3.0 cm (2.0 - 3.7) AV Cusp: 2.2 cm (1.5 - 2.6) MV EXCURSION: 18.048 mm (> 18.000) MV EF SLOPE: 92 mm/s (70 - 150) EPSS: 0.6 cm MV E Laurent: 0.60 m/s MV DecT: 147 ms MV A Laurent: 0.90 m/s MV E/A Ratio: 0.67 FINDINGS -------- This was a technically difficult study with suboptimal views. The left ventricular size is normal. There is mild concentric left ventricular hypertrophy. Overa ll left ventricular systolic function is low-normal with, an EF between 50 - 55 %. Septal wall anahi on is delayed, and consistent with conduction delay/bundle branch block. The RV was not well visualized. The left atrial size is normal. The right atrium was not well visualized. 5.0mg of Lumason was utilized for enhancement of images Interatrial and interventricular septum intact. There is no evidence of aortic regurgitation. There is no evidence of aortic stenosis. No mitral regurgitation. The tricuspid valve was not well visualized. Mild tricuspid regurgitation present. There is no ev idence of pulmonary hypertension. The right ventricular systolic pressure, as measured by Doppler, is {RVSP}. The pulmonic valve was not well visualized. The aortic root size is normal. IVC Not well visulized. There is no pericardial effusion. CONCLUSIONS -------- 1. The left ventricular size is normal. 2. There is mild concentric left ventricular hypertrophy. 3. Overall left ventricular systolic function is low-normal with, an EF between 50 - 55 %. 4. Septal wall motion is delayed, and consistent with conduction delay/bundle branch block. 5. Mild tricuspid regurgitation present. CARD FOLDER: Kim Chavez RDCS
[2020-07-11 20:25] LABS: Glucose,Whole Blood 328 mg/dL (75-99)
[2020-07-11] MEDS ORDERED: ATORVASTATIN 20 MG TAB PO SCH (20:30)
--- NOTE | 2020-07-11 20:51 | P.CNNES ---
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 The patient presents with an onset of confusion at 2-3 at p.m. today. According to patient he denies any history of strokes. He states that he's been on Xarelto 20 mg daily for the last 6 months and he been compliant with medication. He states that he does take Lipitor but not sure of the dose. He is not on any aspirin or Plavix. Denies any visual field defect. He does complain of diz ziness that has been going on for last couple months and it's mostly positional. He says that when he is resting he doesn't have any dizziness. He denies of any nausea any vomiting. Denies of any ringing in the ear or hearing loss. Denies of any head trauma. Denies off any slurring the speech or any focal weakness. Upon presentation the patient's initial vitals was blood pressure of 72/41, h eart rate of 136, temperature of 100.1 Fahrenheit oral, respiratory was 22, pulse ox of 98 on 4 L of nasal cannula. Per ED note it is mentioned that his temperature was 102.4 and the heart rate was 150. Heart rate had decreased to 1:30 after 800 cc of IV fluid. Also there is an assumption that the there is Katja over the right upper extremity and it looks at edematous and erythematous. Patient had CT of the head and the ED and showed left occipital lobe infarct that appears old or subacute. Upon reviewing the CT of the head I feel like this is old. EKG was reported as sinus tachycardia with premature supraventricular complex. Ventricular rate of 143. Nonspecific ST abnormality. 2-D echo was reported as mild concentric left ventricular hypertrophy. Ejection fraction of 50-55%. Septal wall motion is delayed and consistent with conduction delay/bundle branch block. Mild tricuspid regurgitation present. Chest x-ray was reported as pulmonary interstitial infiltrate increase compared to old exam and that could relate to fibrosis. Mild heart failure not excluded. There is pleural reaction at the posterolateral lung base and the mild fluid unchanged. Review of Systems Review of system: The 12 point system was reviewed and apparent positive and negative per HPI. Past Medical History Past Medical History: Coronary Artery Disease (CAD), COPD, Deep Vein Thrombosis (DVT), Hyperlipidemia, Pneumonia, Pulmonary Embolus (PE), Rheumatoid Arthritis (RA), Vascular Disorder Additional Past Medical History / Comment(s): History of pancreatitis, 2012 past medical record documents viral pericarditis but pt denies, gastritis, Fluid build up rt lung - previous chest tube - pt unsure what it is from, BOTTOM TEETH REMOVED 09-01-18, wounds in his right lower extremity, left iupwn-iyp-wlmc stump and left elbow History of Any Multi-Drug Resistant Organisms: MRSA Date of last positivie culture/infection: 11/23/18 MDRO Source:: KNEE Past Surgical History: Heart Catheterization With Stent, Joint Replacement, Orthopedic Surgery Additional Past Surgical History / Comment(s): Total L knee arthroplasty with a spacer in place, R total shoulder replaced, L ankle ORIF d/t fracture, EGD, left rotator cuff repair. 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 Date of Last Stent Placement:: 12/10/16 Smoking Status: Former smoker - Past Family History Sister(s) Family Medical History: Cancer Additional Family Medical History / Comment(s): pt's father had ra, mother had 16 children was healthy most of her life age 93 from dementia. Mother Family Medical History: Dementia Additional Family Medical History / Comment(s): Mother from dementia at the age of 93 yrs. Father Family Medical History: Rheumatoid Arthritis (RA) Medications and Allergies Home Medications Medication Instructions Recorded Confirmed Type Rivaroxaban [Xarelto] 20 mg PO DAILY 02/14/20 07/10/20 History Gabapentin [Neurontin] 300 mg PO TID #9 cap 02/21/20 07/10/20 Rx oxyCODONE-APAP 10-325MG [Percocet 1 tab PO QID PRN #12 tab 05/11/20 09/28/20 Rx 10-325 mg] Ipratropium-Albuterol Nebulize 3 ml INHALATION RT-HS PRN 07/10/20 07/10/20 History [Duoneb 0.5 mg-3 mg/3 ml Soln] Morphine Sulfate ER [Ms Contin] 15 mg PO Q12H 07/10/20 07/10/20 History Nystatin 100,000 Unit/ml Susp 500,000 unit PO QID 07/10/20 07/10/20 History [Mycostatin Oral Susp] Therahoney 1 applic TOPICAL MOWEFR 07/10/20 07/10/20 History predniSONE 30 mg PO DAILY 07/10/20 07/10/20 History Allergies Allergy/AdvReac Type Severity Reaction Status Date / Time No Known Allergies Allergy Verified 07/10/20 19:29 Physical Examination - Vital Signs Vital Signs: Vital Signs Temp Pulse Pulse Resp BP BP Pulse Ox 07/11/20 19:50 94 07/11/20 18:00 98.1 F 90 18 120/68 98 07/11/20 16:00 97.6 F 98 20 103/70 93 L 07/11/20 15:05 92 07/11/20 14:53 93 07/11/20 13:53 97.5 F L 100 18 110/80 96 07/11/20 12:08 92 07/11/20 12:00 97.4 F L 87 18 110/80 95 07/11/20 11:57 91 07/11/20 08:04 95 07/11/20 08:00 89 18 101/76 96 07/11/20 07:51 90 07/11/20 04:00 97.8 F 92 20 104/87 94 L 07/11/20 00:57 98 07/11/20 00:49 101 H 07/11/20 00:14 111 H 20 93/73 94 L 07/10/20 23:00 99 22 91/67 96 07/10/20 21:57 110 H 20 97/77 99 07/10/20 20:49 113 H 22 73/52 Intake and Output 07/11/20 07/11/20 07/11/20 06:59 14:59 22:59 Intake Total 130 960 Output Total 240 400 Balance -110 560 Intake: Intake, IV Titration 130 960 Amount Piperacillin-Tazobactam 3 50 .375 gm In Sodium Chloride 0.9% 100 ml @ 25 mls/hr IVPB Q8H [facility] Rx#: [id number] Sodium Chloride 0.9% 1, 130 910 000 ml @ 130 mls/hr IV . Q7H42M [facility] Rx#:[id number] Output: Urine 240 400 Other: Voiding Method Urinal # Voids 0 Weight 79.379 kg GENERAL: The patient is lying in bed and is not in acute distress. CHEST: The heart rate is regular rate rhythm. No murmurs to auscultation. No carotid bruit bilaterally. LUNG: Clear to auscultation bilaterally no wheezing noted throughout. Not labored breathing. ABDOMEN/GI: Bowel sounds present in all 4 quadrants. No tenderness to palpation throughout. NEUROLOGICAL: Higher mental function: The patient is awake, alert, oriented to self, place and time. Patient is following commands. No aphasia and no neglect. Cranial nerves: The pupils are round, equal and reactive to light and accomm odation. Visual bass are full to confrontation throughout (this was checked 4 times). Extraocular movement is intact no nystagmus is noted. Facial sensation is normal to touch throughout. The facial strength is normal throughout. Hearing is normal bilaterally to hand rub. Tongue is midline and moved [id number] without any difficulty. No dysarthria is noted. Shoulder shrug is normal bilaterally. Motor: Gait is defered. The strength is 5 over 5 of bilateral upper extremities While bilateral lower extremities unable to assess since wrapped because of infection. Is able to lift right lower extremity above gravity without drift. Left lower extremity is amputated above knee and above to move it proximally. Cerebellum: Normal finger to nose bilaterally. Sensation: Sensation is normal to touch throughout. Reflexes (right/left): 2+ throughout bilateral upper extremities and not assessed lower extremities. Plantars: Not assessed since right lower extremity is wrapped while left there is amputation of extremity. Results Patient ammonia level is less than 9. Patient lactic acid to the venous system is 4. 0 repeat it was 3.5. Initial troponin is 0.055. White blood cell 3.1 Urinalysis is negative for UTI Urine drug screen is positive for urine opiates as well positive for oxycodone and marijuana. alcohol level is less than 10 - Laboratory Findings CBC and BMP: 07/10/20 18:36 09/29/20 06:58 Abnormal Lab Findings: Abnormal Labs 07/10/20 07/10/20 07/10/20 18:36 18:36 18:36 WBC 3.1 L Hgb 10.4 L Hct 35.8 L MCV 69.3 L MCH 20.2 L MCHC 29.2 L RDW 19.2 H Plt Count 458 H Lymphocytes # (Manual) 0.68 L Nucleated RBCs 24 H APTT 20.8 L Sodium 135 L BUN 21 H POC Glucose (mg/dL) Plasma Lactic Acid Harsh Alkaline Phosphatase 136 H Creatine Kinase 27 L Troponin I Total Protein 5.7 L Albumin 2.7 L Urine Protein Urine Opiates Screen Ur Oxycodone Screen U Marijuana (THC) Screen 07/10/20 07/10/20 07/10/20 18:36 18:36 22:29 WBC Hgb Hct MCV MCH MCHC RDW Plt Count Lymphocytes # (Manual) Nucleated RBCs APTT Sodium BUN POC Glucose (mg/dL) Plasma Lactic Acid Harsh 4.0 H* 3.5 H* Alkaline Phosphatase Creatine Kinase Troponin I 0.055 H* Total Protein Albumin Urine Protein Urine Opiates Screen Ur Oxycodone Screen U Marijuana (THC) Screen 07/10/20 07/11/20 07/11/20 22:50 01:01 01:01 WBC Hgb Hct MCV MCH MCHC RDW Plt Count Lymphocytes # (Manual) Nucleated RBCs APTT Sodium BUN POC Glucose (mg/dL) Plasma Lactic Acid Harsh 2.7 H* Alkaline Phosphatase Creatine Kinase Troponin I 0.097 H* 0.089 H* Total Protein Albumin Urine Protein Urine Opiates Screen Ur Oxycodone Screen U Marijuana (THC) Screen 07/11/20 07/11/20 07/11/20 04:08 06:58 10:17 WBC Hgb Hct MCV MCH MCHC RDW Plt Count Lymphocytes # (Manual) Nucleated RBCs APTT Sodium BUN POC Glucose (mg/dL) 132 H Plasma Lactic Acid Harsh 3.8 H* 2.5 H* Alkaline Phosphatase Creatine Kinase Troponin I Total Protein Albumin Urine Protein Urine Opiates Screen Ur Oxycodone Screen U Marijuana (THC) Screen 07/11/20 07/11/20 07/11/20 10:43 13:00 13:52 WBC Hgb Hct MCV MCH MCHC RDW Plt Count Lymphocytes # (Manual) Nucleated RBCs APTT Sodium BUN POC Glucose (mg/dL) 128 H Plasma Lactic Acid Harsh 2.2 H* Alkaline Phosphatase Creatine Kinase Troponin I Total Protein Albumin Urine Protein Trace H Urine Opiates Screen Detected H Ur Oxycodone Screen Detected H U Marijuana (THC) Screen Detected H 07/11/20 07/11/20 14:27 18:57 WBC Hgb Hct MCV MCH MCHC RDW Plt Count Lymphocytes # (Manual) Nucleated RBCs APTT Sodium BUN POC Glucose (mg/dL) Plasma Lactic Acid Harsh 3.0 H* 3.5 H* Alkaline Phosphatase Creatine Kinase Troponin I Total Protein Albumin Urine Protein Urine Opiates Screen Ur Oxycodone Screen U Marijuana (THC) Screen Assessment and Plan Assessment: Old occipital stroke Toxic metabolic encephalopathy Peripheral vertigo Elevated troponin 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 Placed the patient on Lipitor 40 mg daily. I ordered carotid duplex. Cardiac monitoring. I ordered TSH, hemoglobin A1c and lipid panel. Regarding his peripheral vertigo I will place him on meclizine to 15 mg twice a day Thank for the consult. Sb Tesfaye M.D. Neuro-hospitalist Time with Patient: Greater than 30
[2020-07-11] MEDS: ATORVASTATIN 40 MG TAB PO SCH (21:23)
[2020-07-11] MEDS: ASPIRIN 81 MG PO SCH (21:23)
[2020-07-11] MEDS: AMPICILLIN-SULBACTAM 3 GM in SODIUM CHLORIDE 0.9% 100 ML IVPB SCH (21:25)
--- NOTE | 2020-07-11 22:44 | P.HPIM ---
History of Present Illness H&P Date: 07/11/20 Chief Complaint: AMS, R arm pain Fletcher Sanabria is a 75 yo M with PMH of CAD, T2DM, RA on prednisone, hx PE on xarelto, hx AKA who presented to the ED with confusion and R arm swelling and pain. Pt states his arm has been more painful for at least a week but complains of chronic pain in his ribs as well as lumbar compression fractures. His family is concerned because he is sleeping more, confused, less responsive. Pt denies any obvious cuts or scratches on the arm. On presentation he was febrile and tachcyardic with BP 72/41, WBC 3.1, lactic 4.0, trop 0.055. CXR with interstital prominence, CT head negative. Review of Systems All systems: negative Constitutional: Reports malaise, Reports sweats, Reports weakness, Denies chills, Denies fever Eyes: denies blurred vision, denies pain Ears, nose, mouth and throat: Denies headache, Denies sore throat Cardiovascular: Denies chest pain, Denies shortness of breath Respiratory: Denies cough Gastrointestinal: Denies abdominal pain, Denies diarrhea, Denies nausea, Denies vomiting Musculoskeletal: Denies myalgias Integumentary: Reports as per HPI, Reports color changes, Reports rash, Reports wounds, Denies pruritus Neurological: Denies numbness, Denies weakness Psychiatric: Denies anxiety, Denies depression Endocrine: Denies fatigue, Denies weight change Past Medical History Past Medical History: Coronary Artery Disease (CAD), COPD, Deep Vein Thrombosis (DVT), Hyperlipidemia, Pneumonia, Pulmonary Embolus (PE), Rheumatoid Arthritis (RA), Vascular Disorder Additional Past Medical History / Comment(s): History of pancreatitis, 2012 past medical record documents viral pericarditis but pt denies, gastritis, Fluid build up rt lung - previous chest tube - pt unsure what it is from, BOTTOM TEETH REMOVED 09-01-18, wounds in his right lower extremity, left rnehb-yyn-nisk stump and left elbow History of Any Multi-Drug Resistant Organisms: MRSA Date of last positivie culture/infection: 11/23/18 MDRO Source:: KNEE Past Surgical History: Heart Catheterization With Stent, Joint Replacement, Orthopedic Surgery Additional Past Surgical History / Comment(s): Total L knee arthroplasty with a spacer in place, R total shoulder replaced, L ankle ORIF d/t fracture, EGD, left rotator cuff repair. 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 Date of Last Stent Placement:: 12/10/16 Smoking Status: Former smoker - Past Family History Sister(s) Family Medical History: Cancer Additional Family Medical History / Comment(s): pt's father had ra, mother had 16 children was healthy most of her life age 93 from dementia. Mother Family Medical History: Dementia Additional Family Medical History / Comment(s): Mother from dementia at the age of 93 yrs. Father Family Medical History: Rheumatoid Arthritis (RA) Medications and Allergies Home Medications Medication Instructions Recorded Confirmed Type Rivaroxaban [Xarelto] 20 mg PO DAILY 02/14/20 07/10/20 History Gabapentin [Neurontin] 300 mg PO TID #9 cap 02/21/20 07/10/20 Rx oxyCODONE-APAP 10-325MG [Percocet 1 tab PO QID PRN #12 tab 02/21/20 07/10/20 Rx 10-325 mg] Ipratropium-Albuterol Nebulize 3 ml INHALATION RT-HS PRN 07/10/20 07/10/20 History [Duoneb 0.5 mg-3 mg/3 ml Soln] Morphine Sulfate ER [Ms Contin] 15 mg PO Q12H 07/10/20 07/10/20 History Nystatin 100,000 Unit/ml Susp 500,000 unit PO QID 07/10/20 07/10/20 History [Mycostatin Oral Susp] Therahoney 1 applic TOPICAL MOWEFR 07/10/20 07/10/20 History predniSONE 30 mg PO DAILY 07/10/20 07/10/20 History Allergies Allergy/AdvReac Type Severity Reaction Status Date / Time No Known Allergies Allergy Verified 07/10/20 19:29 Physical Exam Vitals: Vital Signs Temp Pulse Pulse Resp BP BP Pulse Ox 07/11/20 19:59 94 07/11/20 19:50 94 07/11/20 18:00 98.1 F 90 18 120/68 98 07/11/20 16:00 97.6 F 98 20 103/70 93 L 07/11/20 15:05 92 07/11/20 14:53 93 07/11/20 13:53 97.5 F L 100 18 110/80 96 07/11/20 12:08 92 07/11/20 12:00 97.4 F L 87 18 110/80 95 07/11/20 11:57 91 07/11/20 08:04 95 07/11/20 08:00 89 18 101/76 96 07/11/20 07:51 90 07/11/20 04:00 97.8 F 92 20 104/87 94 L 07/11/20 00:57 98 07/11/20 00:49 101 H 07/11/20 00:14 111 H 20 93/73 94 L 07/10/20 23:00 99 22 91/67 96 Intake and Output 07/11/20 07/11/20 07/11/20 06:59 14:59 22:59 Intake Total 130 960 Output Total 240 400 Balance -110 560 Intake: Intake, IV Titration 130 960 Amount Piperacillin-Tazobactam 3 50 .375 gm In Sodium Chloride 0.9% 100 ml @ 25 mls/hr IVPB Q8H SURYA Rx#: [id number] Sodium Chloride 0.9% 1, 130 910 000 ml @ 130 mls/hr IV . Q7H42M SURYA Rx#:[id number] Output: Urine 240 400 Other: Voiding Method Urinal # Voids 0 Weight 79.379 kg General: well nourished, well developed, NAD. Vitals reviewed Eyes: PERRL, EOMI, conjunctiva normal HENT: normocephalic, mucus membranes moist Neck: supple, no JVD Lungs: normal respiratory effort, no wheezes or rales CV: Regular rate and rhythm, no murmur. Peripheral pulses 1+ Abdomen: soft, nondistended, no organomegaly Lymph: no cervical or axillary LAD Skin: warm and dry. R shoulder and RUE with erythema and induration, tenderness to palpation Neuro: A&Ox3, normal mood and affect Results CBC & Chem 7: 07/10/20 18:36 07/11/20 06:58 Labs: Abnormal Lab Results - Last 24 Hours (Table) 07/10/20 07/10/2020 Range/Units 22:29 22:50 01:01 POC Glucose (mg/dL) (75-99) mg/dL Plasma Lactic Acid Harsh 3.5 H* (0.7-2.0) mmol/L Troponin I 0.097 H* 0.089 H* (0.000-0.034) ng/mL Urine Protein (Negative) Urine Opiates Screen (NotDetected) Ur Oxycodone Screen (NotDetected) U Marijuana (THC) Screen (NotDetected) 07/11/20 07/11/20 07/11/20 Range/Units 01:01 04:08 06:58 POC Glucose (mg/dL) (75-99) mg/dL Plasma Lactic Acid Harsh 2.7 H* 3.8 H* 2.5 H* (0.7-2.0) mmol/L Troponin I (0.000-0.034) ng/mL Urine Protein (Negative) Urine Opiates Screen (NotDetected) Ur Oxycodone Screen (NotDetected) U Marijuana (THC) Screen (NotDetected) 07/11/20 07/11/20 07/11/20 Range/Units 10:17 10:43 13:00 POC Glucose (mg/dL) 132 H 128 H (75-99) mg/dL Plasma Lactic Acid Harsh 2.2 H* (0.7-2.0) mmol/L Troponin I (0.000-0.034) ng/mL Urine Protein (Negative) Urine Opiates Screen (NotDetected) Ur Oxycodone Screen (NotDetected) U Marijuana (THC) Screen (NotDetected) 07/11/20 07/11/20 07/11/20 Range/Units 13:52 14:27 18:57 POC Glucose (mg/dL) (75-99) mg/dL Plasma Lactic Acid Harsh 3.0 H* 3.5 H* (0.7-2.0) mmol/L Troponin I (0.000-0.034) ng/mL Urine Protein Trace H (Negative) Urine Opiates Screen Detected H (NotDetected) Ur Oxycodone Screen Detected H (NotDetected) U Marijuana (THC) Screen Detected H (NotDetected) 07/11/20 Range/Units 20:24 POC Glucose (mg/dL) 328 H (75-99) mg/dL Plasma Lactic Acid Harsh (0.7-2.0) mmol/L Troponin I (0.000-0.034) ng/mL Urine Protein (Negative) Urine Opiates Screen (NotDetected) Ur Oxycodone Screen (NotDetected) U Marijuana (THC) Screen (NotDetected) Microbiology - Last 24 Hours (Table) 07/10/20 18:36 Blood Culture - Final Blood 07/10/20 18:36 Blood Culture Gram Stain - Preliminary Blood Assessment and Plan (1) Sepsis due to Gram negative bacteria Current Visit: Yes Status: Acute Code(s): A41.50 - GRAM-NEGATIVE SEPSIS, UNSPECIFIED SNOMED Code(s): 123296281 (2) Metabolic encephalopathy Current Visit: Yes Status: Acute Code(s): G93.41 - METABOLIC ENCEPHALOPATHY SNOMED Code(s): 77564570 (3) Cellulitis of right arm Current Visit: Yes Status: Acute Code(s): L03.113 - CELLULITIS OF RIGHT UPPER LIMB SNOMED Code(s): 844142024 (4) Elevated troponin Current Visit: Yes Status: Acute Code(s): R79.89 - OTHER SPECIFIED ABNORMAL FINDINGS OF BLOOD CHEMISTRY SNOMED Code(s): 940211333 (5) COPD (chronic obstructive pulmonary disease) Current Visit: No Status: Chronic Code(s): J44.9 - CHRONIC OBSTRUCTIVE PULMONARY DISEASE, UNSPECIFIED SNOMED Code(s): 18247096 (6) Rheumatoid arthritis Current Visit: No Status: Chronic Code(s): M06.9 - RHEUMATOID ARTHRITIS, UNSPECIFIED SNOMED Code(s): 81424741 Plan: 1. Sepsis, suspect due to RUE cellulitis. Culture positive for gram negative kranthi. Continue unasyn and empiric vancomycin. Continue to narrow abx based on culture 2. Altered mental status. Suspect metabolic encephalopathy. Neurology consult with new aphasia 3. T2DM. Continue metformin. Sliding scale 4. Elevated troponin. Suspect demand ischemia. Cardiology consult 5. RA. Continue solucortef and pain control 6. Hx PE. Continue xarelto
--- NOTE | 2020-07-11 23:49 | US ---
EXAMINATION TYPE: US carotid duplex BILAT DATE OF EXAM: 07/11/2020 COMPARISON: CT CLINICAL HISTORY: stroke: occipital. Stroke: occipital per order. Hx smoker. EXAM MEASUREMENTS: RIGHT: Peak Systolic Velocity (PSV) cm/sec ----- Right CCA: 57.2 ----- Right ICA: 53.6 ----- Right ECA: 79.7 ICA/CCA ratio: 0.9 RIGHT: End Diastole cm/sec ----- Right CCA: 19.7 ----- Right ICA: 15.2 ----- Right ECA: 14.2 LEFT: Peak Systolic Velocity (PSV) cm/sec ----- Left CCA: 62.2 ----- Left ICA: 103.9 ----- Left ECA: 78.4 ICA/CCA ratio: 1.7 LEFT: End Diastole cm/sec ----- Left CCA: 17.1 ----- Left ICA: 37.6 ----- Left ECA: 12.4 VERTEBRALS (direction of flow): Right Vertebral: Antegrade Left Vertebral: Not visualized. Rhythm: Normal Intimal thickening seen bilaterally. No elevated velocities at this time. Left ICA dives posterior at a sharp angle. Left vertebral artery not visualized at this time by ultrasound. Limited study due to patient's short neck. IMPRESSION: There is antegrade flow in the right vertebral artery. We could not show flow in the left vertebral a rtery. Exam was limited. The images and measurements suggest less than 20% stenosis in both internal carotid arteries. Criteria for Assigning % of Stenosis / Diameter reduction (Estimation based on the indirect measurements of the internal carotid artery velocities (ICA PSV). 1. Normal (no stenosis)=ICA PSV < 125 cm/s: ratio < 2.0: ICA EDV<40 cm/s. 2. Less than 50% stenosis=ICA PSV < 125 cm/s: ratio < 2.0: ICA EDV<40 cm/s. 3. 50 to 69% stenosis=ICA PSV of 125 to 230 cm/s: ration 2.0 ? 4.0: ICA EDV 40-100 cm/s. 4. Greater than 70% stenosis to near occlusion= ICA PSV > 230 cm/s: ratio > 4.0: ICA EDV > 100 cm/s. 5. Near occlusion= ICA PSV velocities may be low or undetectable: variable ratio and ICA EDV. 6. Total occlusion=unable to detect flow.
[2020-07-11] MEDS: MECLIZINE 12.5 MG TAB PO SCH (23:54)
[2020-07-12] MEDS: AMPICILLIN-SULBACTAM 3 GM in SODIUM CHLORIDE 0.9% 100 ML IVPB SCH ×4 (03:05→21:41)
[2020-07-12] MEDS: SODIUM CHLORIDE 0.9% 1,000 ML IV SCH ×4 (03:05→21:42)
[2020-07-12] MEDS: INSULIN ASPART (NovoLOG) 100 UNIT/ML VIAL SQ SCH ×4 (06:28→21:42)
[2020-07-12 06:35] LABS: Glucose,Whole Blood 168 mg/dL (75-99)
[2020-07-12 08:24] LABS: African American GFR (CKD) >90 (>60 ml/min/1.73 sqM); Anion Gap 5 mmol/L; Blood Urea Nitrogen 23 mg/dL (9-20); Calcium 7.7 mg/dL (8.4-10.2); Carbon Dioxide 21 mmol/L (22-30); Chloride 114 mmol/L (98-107); Cholesterol 87 mg/dL (<200); Glucose 132 mg/dL (74-99); HDL Cholesterol 42 mg/dL (40-60); LDL Cholesterol,Calculated 32 mg/dL (0-99); Non-African American GFR(CKD) >90 (>60 ml/min/1.73 sqM); Potassium 3.4 mmol/L (3.5-5.1); Sodium 140 mmol/L (137-145); Triglycerides 66 mg/dL (<150)
[2020-07-12] MEDS: HYDROCORTISONE SUCCINATE 100 MG/2 ML VIAL IV SCH (08:38)
[2020-07-12] MEDS: PANTOPRAZOLE 40 MG/10 ML VIAL IV SCH (08:38)
[2020-07-12] MEDS: RIVAROXABAN 20 MG TAB PO SCH (08:38)
[2020-07-12] MEDS: MORPHINE SULFATE ER 15 MG TABLET PO SCH ×2 (08:39→21:40)
[2020-07-12] MEDS: GABAPENTIN 300 MG CAP PO SCH ×3 (08:40→21:40)
[2020-07-12] MEDS: ASPIRIN 81 MG PO SCH (08:40)
[2020-07-12] MEDS: MECLIZINE 12.5 MG TAB PO SCH ×2 (08:40→21:41)
[2020-07-12] MEDS: NYSTATIN 100,000 UNIT/ML SUSP 500,000 UNIT/5 ML CUP PO SCH ×4 (08:40→21:43)
[2020-07-12] MEDS: IPRATROPIUM-ALBUTEROL 3 ML NEB INHALATION SCH ×4 (08:55→21:20)
[2020-07-12 09:08] LABS: Anisocytosis Slight; HCT 28.5 % (39.0-53.0); Hypochromasia Marked; MCH 19.9 pg (25.0-35.0); MCHC 26.7 g/dL (31.0-37.0); Mean Platelet Volume 8.1; Microcytosis Moderate; Platelet Count 311 k/uL (150-450); RBC 3.83 m/uL (4.30-5.90); RDW 18.8 % (11.5-15.5); WBC 16.5 k/uL (3.8-10.6)
[2020-07-12 09:12] LABS: HGB 7.6 gm/dL (13.0-17.5); MCV 74.4 fL (80.0-100.0)
[2020-07-12] MEDS: VANCOMYCIN 1,500 MG in SODIUM CHLORIDE 0.9% 250 ML IVPB SCH (09:50)
[2020-07-12 11:41] LABS: Band Neutrophils % 1 %; Lymphocytes # (M) 0.66 k/uL (1.0-4.8); Monocytes # (M) 0.17 k/uL (0-1.0); Neutrophils % (M) 94 %; Nucleated Red Blood Cells 0 /100 WBC (0-0); Total Cells Counted 100
[2020-07-12 11:44] LABS: Mixed Population RBC Present; Poikilocytosis (M) Present
[2020-07-12 11:45] LABS: Ovalocytes Present
[2020-07-12 11:47] LABS: Glucose,Whole Blood 209 mg/dL (75-99)
[2020-07-12] MEDS ORDERED: Potassium Replacement Protocol 1 EACH MISC MISCELLANE PRN ×2 (12:05→18:00)
--- NOTE | 2020-07-12 12:46 | P.PN ---
Subjective Progress Note Date: 07/12/20 This is a 75-year-old gentleman who follows with Dr. Draper in the office, he has a history of coronary artery disease with prior catheterization and stent placement, hypertension, hyperlipidemia, rheumatoid arthritis, history of pancreatitis, patient also has a history of left kwulw-khr-mcrl amputation, significant wounds to the right lower extremity for which she goes to the wound clinic, history of pulmonary embolism, COPD. Patient presented to the hospital on this occasion with a fairly sudden onset of redness swelling and pain in his right upper extremity. According to the , she was leaving the house to go to a doctor's appointment, they didnotice some swelling to the right upper extremity, by the time she returned home, patient was confused, and having severe pain in his right upper extremity. He came to the emergency room, temperature was 102.4 on arrival here, initially they felt he may have Katja of the right upper extremity, possible cellulitis. Cardiology was consulted because of abnormality in troponin. 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 Infarct is a change as compared with old exam. No hemorrhage. Chest x-ray shows pulmonary interstitial infiltrates increased as compared with prior exam. Mild heart failure not excluded. EKG shows a sinus tachycardia with PACs. Nonspecific ST- T wave changes. Blood pressure 110/80 with a heart rate 90 to low 196% on 3 L of oxygen. White blood cell count 3.1, hemoglobin 10.4, platelet count 458. Sodium 135, potassium 4.1, chloride 105, CO2 24, BUN 21, creatinine 0.9. Plasma lactic acid 3.5 on admission, 2.2 subsequent drop. Troponins 0.05, 0.09, 0.08. At the time of my examination, patient is resting comfortably in the emergency room, denies any chest pain, but does state that he gets some episodes of shortness of breath and chest discomfort intermittently. 07/12/2020 Patient was seen and examined this morning, states she's feeling significantly better today overall. His echocardiogram with Doppler study was performed which revealed a normal left ventricular systolic function. Troponins 0.05, 0.09, 0.08. Sodium 140, potassium 3.4, BUN 23, creatinine 0.7. White blood cell count 16.5, hemoglobin 7.6 which is down from 10.4 yesterday, platelet count 311. Blood pressure 120/70 with a heart rate in the 80s, 94% on 2 L. Objective - Vital Signs Vital signs: Vital Signs Temp 98.3 F 07/12/20 00:00 Pulse 80 07/12/20 12:19 Resp 20 07/12/20 03:55 BP 121/78 07/12/20 03:55 Pulse Ox 94 L 07/12/20 03:55 Intake & Output 07/11/20 07/12/20 07/12/20 18:59 06:59 18:59 Intake Total 1090 780 Output Total 640 200 Balance 450 580 Weight 79.5 kg Intake: Intake, IV Titration 1090 780 Amount Piperacillin-Tazobactam 3 50 .375 gm In Sodium Chloride 0.9% 100 ml @ 25 mls/hr IVPB Q8H SURYA Rx#: [id number] Sodium Chloride 0.9% 1, 1040 780 000 ml @ 130 mls/hr IV . Q7H42M SURYA Rx#:[id number] Output: Urine 640 200 Other: Voiding Method Urinal # Voids 0 1 - Exam PHYSICAL EXAMINATION: GENERAL: 75-year-old gentleman in no acute distress at the time of my examination HEENT: Head is atraumatic, normocephalic. Pupils equal, round. Sclera anicteric. Conjunctiva are clear. Mucous membranes of the mouth are moist. Neck is supple. There is no elevated jugular venous pressure. No carotid bruit is heard. HEART EXAMINATION: Heart S1 S2 1 systolic murmur is heard CHEST EXAMINATION: Reveal crackles to the bases bilaterally ABDOMEN: Soft, nontender. Bowel sounds are heard. No organomegaly noted. EXTREMITIES:[ 1+ peripheral pulse to the right lower extremity, there is edema, erythema, and mild swelling. Patient has a left umfyg-iyz-eqdx amputation. Significant redness and swelling noted to the right upper extremity NEUROLOGIC patient is awake, alert and oriented 3 - Labs CBC & Chem 7: 07/12/20 07:03 07/12/20 07:03 Labs: Abnormal Lab Results - Last 24 Hours (Table) 07/11/20 07/11/20 07/11/20 Range/Units 13:00 13:52 14:27 WBC (3.8-10.6) k/uL RBC (4.30-5.90) m/uL Hgb (13.0-17.5) gm/dL Hct (39.0-53.0) % MCV (80.0-100.0) fL MCH (25.0-35.0) pg MCHC (31.0-37.0) g/dL RDW (11.5-15.5) % Neutrophils # (Manual) (1.3-7.7) k/uL Lymphocytes # (Manual) (1.0-4.8) k/uL Potassium (3.5-5.1) mmol/L Chloride (98-107) mmol/L Carbon Dioxide (22-30) mmol/L BUN (9-20) mg/dL Glucose (74-99) mg/dL POC Glucose (mg/dL) 128 H (75-99) mg/dL Plasma Lactic Acid Harsh 3.0 H* (0.7-2.0) mmol/L Calcium (8.4-10.2) mg/dL Urine Protein Trace H (Negative) Urine Opiates Screen Detected H (NotDetected) Ur Oxycodone Screen Detected H (NotDetected) U Marijuana (THC) Screen Detected H (NotDetected) 07/11/20 07/11/20 07/12/20 Range/Units 18:57 20:24 06:25 WBC (3.8-10.6) k/uL RBC (4.30-5.90) m/uL Hgb (13.0-17.5) gm/dL Hct (39.0-53.0) % MCV (80.0-100.0) fL MCH (25.0-35.0) pg MCHC (31.0-37.0) g/dL RDW (11.5-15.5) % Neutrophils # (Manual) (1.3-7.7) k/uL Lymphocytes # (Manual) (1.0-4.8) k/uL Potassium (3.5-5.1) mmol/L Chloride (98-107) mmol/L Carbon Dioxide (22-30) mmol/L BUN (9-20) mg/dL Glucose (74-99) mg/dL POC Glucose (mg/dL) 328 H 168 H (75-99) mg/dL Plasma Lactic Acid Harsh 3.5 H* (0.7-2.0) mmol/L Calcium (8.4-10.2) mg/dL Urine Protein (Negative) Urine Opiates Screen (NotDetected) Ur Oxycodone Screen (NotDetected) U Marijuana (THC) Screen (NotDetected) 07/12/20 07/12/20 07/12/20 Range/Units 07:03 07:03 11:45 WBC 16.5 H (3.8-10.6) k/uL RBC 3.83 L (4.30-5.90) m/uL Hgb 7.6 L D (13.0-17.5) gm/dL Hct 28.5 L (39.0-53.0) % MCV 74.4 L D (80.0-100.0) fL MCH 19.9 L (25.0-35.0) pg MCHC 26.7 L (31.0-37.0) g/dL RDW 18.8 H (11.5-15.5) % Neutrophils # (Manual) 15.60 H (1.3-7.7) k/uL Lymphocytes # (Manual) 0.66 L (1.0-4.8) k/uL Potassium 3.4 L (3.5-5.1) mmol/L Chloride 114 H (98-107) mmol/L Carbon Dioxide 21 L (22-30) mmol/L BUN 23 H (9-20) mg/dL Glucose 132 H (74-99) mg/dL POC Glucose (mg/dL) 209 H (75-99) mg/dL Plasma Lactic Acid Harsh (0.7-2.0) mmol/L Calcium 7.7 L (8.4-10.2) mg/dL Urine Protein (Negative) Urine Opiates Screen (NotDetected) Ur Oxycodone Screen (NotDetected) U Marijuana (THC) Screen (NotDetected) Microbiology - Last 24 Hours (Table) 07/10/20 18:36 Blood Culture Gram Stain - Preliminary Blood Blood Culture - Preliminary Acinetobacter baumannii 07/10/20 18:36 Blood Culture - Final Blood Assessment and Plan Plan: Assessment and plan #1 fairly acute onset of redness and swelling of the right upper extremity, possible cellulitis. Evidence of a possible sepsis, temperature 102 on admission here lactic acid 3.5 on admission #2 abnormal troponin, no significant rise and fall pattern to suggest acute coronary syndrome. #3 coronary artery disease with prior stent placement #4 hypertension #5 hyperlipidemia #6 COPD #7 rheumatoid arthritis #8 nicotine dependence history #9 history of PE for which the patient is on Xarelto #10 anemia, hemoglobin 7.6, down from 10.4 Plan Echocardiogram with Doppler study was performed which revealed an ejection fraction of 50-55%. We will repeat a hemoglobin in the morning. Patient is on xarelto 20 mg daily for history of PE. DNP note has been reviewed, I agree with a documented findings and plan of care. Patient was seen and examined.
[2020-07-12 16:22] LABS: Glucose,Whole Blood 289 mg/dL (75-99)
--- NOTE | 2020-07-12 17:14 | P.PN ---
Subjective Progress Note Date: 07/12/20 She was seen at bedside he said he is doing better today compared to yesterday. He says that his dizziness is somewhat better today compared to yesterday. He denies of any new weakness numbness or visual disturbance. Per the patient's nurse that she stated that the patient is having intermittent atrial fibrillation. He's oriented on Xarelto for DVT and pulmonary embolism. Objective - Vital Signs Vital signs: Vital Signs Temp 97.6 F 07/12/20 11:35 Pulse 84 07/12/20 15:50 Resp 18 07/12/20 11:35 BP 143/74 07/12/20 11:35 Pulse Ox 99 07/12/20 11:35 Intake & Output 07/11/20 07/12/20 07/12/20 18:59 06:59 18:59 Intake Total 1090 780 350 Output Total 640 200 Balance 450 580 350 Weight 79.5 kg Intake: Intake, IV Titration 1090 780 350 Amount Ampicillin-Sulbactam 3 gm 100 In Sodium Chloride 0.9% 100 ml @ 200 mls/hr IVPB Q6H SURYA Rx#:[id number] Piperacillin-Tazobactam 3 50 .375 gm In Sodium Chloride 0.9% 100 ml @ 25 mls/hr IVPB Q8H SURYA Rx#: [id number] Sodium Chloride 0.9% 1, 1040 780 000 ml @ 130 mls/hr IV . Q7H42M SURYA Rx#:[id number] Vancomycin 1,500 mg In 250 Sodium Chloride 0.9% 250 ml @ 125 mls/hr IVPB Q12HR SURYA Rx#:[id number] Output: Urine 640 200 Other: Voiding Method Urinal # Voids 0 1 - Exam GENERAL: The patient is lying in bed and is not in acute distress. CHEST: The heart rate is regular rate rhythm. No murmurs to auscultation. No carotid bruit bilaterally. LUNG: Clear to auscultation bilaterally no wheezing noted throughout. Not labored breathing. ABDOMEN/GI: Bowel sounds present in all 4 quadrants. No tenderness to palpation throughout. NEUROLOGICAL: Higher mental function: The patient is awake, alert, oriented to self, place and time. Patient is following commands. No aphasia and no neglect. Cranial nerves: The pupils are round, equal and reactive to light and accommodation. Visual bass are full to confrontation throughout (this was checked 4 times). Extraocular movement is intact no nystagmus is noted. Facial sensation is normal to touch throughout. The facial strength is normal throughout. Hearing is normal bilaterally to hand rub. Tongue is midline and moved [id number] without any difficulty. No dysarthria is noted. Shoulder shrug is normal bilaterally. Motor: Gait is defered. The strength is 5 over 5 of bilateral upper extremities While bilateral lower extremities unable to assess since wrapped because of infection. Is able to lift right lower extremity above gravity without drift. Left lower extremity is amputated above knee and above to move it proximally. Cerebellum: Normal finger to nose bilaterally. Sensation: Sensation is normal to touch throughout. Reflexes (right/left): 2+ throughout bilateral upper extremities and not assessed lower extremities. Plantars: Not assessed since right lower extremity is wrapped while left there is amputation of extremity. - Labs CBC & Chem 7: 07/12/20 07:03 07/12/20 07:03 Labs: Abnormal Lab Results - Last 24 Hours (Table) 07/11/20 07/11/20 07/12/20 Range/Units 18:57 20:24 06:25 WBC (3.8-10.6) k/uL RBC (4.30-5.90) m/uL Hgb (13.0-17.5) gm/dL Hct (39.0-53.0) % MCV (80.0-100.0) fL MCH (25.0-35.0) pg MCHC (31.0-37.0) g/dL RDW (11.5-15.5) % Neutrophils # (Manual) (1.3-7.7) k/uL Lymphocytes # (Manual) (1.0-4.8) k/uL Potassium (3.5-5.1) mmol/L Chloride (98-107) mmol/L Carbon Dioxide (22-30) mmol/L BUN (9-20) mg/dL Glucose (74-99) mg/dL POC Glucose (mg/dL) 328 H 168 H (75-99) mg/dL Plasma Lactic Acid Harsh 3.5 H* (0.7-2.0) mmol/L Calcium (8.4-10.2) mg/dL 07/12/20 07/12/20 07/12/20 Range/Units 07:03 07:03 11:45 WBC 16.5 H (3.8-10.6) k/uL RBC 3.83 L (4.30-5.90) m/uL Hgb 7.6 L D (13.0-17.5) gm/dL Hct 28.5 L (39.0-53.0) % MCV 74.4 L D (80.0-100.0) fL MCH 19.9 L (25.0-35.0) pg MCHC 26.7 L (31.0-37.0) g/dL RDW 18.8 H (11.5-15.5) % Neutrophils # (Manual) 15.60 H (1.3-7.7) k/uL Lymphocytes # (Manual) 0.66 L (1.0-4.8) k/uL Potassium 3.4 L (3.5-5.1) mmol/L Chloride 114 H (98-107) mmol/L Carbon Dioxide 21 L (22-30) mmol/L BUN 23 H (9-20) mg/dL Glucose 132 H (74-99) mg/dL POC Glucose (mg/dL) 209 H (75-99) mg/dL Plasma Lactic Acid Harsh (0.7-2.0) mmol/L Calcium 7.7 L (8.4-10.2) mg/dL 07/12/20 Range/Units 16:21 WBC (3.8-10.6) k/uL RBC (4.30-5.90) m/uL Hgb (13.0-17.5) gm/dL Hct (39.0-53.0) % MCV (80.0-100.0) fL MCH (25.0-35.0) pg MCHC (31.0-37.0) g/dL RDW (11.5-15.5) % Neutrophils # (Manual) (1.3-7.7) k/uL Lymphocytes # (Manual) (1.0-4.8) k/uL Potassium (3.5-5.1) mmol/L Chloride (98-107) mmol/L Carbon Dioxide (22-30) mmol/L BUN (9-20) mg/dL Glucose (74-99) mg/dL POC Glucose (mg/dL) 289 H (75-99) mg/dL Plasma Lactic Acid Harsh (0.7-2.0) mmol/L Calcium (8.4-10.2) mg/dL Microbiology - Last 24 Hours (Table) 07/10/20 18:36 Blood Culture Gram Stain - Preliminary Blood Blood Culture - Preliminary Acinetobacter baumannii 07/10/20 18:36 Blood Culture - Final Blood Assessment and Plan Assessment: 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 I contacted the reading radiologist and he also felt was also right occipital as well. Patient is on Xarelto 20 mg daily(home dose) added aspirin 81 mg daily. Continue Lipitor 40 mg daily. Carotid duplex: Was reported as there is antegrade flow in the right vertebral artery. Did not show flow in the left vertebral artery at. Exam was limited. Less than 20% stenosis in both internal carotid arteries. 2-D echo was reported as left ventricle size is normal. There is mild co ncentric left ventricular hypertrophy. Ejection fraction of 50-55%. There is septal wall motion is delayed and consistent with conduction delay/bundle branch block. Mild tricuspid regurgitation is present. Cardiac monitoring. TSH: 0.562. Lipid panel: Triglyceride 66, cholesterol 87, LDL 32, HDL 42. Ordered CT angiogram of the head and neck to evaluate vertebral artery and intracranial arteries because of old stroke. Regarding his peripheral vertigo continue meclizine to 12.5 mg twice a day Regarding 2-D echo finding of the conduction delay and bundle branch block will defer it to cardiology who's on board. Regarding the patient's intermittent afibrillation will defer the management to the primary team as well as cardiology. Sb Tesfaye M.D. Neuro-hospitalist Time with Patient: Greater than 30
[2020-07-12] MEDS ORDERED: INSULIN ASPART (NovoLOG) 100 UNIT/ML VIAL SQ ONE (17:30)
[2020-07-12] MEDS: POTASSIUM CHLORIDE ER 20 MEQ TAB.ER PO SCH ×2 (18:10→21:41)
[2020-07-12] MEDS: METOPROLOL TARTRATE 25 MG TAB PO SCH (18:10)
[2020-07-12 19:58] LABS: Hemoglobin A1C 6.3 % (4.0-6.0)
[2020-07-12] MEDS ORDERED: VANCOMYCIN TROUGH DUE 1 EACH MISC MISCELLANE ONE (20:00)
[2020-07-12 21:16] LABS: Glucose,Whole Blood 90 mg/dL (75-99)
[2020-07-12] MEDS: ATORVASTATIN 40 MG TAB PO SCH (21:41)
[2020-07-12] MEDS: INSULIN DETEMIR (LEVEMIR) 100 UNIT/ML SYR SQ SCH (21:42)
--- NOTE | 2020-07-12 23:36 | CT ---
EXAMINATION TYPE: CT angio head neck DATE OF EXAM: 07/12/2020 COMPARISON: CT brain 07/10/2020 HISTORY: Right occipital stroke CT DLP: mGycm Automated exposure control for dose reduction was used. CONTRAST: The IV contrast was Isovue 65 mL. There are images from the base of the neck to the vertex of the bra in with 3-D post processed images. Aortic arch is not included on the exam. There is arterial flow in both common carotid arteries. Ther e is arterial flow in both subclavian arteries. There is wide patency of the right carotid artery bif urcation. There is wide patency of the left carotid artery bifurcation. There is arterial flow in both vertebral arteries. Right vertebral artery is larger than the left. Th ere is arterial flow in the vertebrobasilar artery system. There is arterial flow in the anterior mid dle and posterior cerebral arteries. There is no evidence of intracranial aneurysm or neovascularity. There is no mass effect. There is normal contrast opacification of the venous sinuses. There is wedg e-shaped 1.8 cm area of hypodensity in the cortex left occipital lobe consistent with infarct and not changed in size compared to 07/10/2020. I see no evidence of intracranial arterial stenosis. IMPRESSION: Negative CT angiogram of the neck. Negative CT angiogram of the brain. No evidence of hemodynamic jaleesa nosis. Left occipital lobe cortical infarct.
[2020-07-13] MEDS: AMPICILLIN-SULBACTAM 3 GM in SODIUM CHLORIDE 0.9% 100 ML IVPB SCH ×4 (03:47→20:50)
[2020-07-13] MEDS: oxyCODONE-APAP 10-325MG 1 EACH TAB PO PRN ×2 (03:50→13:47)
[2020-07-13 06:17] LABS: Glucose,Whole Blood 103 mg/dL (75-99)
[2020-07-13] MEDS: PANTOPRAZOLE 40 MG TABLET PO SCH (06:50)
[2020-07-13] MEDS: SODIUM CHLORIDE 0.9% 1,000 ML IV SCH ×3 (06:50→20:50)
[2020-07-13] MEDS: INSULIN ASPART (NovoLOG) 100 UNIT/ML VIAL SQ SCH ×4 (06:50→20:52)
[2020-07-13] MEDS: IPRATROPIUM-ALBUTEROL 3 ML NEB INHALATION SCH ×4 (06:57→18:57)
[2020-07-13] MEDS: IPRATROPIUM-ALBUTEROL 3 ML NEB INHALATION PRN ×2 (08:29→23:28)
[2020-07-13] MEDS: RIVAROXABAN 20 MG TAB PO SCH (09:23)
[2020-07-13] MEDS: ASPIRIN 81 MG PO SCH (09:23)
[2020-07-13] MEDS: MORPHINE SULFATE ER 15 MG TABLET PO SCH ×2 (09:23→20:51)
[2020-07-13] MEDS: METOPROLOL TARTRATE 25 MG TAB PO SCH (09:23)
[2020-07-13] MEDS: GABAPENTIN 300 MG CAP PO SCH ×3 (09:23→20:51)
[2020-07-13] MEDS: predniSONE 20 MG TAB PO SCH (09:23)
[2020-07-13] MEDS: NYSTATIN 100,000 UNIT/ML SUSP 500,000 UNIT/5 ML CUP PO SCH ×4 (09:23→20:52)
[2020-07-13] MEDS: MECLIZINE 12.5 MG TAB PO SCH ×2 (09:23→20:51)
[2020-07-13 11:00] LABS: African American GFR (CKD) >90 (>60 ml/min/1.73 sqM); Non-African American GFR(CKD) >90 (>60 ml/min/1.73 sqM)
[2020-07-13 11:37] LABS: Glucose,Whole Blood 119 mg/dL (75-99)
[2020-07-13] MEDS ORDERED: Potassium Replacement Protocol 1 EACH MISC MISCELLANE PRN (11:55)
--- NOTE | 2020-07-13 12:15 | P.PN ---
Subjective Progress Note Date: 07/13/20 Patient was seen at bedside and states that the he's doing good. He denies any new weakness numbness or visual disturbance. He denies of any nausea or vomiting. Objective - Vital Signs Vital signs: Vital Signs Temp 97.3 F L 07/13/20 11:41 Pulse 101 H 07/13/20 11:41 Resp 18 07/13/20 11:41 BP 144/80 07/13/20 11:41 Pulse Ox 97 07/13/20 11:41 Intake & Output 07/12/20 07/13/20 07/13/20 18:59 06:59 18:59 Intake Total 350 236 Output Total 400 50 Balance 350 -400 186 Weight 79.9 kg Intake: Intake, IV Titration 350 Amount Ampicillin-Sulbactam 3 gm 100 In Sodium Chloride 0.9% 100 ml @ 200 mls/hr IVPB Q6H [facility] Rx#:[id number] Vancomycin 1,500 mg In 250 Sodium Chloride 0.9% 250 ml @ 125 mls/hr IVPB Q12HR [facility]YA Rx#:[id number] Oral 236 Output: Urine 400 50 Other: Voiding Method Urinal # Voids 1 - Exam GENERAL: The patient is lying in bed and is not in acute distress. CHEST: The heart rate is regular rate rhythm. No murmurs to auscultation. No carotid bruit bilaterally. LUNG: Clear to auscultation bilaterally no wheezing noted throughout. Not labored breathing. ABDOMEN/GI: Bowel sounds present in all 4 quadrants. No tenderness to palpation throughout. NEUROLOGICAL: Higher mental function: The patient is awake, alert, oriented to self, place and time. Patient is following commands. No aphasia and no neglect. Cranial nerves: The pupils are round, equal and reactive to light and accommodation. Visual bass are full to confrontation throughout (this was checked 4 times). Extraocular movement is intact no nystagmus is noted. Facial sensation is normal to touch throughout. The facial strength is normal throughout. Hearing is normal bilaterally to hand rub. Tongue is midline and moved [id number] without any difficulty. No dysarthria is noted. Shoulder shrug is normal bilaterally. Motor: Gait is defered. The strength is 5 over 5 of bilateral upper extremities While bilateral lower extremities unable to assess since wrapped because of infection. Is able to lift right lower extremity above gravity without drift. Left lower extremity is amputated above knee and above to move it proximally. Cerebellum: Normal finger to nose bilaterally. Sensation: Sensation is normal to touch throughout. Reflexes (right/left): 2+ throughout bilateral upper extremities and not assessed lower extremities. Plantars: Not assessed since right lower extremity is wrapped while left there is amputation of extremity. 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 I contacted the reading radiologist and he also felt was also right occipital as well. Patient is on Xarelto 20 mg daily(home dose) added aspirin 81 mg daily. Continue Lipitor 40 mg daily. Carotid duplex: Was reported as there is antegrade flow in the right vertebral artery. Did not show flow in the left vertebral artery at. Exam was limited. Less than 20% stenosis in both internal carotid arteries. 2-D echo was reported as left ventricle size is normal. There is mild concentric left ventricular hypertrophy. Ejection fraction of 50-55%. There is septal wall motion is delayed and consistent with conduction delay/bundle branch block. Mild tricuspid regurgitation is present. Cardiac monitoring. TSH: 0.562. Lipid panel: Triglyceride 66, cholesterol 87, LDL 32, HDL 42. CT angiogram of the head and neck: No evidence of stenosis. Regarding his peripheral vertigo continue meclizine to 12.5 mg twice a day Regarding 2-D echo finding of the conduction delay and bundle branch block will defer it to cardiology who's on board. Regarding the patient's intermittent afibrillation will defer the management to the primary team as well as cardiology. Upon discharge the patient needs to follow-up with a neurologist as an outpatient. From a neurology perspective that he is clear. No further workup is needed. Sb Tesfaye M.D. Neuro-hospitalist Time with Patient: Greater than 30
--- NOTE | 2020-07-13 12:18 | XR ---
EXAMINATION TYPE: XR chest 1V portable DATE OF EXAM: 07/13/2020 HISTORY: Shortness of breath. COMPARISON: 07/10/2020 TECHNIQUE: Single view of the chest is submitted. FINDINGS: Demonstrated are scattered senescent parenchymal change. Scattered subpleural fibrosis redemonstrated. Mild increased patchy density left lower lobe may refle ct developing infiltrate. Correlate clinically and progress studies are recommended. The heart is enlarged without overt failure at this time. Hilar and mediastinal structures are within normal limits. Degenerative changes are seen of the dorsal spine. IMPRESSION: 1. Scattered subpleural fibrosis redemonstrated. Mild increased patchy density left lower lobe may r eflect developing infiltrate. Correlate clinically and progress studies are recommended.
[2020-07-13] MEDS: POTASSIUM CHLORIDE ER 20 MEQ TAB.ER PO SCH ×2 (13:44→15:29)
--- NOTE | 2020-07-13 14:43 | US ---
EXAMINATION TYPE: US venous doppler duplex UE RT DATE OF EXAM: 07/13/2020 COMPARISON: NONE CLINICAL HISTORY: r o DVT. right swollen arm, cellulitis SIDE PERFORMED: Right Right Arm: Negative for DVT IMPRESSION: No evidence for DVT at this time.
[2020-07-13 15:54] LABS: Anisocytosis Slight; HCT 27.6 % (39.0-53.0); HGB 7.5 gm/dL (13.0-17.5); Hypochromasia Marked; MCH 19.8 pg (25.0-35.0); MCHC 27.1 g/dL (31.0-37.0); MCV 73.2 fL (80.0-100.0); Mean Platelet Volume 8.6; Microcytosis Marked; Platelet Count 331 k/uL (150-450); RBC 3.78 m/uL (4.30-5.90); RDW 19.6 % (11.5-15.5); WBC 12.5 k/uL (3.8-10.6)
[2020-07-13 16:29] LABS: Glucose,Whole Blood 209 mg/dL (75-99)
[2020-07-13 18:51] LABS: Band Neutrophils % 1 %; Eosinophils # (M) 0.25 k/uL (0-0.7); Lymphocytes # (M) 1.13 k/uL (1.0-4.8); Monocytes # (M) 0.25 k/uL (0-1.0); Neutrophils % (M) 88 %; Nucleated Red Blood Cells 0 /100 WBC (0-0); Poikilocytosis (M) Present; Total Cells Counted 200
[2020-07-13 20:32] LABS: Glucose,Whole Blood 116 mg/dL (75-99)
[2020-07-13] MEDS: INSULIN DETEMIR (LEVEMIR) 100 UNIT/ML SYR SQ SCH (20:51)
[2020-07-13] MEDS: ATORVASTATIN 40 MG TAB PO SCH (20:51)
[2020-07-14] MEDS: IPRATROPIUM-ALBUTEROL 3 ML NEB INHALATION PRN (02:53)
[2020-07-14] MEDS: AMPICILLIN-SULBACTAM 3 GM in SODIUM CHLORIDE 0.9% 100 ML IVPB SCH ×4 (03:39→20:37)
[2020-07-14] MEDS: oxyCODONE-APAP 10-325MG 1 EACH TAB PO PRN ×2 (05:28→15:35)
[2020-07-14 06:03] LABS: Folate, Serum 7.6 ng/mL
[2020-07-14 06:08] LABS: % Iron Saturation 1.88 (15.00-50.00)
[2020-07-14 06:18] LABS: Glucose,Whole Blood 111 mg/dL (75-99)
[2020-07-14] MEDS ORDERED: FUROSEMIDE 10 MG/ML 4 ML VIAL IV STA (06:49)
--- NOTE | 2020-07-14 06:51 | P.PN ---
Subjective On-call hospitalist covering for Dr. Steven starting from today 07/13. This is a pleasant 75 years old male with past medical history of coronary ar cisco disease, COPD, DVT venous thrombosis, hyperlipidemia, pneumonia, pulmonary embolism, rheumatoid arthritis right leg wound left AKA. Patient was admitted on 07/10/2024 confusion and altered mental status with fever of 102. With right arm swelling and pain. 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 Today patient was lying in bed comfortable, is fully awake and oriented, if his generally weak he has significant swelling and erythema of the whole right upper extremity, he can move his hand was some limitation, no open wound. Also he has one in the right foot with some purulent discharge on the dressing him however the base looks clean with some degree of swelling around it. He is slightly tachypneic Vitas looks stable, he is tachycardic 101-103. His saturating 97% on 6 L oxygen via nasal cannula. Fever on admission has been subsided Labs showing WBC of 16.5 K, hemoglobin 7.6. Platelet 311K. INR 1.0. Creatinine today 0.6, potassium 3.4, glucose 119. Elevated lactic acid 3.5 came back to normal 1.9. Elevated troponin 0.05-0.08 Blood culture is positive for acinobacter baumannii Chest x-ray showing scattered subpleural fibrosis with mild increased patchy density in the left lower lobe may reflect developing infiltrate. CT angio of the head and neck is negative. Carotid duplex: Showing only 20% stenosis in both carotid arteries. echocardiogram: Ejection fraction 50-55% left occipital infarct that's older subacute Currently patient is on Unasyn, aspirin 81 mg, statin, nystatin, Protonix, prednisone 40 mg daily, Xarelto, normal saline at 130 milliliters per hour Objective - Vital Signs Vital signs: Vital Signs Temp 97.3 F L 07/13/20 11:41 Pulse 101 H 07/13/20 11:41 Resp 18 07/13/20 12:00 BP 144/80 07/13/20 11:41 Pulse Ox 97 07/13/20 11:41 Intake & Output 07/12/20 07/13/20 07/13/20 18:59 06:59 18:59 Intake Total 350 236 Output Total 400 50 Balance 350 -400 186 Weight 79.9 kg Intake: Intake, IV Titration 350 Amount Ampicillin-Sulbactam 3 gm 100 In Sodium Chloride 0.9% 100 ml @ 200 mls/hr IVPB Q6H [facility]YA Rx#:[id number] Vancomycin 1,500 mg In 250 Sodium Chloride 0.9% 250 ml @ 125 mls/hr IVPB Q12HR SURYA Rx#:[id number] Oral 236 Output: Urine 400 50 Other: Voiding Method Urinal # Voids 1 - Exam GENERAL: The patient is alert and oriented x3, not in any acute distress. Well developed, well nourished. HEENT: Pupils are round and equally reacting to light. EOMI. No scleral icterus. No conjunctival pallor. Normocephalic, atraumatic. No pharyngeal erythema. No thyromegaly. CARDIOVASCULAR: S1 and S2 present. No murmurs, rubs, or gallops. PULMONARY: Chest is clear to auscultation, no wheezing or crackles. ABDOMEN: Soft, nontender, nondistended, normoactive bowel sounds. No palpable organomegaly. MUSCULOSKELETAL: No joint swelling or deformity. -EXTREMITIES: No cyanosis, clubbing, or pedal edema. Right upper extremity swelling, right foot wound with some purulent discharge, dressing is in place. Patient status post left AKA NEUROLOGICAL: Gross neurological examination did not reveal any focal deficits. SKIN: No rashes. no petechiae. - Labs CBC & Chem 7: 07/13/20 10:00 07/13/20 10:00 Labs: Abnormal Lab Results - Last 24 Hours (Table) 07/12/20 07/12/20 07/13/20 Range/Units 07:03 16:21 06:02 Potassium (3.5-5.1) mmol/L POC Glucose (mg/dL) 289 H 103 H (75-99) mg/dL Hemoglobin A1c 6.3 H (4.0-6.0) % 07/13/20 07/13/20 Range/Units 10:00 11:36 Potassium 3.4 L (3.5-5.1) mmol/L POC Glucose (mg/dL) 119 H (75-99) mg/dL Hemoglobin A1c (4.0-6.0) % Microbiology - Last 24 Hours (Table) 07/10/20 18:36 Blood Culture Gram Stain - Final Blood Blood Culture - Final Acinetobacter baumannii Assessment and Plan Assessment: Right upper extremity cellulitis with sepsis Altered mental status possible metabolic encephalopathy Elevated troponin Positive blood culture Left lower lobe pneumonia, possible aspiration pneumonia severe anemia Old 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 Patient is followed by several consultants including neurology, cardiology. We will ask for swallow evaluation, consult infectious disease team. Check ultrasound of the right upper extremity. Repeat labs today and tomorrow. We'll check chest x-ray Also we'll do anemia workup. Lower fluid to 50 mL/hr of normal saline. And give 1 dose of Lasix Labs and medication were reviewed.. Continue same treatment. Continue with symptomatic treatment. Resume home medication. Monitor lytes and vitals. DVT and GI prophylaxis. Further recommendationsas per clinical course of the patient DVT prophylaxis: Xarelto GI Prophylaxis: Ppi PT/OT: Pending Prognosis is guarded
[2020-07-14] MEDS: INSULIN ASPART (NovoLOG) 100 UNIT/ML VIAL SQ SCH ×4 (07:04→20:28)
[2020-07-14] MEDS: PANTOPRAZOLE 40 MG TABLET PO SCH ×2 (07:05→17:10)
[2020-07-14] MEDS: MORPHINE SULFATE ER 15 MG TABLET PO SCH ×2 (08:46→20:36)
[2020-07-14] MEDS: GABAPENTIN 300 MG CAP PO SCH ×3 (08:46→20:36)
[2020-07-14] MEDS: RIVAROXABAN 20 MG TAB PO SCH (08:47)
[2020-07-14] MEDS: predniSONE 20 MG TAB PO SCH (08:47)
[2020-07-14] MEDS: METOPROLOL TARTRATE 25 MG TAB PO SCH (08:47)
[2020-07-14] MEDS: ASPIRIN 81 MG PO SCH (08:47)
[2020-07-14] MEDS ORDERED: METOPROLOL SUCCINATE (ER) 25 MG TAB.ER.24H PO STA (09:00)
[2020-07-14] MEDS ORDERED: METOPROLOL TARTRATE 25 MG TAB PO STA (09:01)
--- NOTE | 2020-07-14 09:31 | P.CONS ---
History of Present Illness - Reason for Consult Consult date: 07/13/20 Bacteremia Requesting physician: Jone E Sheet - Chief Complaint Right upper swelling and redness x 3 days - History of Present Illness Patient is a 75-year-old male presenting to the ER at [facility] on 07/02/2020 for evaluation of confusion and a fever of 102F symptoms started the day of presentation to the hospital patient was evaluated by the EMS he was a given fluid bolus and subsequently was brought into the [facility] ER on arrival to the ER the patient did have low-grade fever 100.1 patient was leukopenic initially subsequent the white count was up to 16.5 and is down to 12.5 today, patient did have a chest x-ray with evidence of increased interstitial infiltrate patient did have a right upper extremity Doppler that was negative for DVT patient noticed to have a positive blood culture with Acinetobacter bacteremia, infectious disease was consulted because of his bacteremia, patient with complaining of right upper extremity swelling and redness that has been going on for the last few days patient denies having history of any trauma patient did have diffuse swelling and redness and has been complaining of some dull aching pain to the right upper arm with intensity 3-4 out of 10 and no radiation no skin breakdowns no drainage. Patient also have a chronic nonhealing wound to the right leg and right foot that is being monitored by [facility] wound care center he has been evaluated by the wound care team currently being treated with the [employer] Review of Systems Positive point has been mentioned in the HPI rest of the systems are negative Past Medical History Past Medical History: Coronary Artery Disease (CAD), COPD, Deep Vein Thrombosis (DVT), Hyperlipidemia, Pneumonia, Pulmonary Embolus (PE), Rheumatoid Arthritis (RA), Vascular Disorder Additional Past Medical History / Comment(s): History of pancreatitis, 2012 past medical record documents viral pericarditis but pt denies, gastritis, Fluid bu ild up rt lung - previous chest tube - pt unsure what it is from, BOTTOM TEETH REMOVED 09-01-18, wounds in his right lower extremity, left cbomc-wwi-pqnn stump and left elbow History of Any Multi-Drug Resistant Organisms: MRSA Year Discovered:: 11/23/18 MDRO Source:: KNEE Past Surgical History: Heart Catheterization With Stent, Joint Replacement, Orthopedic Surgery Additional Past Surgical History / Comment(s): Total L knee arthroplasty with a spacer in place, R total shoulder replaced, L ankle ORIF d/t fracture, EGD, left rotator cuff repair. right ankle sx, thoracentesis, chest tube rt lung, LT above the knee amputation -2018 Past Anesthesia/Blood Transfusion Reactions: No Reported Reaction Additional Past Anesthesia/Blood Transfusion Reaction / Comm: Pt states he has never recieved blood. Date of Last Stent Placement:: 12/10/16 Smoking Status: Former smoker - Past Family History Sister(s) Family Medical History: Cancer Additional Family Medical History / Comment(s): pt's father had ra, mother had 16 children was healthy most of her life age 93 from dementia. Mother Family Medical History: Dementia Additional Family Medical History / Comment(s): Mother from dementia at the age of 93 yrs. Father Family Medical History: Rheumatoid Arthritis (RA) Medications and Allergies Home Medications Medication Instructions Recorded Confirmed Type Rivaroxaban [Xarelto] 20 mg PO DAILY 02/14/20 07/10/20 History Gabapentin [Neurontin] 300 mg PO TID #9 cap 02/21/20 07/10/20 Rx oxyCODONE-APAP 10-325MG [Percocet 1 tab PO QID PRN #12 tab 02/21/20 07/10/20 Rx 10-325 mg] Ipratropium-Albuterol Nebulize 3 ml INHALATION RT-HS PRN 07/10/20 07/10/20 History [Duoneb 0.5 mg-3 mg/3 ml Soln] Morphine Sulfate ER [Ms Contin] 15 mg PO Q12H 07/10/20 07/10/20 History Nystatin 100,000 Unit/ml Susp 500,000 unit PO QID 07/10/20 07/10/20 History [Mycostatin Oral Susp] Therahoney 1 applic TOPICAL MOWEFR 07/10/20 07/10/20 History predniSONE 30 mg PO DAILY 07/10/20 07/10/20 History Allergies Allergy/AdvReac Type Severity Reaction Status Date / Time No Known Allergies Allergy Verified 07/10/20 19:29 Physical Exam Vitals: Vital Signs Temp Pulse Pulse Resp BP Pulse Ox 07/13/20 16:00 83 07/13/20 15:27 96.4 F L 83 16 161/92 99 07/13/20 15:15 97 07/13/20 15:13 96 07/13/20 12:00 18 07/13/20 11:41 97.3 F L 101 H 18 144/80 97 07/13/20 11:27 100 07/13/20 11:20 92 07/13/20 08:52 97.3 F L 103 H 18 136/73 98 07/13/20 08:38 100 07/13/20 08:30 96 07/13/20 08:00 18 07/13/20 07:05 92 07/13/20 06:55 96 07/13/20 04:00 98.3 F 86 19 172/97 96 07/13/20 00:00 98.3 F 83 19 133/82 95 07/12/20 21:35 94 07/12/20 21:34 94 L 07/12/20 21:20 96 07/12/20 20:00 98.2 F 97 19 136/82 98 Intake and Output 07/13/20 07/13/20 07/13/20 06:59 14:59 22:59 Intake Total 476 Output Total 400 50 400 Balance -400 426 -400 Intake: Oral 476 Output: Urine 400 50 400 Other: Voiding Method Urinal # Voids 1 2 Weight 79.9 kg GENERAL DESCRIPTION: Elderly male lying in bed, no distress. No tachypnea or accessory muscle of respiration use. HEENT: Shows Pallor , no scleral icterus. Oral mucous membrane is dry. No pharyngeal erythema or thrush NECK: Trachea central, no thyromegaly. LUNGS: Unlabored breathing. Decreased breath sounds at the base. No wheeze or crackle. HEART: S1, S2, regular rate and rhythm. No loud murmur ABDOMEN: Soft, no tenderness , guarding or rigidity, no organomegaly EXTREMITIES: Right upper extremity with diffuse swelling and redness warm and tender to touch no fluctuation or induration SKIN: No rash, no masses palpable. NEUROLOGICAL: The patient is awake, alert, oriented x3, mood and affect normal. Results CBC & Chem 7: 07/13/20 10:00 07/13/20 10:00 Labs: Abnormal Lab Results - Last 24 Hours (Table) 07/12/20 07/13/20 07/13/20 Range/Units 07:03 06:02 10:00 WBC (3.8-10.6) k/uL RBC (4.30-5.90) m/uL Hgb (13.0-17.5) gm/dL Hct (39.0-53.0) % MCV (80.0-100.0) fL MCH (25.0-35.0) pg MCHC (31.0-37.0) g/dL RDW (11.5-15.5) % Potassium 3.4 L (3.5-5.1) mmol/L POC Glucose (mg/dL) 103 H (75-99) mg/dL Hemoglobin A1c 6.3 H (4.0-6.0) % 07/13/20 07/13/20 07/13/20 Range/Units 10:00 11:36 16:28 WBC 12.5 H (3.8-10.6) k/uL RBC 3.78 L (4.30-5.90) m/uL Hgb 7.5 L (13.0-17.5) gm/dL Hct 27.6 L (39.0-53.0) % MCV 73.2 L (80.0-100.0) fL MCH 19.8 L (25.0-35.0) pg MCHC 27.1 L (31.0-37.0) g/dL RDW 19.6 H (11.5-15.5) % Potassium (3.5-5.1) mmol/L POC Glucose (mg/dL) 119 H 209 H (75-99) mg/dL Hemoglobin A1c (4.0-6.0) % Microbiology - Last 24 Hours (Table) 07/10/20 18:36 Blood Culture Gram Stain - Final Blood Blood Culture - Final Acinetobacter baumannii Assessment and Plan Assessment: 1- patient with Acinetobacter bacteremia source likely right upper extremity c ellulitis in this patient did have diffuse swelling and redness patient currently with no other obvious focus for his bacteremia and significant respiratory symptoms and evidence of any consolidation on the chest x-ray patient to have a wound on the right leg and foot however no surrounding cellulitis to be responsible for this bacteremia (1) Gram-negative bacteremia Current Visit: Yes Status: Acute Code(s): R78.81 - BACTEREMIA SNOMED Code(s): 342957555366 (2) Cellulitis of right arm Current Visit: Yes Status: Acute Code(s): L03.113 - CELLULITIS OF RIGHT UPPER LIMB SNOMED Code(s): 916358413 Plan: 1- Unasyn 3 g every 6 hours 2-CT of the right upper extremity to make sure no evidence of any abscess 3-blood cultures will be repeated to document clearance of bacteremia We will follow on clinical condition and cultures to further adjust medication if needed Thank you for this consultation will follow this patient with you Time with Patient: Greater than 30
[2020-07-14] MEDS ORDERED: RX INFO: IV CONTRAST WAS GIVEN 1 EACH MISC MISCELLANE PRN (09:32)
[2020-07-14] MEDS: IPRATROPIUM-ALBUTEROL 3 ML NEB INHALATION SCH ×4 (10:07→20:07)
--- NOTE | 2020-07-14 10:22 | P.PN ---
Subjective Progress Note Date: 07/14/20 Patient was seen at bedside and said he is doing well. Denies any new weakness, numbness or visual disturbance. She is on the cardiac monitoring and the it's mentioned that the patient the is ago in the in the A. fib, SVT. She denies any chest pain, any nausea any vomiting. Objective - Vital Signs Vital signs: Vital Signs Temp 97.5 F L 07/14/20 08:36 Pulse 97 07/14/20 08:36 Resp 20 07/14/20 08:36 BP 177/98 07/14/20 08:36 Pulse Ox 97 07/14/20 08:36 Intake & Output 07/13/20 07/14/20 07/14/20 18:59 06:59 18:59 Intake Total 698 Output Total 450 600 800 Balance 248 -600 -800 Weight 78.5 kg Intake: Oral 698 Output: Urine 450 600 800 Other: Voiding Method Urinal Urinal # Voids 2 1 - Exam GENERAL: The patient is lying in bed and is not in acute distress. CHEST: The heart rate is regular rate rhythm. No murmurs to auscultation. No carotid bruit bilaterally. LUNG: Clear to auscultation bilaterally no wheezing noted throughout. Not labored breathing. ABDOMEN/GI: Bowel sounds present in all 4 quadrants. No tenderness to palpation throughout. NEUROLOGICAL: Higher mental function: The patient is awake, alert, oriented to self, place and time. Patient is following commands. No aphasia and no neglect. Cranial nerves: The pupils are round, equal and reactive to light and accommodation. Visual bass are full to confrontation throughout (this was checked 4 times). Extraocular movement is intact no nystagmus is noted. Facial sensation is normal to touch throughout. The facial strength is normal througho ut. Hearing is normal bilaterally to hand rub. Tongue is midline and moved aeuo-da-pibk without any difficulty. No dysarthria is noted. Shoulder shrug is normal bilaterally. Motor: Gait is defered. The strength is 5 over 5 of bilateral upper extremities While bilateral lower extremities unable to assess since wrapped because of infection. Is able to lift right lower extremity above gravity without drift. Left lower extremity is amputated above knee and above to move it proximally. Cerebellum: Normal finger to nose bilaterally. Sensation: Sensation is normal to touch throughout. Reflexes (right/left): 2+ throughout bilateral upper extremities and not assessed lower extremities. Plantars: Not assessed since right lower extremity is wrapped while left there is amputation of extremity. - Labs CBC & Chem 7: 07/13/20 10:00 07/13/20 10:00 Labs: Abnormal Lab Results - Last 24 Hours (Table) 07/13/20 07/13/20 07/13/20 Range/Units 10:00 10:00 10:00 WBC 12.5 H (3.8-10.6) k/uL RBC 3.78 L (4.30-5.90) m/uL Hgb 7.5 L (13.0-17.5) gm/dL Hct 27.6 L (39.0-53.0) % MCV 73.2 L (80.0-100.0) fL MCH 19.8 L (25.0-35.0) pg MCHC 27.1 L (31.0-37.0) g/dL RDW 19.6 H (11.5-15.5) % Neutrophils # (Manual) 11.10 H (1.3-7.7) k/uL Potassium 3.4 L (3.5-5.1) mmol/L POC Glucose (mg/dL) (75-99) mg/dL Iron 4 L (65-175) ug/dL TIBC 213 L (228-460) ug/dL % Saturation 1.88 L (15.00-50.00) 07/13/20 07/13/20 07/13/20 Range/Units 11:36 16:28 20:30 WBC (3.8-10.6) k/uL RBC (4.30-5.90) m/uL Hgb (13.0-17.5) gm/dL Hct (39.0-53.0) % MCV (80.0-100.0) fL MCH (25.0-35.0) pg MCHC (31.0-37.0) g/dL RDW (11.5-15.5) % Neutrophils # (Manual) (1.3-7.7) k/uL Potassium (3.5-5.1) mmol/L POC Glucose (mg/dL) 119 H 209 H 116 H (75-99) mg/dL Iron (65-175) ug/dL TIBC (228-460) ug/dL % Saturation (15.00-50.00) 07/14/20 Range/Units 06:14 WBC (3.8-10.6) k/uL RBC (4.30-5.90) m/uL Hgb (13.0-17.5) gm/dL Hct (39.0-53.0) % MCV (80.0-100.0) fL MCH (25.0-35.0) pg MCHC (31.0-37.0) g/dL RDW (11.5-15.5) % Neutrophils # (Manual) (1.3-7.7) k/uL Potassium (3.5-5.1) mmol/L POC Glucose (mg/dL) 111 H (75-99) mg/dL Iron (65-175) ug/dL TIBC (228-460) ug/dL % Saturation (15.00-50.00) Microbiology - Last 24 Hours (Table) 07/10/20 18:36 Blood Culture Gram Stain - Final Blood Blood Culture - Final Acinetobacter baumannii Assessment and Plan Assessment: Old right occipital stroke (possibly cardioembolic) Toxic metabolic encephalopathy--resolved Benign positional vertigo Paroxysmal A. 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 I contacted the reading radiologist and he also felt was also right occipital as well. Patient is on Xarelto 20 mg daily(home dose) added aspirin 81 mg daily. Continue Lipitor 40 mg daily. Carotid duplex: Was reported as there is antegrade flow in the right vertebral artery. Did not show flow in the left vertebral artery at. Exam was limited. Less than 20% stenosis in both internal carotid arteries. 2-D echo was reported as left ventricle size is normal. There is mild concentric left ventricular hypertrophy. Ejection fraction of 50-55%. There is septal wall motion is delayed and consistent with conduction delay/bundle branch block. Mild tricuspid regurgitation is present. Cardiac monitoring. TSH: 0.562. Lipid panel: Triglyceride 66, cholesterol 87, LDL 32, HDL 42. CT angiogram of the head and neck: No evidence of stenosis. Regarding his peripheral vertigo continue meclizine to 12.5 mg twice a day Regarding 2-D echo finding of the conduction delay and bundle branch block will defer it to cardiology who's on board. Regarding the patient the arrhythmias such as the proximal A. fib as well as SVT we'll defer the management to the cardiology team as well as the primary team. Upon discharge the patient needs to follow-up with a neurologist as an outpatient. Sb Tesfaye M.D. Neuro-hospitalist Time with Patient: Less than 30
[2020-07-14] MEDS: NYSTATIN 100,000 UNIT/ML SUSP 500,000 UNIT/5 ML CUP PO SCH ×4 (10:54→21:46)
[2020-07-14] MEDS: MECLIZINE 12.5 MG TAB PO SCH ×2 (10:55→20:37)
[2020-07-14 11:22] LABS: Anisocytosis Slight; Basophils % (A) 0 %; Eosinophils # (A) 0.1 k/uL (0-0.7); Eosinophils % (A) 0 %; HCT 24.8 % (39.0-53.0); Hypochromasia Marked; Lymphocytes # (A) 0.6 k/uL (1.0-4.8); Lymphocytes % (A) 3 %; MCHC 28.2 g/dL (31.0-37.0); MCV 70.7 fL (80.0-100.0); Mean Platelet Volume 7.1; Microcytosis Marked; Monocytes # (A) 0.4 k/uL (0-1.0); Monocytes % (A) 2 %; Neutrophils # (A) 18.3 k/uL (1.3-7.7); Neutrophils % (A) 94 %; Platelet Count 416 k/uL (150-450); RBC 3.51 m/uL (4.30-5.90); RDW 18.9 % (11.5-15.5); WBC 19.5 k/uL (3.8-10.6)
[2020-07-14 11:42] LABS: Glucose,Whole Blood 127 mg/dL (75-99)
[2020-07-14 12:06] LABS: ALT 46 U/L (4-49); AST 39 U/L (17-59); African American GFR (CKD) >90 (>60 ml/min/1.73 sqM); Albumin 2.3 g/dL (3.5-5.0); Alkaline Phosphatase 167 U/L (38-126); Anion Gap 6 mmol/L; Bilirubin, Delta 0.1 mg/dL (0.0-0.2); Bilirubin,Unconjugated 0.5 mg/dL (0.0-1.1); Blood Urea Nitrogen 13 mg/dL (9-20); Carbon Dioxide 25 mmol/L (22-30); Chloride 109 mmol/L (98-107); Glucose 98 mg/dL (74-99); Magnesium 1.8 mg/dL (1.6-2.3); Non-African American GFR(CKD) >90 (>60 ml/min/1.73 sqM); Potassium 3.6 mmol/L (3.5-5.1); Sodium 140 mmol/L (137-145); Total Bilirubin 0.6 mg/dL (0.2-1.3); Total Protein 5.2 g/dL (6.3-8.2)
--- NOTE | 2020-07-14 13:25 | CT ---
CT right upper extremity HISTORY: Cellulitis, bacteremia Helical acquisition through the right upper extremity following 100 cc Isovue-300 intravenously. Auto mated exposure control for dose reduction. DLP 541.6 mGycm No comparisons Patient shows right shoulder arthroplasty change. There is streak artifact present. Subcutaneous edema changes are present. There is abnormal low attenuation insinuating along the fasci al planes and within some of the musculature of the proximal upper extremity and more peripheral righ t upper extremity. No focal abscess is identified. There is no periostitis to suggest osteomyelitis. Arthropathy changes noted within the elbow and wrist. IMPRESSION: Correlate for myositis, cellulitis. Postop changes. No evident abscess.
[2020-07-14 16:47] LABS: Glucose,Whole Blood 186 mg/dL (75-99)
[2020-07-14] MEDS: SODIUM CHLORIDE 0.9% 1,000 ML IV SCH (17:10)
[2020-07-14] MEDS: FORMOTEROL FUMARATE 20 MCG/2 ML NEBU INHALATION SCH (20:07)
[2020-07-14] MEDS: BUDESONIDE 1 MG/2 ML NEBU INHALATION SCH (20:07)
--- NOTE | 2020-07-14 20:20 | CONS ---
CONSULTATION PULMONARY/CRITICAL CARE CONSULTATION: DATE OF SERVICE: July 14, 2020. REASON FOR CONSULTATION: Shortness of breath. HISTORY OF PRESENT ILLNESS: This is a 75-year-old gentleman, well known to us. He has a history of multiple medical problems including CAD, COPD, DVT, hyperlipidemia, pneumonia, pulmonary embolism, rheumatoid arthritis, pancreatitis, viral pericarditis, previous chest tube placement, lower extremity ulcers, and a left nrckp-cdd-hwkh amputation. The patient presented to the emergency room back on July 10 at 17:39. He apparently fell at home. At that time, he had confusion, he had a fever, rapid heartbeat, and was complaining of right shoulder pain and swelling. He tells me today, that at that time, he also noticed that his breathing was bad, but this is the first we are being consulted on this patient. Anyway, the patient states that he has shortness of breath. Minimal cough. No production of phlegm. No fever or chills at this time. Some chest congestion. No wheezing. The patient does have a longstanding history of quite severe COPD. CURRENT MEDICATIONS: Reviewed. He is on Xarelto, DuoNeb morphine, nystatin, prednisone, gabapentin, and Percocet. ALLERGIES: Denied. MEDICAL HISTORY: As mentioned includes CAD, COPD, DVT, hyperlipidemia, pneumonia, pulmonary embolism, rheumatoid arthritis, pancreatitis, viral pericarditis, previous chest tube placement, nonhealing lower extremity ulcers and wound, and left fkxvf-vxw-ilya amputation. SURGICAL HISTORY: Includes among other things: Catheterization of the heart with stent placement, total left knee arthroplasty with spacer, right total shoulder replacement, left ankle ORIF, status post fracture, EGD, left rotator cuff repair, right ankle surgery, thoracentesis, chest tube placement, and left jqyzl-lvi-zwde amputation, April 2019. SOCIAL HISTORY: Positive for ongoing tobacco use. Denies any alcohol or illicit drug use. FAMILY HISTORY: Positive for a sister with cancer and a father apparently had a history of rheumatoid arthritis. Mother had a history of dementia. REVIEW OF SYSTEMS: CONSTITUTIONAL: Weakness. NEUROLOGIC negative. HEENT negative. CARDIOVASCULAR: Negative. PULMONARY: Shortness of breath, minimal dry cough. GI negative. negative. RHEUMATOLOGIC negative. IMMUNOLOGIC negative. ENDOCRINOLOGIC negative. DERMATOLOGIC negative. MUSCULOSKELETAL: Right shoulder pain. PHYSICAL EXAMINATION: VITAL SIGNS: Current vital signs include: Temperature 98.3, heart rate 80, respiratory rate 20, blood pressure 124/85. Mean 98. 4 L saturation 95%. GENERAL: Appears in no acute distress. HEENT: Examination is grossly unremarkable. NECK: Supple. Full range of motion. No adenopathy or thyromegaly. No neck vein distention. CARDIOVASCULAR: Examination reveals regular rhythm and rate. Heart rate about mid 90s. S1, S2 normal. Heart sounds are distant. LUNGS: Lungs reveal diminished breath sounds throughout. A few scattered expiratory wheezes. No rhonchi. No crackles. ABDOMEN: Soft. Bowel sounds are heard. EXTREMITIES: Extremities reveal mild edema. The left lower extremity reveals a left vvnzu-fty-arfn amputation. SKIN: Skin reveals multiple areas of ecchymoses. Right forearm and wrist are bandaged. NEUROLOGIC: Examination is brief but nonfocal. CURRENT LABORATORY DATA: Includes a white count 19.5, hemoglobin 7, hematocrit 24.8, platelet count 460,000, sodium, potassium normal. Chloride 109 CO2 25, anion gap 6, BUN and creatinine were 13 and 0.74, calcium 8, magnesium 1.8, ALT 167. C-reactive protein 204.2, total protein 5.2, albumin is 2.3. Microbiologic study show blood cultures positive for Acinetobacter baumannii. Venous Dopplers of the right upper extremity is negative for DVT. Chest x-ray on July 13 shows scattered subpleural fibrotic changes and some mild increased patchy density of the left lower lobe. Medications are reviewed. Currently, he is on Unasyn, aspirin, Lipitor, Neurontin, insulin, DuoNeb, meclizine, metoprolol, morphine, nystatin, oxycodone, Protonix, potassium, prednisone 40 mg, Xarelto, and saline IV at 50 mL an hour. ASSESSMENT: 1. Shortness of breath secondary to chronic obstructive pulmonary disease exacerbation which has been present since the day of admission. 2. Recent fall with right shoulder injury, and cellulitis to the right forearm and wrist. 3. No evidence to suggest pneumonia at this time. 4. Recent history of pulmonary embolism, in February, currently on treatment. 5. Status post left mncla-wcc-lcac amputation. 6. Coronary artery disease. 7. History of deep vein thrombosis and pulmonary embolism. 8. Hyperlipidemia. 9. History of rheumatoid arthritis. 10.History of pancreatitis. 11.History of viral pericarditis. 12.Multiple other medical problems and comorbidities. PLAN: Currently, the patient is on updrafts q.i.d. and p.r.n. The patient is also getting prednisone 40. I will add some Pulmicort 1 mg along with Perforomist 20 mcg twice a day. Additional recommendations and suggestions are forthcoming. His COPD is only mildly active in my opinion at this time. MMODL / IJN: [id number] / MTDKristina
[2020-07-14] MEDS: ATORVASTATIN 40 MG TAB PO SCH (20:36)
[2020-07-14] MEDS: INSULIN DETEMIR (LEVEMIR) 100 UNIT/ML SYR SQ SCH (20:38)
--- NOTE | 2020-07-14 20:43 | PN ---
PROGRESS NOTE REASON FOR FOLLOWUP: Right upper extremity cellulitis and bacteremia. INTERVAL HISTORY: Patient is currently afebrile. The patient is breathing comfortably. Pain and discomfort to the right upper extremity slightly decreased. Swelling has decreased. The patient denies having any chest pain. Complaining of shortness of breath and cough. No nausea, no vomiting. No abdominal pain no diarrhea. PHYSICAL EXAMINATION: Blood pressure 141/80 with a pulse of 85, temperature is 97.9. He is 98% on 4 L nasal cannula. General description is an elderly male lying in bed in no distress. Respiratory system: Unlabored breathing, decreased breath sounds. No wheeze. Heart S1, S2. Regular rate and rhythm. Abdomen soft, no tenderness. Right upper extremity swelling persists. Redness slightly decreased. LABS: Hemoglobin ( ), white count 19.5, creatinine 0.70, CRP of 204. IMPRESSION/PLAN: Patient with Enterobacter bacteremia, source likely right upper extremity cellulitis. CT did not show any drainable abscess seen. Continue with Unasyn. We will watch his white count and inflammatory markers closely as well as repeat blood cultures. Daughter at the bedside. Questions were answered. MMODL / IJN: [id number] /
[2020-07-14 20:49] LABS: Glucose,Whole Blood 147 mg/dL (75-99)
[2020-07-15] MEDS: oxyCODONE-APAP 10-325MG 1 EACH TAB PO PRN ×3 (00:09→20:38)
[2020-07-15] MEDS: AMPICILLIN-SULBACTAM 3 GM in SODIUM CHLORIDE 0.9% 100 ML IVPB SCH ×4 (03:47→20:44)
[2020-07-15] MEDS: PANTOPRAZOLE 40 MG TABLET PO SCH ×2 (06:37→17:44)
[2020-07-15 06:42] LABS: Glucose,Whole Blood 119 mg/dL (75-99)
[2020-07-15] MEDS: INSULIN ASPART (NovoLOG) 100 UNIT/ML VIAL SQ SCH ×4 (06:44→20:40)
[2020-07-15] MEDS: IPRATROPIUM-ALBUTEROL 3 ML NEB INHALATION SCH ×4 (07:50→19:59)
[2020-07-15] MEDS: BUDESONIDE 1 MG/2 ML NEBU INHALATION SCH ×2 (07:50→19:59)
[2020-07-15] MEDS: FORMOTEROL FUMARATE 20 MCG/2 ML NEBU INHALATION SCH ×2 (07:50→19:59)
[2020-07-15 08:43] LABS: African American GFR (CKD) >90 (>60 ml/min/1.73 sqM); Anion Gap 5 mmol/L; Blood Urea Nitrogen 18 mg/dL (9-20); Calcium 7.7 mg/dL (8.4-10.2); Carbon Dioxide 28 mmol/L (22-30); Chloride 109 mmol/L (98-107); Glucose 101 mg/dL (74-99); Magnesium 1.7 mg/dL (1.6-2.3); Non-African American GFR(CKD) 81 (>60 ml/min/1.73 sqM); Potassium 3.6 mmol/L (3.5-5.1); Sodium 142 mmol/L (137-145)
--- NOTE | 2020-07-15 10:23 | CT ---
EXAMINATION TYPE: CT brain wo con DATE OF EXAM: 07/15/2020 COMPARISON: CT brain 07/10/2020 HISTORY: Transient Amnesia CT DLP: 1099.4 mGycm Automated exposure control for dose reduction was used. Helical imaging through the brain FINDINGS: Cerebral vascular calcifications are present. Possible arachnoid cyst in the midline posterior fossa posteriorly is unchanged. Cortical atrophy again noted. White matter low-attenuation changes in the p eriventricular location, left occipital lobe again seen. There is no hemorrhage. IMPRESSION: FINDINGS ARE SIMILAR TO PRIOR EXAM, AGE RELATED CHANGES AND PROBABLE CHRONIC SMALL VESSEL ISCHEMIA, C ONSIDER MRI INDICATED
[2020-07-15] MEDS: METOPROLOL TARTRATE 50 MG TAB PO SCH (10:29)
[2020-07-15] MEDS: ASPIRIN 81 MG PO SCH (10:29)
[2020-07-15] MEDS: NYSTATIN 100,000 UNIT/ML SUSP 500,000 UNIT/5 ML CUP PO SCH ×4 (10:29→20:44)
[2020-07-15] MEDS: predniSONE 20 MG TAB PO SCH (10:29)
[2020-07-15] MEDS: MORPHINE SULFATE ER 15 MG TABLET PO SCH ×2 (10:30→20:39)
[2020-07-15] MEDS: RIVAROXABAN 20 MG TAB PO SCH (10:31)
[2020-07-15] MEDS: GABAPENTIN 300 MG CAP PO SCH ×3 (10:31→20:39)
[2020-07-15] MEDS: MECLIZINE 12.5 MG TAB PO SCH ×2 (10:31→20:39)
[2020-07-15 12:36] LABS: Glucose,Whole Blood 165 mg/dL (75-99)
[2020-07-15] MEDS: SODIUM CHLORIDE 0.9% 1,000 ML IV SCH ×2 (13:15→17:21)
--- NOTE | 2020-07-15 13:21 | P.PN ---
Subjective Progress Note Date: 07/14/20 Principal diagnosis: Enterobacter bacteremia/right upper extremity cellulitis Dyspnea/acute exacerbation COPD Old left occipital infarct 75 years male who presents with multiple problems including fever, sepsis with pneumonia and right upper extremity cellulitis and a right foot wound and positive blood culture, altered mental status is improved now, elevated troponin. Patient is followed by several consultants including neurology, cardiology. 07/14/2020 Patient is seen and evaluated in room with daughter at bedside; daughter has numerous questions about patient's diagnosis, current treatment, prognosis; concerned about difficulty breathing Vital signs review shows a temperature of 98.3, pulse 80, respiration 20 and blood pressure of 125/85. SpO2 of 95% on 4 L Patient is evaluated by ID for Enterobacter bacteremia from right upper extremity cellulitis and is recommended to continue with IV Unasyn at this time; final tapering off antibiotic therapy is pending; pulmonary saw patient and recommended to continue with oral prednisone and nebulizer treatments; Pulmicort nebulization and Perforomist inhalation was added Objective - Vital Signs Vital signs: Vital Signs Temp 98.3 F 07/14/20 11:30 Pulse 96 07/14/20 12:19 Resp 20 07/14/20 11:30 BP 124/85 07/14/20 11:30 Pulse Ox 95 07/14/20 11:30 Intake & Output 07/13/20 07/14/20 07/14/20 18:59 06:59 18:59 Intake Total 698 375 Output Total 450 600 800 Balance 248 600 -425 Weight 78.5 kg Intake: Oral 698 375 Output: Urine 450 600 800 Other: Voiding Method Urinal Urinal # Voids 2 1 - Exam PHYSICAL EXAMINATION: GENERAL: The patient is alert and oriented x3, not in any acute distress. Well developed, well nourished. HEENT: Pupils are round and equally reacting to light. EOMI. No scleral icterus. No conjunctival pallor. Normocephalic, atraumatic. No pharyngeal erythema. No thyromegaly. CARDIOVASCULAR: S1 and S2 present. No murmurs, rubs, or gallops. PULMONARY: Chest is clear to auscultation, no wheezing or crackles. ABDOMEN: Soft, nontender, nondistended, normoactive bowel sounds. No palpable organomegaly. MUSCULOSKELETAL: No joint swelling or deformity. EXTREMITIES: No cyanosis, clubbing, or pedal edema. NEUROLOGICAL: Gross neurological examination did not reveal any focal deficits. SKIN: No rashes. - Labs CBC & Chem 7: 07/14/20 10:51 07/15/20 08:00 Labs: Abnormal Lab Results - Last 24 Hours (Table) 07/13/20 07/13/20 07/13/20 Range/Units 10:00 10:00 16:28 WBC 12.5 H (3.8-10.6) k/uL RBC 3.78 L (4.30-5.90) m/uL Hgb 7.5 L (13.0-17.5) gm/dL Hct 27.6 L (39.0-53.0) % MCV 73.2 L (80.0-100.0) fL MCH 19.8 L (25.0-35.0) pg MCHC 27.1 L (31.0-37.0) g/dL RDW 19.6 H (11.5-15.5) % Neutrophils # (1.3-7.7) k/uL Neutrophils # (Manual) 11.10 H (1.3-7.7) k/uL Lymphocytes # (1.0-4.8) k/uL Chloride (98-107) mmol/L POC Glucose (mg/dL) 209 H (75-99) mg/dL Calcium (8.4-10.2) mg/dL Iron 4 L (65-175) ug/dL TIBC 213 L (228-460) ug/dL % Saturation 1.88 L (15.00-50.00) Alkaline Phosphatase (38-126) U/L C-Reactive Protein (<10.0) mg/L Total Protein (6.3-8.2) g/dL Albumin (3.5-5.0) g/dL 07/13/20 07/14/20 07/14/20 Range/Units 20:30 06:14 10:51 WBC (3.8-10.6) k/uL RBC (4.30-5.90) m/uL Hgb (13.0-17.5) gm/dL Hct (39.0-53.0) % MCV (80.0-100.0) fL MCH (25.0-35.0) pg MCHC (31.0-37.0) g/dL RDW (11.5-15.5) % Neutrophils # (1.3-7.7) k/uL Neutrophils # (Manual) (1.3-7.7) k/uL Lymphocytes # (1.0-4.8) k/uL Chloride 109 H (98-107) mmol/L POC Glucose (mg/dL) 116 H 111 H (75-99) mg/dL Calcium 8.0 L (8.4-10.2) mg/dL Iron (65-175) ug/dL TIBC (228-460) ug/dL % Saturation (15.00-50.00) Alkaline Phosphatase 167 H (38-126) U/L C-Reactive Protein (<10.0) mg/L Total Protein 5.2 L (6.3-8.2) g/dL Albumin 2.3 L (3.5-5.0) g/dL 07/14/20 07/14/20 07/14/20 Range/Units 10:51 10:51 11:33 WBC 19.5 H (3.8-10.6) k/uL RBC 3.51 L (4.30-5.90) m/uL Hgb 7.0 L (13.0-17.5) gm/dL Hct 24.8 L (39.0-53.0) % MCV 70.7 L (80.0-100.0) fL MCH 20.0 L (25.0-35.0) pg MCHC 28.2 L (31.0-37.0) g/dL RDW 18.9 H (11.5-15.5) % Neutrophils # 18.3 H (1.3-7.7) k/uL Neutrophils # (Manual) (1.3-7.7) k/uL Lymphocytes # 0.6 L (1.0-4.8) k/uL Chloride (98-107) mmol/L POC Glucose (mg/dL) 127 H (75-99) mg/dL Calcium (8.4-10.2) mg/dL Iron (65-175) ug/dL TIBC (228-460) ug/dL % Saturation (15.00-50.00) Alkaline Phosphatase (38-126) U/L C-Reactive Protein 204.2 H (<10.0) mg/L Total Protein (6.3-8.2) g/dL Albumin (3.5-5.0) g/dL Assessment and Plan Assessment: Right upper extremity cellulitis with sepsis Altered mental status possible metabolic encephalopathy Elevated troponin Positive blood culture Left lower lobe pneumonia, possible aspiration pneumonia severe anemia 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 Patient is followed by several consultants including neurology, cardiology. We will ask for swallow evaluation, consult infectious disease team. Check ultrasound of the right upper extremity. Repeat labs today and tomorrow. We'll check chest x-ray Also we'll do anemia workup. Lower fluid to 50 mL/hr of normal saline. And give 1 dose of Lasix Labs and medication were reviewed.. Continue same treatment. Continue with symptomatic treatment. Resume home medication. Monitor lytes and vitals. DVT and GI prophylaxis. Further recommendationsas per clinical course of the patient DVT prophylaxis: Xarelto GI Prophylaxis: Ppi
--- NOTE | 2020-07-15 15:57 | PN ---
PROGRESS NOTE This is a 75-year-old gentleman who apparently was admitted a number of days back. We were just consulted yesterday on him. We were consulted for his chronic shortness of breath. He does have history of severe COPD. As my note mentions, in my opinion, he is pretty much at baseline. He initially came in because he fell at home and injured his right shoulder and developed some cellulitis of the right forearm and wrist. That was his reason for coming in. His chest x-ray does not suggest any evidence of pneumonia at this time. He did have a previous history of pulmonary embolism back in February. He has a number of medical issues including a left AKA, CAD, DVT and pulmonary embolism, hyperlipidemia, and rheumatoid arthritis to name a few diagnoses. Currently, he is pretty much at baseline. When I went into the room, he was lying flat in bed. He had O2 in place at 4 L. This is his baseline oxygen requirement. He was in no distress. He was actually sleeping. I did not wake him. PHYSICAL EXAMINATION: VITAL SIGNS: Vital signs are reviewed. Temperature 98.2, heart rate 88, respiratory rate 18, blood pressure 118/71, mean 86, 4 L saturation 99%. GENERAL: Appears in no acute distress. HEENT: Examination is grossly unremarkable. NECK: Supple. Full range of motion. No adenopathy. Neck veins are flat. CARDIOVASCULAR: Examination reveals regular rhythm and rate. Heart rate 90 beats per minute. S1, S2 normal. No S3, S4, or murmur. Heart sounds are distant. LUNGS: Reveal diminished breath sounds throughout. A few scattered rhonchi are noted. No wheezes or crackles. Breath sounds are diminished bilaterally. ABDOMEN: Soft. Bowel sounds are heard. EXTREMITIES: Extremities reveal a left AKA. None to mild edema noted in the right lower extremity. Skin examination reveals multiple areas of ecchymoses. The right forearm and wrist are bandaged. NEUROLOGIC: Examination is nonfocal. LABS: Reviewed. Sodium 142, potassium 3.6, chloride 109, CO2 28 ,anion gap 5. BUN and creatine are 8 and 0.94. Microbiologic study show blood cultures positive for Acinetobacter baumannii. IMAGING: The patient had a brain CT done on July 15. Findings were similar to the prior examination. There were age-related changes and probable chronic small-vessel ischemia. Medications are reviewed. Venous Doppler and brain CT scan are reviewed. ASSESSMENT: 1. Moderately severe to severe chronic obstructive pulmonary disease, causing the patient's shortness of breath, which is primarily on exertion, pretty much at baseline. 2. Recent fall with right shoulder injury, and development of cellulitis of the right forearm and right wrist. 3. No evidence at this time to suggest pneumonia. 4. Recent history of pulmonary embolism, in February, currently on treatment. 5. Status post left [id number] amputation. 6. Coronary artery disease. 7. History of deep venous thrombosis and pulmonary embolism. 8. Hyperlipidemia. 9. History of rheumatoid arthritis. 10.History of pancreatitis. 11.History of viral pericarditis. 12.Multiple other medical problems and comorbidities. PLAN: Currently, the patient is on updrafts q.i.d. and p.r.n. The patient is also getting prednisone 40 mg daily. Yesterday, I added Pulmicort 1 mg along with Perforomist 20 mcg twice a day. Today, he is lying flat in bed. He is on 4 L. He is not demonstrating any respiratory distress. I believe he is pretty much at baseline. MMODL / IJN: [id number] / MTDD
[2020-07-15 16:50] LABS: Glucose,Whole Blood 254 mg/dL (75-99)
[2020-07-15] MEDS ORDERED: INSULIN ASPART (NovoLOG) 100 UNIT/ML VIAL SQ ONE (17:15)
[2020-07-15 20:06] LABS: Glucose,Whole Blood 180 mg/dL (75-99)
[2020-07-15] MEDS: INSULIN DETEMIR (LEVEMIR) 100 UNIT/ML SYR SQ SCH (20:39)
[2020-07-15] MEDS: ATORVASTATIN 40 MG TAB PO SCH (20:39)
--- NOTE | 2020-07-15 23:07 | PN ---
PROGRESS NOTE DATE OF SERVICE: 07/15/2020. REASON FOR FOLLOWUP: Right upper extremity cellulitis and Acinetobacter bacteremia. INTERVAL HISTORY: Patient is currently afebrile. He is breathing comfortably. Denies having any chest pain or shortness of breath. Some cough which is dry in nature. No nausea, vomiting. No abdominal pain. Overall swelling in his right arm has increased. PHYSICAL EXAMINATION: Blood pressure 126/77 with a pulse of 82. Temperature 97.4. He is 92% on 6 L nasal cannula. General description is an elderly male lying in bed in no distress. Respiratory system: Unlabored breathing, decreased breath sounds in the base. No wheeze. Heart S1, S2. Regular rate and rhythm. Abdomen soft. No tenderness. Right upper extremity swelling persists. Persistent redness has decreased. No drainage. LABS: Creatinine 0.94. DIAGNOSTIC IMPRESSION AND PLAN: Patient with right upper extremity cellulitis with Acinetobacter bacteremia. Patient is covered with Unasyn. Cellulitis improving. Follow up blood culture has been negative. To continue with Unasyn and monitor clinical course closely. MMODL / IJN: [id number] /
[2020-07-16] MEDS: AMPICILLIN-SULBACTAM 3 GM in SODIUM CHLORIDE 0.9% 100 ML IVPB SCH ×4 (02:16→21:38)
[2020-07-16 05:59] LABS: Glucose,Whole Blood 272 mg/dL (75-99)
[2020-07-16] MEDS: PANTOPRAZOLE 40 MG TABLET PO SCH ×2 (06:31→17:28)
[2020-07-16] MEDS: INSULIN ASPART (NovoLOG) 100 UNIT/ML VIAL SQ SCH ×4 (06:31→21:36)
[2020-07-16 08:20] LABS: African American GFR (CKD) >90 (>60 ml/min/1.73 sqM); Anion Gap 3 mmol/L; Blood Urea Nitrogen 19 mg/dL (9-20); Carbon Dioxide 29 mmol/L (22-30); Chloride 109 mmol/L (98-107); Glucose 125 mg/dL (74-99); Non-African American GFR(CKD) 88 (>60 ml/min/1.73 sqM); Sodium 141 mmol/L (137-145)
[2020-07-16 08:23] LABS: Magnesium 1.9 mg/dL (1.6-2.3); Potassium 3.9 mmol/L (3.5-5.1)
[2020-07-16] MEDS: MECLIZINE 12.5 MG TAB PO SCH ×2 (09:29→21:38)
[2020-07-16] MEDS: GABAPENTIN 300 MG CAP PO SCH ×3 (09:29→21:36)
[2020-07-16] MEDS: predniSONE 20 MG TAB PO SCH (09:29)
[2020-07-16] MEDS: NYSTATIN 100,000 UNIT/ML SUSP 500,000 UNIT/5 ML CUP PO SCH ×4 (09:29→21:38)
[2020-07-16] MEDS: ASPIRIN 81 MG PO SCH (09:29)
[2020-07-16] MEDS: METOPROLOL TARTRATE 50 MG TAB PO SCH (09:29)
[2020-07-16] MEDS: RIVAROXABAN 20 MG TAB PO SCH (09:30)
[2020-07-16] MEDS: MORPHINE SULFATE ER 15 MG TABLET PO SCH ×2 (09:30→21:35)
[2020-07-16] MEDS: BUDESONIDE 1 MG/2 ML NEBU INHALATION SCH ×2 (09:35→19:48)
[2020-07-16] MEDS: IPRATROPIUM-ALBUTEROL 3 ML NEB INHALATION SCH ×4 (09:35→19:48)
[2020-07-16] MEDS: FORMOTEROL FUMARATE 20 MCG/2 ML NEBU INHALATION SCH ×2 (09:35→19:48)
--- NOTE | 2020-07-16 10:07 | P.PN ---
Subjective Progress Note Date: 07/15/20 Principal diagnosis: Enterobacter bacteremia/right upper extremity cellulitis Dyspnea/acute exacerbation COPD Old left occipital infarct 75 years male who presents with multiple problems including fever, sepsis with pneumonia and right upper extremity cellulitis and a right foot wound and positive blood culture, altered mental status is improved now, elevated troponin. Patient is followed by several consultants including neurology, cardiology. 07/14/2020 Patient is seen and evaluated in room with daughter at bedside; daughter has numerous questions about patient's diagnosis, current treatment, prognosis; concerned about difficulty breathing Vital signs review shows a temperature of 98.3, pulse 80, respiration 20 and blood pressure of 125/85. SpO2 of 95% on 4 L Patient is evaluated by ID for Enterobacter bacteremia from right upper extremity cellulitis and is recommended to continue with IV Unasyn at this time; final tapering off antibiotic therapy is pending; pulmonary saw patient and recommended to continue with oral prednisone and nebulizer treatments; Pulmicort nebulization and Perforomist inhalation was added 07/15/2020 Patient is seen and evaluated with at bedside; last 24 hours events discussed with RN; patient did have episode of marked confusion and stat CT of the head was done on neurology recommendations which was unremarkable; patient is currently awake alert and oriented and seems to be at baseline; concerned about worsening swelling of right upper extremity Vital signs are stable with a temperature of 97.4, pulse 82, blood pressure of 126/77, SpO2 of 92% on 4 L Patient is currently being treated for right upper extremity cellulitis with Acinetobacter bacteremia; IDs following and recommending to continue with current IV antibiotic therapy in form of Unasyn; CT of the right upper extremity was done which was negative for abscess with possibility of myositis/cellulitis Pulmonary disease following for acute exacerbation of COPD and recommending to continue with nebulizer treatments 4 times a day and when necessary; remains on prednisone 40 mg daily; patient was started on Pulmicort along with Perforomist yesterday which does seem to have improved respiratory status Objective - Vital Signs Vital signs: Vital Signs Temp 98.2 F 07/15/20 08:20 Pulse 88 07/15/20 11:40 Resp 18 07/15/20 08:20 BP 118/71 07/15/20 08:20 Pulse Ox 99 07/15/20 08:20 Intake & Output 07/14/20 07/15/20 07/15/20 18:59 06:59 18:59 Intake Total 615 400 750 Output Total 900 250 Balance -285 150 750 Weight 79 kg Intake: Intake, IV Titration 400 500 Amount Ampicillin-Sulbactam 3 gm 100 100 In Sodium Chloride 0.9% 100 ml @ 200 mls/hr IVPB Q6H SURYA Rx#:[id number] Sodium Chloride 0.9% 1, 300 400 000 ml @ 50 mls/hr IV . Q20H SURYA Rx#:[id number] Oral 615 250 Output: Urine 900 250 Other: Voiding Method Urinal Urinal - Exam PHYSICAL EXAMINATION: GENERAL: The patient is alert and oriented x3, not in any acute distress. Well developed, well nourished. HEENT: Pupils are round and equally reacting to light. EOMI. No scleral icterus. No conjunctival pallor. Normocephalic, atraumatic. No pharyngeal erythema. No thyromegaly. CARDIOVASCULAR: S1 and S2 present. No murmurs, rubs, or gallops. PULMONARY: Chest is clear to auscultation, no wheezing or crackles. ABDOMEN: Soft, nontender, nondistended, normoactive bowel sounds. No palpable organomegaly. MUSCULOSKELETAL: No joint swelling or deformity. EXTREMITIES: No cyanosis, clubbing, or pedal edema. NEUROLOGICAL: Gross neurological examination did not reveal any focal deficits. SKIN: No rashes. - Labs CBC & Chem 7: 07/14/20 10:51 07/16/20 07:46 Labs: Abnormal Lab Results - Last 24 Hours (Table) 07/14/20 07/14/20 07/15/20 Range/Units 16:29 20:28 06:40 Chloride (98-107) mmol/L Glucose (74-99) mg/dL POC Glucose (mg/dL) 186 H 147 H 119 H (75-99) mg/dL Calcium (8.4-10.2) mg/dL 07/15/20 07/15/20 Range/Units 08:00 12:35 Chloride 109 H (98-107) mmol/L Glucose 101 H (74-99) mg/dL POC Glucose (mg/dL) 165 H (75-99) mg/dL Calcium 7.7 L (8.4-10.2) mg/dL Microbiology - Last 24 Hours (Table) 07/14/20 10:51 Blood Culture - Preliminary Blood No Growth after 24 hours Assessment and Plan Assessment: Right upper extremity cellulitis with sepsis Altered mental status possible metabolic encephalopathy Elevated troponin Positive blood culture Left lower lobe pneumonia, possible aspiration pneumonia severe anemia 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 Patient is followed by several consultants including neurology, cardiology. We will ask for swallow evaluation, consult infectious disease team. Check ultrasound of the right upper extremity. Repeat labs today and tomorrow. We'll check chest x-ray Also we'll do anemia workup. Lower fluid to 50 mL/hr of normal saline. And give 1 dose of Lasix Labs and medication were reviewed.. Continue same treatment. Continue with symptomatic treatment. Resume home medication. Monitor lytes and vitals. DVT and GI prophylaxis. Further recommendationsas per clinical course of the patient DVT prophylaxis: Xarelto GI Prophylaxis: Ppi
[2020-07-16 11:56] LABS: Glucose,Whole Blood 137 mg/dL (75-99)
[2020-07-16] MEDS: methylPREDNISolone SOD SUCCI 125 MG/2 ML VIAL IV SCH ×2 (12:30→17:28)
[2020-07-16 12:34] VITALS: BMI 26.9
--- NOTE | 2020-07-16 16:09 | P.PN ---
Subjective Progress Note Date: 07/16/20 Principal diagnosis: Enterobacter bacteremia/right upper extremity cellulitis Dyspnea/acute exacerbation COPD Old left occipital infarct 75 years male who presents with multiple problems including fever, sepsis with pneumonia and right upper extremity cellulitis and a right foot wound and positive blood culture, altered mental status is improved now, elevated troponin. Patient is followed by several consultants including neurology, cardiology. 07/14/2020 Patient is seen and evaluated in room with daughter at bedside; daughter has numerous questions about patient's diagnosis, current treatment, prognosis; concerned about difficulty breathing Vital signs review shows a temperature of 98.3, pulse 80, respiration 20 and blood pressure of 125/85. SpO2 of 95% on 4 L Patient is evaluated by ID for Enterobacter bacteremia from right upper extremity cellulitis and is recommended to continue with IV Unasyn at this time; final tapering off antibiotic therapy is pending; pulmonary saw patient and recommended to continue with oral prednisone and nebulizer treatments; Pulmicort nebulization and Perforomist inhalation was added 07/15/2020 Patient is seen and evaluated with at bedside; last 24 hours events discussed with RN; patient did have episode of marked confusion and stat CT of the head was done on neurology recommendations which was unremarkable; patient is currently awake alert and oriented and seems to be at baseline; concerned about worsening swelling of right upper extremity Vital signs are stable with a temperature of 97.4, pulse 82, blood pressure of 126/77, SpO2 of 92% on 4 L Patient is currently being treated for right upper extremity cellulitis with Acinetobacter bacteremia; IDs following and recommending to continue with current IV antibiotic therapy in form of Unasyn; CT of the right upper extremity was done which was negative for abscess with possibility of myositis/cellulitis Pulmonary disease following for acute exacerbation of COPD and recommending to continue with nebulizer treatments 4 times a day and when necessary; remains on prednisone 40 mg daily; patient was started on Pulmicort along with Perforomist yesterday which does seem to have improved respiratory status 07/16/2020 Patient is seen and evaluated with at bedside; continues to report patient being somewhat confused Vital signs are stable with a temperature of 98.7, pulse 84, respiration 20 and blood pressure 155/88 with SpO2 of 93% on 8 L ID is following and recommending to continue with IV Unasyn for Enterobacter bacteremia from right upper extremity cellulitis; CT of the arm was done which was negative for an abscess; pulmonary is following and have optimized treatment for COPD exacerbation; patient has been evaluated and followed by neurology; repeat CAT scan has been negative; we will wait for neurology to evaluate patient tomorrow morning for further recommendations Objective - Vital Signs Vital signs: Vital Signs Temp 98.0 F 07/16/20 08:35 Pulse 76 07/16/20 09:45 Resp 20 07/16/20 08:35 BP 162/82 07/16/20 08:35 Pulse Ox 96 07/16/20 08:35 Intake & Output 07/15/20 07/16/20 07/16/20 18:59 06:59 18:59 Intake Total 990 220 125 Output Total 175 Balance 990 45 125 Weight 78.1 kg Intake: Intake, IV Titration 500 100 Amount Ampicillin-Sulbactam 3 gm 100 100 In Sodium Chloride 0.9% 100 ml @ 200 mls/hr IVPB Q6H SURYA Rx#:[id number] Sodium Chloride 0.9% 1, 400 000 ml @ 50 mls/hr IV . Q20H SURYA Rx#:[id number] Oral 490 120 125 Output: Urine 175 Other: Voiding Method Urinal # Voids 2 1 - Exam PHYSICAL EXAMINATION: GENERAL: The patient is alert and oriented x3, not in any acute distress. Well developed, well nourished. HEENT: Pupils are round and equally reacting to light. EOMI. No scleral icterus. No conjunctival pallor. Normocephalic, atraumatic. No pharyngeal erythema. No thyromegaly. CARDIOVASCULAR: S1 and S2 present. No murmurs, rubs, or gallops. PULMONARY: Chest is clear to auscultation, no wheezing or crackles. ABDOMEN: Soft, nontender, nondistended, normoactive bowel sounds. No palpable organomegaly. MUSCULOSKELETAL: No joint swelling or deformity. EXTREMITIES: No cyanosis, clubbing, or pedal edema. NEUROLOGICAL: Gross neurological examination did not reveal any focal deficits. SKIN: No rashes. - Labs CBC & Chem 7: 07/14/20 10:51 07/16/20 07:46 Labs: Abnormal Lab Results - Last 24 Hours (Table) 07/15/20 07/15/20 07/15/20 Range/Units 12:35 16:48 20:04 Chloride (98-107) mmol/L Glucose (74-99) mg/dL POC Glucose (mg/dL) 165 H 254 H 180 H (75-99) mg/dL Calcium (8.4-10.2) mg/dL 07/16/20 07/16/20 Range/Units 05:57 07:46 Chloride 109 H (98-107) mmol/L Glucose 125 H (74-99) mg/dL POC Glucose (mg/dL) 272 H (75-99) mg/dL Calcium 8.0 L (8.4-10.2) mg/dL Microbiology - Last 24 Hours (Table) 07/14/20 10:51 Blood Culture - Preliminary Blood No Growth after 24 hours Assessment and Plan Assessment: Right upper extremity cellulitis with sepsis Altered mental status possible metabolic encephalopathy Elevated troponin Positive blood culture Left lower lobe pneumonia, possible aspiration pneumonia severe anemia 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 Patient is followed by several consultants including neurology, cardiology. We will ask for swallow evaluation, consult infectious disease team. Check ultrasound of the right upper extremity. Repeat labs today and tomorrow. We'll check chest x-ray Also we'll do anemia workup. Lower fluid to 50 mL/hr of normal saline. And give 1 dose of Lasix Labs and medication were reviewed.. Continue same treatment. Continue with symptomatic treatment. Resume home medication. Monitor lytes and vitals. DVT and GI prophylaxis. Further recommendationsas per clinical course of the patient DVT prophylaxis: Xarelto GI Prophylaxis: Ppi
--- NOTE | 2020-07-16 16:35 | PN ---
PROGRESS NOTE PULMONARY/CRITICAL CARE PROGRESS NOTE: DATE OF SERVICE: July 16, 2020 HISTORY: A 75-year-old gentleman, well known to our service. He came in on July 10. He mostly came in because he fell at home and injured his right shoulder and then developed some cellulitis of the right forearm and wrist. We were asked to see him in consultation, he states that he was also short of breath. I believe he is pretty much at baseline. Today, he apparently was more short of breath. That is because his oxygen was off. We did add Solu-Medrol in place of oral prednisone. He does have a history of multiple medical problems including pulmonary embolism, left AKA, CAD, DVT, hyperlipidemia, rheumatoid arthritis, among other things. Anyway, the patient should feel better once the oxygen therapy is on and once he is started on Solu-Medrol versus prednisone. His other medications are appropriate. PHYSICAL EXAMINATION: VITAL SIGNS: Current vital signs are reviewed. Temperature 98.7, heart rate 84, respiratory rate 24, blood pressure 155/88 and saturations are 93% on 6 L. GENERAL: He appears in no acute distress. HEENT: Examination is grossly unremarkable. Nasal O2 noted. NECK: Supple. Full range of motion. No adenopathy. Neck veins are flat. CARDIOVASCULAR: Examination reveals regular rhythm and rate. S1, S2 normal. Heart rate 76. Heart sounds are distant. LUNGS: Inspiratory and expiratory wheezes. They are high-pitched. Breath sounds equal but diminished throughout. ABDOMEN: Soft. Bowel sounds are heard. EXTREMITIES: Extremities reveal left zxfvi-oel-jyrs amputation. Right lower extremity has some mild edema. Skin with multiple areas of ecchymoses. NEUROLOGIC: Examination is nonfocal. LABS: Reviewed. Sodium 141, potassium 3.9, chloride 109, CO2 29, anion gap is 3, BUN and creatinine were 19 and 0.82. Microbiologic study show blood cultures to be positive on July 10 for Acinetobacter baumannii. No recent chest x-ray. Medications have been reviewed. ASSESSMENT: 1. Moderately severe to severe chronic obstructive pulmonary disease, which is maybe only mildly active at this time, mostly at baseline, made worse today by the fact that his oxygen therapy was not turned on. 2. Recent fall with right shoulder injury and development of cellulitis of the right forearm and right wrist. 3. No evidence at this time to suggest pneumonia. 4. Recent history of pulmonary embolism, in February, currently on treatment. 5. Status post left pwusd-hyv-suhv amputation. 6. Coronary artery disease. 7. History of deep vein thrombosis and pulmonary embolism. 8. Hyperlipidemia. 9. History of rheumatoid arthritis. 10.History of pancreatitis. 11.History of viral pericarditis. 12.Multiple other medical problems and comorbidities. PLAN: Currently, the patient is doing reasonably well. We will make sure that his oxygen is probably functioning. We did add Pulmicort and Perforomist yesterday. We will switch his prednisone to IV Solu-Medrol today. Additional recommendations and suggestions are forthcoming. His overall prognosis is poor. MMODL / IJN: [id number] /
[2020-07-16 17:15] LABS: Glucose,Whole Blood 224 mg/dL (75-99)
[2020-07-16] MEDS ORDERED: methylPREDNISolone SOD SUCCI 125 MG/2 ML VIAL IV SCH (18:00)
[2020-07-16 20:55] LABS: Glucose,Whole Blood 264 mg/dL (75-99)
[2020-07-16] MEDS: ATORVASTATIN 40 MG TAB PO SCH (21:36)
[2020-07-16] MEDS: INSULIN DETEMIR (LEVEMIR) 100 UNIT/ML SYR SQ SCH (21:37)
[2020-07-17] MEDS: oxyCODONE-APAP 10-325MG 1 EACH TAB PO PRN (00:26)
[2020-07-17] MEDS: methylPREDNISolone SOD SUCCI 125 MG/2 ML VIAL IV SCH ×4 (00:27→17:09)
[2020-07-17] MEDS: AMPICILLIN-SULBACTAM 3 GM in SODIUM CHLORIDE 0.9% 100 ML IVPB SCH ×4 (02:56→21:10)
[2020-07-17] MEDS: SODIUM CHLORIDE 0.9% 1,000 ML IV SCH (05:41)
--- NOTE | 2020-07-17 06:12 | PN ---
PROGRESS NOTE DATE OF SERVICE: 07/16/2020 REASON FOR FOLLOWUP: Acinetobacter bacteremia and right upper extremity cellulitis. INTERVAL HISTORY: The patient is currently afebrile. The patient has been complaining of shortness of breath. Minimal cough. No sputum. No nausea, no vomiting. No abdominal pain. Overall swelling in his right upper extremity has improved. PHYSICAL EXAMINATION: Blood pressure 155/90 with a pulse of 87, temperature 98.5. He is 98% on 6 L nasal cannula. General description is an elderly male lying in bed in no distress. RESPIRATORY SYSTEM: Unlabored breathing, decreased intensity of breath sounds. No wheeze. HEART: S1, S2. Regular rate and rhythm. ABDOMEN: Soft, no tenderness. LABS: Repeat blood culture has been negative so far. DIAGNOSTIC IMPRESSION AND PLAN: Patient with Acinetobacter bacteremia source likely right upper extremity cellulitis. CT was negative for any abscess. Repeat blood cultures have been negative. Continue with Unasyn. Repeat the blood work tomorrow and monitor his clinical course closely. MMODL / IJN: [id number] /
[2020-07-17 06:28] LABS: Anisocytosis Slight; HCT 23.2 % (39.0-53.0); Hypochromasia Marked; MCH 19.9 pg (25.0-35.0); MCHC 28.1 g/dL (31.0-37.0); MCV 70.7 fL (80.0-100.0); Mean Platelet Volume 7.1; Microcytosis Marked; Platelet Count 486 k/uL (150-450); RBC 3.28 m/uL (4.30-5.90); RDW 18.5 % (11.5-15.5)
[2020-07-17 06:29] LABS: African American GFR (CKD) >90 (>60 ml/min/1.73 sqM); Anion Gap 3 mmol/L; Blood Urea Nitrogen 18 mg/dL (9-20); Calcium 7.7 mg/dL (8.4-10.2); Carbon Dioxide 28 mmol/L (22-30); Chloride 108 mmol/L (98-107); Glucose 119 mg/dL (74-99); Non-African American GFR(CKD) >90 (>60 ml/min/1.73 sqM); Potassium 4.2 mmol/L (3.5-5.1); Sodium 139 mmol/L (137-145)
[2020-07-17 06:33] LABS: HGB 6.5 gm/dL (13.0-17.5)
[2020-07-17 06:56] LABS: Lymphocytes # (M) 0.56 k/uL (1.0-4.8); Monocytes # (M) 0.09 k/uL (0-1.0); Neutrophils # (M) 8.74 k/uL (1.3-7.7); Neutrophils % (M) 94 %; Nucleated Red Blood Cells 4 /100 WBC (0-0); Total Cells Counted 200; WBC 9.3 k/uL (3.8-10.6)
[2020-07-17 06:57] LABS: Anisocytosis (M) Present; Ovalocytes Present; Poikilocytosis (M) Present; RBC Fragments Present; Rouleaux Present
[2020-07-17 07:06] LABS: Glucose,Whole Blood 145 mg/dL (75-99)
[2020-07-17 07:06] LABS: C Reactive Protein 176.4 mg/L (<10.0)
[2020-07-17] MEDS: INSULIN ASPART (NovoLOG) 100 UNIT/ML VIAL SQ SCH ×4 (07:07→21:12)
[2020-07-17] MEDS: MORPHINE SULFATE ER 15 MG TABLET PO SCH ×2 (07:30→21:13)
[2020-07-17] MEDS: METOPROLOL TARTRATE 50 MG TAB PO SCH (07:30)
[2020-07-17] MEDS: GABAPENTIN 300 MG CAP PO SCH ×3 (07:30→21:13)
[2020-07-17] MEDS: NYSTATIN 100,000 UNIT/ML SUSP 500,000 UNIT/5 ML CUP PO SCH ×4 (07:30→21:14)
[2020-07-17] MEDS: ASPIRIN 81 MG PO SCH (07:30)
[2020-07-17] MEDS: PANTOPRAZOLE 40 MG TABLET PO SCH ×2 (07:31→17:09)
[2020-07-17] MEDS: MECLIZINE 12.5 MG TAB PO SCH ×2 (07:35→21:14)
[2020-07-17] MEDS: FORMOTEROL FUMARATE 20 MCG/2 ML NEBU INHALATION SCH ×2 (08:10→21:23)
[2020-07-17] MEDS: IPRATROPIUM-ALBUTEROL 3 ML NEB INHALATION SCH ×4 (08:10→21:23)
[2020-07-17] MEDS: BUDESONIDE 1 MG/2 ML NEBU INHALATION SCH ×2 (08:10→21:23)
[2020-07-17] MEDS: RIVAROXABAN 20 MG TAB PO SCH (08:19)
[2020-07-17 08:56] LABS: Anisocytosis Slight; Basophils % (A) 0 %; Eosinophils % (A) 0 %; HCT 24.7 % (39.0-53.0); Hypochromasia Marked; Lymphocytes % (A) 9 %; MCHC 27.9 g/dL (31.0-37.0); MCV 71.6 fL (80.0-100.0); Mean Platelet Volume 7.5; Microcytosis Marked; Monocytes # (A) 0.2 k/uL (0-1.0); Monocytes % (A) 2 %; Neutrophils # (A) 10.5 k/uL (1.3-7.7); Neutrophils % (A) 89 %; Platelet Count 547 k/uL (150-450); RBC 3.44 m/uL (4.30-5.90); RDW 18.6 % (11.5-15.5); WBC 11.8 k/uL (3.8-10.6)
[2020-07-17 09:06] LABS: HGB 6.9 gm/dL (13.0-17.5)
[2020-07-17 11:31] LABS: Glucose,Whole Blood 175 mg/dL (75-99)
[2020-07-17 11:40] LABS: Reticulocyte % 0.6 % (0.5-2.0)
--- NOTE | 2020-07-17 12:19 | P.PN ---
Subjective Progress Note Date: 07/17/20 I was Perfect Serve by patient's nurse on 07/15/20 that the patient was stating he does not recall was transpired in the hospital for the last 2-3 days. But otherwise he is alert oriented 3. And there is no focality on examination per nurse. CT of the head was done on 07/15/2020 and was reported as findings are similar to the prior exam, age-related change and possible chronic small vessel ischemia. I reviewed it and I saw the old right occipital stroke. Otherwise there is no acute ischemia or hemorrhage. Upon seeing the patient at bedside that today he stated that he continues to not remember what transpired the 2-3 days during hospitalization. He denies of any headache, any numbness. Any nausea any vomiting. Patient the hemoglobin was 6.5 today early in the morning repeated one was 6.9. His Xarelto was held. Per the patient nurse he will stay in the hospital for colonoscopy. Objective - Vital Signs Vital signs: Vital Signs Temp 97.9 F 07/17/20 10:48 Pulse 92 07/17/20 11:10 Resp 20 07/17/20 10:48 BP 169/97 07/17/20 10:48 Pulse Ox 92 L 07/17/20 10:48 Intake & Output 07/16/20 07/17/20 07/17/20 18:59 06:59 18:59 Intake Total 1085 150 0 Output Total 200 Balance 885 150 0 Weight 78.1 kg Intake: Intake, IV Titration 260 Amount Ampicillin-Sulbactam 3 gm 100 In Sodium Chloride 0.9% 100 ml @ 200 mls/hr IVPB Q6H SURYA Rx#:[id number] Sodium Chloride 0.9% 1, 160 000 ml @ 50 mls/hr IV . Q20H SURYA Rx#:[id number] Oral 825 150 Blood Product 0 Rc Irr As1 Unit 0 [id number] Output: Urine 200 Other: Voiding Method Urinal Urinal # Voids 2 - Exam GENERAL: The patient is lying in bed and is not in acute distress. CHEST: The heart rate is regular rate rhythm. No murmurs to auscultation. No carotid bruit bilaterally. LUNG: Clear to auscultation bilaterally no wheezing noted throughout. Not labored breathing. ABDOMEN/GI: Bowel sounds present in all 4 quadrants. No tenderness to palpation throughout. NEUROLOGICAL: Higher mental function: The patient is awake, alert, oriented to self, place and time. Patient is following commands. No aphasia and no neglect. Cranial nerves: The pupils are round, equal and reactive to light and accommodation. Visual bass are full to confrontation throughout (this was checked 4 times). Extraocular movement is intact no nystagmus is noted. Facial sensation is normal to touch throughout. The facial strength is normal throughout. Hearing is normal bilaterally to hand rub. Tongue is midline and moved ypcg-by-[id number] without any difficulty. No dysarthria is noted. Shoulder shrug is normal bilaterally. Motor: Gait is defered. He had difficulty lifting both arms (stated this has been going on for 6 month). But upon assessing it again his strength was 5/5 in bilateral upper extremities. While bilateral lower extremities unable to assess since wrapped because of infection. Is able to lift right lower extremity above gravity without drift. Left lower extremity is amputated above knee and above to move it proximally. Cerebellum: Normal finger to nose bilaterally. Sensation: Sensation is normal to touch throughout. Reflexes (right/left): 2+ throughout bilateral upper extremities and not assessed lower extremities. Plantars: Not assessed since right lower extremity is wrapped while left there is amputation of extremity. - Labs CBC & Chem 7: 07/17/20 08:37 07/17/20 05:42 Labs: Abnormal Lab Results - Last 24 Hours (Table) 07/16/20 07/16/20 07/17/20 Range/Units 17:05 20:54 05:42 WBC (3.8-10.6) k/uL RBC (4.30-5.90) m/uL Hgb (13.0-17.5) gm/dL Hct (39.0-53.0) % MCV (80.0-100.0) fL MCH (25.0-35.0) pg MCHC (31.0-37.0) g/dL RDW (11.5-15.5) % Plt Count (150-450) k/uL Neutrophils # (1.3-7.7) k/uL Neutrophils # (Manual) (1.3-7.7) k/uL Lymphocytes # (Manual) (1.0-4.8) k/uL Nucleated RBCs (0-0) /100 WBC Chloride 108 H (98-107) mmol/L Glucose 119 H (74-99) mg/dL POC Glucose (mg/dL) 224 H 264 H (75-99) mg/dL Calcium 7.7 L (8.4-10.2) mg/dL C-Reactive Protein 176.4 H (<10.0) mg/L Crossmatch 07/17/20 07/17/20 07/17/20 Range/Units 05:42 07:04 08:37 WBC 11.8 H (3.8-10.6) k/uL RBC 3.28 L 3.44 L (4.30-5.90) m/uL Hgb 6.5 L* 6.9 L* (13.0-17.5) gm/dL Hct 23.2 L 24.7 L (39.0-53.0) % MCV 70.7 L 71.6 L (80.0-100.0) fL MCH 19.9 L 20.0 L (25.0-35.0) pg MCHC 28.1 L 27.9 L (31.0-37.0) g/dL RDW 18.5 H 18.6 H (11.5-15.5) % Plt Count 486 H 547 H (150-450) k/uL Neutrophils # 10.5 H (1.3-7.7) k/uL Neutrophils # (Manual) 8.74 H (1.3-7.7) k/uL Lymphocytes # (Manual) 0.56 L (1.0-4.8) k/uL Nucleated RBCs 4 H (0-0) /100 WBC Chloride (98-107) mmol/L Glucose (74-99) mg/dL POC Glucose (mg/dL) 145 H (75-99) mg/dL Calcium (8.4-10.2) mg/dL C-Reactive Protein (<10.0) mg/L Crossmatch 07/17/20 07/17/20 Range/Units 08:37 11:29 WBC (3.8-10.6) k/uL RBC (4.30-5.90) m/uL Hgb (13.0-17.5) gm/dL Hct (39.0-53.0) % MCV (80.0-100.0) fL MCH (25.0-35.0) pg MCHC (31.0-37.0) g/dL RDW (11.5-15.5) % Plt Count (150-450) k/uL Neutrophils # (1.3-7.7) k/uL Neutrophils # (Manual) (1.3-7.7) k/uL Lymphocytes # (Manual) (1.0-4.8) k/uL Nucleated RBCs (0-0) /100 WBC Chloride (98-107) mmol/L Glucose (74-99) mg/dL POC Glucose (mg/dL) 175 H (75-99) mg/dL Calcium (8.4-10.2) mg/dL C-Reactive Protein (<10.0) mg/L Crossmatch See Detail Microbiology - Last 24 Hours (Table) 07/14/20 10:51 Blood Culture - Preliminary Blood No Growth after 48 hours Assessment and Plan Assessment: Old right occipital stroke (possibly cardioembolic) Transient global amnesia Toxic metabolic encephalopathy--resolved Benign positional vertigo Anemia (last hemoglobin of 6.9) Paroxysmal A. 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 I contacted the reading radiologist and he also felt was also right occipital as well. CT of the head on 07/15/2020 was done because of the patient transient global amnesia and the there is no change from previous image. I will get a routine EEG. Patient is on Xarelto 20 mg daily(home dose) added aspirin 81 mg daily. As a result of his anemia the patient Xarelto was held but the aspirin was continued. Continue Lipitor 40 mg daily. Carotid duplex: Was reported as there is antegrade flow in the right vertebral artery. Did not show flow in the left vertebral artery at. Exam was limited. Less than 20% stenosis in both internal carotid arteries. CT angiogram of the head and neck: No evidence of stenosis. 2-D echo was reported as left ventricle size is normal. There is mild concentric left ventricular hypertrophy. Ejection fraction of 50-55%. There is septal wall motion is delayed and consistent with conduction delay/bundle branch block. Mild tricuspid regurgitation is present. Cardiac monitoring. TSH: 0.562. Lipid panel: Triglyceride 66, cholesterol 87, LDL 32, HDL 42. Once the patient the hemoglobin and the is stable recommend resuming Xarelto if primary team feels its the safe to do so. Regarding his peripheral vertigo continue meclizine to 12.5 mg twice a day Regarding the patient the arrhythmias such as the proximal A. fib as well as SVT we'll defer the management to the cardiology team as well as the primary team. Regarding the patient anemia we'll defer that to the primary team. Upon discharge the patient needs to follow-up with a neurologist as an outpatient. Sb Tesfaye M.D. Neuro-hospitalist Time with Patient: Less than 30
--- NOTE | 2020-07-17 14:50 | CDI ---
Documentation Clarification Form Date: 07/17/2020 02:31:38 PM From: Gail Meléndez CCS, CCDS Admit Date: 07/10/2020 10:44:00 PM Patient Name: Fletcher Sanabria Visit Number: [id number] Discharge Date: ATTENTION: The Clinical Documentation Specialists (CDI) and [facility] Coding Staff appreciate your assistance in clarifying documentation. Please respond to the clarification below the line at the bottom and electronically sign. The CDI & [facility] Coding staff will review the response and follow-up if needed. Please note: Queries are made part of the Legal Health Record. If you have any questions, please contact the author of this message via ITS. Dr. Ree Valdez: Anemia is documented in the 07/12 Cardiology Progress Note. 07/13 Attending Progress Note and subsequent notes: "Will do anemia workup". History/Risk Factors: CAD, DM II, Rheumatoid Arthritis, COPD, DVT, PE, Hyperlipidemia, Pneumonia, Pancreatitis, Viral Pericarditis, MRSA. Clinical indicators: Patient presented to the ED on 07/10 with altered mental status and elevated temp. Admitted with Sepsis, Cellulitis of right arm, Hypotension, Dehydration & Lactic Acidosis. Hemoglobin 07/10: 10/4*. 07/14: 7.0*. 07/17: 6.9. Hematocrit 07/10: 35.8*. 07/14: 24.8*. 07/17 24.7*. 07/13: Iron 4*. TIBC 213*. % Sat 1.88*, Ferritin 122.0 Treatment 07/10: IV fluid 1,000 mls @ 130 mls/hr, IV fluid 1,000 mls @ 999 mls/hr, IV Rocephin, IV Zosyn, IV Vncomycin, IV SoluCortef. 07/11: IV Ampicillin, INH Albuterol. 07/14: IV Lasix. 07/17 Blood Transfusion PRBCs. In order to capture the severity of condition, please clarify the type of anemia and etiology if known:. Acute blood loss anemia Acute on chronic blood loss anemia Chronic blood loss anemia Iron deficiency anemia Other type of anemia, please specify: Unable to determine (Last Form Revision: December 2019) _unable to determine ___ MTDD
--- NOTE | 2020-07-17 14:53 | P.PN ---
Subjective Progress Note Date: 07/17/20 Principal diagnosis: Acute on chronic dyspnea, related to chronic obstructive pulmonary disease, right forearm and right wrist cellulitis, no clear evidence of pneumonia On 07/17/2020 patient seen in follow-up on the general medical surgical floor, he is awake, he is resting comfortably in bed, he has chronic shortness of breath, currently his breathing seems to be comfortable, he is on 6 L of oxygen his pulse ox of 99%, hemodynamically patient is stable, he is afebrile. His chest x-ray on 07/13/2020 showed that scattered subpleural fibrosis, mild increased patchy density in the left lower lobe, we did not think this was related to underlying pneumonia. We added IV steroids, patient is receiving nebulized bronchodilators, and antibiotics in the form of Unasyn. His blood culture showed Acinetobacter Kayla, and follow blood culture is negative thus far. Brain CT was obtained in view of episodes of confusion, and revealed age- related changes and possible chronic small vessel ischemia, neurology is following, he is currently having EEG done. Denies any headaches, denies any numbness, no nausea or vomiting, no worsening shortness of breath or chest pain. Today's hemoglobin is 6.9, and and patient was transfused with 1 unit of packed red blood cells. No clear evidence of bleeding, GI service evaluation was requested. ID service is following, nephrology is following, patient is receiving wound care per wound care team. Objective - Vital Signs Vital signs: Vital Signs Temp 97.3 F L 07/17/20 12:49 Pulse 75 07/17/20 12:49 Resp 18 07/17/20 12:49 BP 156/94 07/17/20 12:49 Pulse Ox 92 L 07/17/20 12:49 Intake & Output 07/16/20 07/17/20 07/17/20 18:59 06:59 18:59 Intake Total 1085 150 310 Output Total 200 Balance 885 150 310 Weight 78.1 kg Intake: Intake, IV Titration 260 Amount Ampicillin-Sulbactam 3 gm 100 In Sodium Chloride 0.9% 100 ml @ 200 mls/hr IVPB Q6H SURYA Rx#:[id number] Sodium Chloride 0.9% 1, 160 000 ml @ 50 mls/hr IV . Q20H SURYA Rx#:[id number] Oral 825 150 Blood Product 310 Rc Irr As1 Unit 310 [id number] Output: Urine 200 Other: Voiding Method Urinal Urinal # Voids 2 150 - Exam GENERAL EXAM: 75-year-old male, currently at 6 L of oxygen pulse ox 93%, resting quietly in bed, awake, currently have an EEG done comfortable in no apparent distress. HEAD: Normocephalic/atraumatic. EYES: Normal reaction of pupils, equal size. Conjunctiva pink, sclera white. NOSE: Clear with pink turbinates. THROAT: No erythema or exudates. NECK: No masses, no JVD, no thyroid enlargement, no adenopathy. CHEST: No chest wall deformity. Symmetrical expansion. LUNGS: Diminished air entry with no crackles, wheeze, rhonchi or dullness. CVS: Regular rate and rhythm, normal S1 and S2, no gallops, no murmurs, no rubs ABDOMEN: Soft, nontender. No hepatosplenomegaly, normal bowel sounds, no guarding or rigidity. EXTREMITIES: No clubbing, no edema, no cyanosis, 2+ pulses and upper and lower extremities. Left wufmh-xln-gvcl amputation, right foot is wrapped, right arm is wrapped MUSCULOSKELETAL: Muscle strength and tone normal. SPINE: No scoliosis or deformity SKIN: No rashes CENTRAL NERVOUS SYSTEM: Alert and oriented -3. No focal deficits, tone is normal in all 4 extremities. - Labs CBC & Chem 7: 07/17/20 08:37 07/17/20 05:42 Labs: Abnormal Lab Results - Last 24 Hours (Table) 07/16/20 07/16/20 07/17/20 Range/Units 17:05 20:54 05:42 WBC (3.8-10.6) k/uL RBC (4.30-5.90) m/uL Hgb (13.0-17.5) gm/dL Hct (39.0-53.0) % MCV (80.0-100.0) fL MCH (25.0-35.0) pg MCHC (31.0-37.0) g/dL RDW (11.5-15.5) % Plt Count (150-450) k/uL Neutrophils # (1.3-7.7) k/uL Neutrophils # (Manual) (1.3-7.7) k/uL Lymphocytes # (Manual) (1.0-4.8) k/uL Nucleated RBCs (0-0) /100 WBC Chloride 108 H (98-107) mmol/L Glucose 119 H (74-99) mg/dL POC Glucose (mg/dL) 224 H 264 H (75-99) mg/dL Calcium 7.7 L (8.4-10.2) mg/dL C-Reactive Protein 176.4 H (<10.0) mg/L Crossmatch 07/17/20 07/17/20 07/17/20 Range/Units 05:42 07:04 08:37 WBC 11.8 H (3.8-10.6) k/uL RBC 3.28 L 3.44 L (4.30-5.90) m/uL Hgb 6.5 L* 6.9 L* (13.0-17.5) gm/dL Hct 23.2 L 24.7 L (39.0-53.0) % MCV 70.7 L 71.6 L (80.0-100.0) fL MCH 19.9 L 20.0 L (25.0-35.0) pg MCHC 28.1 L 27.9 L (31.0-37.0) g/dL RDW 18.5 H 18.6 H (11.5-15.5) % Plt Count 486 H 547 H (150-450) k/uL Neutrophils # 10.5 H (1.3-7.7) k/uL Neutrophils # (Manual) 8.74 H (1.3-7.7) k/uL Lymphocytes # (Manual) 0.56 L (1.0-4.8) k/uL Nucleated RBCs 4 H (0-0) /100 WBC Chloride (98-107) mmol/L Glucose (74-99) mg/dL POC Glucose (mg/dL) 145 H (75-99) mg/dL Calcium (8.4-10.2) mg/dL C-Reactive Protein (<10.0) mg/L Crossmatch 07/17/20 07/17/20 Range/Units 08:37 11:29 WBC (3.8-10.6) k/uL RBC (4.30-5.90) m/uL Hgb (13.0-17.5) gm/dL Hct (39.0-53.0) % MCV (80.0-100.0) fL MCH (25.0-35.0) pg MCHC (31.0-37.0) g/dL RDW (11.5-15.5) % Plt Count (150-450) k/uL Neutrophils # (1.3-7.7) k/uL Neutrophils # (Manual) (1.3-7.7) k/uL Lymphocytes # (Manual) (1.0-4.8) k/uL Nucleated RBCs (0-0) /100 WBC Chloride (98-107) mmol/L Glucose (74-99) mg/dL POC Glucose (mg/dL) 175 H (75-99) mg/dL Calcium (8.4-10.2) mg/dL C-Reactive Protein (<10.0) mg/L Crossmatch See Detail Microbiology - Last 24 Hours (Table) 07/14/20 10:51 Blood Culture - Preliminary Blood No Growth after 72 hours Assessment and Plan Plan: Assessment: #1. Dyspnea, acute on chronic, likely related to sepsis related to right upper extremity cellulitis, Acinetobacter baumanii. No clear evidence of pneumonia on chest x-ray #2. Altered mental status likely related to underlying metabolic encephalopathy, neurology services are following #3. Elevated troponin #4. Acinetobacter bacteremia #5. Severe anemia, patient was transfused with 1 unit of packed red blood cells, GI evaluation is requested #6. History of left occipital infarct #7. Type 2 diabetes mellitus #8. History of DVT/PE on Xarelto which is currently on hold for severe anemia #9. Chronic obstructive pulmonary disease, currently stable #10. Hyperlipidemia #11. Right foot wound patient is being seen at the wound Center #12. 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 Coronary artery disease and previous cardiac catheterization and stenting #14. History of pancreatitis #15. History of pericarditis Plan: Continue current medical treatment, and antibiotics per ID service recommendations, vital signs have been stable, patient has been afebrile, follow blood culture has shown no growth, patient remains on Unasyn for antibiotic coverage, continue nebulized bronchodilators, IV steroids, follow chest x-ray in the morning I performed a history & physical examination of the patient and discussed their management with my nurse practitioner, Yoselin Wiggins. I reviewed the nurse practitioner's note and agree with the documented findings and plan of care. Lung sounds are positive for diminished breath sounds. The findings and the impression was discussed with the patient. I attest to the documentation by the nurse practitioner. Time with Patient: Less than 30
--- NOTE | 2020-07-17 15:39 | PN ---
PROGRESS NOTE DATE OF SERVICE: 07/17/2020 REASON FOR FOLLOWUP: Right upper extremity cellulitis and acinetobacter bacteremia. INTERVAL HISTORY: The patient is currently afebrile. He is complaining of some shortness of breath, but not any worsening compared to yesterday. No chest pain. Minimal cough. No nausea. No vomiting. No abdominal pain. Overall swelling and redness to the right upper extremity have decreased. PHYSICAL EXAMINATION: Blood pressure 156/94 with a pulse of 75, temperature 97.3. He is 92% on 4 L nasal cannula. General description is an elderly male lying in bed in no distress. RESPIRATORY SYSTEM: Unlabored breathing with decreased breath sounds at the base. No wheeze. HEART: S1, S2. Regular rate and rhythm. ABDOMEN: Soft. No tenderness. LABS: Hemoglobin 6.5, white count 9.3, BUN of 18, creatinine 0.69. Blood culture repeat has been negative. DIAGNOSTIC IMPRESSION AND PLAN: Patient with acinetobacter bacteremia. Source is likely right upper extremity cellulitis. Pneumonia is less likely but not entirely excluded. Patient's follow-up blood culture has been negative. He is currently covered with Unasyn; to continue. The patient's white count has normalized. Repeat blood culture is negative. Family at the bedside. They had multiple questions, which were answered. Currently workup is in progress for his anemia. MMODL / IJN: [id number] /
--- NOTE | 2020-07-17 16:06 | EEG ---
ELECTROENCEPHALOGRAM REPORT DATE OF SERVICE: 07/17/2020 CLINICAL HISTORY: This is a 75-year-old gentleman with a history of old right occipital stroke who had an episode of confusion, not knowing what transpired during the last 2-3 days of hospital stay. This video EEG was obtained to evaluate for seizure and epileptiform activity. RELEVANT MEDICATION: The patient is not on any central-acting medication. EEG TYPE: A routine 21-channel EEG was performed with video using the 10/20 electrode placement system. DESCRIPTION: Only wakefulness is obtained. During wakefulness, there is a low to moderate voltage of 4-5 hertz over bilateral hemispheres that is poorly sustained and poorly modulated. There was no physiological stage II sleep seen. Otherwise, the background consists of diffuse low to moderate voltage of 0.5 to 1.5 hertz polymorphic non-rhythmic delta activity and is sometimes intermixed with theta activity. INTERICTAL AND ICTAL: None. ACTIVATION PROCEDURE: Photic stimulation did evoke a posterior driving response over the bilateral hemisphere at low flash frequency. Hyperventilation was not performed because of the patient's clinical history. CLINICAL INTERPRETATION: This is an abnormal awake routine EEG. The background slowing is suggestive of moderate encephalopathy of unspecified etiology. There are no focal slowing, epileptiform discharge or seizure seen during the study. Clinical correlation is recommended. MMODL / IJN: [id number] / NATHALY
[2020-07-17 16:31] LABS: Glucose,Whole Blood 192 mg/dL (75-99)
[2020-07-17 20:14] LABS: Glucose,Whole Blood 229 mg/dL (75-99)
[2020-07-17] MEDS: ATORVASTATIN 40 MG TAB PO SCH (21:12)
[2020-07-17] MEDS: INSULIN DETEMIR (LEVEMIR) 100 UNIT/ML SYR SQ SCH (21:20)
--- NOTE | 2020-07-17 21:55 | P.PN ---
Subjective Progress Note Date: 07/17/20 He remains on unasyn for his RUE cellulitis, underwent CT scan which was negative for abscess. The arm is now much less swollen and painful. Pt is unable to recall the last few days of his hospitalization, Neurology following and CT head with chronic changes. EEG is ordered for today. His Hgb today is down to 6.5 from 7.4 yesterday and 10.3 on admission. He denies any rectal bleeding. Objective - Vital Signs Vital signs: Vital Signs Temp 97.8 F 07/17/20 14:44 Pulse 81 07/17/20 21:37 Resp 18 07/17/20 16:00 BP 171/93 07/17/20 14:44 Pulse Ox 97 07/17/20 14:44 Intake & Output 07/17/20 07/17/20 07/18/20 06:59 18:59 06:59 Intake Total 150 310 Balance 150 310 Intake: Oral 150 Blood Product 310 Rc Irr As1 Unit 310 [id number] Other: Voiding Method Urinal Urinal # Voids 150 1 # Bowel Movements 1 1 - Exam General: well nourished, well developed, NAD. Vitals reviewed Lungs: normal respiratory effort, no wheezes or rales CV: Regular rate and rhythm, no murmur. Peripheral pulses 2+ Abdomen: soft, nondistended, no organomegaly Skin: warm and dry. RUE erythema, diminished from previous - Labs CBC & Chem 7: 07/17/20 08:37 07/17/20 05:42 Labs: Abnormal Lab Results - Last 24 Hours (Table) 07/17/20 07/17/20 07/17/20 Range/Units 05:42 05:42 07:04 WBC (3.8-10.6) k/uL RBC 3.28 L (4.30-5.90) m/uL Hgb 6.5 L* (13.0-17.5) gm/dL Hct 23.2 L (39.0-53.0) % MCV 70.7 L (80.0-100.0) fL MCH 19.9 L (25.0-35.0) pg MCHC 28.1 L (31.0-37.0) g/dL RDW 18.5 H (11.5-15.5) % Plt Count 486 H (150-450) k/uL Neutrophils # (1.3-7.7) k/uL Neutrophils # (Manual) 8.74 H (1.3-7.7) k/uL Lymphocytes # (Manual) 0.56 L (1.0-4.8) k/uL Nucleated RBCs 4 H (0-0) /100 WBC Chloride 108 H (98-107) mmol/L Glucose 119 H (74-99) mg/dL POC Glucose (mg/dL) 145 H (75-99) mg/dL Calcium 7.7 L (8.4-10.2) mg/dL C-Reactive Protein 176.4 H (<10.0) mg/L Crossmatch 07/17/20 07/17/20 07/17/20 Range/Units 08:37 08:37 11:29 WBC 11.8 H (3.8-10.6) k/uL RBC 3.44 L (4.30-5.90) m/uL Hgb 6.9 L* (13.0-17.5) gm/dL Hct 24.7 L (39.0-53.0) % MCV 71.6 L (80.0-100.0) fL MCH 20.0 L (25.0-35.0) pg MCHC 27.9 L (31.0-37.0) g/dL RDW 18.6 H (11.5-15.5) % Plt Count 547 H (150-450) k/uL Neutrophils # 10.5 H (1.3-7.7) k/uL Neutrophils # (Manual) (1.3-7.7) k/uL Lymphocytes # (Manual) (1.0-4.8) k/uL Nucleated RBCs (0-0) /100 WBC Chloride (98-107) mmol/L Glucose (74-99) mg/dL POC Glucose (mg/dL) 175 H (75-99) mg/dL Calcium (8.4-10.2) mg/dL C-Reactive Protein (<10.0) mg/L Crossmatch See Detail 07/17/20 07/17/20 Range/Units 16:30 20:12 WBC (3.8-10.6) k/uL RBC (4.30-5.90) m/uL Hgb (13.0-17.5) gm/dL Hct (39.0-53.0) % MCV (80.0-100.0) fL MCH (25.0-35.0) pg MCHC (31.0-37.0) g/dL RDW (11.5-15.5) % Plt Count (150-450) k/uL Neutrophils # (1.3-7.7) k/uL Neutrophils # (Manual) (1.3-7.7) k/uL Lymphocytes # (Manual) (1.0-4.8) k/uL Nucleated RBCs (0-0) /100 WBC Chloride (98-107) mmol/L Glucose (74-99) mg/dL POC Glucose (mg/dL) 192 H 229 H (75-99) mg/dL Calcium (8.4-10.2) mg/dL C-Reactive Protein (<10.0) mg/L Crossmatch Microbiology - Last 24 Hours (Table) 07/14/20 10:51 Blood Culture - Preliminary Blood No Growth after 72 hours Assessment and Plan (1) Sepsis due to Gram negative bacteria Current Visit: Yes Status: Acute Code(s): A41.50 - GRAM-NEGATIVE SEPSIS, UNSPECIFIED SNOMED Code(s): 042655463 (2) Metabolic encephalopathy Current Visit: Yes Status: Acute Code(s): G93.41 - METABOLIC ENCEPHALOPATHY SNOMED Code(s): 99955824 (3) Cellulitis of right arm Current Visit: Yes Status: Acute Code(s): L03.113 - CELLULITIS OF RIGHT UPPER LIMB SNOMED Code(s): 926276452 (4) Elevated troponin Current Visit: Yes Status: Acute Code(s): R79.89 - OTHER SPECIFIED ABNORMAL FINDINGS OF BLOOD CHEMISTRY SNOMED Code(s): 536260972 (5) COPD (chronic obstructive pulmonary disease) Current Visit: No Status: Chronic Code(s): J44.9 - CHRONIC OBSTRUCTIVE PULMONARY DISEASE, UNSPECIFIED SNOMED Code(s): 70295437 (6) Rheumatoid arthritis Current Visit: No Status: Chronic Code(s): M06.9 - RHEUMATOID ARTHRITIS, UNSPECIFIED SNOMED Code(s): 59561087 Plan: Continue with Unasyn ID following. Pt for EEG today per neurology. Consider reducing narcotic dose with confusion. GI consult placed for acute blood loss anemia, will hold xarelto. Decrease solumedrol and closely monitor Hgb
[2020-07-17 23:52] LABS: Ferritin 103.7 ng/mL (22.0-322.0)
[2020-07-17 23:54] LABS: % Iron Saturation 2.46 (15.00-50.00); Folate, Serum 10.4 ng/mL
[2020-07-18] MEDS: SODIUM CHLORIDE 0.9% 1,000 ML IV SCH ×2 (00:23→21:36)
[2020-07-18] MEDS: methylPREDNISolone SOD SUCCI 125 MG/2 ML VIAL IV SCH ×2 (00:24→06:10)
[2020-07-18] MEDS: AMPICILLIN-SULBACTAM 3 GM in SODIUM CHLORIDE 0.9% 100 ML IVPB SCH ×4 (04:20→22:12)
[2020-07-18 06:28] LABS: Anisocytosis Slight; Basophils % (A) 0 %; Eosinophils % (A) 0 %; HGB 7.3 gm/dL (13.0-17.5); Hypochromasia Marked; Lymphocytes # (A) 0.5 k/uL (1.0-4.8); Lymphocytes % (A) 5 %; MCH 21.8 pg (25.0-35.0); MCHC 29.3 g/dL (31.0-37.0); MCV 74.4 fL (80.0-100.0); Mean Platelet Volume 7.1; Microcytosis Moderate; Monocytes # (A) 0.2 k/uL (0-1.0); Monocytes % (A) 2 %; Neutrophils # (A) 8.2 k/uL (1.3-7.7); Neutrophils % (A) 92 %; Platelet Count 504 k/uL (150-450); Poikilocytosis Slight; RBC 3.36 m/uL (4.30-5.90); RDW 19.6 % (11.5-15.5); WBC 8.9 k/uL (3.8-10.6)
[2020-07-18 07:11] LABS: Glucose,Whole Blood 180 mg/dL (75-99)
[2020-07-18] MEDS: PANTOPRAZOLE 40 MG TABLET PO SCH ×2 (07:51→16:51)
[2020-07-18] MEDS: ASPIRIN 81 MG PO SCH (07:51)
[2020-07-18] MEDS: MORPHINE SULFATE ER 15 MG TABLET PO SCH (07:51)
[2020-07-18] MEDS: METOPROLOL TARTRATE 50 MG TAB PO SCH (07:51)
[2020-07-18] MEDS: GABAPENTIN 300 MG CAP PO SCH ×3 (07:51→21:23)
[2020-07-18] MEDS: INSULIN ASPART (NovoLOG) 100 UNIT/ML VIAL SQ SCH ×4 (07:53→21:35)
[2020-07-18] MEDS: NYSTATIN 100,000 UNIT/ML SUSP 500,000 UNIT/5 ML CUP PO SCH ×4 (07:53→21:24)
[2020-07-18] MEDS: MECLIZINE 12.5 MG TAB PO SCH ×2 (07:53→21:24)
[2020-07-18] MEDS: BUDESONIDE 1 MG/2 ML NEBU INHALATION SCH ×2 (08:20→19:01)
[2020-07-18] MEDS: FORMOTEROL FUMARATE 20 MCG/2 ML NEBU INHALATION SCH ×2 (08:20→19:01)
[2020-07-18] MEDS: IPRATROPIUM-ALBUTEROL 3 ML NEB INHALATION SCH ×4 (08:20→19:01)
[2020-07-18 09:36] LABS: African American GFR (CKD) 108.5 (60.0-200.0); Anion Gap 9.5 mmol/L (4.00-12.00); BUN/Creat Ratio 31.43 Ratio (12.00-20.00); Calcium 7.5 mg/dL (8.7-10.3); Carbon Dioxide 26.5 mmol/L (21.6-31.8); Non-African American GFR(CKD) 93.6 (60.0-200.0); Potassium 3.9 mmol/L (3.5-5.5)
--- NOTE | 2020-07-18 10:32 | P.PN ---
Subjective Progress Note Date: 07/18/20 Patient was seen at bedside and he said that he is doing well. He denies of any further weakness, numbness, visual disturbance. He did state that he has bilateral shoulder pain and he had surgery done on them in the past. He thinks he had a rotator cuff. He also said that he has significant arthritis. Currently he states that the he's complaining of shortness of breath. Objective - Vital Signs Vital signs: Vital Signs Temp 97.4 F L 07/18/20 07:00 Pulse 96 07/18/20 08:34 Resp 18 07/18/20 08:00 BP 165/95 07/18/20 07:00 Pulse Ox 96 07/18/20 08:22 Intake & Output 07/17/20 07/18/20 07/18/20 18:59 06:59 18:59 Intake Total 310 150 Balance 310 150 Weight 78.1 kg Intake: Oral 150 Blood Product 310 Rc Irr As1 Unit 310 [id number] Other: Voiding Method Urinal Urinal Urinal Incontinent # Voids 150 1 # Bowel Movements 1 1 - Exam GENERAL: The patient is lying in bed and is not in acute distress. CHEST: The heart rate is regular rate rhythm. No murmurs to auscultation. No carotid bruit bilaterally. LUNG: Wheezing noted to ausculation throughout. He seems to be short of breath with examination. Not labored breathing. ABDOMEN/GI: Bowel sounds present in all 4 quadrants. No tenderness to palpation throughout. NEUROLOGICAL: Higher mental function: The patient is awake, alert, oriented to self, place and time. Patient is following commands. No aphasia and no neglect. Cranial nerves: The pupils are round, equal and reactive to light and accommodation. Visual bass are full to confrontation throughout. Extraocular movement is intact no nystagmus is noted. Facial sensation is normal to touch throughout. The facial strength is normal throughout. Hearing is normal bilaterally to hand rub. Tongue is midline and moved [id number] without any difficulty. No dysarthria is noted. Shoulder shrug is normal bilaterally. Motor: Gait is defered. He had difficulty lifting both arms (stated this has been going on for 6 month and had rotator cuff). Upon lifting his left arm he was in pain (shoulder area). His right wirst extension is 3-4 and right hand finger extension is 2-3 (has significant arthritis). Otherwise 5/5 throughout in bilateral upper extremities. While bilateral lower extremities unable to assess since wrapped because of infection. Is able to lift right lower extremity above gravity without drift. Left lower extremity is amputated above knee and above to move it proximally. Cerebellum: Normal finger to nose bilaterally. Sensation: Sensation is normal to touch throughout. Reflexes (right/left): 2+ throughout bilateral upper extremities and not ass essed lower extremities. Plantars: Not assessed since right lower extremity is wrapped while left there is amputation of extremity. - Labs CBC & Chem 7: 07/18/20 05:48 07/18/20 05:48 Labs: Abnormal Lab Results - Last 24 Hours (Table) 07/17/20 07/17/20 07/17/20 Range/Units 05:42 08:37 11:29 RBC (4.30-5.90) m/uL Hgb (13.0-17.5) gm/dL Hct (39.0-53.0) % MCV (80.0-100.0) fL MCH (25.0-35.0) pg MCHC (31.0-37.0) g/dL RDW (11.5-15.5) % Plt Count (150-450) k/uL Neutrophils # (1.3-7.7) k/uL Lymphocytes # (1.0-4.8) k/uL BUN/Creatinine Ratio (12.00-20.00) Ratio Glucose (70-110) mg/dL POC Glucose (mg/dL) 175 H (75-99) mg/dL Calcium (8.7-10.3) mg/dL Iron 6 L (65-175) ug/dL % Saturation 2.46 L (15.00-50.00) Crossmatch See Detail 07/17/20 07/17/20 07/18/20 Range/Units 16:30 20:12 05:48 RBC 3.36 L (4.30-5.90) m/uL Hgb 7.3 L (13.0-17.5) gm/dL Hct 25.0 L (39.0-53.0) % MCV 74.4 L (80.0-100.0) fL MCH 21.8 L (25.0-35.0) pg MCHC 29.3 L (31.0-37.0) g/dL RDW 19.6 H (11.5-15.5) % Plt Count 504 H (150-450) k/uL Neutrophils # 8.2 H (1.3-7.7) k/uL Lymphocytes # 0.5 L (1.0-4.8) k/uL BUN/Creatinine Ratio (12.00-20.00) Ratio Glucose (70-110) mg/dL POC Glucose (mg/dL) 192 H 229 H (75-99) mg/dL Calcium (8.7-10.3) mg/dL Iron (65-175) ug/dL % Saturation (15.00-50.00) Crossmatch 07/18/20 07/18/20 Range/Units 05:48 07:09 RBC (4.30-5.90) m/uL Hgb (13.0-17.5) gm/dL Hct (39.0-53.0) % MCV (80.0-100.0) fL MCH (25.0-35.0) pg MCHC (31.0-37.0) g/dL RDW (11.5-15.5) % Plt Count (150-450) k/uL Neutrophils # (1.3-7.7) k/uL Lymphocytes # (1.0-4.8) k/uL BUN/Creatinine Ratio 31.43 H (12.00-20.00) Ratio Glucose 171 H (70-110) mg/dL POC Glucose (mg/dL) 180 H (75-99) mg/dL Calcium 7.5 L (8.7-10.3) mg/dL Iron (65-175) ug/dL % Saturation (15.00-50.00) Crossmatch Microbiology - Last 24 Hours (Table) 07/14/20 10:51 Blood Culture - Preliminary Blood No Growth after 72 hours Assessment and Plan Assessment: Old right occipital stroke (possibly cardioembolic) Transient global amnesia Toxic metabolic encephalopathy--resolved Benign positional vertigo Anemia (last hemoglobin of 6.9) Paroxysmal A. 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 I contacted the reading radiologist and he also felt was also right occipital as well. CT of the head on 07/15/2020 was done because of the patient transient global amnesia and the there is no change from previous image. Routine EEG (07/18/20): the background slowing suggestive of moderate encephalopathy of unspecified etiology. There is no focal slowing, epileptiform discharges or seizure during the study. Patient is on Xarelto 20 mg daily(home dose) added aspirin 81 mg daily. As a result of his anemia the patient Xarelto was held but the aspirin was continued. Continue Lipitor 40 mg daily. Carotid duplex: Was reported as there is antegrade flow in the right vertebral artery. Did not show flow in the left vertebral artery at. Exam was limited. Less than 20% stenosis in both internal carotid arteries. CT angiogram of the head and neck: No evidence of stenosis. 2-D echo was reported as left ventricle size is normal. There is mild concentric left ventricular hypertrophy. Ejection fraction of 50-55%. There is septal wall motion is delayed and consistent with conduction delay/bundle branch block. Mild tricuspid regurgitation is present. Cardiac monitoring. TSH: 0.562. Lipid panel: Triglyceride 66, cholesterol 87, LDL 32, HDL 42. Gastroenterology team is consulted for the anemia. Once the patient the hemoglobin and the is stable recommend resuming Xarelto if primary team feels its the safe to do so. Regarding the patient right the hand extensor weakness as well as wrist weakness and some weakness over the shoulder possibly deltoid but limited because of the pain recommend outpatient EMG with nerve conduction study rule out radiculopathy versus the peripheral neuropathy. Regarding his peripheral vertigo continue meclizine to 12.5 mg twice a day Regarding the patient the arrhythmias such as the proximal A. fib as well as SVT we'll defer the management to the cardiology team as well as the primary team. Regarding the patient anemia we'll defer that to the primary team. Upon discharge the patient needs to follow-up with a neurologist as an outpatient in 2-3 weeks. Sb Tesfaye M.D. Neuro-hospitalist Time with Patient: Less than 30
[2020-07-18] MEDS: SODIUM FERRIC GLUCONAT-SUCROSE 125 MG in SODIUM CHLORIDE 0.9% 100 ML IVPB SCH (10:51)
--- NOTE | 2020-07-18 10:51 | XR ---
EXAMINATION TYPE: XR chest 2V DATE OF EXAM: 07/18/2020 COMPARISON: Chest x-ray 5 days ago. CTA chest February 14, 2020. HISTORY: Shortness of breath. TECHNIQUE: Frontal and lateral views of the chest are obtained. FINDINGS: There is background low lung volumes and chronic parenchymal fibrotic change bilaterally. The cardiac silhouette size remains enlarged. New mild to moderate central vascular congestion and i nterstitial edema on background chronic change. With metallic hardware right shoulder level partially imaged. No significant pleural effusions noted bilaterally. IMPRESSION: Suspect CHF exacerbation as there is persistent cardiomegaly with mild/moderate central vascular congestion and interstitial edema though present on background low lung volumes and chronic interstitial fibrosis.
[2020-07-18 11:27] LABS: Glucose,Whole Blood 158 mg/dL (75-99)
--- NOTE | 2020-07-18 12:10 | P.PN ---
Subjective Progress Note Date: 07/18/20 Principal diagnosis: Acute on chronic dyspnea, related to chronic obstructive pulmonary disease, right forearm and right wrist cellulitis, no clear evidence of pneumonia On 07/17/2020 patient seen in follow-up on the general medical surgical floor, he is awake, he is resting comfortably in bed, he has chronic shortness of breath, currently his breathing seems to be comfortable, he is on 6 L of oxygen his pulse ox of 99%, hemodynamically patient is stable, he is afebrile. His chest x-ray on 07/13/2020 showed that scattered subpleural fibrosis, mild increased patchy density in the left lower lobe, we did not think this was related to underlying pneumonia. We added IV steroids, patient is receiving nebulized bronchodilators, and antibiotics in the form of Unasyn. His blood culture showed Acinetobacter Kayla, and follow blood culture is negative thus far. Brain CT was obtained in view of episodes of confusion, and revealed age- related changes and possible chronic small vessel ischemia, neurology is following, he is currently having EEG done. Denies any headaches, denies any numbness, no nausea or vomiting, no worsening shortness of breath or chest pain. Today's hemoglobin is 6.9, and and patient was transfused with 1 unit of packed red blood cells. No clear evidence of bleeding, GI service evaluation was requested. ID service is following, nephrology is following, patient is receiving wound care per wound care team. On 07/18/2020 patient seen in follow-up on the general medical surgical floor, he is drowsy, but arousable he remains on 4 L of oxygen a pulse ox of 96-98%, which dropped down the FiO2 down to 2 L, breathing comfortably, less dyspneic. Lung sounds reveal diminished sounds, with bibasilar crackles, no significant wheezes, looking probably switch the IV steroids to oral prednisone, he remains on nebulized bronchodilators, no significant cough or congestion, no convincing chest pain, today's chest x-ray has been reviewed showing low lung volumes, chronic bronchial fibrotic changes bilaterally, pulmonary vascular congestion. Today's labs have been reviewed. His hemoglobin is 7.3 with no obvious signs of bleeding, GI service is following, and patient is receiving iron infusions. He remains on Unasyn for evidence of Acinetobacter Baumanii in the blood cultures, follow blood culture has shown no growth thus far, ID service is following. Patient has been afebrile. Objective - Vital Signs Vital signs: Vital Signs Temp 97.4 F L 07/18/20 07:00 Pulse 88 07/18/20 11:35 Resp 18 07/18/20 08:00 BP 165/95 07/18/20 07:00 Pulse Ox 96 07/18/20 08:22 Intake & Output 07/17/20 07/18/20 07/18/20 18:59 06:59 18:59 Intake Total 310 150 Balance 310 150 Weight 78.1 kg Intake: Oral 150 Blood Product 310 Rc Irr As1 Unit 310 [id number] Other: Voiding Method Urinal Urinal Urinal Incontinent # Voids 150 1 # Bowel Movements 1 1 - Exam GENERAL EXAM: 75-year-old male, currently at 4 L of oxygen pulse ox 96%, resting quietly in bed, awake, drowsy, but arousable to voice appears to be in no acute distress HEAD: Normocephalic/atraumatic. EYES: Normal reaction of pupils, equal size. Conjunctiva pink, sclera white. NOSE: Clear with pink turbinates. THROAT: No erythema or exudates. NECK: No masses, no JVD, no thyroid enlargement, no adenopathy. CHEST: No chest wall deformity. Symmetrical expansion. LUNGS: Diminished air entry with no crackles, wheeze, rhonchi or dullness. CVS: Regular rate and rhythm, normal S1 and S2, no gallops, no murmurs, no rubs ABDOMEN: Soft, nontender. No hepatosplenomegaly, normal bowel sounds, no guarding or rigidity. EXTREMITIES: No clubbing, no edema, no cyanosis, 2+ pulses and upper and lower extremities. Left [id number] amputation, right foot is wrapped, right arm is wrapped MUSCULOSKELETAL: Muscle strength and tone normal. SPINE: No scoliosis or deformity SKIN: No rashes CENTRAL NERVOUS SYSTEM: Alert and oriented -2. No focal deficits, tone is normal in all 4 extremities. - Labs CBC & Chem 7: 07/18/20 05:48 07/18/20 05:48 Labs: Abnormal Lab Results - Last 24 Hours (Table) 07/17/20 07/17/20 07/17/20 Range/Units 05:42 08:37 16:30 RBC (4.30-5.90) m/uL Hgb (13.0-17.5) gm/dL Hct (39.0-53.0) % MCV (80.0-100.0) fL MCH (25.0-35.0) pg MCHC (31.0-37.0) g/dL RDW (11.5-15.5) % Plt Count (150-450) k/uL Neutrophils # (1.3-7.7) k/uL Lymphocytes # (1.0-4.8) k/uL BUN/Creatinine Ratio (12.00-20.00) Ratio Glucose (70-110) mg/dL POC Glucose (mg/dL) 192 H (75-99) mg/dL Calcium (8.7-10.3) mg/dL Iron 6 L (65-175) ug/dL % Saturation 2.46 L (15.00-50.00) Crossmatch See Detail 07/17/20 07/18/20 07/18/20 Range/Units 20:12 05:48 05:48 RBC 3.36 L (4.30-5.90) m/uL Hgb 7.3 L (13.0-17.5) gm/dL Hct 25.0 L (39.0-53.0) % MCV 74.4 L (80.0-100.0) fL MCH 21.8 L (25.0-35.0) pg MCHC 29.3 L (31.0-37.0) g/dL RDW 19.6 H (11.5-15.5) % Plt Count 504 H (150-450) k/uL Neutrophils # 8.2 H (1.3-7.7) k/uL Lymphocytes # 0.5 L (1.0-4.8) k/uL BUN/Creatinine Ratio 31.43 H (12.00-20.00) Ratio Glucose 171 H (70-110) mg/dL POC Glucose (mg/dL) 229 H (75-99) mg/dL Calcium 7.5 L (8.7-10.3) mg/dL Iron (65-175) ug/dL % Saturation (15.00-50.00) Crossmatch 07/18/20 07/18/20 Range/Units 07:09 11:26 RBC (4.30-5.90) m/uL Hgb (13.0-17.5) gm/dL Hct (39.0-53.0) % MCV (80.0-100.0) fL MCH (25.0-35.0) pg MCHC (31.0-37.0) g/dL RDW (11.5-15.5) % Plt Count (150-450) k/uL Neutrophils # (1.3-7.7) k/uL Lymphocytes # (1.0-4.8) k/uL BUN/Creatinine Ratio (12.00-20.00) Ratio Glucose (70-110) mg/dL POC Glucose (mg/dL) 180 H 158 H (75-99) mg/dL Calcium (8.7-10.3) mg/dL Iron (65-175) ug/dL % Saturation (15.00-50.00) Crossmatch Microbiology - Last 24 Hours (Table) 07/14/20 10:51 Blood Culture - Preliminary Blood No Growth after 72 hours Assessment and Plan Plan: Assessment: #1. Dyspnea, acute on chronic, likely related to sepsis related to right upper extremity cellulitis, Acinetobacter baumanii. No clear evidence of pneumonia on chest x-ray #2. Altered mental status likely related to underlying metabolic encephalopathy, neurology services are following #3. Elevated troponin #4. Acinetobacter bacteremia #5. Severe anemia, patient was transfused with 1 unit of packed red blood cells, GI evaluation is requested #6. History of left occipital infarct #7. Type 2 diabetes mellitus #8. History of DVT/PE on Xarelto which is currently on hold for severe anemia #9. Chronic obstructive pulmonary disease, currently stable #10. Hyperlipidemia #11. Right foot wound patient is being seen at the wound Center #12. 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 Coronary artery disease and previous cardiac catheterization and stenting #14. History of pancreatitis #15. History of pericarditis Plan: Today's chest x-ray has been reviewed, showing hypoventilation, interstitial edema. Continue with nebulized bronchodilators, will transition to IV steroids to oral prednisone, antibiotics per ID service recommendations, follow blood cultures have been negative. Maintain aspiration precautions, no clear evidence of pneumonia on the chest x-ray. Weaning FiO2 I performed a history & physical examination of the patient and discussed their management with my nurse practitioner, Yoselin Wiggins. I reviewed the nurse practitioner's note and agree with the documented findings and plan of care. Lung sounds are positive for diminished breath sounds. The findings and the impression was discussed with the patient. I attest to the documentation by the nurse practitioner. Time with Patient: Less than 30
--- NOTE | 2020-07-18 13:26 | P.PN ---
Subjective Progress Note Date: 07/18/20 Principal diagnosis: Anemia The patient was seen and examined at the bedside. He has 5 L nasal cannula. He is getting scheduled breathing treatments. He states his breathing is about the same. He is denying any abdominal pain, nausea, or vomiting. He denies any rectal bleeding or melena. He is status post 1 unit PRBC transfusion. Iron studies were ordered, iron level 6, TIBC 244 saturation 2.46, ferritin 103, B12 829, folate 10.4. Objective - Vital Signs Vital signs: Vital Signs Temp 97.4 F L 07/18/20 07:00 Pulse 88 07/18/20 11:35 Resp 18 07/18/20 08:00 BP 165/95 07/18/20 07:00 Pulse Ox 96 07/18/20 08:22 Intake & Output 07/17/20 07/18/20 07/18/20 18:59 06:59 18:59 Intake Total 310 150 Balance 310 150 Weight 78.1 kg Intake: Oral 150 Blood Product 310 Rc Irr As1 Unit 310 [id number] Other: Voiding Method Urinal Urinal Urinal Incontinent # Voids 150 1 # Bowel Movements 1 1 - Exam General appearance: The patient is alert, oriented, in no acute distress. HET: Head is normocephalic and atraumatic. Conjunctiva pink. Sclera and icteric. Neck: Supple without lymphadenopathy. Cardiac: Normal rate and rhythm. Lungs: bilateral wheezes, mildly labored Abdomen: Soft, nontender, nondistended with bowel sounds. No guarding or rigidity. Extremities: Normal skin color and turgor. No pedal edema Neurological: No focal deficits. Alert and oriented 3. - Labs CBC & Chem 7: 07/18/20 05:48 07/18/20 05:48 Labs: Abnormal Lab Results - Last 24 Hours (Table) 07/17/20 07/17/20 07/17/20 Range/Units 05:42 16:30 20:12 RBC (4.30-5.90) m/uL Hgb (13.0-17.5) gm/dL Hct (39.0-53.0) % MCV (80.0-100.0) fL MCH (25.0-35.0) pg MCHC (31.0-37.0) g/dL RDW (11.5-15.5) % Plt Count (150-450) k/uL Neutrophils # (1.3-7.7) k/uL Lymphocytes # (1.0-4.8) k/uL BUN/Creatinine Ratio (12.00-20.00) Ratio Glucose (70-110) mg/dL POC Glucose (mg/dL) 192 H 229 H (75-99) mg/dL Calcium (8.7-10.3) mg/dL Iron 6 L (65-175) ug/dL % Saturation 2.46 L (15.00-50.00) 07/18/20 07/18/20 07/18/20 Range/Units 05:48 05:48 07:09 RBC 3.36 L (4.30-5.90) m/uL Hgb 7.3 L (13.0-17.5) gm/dL Hct 25.0 L (39.0-53.0) % MCV 74.4 L (80.0-100.0) fL MCH 21.8 L (25.0-35.0) pg MCHC 29.3 L (31.0-37.0) g/dL RDW 19.6 H (11.5-15.5) % Plt Count 504 H (150-450) k/uL Neutrophils # 8.2 H (1.3-7.7) k/uL Lymphocytes # 0.5 L (1.0-4.8) k/uL BUN/Creatinine Ratio 31.43 H (12.00-20.00) Ratio Glucose 171 H (70-110) mg/dL POC Glucose (mg/dL) 180 H (75-99) mg/dL Calcium 7.5 L (8.7-10.3) mg/dL Iron (65-175) ug/dL % Saturation (15.00-50.00) 07/18/20 Range/Units 11:26 RBC (4.30-5.90) m/uL Hgb (13.0-17.5) gm/dL Hct (39.0-53.0) % MCV (80.0-100.0) fL MCH (25.0-35.0) pg MCHC (31.0-37.0) g/dL RDW (11.5-15.5) % Plt Count (150-450) k/uL Neutrophils # (1.3-7.7) k/uL Lymphocytes # (1.0-4.8) k/uL BUN/Creatinine Ratio (12.00-20.00) Ratio Glucose (70-110) mg/dL POC Glucose (mg/dL) 158 H (75-99) mg/dL Calcium (8.7-10.3) mg/dL Iron (65-175) ug/dL % Saturation (15.00-50.00) Microbiology - Last 24 Hours (Table) 07/14/20 10:51 Blood Culture - Preliminary Blood No Growth after 72 hours Assessment and Plan (1) Microcytic hypochromic anemia Narrative/Plan: This is a 75-year-old male with multiple medical comorbidities presenting to the hospital for fevers and confusion. Currently being treated for back to her anemia. Patient has underlying COPD is quite short of breath on the floor. He is noted to have an acute fall in his hemoglobin from baseline. He denies any signs or symptoms of gastrointestinal bleeding with no melena, hematochezia, coffee-ground emesis, or hematemesis. He does have some weeping of blood from wound on his bilateral upper extremities from tearing of the skin. Suspicion is that anemias multi-factorial due to the multiple medical comorbidities and anemia of chronic disease. There is a component of iron deficiency anemia and cannot rule out a component of GI bleed exacerbated by the patient's anticoagulation therapy. There was extensive discussion with the patient and his daughter and given current respiratory status and overall clinical condition, patient would be high risk for endoscopic evaluation. Current Visit: Yes Status: Acute Code(s): D50.9 - IRON DEFICIENCY ANEMIA, UNSPECIFIED SNOMED Code(s): 33968687 Plan: Supportive care Heart healthy diet Continue to hold anticoagulation therapy Continue Protonix therapy Monitor CBC daily Iron studies ordered and reviewed IV Ferrlecit 3 days At this time we'll hold off on any endovascular procedures until patient is further stabilized. An extensive discussion was done between the patient, daughter, and regarding complications of endoscopic procedure as well as the patient being high risk for for any procedures giving his comorbidities and current clinical status. At this time the patient and family would like conservative management. Transfuse if hemoglobin less than 7 We will follow closely The impression and plan of care has been dictated as directed. I performed a history and examination of this patient, discussed the same with the dictator. I agree with the dictator's note ,documented as a scribe. Any additional findings or plans will be noted.
--- NOTE | 2020-07-18 13:38 | P.CONS ---
History of Present Illness - Reason for Consult Consult date: 07/17/20 Anemia Requesting physician: Clarence Steven - Chief Complaint Fever, confusion - History of Present Illness 75-year-old male with a medical history significant for coronary artery disease, diabetes mellitus, rheumatoid arthritis on prednisone therapy, COPD, history of PE on Xarelto, [id number] amputation who presented to the hospital with symptoms of confusion and fever.. Patient has been treated for bacteremia with a cecum of after and is being followed by the infectious disease service. He has right upper extremity swelling and redness with some weeping from the wound. Currently this is also being treated topically. The patient has previously been seen in the outpatient setting by gastroenterology for findings of a liver cyst likely benign in nature which was found during computed tomography scan performed in evaluation of back pain, with plan for repeat imaging in 6 months. GI was consulted to see the patient for findings of anemia and a hemoglobin which was decompressed from baseline. Patient has no history of colonoscopy in the past. He denies any history of peptic ulcer disease or acid reflux. He denies any signs or symptoms of GI bleeding. He has previously had an EGD in 2013 with findings of gastritis. He denies any excessive NSAID use. Review of Systems REVIEW OF SYSTEMS: CONSTITUTIONAL: Denies any weight change but did report fever, chills and fatigue on presentation.. CARDIOVASCULAR: Denies any chest pain, palpitations high or low blood pressures RESPIRATORY: Denies any hemoptysis but does report shortness of breath and cough. GENITOURINARY: No dysuria or hematuria. MUSCULOSKELETAL: No weakness reported. SKIN: Denies any new jaundice or pallor, but does have bilateral lower extremity wounds. PSYCHIATRIC: Denies any depression or anxiety. NEUROLOGY: Denies headache, denies any new focal deficits, or symptoms on presentation. EARS/NOSE/THROAT: No recent hearing change, congestion, nasal discharge or sore throat. EYES: No pain in eyes, discharge or change in vision. GASTROINTESTINAL: As per HPI. Past Medical History Past Medical History: Coronary Artery Disease (CAD), COPD, Deep Vein Thrombosis (DVT), Hyperlipidemia, Pneumonia, Pulmonary Embolus (PE), Rheumatoid Arthritis (RA), Vascular Disorder Additional Past Medical History / Comment(s): History of pancreatitis, 2012 past medical record documents viral pericarditis but pt denies, gastritis, Fluid build up rt lung - previous chest tube - pt unsure what it is from, BOTTOM TEETH REMOVED 09-01-18, wounds in his right lower extremity, left [id number] stump and left elbow History of Any Multi-Drug Resistant Organisms: MRSA Year Discovered:: 11/23/18 MDRO Source:: KNEE Past Surgical History: Heart Catheterization With Stent, Joint Replacement, Orthopedic Surgery Additional Past Surgical History / Comment(s): Total L knee arthroplasty with a spacer in place, R total shoulder replaced, L ankle ORIF d/t fracture, EGD, left rotator cuff repair. right ankle sx, thoracentesis, chest tube rt lung, LT above the knee amputation -2018 Past Anesthesia/Blood Transfusion Reactions: No Reported Reaction Additional Past Anesthesia/Blood Transfusion Reaction / Comm: Pt states he has never recieved blood. Date of Last Stent Placement:: 12/10/16 Smoking Status: Former smoker - Past Family History Sister(s) Family Medical History: Cancer Additional Family Medical History / Comment(s): pt's father had ra, mother had 16 children was healthy most of her life age 93 from dementia. Mother Family Medical History: Dementia Additional Family Medical History / Comment(s): Mother from dementia at the age of 93 yrs. Father Family Medical History: Rheumatoid Arthritis (RA) Medications and Allergies Home Medications Medication Instructions Recorded Confirmed Type Rivaroxaban [Xarelto] 20 mg PO DAILY 02/14/20 07/10/20 History Gabapentin [Neurontin] 300 mg PO TID #9 cap 02/21/20 07/10/20 Rx oxyCODONE-APAP 10-325MG [Percocet 1 tab PO QID PRN #12 tab 02/21/20 07/10/20 Rx 10-325 mg] Ipratropium-Albuterol Nebulize 3 ml INHALATION RT-HS PRN 07/10/20 07/10/20 Histo ry [Duoneb 0.5 mg-3 mg/3 ml Soln] Morphine Sulfate ER [Ms Contin] 15 mg PO Q12H 07/10/20 07/10/20 History Nystatin 100,000 Unit/ml Susp 500,000 unit PO QID 07/10/20 07/10/20 History [Mycostatin Oral Susp] Therahoney 1 applic TOPICAL MOWEFR 07/10/20 07/10/20 History predniSONE 30 mg PO DAILY 07/10/20 07/10/20 History Allergies Allergy/AdvReac Type Severity Reaction Status Date / Time No Known Allergies Allergy Verified 07/10/20 19:29 Physical Exam Vitals: Vital Signs Temp Pulse Pulse Resp BP BP Pulse Ox 07/17/20 12:49 97.3 F L 75 18 156/94 92 L 07/17/20 11:10 92 07/17/20 11:00 84 07/17/20 10:48 97.9 F 94 20 169/97 92 L 07/17/20 10:39 63 18 150/94 100 07/17/20 10:18 97.8 F 68 18 158/90 07/17/20 10:08 97.7 F 69 16 155/93 99 07/17/20 10:05 97.8 F 71 16 152/80 100 07/17/20 08:26 88 07/17/20 08:20 80 07/17/20 08:12 76 07/17/20 08:00 77 18 07/17/20 07:00 97.7 F 77 19 148/83 99 07/17/20 00:15 98.2 F 84 161/96 97 07/16/20 20:17 77 07/16/20 20:01 77 07/16/20 20:00 98.5 F 87 20 155/90 98 07/16/20 19:49 77 07/16/20 16:00 98.4 F 81 22 177/90 93 L Intake and Output 07/16/20 07/17/20 07/17/20 22:59 06:59 14:59 Intake Total 400 310 Balance 400 310 Intake: Oral 400 Blood Product 310 Rc Irr As1 Unit 310 [id number] Other: Voiding Method Urinal Urinal # Voids 150 On physical examination, patient appears comfortable in no apparent distress. HEAD: Normocephalic, atraumatic. EYES: No scleral icterus. No conjunctival injection. MOUTH: No lesions, tongue midline. NECK: Trachea midline, no gross abnormalities. CHEST: Clear to auscultation with no wheezing or rhonchi appreciated. HEART: S1-S2 appreciated. ABDOMEN: Soft, obese. Bowel sounds are positive. No organomegaly. No guarding or rigidity. EXTREMITIES: No pedal edema, above the knee amputation, bilateral wounds on upper extremities which are wrapped. SKIN: Bilateral upper extremity erythema currently wrapped, no jaundice. NEUROLOGIC: Alert and oriented to person and place. Results CBC & Chem 7: 07/18/20 05:48 07/18/20 05:48 Labs: Abnormal Lab Results - Last 24 Hours (Table) 07/16/20 07/16/20 07/17/20 Range/Units 17:05 20:54 05:42 WBC (3.8-10.6) k/uL RBC (4.30-5.90) m/uL Hgb (13.0-17.5) gm/dL Hct (39.0-53.0) % MCV (80.0-100.0) fL MCH (25.0-35.0) pg MCHC (31.0-37.0) g/dL RDW (11.5-15.5) % Plt Count (150-450) k/uL Neutrophils # (1.3-7.7) k/uL Neutrophils # (Manual) (1.3-7.7) k/uL Lymphocytes # (Manual) (1.0-4.8) k/uL Nucleated RBCs (0-0) /100 WBC Chloride 108 H (98-107) mmol/L Glucose 119 H (74-99) mg/dL POC Glucose (mg/dL) 224 H 264 H (75-99) mg/dL Calcium 7.7 L (8.4-10.2) mg/dL C-Reactive Protein 176.4 H (<10.0) mg/L Crossmatch 07/17/20 07/17/20 07/17/20 Range/Units 05:42 07:04 08:37 WBC 11.8 H (3.8-10.6) k/uL RBC 3.28 L 3.44 L (4.30-5.90) m/uL Hgb 6.5 L* 6.9 L* (13.0-17.5) gm/dL Hct 23.2 L 24.7 L (39.0-53.0) % MCV 70.7 L 71.6 L (80.0-100.0) fL MCH 19.9 L 20.0 L (25.0-35.0) pg MCHC 28.1 L 27.9 L (31.0-37.0) g/dL RDW 18.5 H 18.6 H (11.5-15.5) % Plt Count 486 H 547 H (150-450) k/uL Neutrophils # 10.5 H (1.3-7.7) k/uL Neutrophils # (Manual) 8.74 H (1.3-7.7) k/uL Lymphocytes # (Manual) 0.56 L (1.0-4.8) k/uL Nucleated RBCs 4 H (0-0) /100 WBC Chloride (98-107) mmol/L Glucose (74-99) mg/dL POC Glucose (mg/dL) 145 H (75-99) mg/dL Calcium (8.4-10.2) mg/dL C-Reactive Protein (<10.0) mg/L Crossmatch 07/17/20 07/17/20 Range/Units 08:37 11:29 WBC (3.8-10.6) k/uL RBC (4.30-5.90) m/uL Hgb (13.0-17.5) gm/dL Hct (39.0-53.0) % MCV (80.0-100.0) fL MCH (25.0-35.0) pg MCHC (31.0-37.0) g/dL RDW (11.5-15.5) % Plt Count (150-450) k/uL Neutrophils # (1.3-7.7) k/uL Neutrophils # (Manual) (1.3-7.7) k/uL Lymphocytes # (Manual) (1.0-4.8) k/uL Nucleated RBCs (0-0) /100 WBC Chloride (98-107) mmol/L Glucose (74-99) mg/dL POC Glucose (mg/dL) 175 H (75-99) mg/dL Calcium (8.4-10.2) mg/dL C-Reactive Protein (<10.0) mg/L Crossmatch See Detail Microbiology - Last 24 Hours (Table) 07/14/20 10:51 Blood Culture - Preliminary Blood No Growth after 72 hours Chest x-ray: report reviewed Assessment and Plan (1) Microcytic hypochromic anemia Narrative/Plan: 75-year-old male with multiple medical comorbidities presenting to the hospital for fevers and confusion. Currently being treated for bacteremia. Patient has underlying COPD and is quite short of breath on the floor. He was noted to have an acute fall in his hemoglobin from baseline. He denies any signs or symptoms of gastrointestinal bleeding with no melena, hematochezia, coffee-ground emesis or hematemesis. He does have some weeping of blood from wounds on his bilateral upper extremities from tearing of his skin. Suspicion is that anemia is multifactorial due to the multiple medical comorbidities and anemia of chronic disease, there is a component of iron deficiency anemia and cannot rule out a component of GI bleed exacerbated by the patient's anticoagulation therapy. At this time extensive discussion with the patient and his daughter and given current respiratory status and overall clinical condition patient would be high risk for endoscopic evaluation. Current Visit: Yes Status: Acute Code(s): D50.9 - IRON DEFICIENCY ANEMIA, UNSPECIFIED SNOMED Code(s): 26975277 Plan: Supportive care Okay for diet Continue to hold anticoagulation therapy Continue Protonix therapy Iron studies, reticulocyte count, vitamin B12 and folate levels ordered Plan is for iron supplementation due to low iron levels Continue other medical management per primary team and the consulting services At this time we'll continue medical management, the patient's respiratory status and clinical condition improves can consider endoscopic evaluation with EGD and/or colonoscopy, however sensitive discussion with the patient his daughter at this time including the risks, benefits and possible complications of the procedure as well as the patient being high-risk for the procedure given comorbidities and current clinical status at this time the would like conservative management Thank you for allowing us to participate in the care of the patient
[2020-07-18] MEDS ORDERED: Potassium Replacement Protocol 1 EACH MISC MISCELLANE PRN (14:41)
--- NOTE | 2020-07-18 15:06 | P.PN ---
Subjective Progress Note Date: 07/18/20 Fletcher Sanabria is a 75 yo M with PMH of CAD, T2DM, RA on prednisone, hx PE on xarelto, hx AKA who presented to the ED with confusion and R arm swelling and pain. Pt states his arm has been more painful for at least a week but complains of chronic pain in his ribs as well as lumbar compression fractures. His family is concerned because he is sleeping more, confused, less responsive. Pt denies any obvious cuts or scratches on the arm. On presentation he was febrile and tachcyardic with BP 72/41, WBC 3.1, lactic 4.0, trop 0.055. CXR with interstital prominence, CT head negative. 07/12/2020 blood cultures grew Acinetobacter baumannii, antibiotics adjusted to Unasyn. Sensorium significantly improved. Feels better. Evaluated by both neurology, cardiology with recommendations noted and appreciated. Afebrile, WBC 16.5. Currently on IV push stress dose steroids. Hemoglobin decreased to 7.6. No bleeding reported. Potassium 3.4. BUN 23, and 0.72. 07/17/2020 He remains on unasyn for his RUE cellulitis, underwent CT scan which was negative for abscess. The arm is now much less swollen and painful. Pt is unable to recall the last few days of his hospitalization, Neurology following and CT head with chronic changes. EEG is ordered for today. His Hgb today is down to 6.5 from 7.4 yesterday and 10.3 on admission. He denies any rectal bleeding. 07/18/2020 sensorium improving, mild confusion-reports weekend blurry. Denies nausea vomiting, positive abdominal pain. Status post one unit of packed RBCs, current hemoglobin increased to 7.3.Iron studies noted .Evaluated by GI and neurology. Recommendations noted and appreciated. Chest x-ray reporting persistent cardiomegaly, mild/moderate central vascular congestion and interstitial edema with chronic interstitial fibrosis. EEG reporting moderate encephalopathy of unspecified etiology with no focal slowing or epileptiform discharge or seizures. Objective - Vital Signs Vital signs: Vital Signs Temp 97.4 F L 07/18/20 07:00 Pulse 88 07/18/20 11:35 Resp 18 07/18/20 08:00 BP 165/95 07/18/20 07:00 Pulse Ox 96 07/18/20 08:22 Intake & Output 07/17/20 07/18/20 07/18/20 18:59 06:59 18:59 Intake Total 310 150 Balance 310 150 Weight 78.1 kg Intake: Oral 150 Blood Product 310 Rc Irr As1 Unit 310 [id number] Other: Voiding Method Urinal Urinal Urinal Incontinent # Voids 150 1 # Bowel Movements 1 1 - Exam General: well nourished, well developed, NAD. Vitals reviewed Lungs: normal respiratory effort, no wheezes or rales CV: Regular rate and rhythm, no murmur. Peripheral pulses 2+ Abdomen: soft, nondistended, diffuse tenderness, no organomegaly, positive bowel sounds Skin: warm and dry. RUE erythema significantly improved. Left AKA, right foot dressing clean dry and intact. Please refer to wound care team documentation. Microbiology 07/14/20 10:51 Blood Blood Culture - Preliminary No Growth after 96 hours 07/10/20 18:36 Blood Blood Culture Gram Stain - Final 07/10/20 18:36 Blood Blood Culture - Final Acinetobacter baumannii 07/10/20 18:36 Blood Blood Culture - Final - Labs CBC & Chem 7: 07/18/20 05:48 07/18/20 05:48 Labs: Abnormal Lab Results - Last 24 Hours (Table) 07/17/20 07/17/20 07/17/20 Range/Units 05:42 16:30 20:12 RBC (4.30-5.90) m/uL Hgb (13.0-17.5) gm/dL Hct (39.0-53.0) % MCV (80.0-100.0) fL MCH (25.0-35.0) pg MCHC (31.0-37.0) g/dL RDW (11.5-15.5) % Plt Count (150-450) k/uL Neutrophils # (1.3-7.7) k/uL Lymphocytes # (1.0-4.8) k/uL BUN/Creatinine Ratio (12.00-20.00) Ratio Glucose (70-110) mg/dL POC Glucose (mg/dL) 192 H 229 H (75-99) mg/dL Calcium (8.7-10.3) mg/dL Iron 6 L (65-175) ug/dL % Saturation 2.46 L (15.00-50.00) 07/18/20 07/18/20 07/18/20 Range/Units 05:48 05:48 07:09 RBC 3.36 L (4.30-5.90) m/uL Hgb 7.3 L (13.0-17.5) gm/dL Hct 25.0 L (39.0-53.0) % MCV 74.4 L (80.0-100.0) fL MCH 21.8 L (25.0-35.0) pg MCHC 29.3 L (31.0-37.0) g/dL RDW 19.6 H (11.5-15.5) % Plt Count 504 H (150-450) k/uL Neutrophils # 8.2 H (1.3-7.7) k/uL Lymphocytes # 0.5 L (1.0-4.8) k/uL BUN/Creatinine Ratio 31.43 H (12.00-20.00) Ratio Glucose 171 H (70-110) mg/dL POC Glucose (mg/dL) 180 H (75-99) mg/dL Calcium 7.5 L (8.7-10.3) mg/dL Iron (65-175) ug/dL % Saturation (15.00-50.00) 07/18/20 Range/Units 11:26 RBC (4.30-5.90) m/uL Hgb (13.0-17.5) gm/dL Hct (39.0-53.0) % MCV (80.0-100.0) fL MCH (25.0-35.0) pg MCHC (31.0-37.0) g/dL RDW (11.5-15.5) % Plt Count (150-450) k/uL Neutrophils # (1.3-7.7) k/uL Lymphocytes # (1.0-4.8) k/uL BUN/Creatinine Ratio (12.00-20.00) Ratio Glucose (70-110) mg/dL POC Glucose (mg/dL) 158 H (75-99) mg/dL Calcium (8.7-10.3) mg/dL Iron (65-175) ug/dL % Saturation (15.00-50.00) Microbiology - Last 24 Hours (Table) 10/02/20 10:51 Blood Culture - Preliminary Blood No Growth after 96 hours Assessment and Plan Assessment: (1) Sepsis due to Gram negative bacteria Current Visit: Yes Status: Acute Code(s): A41.50 - GRAM-NEGATIVE SEPSIS, UNSPECIFIED SNOMED Code(s): 746372134 (2) acute moderate Metabolic encephalopathy, suspect medication induced Current Visit: Yes Status: Acute Code(s): G93.41 - METABOLIC ENCEPHALOPATHY SNOMED Code(s): 79294722 (3) Acinetobacter bacteremia secondary to possibly Cellulitis of right arm, Current Visit: Yes Status: Acute Code(s): L03.113 - CELLULITIS OF RIGHT UPPER LIMB SNOMED Code(s): 553292474 (4) Elevated troponin Current Visit: Yes Status: Acute Code(s): R79.89 - OTHER SPECIFIED ABNORMAL FINDINGS OF BLOOD CHEMISTRY SNOMED Code(s): 796889813 (5) COPD (chronic obstructive pulmonary disease) Current Visit: No Status: Chronic Code(s): J44.9 - CHRONIC OBSTRUCTIVE PULMONARY DISEASE, UNSPECIFIED SNOMED Code(s): 65827426 (6) Rheumatoid arthritis Current Visit: No Status: Chronic Code(s): M06.9 - RHEUMATOID ARTHRITIS, UNSPECIFIED SNOMED Code(s): 09376534 (7) acute blood loss anemia, iron deficient. 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 Xarelto remains on hold .IV iron .GI recommendations noted, endoscopy procedures discussed, currently on hold .Confusion suspected to be medication induced, MS Contin discontinued, continuing on Percocet. Antibiotics as per infectious disease. Wound care as per wound team. The impression and plan of care has been dictated as directed. : I performed a history and examination of this patient, discussed the same with the dictator. I agree with the dictator's note ,documented as a scribe. Any additional findings or plans will be noted.
[2020-07-18 16:28] LABS: Glucose,Whole Blood 173 mg/dL (75-99)
--- NOTE | 2020-07-18 17:25 | PN ---
PROGRESS NOTE DATE OF SERVICE: 07/18/2020 REASON FOR FOLLOWUP: Acinetobacter bacteremia, right upper extremity cellulitis. INTERVAL HISTORY: Patient is currently afebrile. The patient is complaining of shortness of breath, but no worsening, no chest pain, no cough. Right upper extremity swelling and redness improved. No abdominal pain and no diarrhea. PHYSICAL EXAMINATION: Blood pressure 155/95 with a pulse of 70, temperature 97.4. He is 98% on 4 L nasal cannula. General description is an elderly male, lying in bed in no distress. RESPIRATORY SYSTEM: Unlabored breathing, clear to auscultation anteriorly. HEART: S1, S2. Regular rate and rhythm. ABDOMEN: Soft, no tenderness. Right upper extremity swelling has improved. LABS: Hemoglobin 7.1, white count of 8.9, BUN of 22, creatinine 0.7. Blood culture repeat has been negative. DIAGNOSTIC IMPRESSION AND PLAN: Patient with infected bacteremia, source is likely right upper extremity cellulitis in this patient with redness to the right arm with blood culture negative. White count normalized. Currently on the Unasyn to continue and will monitor clinical course closely. MMODL / IJN: [id number] /
[2020-07-18 21:09] LABS: Glucose,Whole Blood 107 mg/dL (75-99)
[2020-07-18] MEDS: ATORVASTATIN 40 MG TAB PO SCH (21:23)
[2020-07-18] MEDS: INSULIN DETEMIR (LEVEMIR) 100 UNIT/ML SYR SQ SCH (22:01)
[2020-07-18] MEDS: IPRATROPIUM-ALBUTEROL 3 ML NEB INHALATION PRN (23:37)
[2020-07-19] MEDS: oxyCODONE-APAP 10-325MG 1 EACH TAB PO PRN ×4 (03:15→21:15)
[2020-07-19] MEDS: IPRATROPIUM-ALBUTEROL 3 ML NEB INHALATION PRN (04:02)
[2020-07-19] MEDS: AMPICILLIN-SULBACTAM 3 GM in SODIUM CHLORIDE 0.9% 100 ML IVPB SCH ×4 (04:03→21:15)
[2020-07-19 06:21] LABS: Anisocytosis Moderate; HCT 25.1 % (39.0-53.0); HGB 7.6 gm/dL (13.0-17.5); Hypochromasia Marked; MCH 22.4 pg (25.0-35.0); MCHC 30.3 g/dL (31.0-37.0); MCV 73.9 fL (80.0-100.0); Mean Platelet Volume 8.3; Microcytosis Moderate; Platelet Count 492 k/uL (150-450); Poikilocytosis Slight; RBC 3.39 m/uL (4.30-5.90); RDW 20.1 % (11.5-15.5)
[2020-07-19 06:37] LABS: Band Neutrophils % 2 %; Lymphocytes # (M) 0.99 k/uL (1.0-4.8); Monocytes # (M) 0.22 k/uL (0-1.0); Neutrophils % (M) 88 %; Nucleated Red Blood Cells 7 /100 WBC (0-0); Total Cells Counted 200
[2020-07-19 06:45] LABS: Glucose,Whole Blood 188 mg/dL (75-99)
[2020-07-19] MEDS: IPRATROPIUM-ALBUTEROL 3 ML NEB INHALATION SCH ×4 (08:15→22:12)
[2020-07-19] MEDS: BUDESONIDE 1 MG/2 ML NEBU INHALATION SCH ×2 (08:15→22:11)
[2020-07-19] MEDS: FORMOTEROL FUMARATE 20 MCG/2 ML NEBU INHALATION SCH ×2 (08:15→22:12)
[2020-07-19] MEDS: predniSONE 20 MG TAB PO SCH (08:54)
[2020-07-19] MEDS: NYSTATIN 100,000 UNIT/ML SUSP 500,000 UNIT/5 ML CUP PO SCH ×4 (08:54→21:17)
[2020-07-19] MEDS: GABAPENTIN 300 MG CAP PO SCH ×3 (08:54→21:15)
[2020-07-19] MEDS: METOPROLOL TARTRATE 50 MG TAB PO SCH (08:54)
[2020-07-19] MEDS: PANTOPRAZOLE 40 MG TABLET PO SCH ×2 (08:54→17:59)
[2020-07-19] MEDS: ASPIRIN 81 MG PO SCH (08:54)
[2020-07-19] MEDS: INSULIN ASPART (NovoLOG) 100 UNIT/ML VIAL SQ SCH ×4 (08:55→21:17)
[2020-07-19] MEDS: MECLIZINE 12.5 MG TAB PO SCH ×2 (08:58→21:16)
[2020-07-19] MEDS: SODIUM FERRIC GLUCONAT-SUCROSE 125 MG in SODIUM CHLORIDE 0.9% 100 ML IVPB SCH (11:36)
[2020-07-19 11:56] LABS: Glucose,Whole Blood 155 mg/dL (75-99)
--- NOTE | 2020-07-19 11:56 | P.PN ---
Subjective Progress Note Date: 07/19/20 Principal diagnosis: Anemia The patient was seen and examined at the bedside. He has 5 L nasal cannula. He is getting scheduled breathing treatments. He states his breathing is a little better today. the patient was seen and examined at the bedside. He is denying any abdominal pain, nausea, or vomiting. He denies any rectal bleeding or melena. He is status post 1 unit PRBC transfusion. Iron studies were ordered, he was started on any iron daily. Objective - Vital Signs Vital signs: Vital Signs Temp 98.3 F 07/19/20 07:00 Pulse 84 07/19/20 11:34 Resp 18 07/19/20 07:00 BP 165/89 07/19/20 07:00 Pulse Ox 97 07/19/20 07:00 Intake & Output 07/18/20 07/19/20 07/19/20 18:59 06:59 18:59 Intake Total 450 Output Total 200 Balance 450 -200 Weight 78.1 kg Intake: Intake, IV Titration 450 Amount Sodium Chloride 0.9% 1, 350 000 ml @ 50 mls/hr IV . Q20H SURYA Rx#:[id number] Sodium Ferric Gluconat- 100 Sucrose 125 mg In Sodium Chloride 0.9% 100 ml @ 100 mls/hr IVPB DAILY SURYA Rx#:[id number] Output: Urine 200 Other: Voiding Method Urinal Incontinent # Voids 1 # Bowel Movements 1 - Exam General appearance: The patient is alert, oriented, in no acute distress. HET: Head is normocephalic and atraumatic. Conjunctiva pink. Sclera and icteric. Neck: Supple without lymphadenopathy. Cardiac: Normal rate and rhythm. Lungs: bilateral wheezes, mildly labored Abdomen: Soft, obese, nontender, nondistended with bowel sounds. No guarding or rigidity. Extremities: Normal skin color and turgor. No pedal edema Neurological: No focal deficits. Alert and oriented 3. - Labs CBC & Chem 7: 07/19/20 05:48 07/18/20 05:48 Labs: Abnormal Lab Results - Last 24 Hours (Table) 07/18/20 07/18/20 07/19/20 Range/Units 16:26 21:08 05:48 WBC 11.0 H (3.8-10.6) k/uL RBC 3.39 L (4.30-5.90) m/uL Hgb 7.6 L (13.0-17.5) gm/dL Hct 25.1 L (39.0-53.0) % MCV 73.9 L (80.0-100.0) fL MCH 22.4 L (25.0-35.0) pg MCHC 30.3 L (31.0-37.0) g/dL RDW 20.1 H (11.5-15.5) % Plt Count 492 H (150-450) k/uL Neutrophils # (Manual) 9.90 H (1.3-7.7) k/uL Lymphocytes # (Manual) 0.99 L (1.0-4.8) k/uL Nucleated RBCs 7 H (0-0) /100 WBC POC Glucose (mg/dL) 173 H 107 H (75-99) mg/dL 07/19/20 Range/Units 06:44 WBC (3.8-10.6) k/uL RBC (4.30-5.90) m/uL Hgb (13.0-17.5) gm/dL Hct (39.0-53.0) % MCV (80.0-100.0) fL MCH (25.0-35.0) pg MCHC (31.0-37.0) g/dL RDW (11.5-15.5) % Plt Count (150-450) k/uL Neutrophils # (Manual) (1.3-7.7) k/uL Lymphocytes # (Manual) (1.0-4.8) k/uL Nucleated RBCs (0-0) /100 WBC POC Glucose (mg/dL) 188 H (75-99) mg/dL Microbiology - Last 24 Hours (Table) 07/14/20 10:51 Blood Culture - Preliminary Blood No Growth after 96 hours Assessment and Plan (1) Microcytic hypochromic anemia Narrative/Plan: This is a 75-year-old male with multiple medical comorbidities presenting to the hospital for fevers and confusion. Currently being treated for back to her an emia. Patient has underlying COPD is quite short of breath on the floor. He is noted to have an acute fall in his hemoglobin from baseline. He denies any signs or symptoms of gastrointestinal bleeding with no melena, hematochezia, coffee-ground emesis, or hematemesis. He does have some weeping of blood from wound on his bilateral upper extremities from tearing of the skin. Suspicion is that anemias multi-factorial due to the multiple medical comorbidities and anemia of chronic disease. There is a component of iron deficiency anemia and cannot rule out a component of GI bleed exacerbated by the patient's anticoagulation therapy. There was extensive discussion with the patient and his daughter and given current respiratory status and overall clinical condition, patient would be high risk for endoscopic evaluation. Current Visit: Yes Status: Acute Code(s): D50.9 - IRON DEFICIENCY ANEMIA, UNSPECIFIED SNOMED Code(s): 20531776 Plan: Supportive care Heart healthy diet Continue to hold anticoagulation therapy Continue Protonix therapy Monitor CBC daily Iron studies ordered and reviewed IV Ferrlecit as ordered At this time we'll hold off on any endovascular procedures until patient is further stabilized. An extensive discussion was done between the patient, daughter, and regarding complications of endoscopic procedure as well as the patient being high risk for for any procedures giving his comorbidities and current clinical status. At this time the patient and family would like conservative management. Transfuse if hemoglobin less than 7 We will follow closely The impression and plan of care has been dictated as directed. I performed a history and examination of this patient, discussed the same with the dictator. I agree with the dictator's note ,documented as a scribe. Any additional findings or plans will be noted.
--- NOTE | 2020-07-19 12:17 | P.PN ---
Subjective Progress Note Date: 07/19/20 patient was seen at bedside and he states that he's doing well today compared to yesterday. He feels the shortness of breath is somewhat better today compared to yesterday. He denies of any new weakness, numbness or visual disturbance. Objective - Vital Signs Vital signs: Vital Signs Temp 98.3 F 07/19/20 07:00 Pulse 84 07/19/20 11:34 Resp 18 07/19/20 07:00 BP 165/89 07/19/20 07:00 Pulse Ox 97 07/19/20 07:00 Intake & Output 07/18/20 07/19/20 07/19/20 18:59 06:59 18:59 Intake Total 450 Output Total 200 Balance 450 -200 Weight 78.1 kg Intake: Intake, IV Titration 450 Amount Sodium Chloride 0.9% 1, 350 000 ml @ 50 mls/hr IV . Q20H SURYA Rx#:[id number] Sodium Ferric Gluconat- 100 Sucrose 125 mg In Sodium Chloride 0.9% 100 ml @ 100 mls/hr IVPB DAILY SURYA Rx#:[id number] Output: Urine 200 Other: Voiding Method Urinal Incontinent # Voids 1 # Bowel Movements 1 - Exam GENERAL: The patient is lying in bed and is not in acute distress. CHEST: The heart rate is regular rate rhythm. No murmurs to auscultation. LUNG: at rest the patient was not short of breath but on examination the patient became very short of breath. And there is no wheezing to auscultation throughout. He was tachypneic with examination. Patient was not in any labored breathing ABDOMEN/GI: Bowel sounds present in all 4 quadrants. No tenderness to palpation throughout. NEUROLOGICAL: Higher mental function: The patient is awake, alert, oriented to self, place and time. Patient is following commands. No aphasia and no neglect. Cranial nerves: The pupils are round, equal and reactive to light and accommodation. Visual bass are full to confrontation throughout. Extraocular movement is intact no nystagmus is noted. Facial sensation is normal to touch throughout. The facial strength is normal throughout. Hearing is normal bilaterally to hand rub. Tongue is midline and moved [id number] without any difficulty. No dysarthria is noted. Shoulder shrug is normal bilaterally. Motor: Gait is defered. He had some difficulty lifting left arms (stated this has been going on for 6 month and had rotator cuff). Upon lifting his left arm he was in pain (shoulder area). His right digits 3-5th extension is 0-1 while wrist is 2-3 (chronic. Patient stated he has chronic Arthritis and was told it was due to that). Otherwise 5/5 throughout in bilateral upper extremities. Right lower extremity was able to lift without drift. Proximal right lower extremity 5/5 while distal was limited because patient became short of breath. Left lower extremity is amputated above knee and above to move it proximally. Cerebellum: Normal finger to nose bilaterally. Sensation: Sensation is normal to touch throughout. Reflexes (right/left): 2+ throughout bilateral upper extremities and not assessed lower extremities. Plantars: Not assessed since right lower extremity is wrapped while left there is amputation of extremity. - Labs CBC & Chem 7: 07/19/20 05:48 07/18/20 05:48 Labs: Abnormal Lab Results - Last 24 Hours (Table) 07/18/20 07/18/20 07/19/20 Range/Units 16:26 21:08 05:48 WBC 11.0 H (3.8-10.6) k/uL RBC 3.39 L (4.30-5.90) m/uL Hgb 7.6 L (13.0-17.5) gm/dL Hct 25.1 L (39.0-53.0) % MCV 73.9 L (80.0-100.0) fL MCH 22.4 L (25.0-35.0) pg MCHC 30.3 L (31.0-37.0) g/dL RDW 20.1 H (11.5-15.5) % Plt Count 492 H (150-450) k/uL Neutrophils # (Manual) 9.90 H (1.3-7.7) k/uL Lymphocytes # (Manual) 0.99 L (1.0-4.8) k/uL Nucleated RBCs 7 H (0-0) /100 WBC POC Glucose (mg/dL) 173 H 107 H (75-99) mg/dL 07/19/20 07/19/20 Range/Units 06:44 11:55 WBC (3.8-10.6) k/uL RBC (4.30-5.90) m/uL Hgb (13.0-17.5) gm/dL Hct (39.0-53.0) % MCV (80.0-100.0) fL MCH (25.0-35.0) pg MCHC (31.0-37.0) g/dL RDW (11.5-15.5) % Plt Count (150-450) k/uL Neutrophils # (Manual) (1.3-7.7) k/uL Lymphocytes # (Manual) (1.0-4.8) k/uL Nucleated RBCs (0-0) /100 WBC POC Glucose (mg/dL) 188 H 155 H (75-99) mg/dL Microbiology - Last 24 Hours (Table) 07/14/20 10:51 Blood Culture - Preliminary Blood No Growth after 96 hours Assessment and Plan Assessment: 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 I contacted the reading radiologist and he also felt was also right occipital as well. CT of the head on 07/15/2020 was done because of the patient transient global amnesia and the there is no change from previous image. Routine EEG (07/18/20): the background slowing suggestive of moderate encephalopathy of unspecified etiology. There is no focal slowing, epileptiform discharges or seizure during the study. Patient is on Xarelto 20 mg daily(home dose) added aspirin 81 mg daily. As a result of his anemia the patient Xarelto was held but the aspirin was continued. Continue Lipitor 40 mg daily. Carotid duplex: Was reported as there is antegrade flow in the right vertebral artery. Did not show flow in the left vertebral artery at. Exam was limited. Less than 20% stenosis in both internal carotid arteries. CT angiogram of the head and neck: No evidence of stenosis. 2-D echo was reported as left ventricle size is normal. There is mild concentric left ventricular hypertrophy. Ejection fraction of 50-55%. There is septal wall motion is delayed and consistent with conduction delay/bundle branch block. Mild tricuspid regurgitation is present. Cardiac monitoring. TSH: 0.562. Lipid panel: Triglyceride 66, cholesterol 87, LDL 32, HDL 42. Gastroenterology team is consulted for the anemia. Once the patient the hemoglobin is stable recommend resuming Xarelto if primary team feels its the safe to do so. Regarding the patient right the hand extensor/wrist weakness and left shoulder( deltoid but limited because of the pain), therefore recommend outpatient EMG with nerve conduction study to rule out radiculopathy versus peripheral neuropathy. Regarding his peripheral vertigo continue meclizine to 12.5 mg twice a day Regarding the patient the arrhythmias such as the proximal A. fib as well as SVT we'll defer the management to the cardiology team as well as the primary team. Regarding the patient anemia we'll defer that to the primary team. Upon discharge the patient needs to follow-up with a neurologist as an outpatient in 2-3 weeks. Sb Tesfaye M.D. Neuro-hospitalist Time with Patient: Less than 30
--- NOTE | 2020-07-19 12:23 | P.PN ---
Subjective Progress Note Date: 07/19/20 Fletcher Sanabria is a 75 yo M with PMH of CAD, T2DM, RA on prednisone, hx PE on xarelto, hx AKA who presented to the ED with confusion and R arm swelling and pain. Pt states his arm has been more painful for at least a week but complains of chronic pain in his ribs as well as lumbar compression fractures. His family is concerned because he is sleeping more, confused, less responsive. Pt denies any obvious cuts or scratches on the arm. On presentation he was febrile and tachcyardic with BP 72/41, WBC 3.1, lactic 4.0, trop 0.055. CXR with interstital prominence, CT head negative. 07/12/2020 blood cultures grew Acinetobacter baumannii, antibiotics adjusted to Unasyn. Sensorium significantly improved. Feels better. Evaluated by both neurology, cardiology with recommendations noted and appreciated. Afebrile, WBC 16.5. Currently on IV push stress dose steroids. Hemoglobin decreased to 7.6. No bleeding reported. Potassium 3.4. BUN 23, and 0.72. 07/17/2020 He remains on unasyn for his RUE cellulitis, underwent CT scan which was negative for abscess. The arm is now much less swollen and painful. Pt is unable to recall the last few days of his hospitalization, Neurology following and CT head with chronic changes. EEG is ordered for today. His Hgb today is down to 6.5 from 7.4 yesterday and 10.3 on admission. He denies any rectal bleeding. 07/18/2020 sensorium improving, mild confusion-reports weekend blurry. Denies nausea vomiting, positive abdominal pain. Status post one unit of packed RBCs, current hemoglobin increased to 7.3.Iron studies noted .Evaluated by GI and neurology. Recommendations noted and appreciated. Chest x-ray reporting persistent cardiomegaly, mild/moderate central vascular congestion and interstitial edema with chronic interstitial fibrosis. EEG reporting moderate encephalopathy of unspecified etiology with no focal slowing or epileptiform discharge or seizures. 07/19/2020 hemoglobin stable. Iron studies completed with oral iron initiated. Denies nausea, vomiting or abdominal pain. No bleeding reported. Maintaining O2 sats in the 90s on 5 L nasal cannula. Maintained on Unasyn, afebrile, elevated WBC of 11. Objective - Vital Signs Vital signs: Vital Signs Temp 98.3 F 07/19/20 07:00 Pulse 84 07/19/20 11:34 Resp 18 07/19/20 07:00 BP 165/89 07/19/20 07:00 Pulse Ox 97 07/19/20 07:00 Intake & Output 07/18/20 07/19/20 07/19/20 18:59 06:59 18:59 Intake Total 450 Output Total 200 Balance 450 -200 Weight 78.1 kg Intake: Intake, IV Titration 450 Amount Sodium Chloride 0.9% 1, 350 000 ml @ 50 mls/hr IV . Q20H SURYA Rx#:[id number] Sodium Ferric Gluconat- 100 Sucrose 125 mg In Sodium Chloride 0.9% 100 ml @ 100 mls/hr IVPB DAILY SURYA Rx#:[id number] Output: Urine 200 Other: Voiding Method Urinal Incontinent # Voids 1 # Bowel Movements 1 - Exam General: Sitting up in bed, NAD. Vitals reviewed Lungs: normal respiratory effort, no rhonchi, crackles or wheezes. CV: Regular rate and rhythm, no murmur. Peripheral pulses 2+ Abdomen: soft, nondistended, diffuse tenderness, no organomegaly, positive bowel sounds Skin: warm and dry. RUE erythema significantly improved. Left AKA, right foot dressing clean dry and intact. Please refer to wound care team documentation. Microbiology 07/14/20 10:51 Blood Blood Culture - Preliminary No Growth after 96 hours 07/10/20 18:36 Blood Blood Culture Gram Stain - Final 07/10/20 18:36 Blood Blood Culture - Final Acinetobacter baumannii 07/10/20 18:36 Blood Blood Culture - Final - Labs CBC & Chem 7: 07/19/20 05:48 07/18/20 05:48 Labs: Abnormal Lab Results - Last 24 Hours (Table) 07/18/20 07/18/20 07/19/20 Range/Units 16:26 21:08 05:48 WBC 11.0 H (3.8-10.6) k/uL RBC 3.39 L (4.30-5.90) m/uL Hgb 7.6 L (13.0-17.5) gm/dL Hct 25.1 L (39.0-53.0) % MCV 73.9 L (80.0-100.0) fL MCH 22.4 L (25.0-35.0) pg MCHC 30.3 L (31.0-37.0) g/dL RDW 20.1 H (11.5-15.5) % Plt Count 492 H (150-450) k/uL Neutrophils # (Manual) 9.90 H (1.3-7.7) k/uL Lymphocytes # (Manual) 0.99 L (1.0-4.8) k/uL Nucleated RBCs 7 H (0-0) /100 WBC POC Glucose (mg/dL) 173 H 107 H (75-99) mg/dL 07/19/20 07/19/20 Range/Units 06:44 11:55 WBC (3.8-10.6) k/uL RBC (4.30-5.90) m/uL Hgb (13.0-17.5) gm/dL Hct (39.0-53.0) % MCV (80.0-100.0) fL MCH (25.0-35.0) pg MCHC (31.0-37.0) g/dL RDW (11.5-15.5) % Plt Count (150-450) k/uL Neutrophils # (Manual) (1.3-7.7) k/uL Lymphocytes # (Manual) (1.0-4.8) k/uL Nucleated RBCs (0-0) /100 WBC POC Glucose (mg/dL) 188 H 155 H (75-99) mg/dL Microbiology - Last 24 Hours (Table) 07/14/20 10:51 Blood Culture - Preliminary Blood No Growth after 96 hours Assessment and Plan Assessment: (1) Sepsis due to Gram negative bacteria Current Visit: Yes Status: Acute Code(s): A41.50 - GRAM-NEGATIVE SEPSIS, UNSPECIFIED SNOMED Code(s): 269448175 (2) acute moderate Metabolic encephalopathy, suspect medication induced Current Visit: Yes Status: Acute Code(s): G93.41 - METABOLIC ENCEPHALOPATHY SNOMED Code(s): 72587114 (3) Acinetobacter bacteremia secondary to possibly Cellulitis of right arm, Current Visit: Yes Status: Acute Code(s): L03.113 - CELLULITIS OF RIGHT UPPER LIMB SNOMED Code(s): 040426741 (4) Elevated troponin Current Visit: Yes Status: Acute Code(s): R79.89 - OTHER SPECIFIED ABNORMAL FINDINGS OF BLOOD CHEMISTRY SNOMED Code(s): 027697632 (5) COPD (chronic obstructive pulmonary disease) Current Visit: No Status: Chronic Code(s): J44.9 - CHRONIC OBSTRUCTIVE PULMONARY DISEASE, UNSPECIFIED SNOMED Code(s): 81181192 (6) Rheumatoid arthritis Current Visit: No Status: Chronic Code(s): M06.9 - RHEUMATOID ARTHRITIS, UNSPECIFIED SNOMED Code(s): 25213755 (7) acute and chronic blood loss anemia, iron deficient. 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 Xarelto remains on hold.maintained on PPI .conservative treatment as discussed between GI , patient and family , with no endoscopy at this time. Continue on antibiotics as per infectious disease. Wound care as per wound team. PT/OT. Discharge planning in progress for the next 24-48 hours to possibly subacute rehab. Social work consulted. The impression and plan of care has been dictated as directed. : I performed a history and examination of this patient, discussed the same with the dictator. I agree with the dictator's note ,documented as a scribe. Any additional findings or plans will be noted.
--- NOTE | 2020-07-19 12:53 | P.PN ---
Subjective Progress Note Date: 07/19/20 Principal diagnosis: Acute on chronic dyspnea, related to chronic obstructive pulmonary disease, right forearm and right wrist cellulitis, no clear evidence of pneumonia On 07/17/2020 patient seen in follow-up on the general medical surgical floor, he is awake, he is resting comfortably in bed, he has chronic shortness of breath, currently his breathing seems to be comfortable, he is on 6 L of oxygen his pulse ox of 99%, hemodynamically patient is stable, he is afebrile. His chest x-ray on 07/13/2020 showed that scattered subpleural fibrosis, mild increased patchy density in the left lower lobe, we did not think this was related to underlying pneumonia. We added IV steroids, patient is receiving nebulized bronchodilators, and antibiotics in the form of Unasyn. His blood culture showed Acinetobacter Kayla, and follow blood culture is negative thus far. Brain CT was obtained in view of episodes of confusion, and revealed age- related changes and possible chronic small vessel ischemia, neurology is following, he is currently having EEG done. Denies any headaches, denies any numbness, no nausea or vomiting, no worsening shortness of breath or chest pain. Today's hemoglobin is 6.9, and and patient was transfused with 1 unit of packed red blood cells. No clear evidence of bleeding, GI service evaluation was requested. ID service is following, nephrology is following, patient is receiving wound care per wound care team. On 07/18/2020 patient seen in follow-up on the general medical surgical floor, he is drowsy, but arousable he remains on 4 L of oxygen a pulse ox of 96-98%, which dropped down the FiO2 down to 2 L, breathing comfortably, less dyspneic. Lung sounds reveal diminished sounds, with bibasilar crackles, no significant wheezes, looking probably switch the IV steroids to oral prednisone, he remains on nebulized bronchodilators, no significant cough or congestion, no convincing chest pain, today's chest x-ray has been reviewed showing low lung volumes, chronic bronchial fibrotic changes bilaterally, pulmonary vascular congestion. Today's labs have been reviewed. His hemoglobin is 7.3 with no obvious signs of bleeding, GI service is following, and patient is receiving iron infusions. He remains on Unasyn for evidence of Acinetobacter Baumanii in the blood cultures, follow blood culture has shown no growth thus far, ID service is following. Patient has been afebrile. On 07/19/2020 patient seen in follow-up on medical surgical floor, he is resting in bed, he is drowsy but easily arouses, isn't questions appropriately, he still gets short of breath with any exertion, but no acute distress at rest, she is on 4 L of oxygen. Pulse ox 97%, his vital signs have been stable, he is afebrile, he is on antibiotics for cellulitis and sepsis, and Acinetobacter Baumannii and the blood cultures. Service is following, he states his breathing still labored at times, is receiving breathing treatments, he is an Unasyn for antibiotics, yesterday's chest x-ray showed hypoventilatory lungs, and pulmonary vascular congestion, possibly related to low lung volumes. Objective - Vital Signs Vital signs: Vital Signs Temp 98.3 F 07/19/20 07:00 Pulse 84 07/19/20 11:34 Resp 18 07/19/20 09:02 BP 165/89 07/19/20 07:00 Pulse Ox 97 07/19/20 07:00 Intake & Output 07/18/20 07/19/20 07/19/20 18:59 06:59 18:59 Intake Total 450 Output Total 200 Balance 450 -200 Weight 78.1 kg Intake: Intake, IV Titration 450 Amount Sodium Chloride 0.9% 1, 350 000 ml @ 50 mls/hr IV . Q20H [facility] Rx#:[id number] Sodium Ferric Gluconat- 100 Sucrose 125 mg In Sodium Chloride 0.9% 100 ml @ 100 mls/hr IVPB DAILY [facility] Rx#:[id number] Output: Urine 200 Other: Voiding Method Urinal Urinal Incontinent Incontinent # Voids 1 # Bowel Movements 1 - Exam GENERAL EXAM: 75-year-old male, currently at 4 L of oxygen pulse ox 97%, resting quietly in bed, awake, drowsy, but arousable to voice appears to be in no acute distress HEAD: Normocephalic/atraumatic. EYES: Normal reaction of pupils, equal size. Conjunctiva pink, sclera white. NOSE: Clear with pink turbinates. THROAT: No erythema or exudates. NECK: No masses, no JVD, no thyroid enlargement, no adenopathy. CHEST: No chest wall deformity. Symmetrical expansion. LUNGS: Diminished air entry with no crackles, wheeze, rhonchi or dullness. CVS: Regular rate and rhythm, normal S1 and S2, no gallops, no murmurs, no rubs ABDOMEN: Soft, nontender. No hepatosplenomegaly, normal bowel sounds, no guarding or rigidity. EXTREMITIES: No clubbing, no edema, no cyanosis, 2+ pulses and upper and lower extremities. Left spozw-lbc-zubo amputation, right foot is wrapped, right arm is wrapped MUSCULOSKELETAL: Muscle strength and tone normal. SPINE: No scoliosis or deformity SKIN: No rashes CENTRAL NERVOUS SYSTEM: Alert and oriented -2. No focal deficits, tone is normal in all 4 extremities. - Labs CBC & Chem 7: 07/19/20 05:48 07/18/20 05:48 Labs: Abnormal Lab Results - Last 24 Hours (Table) 07/18/20 07/18/20 07/19/20 Range/Units 16:26 21:08 05:48 WBC 11.0 H (3.8-10.6) k/uL RBC 3.39 L (4.30-5.90) m/uL Hgb 7.6 L (13.0-17.5) gm/dL Hct 25.1 L (39.0-53.0) % MCV 73.9 L (80.0-100.0) fL MCH 22.4 L (25.0-35.0) pg MCHC 30.3 L (31.0-37.0) g/dL RDW 20.1 H (11.5-15.5) % Plt Count 492 H (150-450) k/uL Neutrophils # (Manual) 9.90 H (1.3-7.7) k/uL Lymphocytes # (Manual) 0.99 L (1.0-4.8) k/uL Nucleated RBCs 7 H (0-0) /100 WBC POC Glucose (mg/dL) 173 H 107 H (75-99) mg/dL 07/19/20 07/19/20 Range/Units 06:44 11:55 WBC (3.8-10.6) k/uL RBC (4.30-5.90) m/uL Hgb (13.0-17.5) gm/dL Hct (39.0-53.0) % MCV (80.0-100.0) fL MCH (25.0-35.0) pg MCHC (31.0-37.0) g/dL RDW (11.5-15.5) % Plt Count (150-450) k/uL Neutrophils # (Manual) (1.3-7.7) k/uL Lymphocytes # (Manual) (1.0-4.8) k/uL Nucleated RBCs (0-0) /100 WBC POC Glucose (mg/dL) 188 H 155 H (75-99) mg/dL Microbiology - Last 24 Hours (Table) 07/14/20 10:51 Blood Culture - Preliminary Blood No Growth after 96 hours Assessment and Plan Plan: Assessment: #1. Dyspnea, acute on chronic, likely related to sepsis related to right upper extremity cellulitis, Acinetobacter baumanii. No clear evidence of pneumonia on chest x-ray #2. Altered mental status likely related to underlying metabolic encephalopathy, neurology services are following #3. Elevated troponin #4. Acinetobacter bacteremia #5. Severe anemia, patient was transfused with 1 unit of packed red blood cells, GI evaluation is requested #6. History of left occipital infarct #7. Type 2 diabetes mellitus #8. History of DVT/PE on Xarelto which is currently on hold for severe anemia #9. Chronic obstructive pulmonary disease, currently stable #10. Hyperlipidemia #11. Right foot wound patient is being seen at the wound Center #12. 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 Coronary artery disease and previous cardiac catheterization and stenting #14. History of pancreatitis #15. History of pericarditis Plan: Continue with breathing treatments, maintain aspiration precautions, continue with nebulized bronchodilators. No clear evidence of pneumonia on the chest x- ray, no fever, he continues on antibiotics, ID service is following, no fever or chills. We'll continue to follow I performed a history & physical examination of the patient and discussed their management with my nurse practitioner, Yoselin Wiggins. I reviewed the nurse practitioner's note and agree with the documented findings and plan of care. Lung sounds are positive for diminished breath sounds. The findings and the impression was discussed with the patient. I attest to the documentation by the nurse practitioner. Time with Patient: Less than 30
[2020-07-19 16:59] LABS: Glucose,Whole Blood 191 mg/dL (75-99)
[2020-07-19] MEDS: SODIUM CHLORIDE 0.9% 1,000 ML IV SCH (18:13)
[2020-07-19 20:51] LABS: Glucose,Whole Blood 114 mg/dL (75-99)
[2020-07-19] MEDS: INSULIN DETEMIR (LEVEMIR) 100 UNIT/ML SYR SQ SCH (21:15)
[2020-07-19] MEDS: ATORVASTATIN 40 MG TAB PO SCH (21:16)
[2020-07-19] MEDS: lisinopriL 10 MG TAB PO SCH (22:50)
--- NOTE | 2020-07-19 23:08 | PN ---
PROGRESS NOTE DATE OF SERVICE: 07/19/2020 REASON FOR FOLLOWUP: Enterobacter bacteremia, source likely right upper extremity cellulitis, and a question of pneumonia. INTERVAL HISTORY: The patient is currently afebrile. He is breathing comfortably today. Denies having any chest pain now. Complains of very minimal cough. No nausea, vomiting, abdominal pain. Overall swelling and redness in the right improved. PHYSICAL EXAMINATION: Blood pressure 178/100 with a pulse of 63, temperature 97.8. He is 97% on 4 L nasal cannula. General description is an elderly male lying in bed in no distress. RESPIRATORY SYSTEM: Unlabored breathing. Clear to auscultation anteriorly. HEART: S1, S2. Regular rate and rhythm. ABDOMEN: Soft. No tenderness. Right arm redness has improved. Swelling is slightly decreased. LABS: Hemoglobin 7.7, white count 11.0. Blood culture repeat has been negative. DIAGNOSTIC IMPRESSION AND PLAN: Patient with acinetobacter bacteremia. Concern is likely from the right upper extremity cellulitis. Pneumonia less likely but not entirely excluded. The patient's antibiotic was switched over to cefazolin 2 grams q.8 hours for ease of administration, and then decrease to 6-hour dosing of the Unasyn and continue with supportive care. MMODL / IJN: [id number] /
[2020-07-19] MEDS: CEFEPIME 2 GM in SODIUM CHLORIDE 0.9% 100 ML IVPB SCH (23:34)
[2020-07-20] MEDS ORDERED: hydrALAZINE HCL 20 MG/ML 1 ML VIAL IVP STA (03:07)
[2020-07-20] MEDS: oxyCODONE-APAP 10-325MG 1 EACH TAB PO PRN ×3 (04:22→23:45)
[2020-07-20 06:22] LABS: Anisocytosis Moderate; Basophils % (A) 0 %; Eosinophils % (A) 0 %; HCT 29.8 % (39.0-53.0); HGB 8.4 gm/dL (13.0-17.5); Hypochromasia Marked; Lymphocytes # (A) 1.3 k/uL (1.0-4.8); Lymphocytes % (A) 11 %; MCH 21.1 pg (25.0-35.0); MCHC 28.2 g/dL (31.0-37.0); MCV 74.6 fL (80.0-100.0); Mean Platelet Volume 7.6; Microcytosis Moderate; Monocytes # (A) 0.3 k/uL (0-1.0); Monocytes % (A) 3 %; Neutrophils # (A) 10.3 k/uL (1.3-7.7); Neutrophils % (A) 85 %; Platelet Count 597 k/uL (150-450); Poikilocytosis Slight; RDW 20.3 % (11.5-15.5)
[2020-07-20] MEDS: IPRATROPIUM-ALBUTEROL 3 ML NEB INHALATION SCH ×4 (07:26→19:20)
[2020-07-20] MEDS: FORMOTEROL FUMARATE 20 MCG/2 ML NEBU INHALATION SCH ×2 (07:26→19:36)
[2020-07-20] MEDS: BUDESONIDE 1 MG/2 ML NEBU INHALATION SCH ×2 (07:26→19:20)
[2020-07-20 07:39] LABS: Glucose,Whole Blood 177 mg/dL (75-99)
[2020-07-20] MEDS: PANTOPRAZOLE 40 MG TABLET PO SCH ×2 (08:12→17:33)
[2020-07-20] MEDS: METOPROLOL TARTRATE 50 MG TAB PO SCH (08:12)
[2020-07-20] MEDS: lisinopriL 10 MG TAB PO SCH (08:12)
[2020-07-20] MEDS: GABAPENTIN 300 MG CAP PO SCH ×3 (08:12→21:16)
[2020-07-20] MEDS: NYSTATIN 100,000 UNIT/ML SUSP 500,000 UNIT/5 ML CUP PO SCH ×4 (08:12→21:16)
[2020-07-20] MEDS: predniSONE 20 MG TAB PO SCH (08:12)
[2020-07-20] MEDS: ASPIRIN 81 MG PO SCH (08:12)
[2020-07-20] MEDS: INSULIN ASPART (NovoLOG) 100 UNIT/ML VIAL SQ SCH ×4 (08:13→20:43)
[2020-07-20] MEDS: CEFEPIME 2 GM in SODIUM CHLORIDE 0.9% 100 ML IVPB SCH ×3 (08:13→23:38)
[2020-07-20] MEDS: MECLIZINE 12.5 MG TAB PO SCH ×2 (08:13→21:16)
[2020-07-20 09:47] LABS: African American GFR (CKD) 115.6 (60.0-200.0); Anion Gap 8.2 mmol/L (4.00-12.00); Calcium 7.8 mg/dL (8.7-10.3); Carbon Dioxide 27.8 mmol/L (21.6-31.8); Non-African American GFR(CKD) 99.7 (60.0-200.0); Potassium 3.9 mmol/L (3.5-5.5)
[2020-07-20] MEDS: SODIUM FERRIC GLUCONAT-SUCROSE 125 MG in SODIUM CHLORIDE 0.9% 100 ML IVPB SCH (10:17)
[2020-07-20 11:29] LABS: Glucose,Whole Blood 167 mg/dL (75-99)
[2020-07-20] MEDS: lisinopriL 20 MG TAB PO SCH (11:59)
--- NOTE | 2020-07-20 13:02 | P.PN ---
Subjective Progress Note Date: 07/20/20 Principal diagnosis: Anemia The patient was seen and examined at the bedside. He has 5 L nasal cannula. He is getting scheduled breathing treatments. He states his breathing is a little better today. The patient was seen and examined at the bedside. He is complaining of epigastric pain, nausea, or vomiting. He denies any rectal bleeding or melena. He is status post 1 unit PRBC transfusion. Iron studies were ordered, IV iron 3 was ordered. Hemoglobin is stable at 8.4 Objective - Vital Signs Vital signs: Vital Signs Temp 98.0 F 07/20/20 07:00 Pulse 76 07/20/20 11:14 Resp 20 07/20/20 07:00 BP 156/73 07/20/20 09:21 Pulse Ox 100 07/20/20 07:00 Intake & Output 07/19/20 07/20/20 07/20/20 18:59 06:59 18:59 Intake Total 500 100 Output Total 200 Balance 500 -100 Intake: Intake, IV Titration 500 Amount Ampicillin-Sulbactam 3 gm 100 In Sodium Chloride 0.9% 100 ml @ 200 mls/hr IVPB Q6H [facility] Rx#:[id number] Sodium Chloride 0.9% 1, 300 000 ml @ 50 mls/hr IV . Q20H [facility] Rx#:[id number] Sodium Ferric Gluconat- 100 Sucrose 125 mg In Sodium Chloride 0.9% 100 ml @ 100 mls/hr IVPB DAILY [facility] Rx#:[id number] Oral 100 Output: Urine 200 Other: Voiding Method Urinal Urinal Urinal Incontinent Incontinent Incontinent # Voids 2 1 - Exam General appearance: The patient is alert, oriented, in no acute distress. HET: Head is normocephalic and atraumatic. Conjunctiva pink. Sclera and icteric. Neck: Supple without lymphadenopathy. Cardiac: Normal rate and rhythm. Lungs: bilateral wheezes, mildly labored Abdomen: Soft, obese, mild Gastric tenderness, nondistended with bowel sounds. No guarding or rigidity. Extremities: Normal skin color and turgor. No pedal edema Neurological: No focal deficits. Alert and oriented 3. - Labs CBC & Chem 7: 07/20/20 06:09 07/20/20 06:09 Labs: Abnormal Lab Results - Last 24 Hours (Table) 10/05/0107/19/20 07/20/20 Range/Units 16:56 20:39 06:09 WBC 12.0 H (3.8-10.6) k/uL RBC 4.00 L (4.30-5.90) m/uL Hgb 8.4 L (13.0-17.5) gm/dL Hct 29.8 L (39.0-53.0) % MCV 74.6 L (80.0-100.0) fL MCH 21.1 L (25.0-35.0) pg MCHC 28.2 L (31.0-37.0) g/dL RDW 20.3 H (11.5-15.5) % Plt Count 597 H (150-450) k/uL Neutrophils # 10.3 H (1.3-7.7) k/uL BUN/Creatinine Ratio (12.00-20.00) Ratio POC Glucose (mg/dL) 191 H 114 H (75-99) mg/dL Calcium (8.7-10.3) mg/dL 07/20/20 07/20/20 07/20/20 Range/Units 06:09 07:11 11:23 WBC (3.8-10.6) k/uL RBC (4.30-5.90) m/uL Hgb (13.0-17.5) gm/dL Hct (39.0-53.0) % MCV (80.0-100.0) fL MCH (25.0-35.0) pg MCHC (31.0-37.0) g/dL RDW (11.5-15.5) % Plt Count (150-450) k/uL Neutrophils # (1.3-7.7) k/uL BUN/Creatinine Ratio 25.00 H (12.00-20.00) Ratio POC Glucose (mg/dL) 177 H 167 H (75-99) mg/dL Calcium 7.8 L (8.7-10.3) mg/dL Microbiology - Last 24 Hours (Table) 07/14/20 10:51 Blood Culture - Preliminary Blood No Growth after 120 hours Assessment and Plan (1) Microcytic hypochromic anemia Narrative/Plan: This is a 75-year-old male with multiple medical comorbidities presenting to the hospital for fevers and confusion. Currently being treated for back to her anemia. Patient has underlying COPD is quite short of breath on the floor. He is noted to have an acute fall in his hemoglobin from baseline. He denies any signs or symptoms of gastrointestinal bleeding with no melena, hematochezia, coffee-ground emesis, or hematemesis. He does have some weeping of blood from wound on his bilateral upper extremities from tearing of the skin. Suspicion is that anemias multi-factorial due to the multiple medical comorbidities and anemia of chronic disease. There is a component of iron deficiency anemia and cannot rule out a component of GI bleed exacerbated by the patient's anticoagulation therapy. There was extensive discussion with the patient and his daughter and given current respiratory status and overall clinical condition, patient would be high risk for endoscopic evaluation. Neurology has discussed proceeding with endoscopies due to reinitiating the patient on his several toe and aspirin daily. Pulmonology has been following patient and he is clinically improving. Pulmonology has cleared patient for an EGD. Patient is agreeable to proceed with EGD tomorrow. Current Visit: Yes Status: Acute Code(s): D50.9 - IRON DEFICIENCY ANEMIA, UNSPECIFIED SNOMED Code(s): 83751067 Plan: Supportive care Heart healthy diet, NPO after midnight Continue to hold anticoagulation therapy Continue Protonix therapy Monitor CBC daily Iron studies ordered and reviewed IV Ferrlecit as ordered An extensive discussion was done between the patient, daughter, and regarding complications of endoscopic procedure as well as the patient being high risk for for any procedures giving his comorbidities and current clinical status. The patient is agreeable to procedd with an upper endoscopy at this time. Pulmonology states patient is cleared by them for EGD. Transfuse if hemoglobin less than 7 We will follow closely The impression and plan of care has been dictated as directed. I performed a history and examination of this patient, discussed the same with the dictator. I agree with the dictator's note ,documented as a scribe. Any additional findings or plans will be noted.
--- NOTE | 2020-07-20 13:03 | P.PN ---
Subjective Progress Note Date: 07/20/20 Principal diagnosis: Acute on chronic dyspnea, related to chronic obstructive pulmonary disease, right forearm and right wrist cellulitis, no clear evidence of pneumonia On 07/17/2020 patient seen in follow-up on the general medical surgical floor, he is awake, he is resting comfortably in bed, he has chronic shortness of breath, currently his breathing seems to be comfortable, he is on 6 L of oxygen his pulse ox of 99%, hemodynamically patient is stable, he is afebrile. His chest x-ray on 07/13/2020 showed that scattered subpleural fibrosis, mild increased patchy density in the left lower lobe, we did not think this was related to underlying pneumonia. We added IV steroids, patient is receiving nebulized bronchodilators, and antibiotics in the form of Unasyn. His blood culture showed Acinetobacter Kayla, and follow blood culture is negative thus far. Brain CT was obtained in view of episodes of confusion, and revealed age- related changes and possible chronic small vessel ischemia, neurology is following, he is currently having EEG done. Denies any headaches, denies any numbness, no nausea or vomiting, no worsening shortness of breath or chest pain. Today's hemoglobin is 6.9, and and patient was transfused with 1 unit of packed red blood cells. No clear evidence of bleeding, GI service evaluation was requested. ID service is following, nephrology is following, patient is receiving wound care per wound care team. On 07/18/2020 patient seen in follow-up on the general medical surgical floor, he is drowsy, but arousable he remains on 4 L of oxygen a pulse ox of 96-98%, which dropped down the FiO2 down to 2 L, breathing comfortably, less dyspneic. Lung sounds reveal diminished sounds, with bibasilar crackles, no significant wheezes, looking probably switch the IV steroids to oral prednisone, he remains on nebulized bronchodilators, no significant cough or congestion, no convincing chest pain, today's chest x-ray has been reviewed showing low lung volumes, chronic bronchial fibrotic changes bilaterally, pulmonary vascular congestion. Today's labs have been reviewed. His hemoglobin is 7.3 with no obvious signs of bleeding, GI service is following, and patient is receiving iron infusions. He remains on Unasyn for evidence of Acinetobacter Baumanii in the blood cultures, follow blood culture has shown no growth thus far, ID service is following. Patient has been afebrile. On 07/19/2020 patient seen in follow-up on medical surgical floor, he is resting in bed, he is drowsy but easily arouses, isn't questions appropriately, he still gets short of breath with any exertion, but no acute distress at rest, she is on 4 L of oxygen. Pulse ox 97%, his vital signs have been stable, he is afebrile, he is on antibiotics for cellulitis and sepsis, and Acinetobacter Baumannii and the blood cultures. Service is following, he states his breathing still labored at times, is receiving breathing treatments, he is an Unasyn for antibiotics, yesterday's chest x-ray showed hypoventilatory lungs, and pulmonary vascular congestion, possibly related to low lung volumes. On 07/20/2020 patient seen in follow-up on general medical surgical floor, she is currently working with physical therapy, does become quite dyspneic with any exertion. He is awake and alert, he is on 4 L of oxygen his pulse ox of 93%, he is afebrile, hemodynamically patient stable. Denies any chest pain, denies any significant cough or congestion, lung sounds reveal diminished breath sounds with some scattered wheezes, patient is receiving breathing treatments, he remains on oral steroids. He is on antibiotics in the form of cefepime. ID service is following, patient is being treated for cellulitis involving his right upper extremity, and right lower extremity, and bacteremia related to Acinetobacter baumannii. Objective - Vital Signs Vital signs: Vital Signs Temp 98.0 F 07/20/20 07:00 Pulse 76 07/20/20 11:14 Resp 20 07/20/20 07:00 BP 156/73 07/20/20 09:21 Pulse Ox 100 07/20/20 07:00 Intake & Output 07/19/20 07/20/20 07/20/20 18:59 06:59 18:59 Intake Total 500 100 Output Total 200 Balance 500 -100 Intake: Intake, IV Titration 500 Amount Ampicillin-Sulbactam 3 gm 100 In Sodium Chloride 0.9% 100 ml @ 200 mls/hr IVPB Q6H [facility] Rx#:[id number] Sodium Chloride 0.9% 1, 300 000 ml @ 50 mls/hr IV . Q20H [facility] Rx#:[id number] Sodium Ferric Gluconat- 100 Sucrose 125 mg In Sodium Chloride 0.9% 100 ml @ 100 mls/hr IVPB DAILY [facility] Rx#:[id number] Oral 100 Output: Urine 200 Other: Voiding Method Urinal Urinal Urinal Incontinent Incontinent Incontinent # Voids 2 1 - Exam GENERAL EXAM: 75-year-old male, currently at 4 L of oxygen pulse ox 97%, dyspneic, patient just continue working with physical therapy, to voice appears to be in no acute distress HEAD: Normocephalic/atraumatic. EYES: Normal reaction of pupils, equal size. Conjunctiva pink, sclera white. NOSE: Clear with pink turbinates. THROAT: No erythema or exudates. NECK: No masses, no JVD, no thyroid enlargement, no adenopathy. CHEST: No chest wall deformity. Symmetrical expansion. LUNGS: Diminished air entry with no crackles, wheeze, rhonchi or dullness. CVS: Regular rate and rhythm, normal S1 and S2, no gallops, no murmurs, no rubs ABDOMEN: Soft, nontender. No hepatosplenomegaly, normal bowel sounds, no guarding or rigidity. EXTREMITIES: No clubbing, no edema, no cyanosis, 2+ pulses and upper and lower extremities. Left dxzip-fhe-kcud amputation, right foot is wrapped, right arm is wrapped MUSCULOSKELETAL: Muscle strength and tone normal. SPINE: No scoliosis or deformity SKIN: No rashes CENTRAL NERVOUS SYSTEM: Alert and oriented -2. No focal deficits, tone is normal in all 4 extremities. - Labs CBC & Chem 7: 07/20/20 06:09 07/20/20 06:09 Labs: Abnormal Lab Results - Last 24 Hours (Table) 07/19/20 07/19/20 07/20/20 Range/Units 16:56 20:39 06:09 WBC 12.0 H (3.8-10.6) k/uL RBC 4.00 L (4.30-5.90) m/uL Hgb 8.4 L (13.0-17.5) gm/dL Hct 29.8 L (39.0-53.0) % MCV 74.6 L (80.0-100.0) fL MCH 21.1 L (25.0-35.0) pg MCHC 28.2 L (31.0-37.0) g/dL RDW 20.3 H (11.5-15.5) % Plt Count 597 H (150-450) k/uL Neutrophils # 10.3 H (1.3-7.7) k/uL BUN/Creatinine Ratio (12.00-20.00) Ratio POC Glucose (mg/dL) 191 H 114 H (75-99) mg/dL Calcium (8.7-10.3) mg/dL 07/20/20 07/20/20 07/20/20 Range/Units 06:09 07:11 11:23 WBC (3.8-10.6) k/uL RBC (4.30-5.90) m/uL Hgb (13.0-17.5) gm/dL Hct (39.0-53.0) % MCV (80.0-100.0) fL MCH (25.0-35.0) pg MCHC (31.0-37.0) g/dL RDW (11.5-15.5) % Plt Count (150-450) k/uL Neutrophils # (1.3-7.7) k/uL BUN/Creatinine Ratio 25.00 H (12.00-20.00) Ratio POC Glucose (mg/dL) 177 H 167 H (75-99) mg/dL Calcium 7.8 L (8.7-10.3) mg/dL Microbiology - Last 24 Hours (Table) 07/14/20 10:51 Blood Culture - Preliminary Blood No Growth after 120 hours Assessment and Plan Plan: Assessment: #1. Dyspnea, acute on chronic, likely related to sepsis related to right upper extremity cellulitis, Acinetobacter baumanii. No clear evidence of pneumonia on chest x-ray #2. Altered mental status likely related to underlying metabolic encephalopathy, neurology services are following #3. Elevated troponin #4. Acinetobacter bacteremia #5. Severe anemia, patient was transfused with 1 unit of packed red blood cells, GI evaluation is requested #6. History of left occipital infarct #7. Type 2 diabetes mellitus #8. History of DVT/PE on Xarelto which is currently on hold for severe anemia #9. Chronic obstructive pulmonary disease, currently stable #10. Hyperlipidemia #11. Right foot wound patient is being seen at the wound Center #12. 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 Coronary artery disease and previous cardiac catheterization and stenting #14. History of pancreatitis #15. History of pericarditis Plan: Continue with same medical treatment, steroids, breathing treatments, antibiotics per ID service recommendations, we were asked to give the patient pulmonary clearance for EGD tomorrow. Patient is clear from pulmonary perspe ctive for EGD. I performed a history & physical examination of the patient and discussed their management with my nurse practitioner, Yoselin Wiggins. I reviewed the nurse practitioner's note and agree with the documented findings and plan of care. Lung sounds are positive for diminished breath sounds. The findings and the impression was discussed with the patient. I attest to the documentation by the nurse practitioner. Time with Patient: Less than 30
--- NOTE | 2020-07-20 13:35 | P.PN ---
Subjective Progress Note Date: 07/20/20 Patient was seen at bedside and he said that he is doing well. Denies of any new weakness, numbness or visual disturbance. He feels like his shortness of breath has been doing better. Objective - Vital Signs Vital signs: Vital Signs Temp 98.0 F 07/20/20 07:00 Pulse 84 07/20/20 07:53 Resp 20 07/20/20 07:00 BP 178/99 07/20/20 07:00 Pulse Ox 100 07/20/20 07:00 Intake & Output 07/19/20 07/20/20 07/20/20 18:59 06:59 18:59 Intake Total 500 100 Output Total 200 Balance 500 -100 Intake: Intake, IV Titration 500 Amount Ampicillin-Sulbactam 3 gm 100 In Sodium Chloride 0.9% 100 ml @ 200 mls/hr IVPB Q6H [facility] Rx#:[id number] Sodium Chloride 0.9% 1, 300 000 ml @ 50 mls/hr IV . Q20H [facility] Rx#:[id number] Sodium Ferric Gluconat- 100 Sucrose 125 mg In Sodium Chloride 0.9% 100 ml @ 100 mls/hr IVPB DAILY [facility] Rx#:[id number] Oral 100 Output: Urine 200 Other: Voiding Method Urinal Urinal Incontinent Incontinent # Voids 2 1 - Exam GENERAL: The patient is lying in bed and is not in acute distress. CHEST: The heart rate is regular rate rhythm. No murmurs to auscultation. LUNG: At rest the patient was not short of breath but on examination the patient became very short of breath. And there is no wheezing to auscultation throughout. He was tachypneic with examination. Patient was not in any labored breathing ABDOMEN/GI: Bowel sounds present in all 4 quadrants. No tenderness to palpation throughout. NEUROLOGICAL: Higher mental function: The patient is awake, alert, oriented to self, place and time. Patient is following commands. No aphasia and no neglect. Cranial nerves: The pupils are round, equal and reactive to light and accommodation. Visual bass are full to confrontation throughout. Extraocular movement is intact no nystagmus is noted. Facial sensation is normal to touch throughout. The facial strength is normal throughout. Hearing is normal bilaterally to hand rub. Tongue is midline and moved [id number] without any difficulty. No dysarthria is noted. Shoulder shrug is normal bilaterally. Motor: Gait is defered. He had some difficulty lifting left arms (stated this has been going on for 6 month and had rotator cuff) and had pain in shoulder area. His right digits 3-5th extension are 0-1 while wrist is 3 (chronic, he said he was told its due to Arthritis). Otherwise 5/5 throughout in bilateral upper extremities. Right lower extremity was able to lift without drift. Proximal right lower extremity 5/5 while distal was limited because patient became short of breath. Left proximal lower extremity is 5/5. Left lower extremity is amputated above knee. Cerebellum: Normal finger to nose bilaterally. Sensation: Sensation is normal to touch throughout. Reflexes (right/left): 2+ throughout bilateral upper extremities and not assessed lower extremities. Plantars: Not assessed since right lower extremity is wrapped while left there is amputation of extremity. - Labs CBC & Chem 7: 07/20/20 06:09 07/20/20 06:09 Labs: Abnormal Lab Results - Last 24 Hours (Table) 07/19/20 07/19/20 07/19/20 Range/Units 11:55 16:56 20:39 WBC (3.8-10.6) k/uL RBC (4.30-5.90) m/uL Hgb (13.0-17.5) gm/dL Hct (39.0-53.0) % MCV (80.0-100.0) fL MCH (25.0-35.0) pg MCHC (31.0-37.0) g/dL RDW (11.5-15.5) % Plt Count (150-450) k/uL Neutrophils # (1.3-7.7) k/uL POC Glucose (mg/dL) 155 H 191 H 114 H (75-99) mg/dL 07/20/20 07/20/20 Range/Units 06:09 07:11 WBC 12.0 H (3.8-10.6) k/uL RBC 4.00 L (4.30-5.90) m/uL Hgb 8.4 L (13.0-17.5) gm/dL Hct 29.8 L (39.0-53.0) % MCV 74.6 L (80.0-100.0) fL MCH 21.1 L (25.0-35.0) pg MCHC 28.2 L (31.0-37.0) g/dL RDW 20.3 H (11.5-15.5) % Plt Count 597 H (150-450) k/uL Neutrophils # 10.3 H (1.3-7.7) k/uL POC Glucose (mg/dL) 177 H (75-99) mg/dL Microbiology - Last 24 Hours (Table) 07/14/20 10:51 Blood Culture - Preliminary Blood No Growth after 120 hours Assessment and Plan Assessment: 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 I contacted the reading radiologist and he also felt was also right occipital as well. CT of the head on 07/15/2020 was done because of the patient transient global am nesia and the there is no change from previous image. Routine EEG (07/18/20): the background slowing suggestive of moderate encephalopathy of unspecified etiology. There is no focal slowing, epileptiform discharges or seizure during the study. Patient is on Xarelto 20 mg daily(home dose) added aspirin 81 mg daily. As a result of his anemia the patient Xarelto was held but the aspirin was continued. Continue Lipitor 40 mg daily. Carotid duplex: Was reported as there is antegrade flow in the right vertebral artery. Did not show flow in the left vertebral artery at. Exam was limited. Less than 20% stenosis in both internal carotid arteries. CT angiogram of the head and neck: No evidence of stenosis. 2-D echo was reported as left ventricle size is normal. There is mild concentric left ventricular hypertrophy. Ejection fraction of 50-55%. There is septal wall motion is delayed and consistent with conduction delay/bundle branch block. Mild tricuspid regurgitation is present. Cardiac monitoring. TSH: 0.562. Lipid panel: Triglyceride 66, cholesterol 87, LDL 32, HDL 42. Gastroenterology team are on board. Once the patient the hemoglobin is stable recommend resuming Xarelto if primary team feels its the safe to do so. Regarding the patient right hand extensor/wrist and left shoulder( deltoid but limited because of the pain) weakness, therefore recommend outpatient EMG with nerve conduction study to rule out radiculopathy versus peripheral neuropathy. Regarding his peripheral vertigo continue meclizine to 12.5 mg twice a day Regarding the patient anemia we'll defer that to the primary team. Upon discharge the patient needs to follow-up with a neurologist as an outpatient in 2-3 weeks. Sb Tesfaye M.D. Neuro-hospitalist Time with Patient: Less than 30
[2020-07-20 17:39] LABS: Glucose,Whole Blood 161 mg/dL (75-99)
[2020-07-20 20:39] LABS: Glucose,Whole Blood 89 mg/dL (75-99)
[2020-07-20] MEDS: INSULIN DETEMIR (LEVEMIR) 100 UNIT/ML SYR SQ SCH (21:14)
[2020-07-20] MEDS: ATORVASTATIN 40 MG TAB PO SCH (21:16)
--- NOTE | 2020-07-20 22:55 | P.PN ---
Subjective Progress Note Date: 07/20/20 He remains on unasyn for his RUE cellulitis, he continues to improve and no longer any arm redness. His hemoglobin is stable today, GI planning on EGD tomorrow. He denies any futher confusion or fatigue. BP elevated overnight requiring hydralazine. Objective - Vital Signs Vital signs: Vital Signs Temp 98 F 07/20/20 19:30 Pulse 78 07/20/20 19:44 Resp 21 07/20/20 19:30 BP 161/89 07/20/20 19:30 Pulse Ox 96 07/20/20 19:30 Intake & Output 07/20/20 07/20/20 07/21/20 06:59 18:59 06:59 Intake Total 100 Output Total 200 Balance -100 Weight 78.1 kg Intake: Oral 100 Output: Urine 200 Other: Voiding Method Urinal Urinal Urinal Incontinent Incontinent Incontinent # Voids 1 3 1 - Exam General: well nourished, well developed, NAD. Vitals reviewed Lungs: normal respiratory effort, no wheezes or rales CV: Regular rate and rhythm, no murmur. Peripheral pulses 2+ Abdomen: soft, nondistended, no organomegaly Skin: warm and dry. RUE minimal erythema - Labs CBC & Chem 7: 07/20/20 06:09 07/20/20 06:09 Labs: Abnormal Lab Results - Last 24 Hours (Table) 07/20/20 07/20/20 07/20/20 Range/Units 06:09 06:09 07:11 WBC 12.0 H (3.8-10.6) k/uL RBC 4.00 L (4.30-5.90) m/uL Hgb 8.4 L (13.0-17.5) gm/dL Hct 29.8 L (39.0-53.0) % MCV 74.6 L (80.0-100.0) fL MCH 21.1 L (25.0-35.0) pg MCHC 28.2 L (31.0-37.0) g/dL RDW 20.3 H (11.5-15.5) % Plt Count 597 H (150-450) k/uL Neutrophils # 10.3 H (1.3-7.7) k/uL BUN/Creatinine Ratio 25.00 H (12.00-20.00) Ratio POC Glucose (mg/dL) 177 H (75-99) mg/dL Calcium 7.8 L (8.7-10.3) mg/dL 07/20/20 07/20/20 Range/Units 11:23 17:29 WBC (3.8-10.6) k/uL RBC (4.30-5.90) m/uL Hgb (13.0-17.5) gm/dL Hct (39.0-53.0) % MCV (80.0-100.0) fL MCH (25.0-35.0) pg MCHC (31.0-37.0) g/dL RDW (11.5-15.5) % Plt Count (150-450) k/uL Neutrophils # (1.3-7.7) k/uL BUN/Creatinine Ratio (12.00-20.00) Ratio POC Glucose (mg/dL) 167 H 161 H (75-99) mg/dL Calcium (8.7-10.3) mg/dL Microbiology - Last 24 Hours (Table) 07/14/20 10:51 Blood Culture - Final Blood No Growth after 144 hours Assessment and Plan (1) Sepsis due to Gram negative bacteria Current Visit: Yes Status: Acute Code(s): A41.50 - GRAM-NEGATIVE SEPSIS, UNS PECIFIED SNOMED Code(s): 212879255 (2) Metabolic encephalopathy Current Visit: Yes Status: Acute Code(s): G93.41 - METABOLIC ENCEPHALOPATHY SNOMED Code(s): 24729364 (3) Cellulitis of right arm Current Visit: Yes Status: Acute Code(s): L03.113 - CELLULITIS OF RIGHT UPPER LIMB SNOMED Code(s): 357918689 (4) Elevated troponin Current Visit: Yes Status: Acute Code(s): R79.89 - OTHER SPECIFIED ABNORMAL FINDINGS OF BLOOD CHEMISTRY SNOMED Code(s): 109762036 (5) COPD (chronic obstructive pulmonary disease) Current Visit: No Status: Chronic Code(s): J44.9 - CHRONIC OBSTRUCTIVE PULMONARY DISEASE, UNSPECIFIED SNOMED Code(s): 31558579 (6) Rheumatoid arthritis Current Visit: No Status: Chronic Code(s): M06.9 - RHEUMATOID ARTHRITIS, UNSPECIFIED SNOMED Code(s): 26400920 Plan: Continue with Unasyn, ID following. Confusion is resolved, suspect due to metabolic encephalopathy. Hgb stable, hold xarelto, EGD per GI tomorrow. Incr ease lisinopril today.
--- NOTE | 2020-07-20 23:24 | PN ---
PROGRESS NOTE DATE OF SERVICE: 07/20/2020 REASON FOR FOLLOWUP: Acinetobacter bacteremia, source likely cellulitis plus/minus pneumonia. INTERVAL HISTORY: The patient is currently afebrile. The patient is still complaining of shortness of breath. No chest pain. Minimal cough. No nausea. No vomiting. No abdominal pain. Overall swelling and redness to the right arm have improved. PHYSICAL EXAMINATION: Blood pressure 160/89 with a pulse of 73, temperature 98. He is 96% on 5 L nasal cannula. General description is an elderly male lying in bed in no distress. RESPIRATORY SYSTEM: Unlabored breathing with decreased intensity of breath sounds. No wheeze. HEART: S1, S2. Regular rate and rhythm. ABDOMEN: Soft. No tenderness. Right upper extremity swelling and redness improved. LABS: Hemoglobin 8.4, white count 12. BUN of 15, creatinine 0.6. Blood culture repeat has been negative. DIAGNOSTIC IMPRESSION AND PLAN: Patient with Acinetobacter bacteremia, source likely right upper extremity cellulitis with a question of possible pneumonia. The patient is currently covered with cefazolin 2 grams q.8 hours; to continue to finish a course of therapy, and monitor his clinical course closely. MMODL / IJN: [id number] /
[2020-07-21] MEDS: IPRATROPIUM-ALBUTEROL 3 ML NEB INHALATION PRN (00:55)
[2020-07-21] MEDS ORDERED: hydrALAZINE HCL 20 MG/ML 1 ML VIAL IVP STA (02:24)
[2020-07-21] MEDS ORDERED: traZODone HCL 50 MG TAB PO STA (02:24)
[2020-07-21 06:18] LABS: Anisocytosis Moderate; Basophils % (A) 0 %; Eosinophils # (A) 0.1 k/uL (0-0.7); Eosinophils % (A) 1 %; HCT 30.6 % (39.0-53.0); HGB 8.8 gm/dL (13.0-17.5); Hypochromasia Marked; Lymphocytes # (A) 1.5 k/uL (1.0-4.8); Lymphocytes % (A) 13 %; MCH 21.2 pg (25.0-35.0); MCHC 28.8 g/dL (31.0-37.0); MCV 73.6 fL (80.0-100.0); Mean Platelet Volume 7.3; Microcytosis Marked; Monocytes # (A) 0.3 k/uL (0-1.0); Monocytes % (A) 3 %; Neutrophils # (A) 9.5 k/uL (1.3-7.7); Neutrophils % (A) 82 %; Platelet Count 583 k/uL (150-450); Poikilocytosis Slight; RBC 4.16 m/uL (4.30-5.90); RDW 21.4 % (11.5-15.5); WBC 11.5 k/uL (3.8-10.6)
[2020-07-21] MEDS: FORMOTEROL FUMARATE 20 MCG/2 ML NEBU INHALATION SCH ×2 (07:34→19:45)
[2020-07-21] MEDS: BUDESONIDE 1 MG/2 ML NEBU INHALATION SCH ×2 (07:34→19:45)
[2020-07-21] MEDS: IPRATROPIUM-ALBUTEROL 3 ML NEB INHALATION SCH ×4 (07:35→19:45)
[2020-07-21 07:40] LABS: Glucose,Whole Blood 201 mg/dL (75-99)
[2020-07-21] MEDS: CEFEPIME 2 GM in SODIUM CHLORIDE 0.9% 100 ML IVPB SCH ×3 (08:05→23:46)
[2020-07-21] MEDS: ASPIRIN 81 MG PO SCH (08:05)
[2020-07-21] MEDS: predniSONE 20 MG TAB PO SCH (08:05)
[2020-07-21] MEDS: oxyCODONE-APAP 10-325MG 1 EACH TAB PO PRN (08:05)
[2020-07-21] MEDS: PANTOPRAZOLE 40 MG TABLET PO SCH ×2 (08:05→17:35)
[2020-07-21] MEDS: GABAPENTIN 300 MG CAP PO SCH ×3 (08:05→20:57)
[2020-07-21] MEDS: MECLIZINE 12.5 MG TAB PO SCH ×2 (08:05→20:58)
[2020-07-21] MEDS: lisinopriL 20 MG TAB PO SCH (08:05)
[2020-07-21] MEDS: NYSTATIN 100,000 UNIT/ML SUSP 500,000 UNIT/5 ML CUP PO SCH ×4 (08:06→20:58)
[2020-07-21] MEDS: METOPROLOL TARTRATE 50 MG TAB PO SCH (08:06)
[2020-07-21] MEDS: INSULIN ASPART (NovoLOG) 100 UNIT/ML VIAL SQ SCH ×4 (09:26→20:57)
[2020-07-21 10:16] LABS: African American GFR (CKD) 115.6 (60.0-200.0); Anion Gap 10.3 mmol/L (4.00-12.00); BUN/Creat Ratio 21.67 Ratio (12.00-20.00); Calcium 8.2 mg/dL (8.7-10.3); Carbon Dioxide 28.7 mmol/L (21.6-31.8); Non-African American GFR(CKD) 99.7 (60.0-200.0); Potassium 3.7 mmol/L (3.5-5.5)
[2020-07-21 11:26] LABS: Glucose,Whole Blood 149 mg/dL (75-99)
--- NOTE | 2020-07-21 13:17 | P.PN ---
Subjective Progress Note Date: 07/21/20 Principal diagnosis: Acute on chronic dyspnea, related to chronic obstructive pulmonary disease, right forearm and right wrist cellulitis, no clear evidence of pneumonia On 07/17/2020 patient seen in follow-up on the general medical surgical floor, he is awake, he is resting comfortably in bed, he has chronic shortness of breath, currently his breathing seems to be comfortable, he is on 6 L of oxygen his pulse ox of 99%, hemodynamically patient is stable, he is afebrile. His chest x-ray on 07/13/2020 showed that scattered subpleural fibrosis, mild increased patchy density in the left lower lobe, we did not think this was related to underlying pneumonia. We added IV steroids, patient is receiving nebulized bronchodilators, and antibiotics in the form of Unasyn. His blood culture showed Acinetobacter Kayla, and follow blood culture is negative thus far. Brain CT was obtained in view of episodes of confusion, and revealed age- related changes and possible chronic small vessel ischemia, neurology is following, he is currently having EEG done. Denies any headaches, denies any numbness, no nausea or vomiting, no worsening shortness of breath or chest pain. Today's hemoglobin is 6.9, and and patient was transfused with 1 unit of packed red blood cells. No clear evidence of bleeding, GI service evaluation was requested. ID service is following, nephrology is following, patient is receiving wound care per wound care team. On 07/18/2020 patient seen in follow-up on the general medical surgical floor, he is drowsy, but arousable he remains on 4 L of oxygen a pulse ox of 96-98%, which dropped down the FiO2 down to 2 L, breathing comfortably, less dyspneic. Lung sounds reveal diminished sounds, with bibasilar crackles, no significant wheezes, looking probably switch the IV steroids to oral prednisone, he remains on nebulized bronchodilators, no significant cough or congestion, no convincing chest pain, today's chest x-ray has been reviewed showing low lung volumes, chronic bronchial fibrotic changes bilaterally, pulmonary vascular congestion. Today's labs have been reviewed. His hemoglobin is 7.3 with no obvious signs of bleeding, GI service is following, and patient is receiving iron infusions. He remains on Unasyn for evidence of Acinetobacter Baumanii in the blood cultures, follow blood culture has shown no growth thus far, ID service is following. Patient has been afebrile. On 07/19/2020 patient seen in follow-up on medical surgical floor, he is resting in bed, he is drowsy but easily arouses, isn't questions appropriately, he still gets short of breath with any exertion, but no acute distress at rest, she is on 4 L of oxygen. Pulse ox 97%, his vital signs have been stable, he is afebrile, he is on antibiotics for cellulitis and sepsis, and Acinetobacter Baumannii and the blood cultures. Service is following, he states his breathing still labored at times, is receiving breathing treatments, he is an Unasyn for antibiotics, yesterday's chest x-ray showed hypoventilatory lungs, and pulmonary vascular congestion, possibly related to low lung volumes. On 07/20/2020 patient seen in follow-up on general medical surgical floor, she is currently working with physical therapy, does become quite dyspneic with any exertion. He is awake and alert, he is on 4 L of oxygen his pulse ox of 93%, he is afebrile, hemodynamically patient stable. Denies any chest pain, denies any significant cough or congestion, lung sounds reveal diminished breath sounds with some scattered wheezes, patient is receiving breathing treatments, he remains on oral steroids. He is on antibiotics in the form of cefepime. ID service is following, patient is being treated for cellulitis involving his right upper extremity, and right lower extremity, and bacteremia related to Acinetobacter baumannii. On 07/21/2020 patient seen in follow-up on medical surgical floor, he is up in the recliner right now, appears to be very drowsy, confused, short of breath, he asked them he removed his oxygen, he is down to 79% on room air, he was placed back on oxygen, and 4 L and his pulse ox did come up to 92%, afebrile, hemodynamically patient is stable, patient is very dyspneic with any exertion, requires extensive assistance to get up in the recliner, his been working with physical therapy every day, vital signs have been stable, he is been nothing by mouth after midnight for EGD, lung sounds reveal very minimal wheezing, but equal air entry bilaterally. Patient remains on oral prednisone, and nebulized bronchodilators, he is on antibiotics per ID service recommendations for cellulitis and bacteremia related to Acinetobacter baumannii. Objective - Vital Signs Vital signs: Vital Signs Temp 98.3 F 07/21/20 07:00 Pulse 100 07/21/20 11:34 Resp 22 07/21/20 07:00 BP 132/80 07/21/20 07:00 Pulse Ox 94 L 07/21/20 07:00 Intake & Output 07/20/20 07/21/20 07/21/20 18:59 06:59 18:59 Intake Total 0 Balance 0 Weight 78.1 kg Intake: Oral 0 Other: Voiding Method Urinal Urinal Urinal Incontinent Incontinent Incontinent # Voids 3 4 - Exam GENERAL EXAM: 75-year-old male, drowsy currently at 4 L of oxygen pulse ox 97%, dyspneic, patient just continue working with physical therapy, to voice appears to be in no acute distress HEAD: Normocephalic/atraumatic. EYES: Normal reaction of pupils, equal size. Conjunctiva pink, sclera white. NOSE: Clear with pink turbinates. THROAT: No erythema or exudates. NECK: No masses, no JVD, no thyroid enlargement, no adenopathy. CHEST: No chest wall deformity. Symmetrical expansion. LUNGS: Diminished air entry with no crackles, wheeze, rhonchi or dullness. CVS: Regular rate and rhythm, normal S1 and S2, no gallops, no murmurs, no rubs ABDOMEN: Soft, nontender. No hepatosplenomegaly, normal bowel sounds, no guarding or rigidity. EXTREMITIES: No clubbing, no edema, no cyanosis, 2+ pulses and upper and lower extremities. Left [id number] amputation, right foot is wrapped, right arm is wrapped MUSCULOSKELETAL: Muscle strength and tone normal. SPINE: No scoliosis or deformity SKIN: No rashes CENTRAL NERVOUS SYSTEM: Drowsy, but arousable, confused, appears to be short of breath, she was off his oxygen, he was descending to 79 on room air, was placed back on oxygen, with improvement of his dyspnea. No focal deficits, tone is normal in all 4 extremities. - Labs CBC & Chem 7: 07/21/20 05:26 07/21/20 05:26 Labs: Abnormal Lab Results - Last 24 Hours (Table) 07/20/20 07/21/20 07/21/20 Range/Units 17:29 05:26 05:26 WBC 11.5 H (3.8-10.6) k/uL RBC 4.16 L (4.30-5.90) m/uL Hgb 8.8 L (13.0-17.5) gm/dL Hct 30.6 L (39.0-53.0) % MCV 73.6 L (80.0-100.0) fL MCH 21.2 L (25.0-35.0) pg MCHC 28.8 L (31.0-37.0) g/dL RDW 21.4 H (11.5-15.5) % Plt Count 583 H (150-450) k/uL Neutrophils # 9.5 H (1.3-7.7) k/uL BUN/Creatinine Ratio 21.67 H (12.00-20.00) Ratio POC Glucose (mg/dL) 161 H (75-99) mg/dL Calcium 8.2 L (8.7-10.3) mg/dL 07/21/20 07/21/20 Range/Units 07:35 11:18 WBC (3.8-10.6) k/uL RBC (4.30-5.90) m/uL Hgb (13.0-17.5) gm/dL Hct (39.0-53.0) % MCV (80.0-100.0) fL MCH (25.0-35.0) pg MCHC (31.0-37.0) g/dL RDW (11.5-15.5) % Plt Count (150-450) k/uL Neutrophils # (1.3-7.7) k/uL BUN/Creatinine Ratio (12.00-20.00) Ratio POC Glucose (mg/dL) 201 H 149 H (75-99) mg/dL Calcium (8.7-10.3) mg/dL Microbiology - Last 24 Hours (Table) 07/14/20 10:51 Blood Culture - Final Blood No Growth after 144 hours Assessment and Plan Plan: Assessment: #1. Dyspnea, acute on chronic, likely related to sepsis related to right upper extremity cellulitis, Acinetobacter baumanii. No clear evidence of pneumonia on chest x-ray #2. Altered mental status likely related to underlying metabolic encephalopathy, neurology services are following #3. Elevated troponin #4. Acinetobacter bacteremia #5. Severe anemia, patient was transfused with 1 unit of packed red blood cells, GI evaluation is requested #6. History of left occipital infarct #7. Type 2 diabetes mellitus #8. History of DVT/PE on Xarelto which is currently on hold for severe anemia #9. Chronic obstructive pulmonary disease, currently stable #10. Hyperlipidemia #11. Right foot wound patient is being seen at the wound Center #12. 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 Coronary artery disease and previous cardiac catheterization and stenting #14. History of pancreatitis #15. History of pericarditis Plan: Continue with oral prednisone, nebulized bronchodilators, patient is awaiting his EGD today, which gave the patient pulmonary clearance for his procedure today, his vital signs have been stable, overall prognosis is very guarded, and apparently patient has made comments about not wanting aggressive medical treatment, and it is probably appropriate to discuss possibility of palliative care with the patient. We'll defer to attending physician I performed a history & physical examination of the patient and discussed their management with my nurse practitioner, Yoselin Wiggins. I reviewed the nurse practitioner's note and agree with the documented findings and plan of care. Lung sounds are positive for diminished breath sounds. The findings and the impression was discussed with the patient. I attest to the documentation by the nurse practitioner. Time with Patient: Less than 30
[2020-07-21] MEDS ORDERED: IV FLUID CONTINUATION 1,000 ML IV ONE (13:28)
[2020-07-21] MEDS ORDERED: LIDOCAINE 1% INJ 10MG/ML (20 ML MDV) ONE (13:39)
[2020-07-21] MEDS ORDERED: MIDAZOLAM 2 MG/2 ML VIAL ONE (13:39)
[2020-07-21] MEDS ORDERED: PROPOFOL 10 MG/ML 20 ML VIAL IV ONE (13:39)
--- NOTE | 2020-07-21 14:10 | P.PCN ---
Date of Procedure: 07/21/20 Description of Procedure: BRIEF HISTORY: 75-year-old male with a medical history significant for coronary artery disease, diabetes mellitus, rheumatoid arthritis on prednisone therapy, COPD, history of PE on Xarelto, [id number] amputation who presented to the hospital with symptoms of confusion and fever.. Patient has been treated for bacteremia with a cecum of after and is being followed by the infectious disease service. He has right upper extremity swelling and redness with some weeping from the wound. Currently this is also being treated topically. The patient has previously been seen in the outpatient setting by gastroenterology for findings of a liver cyst likely benign in nature which was found during computed tomography scan performed in evaluation of back pain, with plan for repeat imaging in 6 months. GI was consulted to see the patient for findings of anemia and a hemoglobin which was decompressed from baseline. Patient has no history of colonoscopy in the past. He denies any history of peptic ulcer disease or acid reflux. He denies any signs or symptoms of GI bleeding. He has previously had an EGD in 2013 with findings of gastritis. He denies any excessive NSAID use. PROCEDURE PERFORMED: Esophagogastroduodenoscopy with biopsy. PREOPERATIVE DIAGNOSIS: Anemia. ESTIMATED BLOOD LOSS: Minimal. IV sedation per anesthesia. PROCEDURE: After informed consent was obtained, the patient was brought into the endoscopy unit. IV sedation was administered by Anesthesia under continuous monitoring. Initially the Olympus GIF-190 video endoscope was inserted into the mouth. Esophagus intubated without any difficulty. It was gradually advanced into the stomach and duodenum and carefully examined. The bulb and the second part of the duodenum appeared normal, with biopsies taken. The scope at this time was withdrawn to the stomach, adequately insufflated with air, and upon careful examination, mucosa of the antrum, body, cardia and the fundus appeared normal, except for some mild scattered erythema with appearance consistent with mild gastritis with biopsies of antrum and body taken. The scope was then withdrawn into the esophagus. The GE junction was located at 39 cm from the incisors. The esophagus appeared normal. There were no erosions or ulcerations seen and the patient tolerated the procedure well. IMPRESSION: 1. No active bleeding, old blood or pathology to explain anemia. 2. Mild Gastritis. 3. Biopsies taken of the antrum and body and duodenum. RECOMMENDATIONS: The findings of this examination were discussed with the patient and his . Okay to resume diet. Okay to resume anticoagulation therapy. Continue to monitor hemoglobin and hematocrit and transfuse as needed. Okay for discharge when otherwise medically stable. Patient in follow-up in the outpatient setting for consideration for colonoscopy if stable from a pulmonary standpoint.
[2020-07-21 16:43] LABS: Glucose,Whole Blood 123 mg/dL (75-99)
--- NOTE | 2020-07-21 18:22 | PN ---
PROGRESS NOTE DATE OF SERVICE: 07/21/2020 REASON FOR FOLLOWUP: Acinetobacter bacteremia, source likely right upper extremity cellulitis and a question of pneumonia. INTERVAL HISTORY: The patient is currently afebrile. He seems to have some problem with shortness of breath last night. This morning he was slightly comfortable, in no distress. No nausea, vomiting and no diarrhea reported. PHYSICAL EXAMINATION: Blood pressure 132/80 with a pulse of 100. Temperature 98.3. He is 94% on 4 L nasal cannula. General description is an elderly male lying in bed in no distress. Respiratory system: Unlabored breathing. Some coarse breath sounds at bases. No wheeze. Heart S1, S2. Regular rate and rhythm. Abdomen soft, no tenderness. LABS: Hemoglobin 8.8, white count 11.5, BUN of 13, creatinine 0.6. DIAGNOSTIC IMPRESSION AND PLAN: Patient with Acinetobacter bacteremia, source is multifactorial, likely with right upper extremity cellulitis and question of pneumonia. Patient is covered with cefepime to continue. Follow up blood cultures have been negative. at the bedside. Questions were answered. MMODL / IJN: [id number] /
--- NOTE | 2020-07-21 18:23 | P.PN ---
Subjective Progress Note Date: 07/21/20 Patient was seen at bedside in the morning and he said he feels about the same as yesterday. He is scheduled to get an EEG today. Objective - Vital Signs Vital signs: Vital Signs Temp 98.3 F 07/21/20 14:41 Pulse 96 07/21/20 16:12 Resp 22 07/21/20 14:41 BP 164/93 07/21/20 14:41 Pulse Ox 98 07/21/20 14:41 Intake & Output 07/20/20 07/21/20 07/21/20 18:59 06:59 18:59 Intake Total 0 700 Balance 0 700 Weight 78.1 kg Intake: IV 600 Intake, IV Titration 100 Amount Cefepime 2 gm In Sodium 100 Chloride 0.9% 100 ml @ 25 mls/hr IVPB Q8HR [facility] Rx# :[id number] Oral 0 Other: Voiding Method Urinal Urinal Urinal Incontinent Incontinent Incontinent # Voids 3 4 - Exam GENERAL: The patient is lying in bed and is not in acute distress. CHEST: The heart rate is regular rate rhythm. No murmurs to auscultation. LUNG: At rest the patient was not short of breath but on examination the patient became very short of breath. And there is no wheezing to auscultation throughout. He was tachypneic with examination. Patient was not in any labored breathing ABDOMEN/GI: Bowel sounds present in all 4 quadrants. No tenderness to palpation throughout. NEUROLOGICAL: Higher mental function: The patient is awake, alert, oriented to self, place and time. Patient is following commands. No aphasia and no neglect. Cranial nerves: The pupils are round, equal and reactive to light and accommodation. Visual bass are full to confrontation throughout. Extraocular movement is intact no nystagmus is noted. Facial sensation is normal to touch throughout. The facial strength is normal throughout. Hearing is normal bilaterally to hand rub. Tongue is midline and moved [id number] without any difficulty. No dysarthria is noted. Shoulder shrug is normal bilaterally. Motor: Gait is defered. He had some difficulty lifting left arms (stated this has been going on for 6 month and had rotator cuff) and had pain in shoulder area. His right digits 3-5th extension are 0-1 while wrist is 3 (chronic, he said he was told its due to Arthritis). Otherwise 5/5 throughout in bilateral upper extremities. Right lower extremity was able to lift without drift. Proximal right lower extremity 5/5 while distal was limited because patient became short of breath. Left proximal lower extremity is 5/5. Left lower extremity is amputated above knee. Cerebellum: Normal finger to nose bilaterally. Sensation: Sensation is normal to touch throughout. Reflexes (right/left): 2+ throughout bilateral upper extremities and not assessed lower extremities. Plantars: Not assessed since right lower extremity is wrapped while left there is amputation of extremity. - Labs CBC & Chem 7: 07/21/20 05:26 07/21/20 05:26 Labs: Abnormal Lab Results - Last 24 Hours (Table) 07/21/20 07/21/20 07/21/20 Range/Units 05:26 05:26 07:35 WBC 11.5 H (3.8-10.6) k/uL RBC 4.16 L (4.30-5.90) m/uL Hgb 8.8 L (13.0-17.5) gm/dL Hct 30.6 L (39.0-53.0) % MCV 73.6 L (80.0-100.0) fL MCH 21.2 L (25.0-35.0) pg MCHC 28.8 L (31.0-37.0) g/dL RDW 21.4 H (11.5-15.5) % Plt Count 583 H (150-450) k/uL Neutrophils # 9.5 H (1.3-7.7) k/uL BUN/Creatinine Ratio 21.67 H (12.00-20.00) Ratio POC Glucose (mg/dL) 201 H (75-99) mg/dL Calcium 8.2 L (8.7-10.3) mg/dL 07/21/20 07/21/20 Range/Units 11:18 16:42 WBC (3.8-10.6) k/uL RBC (4.30-5.90) m/uL Hgb (13.0-17.5) gm/dL Hct (39.0-53.0) % MCV (80.0-100.0) fL MCH (25.0-35.0) pg MCHC (31.0-37.0) g/dL RDW (11.5-15.5) % Plt Count (150-450) k/uL Neutrophils # (1.3-7.7) k/uL BUN/Creatinine Ratio (12.00-20.00) Ratio POC Glucose (mg/dL) 149 H 123 H (75-99) mg/dL Calcium (8.7-10.3) mg/dL Assessment and Plan Assessment: 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 I contacted the reading radiologist and he also felt was also right occipital as well. CT of the head on 07/15/2020 was done because of the patient transient global amnesia and the there is no change from previous image. Routine EEG (07/18/20): the background slowing suggestive of moderate encephalopathy of unspecified etiology. There is no focal slowing, epileptiform discharges or seizure during the study. Patient is on Xarelto 20 mg daily(home dose) added aspirin 81 mg daily. As a result of his anemia the patient Xarelto was held but the aspirin was continued. Continue Lipitor 40 mg daily. Carotid duplex: Was reported as there is antegrade flow in the right vertebral artery. Did not show flow in the left vertebral artery at. Exam was limited. Less than 20% stenosis in both internal carotid arteries. CT angiogram of the head and neck: No evidence of stenosis. 2-D echo was reported as left ventricle size is normal. There is mild concentric left ventricular hypertrophy. Ejection fraction of 50-55%. There is septal wall motion is delayed and consistent with conduction delay/bundle branch block. Mild tricuspid regurgitation is present. Cardiac monitoring. TSH: 0.562. Lipid panel: Triglyceride 66, cholesterol 87, LDL 32, HDL 42. Gastroenterology team are on board. Patient is scheduled to get EGD today. Once the patient the hemoglobin is stable recommend resuming Xarelto if primary team feels its the safe to do so. Regarding the patient right hand extensor/wrist and left shoulder( deltoid but limited because of the pain) weakness, therefore recommend outpatient EMG with nerve conduction study to rule out radiculopathy versus peripheral neuropathy. Regarding his peripheral vertigo continue meclizine to 12.5 mg twice a day and his symptoms improved. Regarding the patient anemia we'll defer that to the primary team. Upon discharge the patient needs to follow-up with a neurologist as an outp atient in 2-3 weeks. We'll follow up with the patient intermittently. Sb Tesfaye M.D. Neuro-hospitalist Time with Patient: Less than 30
[2020-07-21 20:34] LABS: Glucose,Whole Blood 110 mg/dL (75-99)
[2020-07-21] MEDS: ATORVASTATIN 40 MG TAB PO SCH (20:57)
[2020-07-21] MEDS: INSULIN DETEMIR (LEVEMIR) 100 UNIT/ML SYR SQ SCH (20:58)
--- NOTE | 2020-07-21 21:30 | P.PN ---
Subjective Progress Note Date: 07/21/20 Principal diagnosis: sepsis Pt remains tired and weak this morning. He is on 4 L O2, no dyspnea or confusion at rest. Pt scheduled for EGD today with GI, his Hgb has remained stable. Neurology planning on EEG today as well. Objective - Vital Signs Vital signs: Vital Signs Temp 98.3 F 07/21/20 14:41 Pulse 92 07/21/20 19:59 Resp 22 07/21/20 14:41 BP 164/93 07/21/20 14:41 Pulse Ox 98 07/21/20 14:41 Intake & Output 07/21/20 07/21/20 07/22/20 06:59 18:59 06:59 Intake Total 0 700 Balance 0 700 Intake: IV 600 Intake, IV Titration 100 Amount Cefepime 2 gm In Sodium 100 Chloride 0.9% 100 ml @ 25 mls/hr IVPB Q8HR [facility] Rx# :[id number] Oral 0 Other: Voiding Method Urinal Urinal Incontinent Incontinent # Voids 4 - Exam General: elderly male in NAD. Vitals reviewed Lungs: normal respiratory effort, no wheezes or rales. diminished breakth sounds CV: Regular rate and rhythm, no murmur. Peripheral pulses 2+ Abdomen: soft, nondistended, no organomegaly Skin: warm and dry. RUE minimal erythema Neuro: minimal confusion - Labs CBC & Chem 7: 07/21/20 05:26 07/21/20 05:26 Labs: Abnormal Lab Results - Last 24 Hours (Table) 07/21/20 07/21/20 07/21/20 Range/Units 05:26 05:26 07:35 WBC 11.5 H (3.8-10.6) k/uL RBC 4.16 L (4.30-5.90) m/uL Hgb 8.8 L (13.0-17.5) gm/dL Hct 30.6 L (39.0-53.0) % MCV 73.6 L (80.0-100.0) fL MCH 21.2 L (25.0-35.0) pg MCHC 28.8 L (31.0-37.0) g/dL RDW 21.4 H (11.5-15.5) % Plt Count 583 H (150-450) k/uL Neutrophils # 9.5 H (1.3-7.7) k/uL BUN/Creatinine Ratio 21.67 H (12.00-20.00) Ratio POC Glucose (mg/dL) 201 H (75-99) mg/dL Calcium 8.2 L (8.7-10.3) mg/dL 07/21/20 07/21/20 07/21/20 Range/Units 11:18 16:42 20:32 WBC (3.8-10.6) k/uL RBC (4.30-5.90) m/uL Hgb (13.0-17.5) gm/dL Hct (39.0-53.0) % MCV (80.0-100.0) fL MCH (25.0-35.0) pg MCHC (31.0-37.0) g/dL RDW (11.5-15.5) % Plt Count (150-450) k/uL Neutrophils # (1.3-7.7) k/uL BUN/Creatinine Ratio (12.00-20.00) Ratio POC Glucose (mg/dL) 149 H 123 H 110 H (75-99) mg/dL Calcium (8.7-10.3) mg/dL Assessment and Plan (1) Sepsis due to Gram negative bacteria Current Visit: Yes Status: Acute Code(s): A41.50 - GRAM-NEGATIVE SEPSIS, UNSPECIFIED SNOMED Code(s): 554966915 (2) Metabolic encephalopathy Current Visit: Yes Status: Acute Code(s): G93.41 - METABOLIC ENCEPHALOPATHY SNOMED Code(s): 21427663 (3) Cellulitis of right arm Current Visit: Yes Status: Acute Code(s): L03.113 - CELLULITIS OF RIGHT UPPER LIMB SNOMED Code(s): 981367273 (4) Elevated troponin Current Visit: Yes Status: Acute Code(s): R79.89 - OTHER SPECIFIED ABNORMAL FINDINGS OF BLOOD CHEMISTRY SNOMED Code(s): 102851960 (5) COPD (chronic obstructive pulmonary disease) Current Visit: No Status: Chronic Code(s): J44.9 - CHRONIC OBSTRUCTIVE PULMONARY DISEASE, UNSPECIFIED SNOMED Code(s): 90850729 (6) Rheumatoid arthritis Current Visit: No Status: Chronic Code(s): M06.9 - RHEUMATOID ARTHRITIS, UNSPECIFIED SNOMED Code(s): 71984263 Plan: Antibiotics switched to cefepime per ID. Pulmonary consulted for his COPD. Decrease prednisone and continue lisinopril. Continue to hold xarelto and closely monitor Hgb
[2020-07-22 07:02] LABS: Glucose,Whole Blood 50 mg/dL (75-99)
[2020-07-22 07:25] LABS: Glucose,Whole Blood 78 mg/dL (75-99)
[2020-07-22] MEDS: FORMOTEROL FUMARATE 20 MCG/2 ML NEBU INHALATION SCH ×2 (07:55→20:03)
[2020-07-22] MEDS: IPRATROPIUM-ALBUTEROL 3 ML NEB INHALATION SCH ×4 (07:55→20:03)
[2020-07-22] MEDS: BUDESONIDE 1 MG/2 ML NEBU INHALATION SCH ×2 (07:55→20:03)
[2020-07-22] MEDS: INSULIN ASPART (NovoLOG) 100 UNIT/ML VIAL SQ SCH ×4 (08:59→21:15)
[2020-07-22] MEDS: METOPROLOL TARTRATE 50 MG TAB PO SCH (10:05)
[2020-07-22] MEDS: lisinopriL 20 MG TAB PO SCH (10:05)
[2020-07-22] MEDS: PANTOPRAZOLE 40 MG TABLET PO SCH (10:05)
[2020-07-22] MEDS: GABAPENTIN 300 MG CAP PO SCH ×3 (10:06→21:17)
[2020-07-22] MEDS: ASPIRIN 81 MG PO SCH (10:06)
[2020-07-22] MEDS: oxyCODONE-APAP 10-325MG 1 EACH TAB PO PRN (10:06)
[2020-07-22] MEDS: CEFEPIME 2 GM in SODIUM CHLORIDE 0.9% 100 ML IVPB SCH ×2 (10:06→15:13)
[2020-07-22] MEDS: predniSONE 20 MG TAB PO SCH (10:08)
[2020-07-22] MEDS: MECLIZINE 12.5 MG TAB PO SCH ×2 (10:19→21:17)
[2020-07-22] MEDS: NYSTATIN 100,000 UNIT/ML SUSP 500,000 UNIT/5 ML CUP PO SCH ×4 (10:19→21:17)
[2020-07-22 11:20] LABS: Glucose,Whole Blood 82 mg/dL (75-99)
--- NOTE | 2020-07-22 12:23 | P.PN ---
Subjective Progress Note Date: 07/22/20 Principal diagnosis: Acute exacerbation of chronic obstructive pulmonary disease, right forearm and right wrist cellulitis On 07/17/2020 patient seen in follow-up on the general medical surgical floor, he is awake, he is resting comfortably in bed, he has chronic shortness of b reath, currently his breathing seems to be comfortable, he is on 6 L of oxygen his pulse ox of 99%, hemodynamically patient is stable, he is afebrile. His chest x-ray on 07/13/2020 showed that scattered subpleural fibrosis, mild increased patchy density in the left lower lobe, we did not think this was related to underlying pneumonia. We added IV steroids, patient is receiving nebulized bronchodilators, and antibiotics in the form of Unasyn. His blood culture showed Acinetobacter Kayla, and follow blood culture is negative thus far. Brain CT was obtained in view of episodes of confusion, and revealed age- related changes and possible chronic small vessel ischemia, neurology is following, he is currently having EEG done. Denies any headaches, denies any numbness, no nausea or vomiting, no worsening shortness of breath or chest pain. Today's hemoglobin is 6.9, and and patient was transfused with 1 unit of packed red blood cells. No clear evidence of bleeding, GI service evaluation was requested. ID service is following, nephrology is following, patient is receiving wound care per wound care team. On 07/18/2020 patient seen in follow-up on the general medical surgical floor, he is drowsy, but arousable he remains on 4 L of oxygen a pulse ox of 96-98%, which dropped down the FiO2 down to 2 L, breathing comfortably, less dyspneic. Lung sounds reveal diminished sounds, with bibasilar crackles, no significant wheezes, looking probably switch the IV steroids to oral prednisone, he remains on nebulized bronchodilators, no significant cough or congestion, no convincing chest pain, today's chest x-ray has been reviewed showing low lung volumes, chronic bronchial fibrotic changes bilaterally, pulmonary vascular congestion. Today's labs have been reviewed. His hemoglobin is 7.3 with no obvious signs of bleeding, GI service is following, and patient is receiving iron infusions. He remains on Unasyn for evidence of Acinetobacter Baumanii in the blood cultures, follow blood culture has shown no growth thus far, ID service is following. Patient has been afebrile. On 07/19/2020 patient seen in follow-up on medical surgical floor, he is resting in bed, he is drowsy but easily arouses, isn't questions appropriately, he still gets short of breath with any exertion, but no acute distress at rest, she is on 4 L of oxygen. Pulse ox 97%, his vital signs have been stable, he is afebrile, he is on antibiotics for cellulitis and sepsis, and Acinetobacter Baumannii and the blood cultures. Service is following, he states his breathing still labored at times, is receiving breathing treatments, he is an Unasyn for antibiotics, yesterday's chest x-ray showed hypoventilatory lungs, and pulmonary vascular congestion, possibly related to low lung volumes. On 07/20/2020 patient seen in follow-up on general medical surgical floor, she is currently working with physical therapy, does become quite dyspneic with any exertion. He is awake and alert, he is on 4 L of oxygen his pulse ox of 93%, he is afebrile, hemodynamically patient stable. Denies any chest pain, denies any significant cough or congestion, lung sounds reveal diminished breath sounds with some scattered wheezes, patient is receiving breathing treatments, he remains on oral steroids. He is on antibiotics in the form of cefepime. ID service is following, patient is being treated for cellulitis involving his right upper extremity, and right lower extremity, and bacteremia related to Acinetobacter baumannii. On 07/21/2020 patient seen in follow-up on medical surgical floor, he is up in the recliner right now, appears to be very drowsy, confused, short of breath, he asked them he removed his oxygen, he is down to 79% on room air, he was placed back on oxygen, and 4 L and his pulse ox did come up to 92%, afebrile, hemodynamically patient is stable, patient is very dyspneic with any exertion, requires extensive assistance to get up in the recliner, his been working with physical therapy every day, vital signs have been stable, he is been nothing by mouth after midnight for EGD, lung sounds reveal very minimal wheezing, but equal air entry bilaterally. Patient remains on oral prednisone, and nebulized bronchodilators, he is on antibiotics per ID service recommendations for cellu litis and bacteremia related to Acinetobacter baumannii. The patient is seen today 07/22/2020 in follow-up on the regular medical floor. He is currently resting comfortably in bed. Laying quite flat. He remained extremely weak and fatigued. Maintaining O2 saturations up to 100% on 4 L high flow nasal cannula. He's afebrile. He received 1 unit of packed red blood cells this admission. Current hemoglobin 8.8. He did undergo EGD which revealed no active bleeding. Blood cultures are positive for acinetobacter baumannii. Currently on cefepime. He remains on bronchodilators,, prednisone. Objective - Vital Signs Vital signs: Vital Signs Temp 98.4 F 07/22/20 07:00 Pulse 92 07/22/20 11:10 Resp 18 07/22/20 07:00 BP 127/74 07/22/20 07:00 Pulse Ox 100 07/22/20 07:00 Intake & Output 07/21/20 07/22/20 07/22/20 18:59 06:59 18:59 Intake Total 700 Output Total 250 Balance 700 -250 Intake: IV 600 Intake, IV Titration 100 Amount Cefepime 2 gm In Sodium 100 Chloride 0.9% 100 ml @ 25 mls/hr IVPB Q8HR [facility] Rx# :[id number] Output: Urine 250 Other: Voiding Method Urinal Urinal Urinal Incontinent Incontinent # Voids 2 # Bowel Movements 0 - Exam GENERAL EXAM: 75-year-old male, arousable, currently at 4 L of oxygen pulse ox 100%, appears to be in no acute distress HEAD: Normocephalic/atraumatic. EYES: Normal reaction of pupils, equal size. Conjunctiva pink, sclera white. NOSE: Clear with pink turbinates. THROAT: No erythema or exudates. NECK: No masses, no JVD, no thyroid enlargement, no adenopathy. CHEST: No chest wall deformity. Symmetrical expansion. LUNGS: Diminished air entry with no crackles, wheeze, rhonchi or dullness. CVS: Regular rate and rhythm, normal S1 and S2, no gallops, no murmurs, no rubs ABDOMEN: Soft, nontender. No hepatosplenomegaly, normal bowel sounds, no guarding or rigidity. EXTREMITIES: No clubbing, no edema, no cyanosis, 2+ pulses and upper and lower extremities. Left qkjfr-pvf-jzae amputation, right foot is wrapped, right arm is wrapped MUSCULOSKELETAL: Muscle strength and tone normal. SPINE: No scoliosis or deformity SKIN: No rashes CENTRAL NERVOUS SYSTEM: Drowsy, but arousable, confused, appears to be short of breath, she was off his oxygen, he was descending to 79 on room air, was placed back on oxygen, with improvement of his dyspnea. No focal deficits, tone is normal in all 4 extremities. - Labs CBC & Chem 7: 07/21/20 05:26 07/21/20 05:26 Labs: Abnormal Lab Results - Last 24 Hours (Table) 07/21/20 07/21/20 07/22/20 Range/Units 16:42 20:32 07:01 POC Glucose (mg/dL) 123 H 110 H 50 L (75-99) mg/dL Assessment and Plan Assessment: #1. Dyspnea, acute on chronic, likely related to sepsis related to right upper extremity cellulitis, Acinetobacter baumanii. No clear evidence of pneumonia on chest x-ray #2. Altered mental status likely related to underlying metabolic encephalopathy, neurology services are following #3. Elevated troponin #4. Acinetobacter bacteremia #5. Severe anemia, patient was transfused with 1 unit of packed red blood cells, EGD on 07/21/2020 did not reveal any evidence of active bleeding #6. History of left occipital infarct #7. Type 2 diabetes mellitus #8. History of DVT/PE on Xarelto which is currently on hold for severe anemia #9. Chronic obstructive pulmonary disease, currently stable #10. Hyperlipidemia #11. Right foot wound patient is being seen at the wound Center #12. 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 Coronary artery disease and previous cardiac catheterization and stenting #14. History of pancreatitis #15. History of pericarditis Plan: The patient was seen and evaluated by Dr. Manley Titrate down the FiO2 as tolerated Overall prognosis is quite poor and guarded Possible hospice/palliative care referral Social work/discharge planning involved Continue current treatment plan for now I, the cosigning physician, performed a history & physical examination of the patient. Lungs sounds are clear, diminished Maintaining good O2 saturations in the 90s on 4 L high flow nasal cannula. I discussed the assessment and plan of care with my nurse practitioner, Yvette Palacios. I attest to the above note as urvashi fiore by her.
[2020-07-22 16:31] LABS: Glucose,Whole Blood 84 mg/dL (75-99)
--- NOTE | 2020-07-22 16:49 | P.PN ---
Subjective On-call hospitalist covering for Dr. Steven starting 07/22 and 07/23, Dr. Steven will resume the care of the patient on 07/24 history of present complaint, from records This is a pleasant 75 years old male with past medical history of coronary a rtery disease, COPD, DVT venous thrombosis, hyperlipidemia, pneumonia, pulmonary embolism, rheumatoid arthritis right leg wound left AKA. Patient was admitted on 07/10/2024 confusion and altered mental status with fever of 102. With right arm swelling and pain. 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 Today patient was lying in bed comfortable, is fully awake and oriented, if his generally weak he has significant swelling and erythema of the whole right upper extremity, he can move his hand was some limitation, no open wound. Also he has one in the right foot with some purulent discharge on the dressing him however the base looks clean with some degree of swelling around it. He is slightly tachypneic Vitas looks stable, he is tachycardic 101-103. His saturating 97% on 6 L oxygen via nasal cannula. Fever on admission has been subsided Labs showing WBC of 16.5 K, hemoglobin 7.6. Platelet 311K. INR 1.0. Creatinine today 0.6, potassium 3.4, glucose 119. Elevated lactic acid 3.5 came back to normal 1.9. Elevated troponin 0.05-0.08 Blood culture is positive for acinobacter baumannii Chest x-ray showing scattered subpleural fibrosis with mild increased patchy density in the left lower lobe may reflect developing infiltrate. CT angio of the head and neck is negative. Carotid duplex: Showing only 20% stenosis in both carotid arteries. echocardiogram: Ejection fraction 50-55% left occipital infarct that's older subacute Currently patient is on Unasyn, aspirin 81 mg, statin, nystatin, Protonix, prednisone 40 mg daily, Xarelto, normal saline at 130 milliliters per hour 07/22/20 Patient is known to me when I saw him on 07/13 when I was covering for Dr. Steven as well. At that time he was more awake and alert, today when I saw the patient is still awake but he go back to sleep right away, easy to arouse. No specific complaint and his right upper extremity swelling is significantly improved. Denied chest pain or dyspnea or abdominal pain. However patient has low appetite and has not been eating for 2 days. daughter was at bedside and she was adamant take her father home today even if she had decided he may, however PICC line could not be placed over the weekend as it is not available. Patient with positive blood culture and he will need IV antibiotics upon discharge as per ID team recommendation, for this incision patient was not stable and cleared medically for discharge, and informed the patient and her daughter at bedside and they were understanding Also patient is found closely by hematology/oncology team and by pulmonary services as well. Upon the recommendation patient is with poor prognosis, and I informed the daughter patient blood pressure 161/90, oxygen saturation is 93% on 4 L oxygen via nasal cannula he still has mild leukocytosis of 11 K, hemoglobin 8.8 and BMP is unremarkable. he underwent EGD yesterday showing mild gastritis, colonoscopy is recommended as an outpatient, patient and daughter informed Objective - Vital Signs Vital signs: Vital Signs Temp 98.3 F 07/22/20 14:38 Pulse 67 07/22/20 14:38 Resp 18 07/22/20 14:38 BP 161/90 07/22/20 14:38 Pulse Ox 93 L 07/22/20 14:38 Intake & Output 07/21/20 07/22/20 07/22/20 18:59 06:59 18:59 Intake Total 700 Output Total 250 900 Balance 700 -250 -900 Intake: IV 600 Intake, IV Titration 100 Amount Cefepime 2 gm In Sodium 100 Chloride 0.9% 100 ml @ 25 mls/hr IVPB Q8HR [facility] Rx# :[id number] Output: Urine 250 900 Other: Voiding Method Urinal Urinal Urinal Incontinent Incontinent # Voids 2 # Bowel Movements 0 - Exam GENERAL: The patient is alert and oriented x3, not in any acute distress. Well developed, well nourished. HEENT: Pupils are round and equally reacting to light. EOMI. No scleral icterus. No conjunctival pallor. Normocephalic, atraumatic. No pharyngeal erythema. No thyromegaly. CARDIOVASCULAR: S1 and S2 present. No murmurs, rubs, or gallops. PULMONARY: Chest is clear to auscultation, no wheezing or crackles. ABDOMEN: Soft, nontender, nondistended, normoactive bowel sounds. No palpable organomegaly. MUSCULOSKELETAL: No joint swelling or deformity. -EXTREMITIES: No cyanosis, clubbing, or pedal edema. significantly improved Right upper extremity swelling, right foot wound with some purulent discharge, dressing is in place. Patient status post left AKA NEUROLOGICAL: Gross neurological examination did not reveal any focal deficits. SKIN: No rashes. no petechiae. - Labs CBC & Chem 7: 07/21/20 05:26 07/21/20 05:26 Labs: Abnormal Lab Results - Last 24 Hours (Table) 07/21/20 07/21/20 07/22/20 Range/Units 16:42 20:32 07:01 POC Glucose (mg/dL) 123 H 110 H 50 L (75-99) mg/dL Assessment and Plan Assessment: Right upper extremity cellulitis with sepsis Positive blood culture, mostly secondary to above Altered mental status possible metabolic encephalopathy inability to eat, probably secondary to above elevated troponin less likely pneumonia, most likely has tachypnea secondary to sepsis severe anemia, improved Old 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 Patient is followed by several consultants including neurology, cardiology. continue with cefepime antibiotics as per ID team recommendation. Follow-up on patient closely, monitor patient able to eat Labs and medication were reviewed.. Continue same treatment. Continue with symptomatic treatment. Resume home medication. Monitor lytes and vitals. DVT and GI prophylaxis. Further recommendationsas per clinical course of the patient DVT prophylaxis: Xarelto GI Prophylaxis: Ppi Prognosis is guarded and poor, also as per other consultants plan of care is discussed with daughter and she verbalized understanding and acceptance. daughter Emilia at bedside Wanted to take the patient home even AMA however because of PICC line could not be provided over the weekend she agrees to stay currently
[2020-07-22 20:11] LABS: Glucose,Whole Blood 93 mg/dL (75-99)
--- NOTE | 2020-07-22 20:28 | PN ---
PROGRESS NOTE DATE OF SERVICE: 07/22/2020 REASON FOR FOLLOWUP: Acinetobacter bacteremia source likely right upper extremity cellulitis and question of pneumonia. INTERVAL HISTORY: The patient is afebrile. The patient noted to be slightly sleepy and lethargic today. Apparently the patient did have per the daughter at the bedside. No vomiting or diarrhea has been reported. PHYSICAL EXAMINATION: Blood pressure 160/90 with a pulse of 90, temperature 98.3. He is 93% on 4 L nasal cannula. General description: The patient is an elderly male lying in bed in no distress. Respiratory system: Unlabored breathing, decreased breath sounds in the base, with no wheeze. Heart S1, S2. Regular rate and rhythm. ABDOMEN: Soft, no tenderness. LABS: No new labs have been obtained today. Blood culture repeat has been negative. DIAGNOSTIC IMPRESSION AND PLAN: Patient with Acinetobacter bacteremia source likely right upper extremity cellulitis and question of pneumonia. Patient's follow up blood cultures have been negative. Right upper extremity cellulitis has resolved. He is currently waiting for a PICC line and continuation of IV antibiotic for another 7-10 days and close outpatient followup. Daughter at the bedside. Questions answered. MMODL / IJN: [id number] /
[2020-07-22] MEDS: INSULIN DETEMIR (LEVEMIR) 100 UNIT/ML SYR SQ SCH (21:15)
[2020-07-22] MEDS: ATORVASTATIN 40 MG TAB PO SCH (21:17)
[2020-07-22] MEDS: PANTOPRAZOLE 40 MG/10 ML VIAL IVP SCH (21:17)
[2020-07-22] MEDS ORDERED: DEXTROSE 5%-0.45% NACL 1,000 ML IV SCH (22:15)
[2020-07-22] MEDS ORDERED: MECLIZINE 25 MG TAB PO PRN (22:16)
[2020-07-23] MEDS: CEFEPIME 2 GM in SODIUM CHLORIDE 0.9% 100 ML IVPB SCH ×4 (00:52→23:46)
[2020-07-23] MEDS: oxyCODONE-APAP 10-325MG 1 EACH TAB PO PRN ×2 (00:54→13:14)
[2020-07-23 06:44] LABS: Anisocytosis Moderate; Basophils % (A) 0 %; Eosinophils # (A) 0.1 k/uL (0-0.7); Eosinophils % (A) 1 %; HCT 29.6 % (39.0-53.0); HGB 8.6 gm/dL (13.0-17.5); Hypochromasia Marked; Lymphocytes # (A) 1.3 k/uL (1.0-4.8); Lymphocytes % (A) 17 %; MCH 21.5 pg (25.0-35.0); MCV 74.3 fL (80.0-100.0); Mean Platelet Volume 7.9; Microcytosis Marked; Monocytes # (A) 0.2 k/uL (0-1.0); Monocytes % (A) 3 %; Neutrophils # (A) 5.6 k/uL (1.3-7.7); Neutrophils % (A) 77 %; Platelet Count 566 k/uL (150-450); Poikilocytosis Slight; RBC 3.98 m/uL (4.30-5.90); RDW 22.8 % (11.5-15.5); WBC 7.3 k/uL (3.8-10.6)
[2020-07-23 07:14] LABS: Glucose,Whole Blood 82 mg/dL (75-99)
[2020-07-23] MEDS: BUDESONIDE 1 MG/2 ML NEBU INHALATION SCH ×2 (07:28→18:40)
[2020-07-23] MEDS: FORMOTEROL FUMARATE 20 MCG/2 ML NEBU INHALATION SCH ×2 (07:28→18:51)
[2020-07-23] MEDS: IPRATROPIUM-ALBUTEROL 3 ML NEB INHALATION SCH ×4 (07:28→18:40)
[2020-07-23] MEDS: INSULIN ASPART (NovoLOG) 100 UNIT/ML VIAL SQ SCH ×4 (07:31→20:57)
[2020-07-23] MEDS ORDERED: GABAPENTIN 300 MG CAP PO SCH (09:00)
[2020-07-23] MEDS: METOPROLOL TARTRATE 50 MG TAB PO SCH ×2 (09:53→09:54)
[2020-07-23] MEDS: ASPIRIN 81 MG PO SCH (09:54)
[2020-07-23] MEDS: predniSONE 20 MG TAB PO SCH (09:54)
[2020-07-23] MEDS: lisinopriL 20 MG TAB PO SCH (09:54)
[2020-07-23 09:56] LABS: African American GFR (CKD) 108.5 (60.0-200.0); Anion Gap 8.9 mmol/L (4.00-12.00); BUN/Creat Ratio 18.57 Ratio (12.00-20.00); Calcium 7.7 mg/dL (8.7-10.3); Carbon Dioxide 25.1 mmol/L (21.6-31.8); Non-African American GFR(CKD) 93.6 (60.0-200.0); Potassium 3.8 mmol/L (3.5-5.5)
[2020-07-23] MEDS: NYSTATIN 100,000 UNIT/ML SUSP 500,000 UNIT/5 ML CUP PO SCH ×4 (09:57→20:40)
[2020-07-23] MEDS: PANTOPRAZOLE 40 MG/10 ML VIAL IVP SCH ×2 (09:57→20:40)
[2020-07-23] MEDS: GABAPENTIN 100 MG CAP PO SCH ×3 (10:02→20:40)
--- NOTE | 2020-07-23 11:48 | P.PN ---
Subjective Progress Note Date: 07/23/20 Principal diagnosis: Acute exacerbation of chronic obstructive pulmonary disease, right forearm and right wrist cellulitis On 07/17/2020 patient seen in follow-up on the general medical surgical floor, he is awake, he is resting comfortably in bed, he has chronic shortness of b reath, currently his breathing seems to be comfortable, he is on 6 L of oxygen his pulse ox of 99%, hemodynamically patient is stable, he is afebrile. His chest x-ray on 07/13/2020 showed that scattered subpleural fibrosis, mild increased patchy density in the left lower lobe, we did not think this was related to underlying pneumonia. We added IV steroids, patient is receiving nebulized bronchodilators, and antibiotics in the form of Unasyn. His blood culture showed Acinetobacter Kayla, and follow blood culture is negative thus far. Brain CT was obtained in view of episodes of confusion, and revealed age- related changes and possible chronic small vessel ischemia, neurology is following, he is currently having EEG done. Denies any headaches, denies any numbness, no nausea or vomiting, no worsening shortness of breath or chest pain. Today's hemoglobin is 6.9, and and patient was transfused with 1 unit of packed red blood cells. No clear evidence of bleeding, GI service evaluation was requested. ID service is following, nephrology is following, patient is receiving wound care per wound care team. On 07/18/2020 patient seen in follow-up on the general medical surgical floor, he is drowsy, but arousable he remains on 4 L of oxygen a pulse ox of 96-98%, which dropped down the FiO2 down to 2 L, breathing comfortably, less dyspneic. Lung sounds reveal diminished sounds, with bibasilar crackles, no significant wheezes, looking probably switch the IV steroids to oral prednisone, he remains on nebulized bronchodilators, no significant cough or congestion, no convincing chest pain, today's chest x-ray has been reviewed showing low lung volumes, chronic bronchial fibrotic changes bilaterally, pulmonary vascular congestion. Today's labs have been reviewed. His hemoglobin is 7.3 with no obvious signs of bleeding, GI service is following, and patient is receiving iron infusions. He remains on Unasyn for evidence of Acinetobacter Baumanii in the blood cultures, follow blood culture has shown no growth thus far, ID service is following. Patient has been afebrile. On 07/19/2020 patient seen in follow-up on medical surgical floor, he is resting in bed, he is drowsy but easily arouses, isn't questions appropriately, he still gets short of breath with any exertion, but no acute distress at rest, she is on 4 L of oxygen. Pulse ox 97%, his vital signs have been stable, he is afebrile, he is on antibiotics for cellulitis and sepsis, and Acinetobacter Baumannii and the blood cultures. Service is following, he states his breathing still labored at times, is receiving breathing treatments, he is an Unasyn for antibiotics, yesterday's chest x-ray showed hypoventilatory lungs, and pulmonary vascular congestion, possibly related to low lung volumes. On 07/20/2020 patient seen in follow-up on general medical surgical floor, she is currently working with physical therapy, does become quite dyspneic with any exertion. He is awake and alert, he is on 4 L of oxygen his pulse ox of 93%, he is afebrile, hemodynamically patient stable. Denies any chest pain, denies any significant cough or congestion, lung sounds reveal diminished breath sounds with some scattered wheezes, patient is receiving breathing treatments, he remains on oral steroids. He is on antibiotics in the form of cefepime. ID service is following, patient is being treated for cellulitis involving his right upper extremity, and right lower extremity, and bacteremia related to Acinetobacter baumannii. On 07/21/2020 patient seen in follow-up on medical surgical floor, he is up in the recliner right now, appears to be very drowsy, confused, short of breath, he asked them he removed his oxygen, he is down to 79% on room air, he was placed back on oxygen, and 4 L and his pulse ox did come up to 92%, afebrile, hemodynamically patient is stable, patient is very dyspneic with any exertion, requires extensive assistance to get up in the recliner, his been working with physical therapy every day, vital signs have been stable, he is been nothing by mouth after midnight for EGD, lung sounds reveal very minimal wheezing, but equal air entry bilaterally. Patient remains on oral prednisone, and nebulized bronchodilators, he is on antibiotics per ID service recommendations for cellu litis and bacteremia related to Acinetobacter baumannii. The patient is seen today 07/22/2020 in follow-up on the regular medical floor. He is currently resting comfortably in bed. Laying quite flat. He remained extremely weak and fatigued. Maintaining O2 saturations up to 100% on 4 L high flow nasal cannula. He's afebrile. He received 1 unit of packed red blood cells this admission. Current hemoglobin 8.8. He did undergo EGD which revealed no active bleeding. Blood cultures are positive for acinetobacter baumannii. Currently on cefepime. He remains on bronchodilators,, prednisone. The patient is seen today 07/23/2020 in follow-up on the regular medical floor. His been more awake and alert today compared to yesterday. Maintaining O2 saturations in the mid 90s on 4 L high flow nasal cannula. He is afebrile. Initial blood culture positive for Acinetobacter Baumannii, follow-up blood cultures negative. He is status post 1 unit of packed red blood cells this admission. Current hemoglobin 8.6. White count 7.3. Sodium 135. Potassium 3.8. Creatinine 0.7. He remains on cefepime. Continued on DuoNeb inhalations, Pulmicort and Perforomist inhalations, prednisone. Objective - Vital Signs Vital signs: Vital Signs Temp 98 F 07/23/20 07:00 Pulse 92 07/23/20 11:33 Resp 16 07/23/20 07:00 BP 152/91 07/23/20 07:00 Pulse Ox 95 07/23/20 07:00 Intake & Output 07/22/20 07/23/20 07/23/20 18:59 06:59 18:59 Intake Total 600 Output Total 900 300 Balance -900 300 Intake: Intake, IV Titration 400 Amount Cefepime 2 gm In Sodium 100 Chloride 0.9% 100 ml @ 25 mls/hr IVPB Q8HR [facility] Rx# :[id number] Dextrose 5%-0.45% NaCl 1, 300 000 ml @ 50 mls/hr IV . Q20H [facility] Rx#:[id number] Oral 200 Output: Urine 900 300 Other: Voiding Method Urinal Urinal Diaper Diaper # Voids 1 # Bowel Movements 1 - Exam GENERAL EXAM: 75-year-old male, alert today, currently at 4 L of oxygen pulse ox 95%, appears to be in no acute distress HEAD: Normocephalic/atraumatic. EYES: Normal reaction of pupils, equal size. Conjunctiva pink, sclera white. NOSE: Clear with pink turbinates. THROAT: No erythema or exudates. NECK: No masses, no JVD, no thyroid enlargement, no adenopathy. CHEST: No chest wall deformity. Symmetrical expansion. LUNGS: Diminished air entry with bilateral end expiratory wheeze, few scattered rhonchi. CVS: Regular rate and rhythm, normal S1 and S2, no gallops, no murmurs, no rubs ABDOMEN: Soft, nontender. No hepatosplenomegaly, normal bowel sounds, no guarding or rigidity. EXTREMITIES: No clubbing, no edema, no cyanosis, 2+ pulses and upper and lower extremities. Left [id number] amputation, right foot is wrapped, right arm is wrapped MUSCULOSKELETAL: Muscle strength and tone normal. SPINE: No scoliosis or deformity SKIN: No rashes CENTRAL NERVOUS SYSTEM: Alert, confused, appears to be short of breath. No focal deficits, tone is normal in all 4 extremities. - Labs CBC & Chem 7: 07/23/20 05:50 07/23/20 05:50 Labs: Abnormal Lab Results - Last 24 Hours (Table) 07/23/20 07/23/20 Range/Units 05:50 05:50 RBC 3.98 L (4.30-5.90) m/uL Hgb 8.6 L (13.0-17.5) gm/dL Hct 29.6 L (39.0-53.0) % MCV 74.3 L (80.0-100.0) fL MCH 21.5 L (25.0-35.0) pg MCHC 29.0 L (31.0-37.0) g/dL RDW 22.8 H (11.5-15.5) % Plt Count 566 H (150-450) k/uL Glucose 62 L (70-110) mg/dL Calcium 7.7 L (8.7-10.3) mg/dL Assessment and Plan Assessment: #1. Dyspnea, acute on chronic, likely related to sepsis related to right upper extremity cellulitis, Acinetobacter baumanii. Follow-up blood cultures reveal no growth. Remains on cefepime. No clear evidence of pneumonia on chest x-ray #2. Altered mental status likely related to underlying metabolic encephalopathy, neurology services are following #3. Elevated troponin #4. Acinetobacter bacteremia #5. Severe anemia, patient was transfused with 1 unit of packed red blood cells, EGD on 07/21/2020 did not reveal any evidence of active bleeding #6. History of left occipital infarct #7. Type 2 diabetes mellitus #8. History of DVT/PE on Xarelto which is currently on hold for severe anemia #9. Chronic obstructive pulmonary disease, currently stable #10. Hyperlipidemia #11. Right foot wound patient is being seen at the wound Center #12. 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 Coronary artery disease and previous cardiac catheterization and stenting #14. History of pancreatitis #15. History of pericarditis Plan: The patient was seen and evaluated by Dr. Manley Continue bronchodilators, prednisone Titrate down the FiO2 as tolerated Overall prognosis is quite poor and guarded Social work/discharge planning involved Continue current treatment plan for now I, the cosigning physician, performed a history & physical examination of the patient. Lungs sounds with bilateral end extremity wheeze, few scattered rhonchi, diminished Maintaining good O2 saturations in the 90s on 4 L high flow nasal cannula. I discussed the assessment and plan of care with my nurse practitioner, Yvette Palacios. I attest to the above note as dictated by her.
[2020-07-23 11:52] LABS: Glucose,Whole Blood 110 mg/dL (75-99)
[2020-07-23 16:46] LABS: Glucose,Whole Blood 245 mg/dL (75-99)
[2020-07-23] MEDS: ATORVASTATIN 40 MG TAB PO SCH (20:40)
[2020-07-23 20:45] LABS: Glucose,Whole Blood 184 mg/dL (75-99)
[2020-07-23] MEDS ORDERED: INSULIN DETEMIR (LEVEMIR) 100 UNIT/ML SYR SQ SCH (21:00)
--- NOTE | 2020-07-23 23:20 | P.PN ---
Subjective On-call hospitalist covering for Dr. Steven starting 07/22 and 07/23, Dr. Steven will resume the care of the patient on 07/24 history of present complaint, from records This is a pleasant 75 years old male with past medical history of coronary a rtery disease, COPD, DVT venous thrombosis, hyperlipidemia, pneumonia, pulmonary embolism, rheumatoid arthritis right leg wound left AKA. Patient was admitted on 07/10/2024 confusion and altered mental status with fever of 102. With right arm swelling and pain. His been evaluated by neurologist and developer programmer analyst while in-house. Today patient was lying in bed comfortable, is fully awake and oriented, if his generally weak he has significant swelling and erythema of the whole right upper extremity, he can move his hand was some limitation, no open wound. Also he has one in the right foot with some purulent discharge on the dressing him however the base looks clean with some degree of swelling around it. He is slightly tachypneic Vitas looks stable, he is tachycardic 101-103. His saturating 97% on 6 L oxygen via nasal cannula. Fever on admission has been subsided Labs showing WBC of 16.5 K, hemoglobin 7.6. Platelet 311K. INR 1.0. Creatinine today 0.6, potassium 3.4, glucose 119. Elevated lactic acid 3.5 came back to normal 1.9. Elevated troponin 0.05-0.08 Blood culture is positive for acinobacter baumannii Chest x-ray showing scattered subpleural fibrosis with mild increased patchy density in the left lower lobe may reflect developing infiltrate. CT angio of the head and neck is negative. Carotid duplex: Showing only 20% stenosis in both carotid arteries. echocardiogram: Ejection fraction 50-55% left occipital infarct that's older subacute Currently patient is on Unasyn, aspirin 81 mg, statin, nystatin, Protonix, prednisone 40 mg daily, Xarelto, normal saline at 130 milliliters per hour 07/22/20 Patient is known to me when I saw him on 07/13 when I was covering for Dr. Steven as well. At that time he was more awake and alert, today when I saw the patient is still awake but he go back to sleep right away, easy to arouse. No specific complaint and his right upper extremity swelling is significantly improved. Denied chest pain or dyspnea or abdominal pain. However patient has low appetite and has not been eating for 2 days. daughter was at bedside and she was adamant take her father home today even if she had decided he may, however PICC line could not be placed over the weekend as it is not available. Patient with positive blood culture and he will need IV antibiotics upon discharge as per ID team recommendation, for this incision patient was not stable and cleared medically for discharge, and informed the patient and her daughter at bedside and they were understanding Also patient is found closely by hematology/oncology team and by pulmonary services as well. Upon the recommendation patient is with poor prognosis, and I informed the daughter patient blood pressure 161/90, oxygen saturation is 93% on 4 L oxygen via nasal cannula he still has mild leukocytosis of 11 K, hemoglobin 8.8 and BMP is unremarkable. he underwent EGD yesterday showing mild gastritis, colonoscopy is recommended as an outpatient, patient and daughter informed 07/23/2020 Patient is more alert and awake today compared to yesterday, no more drowsiness noted today. Son was at bedside. Patient denies any specific complaint, no chest pain or dyspnea or abdominal pain, his right arm swelling is significantly improved He is hemodynamically stable. Labs including CBC and BMP are reviewed and looks stable. Hemoglobin is 8.6. Compared to 8.8 yesterday. Levemir insulin was held yesterday was discontinued today for hypoglycemia. Sugar is better today. Hemoglobin A1c is 6.3%. Patient also on prednisone 30 mg daily Patient remains on cefepime and ID team on the case with plan for PICC line tomorrow He is status post EGD showed gastritis, he was on Xarelto 20 mg daily at home which is on hold now. We recommend resuming Xarelto after placing PICC line tomorrow and after approval of GI team to restart anticoagulation. Continue with Protonix twice a day. Patient still has poor appetite Several consultants on the case including pulmonary, ID, GI and neurology I discussed the plan with the patient and son at bedside and all their questions were answered and they agree with the current plan Long-term prognosis is guarded Objective - Vital Signs Vital signs: Vital Signs Temp 99.4 F 07/23/20 15:00 Pulse 90 07/23/20 18:52 Resp 18 07/23/20 18:52 BP 146/84 07/23/20 15:00 Pulse Ox 95 07/23/20 15:28 Intake & Output 07/23/20 07/23/20 07/24/20 06:59 18:59 06:59 Intake Total 600 Output Total 300 Balance 300 Intake: Intake, IV Titration 400 Amount Cefepime 2 gm In Sodium 100 Chloride 0.9% 100 ml @ 25 mls/hr IVPB Q8HR SURYA Rx# :[id number] Dextrose 5%-0.45% NaCl 1, 300 000 ml @ 50 mls/hr IV . Q20H SURYA Rx#:[id number] Oral 200 Output: Urine 300 Other: Voiding Method Urinal Diaper # Voids 1 # Bowel Movements 1 - Exam GENERAL: The patient is alert and oriented x3, not in any acute distress. Well developed, well nourished. HEENT: Pupils are round and equally reacting to light. EOMI. No scleral icterus. No conjunctival pallor. Normocephalic, atraumatic. No pharyngeal erythema. No thyromegaly. CARDIOVASCULAR: S1 and S2 present. No murmurs, rubs, or gallops. PULMONARY: Chest is clear to auscultation, no wheezing or crackles. ABDOMEN: Soft, nontender, nondistended, normoactive bowel sounds. No palpable organomegaly. MUSCULOSKELETAL: No joint swelling or deformity. -EXTREMITIES: No cyanosis, clubbing, or pedal edema. significantly improved Right upper extremity swelling, right foot wound with some purulent discharge, dressing is in place. Patient status post left AKA NEUROLOGICAL: Gross neurological examination did not reveal any focal deficits. SKIN: No rashes. no petechiae. - Labs CBC & Chem 7: 07/23/20 05:50 07/23/20 05:50 Labs: Abnormal Lab Results - Last 24 Hours (Table) 07/23/20 07/23/20 07/23/20 Range/Units 05:50 05:50 11:42 RBC 3.98 L (4.30-5.90) m/uL Hgb 8.6 L (13.0-17.5) gm/dL Hct 29.6 L (39.0-53.0) % MCV 74.3 L (80.0-100.0) fL MCH 21.5 L (25.0-35.0) pg MCHC 29.0 L (31.0-37.0) g/dL RDW 22.8 H (11.5-15.5) % Plt Count 566 H (150-450) k/uL Glucose 62 L (70-110) mg/dL POC Glucose (mg/dL) 110 H (75-99) mg/dL Calcium 7.7 L (8.7-10.3) mg/dL 07/23/20 Range/Units 16:40 RBC (4.30-5.90) m/uL Hgb (13.0-17.5) gm/dL Hct (39.0-53.0) % MCV (80.0-100.0) fL MCH (25.0-35.0) pg MCHC (31.0-37.0) g/dL RDW (11.5-15.5) % Plt Count (150-450) k/uL Glucose (70-110) mg/dL POC Glucose (mg/dL) 245 H (75-99) mg/dL Calcium (8.7-10.3) mg/dL Assessment and Plan Assessment: Right upper extremity cellulitis with sepsis Positive blood culture, mostly secondary to above Altered mental status possible metabolic encephalopathy. Improved inability to eat, probably secondary to above elevated troponin less likely pneumonia, most likely has tachypnea secondary to sepsis severe anemia, improved Old 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 Patient is followed by several consultants including neurology, cardiology. continue with cefepime antibiotics as per ID team recommendation. Follow-up on patient closely, monitor patient able to eat Labs and medication were reviewed.. Continue same treatment. Continue with symptomatic treatment. Resume home medication. Monitor lytes and vitals. DVT and GI prophylaxis. Further recommendationsas per clinical course of the patient We recommend resuming anticoagulation after PICC line placement and GI approval DVT prophylaxis: Xarelto, on hold GI Prophylaxis: Ppi Prognosis is guarded and poor, also as per other consultants plan of care is discussed with son and she verbalized understanding and acceptance. Dr. Steven team resume the care of the patient tomorrow
--- NOTE | 2020-07-24 02:12 | PN ---
PROGRESS NOTE DATE OF SERVICE: 07/23/2020 REASON FOR FOLLOWUP: Acinetobacter bacteremia source likely upper extremity cellulitis and question of pneumonia. INTERVAL HISTORY: The patient is currently afebrile. The patient is hemodynamically stable. The patient remains to be slightly lethargic. Patient denies chest pain or cough. He has had no nausea, no vomiting. No abdominal pain or diarrhea. PHYSICAL EXAMINATION: Blood pressure 104/65 with a pulse of 88, temperature 98.7. General description is an elderly male lying in bed in no distress. RESPIRATORY SYSTEM: Unlabored breathing, decreased breath sounds at the bases. No wheeze. HEART: S1, S2. Regular rate and rhythm. ABDOMEN: Soft no tenderness. Right lower extremity redness and swelling has resolved. LABS: Hemoglobin 8.6, white count 7.3, BUN of 13, creatinine 0.7. DIAGNOSTIC IMPRESSION AND PLAN: Patient with Acinetobacter baumannii bacteremia followup blood culture has been negative. The patient received almost 10 days of antibiotics, may continue cefepime for about a week for which a Midline can be placed and close outpatient followup. MMODL / IJN: [id number] / MTDKristina
[2020-07-24 07:35] LABS: Glucose,Whole Blood 106 mg/dL (75-99)
[2020-07-24] MEDS: INSULIN ASPART (NovoLOG) 100 UNIT/ML VIAL SQ SCH ×2 (07:45→11:35)
[2020-07-24 08:28] VITALS: BP 138/79; RESP 22; TEMP 98.6
[2020-07-24] MEDS: CEFEPIME 2 GM in SODIUM CHLORIDE 0.9% 100 ML IVPB SCH ×2 (08:51→14:54)
[2020-07-24] MEDS: predniSONE 20 MG TAB PO SCH (08:51)
[2020-07-24] MEDS: PANTOPRAZOLE 40 MG/10 ML VIAL IVP SCH (08:51)
[2020-07-24] MEDS: ASPIRIN 81 MG PO SCH (08:52)
[2020-07-24] MEDS: lisinopriL 20 MG TAB PO SCH (08:53)
[2020-07-24] MEDS: GABAPENTIN 100 MG CAP PO SCH ×2 (08:53→15:01)
[2020-07-24] MEDS: METOPROLOL TARTRATE 50 MG TAB PO SCH (08:58)
[2020-07-24] MEDS: BUDESONIDE 1 MG/2 ML NEBU INHALATION SCH (09:02)
[2020-07-24] MEDS: IPRATROPIUM-ALBUTEROL 3 ML NEB INHALATION SCH ×2 (09:02→12:03)
[2020-07-24] MEDS: FORMOTEROL FUMARATE 20 MCG/2 ML NEBU INHALATION SCH (09:02)
[2020-07-24] MEDS: NYSTATIN 100,000 UNIT/ML SUSP 500,000 UNIT/5 ML CUP PO SCH ×2 (09:05→12:21)
[2020-07-24 09:49] LABS: INR 1.12 (0.90-1.11); Prothrombin Time 11.9 sec (9.9-11.9)
[2020-07-24 11:26] LABS: Glucose,Whole Blood 145 mg/dL (75-99)
[2020-07-24 12:15] VITALS: PULSE 92
--- NOTE | 2020-07-24 12:40 | CDI ---
Documentation Clarification Form Date: 07/24/2020 12:19:33 PM From: Gail Meléndez CCS, CCDS Admit Date: 07/10/2020 10:44:00 PM Patient Name: Fletcher Sanabria Visit Number: [id number] Discharge Date: ATTENTION: The Clinical Documentation Specialists (CDI) and [facility] Coding Staff appreciate your assistance in clarifying documentation. Please respond to the clarification below the line at the bottom and electronically sign. The CDI & [facility] Coding staff will review the response and follow-up if needed. Please note: Queries are made part of the Legal Health Record. If you have any questions, please contact the author of this message via ITS. Dr. Lisa Manley: Dyspnea was documented beginning with the 07/14 Attending Progress Note: "dyspnea/acute exacerbation COPD." Per the 07/17 Pulmonary Progress Note: "Dyspnea, acute on chronic, likely related to sepsis related to right upper extremity cellulitis." Per the 07/23 Pulmonary Progress Note: "Dyspnea, acute on chronic, likely related to sepsis related to right upper extremity cellulitis, Acinetobacter baumanii". History/Risk Factors: COPD, DM II, DVT & PE on Xarelto, Hypertension, Hyperlipidemia, Left AKA, CAD status post stent. Former smoker. Clinical Indicators: Presented to the ED on 07/10 via EMS with altered mental status. Vital signs: T 100.1^, P 136^, R 22 (SOB), BP 72/41*, PO 98 4Lnc. 07/13 VS: T 97.3*, P 103^, R 18 (SOB, shallow), PO 97-98 6Lnc. 07/16 VS: R 24, PO 93 8L High flow. Home Rx: Xarelto, INH Duoneb: Ipratropium-albuterol, Prednisone 30 mg daily. RAD: 07/10 CXR: Pulmonary interstitial infiltrates increased compared to old exam and could relate to fibrosis. Mild heart failure not excluded. There is pleural reaction at the posterior lung bases and mild fluid unchanged. 07/13 CXR: Scattered subpleural fibrosis redemonstrated. Mild increased patchy density left lower lobe may reflect developing infiltrate. 07/18 CXR: Suspect CHF exacerbation as there is persistent cardiomegaly with mild/moderate central vascular congestion and interstitial edema though present on background low lung volumes and chronic interstitial fibrosis. Treatment: O2 4Lnc - 6Lnc - 8Lnc. 07/10 IV fluid 1,000 mls @ 999 mls/hr, IV Rocephin, IV SoluCortef, IV Zosyn, IV Vancomycin. 07/11 IV Ampicillin, INH Albuterol, IV Lasix. 07/14 INH Pulmicort, INH Perforomist, IV Solumedrol. 07/20 IV Cefepime, IV Apresoline. In your professional opinion, can you please clarify if these findings signify one of the following conditions? Acute Respiratory Failure Acute on Chronic Respiratory Failure Chronic Respiratory Failure Other Diagnosis, please specify Unable to determine Specificity: If known, further specify (if known): o With hypercapnia? (pCO2 >50 and pH <7.35) o With hypoxia? (pO2 <60 mm Hg or SpO2 <91% on room air) (Last Query Form Revision: June 2019) Acute on Chronic Respiratory Failure MTDD
--- NOTE | 2020-07-24 13:35 | P.PN ---
Subjective Progress Note Date: 07/24/20 Principal diagnosis: Acute on chronic dyspnea, related to chronic obstructive pulmonary disease, right forearm and right wrist cellulitis, no clear evidence of pneumonia On 07/17/2020 patient seen in follow-up on the general medical surgical floor, he is awake, he is resting comfortably in bed, he has chronic shortness of breath, currently his breathing seems to be comfortable, he is on 6 L of oxygen his pulse ox of 99%, hemodynamically patient is stable, he is afebrile. His chest x-ray on 07/13/2020 showed that scattered subpleural fibrosis, mild increased patchy density in the left lower lobe, we did not think this was related to underlying pneumonia. We added IV steroids, patient is receiving nebulized bronchodilators, and antibiotics in the form of Unasyn. His blood culture showed Acinetobacter Kayla, and follow blood culture is negative thus far. Brain CT was obtained in view of episodes of confusion, and revealed age- related changes and possible chronic small vessel ischemia, neurology is following, he is currently having EEG done. Denies any headaches, denies any numbness, no nausea or vomiting, no worsening shortness of breath or chest pain. Today's hemoglobin is 6.9, and and patient was transfused with 1 unit of packed red blood cells. No clear evidence of bleeding, GI service evaluation was requested. ID service is following, nephrology is following, patient is receiving wound care per wound care team. On 07/18/2020 patient seen in follow-up on the general medical surgical floor, he is drowsy, but arousable he remains on 4 L of oxygen a pulse ox of 96-98%, which dropped down the FiO2 down to 2 L, breathing comfortably, less dyspneic. Lung sounds reveal diminished sounds, with bibasilar crackles, no significant wheezes, looking probably switch the IV steroids to oral prednisone, he remains on nebulized bronchodilators, no significant cough or congestion, no convincing chest pain, today's chest x-ray has been reviewed showing low lung volumes, chronic bronchial fibrotic changes bilaterally, pulmonary vascular congestion. Today's labs have been reviewed. His hemoglobin is 7.3 with no obvious signs of bleeding, GI service is following, and patient is receiving iron infusions. He remains on Unasyn for evidence of Acinetobacter Baumanii in the blood cultures, follow blood culture has shown no growth thus far, ID service is following. Patient has been afebrile. On 07/19/2020 patient seen in follow-up on medical surgical floor, he is resting in bed, he is drowsy but easily arouses, isn't questions appropriately, he still gets short of breath with any exertion, but no acute distress at rest, she is on 4 L of oxygen. Pulse ox 97%, his vital signs have been stable, he is afebrile, he is on antibiotics for cellulitis and sepsis, and Acinetobacter Baumannii and the blood cultures. Service is following, he states his breathing still labored at times, is receiving breathing treatments, he is an Unasyn for antibiotics, yesterday's chest x-ray showed hypoventilatory lungs, and pulmonary vascular congestion, possibly related to low lung volumes. On 07/20/2020 patient seen in follow-up on general medical surgical floor, she is currently working with physical therapy, does become quite dyspneic with any exertion. He is awake and alert, he is on 4 L of oxygen his pulse ox of 93%, he is afebrile, hemodynamically patient stable. Denies any chest pain, denies any significant cough or congestion, lung sounds reveal diminished breath sounds with some scattered wheezes, patient is receiving breathing treatments, he remains on oral steroids. He is on antibiotics in the form of cefepime. ID service is following, patient is being treated for cellulitis involving his right upper extremity, and right lower extremity, and bacteremia related to Acinetobacter baumannii. On 07/21/2020 patient seen in follow-up on medical surgical floor, he is up in the recliner right now, appears to be very drowsy, confused, short of breath, he asked them he removed his oxygen, he is down to 79% on room air, he was placed back on oxygen, and 4 L and his pulse ox did come up to 92%, afebrile, hemodynamically patient is stable, patient is very dyspneic with any exertion, requires extensive assistance to get up in the recliner, his been working with physical therapy every day, vital signs have been stable, he is been nothing by mouth after midnight for EGD, lung sounds reveal very minimal wheezing, but equal air entry bilaterally. Patient remains on oral prednisone, and nebulized bronchodilators, he is on antibiotics per ID service recommendations for cellulitis and bacteremia related to Acinetobacter baumannii. On 07/24/2020 patient seen in follow-up on general medical surgical floor. Patient is much more awake on today's exam didn't previous examinations, he is sitting up on a the bed, unassisted, he is working with physical therapy, he does get dyspneic with exertion, but he states his breathing is improved, he does desaturate to 77% on room air, and he clearly qualifies for home oxygen, patient is on 4 L of oxygen with a pulse ox of 93%. He continues on antibiotics for Acinetobacter baumannii. ID service is following, patient had a midline put in for IV antibiotic infusions, currently on cefepime. Oral steroids have been tapered, currently on prednisone 30 mg daily, patient continues on nebulized bronchodilators including Pulmicort and Perforomist and DuoNeb. A few scattered wheezes, overall improved. Patient's daughter at the at the bedside, and the patient and the daughter are both adamant about patient going home instead of rehabilitation Center Objective - Vital Signs Vital signs: Vital Signs Temp 98.6 F 07/24/20 07:00 Pulse 92 07/24/20 12:14 Resp 22 07/24/20 07:00 BP 138/79 07/24/20 07:00 Pulse Ox 93 L 07/24/20 09:37 Intake & Output 07/23/20 07/24/20 07/24/20 18:59 06:59 18:59 Intake Total 700 Output Total 300 Balance 400 Intake: Oral 700 Output: Urine 300 Other: Voiding Method Urinal Diaper # Voids 2 1 # Bowel Movements 1 - Exam GENERAL EXAM: 75-year-old male, drowsy currently at 4 L of oxygen pulse ox 97%, dyspneic, patient just continue working with physical therapy, to voice appears to be in no acute distress HEAD: Normocephalic/atraumatic. EYES: Normal reaction of pupils, equal size. Conjunctiva pink, sclera white. NOSE: Clear with pink turbinates. THROAT: No erythema or exudates. NECK: No masses, no JVD, no thyroid enlargement, no adenopathy. CHEST: No chest wall deformity. Symmetrical expansion. LUNGS: Diminished air entry with no crackles, wheeze, rhonchi or dullness. CVS: Regular rate and rhythm, normal S1 and S2, no gallops, no murmurs, no rubs ABDOMEN: Soft, nontender. No hepatosplenomegaly, normal bowel sounds, no guarding or rigidity. EXTREMITIES: No clubbing, no edema, no cyanosis, 2+ pulses and upper and lower extremities. Left [id number] amputation, right foot is wrapped, right arm is wrapped MUSCULOSKELETAL: Muscle strength and tone normal. SPINE: No scoliosis or deformity SKIN: No rashes CENTRAL NERVOUS SYSTEM: Drowsy, but arousable, confused, appears to be short of breath, she was off his oxygen, he was descending to 79 on room air, was placed back on oxygen, with improvement of his dyspnea. No focal deficits, tone is normal in all 4 extremities. - Labs CBC & Chem 7: 07/23/20 05:50 07/23/20 05:50 Labs: Abnormal Lab Results - Last 24 Hours (Table) 07/23/20 07/23/20 07/24/20 Range/Units 16:40 20:44 05:28 INR 1.12 H (0.90-1.11) POC Glucose (mg/dL) 245 H 184 H (75-99) mg/dL 07/24/20 07/24/20 Range/Units 07:30 11:24 INR (0.90-1.11) POC Glucose (mg/dL) 106 H 145 H (75-99) mg/dL Assessment and Plan Plan: Assessment: #1. Dyspnea, acute on chronic, likely related to sepsis related to right upper extremity cellulitis, Acinetobacter baumanii. No clear evidence of pneumonia on chest x-ray. #2. Altered mental status likely related to underlying metabolic encephalopathy, neurology services are following, improved #3. Elevated troponin #4. Acinetobacter bacteremia #5. Severe anemia, patient was transfused with 1 unit of packed red blood cells, GI evaluation is requested #6. History of left occipital infarct #7. Type 2 diabetes mellitus #8. History of DVT/PE on Xarelto which is currently on hold for severe anemia #9. Chronic obstructive pulmonary disease, currently stable #10. Hyperlipidemia #11. Right foot wound patient is being seen at the wound Center #12. 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 Coronary artery disease and previous cardiac catheterization and stenting #14. History of pancreatitis #15. History of pericarditis Plan: Patient has remained stable, no acute events overnight, he is tolerating physical therapy vital signs have been stable, no fever or chills, he has received a midline for infusion of IV antibiotics after discharge home, discharge is pending for discharge home in the care of his daughter today. I performed a history & physical examination of the patient and discussed their management with my nurse practitioner, Yoselin Wiggins. I reviewed the nurse practitioner's note and agree with the documented findings and plan of care. Lung sounds are positive for diminished breath sounds. The findings and the impression was discussed with the patient. I attest to the documentation by the nurse practitioner. Time with Patient: Less than 30
[2020-07-24] MEDS ORDERED: RIVAROXABAN 20 MG TAB PO SCH (17:30)
[2020-07-24] MEDS ORDERED: PANTOPRAZOLE 40 MG TABLET PO SCH (21:00)
--- NOTE | 2020-07-25 08:43 | P.DS ---
Providers Date of admission: 07/10/20 22:44 Expected date of discharge: 07/24/20 Attending physician: Clarence Steven MD Consults: 07/10/20 22:41 Consult Physician Stat Consulting Provider: Chepe Draper Consult Reason/Comments: Elevated troponin Do you want consulting provider notified?: Yes 07/11/20 11:37 Consult Physician Routine Consulting Provider: Sb Tesfaye Consult Reason/Comments: occipital infarct on CT, old or subacute but changed from previous Do you want consulting provider notified?: Already Contacted 07/13/20 11:56 Consult Physician Urgent Consulting Provider: Cherelle Pendleton Consult Reason/Comments: POSITIVE BLOOD CULTURE Do you want consulting provider notified?: Already Contacted 07/13/20 18:07 Consult Physician Routine Consulting Provider: Julio Cesar Tesfaye Consult Reason/Comments: EARL/SOB, known to patient Do you want consulting provider notified?: Yes Primary care physician: Ruthy Montemayor - Discharge Diagnosis(es) (1) Sepsis due to Gram negative bacteria Status: Acute (2) Metabolic encephalopathy Status: Acute (3) Cellulitis of right arm Status: Acute (4) Elevated troponin Status: Acute (5) COPD (chronic obstructive pulmonary disease) Status: Chronic (6) Rheumatoid arthritis Status: Chronic Hospital Course: Fletcher Sanabria is a 75 yo M with PMH of CAD, T2DM, RA on prednisone, hx PE on xarelto, hx AKA who presented to the ED with confusion and R arm swelling and pain. Pt states his arm has been more painful for at least a week but complains of chronic pain in his ribs as well as lumbar compression fractures. His family is concerned because he is sleeping more, confused, less responsive. Pt denies any obvious cuts or scratches on the arm. On presentation he was febrile and tachcyardic with BP 72/41, WBC 3.1, lactic 4.0, trop 0.055. CXR with interstital prominence, CT head negative. Pt was admitted to medicine and seen by ID. His blood cultures did grow Acinetobacter Baumanii and antibiotics were changed to unasyn. His RUE cellulitis did begin to improve. Pt did experience a drop in his hemoglobin without any obvious source of bleeding, he was started on IV iron and GI consulted. His xarelto was held and his hemoglobin did stabilize and then increase. He underwent EGD which was negative for any bleeds. Due to his intermittent confusion, Neurology was additionally consulted. He was felt to have metabolic encephalopathy as his sensorium improved throughout his hospitalization and EEG was negative. Pt's cellulitis did resolve and he was cleared by all specialists. He is discharged in stable condition and recommended to resume his xarelto and hold MS contin. He will continue percocet for pain control. He has a midline placed and will continue antibioitcs per ID. He will follow up with PCP for labs within 1 week of discharge. DC exam: Gen: well developed elderly male in NAD CV: RRR, no murmur Lungs: normal effort, clear throughout Abd: soft, nontender Patient Condition at Discharge: Serious Plan - Discharge Summary Discharge Rx Participant: No New Discharge Prescriptions: New Atorvastatin [Lipitor] 40 mg PO HS #90 tab Metoprolol Tartrate [Lopressor] 50 mg PO DAILY #90 tab Cefepime [Maxipime] 2 gm IVPB Q8HR vial Pantoprazole [Protonix] 40 mg PO BID #180 tablet. Budesonide [Pulmicort] 0.5 mg INHALATION BID #60 neb Continue Rivaroxaban [Xarelto] 20 mg PO DAILY Gabapentin [Neurontin] 300 mg PO TID #9 cap oxyCODONE-APAP 10-325MG [Percocet 10-325 mg] 1 tab PO QID PRN #12 tab PRN Reason: Pain Nystatin 100,000 Unit/ml Susp [Mycostatin Oral Susp] 500,000 unit PO QID predniSONE 30 mg PO DAILY Therahoney 1 applic TOPICAL MOWEFR Ipratropium-Albuterol Nebulize [Duoneb 0.5 mg-3 mg/3 ml Soln] 3 ml INHALATION RT-HS PRN PRN Reason: Shortness Of Breath Discontinued Morphine Sulfate ER [Ms Contin] 15 mg PO Q12H Discharge Medication List Rivaroxaban [Xarelto] 20 mg PO DAILY 02/14/20 [History] Gabapentin [Neurontin] 300 mg PO TID #9 cap 02/21/20 [Rx] oxyCODONE-APAP 10-325MG [Percocet 10-325 mg] 1 tab PO QID PRN #12 tab 02/21/20 [Rx] Ipratropium-Albuterol Nebulize [Duoneb 0.5 mg-3 mg/3 ml Soln] 3 ml INHALATION RT-HS PRN 07/10/20 [History] Nystatin 100,000 Unit/ml Susp [Mycostatin Oral Susp] 500,000 unit PO QID 07/10/20 [History] Therahoney 1 applic TOPICAL MOWEFR 07/10/20 [History] predniSONE 30 mg PO DAILY 07/10/20 [History] Atorvastatin [Lipitor] 40 mg PO HS #90 tab 07/24/20 [Rx] Budesonide [Pulmicort] 0.5 mg INHALATION BID #60 neb 07/24/20 [Rx] Cefepime [Maxipime] 2 gm IVPB Q8HR vial 07/24/20 [Rx] Metoprolol Tartrate [Lopressor] 50 mg PO DAILY #90 tab 07/24/20 [Rx] Pantoprazole [Protonix] 40 mg PO BID #180 tablet. 07/24/20 [Rx] Follow up Appointment(s)/Referral(s): [facility] [NON-STAFF] - [facility], [NON-STAFF] - [facility],Infusion [NON-STAFF] - Ruthy Montemayor DO [Primary Care Provider] - 07/31/20 4:45 pm Nilson Torre MD [STAFF PHYSICIAN] - 08/30/20 3:45 pm (gastroenteroloigst for possible colonscopy) Patient Instructions/Handouts: Cellulitis (DC) Activity/Diet/Wound Care/Special Instructions: Patient requires hospital bed to keep head of bed >30 degrees most of the time at discharge secondary to orthopnea from COPD Discharge Disposition: HOME WITH HOME HEALTH SERVICES
--- NOTE | 2020-07-26 15:39 | P.PN ---
Progress Note - Text Progress Note Date: 07/25/20 REASON FOR FOLLOWUP: Acinetobacter bacteremia source likely upper extremity cellulitis and question of pneumonia. INTERVAL HISTORY: The patient remains to be afebrile. The patient is breathing comfortably denies having any chest pain and minimal cough Denies any abdominal pain no diarrhea or pain to the right upper extremity PHYSICAL EXAMINATION: Blood pressure 130/79 with a pulse of 88, temperature 98.7. General description is an elderly male lying in bed in no distress. RESPIRATORY SYSTEM: Unlabored breathing, decreased breath sounds at the bases. No wheeze. HEART: S1, S2. Regular rate and rhythm. ABDOMEN: Soft no tenderness. Right lower extremity redness and swelling has resolved. LABS: No CBC was done today DIAGNOSTIC IMPRESSION AND PLAN: Patient with Acinetobacter baumannii bacteremia source likely cellulitis and a question of pneumonia The patient followup blood culture has been negative. The patient received almost 10 days of antibiotics, may continue cefepime for about a week and close outpatient followup.
== END 2020-07-24 16:18 | disposition home health service (06) | DRG 871 ==
LOC: EC 17:39 → 3SCARD 22:44 → 4SSUR 07-17 00:20
PROVIDERS: ADMIT Family Medicine; ATTEND Family Medicine
PROC: 30233N1 Transfusion of Nonautologous Red Blood Cells into Peripheral Vein, Percutaneous Approach (ICD-10-PCS; principal; 2020-07-17)
PROC: 0DB98ZX Excision of Duodenum, Via Natural or Artificial Opening Endoscopic, Diagnostic (ICD-10-PCS; 2020-07-21)
PROC: 0DB78ZX Excision of Stomach, Pylorus, Via Natural or Artificial Opening Endoscopic, Diagnostic (ICD-10-PCS; 2020-07-21)
PROC: 05H933Z Insertion of Infusion Device into Right Brachial Vein, Percutaneous Approach (ICD-10-PCS; 2020-07-24)
DX: A41.50 Gram-negative sepsis, unspecified (principal); G92 Toxic encephalopathy; J69.0 Pneumonitis due to inhalation of food and vomit; J96.20 Acute and chronic respiratory failure, unspecified whether with hypoxia or hypercapnia; E87.2 Acidosis; E27.40 Unspecified adrenocortical insufficiency; R47.01 Aphasia; L97.312 Non-pressure chronic ulcer of right ankle with fat layer exposed; L97.215 Non-pressure chronic ulcer of right calf with muscle involvement without evidence of necrosis; L97.115 Non-pressure chronic ulcer of right thigh with muscle involvement without evidence of necrosis; J44.1 Chronic obstructive pulmonary disease with (acute) exacerbation; I47.1 Supraventricular tachycardia; M00.9 Pyogenic arthritis, unspecified; D62 Acute posthemorrhagic anemia; M48.56XA Collapsed vertebra, not elsewhere classified, lumbar region, initial encounter for fracture; L03.113 Cellulitis of right upper limb; L03.115 Cellulitis of right lower limb; E11.649 Type 2 diabetes mellitus with hypoglycemia without coma; L97.512 Non-pressure chronic ulcer of other part of right foot with fat layer exposed; S91.311A Laceration without foreign body, right foot, initial encounter; D63.8 Anemia in other chronic diseases classified elsewhere; I95.9 Hypotension, unspecified; Z89.612 Acquired absence of left leg above knee; L98.492 Non-pressure chronic ulcer of skin of other sites with fat layer exposed; I48.0 Paroxysmal atrial fibrillation; F11.10 Opioid abuse, uncomplicated; M06.9 Rheumatoid arthritis, unspecified; R40.2142 Coma scale, eyes open, spontaneous, at arrival to emergency department; R40.2362 Coma scale, best motor response, obeys commands, at arrival to emergency department; R40.2252 Coma scale, best verbal response, oriented, at arrival to emergency department; I25.10 Atherosclerotic heart disease of native coronary artery without angina pectoris; E78.5 Hyperlipidemia, unspecified; E86.0 Dehydration; G89.29 Other chronic pain; I11.9 Hypertensive heart disease without heart failure; I45.4 Nonspecific intraventricular block; I07.1 Rheumatic tricuspid insufficiency; K76.89 Other specified diseases of liver; K29.70 Gastritis, unspecified, without bleeding; H81.10 Benign paroxysmal vertigo, unspecified ear; I65.23 Occlusion and stenosis of bilateral carotid arteries; F12.10 Cannabis abuse, uncomplicated; R32 Unspecified urinary incontinence; R79.89 Other specified abnormal findings of blood chemistry; W19.XXXA Unspecified fall, initial encounter; Z71.3 Dietary counseling and surveillance; Z79.899 Other long term (current) drug therapy; Z79.01 Long term (current) use of anticoagulants; Z79.52 Long term (current) use of systemic steroids; Z86.711 Personal history of pulmonary embolism; Z86.718 Personal history of other venous thrombosis and embolism; Z87.19 Personal history of other diseases of the digestive system; Z86.14 Personal history of Methicillin resistant Staphylococcus aureus infection; Z95.5 Presence of coronary angioplasty implant and graft; Z96.652 Presence of left artificial knee joint; Z96.611 Presence of right artificial shoulder joint; Z87.81 Personal history of (healed) traumatic fracture; Z98.890 Other specified postprocedural states; Z87.891 Personal history of nicotine dependence; Z86.73 Personal history of transient ischemic attack (TIA), and cerebral infarction without residual deficits; Z80.9 Family history of malignant neoplasm, unspecified; Z82.0 Family history of epilepsy and other diseases of the nervous system; Z82.61 Family history of arthritis
CPT/HCPCS: 36410; 36415; 43239; 70450; 70496; 70498; 71045; 71046; 76937; 80048; 80053; 80061; 80076; 80306; 80320; 81003; 82140; 82550; 82565; 82607; 82728; 82746; 83036; 83540; 83550; 83605; 83735; 84132; 84443; 84484; 85025; 85045; 85610; 85730; 86140; 86850; 86900; 86901; 86920; 87040; 87077; 87186; 88305; 93005; 93306; 93880; 94640; 94760; 95819; 96361; 96365; 96366; 96367; 96375; 96376; 99291

== ENCOUNTER → 2020-07-25 | Day surgery (SDC) | payer MEDICARE | LOC: CATHCVL 12:08 | PROVIDERS: ATTEND Internal Medicine Infectious Disease | DX: L03.113 Cellulitis of right upper limb (principal); E11.9 Type 2 diabetes mellitus without complications | CPT/HCPCS: 36410; 76937; C1751 ==

== ENCOUNTER 2020-10-24 00:50 | Inpatient (IN) | payer MEDICARE ==
[2020-10-24] MEDS ORDERED: SODIUM CHLORIDE 0.9% 1,000 ML IV STA (01:17)
--- NOTE | 2020-10-24 01:24 | ED ---
Altered Mental Status HPI - General Chief Complaint: Back Pain/Injury Stated Complaint: Body pain Time Seen by Provider: 10/24/20 00:56 Source: patient, EMS, RN notes reviewed, old records reviewed Mode of arrival: EMS Limitations: no limitations - History of Present Illness Initial Comments: This is a 75-year-old male who presents pain chronic back pain. Patient is unable to find history possibly secondary to altered mental status versus medication induced altered mental status from getting pain medication from EMS. EMS states patient was alert and oriented prior to transport. Patient here is unable to answer questions MD Complaint: altered mental status, confusion, weakness -: hour(s) Severity: moderate Consistency of Symptoms: waxing and waning Associated Symptoms: weakness Treatments Prior to Arrival: other pre-hospital medication (Pain medication) - Related Data Home Medications Medication Instructions Recorded Confirmed Rivaroxaban [Xarelto] 20 mg PO DAILY 02/14/20 07/10/20 Ipratropium-Albuterol Nebulize 3 ml INHALATION RT-HS PRN 07/10/20 07/10/20 [Duoneb 0.5 mg-3 mg/3 ml Soln] Nystatin 100,000 Unit/ml Susp 500,000 unit PO QID 07/10/20 07/10/20 [Mycostatin Oral Susp] Therahoney 1 applic TOPICAL MOWEFR 07/10/20 07/10/20 predniSONE 30 mg PO DAILY 07/10/20 07/10/20 Previous Rx's Medication Instructions Recorded Gabapentin [Neurontin] 300 mg PO TID #9 cap 02/21/20 oxyCODONE-APAP 10-325MG [Percocet 1 tab PO QID PRN #12 tab 02/21/20 10-325 mg] Atorvastatin [Lipitor] 40 mg PO HS #90 tab 07/24/20 Budesonide [Pulmicort] 0.5 mg INHALATION BID #60 neb 07/24/20 Cefepime [Maxipime] 2 gm IVPB Q8HR vial 07/24/20 Metoprolol Tartrate [Lopressor] 50 mg PO DAILY #90 tab 07/24/20 Pantoprazole [Protonix] 40 mg PO BID #180 tablet. 07/24/20 Allergies Allergy/AdvReac Type Severity Reaction Status Date / Time No Known Allergies Allergy Verified 07/10/20 19:29 Review of Systems ROS Statement: Those systems with pertinent positive or pertinent negative responses have been documented in the HPI. ROS Other: All systems not noted in ROS Statement are negative. Past Medical History Past Medical History: Coronary Artery Disease (CAD), COPD, Deep Vein Thrombosis (DVT), Hyperlipidemia, Pneumonia, Pulmonary Embolus (PE), Rheumatoid Arthritis (RA), Vascular Disorder Additional Past Medical History / Comment(s): History of pancreatitis, 2012 past medical record documents viral pericarditis but pt denies, gastritis, Fluid build up rt lung - previous chest tube - pt unsure what it is from, BOTTOM TEETH REMOVED 09-01-18, wounds in his right lower extremity, left [id number] stump and left elbow History of Any Multi-Drug Resistant Organisms: MRSA Date of last positivie culture/infection: 11/23/18 MDRO Source:: KNEE Past Surgical History: Heart Catheterization With Stent, Joint Replacement, Orthopedic Surgery Additional Past Surgical History / Comment(s): Total L knee arthroplasty with a spacer in place, R total shoulder replaced, L ankle ORIF d/t fracture, EGD, left rotator cuff repair. 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 Date of Last Stent Placement:: 12/10/16 Past Psychological History: Anxiety, Depression Smoking Status: Former smoker Past Alcohol Use History: None Reported Past Drug Use History: None Reported - Past Family History Sister(s) Family Medical History: Cancer Additional Family Medical History / Comment(s): pt's father had ra, mother had 16 children was healthy most of her life age 93 from dementia. Mother Family Medical History: Dementia Additional Family Medical History / Comment(s): Mother from dementia at the age of 93 yrs. Father Family Medical History: Rheumatoid Arthritis (RA) General Exam Limitations: altered mental status, physical limitation General appearance: in no apparent distress, anxious, in distress, cachectic Head exam: Present: atraumatic, normocephalic, normal inspection Eye exam: Present: normal appearance, PERRL, EOMI. Absent: scleral icterus, conjunctival injection, periorbital swelling ENT exam: Present: normal exam, mucous membranes moist Neck exam: Present: normal inspection. Absent: tenderness, meningismus, lymphadenopathy Respiratory exam: Present: normal lung sounds bilaterally. Absent: respiratory distress, wheezes, rales, rhonchi, stridor Cardiovascular Exam: Present: regular rate, normal rhythm, normal heart sounds. Absent: systolic murmur, diastolic murmur, rubs, gallop, clicks GI/Abdominal exam: Present: soft, normal bowel sounds. Absent: distended, tenderness, guarding, rebound, rigid Extremities exam: Present: normal inspection, full ROM, normal capillary refill. Absent: tenderness, pedal edema, joint swelling, calf tenderness Back exam: Present: normal inspection Neurological exam: Present: alert, oriented X3, CN II-XII intact Psychiatric exam: Present: normal affect, normal mood Skin exam: Present: warm, dry, intact, normal color. Absent: rash Course Vital Signs 10/24/20 10/24/20 00:56 02:55 Temperature 98.7 F 98.4 F Pulse Rate 98 110 H Respiratory 18 18 Rate Blood Pressure 116/75 110/97 O2 Sat by Pulse 98 98 Oximetry - Reevaluation(s) Reevaluation #1: 10/24/20 01:38 Medical record is reviewed Reevaluation #2: 10/24/20 04:19 Patient showing no significant real improvement in symptoms altered mental status remains - Consultations Consultation #1: Spoke with Dr. Steven who agrees to admit the patient Procedures - Sepsis Sepsis Focused Exam #1 Time Sepsis Criteria Met: 04:20 Sepsis Focused Exam Date: 10/24/20 Sepsis Focused Exam Time: 04:20 Sepsis Focused Exam Complete: Yes Vital Signs & RN Notes Reviewed: Yes Capillary Refill: < 2 Seconds: Fingers, Toes Peripheral Pulses: Normal: Radial (R), Radial (L) Skin Color: Normal for Patient Respiratory Exam: respiratory distress, wheezes, rales, rhonchi Cardiovascular Exam: bradycardia Medical Decision Making - Medical Decision Making 75 male known to facility multiple medical comorbidities severe. Patient has sepsis, weakness and altered mental status pneumonia leukocytosis and lactic acidosis. Patient to be admitted for evaluation and treatment - Lab Data Result diagrams: 10/24/20 02:05 10/24/20 02:05 Lab Results 10/24/20 10/24/20 10/24/20 Range/Units 02:05 02:05 02:41 WBC 19.9 H (3.8-10.6) k/uL RBC 5.05 (4.30-5.90) m/uL Hgb 10.6 L (13.0-17.5) gm/dL Hct 36.1 L (39.0-53.0) % MCV 71.5 L (80.0-100.0) fL MCH 20.9 L (25.0-35.0) pg MCHC 29.2 L (31.0-37.0) g/dL RDW 17.3 H (11.5-15.5) % Plt Count 605 H (150-450) k/uL MPV 7.5 Neutrophils % (Manual) 86 % Band Neuts % (Manual) 4 % Lymphocytes % (Manual) 9 % Monocytes % (Manual) 1 % Neutrophils # (Manual) 17.90 H (1.3-7.7) k/uL Lymphocytes # (Manual) 1.79 (1.0-4.8) k/uL Monocytes # (Manual) 0.20 (0-1.0) k/uL Nucleated RBCs 0 (0-0) /100 WBC Manual Slide Review Performed Toxic Vacuolation Present Large Platelets Present Polychromasia Present Hypochromasia Marked Poikilocytosis Slight Anisocytosis Slight Microcytosis Moderate Target Cells Present Fragmented RBCs Present PT 14.5 H (9.0-12.0) sec INR 1.4 H (<1.2) APTT 22.6 (22.0-30.0) sec Sodium 139 (137-145) mmol/L Potassium 5.1 (3.5-5.1) mmol/L Chloride 105 (98-107) mmol/L Carbon Dioxide 25 (22-30) mmol/L Anion Gap 9 mmol/L BUN 28 H (9-20) mg/dL Creatinine 0.76 (0.66-1.25) mg/dL Est GFR (CKD-EPI)AfAm >90 (>60 ml/min/1.73 sqM) Est GFR (CKD-EPI)NonAf >90 (>60 ml/min/1.73 sqM) Glucose 98 (74-99) mg/dL Plasma Lactic Acid Harsh (0.7-2.0) mmol/L Calcium 8.9 (8.4-10.2) mg/dL Phosphorus 3.5 (2.5-4.5) mg/dL Magnesium 1.9 (1.6-2.3) mg/dL Total Bilirubin 0.5 (0.2-1.3) mg/dL AST 21 (17-59) U/L ALT 21 (4-49) U/L Alkaline Phosphatase 160 H (38-126) U/L Ammonia (<30) umol/L Creatine Kinase 22 L (55-170) U/L Troponin I (0.000-0.034) ng/mL NT-Pro-B Natriuret Pep pg/mL Total Protein 6.9 (6.3-8.2) g/dL Albumin 3.1 L (3.5-5.0) g/dL 10/24/20 10/24/20 10/24/20 Range/Units 02:41 02:41 02:56 WBC (3.8-10.6) k/uL RBC (4.30-5.90) m/uL Hgb (13.0-17.5) gm/dL Hct (39.0-53.0) % MCV (80.0-100.0) fL MCH (25.0-35.0) pg MCHC (31.0-37.0) g/dL RDW (11.5-15.5) % Plt Count (150-450) k/uL MPV Neutrophils % (Manual) % Band Neuts % (Manual) % Lymphocytes % (Manual) % Monocytes % (Manual) % Neutrophils # (Manual) (1.3-7.7) k/uL Lymphocytes # (Manual) (1.0-4.8) k/uL Monocytes # (Manual) (0-1.0) k/uL Nucleated RBCs (0-0) /100 WBC Manual Slide Review Toxic Vacuolation Large Platelets Polychromasia Hypochromasia Poikilocytosis Anisocytosis Microcytosis Target Cells Fragmented RBCs PT (9.0-12.0) sec INR (<1.2) APTT (22.0-30.0) sec Sodium (137-145) mmol/L Potassium (3.5-5.1) mmol/L Chloride (98-107) mmol/L Carbon Dioxide (22-30) mmol/L Anion Gap mmol/L BUN (9-20) mg/dL Creatinine (0.66-1.25) mg/dL Est GFR (CKD-EPI)AfAm (>60 ml/min/1.73 sqM) Est GFR (CKD-EPI)NonAf (>60 ml/min/1.73 sqM) Glucose (74-99) mg/dL Plasma Lactic Acid Harsh 4.0 H* (0.7-2.0) mmol/L Calcium (8.4-10.2) mg/dL Phosphorus (2.5-4.5) mg/dL Magnesium (1.6-2.3) mg/dL Total Bilirubin (0.2-1.3) mg/dL AST (17-59) U/L ALT (4-49) U/L Alkaline Phosphatase (38-126) U/L Ammonia <9 (<30) umol/L Creatine Kinase (55-170) U/L Troponin I <0.012 (0.000-0.034) ng/mL NT-Pro-B Natriuret Pep 1020 pg/mL Total Protein (6.3-8.2) g/dL Albumin (3.5-5.0) g/dL - EKG Data -: EKG Interpreted by Me (EKG shows sinus rhythm 100 AK 134 QRS 80 QTC 428) - Radiology Data Radiology results: report reviewed (CT brain is negative chest x-ray does show pneumonia), image reviewed Critical Care Time Critical Care Time: Yes Total Critical Care Time: 31 Disposition Clinical Impression: COPD exacerbation, Dehydration, Tachycardia, Mid back pain, Shortness of breath, Lactic acidosis, Leukocytosis, Nosocomial pneumonia Disposition: ADMITTED IP TO THIS HOSP Condition: Critical Referrals: Diane Steven DO [Primary Care Provider] - 1-2 days
[2020-10-24 02:23] LABS: ALT 21 U/L (4-49); AST 21 U/L (17-59); African American GFR (CKD) >90 (>60 ml/min/1.73 sqM); Albumin 3.1 g/dL (3.5-5.0); Alkaline Phosphatase 160 U/L (38-126); Anion Gap 9 mmol/L; Blood Urea Nitrogen 28 mg/dL (9-20); Calcium 8.9 mg/dL (8.4-10.2); Carbon Dioxide 25 mmol/L (22-30); Chloride 105 mmol/L (98-107); Creatine Kinase 22 U/L (55-170); Glucose 98 mg/dL (74-99); Magnesium 1.9 mg/dL (1.6-2.3); Non-African American GFR(CKD) >90 (>60 ml/min/1.73 sqM); Phosphorus 3.5 mg/dL (2.5-4.5); Potassium 5.1 mmol/L (3.5-5.1); Sodium 139 mmol/L (137-145); Total Bilirubin 0.5 mg/dL (0.2-1.3); Total Protein 6.9 g/dL (6.3-8.2)
[2020-10-24] MEDS ORDERED: HYDROmorphone 1 MG/ML 1 ML SYRINGE IVP STA ×2 (02:32→05:44)
[2020-10-24 03:11] LABS: Anisocytosis Slight; HCT 36.1 % (39.0-53.0); HGB 10.6 gm/dL (13.0-17.5); Hypochromasia Marked; MCH 20.9 pg (25.0-35.0); MCHC 29.2 g/dL (31.0-37.0); MCV 71.5 fL (80.0-100.0); Mean Platelet Volume 7.5; Microcytosis Moderate; Platelet Count 605 k/uL (150-450); Poikilocytosis Slight; RBC 5.05 m/uL (4.30-5.90); RDW 17.3 % (11.5-15.5); WBC 19.9 k/uL (3.8-10.6)
--- NOTE | 2020-10-24 03:27 | XR ---
EXAM: XR Chest, 1 View CLINICAL HISTORY: ITS.REASON XR Reason: Weakness TECHNIQUE: Frontal view of the chest. COMPARISON: 02/14/2020 IMPRESSION: Cardiomegaly. Increased right basilar opacity, correlate with atelectasis versus infection/aspiration.
--- NOTE | 2020-10-24 03:36 | CT ---
EXAM: CT Head Without Intravenous Contrast CLINICAL HISTORY: ITS.REASON CT Reason: weakness TECHNIQUE: Axial computed tomography images of the head/brain without intravenous contrast. CTDI is 49.27 mGy and DLP is 1063.4 mGy-cm. This CT exam was performed using one or more of the following dose reduction techniques: automated exposure control, adjustment of the mA and/or kV according to patient size, and/or use of iterative reconstruction technique. COMPARISON: 07/10/2020 FINDINGS: Brain: No hemorrhage, herniation, or mass effect. Chronic microvascular ischemic changes. Ventricles: No hydrocephalus. Age related cerebral volume loss. Bones/joints: Unremarkable. Soft tissues: Unremarkable. Sinuses: Unremarkable. Mastoid air cells: Clear. IMPRESSION: No acute hemorrhage, hydrocephalus, or mass effect.
[2020-10-24 03:48] LABS: INR 1.4 (<1.2); Partial Thromboplastin Time 22.6 sec (22.0-30.0); Prothrombin Time 14.5 sec (9.0-12.0)
[2020-10-24 04:01] LABS: Band Neutrophils % 4 %; Large Platelets Present; Lymphocytes # (M) 1.79 k/uL (1.0-4.8); Neutrophils % (M) 86 %; Nucleated Red Blood Cells 0 /100 WBC (0-0); Polychromasia Present; Total Cells Counted 100
[2020-10-24 04:03] LABS: Target Cells Present
[2020-10-24 04:05] LABS: RBC Fragments Present
[2020-10-24 04:07] LABS: Toxic Vacuolation Present
[2020-10-24] MEDS ORDERED: PIPERACILLIN-TAZOBACTAM 3.375 GM in SODIUM CHLORIDE 0.9% 100 ML IVPB STA (04:16)
[2020-10-24] MEDS ORDERED: AZITHROMYCIN 500 MG in SODIUM CHLORIDE 0.9% 250 ML IVPB STA (04:16)
[2020-10-24] MEDS ORDERED: PNEUMONIA PROTOCOL UTILIZED 1 EACH MISC PO PRN (04:16)
[2020-10-24] MEDS ORDERED: SODIUM CHLORIDE 0.9% 500 ML 500 ML IV STA (04:21)
[2020-10-24] MEDS ORDERED: VANCOMYCIN IV PER PHARMACY 1 EACH MISC MISCELLANE PRN (04:21)
[2020-10-24] MEDS ORDERED: VANCOMYCIN 1,500 MG in SODIUM CHLORIDE 0.9% 250 ML IVPB STA (04:28)
[2020-10-24] MEDS: SODIUM CHLORIDE 0.9% 1,000 ML IV STA (04:37)
[2020-10-24] MEDS: SODIUM CHLORIDE 0.9% 1,000 ML IV SCH ×2 (04:37→15:21)
[2020-10-24] MEDS: IPRATROPIUM-ALBUTEROL 3 ML NEB INHALATION PRN ×4 (07:33→19:07)
[2020-10-24 08:12] LABS: Appearance,Urine Clear (Clear); Bilirubin,Urine Negative (Negative); Blood,Urine Negative (Negative); Color,Urine Yellow; Glucose,Urine (UA) Negative (Negative); Ketones,Urine Negative (Negative); Leukocyte Esterase,Urine Negative (Negative); Nitrite,Urine Negative (Negative); Protein,Urine Negative (Negative); Specific Gravity,Urine 1.025 (1.001-1.035); Urobilinogen,Urine <2.0 mg/dL (<2.0)
[2020-10-24] MEDS: PANTOPRAZOLE 40 MG TABLET PO SCH ×2 (08:44→16:48)
[2020-10-24] MEDS: METOPROLOL TARTRATE 50 MG TAB PO SCH (08:44)
[2020-10-24] MEDS: RIVAROXABAN 20 MG TAB PO SCH (08:45)
[2020-10-24] MEDS ORDERED: ENOXAPARIN 40 MG/0.4 ML SYRINGE SQ SCH (09:00)
[2020-10-24] MEDS ORDERED: MORPHINE SULFATE ER 15 MG TABLET PO SCH (09:00)
[2020-10-24] MEDS: HYDROmorphone 1 MG/ML 1 ML SYRINGE IVP PRN ×2 (09:38→21:30)
[2020-10-24] MEDS: BUDESONIDE 0.5 MG/2 ML NEBU INHALATION SCH ×2 (11:11→19:07)
[2020-10-24] MEDS: oxyCODONE-APAP 10-325MG 1 EACH TAB PO PRN ×2 (12:34→19:56)
[2020-10-24] MEDS ORDERED: ACETAMINOPHEN TAB 325 MG TAB PO PRN (15:20)
[2020-10-24] MEDS: PIPERACILLIN-TAZOBACTAM 3.375 GM in SODIUM CHLORIDE 0.9% 100 ML IVPB SCH ×2 (16:22→21:33)
[2020-10-24] MEDS: NYSTATIN 100,000 UNIT/ML SUSP 500,000 UNIT/5 ML CUP PO SCH ×2 (16:48→21:31)
[2020-10-24] MEDS: VANCOMYCIN 1,500 MG in SODIUM CHLORIDE 0.9% 250 ML IVPB SCH (19:56)
[2020-10-24] MEDS: ATORVASTATIN 40 MG TAB PO SCH (19:57)
--- NOTE | 2020-10-24 23:22 | P.HPIM ---
History of Present Illness H&P Date: 10/24/20 Chief Complaint: pain, shortness of breath Fletcher Sanabria is a 75 yo M with PMH of CAD, T2DM, RA on prednisone, thoracic compression fractures with chronic back pain, hx PE on xarelto, hx AKA who presented to the ED with worsening pain and shortness of breath. He complains th at for the last week especially, his back pain has worsened to the point that it is constant and severe. He complains of difficulty moving around his house. Pt had been undergoing outpatient workup for RLE erythema and foot pain and was to have an MRI of the foot. On presentation vitals were stable, pt on 2 L O2, WBC 20k, CRP 37, COVID negative. CXR with RLL infiltrate, CT brain no acute process. Blood cultures drawn and preliminary gram stain with gram positive cocci. Review of Systems All systems: negative Constitutional: Reports malaise, Reports weakness, Denies chills, Denies fever Eyes: denies blurred vision, denies pain Ears, nose, mouth and throat: Denies headache, Denies sore throat Cardiovascular: Denies chest pain, Denies shortness of breath Respiratory: Reports cough, Reports wheezing Gastrointestinal: Denies abdominal pain, Denies diarrhea, Denies nausea, Denies vomiting Musculoskeletal: Reports atrophy, Reports frequent falls, Reports loss of height, Reports low back pain, Denies myalgias Integumentary: Denies pruritus, Denies rash Neurological: Denies numbness, Denies weakness Psychiatric: Denies anxiety, Denies depression Endocrine: Denies fatigue, Denies weight change Past Medical History Past Medical History: Coronary Artery Disease (CAD), COPD, Deep Vein Thrombosis (DVT), Hyperlipidemia, Pneumonia, Pulmonary Embolus (PE), Rheumatoid Arthritis (RA), Vascular Disorder Additional Past Medical History / Comment(s): History of pancreatitis, 2012 past medical record documents viral pericarditis but pt denies, gastritis, Fluid build up rt lung - previous chest tube - pt unsure what it is from, BOTTOM TEETH REMOVED 09-01-18, wounds in his right lower extremity, left [id number] stump and left elbow History of Any Multi-Drug Resistant Organisms: MRSA Date of last positivie culture/infection: 11/23/18 MDRO Source:: KNEE Past Surgical History: Heart Catheterization With Stent, Joint Replacement, Orthopedic Surgery Additional Past Surgical History / Comment(s): Total L knee arthroplasty with a spacer in place, R total shoulder replaced, L ankle ORIF d/t fracture, EGD, left rotator cuff repair. 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 Date of Last Stent Placement:: 12/10/16 Past Psychological History: Anxiety, Depression Additional Psychological History / Comment(s): Patient was a smoker one to one and half packs per day for 40+ years and quit 2 years ago when he had cardiac stents done. He uses a synthetic marijuana at nighttime only for his arthritis to help him sleep. He denies any other street drug use, alcohol use. 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 He lives at home with his . Smoking Status: Former smoker Past Alcohol Use History: None Reported Additional Past Alcohol Use History / Comment(s): Patient was a smoker one to one and half packs per day for 40+ years and quit in 2016 when he had cardiac stents done. Past Drug Use History: None Reported - Past Family History Sister(s) Family Medical History: Cancer Additional Family Medical History / Comment(s): pt's father had ra, mother had 16 children was healthy most of her life age 93 from dementia. Mother Family Medical History: Dementia Additional Family Medical History / Comment(s): Mother from dementia at the age of 93 yrs. Father Family Medical History: Rheumatoid Arthritis (RA) Medications and Allergies Home Medications Medication Instructions Recorded Confirmed Type Gabapentin [Neurontin] 300 mg PO TID #9 cap 02/21/20 10/24/20 Rx predniSONE 10 mg PO TID 07/10/20 10/24/20 History Atorvastatin [Lipitor] 40 mg PO HS #90 tab 07/24/20 10/24/20 Rx Metoprolol Tartrate [Lopressor] 50 mg PO DAILY #90 tab 07/24/20 10/24/20 Rx Pantoprazole [Protonix] 40 mg PO BID #180 tablet. 07/24/20 10/24/20 Rx Morphine Sulfate ER [Ms Contin] 15 mg PO DAILY 10/24/20 10/24/20 History Rivaroxaban [Xarelto] 20 mg PO AC-SUPPER 10/24/20 10/24/20 History lisinopriL [Zestril] 5 mg PO DAILY 10/24/20 10/24/20 History oxyCODONE-APAP 10-325MG [Percocet 1 tab PO QID 10/24/20 10/24/20 History 10-325 mg] Allergies Allergy/AdvReac Type Severity Reaction Status Date / Time No Known Allergies Allergy Verified 07/10/20 19:29 Physical Exam Vitals: Vital Signs Temp Pulse Pulse Resp BP BP Pulse Ox 10/24/20 19:19 98 10/24/20 19:11 98 10/24/20 15:38 100 10/24/20 15:23 98 93 L 10/24/20 15:10 99.0 F 92 22 97/66 94 L 10/24/20 14:00 99.9 F H 78 20 92/61 93 L 10/24/20 11:25 108 H 10/24/20 11:12 112 H 10/24/20 07:58 98.7 F 64 22 123/80 94 L 10/24/20 07:45 104 H 10/24/20 07:33 108 H 10/24/20 05:48 98.2 F 110 H 20 126/88 97 10/24/20 03:55 98.2 F 100 18 122/86 98 10/24/20 02:55 98.4 F 110 H 18 110/97 98 10/24/20 00:56 98.7 F 98 18 116/75 98 Intake and Output 10/24/20 10/24/20 10/24/20 06:59 14:59 22:59 Output Total 425 Balance -425 Output: Urine 425 Other: Voiding Method External Catheter # Bowel Movements 1 Weight 79.379 kg 79.379 kg General: obese, in mild distress. Vitals reviewed Eyes: PERRL, EOMI, conjunctiva normal HENT: normocephalic, mucus membranes moist Neck: supple, no JVD Lungs: normal respiratory effort, no rales. Wheezing present CV: Regular rate and rhythm, no murmur. Peripheral pulses 1+ Abdomen: soft, nondistended, no organomegaly Lymph: no cervical or axillary LAD Skin: warm and dry. R foot erythema, no induration. LLE AKA Neuro: Alert, lethargic Results CBC & Chem 7: 10/24/20 02:05 10/24/20 02:05 Labs: Abnormal Lab Results - Last 24 Hours (Table) 10/24/20 10/24/20 10/24/20 Range/Units 02:05 02:05 02:41 WBC 19.9 H (3.8-10.6) k/uL Hgb 10.6 L (13.0-17.5) gm/dL Hct 36.1 L (39.0-53.0) % MCV 71.5 L (80.0-100.0) fL MCH 20.9 L (25.0-35.0) pg MCHC 29.2 L (31.0-37.0) g/dL RDW 17.3 H (11.5-15.5) % Plt Count 605 H (150-450) k/uL Neutrophils # (Manual) 17.90 H (1.3-7.7) k/uL PT 14.5 H (9.0-12.0) sec INR 1.4 H (<1.2) BUN 28 H (9-20) mg/dL Plasma Lactic Acid Harsh (0.7-2.0) mmol/L Alkaline Phosphatase 160 H (38-126) U/L Creatine Kinase 22 L (55-170) U/L C-Reactive Protein (<10.0) mg/L Albumin 3.1 L (3.5-5.0) g/dL 10/24/20 10/24/20 10/24/20 Range/Units 02:41 02:56 05:28 WBC (3.8-10.6) k/uL Hgb (13.0-17.5) gm/dL Hct (39.0-53.0) % MCV (80.0-100.0) fL MCH (25.0-35.0) pg MCHC (31.0-37.0) g/dL RDW (11.5-15.5) % Plt Count (150-450) k/uL Neutrophils # (Manual) (1.3-7.7) k/uL PT (9.0-12.0) sec INR (<1.2) BUN (9-20) mg/dL Plasma Lactic Acid Harsh 4.0 H* 2.4 H* (0.7-2.0) mmol/L Alkaline Phosphatase (38-126) U/L Creatine Kinase (55-170) U/L C-Reactive Protein 36.8 H (<10.0) mg/L Albumin (3.5-5.0) g/dL 10/24/20 10/24/20 Range/Units 08:37 11:41 WBC (3.8-10.6) k/uL Hgb (13.0-17.5) gm/dL Hct (39.0-53.0) % MCV (80.0-100.0) fL MCH (25.0-35.0) pg MCHC (31.0-37.0) g/dL RDW (11.5-15.5) % Plt Count (150-450) k/uL Neutrophils # (Manual) (1.3-7.7) k/uL PT (9.0-12.0) sec INR (<1.2) BUN (9-20) mg/dL Plasma Lactic Acid Harsh 2.7 H* 3.4 H* (0.7-2.0) mmol/L Alkaline Phosphatase (38-126) U/L Creatine Kinase (55-170) U/L C-Reactive Protein (<10.0) mg/L Albumin (3.5-5.0) g/dL Microbiology - Last 24 Hours (Table) 10/24/20 05:28 Blood Culture - Final Blood Thrombosis Risk Factor Assmnt - Choose All That Apply Other Risk Factors: No Each Risk Factor Represents 2 Points: Age 61-74 years Other congenital or acquired thrombophilia - If yes, enter type in comment: No Thrombosis Risk Factor Assessment Total Risk Factor Score: 2 Thrombosis Risk Factor Assessment Level: Low Risk Assessment and Plan (1) COPD exacerbation Current Visit: Yes Status: Acute Code(s): J44.1 - CHRONIC OBSTRUCTIVE PULMONARY DISEASE W (ACUTE) EXACERBATION SNOMED Code(s): 186947872 (2) Lactic acidosis Current Visit: Yes Status: Acute Code(s): E87.2 - ACIDOSIS SNOMED Code(s): 34249220 (3) Sepsis Current Visit: Yes Status: Acute Code(s): A41.9 - SEPSIS, UNSPECIFIED ORGANISM SNOMED Code(s): 18770275 (4) Thoracic back pain Current Visit: Yes Status: Acute Code(s): M54.6 - PAIN IN THORACIC SPINE SNOMED Code(s): 950831430 (5) Abdominal pain in male Current Visit: No Status: Acute Code(s): R10.9 - UNSPECIFIED ABDOMINAL PAIN SNOMED Code(s): 17072924 (6) Above knee amputation of left lower extremity Current Visit: No Status: Acute Code(s): S78.112A - COMPLETE TRAUMATIC AMP AT LEVEL BETW LEFT HIP AND KNEE, INIT SNOMED Code(s): 589658740 Plan: 1. Sepsis due to gram positive cocci. Pt on IV vancomycin and zosyn, continue with abx. Question R foot infection and bone scan ordered. Consult ID 2. Acute and chronic thoracic back pain. Continue with home percocet and MS contin. Ortho consult for further recommendations 3. COPD exacerbation. continue with IV antibiotics and pulmicort 4. HLD. continue lipitor 5. Hx PE. continue xalreto
[2020-10-25] MEDS: MORPHINE SULFATE ER 15 MG TABLET PO SCH ×3 (00:07→20:21)
[2020-10-25] MEDS: oxyCODONE-APAP 10-325MG 1 EACH TAB PO PRN ×4 (01:26→17:17)
[2020-10-25] MEDS: SODIUM CHLORIDE 0.9% 1,000 ML IV SCH ×3 (03:12→17:07)
[2020-10-25] MEDS ORDERED: AZITHROMYCIN 500 MG in SODIUM CHLORIDE 0.9% 250 ML IVPB SCH (04:16)
[2020-10-25] MEDS: IPRATROPIUM-ALBUTEROL 3 ML NEB INHALATION PRN ×4 (05:16→20:09)
[2020-10-25] MEDS: PIPERACILLIN-TAZOBACTAM 3.375 GM in SODIUM CHLORIDE 0.9% 100 ML IVPB SCH ×3 (05:41→20:21)
[2020-10-25] MEDS: VANCOMYCIN 1,500 MG in SODIUM CHLORIDE 0.9% 250 ML IVPB SCH ×2 (07:11→17:07)
[2020-10-25] MEDS: BUDESONIDE 0.5 MG/2 ML NEBU INHALATION SCH ×2 (08:18→20:09)
[2020-10-25] MEDS: METOPROLOL TARTRATE 50 MG TAB PO SCH (08:30)
[2020-10-25] MEDS: RIVAROXABAN 20 MG TAB PO SCH (08:30)
[2020-10-25] MEDS: PANTOPRAZOLE 40 MG TABLET PO SCH ×2 (08:30→17:07)
[2020-10-25] MEDS: NYSTATIN 100,000 UNIT/ML SUSP 500,000 UNIT/5 ML CUP PO SCH ×4 (08:32→20:21)
--- NOTE | 2020-10-25 09:30 | XR ---
EXAMINATION TYPE: XR chest 2V DATE OF EXAM: 10/25/2020 COMPARISON: 10/24/2020 HISTORY: 75-year-old male pneumonia TECHNIQUE: Frontal and lateral views FINDINGS: Heart remains enlarged. Low lung volumes. Interstitial densities have increased in the interval. Foca l posterior basilar opacity on the left. IMPRESSION: Increasing interstitial infiltrates and focal opacity at the posterior left base. Correlate for multi focal or atypical pneumonia versus pulmonary edema.
--- NOTE | 2020-10-25 09:34 | XR ---
EXAMINATION TYPE: XR thoracic spine complete, XR lumbar spine 2 or 3V DATE OF EXAM: 10/25/2020 Comparison: 02/15/2020 Clinical History: 75-year-old male Thoracic pain, Hx compression Fx Findings: Thoracic spine: 12 rib-bearing thoracic vertebral bodies. Moderate endplate spondylosis throughout. Underlying lung d ensities and osteopenia makes it difficult to clearly delineate many of the vertebral bodies especial ly mid thoracic spine. Gross alignment appears maintained but again, assessment is limited. Lumbar spine: Extensive bowel gas limits assessment on the frontal view. 5 lumbar type vertebral bodies. Variable a nterior wedging deformities from T12 through L4 levels remain unchanged. Hypertrophic facet arthropat hy with grade 1 anterolisthesis redemonstrated at L4-L5. No salty progressive vertebral body height l oss is identified. Moderate degenerative disc disease L5-S1 and [id number] at additional levels . Impression: 1. Thoracic spine: Very limited assessment due to osteopenia and increasing underlying lung densities . 2. Lumbar spine:. Variable anterior wedging deformities from T12 through L4 levels remain relatively unchanged from 02/15/2020. No salty progressive height loss identified. Hypertrophic facet arthropathy with degenerative grade 1 anterolisthesis redemonstrated at L4-L5.
[2020-10-25 10:10] LABS: African American GFR (CKD) 108.5 (60.0-200.0); Non-African American GFR(CKD) 93.6 (60.0-200.0)
--- NOTE | 2020-10-25 11:58 | P.CNOR ---
History of Present Illness - [facility] Consult date: 10/25/20 Consult reason: back pain History of present illness: Patient is seen and examined at bedside he is known to our service. He is a 75-year-old male with multiple medical issues. He presented to the hospital yesterday in regards to shortness of breath and generalized back pain. Patient has significant history of coronary artery disease disease type 2 diabetes rheumatoid arthritis on prednisone, as well as multiple compression fractures at his thoracic and low back. He has history of pulmonary embolism on Xarelto hand is an above-knee amputation on the left. He says that over the past week he has been having worsening pain globally and at his back. He denies any new injury or trauma. He has significant difficulty getting around given his overall medical status and amputation but feels that he has been having more trouble lately. He's been undergoing workup as an outpatient for some swelling and erythema at his right lower extremity and over his foot. He was scheduled to have an MRI of his foot was done. Apparently the patient has been covid negative. Review of Systems History of multiple compression fractures at his thoracic and lumbar spine at T12 L1 L3 and L4, history of chronic thoracic and low back pain. The patient had blood cultures drawn which showed gram-positive cocci and right lower lobe infiltrate on his chest x-ray during his workup here. He also has elevated white count 20 Past Medical History Past Medical History: Coronary Artery Disease (CAD), COPD, Deep Vein Thrombosis (DVT), Hyperlipidemia, Musculoskeletal Disorder, Pneumonia, Pulmonary Embolus (PE), Rheumatoid Arthritis (RA), Vascular Disorder Additional Past Medical History / Comment(s): History of pancreatitis, 2012 past medical record documents viral pericarditis but pt denies, gastritis, Fluid build up rt lung - previous chest tube - pt unsure what it is from, BOTTOM TEETH REMOVED 09-01-18, wounds in his right lower extremity, left fmkwd-[id number]-psxw stump and left elbow. History of multiple compression fractures his thoracic and lumbar spine particularly at T12-L1 and L3 and L4. History of left lower extre mity above-knee amputation History of Any Multi-Drug Resistant Organisms: MRSA Year Discovered:: 11/23/18 MDRO Source:: KNEE Past Surgical History: Heart Catheterization With Stent, Joint Replacement, Orthopedic Surgery Additional Past Surgical History / Comment(s): Total L knee arthroplasty with a spacer in place, R total shoulder replaced, L ankle ORIF d/t fracture, EGD, left rotator cuff repair. right ankle sx, thoracentesis, chest tube rt lung, LT above the knee amputation -2018 Past Anesthesia/Blood Transfusion Reactions: No Reported Reaction Additional Past Anesthesia/Blood Transfusion Reaction / Comm: Pt states he has never recieved blood. Date of Last Stent Placement:: 12/10/16 Past Psychological History: Anxiety, Depression Additional Psychological History / Comment(s): Patient was a smoker one to one and half packs per day for 40+ years and quit 2 years ago when he had cardiac stents done. He uses a synthetic marijuana at nighttime only for his arthritis to help him sleep. He denies any other street drug use, alcohol use. 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 He lives at home with his . Smoking Status: Former smoker Past Alcohol Use History: None Reported Additional Past Alcohol Use History / Comment(s): Patient was a smoker one to one and half packs per day for 40+ years and quit in 2016 when he had cardiac stents done. Past Drug Use History: None Reported - Past Family History Sister(s) Family Medical History: Cancer Additional Family Medical History / Comment(s): pt's father had ra, mother had 16 children was healthy most of her life age 93 from dementia. Mother Family Medical History: Dementia Additional Family Medical History / Comment(s): Mother from dementia at the age of 93 yrs. Father Family Medical History: Rheumatoid Arthritis (RA) Medications and Allergies Home Medications Medication Instructions Recorded Confirmed Type Gabapentin [Neurontin] 300 mg PO TID #9 cap 02/21/20 10/24/20 Rx predniSONE 10 mg PO TID 07/10/20 10/24/20 History Atorvastatin [Lipitor] 40 mg PO HS #90 tab 07/24/20 10/24/20 Rx Metoprolol Tartrate [Lopressor] 50 mg PO DAILY #90 tab 07/24/20 10/24/20 Rx Pantoprazole [Protonix] 40 mg PO BID #180 tablet. 07/24/20 10/24/20 Rx Morphine Sulfate ER [Ms Contin] 15 mg PO DAILY 10/24/20 10/24/20 History Rivaroxaban [Xarelto] 20 mg PO AC-SUPPER 10/24/20 10/24/20 History lisinopriL [Zestril] 5 mg PO DAILY 10/24/20 10/24/20 History oxyCODONE-APAP 10-325MG [Percocet 1 tab PO QID 10/24/20 10/24/20 History 10-325 mg] Allergies Allergy/AdvReac Type Severity Reaction Status Date / Time No Known Allergies Allergy Verified 07/10/20 19:29 Physical Examination Osteopathic Statement: *. No significant issues noted on an osteopathic str uctural exam other than those noted in the History and Physical/Consult. - L Spine: dermatomal strength & reflexes bilateral Strength: hip flexion: 4/5 (His left tukqv-unb-ittn dictation. His right lower extremity has dressing intact particularly of his foot. He has diminished sensation in his lower leg. He is soft and nontender over his lower leg. He has significant pain with any motion globally around his thoracic and low back.) Strength: hip extension: 5/5 (There is no point tenderness over his back. There is no specific skin breakdown at his skin of his back. His abdomen is soft. His upper extremities have adequate motion) Results He just came back up from a bone scan of his lower extremities. There is no report but bone scan does show evidence of increased uptake in his right foot and ankle - Labs Labs: Abnormal Lab Results - Last 24 Hours (Table) 10/24/20 Range/Units 11:41 Plasma Lactic Acid Harsh 3.4 H* (0.7-2.0) mmol/L Microbiology - Last 24 Hours (Table) 10/24/20 05:28 Blood Culture Gram Stain - Preliminary Blood Blood Culture - Preliminary Staphylococcus aureus 10/24/20 05:28 Blood Culture - Final Blood H & H 10/24/20 Range/Units 02:05 Hgb 10.6 L (13.0-17.5) gm/dL Hct 36.1 L (39.0-53.0) % Coagulation 10/24/20 Range/Units 02:41 INR 1.4 H (<1.2) Result Diagrams: 10/24/20 02:05 10/25/20 05:27 - Diagnostic results Lumbar AP/lateral x-ray: report reviewed, image reviewed (New x-rays are done of his thoracic and lumbar spine. They appear to be essentially stable from his prior films. I do not see any new fracture. He has evidence of chronic compression fractures at T12 L1 L3 and L4. I do not see any instability problem.) Assessment and Plan Assessment: Sepsis Pneumonia Chronic compression fractures with deformity at T12 L1 L3 and L4 without any evidence of new fracture Chronic thoracic and low back pain Osteomyelitis right lower extremity History of left lower extremity above-knee agitation Plan: Sepsis Pneumonia Chronic compression fractures with deformity at T12 L1 L3 and L4 without any evidence of new fracture Chronic thoracic and low back pain Osteomyelitis right lower extremity History of left lower extremity above-knee amputation The patient has a number of active acute issues involved currently. He has acute sepsis and has a source from his right ankle osteomyelitis. We're awaiting the final results from the bone scan. He should continue with antibiotics and should continue management through infectious disease as well as with vascular surgery to consider further treatment options in terms of his lower extremity. The patient has chronic compression fractures at his thoracic and lumbar spine does not appear to have any new injury. He has overall malaise over his thoracic and lumbar spine is difficult to pinpoint any new issue. And plan any specific new imaging for his spine or lower back at the present time. He will continue with antibiotics for his multiple infectious issues currently. If he is not having response we can consider further imaging of his thoracic and lumbar spine but he has a source at his right lower extremity to account for her symptoms and sepsis currently. This will be managed further with infectious disease and medicine as well as vascular surgery. He should continue with medical and pain management.
--- NOTE | 2020-10-25 12:28 | NM ---
EXAMINATION TYPE: NM bone 3 phase DATE OF EXAM: 10/25/2020 COMPARISON: No radiographic correlation available HISTORY: 75-year-old male right foot erythema, rule out osteomyelitis. Left xdnmb-qxo-rnpz amputation 5 months ago. TECHNIQUE: Triple phase bone scintigraphy was performed following the injection of 26.3 mCi Tc 99m MD P. Immediate images and 4 hours post injection images acquired. Imaging centered at the distal right lower extremity FINDINGS: While there is no left foot for comparison, initial flow images suggests hyperemia throughout the rig ht foot. Flow images show increased activity at the ankle. There is corresponding increased activity here on both pool and delayed images as well. IMPRESSION: 1. Suspected hyperemia involving the right ankle and foot (no left foot available for comparison). Co rrelate to exclude cellulitis. 2. Three-phase bone scan positive findings at the right ankle. Osteomyelitis or inflammatory arthropa thy (such as RA) are in the differential. Clinically correlate. Consider radiographic correlation.
[2020-10-25] MEDS ORDERED: FUROSEMIDE 10 MG/ML 4 ML VIAL IV STA (17:36)
[2020-10-25] MEDS: ATORVASTATIN 40 MG TAB PO SCH (20:22)
[2020-10-25 20:41] LABS: Glucose,Whole Blood 144 mg/dL (75-99)
--- NOTE | 2020-10-25 22:08 | P.PN ---
Subjective Progress Note Date: 10/25/20 Pt for bone scan today, continues on vancomycin and zosyn. He does continue to complain of severe back pain which is improved with MS contin. He has continued on 125 cc/hr of IV fluids, requiring L oxygen with SpO2 90%. Objective - Vital Signs Vital signs: Vital Signs Temp 98.0 F 10/25/20 13:54 Pulse 103 H 10/25/20 20:24 Resp 21 10/25/20 13:54 BP 153/59 10/25/20 13:54 Pulse Ox 92 L 10/25/20 13:54 Intake & Output 10/25/20 10/25/20 10/26/20 06:59 18:59 06:59 Intake Total 1250 Balance 1250 Intake: IV 1250 Piperacillin-Tazobactam 3 200 .375 gm In Sodium Chloride 0.9% 100 ml @ 25 mls/hr IVPB Q8H SURYA Rx#: [id number] Sodium Chloride 0.9% 1, 800 000 ml @ 100 mls/hr IV . Q10H SURYA Rx#:[id number] Vancomycin 1,500 mg In 250 Sodium Chloride 0.9% 250 ml @ 125 mls/hr IVPB Q12H SURYA Rx#:[id number] Other: Voiding Method External Catheter # Voids 3 1 - Exam General: frail, obese, NAD. On 4 L O2 Lungs: normal respiratory effort, no wheezes or rales CV: Regular rate and rhythm, no murmur. Peripheral pulses 2+ Abdomen: soft, nondistended, no organomegaly Skin: warm and dry. R foot wrapped in gauze with wound to dorsal surface, erythema surrounding - Labs CBC & Chem 7: 10/24/20 02:05 10/25/20 05:27 Labs: Abnormal Lab Results - Last 24 Hours (Table) 10/25/20 Range/Units 20:40 POC Glucose (mg/dL) 144 H (75-99) mg/dL Microbiology - Last 24 Hours (Table) 10/24/20 05:28 Blood Culture Gram Stain - Preliminary Blood Blood Culture - Preliminary Staphylococcus aureus 10/24/20 05:28 Blood Culture - Final Blood Assessment and Plan (1) COPD exacerbation Current Visit: Yes Status: Acute Code(s): J44.1 - CHRONIC OBSTRUCTIVE PULMONARY DISEASE W (ACUTE) EXACERBATION SNOMED Code(s): 244940534 (2) Lactic acidosis Current Visit: Yes Status: Acute Code(s): E87.2 - ACIDOSIS SNOMED Code(s): 92557828 (3) Sepsis Current Visit: Yes Status: Acute Code(s): A41.9 - SEPSIS, UNSPECIFIED ORGANISM SNOMED Code(s): 34440317 (4) Thoracic back pain Current Visit: Yes Status: Acute Code(s): M54.6 - PAIN IN THORACIC SPINE SNOMED Code(s): 565910126 (5) Abdominal pain in male Current Visit: No Status: Acute Code(s): R10.9 - UNSPECIFIED ABDOMINAL PAIN SNOMED Code(s): 89305601 (6) Above knee amputation of left lower extremity Current Visit: No Status: Acute Code(s): S78.112A - COMPLETE TRAUMATIC AMP AT LEVEL BETW LEFT HIP AND KNEE, INIT SNOMED Code(s): 884662301 Plan: Continue with current medications, vancomycin and zosyn. ID following, monitor blood cultures. Stop IV fluids today and will give one time dose of lasix. Continue percocet and MS contin bid. Continue xarelto.
--- NOTE | 2020-10-25 23:56 | CONS ---
CONSULTATION DATE OF SERVICE: 10/25/2020 REASON FOR CONSULTATION: Bacteremia. HISTORY OF PRESENT ILLNESS: The patient is a 75-year-old male with multiple comorbidities in this patient who did have a history of left knee infection requiring amputation of the left leg. Also with chronic nonhealing wound to the dorsum aspect of the right foot currently being treated with Medihoney. The patient presented to [facility] yesterday morning for evaluation of worsening back pain, that has been getting worse for the last one week. The patient denies any history of any trauma. Described the pain to be more of an excruciating nature almost 10 out of 10 in severity with no radiation. The patient has also been complaining of having difficulty moving around his house. The patient denies having any headache or URI symptoms. The patient has been complaining of shortness of breath. Very minimal cough. No sputum production. No nausea, no vomiting. No abdominal pain or any diarrhea. With these symptoms, the patient was evaluated by the ER physician. On arrival to the ER, the patient is afebrile. He did have subsequently fever of 99.9 degrees Fahrenheit. The patient was tachycardic, slightly hypoxic. Did have elevated lactic acid. White count was 19.9, BUN of 28, creatinine 0.76. Electrolytes have been normal. Liver enzymes are normal. Urine was negative. Molina PCR came back negative. The patient did have a chest x-ray increase right correlate with atelectasis versus infection aspiration. The patient did have a thoracolumbar spine x-ray which did show limited examination thoracic spine. Lumbar spine did show deformities from T12-L4, but no new changes. Bone scan has been suspicious for right angle hyperemia and concern for septic arthritis. The patient did have blood cultures drawn which came positive Staph aureus. Patient is being treated on vancomycin and Zosyn. Infectious Disease was consulted for further management of antibiotic therapy. REVIEW OF SYSTEMS: Positive points have been mentioned in HPI. Rest of the systems are negative. PAST MEDICAL HISTORY: Coronary artery disease, COPD, DVT, hyperlipidemia, PE, pneumonia, rheumatoid arthritis, left knee septic arthritis and pancreatitis. PAST SURGICAL HISTORY: PTCA with stent, left [id number] amputation, right foot debridement. SOCIAL HISTORY: Remote history of smoking. No drinking or drug use. FAMILY HISTORY: Sister with a history of cancer. Mother history of dementia. ALLERGIES: No known drug allergies. MEDICATIONS: Include the patient is currently on Tylenol, DuoNeb, Lipitor, Pulmicort, Lopressor, vancomycin pharmacy to dose, morphine sulfate, Mycostatin suspension, Protonix, Xarelto, and Zosyn. PHYSICAL EXAMINATION: Blood pressure 153/59 with a pulse of 101. Temperature 98. He is 92% on 4 L nasal cannula. General description: The patient is an elderly male lying in bed in no distress. No tachypnea or accessory muscles of respiration use. HEENT: Shows pallor. No scleral icterus. Oral mucous membranes dry. No pharyngeal erythema or thrush. NECK: Trachea central. No thyromegaly. LUNGS: Unlabored breathing. Coarse breath sounds bilaterally. No wheeze. HEART S1, S2. Regular rate and rhythm. ABDOMEN: Soft. No tenderness. No guarding. No rigidity. EXTREMITIES: Right foot did have a wound with no significant slough tissue. No surrounding swelling or redness or any foul-smelling drainage. NEUROLOGICAL: Patient is awake, alert, and oriented times three. Mood and affect normal. LABS: Hemoglobin is 10.7, white count 19.8. BUN of 28, creatinine 0.76. Electrolytes have been normal. Liver enzymes are normal. Blood culture with Staph aureus. DIAGNOSTIC IMPRESSION AND PLAN: Patient with Staph aureus bacteremia in this patient who presented to hospital predominantly with generalized body aches especially pain to the back area. X-ray did show some compression deformity, but no new fractures and the patient did have a bone scan did not show any lighting up of the lumbar thoracic spine. Did show some abnormality of the right ankle. However, no significant inflammatory swelling or redness was noticed of the ankle. He did have a wound on the dorsum aspect of the right foot. However, no significant change was noticed. Source of this bacteremia possibly skin versus pneumonia. PLAN: 1. Blood cultures will be repeated to document clearance of his bacteremia. 2. Vancomycin, pharmacy to dose target of 15 while watching his kidney function and watching trough closely. 3. Discontinue Zosyn. 4. We will follow up on clinical condition and culture to further adjust medication if needed. Thank you for this consultation. We will follow this patient along with you. MMODL / IJN: [id number] /
[2020-10-26] MEDS: oxyCODONE-APAP 10-325MG 1 EACH TAB PO PRN ×4 (01:59→21:03)
[2020-10-26] MEDS: SODIUM CHLORIDE 0.9% 1,000 ML IV SCH (05:08)
[2020-10-26] MEDS ORDERED: VANCOMYCIN TROUGH DUE 1 EACH MISC MISCELLANE ONE (06:00)
[2020-10-26] MEDS: VANCOMYCIN 1,500 MG in SODIUM CHLORIDE 0.9% 250 ML IVPB SCH ×2 (06:12→18:03)
[2020-10-26 06:37] LABS: Anisocytosis Slight; Basophils % (A) 0 %; Eosinophils # (A) 0.1 k/uL (0-0.7); Eosinophils % (A) 1 %; Hypochromasia Marked; Lymphocytes % (A) 6 %; MCHC 29.8 g/dL (31.0-37.0); MCV 70.2 fL (80.0-100.0); Mean Platelet Volume 7.4; Microcytosis Marked; Monocytes # (A) 0.4 k/uL (0-1.0); Monocytes % (A) 2 %; Neutrophils # (A) 15.3 k/uL (1.3-7.7); Neutrophils % (A) 90 %; Platelet Count 474 k/uL (150-450); Poikilocytosis Slight; RBC 3.98 m/uL (4.30-5.90); RDW 17.1 % (11.5-15.5)
[2020-10-26 06:47] LABS: HGB 8.3 gm/dL (13.0-17.5)
[2020-10-26 07:26] LABS: Glucose,Whole Blood 100 mg/dL (75-99)
[2020-10-26] MEDS: BUDESONIDE 0.5 MG/2 ML NEBU INHALATION SCH ×2 (07:29→19:27)
[2020-10-26] MEDS: IPRATROPIUM-ALBUTEROL 3 ML NEB INHALATION PRN ×3 (07:29→19:27)
[2020-10-26] MEDS: PANTOPRAZOLE 40 MG TABLET PO SCH ×2 (07:57→16:49)
[2020-10-26] MEDS: METOPROLOL TARTRATE 50 MG TAB PO SCH (07:57)
[2020-10-26] MEDS: RIVAROXABAN 20 MG TAB PO SCH (07:57)
[2020-10-26] MEDS: NYSTATIN 100,000 UNIT/ML SUSP 500,000 UNIT/5 ML CUP PO SCH ×4 (07:58→20:57)
[2020-10-26] MEDS: MORPHINE SULFATE ER 15 MG TABLET PO SCH ×2 (07:58→20:57)
[2020-10-26 09:55] LABS: Erythrocyte Sedimentation Rate 127 mm/Hr (0-20)
[2020-10-26 10:47] LABS: African American GFR (CKD) 108.5 (60.0-200.0); Albumin 2.8 g/dL (3.80-4.90); Albumin/Globulin Ratio 1.22 (1.60-3.17); Anion Gap 10.9 mmol/L (4.00-12.00); BUN/Creat Ratio 21.43 Ratio (12.00-20.00); C Reactive Protein 32.2 mg/dL (0.0-0.8); Calcium 8.4 mg/dL (8.7-10.3); Carbon Dioxide 25.1 mmol/L (21.6-31.8); Globulin 2.3 g/dL (1.6-3.3); Non-African American GFR(CKD) 93.6 (60.0-200.0); Potassium 3.4 mmol/L (3.5-5.5); Total Bilirubin 0.5 mg/dL (0.3-1.2); Total Protein 5.1 g/dL (6.2-8.2)
[2020-10-26] MEDS ORDERED: Potassium Replacement Protocol 1 EACH MISC MISCELLANE PRN ×2 (10:51→14:18)
[2020-10-26] MEDS ORDERED: POTASSIUM CHLORIDE ER 10 MEQ TAB.ER.PRT PO SCH (11:00)
[2020-10-26] MEDS: POTASSIUM CHLORIDE ER 10 MEQ TAB.ER.PRT PO SCH ×2 (11:32→12:00)
[2020-10-26] MEDS ORDERED: Magnesium Replacement Protocol 1 EACH MISC MISCELLANE PRN (14:19)
--- NOTE | 2020-10-26 14:32 | P.PN ---
Subjective Progress Note Date: 10/26/20 Assessment a 5-year-old gentleman admitted with multiple medical issues including uncontrollable pain especially of the back,sepsis, bacteremia. Underwent bone scan yesterday reporting suspected hyperemia involving right ankle and foot, positive findings at the right ankle; osteomyelitis or inflammatory arthropathia such as RA. Evaluated by orthopedic surgery and ID, recommendations noted and appreciated. Antibiotics further adjusted, maintaining vancomycin and discontinuing Zosyn. Renal function remains stable. Blood cultures repeated and pending. CRP elevated at 32. 2. alk phos down to 142. Potassium 3.4. Blood sugars controlled. Afebrile, WBC trending down,17. tachycardic. Yesterday IV fluids discontinued, received 1 dose of Lasix. Maintaining O2 sats in the 90s on 4 L nasal cannula. Anticoagulated on Xarelto. Pain better controlled today. Objective - Vital Signs Vital signs: Vital Signs Temp 98.3 F 10/26/20 08:00 Pulse 74 10/26/20 08:00 Resp 22 10/26/20 08:00 BP 170/91 10/26/20 08:00 Pulse Ox 96 10/26/20 08:00 Intake & Output 10/25/20 10/26/20 10/26/20 18:59 06:59 18:59 Intake Total 1250 250 Balance 1250 250 Intake: IV 1250 250 Piperacillin-Tazobactam 3 200 .375 gm In Sodium Chloride 0.9% 100 ml @ 25 mls/hr IVPB Q8H [facility] Rx#: [id number] Sodium Chloride 0.9% 1, 800 000 ml @ 20 mls/hr IV . Q24H [facility] Rx#:[id number] Vancomycin 1,500 mg In 250 250 Sodium Chloride 0.9% 250 ml @ 125 mls/hr IVPB Q12H [facility] Rx#:[id number] Other: Voiding Method Urinal Diaper Incontinent # Voids 1 2 - Exam - Exam General: frail, obese, NAD. On 4 L O2 Lungs: normal respiratory effort, diminished air entry, no wheezes or rales CV: Regular rate and rhythm, no murmur. Peripheral pulses 2+ Abdomen: soft, nondistended, no organomegaly Skin: warm and dry. R foot wrapped in gauze with wound to dorsal surface, erythema surrounding Microbiology 10/24/20 05:28 Blood Blood Culture Gram Stain - Final 10/24/20 05:28 Blood Blood Culture - Final Staphylococcus aureus 10/24/20 05:28 Blood Blood Culture - Final - Labs CBC & Chem 7: 10/26/20 05:28 10/26/20 05:28 Labs: Abnormal Lab Results - Last 24 Hours (Table) 10/25/20 10/26/20 10/26/20 Range/Units 20:40 05:28 05:28 WBC 17.0 H (3.8-10.6) k/uL RBC 3.98 L (4.30-5.90) m/uL Hgb 8.3 L D (13.0-17.5) gm/dL Hct 28.0 L (39.0-53.0) % MCV 70.2 L (80.0-100.0) fL MCH 21.0 L (25.0-35.0) pg MCHC 29.8 L (31.0-37.0) g/dL RDW 17.1 H (11.5-15.5) % Plt Count 474 H (150-450) k/uL Neutrophils # 15.3 H (1.3-7.7) k/uL ESR 127 H (0-20) mm/Hr Potassium 3.4 L (3.5-5.5) mmol/L BUN/Creatinine Ratio 21.43 H (12.00-20.00) Ratio POC Glucose (mg/dL) 144 H (75-99) mg/dL Calcium 8.4 L (8.7-10.3) mg/dL Alkaline Phosphatase 142 H (41-126) U/L C-Reactive Protein 32.2 H (0.0-0.8) mg/dL Total Protein 5.1 L (6.2-8.2) g/dL Albumin 2.80 L (3.80-4.90) g/dL Albumin/Globulin Ratio 1.22 L (1.60-3.17) g/dL 10/26/20 Range/Units 07:24 WBC (3.8-10.6) k/uL RBC (4.30-5.90) m/uL Hgb (13.0-17.5) gm/dL Hct (39.0-53.0) % MCV (80.0-100.0) fL MCH (25.0-35.0) pg MCHC (31.0-37.0) g/dL RDW (11.5-15.5) % Plt Count (150-450) k/uL Neutrophils # (1.3-7.7) k/uL ESR (0-20) mm/Hr Potassium (3.5-5.5) mmol/L BUN/Creatinine Ratio (12.00-20.00) Ratio POC Glucose (mg/dL) 100 H (75-99) mg/dL Calcium (8.7-10.3) mg/dL Alkaline Phosphatase (41-126) U/L C-Reactive Protein (0.0-0.8) mg/dL Total Protein (6.2-8.2) g/dL Albumin (3.80-4.90) g/dL Albumin/Globulin Ratio (1.60-3.17) g/dL Microbiology - Last 24 Hours (Table) 10/24/20 05:28 Blood Culture Gram Stain - Final Blood Blood Culture - Final Staphylococcus aureus Assessment and Plan Assessment: Sepsis secondary to bacteremia, etiology unclear, possible skin, possible pneumonia. Bone scan reporting suspected hyperemia involving right ankle and foot, positive findings at the right ankle; osteomyelitis or inflammatory arthropathia such as RA. Infectious disease and orthopedic surgery following. Acute COPD exacerbation Lactic acidosis Thoracic back pain Rheumatoid arthritis Chronic compression fractures with deformity at T12 L1 L3 and L4 without any evidence of new fracture Chronic thoracic and low back pain History of left lower extremity AKA Plan: Continue on current medication regime, monitoring and symptomatic treatment. Repeat blood cultures in progress. Wound care/antibiotics as per infectious disease. Close monitoring of renal function, repeat labs ordered for a.m. Pain management. The impression and plan of care has been dictated as directed. : I performed a history and examination of this patient, discussed the same with the dictator. I agree with the dictator's note ,documented as a scribe. Any additional findings or plans will be noted.
[2020-10-26] MEDS: MAGNESIUM SULFATE-D5W PMX 1 GM in DEXTROSE/WATER 1 100ML.BAG IVPB SCH ×2 (15:44→16:49)
[2020-10-26 20:57] LABS: Glucose,Whole Blood 104 mg/dL (75-99)
[2020-10-26] MEDS: ATORVASTATIN 40 MG TAB PO SCH (20:58)
--- NOTE | 2020-10-26 22:33 | PN ---
PROGRESS NOTE DATE OF SERVICE: 10/26/2020 REASON FOR FOLLOWUP: MSSA bacteremia. INTERVAL HISTORY: The patient is currently afebrile. The patient is breathing comfortably. The patient remains lethargic, unable to provide any history. No vomiting or diarrhea or any other changes reported by the nursing staff. PHYSICAL EXAMINATION: Blood pressure 170/91 with a pulse of 74, temperature 98.3. He is 96% on 4 L nasal cannula. General description is an elderly male lying in bed in no distress. RESPIRATORY SYSTEM: Unlabored breathing with decreased breath sounds at the base. No wheeze. HEART: S1, S2. Regular rate and rhythm. ABDOMEN: Soft. No tenderness. EXTREMITIES: No edema of the feet. LABS: Hemoglobin 8.3, white count 17. BUN of 15, creatinine 0.7. DIAGNOSTIC IMPRESSION AND PLAN: Patient with MSSA bacteremia; source possible skin versus pneumonia. Repeat blood culture so far pending. Antibiotic was switched over to cefazolin 2 grams q.8 hours and we will monitor his clinical course closely. Continue supportive care. MMSILVANOL / CAMILLEN: [id number] /
[2020-10-27] MEDS: oxyCODONE-APAP 10-325MG 1 EACH TAB PO PRN ×5 (00:50→19:51)
[2020-10-27] MEDS: SODIUM CHLORIDE 0.9% 1,000 ML IV SCH (04:41)
[2020-10-27] MEDS: MORPHINE SULFATE ER 15 MG TABLET PO SCH ×3 (06:16→21:59)
[2020-10-27 06:21] LABS: Anisocytosis Slight; HCT 28.5 % (39.0-53.0); HGB 8.4 gm/dL (13.0-17.5); Hypochromasia Marked; MCH 21.2 pg (25.0-35.0); MCHC 29.5 g/dL (31.0-37.0); MCV 71.7 fL (80.0-100.0); Mean Platelet Volume 7.8; Microcytosis Moderate; Platelet Count 399 k/uL (150-450); Poikilocytosis Slight; RBC 3.97 m/uL (4.30-5.90); RDW 17.1 % (11.5-15.5); WBC 13.5 k/uL (3.8-10.6)
[2020-10-27] MEDS: BUDESONIDE 0.5 MG/2 ML NEBU INHALATION SCH ×2 (07:16→18:54)
[2020-10-27] MEDS: IPRATROPIUM-ALBUTEROL 3 ML NEB INHALATION PRN ×4 (07:16→18:54)
[2020-10-27] MEDS: METOPROLOL TARTRATE 50 MG TAB PO SCH (08:45)
[2020-10-27] MEDS: RIVAROXABAN 20 MG TAB PO SCH (08:45)
[2020-10-27] MEDS: PANTOPRAZOLE 40 MG TABLET PO SCH ×2 (08:45→16:05)
[2020-10-27] MEDS: NYSTATIN 100,000 UNIT/ML SUSP 500,000 UNIT/5 ML CUP PO SCH ×4 (08:46→19:52)
[2020-10-27 09:51] LABS: African American GFR (CKD) 102.7 (60.0-200.0); Anion Gap 11.8 mmol/L (4.00-12.00); Calcium 8.1 mg/dL (8.7-10.3); Carbon Dioxide 23.2 mmol/L (21.6-31.8); Magnesium 1.9 mg/dL (1.5-2.4); Non-African American GFR(CKD) 88.6 (60.0-200.0); Potassium 3.6 mmol/L (3.5-5.5)
--- NOTE | 2020-10-27 13:56 | P.PN ---
Subjective Progress Note Date: 10/27/20 Assessment a 5-year-old gentleman admitted with multiple medical issues including uncontrollable pain especially of the back,sepsis, bacteremia. Underwent bone scan yesterday reporting suspected hyperemia involving right ankle and foot, positive findings at the right ankle; osteomyelitis or inflammatory arthropathia such as RA. Evaluated by orthopedic surgery and ID, recommendations noted and appreciated. Antibiotics further adjusted, maintaining vancomycin and discontinuing Zosyn. Renal function remains stable. Blood cultures repeated and pending. CRP elevated at 32. 2. alk phos down to 142. Potassium 3.4. Blood sugars controlled. Afebrile, WBC trending down,17. tachycardic. Yesterday IV fluids discontinued, received 1 dose of Lasix. Maintaining O2 sats in the 90s on 4 L nasal cannula. Anticoagulated on Xarelto. Pain better controlled today. 10/27/2019 Blood cultures reporting MSSA,antibiotics changed to cefazolin. Repeat blood cultures reporting gram-positive cocci in clusters. Afebrile. Complains of increased pain this morning on current regimen. Maintaining O2 sats in the 90s on 4 L nasal cannula. Denies cough. Staff reports patient's diet intake poor yesterday. Creatinine 0.8. No nausea, vomiting or diarrhea. Objective - Vital Signs Vital signs: Vital Signs Temp 98.3 F 10/27/20 08:00 Pulse 104 H 10/27/20 11:17 Resp 20 10/27/20 08:00 BP 131/82 10/27/20 08:00 Pulse Ox 92 L 10/27/20 08:00 Intake & Output 10/26/20 10/27/20 10/27/20 18:59 06:59 18:59 Intake Total 250 Output Total 400 Balance -150 Intake: IV 250 Vancomycin 1,500 mg In 250 Sodium Chloride 0.9% 250 ml @ 125 mls/hr IVPB Q12H [facility] Rx#:[id number] Output: Urine 400 Other: Voiding Method Urinal Urinal Diaper Diaper Incontinent Incontinent # Voids 3 # Bowel Movements 1 - Exam - Exam General: frail, obese, NAD. On 4 L O2 Lungs: normal respiratory effort, diminished air entry, no wheezes, bibasilar rales CV: Regular rate and rhythm, no murmur. Peripheral pulses 2+ Abdomen: soft, nondistended, no organomegaly Skin: warm and dry. R foot gauze dressing clean dry and intact. Microbiology 10/26/20 05:28 Blood Blood Culture - Final 10/24/20 05:28 Blood Blood Culture Gram Stain - Final 10/24/20 05:28 Blood Blood Culture - Final Staphylococcus aureus 10/24/20 05:28 Blood Blood Culture - Final - Labs CBC & Chem 7: 10/27/20 06:10 10/27/20 06:10 Labs: Abnormal Lab Results - Last 24 Hours (Table) 10/26/20 10/27/20 10/27/20 Range/Units 20:56 06:10 06:10 WBC 13.5 H (3.8-10.6) k/uL RBC 3.97 L (4.30-5.90) m/uL Hgb 8.4 L (13.0-17.5) gm/dL Hct 28.5 L (39.0-53.0) % MCV 71.7 L (80.0-100.0) fL MCH 21.2 L (25.0-35.0) pg MCHC 29.5 L (31.0-37.0) g/dL RDW 17.1 H (11.5-15.5) % POC Glucose (mg/dL) 104 H (75-99) mg/dL Calcium 8.1 L (8.7-10.3) mg/dL Microbiology - Last 24 Hours (Table) 10/26/20 05:28 Blood Culture - Final Blood 10/24/20 05:28 Blood Culture Gram Stain - Final Blood Blood Culture - Final Staphylococcus aureus Assessment and Plan Assessment: Sepsis secondary to MSSA bacteremia, etiology unclear, possible skin, possible pneumonia. Repeat culture reports gram-positive cocci in clusters. Bone scan reporting suspected hyperemia involving right ankle and foot, positive findings at the right ankle; osteomyelitis or inflammatory arthropathia such as RA. Infectious disease and orthopedic surgery following. Acute COPD exacerbation Acute hypoxic respiratory failure, multifactorial, secondary to the above and to bacteremia, sepsis. Atelectasis Lactic acidosis Thoracic back pain Rheumatoid arthritis Chronic compression fractures with deformity at T12 L1 L3 and L4 without any evidence of new fracture Chronic thoracic and low back pain History of left lower extremity AKA Plan: Continue on current medication regime, monitoring and symptomatic treatm ent. Aggressive pulmonary toileting with incentive spirometer ordered . Poor diet intake, IV fluids increased. Pain management, med regimen adjusted;increase MS Contin to 3 times a day in addition to Percocet .Wound care/antibiotics as per infectious disease. Close monitoring of renal function, lytes, coags,repeat labs ordered for a.m. The impression and plan of care has been dictated as directed. : I performed a history and examination of this patient, discussed the same with the dictator. I agree with the dictator's note ,documented as a scribe. Any additional findings or plans will be noted.
[2020-10-27] MEDS: ATORVASTATIN 40 MG TAB PO SCH (19:51)
--- NOTE | 2020-10-27 22:37 | PN ---
PROGRESS NOTE DATE OF SERVICE: 10/27/2020 REASON FOR FOLLOWUP: MSSA bacteremia. INTERVAL HISTORY: The patient is currently afebrile, has been breathing comfortably. He seemed to be more awake and alert today; however, was unable to provide a reliable history. No vomiting, diarrhea or any other changes reported by the nursing staff. PHYSICAL EXAMINATION: Blood pressure 157/89, pulse of 120, temperature 99.4. He is 98% on 5 L nasal cannula. General description is an elderly male lying in bed in no distress. RESPIRATORY SYSTEM: Unlabored breathing with decreased breath sounds at the base. No wheeze. HEART: S1, S2. Regular rate and rhythm. ABDOMEN: Soft. No tenderness. EXTREMITIES: Right foot is currently dressed. No drainage on the dressing. LABS: Blood culture from yesterday positive as well. DIAGNOSTIC IMPRESSION AND PLAN: Patient with MSSA bacteremia. Source is possibly pneumonia versus right lower extremity wound, cellulitis. The patient is covered with cefazolin. Blood culture will be repeated to document clearance of his bacteremia, and we will monitor his clinical course closely. MMODL / IJN: [id number] /
[2020-10-28] MEDS: oxyCODONE-APAP 10-325MG 1 EACH TAB PO PRN ×4 (00:08→13:01)
[2020-10-28] MEDS: SODIUM CHLORIDE 0.9% 1,000 ML IV SCH ×2 (03:42→21:02)
[2020-10-28 06:28] LABS: Anisocytosis Slight; Basophils % (A) 0 %; Eosinophils # (A) 0.1 k/uL (0-0.7); Eosinophils % (A) 0 %; HCT 28.3 % (39.0-53.0); HGB 8.3 gm/dL (13.0-17.5); Hypochromasia Marked; Lymphocytes # (A) 1.4 k/uL (1.0-4.8); Lymphocytes % (A) 9 %; MCHC 29.3 g/dL (31.0-37.0); MCV 71.6 fL (80.0-100.0); Mean Platelet Volume 7.7; Microcytosis Moderate; Monocytes # (A) 0.6 k/uL (0-1.0); Monocytes % (A) 4 %; Neutrophils # (A) 13.3 k/uL (1.3-7.7); Neutrophils % (A) 85 %; Platelet Count 440 k/uL (150-450); Poikilocytosis Slight; RBC 3.95 m/uL (4.30-5.90); RDW 16.9 % (11.5-15.5); WBC 15.6 k/uL (3.8-10.6)
[2020-10-28] MEDS: METOPROLOL TARTRATE 50 MG TAB PO SCH (07:54)
[2020-10-28] MEDS: PANTOPRAZOLE 40 MG TABLET PO SCH ×2 (07:54→16:39)
[2020-10-28] MEDS: MORPHINE SULFATE ER 15 MG TABLET PO SCH ×3 (07:55→21:09)
[2020-10-28] MEDS: NYSTATIN 100,000 UNIT/ML SUSP 500,000 UNIT/5 ML CUP PO SCH ×4 (08:31→21:08)
[2020-10-28] MEDS: RIVAROXABAN 20 MG TAB PO SCH (08:31)
[2020-10-28] MEDS: IPRATROPIUM-ALBUTEROL 3 ML NEB INHALATION PRN ×4 (08:36→20:43)
[2020-10-28] MEDS: BUDESONIDE 0.5 MG/2 ML NEBU INHALATION SCH ×2 (08:36→20:43)
[2020-10-28 10:21] LABS: African American GFR (CKD) 102.7 (60.0-200.0); Anion Gap 11.9 mmol/L (4.00-12.00); BUN/Creat Ratio 21.25 Ratio (12.00-20.00); Calcium 8.3 mg/dL (8.7-10.3); Carbon Dioxide 24.1 mmol/L (21.6-31.8); Non-African American GFR(CKD) 88.6 (60.0-200.0); Potassium 3.6 mmol/L (3.5-5.5)
[2020-10-28] MEDS: methylPREDNISolone SOD SUCCI 40 MG/ML 1 ML VIAL IV SCH ×2 (13:00→19:55)
--- NOTE | 2020-10-28 14:07 | P.PN ---
Subjective On-call hospitalist covering Dr. Steven This is a pleasant 75 years old male with multiple medical problems as below, including coronary artery disease status post stent, COPD, DVTs thrombosis, hyperlipidemia, pulmonary embolism, rheumatoid arthritis, history of pancreatitis. Status post left BKA. His from home where he lives with his family and . Presents with altered mental status and found to have positive blood culture with MSSA suspected to be from his right leg infection versus pneumonia with infectious disease on the case and his been covered with antibiotics with cefazolin Today he's fully awake and oriented, looks slightly lethargic but he follows up as an disorder to her surroundings. Today he is fully awake and oriented, lying in bed with no distress, he is slightly tachypneic, he denies coughing or phlegm production, he denies chest pain, he states that his dyspnea is better today. However on examination he has wheezing, patient states he smoked a lot before for more than 50 years. Currently patient desaturated 90s on 5 with oxygen via nasal cannula, is slightly tachycardic at 111 Labs showed leukocytosis of 15 K. Bone scan showing possible osteomyelitis of the right ankle Objective - Vital Signs Vital signs: Vital Signs Temp 98.0 F 10/28/20 08:00 Pulse 111 H 10/28/20 12:13 Resp 18 10/28/20 12:13 BP 133/80 10/28/20 08:00 Pulse Ox 96 10/28/20 08:00 Intake & Output 10/27/20 10/28/20 10/28/20 18:59 06:59 18:59 Other: Voiding Method Urinal Urinal Diaper Diaper Incontinent Incontinent # Voids 2 1 - Labs CBC & Chem 7: 10/28/20 05:58 10/28/20 05:58 Labs: Abnormal Lab Results - Last 24 Hours (Table) 10/28/20 10/28/20 Range/Units 05:58 05:58 WBC 15.6 H (3.8-10.6) k/uL RBC 3.95 L (4.30-5.90) m/uL Hgb 8.3 L (13.0-17.5) gm/dL Hct 28.3 L (39.0-53.0) % MCV 71.6 L (80.0-100.0) fL MCH 21.0 L (25.0-35.0) pg MCHC 29.3 L (31.0-37.0) g/dL RDW 16.9 H (11.5-15.5) % Neutrophils # 13.3 H (1.3-7.7) k/uL BUN/Creatinine Ratio 21.25 H (12.00-20.00) Ratio Calcium 8.3 L (8.7-10.3) mg/dL Microbiology - Last 24 Hours (Table) 10/26/20 05:28 Blood Culture Gram Stain - Preliminary Blood Blood Culture - Preliminary Presumptive Staph aureus Assessment and Plan Assessment: Right leg infection and cellulitis, possible osteomyelitis of the right ankle per Bone scan MSSA bacteremia secondary to cellulitis versus pneumonia History of DVT/PE. Acute COPD exacerbation and possible pneumonia Chronic Rheumatoid arthritis Chronic compression fractures with deformity at T12 L1 L3 and L4 without any evidence of new fracture Chronic back pain History of left lower extremity AKA Plan: THIS IS A PLEASANT 75 YEARS OLD MALE WHO PRESENTS WITH PNEUMONIA, CELLULITIS, POSITIVE BLOOD CULTURE AND POSSIBLE COPD. Continue with antibiotics cefazolin as per ID team recommendation. Follow-up culture results. Monitor case clinically. Iv Solu-Medrol Has been added. Continue with oxygen as needed Labs and medication were reviewed.. Continue same treatment. Continue with symptomatic treatment. Resume home medication. Monitor lytes and vitals. DVT and GI prophylaxis. Further recommendationsas per clinical course of the patient DVT prophylaxis: xarelto GI Prophylaxis: Ppi Prognosis is guarded
--- NOTE | 2020-10-28 16:40 | PN ---
PROGRESS NOTE DATE OF SERVICE: 10/28/2020 REASON FOR FOLLOWUP: MSSA bacteremia. INTERVAL HISTORY: The patient is currently afebrile. The patient is slightly more awake and alert. He is complaining of more pain in the low back area. Denies any chest pain or shortness of breath. Minimal cough. No abdominal pain. No diarrhea. PHYSICAL EXAMINATION: Blood pressure 127/71 with a pulse of 104, temperature 98. He is 92% on 4 L nasal cannula. General description is an elderly male lying in bed in no distress. Respiratory system: Unlabored breathing, decreased breath sounds in the base, with no wheeze. Heart S1, S2. Regular rate and rhythm. Abdomen soft, no tenderness. LABS: Hemoglobin 8.8, white count 13.6, BUN of 17, creatinine 0.8. DIAGNOSTIC IMPRESSION AND PLAN: Patient with MSSA bacteremia. Concern for possible pneumonia versus a right foot wound infection. Blood culture repeat will be followed. For now, continue cefazolin and monitor clinical course closely. MMODL / IJN: [id number] /
[2020-10-28] MEDS: ATORVASTATIN 40 MG TAB PO SCH (19:55)
[2020-10-29] MEDS: methylPREDNISolone SOD SUCCI 40 MG/ML 1 ML VIAL IV SCH ×3 (04:45→20:49)
[2020-10-29 06:58] LABS: Glucose,Whole Blood 131 mg/dL (75-99)
[2020-10-29] MEDS: BUDESONIDE 0.5 MG/2 ML NEBU INHALATION SCH ×2 (08:06→20:15)
[2020-10-29] MEDS: IPRATROPIUM-ALBUTEROL 3 ML NEB INHALATION PRN ×4 (08:06→20:15)
[2020-10-29] MEDS: RIVAROXABAN 20 MG TAB PO SCH (08:53)
[2020-10-29] MEDS: PANTOPRAZOLE 40 MG TABLET PO SCH ×2 (08:54→16:22)
[2020-10-29] MEDS: MORPHINE SULFATE ER 15 MG TABLET PO SCH ×3 (08:54→20:49)
[2020-10-29] MEDS: METOPROLOL TARTRATE 50 MG TAB PO SCH (08:55)
[2020-10-29] MEDS: NYSTATIN 100,000 UNIT/ML SUSP 500,000 UNIT/5 ML CUP PO SCH ×4 (08:56→20:49)
--- NOTE | 2020-10-29 11:15 | P.PN ---
Subjective On-call hospitalist covering Dr. Steven This is a pleasant 75 years old male with multiple medical problems as below, including coronary artery disease status post stent, COPD, DVTs thrombosis, hyperlipidemia, pulmonary embolism, rheumatoid arthritis, history of pancreatitis. Status post left BKA. His from home where he lives with his family and . Presents with altered mental status and found to have positive blood culture with MSSA suspected to be from his right leg infection versus pneumonia with infectious disease on the case and his been covered with antibiotics with cefazolin Today he's fully awake and oriented, looks slightly lethargic but he follows up as an disorder to her surroundings. Today he is fully awake and oriented, lying in bed with no distress, he is slightly tachypneic, he denies coughing or phlegm production, he denies chest pain, he states that his dyspnea is better today. However on examination he has wheezing, patient states he smoked a lot before for more than 50 years. Currently patient desaturated 90s on 5 with oxygen via nasal cannula, is slightly tachycardic at 111 Labs showed leukocytosis of 15 K. Bone scan showing possible osteomyelitis of the right ankle 10/29/2020 Patient lying in bed most of the time, is not in respiratory distress at rest however become dyspneic as he talks. He is saturating 98% on 3 L oxygen via nasal cannula, as per staff with Dr. mackay patient is on 3 L oxygen at home. Also there is evidence of possible osteomyelitis for his right foot ankle infection. Patient is covered with cefazolin for both infections. Also patient on Solu- Medrol and normal/at 50 mL Chest x-ray: Interstitial infiltrate and left lower lobe opacity against pulmonary edema No labs from today Continue with his R little for his history of DVT and PE. Objective - Vital Signs Vital signs: Vital Signs Temp 97.8 F 10/29/20 07:40 Pulse 94 10/29/20 08:17 Resp 18 10/29/20 08:17 BP 165/86 10/29/20 07:40 Pulse Ox 98 10/29/20 07:40 Intake & Output 10/28/20 10/29/20 10/29/20 18:59 06:59 18:59 Intake Total 120 Balance 120 Intake: Oral 120 Other: Voiding Method Urinal Urinal Urinal Diaper Diaper Diaper Incontinent Incontinent Incontinent # Voids 2 2 - Exam GENERAL: The patient is alert and oriented x3, not in any acute distress. Well developed, well nourished. HEENT: Pupils are round and equally reacting to light. EOMI. No scleral icterus. No conjunctival pallor. Normocephalic, atraumatic. No pharyngeal erythema. No thyromegaly. CARDIOVASCULAR: S1 and S2 present. No murmurs, rubs, or gallops. PULMONARY: Chest is clear to auscultation, no wheezing or crackles. ABDOMEN: Soft, nontender, nondistended, normoactive bowel sounds. No palpable organomegaly. MUSCULOSKELETAL: No joint swelling or deformity. -EXTREMITIES: No cyanosis, clubbing, or pedal edema. Right ankle wound, left AKA NEUROLOGICAL: Gross neurological examination did not reveal any focal deficits. SKIN: No rashes. no petechiae. - Labs CBC & Chem 7: 10/28/20 05:58 10/28/20 05:58 Labs: Abnormal Lab Results - Last 24 Hours (Table) 10/29/20 Range/Units 06:56 POC Glucose (mg/dL) 131 H (75-99) mg/dL Microbiology - Last 24 Hours (Table) 10/28/20 05:58 Blood Culture - Preliminary Blood No Growth after 24 hours 10/26/20 05:28 Blood Culture Gram Stain - Final Blood Blood Culture - Final Staphylococcus aureus Assessment and Plan Assessment: Right leg infection and cellulitis, possible osteomyelitis of the right ankle per Bone scan MSSA bacteremia secondary to cellulitis versus pneumonia History of DVT/PE. Acute COPD exacerbation and possible pneumonia Chronic Rheumatoid arthritis Chronic compression fractures with deformity at T12 L1 L3 and L4 without any e vidence of new fracture Chronic back pain History of left lower extremity AKA Plan: THIS IS A PLEASANT 75 YEARS OLD MALE WHO PRESENTS WITH PNEUMONIA, CELLULITIS, POSITIVE BLOOD CULTURE AND POSSIBLE COPD. Continue with antibiotics cefazolin as per ID team recommendation. Follow-up culture results. Monitor case clinically. Iv Solu-Medrol Has been added. Continue with oxygen as needed Labs and medication were reviewed.. Continue same treatment. Continue with s ymptomatic treatment. Resume home medication. Monitor lytes and vitals. DVT and GI prophylaxis. Further recommendationsas per clinical course of the patient DVT prophylaxis: xarelto GI Prophylaxis: Ppi Prognosis is guarded
[2020-10-29 11:25] LABS: Glucose,Whole Blood 208 mg/dL (75-99)
[2020-10-29] MEDS: SODIUM CHLORIDE 0.9% 1,000 ML IV SCH (12:16)
[2020-10-29 16:44] LABS: Glucose,Whole Blood 193 mg/dL (75-99)
[2020-10-29] MEDS: oxyCODONE-APAP 10-325MG 1 EACH TAB PO PRN (17:59)
[2020-10-29] MEDS: ATORVASTATIN 40 MG TAB PO SCH (20:50)
--- NOTE | 2020-10-29 21:33 | PN ---
PROGRESS NOTE DATE OF SERVICE: 10/29/2020 REASON FOR FOLLOWUP: MSSA bacteremia. INTERVAL HISTORY: Patient is currently afebrile. The patient seems to be slightly more awake and alert. He is breathing comfortably. Denies any chest pain. Minimal cough. No abdominal pain. No diarrhea or worsening pain to the right foot. PHYSICAL EXAMINATION: Blood pressure 136/80 with a pulse of 98, temperature 98.6. He is 94% on 3 L nasal cannula. General description is an elderly male lying in bed in no distress. Respiratory system: Unlabored breathing with decreased breath sounds in the bases. No wheeze. Heart S1, S2. Regular rate and rhythm. ABDOMEN: Soft. No tenderness. LABS: No new labs have been obtained today. Blood cultures from yesterday positive as well. DIAGNOSTIC IMPRESSION AND PLAN: Patient with MSSA bacteremia in this patient who did have evidence of persistent bacteremia and vascular sources ruled out. We will obtain an echocardiogram and may need a DAMARIS. Bone scan reviewed with radiologist. Continue with cefazolin and monitor clinical course closely. MMODL / IJN: [id number] /
[2020-10-30] MEDS: oxyCODONE-APAP 10-325MG 1 EACH TAB PO PRN ×4 (00:09→20:49)
[2020-10-30] MEDS: methylPREDNISolone SOD SUCCI 40 MG/ML 1 ML VIAL IV SCH ×3 (03:57→20:47)
[2020-10-30 06:55] LABS: Glucose,Whole Blood 194 mg/dL (75-99)
[2020-10-30] MEDS: IPRATROPIUM-ALBUTEROL 3 ML NEB INHALATION PRN ×4 (07:58→19:43)
[2020-10-30] MEDS: BUDESONIDE 0.5 MG/2 ML NEBU INHALATION SCH ×2 (07:58→19:43)
[2020-10-30] MEDS: NYSTATIN 100,000 UNIT/ML SUSP 500,000 UNIT/5 ML CUP PO SCH ×4 (08:33→20:47)
[2020-10-30] MEDS: METOPROLOL TARTRATE 50 MG TAB PO SCH (08:33)
[2020-10-30] MEDS: MORPHINE SULFATE ER 15 MG TABLET PO SCH ×3 (08:34→20:46)
[2020-10-30] MEDS: PANTOPRAZOLE 40 MG TABLET PO SCH ×2 (08:34→15:47)
[2020-10-30] MEDS: RIVAROXABAN 20 MG TAB PO SCH (08:35)
--- NOTE | 2020-10-30 11:16 | ECHOF ---
Referral Reason:bacteremia MEASUREMENTS -------- HEIGHT: 170.2 cm WEIGHT: 79.4 kg BP: 138/70 RVIDd: 2.9 cm (< 3.3) IVSd: 1.5 cm (0.6 - 1.1) LVIDd: 4.7 cm (3.9 - 5.3) LVPWd: 1.4 cm (0.6 - 1.1) IVSs: 1.9 cm LVIDs: 3.1 cm LVPWs: 1.5 cm LA Diam: 3.2 cm (2.7 - 3.8) Ao Diam: 3.7 cm (2.0 - 3.7) AV Cusp: 1.8 cm (1.5 - 2.6) MV EXCURSION: 14.577 mm (> 18.000) MV EF SLOPE: 32 mm/s (70 - 150) EPSS: 1.8 cm MV E Laurent: 0.88 m/s MV DecT: 120 ms MV A Laurent: 1.01 m/s MV E/A Ratio: 0.88 RAP: 5.00 mmHg RVSP: 49.52 mmHg FINDINGS -------- Sinus rhythm. This was a technically difficult study with suboptimal views. Left ventricular wall thickness is normal. Overall left ventricular systolic function is low-normal with, an EF between 50 - 55 %. The right ventricle is normal in size. The left atrium is normal in size. The right atrial size is normal. 3 ml of Lumason was utilized for enhancement of images. Lipomatous Hypertrophy of the atrial septum is present Aortic valve is trileaflet and is mildly thickened. Mild mitral annular calcification present. Mild mitral regurgitation is present. Moderate tricuspid regurgitation present. There is moderate pulmonary hypertension. The right charo tricular systolic pressure, as measured by Doppler, is 49.52mmHg. The pulmonic valve was not well visualized. The aortic root size is normal. Normal inferior vena cava with normal inspiratory collapse consistent with estimated right atrial pre ssure of 5 mmHg. There is no pericardial effusion. CONCLUSIONS -------- 1. Left ventricular wall thickness is normal. 2. Overall left ventricular systolic function is low-normal with, an EF between 50 - 55 %. 3. The left atrium is normal in size. 4. 3 ml of Lumason was utilized for enhancement of images. 5. Lipomatous Hypertrophy of the atrial septum is present 6. Aortic valve is trileaflet and is mildly thickened. 7. Mild mitral annular calcification present. 8. Mild mitral regurgitation is present. 9. Moderate tricuspid regurgitation present. 10. There is moderate pulmonary hypertension. 11. There is no pericardial effusion. MANAGER ORGANIZATIONAL: Emmie Tiwari RDCS
[2020-10-30] MEDS: SODIUM CHLORIDE 0.9% 1,000 ML IV SCH (13:12)
--- NOTE | 2020-10-30 13:48 | P.CRDCN ---
History of Present Illness History of present illness: HISTORY OF PRESENTING ILLNESS This is a pleasant 75-year-old male past medical history significant for coronary artery disease s/p PCI RCA 2017, peripheral vascular disease s/p left above the knee amputation, COPD, rheumatoid arthritis, former nicotine dependence, hypertension, dyslipidemia and history of PE on xarelto. He follows in the office with Dr. Draper. We have been asked to see in consultation for DAMARIS. He has been in the hospital for the last 6 days being treated for pneumonia, MSSA bacteremia and chronic non-healing wound to the right lower extremity. Currently maintained on Kefzol. Infectious disease is following. Transthoracic echo was obtained revealing preserved LV systolic function with EF 50-55%, mildly thickened aortic valve, moderate TR and moderate pulmonary hypertension with RVSP 49 mmHg. He had a bone scan that revealed suspected hyperemia involving right ankle and foot, consider cellulitis; three phase bone scan positive at the right ankle, consider osteomyelitis or inflammatory process. Dr. Pendleton has reviewed these images and does not believe there is osteomyelitis. The patient is seen and examined sitting up on the edge of the bed. He tachyneic and unable to converse comfortably without having to stop and take a breath. He denies chest pain, dizziness or palpitations. He is frustrated with the food and waiting for his daughter to bring him [employer]. DIAGNOSTICS EKG reveals sinus mechanism with no acute ST or T-wave abnormalities. Chest xray 10/25 reveals an increasing interstitial infiltrates and focal opacity at the posterior left base. Laboratory reviewed, WBC 15.6, hemoglobin 8.3, platelets 440, sodium 143, potassium 3.6, creatinine 0.8, CRP 32, Actiq acid on admission 4, repeat 1, cardiac enzymes negative 1 and an T proBNP 1020. Current cardiac medications include lisinopril 5 mg daily, xarelto 20 mg daily secondary to history of PE, lopressor 50 mg daily and atorvastatin 40 mg daily. REVIEW OF SYSTEMS At the time of my exam: CONSTITUTIONAL: Denies fever or chills. CARDIOVASCULAR: Complains of shortness of breath. Denies chest pain, orthopnea, PND or palpitations. RESPIRATORY: Denies cough. GASTROINTESTINAL: Denies abdominal pain, diarrhea, constipation, nausea or vomiting. MUSCULOSKELETAL: Denies myalgias. NEUROLOGIC: Denies numbness, tingling, headacbe or weakness. ENDOCRINE: Denies fatigue, weight change, polydipsia or polyurina. GENITOURINARY: Denies burning, hematuria or urgency with micturation. HEMATOLOGIC: Denies history of anemia or bleeding. PHYSICAL EXAMINATION Blood pressure 148/85 heart rate 88 afebrile and maintaining oxygen saturation on nasal cannula. CONSTITUTIONAL: No apparent distress. HEENT: Head is normocephalic. Pupils are equal, round. Sclerae anicteric. Mucous membranes of the mouth are moist. No JVD. No carotid bruit. CHEST EXAMINATION: Expiratory wheezes, scattered rhonchi, no rales. No chest wall tenderness is noted on palpation or with deep breathing. HEART EXAMINATION: Regular rate and rhythm. S1, S2 heard. Murmur at the left sternal border, no gallops or rub. ABDOMEN: Soft, nontender. Positive bowel sounds. EXTREMITIES: Left AKA, right lower extremity dressing in place with no edema. NEUROLOGIC EXAMINATION: Patient is awake, alert and oriented x3. ASSESSMENT MSSA bacteremia Right lower extremity cellulitis Pneumonia Acute hypoxic respiratory failure COPD Leuckocytosis Coronary artery disease s/p PCI RCA 2017 Peripheral vascular disease s/p left AKA Hypertension Dyslipidemia History of PE on xarelto PLAN Repeat chest xray. Check NTproBNP. Currently, his breathing status is a concern for undergoing a DAMARIS. Discussed the case with the patient and he understands the test and is agreeable to move forward if stable in the morning. Dr. Jeronimo will see the patient this afternoon and make further recommendations. He is currently covered for staphylococcus endocarditis with cefazolin, although the transthoracic echo did not show a vegetation on the aortic valve. Further recommendations to follow. Thank you kindly for this consultation. Nurse Practitioner note has been reviewed, I agree with a documented findings and plan of care. Patient was seen and examined. Past Medical History Past Medical History: Coronary Artery Disease (CAD), COPD, Deep Vein Thrombosis (DVT), Hyperlipidemia, Musculoskeletal Disorder, Pneumonia, Pulmonary Embolus (PE), Rheumatoid Arthritis (RA), Vascular Disorder Additional Past Medical History / Comment(s): History of pancreatitis, 2012 past medical record documents viral pericarditis but pt denies, gastritis, Fluid build up rt lung - previous chest tube - pt unsure what it is from, BOTTOM TEETH REMOVED 09-01-18, wounds in his right lower extremity, left [id number] stump and left elbow. History of multiple compression fractures his thoracic and lumbar spine particularly at T12-L1 and L3 and L4. 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 Date of Last Stent Placement:: 12/10/16 Past Psychological History: Anxiety, Depression Additional Psychological History / Comment(s): Patient was a smoker one to one and half packs per day for 40+ years and quit 2 years ago when he had cardiac stents done. He uses a synthetic marijuana at nighttime only for his arthritis to help him sleep. He denies any other street drug use, alcohol use. 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 He lives at home with his . Smoking Status: Former smoker Past Alcohol Use History: None Reported Additional Past Alcohol Use History / Comment(s): Patient was a smoker one to one and half packs per day for 40+ years and quit in 2016 when he had cardiac stents done. Past Drug Use History: None Reported - Past Family History Sister(s) Family Medical History: Cancer Additional Family Medical History / Comment(s): pt's father had ra, mother had 16 children was healthy most of her life age 93 from dementia. Mother Family Medical History: Dementia Additional Family Medical History / Comment(s): Mother from dementia at the age of 93 yrs. Father Family Medical History: Rheumatoid Arthritis (RA) Medications and Allergies Home Medications Medication Instructions Recorded Confirmed Type Gabapentin [Neurontin] 300 mg PO TID #9 cap 02/21/20 10/24/20 Rx predniSONE 10 mg PO TID 07/10/20 10/24/20 History Atorvastatin [Lipitor] 40 mg PO HS #90 tab 07/24/20 10/24/20 Rx Metoprolol Tartrate [Lopressor] 50 mg PO DAILY #90 tab 07/24/20 10/24/20 Rx Pantoprazole [Protonix] 40 mg PO BID #180 tablet. 07/24/20 10/24/20 Rx Morphine Sulfate ER [Ms Contin] 15 mg PO DAILY 10/24/20 10/24/20 History Rivaroxaban [Xarelto] 20 mg PO AC-SUPPER 10/24/20 10/24/20 History lisinopriL [Zestril] 5 mg PO DAILY 10/24/20 10/24/20 History oxyCODONE-APAP 10-325MG [Percocet 1 tab PO QID 10/24/20 10/24/20 History 10-325 mg] Allergies Allergy/AdvReac Type Severity Reaction Status Date / Time No Known Allergies Allergy Verified 07/10/20 19:29 Physical Exam Vitals: Vital Signs Temp Pulse Pulse Resp BP Pulse Ox 10/30/20 11:43 96 10/30/20 11:32 92 10/30/20 08:15 22 10/30/20 08:12 88 10/30/20 07:58 88 10/30/20 07:37 97.9 F 92 22 148/85 98 10/30/20 01:00 98.6 F 97 20 138/80 93 L 10/29/20 20:29 88 10/29/20 20:15 88 10/29/20 18:47 98.6 F 98 20 136/80 94 L 10/29/20 16:10 88 18 10/29/20 15:58 80 18 10/29/20 14:00 98.3 F 80 16 118/76 100 Intake and Output 10/29/20 10/30/20 10/30/20 22:59 06:59 14:59 Intake Total 200 Balance 200 Intake: Oral 200 Other: Voiding Method Urinal Urinal Diaper Diaper Incontinent Incontinent # Voids 3 # Bowel Movements 0 Results 10/28/20 05:58 10/28/20 05:58 Current Medications Generic Name Dose Route Start Last Admin Trade Name Freq PRN Reason Stop Dose Admin Acetaminophen 650 mg 10/24/20 15:20 10/24/20 15:39 Acetaminophen Tab 325 Mg Tab PO 650 mg Q6HR PRN Administration Fever and/ or Mild Pain Albuterol/Ipratropium 3 ml 10/24/20 04:16 10/30/20 11:32 Ipratropium-Albuterol 3 Ml Neb INHALATION 3 ml RT-Q4H PRN Administration shortness of breath Atorvastatin Calcium 40 mg 10/24/20 21:00 10/29/20 20:50 Atorvastatin 40 Mg Tab PO 40 mg HS SURYA Administration Budesonide 0.5 mg 10/24/20 09:00 10/30/20 07:58 Budesonide 0.5 Mg/2 Ml Nebu INHALATION 0.5 mg RT-BID SURYA Administration Sodium Chloride 1,000 mls @ 50 mls/hr 10/24/20 04:30 10/30/20 13:12 Saline 0.9% IV 50 mls/hr .Q20H SURYA Administration Cefazolin Sodium 2 gm/ Sodium 50 mls @ 100 mls/hr 10/27/20 00:00 10/30/20 08:40 Chloride IVPB 100 mls/hr Q8HR SURYA Administration Methylprednisolone Sodium Succinate 40 mg 10/28/20 12:00 10/30/20 12:11 Methylprednisolone Sod Succi 40 Mg/Ml 1 Ml Vial IV 40 mg Q8H SURYA Administration Metoprolol Tartrate 50 mg 10/24/20 09:00 10/30/20 08:33 Metoprolol Tartrate 50 Mg Tab PO 50 mg DAILY SURYA Administration Miscellaneous Information 1 each 10/24/20 04:16 Pneumonia Protocol Utilized 1 Each Misc PO ONCE PRN Per Protocol Miscellaneous Information 1 each 10/26/20 10:51 Potassium Replacement Protocol 1 Each Misc MISCELLANE DAILY PRN Per Protocol Protocol Miscellaneous Information 1 each 10/26/20 14:18 Potassium Replacement Protocol 1 Each Misc MISCELLANE DAILY PRN Per Protocol Protocol Miscellaneous Information 1 each 10/26/20 14:19 Magnesium Replacement Protocol 1 Each Misc MISCELLANE DAILY PRN Per Protocol Protocol Morphine Sulfate 15 mg 10/27/20 16:00 10/30/20 08:34 Morphine Sulfate Er 15 Mg Tablet PO 15 mg TID SURYA Administration Nystatin 500,000 unit 10/24/20 18:00 10/30/20 13:11 Nystatin 100,000 Unit/Ml Susp 500,000 Unit/5 Ml Cup PO 500,000 unit QID SURYA Administration Oxycodone/Acetaminophen 1 each 10/25/20 11:56 10/30/20 12:10 Oxycodone-Apap 10-325mg 1 Each Tab PO 1 each Q4H PRN Administration Pain Pantoprazole Sodium 40 mg 10/24/20 08:15 10/30/20 08:34 Pantoprazole 40 Mg Tablet PO 40 mg AC-BID SURYA Administration Rivaroxaban 20 mg 10/24/20 09:00 10/30/20 08:35 Rivaroxaban 20 Mg Tab PO 20 mg DAILY SURYA Administration Intake and Output 10/29/20 10/30/20 10/30/20 22:59 06:59 14:59 Intake Total 200 Balance 200 Intake: Oral 200 Other: Voiding Method Urinal Urinal Diaper Diaper Incontinent Incontinent # Voids 3 # Bowel Movements 0 10/28/20 05:58 10/28/20 05:58
--- NOTE | 2020-10-30 14:01 | P.PN ---
Subjective Progress Note Date: 10/30/20 HISTORY OF PRESENT ILLNESS This is a 75-year-old male patient under treatment for MSSA bacteremia. Patient is currently on Kefzol but has had persistent bacteremia and consult with cardiology has been requested for echocardiogram and possible DAMARIS. Patient states that he is okay today. Breathing is better. He states he has occasional chest pain. No cough. He he complains of a little abdominal discomfort. No diarrhea. He denies significant pain to his right foot. He has been afebrile, heart rate 92, blood pressure 148/85, pulse ox 90% on 3 L nasal cannula. No repeat lab work today. Echocardiogram reveals EF 50-55%, mild mitral regurgitation, moderate tricuspid regurgitation, moderate pulmonary hypertension. No mention of vegetation. Patient has been afebrile, heart rate 92, blood pressure 140/85, pulse ox 90% on 3 L nasal cannula. Blood culture from October 29 is currently showing no growth after 24 hours. PHYSICAL EXAMINATION Gen: This is a 75-year-old male. He is resting bed appears to be comfortable and in no acute distress. HEENT: Head is atraumatic, normocephalic. Pupils equal, round. Sclerae is anicteric. NECK: Supple. No JVD. No lymphadenopathy. LUNGS: Decreased breath sounds at bases. No wheezes or rhonchi. No intercostal retractions. HEART: Regular rate and rhythm. Systolic murmur. ABDOMEN: Soft. Bowel sounds are present. No masses. No tenderness. EXTREMITIES: No pedal edema. No calf tenderness. NEUROLOGICAL: Patient is awake, alert and oriented x3. ASSESSMENT MSSA bacteremia PLAN Continue Kefzol 2 g IV piggyback every 8 hours DAMARIS The above dictated assessment and findings were discussed with Dr. Pendleton. The impression and plan of care have been directed as dictated. Roselia Au nurse practitioner acting as scribe for Dr. Pendleton. Objective - Vital Signs Vital signs: Vital Signs Temp 97.9 F 10/30/20 07:37 Pulse 88 10/30/20 08:12 Resp 22 10/30/20 08:15 BP 148/85 10/30/20 07:37 Pulse Ox 98 10/30/20 07:37 Intake & Output 10/29/20 10/30/20 10/30/20 18:59 06:59 18:59 Intake Total 200 Balance 200 Intake: Oral 200 Other: Voiding Method Urinal Urinal Urinal Diaper Diaper Diaper Incontinent Incontinent Incontinent # Voids 3 # Bowel Movements 0 - Labs CBC & Chem 7: 10/28/20 05:58 10/28/20 05:58 Labs: Abnormal Lab Results - Last 24 Hours (Table) 10/29/20 10/29/20 10/30/20 Range/Units 11:23 16:43 06:41 POC Glucose (mg/dL) 208 H 193 H 194 H (75-99) mg/dL Microbiology - Last 24 Hours (Table) 10/29/20 05:43 Blood Culture - Preliminary Blood No Growth after 24 hours 10/28/20 05:58 Blood Culture Gram Stain - Preliminary Blood Blood Culture - Preliminary Staphylococcus aureus 10/28/20 05:58 Blood Culture - Final Blood
--- NOTE | 2020-10-30 16:03 | P.PN ---
Subjective Progress Note Date: 10/30/20 Assessment a 5-year-old gentleman admitted with multiple medical issues including uncontrollable pain especially of the back,sepsis, bacteremia. Underwent bone scan yesterday reporting suspected hyperemia involving right ankle and foot, positive findings at the right ankle; osteomyelitis or inflammatory arthropathia such as RA. Evaluated by orthopedic surgery and ID, recommendations noted and appreciated. Antibiotics further adjusted, maintaining vancomycin and discontinuing Zosyn. Renal function remains stable. Blood cultures repeated and pending. CRP elevated at 32. 2. alk phos down to 142. Potassium 3.4. Blood sugars controlled. Afebrile, WBC trending down,17. tachycardic. Yesterday IV fluids discontinued, received 1 dose of Lasix. Maintaining O2 sats in the 90s on 4 L nasal cannula. Anticoagulated on Xarelto. Pain better controlled today. 10/27/2019 Blood cultures reporting MSSA,antibiotics changed to cefazolin. Repeat blood cultures reporting gram-positive cocci in clusters. Afebrile. Complains of increased pain this morning on current regimen. Maintaining O2 sats in the 90s on 4 L nasal cannula. Denies cough. Staff reports patient's diet intake poor yesterday. Creatinine 0.8. No nausea, vomiting or diarrhea. 10/30/20 maintained on Kefzol for MSSA bacteremia. Repeat cultures reporting persistent bacteremia. Most recent repeat blood culture of 10/29 reporting no growth at 24 hours.Cardiology consulted for possible DAMARIS secondary to thickened aortic valve on echo, rule out vegetation. Echo reporting EF 50-55%, moderate tricuspid regurgitation, moderate pulmonary hypertension. Reports less pain last night. Improving, currently no pain with deep breathing. Afebrile. Maintaining O2 sats in the 90s on 3 L nasal cannula. Objective - Vital Signs Vital signs: Vital Signs Temp 97.3 F L 10/30/20 14:00 Pulse 92 10/30/20 15:40 Resp 22 10/30/20 14:00 BP 144/88 10/30/20 14:00 Pulse Ox 98 10/30/20 14:00 Intake & Output 10/29/20 10/30/20 10/30/20 18:59 06:59 18:59 Intake Total 300 Balance 300 Intake: Oral 300 Other: Voiding Method Urinal Urinal Urinal Diaper Diaper Diaper Incontinent Incontinent Incontinent # Voids 3 # Bowel Movements 0 - Exam - Exam General: frail, obese, NAD. On 3 L O2 Lungs: normal respiratory effort, diminished air entry, no wheezes, no crackles CV: Regular rate and rhythm, no murmur. Peripheral pulses 2+ Abdomen: soft, nondistended, no organomegaly Skin: warm and dry. R foot gauze dressing clean dry and intact. Microbiology 10/29/20 05:43 Blood Blood Culture - Preliminary No Growth after 24 hours 10/28/20 05:58 Blood Blood Culture Gram Stain - Preliminary 10/28/20 05:58 Blood Blood Culture - Preliminary Staphylococcus aureus 10/28/20 05:58 Blood Blood Culture - Final 10/26/20 05:28 Blood Blood Culture Gram Stain - Final 10/26/20 05:28 Blood Blood Culture - Final Staphylococcus aureus 10/26/20 05:28 Blood Blood Culture - Final 10/24/20 05:28 Blood Blood Culture Gram Stain - Final 10/24/20 05:28 Blood Blood Culture - Final Staphylococcus aureus 10/24/20 05:28 Blood Blood Culture - Final - Labs CBC & Chem 7: 10/28/20 05:58 10/28/20 05:58 Labs: Abnormal Lab Results - Last 24 Hours (Table) 10/29/20 10/30/20 Range/Units 16:43 06:41 POC Glucose (mg/dL) 193 H 194 H (75-99) mg/dL Microbiology - Last 24 Hours (Table) 10/29/20 05:43 Blood Culture - Preliminary Blood No Growth after 24 hours 10/28/20 05:58 Blood Culture Gram Stain - Preliminary Blood Blood Culture - Preliminary Staphylococcus aureus 10/28/20 05:58 Blood Culture - Final Blood Assessment and Plan Assessment: Sepsis secondary to MSSA bacteremia, etiology unclear, possible skin, possible pneumonia. Persistent bacteremia. Bone scan reporting suspected hyperemia involving right ankle and foot, positive findings at the right ankle; osteomyelitis or inflammatory arthropathia such as RA. Infectious disease and orthopedic surgery following. Acute COPD exacerbation Acute on chronic hypoxic respiratory failure, multifactorial, secondary to the above and to bacteremia, sepsis. Atelectasis Lactic acidosis Thoracic back pain Rheumatoid arthritis Chronic compression fractures with deformity at T12 L1 L3 and L4 without any evidence of new fracture Chronic thoracic and low back pain History of left lower extremity AKA Moderate pulmonary hypertension Moderate tricuspid regurgitation Plan: Continue on current medication regime, monitoring and symptomatic treatment. Continues on Kefzol as per ID . Wean down oxygen, currently maintaining O2 sats in the high 90s on 3 L , patient states he sometimes wears 2 L at home .Cardiology consulted regarding persistent bacteremia , possible DAMARIS .Aggressive pulmonary toileting with incentive spirometer reinforced. Close monitoring of renal function, lytes, coags,repeat labs ordered for a.m. The impression and plan of care has been dictated as directed. : I performed a history and examination of this patient, discussed the same with the dictator. I agree with the dictator's note ,documented as a scribe. Any additional findings or plans will be noted.
--- NOTE | 2020-10-30 16:15 | XR ---
EXAMINATION TYPE: XR chest 2V DATE OF EXAM: 10/30/2020 COMPARISON: Chest x-ray 5 days ago HISTORY: Dyspnea. History of pneumonia. TECHNIQUE: Frontal and lateral views of the chest are obtained. FINDINGS: Low lung volumes and chronic parenchymal changes with increased opacities bilaterally. Per sistent cardiomegaly. Lateral view is suboptimal due to underpenetration and body habitus. Metallic hardware right shoulder surgery partially imaged.. IMPRESSION: Persistent low lung volumes and cardiomegaly with bilateral multifocal acute infiltrates . No significant change from most recent x-ray. Correlate for covid 19 infection.
[2020-10-30] MEDS: ATORVASTATIN 40 MG TAB PO SCH (20:46)
[2020-10-31] MEDS: methylPREDNISolone SOD SUCCI 40 MG/ML 1 ML VIAL IV SCH ×3 (03:11→20:55)
[2020-10-31 06:49] LABS: Anisocytosis Slight; Basophils % (A) 0 %; Eosinophils % (A) 0 %; HCT 25.9 % (39.0-53.0); HGB 7.8 gm/dL (13.0-17.5); Hypochromasia Marked; Lymphocytes # (A) 0.7 k/uL (1.0-4.8); Lymphocytes % (A) 7 %; MCH 21.2 pg (25.0-35.0); MCHC 29.9 g/dL (31.0-37.0); MCV 70.8 fL (80.0-100.0); Mean Platelet Volume 7.2; Microcytosis Marked; Monocytes # (A) 0.3 k/uL (0-1.0); Monocytes % (A) 3 %; Neutrophils # (A) 9.4 k/uL (1.3-7.7); Neutrophils % (A) 90 %; Platelet Count 561 k/uL (150-450); Poikilocytosis Slight; RBC 3.66 m/uL (4.30-5.90); RDW 17.2 % (11.5-15.5); WBC 10.4 k/uL (3.8-10.6)
[2020-10-31] MEDS: PANTOPRAZOLE 40 MG TABLET PO SCH ×2 (07:27→15:39)
[2020-10-31] MEDS: METOPROLOL TARTRATE 50 MG TAB PO SCH (07:27)
[2020-10-31] MEDS: RIVAROXABAN 20 MG TAB PO SCH (07:28)
[2020-10-31] MEDS: NYSTATIN 100,000 UNIT/ML SUSP 500,000 UNIT/5 ML CUP PO SCH ×4 (07:28→20:56)
[2020-10-31] MEDS: oxyCODONE-APAP 10-325MG 1 EACH TAB PO PRN (07:32)
[2020-10-31] MEDS: BUDESONIDE 0.5 MG/2 ML NEBU INHALATION SCH ×2 (08:04→21:19)
[2020-10-31] MEDS: IPRATROPIUM-ALBUTEROL 3 ML NEB INHALATION PRN ×2 (08:04→15:23)
[2020-10-31] MEDS ORDERED: fentaNYL (PF) 50 MCG/ML 2 ML AMP ONE (08:42)
[2020-10-31] MEDS: BENZOCAINE SPRAY 1 CAN TOPICAL ONE ×2 (09:15→09:35)
[2020-10-31] MEDS ORDERED: IV FLUID CONTINUATION 400 ML IV ONE (09:16)
[2020-10-31] MEDS ORDERED: MIDAZOLAM 2 MG/2 ML VIAL IV ONE ×2 (09:35→09:38)
[2020-10-31] MEDS ORDERED: fentaNYL (PF) 50 MCG/ML 2 ML AMP IV ONE (09:35)
[2020-10-31 09:48] LABS: African American GFR (CKD) 108.5 (60.0-200.0); Anion Gap 4.9 mmol/L (4.00-12.00); BUN/Creat Ratio 34.29 Ratio (12.00-20.00); Calcium 8.2 mg/dL (8.7-10.3); Carbon Dioxide 29.1 mmol/L (21.6-31.8); Non-African American GFR(CKD) 93.6 (60.0-200.0); Potassium 4.2 mmol/L (3.5-5.5)
--- NOTE | 2020-10-31 09:48 | PN ---
PROGRESS NOTE Mr. Sanabria is a 75-year-old male with a known history of coronary artery disease, history of peripheral vascular disease, history of hyperlipidemia, prior history of pulmonary embolism, who presented with an infectious status and positive blood cultures. He had MRSA bacteremia and chronic nonhealing wound. He was evaluated by Dr. Pendleton and recommendation was made regarding transesophageal echocardiogram. He is feeling well this morning. He is denying any chest pain. His breathing has been stable. He denies any dizziness or palpitation. He continues to be at this time on Lipitor 40 mg daily, metoprolol tartrate 50 mg once a day, Xarelto 20 mg daily. PHYSICAL EXAMINATION: Blood pressure running in the 140s to 160s with the heart rate in the 90s. LUNGS: Clear. HEART: Regular rate and rhythm. S1, S2. No S3. No rub appreciated. ABDOMEN: Soft, nontender. EXTREMITIES: Status post amputation noted. LAB DATA: Lab data revealed hemoglobin of 7.8, white blood cell of 10.4. IMPRESSION: 1. Positive blood cultures, source unclear. No clear evidence of endocarditis by examination. 2. History of coronary artery disease. 3. History of peripheral vascular disease. 4. Anemia. RECOMMENDATION: Patient will undergo transesophageal echocardiogram today to evaluate if there is any source of bleeding. 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 In the meantime because of his blood pressure, I will add to his regimen an BALTA inhibitor. Continue on the rest of his medical regimen and depending on his progress, further recommendation will be made. MMODL / IJN: [id number] /
[2020-10-31] MEDS: MORPHINE SULFATE ER 15 MG TABLET PO SCH ×3 (10:36→20:56)
[2020-10-31] MEDS: SODIUM CHLORIDE 0.9% 1,000 ML IV SCH ×2 (10:37→11:58)
--- NOTE | 2020-10-31 10:39 | ECHOT ---
TRANSESOPHAGEAL ECHOCARDIOGRAM INDICATION: Rule out endocarditis. PROCEDURE: After explaining the procedure to the patient, its risks and the complications, his blood pressure, heart rate, O2 saturation was monitored. His throat was sprayed with Cetacaine. He received 3 mg intravenous Versed and 50 mcg intravenous fentanyl. The probe was introduced in the esophagus without difficulty. Images were obtained. Following that, the probe was removed. There was no immediate complication. FINDINGS: Left atrial size is mildly dilated. Left atrial appendage is normal. Left ventricular size is normal. There is mild global hypokinesis, estimated ejection fraction 45% to 50%. The aortic valve revealed mild thickening with no evidence of vegetation. The mitral valve revealed mild mitral annulus calcification. Tricuspid valve is normal. Descending thoracic aorta appears to be normal. No pericardial effusion was noted. Contrast bubble study revealed no evidence of shunting across the interatrial septum. Doppler pulse wave and color Doppler obtained and revealed mild to moderate mitral and tricuspid regurgitation. There was no shunting by color Doppler study. CONCLUSION: 1. Mildly dilated left atrium. 2. Normal left ventricular size with mild global hypokinesis. 3. No evidence of vegetation. 4. Mild to moderate mitral and tricuspid regurgitation. 5. No pericardial effusion. 6. No shunting across the interatrial septum. MMODL / IJN: [id number] /
--- NOTE | 2020-10-31 13:56 | P.PN ---
Subjective Progress Note Date: 10/31/20 HISTORY OF PRESENT ILLNESS This is a 75-year-old male patient under treatment for MSSA bacteremia. Patient is currently on Kefzol but has had persistent bacteremia. Patient states that he is okay today. Breathing is stable. No cough. He complains of a little abdominal discomfort. No diarrhea. He denies significant pain to his right foot. Echocardiogram reveals EF 50-55%, mild mitral regurgitation, moderate tricuspid regurgitation, moderate pulmonary hypertension. No mention of vegetation. DAMARIS reveals no evidence of vegetation. No shunting across the anterior atrial septum. He has been afebrile, heart rate 63, blood pressure 166/92, pulse ox 98% on 3 L nasal cannula. WBC 10.4, hemoglobin 7.8. Her creatinine is 0.7. Coated 19 not detected. Blood culture from October 29 is currently showing no growth after 24 hours. PHYSICAL EXAMINATION Gen: This is a 75-year-old male. He is resting bed appears to be comfortable and in no acute distress. HEENT: Head is atraumatic, normocephalic. Pupils equal, round. Sclerae is anicteric. NECK: Supple. No JVD. No lymphadenopathy. LUNGS: Decreased breath sounds at bases. No wheezes or rhonchi. No intercostal retractions. HEART: Regular rate and rhythm. Systolic murmur. ABDOMEN: Soft. Bowel sounds are present. No masses. No tenderness. EXTREMITIES: No pedal edema. No calf tenderness. NEUROLOGICAL: Patient is awake, alert and oriented x3. ASSESSMENT MSSA bacteremia, unidentified source PLAN Continue Kefzol 2 g IV piggyback every 8 hours DAMARIS as above WBC 4 body scan ordered. The above dictated assessment and findings were discussed with Dr. Pendleton. The impression and plan of care have been directed as dictated. Roselia Au nurse practitioner acting as scribe for Dr. Pendleton. Objective - Vital Signs Vital signs: Vital Signs Temp 98.8 F 10/31/20 07:24 Pulse 63 10/31/20 11:45 Resp 20 10/31/20 07:24 BP 166/92 10/31/20 11:45 Pulse Ox 98 10/31/20 11:45 Intake & Output 10/30/20 10/31/20 10/31/20 18:59 06:59 18:59 Intake Total 300 200 Balance 300 200 Intake: IV 200 Oral 300 Other: Voiding Method Urinal Urinal Urinal Diaper Diaper Diaper Incontinent Incontinent Incontinent # Voids 2 1 - Labs CBC & Chem 7: 10/31/20 05:29 10/31/20 05:29 Labs: Abnormal Lab Results - Last 24 Hours (Table) 10/31/20 10/31/20 Range/Units 05:29 05:29 RBC 3.66 L (4.30-5.90) m/uL Hgb 7.8 L (13.0-17.5) gm/dL Hct 25.9 L (39.0-53.0) % MCV 70.8 L (80.0-100.0) fL MCH 21.2 L (25.0-35.0) pg MCHC 29.9 L (31.0-37.0) g/dL RDW 17.2 H (11.5-15.5) % Plt Count 561 H (150-450) k/uL Neutrophils # 9.4 H (1.3-7.7) k/uL Lymphocytes # 0.7 L (1.0-4.8) k/uL BUN/Creatinine Ratio 34.29 H (12.00-20.00) Ratio Glucose 147 H (70-110) mg/dL Calcium 8.2 L (8.7-10.3) mg/dL Microbiology - Last 24 Hours (Table) 10/29/20 05:43 Blood Culture - Preliminary Blood No Growth after 48 hours 10/28/20 05:58 Blood Culture Gram Stain - Final Blood Blood Culture - Final Staphylococcus aureus
[2020-10-31 15:37] VITALS: BMI 27.3
--- NOTE | 2020-10-31 16:22 | P.PN ---
Subjective Progress Note Date: 10/31/20 Assessment a 5-year-old gentleman admitted with multiple medical issues including uncontrollable pain especially of the back,sepsis, bacteremia. Underwent bone scan yesterday reporting suspected hyperemia involving right ankle and foot, positive findings at the right ankle; osteomyelitis or inflammatory arthropathia such as RA. Evaluated by orthopedic surgery and ID, recommendations noted and appreciated. Antibiotics further adjusted, maintaining vancomycin and discontinuing Zosyn. Renal function remains stable. Blood cultures repeated and pending. CRP elevated at 32. 2. alk phos down to 142. Potassium 3.4. Blood sugars controlled. Afebrile, WBC trending down,17. tachycardic. Yesterday IV fluids discontinued, received 1 dose of Lasix. Maintaining O2 sats in the 90s on 4 L nasal cannula. Anticoagulated on Xarelto. Pain better controlled today. 10/27/2019 Blood cultures reporting MSSA,antibiotics changed to cefazolin. Repeat blood cultures reporting gram-positive cocci in clusters. Afebrile. Complains of increased pain this morning on current regimen. Maintaining O2 sats in the 90s on 4 L nasal cannula. Denies cough. Staff reports patient's diet intake poor yesterday. Creatinine 0.8. No nausea, vomiting or diarrhea. 10/30/20 maintained on Kefzol for MSSA bacteremia. Repeat cultures reporting persistent bacteremia. Most recent repeat blood culture of 10/29 reporting no growth at 24 hours.Cardiology consulted for possible DAMARIS secondary to thickened aortic valve on echo, rule out vegetation. Echo reporting EF 50-55%, moderate tricuspid regurgitation, moderate pulmonary hypertension. Reports less pain last night. Improving, currently no pain with deep breathing. Afebrile. Maintaining O2 sats in the 90s on 3 L nasal cannula. 10/31/2020 reports slept well. Currently shallow breathing with thoracic pain. Reports right foot pain controlled. Completed DAMARIS, tolerated well, reported no evidence of vegetation, no shunting across interatrial septum, mild to moderate mitral and tricuspid regurgitation,. Blood culture of October 29 reporting no growth at 48 hours. Denies nausea vomiting or diarrhea. Hemoglobin 7.8. Objective - Vital Signs Vital signs: Vital Signs Temp 97.5 F L 10/31/20 14:52 Pulse 75 10/31/20 15:35 Resp 20 10/31/20 14:52 BP 155/85 10/31/20 14:52 Pulse Ox 99 10/31/20 14:52 Intake & Output 10/30/20 10/31/20 10/31/20 18:59 06:59 18:59 Intake Total 300 200 Balance 300 200 Weight 79.379 kg Intake: IV 200 Oral 300 Other: Voiding Method Urinal Urinal Urinal Diaper Diaper Diaper Incontinent Incontinent Incontinent # Voids 2 1 - Exam - Exam General: frail, obese, NAD. Lungs: diminished air entry, no wheezes, no crackles. CV: Regular rate and rhythm, no murmur. Peripheral pulses 2+ Abdomen: soft, nondistended, no organomegaly Skin: warm and dry. R foot gauze dressing clean dry and intact. - Labs CBC & Chem 7: 10/31/20 05:29 10/31/20 05:29 Labs: Abnormal Lab Results - Last 24 Hours (Table) 10/31/20 10/31/20 Range/Units 05:29 05:29 RBC 3.66 L (4.30-5.90) m/uL Hgb 7.8 L (13.0-17.5) gm/dL Hct 25.9 L (39.0-53.0) % MCV 70.8 L (80.0-100.0) fL MCH 21.2 L (25.0-35.0) pg MCHC 29.9 L (31.0-37.0) g/dL RDW 17.2 H (11.5-15.5) % Plt Count 561 H (150-450) k/uL Neutrophils # 9.4 H (1.3-7.7) k/uL Lymphocytes # 0.7 L (1.0-4.8) k/uL BUN/Creatinine Ratio 34.29 H (12.00-20.00) Ratio Glucose 147 H (70-110) mg/dL Calcium 8.2 L (8.7-10.3) mg/dL Microbiology - Last 24 Hours (Table) 10/29/20 05:43 Blood Culture - Preliminary Blood No Growth after 48 hours 10/28/20 05:58 Blood Culture Gram Stain - Final Blood Blood Culture - Final Staphylococcus aureus Assessment and Plan Assessment: Sepsis secondary to MSSA bacteremia, etiology unclear, possible skin, possible pneumonia. Persistent bacteremia. DAMARIS reported no vegetation, no shunting. Body Scan pending Bone scan reporting suspected hyperemia involving right ankle and foot, positive findings at the right ankle; osteomyelitis or inflammatory arthropathia such as RA. Infectious disease and orthopedic surgery following. Acute COPD exacerbation Acute on chronic hypoxic respiratory failure, multifactorial, secondary to the above and to bacteremia, sepsis. Atelectasis Lactic acidosis Thoracic back pain Rheumatoid arthritis Chronic compression fractures with deformity at T12 L1 L3 and L4 without any evidence of new fracture Chronic thoracic and low back pain History of left lower extremity AKA Moderate pulmonary hypertension Moderate tricuspid regurgitation Plan: Continue on current medication regime, monitoring and symptomatic treatment. Continues on Kefzol as per ID . Body scan pending .Aggressive pulmonary toileting with incentive spirometer reinforced. Close monitoring of coags,repeat labs ordered for a.m. Discharge planning in progress pending body scan results. The impression and plan of care has been dictated as directed. : I performed a history and examination of this patient, discussed the same with the dictator. I agree with the dictator's note ,documented as a scribe. Any additional findings or plans will be noted.
[2020-10-31] MEDS: ATORVASTATIN 40 MG TAB PO SCH (20:55)
[2020-11-01] MEDS: methylPREDNISolone SOD SUCCI 40 MG/ML 1 ML VIAL IV SCH ×3 (04:43→20:00)
[2020-11-01] MEDS: oxyCODONE-APAP 10-325MG 1 EACH TAB PO PRN (04:45)
[2020-11-01 06:59] LABS: Anisocytosis Slight; Basophils % (A) 0 %; Eosinophils % (A) 0 %; HCT 25.7 % (39.0-53.0); HGB 7.7 gm/dL (13.0-17.5); Hypochromasia Marked; Lymphocytes # (A) 0.8 k/uL (1.0-4.8); Lymphocytes % (A) 10 %; MCH 21.1 pg (25.0-35.0); MCHC 29.8 g/dL (31.0-37.0); MCV 70.7 fL (80.0-100.0); Mean Platelet Volume 7.1; Microcytosis Marked; Monocytes # (A) 0.3 k/uL (0-1.0); Monocytes % (A) 4 %; Neutrophils # (A) 6.5 k/uL (1.3-7.7); Neutrophils % (A) 85 %; Platelet Count 519 k/uL (150-450); Poikilocytosis Slight; RBC 3.64 m/uL (4.30-5.90); WBC 7.7 k/uL (3.8-10.6)
[2020-11-01] MEDS: NYSTATIN 100,000 UNIT/ML SUSP 500,000 UNIT/5 ML CUP PO SCH ×4 (07:32→22:21)
[2020-11-01] MEDS: PANTOPRAZOLE 40 MG TABLET PO SCH ×2 (07:33→16:21)
[2020-11-01] MEDS: RIVAROXABAN 20 MG TAB PO SCH (07:33)
[2020-11-01] MEDS: METOPROLOL TARTRATE 50 MG TAB PO SCH (07:33)
[2020-11-01] MEDS: SODIUM CHLORIDE 0.9% 1,000 ML IV SCH ×2 (07:41→10:10)
[2020-11-01 07:56] LABS: Polychromasia Present
[2020-11-01] MEDS: BUDESONIDE 0.5 MG/2 ML NEBU INHALATION SCH ×2 (08:40→18:51)
[2020-11-01] MEDS: IPRATROPIUM-ALBUTEROL 3 ML NEB INHALATION PRN ×3 (08:40→18:51)
[2020-11-01] MEDS: MORPHINE SULFATE ER 15 MG TABLET PO SCH ×3 (09:21→22:23)
--- NOTE | 2020-11-01 09:33 | P.PN ---
Subjective HISTORY OF PRESENTING ILLNESS This is a pleasant 75-year-old male past medical history significant for coronary artery disease s/p PCI RCA 2017, peripheral vascular disease s/p left above the knee amputation, COPD, rheumatoid arthritis, former nicotine dependence, hypertension, dyslipidemia and history of PE on xarelto. He follows in the office with Dr. Draper. Pt is seen and examined laying flat in bed in no acute distress. He is complaining of lower back pain. He denies chest pain, worsening shortness of breath, dizziness or palpitations. He denies throat discomfort. Blood pressure on 59/83 heart rate 84 afebrile maintaining oxygen saturation on nasal cannula. DAMARIS revealed mild global LV hypokinesia with ejection fraction 45-50%, mildly dilated left atrium, mild to moderate mitral and tricuspid regurgitation, no shunting across the intra-atrial septum and no evidence of vegetation. PHYSICAL EXAMINATION CONSTITUTIONAL: No apparent distress. HEENT: Head is normocephalic. Pupils are equal, round. Sclerae anicteric. Mucous membranes of the mouth are moist. No JVD. No carotid bruit. CHEST EXAMINATION: Expiratory wheezes, scattered rhonchi, no rales. No chest wall tenderness is noted on palpation or with deep breathing. HEART EXAMINATION: Regular rate and rhythm. S1, S2 heard. Murmur at the left sternal border, no gallops or rub. EXTREMITIES: Left AKA, right lower extremity dressing in place with no edema. ASSESSMENT MSSA bacteremia Right lower extremity cellulitis Pneumonia Acute hypoxic respiratory failure COPD Leuckocytosis Coronary artery disease s/p PCI RCA 2017 Peripheral vascular disease s/p left AKA Hypertension Dyslipidemia History of PE on xarelto PLAN No evidence of vegetation on DAMARIS. Ongoing medical management, we will follow along as needed. Follow-up in the office with Dr. Draper upon discharge. Nurse Practitioner note has been reviewed, I agree with a documented findings and plan of care. Patient was seen and examined. Objective - Vital Signs Vital signs: Vital Signs Temp 98.1 F 11/01/20 07:32 Pulse 84 11/01/20 08:54 Resp 20 11/01/20 07:32 BP 159/83 11/01/20 07:32 Pulse Ox 97 11/01/20 07:32 Intake & Output 10/31/20 11/01/20 11/01/20 18:59 06:59 18:59 Intake Total 200 Output Total 300 Balance 200 -300 Weight 79.379 kg Intake: IV 200 Output: Urine 300 Other: Voiding Method Urinal Urinal Diaper Diaper Incontinent Incontinent # Voids 2 - Labs CBC & Chem 7: 11/01/20 05:45 10/31/20 05:29 Labs: Abnormal Lab Results - Last 24 Hours (Table) 10/31/20 11/01/20 Range/Units 05:29 05:45 RBC 3.64 L (4.30-5.90) m/uL Hgb 7.7 L (13.0-17.5) gm/dL Hct 25.7 L (39.0-53.0) % MCV 70.7 L (80.0-100.0) fL MCH 21.1 L (25.0-35.0) pg MCHC 29.8 L (31.0-37.0) g/dL RDW 17.0 H (11.5-15.5) % Plt Count 519 H (150-450) k/uL Lymphocytes # 0.8 L (1.0-4.8) k/uL BUN/Creatinine Ratio 34.29 H (12.00-20.00) Ratio Glucose 147 H (70-110) mg/dL Calcium 8.2 L (8.7-10.3) mg/dL Microbiology - Last 24 Hours (Table) 10/29/20 05:43 Blood Culture - Preliminary Blood No Growth after 72 hours
[2020-11-01 09:35] LABS: Erythrocyte Sedimentation Rate 104 mm/hr (0-15)
[2020-11-01 10:57] LABS: African American GFR (CKD) 115.6 (60.0-200.0); Anion Gap 5.9 mmol/L (4.00-12.00); BUN/Creat Ratio 33.33 Ratio (12.00-20.00); C Reactive Protein 3.2 mg/dL (0.0-0.8); Calcium 8.1 mg/dL (8.7-10.3); Carbon Dioxide 30.1 mmol/L (21.6-31.8); Non-African American GFR(CKD) 99.7 (60.0-200.0); Potassium 4.4 mmol/L (3.5-5.5)
--- NOTE | 2020-11-01 15:22 | P.PN ---
Subjective Progress Note Date: 11/01/20 Assessment a 5-year-old gentleman admitted with multiple medical issues including uncontrollable pain especially of the back,sepsis, bacteremia. Underwent bone scan yesterday reporting suspected hyperemia involving right ankle and foot, positive findings at the right ankle; osteomyelitis or inflammatory arthropathia such as RA. Evaluated by orthopedic surgery and ID, recommendations noted and appreciated. Antibiotics further adjusted, maintaining vancomycin and discontinuing Zosyn. Renal function remains stable. Blood cultures repeated and pending. CRP elevated at 32. 2. alk phos down to 142. Potassium 3.4. Blood sugars controlled. Afebrile, WBC trending down,17. tachycardic. Yesterday IV fluids discontinued, received 1 dose of Lasix. Maintaining O2 sats in the 90s on 4 L nasal cannula. Anticoagulated on Xarelto. Pain better controlled today. 10/27/2019 Blood cultures reporting MSSA,antibiotics changed to cefazolin. Repeat blood cultures reporting gram-positive cocci in clusters. Afebrile. Complains of increased pain this morning on current regimen. Maintaining O2 sats in the 90s on 4 L nasal cannula. Denies cough. Staff reports patient's diet intake poor yesterday. Creatinine 0.8. No nausea, vomiting or diarrhea. 10/30/20 maintained on Kefzol for MSSA bacteremia. Repeat cultures reporting persistent bacteremia. Most recent repeat blood culture of 10/29 reporting no growth at 24 hours.Cardiology consulted for possible DAMARIS secondary to thickened aortic valve on echo, rule out vegetation. Echo reporting EF 50-55%, moderate tricuspid regurgitation, moderate pulmonary hypertension. Reports less pain last night. Improving, currently no pain with deep breathing. Afebrile. Maintaining O2 sats in the 90s on 3 L nasal cannula. 10/31/2020 reports slept well. Currently shallow breathing with thoracic pain. Reports right foot pain controlled. Completed DMAARIS, tolerated well, reported no evidence of vegetation, no shunting across interatrial septum, mild to moderate mitral and tricuspid regurgitation,. Blood culture of October 29 reporting no growth at 48 hours. Denies nausea vomiting or diarrhea. Hemoglobin 7.8. 11/01/2020 Maintained on cefazolin. Persistent bacteremia with unclear etiology, DAMARIS reporting no vegetation .scheduled for WBC scan today. Afebrile, normal WBC. Hemoglobin 7.7. Maintaining O2 sats in the high 90s on 3 L nasal cannula. Denies chest pain, palpitations or shortness of breath. Complains of feeling bloated. Pain controlled. Objective - Vital Signs Vital signs: Vital Signs Temp 98.1 F 11/01/20 07:32 Pulse 88 11/01/20 07:32 Resp 20 11/01/20 07:32 BP 159/83 11/01/20 07:32 Pulse Ox 97 11/01/20 07:32 Intake & Output 10/31/20 11/01/20 11/01/20 18:59 06:59 18:59 Intake Total 200 Output Total 300 Balance 200 -300 Weight 79.379 kg Intake: IV 200 Output: Urine 300 Other: Voiding Method Urinal Urinal Diaper Diaper Incontinent Incontinent # Voids 2 - Exam - Exam General: frail, obese, NAD. Lungs: diminished air entry, no wheezes, no crackles. CV: Regular rate and rhythm, no murmur. Peripheral pulses 2+ Abdomen: soft, nondistended, no organomegaly Skin: warm and dry. R foot gauze dressing clean dry and intact. - Labs CBC & Chem 7: 11/01/20 05:45 11/01/20 05:45 Labs: Abnormal Lab Results - Last 24 Hours (Table) 10/31/20 11/01/20 Range/Units 05:29 05:45 RBC 3.64 L (4.30-5.90) m/uL Hgb 7.7 L (13.0-17.5) gm/dL Hct 25.7 L (39.0-53.0) % MCV 70.7 L (80.0-100.0) fL MCH 21.1 L (25.0-35.0) pg MCHC 29.8 L (31.0-37.0) g/dL RDW 17.0 H (11.5-15.5) % Plt Count 519 H (150-450) k/uL Lymphocytes # 0.8 L (1.0-4.8) k/uL BUN/Creatinine Ratio 34.29 H (12.00-20.00) Ratio Glucose 147 H (70-110) mg/dL Calcium 8.2 L (8.7-10.3) mg/dL Microbiology - Last 24 Hours (Table) 10/29/20 05:43 Blood Culture - Preliminary Blood No Growth after 48 hours 10/28/20 05:58 Blood Culture Gram Stain - Final Blood Blood Culture - Final Staphylococcus aureus Assessment and Plan Assessment: Sepsis secondary to MSSA bacteremia, etiology unclear, possible skin, possible pneumonia. Persistent bacteremia. DAMARIS reported no vegetation, no shunting. Body Scan pending Bone scan reporting suspected hyperemia involving right ankle and foot, positive findings at the right ankle; osteomyelitis or inflammatory arthropathia such as RA. Infectious disease and orthopedic surgery following. Acute COPD exacerbation Acute on chronic hypoxic respiratory failure, multifactorial, secondary to the above and to bacteremia, sepsis. Atelectasis Lactic acidosis Thoracic back pain Rheumatoid arthritis Chronic compression fractures with deformity at T12 L1 L3 and L4 without any evidence of new fracture Chronic thoracic and low back pain History of left lower extremity AKA Moderate pulmonary hypertension Moderate tricuspid regurgitation Anemia, etiology unclear, stool for occult blood pending. Plan: Continue on current medication regime, monitoring and symptomatic treatment.WBC scan pending.Continue on cefazolin. Aggressive pulmonary toileting with incentive spirometer reinforced. Stool for occult blood ordered secondary to anemia .Discharge planning in progress in the next 24-48 hours pending body scan, final DC recommendations and clearance from ID. The impression and plan of care has been dictated as directed. : I performed a history and examination of this patient, discussed the same with the dictator. I agree with the dictator's note ,documented as a scribe. Any additional findings or plans will be noted.
--- NOTE | 2020-11-01 16:40 | PN ---
PROGRESS NOTE DATE OF SERVICE: 11/01/2020 REASON FOR FOLLOWUP: MSSA bacteremia. INTERVAL HISTORY: The patient is currently afebrile. Patient is feeling slightly better. He is breathing more comfortably. The patient denies having any chest pain. Occasional cough. No abdominal pain. Has been complaining of some pain in the lower back area. No pain to the right foot wound. PHYSICAL EXAMINATION: Blood pressure 129/68 with a pulse of 69, temperature 98.2. He is 98% on 3 L nasal cannula. General description is an elderly male lying in bed in no distress. RESPIRATORY SYSTEM: Unlabored breathing. Clear to auscultation anteriorly. HEART: S1, S2. Regular rate and rhythm. ABDOMEN: Soft. No tenderness. LABS: Hemoglobin 7.7, white count 7.7, BUN of 20, creatinine 0.6. Blood culture from 10/29 has been negative so far. DIAGNOSTIC IMPRESSION AND PLAN: Patient with MSSA bacteremia with concern for possible deep source in this patient who did have bacteremia for a few days. DAMARIS was negative. We are waiting for the WBC scan to be completed to see if we need any further workup. For now, continue with cefazolin 2 grams q.8 hours. The patient will be able to get a PICC line in the morning, as he will need to continue with cefazolin 2 grams q.8 for at least 6 weeks, with close outpatient followup. MMODL / IJN: [id number] /
[2020-11-01] MEDS: SIMETHICONE 80 MG CHEWABLE PO SCH ×2 (17:31→22:22)
--- NOTE | 2020-11-01 17:53 | NM ---
EXAMINATION TYPE: NM WBC whole body DATE OF EXAM: 11/01/2020 COMPARISON: NONE HISTORY: Bacteremia. TECHNIQUE: Following administration of 17.6 mCi Tc99m Ceretec. Images obtained 4 hour(s) and hour(s ) post injection. FINDINGS: There is abnormal tracer accumulation involving the mid and proximal shaft of the left femur. There i s also slight increased uptake in the intertrochanteric region of the right femur. There is an above knee amputation on the left side. The remainder of the tracer distribution is fairly normal. IMPRESSION: Abnormal increased uptake in the shaft of the left femur could relate to osteomyelitis. Mild increase d uptake also in the intertrochanteric right femur of uncertain significance.
[2020-11-01] MEDS: ATORVASTATIN 40 MG TAB PO SCH (22:28)
[2020-11-02] MEDS: methylPREDNISolone SOD SUCCI 40 MG/ML 1 ML VIAL IV SCH ×3 (04:01→20:37)
[2020-11-02] MEDS: oxyCODONE-APAP 10-325MG 1 EACH TAB PO PRN ×3 (04:05→20:37)
[2020-11-02] MEDS: SODIUM CHLORIDE 0.9% 1,000 ML IV SCH ×3 (05:32→20:41)
[2020-11-02] MEDS: BUDESONIDE 0.5 MG/2 ML NEBU INHALATION SCH ×2 (06:55→20:17)
[2020-11-02] MEDS: IPRATROPIUM-ALBUTEROL 3 ML NEB INHALATION PRN ×3 (06:55→20:17)
[2020-11-02] MEDS: SIMETHICONE 80 MG CHEWABLE PO SCH ×3 (07:32→17:36)
[2020-11-02] MEDS: METOPROLOL TARTRATE 50 MG TAB PO SCH (07:32)
[2020-11-02] MEDS: MORPHINE SULFATE ER 15 MG TABLET PO SCH (07:32)
[2020-11-02] MEDS: PANTOPRAZOLE 40 MG TABLET PO SCH ×2 (07:33→16:02)
[2020-11-02] MEDS: NYSTATIN 100,000 UNIT/ML SUSP 500,000 UNIT/5 ML CUP PO SCH ×4 (07:33→20:36)
[2020-11-02] MEDS: RIVAROXABAN 20 MG TAB PO SCH (07:43)
[2020-11-02] MEDS ORDERED: MORPHINE SULFATE ER 15 MG TABLET PO STA (11:01)
--- NOTE | 2020-11-02 12:12 | P.PN ---
Subjective Progress Note Date: 11/02/20 Assessment a 5-year-old gentleman admitted with multiple medical issues including uncontrollable pain especially of the back,sepsis, bacteremia. Underwent bone scan yesterday reporting suspected hyperemia involving right ankle and foot, positive findings at the right ankle; osteomyelitis or inflammatory arthropathia such as RA. Evaluated by orthopedic surgery and ID, recommendations noted and appreciated. Antibiotics further adjusted, maintaining vancomycin and discontinuing Zosyn. Renal function remains stable. Blood cultures repeated and pending. CRP elevated at 32. 2. alk phos down to 142. Potassium 3.4. Blood sugars controlled. Afebrile, WBC trending down,17. tachycardic. Yesterday IV fluids discontinued, received 1 dose of Lasix. Maintaining O2 sats in the 90s on 4 L nasal cannula. Anticoagulated on Xarelto. Pain better controlled today. 10/27/2019 Blood cultures reporting MSSA,antibiotics changed to cefazolin. Repeat blood cultures reporting gram-positive cocci in clusters. Afebrile. Complains of increased pain this morning on current regimen. Maintaining O2 sats in the 90s on 4 L nasal cannula. Denies cough. Staff reports patient's diet intake poor yesterday. Creatinine 0.8. No nausea, vomiting or diarrhea. 10/30/20 maintained on Kefzol for MSSA bacteremia. Repeat cultures reporting persistent bacteremia. Most recent repeat blood culture of 10/29 reporting no growth at 24 hours.Cardiology consulted for possible DAMARIS secondary to thickened aortic valve on echo, rule out vegetation. Echo reporting EF 50-55%, moderate tricuspid regurgitation, moderate pulmonary hypertension. Reports less pain last night. Improving, currently no pain with deep breathing. Afebrile. Maintaining O2 sats in the 90s on 3 L nasal cannula. 10/31/2020 reports slept well. Currently shallow breathing with thoracic pain. Reports right foot pain controlled. Completed DAMARIS, tolerated well, reported no evidence of vegetation, no shunting across interatrial septum, mild to moderate mitral and tricuspid regurgitation,. Blood culture of October 29 reporting no growth at 48 hours. Denies nausea vomiting or diarrhea. Hemoglobin 7.8. 11/01/2020 Maintained on cefazolin. Persistent bacteremia with unclear etiology, DAMARIS reporting no vegetation .scheduled for WBC scan today. Afebrile, normal WBC. Hemoglobin 7.7. Maintaining O2 sats in the high 90s on 3 L nasal cannula. Denies chest pain, palpitations or shortness of breath. Complains of feeling bloated. Pain controlled. 11/02/2020 completed WBC scan yesterday, reporting abnormal increased uptake in the shaft of the left femur could possibly be related to osteomyelitis, mild increased uptake also in the intertrochanteric right femur of uncertain significance. Left femur shaft/stump tender to touch but not super painful. Scheduled for picc line placement, Xarelto placed on hold. BALTA inhibitor ini tiated history as per cardiology, hypertensive, recently medicated for pain. Also asking for increase in pain medication. Denies chest pain, palpitations. Afebrile. Objective - Vital Signs Vital signs: Vital Signs Temp 97.7 F 11/02/20 07:44 Pulse 70 11/02/20 08:00 Resp 16 11/02/20 08:00 BP 168/88 11/02/20 09:09 Pulse Ox 100 11/02/20 07:44 Intake & Output 11/01/20 11/02/20 11/02/20 18:59 06:59 18:59 Intake Total 200 Balance 200 Intake: Oral 200 Other: Voiding Method Urinal Urinal Urinal Diaper Diaper Diaper Incontinent Incontinent Incontinent # Voids 3 2 # Bowel Movements 1 - Exam - Exam General: frail, obese, sitting up in bed, NAD. Lungs: diminished air entry, no rhonchi, wheezes, or crackles. CV: Regular rate and rhythm, no murmur. Peripheral pulses 2+ Abdomen: soft, nondistended, no organomegaly. Positive bowel sounds. Skin: warm and dry. R foot gauze dressing clean dry and intact. Microbiology 11/01/20 05:45 Blood Blood Culture - Preliminary No Growth after 24 hours 10/29/20 05:43 Blood Blood Culture - Preliminary No Growth after 96 hours 10/28/20 05:58 Blood Blood Culture Gram Stain - Final 10/28/20 05:58 Blood Blood Culture - Final Staphylococcus aureus 10/28/20 05:58 Blood Blood Culture - Final 10/26/20 05:28 Blood Blood Culture Gram Stain - Final 10/26/20 05:28 Blood Blood Culture - Final Staphylococcus aureus 10/26/20 05:28 Blood Blood Culture - Final 10/24/20 05:28 Blood Blood Culture Gram Stain - Final 10/24/20 05:28 Blood Blood Culture - Final Staphylococcus aureus 10/24/20 05:28 Blood Blood Culture - Final - Labs CBC & Chem 7: 11/01/20 05:45 11/01/20 05:45 Labs: Abnormal Lab Results - Last 24 Hours (Table) 11/01/20 11/01/20 Range/Units 05:45 05:45 ESR 104 H (0-15) mm/hr BUN/Creatinine Ratio 33.33 H (12.00-20.00) Ratio Glucose 122 H (70-110) mg/dL Calcium 8.1 L (8.7-10.3) mg/dL C-Reactive Protein 3.2 H (0.0-0.8) mg/dL Microbiology - Last 24 Hours (Table) 11/01/20 05:45 Blood Culture - Preliminary Blood No Growth after 24 hours 10/29/20 05:43 Blood Culture - Preliminary Blood No Growth after 96 hours Assessment and Plan Assessment: Sepsis secondary to MSSA bacteremia, etiology unclear, possible skin, possible pneumonia. Persistent bacteremia. DAMARIS reported no vegetation, no shunting. Bone scan reporting suspected hyperemia involving right ankle and foot, positive findings at the right ankle; osteomyelitis or inflammatory arthropathia such as RA. Infectious disease and orthopedic surgery following. WBC scan reported abnormal increased uptake in the shaft of the left femur could possibly be related to osteomyelitis, mild increased uptake also in the intertrochanteric right femur of uncertain significance. Acute COPD exacerbation Acute on chronic hypoxic respiratory failure, multifactorial, secondary to the above and to bacteremia, sepsis. Atelectasis Lactic acidosis Thoracic back pain Rheumatoid arthritis Chronic compression fractures with deformity at T12 L1 L3 and L4 without any evidence of new fracture Chronic thoracic and low back pain History of left lower extremity AKA Moderate pulmonary hypertension Moderate tricuspid regurgitation Anemia, etiology unclear, stool for occult blood pending. Plan: Continue on current medication regime, monitoring and symptomatic treatment.WBC scan pending. maintain IV antibiotics of cefazolin. Xarelto placed on hold, scheduled for PICC line placement. MS Contin increased to 3 times a day. Patient initially receptive to subacute rehab, but now he and family requesting to return home with home care at discharge. Continue aggressive pulmonary toileting with incentive spirometer reinforced. Stool for occult blood was not yet collected .Discharge planning in progress pending PICC line placement/discussed with case management. The impression and plan of care has been dictated as directed. : I performed a history and examination of this patient, discussed the same with the dictator. I agree with the dictator's note ,documented as a scribe. Any additional findings or plans will be noted.
[2020-11-02 12:47] VITALS: RESP 20
[2020-11-02] MEDS: ATORVASTATIN 40 MG TAB PO SCH (20:38)
[2020-11-02] MEDS ORDERED: MORPHINE SULFATE ER 15 MG TABLET PO SCH (21:00)
--- NOTE | 2020-11-02 21:59 | PN ---
PROGRESS NOTE DATE OF SERVICE: 11/02/2020 REASON FOR FOLLOWUP: MSSA bacteremia. INTERVAL HISTORY: The patient is currently afebrile. The patient is breathing comfortably. The patient is more awake and alert. Denies having any chest pain or shortness of breath or cough. No nausea, no vomiting, no abdominal pain or pain to the right hip area. PHYSICAL EXAMINATION: Blood pressure 148/75 with a pulse of 72, temperature 97.7. He is 98% on 3 L nasal cannula. General description is an elderly male lying in bed in no distress. RESPIRATORY SYSTEM: Unlabored breathing. Clear to auscultation anteriorly. HEART: S1, S2. Regular rate and rhythm. ABDOMEN: Soft. No tenderness. Right hip currently with no swelling, no redness. LABS: Hemoglobin 7.6, white count 7.7, BUN of 20, creatinine 0.6. DIAGNOSTIC IMPRESSION AND PLAN: Patient with MSSA bacteremia with blood culture positive for 4 to 5 days, concerning for deep infection. He did have extensive workup, including a WBC scan which shows activity, right hip. The patient does not have any symptoms in right hip area. Clinically doubt septic arthritis. Orthopedics evaluation requested. The positivity on the ankle was mostly at the ankle joint itself, not where the patient did have the wound, and the DAMARIS was negative. In view of the bacteremia, will recommend cefazolin 2 grams q.8 hours for 4 to 6 weeks and close outpatient followup. PICC line has been requested. Once antibiotic is arranged, he will be able to go home from ID standpoint. MMODL / IJN: [id number] /
[2020-11-03] MEDS: SIMETHICONE 80 MG CHEWABLE PO SCH ×3 (00:39→12:32)
[2020-11-03] MEDS: oxyCODONE-APAP 10-325MG 1 EACH TAB PO PRN ×4 (00:42→15:14)
[2020-11-03] MEDS: SODIUM CHLORIDE 0.9% 1,000 ML IV SCH (00:46)
[2020-11-03] MEDS: methylPREDNISolone SOD SUCCI 40 MG/ML 1 ML VIAL IV SCH ×2 (03:34→12:35)
[2020-11-03 07:06] LABS: Anisocytosis Slight; Basophils % (A) 0 %; Eosinophils % (A) 0 %; HCT 26.6 % (39.0-53.0); Hypochromasia Marked; Lymphocytes # (A) 0.7 k/uL (1.0-4.8); Lymphocytes % (A) 6 %; MCH 21.2 pg (25.0-35.0); MCHC 30.1 g/dL (31.0-37.0); MCV 70.5 fL (80.0-100.0); Mean Platelet Volume 7.4; Microcytosis Marked; Monocytes # (A) 0.3 k/uL (0-1.0); Monocytes % (A) 3 %; Neutrophils # (A) 9.7 k/uL (1.3-7.7); Neutrophils % (A) 91 %; Platelet Count 560 k/uL (150-450); Poikilocytosis Slight; RBC 3.78 m/uL (4.30-5.90); RDW 18.1 % (11.5-15.5); WBC 10.7 k/uL (3.8-10.6)
[2020-11-03] MEDS: BUDESONIDE 0.5 MG/2 ML NEBU INHALATION SCH (07:29)
[2020-11-03] MEDS: IPRATROPIUM-ALBUTEROL 3 ML NEB INHALATION PRN (07:29)
[2020-11-03] MEDS: PANTOPRAZOLE 40 MG TABLET PO SCH (07:59)
[2020-11-03] MEDS ORDERED: MORPHINE SULFATE ER 15 MG TABLET PO SCH (08:15)
[2020-11-03] MEDS: METOPROLOL TARTRATE 50 MG TAB PO SCH (08:53)
[2020-11-03] MEDS: NYSTATIN 100,000 UNIT/ML SUSP 500,000 UNIT/5 ML CUP PO SCH ×2 (08:55→12:32)
[2020-11-03] MEDS ORDERED: lisinopriL 5 MG TAB PO STA (08:57)
[2020-11-03] MEDS ORDERED: MORPHINE SULFATE ER 30 MG TABLET PO SCH (09:00)
--- NOTE | 2020-11-03 09:02 | P.DS ---
Providers Date of admission: 10/24/20 04:16 Expected date of discharge: 11/03/20 Attending physician: Clarence Steven MD Consults: 10/24/20 08:16 Consult Physician Routine Consulting Provider: Antoine Steele Consult Reason/Comments: back pain Do you want consulting provider notified?: Yes 10/24/20 23:20 Consult Physician Routine Consulting Provider: Cherelle Pendleton Consult Reason/Comments: bacteremia question osteomyelitis Do you want consulting provider notified?: Yes 10/30/20 12:46 Consult Physician Routine Consulting Provider: Jennifer Yousif Consult Reason/Comments: av thickened per Echo, DAMARIS r/o Vegetation, MSSA jose roberto teremia with evidence of Do you want consulting provider notified?: Yes Primary care physician: Diane Steven Hospital Course: Final Diagnoses: Sepsis secondary to MSSA bacteremia, etiology unclear, possible skin, possible pneumonia. Persistent bacteremia. DAMARIS reported no vegetation, no shunting. Bone scan reported suspected hyperemia involving right ankle and foot, positive findings at the right ankle; osteomyelitis or inflammatory arthropathia such as RA. WBC scan reported abnormal increased uptake in the shaft of the left femur could possibly be related to osteomyelitis, mild increased uptake also in the intertrochanteric right femur of uncertain significance. Acute COPD exacerbation Acute on chronic hypoxic respiratory failure, multifactorial, secondary to the above and to bacteremia, sepsis. Atelectasis Lactic acidosis Thoracic back pain Rheumatoid arthritis Chronic compression fractures with deformity at T12 L1 L3 and L4 without any evidence of new fracture Chronic thoracic and low back pain History of left lower extremity AKA Moderate pulmonary hypertension Moderate tricuspid regurgitation Anemia, etiology unclear, stool for occult blood pending. Hospital course:Assessment a 5-year-old gentleman admitted with multiple medical issues including uncontrollable pain especially of the back,sepsis, bacteremia. Underwent bone scan yesterday reporting suspected hyperemia involving right ankle and foot, positive findings at the right ankle; osteomyelitis or inflammatory arthropathia such as RA. Evaluated by orthopedic surgery and ID, recommendations noted and appreciated. Antibiotics further adjusted, maintaining vancomycin and discontinuing Zosyn. Renal function remains stable. Blood cultures repeated and pending. CRP elevated at 32. 2. alk phos down to 142. Potassium 3.4. Blood sugars controlled. Afebrile, WBC trending down,17. tachycardic. Yesterday IV fluids discontinued, received 1 dose of Lasix. Maintaining O2 sats in the 90s on 4 L nasal cannula. Anticoagulated on Xarelto. Pain better controlled today. 10/27/2019 Blood cultures reporting MSSA,antibiotics changed to cefazolin. Repeat blood cultures reporting gram-positive cocci in clusters. Afebrile. Complains of increased pain this morning on current regimen. Maintaining O2 sats in the 90s on 4 L nasal cannula. Denies cough. Staff reports patient's diet intake poor yesterday. Creatinine 0.8. No nausea, vomiting or diarrhea. 10/30/20 maintained on Kefzol for MSSA bacteremia. Repeat cultures reporting persistent bacteremia. Most recent repeat blood culture of 10/29 reporting no growth at 24 hours.Cardiology consulted for possible DAMARIS secondary to thickened aortic valve on echo, rule out vegetation. Echo reporting EF 50-55%, moderate tricuspid regurgitation, moderate pulmonary hypertension. Reports less pain last night. Improving, currently no pain with deep breathing. Afebrile. Maintaining O2 sats in the 90s on 3 L nasal cannula. 10/31/2020 reports slept well. Currently shallow breathing with thoracic pain. Reports right foot pain controlled. Completed DAMARIS, tolerated well, reported no evidence of vegetation, no shunting across interatrial septum, mild to moderate mitral and tricuspid regurgitation,. Blood culture of October 29 reporting no growth at 48 hours. Denies nausea vomiting or diarrhea. Hemoglobin 7.8. 11/01/2020 Maintained on cefazolin. Persistent bacteremia with unclear etiology, DAMARIS reporting no vegetation .scheduled for WBC scan today. Afebrile, normal WBC. Hemoglobin 7.7. Maintaining O2 sats in the high 90s on 3 L nasal cannula. Denies chest pain, palpitations or shortness of breath. Complains of feeling bloated. Pain controlled. 11/02/2020 completed WBC scan yesterday, reporting abnormal increased uptake in the shaft of the left femur could possibly be related to osteomyelitis, mild increased uptake also in the intertrochanteric right femur of uncertain significance. Left femur shaft/stump tender to touch but not super painful. Scheduled for picc line placement, Xarelto placed on hold. BALTA inhibitor initiated history as per cardiology, hypertensive, recently medicated for pain. Also asking for increase in pain medication. Denies chest pain, palpitations. Afebrile. 11/03/2020 Patient will be discharged home with home care today in a stable condition with guarded prognosis, pending PICC line placement today with DC IV antibiotics as per ID. The impression and plan of care has been dictated as directed. : I performed a history and examination of this patient, discussed the same with the dictator. I agree with the dictator's note ,documented as a scribe. Any additional findings or plans will be noted. Patient Condition at Discharge: Stable Plan - Discharge Summary Discharge Rx Participant: Yes New Discharge Prescriptions: New Ipratropium-Albuterol Nebulize [Duoneb 0.5 mg-3 mg/3 ml Soln] 3 ml INHALATION QID #120 units Nystatin 100,000 Unit/ml Susp [Mycostatin Oral Susp] 500,000 unit PO QID ml Budesonide [Pulmicort] 0.5 mg INHALATION RT-BID ml Changed Morphine Sulfate ER [Ms Contin] 15 mg PO TID #0 No Action Gabapentin [Neurontin] 300 mg PO TID #9 cap predniSONE 10 mg PO TID Atorvastatin [Lipitor] 40 mg PO HS #90 tab Metoprolol Tartrate [Lopressor] 50 mg PO DAILY #90 tab Pantoprazole [Protonix] 40 mg PO BID #180 tablet. oxyCODONE-APAP 10-325MG [Percocet 10-325 mg] 1 tab PO QID lisinopriL [Zestril] 5 mg PO DAILY Rivaroxaban [Xarelto] 20 mg PO AC-SUPPER Discharge Medication List Gabapentin [Neurontin] 300 mg PO TID #9 cap 02/21/20 [Rx] predniSONE 10 mg PO TID 07/10/20 [History] Atorvastatin [Lipitor] 40 mg PO HS #90 tab 07/24/20 [Rx] Metoprolol Tartrate [Lopressor] 50 mg PO DAILY #90 tab 07/24/20 [Rx] Pantoprazole [Protonix] 40 mg PO BID #180 tablet. 07/24/20 [Rx] Rivaroxaban [Xarelto] 20 mg PO AC-SUPPER 10/24/20 [History] lisinopriL [Zestril] 5 mg PO DAILY 10/24/20 [History] oxyCODONE-APAP 10-325MG [Percocet 10-325 mg] 1 tab PO QID 10/24/20 [History] Budesonide [Pulmicort] 0.5 mg INHALATION RT-BID ml 11/02/20 [Rx] Ipratropium-Albuterol Nebulize [Duoneb 0.5 mg-3 mg/3 ml Soln] 3 ml INHALATION QID #120 units 11/02/20 [Rx] Morphine Sulfate ER [Ms Contin] 15 mg PO TID #0 11/02/20 [Rx] Nystatin 100,000 Unit/ml Susp [Mycostatin Oral Susp] 500,000 unit PO QID ml 11/02/20 [Rx] Follow up Appointment(s)/Referral(s): [facility] [facility] [NON-STAFF] - (Call to inquire about a rolling shower chair. ) [facility], [NON-STAFF] - [facility],Infusion [NON-STAFF] - Chepe Draper MD [STAFF PHYSICIAN] - 2 Weeks [facility] [NON-STAFF] - (Call to inquire about a rolling shower chair. ) Diane Steven, [Primary Care Provider] - 3 Days Activity/Diet/Wound Care/Special Instructions: Per Dr. Pendleton - patient will go home on IV antibiotics - Cefazolin 2 gm q8 hours for 6 weeks - as an outpatient. [facility] will deliver supplies to patient's house on 11/03/20. They will call family before delivery. [facility] will make their first visit in the afternoon on 11/03/2020 to begin IV antibiotic teaching and infusions in the home. They will call family to set up the time.
[2020-11-03] MEDS ORDERED: lisinopriL 5 MG TAB PO ONE (09:15)
[2020-11-03 10:31] VITALS: PULSE 84
[2020-11-03 10:39] LABS: African American GFR (CKD) 115.6 (60.0-200.0); Anion Gap 7.4 mmol/L (4.00-12.00); Calcium 7.8 mg/dL (8.7-10.3); Carbon Dioxide 29.6 mmol/L (21.6-31.8); Non-African American GFR(CKD) 99.7 (60.0-200.0); Potassium 4.3 mmol/L (3.5-5.5)
[2020-11-03] MEDS ORDERED: LIDOCAINE 1% INJ 10MG/ML (20 ML MDV) ONE (10:57)
[2020-11-03] MEDS ORDERED: LIDOCAINE 1% INJ 10MG/ML (20 ML MDV) SQ ONE (11:03)
[2020-11-03 12:54] VITALS: BP 156/94; TEMP 97.5
--- NOTE | 2020-11-03 13:21 | IR ---
EXAMINATION TYPE: IR cvc insert >=5 years DATE OF EXAM: 11/03/2020 COMPARISON: NONE CLINICAL HISTORY: Infection Needs long-term intravenous access for antibiotics. PROCEDURE: Hand hygiene obtained with soap and water and alcohol-based hand rub. After informed consent, the skin overlying the left brachial vein was localized with ultrasound and n oted to be compressible and patent. An ultrasound image was obtained and submitted on the patient's chart. The overlying skin was prepped and draped and Lidocaine was used for local anesthesia. A ski n venkata was made with a scalpel. Access was gained to the vein under ultrasound guidance with a 21 ga uge needle and a 0.018 inch wire was advanced. Access site was dilated with Peel-Away sheath and cat heter tailored to the appropriate length and advanced such that the distal tip is at the cavoatrial j unction. Spot image was obtained verifying placement. Catheter was fixed to the skin and a sterile dressing was placed following hemostasis. Catheter was aspirated and flushed with saline. Patient w as discharged in stable condition without complication. Maximal barrier technique is utilized. Ultra sound image is documented on the chart. Ultrasound used with sterile technique. Fluoro time and fluoroscopic images submitted to document procedure: 1.3 minutes fluoroscopy time, 63 intraoperative C-arm images IMPRESSION: STATUS POST ULTRASOUND AND FLUOROSCOPIC GUIDED PICC LINE PLACEMENT, READY FOR USE. THIS PROCEDURE WAS PERFORMED BY THE UNDERSIGNED.
--- NOTE | 2020-11-03 16:56 | PN ---
PROGRESS NOTE DATE OF SERVICE: 11/03/2020 REASON FOR FOLLOWUP: MSSA bacteremia. INTERVAL HISTORY: The patient is currently afebrile. The patient is feeling better, breathing comfortably. The patient denies having any chest pain or shortness of breath or cough. No abdominal pain and no diarrhea has been reported. PHYSICAL EXAMINATION: Blood pressure 156/94, pulse of 84, temperature 97.5. He is 99% on 3 L nasal cannula. General description is an elderly male lying in bed in no distress. RESPIRATORY SYSTEM: Unlabored breathing. Clear to auscultation anteriorly. HEART: S1, S2. Regular rate and rhythm. ABDOMEN: Soft. No tenderness. Right foot is currently dressed. No obvious drainage on the dressing. LABS: Hemoglobin is 8, white count 10.7, BUN of 21, creatinine 0.6 with a sed rate of 104. DIAGNOSTIC IMPRESSION AND PLAN: Patient with MSSA bacteremia in this patient who did have an extensive workup with no obvious focus. However, in view of extensive infection, recommend at least 4 to 6 weeks of IV cefazolin 2 grams q.8 hours, weekly monitoring of blood work and close outpatient followup. MMODL / IJN: [id number] /
[2020-11-04] MEDS ORDERED: lisinopriL 10 MG TAB PO SCH ×2 (09:00)
== END 2020-11-03 16:44 | disposition home or self-care (01) | DRG 871 ==
LOC: EC 00:50 → 4SSUR 04:16
PROVIDERS: ADMIT Family Medicine; ATTEND Family Medicine
PROC: B246ZZ4 Ultrasonography of Right and Left Heart, Transesophageal (ICD-10-PCS; principal; 2020-10-31 10:10)
PROC: 02HV33Z Insertion of Infusion Device into Superior Vena Cava, Percutaneous Approach (ICD-10-PCS; 2020-11-03)
DX: A41.01 Sepsis due to Methicillin susceptible Staphylococcus aureus (principal); J18.9 Pneumonia, unspecified organism; J96.21 Acute and chronic respiratory failure with hypoxia; E87.2 Acidosis; J44.0 Chronic obstructive pulmonary disease with (acute) lower respiratory infection; J44.1 Chronic obstructive pulmonary disease with (acute) exacerbation; J81.1 Chronic pulmonary edema; J98.11 Atelectasis; L03.115 Cellulitis of right lower limb; M86.171 Other acute osteomyelitis, right ankle and foot; M48.54XA Collapsed vertebra, not elsewhere classified, thoracic region, initial encounter for fracture; M48.56XA Collapsed vertebra, not elsewhere classified, lumbar region, initial encounter for fracture; Z86.14 Personal history of Methicillin resistant Staphylococcus aureus infection; D64.9 Anemia, unspecified; E11.51 Type 2 diabetes mellitus with diabetic peripheral angiopathy without gangrene; E11.69 Type 2 diabetes mellitus with other specified complication; E78.5 Hyperlipidemia, unspecified; E86.0 Dehydration; F32.9 Major depressive disorder, single episode, unspecified; F41.9 Anxiety disorder, unspecified; Z20.822 Contact with and (suspected) exposure to COVID-19; G89.29 Other chronic pain; I08.1 Rheumatic disorders of both mitral and tricuspid valves; I10 Essential (primary) hypertension; I25.10 Atherosclerotic heart disease of native coronary artery without angina pectoris; I27.20 Pulmonary hypertension, unspecified; M06.9 Rheumatoid arthritis, unspecified; M19.90 Unspecified osteoarthritis, unspecified site; Y95 Nosocomial condition; Z79.01 Long term (current) use of anticoagulants; Z79.899 Other long term (current) drug therapy; Z80.9 Family history of malignant neoplasm, unspecified; Z86.711 Personal history of pulmonary embolism; Z86.718 Personal history of other venous thrombosis and embolism; Z87.891 Personal history of nicotine dependence; Z89.512 Acquired absence of left leg below knee; Z89.612 Acquired absence of left leg above knee; Z95.5 Presence of coronary angioplasty implant and graft; Z96.619 Presence of unspecified artificial shoulder joint; Z96.652 Presence of left artificial knee joint; Z82.61 Family history of arthritis; Z82.0 Family history of epilepsy and other diseases of the nervous system; Z96.611 Presence of right artificial shoulder joint; Z87.01 Personal history of pneumonia (recurrent)
CPT/HCPCS: 36415; 36573; 70450; 71045; 71046; 72072; 72100; 78306; 78315; 80048; 80053; 80202; 81003; 82140; 82550; 82565; 83605; 83735; 83880; 84100; 84484; 85025; 85027; 85610; 85652; 85730; 86140; 87040; 87077; 87186; 87635; 93005; 93306; 93312; 93320; 93325; 94640; 94760; 96361; 96365; 96367; 96375; 96376; 99291

== ENCOUNTER 2020-12-22 10:58 | Inpatient (IN) | payer MEDICARE ==
[2020-12-22] MEDS ORDERED: ALBUTEROL NEBULIZED 2.5 MG/3 ML INHALATION STA (11:05)
[2020-12-22] MEDS ORDERED: IPRATROPIUM 0.5 MG/2.5 ML NEBU INHALATION STA (11:05)
[2020-12-22] MEDS ORDERED: CEFEPIME 2 GM in SODIUM CHLORIDE 0.9% 100 ML IVPB STA (11:06)
[2020-12-22] MEDS ORDERED: LORazepam 2 MG/ML INJ IV PRN (11:12)
[2020-12-22] MEDS ORDERED: SODIUM CHLORIDE 0.9% 1,000 ML IV ONE ×3 (11:37→16:50)
--- NOTE | 2020-12-22 11:50 | ED ---
General Adult HPI - General Chief complaint: Shortness of Breath Stated complaint: SOB Source: EMS, RN notes reviewed, old records reviewed Mode of arrival: EMS Limitations: altered mental status - History of Present Illness Initial comments: 75-year-old male history of COPD presenting with severe respiratory distress. He had been trialed on CPAP by paramedics during transport but was unable to tolerate CPAP and was bagged with BVM. Upon arrival he is maintaining his airway. He will respond to voice. He is in severe respiratory distress unable to answer any questions. History is limited to the history obtained by paramedics. - Related Data Home Medications Medication Instructions Recorded Confirmed predniSONE 10 mg PO TID 07/10/20 12/22/20 Rivaroxaban [Xarelto] 20 mg PO AC-SUPPER 10/24/20 12/22/20 oxyCODONE-APAP 10-325MG [Percocet 1 tab PO QID 10/24/20 12/22/20 10-325 mg] Budesonide [Pulmicort] 0.5 mg INHALATION RT-BID 12/22/20 12/22/20 Ipratropium-Albuterol Nebulize 3 ml INHALATION RT-QID 12/22/20 12/22/20 [Duoneb 0.5 mg-3 mg/3 ml Soln] Meclizine [Antivert] 25 mg PO TID PRN 12/22/20 12/22/20 Morphine Sulfate ER [Ms Contin] 15 mg PO BID 12/22/20 12/22/20 Previous Rx's Medication Instructions Recorded Gabapentin [Neurontin] 300 mg PO TID #9 cap 02/21/20 Atorvastatin [Lipitor] 40 mg PO HS #90 tab 07/24/20 Metoprolol Tartrate [Lopressor] 50 mg PO DAILY #90 tab 07/24/20 Pantoprazole [Protonix] 40 mg PO BID #180 tablet.dr 07/24/20 Nystatin 100,000 Unit/ml Susp 500,000 unit PO QID ml 11/02/20 [Mycostatin Oral Susp] lisinopriL [Zestril] 10 mg PO DAILY #0 11/03/20 Allergies Allergy/AdvReac Type Severity Reaction Status Date / Time No Known Allergies Allergy Verified 12/22/20 11:53 Review of Systems ROS Statement: Those systems with pertinent positive or pertinent negative responses have been documented in the HPI. ROS Other: All systems not noted in ROS Statement are negative. Past Medical History Past Medical History: Coronary Artery Disease (CAD), COPD, Deep Vein Thrombosis (DVT), Hyperlipidemia, Musculoskeletal Disorder, Pneumonia, Pulmonary Embolus (PE), Rheumatoid Arthritis (RA), Vascular Disorder Additional Past Medical History / Comment(s): History of pancreatitis, 2012 past medical record documents viral pericarditis but pt denies, gastritis, Fluid build up rt lung - previous chest tube - pt unsure what it is from, BOTTOM TEETH REMOVED 09-01-18, wounds in his right lower extremity, left [id number] stump and left elbow. History of multiple compression fractures his thoracic and lumbar spine particularly at T12-L1 and L3 and L4. 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 right ankle sx, thoracentesis, chest tube rt lung, LT above the knee amputation Past Anesthesia/Blood Transfusion Reactions: No Reported Reaction Additional Past Anesthesia/Blood Transfusion Reaction / Comment(s): Pt states he has never recieved blood. Date of Last Stent Placement:: 12/10/16 Past Psychological History: Anxiety, Depression Smoking Status: Former smoker Past Alcohol Use History: None Reported Past Drug Use History: None Reported - Past Family History Sister(s) Family Medical History: Cancer Additional Family Medical History / Comment(s): pt's father had ra, mother had 16 children was healthy most of her life age 93 from dementia. Mother Family Medical History: Dementia Additional Family Medical History / Comment(s): Mother from dementia at the age of 93 yrs. Father Family Medical History: Rheumatoid Arthritis (RA) General Exam Limitations: no limitations General appearance: obtunded, in distress Head exam: Present: atraumatic, normocephalic Eye exam: Present: normal appearance, PERRL ENT exam: Present: mucous membranes dry Respiratory exam: Present: respiratory distress, rhonchi, decreased breath sounds, prolonged expiratory Cardiovascular Exam: Present: normal rhythm, tachycardia GI/Abdominal exam: Present: soft. Absent: distended, tenderness, guarding, rebound Extremities exam: Present: other (Left [id number] amputation, chronic wound to the right lower extremity) Neurological exam: Absent: motor sensory deficit (Patient does not have) Skin exam: Present: dry, cyanosis, pallor Course Vital Signs 12/22/20 12/22/20 12/22/20 10:59 11:00 11:23 Temperature 99.3 F Pulse Rate 67 125 H Respiratory 24 30 H 24 Rate Blood Pressure 139/83 95/69 O2 Sat by Pulse 90 L 94 L Oximetry 12/22/20 12/22/20 12/22/20 11:28 11:48 11:51 Temperature Pulse Rate 115 H 118 H 112 H Respiratory 24 18 18 Rate Blood Pressure 123/101 73/30 107/85 O2 Sat by Pulse 98 99 Oximetry 12/22/20 12/22/20 12/22/20 11:57 12:04 12:12 Temperature Pulse Rate 117 H 116 H 114 H Respiratory 18 18 18 Rate Blood Pressure 61/39 68/43 67/46 O2 Sat by Pulse 100 100 100 Oximetry 12/22/20 12/22/20 12/22/20 12:20 12:29 12:40 Temperature Pulse Rate 112 H 110 H 107 H Respiratory 18 18 18 Rate Blood Pressure 77/48 82/50 92/56 O2 Sat by Pulse 100 100 100 Oximetry EKG Findings - EKG Comments: EKG Findings:: Sinus tachycardia, low voltage, rate of 118, W[place] interval 138, QRS duration 82, QTC 456 tremor artifact in the inferior leads. No ST segment elevation. Procedures - Intubation Sedative: Versed Mg Given: 5 Paralytic: Rocuronium Mg Given: 50 Laryngoscope: Jared Size: 3 ET Tube Size: 7.5 ET Tube Uncuffed: No Tube Secured Depth (cm): 23 Tube Secured Location: lips Tube Placement Confirmation: visualized tube passing through cords, equal breath sounds bilaterally, no breath sounds over epigastrium, confirmation by capnometry Patient Tolerated Procedure: well Medical Decision Making - Medical Decision Making 75-year-old male severe respiratory distress unable to contribute to the history. Patient is unable to protect his airway and is intubated in the emergency department. She has significant lab abnormalities. He is acidotic. He has a high lactic acidosis. He is in acute renal failure with a creatinine of 5 baseline of normal. He's given a total of 2.5 L normal saline bolus and then initiated a continuous IV fluids. Additionally he started on broad-spectrum antibiotics for sepsis and suspected pneumonia. Case is discussed both with the admitting physician Dr. Osman and with the pulmonary epic willow analyst Dr. Samuel. Diagnosis: Respiratory failure requiring intubation, acute renal failure, sepsis, lactic acidosis - Lab Data Result diagrams: 12/22/20 11:16 12/22/20 11:16 Lab Results 12/22/20 12/22/20 12/22/20 Range/Units 11:16 11:16 11:16 WBC 10.1 (3.8-10.6) k/uL RBC 4.44 (4.30-5.90) m/uL Hgb 10.5 L (13.0-17.5) gm/dL Hct 36.5 L (39.0-53.0) % MCV 82.1 D (80.0-100.0) fL MCH 23.7 L (25.0-35.0) pg MCHC 28.8 L (31.0-37.0) g/dL RDW 23.4 H (11.5-15.5) % Plt Count 280 (150-450) k/uL MPV 8.1 Neutrophils % 69 % Lymphocytes % 26 % Monocytes % 4 % Eosinophils % 0 % Basophils % 0 % Neutrophils # 6.9 (1.3-7.7) k/uL Lymphocytes # 2.6 (1.0-4.8) k/uL Monocytes # 0.4 (0-1.0) k/uL Eosinophils # 0.0 (0-0.7) k/uL Basophils # 0.0 (0-0.2) k/uL Manual Slide Review Performed Toxic Granulation Present Hypochromasia Marked Poikilocytosis (manual Present Anisocytosis Moderate Microcytosis Moderate Crenated Cell Present Fragmented RBCs Present PT 11.8 (9.0-12.0) sec INR 1.1 (<1.2) APTT 24.7 (22.0-30.0) sec VBG pH (7.31-7.41) VBG pCO2 (37-51) mmHg VBG HCO3 (24-28) mmol/L Sodium 139 (137-145) mmol/L Potassium 5.1 (3.5-5.1) mmol/L Chloride 109 H (98-107) mmol/L Carbon Dioxide 15 L (22-30) mmol/L Anion Gap 15 mmol/L BUN 46 H (9-20) mg/dL Creatinine 5.48 H (0.66-1.25) mg/dL Est GFR (CKD-EPI)AfAm 11 (>60 ml/min/1.73 sqM) Est GFR (CKD-EPI)NonAf 10 (>60 ml/min/1.73 sqM) Glucose 133 H (74-99) mg/dL Plasma Lactic Acid Harsh (0.7-2.0) mmol/L Calcium 7.7 L (8.4-10.2) mg/dL Total Bilirubin 0.4 (0.2-1.3) mg/dL AST 25 (17-59) U/L ALT 11 (4-49) U/L Alkaline Phosphatase 79 (38-126) U/L Troponin I (0.000-0.034) ng/mL NT-Pro-B Natriuret Pep pg/mL Total Protein 4.7 L (6.3-8.2) g/dL Albumin 2.1 L (3.5-5.0) g/dL Urine Color Urine Appearance (Clear) Urine pH (5.0-8.0) Ur Specific [place] (1.001-1.035) Urine Protein (Negative) Urine Glucose (UA) (Negative) Urine Ketones (Negative) Urine Blood (Negative) Urine Nitrite (Negative) Urine Bilirubin (Negative) Urine Urobilinogen (<2.0) mg/dL Ur Leukocyte Esterase (Negative) Urine RBC (0-5) /hpf Urine WBC (0-5) /hpf Urine WBC Clumps (None) /hpf Ur Squamous Epith Cells (0-4) /hpf Urine Bacteria (None) /hpf Hyaline Casts (0-2) /lpf Urine Mucus (None) /hpf Urine Yeast (Budding) (None) /hpf Coronavirus (PCR) (Not Detectd) 12/22/20 12/22/20 12/22/20 Range/Units 11:16 11:16 11:16 WBC (3.8-10.6) k/uL RBC (4.30-5.90) m/uL Hgb (13.0-17.5) gm/dL Hct (39.0-53.0) % MCV (80.0-100.0) fL MCH (25.0-35.0) pg MCHC (31.0-37.0) g/dL RDW (11.5-15.5) % Plt Count (150-450) k/uL MPV Neutrophils % % Lymphocytes % % Monocytes % % Eosinophils % % Basophils % % Neutrophils # (1.3-7.7) k/uL Lymphocytes # (1.0-4.8) k/uL Monocytes # (0-1.0) k/uL Eosinophils # (0-0.7) k/uL Basophils # (0-0.2) k/uL Manual Slide Review Toxic Granulation Hypochromasia Poikilocytosis (manual Anisocytosis Microcytosis Crenated Cell Fragmented RBCs PT (9.0-12.0) sec INR (<1.2) APTT (22.0-30.0) sec VBG pH (7.31-7.41) VBG pCO2 (37-51) mmHg VBG HCO3 (24-28) mmol/L Sodium (137-145) mmol/L Potassium (3.5-5.1) mmol/L Chloride (98-107) mmol/L Carbon Dioxide (22-30) mmol/L Anion Gap mmol/L BUN (9-20) mg/dL Creatinine (0.66-1.25) mg/dL Est GFR (CKD-EPI)AfAm (>60 ml/min/1.73 sqM) Est GFR (CKD-EPI)NonAf (>60 ml/min/1.73 sqM) Glucose (74-99) mg/dL Plasma Lactic Acid Harsh 7.9 H* (0.7-2.0) mmol/L Calcium (8.4-10.2) mg/dL Total Bilirubin (0.2-1.3) mg/dL AST (17-59) U/L ALT (4-49) U/L Alkaline Phosphatase (38-126) U/L Troponin I 0.087 H* (0.000-0.034) ng/mL NT-Pro-B Natriuret Pep 2150 pg/mL Total Protein (6.3-8.2) g/dL Albumin (3.5-5.0) g/dL Urine Color Urine Appearance (Clear) Urine pH (5.0-8.0) Ur Specific [place] (1.001-1.035) Urine Protein (Negative) Urine Glucose (UA) (Negative) Urine Ketones (Negative) Urine Blood (Negative) Urine Nitrite (Negative) Urine Bilirubin (Negative) Urine Urobilinogen (<2.0) mg/dL Ur Leukocyte Esterase (Negative) Urine RBC (0-5) /hpf Urine WBC (0-5) /hpf Urine WBC Clumps (None) /hpf Ur Squamous Epith Cells (0-4) /hpf Urine Bacteria (None) /hpf Hyaline Casts (0-2) /lpf Urine Mucus (None) /hpf Urine Yeast (Budding) (None) /hpf Coronavirus (PCR) (Not Detectd) 12/22/20 12/22/20 12/22/20 Range/Units 11:25 11:25 12:00 WBC (3.8-10.6) k/uL RBC (4.30-5.90) m/uL Hgb (13.0-17.5) gm/dL Hct (39.0-53.0) % MCV (80.0-100.0) fL MCH (25.0-35.0) pg MCHC (31.0-37.0) g/dL RDW (11.5-15.5) % Plt Count (150-450) k/uL MPV Neutrophils % % Lymphocytes % % Monocytes % % Eosinophils % % Basophils % % Neutrophils # (1.3-7.7) k/uL Lymphocytes # (1.0-4.8) k/uL Monocytes # (0-1.0) k/uL Eosinophils # (0-0.7) k/uL Basophils # (0-0.2) k/uL Manual Slide Review Toxic Granulation Hypochromasia Poikilocytosis (manual Anisocytosis Microcytosis Crenated Cell Fragmented RBCs PT (9.0-12.0) sec INR (<1.2) APTT (22.0-30.0) sec VBG pH 7.20 L* (7.31-7.41) VBG pCO2 44 (37-51) mmHg VBG HCO3 17 L (24-28) mmol/L Sodium (137-145) mmol/L Potassium (3.5-5.1) mmol/L Chloride (98-107) mmol/L Carbon Dioxide (22-30) mmol/L Anion Gap mmol/L BUN (9-20) mg/dL Creatinine (0.66-1.25) mg/dL Est GFR (CKD-EPI)AfAm (>60 ml/min/1.73 sqM) Est GFR (CKD-EPI)NonAf (>60 ml/min/1.73 sqM) Glucose (74-99) mg/dL Plasma Lactic Acid Harsh (0.7-2.0) mmol/L Calcium (8.4-10.2) mg/dL Total Bilirubin (0.2-1.3) mg/dL AST (17-59) U/L ALT (4-49) U/L Alkaline Phosphatase (38-126) U/L Troponin I (0.000-0.034) ng/mL NT-Pro-B Natriuret Pep pg/mL Total Protein (6.3-8.2) g/dL Albumin (3.5-5.0) g/dL Urine Color Yellow Urine Appearance Cloudy (Clear) Urine pH 5.0 (5.0-8.0) Ur Specific [place] 1.019 (1.001-1.035) Urine Protein Trace H (Negative) Urine Glucose (UA) Negative (Negative) Urine Ketones Negative (Negative) Urine Blood Negative (Negative) Urine Nitrite Negative (Negative) Urine Bilirubin Negative (Negative) Urine Urobilinogen <2.0 (<2.0) mg/dL Ur Leukocyte Esterase Large H (Negative) Urine RBC 25 H (0-5) /hpf Urine WBC 106 H (0-5) /hpf Urine WBC Clumps Moderate H (None) /hpf Ur Squamous Epith Cells 1 (0-4) /hpf Urine Bacteria Rare H (None) /hpf Hyaline Casts 40 H (0-2) /lpf Urine Mucus Occasional H (None) /hpf Urine Yeast (Budding) Rare H (None) /hpf Coronavirus (PCR) Not Detected (Not Detectd) Critical Care Time Critical Care Time: Yes Total Critical Care Time: 35 Disposition Clinical Impression: Sepsis, Lactic acidosis, COPD exacerbation, Acute renal failure Disposition: ADMITTED IP TO THIS HOSP Condition: Critical Is patient prescribed a controlled substance at d/c from ED?: No Referrals: Diane Steven DO [Primary Care Provider] - 1-2 days Decision to Admit Reason: Admit from EC Decision Date: 12/22/20 Decision Time: 12:46
[2020-12-22 11:51] LABS: VBG PH 7.2 (7.31-7.41)
[2020-12-22] MEDS ORDERED: MIDAZOLAM 1 MG/ML 5 ML VIAL IV STA (11:55)
[2020-12-22] MEDS ORDERED: ROCURONIUM 10 MG/ML (5 ML VIAL) IV STA (11:56)
[2020-12-22 11:59] LABS: INR 1.1 (<1.2); Partial Thromboplastin Time 24.7 sec (22.0-30.0); Prothrombin Time 11.8 sec (9.0-12.0)
[2020-12-22] MEDS ORDERED: VANCOMYCIN IV PER PHARMACY 1 EACH MISC MISCELLANE PRN (12:00)
[2020-12-22] MEDS ORDERED: AZITHROMYCIN 500 MG in SODIUM CHLORIDE 0.9% 250 ML IVPB STA (12:00)
[2020-12-22] MEDS ORDERED: SODIUM CHLORIDE 0.9% 500 ML 500 ML IV ONE (12:00)
[2020-12-22 12:01] LABS: Albumin 2.1 g/dL (3.5-5.0); Calcium 7.7 mg/dL (8.4-10.2); Potassium 5.1 mmol/L (3.5-5.1); Total Bilirubin 0.4 mg/dL (0.2-1.3); Total Protein 4.7 g/dL (6.3-8.2)
--- NOTE | 2020-12-22 12:01 | XR ---
EXAMINATION TYPE: XR chest 1V portable DATE OF EXAM: 12/22/2020 COMPARISON: Chest x-ray October 30, 2020 and older studies HISTORY: Shortness of breath it to be intubated. TECHNIQUE: Single frontal view of the chest is obtained. FINDINGS: New orogastric tube projects below diaphragm. New endotracheal tuber and inferior aortic kn ob level approximately 1 to 2 cm above tiffany, advise pulling back 3 to 4 cm to be more ideal positio n. Stable mild cardiomegaly with atherosclerotic and ectatic thoracic aorta. Background moderate to adva nced chronic parenchymal fibrotic changes bilaterally redemonstrated. Possible small to tiny left ple ural effusion or pleural thickening. Osseous structures are intact. No new acute airspace opacity kayla ntified. IMPRESSION: 1. New orogastric tube satisfactory in position. New Endotracheal tube low lying advise pulling back 3 to 4 cm to be more ideal position. 2. Mild cardiomegaly and low lung volumes with moderate to advanced chronic parenchymal fibrotic nixon ges bilaterally redemonstrated. No new acute infiltrate clearly seen.
[2020-12-22] MEDS ORDERED: VANCOMYCIN 1,250 MG in SODIUM CHLORIDE 0.9% 250 ML IVPB STA (12:05)
[2020-12-22 12:07] LABS: Anisocytosis Moderate; Basophils % (A) 0 %; Eosinophils % (A) 0 %; HCT 36.5 % (39.0-53.0); HGB 10.5 gm/dL (13.0-17.5); Hypochromasia Marked; Lymphocytes # (A) 2.6 k/uL (1.0-4.8); Lymphocytes % (A) 26 %; MCH 23.7 pg (25.0-35.0); MCHC 28.8 g/dL (31.0-37.0); Mean Platelet Volume 8.1; Microcytosis Moderate; Monocytes # (A) 0.4 k/uL (0-1.0); Monocytes % (A) 4 %; Neutrophils # (A) 6.9 k/uL (1.3-7.7); Neutrophils % (A) 69 %; Platelet Count 280 k/uL (150-450); RBC 4.44 m/uL (4.30-5.90); RDW 23.4 % (11.5-15.5); WBC 10.1 k/uL (3.8-10.6)
--- NOTE | 2020-12-22 12:08 | XR ---
EXAMINATION TYPE: XR abdomen 1V DATE OF EXAM: 12/22/2020 Comparison: 03/22/2020 Clinical History: 75-year-old male ET tube placement/NG placement Findings: NG tube courses into the fundus of the stomach. Prominent distention of the stomach. Scattered mildly distended small bowel loops measuring up to 3.1 cm. Relative possibly of colonic air. Impression: 1. NG tube curled in the fundus of the stomach. 2. Prominent distention of the stomach and mildly distended small bowel loops measuring up to 3.1 cm. Follow-up recommended.
[2020-12-22 12:11] LABS: MCV 82.1 fL (80.0-100.0)
[2020-12-22] MEDS ORDERED: NALOXONE 0.4 MG/ML 1 ML VIAL IV PRN (12:14)
[2020-12-22] MEDS: SODIUM CHLORIDE 0.9% 1,000 ML IV SCH ×2 (12:16→18:43)
[2020-12-22 12:17] LABS: Appearance,Urine Cloudy (Clear); Bacteria,Urine Rare /hpf; Bilirubin,Urine Negative (Negative); Blood,Urine Negative (Negative); Budding Yeast,Urine Rare /hpf; Color,Urine Yellow; Glucose,Urine (UA) Negative (Negative); Hyaline Casts,Urine 40 /lpf (0-2); Ketones,Urine Negative (Negative); Leukocyte Esterase,Urine Large (Negative); Mucus,Urine Occasional /hpf; Nitrite,Urine Negative (Negative); Protein,Urine Trace (Negative); RBC,Urine 25 /hpf (0-5); Specific Gravity,Urine 1.019 (1.001-1.035); Squamous Epithelial Cell,Urine 1 /hpf (0-4); Urobilinogen,Urine <2.0 mg/dL (<2.0); WBC,Urine 106 /hpf (0-5)
[2020-12-22 12:30] LABS: Poikilocytosis (M) Present; Toxic Granulation Present
[2020-12-22 12:31] LABS: RBC Fragments Present
[2020-12-22 12:32] LABS: Crenated RBC Present
[2020-12-22 13:18] LABS: ABG Base Excess -11.6 mmol/L; ABG HCO3 17 mmol/L (21-25); ABG PCO2 43 mmHg (35-45); ABG PO2 >400 mmHg (83-108); ABG TCO2 18 mmol/L (19-24); Allen Test Performed? Yes
[2020-12-22 13:20] LABS: ABG PH 7.19 (7.35-7.45)
[2020-12-22] MEDS ORDERED: propofoL 100 ML IV ONE (14:43)
[2020-12-22 15:10] LABS: Glucose,Whole Blood 147 mg/dL (75-99)
[2020-12-22] MEDS: NOREPINEPHRINE 4 MG in SODIUM CHLORIDE 0.9% 250 ML IV SCH (15:50)
[2020-12-22] MEDS ORDERED: CEFEPIME 2 GM in SODIUM CHLORIDE 0.9% 100 ML IVPB SCH (16:00)
[2020-12-22] MEDS ORDERED: HYDROCORTISONE SUCCINATE 100 MG/2 ML VIAL IV STA (16:08)
[2020-12-22] MEDS ORDERED: SODIUM BICARB 8.4% 50 ML SYR (1 MEQ/ML) IV STA (16:13)
[2020-12-22 16:31] LABS: ABG Base Excess 0.4 mmol/L; ABG HCO3 25 mmol/L (21-25); ABG Oxygen Saturation 99.6 % (94-97); ABG PCO2 41 mmHg (35-45); ABG PH 7.39 (7.35-7.45); ABG PO2 139 mmHg (83-108); ABG TCO2 27 mmol/L (19-24)
[2020-12-22 16:33] LABS: Allen Test Performed? no
--- NOTE | 2020-12-22 17:58 | P.CNPUL ---
History of Present Illness Consult date: 12/22/20 Requesting physician: Julio Cesar España Reason for consult: dyspnea Chief complaint: Severe respiratory distress History of present illness: 75-year-old white male patient is well-known to our service from his previous admissions for complications related to episodes of sepsis. Patient has e xtensive medical history including history of COPD, diabetes mellitus type 2, hyperlipidemia, previous history of DVT and pulmonary embolism, patient is on Xarelto, coronary artery disease with previous stenting, anemia of chronic disease, bacteremia most recently related to MSSA, left lower extremity [id number] amputation related to septic arthritis of the left knee. he was brought into the emergency department per EMS on 12/22/2020 for evaluation of severe respiratory distress. On a to the hospital patient required CPAP support and bagging with DVM. His venous blood gas showed pH of 7.2 and pCO2 of 44, acute kidney injury with BUN of 46 and creatinine of 5.48, severe lactic acidosis with lactic acid of 7.9, related to suspected sepsis. Patient has had low-grade fever since admission. His had low blood pressures in the emergency department with a blood pressure 61/39, he was given 2 L fluid bolus in the emergency department, his lactic acid is still elevated but improving, in view of his significant metabolic acidosis and respiratory distress he was intubated and placed on mechanical ventilator. He has been started on Maxipime and vancomycin. His chest x-ray shows mild cardiomegaly and low lung volumes with moderate to advanced chronic parenchymal fibrotic changes bilaterally. No new acute infiltrates. COVID 19 PCR was negative. Blood cultures have been sent, urinalysis is possibility of urinary tract infection, we'll send a urine culture, sputum culture will also be sent. Patient had a mild troponin elevation of 0.087, and proBNP was 2150. He was seen in the ICU, remains hypotensive, he continues on IV fluids however his vasopressor requirements are minimal with the levo fed infusing at 3.6 mics per minute, he is on Diprivan at 10 mics per kilo per minute, and 0.9 normal saline 130 ML per hour. Review of Systems All systems: negative Constitutional: Denies chills, Denies fever Eyes: denies blurred vision, denies pain Ears, nose, mouth and throat: Denies headache, Denies sore throat Cardiovascular: Denies chest pain, Denies shortness of breath Respiratory: Reports dyspnea, Denies cough Gastrointestinal: Denies abdominal pain, Denies diarrhea, Denies nausea, Denies vomiting Musculoskeletal: Denies myalgias Integumentary: Denies pruritus, Denies rash Neurological: Denies numbness, Denies weakness Psychiatric: Denies anxiety, Denies depression Endocrine: Denies fatigue, Denies weight change Past Medical History Past Medical History: Coronary Artery Disease (CAD), COPD, Deep Vein Thrombosis (DVT), Hyperlipidemia, Musculoskeletal Disorder, Pneumonia, Pulmonary Embolus (PE), Rheumatoid Arthritis (RA), Vascular Disorder Additional Past Medical History / Comment(s): History of pancreatitis, 2012 past medical record documents viral pericarditis but pt denies, gastritis, Fluid build up rt lung - previous chest tube - pt unsure what it is from, BOTTOM TEETH REMOVED 09-01-18, wounds in his right lower extremity, left vlgpo-[id number]-[id number] stump and left elbow. History of multiple compression fractures his thoracic and lumbar spine particularly at T12-L1 and L3 and L4. 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 right ankle sx, thoracentesis, chest tube rt lung, LT above the knee amputation Past Anesthesia/Blood Transfusion Reactions: No Reported Reaction Additional Past Anesthesia/Blood Transfusion Reaction / Comment(s): Pt states he has never recieved blood. Date of Last Stent Placement:: 12/10/16 Past Psychological History: Anxiety, Depression Smoking Status: Former smoker Past Alcohol Use History: None Reported Past Drug Use History: None Reported - Past Family History Sister(s) Family Medical History: Cancer Additional Family Medical History / Comment(s): pt's father had ra, mother had 16 children was healthy most of her life age 93 from dementia. Mother Family Medical History: Dementia Additional Family Medical History / Comment(s): Mother from dementia at the age of 93 yrs. Father Family Medical History: Rheumatoid Arthritis (RA) Medications and Allergies Home Medications Medication Instructions Recorded Confirmed Type Gabapentin [Neurontin] 300 mg PO TID #9 cap 02/21/20 12/22/20 Rx predniSONE 10 mg PO TID 07/10/20 12/22/20 History Atorvastatin [Lipitor] 40 mg PO HS #90 tab 07/24/20 12/22/20 Rx Metoprolol Tartrate [Lopressor] 50 mg PO DAILY #90 tab 07/24/20 12/22/20 Rx Pantoprazole [Protonix] 40 mg PO BID #180 tablet.dr 07/24/20 12/22/20 Rx Rivaroxaban [Xarelto] 20 mg PO AC-SUPPER 10/24/20 12/22/20 History oxyCODONE-APAP 10-325MG [Percocet 1 tab PO QID 10/24/20 12/22/20 History 10-325 mg] Nystatin 100,000 Unit/ml Susp 500,000 unit PO QID ml 11/02/20 12/22/20 Rx [Mycostatin Oral Susp] lisinopriL [Zestril] 10 mg PO DAILY #0 11/03/20 12/22/20 Rx Budesonide [Pulmicort] 0.5 mg INHALATION RT-BID 12/22/20 12/22/20 History Ipratropium-Albuterol Nebulize 3 ml INHALATION RT-QID 12/22/20 12/22/20 History [Duoneb 0.5 mg-3 mg/3 ml Soln] Meclizine [Antivert] 25 mg PO TID PRN 12/22/20 12/22/20 History Morphine Sulfate ER [Ms Contin] 15 mg PO BID 12/22/20 12/22/20 History Allergies Allergy/AdvReac Type Severity Reaction Status Date / Time No Known Allergies Allergy Verified 12/22/20 11:53 Physical Exam Vitals: Vital Signs Temp Pulse Resp BP Pulse Ox 12/22/20 14:30 95 18 86/57 100 12/22/20 14:18 100 12/22/20 14:00 101 H 18 83/56 100 12/22/20 13:32 104 H 18 80/55 100 12/22/20 13:08 105 H 18 94/60 99 12/22/20 12:57 108 H 18 119/59 100 12/22/20 12:40 107 H 18 92/56 100 12/22/20 12:29 110 H 18 82/50 100 12/22/20 12:20 112 H 18 77/48 100 12/22/20 12:12 114 H 18 67/46 100 12/22/20 12:04 116 H 18 68/43 100 12/22/20 11:57 117 H 18 61/39 100 12/22/20 11:51 112 H 18 107/85 99 12/22/20 11:48 118 H 18 73/30 98 12/22/20 11:28 115 H 24 123/101 12/22/20 11:23 125 H 24 95/69 94 L 12/22/20 11:00 30 H 12/22/20 10:59 99.3 F 67 24 139/83 90 L Intake and Output 12/22/20 12/22/20 12/22/20 06:59 14:59 22:59 Intake Total 10.83 Output Total 150 Balance -150 10.83 Intake: Intake, IV Titration 10.83 Amount Norepinephrine 4 mg In 10.83 Sodium Chloride 0.9% 250 ml @ 0.05 MCG/KG/MIN 13. 826 mls/hr IV .[id number] [facility] Rx#:[id number] Output: Urine 150 Uretheral (Mccain) 50 Other: Weight 72.575 kg GENERAL EXAM: Intubated, sedated, comfortable in no apparent distress. HEAD: Normocephalic/atraumatic. EYES: Normal reaction of pupils, left pupil is greater than right Conjunctiva pink, sclera white. NOSE: Clear with pink turbinates. THROAT: No erythema or exudates. NECK: No masses, no JVD, no thyroid enlargement, no adenopathy. CHEST: No chest wall deformity. Symmetrical expansion. LUNGS: Equal air entry with no crackles, wheeze, rhonchi or dullness. CVS: Regular rate and rhythm, normal S1 and S2, no gallops, no murmurs, no rubs ABDOMEN: Soft, nontender. No hepatosplenomegaly, normal bowel sounds, no guarding or rigidity. EXTREMITIES: No clubbing, no edema, no cyanosis, 2+ pulses and upper and lower extremities. MUSCULOSKELETAL: Muscle strength and tone normal. Left quvvh-aem-[id number] amputee SPINE: No scoliosis or deformity SKIN: No rashes. Small scab present on right foot CENTRAL NERVOUS SYSTEM: Sedated, intubated No focal deficits, tone is normal in all 4 extremities. Results - Laboratory Findings CBC and BMP: 12/22/20 11:16 12/22/20 11:16 ABG ABG pH 7.39 (7.35-7.45) 12/22/20 16:29 ABG pCO2 41 mmHg (35-45) 12/22/20 16:29 ABG pO2 139 mmHg (83-108) H 12/22/20 16:29 ABG O2 Saturation 99.6 % (94-97) H 12/22/20 16:29 PT/INR, D-dimer PT 11.8 sec (9.0-12.0) 12/22/20 11:16 INR 1.1 (<1.2) 12/22/20 11:16 Abnormal lab findings: Abnormal Labs 12/22/20 12/22/20 12/22/20 11:16 11:16 11:16 Hgb 10.5 L Hct 36.5 L MCH 23.7 L MCHC 28.8 L RDW 23.4 H ABG pH ABG pO2 ABG HCO3 ABG Total CO2 ABG O2 Saturation VBG pH VBG HCO3 Chloride 109 H Carbon Dioxide 15 L BUN 46 H Creatinine 5.48 H Glucose 133 H POC Glucose (mg/dL) Plasma Lactic Acid Harsh 7.9 H* Calcium 7.7 L Troponin I Total Protein 4.7 L Albumin 2.1 L Urine Protein Ur Leukocyte Esterase Urine RBC Urine WBC Urine WBC Clumps Urine Bacteria Hyaline Casts Urine Mucus Urine Yeast (Budding) 12/22/20 12/22/20 12/22/20 11:16 11:25 12:00 Hgb Hct MCH MCHC RDW ABG pH ABG pO2 ABG HCO3 ABG Total CO2 ABG O2 Saturation VBG pH 7.20 L* VBG HCO3 17 L Chloride Carbon Dioxide BUN Creatinine Glucose POC Glucose (mg/dL) Plasma Lactic Acid Harsh Calcium Troponin I 0.087 H* Total Protein Albumin Urine Protein Trace H Ur Leukocyte Esterase Large H Urine RBC 25 H Urine WBC 106 H Urine WBC Clumps Moderate H Urine Bacteria Rare H Hyaline Casts 40 H Urine Mucus Occasional H Urine Yeast (Budding) Rare H 12/22/20 12/22/20 12/22/20 13:12 15:09 15:39 Hgb Hct MCH MCHC RDW ABG pH 7.19 L* ABG pO2 >400 H ABG HCO3 17 L ABG Total CO2 18 L ABG O2 Saturation 100.0 H VBG pH VBG HCO3 Chloride Carbon Dioxide BUN Creatinine Glucose POC Glucose (mg/dL) 147 H Plasma Lactic Acid Harsh 4.0 H* Calcium Troponin I Total Protein Albumin Urine Protein Ur Leukocyte Esterase Urine RBC Urine WBC Urine WBC Clumps Urine Bacteria Hyaline Casts Urine Mucus Urine Yeast (Budding) 12/22/20 16:29 Hgb Hct MCH MCHC RDW ABG pH ABG pO2 139 H ABG HCO3 ABG Total CO2 27 H ABG O2 Saturation 99.6 H VBG pH VBG HCO3 Chloride Carbon Dioxide BUN Creatinine Glucose POC Glucose (mg/dL) Plasma Lactic Acid Harsh Calcium Troponin I Total Protein Albumin Urine Protein Ur Leukocyte Esterase Urine RBC Urine WBC Urine WBC Clumps Urine Bacteria Hyaline Casts Urine Mucus Urine Yeast (Budding) - Diagnostic Findings Chest x-ray: report reviewed, image reviewed Additional studies: EKG reviewed, abdominal x-ray results reviewed Assessment and Plan Plan: Assessment: #1. Acute hypoxic respiratory failure related to septic shock, with the possibility of urinary tract infection, chest x-ray showed low lung volumes with moderate to advanced chronic fibrotic changes, no new acute infiltrates bilaterally. COVID 19 PCR was negative #2. Acute septic shock, the source is under investigation #3. Acute urinary tract infection #4. Recent history of MSSA bacteremia in October 2020 #5. Previous history of recurrent sepsis and previous bacteremia #6. History of left knee septic arthritis status post left [id number]-tbi-[id number] amputation #7. DM II #8. History of COPD #9. History of PE and DVT, on Xarelto #10. History of coronary artery disease with previous stent placement #11. Former nicotine dependence #12. Anxiety/depression #13. Chronic back pain with history of multiple compression fractures in his thoracic and lumbar spine at T12-L1, L3-L4 #14. Stage II on sacrum, present on admission #15. Acute kidney injury #16. Acute lactic acidosis related to sepsis Plan: We'll continue current antibiotics, currently on cefepime and vancomycin, send a urine culture, send sputum culture, awaiting results of the blood cultures, patient has been fluid resuscitated, we'll continue IV fluids at current rate, wean vasopressors. We'll continue Xarelto, GI prophylaxis, hydrocortisone 100 mg IV every 8 hours. Repeat blood gas has been reviewed and ventilator adjustments have been made. Continue is and following in the ICU, consult reg istered dietitian and initiate enteral feedings. Prognosis is guarded I performed a history & physical examination of the patient and discussed their management with my nurse practitioner, Yoselin Wiggins. I reviewed the nurse practitioner's note and agree with the documented findings and plan of care. Lung sounds are positive for diminished breath sounds. The findings and the impression was discussed with the patient. I attest to the documentation by the nurse practitioner. Time with Patient: Greater than 30
[2020-12-22 18:06] LABS: Glucose,Whole Blood 178 mg/dL (75-99)
[2020-12-22] MEDS: RIVAROXABAN 15 MG TAB PO SCH (18:43)
[2020-12-22] MEDS: INSULIN ASPART (NovoLOG) 100 UNIT/ML VIAL SQ SCH (18:57)
--- NOTE | 2020-12-22 19:36 | OP ---
OPERATIVE REPORT OPERATIVE REPORT: Placement of a right femoral triple-lumen catheter. PREOPERATIVE DIAGNOSIS: Acute hypoxic respiratory failure and sepsis. POSTOPERATIVE DIAGNOSIS: Acute hypoxic respiratory failure and sepsis. ANESTHESIA USED: 2 mL of 1% lidocaine. PROCEDURE DESCRIPTION: The patient was placed in supine position. The right groin was prepared in a sterile fashion and drapes were applied. Then the area of the groin was anesthetized locally with lidocaine. The right femoral vein was easily cannulated and a guidewire was placed. A triple-lumen catheter was inserted over the guidewire, and the guidewire was removed. Good blood flow was noted in the 3 different ports of the triple-lumen catheter. Line was secured using 3.0 silk sutures. A sterile dressing was applied. Procedure was well tolerated. No complications. MMODL / IJN: [id number] /
--- NOTE | 2020-12-22 19:44 | OP ---
OPERATIVE REPORT OPERATIVE REPORT: Placement of right femoral arterial line. PREOPERATIVE DIAGNOSIS: Acute hypoxic respiratory failure and sepsis. POSTOPERATIVE DIAGNOSIS: Acute hypoxic respiratory failure and sepsis. ANESTHESIA USED: None deployed. PROCEDURE DESCRIPTION: The right groin was prepared in a sterile fashion. Drapes were applied. The right femoral artery was palpated, cannulated easily, and a guidewire was placed. A femoral catheter was inserted over the guidewire, and the guidewire was removed. Good blood flow, good waveform noted; no evidence of any complications. Line was secured using 3.0 silk sutures. Again, no complications. Procedure was well tolerated. MMODL / IJN: [id number] /
[2020-12-22] MEDS: CHLORHEXIDINE GLUCONATE 15 ML CUP MUCOUS MEM SCH (21:23)
--- NOTE | 2020-12-22 22:29 | P.HPIM ---
History of Present Illness H&P Date: 12/22/20 Chief Complaint: Respiratory distress. 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 Patient was placed on CPAP by EMS and was unable to tolerate and was bagged with BVM. Patient was intubated upon arrival to the ER. Patient was in severe respiratory distress and was unable to provide any history. Chest x-ray showed new orogastric tube with satisfactory position. Mild cardiomegaly and low lung volumes with moderate to advanced chronic primary bilaterally redemonstrated. Abdominal x-ray showed NG tube curled in the fundus of the stomach. Prominent distention of the stomach and mildly distended small bowel loops measuring up to 3.1 cm. EKG showed sinus tachycardia Laboratory data showed WBC 10.1 hemoglobin 10.5 and platelets 280 ABG showed pH of 7.17, PCO2 43 PO2 greater than 400 Sodium 139 potassium 5.1 chloride 109 bicarb is 15 BUN 46 and creatinine 5.48 Lactic acid level 7.9 Troponin 0 087, proBNP 2150 Urinalysis showed large leukocyte esterase with elevated WBCs and RBCs count Coronavirus PCR not detected On admission blood pressure 73/30 and heart rate 118. Review of Systems Complete review of systems could not be obtained from the patient. Past Medical History Past Medical History: Coronary Artery Disease (CAD), COPD, Deep Vein Thrombosis (DVT), Hyperlipidemia, Musculoskeletal Disorder, Pneumonia, Pulmonary Embolus (PE), Rheumatoid Arthritis (RA), Vascular Disorder Additional Past Medical History / Comment(s): History of pancreatitis, 2012 past medical record documents viral pericarditis but pt denies, gastritis, Fluid build up rt lung - previous chest tube - pt unsure what it is from, BOTTOM TEETH REMOVED 09-01-18, wounds in his right lower extremity, left [id number] stump and left elbow. History of multiple compression fractures his thoracic and lumbar spine particularly at T12-L1 and L3 and L4. 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 Date of Last Stent Placement:: 12/10/16 Past Psychological History: Anxiety, Depression Smoking Status: Former smoker Past Alcohol Use History: None Reported Past Drug Use History: None Reported - Past Family History Sister(s) Family Medical History: Cancer Additional Family Medical History / Comment(s): pt's father had ra, mother had 16 children was healthy most of her life age 93 from dementia. Mother Family Medical History: Dementia Additional Family Medical History / Comment(s): Mother from dementia at the age of 93 yrs. Father Family Medical History: Rheumatoid Arthritis (RA) Medications and Allergies Home Medications Medication Instructions Recorded Confirmed Type Gabapentin [Neurontin] 300 mg PO TID #9 cap 02/21/20 12/22/20 Rx predniSONE 10 mg PO TID 07/10/20 12/22/20 History Atorvastatin [Lipitor] 40 mg PO HS #90 tab 07/24/20 12/22/20 Rx Metoprolol Tartrate [Lopressor] 50 mg PO DAILY #90 tab 07/24/20 12/22/20 Rx Pantoprazole [Protonix] 40 mg PO BID #180 tablet. 07/24/20 12/22/20 Rx Rivaroxaban [Xarelto] 20 mg PO AC-SUPPER 10/24/20 12/22/20 History oxyCODONE-APAP 10-325MG [Percocet 1 tab PO QID 10/24/20 12/22/20 History 10-325 mg] Nystatin 100,000 Unit/ml Susp 500,000 unit PO QID ml 11/02/20 12/22/20 Rx [Mycostatin Oral Susp] lisinopriL [Zestril] 10 mg PO DAILY #0 11/03/20 12/22/20 Rx Budesonide [Pulmicort] 0.5 mg INHALATION RT-BID 12/22/20 12/22/20 History Ipratropium-Albuterol Nebulize 3 ml INHALATION RT-QID 12/22/20 12/22/20 History [Duoneb 0.5 mg-3 mg/3 ml Soln] Meclizine [Antivert] 25 mg PO TID PRN 12/22/20 12/22/20 History Morphine Sulfate ER [Ms Contin] 15 mg PO BID 12/22/20 12/22/20 History Allergies Allergy/AdvReac Type Severity Reaction Status Date / Time No Known Allergies Allergy Verified 12/22/20 11:53 Physical Exam Vitals: Vital Signs Temp Pulse Resp BP Pulse Ox 12/22/20 18:30 80 20 98 12/22/20 18:15 82 20 98 12/22/20 18:00 80 19 97 12/22/20 17:50 85 18 97 12/22/20 17:40 84 19 97 12/22/20 17:30 80 36 H 98 12/22/20 17:20 80 19 97 12/22/20 17:10 81 18 98 12/22/20 17:00 81 18 118/76 98 12/22/20 16:50 80 29 H 118/76 97 12/22/20 16:40 82 18 118/76 97 12/22/20 16:30 82 20 88/61 100 12/22/20 16:20 88 20 92/63 98 12/22/20 16:10 82 18 84/57 98 12/22/20 16:00 88 18 72/49 98 12/22/20 15:50 92 20 70/48 98 12/22/20 15:40 94 20 67/49 97 12/22/20 15:30 93 20 75/55 97 12/22/20 15:20 96.4 F L 134 H 28 H 92/69 97 12/22/20 14:30 95 18 86/57 100 12/22/20 14:18 100 21 12/22/20 14:00 101 H 18 83/56 100 12/22/20 13:32 104 H 18 80/55 100 12/22/20 13:08 105 H 18 94/60 99 12/22/20 12:57 108 H 18 119/59 100 12/22/20 12:40 107 H 18 92/56 100 12/22/20 12:29 110 H 18 82/50 100 12/22/20 12:20 112 H 18 77/48 100 12/22/20 12:12 114 H 18 67/46 100 12/22/20 12:04 116 H 18 68/43 100 12/22/20 11:57 117 H 18 61/39 100 12/22/20 11:51 112 H 18 107/85 99 12/22/20 11:48 118 H 18 73/30 98 12/22/20 11:28 115 H 24 123/101 12/22/20 11:23 125 H 24 95/69 94 L 12/22/20 11:00 30 H 12/22/20 10:59 99.3 F 67 24 139/83 90 L Intake and Output 12/22/20 12/22/20 12/22/20 06:59 14:59 22:59 Intake Total 25.554 Output Total 150 50 Balance -150 -24.446 Intake: Intake, IV Titration 25.554 Amount Norepinephrine 4 mg In 25.554 Sodium Chloride 0.9% 250 ml @ 0.05 MCG/KG/MIN 13. 826 mls/hr IV .[id number] [facility] Rx#:[id number] Output: Urine 150 50 Uretheral (Mccain) 50 50 Other: Voiding Method Indwelling Catheter Weight 72.575 kg ABP, PAP, CO, CI - Last 8 Hours Arterial Blood Pressure 104/54 Arterial Blood Pressure 105/55 Arterial Blood Pressure 103/54 Arterial Blood Pressure 105/55 Arterial Blood Pressure 112/58 Arterial Blood Pressure 105/55 Arterial Blood Pressure 105/54 Arterial Blood Pressure 108/56 Arterial Blood Pressure 114/59 Arterial Blood Pressure 110/50 Arterial Blood Pressure 110/50 Arterial Blood Pressure 130/63 PHYSICAL EXAMINATION: Patient is Is currently on mechanically ventilated. HEENT: Normocephalic. Neck is supple. Pupils reactive. Nostrils clear. Oral cavity is moist. Ears reveal no drainage. Neck reveals no JVD, carotid bruits, or thyromegaly. CHEST EXAMINATION: Trachea is central. Symmetrical expansion. Bibasilar diminished sounds. No wheezing. Scattered rhonchi. CARDIAC: Normal S1, S2 with no gallops. No murmurs ABDOMEN: Soft. Bowel sounds normal. No organomegaly. No abdominal bruits. Extremities: reveal no edema. No clubbing or cyanosis Neurologically on ventilator. No gross focal deficits noted Skin: No rash or skin lesions. Psychiatric: could not be assesed at this time. Musculoskeletal: No joint swelling or deformity. left AKA. Results CBC & Chem 7: 12/22/20 11:16 12/22/20 11:16 Labs: Abnormal Lab Results - Last 24 Hours (Table) 12/22/20 12/22/20 12/22/20 Range/Units 11:16 11:16 11:16 Hgb 10.5 L (13.0-17.5) gm/dL Hct 36.5 L (39.0-53.0) % MCH 23.7 L (25.0-35.0) pg MCHC 28.8 L (31.0-37.0) g/dL RDW 23.4 H (11.5-15.5) % ABG pH (7.35-7.45) ABG pO2 (83-108) mmHg ABG HCO3 (21-25) mmol/L ABG Total CO2 (19-24) mmol/L ABG O2 Saturation (94-97) % VBG pH (7.31-7.41) VBG HCO3 (24-28) mmol/L Chloride 109 H (98-107) mmol/L Carbon Dioxide 15 L (22-30) mmol/L BUN 46 H (9-20) mg/dL Creatinine 5.48 H (0.66-1.25) mg/dL Glucose 133 H (74-99) mg/dL POC Glucose (mg/dL) (75-99) mg/dL Plasma Lactic Acid Harsh 7.9 H* (0.7-2.0) mmol/L Calcium 7.7 L (8.4-10.2) mg/dL Troponin I (0.000-0.034) ng/mL Total Protein 4.7 L (6.3-8.2) g/dL Albumin 2.1 L (3.5-5.0) g/dL Urine Protein (Negative) Ur Leukocyte Esterase (Negative) Urine RBC (0-5) /hpf Urine WBC (0-5) /hpf Urine WBC Clumps (None) /hpf Urine Bacteria (None) /hpf Hyaline Casts (0-2) /lpf Urine Mucus (None) /hpf Urine Yeast (Budding) (None) /hpf 03/12/21 03/12/21 03/12/21 Range/Units 11:16 11:25 12:00 Hgb (13.0-17.5) gm/dL Hct (39.0-53.0) % MCH (25.0-35.0) pg MCHC (31.0-37.0) g/dL RDW (11.5-15.5) % ABG pH (7.35-7.45) ABG pO2 (83-108) mmHg ABG HCO3 (21-25) mmol/L ABG Total CO2 (19-24) mmol/L ABG O2 Saturation (94-97) % VBG pH 7.20 L* (7.31-7.41) VBG HCO3 17 L (24-28) mmol/L Chloride (98-107) mmol/L Carbon Dioxide (22-30) mmol/L BUN (9-20) mg/dL Creatinine (0.66-1.25) mg/dL Glucose (74-99) mg/dL POC Glucose (mg/dL) (75-99) mg/dL Plasma Lactic Acid Harsh (0.7-2.0) mmol/L Calcium (8.4-10.2) mg/dL Troponin I 0.087 H* (0.000-0.034) ng/mL Total Protein (6.3-8.2) g/dL Albumin (3.5-5.0) g/dL Urine Protein Trace H (Negative) Ur Leukocyte Esterase Large H (Negative) Urine RBC 25 H (0-5) /hpf Urine WBC 106 H (0-5) /hpf Urine WBC Clumps Moderate H (None) /hpf Urine Bacteria Rare H (None) /hpf Hyaline Casts 40 H (0-2) /lpf Urine Mucus Occasional H (None) /hpf Urine Yeast (Budding) Rare H (None) /hpf 12/22/20 12/22/20 12/22/20 Range/Units 13:12 15:09 15:39 Hgb (13.0-17.5) gm/dL Hct (39.0-53.0) % MCH (25.0-35.0) pg MCHC (31.0-37.0) g/dL RDW (11.5-15.5) % ABG pH 7.19 L* (7.35-7.45) ABG pO2 >400 H (83-108) mmHg ABG HCO3 17 L (21-25) mmol/L ABG Total CO2 18 L (19-24) mmol/L ABG O2 Saturation 100.0 H (94-97) % VBG pH (7.31-7.41) VBG HCO3 (24-28) mmol/L Chloride (98-107) mmol/L Carbon Dioxide (22-30) mmol/L BUN (9-20) mg/dL Creatinine (0.66-1.25) mg/dL Glucose (74-99) mg/dL POC Glucose (mg/dL) 147 H (75-99) mg/dL Plasma Lactic Acid Harsh 4.0 H* (0.7-2.0) mmol/L Calcium (8.4-10.2) mg/dL Troponin I (0.000-0.034) ng/mL Total Protein (6.3-8.2) g/dL Albumin (3.5-5.0) g/dL Urine Protein (Negative) Ur Leukocyte Esterase (Negative) Urine RBC (0-5) /hpf Urine WBC (0-5) /hpf Urine WBC Clumps (None) /hpf Urine Bacteria (None) /hpf Hyaline Casts (0-2) /lpf Urine Mucus (None) /hpf Urine Yeast (Budding) (None) /hpf 12/22/20 12/22/20 Range/Units 16:29 18:04 Hgb (13.0-17.5) gm/dL Hct (39.0-53.0) % MCH (25.0-35.0) pg MCHC (31.0-37.0) g/dL RDW (11.5-15.5) % ABG pH (7.35-7.45) ABG pO2 139 H (83-108) mmHg ABG HCO3 (21-25) mmol/L ABG Total CO2 27 H (19-24) mmol/L ABG O2 Saturation 99.6 H (94-97) % VBG pH (7.31-7.41) VBG HCO3 (24-28) mmol/L Chloride (98-107) mmol/L Carbon Dioxide (22-30) mmol/L BUN (9-20) mg/dL Creatinine (0.66-1.25) mg/dL Glucose (74-99) mg/dL POC Glucose (mg/dL) 178 H (75-99) mg/dL Plasma Lactic Acid Harsh (0.7-2.0) mmol/L Calcium (8.4-10.2) mg/dL Troponin I (0.000-0.034) ng/mL Total Protein (6.3-8.2) g/dL Albumin (3.5-5.0) g/dL Urine Protein (Negative) Ur Leukocyte Esterase (Negative) Urine RBC (0-5) /hpf Urine WBC (0-5) /hpf Urine WBC Clumps (None) /hpf Urine Bacteria (None) /hpf Hyaline Casts (0-2) /lpf Urine Mucus (None) /hpf Urine Yeast (Budding) (None) /hpf Thrombosis Risk Factor Assmnt - DVT/VTE Prophylaxis DVT/VTE Prophylaxis: Pharmacologic Prophylaxis ordered - Choose All That Apply Any of the Below Risk Factors Present?: Yes Each Factor Represents 1 point: Medical pt on bed rest, Obesity (BMI >25), Sepsis (< 1month) Each Risk Factor Represents 2 Points: Age 61-74 years, Patient confined to bed Each Risk Factor Represents 3 Points: History of DVT/PE Other congenital or acquired thrombophilia - If yes, enter type in comment: No Thrombosis Risk Factor Assessment Total Risk Factor Score: 10 Thrombosis Risk Factor Assessment Level: High Risk Assessment and Plan Assessment: Acute hypoxemic respiratory failure possibly due to septic shock Likely urinary source. Recent history of bacteremia. Chest x-ray showed chronic changes. 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 Continue with Levophed drip. Continue with broad-spectrum antibiotics in the form of vancomycin and cefepime. GI prophylaxis. Follow-up culture reports and repeat lactic acid level. Prognosis poor at this time. Time with Patient: Greater than 30
[2020-12-22 23:55] LABS: Glucose,Whole Blood 182 mg/dL (75-99)
[2020-12-23] MEDS ORDERED: HYDROCORTISONE SUCCINATE 100 MG/2 ML VIAL IV SCH
[2020-12-23] MEDS: SODIUM CHLORIDE 0.9% 1,000 ML IV SCH (00:40)
[2020-12-23] MEDS: INSULIN ASPART (NovoLOG) 100 UNIT/ML VIAL SQ SCH ×4 (00:40→18:09)
[2020-12-23 04:45] LABS: ABG HCO3 19 mmol/L (21-25); ABG Oxygen Saturation 99.7 % (94-97); ABG PCO2 35 mmHg (35-45); ABG PH 7.34 (7.35-7.45); ABG PO2 132 mmHg (83-108); ABG TCO2 20 mmol/L (19-24)
[2020-12-23 05:34] LABS: Allen Test Performed? no
[2020-12-23 05:57] LABS: Calcium 6.7 mg/dL (8.4-10.2); Potassium 4.5 mmol/L (3.5-5.1)
[2020-12-23 06:01] LABS: Anisocytosis Moderate; HCT 32.1 % (39.0-53.0); HGB 9.6 gm/dL (13.0-17.5); Hypochromasia Marked; Mean Platelet Volume 8.6; Microcytosis Moderate; Platelet Count 215 k/uL (150-450); RBC 4.02 m/uL (4.30-5.90); RDW 23.5 % (11.5-15.5); WBC 7.9 k/uL (3.8-10.6)
[2020-12-23 06:02] LABS: Glucose,Whole Blood 134 mg/dL (75-99)
[2020-12-23 06:54] LABS: Band Neutrophils % 22 %; Lymphocytes # (M) 0.87 k/uL (1.0-4.8); Metamyelocytes # (M) 0.16 k/uL (0); Metamyelocytes % 2 %; Monocytes # (M) 0.16 k/uL (0-1.0); Neutrophils % (M) 65 %; Nucleated Red Blood Cells 0 /100 WBC (0-0); Total Cells Counted 200
[2020-12-23 06:55] LABS: Crenated RBC Present; Poikilocytosis (M) Present; Toxic Granulation Present
[2020-12-23 06:56] LABS: RBC Fragments Present
--- NOTE | 2020-12-23 07:23 | XR ---
EXAMINATION TYPE: XR chest 1V DATE OF EXAM: 12/23/2020 COMPARISON: 12/22/2020 HISTORY: Respiratory distress TECHNIQUE: Single frontal view of the chest is obtained. FINDINGS: ET tube and NG tube are unchanged in position. Heart size is normal and the pulmonary vasculature does not appear congested. There is a partially consolidative opacity in the right lung base which was seen previously and is un changed. Left hemidiaphragm is obscured likely secondary to small effusion. There is no pneumothorax IMPRESSION: 1. No change in the small right lower lung partially consolidative opacity. 2. Probable small left pleural effusion.
[2020-12-23] MEDS ORDERED: VANCOMYCIN 1,250 MG in SODIUM CHLORIDE 0.9% 250 ML IVPB ONE (09:00)
[2020-12-23] MEDS ORDERED: SODIUM CHLORIDE 0.9% 1,000 ML IV ONE (09:13)
[2020-12-23] MEDS: CHLORHEXIDINE GLUCONATE 15 ML CUP MUCOUS MEM SCH ×2 (09:33→20:40)
[2020-12-23] MEDS: PANTOPRAZOLE 40 MG/10 ML VIAL IV SCH (09:34)
[2020-12-23] MEDS: HYDROCORTISONE SUCCINATE 100 MG/2 ML VIAL IV SCH ×2 (09:47→20:40)
[2020-12-23 11:37] LABS: Glucose,Whole Blood 95 mg/dL (75-99)
[2020-12-23] MEDS ORDERED: CEFEPIME 1 GM in SODIUM CHLORIDE 0.9% 50 ML IVPB SCH (12:00)
--- NOTE | 2020-12-23 12:26 | P.PN ---
Subjective Progress Note Date: 12/23/20 Principal diagnosis: Acute hypoxic episode of failure and septic shock. 75-year-old white male patient is well-known to our service from his previous admissions for complications related to episodes of sepsis. Patient has extensive medical history including history of COPD, diabetes mellitus type 2, hyperlipidemia, previous history of DVT and pulmonary embolism, patient is on Xarelto, coronary artery disease with previous stenting, anemia of chronic disease, bacteremia most recently related to MSSA, left lower extremity [id number]-cndi amputation related to septic arthritis of the left knee. he was brought into the emergency department per EMS on 12/22/2020 for evaluation of severe respiratory distress. On a to the hospital patient required CPAP support and bagging with DVM. His venous blood gas showed pH of 7.2 and pCO2 of 44, acute kidney injury with BUN of 46 and creatinine of 5.48, severe lactic acidosis with lactic acid of 7.9, related to suspected sepsis. Patient has had low-grade fever since admission. His had low blood pressures in the emergency department with a blood pressure 61/39, he was given 2 L fluid bolus in the emergency department, his lactic acid is still elevated but improving, in view of his significant metabolic acidosis and respiratory distress he was intubated and placed on mechanical ventilator. He has been started on Maxipime and vancomycin. His chest x-ray shows mild cardiomegaly and low lung volumes with moderate to advanced chronic parenchymal fibrotic changes bilaterally. No new acute infiltrates. COVID 19 PCR was negative. Blood cultures have been sent, urinalysis is possibility of urinary tract infection, we'll send a urine culture, sputum culture will also be sent. Patient had a mild troponin elevation of 0.087, and proBNP was 2150. He was seen in the ICU, remains hypotensive, he continues on IV fluids however his vasopressor requirements are minimal with the levo fed infusing at 3.6 mics per minute, he is on Diprivan at 10 mics per kilo per minute, and 0.9 normal saline 130 ML per hour. Patient was reevaluated today on 12/23/2020, patient was admitted yesterday with acute hypoxic Failure and Septic Shock, He Was Intubated Initially in the Emergency Room. Arrived to the ICU on Norepinephrine and Had to Place a Central Line and Arterial Line in the Patient upon Arrival to the ICU. Patient Is on Assist Control Rate of 18 Tidal Volume Is 400 FiO2 Is 35% PEEP Is 5. ABG Today Showed a PO2 of 132 PCO2 of 35 pH of 7.34. Patient Is on Propofol at 10 Mcg/Kg/M, He Is Now on Minimal Dose of Norepinephrine at 0.01 Mcg/Kg/M, Received Significant Amount of Fluid Boluses and Left Fluids Overnight. Remains on Vancomycin and Cefepime Empirically. He Also Received Solu-Cortef Yesterday Because of His Profound Hypotension, Today I Cut down His Cortef to 50 Mg IV Push Every 12 Hours. His Sputum Is Showing Gram-Negative Bacilli. Final Culture Is Pending. History of Functioning Is Improving BUN Is Improving Creatinine Is down to 2.30 from 5.48. Patient Continues to Have Significant Areas of Cellulitis Involving the Right Lower Extremity. And He Has a Left Above-Knee Amputation. Chest X-Ray Continues to Show by Basilar Opacities and Small Tiny Left Pleural Effusion. Objective - Vital Signs Vital signs: Vital Signs Temp 97.3 F L 12/22/20 20:30 Pulse 77 12/22/20 22:00 Resp 18 12/22/20 22:00 BP 118/76 12/22/20 17:00 Pulse Ox 99 12/22/20 22:00 Intake & Output 12/22/20 12/23/20 12/23/20 18:59 06:59 18:59 Intake Total 2561.265 9597.724 177.082 Output Total 500 340 15 Balance 1828.682 8549.724 162.082 Weight 72.575 kg 66 kg 66 kg Intake: IV 15 1502 136 Sodium Chloride 0.9% 1, 1430 130 000 ml @ 130 mls/hr IV . Q7H42M [facility] Rx#:[id number] pressure bag 15 72 6 Intake, IV Titration 1675.554 189.724 41.082 Amount Norepinephrine 4 mg In 25.554 59.724 0 Sodium Chloride 0.9% 250 ml @ 0.05 MCG/KG/MIN 13. 826 mls/hr IV .[id number] [facility] Rx#:[id number] Sodium Chloride 0.9% 1, 650 130 000 ml @ 130 mls/hr IV . Q7H42M [facility] Rx#:[id number] Sodium Chloride 0.9% 1, 1000 000 ml @ 999 mls/hr IV . Q1H1M [facility] Rx#:[id number] propofoL 1,000 mg In 41.082 Empty Bag 1 bag @ Titrate IV .Q0M [facility] Rx#: [id number] Output: Urine 500 340 15 Uretheral (Mccain) 100 Other: Voiding Method Indwelling Catheter Indwelling Catheter ABP, PAP, CO, CI - Last Documented Arterial Blood Pressure 113/67 - Exam GENERAL EXAM: Revealed a 75-year-old white male intubated sedated on mechanical ventilation HEAD: Normocephalic/atraumatic. EENT: PERRLA, EOMI, nonicteric, short obese neck, no neck masses, no JVD, no stridor, endotracheal tube and orogastric tube are intact. CHEST: No chest wall deformity. Symmetrical expansion. LUNGS: Equal air entry minimal crackles at the bases. CVS: Regular rate and rhythm, normal S1 and S2, no gallops, no murmurs, no rubs ABDOMEN: Soft, nontender. No hepatosplenomegaly, normal bowel sounds, no guarding or rigidity. EXTREMITIES: Chronic abrasions and areas of cellulitis of the right lower extremity involving the dorsal aspect of the foot and dorsal aspect of the right tibia. Left above-knee amputation is noted. Lines noted in the right groin. MUSCULOSKELETAL: Muscle strength and tone normal. Left vxcyc-wgs-moko amputee SKIN: As noted above. But since Abrasions Noted on the Right Foot, Right Lower Extremity, and There Is a Left Above-Knee Amputation CENTRAL NERVOUS SYSTEM: Response to deep painful stimuli, patient is on propofol. Could not be fully assessed. - Labs CBC & Chem 7: 12/23/20 05:00 12/23/20 05:00 Labs: Abnormal Lab Results - Last 24 Hours (Table) 12/22/20 12/22/20 12/22/20 Range/Units 11:16 11:16 12:00 RBC (4.30-5.90) m/uL Hgb (13.0-17.5) gm/dL Hct (39.0-53.0) % MCH (25.0-35.0) pg MCHC (31.0-37.0) g/dL RDW (11.5-15.5) % Lymphocytes # (Manual) (1.0-4.8) k/uL Metamyelocytes # (Man) (0) k/uL ABG pH (7.35-7.45) ABG pO2 (83-108) mmHg ABG HCO3 (21-25) mmol/L ABG Total CO2 (19-24) mmol/L ABG O2 Saturation (94-97) % Chloride (98-107) mmol/L Carbon Dioxide (22-30) mmol/L BUN (9-20) mg/dL Creatinine (0.66-1.25) mg/dL Glucose (74-99) mg/dL POC Glucose (mg/dL) (75-99) mg/dL Plasma Lactic Acid Harsh 7.9 H* (0.7-2.0) mmol/L Calcium (8.4-10.2) mg/dL Troponin I 0.087 H* (0.000-0.034) ng/mL Urine Protein Trace H (Negative) Ur Leukocyte Esterase Large H (Negative) Urine RBC 25 H (0-5) /hpf Urine WBC 106 H (0-5) /hpf Urine WBC Clumps Moderate H (None) /hpf Urine Bacteria Rare H (None) /hpf Hyaline Casts 40 H (0-2) /lpf Urine Mucus Occasional H (None) /hpf Urine Yeast (Budding) Rare H (None) /hpf 12/22/20 12/22/20 12/22/20 Range/Units 13:12 15:09 15:39 RBC (4.30-5.90) m/uL Hgb (13.0-17.5) gm/dL Hct (39.0-53.0) % MCH (25.0-35.0) pg MCHC (31.0-37.0) g/dL RDW (11.5-15.5) % Lymphocytes # (Manual) (1.0-4.8) k/uL Metamyelocytes # (Man) (0) k/uL ABG pH 7.19 L* (7.35-7.45) ABG pO2 >400 H (83-108) mmHg ABG HCO3 17 L (21-25) mmol/L ABG Total CO2 18 L (19-24) mmol/L ABG O2 Saturation 100.0 H (94-97) % Chloride (98-107) mmol/L Carbon Dioxide (22-30) mmol/L BUN (9-20) mg/dL Creatinine (0.66-1.25) mg/dL Glucose (74-99) mg/dL POC Glucose (mg/dL) 147 H (75-99) mg/dL Plasma Lactic Acid Harsh 4.0 H* (0.7-2.0) mmol/L Calcium (8.4-10.2) mg/dL Troponin I (0.000-0.034) ng/mL Urine Protein (Negative) Ur Leukocyte Esterase (Negative) Urine RBC (0-5) /hpf Urine WBC (0-5) /hpf Urine WBC Clumps (None) /hpf Urine Bacteria (None) /hpf Hyaline Casts (0-2) /lpf Urine Mucus (None) /hpf Urine Yeast (Budding) (None) /hpf 12/22/20 12/22/20 12/22/20 Range/Units 16:29 18:04 23:53 RBC (4.30-5.90) m/uL Hgb (13.0-17.5) gm/dL Hct (39.0-53.0) % MCH (25.0-35.0) pg MCHC (31.0-37.0) g/dL RDW (11.5-15.5) % Lymphocytes # (Manual) (1.0-4.8) k/uL Metamyelocytes # (Man) (0) k/uL ABG pH (7.35-7.45) ABG pO2 139 H (83-108) mmHg ABG HCO3 (21-25) mmol/L ABG Total CO2 27 H (19-24) mmol/L ABG O2 Saturation 99.6 H (94-97) % Chloride (98-107) mmol/L Carbon Dioxide (22-30) mmol/L BUN (9-20) mg/dL Creatinine (0.66-1.25) mg/dL Glucose (74-99) mg/dL POC Glucose (mg/dL) 178 H 182 H (75-99) mg/dL Plasma Lactic Acid Harsh (0.7-2.0) mmol/L Calcium (8.4-10.2) mg/dL Troponin I (0.000-0.034) ng/mL Urine Protein (Negative) Ur Leukocyte Esterase (Negative) Urine RBC (0-5) /hpf Urine WBC (0-5) /hpf Urine WBC Clumps (None) /hpf Urine Bacteria (None) /hpf Hyaline Casts (0-2) /lpf Urine Mucus (None) /hpf Urine Yeast (Budding) (None) /hpf 12/23/20 12/23/20 12/23/20 Range/Units 05:00 05:00 05:09 RBC 4.02 L (4.30-5.90) m/uL Hgb 9.6 L (13.0-17.5) gm/dL Hct 32.1 L (39.0-53.0) % MCH 24.0 L (25.0-35.0) pg MCHC 30.0 L (31.0-37.0) g/dL RDW 23.5 H (11.5-15.5) % Lymphocytes # (Manual) 0.87 L (1.0-4.8) k/uL Metamyelocytes # (Man) 0.16 H (0) k/uL ABG pH 7.34 L (7.35-7.45) ABG pO2 132 H (83-108) mmHg ABG HCO3 19 L (21-25) mmol/L ABG Total CO2 (19-24) mmol/L ABG O2 Saturation 99.7 H (94-97) % Chloride 118 H (98-107) mmol/L Carbon Dioxide 17 L (22-30) mmol/L BUN 40 H (9-20) mg/dL Creatinine 2.30 H (0.66-1.25) mg/dL Glucose 123 H (74-99) mg/dL POC Glucose (mg/dL) (75-99) mg/dL Plasma Lactic Acid Harsh (0.7-2.0) mmol/L Calcium 6.7 L (8.4-10.2) mg/dL Troponin I (0.000-0.034) ng/mL Urine Protein (Negative) Ur Leukocyte Esterase (Negative) Urine RBC (0-5) /hpf Urine WBC (0-5) /hpf Urine WBC Clumps (None) /hpf Urine Bacteria (None) /hpf Hyaline Casts (0-2) /lpf Urine Mucus (None) /hpf Urine Yeast (Budding) (None) /hpf 12/23/20 Range/Units 06:01 RBC (4.30-5.90) m/uL Hgb (13.0-17.5) gm/dL Hct (39.0-53.0) % MCH (25.0-35.0) pg MCHC (31.0-37.0) g/dL RDW (11.5-15.5) % Lymphocytes # (Manual) (1.0-4.8) k/uL Metamyelocytes # (Man) (0) k/uL ABG pH (7.35-7.45) ABG pO2 (83-108) mmHg ABG HCO3 (21-25) mmol/L ABG Total CO2 (19-24) mmol/L ABG O2 Saturation (94-97) % Chloride (98-107) mmol/L Carbon Dioxide (22-30) mmol/L BUN (9-20) mg/dL Creatinine (0.66-1.25) mg/dL Glucose (74-99) mg/dL POC Glucose (mg/dL) 134 H (75-99) mg/dL Plasma Lactic Acid Harsh (0.7-2.0) mmol/L Calcium (8.4-10.2) mg/dL Troponin I (0.000-0.034) ng/mL Urine Protein (Negative) Ur Leukocyte Esterase (Negative) Urine RBC (0-5) /hpf Urine WBC (0-5) /hpf Urine WBC Clumps (None) /hpf Urine Bacteria (None) /hpf Hyaline Casts (0-2) /lpf Urine Mucus (None) /hpf Urine Yeast (Budding) (None) /hpf Microbiology - Last 24 Hours (Table) 12/22/20 13:11 Gram Stain - Preliminary Sputum Sputum Culture - Preliminary 12/22/20 16:57 Urine Culture - Preliminary Urine,Catheterized Assessment and Plan Assessment: Impression: Acute hypoxic respiratory failure secondary to septic shock, requiring intubati on and mechanical ventilation on 12/22/2020. Acute urinary tract infection Recent history of MSSA bacteremia. History of recurrent sepsis and multiple previous episodes of bacteremia. History of left above-knee amputation related to septic arthritis of the knee. Type 2 diabetes. History of DVT and pulmonary embolism on Xarelto. History of underlying COPD. Coronary artery disease and multiple stent placement. Ex-smoker. History of compression fractures of the thoracic and lumbar spine. Sacral decubitus ulcer stage II Acute kidney injury secondary to sepsis and acute tubular necrosis with septic shock. Acute lactic acidosis secondary to sepsis and septic shock. Recommendation: Continue ventilatory support. Start the nutritional support/enteral feeding. Continue antibiotics empirically including vancomycin and cefepime for now. Continue GI and DVT prophylaxis. Cut down hydrocortisone to 50 mg IV push every 12 hours. Continue IV fluids and patient will be given another bolus this morning h opefully will discontinue norepinephrine. Continue to monitor renal profile. Infectious disease consultation. Continue Xarelto. Address mental status daily off sedation. At this point the patient is not ready for any weaning trials. Consider weaning trials in the morning/in the next 24 hours. Patient is critically ill, we'll continue to follow. Critical care time is over 30 minutes Time with Patient: Greater than 30
[2020-12-23 13:51] LABS: Hemoglobin A1C 5.6 % (4.0-6.0)
[2020-12-23] MEDS: RIVAROXABAN 15 MG TAB PO SCH (15:06)
[2020-12-23 17:31] LABS: Glucose,Whole Blood 82 mg/dL (75-99)
[2020-12-23 23:55] LABS: Glucose,Whole Blood 114 mg/dL (75-99)
[2020-12-24] MEDS: INSULIN ASPART (NovoLOG) 100 UNIT/ML VIAL SQ SCH ×5 (01:03→23:40)
[2020-12-24 04:45] LABS: Anisocytosis Marked; Basophils % (A) 0 %; Eosinophils % (A) 0 %; HCT 26.9 % (39.0-53.0); HGB 8.4 gm/dL (13.0-17.5); Hypochromasia Moderate; Lymphocytes # (A) 0.5 k/uL (1.0-4.8); Lymphocytes % (A) 6 %; MCH 24.5 pg (25.0-35.0); MCHC 31.1 g/dL (31.0-37.0); MCV 78.6 fL (80.0-100.0); Mean Platelet Volume 9.8; Microcytosis Marked; Monocytes # (A) 0.3 k/uL (0-1.0); Monocytes % (A) 3 %; Neutrophils # (A) 8.1 k/uL (1.3-7.7); Neutrophils % (A) 91 %; Platelet Count 147 k/uL (150-450); Poikilocytosis Slight; RBC 3.43 m/uL (4.30-5.90); RDW 24.1 % (11.5-15.5); WBC 8.9 k/uL (3.8-10.6)
[2020-12-24 04:49] LABS: ABG Base Excess -10.2 mmol/L; ABG HCO3 15 mmol/L (21-25); ABG Oxygen Saturation 99.9 % (94-97); ABG PCO2 25 mmHg (35-45); ABG PH 7.38 (7.35-7.45); ABG PO2 152 mmHg (83-108); ABG TCO2 16 mmol/L (19-24); Allen Test Performed? Yes
[2020-12-24 05:14] LABS: Calcium 6.8 mg/dL (8.4-10.2); Potassium 3.9 mmol/L (3.5-5.1)
[2020-12-24 06:05] LABS: Glucose,Whole Blood 101 mg/dL (75-99)
[2020-12-24] MEDS: SODIUM CHLORIDE 0.9% 1,000 ML IV SCH ×5 (06:11→14:58)
[2020-12-24] MEDS ORDERED: VANCOMYCIN 1,250 MG in SODIUM CHLORIDE 0.9% 250 ML IVPB SCH (07:00)
[2020-12-24] MEDS ORDERED: Potassium Replacement Protocol 1 EACH MISC MISCELLANE PRN (07:33)
--- NOTE | 2020-12-24 07:51 | XR ---
EXAMINATION TYPE: XR chest 1V portable DATE OF EXAM: 12/24/2020 COMPARISON: 12/23/2020 HISTORY: Shortness of breath TECHNIQUE: Single frontal view of the chest is obtained. FINDINGS: There is an ET tube 2.7 cm above the tiffany. There is an NG tube in stomach. There is moderate interstitial prominence bilaterally but compared to the prior study there is better visualization of the left lung base and the diaphragm consistent with resolved left lower lobe pleur al effusion. Is no pneumothorax. Heart size is normal for the technique. There is a right shoulder arthroplasty ot herwise the osseous structures are intact. IMPRESSION: 1. ET tube approximately 2.7 cm above the tiffany. 2. Interval improvement of the chest with resolution of the left pleural effusion. 3.There is persistent mild interstitial prominence consistent with mild pulmonary vascular congestion .
[2020-12-24] MEDS ORDERED: POTASSIUM BICARBONATE/CIT AC 20 MEQ TABLET.EFF NG-TUBE SCH (08:00)
[2020-12-24] MEDS ORDERED: CEFEPIME 2 GM in SODIUM CHLORIDE 0.9% 100 ML IVPB SCH (09:00)
[2020-12-24] MEDS: NOREPINEPHRINE 4 MG in SODIUM CHLORIDE 0.9% 250 ML IV SCH ×2 (09:58→10:48)
[2020-12-24] MEDS ORDERED: SODIUM CHLORIDE 0.9% 1,000 ML IV ONE ×2 (10:13→11:26)
[2020-12-24] MEDS: PANTOPRAZOLE 40 MG/10 ML VIAL IV SCH (10:20)
[2020-12-24] MEDS: CHLORHEXIDINE GLUCONATE 15 ML CUP MUCOUS MEM SCH ×2 (10:34→21:54)
[2020-12-24] MEDS: SODIUM BICARBONATE TAB 650 MG TAB PO SCH ×3 (10:34→21:54)
[2020-12-24 12:06] LABS: Glucose,Whole Blood 109 mg/dL (75-99)
[2020-12-24] MEDS ORDERED: FUROSEMIDE 10 MG/ML 4 ML VIAL IV STA (12:59)
--- NOTE | 2020-12-24 14:01 | P.PN ---
Subjective Progress Note Date: 12/24/20 Principal diagnosis: Acute hypoxic episode of failure and septic shock. 75-year-old white male patient is well-known to our service from his previous admissions for complications related to episodes of sepsis. Patient has extensive medical history including history of COPD, diabetes mellitus type 2, hyperlipidemia, previous history of DVT and pulmonary embolism, patient is on Xarelto, coronary artery disease with previous stenting, anemia of chronic disease, bacteremia most recently related to MSSA, left lower extremity [id number] amputation related to septic arthritis of the left knee. he was brought into the emergency department per EMS on 12/22/2020 for evaluation of severe respiratory distress. On a to the hospital patient required CPAP support and bagging with DVM. His venous blood gas showed pH of 7.2 and pCO2 of 44, acute kidney injury with BUN of 46 and creatinine of 5.48, severe lactic acidosis with lactic acid of 7.9, related to suspected sepsis. Patient has had low-grade fever since admission. His had low blood pressures in the emergency department with a blood pressure 61/39, he was given 2 L fluid bolus in the emergency department, his lactic acid is still elevated but improving, in view of his significant metabolic acidosis and respiratory distress he was intubated and placed on mechanical ventilator. He has been started on Maxipime and vancomycin. His chest x-ray shows mild cardiomegaly and low lung volumes with moderate to advanced chronic parenchymal fibrotic changes bilaterally. No new acute infiltrates. COVID 19 PCR was negative. Blood cultures have been sent, urinalysis is possibility of urinary tract infection, we'll send a urine culture, sputum culture will also be sent. Patient had a mild troponin elevation of 0.087, and proBNP was 2150. He was seen in the ICU, remains hypotensive, he continues on IV fluids however his vasopressor requirements are minimal with the levo fed infusing at 3.6 mics per minute, he is on Diprivan at 10 mics per kilo per minute, and 0.9 normal saline 130 ML per hour. Patient was reevaluated today on 12/23/2020, patient was admitted yesterday with acute hypoxic Failure and Septic Shock, He Was Intubated Initially in the Emergency Room. Arrived to the ICU on Norepinephrine and Had to Place a Central Line and Arterial Line in the Patient upon Arrival to the ICU. Patient Is on Assist Control Rate of 18 Tidal Volume Is 400 FiO2 Is 35% PEEP Is 5. ABG Today Showed a PO2 of 132 PCO2 of 35 pH of 7.34. Patient Is on Propofol at 10 Mcg/Kg/M, He Is Now on Minimal Dose of Norepinephrine at 0.01 Mcg/Kg/M, Received Significant Amount of Fluid Boluses and Left Fluids Overnight. Remains on Vancomycin and Cefepime Empirically. He Also Received Solu-Cortef Yesterday Because of His Profound Hypotension, Today I Cut down His Cortef to 50 Mg IV Push Every 12 Hours. His Sputum Is Showing Gram-Negative Bacilli. Final Culture Is Pending. History of Functioning Is Improving BUN Is Improving Creatinine Is down to 2.30 from 5.48. Patient Continues to Have Significant Areas of Cellulitis Involving the Right Lower Extremity. And He Has a Left Above-Knee Amputation. Chest X-Ray Continues to Show by Basilar Opacities and Small Tiny Left Pleural Effusion. Patient was reevaluated today on 12/24/2020, patient remains in the ICU, intubated and mechanically ventilated. Ventilator settings are assist control rate of 18 tidal volume is 400 FiO2 is 35%, PEEP is 5. ABG today showed a pO2 of 152 pCO2 of 25 pH of 7.38, bicarb is noted to be low, hence the patient was started on sodium bicarb orally at 650 mEq equivalent 3 times a day. Patient remains on propofol at 25 mcg/kg/m, IV fluids remains at 13 0 mL/h, he is off norepinephrine. Patient remains on cefepime and vancomycin, he is also on Xarelto, today oral bicarb was added. Urine output is still marginal today, cr eatinine is improving down to 1.41, hence I recommended fluid boluses to be given and if no improvement with fluid boluses, patient will receive Lasix challenge. Patient is on enteral feeding, not To goal. CBC is relatively normal however hemoglobin is 8.4, electrolytes are normal bicarb is 15 BUN is 38 creatinine is 1.41. Patient has a bit of hyperchloremic metabolic acidosis. Sputum Gram stain is showing gram-negative bacilli, final culture is pending, in the meantime the patient again is on vancomycin and cefepime. Chest x-ray continued to show minimal bibasilar opacities. Objective - Vital Signs Vital signs: Vital Signs Temp 97.9 F 12/24/20 13:00 Pulse 69 12/24/20 13:00 Resp 21 12/24/20 13:00 BP 124/80 12/24/20 12:00 Pulse Ox 99 12/24/20 13:00 Intake & Output 12/23/20 12/24/20 12/24/20 17:59 06:59 18:59 Intake Total 3275.69 Output Total 65 Balance 3210.69 Weight Intake: IV 692 Sodium Chloride 0.9% 1, 650 000 ml @ 130 mls/hr IV . Q7H42M [facility] Rx#:[id number] pressure bag 42 Intake, IV Titration 2413.69 Amount Cefepime 1 gm In Sodium 100 Chloride 0.9% 50 ml @ 100 mls/hr IVPB DAILY@1200 [facility] Rx#:[id number] Norepinephrine 4 mg In Sodium Chloride 0.9% 250 ml @ 0.05 MCG/KG/MIN 13. 826 mls/hr IV .[id number] [facility] Rx#:[id number] Sodium Chloride 0.9% 1, 1000 000 ml @ 999 mls/hr IV . Q1H1M [facility] Rx#:[id number] Sodium Chloride 0.9% 1, 1000 000 ml @ 999 mls/hr IV . Q1H1M [facility] Rx#:[id number] Vancomycin 1,250 mg In 250 Sodium Chloride 0.9% 250 ml @ 125 mls/hr IVPB Q24H [facility] Rx#:[id number] propofoL 1,000 mg In 63.69 Empty Bag 1 bag @ Titrate IV .Q0M [facility] Rx#: [id number] Tube Feeding 110 Other 60 Output: Urine 65 Other: Voiding Method Indwelling Catheter ABP, PAP, CO, CI - Last Documented Arterial Blood Pressure 139/72 - Exam GENERAL EXAM: Revealed a 75-year-old white male intubated sedated on mechanical ventilation HEAD: Normocephalic/atraumatic. EENT: PERRLA, EOMI, nonicteric, short obese neck, no neck masses, no JVD, no stridor, endotracheal tube and orogastric tube are intact. CHEST: No chest wall deformity. Symmetrical expansion. LUNGS: Equal air entry minimal crackles at the bases. CVS: Regular rate and rhythm, normal S1 and S2, no gallops, no murmurs, no rubs ABDOMEN: Soft, nontender. No hepatosplenomegaly, normal bowel sounds, no guarding or rigidity. EXTREMITIES: Chronic abrasions and areas of cellulitis of the right lower extremity involving the dorsal aspect of the foot and dorsal aspect of the right tibia. Left above-knee amputation is noted. Lines noted in the right groin. MUSCULOSKELETAL:. Left slngq-juc-wclg amputee SKIN: As noted above. But since Abrasions Noted on the Right Foot, Right Lower Extremity, and There Is a Left Above-Knee Amputation CENTRAL NERVOUS SYSTEM: Could not fully assess, patient is still on propofol, will request sedation interruption and assessment of mental status again today. - Labs CBC & Chem 7: 12/24/20 04:30 12/24/20 04:30 Labs: Abnormal Lab Results - Last 24 Hours (Table) 12/23/20 12/24/20 12/24/20 Range/Units 23:53 04:30 04:30 RBC 3.43 L (4.30-5.90) m/uL Hgb 8.4 L (13.0-17.5) gm/dL Hct 26.9 L (39.0-53.0) % MCV 78.6 L (80.0-100.0) fL MCH 24.5 L (25.0-35.0) pg RDW 24.1 H (11.5-15.5) % Plt Count 147 L (150-450) k/uL Neutrophils # 8.1 H (1.3-7.7) k/uL Lymphocytes # 0.5 L (1.0-4.8) k/uL ABG pCO2 (35-45) mmHg ABG pO2 (83-108) mmHg ABG HCO3 (21-25) mmol/L ABG Total CO2 (19-24) mmol/L ABG O2 Saturation (94-97) % Chloride 122 H (98-107) mmol/L Carbon Dioxide 15 L (22-30) mmol/L BUN 38 H (9-20) mg/dL Creatinine 1.41 H (0.66-1.25) mg/dL POC Glucose (mg/dL) 114 H (75-99) mg/dL Calcium 6.8 L (8.4-10.2) mg/dL 12/24/20 12/24/20 12/24/20 Range/Units 04:44 06:04 12:05 RBC (4.30-5.90) m/uL Hgb (13.0-17.5) gm/dL Hct (39.0-53.0) % MCV (80.0-100.0) fL MCH (25.0-35.0) pg RDW (11.5-15.5) % Plt Count (150-450) k/uL Neutrophils # (1.3-7.7) k/uL Lymphocytes # (1.0-4.8) k/uL ABG pCO2 25 L (35-45) mmHg ABG pO2 152 H (83-108) mmHg ABG HCO3 15 L (21-25) mmol/L ABG Total CO2 16 L (19-24) mmol/L ABG O2 Saturation 99.9 H (94-97) % Chloride (98-107) mmol/L Carbon Dioxide (22-30) mmol/L BUN (9-20) mg/dL Creatinine (0.66-1.25) mg/dL POC Glucose (mg/dL) 101 H 109 H (75-99) mg/dL Calcium (8.4-10.2) mg/dL Microbiology - Last 24 Hours (Table) 12/22/20 11:30 Blood Culture - Preliminary Blood No Growth after 48 hours 12/22/20 11:20 Blood Culture - Preliminary Blood No Growth after 48 hours 12/22/20 13:11 Gram Stain - Preliminary Sputum Sputum Culture - Preliminary Gram Neg Bacilli Gram Neg Bacilli#2 12/22/20 16:57 Urine Culture - Final Urine,Catheterized Assessment and Plan Assessment: Impression: Acute hypoxic respiratory failure secondary to septic shock, requiring intubation and mechanical ventilation on 12/22/2020. Acute urinary tract infection Recent history of MSSA bacteremia. History of recurrent sepsis and multiple previous episodes of bacteremia. History of left above-knee amputation related to septic arthritis of the knee. Type 2 diabetes. History of DVT and pulmonary embolism on Xarelto. History of underlying COPD. Coronary artery disease and multiple stent placement. Ex-smoker. History of compression fractures of the thoracic and lumbar spine. Sacral decubitus ulcer stage II Acute kidney injury secondary to sepsis and acute tubular necrosis with septic shock. Acute lactic acidosis secondary to sepsis and septic shock. Recommendation: Continue ventilatory support. Daily interruption of sedation and mental status assessment and even consider checking weaning parameters. Continue enteral feeding/nutritional support. Continue GI prophylaxis. Hemodynamic support if necessary, patient is presently off norepinephrine. Cut down the dose of Solu-Cortef to 50 mg IV push daily and possibly discontinue in the next 24-48 hours. Continue antibiotics empirically including vancomycin and cefepime for now.Until the final cultures are available from the sputum, the sputum is positive for gram-negative bacilli. Continue GI and DVT prophylaxis. Cut down hydrocortisone to 50 mg IV push every 12 hours. Continue IV fluids , boluses if necessary. Continue to monitor renal profile. Continue Xarelto. Address mental status daily off sedation. Consider weaning trials in the morning/in the next 24 hours. Sodium bicarb orally will be given. For his hyperchloremic metabolic acidosis. Remains critically ill. Critical care time is over 30 minutes Time with Patient: Greater than 30
[2020-12-24] MEDS: RIVAROXABAN 15 MG TAB PO SCH (16:59)
[2020-12-24 17:51] LABS: Glucose,Whole Blood 128 mg/dL (75-99)
--- NOTE | 2020-12-24 18:25 | PN ---
PROGRESS NOTE DATE OF SERVICE: 12/24/2020 REASON FOR FOLLOWUP: Gram-negative aspiration pneumonia. INTERVAL HISTORY: The patient is currently afebrile. The patient is hemodynamically stable not on pressor support. FiO2 is currently 35%. No significant purulent secretions in the ET or diarrhea reported by nursing staff. PHYSICAL EXAMINATION: Blood pressure 140/71 with a pulse of 69, temperature 99.2. He is 100% on 35% FiO2. General description is an elderly male lying in bed in no distress. Respiratory system: Unlabored breathing, decreased breath sounds at bases. No wheeze. Heart S1, S2. Regular rate and rhythm. Abdomen: Soft, no tenderness. LAB: Sputum is showing Gram-negative. DIAGNOSTIC IMPRESSION AND PLAN: Patient with acute respiratory failure which is multifactorial in this patient with a component of Gram-negative pneumonia, possible aspiration etiology. Antibiotic will be adjusted to Zosyn and discontinue cefepime and vancomycin. at the bedside. Questions were answered. MMODL / IJN: [id number] /
[2020-12-24] MEDS: POTASSIUM BICARBONATE/CIT AC 20 MEQ TABLET.EFF NG-TUBE SCH ×2 (21:54→22:59)
[2020-12-24] MEDS: METOPROLOL TARTRATE 50 MG TAB PO SCH (21:54)
[2020-12-24 23:31] LABS: Glucose,Whole Blood 135 mg/dL (75-99)
[2020-12-24] MEDS: PIPERACILLIN-TAZOBACTAM 3.375 GM in SODIUM CHLORIDE 0.9% 100 ML IVPB SCH (23:40)
--- NOTE | 2020-12-25 00:23 | P.PN ---
Subjective Progress Note Date: 12/23/20 Principal diagnosis: Acute hypoxemic respiratory failure possibly due to septic shock Likely urinary source. 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 Patient was placed on CPAP by EMS and was unabl e to tolerate and was bagged with BVM. Patient was intubated upon arrival to the ER. Patient was in severe respiratory distress and was unable to provide any history. Chest x-ray showed new orogastric tube with satisfactory position. Mild cardiomegaly and low lung volumes with moderate to advanced chronic primary bilaterally redemonstrated. Abdominal x-ray showed NG tube curled in the fundus of the stomach. Prominent distention of the stomach and mildly distended small bowel loops measuring up to 3.1 cm. EKG showed sinus tachycardia Laboratory data showed WBC 10.1 hemoglobin 10.5 and platelets 280 ABG showed pH of 7.17, PCO2 43 PO2 greater than 400 Sodium 139 potassium 5.1 chloride 109 bicarb is 15 BUN 46 and creatinine 5.48 Lactic acid level 7.9 Troponin 0 087, proBNP 2150 Urinalysis showed large leukocyte esterase with elevated WBCs and RBCs count Coronavirus PCR not detected On admission blood pressure 73/30 and heart rate 118. 12/23/2020 Patient is currently in the MICU. Intubated and on mechanical ventilator and sedated. Patient is being continued on Levophed which is being tapered and also IV hydration. Remains on antibiotics in the form of vancomycin and cefepime. Sputum cultures showed gram-negative bacilli blood cultures have been negative so far. Urine culture is also negative so far. Laboratory data showed WBC 7.9, hemoglobin 9.6 and platelets 215 BUN 40 and creatinine 2.3, potassium 4.5 Chest x-ray showed no change in the small right lower lung partially consolidative opacity. Probable small left pleural effusion. Critical care team is on board. Current medications reviewed. Objective - Vital Signs Vital signs: Vital Signs Temp 97.3 F L 12/22/20 20:30 Pulse 77 12/22/20 22:00 Resp 18 12/22/20 22:00 BP 118/76 12/22/20 17:00 Pulse Ox 99 12/22/20 22:00 Intake & Output 12/22/20 12/23/20 12/23/20 18:59 06:59 18:59 Intake Total 9049.565 9666.724 177.082 Output Total 500 340 15 Balance 3715.180 9124.724 162.082 Weight 72.575 kg 66 kg 66 kg Intake: IV 15 1502 136 Sodium Chloride 0.9% 1, 1430 130 000 ml @ 130 mls/hr IV . Q7H42M [facility] Rx#:[id number] pressure bag 15 72 6 Intake, IV Titration 1675.554 189.724 41.082 Amount Norepinephrine 4 mg In 25.554 59.724 0 Sodium Chloride 0.9% 250 ml @ 0.05 MCG/KG/MIN 13. 826 mls/hr IV .[id number] [facility] Rx#:[id number] Sodium Chloride 0.9% 1, 650 130 000 ml @ 130 mls/hr IV . Q7H42M [facility] Rx#:[id number] Sodium Chloride 0.9% 1, 1000 000 ml @ 999 mls/hr IV . Q1H1M [facility] Rx#:[id number] propofoL 1,000 mg In 41.082 Empty Bag 1 bag @ Titrate IV .Q0M [facility] Rx#: [id number] Output: Urine 500 340 15 Uretheral (Mccain) 100 Other: Voiding Method Indwelling Catheter Indwelling Catheter Indwelling Catheter ABP, PAP, CO, CI - Last Documented Arterial Blood Pressure 113/67 - Exam PHYSICAL EXAMINATION: Patient is Is currently on mechanically ventilated. HEENT: Normocephalic. Neck is supple. Pupils reactive. Nostrils clear. Oral cavity is moist. Ears reveal no drainage. Neck reveals no JVD, carotid bruits, or thyromegaly. CHEST EXAMINATION: Trachea is central. Symmetrical expansion. Bibasilar diminished sounds. No wheezing. Scattered rhonchi. CARDIAC: Normal S1, S2 with no gallops. No murmurs ABDOMEN: Soft. Bowel sounds normal. No organomegaly. No abdominal bruits. Extremities: reveal no edema. No clubbing or cyanosis Neurologically on ventilator. No gross focal deficits noted Skin: No rash or skin lesions. Psychiatric: could not be assesed at this time. Musculoskeletal: No joint swelling or deformity. left AKA. - Labs CBC & Chem 7: 12/24/20 04:30 12/24/20 17:51 Labs: Abnormal Lab Results - Last 24 Hours (Table) 12/22/20 12/22/20 12/22/20 Range/Units 15:39 16:29 18:04 RBC (4.30-5.90) m/uL Hgb (13.0-17.5) gm/dL Hct (39.0-53.0) % MCH (25.0-35.0) pg MCHC (31.0-37.0) g/dL RDW (11.5-15.5) % Lymphocytes # (Manual) (1.0-4.8) k/uL Metamyelocytes # (Man) (0) k/uL ABG pH (7.35-7.45) ABG pO2 139 H (83-108) mmHg ABG HCO3 (21-25) mmol/L ABG Total CO2 27 H (19-24) mmol/L ABG O2 Saturation 99.6 H (94-97) % Chloride (98-107) mmol/L Carbon Dioxide (22-30) mmol/L BUN (9-20) mg/dL Creatinine (0.66-1.25) mg/dL Glucose (74-99) mg/dL POC Glucose (mg/dL) 178 H (75-99) mg/dL Plasma Lactic Acid Harsh 4.0 H* (0.7-2.0) mmol/L Calcium (8.4-10.2) mg/dL 12/22/20 12/23/20 12/23/20 Range/Units 23:53 05:00 05:00 RBC 4.02 L (4.30-5.90) m/uL Hgb 9.6 L (13.0-17.5) gm/dL Hct 32.1 L (39.0-53.0) % MCH 24.0 L (25.0-35.0) pg MCHC 30.0 L (31.0-37.0) g/dL RDW 23.5 H (11.5-15.5) % Lymphocytes # (Manual) 0.87 L (1.0-4.8) k/uL Metamyelocytes # (Man) 0.16 H (0) k/uL ABG pH (7.35-7.45) ABG pO2 (83-108) mmHg ABG HCO3 (21-25) mmol/L ABG Total CO2 (19-24) mmol/L ABG O2 Saturation (94-97) % Chloride 118 H (98-107) mmol/L Carbon Dioxide 17 L (22-30) mmol/L BUN 40 H (9-20) mg/dL Creatinine 2.30 H (0.66-1.25) mg/dL Glucose 123 H (74-99) mg/dL POC Glucose (mg/dL) 182 H (75-99) mg/dL Plasma Lactic Acid Harsh (0.7-2.0) mmol/L Calcium 6.7 L (8.4-10.2) mg/dL 12/23/20 12/23/20 Range/Units 05:09 06:01 RBC (4.30-5.90) m/uL Hgb (13.0-17.5) gm/dL Hct (39.0-53.0) % MCH (25.0-35.0) pg MCHC (31.0-37.0) g/dL RDW (11.5-15.5) % Lymphocytes # (Manual) (1.0-4.8) k/uL Metamyelocytes # (Man) (0) k/uL ABG pH 7.34 L (7.35-7.45) ABG pO2 132 H (83-108) mmHg ABG HCO3 19 L (21-25) mmol/L ABG Total CO2 (19-24) mmol/L ABG O2 Saturation 99.7 H (94-97) % Chloride (98-107) mmol/L Carbon Dioxide (22-30) mmol/L BUN (9-20) mg/dL Creatinine (0.66-1.25) mg/dL Glucose (74-99) mg/dL POC Glucose (mg/dL) 134 H (75-99) mg/dL Plasma Lactic Acid Harsh (0.7-2.0) mmol/L Calcium (8.4-10.2) mg/dL Microbiology - Last 24 Hours (Table) 12/22/20 11:30 Blood Culture - Preliminary Blood No Growth after 24 hours 12/22/20 11:20 Blood Culture - Preliminary Blood No Growth after 24 hours 12/22/20 13:11 Gram Stain - Preliminary Sputum Sputum Culture - Preliminary 12/22/20 16:57 Urine Culture - Preliminary Urine,Catheterized Assessment and Plan Assessment: Acute hypoxemic respiratory failure possibly due to septic shock Likely due to pneumonia. Sputum cultures positive for gram-negative bacilli. Recent history of bacteremia. Chest x-ray showed chronic changes. 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 Continue with Levophed drip. Continue with broad-spectrum antibiotics in the form of vancomycin and cefepime. GI prophylaxis. Follow-up culture reports. Prognosis poor at this time. Time with Patient: Greater than 30
--- NOTE | 2020-12-25 00:32 | P.PN ---
Subjective Progress Note Date: 12/24/20 Principal diagnosis: Acute hypoxemic respiratory failure possibly due to septic shock . 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 Patient was placed on CPAP by EMS and was unable to tolerate and was bagged with BVM. Patient was intubated upon arrival to the ER. Patient was in severe respiratory distress and was unable to provide any history. Chest x-ray showed new orogastric tube with satisfactory position. Mild cardiomegaly and low lung volumes with moderate to advanced chronic primary muna aterally redemonstrated. Abdominal x-ray showed NG tube curled in the fundus of the stomach. Prominent distention of the stomach and mildly distended small bowel loops measuring up to 3.1 cm. EKG showed sinus tachycardia Laboratory data showed WBC 10.1 hemoglobin 10.5 and platelets 280 ABG showed pH of 7.17, PCO2 43 PO2 greater than 400 Sodium 139 potassium 5.1 chloride 109 bicarb is 15 BUN 46 and creatinine 5.48 Lactic acid level 7.9 Troponin 0 087, proBNP 2150 Urinalysis showed large leukocyte esterase with elevated WBCs and RBCs count Coronavirus PCR not detected On admission blood pressure 73/30 and heart rate 118. 12/23/2020 Patient is currently in the MICU. Intubated and on mechanical ventilator and sedated. Patient is being continued on Levophed which is being tapered and also IV hydration. Remains on antibiotics in the form of vancomycin and cefepime. Sputum cultures showed gram-negative bacilli blood cultures have been negative so far. Urine culture is also negative so far. Laboratory data showed WBC 7.9, hemoglobin 9.6 and platelets 215 BUN 40 and creatinine 2.3, potassium 4.5 Chest x-ray showed no change in the small right lower lung partially consolidative opacity. Probable small left pleural effusion. Critical care team is on board. 12/24/2020 Patient remains on mechanical ventilator and sedated. AC 400 with FiO2 35% and PEEP of 5. Patient is off Levophed drip. Sputum cultures showed gram-negative bacilli and antibiotics were changed to Zosyn to cover aspiration pneumonia and gram- negative pneumonia. Chest x-ray showed interval improvement of the chest with resolution of the left pleural effusion. There is a persistent mild interstitial prominence consistent with mild pulmonary vascular congestion. Laboratory data showed WBC 8.9, hemoglobin 8.4 and platelets 147 BUN 38 and creatinine 1.41. Bicarb level 15. Patient was started sodium bicarbonate by mouth. Pulmonary and ID is on board. Current medications reviewed. Objective - Vital Signs Vital signs: Vital Signs Temp 97.2 F L 12/24/20 16:00 Pulse 75 12/24/20 16:00 Resp 26 H 12/24/20 16:00 BP 136/84 12/24/20 16:00 Pulse Ox 100 12/24/20 16:00 Intake & Output 12/23/20 12/24/20 12/24/20 17:59 06:59 18:59 Intake Total 3813.066 Output Total 690 Balance 3123.066 Weight Intake: IV 1100 Sodium Chloride 0.9% 1, 1040 000 ml @ 130 mls/hr IV . Q7H42M [facility] Rx#:[id number] pressure bag 60 Intake, IV Titration 2483.066 Amount Cefepime 1 gm In Sodium 100 Chloride 0.9% 50 ml @ 100 mls/hr IVPB DAILY@1200 [facility] Rx#:[id number] Norepinephrine 4 mg In Sodium Chloride 0.9% 250 ml @ 0.05 MCG/KG/MIN 13. 826 mls/hr IV .[id number] [facility] Rx#:[id number] Sodium Chloride 0.9% 1, 1000 000 ml @ 999 mls/hr IV . Q1H1M [facility] Rx#:[id number] Sodium Chloride 0.9% 1, 1000 000 ml @ 999 mls/hr IV . Q1H1M [facility] Rx#:[id number] Vancomycin 1,250 mg In 250 Sodium Chloride 0.9% 250 ml @ 125 mls/hr IVPB Q24H [facility] Rx#:[id number] propofoL 1,000 mg In 133.066 Empty Bag 1 bag @ Titrate IV .Q0M [facility] Rx#: [id number] Tube Feeding 170 Other 60 Output: Urine 690 Other: Voiding Method Indwelling Catheter ABP, PAP, CO, CI - Last Documented Arterial Blood Pressure 148/78 - Exam PHYSICAL EXAMINATION: Patient is Is currently on mechanically ventilated. HEENT: Normocephalic. Neck is supple. Pupils reactive. Nostrils clear. Oral cavity is moist. Ears reveal no drainage. Neck reveals no JVD, carotid bruits, or thyromegaly. CHEST EXAMINATION: Trachea is central. Symmetrical expansion. Bibasilar diminished sounds. No wheezing. Scattered rhonchi. CARDIAC: Normal S1, S2 with no gallops. No murmurs ABDOMEN: Soft. Bowel sounds normal. No organomegaly. No abdominal bruits. Extremities: reveal no edema. No clubbing or cyanosis Neurologically on ventilator. No gross focal deficits noted Skin: No rash or skin lesions. Psychiatric: could not be assesed at this time. Musculoskeletal: No joint swelling or deformity. left AKA. - Labs CBC & Chem 7: 12/24/20 04:30 12/24/20 17:51 Labs: Abnormal Lab Results - Last 24 Hours (Table) 12/23/20 12/24/20 12/24/20 Range/Units 23:53 04:30 04:30 RBC 3.43 L (4.30-5.90) m/uL Hgb 8.4 L (13.0-17.5) gm/dL Hct 26.9 L (39.0-53.0) % MCV 78.6 L (80.0-100.0) fL MCH 24.5 L (25.0-35.0) pg RDW 24.1 H (11.5-15.5) % Plt Count 147 L (150-450) k/uL Neutrophils # 8.1 H (1.3-7.7) k/uL Lymphocytes # 0.5 L (1.0-4.8) k/uL ABG pCO2 (35-45) mmHg ABG pO2 (83-108) mmHg ABG HCO3 (21-25) mmol/L ABG Total CO2 (19-24) mmol/L ABG O2 Saturation (94-97) % Chloride 122 H (98-107) mmol/L Carbon Dioxide 15 L (22-30) mmol/L BUN 38 H (9-20) mg/dL Creatinine 1.41 H (0.66-1.25) mg/dL POC Glucose (mg/dL) 114 H (75-99) mg/dL Calcium 6.8 L (8.4-10.2) mg/dL 12/24/20 12/24/20 12/24/20 Range/Units 04:44 06:04 12:05 RBC (4.30-5.90) m/uL Hgb (13.0-17.5) gm/dL Hct (39.0-53.0) % MCV (80.0-100.0) fL MCH (25.0-35.0) pg RDW (11.5-15.5) % Plt Count (150-450) k/uL Neutrophils # (1.3-7.7) k/uL Lymphocytes # (1.0-4.8) k/uL ABG pCO2 25 L (35-45) mmHg ABG pO2 152 H (83-108) mmHg ABG HCO3 15 L (21-25) mmol/L ABG Total CO2 16 L (19-24) mmol/L ABG O2 Saturation 99.9 H (94-97) % Chloride (98-107) mmol/L Carbon Dioxide (22-30) mmol/L BUN (9-20) mg/dL Creatinine (0.66-1.25) mg/dL POC Glucose (mg/dL) 101 H 109 H (75-99) mg/dL Calcium (8.4-10.2) mg/dL Microbiology - Last 24 Hours (Table) 12/22/20 11:30 Blood Culture - Preliminary Blood No Growth after 48 hours 12/22/20 11:20 Blood Culture - Preliminary Blood No Growth after 48 hours 12/22/20 13:11 Gram Stain - Preliminary Sputum Sputum Culture - Preliminary Gram Neg Bacilli Gram Neg Bacilli#2 12/22/20 16:57 Urine Culture - Final Urine,Catheterized Assessment and Plan Assessment: Acute hypoxemic respiratory failure possibly due to septic shock Likely due to gm -ve pneumonia. Sputum cultures positive for gram-negative bacilli. Recent history of bacteremia. 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 Continue with Levophed drip. Continue with broad-spectrum antibiotics in the form of vancomycin and cefepime, chnaged to Zosyn. GI prophylaxis. Follow-up final sputum culture reports. Prognosis poor at this time. Time with Patient: Greater than 30
[2020-12-25] MEDS ORDERED: Magnesium Replacement Protocol 1 EACH MISC MISCELLANE PRN (02:12)
[2020-12-25] MEDS: MAGNESIUM SULFATE-D5W PMX 1 GM in DEXTROSE/WATER 1 100ML.BAG IVPB SCH ×3 (02:29→04:37)
[2020-12-25] MEDS ORDERED: POTASSIUM BICARBONATE/CIT AC 20 MEQ TABLET.EFF NG-TUBE SCH ×2 (03:00→08:00)
[2020-12-25] MEDS: NOREPINEPHRINE 4 MG in SODIUM CHLORIDE 0.9% 250 ML IV SCH ×2 (03:31→18:45)
[2020-12-25] MEDS: SODIUM CHLORIDE 0.9% 1,000 ML IV SCH ×3 (03:35→15:39)
[2020-12-25 04:42] LABS: Calcium 6.8 mg/dL (8.4-10.2); Potassium 3.8 mmol/L (3.5-5.1)
[2020-12-25 05:21] LABS: ABG Base Excess -7.6 mmol/L; ABG HCO3 16 mmol/L (21-25); ABG Oxygen Saturation 99.8 % (94-97); ABG PCO2 23 mmHg (35-45); ABG PH 7.46 (7.35-7.45); ABG PO2 141 mmHg (83-108); ABG TCO2 17 mmol/L (19-24); Allen Test Performed? Yes
[2020-12-25 06:17] LABS: Glucose,Whole Blood 130 mg/dL (75-99)
[2020-12-25 07:16] LABS: Anisocytosis Marked; Basophils % (A) 0 %; Eosinophils % (A) 0 %; HCT 27.6 % (39.0-53.0); HGB 8.6 gm/dL (13.0-17.5); Hypochromasia Moderate; Lymphocytes # (A) 0.8 k/uL (1.0-4.8); Lymphocytes % (A) 8 %; MCH 24.4 pg (25.0-35.0); MCHC 31.2 g/dL (31.0-37.0); MCV 78.2 fL (80.0-100.0); Mean Platelet Volume 8.8; Microcytosis Marked; Monocytes # (A) 0.3 k/uL (0-1.0); Monocytes % (A) 3 %; Neutrophils # (A) 8.8 k/uL (1.3-7.7); Neutrophils % (A) 88 %; Platelet Count 164 k/uL (150-450); Poikilocytosis Slight; RBC 3.53 m/uL (4.30-5.90); RDW 24.5 % (11.5-15.5)
[2020-12-25] MEDS: INSULIN ASPART (NovoLOG) 100 UNIT/ML VIAL SQ SCH ×4 (07:54→23:47)
[2020-12-25] MEDS: PIPERACILLIN-TAZOBACTAM 3.375 GM in SODIUM CHLORIDE 0.9% 100 ML IVPB SCH ×3 (09:01→23:50)
--- NOTE | 2020-12-25 09:02 | XR ---
EXAMINATION TYPE: XR chest 1V portable DATE OF EXAM: 12/25/2020 Comparison: 12/24/2020 Clinical History: 75-year-old male Assess lungs Findings: Partially visualized right shoulder reverse arthroplasty. ET tube satisfactory. NG tube courses below the diaphragm. Heart mildly enlarged. Diffuse interstitial density. Small left effusion slightly inc reased. Suspect trace right effusion. Impression: 1. Correlate for CHF with ongoing pulmonary vascular congestion. 2. Increasing small left pleural effusion with adjacent atelectasis and/or consolidation.
[2020-12-25] MEDS ORDERED: FUROSEMIDE 10 MG/ML 10 ML VIAL IV STA (09:03)
--- NOTE | 2020-12-25 09:42 | P.PN ---
Subjective Progress Note Date: 12/25/20 Principal diagnosis: Acute hypoxic respiratory failure, septic shock 75-year-old white male patient is well-known to our service from his previous admissions for complications related to episodes of sepsis. Patient has extensive medical history including history of COPD, diabetes mellitus type 2, hyperlipidemia, previous history of DVT and pulmonary embolism, patient is on Xa relto, coronary artery disease with previous stenting, anemia of chronic disease, bacteremia most recently related to MSSA, left lower extremity [id number] amputation related to septic arthritis of the left knee. he was brought into the emergency department per EMS on 12/22/2020 for evaluation of severe respiratory distress. On a to the hospital patient required CPAP support and bagging with DVM. His venous blood gas showed pH of 7.2 and pCO2 of 44, acute kidney injury with BUN of 46 and creatinine of 5.48, severe lactic acidosis with lactic acid of 7.9, related to suspected sepsis. Patient has had low-grade fever since admission. His had low blood pressures in the emergency department with a blood pressure 61/39, he was given 2 L fluid bolus in the emergency department, his lactic acid is still elevated but improving, in view of his significant metabolic acidosis and respiratory distress he was intubated and placed on mechanical ventilator. He has been started on Maxipime and vancomycin. His chest x-ray shows mild cardiomegaly and low lung volumes with moderate to advanced chronic parenchymal fibrotic changes bilaterally. No new acute infiltrates. COVID 19 PCR was negative. Blood cultures have been sent, urinalysis is possibility of urinary tract infection, we'll send a urine culture, sputum culture will also be sent. Patient had a mild troponin elevation of 0.087, and proBNP was 2150. He was seen in the ICU, remains hypotensive, he continues on IV fluids however his vasopressor requirements are minimal with the levo fed infusing at 3.6 mics per minute, he is on Diprivan at 10 mics per kilo per minute, and 0.9 normal saline 130 ML per hour. Patient was reevaluated today on 12/23/2020, patient was admitted yesterday with acute hypoxic Failure and Septic Shock, He Was Intubated Initially in the Emergency Room. Arrived to the ICU on Norepinephrine and Had to Place a Central Line and Arterial Line in the Patient upon Arrival to the ICU. Patient Is on Assist Control Rate of 18 Tidal Volume Is 400 FiO2 Is 35% PEEP Is 5. ABG Today Showed a PO2 of 132 PCO2 of 35 pH of 7.34. Patient Is on Propofol at 10 Mcg/Kg/M, He Is Now on Minimal Dose of Norepinephrine at 0.01 Mcg/Kg/M, Received Significant Amount of Fluid Boluses and Left Fluids Overnight. Remains on Vancomycin and Cefepime Empirically. He Also Received Solu-Cortef Yesterday Because of His Profound Hypotension, Today I Cut down His Cortef to 50 Mg IV Push Every 12 Hours. His Sputum Is Showing Gram-Negative Bacilli. Final Culture Is Pending. History of Functioning Is Improving BUN Is Improving Creatinine Is down to 2.30 from 5.48. Patient Continues to Have Significant Areas of Cellulitis Involving the Right Lower Extremity. And He Has a Left Above-Knee Amputation. Chest X-Ray Continues to Show by Basilar Opacities and Small Tiny Left Pleural Effusion. Patient was reevaluated today on 12/24/2020, patient remains in the ICU, intubated and mechanically ventilated. Ventilator settings are assist control rate of 18 tidal volume is 400 FiO2 is 35%, PEEP is 5. ABG today showed a pO2 of 152 pCO2 of 25 pH of 7.38, bicarb is noted to be low, hence the patient was started on sodium bicarb orally at 650 mEq equivalent 3 times a day. Patient remains on propofol at 25 mcg/kg/m, IV fluids remains at 13 0 mL/h, he is off norepinephrine. Patient remains on cefepime and vancomycin, he is also on Xarelto, today oral bicarb was added. Urine output is still marginal today, creatinine is improving down to 1.41, hence I recommended fluid boluses to be given and if no improvement with fluid boluses, patient will receive Lasix challenge. Patient is on enteral feeding, not To goal. CBC is relatively normal however hemoglobin is 8.4, electrolytes are normal bicarb is 15 BUN is 38 creatinine is 1.41. Patient has a bit of hyperchloremic metabolic acidosis. Sputum Gram stain is showing gram-negative bacilli, final culture is pending, in the meantime the patient again is on vancomycin and cefepime. Chest x-ray continued to show minimal bibasilar opacities. On 12/25/2020 patient seen in follow-up in intensive care unit. Patient is sedated, intubated, on assist control mode of ventilation, with a rate of 18, tidal volumes 400, FiO2 35% and PEEP of 5, displaced blood gases showed pO2 of 141, pCO2 of 23, and pH of 7.46, patient's IV fluids including 0.9 normal saline at a rate of 1:30 ML per hour, Diprivan is a 50 mics per kilo per minute, levo fed has been weaned off since early this morning, and patient is receiving tube feedings in the form of vital high-protein at 35 with a goal of 35 with standard water flushes at 30 mg every 4 hours. Yesterday patient was given a daily interruption of sedation, in apparently before the different and was even completely weaned off and he became quite tachycardic, tachypneic, agitated, however did not follow commands. His chest x-ray shows pulmonary vascular congestion, increasing small left pleural effusion with adjacent atelectasis and/or consolidation. She has received significant amount of IV fluids for septic shock, he is up 4 kg in the last 48 hours. Yesterday he was given a dose of IV Lasix, and he has produced 1.5 L in urine output, we'll give the patient another dose of IV Lasix today, remains on hydrocortisone currently at 50 mg daily. He is on IV antibiotics in the form of Zosyn, his sputum cultures showed 2 gram-negative bacilli organisms, final culture is pending, blood and urine cultures have shown no growth, he has had no fever since admission. Objective - Vital Signs Vital signs: Vital Signs Temp 97.9 F 12/25/20 04:00 Pulse 59 L 12/25/20 07:00 Resp 26 H 12/25/20 07:00 BP 137/86 12/25/20 01:00 Pulse Ox 100 12/25/20 07:00 Intake & Output 12/24/20 12/25/20 12/25/20 18:59 06:59 18:59 Intake Total 4354.826 2062.55 629.41 Output Total 1120 445 75 Balance 3234.826 1617.55 554.41 Weight 70 kg Intake: IV 1508 1496 408 Magnesium Sulfate-D5w Pmx 200 1 gm In Dextrose/Water 1 100ml.bag @ 100 mls/hr IVPB Q1H [facility] Rx#: [id number] Piperacillin-Tazobactam 3 100 .375 gm In Sodium Chloride 0.9% 100 ml @ 25 mls/hr IVPB Q8HR [facility] Rx# :[id number] Sodium Chloride 0.9% 1, 1430 1130 390 000 ml @ 130 mls/hr IV . Q7H42M [facility] Rx#:[id number] pressure bag 78 66 18 Intake, IV Titration 2506.826 176.55 91.41 Amount Cefepime 1 gm In Sodium 100 Chloride 0.9% 50 ml @ 100 mls/hr IVPB DAILY@1200 [facility] Rx#:[id number] Sodium Chloride 0.9% 1, 1000 000 ml @ 999 mls/hr IV . Q1H1M [facility] Rx#:[id number] Sodium Chloride 0.9% 1, 1000 000 ml @ 999 mls/hr IV . Q1H1M [facility] Rx#:[id number] Vancomycin 1,250 mg In 250 Sodium Chloride 0.9% 250 ml @ 125 mls/hr IVPB Q24H [facility] Rx#:[id number] propofoL 1,000 mg In 156.826 176.55 91.41 Empty Bag 1 bag @ Titrate IV .Q0M [facility] Rx#: [id number] Tube Feeding 250 300 100 Other 90 90 30 Output: Urine 1120 445 75 Other: Voiding Method Indwelling Catheter Indwelling Catheter ABP, PAP, CO, CI - Last Documented Arterial Blood Pressure 138/75 - Exam GENERAL EXAM: Intubated, sedated, comfortable in no apparent distress. HEAD: Normocephalic/atraumatic. EYES: Normal reaction of pupils, left pupil is greater than right Conjunctiva pink, sclera white. NOSE: Clear with pink turbinates. THROAT: No erythema or exudates. NECK: No masses, no JVD, no thyroid enlargement, no adenopathy. CHEST: No chest wall deformity. Symmetrical expansion. LUNGS: Equal air entry with no crackles, wheeze, rhonchi or dullness. CVS: Regular rate and rhythm, normal S1 and S2, no gallops, no murmurs, no rubs ABDOMEN: Soft, nontender. No hepatosplenomegaly, normal bowel sounds, no guarding or rigidity. EXTREMITIES: No clubbing, no edema, no cyanosis, 2+ pulses and upper and lower extremities. MUSCULOSKELETAL: Muscle strength and tone normal. Left wwjoq-[id number] amputee SPINE: No scoliosis or deformity SKIN: No rashes. Small scab present on right foot CENTRAL NERVOUS SYSTEM: Sedated, intubated No focal deficits, tone is normal in all 4 extremities. - Labs CBC & Chem 7: 12/25/20 04:00 12/25/20 04:00 Labs: Abnormal Lab Results - Last 24 Hours (Table) 12/24/20 12/24/20 12/24/20 Range/Units 12:05 17:48 23:30 RBC (4.30-5.90) m/uL Hgb (13.0-17.5) gm/dL Hct (39.0-53.0) % MCV (80.0-100.0) fL MCH (25.0-35.0) pg RDW (11.5-15.5) % Neutrophils # (1.3-7.7) k/uL Lymphocytes # (1.0-4.8) k/uL ABG pH (7.35-7.45) ABG pCO2 (35-45) mmHg ABG pO2 (83-108) mmHg ABG HCO3 (21-25) mmol/L ABG Total CO2 (19-24) mmol/L ABG O2 Saturation (94-97) % Chloride (98-107) mmol/L Carbon Dioxide (22-30) mmol/L BUN (9-20) mg/dL Glucose (74-99) mg/dL POC Glucose (mg/dL) 109 H 128 H 135 H (75-99) mg/dL Calcium (8.4-10.2) mg/dL Magnesium (1.6-2.3) mg/dL 12/25/20 12/25/20 12/25/20 Range/Units 00:35 04:00 04:00 RBC 3.53 L (4.30-5.90) m/uL Hgb 8.6 L (13.0-17.5) gm/dL Hct 27.6 L (39.0-53.0) % MCV 78.2 L (80.0-100.0) fL MCH 24.4 L (25.0-35.0) pg RDW 24.5 H (11.5-15.5) % Neutrophils # 8.8 H (1.3-7.7) k/uL Lymphocytes # 0.8 L (1.0-4.8) k/uL ABG pH (7.35-7.45) ABG pCO2 (35-45) mmHg ABG pO2 (83-108) mmHg ABG HCO3 (21-25) mmol/L ABG Total CO2 (19-24) mmol/L ABG O2 Saturation (94-97) % Chloride 123 H (98-107) mmol/L Carbon Dioxide 16 L (22-30) mmol/L BUN 36 H (9-20) mg/dL Glucose 138 H (74-99) mg/dL POC Glucose (mg/dL) (75-99) mg/dL Calcium 6.8 L (8.4-10.2) mg/dL Magnesium 1.4 L (1.6-2.3) mg/dL 12/25/20 12/25/20 Range/Units 05:16 06:15 RBC (4.30-5.90) m/uL Hgb (13.0-17.5) gm/dL Hct (39.0-53.0) % MCV (80.0-100.0) fL MCH (25.0-35.0) pg RDW (11.5-15.5) % Neutrophils # (1.3-7.7) k/uL Lymphocytes # (1.0-4.8) k/uL ABG pH 7.46 H (7.35-7.45) ABG pCO2 23 L (35-45) mmHg ABG pO2 141 H (83-108) mmHg ABG HCO3 16 L (21-25) mmol/L ABG Total CO2 17 L (19-24) mmol/L ABG O2 Saturation 99.8 H (94-97) % Chloride (98-107) mmol/L Carbon Dioxide (22-30) mmol/L BUN (9-20) mg/dL Glucose (74-99) mg/dL POC Glucose (mg/dL) 130 H (75-99) mg/dL Calcium (8.4-10.2) mg/dL Magnesium (1.6-2.3) mg/dL Microbiology - Last 24 Hours (Table) 12/22/20 11:30 Blood Culture - Preliminary Blood No Growth after 48 hours 12/22/20 11:20 Blood Culture - Preliminary Blood No Growth after 48 hours 12/22/20 13:11 Gram Stain - Preliminary Sputum Sputum Culture - Preliminary Gram Neg Bacilli Gram Neg Bacilli#2 Assessment and Plan Plan: Assessment: #1. Acute hypoxic respiratory failure related to septic shock possibly related to acute urinary tract infection and gram-negative pneumonia, community acquired requiring intubation and placement on mechanical ventilator on 12/22/2020, COVID 19 PCR was negative #2. Acute urinary tract infection #3. Recent history of MSSA bacteremia in October 2020 #4. Previous history of recurrent sepsis and previous bacteremia #5. History of left knee septic arthritis status post left hjbsn-joa-zvwk amputation #6. DM II #7. History of COPD #8. History of PE and DVT, on Xarelto #9. History of coronary artery disease with previous stent placement #10. Former nicotine dependence #11. Anxiety/depression #12. Chronic back pain with history of multiple compression fractures in his thoracic and lumbar spine at T12-L1, L3-L4 #13. Stage II on sacrum, present on admission #14. Acute kidney injury secondary to sepsis and acute tubular necrosis with septic shock, resolved #15. Acute lactic acidosis related to sepsis and septic shock, improved Plan: Proceed with daily , and we'll try the patient on pressure control of 5 and CPAP of 5. Hemodynamically patient is doing much better, he is off vasopressor support since this morning, she will receive additional dose of Lasix 60 mg 1. Will await final results of the sputum culture, patient is currently covered with Zosyn, he's had no fever or chills, today's labs show improvement in patient's renal function. Patient has multiple comorbidities, advanced COPD, if she doesn't tolerate daily interruption of sedation and spontaneous breathing trials he may need early tracheostomy and PEG tube placement. I performed a history & physical examination of the patient and discussed their management with my nurse practitioner, Yoselin Wiggins. I reviewed the nurse practitioner's note and agree with the documented findings and plan of care. Lung sounds are positive for diminished breath sounds. The findings and the impression was discussed with the patient. I attest to the documentation by the nurse practitioner. Time with Patient: Greater than 30
[2020-12-25] MEDS: PANTOPRAZOLE 40 MG/10 ML VIAL IV SCH (09:43)
[2020-12-25] MEDS: HYDROCORTISONE SUCCINATE 100 MG/2 ML VIAL IV SCH (09:45)
[2020-12-25] MEDS: SODIUM BICARBONATE TAB 650 MG TAB PO SCH ×3 (09:48→21:14)
[2020-12-25] MEDS: METOPROLOL TARTRATE 50 MG TAB PO SCH (09:48)
[2020-12-25] MEDS: CHLORHEXIDINE GLUCONATE 15 ML CUP MUCOUS MEM SCH ×2 (10:19→21:14)
[2020-12-25 11:44] LABS: Glucose,Whole Blood 124 mg/dL (75-99)
[2020-12-25] MEDS: IPRATROPIUM-ALBUTEROL 3 ML NEB INHALATION SCH ×4 (12:07→23:36)
[2020-12-25] MEDS: MORPHINE SULFATE 2 MG/ML SYRINGE IV PRN (13:32)
[2020-12-25] MEDS ORDERED: HYDROmorphone 1 MG/ML 1 ML SYRINGE IVP PRN (15:16)
--- NOTE | 2020-12-25 15:32 | CONS ---
CONSULTATION REASON FOR CONSULTATION: Paroxysmal supraventricular tachycardia. This is a gentleman with a known history of multiple medical problems in the ICU. He has what seems to be history of COPD, diabetes, hyperlipidemia, previous DVT, pulmonary embolism, and also has had documented CAD in the past. He is on a ventilator at this time. Receiving also a Diprivan drip. Levophed has been weaned off. Last night there were at least 2 documented episodes of paroxysmal supraventricular tachycardia, nonsustained, self-limited. At that time, his beta lisa dose was not given. He also had a mild hypokalemia and hypomagnesemia. However, he seems to be doing hemodynamically much better today. He is currently in sinus rhythm. Please refer to the detailed note by Dr. Tesfaye, which outlines most of his current critical care issues. From a cardiac standpoint, he appears to be stable hemodynamically with discontinuation of his Levophed drip. PAST MEDICAL HISTORY: His past medical history is positive for CAD, DVT, pulmonary embolism, rheumatoid arthritis, and he has also been on anticoagulants at home in the form of Xarelto 20 mg daily. On reviewing the rhythm strips, the SVT appears to be brief and self-limited. PHYSICAL EXAMINATION: On examination, blood pressure is 122/70, pulse rate is about 68 per minute regular. HEENT unremarkable. Fundus was not examined by me. NECK: Supple. There is JVD 1 cm. No carotid bruit. Heart exam reveals S1, S2 with ejection systolic murmur. Lungs reveal bilateral ventilator assisted breath sounds. Abdomen is soft, nontender. Lower extremities reveal diminished pulses. This patient had a transesophageal echo in October of this year, which revealed dilated left atrium. Left ventricular size was normal with mild global decrease in contractility. There was no evidence of any vegetations. There was moderate mitral and also tricuspid insufficiency. There was moderate pulmonary hypertension noted. IMPRESSION: 1. Paroxysmal supraventricular tachycardia in the setting of hypokalemia and hypomagnesemia. 2. Sepsis. 3. Respiratory failure. 4. History of coronary artery disease with prior PCI. RECOMMENDATIONS: I am recommending that we supplement potassium and magnesium and beta lisa has been resumed. We will give it consistently. If he has any breakthrough SVT, I will consider other medications. Otherwise, we will resume the beta lisa, supplement potassium and magnesium and recheck these labs tomorrow. Prognosis remains guarded. I discussed my thoughts in detail with the nurse. No family members were available. MMODL / IJN: [id number] /
[2020-12-25] MEDS: POTASSIUM BICARBONATE/CIT AC 20 MEQ TABLET.EFF NG-TUBE SCH ×2 (15:38→17:27)
[2020-12-25 18:29] LABS: Glucose,Whole Blood 151 mg/dL (75-99)
[2020-12-25] MEDS: RIVAROXABAN 15 MG TAB PO SCH (18:37)
--- NOTE | 2020-12-25 22:50 | P.PN ---
Subjective Progress Note Date: 12/25/20 He remains intubated and sedated today, continues with zoysn. Sputum cultures growing gram negative rods. He is being followed by Pulmonology and Cardiology. Pt reflecting net positive fluid balance and receiving lasix. Objective - Vital Signs Vital signs: Vital Signs Temp 98.2 F 12/25/20 20:00 Pulse 98 12/25/20 22:00 Resp 22 12/25/20 22:00 BP 100/67 12/25/20 21:00 Pulse Ox 96 12/25/20 22:00 Intake & Output 12/25/20 12/25/20 12/26/20 06:59 18:59 06:59 Intake Total 2062.55 1646.665 104 Output Total 445 2250 335 Balance 1617.55 -603.335 -231 Weight 70 kg Intake: IV 1496 912 104 Magnesium Sulfate-D5w Pmx 200 1 gm In Dextrose/Water 1 100ml.bag @ 100 mls/hr IVPB Q1H [facility] Rx#: [id number] Piperacillin-Tazobactam 3 100 50 .375 gm In Sodium Chloride 0.9% 100 ml @ 25 mls/hr IVPB Q8HR [facility] Rx# :[id number] Sodium Chloride 0.9% 1, 1130 790 80 000 ml @ 75 mls/hr IV . [id number] [facility] Rx#:[id number] pressure bag 66 72 24 Intake, IV Titration 176.55 264.665 Amount propofoL 1,000 mg In 176.55 264.665 Empty Bag 1 bag @ Titrate IV .Q0M [facility] Rx#: [id number] Tube Feeding 300 380 0 Other 90 90 Output: Urine 445 2250 335 Other: Voiding Method Indwelling Catheter Indwelling Catheter Indwelling Catheter # Bowel Movements 1 ABP, PAP, CO, CI - Last Documented Arterial Blood Pressure 117/71 - Exam General: Intubated, sedated. Obese. Vitals reviewed Lungs: coarse breath sounds, no wheezes or rales CV: Regular rate and rhythm, no murmur. Abdomen: soft, nondistended Skin: warm and dry. - Labs CBC & Chem 7: 12/25/20 04:00 12/25/20 18:45 Labs: Abnormal Lab Results - Last 24 Hours (Table) 12/24/20 12/25/20 12/25/20 Range/Units 23:30 00:35 04:00 RBC (4.30-5.90) m/uL Hgb (13.0-17.5) gm/dL Hct (39.0-53.0) % MCV (80.0-100.0) fL MCH (25.0-35.0) pg RDW (11.5-15.5) % Neutrophils # (1.3-7.7) k/uL Lymphocytes # (1.0-4.8) k/uL ABG pH (7.35-7.45) ABG pCO2 (35-45) mmHg ABG pO2 (83-108) mmHg ABG HCO3 (21-25) mmol/L ABG Total CO2 (19-24) mmol/L ABG O2 Saturation (94-97) % Chloride 123 H (98-107) mmol/L Carbon Dioxide 16 L (22-30) mmol/L BUN 36 H (9-20) mg/dL Glucose 138 H (74-99) mg/dL POC Glucose (mg/dL) 135 H (75-99) mg/dL Calcium 6.8 L (8.4-10.2) mg/dL Magnesium 1.4 L (1.6-2.3) mg/dL 12/25/20 12/25/20 12/25/20 Range/Units 04:00 05:16 06:15 RBC 3.53 L (4.30-5.90) m/uL Hgb 8.6 L (13.0-17.5) gm/dL Hct 27.6 L (39.0-53.0) % MCV 78.2 L (80.0-100.0) fL MCH 24.4 L (25.0-35.0) pg RDW 24.5 H (11.5-15.5) % Neutrophils # 8.8 H (1.3-7.7) k/uL Lymphocytes # 0.8 L (1.0-4.8) k/uL ABG pH 7.46 H (7.35-7.45) ABG pCO2 23 L (35-45) mmHg ABG pO2 141 H (83-108) mmHg ABG HCO3 16 L (21-25) mmol/L ABG Total CO2 17 L (19-24) mmol/L ABG O2 Saturation 99.8 H (94-97) % Chloride (98-107) mmol/L Carbon Dioxide (22-30) mmol/L BUN (9-20) mg/dL Glucose (74-99) mg/dL POC Glucose (mg/dL) 130 H (75-99) mg/dL Calcium (8.4-10.2) mg/dL Magnesium (1.6-2.3) mg/dL 12/25/20 12/25/20 Range/Units 11:43 18:27 RBC (4.30-5.90) m/uL Hgb (13.0-17.5) gm/dL Hct (39.0-53.0) % MCV (80.0-100.0) fL MCH (25.0-35.0) pg RDW (11.5-15.5) % Neutrophils # (1.3-7.7) k/uL Lymphocytes # (1.0-4.8) k/uL ABG pH (7.35-7.45) ABG pCO2 (35-45) mmHg ABG pO2 (83-108) mmHg ABG HCO3 (21-25) mmol/L ABG Total CO2 (19-24) mmol/L ABG O2 Saturation (94-97) % Chloride (98-107) mmol/L Carbon Dioxide (22-30) mmol/L BUN (9-20) mg/dL Glucose (74-99) mg/dL POC Glucose (mg/dL) 124 H 151 H (75-99) mg/dL Calcium (8.4-10.2) mg/dL Magnesium (1.6-2.3) mg/dL Microbiology - Last 24 Hours (Table) 12/22/20 11:20 Blood Culture - Preliminary Blood No Growth after 72 hours 12/22/20 11:30 Blood Culture - Preliminary Blood No Growth after 72 hours 12/22/20 13:11 Gram Stain - Final Sputum Sputum Culture - Final Klebsiella pneumoniae Enterobacter cloacae Assessment and Plan Plan: Continue with current management, IV antibiotics, cortef, lasix. Cardiology and Pulmonology following. Follow cultures and labs
--- NOTE | 2020-12-25 23:30 | PN ---
PROGRESS NOTE DATE OF SERVICE: 12/25/2020 REASON FOR FOLLOWUP: Gram-negative aspiration pneumonia. INTERVAL HISTORY: The patient is currently afebrile. The patient is hemodynamically stable. FiO2 is currently 25%. No significant purulent secretions through the ET or diarrhea or any other changes reported by the nursing staff. PHYSICAL EXAMINATION: Blood pressure 117/71, pulse of 98, temperature 98.2. He is 96% on 25% FiO2. General description is an elderly male lying in bed in no distress. RESPIRATORY SYSTEM: Unlabored breathing with decreased breath sounds at the base. No wheeze. HEART: S1, S2. Regular rate and rhythm. ABDOMEN: Soft. No tenderness. LABS: Hemoglobin 8.6, white count 10.0. BUN of 36, creatinine 1.15. DIAGNOSTIC IMPRESSION AND PLAN: Patient with Gram-negative aspiration pneumonia. Sputum has klebsiella and enterobacter. Patient is covered with Zosyn while monitoring his clinical course closely. Continue supportive care. MMODL / CAMILLEN: [id number] /
[2020-12-25 23:47] LABS: Glucose,Whole Blood 84 mg/dL (75-99)
[2020-12-26] MEDS: IPRATROPIUM-ALBUTEROL 3 ML NEB INHALATION SCH ×6 (04:01→23:26)
[2020-12-26] MEDS ORDERED: ADENOSINE 3 MG/ML 2 ML VIAL IVP ONE ×6 (04:37→20:49)
[2020-12-26 04:41] LABS: Anisocytosis Marked; Basophils % (A) 0 %; Eosinophils # (A) 0.1 k/uL (0-0.7); Eosinophils % (A) 1 %; HCT 30.2 % (39.0-53.0); HGB 9.5 gm/dL (13.0-17.5); Hypochromasia Slight; Lymphocytes # (A) 2.5 k/uL (1.0-4.8); Lymphocytes % (A) 24 %; MCH 24.1 pg (25.0-35.0); MCHC 31.4 g/dL (31.0-37.0); MCV 76.5 fL (80.0-100.0); Mean Platelet Volume 9.2; Microcytosis Marked; Monocytes # (A) 0.2 k/uL (0-1.0); Monocytes % (A) 2 %; Neutrophils # (A) 7.2 k/uL (1.3-7.7); Neutrophils % (A) 71 %; Platelet Count 184 k/uL (150-450); Poikilocytosis Slight; RBC 3.95 m/uL (4.30-5.90); RDW 24.6 % (11.5-15.5); WBC 10.1 k/uL (3.8-10.6)
[2020-12-26 04:52] LABS: African American GFR (CKD) >90 (>60 ml/min/1.73 sqM); Anion Gap 7 mmol/L; Blood Urea Nitrogen 29 mg/dL (9-20); Calcium 7.4 mg/dL (8.4-10.2); Carbon Dioxide 20 mmol/L (22-30); Chloride 117 mmol/L (98-107); Glucose 85 mg/dL (74-99); Magnesium 1.8 mg/dL (1.6-2.3); Non-African American GFR(CKD) 85 (>60 ml/min/1.73 sqM); Potassium 3.5 mmol/L (3.5-5.1); Sodium 144 mmol/L (137-145)
[2020-12-26] MEDS: VERAPAMIL 40 MG TAB PO SCH ×3 (05:15→17:39)
[2020-12-26] MEDS: POTASSIUM CHLORIDE 20 MEQ in WATER FOR INJECTION 1 100ML.BAG IVPB SCH ×4 (05:16→22:48)
[2020-12-26] MEDS: MAGNESIUM SULFATE-D5W PMX 1 GM in DEXTROSE/WATER 1 100ML.BAG IVPB SCH ×2 (05:16→06:18)
[2020-12-26 05:32] LABS: ABG HCO3 20 mmol/L (21-25); ABG Oxygen Saturation 94.8 % (94-97); ABG PCO2 25 mmHg (35-45); ABG PH 7.52 (7.35-7.45); ABG PO2 66 mmHg (83-108); ABG TCO2 21 mmol/L (19-24); Allen Test Performed? Yes
[2020-12-26 05:49] LABS: Glucose,Whole Blood 69 mg/dL (75-99)
[2020-12-26] MEDS ORDERED: DEXTROSE 50% SYRINGE 50 ML IVP ONE (05:51)
[2020-12-26] MEDS: INSULIN ASPART (NovoLOG) 100 UNIT/ML VIAL SQ SCH ×3 (05:53→18:20)
[2020-12-26 06:25] LABS: Glucose,Whole Blood 100 mg/dL (75-99)
[2020-12-26] MEDS ORDERED: FUROSEMIDE 10 MG/ML 10 ML VIAL IV STA (08:22)
--- NOTE | 2020-12-26 09:21 | PN ---
PROGRESS NOTE Mr. Sanabria had an episode of paroxysmal SVT early this morning. Verapamil 40 t.i.d. was started. Now he is in sinus rhythm or sinus tachycardia. He has a lot of respiratory failure issues, but cardiac-major arrhythmia is the only issue. I am recommending that we increase metoprolol from 50 mg daily to b.i.d. continue verapamil 40 t.i.d. PHYSICAL EXAMINATION: Vitals are stable. S1, S2 heard normally. Patient remains on a ventilator. S1, S2 heard normally, short systolic murmur at the base. Lungs reveal bilateral ventilator assisted breaths sounds. Rest of physical exam unchanged. IMPRESSION: 1. Paroxysmal supraventricular tachycardia. 2. Coronary artery disease with prior PCI of RCA. 3. Respiratory failure with multiple comorbid conditions. RECOMMENDATIONS: I am recommending metoprolol tartrate 50 mg to be increased b.i.d. Continue verapamil. Prognosis remains guarded. MMODL / IJN: [id number] /
[2020-12-26] MEDS: PIPERACILLIN-TAZOBACTAM 3.375 GM in SODIUM CHLORIDE 0.9% 100 ML IVPB SCH ×2 (09:31→17:32)
[2020-12-26] MEDS: CHLORHEXIDINE GLUCONATE 15 ML CUP MUCOUS MEM SCH ×2 (09:33→19:51)
[2020-12-26] MEDS: METOPROLOL TARTRATE 50 MG TAB PO SCH ×2 (09:33→19:51)
[2020-12-26] MEDS: PANTOPRAZOLE 40 MG/10 ML VIAL IV SCH (09:33)
[2020-12-26] MEDS: HYDROCORTISONE SUCCINATE 100 MG/2 ML VIAL IV SCH (09:33)
[2020-12-26] MEDS: SODIUM BICARBONATE TAB 650 MG TAB PO SCH ×3 (09:34→21:31)
--- NOTE | 2020-12-26 09:38 | P.PN ---
Subjective Progress Note Date: 12/26/20 Principal diagnosis: Acute hypoxic respiratory failure, septic shock 75-year-old white male patient is well-known to our service from his previous admissions for complications related to episodes of sepsis. Patient has extensive medical history including history of COPD, diabetes mellitus type 2, hyperlipidemia, previous history of DVT and pulmonary embolism, patient is on Xa relto, coronary artery disease with previous stenting, anemia of chronic disease, bacteremia most recently related to MSSA, left lower extremity [id number]-[id number]-[id number] amputation related to septic arthritis of the left knee. he was brought into the emergency department per EMS on 12/22/2020 for evaluation of severe respiratory distress. On a to the hospital patient required CPAP support and bagging with DVM. His venous blood gas showed pH of 7.2 and pCO2 of 44, acute kidney injury with BUN of 46 and creatinine of 5.48, severe lactic acidosis with lactic acid of 7.9, related to suspected sepsis. Patient has had low-grade fever since admission. His had low blood pressures in the emergency department with a blood pressure 61/39, he was given 2 L fluid bolus in the emergency department, his lactic acid is still elevated but improving, in view of his significant metabolic acidosis and respiratory distress he was intubated and placed on mechanical ventilator. He has been started on Maxipime and vancomycin. His chest x-ray shows mild cardiomegaly and low lung volumes with moderate to advanced chronic parenchymal fibrotic changes bilaterally. No new acute infiltrates. COVID 19 PCR was negative. Blood cultures have been sent, urinalysis is possibility of urinary tract infection, we'll send a urine culture, sputum culture will also be sent. Patient had a mild troponin elevation of 0.087, and proBNP was 2150. He was seen in the ICU, remains hypotensive, he continues on IV fluids however his vasopressor requirements are minimal with the levo fed infusing at 3.6 mics per minute, he is on Diprivan at 10 mics per kilo per minute, and 0.9 normal saline 130 ML per hour. Patient was reevaluated today on 12/23/2020, patient was admitted yesterday with acute hypoxic Failure and Septic Shock, He Was Intubated Initially in the Emergency Room. Arrived to the ICU on Norepinephrine and Had to Place a Central Line and Arterial Line in the Patient upon Arrival to the ICU. Patient Is on Assist Control Rate of 18 Tidal Volume Is 400 FiO2 Is 35% PEEP Is 5. ABG Today Showed a PO2 of 132 PCO2 of 35 pH of 7.34. Patient Is on Propofol at 10 Mcg/Kg/M, He Is Now on Minimal Dose of Norepinephrine at 0.01 Mcg/Kg/M, Received Significant Amount of Fluid Boluses and Left Fluids Overnight. Remains on Vancomycin and Cefepime Empirically. He Also Received Solu-Cortef Yesterday Because of His Profound Hypotension, Today I Cut down His Cortef to 50 Mg IV Push Every 12 Hours. His Sputum Is Showing Gram-Negative Bacilli. Final Culture Is Pending. History of Functioning Is Improving BUN Is Improving Creatinine Is down to 2.30 from 5.48. Patient Continues to Have Significant Areas of Cellulitis Involving the Right Lower Extremity. And He Has a Left Above-Knee Amputation. Chest X-Ray Continues to Show by Basilar Opacities and Small Tiny Left Pleural Effusion. Patient was reevaluated today on 12/24/2020, patient remains in the ICU, intubated and mechanically ventilated. Ventilator settings are assist control rate of 18 tidal volume is 400 FiO2 is 35%, PEEP is 5. ABG today showed a pO2 of 152 pCO2 of 25 pH of 7.38, bicarb is noted to be low, hence the patient was started on sodium bicarb orally at 650 mEq equivalent 3 times a day. Patient remains on propofol at 25 mcg/kg/m, IV fluids remains at 13 0 mL/h, he is off norepinephrine. Patient remains on cefepime and vancomycin, he is also on Xarelto, today oral bicarb was added. Urine output is still marginal today, creatinine is improving down to 1.41, hence I recommended fluid boluses to be given and if no improvement with fluid boluses, patient will receive Lasix challenge. Patient is on enteral feeding, not To goal. CBC is relatively normal however hemoglobin is 8.4, electrolytes are normal bicarb is 15 BUN is 38 creatinine is 1.41. Patient has a bit of hyperchloremic metabolic acidosis. Sputum Gram stain is showing gram-negative bacilli, final culture is pending, in the meantime the patient again is on vancomycin and cefepime. Chest x-ray continued to show minimal bibasilar opacities. On 12/25/2020 patient seen in follow-up in intensive care unit. Patient is sedated, intubated, on assist control mode of ventilation, with a rate of 18, tidal volumes 400, FiO2 35% and PEEP of 5, displaced blood gases showed pO2 of 141, pCO2 of 23, and pH of 7.46, patient's IV fluids including 0.9 normal saline at a rate of 1:30 ML per hour, Diprivan is a 50 mics per kilo per minute, levo fed has been weaned off since early this morning, and patient is receiving tube feedings in the form of vital high-protein at 35 with a goal of 35 with standard water flushes at 30 mg every 4 hours. Yesterday patient was given a daily interruption of sedation, in apparently before the different and was even completely weaned off and he became quite tachycardic, tachypneic, agitated, however did not follow commands. His chest x-ray shows pulmonary vascular congestion, increasing small left pleural effusion with adjacent atelectasis and/or consolidation. She has received significant amount of IV fluids for septic shock, he is up 4 kg in the last 48 hours. Yesterday he was given a dose of IV Lasix, and he has produced 1.5 L in urine output, we'll give the patient another dose of IV Lasix today, remains on hydrocortisone currently at 50 mg daily. He is on IV antibiotics in the form of Zosyn, his sputum cultures showed 2 gram-negative bacilli organisms, final culture is pending, blood and urine cultures have shown no growth, he has had no fever since admission. On 12/26/2020 patient seen in follow-up in intensive care unit, yesterday he was given a daily interruption of sedation and patient failed that. he was given a spontaneous breathing trial and he failed that as well. She was placed back on assist control mode of ventilation, and recently sedated. This morning she is on assist-control mode of ventilation with a rate of 18 however his spontaneous rate is 32 breaths per minute, tacrolimus 400, FiO2 of 25% and PEEP 5. This morning's blood gases show pO2 of 66, pCO2 25 and pH of 7.2 consistent with primary respiratory alkalosis and acute hypoxic respiratory failure. Today's chest x-ray has been reviewed. His chest x-ray has been reviewed showing bilateral infiltrates, and left pleural effusion has improved. Patient did receive 60 mg of Lasix yesterday and has produced over 3 L in urine output overnight. Still has mild generalized edema. We'll consider another dose of IV Lasix today, patient is currently in sinus mechanism, slightly tachycardic with a rate of 109 BPM, overnight however he had an episode of SVT for which she was given adenosine, he was started on verapamil and metoprolol dose was is being adjusted by cardiology. Today's lab And reviewed, showing white blood cell count of 10.1, hemoglobin of 9.5, sodium 144, potassium is 3.5, chloride is 117, CO2 is 20, BUN is 29 creatinine 0.89. Patient remains on Zosyn and the sputum culture showed Klebsiella pneumonia, and Enterobacter Cloacae. Blood cultures have been negative. Urine culture showed no growth. IV fluids include 0.9 normal saline at a rate of 20, and depending is at 60 mics per kilo per minute, in addition patient is receiving when necessary Dilaudid for pain. Abdomen is soft, patient is receiving vital high-protein at a rate of 10 ML per hour, he had high residuals overnight and his tube feeding rate was cut back. Yesterday his family was updated by the nursing staff on patient's condition, they would like to keep the patient a full code right now. Objective - Vital Signs Vital signs: Vital Signs Temp 98.2 F 12/26/20 08:00 Pulse 109 H 12/26/20 08:00 Resp 37 H 12/26/20 08:00 BP 114/77 12/26/20 06:00 Pulse Ox 98 12/26/20 08:00 Intake & Output 12/25/20 12/26/20 12/26/20 18:59 06:59 18:59 Intake Total 1646.665 864.55 312.85 Output Total 2250 790 95 Balance -603.335 74.55 217.85 Intake: IV 912 412 52 Piperacillin-Tazobactam 3 50 100 .375 gm In Sodium Chloride 0.9% 100 ml @ 25 mls/hr IVPB Q8HR SURYA Rx# :[id number] Sodium Chloride 0.9% 1, 790 240 40 000 ml @ 75 mls/hr IV . [id number] SURYA Rx#:[id number] pressure bag 72 72 12 Intake, IV Titration 264.665 442.55 210.85 Amount Magnesium Sulfate-D5w Pmx 100 100 1 gm In Dextrose/Water 1 100ml.bag @ 100 mls/hr IVPB Q1H SURYA Rx#: [id number] Potassium Chloride 20 meq 100 100 In Water For Injection 1 100ml.bag @ 50 mls/hr IVPB Q2H SURYA Rx#: [id number] propofoL 1,000 mg In 264.665 242.55 10.85 Empty Bag 1 bag @ Titrate IV .Q0M SURYA Rx#: [id number] Tube Feeding 380 10 20 Other 90 30 Output: Urine 2250 790 95 Other: Voiding Method Indwelling Catheter Indwelling Catheter # Bowel Movements 1 ABP, PAP, CO, CI - Last Documented Arterial Blood Pressure 121/70 - Exam GENERAL EXAM: Intubated, sedated, comfortable in no apparent distress. HEAD: Normocephalic/atraumatic. EYES: Normal reaction of pupils, PERRLA, Conjunctiva pink, sclera white. NOSE: Clear with pink turbinates. THROAT: No erythema or exudates. NECK: No masses, no JVD, no thyroid enlargement, no adenopathy. CHEST: No chest wall deformity. Symmetrical expansion. LUNGS: Equal air entry with no crackles, wheeze, rhonchi or dullness. CVS: Regular rate and rhythm, normal S1 and S2, no gallops, no murmurs, no rubs ABDOMEN: Soft, nontender. No hepatosplenomegaly, normal bowel sounds, no guarding or rigidity. EXTREMITIES: No clubbing, no edema, no cyanosis, 2+ pulses and upper and lower extremities. MUSCULOSKELETAL: Muscle strength and tone normal. Left qgzhi-fln-bjfd amputee SPINE: No scoliosis or deformity SKIN: No rashes. Small scab present on right foot CENTRAL NERVOUS SYSTEM: Sedated, intubated No focal deficits, tone is normal in all 4 extremities. - Labs CBC & Chem 7: 12/26/20 04:15 12/26/20 04:15 Labs: Abnormal Lab Results - Last 24 Hours (Table) 12/25/20 12/25/20 12/26/20 Range/Units 11:43 18:27 04:15 RBC (4.30-5.90) m/uL Hgb (13.0-17.5) gm/dL Hct (39.0-53.0) % MCV (80.0-100.0) fL MCH (25.0-35.0) pg RDW (11.5-15.5) % ABG pH (7.35-7.45) ABG pCO2 (35-45) mmHg ABG pO2 (83-108) mmHg ABG HCO3 (21-25) mmol/L Chloride 117 H (98-107) mmol/L Carbon Dioxide 20 L (22-30) mmol/L BUN 29 H (9-20) mg/dL POC Glucose (mg/dL) 124 H 151 H (75-99) mg/dL Calcium 7.4 L (8.4-10.2) mg/dL 12/26/20 12/26/20 12/26/20 Range/Units 04:15 05:28 05:48 RBC 3.95 L (4.30-5.90) m/uL Hgb 9.5 L (13.0-17.5) gm/dL Hct 30.2 L (39.0-53.0) % MCV 76.5 L (80.0-100.0) fL MCH 24.1 L (25.0-35.0) pg RDW 24.6 H (11.5-15.5) % ABG pH 7.52 H (7.35-7.45) ABG pCO2 25 L (35-45) mmHg ABG pO2 66 L (83-108) mmHg ABG HCO3 20 L (21-25) mmol/L Chloride (98-107) mmol/L Carbon Dioxide (22-30) mmol/L BUN (9-20) mg/dL POC Glucose (mg/dL) 69 L (75-99) mg/dL Calcium (8.4-10.2) mg/dL 12/26/20 Range/Units 06:23 RBC (4.30-5.90) m/uL Hgb (13.0-17.5) gm/dL Hct (39.0-53.0) % MCV (80.0-100.0) fL MCH (25.0-35.0) pg RDW (11.5-15.5) % ABG pH (7.35-7.45) ABG pCO2 (35-45) mmHg ABG pO2 (83-108) mmHg ABG HCO3 (21-25) mmol/L Chloride (98-107) mmol/L Carbon Dioxide (22-30) mmol/L BUN (9-20) mg/dL POC Glucose (mg/dL) 100 H (75-99) mg/dL Calcium (8.4-10.2) mg/dL Microbiology - Last 24 Hours (Table) 12/22/20 11:20 Blood Culture - Preliminary Blood No Growth after 72 hours 12/22/20 11:30 Blood Culture - Preliminary Blood No Growth after 72 hours 12/22/20 13:11 Gram Stain - Final Sputum Sputum Culture - Final Klebsiella pneumoniae Enterobacter cloacae Assessment and Plan Plan: Assessment: #1. Acute hypoxic respiratory failure related to septic shock possibly related to acute urinary tract infection and gram-negative pneumonia, related to Klebsiella pneumoniae and Enterobacter cloacae requiring intubation and placement on mechanical ventilator on 12/22/2020, COVID 19 PCR was negative #2. Acute urinary tract infection, urine culture has shown no growth #3. Recent history of MSSA bacteremia in October 2020 #4. Previous history of recurrent sepsis and previous bacteremia #5. History of left knee septic arthritis status post left ksycb-ook-gjia amputation #6. DM II #7. History of COPD #8. History of PE and DVT, on Xarelto #9. History of coronary artery disease with previous stent placement #10. Former nicotine dependence #11. Anxiety/depression #12. Chronic back pain with history of multiple compression fractures in his thoracic and lumbar spine at T12-L1, L3-L4 #13. Stage II on sacrum, present on admission #14. Acute kidney injury secondary to sepsis and acute tubular necrosis with septic shock, resolved #15. Acute lactic acidosis related to sepsis and septic shock, improved #16. Acute encephalopathy, likely toxic metabolic #17. Episode of SVT on 12/25/2020 requiring adenosine, she is currently in sinus mechanism Plan: We'll give patient a dose of Lasix 60 mg 1, today's chest x-ray has been reviewed showing improved aeration of the left base. Hemodynamically patient is stable, his been off vasopressor support for greater than 24 hours, did have a brief episode of SVT last night, was treated by cardiology, currently back in sinus mechanism, he is afebrile, antibiotics per ID service recommendations, pat ient is currently covered with Zosyn. We'll proceed with daily traction of sedation. Was discussed with the patient's family yesterday, and in view of his general medical debility, multiple comorbidities, advanced COPD, and failure of daily traction of sedation yesterday, we will proceed with an early trach and PEG. Consult Dr. Serrano for placement of tracheostomy and tube. Patient remains a full code, overall prognosis extremely guarded. I performed a history & physical examination of the patient and discussed their management with my nurse practitioner, Yoselin Wiggins. I reviewed the nurse practitioner's note and agree with the documented findings and plan of care. Lung sounds are positive for diminished breath sounds. The findings and the impression was discussed with the patient. I attest to the documentation by the nurse practitioner. Time with Patient: Greater than 30
--- NOTE | 2020-12-26 10:33 | XR ---
EXAMINATION TYPE: XR chest 1V portable DATE OF EXAM: 12/26/2020 COMPARISON: 12/25/2020 INDICATION: Intubated difficulty breathing TECHNIQUE: Single frontal view of the chest is obtained. FINDINGS: The heart size is normal. The pulmonary vasculature is normal. Minimal infiltrates the right lung base. Mild infiltrates in the left lower lung field. This is impro miriam from comparison. Endotracheal tube tip is above the tiffany. Nasogastric tube tip is within the left upper quadrant of the abdomen. IMPRESSION: 1. Improving bibasilar infiltrates. 2. Lines and catheters discussed above.
[2020-12-26] MEDS: NOREPINEPHRINE 4 MG in SODIUM CHLORIDE 0.9% 250 ML IV SCH (10:36)
[2020-12-26 11:21] LABS: Glucose,Whole Blood 93 mg/dL (75-99)
[2020-12-26] MEDS: SODIUM CHLORIDE 0.9% 1,000 ML IV SCH (13:42)
--- NOTE | 2020-12-26 14:33 | P.GSCN ---
History of Present Illness Consult date: 12/26/20 History of present illness: CHIEF COMPLAINT: Shortness of breath HISTORY OF PRESENT ILLNESS: This is a 75-year-old male with a known history of COPD, diabetes mellitus type 2, hyperlipidemia, previous history of DVT and pulmonary embolism anticoagulated with Xarelto, coronary artery disease with previous stenting. History of left oilug-mfv-nvhe amputation related to septic arthritis of the left knee. Patient presented to hospitals shortness of breath and respiratory failure with sepsis secondary to UTI. Patient required to be intubated on 12/22/2020. Patient has been difficult to wean off of the vent. Therefore surgical service has been consulted for trach and PEG tube placement. PAST MEDICAL HISTORY: See list. PAST SURGICAL HISTORY: See list. MEDICATIONS: See list. ALLERGIES: See list. SOCIAL HISTORY: No illicit drug use. REVIEW OF SYSTEMS: CONSTITUTIONAL: Denies fever or chills. HEENT: Denies blurred vision, vision changes, or eye pain. Denies hemoptysis CARDIOVASCULAR: Denies chest pain or pressure. RESPIRATORY: No shortness of breath. GASTROINTESTINAL: See HPI for pertinent findings HEMATOLOGIC: Denies bleeding disorders. GENITOURINARY: Denies any blood in urine or increased urinary frequency. SKIN: Denies pruitis. Denies rash. PHYSICAL EXAM: VITAL SIGNS: Reviewed GENERAL: Well-developed in no acute distress. HEENT: No sclera icterus. Extraocular movements grossly intact. Moist buccal mucosa. Head is atraumatic, normocephalic. No nasal drainage. ABDOMEN: Soft. Nondistended. Nontender NEUROLOGIC: Intubated and sedated LABORATORY DATA: WBC 10.1 Hgb 9.5 platelets 184 Sodium 144 potassium is 3.5 BUN 29 creatinine 0.89 Magnesium 1.8 Albumin 2.1 IMAGING: ASSESSMENT: 1. Acute hypoxic respiratory failure 2. Severe protein calorie malnutrition PLAN: -Patient is scheduled for tracheostomy and PEG tube placement tomorrow, 12/27/[address] Serrano -Xarelto has been discontinued for procedure tomorrow Thank you for this consultation Physician Boiler Service Technician note has been reviewed by physician. Signing provider agrees with the documented findings, assessment, and plan of care. Past Medical History Past Medical History: Coronary Artery Disease (CAD), COPD, Deep Vein Thrombosis (DVT), Hyperlipidemia, Musculoskeletal Disorder, Pneumonia, Pulmonary Embolus (P E), Rheumatoid Arthritis (RA), Vascular Disorder Additional Past Medical History / Comment(s): History of pancreatitis, 2012 past medical record documents viral pericarditis but pt denies, gastritis, Fluid build up rt lung - previous chest tube - pt unsure what it is from, BOTTOM TEETH REMOVED 09-01-18, wounds in his right lower extremity, left ruuxn-rqv-rnql stump and left elbow. History of multiple compression fractures his thoracic and lumbar spine particularly at T12-L1 and L3 and L4. 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 right ankle sx, thoracentesis, chest tube rt lung, LT above the knee amputation Past Anesthesia/Blood Transfusion Reactions: No Reported Reaction Additional Past Anesthesia/Blood Transfusion Reaction / Comm: Pt states he has never recieved blood. Date of Last Stent Placement:: 12/10/16 Past Psychological History: Anxiety, Depression Smoking Status: Former smoker Past Alcohol Use History: None Reported Past Drug Use History: None Reported - Past Family History Sister(s) Family Medical History: Cancer Additional Family Medical History / Comment(s): pt's father had ra, mother had 16 children was healthy most of her life age 93 from dementia. Mother Family Medical History: Dementia Additional Family Medical History / Comment(s): Mother from dementia at the age of 93 yrs. Father Family Medical History: Rheumatoid Arthritis (RA) Medications and Allergies Home Medications Medication Instructions Recorded Confirmed Type Gabapentin [Neurontin] 300 mg PO TID #9 cap 02/21/20 12/22/20 Rx predniSONE 10 mg PO TID 07/10/20 12/22/20 History Atorvastatin [Lipitor] 40 mg PO HS #90 tab 07/24/20 12/22/20 Rx Metoprolol Tartrate [Lopressor] 50 mg PO DAILY #90 tab 07/24/20 12/22/20 Rx Pantoprazole [Protonix] 40 mg PO BID #180 tablet. 07/24/20 12/22/20 Rx Rivaroxaban [Xarelto] 20 mg PO AC-SUPPER 10/24/20 12/22/20 History oxyCODONE-APAP 10-325MG [Percocet 1 tab PO QID 10/24/20 12/22/20 History 10-325 mg] Nystatin 100,000 Unit/ml Susp 500,000 unit PO QID ml 11/02/20 12/22/20 Rx [Mycostatin Oral Susp] lisinopriL [Zestril] 10 mg PO DAILY #0 11/03/20 12/22/20 Rx Budesonide [Pulmicort] 0.5 mg INHALATION RT-BID 12/22/20 12/22/20 History Ipratropium-Albuterol Nebulize 3 ml INHALATION RT-QID 12/22/20 12/22/20 History [Duoneb 0.5 mg-3 mg/3 ml Soln] Meclizine [Antivert] 25 mg PO TID PRN 12/22/20 12/22/20 History Morphine Sulfate ER [Ms Contin] 15 mg PO BID 12/22/20 12/22/20 History Allergies Allergy/AdvReac Type Severity Reaction Status Date / Time No Known Allergies Allergy Verified 12/22/20 11:53 Surgical - Exam Vital Signs Temp Pulse Resp BP Pulse Ox 99.3 F 67 24 139/83 90 L 12/22/20 10:59 12/22/20 10:59 12/22/20 10:59 12/22/20 10:59 12/22/20 10:59 Results - Labs 12/26/20 04:15 12/26/20 04:15 Abnormal Lab Results - Last 24 Hours (Table) 12/25/20 12/26/20 12/26/20 Range/Units 18:27 04:15 04:15 RBC 3.95 L (4.30-5.90) m/uL Hgb 9.5 L (13.0-17.5) gm/dL Hct 30.2 L (39.0-53.0) % MCV 76.5 L (80.0-100.0) fL MCH 24.1 L (25.0-35.0) pg RDW 24.6 H (11.5-15.5) % ABG pH (7.35-7.45) ABG pCO2 (35-45) mmHg ABG pO2 (83-108) mmHg ABG HCO3 (21-25) mmol/L Chloride 117 H (98-107) mmol/L Carbon Dioxide 20 L (22-30) mmol/L BUN 29 H (9-20) mg/dL POC Glucose (mg/dL) 151 H (75-99) mg/dL Calcium 7.4 L (8.4-10.2) mg/dL 12/26/20 12/26/20 12/26/20 Range/Units 05:28 05:48 06:23 RBC (4.30-5.90) m/uL Hgb (13.0-17.5) gm/dL Hct (39.0-53.0) % MCV (80.0-100.0) fL MCH (25.0-35.0) pg RDW (11.5-15.5) % ABG pH 7.52 H (7.35-7.45) ABG pCO2 25 L (35-45) mmHg ABG pO2 66 L (83-108) mmHg ABG HCO3 20 L (21-25) mmol/L Chloride (98-107) mmol/L Carbon Dioxide (22-30) mmol/L BUN (9-20) mg/dL POC Glucose (mg/dL) 69 L 100 H (75-99) mg/dL Calcium (8.4-10.2) mg/dL Microbiology - Last 24 Hours (Table) 12/22/20 11:30 Blood Culture - Preliminary Blood No Growth after 96 hours 12/22/20 11:20 Blood Culture - Preliminary Blood No Growth after 96 hours Diabetes panel 12/25/20 12/25/20 12/26/20 Range/Units 14:25 18:45 04:15 Sodium 144 (137-145) mmol/L Potassium 3.5 4.1 3.5 (3.5-5.1) mmol/L Chloride 117 H (98-107) mmol/L Carbon Dioxide 20 L (22-30) mmol/L BUN 29 H (9-20) mg/dL Creatinine 0.89 (0.66-1.25) mg/dL Glucose 85 (74-99) mg/dL Calcium 7.4 L (8.4-10.2) mg/dL Calcium panel 12/26/20 Range/Units 04:15 Calcium 7.4 L (8.4-10.2) mg/dL Pituitary panel 12/25/20 12/25/20 12/26/20 Range/Units 14:25 18:45 04:15 Sodium 144 (137-145) mmol/L Potassium 3.5 4.1 3.5 (3.5-5.1) mmol/L Chloride 117 H (98-107) mmol/L Carbon Dioxide 20 L (22-30) mmol/L BUN 29 H (9-20) mg/dL Creatinine 0.89 (0.66-1.25) mg/dL Glucose 85 (74-99) mg/dL Calcium 7.4 L (8.4-10.2) mg/dL Adrenal panel 12/25/20 12/25/20 12/26/20 Range/Units 14:25 18:45 04:15 Sodium 144 (137-145) mmol/L Potassium 3.5 4.1 3.5 (3.5-5.1) mmol/L Chloride 117 H (98-107) mmol/L Carbon Dioxide 20 L (22-30) mmol/L BUN 29 H (9-20) mg/dL Creatinine 0.89 (0.66-1.25) mg/dL Glucose 85 (74-99) mg/dL Calcium 7.4 L (8.4-10.2) mg/dL
--- NOTE | 2020-12-26 16:45 | P.PN ---
Subjective Progress Note Date: 12/26/20 Remains vent dependent, with FiO2 25%/+5 of PEEP. Maintained on Zosyn for aspiration pneumonia. Sputum culture reporting Klebsiella pneumoniae and Enterobacter cloacae. Chest x-ray reporting improving bibasilar infiltrates. Telemetry sinus tach. with poss proximal SVT earlier this morning, beta lisa increased in addition to verapamil. Evaluated by surgery and scheduled for trach and PEG tomorrow. Objective - Vital Signs Vital signs: Vital Signs Temp 98.2 F 12/26/20 08:00 Pulse 112 H 12/26/20 10:00 Resp 28 H 12/26/20 10:00 BP 114/77 12/26/20 06:00 Pulse Ox 98 12/26/20 10:00 Intake & Output 12/25/20 12/26/20 12/26/20 18:59 06:59 18:59 Intake Total 1646.665 864.55 401.85 Output Total 2250 790 360 Balance -603.335 74.55 41.85 Weight 70 kg Intake: IV 912 412 104 Piperacillin-Tazobactam 3 50 100 .375 gm In Sodium Chloride 0.9% 100 ml @ 25 mls/hr IVPB Q8HR [facility] Rx# :[id number] Sodium Chloride 0.9% 1, 790 240 80 000 ml @ 75 mls/hr IV . [id number] [facility] Rx#:[id number] pressure bag 72 72 24 Intake, IV Titration 264.665 442.55 210.85 Amount Magnesium Sulfate-D5w Pmx 100 100 1 gm In Dextrose/Water 1 100ml.bag @ 100 mls/hr IVPB Q1H [facility] Rx#: [id number] Potassium Chloride 20 meq 100 100 In Water For Injection 1 100ml.bag @ 50 mls/hr IVPB Q2H [facility] Rx#: [id number] propofoL 1,000 mg In 264.665 242.55 10.85 Empty Bag 1 bag @ Titrate IV .Q0M [facility] Rx#: [id number] Tube Feeding 380 10 57 Other 90 30 Output: Urine 2250 790 360 Other: Voiding Method Indwelling Catheter Indwelling Catheter Indwelling Catheter # Bowel Movements 1 ABP, PAP, CO, CI - Last Documented Arterial Blood Pressure 121/72 - Exam - Exam General: Intubated, sedated. Obese. Vitals reviewed Lungs: coarse breath sounds, no wheezes or rales CV: Regular rate and rhythm, systolic murmur. Abdomen: soft, nondistended Skin: warm and dry. Coccyx dressing clean dry and intact, right anterior kc scab. Microbiology 12/22/20 11:30 Blood Blood Culture - Preliminary No Growth after 96 hours 12/22/20 11:20 Blood Blood Culture - Preliminary No Growth after 96 hours 12/22/20 13:11 Sputum Gram Stain - Final 12/22/20 13:11 Sputum Sputum Culture - Final Klebsiella pneumoniae Enterobacter cloacae 12/22/20 16:57 Urine,Catheterized Urine Culture - Final - Labs CBC & Chem 7: 12/26/20 04:15 12/26/20 04:15 Labs: Abnormal Lab Results - Last 24 Hours (Table) 12/25/20 12/25/20 12/26/20 Range/Units 11:43 18:27 04:15 RBC (4.30-5.90) m/uL Hgb (13.0-17.5) gm/dL Hct (39.0-53.0) % MCV (80.0-100.0) fL MCH (25.0-35.0) pg RDW (11.5-15.5) % ABG pH (7.35-7.45) ABG pCO2 (35-45) mmHg ABG pO2 (83-108) mmHg ABG HCO3 (21-25) mmol/L Chloride 117 H (98-107) mmol/L Carbon Dioxide 20 L (22-30) mmol/L BUN 29 H (9-20) mg/dL POC Glucose (mg/dL) 124 H 151 H (75-99) mg/dL Calcium 7.4 L (8.4-10.2) mg/dL 12/26/20 12/26/20 12/26/20 Range/Units 04:15 05:28 05:48 RBC 3.95 L (4.30-5.90) m/uL Hgb 9.5 L (13.0-17.5) gm/dL Hct 30.2 L (39.0-53.0) % MCV 76.5 L (80.0-100.0) fL MCH 24.1 L (25.0-35.0) pg RDW 24.6 H (11.5-15.5) % ABG pH 7.52 H (7.35-7.45) ABG pCO2 25 L (35-45) mmHg ABG pO2 66 L (83-108) mmHg ABG HCO3 20 L (21-25) mmol/L Chloride (98-107) mmol/L Carbon Dioxide (22-30) mmol/L BUN (9-20) mg/dL POC Glucose (mg/dL) 69 L (75-99) mg/dL Calcium (8.4-10.2) mg/dL 12/26/20 Range/Units 06:23 RBC (4.30-5.90) m/uL Hgb (13.0-17.5) gm/dL Hct (39.0-53.0) % MCV (80.0-100.0) fL MCH (25.0-35.0) pg RDW (11.5-15.5) % ABG pH (7.35-7.45) ABG pCO2 (35-45) mmHg ABG pO2 (83-108) mmHg ABG HCO3 (21-25) mmol/L Chloride (98-107) mmol/L Carbon Dioxide (22-30) mmol/L BUN (9-20) mg/dL POC Glucose (mg/dL) 100 H (75-99) mg/dL Calcium (8.4-10.2) mg/dL Microbiology - Last 24 Hours (Table) 12/22/20 11:20 Blood Culture - Preliminary Blood No Growth after 72 hours 12/22/20 11:30 Blood Culture - Preliminary Blood No Growth after 72 hours 12/22/20 13:11 Gram Stain - Final Sputum Sputum Culture - Final Klebsiella pneumoniae Enterobacter cloacae Assessment and Plan Assessment: Acute on chronic hypoxic respiratory failure, mechanical ventilator-dependent, secondary to septic shock related to acute aspiration pneumonia with Klebsiella pneumoniae, Enterobacter Cloacae, possible acute UTI-follow cultures report no growth. 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 Former nicotine dependence Stage II sacrum-coccyx ulcer, present on admission Plan: Continue on current medication regime ,monitoring and symptomatic treatment. Follow closely with multiple consults. Xarelto placed on hold, sc heduled for trach and PEG tomorrow. Prognosis guarded given multiple complex medical issues. The impression and plan of care has been dictated as directed. : I performed a history and examination of this patient, discussed the same with the dictator. I agree with the dictator's note ,documented as a scribe. Any additional findings or plans will be noted.
[2020-12-26] MEDS: RIVAROXABAN 15 MG TAB PO SCH (17:33)
[2020-12-26 18:18] LABS: Glucose,Whole Blood 130 mg/dL (75-99)
--- NOTE | 2020-12-26 18:47 | PN ---
PROGRESS NOTE DATE OF SERVICE: 12/26/2020 REASON FOR FOLLOWUP: Gram-negative pneumonia. INTERVAL HISTORY: The patient is currently afebrile. The patient remains intubated on the vent. The patient is hemodynamically stable. FiO2 is currently at 25%. No significant purulent secretion through the ET or any diarrhea reported by nursing staff. PHYSICAL EXAMINATION: Blood pressure 101/59, pulse 80, temperature 97.9. He is 95% on 25% FiO2. General description is an elderly male lying in bed in no distress. RESPIRATORY SYSTEM: Unlabored breathing with decreased breath sounds at the base. No wheeze. HEART: S1, S2. Regular rate and rhythm. ABDOMEN: Soft. No tenderness. LABS: Hemoglobin is 9.4, white count 10.1. BUN of 29, creatinine 0.89. Sputum has been klebsiella and enterobacter. DIAGNOSTIC IMPRESSION AND PLAN: Patient with acute respiratory failure, multifactorial, in this patient who did have a component of aspiration pneumonia. The patient is currently covered with Zosyn; to continue while monitoring his clinical course closely. Continue with supportive care. MMODL / IJN: [id number] /
[2020-12-26 20:02] LABS: African American GFR (CKD) >90 (>60 ml/min/1.73 sqM); Anion Gap 7 mmol/L; Blood Urea Nitrogen 26 mg/dL (9-20); Calcium 7.4 mg/dL (8.4-10.2); Carbon Dioxide 20 mmol/L (22-30); Chloride 116 mmol/L (98-107); Glucose 147 mg/dL (74-99); Non-African American GFR(CKD) 86 (>60 ml/min/1.73 sqM); Potassium 3.3 mmol/L (3.5-5.1); Sodium 143 mmol/L (137-145)
[2020-12-26] MEDS ORDERED: Potassium Replacement Protocol 1 EACH MISC MISCELLANE PRN (20:25)
[2020-12-26] MEDS ORDERED: DEXTROSE 5% IN WATER 100 ML with AMIODARONE 150 MG IV ONE (21:00)
[2020-12-26] MEDS ORDERED: AMIODARONE 360 MG in DEXTROSE 5% IN WATER 200 ML IV ONE ×2 (21:10)
[2020-12-26] MEDS ORDERED: POTASSIUM CHLORIDE 20 MEQ in WATER FOR INJECTION 1 100ML.BAG IVPB STA (22:59)
[2020-12-27 00:15] LABS: Glucose,Whole Blood 140 mg/dL (75-99)
[2020-12-27] MEDS: INSULIN ASPART (NovoLOG) 100 UNIT/ML VIAL SQ SCH ×4 (00:21→17:19)
[2020-12-27] MEDS: PIPERACILLIN-TAZOBACTAM 3.375 GM in SODIUM CHLORIDE 0.9% 100 ML IVPB SCH ×3 (00:22→16:27)
[2020-12-27] MEDS: AMIODARONE 450 MG in DEXTROSE 5% IN WATER 250 ML IV SCH ×4 (01:30→18:46)
[2020-12-27] MEDS: IPRATROPIUM-ALBUTEROL 3 ML NEB INHALATION SCH ×5 (03:14→20:23)
[2020-12-27 04:35] LABS: ABG HCO3 19 mmol/L (21-25); ABG Oxygen Saturation 93.9 % (94-97); ABG PCO2 27 mmHg (35-45); ABG PH 7.45 (7.35-7.45); ABG PO2 68 mmHg (83-108); ABG TCO2 20 mmol/L (19-24)
[2020-12-27] MEDS: MORPHINE SULFATE 2 MG/ML SYRINGE IV PRN ×2 (04:51→09:40)
[2020-12-27 05:01] LABS: Allen Test Performed? no
[2020-12-27 05:13] LABS: African American GFR (CKD) >90 (>60 ml/min/1.73 sqM); Anion Gap 6 mmol/L; Blood Urea Nitrogen 24 mg/dL (9-20); Calcium 7.4 mg/dL (8.4-10.2); Carbon Dioxide 18 mmol/L (22-30); Chloride 116 mmol/L (98-107); Glucose 133 mg/dL (74-99); Magnesium 1.8 mg/dL (1.6-2.3); Non-African American GFR(CKD) 90 (>60 ml/min/1.73 sqM); Potassium 3.8 mmol/L (3.5-5.1); Sodium 140 mmol/L (137-145)
[2020-12-27 05:27] LABS: Anisocytosis Marked; HCT 29.8 % (39.0-53.0); Hypochromasia Moderate; MCH 23.5 pg (25.0-35.0); MCHC 30.2 g/dL (31.0-37.0); MCV 77.7 fL (80.0-100.0); Mean Platelet Volume 9.8; Microcytosis Marked; Platelet Count 191 k/uL (150-450); RBC 3.83 m/uL (4.30-5.90); RDW 24.5 % (11.5-15.5); WBC 11.8 k/uL (3.8-10.6)
[2020-12-27 05:45] LABS: Glucose,Whole Blood 95 mg/dL (75-99)
[2020-12-27] MEDS ORDERED: POTASSIUM BICARBONATE/CIT AC 20 MEQ TABLET.EFF NG-TUBE SCH (06:00)
[2020-12-27 06:34] LABS: Lymphocytes # (M) 4.01 k/uL (1.0-4.8); Monocytes # (M) 0.24 k/uL (0-1.0); Neutrophils # (M) 7.55 k/uL (1.3-7.7); Neutrophils % (M) 64 %; Nucleated Red Blood Cells 0 /100 WBC (0-0); Total Cells Counted 100
[2020-12-27 06:36] LABS: Anisocytosis (M) Present; Crenated RBC Present; Ovalocytes Present; Poikilocytosis (M) Present; RBC Fragments Present; Tear Drop Cells Present
[2020-12-27] MEDS: MAGNESIUM SULFATE-D5W PMX 1 GM in DEXTROSE/WATER 1 100ML.BAG IVPB SCH ×2 (07:00→08:02)
[2020-12-27] MEDS: NOREPINEPHRINE 4 MG in SODIUM CHLORIDE 0.9% 250 ML IV SCH (07:05)
[2020-12-27] MEDS ORDERED: POTASSIUM BICARBONATE/CIT AC 20 MEQ TABLET.EFF PO ONE (08:00)
[2020-12-27] MEDS: CHLORHEXIDINE GLUCONATE 15 ML CUP MUCOUS MEM SCH ×2 (08:07→20:45)
--- NOTE | 2020-12-27 08:11 | XR ---
EXAMINATION TYPE: XR chest 1V portable DATE OF EXAM: 12/27/2020 COMPARISON: 11/28/2020 INDICATION: Intubated difficulty breathing TECHNIQUE: Single frontal view of the chest is obtained. FINDINGS: The heart size is normal. The pulmonary vasculature is prominent. Bibasilar infiltrates are present. This more focal at the right lung base. There is an endotracheal tube present with tip located above the tiffany. Nasogastric transverse the t horax tip in the upper quadrant of the abdomen. IMPRESSION: 1. Worsening bibasilar infiltrates. Atelectasis and atypical pneumonia should be considered. Early pu lmonary edema could be considered. 2. Prominent pulmonary vascular markings. 3. Lines and catheters discussed above.
[2020-12-27] MEDS: HYDROCORTISONE SUCCINATE 100 MG/2 ML VIAL IV SCH (09:32)
[2020-12-27] MEDS: PANTOPRAZOLE 40 MG/10 ML VIAL IV SCH (09:33)
[2020-12-27] MEDS: SODIUM BICARBONATE TAB 650 MG TAB PO SCH ×3 (09:33→22:10)
[2020-12-27] MEDS: METOPROLOL TARTRATE 50 MG TAB PO SCH ×2 (09:33→20:46)
--- NOTE | 2020-12-27 09:47 | P.PN ---
Subjective Progress Note Date: 12/27/20 Principal diagnosis: Acute hypoxic respiratory failure, septic shock 75-year-old white male patient is well-known to our service from his previous admissions for complications related to episodes of sepsis. Patient has extensive medical history including history of COPD, diabetes mellitus type 2, hyperlipidemia, previous history of DVT and pulmonary embolism, patient is on Xa relto, coronary artery disease with previous stenting, anemia of chronic disease, bacteremia most recently related to MSSA, left lower extremity [id number] amputation related to septic arthritis of the left knee. he was brought into the emergency department per EMS on 12/22/2020 for evaluation of severe respiratory distress. On a to the hospital patient required CPAP support and bagging with DVM. His venous blood gas showed pH of 7.2 and pCO2 of 44, acute kidney injury with BUN of 46 and creatinine of 5.48, severe lactic acidosis with lactic acid of 7.9, related to suspected sepsis. Patient has had low-grade fever since admission. His had low blood pressures in the emergency department with a blood pressure 61/39, he was given 2 L fluid bolus in the emergency department, his lactic acid is still elevated but improving, in view of his significant metabolic acidosis and respiratory distress he was intubated and placed on mechanical ventilator. He has been started on Maxipime and vancomycin. His chest x-ray shows mild cardiomegaly and low lung volumes with moderate to advanced chronic parenchymal fibrotic changes bilaterally. No new acute infiltrates. COVID 19 PCR was negative. Blood cultures have been sent, urinalysis is possibility of urinary tract infection, we'll send a urine culture, sputum culture will also be sent. Patient had a mild troponin elevation of 0.087, and proBNP was 2150. He was seen in the ICU, remains hypotensive, he continues on IV fluids however his vasopressor requirements are minimal with the levo fed infusing at 3.6 mics per minute, he is on Diprivan at 10 mics per kilo per minute, and 0.9 normal saline 130 ML per hour. Patient was reevaluated today on 12/23/2020, patient was admitted yesterday with acute hypoxic Failure and Septic Shock, He Was Intubated Initially in the Emergency Room. Arrived to the ICU on Norepinephrine and Had to Place a Central Line and Arterial Line in the Patient upon Arrival to the ICU. Patient Is on Assist Control Rate of 18 Tidal Volume Is 400 FiO2 Is 35% PEEP Is 5. ABG Today Showed a PO2 of 132 PCO2 of 35 pH of 7.34. Patient Is on Propofol at 10 Mcg/Kg/M, He Is Now on Minimal Dose of Norepinephrine at 0.01 Mcg/Kg/M, Received Significant Amount of Fluid Boluses and Left Fluids Overnight. Remains on Vancomycin and Cefepime Empirically. He Also Received Solu-Cortef Yesterday Because of His Profound Hypotension, Today I Cut down His Cortef to 50 Mg IV Push Every 12 Hours. His Sputum Is Showing Gram-Negative Bacilli. Final Culture Is Pending. History of Functioning Is Improving BUN Is Improving Creatinine Is down to 2.30 from 5.48. Patient Continues to Have Significant Areas of Cellulitis Involving the Right Lower Extremity. And He Has a Left Above-Knee Amputation. Chest X-Ray Continues to Show by Basilar Opacities and Small Tiny Left Pleural Effusion. Patient was reevaluated today on 12/24/2020, patient remains in the ICU, intubated and mechanically ventilated. Ventilator settings are assist control rate of 18 tidal volume is 400 FiO2 is 35%, PEEP is 5. ABG today showed a pO2 of 152 pCO2 of 25 pH of 7.38, bicarb is noted to be low, hence the patient was started on sodium bicarb orally at 650 mEq equivalent 3 times a day. Patient remains on propofol at 25 mcg/kg/m, IV fluids remains at 13 0 mL/h, he is off norepinephrine. Patient remains on cefepime and vancomycin, he is also on Xarelto, today oral bicarb was added. Urine output is still marginal today, creatinine is improving down to 1.41, hence I recommended fluid boluses to be given and if no improvement with fluid boluses, patient will receive Lasix challenge. Patient is on enteral feeding, not To goal. CBC is relatively normal however hemoglobin is 8.4, electrolytes are normal bicarb is 15 BUN is 38 creatinine is 1.41. Patient has a bit of hyperchloremic metabolic acidosis. Sputum Gram stain is showing gram-negative bacilli, final culture is pending, in the meantime the patient again is on vancomycin and cefepime. Chest x-ray continued to show minimal bibasilar opacities. On 12/25/2020 patient seen in follow-up in intensive care unit. Patient is sedated, intubated, on assist control mode of ventilation, with a rate of 18, tidal volumes 400, FiO2 35% and PEEP of 5, displaced blood gases showed pO2 of 141, pCO2 of 23, and pH of 7.46, patient's IV fluids including 0.9 normal saline at a rate of 1:30 ML per hour, Diprivan is a 50 mics per kilo per minute, levo fed has been weaned off since early this morning, and patient is receiving tube feedings in the form of vital high-protein at 35 with a goal of 35 with standard water flushes at 30 mg every 4 hours. Yesterday patient was given a daily interruption of sedation, in apparently before the different and was even completely weaned off and he became quite tachycardic, tachypneic, agitated, however did not follow commands. His chest x-ray shows pulmonary vascular congestion, increasing small left pleural effusion with adjacent atelectasis and/or consolidation. She has received significant amount of IV fluids for septic shock, he is up 4 kg in the last 48 hours. Yesterday he was given a dose of IV Lasix, and he has produced 1.5 L in urine output, we'll give the patient another dose of IV Lasix today, remains on hydrocortisone currently at 50 mg daily. He is on IV antibiotics in the form of Zosyn, his sputum cultures showed 2 gram-negative bacilli organisms, final culture is pending, blood and urine cultures have shown no growth, he has had no fever since admission. On 12/26/2020 patient seen in follow-up in intensive care unit, yesterday he was given a daily interruption of sedation and patient failed that. he was given a spontaneous breathing trial and he failed that as well. She was placed back on assist control mode of ventilation, and recently sedated. This morning she is on assist-control mode of ventilation with a rate of 18 however his spontaneous rate is 32 breaths per minute, tacrolimus 400, FiO2 of 25% and PEEP 5. This morning's blood gases show pO2 of 66, pCO2 25 and pH of 7.2 consistent with primary respiratory alkalosis and acute hypoxic respiratory failure. Today's chest x-ray has been reviewed. His chest x-ray has been reviewed showing bilateral infiltrates, and left pleural effusion has improved. Patient did receive 60 mg of Lasix yesterday and has produced over 3 L in urine output overnight. Still has mild generalized edema. We'll consider another dose of IV Lasix today, patient is currently in sinus mechanism, slightly tachycardic with a rate of 109 BPM, overnight however he had an episode of SVT for which she was given adenosine, he was started on verapamil and metoprolol dose was is being adjusted by cardiology. Today's lab And reviewed, showing white blood cell count of 10.1, hemoglobin of 9.5, sodium 144, potassium is 3.5, chloride is 117, CO2 is 20, BUN is 29 creatinine 0.89. Patient remains on Zosyn and the sputum culture showed Klebsiella pneumonia, and Enterobacter Cloacae. Blood cultures have been negative. Urine culture showed no growth. IV fluids include 0.9 normal saline at a rate of 20, and depending is at 60 mics per kilo per minute, in addition patient is receiving when necessary Dilaudid for pain. Abdomen is soft, patient is receiving vital high-protein at a rate of 10 ML per hour, he had high residuals overnight and his tube feeding rate was cut back. Yesterday his family was updated by the nursing staff on patient's condition, they would like to keep the patient a full code right now. On 12/27/2020 patient seen in follow-up in the intensive care unit, yesterday he failed sedation holiday, patient became agitated, very tachypneic, however was not awake or following commands. Because of respiratory distress he was placed back on sedation, he was not given a spontaneous breathing trial. This might she remains intubated, sedated, he is on assist-control mode of ventilation with a rate of 28, tacrolimus 400, FiO2 of 25%, and PEEP of 5, this morning's blood gas shows pO2 of 68, pCO2 of 27, pH of 7.45, his IV fluid include 0.9 normal saline at 20 ML per hour, Diprivan and is a 60 mics per kilo per minute, and amiodarone is 0.5 mg/m. Today's chest x-ray shows worsening bibasilar infiltrates, possibility of early pulmonary edema could also be considered and there is prominent pulmonary vascular markings. Patient isn't positive fluid balance over the last 24 hours. Yesterday he received a dose of 60 mg of Lasix, he has produced 1.5 L in the urine output, he is generally swollen. He is tolerating tube feedings, he is receiving vital high-protein at 27 with a rate of 27. Antibiotic coverage includes Zosyn. Patient's family has been updated on plan seen with a tracheostomy and PEG tube placement however they declined, and we will reach out to them again today to update the patient's status. Objective - Vital Signs Vital signs: Vital Signs Temp 98.8 F 12/27/20 04:00 Pulse 82 12/27/20 07:07 Resp 39 H 12/27/20 07:00 BP 114/77 12/26/20 21:00 Pulse Ox 97 12/27/20 07:00 Intake & Output 12/26/20 12/27/20 12/27/20 18:59 06:59 18:59 Intake Total 1075.00 1811.11 160.808 Output Total 1103 401 10 Balance -28.00 1410.11 150.808 Weight 73.5 kg 71.6 kg Intake: IV 412 761.95 42.66 Amiodarone 360 mg In 166.65 Dextrose 5% in Water 200 ml @ 1 MG/MIN 33.333 mls/ hr IV .Q6H ONE Rx#: [id number] Amiodarone 450 mg In 83.30 16.66 Dextrose 5% in Water 250 ml @ 0.5 MG/MIN 16.667 mls/hr IV .Q15H [facility] Rx#: [id number] Dextrose 5% in Water 100 100 ml @ 618 mls/hr IV .Q10M ONE with Amiodarone 150 mg Rx#:[id number] Piperacillin-Tazobactam 3 100 100 .375 gm In Sodium Chloride 0.9% 100 ml @ 25 mls/hr IVPB Q8HR [facility] Rx# :[id number] Sodium Chloride 0.9% 1, 240 240 20 000 ml @ 75 mls/hr IV . [id number] [facility] Rx#:[id number] pressure bag 72 72 6 Intake, IV Titration 300.00 635.16 91.148 Amount Magnesium Sulfate-D5w Pmx 100 1 gm In Dextrose/Water 1 100ml.bag @ 100 mls/hr IVPB Q1H [facility] Rx#: [id number] Potassium Chloride 20 meq 100 In Water For Injection 1 100ml.bag @ 50 mls/hr IVPB ONCE [facility] Rx#: [id number] Potassium Chloride 20 meq 100 200 In Water For Injection 1 100ml.bag @ 50 mls/hr IVPB Q2H [facility] Rx#: [id number] propofoL 1,000 mg In 100.00 335.16 91.148 Empty Bag 1 bag @ Titrate IV .Q0M [facility] Rx#: [id number] Tube Feeding 273 324 27 Other 90 90 Output: Urine 1100 400 10 Stool 3 1 Other: Voiding Method Indwelling Catheter Indwelling Catheter ABP, PAP, CO, CI - Last Documented Arterial Blood Pressure 121/63 - Exam GENERAL EXAM: Intubated, sedated, comfortable in no apparent distress. HEAD: Normocephalic/atraumatic. EYES: Normal reaction of pupils, PERRLA, Conjunctiva pink, sclera white. NOSE: Clear with pink turbinates. THROAT: No erythema or exudates. NECK: No masses, no JVD, no thyroid enlargement, no adenopathy. CHEST: No chest wall deformity. Symmetrical expansion. LUNGS: Equal air entry with no crackles, wheeze, rhonchi or dullness. CVS: Regular rate and rhythm, normal S1 and S2, no gallops, no murmurs, no rubs ABDOMEN: Soft, nontender. No hepatosplenomegaly, normal bowel sounds, no guarding or rigidity. EXTREMITIES: No clubbing, no edema, no cyanosis, 2+ pulses and upper and lower extremities. MUSCULOSKELETAL: Muscle strength and tone normal. Left [id number] amputee SPINE: No scoliosis or deformity SKIN: No rashes. Small scab present on right foot CENTRAL NERVOUS SYSTEM: Sedated, intubated No focal deficits, tone is normal in all 4 extremities. - Labs CBC & Chem 7: 12/27/20 04:15 12/27/20 04:15 Labs: Abnormal Lab Results - Last 24 Hours (Table) 12/26/20 12/26/20 12/27/20 Range/Units 18:17 19:49 00:13 WBC (3.8-10.6) k/uL RBC (4.30-5.90) m/uL Hgb (13.0-17.5) gm/dL Hct (39.0-53.0) % MCV (80.0-100.0) fL MCH (25.0-35.0) pg MCHC (31.0-37.0) g/dL RDW (11.5-15.5) % ABG pCO2 (35-45) mmHg ABG pO2 (83-108) mmHg ABG HCO3 (21-25) mmol/L ABG O2 Saturation (94-97) % Potassium 3.3 L (3.5-5.1) mmol/L Chloride 116 H (98-107) mmol/L Carbon Dioxide 20 L (22-30) mmol/L BUN 26 H (9-20) mg/dL Glucose 147 H (74-99) mg/dL POC Glucose (mg/dL) 130 H 140 H (75-99) mg/dL Calcium 7.4 L (8.4-10.2) mg/dL 12/27/20 12/27/20 12/27/20 Range/Units 04:15 04:15 04:22 WBC 11.8 H (3.8-10.6) k/uL RBC 3.83 L (4.30-5.90) m/uL Hgb 9.0 L (13.0-17.5) gm/dL Hct 29.8 L (39.0-53.0) % MCV 77.7 L (80.0-100.0) fL MCH 23.5 L (25.0-35.0) pg MCHC 30.2 L (31.0-37.0) g/dL RDW 24.5 H (11.5-15.5) % ABG pCO2 27 L (35-45) mmHg ABG pO2 68 L (83-108) mmHg ABG HCO3 19 L (21-25) mmol/L ABG O2 Saturation 93.9 L (94-97) % Potassium (3.5-5.1) mmol/L Chloride 116 H (98-107) mmol/L Carbon Dioxide 18 L (22-30) mmol/L BUN 24 H (9-20) mg/dL Glucose 133 H (74-99) mg/dL POC Glucose (mg/dL) (75-99) mg/dL Calcium 7.4 L (8.4-10.2) mg/dL Microbiology - Last 24 Hours (Table) 12/22/20 11:30 Blood Culture - Preliminary Blood No Growth after 96 hours 12/22/20 11:20 Blood Culture - Preliminary Blood No Growth after 96 hours Assessment and Plan Plan: Assessment: #1. Acute hypoxic respiratory failure related to septic shock possibly related to acute urinary tract infection and gram-negative pneumonia, related to Klebsiella pneumoniae and Enterobacter cloacae requiring intubation and plac ement on mechanical ventilator on 12/22/2020, COVID 19 PCR was negative #2. Acute urinary tract infection, urine culture has shown no growth #3. Recent history of MSSA bacteremia in October 2020 #4. Previous history of recurrent sepsis and previous bacteremia #5. History of left knee septic arthritis status post left faelu-[id number] amputation #6. DM II #7. History of COPD #8. History of PE and DVT, on Xarelto #9. History of coronary artery disease with previous stent placement #10. Former nicotine dependence #11. Anxiety/depression #12. Chronic back pain with history of multiple compression fractures in his thoracic and lumbar spine at T12-L1, L3-L4 #13. Stage II on sacrum, present on admission #14. Acute kidney injury secondary to sepsis and acute tubular necrosis with septic shock, resolved #15. Acute lactic acidosis related to sepsis and septic shock, improved #16. Acute encephalopathy, likely toxic metabolic #17. Episode of SVT on 12/25/2020 requiring adenosine, he is currently in sinus mechanism Plan: We will again try a daily interruption oxidation again today, and if patient tolerates it we'll proceed with spontaneous breathing trials, with pressure- support of 8 and CPAP of 5. Continue with same antibiotics, will put the patient on daily dose of IV Lasix 40 mg daily, accurate intake and output, continue following cultures. Patient's family has declined tracheostomy and PEG tube placement, we'll reach out to them again and update on the patient's condition. We'll continue supportive care, extremely guarded prognosis. If patient's family wants to continue supportive care, recommendations proceed with a tracheostomy in PEG tube placement to facilitate weaning. I performed a history & physical examination of the patient and discussed their management with my nurse practitioner, Yoselin Wiggins. I reviewed the nurse practitioner's note and agree with the documented findings and plan of care. Lung sounds are positive for diminished breath sounds. The findings and the impression was discussed with the patient. I attest to the documentation by the nurse practitioner. Time with Patient: Greater than 30
[2020-12-27] MEDS: FUROSEMIDE 10 MG/ML 4 ML VIAL IV SCH (10:15)
--- NOTE | 2020-12-27 10:26 | P.PN ---
Subjective Progress Note Date: 12/27/20 Remains vent dependent, with FiO2 25%/+5 of PEEP. Maintained on Zosyn for aspiration pneumonia. Sputum culture reporting Klebsiella pneumoniae and Enterobacter cloacae. Chest x-ray reporting improving bibasilar infiltrates. Telemetry sinus tach. with poss proximal SVT earlier this morning, beta lisa increased in addition to verapamil. Evaluated by surgery and scheduled for trach and PEG tomorrow. 12/27/2020 remains vent dependent, FiO2 25%/+5 of PEEP. Last night developed a 12 second run of nonsustained V. tach, placed on amiodarone drip. Magnesium 1.8. He received potassium supplementation yesterday, potassium 3.8. Hemoglobin 9, platelets 191. Continues on Zosyn, afebrile, WBC 11.8. Increased edema of extremities. Received a dose of Lasix 60 mg yesterday, urine output of 1500 MLS reflected in 24 hour I&O, positive fluid balance of 1382. Renal function improving, BUN 24, creatinine 0.78. Chest x-ray Yesterday attempted sedation holiday, patient did not tolerate, became tachypneic, agitated, unable to follow commands. Chest x-ray reporting worsening bibasilar infiltrates, at electasis, atypical pneumonia, early pulmonary , prominent pulmonary vascular markings. Patient initially scheduled for trach and peg, currently declined procedure. Tolerating tube feeds at goal with minimal to no residual. Objective - Vital Signs Vital signs: Vital Signs Temp 98.8 F 12/27/20 04:00 Pulse 82 12/27/20 07:07 Resp 39 H 12/27/20 07:00 BP 114/77 12/26/20 21:00 Pulse Ox 97 12/27/20 07:00 Intake & Output 12/26/20 12/27/20 12/27/20 18:59 06:59 18:59 Intake Total 1075.00 1811.11 160.808 Output Total 1103 401 10 Balance -28.00 1410.11 150.808 Weight 73.5 kg 71.6 kg Intake: IV 412 761.95 42.66 Amiodarone 360 mg In 166.65 Dextrose 5% in Water 200 ml @ 1 MG/MIN 33.333 mls/ hr IV .Q6H ONE Rx#: [id number] Amiodarone 450 mg In 83.30 16.66 Dextrose 5% in Water 250 ml @ 0.5 MG/MIN 16.667 mls/hr IV .Q15H [facility] Rx#: [id number] Dextrose 5% in Water 100 100 ml @ 618 mls/hr IV .Q10M ONE with Amiodarone 150 mg Rx#:[id number] Piperacillin-Tazobactam 3 100 100 .375 gm In Sodium Chloride 0.9% 100 ml @ 25 mls/hr IVPB Q8HR [facility] Rx# :[id number] Sodium Chloride 0.9% 1, 240 240 20 000 ml @ 75 mls/hr IV . [id number] [facility] Rx#:[id number] pressure bag 72 72 6 Intake, IV Titration 300.00 635.16 91.148 Amount Magnesium Sulfate-D5w Pmx 100 1 gm In Dextrose/Water 1 100ml.bag @ 100 mls/hr IVPB Q1H [facility] Rx#: [id number] Potassium Chloride 20 meq 100 In Water For Injection 1 100ml.bag @ 50 mls/hr IVPB ONCE [facility] Rx#: [id number] Potassium Chloride 20 meq 100 200 In Water For Injection 1 100ml.bag @ 50 mls/hr IVPB Q2H [facility] Rx#: [id number] propofoL 1,000 mg In 100.00 335.16 91.148 Empty Bag 1 bag @ Titrate IV .Q0M [facility] Rx#: [id number] Tube Feeding 273 324 27 Other 90 90 Output: Urine 1100 400 10 Stool 3 1 Other: Voiding Method Indwelling Catheter Indwelling Catheter ABP, PAP, CO, CI - Last Documented Arterial Blood Pressure 121/63 - Exam - Exam General: Intubated, sedated. Vitals reviewed Lungs: coarse breath sounds, no wheezes or rales CV: Regular rate and rhythm, systolic murmur. Abdomen: soft, nondistended, positive bowel sounds Skin: Positive generalized edema, warm and dry. Coccyx dressing clean dry and intact, right anterior kc scab. Microbiology 12/22/20 11:30 Blood Blood Culture - Preliminary No Growth after 96 hours 12/22/20 11:20 Blood Blood Culture - Preliminary No Growth after 96 hours 12/22/20 13:11 Sputum Gram Stain - Final 12/22/20 13:11 Sputum Sputum Culture - Final Klebsiella pneumoniae Enterobacter cloacae 12/22/20 16:57 Urine,Catheterized Urine Culture - Final - Labs CBC & Chem 7: 12/27/20 04:15 12/27/20 04:15 Labs: Abnormal Lab Results - Last 24 Hours (Table) 12/26/20 12/26/20 12/27/20 Range/Units 18:17 19:49 00:13 WBC (3.8-10.6) k/uL RBC (4.30-5.90) m/uL Hgb (13.0-17.5) gm/dL Hct (39.0-53.0) % MCV (80.0-100.0) fL MCH (25.0-35.0) pg MCHC (31.0-37.0) g/dL RDW (11.5-15.5) % ABG pCO2 (35-45) mmHg ABG pO2 (83-108) mmHg ABG HCO3 (21-25) mmol/L ABG O2 Saturation (94-97) % Potassium 3.3 L (3.5-5.1) mmol/L Chloride 116 H (98-107) mmol/L Carbon Dioxide 20 L (22-30) mmol/L BUN 26 H (9-20) mg/dL Glucose 147 H (74-99) mg/dL POC Glucose (mg/dL) 130 H 140 H (75-99) mg/dL Calcium 7.4 L (8.4-10.2) mg/dL 12/27/20 12/27/20 12/27/20 Range/Units 04:15 04:15 04:22 WBC 11.8 H (3.8-10.6) k/uL RBC 3.83 L (4.30-5.90) m/uL Hgb 9.0 L (13.0-17.5) gm/dL Hct 29.8 L (39.0-53.0) % MCV 77.7 L (80.0-100.0) fL MCH 23.5 L (25.0-35.0) pg MCHC 30.2 L (31.0-37.0) g/dL RDW 24.5 H (11.5-15.5) % ABG pCO2 27 L (35-45) mmHg ABG pO2 68 L (83-108) mmHg ABG HCO3 19 L (21-25) mmol/L ABG O2 Saturation 93.9 L (94-97) % Potassium (3.5-5.1) mmol/L Chloride 116 H (98-107) mmol/L Carbon Dioxide 18 L (22-30) mmol/L BUN 24 H (9-20) mg/dL Glucose 133 H (74-99) mg/dL POC Glucose (mg/dL) (75-99) mg/dL Calcium 7.4 L (8.4-10.2) mg/dL Microbiology - Last 24 Hours (Table) 12/22/20 11:30 Blood Culture - Preliminary Blood No Growth after 96 hours 12/22/20 11:20 Blood Culture - Preliminary Blood No Growth after 96 hours Assessment and Plan Assessment: Acute on chronic hypoxic respiratory failure, mechanical ventilator-dependent, secondary to septic shock related to acute aspiration pneumonia with Klebsiella pneumoniae, Enterobacter Cloacae, possible acute UTI-follow cultures report no growth. Nonsustained V. 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 Former nicotine dependence Stage II sacrum-coccyx ulcer, present on admission Plan: Continue on current medication regime ,monitoring and symptomatic treatment. Xarelto had been placed placed on hold, for trach and PEG today- family currently declining. Maintain IV antibiotics as per CELESTINA Gurrola recently turned off for another attempt at sedation holiday with potential weaning trial.Prognosis guarded given multiple complex medical issues. The impression and plan of care has been dictated as directed. : I performed a history and examination of this patient, discussed the same with the dictator. I agree with the dictator's note ,documented as a scribe. Any additional findings or plans will be noted.
[2020-12-27 11:35] LABS: Glucose,Whole Blood 75 mg/dL (75-99)
--- NOTE | 2020-12-27 12:12 | P.PN ---
Subjective Progress Note Date: 12/27/20 CHIEF COMPLAINT: Shortness of breath HISTORY OF PRESENT ILLNESS: Surgical service is following for possible trach and PEG placement. At this time family has declined trach and PEG. Patient remains in the ICU on mechanical ventilation. Afebrile. WBC 11.8 PHYSICAL EXAM: VITAL SIGNS: Reviewed. GENERAL: Well-developed in no acute distress. HEENT: No sclera icterus. Extraocular movements grossly intact. Moist buccal mucosa. Head is atraumatic, normocephalic. ABDOMEN: Soft. Nondistended. Nontender. NEUROLOGIC: Intubated and sedated ASSESSMENT: 1. Acute on chronic hypoxic respiratory failure 2. Severe protein calorie malnutrition PLAN: -Continue supportive care -Continue ICU management -We'll continue to follow for possible trach and PEG placement Physician Medical Records Tech note has been reviewed by physician. Signing provider agrees with the documented findings, assessment, and plan of care. Objective - Vital Signs Vital signs: Vital Signs Temp 98.0 F 12/27/20 08:00 Pulse 76 12/27/20 11:24 Resp 28 H 12/27/20 11:00 BP 114/77 12/26/20 21:00 Pulse Ox 99 12/27/20 11:00 Intake & Output 12/26/20 12/27/20 12/27/20 18:59 06:59 18:59 Intake Total 1075.00 1811.11 677.448 Output Total 1103 401 395 Balance -28.00 1410.11 282.448 Weight 73.5 kg 71.6 kg Intake: IV 412 761.95 321.30 Amiodarone 360 mg In 166.65 Dextrose 5% in Water 200 ml @ 1 MG/MIN 33.333 mls/ hr IV .Q6H [facility] Rx#: [id number] Amiodarone 450 mg In 83.30 83.30 Dextrose 5% in Water 250 ml @ 0.5 MG/MIN 16.667 mls/hr IV .Q15H [facility] Rx#: [id number] Dextrose 5% in Water 100 100 ml @ 618 mls/hr IV .Q10M ONE with Amiodarone 150 mg Rx#:[id number] Magnesium Sulfate-D5w Pmx 100 1 gm In Dextrose/Water 1 100ml.bag @ 100 mls/hr IVPB Q1H [facility] Rx#: [id number] Piperacillin-Tazobactam 3 100 100 100 .375 gm In Sodium Chloride 0.9% 100 ml @ 25 mls/hr IVPB Q8HR [facility] Rx# :[id number] Sodium Chloride 0.9% 1, 240 240 20 000 ml @ 75 mls/hr IV . [id number] [facility] Rx#:[id number] pressure bag 72 72 18 Intake, IV Titration 300.00 635.16 91.148 Amount Magnesium Sulfate-D5w Pmx 100 1 gm In Dextrose/Water 1 100ml.bag @ 100 mls/hr IVPB Q1H [facility] Rx#: [id number] Potassium Chloride 20 meq 100 In Water For Injection 1 100ml.bag @ 50 mls/hr IVPB ONCE [facility] Rx#: [id number] Potassium Chloride 20 meq 100 200 In Water For Injection 1 100ml.bag @ 50 mls/hr IVPB Q2H [facility] Rx#: [id number] propofoL 1,000 mg In 100.00 335.16 91.148 Empty Bag 1 bag @ Titrate IV .Q0M [facility] Rx#: [id number] Oral 100 Tube Feeding 273 324 135 Other 90 90 30 Output: Urine 1100 400 395 Stool 3 1 Other: Voiding Method Indwelling Catheter Indwelling Catheter ABP, PAP, CO, CI - Last Documented Arterial Blood Pressure 104/59 - Labs CBC & Chem 7: 12/27/20 04:15 12/27/20 04:15 Labs: Abnormal Lab Results - Last 24 Hours (Table) 12/26/20 12/26/20 12/27/20 Range/Units 18:17 19:49 00:13 WBC (3.8-10.6) k/uL RBC (4.30-5.90) m/uL Hgb (13.0-17.5) gm/dL Hct (39.0-53.0) % MCV (80.0-100.0) fL MCH (25.0-35.0) pg MCHC (31.0-37.0) g/dL RDW (11.5-15.5) % ABG pCO2 (35-45) mmHg ABG pO2 (83-108) mmHg ABG HCO3 (21-25) mmol/L ABG O2 Saturation (94-97) % Potassium 3.3 L (3.5-5.1) mmol/L Chloride 116 H (98-107) mmol/L Carbon Dioxide 20 L (22-30) mmol/L BUN 26 H (9-20) mg/dL Glucose 147 H (74-99) mg/dL POC Glucose (mg/dL) 130 H 140 H (75-99) mg/dL Calcium 7.4 L (8.4-10.2) mg/dL 12/27/20 12/27/20 12/27/20 Range/Units 04:15 04:15 04:22 WBC 11.8 H (3.8-10.6) k/uL RBC 3.83 L (4.30-5.90) m/uL Hgb 9.0 L (13.0-17.5) gm/dL Hct 29.8 L (39.0-53.0) % MCV 77.7 L (80.0-100.0) fL MCH 23.5 L (25.0-35.0) pg MCHC 30.2 L (31.0-37.0) g/dL RDW 24.5 H (11.5-15.5) % ABG pCO2 27 L (35-45) mmHg ABG pO2 68 L (83-108) mmHg ABG HCO3 19 L (21-25) mmol/L ABG O2 Saturation 93.9 L (94-97) % Potassium (3.5-5.1) mmol/L Chloride 116 H (98-107) mmol/L Carbon Dioxide 18 L (22-30) mmol/L BUN 24 H (9-20) mg/dL Glucose 133 H (74-99) mg/dL POC Glucose (mg/dL) (75-99) mg/dL Calcium 7.4 L (8.4-10.2) mg/dL Microbiology - Last 24 Hours (Table) 12/22/20 11:30 Blood Culture - Preliminary Blood No Growth after 96 hours 12/22/20 11:20 Blood Culture - Preliminary Blood No Growth after 96 hours
--- NOTE | 2020-12-27 12:39 | PN ---
PROGRESS NOTE Mr. Sanabria developed a wide QRS tachycardia yesterday required to be shocked apparently. He is now in a sinus rhythm. I have reviewed the electrolyte profile and reviewed the rhythm strips. I am recommending that we supplement the potassium and magnesium aggressively. I placed him on IV amiodarone yesterday and we will continue the same today. He also had a short run of SVT this morning. After the IV amiodarone is completed, we will switch him to oral, continue beta lisa as well. We will discontinue verapamil. The patient remains on a ventilator. He is on a Diprivan drip. Blood pressure is fair. Urine output is less than 30 mL/hour. S1, S2 heard normally. Ejection systolic murmur is audible. Lungs reveal ventilator assisted breath sounds. Abdomen is soft. Lower extremities are unchanged. He has above-knee amputation on the left. Plan is to continue current medical regimen with oral amiodarone and supplement potassium. Prognosis remains guarded. MMODL / IJN: [id number] /
--- NOTE | 2020-12-27 13:48 | CT ---
EXAMINATION TYPE: CT brain wo con DATE OF EXAM: 12/27/2020 HISTORY: Altered mental status CT DLP: 1109.4 mGycm. Automated Exposure Control for Dose Reduction was Utilized. TECHNIQUE: CT scan of the head is performed without contrast. COMPARISON: CT brain October 24, 2020. FINDINGS: There is no acute intracranial hemorrhage or midline shift identified. There is mild to m oderate diffuse ventricular and sulcal prominence consistent with diffuse age-related cerebral atroph y. There is moderate to advanced low-attenuation in the periventricular white matter consistent with chronic small vessel ischemic change. 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 The globes are intact and the visualized sinuses are clear. Endotracheal and orogastr ic tubes noted on localizer. Further progression of bilateral mastoid air cells opacification on cur rent study. Abnormal soft tissue now surrounds the middle ear ossicles bilaterally IMPRESSION: 1. No acute intracranial hemorrhage or midline shift. 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 No significant interval change. 2. Worsening bilateral severe mastoiditis with middle ear infection spread suspected, correlate clini tanika.
[2020-12-27] MEDS: SODIUM CHLORIDE 0.9% 1,000 ML IV SCH (16:33)
--- NOTE | 2020-12-27 17:11 | PN ---
PROGRESS NOTE DATE OF SERVICE: 12/27/2020 REASON FOR FOLLOWUP: Gram-negative aspiration pneumonia. INTERVAL HISTORY: The patient is currently afebrile. The patient is hemodynamically stable, not on any pressor support. FiO2 is currently stable at 25%. No purulent secretions through the ET or any diarrhea reported by the nursing staff. PHYSICAL EXAMINATION: Blood pressure 110/64, pulse of 79, temperature 98. He is 99% on 25% FiO2. General description is an elderly male lying in bed in no distress. RESPIRATORY SYSTEM: Unlabored breathing with decreased breath sounds at the base. No wheeze. HEART: S1, S2. Regular rate and rhythm. ABDOMEN: Soft. No tenderness. LABS: Hemoglobin is 9, white count 11.8. BUN of 24 creatinine 0.78. Sputum is klebsiella and enterobacter. DIAGNOSTIC IMPRESSION AND PLAN: Patient with Gram-negative pneumonia. Sputum has been klebsiella and enterobacter. Patient is covered with Zosyn; to continue. Son at the bedside. Questions were answered. MMODL / IJN: [id number] /
[2020-12-27 17:16] LABS: Glucose,Whole Blood 136 mg/dL (75-99)
[2020-12-27] MEDS: RIVAROXABAN 15 MG TAB PO SCH (17:20)
[2020-12-27] MEDS: AMIODARONE 200 MG TAB PO SCH (22:10)
[2020-12-27 23:49] LABS: Glucose,Whole Blood 88 mg/dL (75-99)
[2020-12-28] MEDS: PIPERACILLIN-TAZOBACTAM 3.375 GM in SODIUM CHLORIDE 0.9% 100 ML IVPB SCH ×4 (00:10→23:25)
[2020-12-28] MEDS: IPRATROPIUM-ALBUTEROL 3 ML NEB INHALATION SCH ×6 (00:17→19:32)
[2020-12-28 03:57] LABS: Anisocytosis Marked; Basophils % (A) 0 %; Eosinophils # (A) 0.1 k/uL (0-0.7); Eosinophils % (A) 1 %; HCT 28.8 % (39.0-53.0); HGB 8.7 gm/dL (13.0-17.5); Hypochromasia Moderate; Lymphocytes % (A) 16 %; MCH 23.1 pg (25.0-35.0); MCHC 30.1 g/dL (31.0-37.0); MCV 76.7 fL (80.0-100.0); Mean Platelet Volume 10.7; Microcytosis Marked; Monocytes # (A) 0.2 k/uL (0-1.0); Monocytes % (A) 2 %; Neutrophils % (A) 80 %; Platelet Count 194 k/uL (150-450); Poikilocytosis Slight; RBC 3.75 m/uL (4.30-5.90); RDW 24.5 % (11.5-15.5); WBC 12.6 k/uL (3.8-10.6)
[2020-12-28 05:06] LABS: ALT <6 U/L (4-49); AST 12 U/L (17-59); African American GFR (CKD) >90 (>60 ml/min/1.73 sqM); Albumin 1.9 g/dL (3.5-5.0); Alkaline Phosphatase 82 U/L (38-126); Anion Gap 6 mmol/L; Blood Urea Nitrogen 22 mg/dL (9-20); Calcium 7.3 mg/dL (8.4-10.2); Carbon Dioxide 22 mmol/L (22-30); Chloride 112 mmol/L (98-107); Glucose 94 mg/dL (74-99); Magnesium 1.8 mg/dL (1.6-2.3); Non-African American GFR(CKD) >90 (>60 ml/min/1.73 sqM); Potassium 3.1 mmol/L (3.5-5.1); Sodium 140 mmol/L (137-145); Total Bilirubin 0.2 mg/dL (0.2-1.3); Total Protein 4.5 g/dL (6.3-8.2)
[2020-12-28 05:16] LABS: ABG Base Excess 0.3 mmol/L; ABG HCO3 23 mmol/L (21-25); ABG Oxygen Saturation 96.8 % (94-97); ABG PCO2 27 mmHg (35-45); ABG PH 7.53 (7.35-7.45); ABG PO2 73 mmHg (83-108); ABG TCO2 24 mmol/L (19-24)
[2020-12-28] MEDS: MAGNESIUM SULFATE-D5W PMX 1 GM in DEXTROSE/WATER 1 100ML.BAG IVPB SCH ×2 (05:23→06:42)
[2020-12-28] MEDS: POTASSIUM BICARBONATE/CIT AC 20 MEQ TABLET.EFF NG-TUBE SCH ×5 (05:23→23:25)
[2020-12-28] MEDS: INSULIN ASPART (NovoLOG) 100 UNIT/ML VIAL SQ SCH ×5 (05:30→23:22)
[2020-12-28 05:32] LABS: Glucose,Whole Blood 80 mg/dL (75-99)
[2020-12-28] MEDS: AMIODARONE 200 MG TAB PO SCH ×2 (07:39→20:11)
[2020-12-28] MEDS: METOPROLOL TARTRATE 50 MG TAB PO SCH ×2 (07:39→20:11)
[2020-12-28] MEDS: CHLORHEXIDINE GLUCONATE 15 ML CUP MUCOUS MEM SCH ×2 (07:39→20:11)
[2020-12-28] MEDS: HYDROCORTISONE SUCCINATE 100 MG/2 ML VIAL IV SCH (07:40)
[2020-12-28] MEDS: FUROSEMIDE 10 MG/ML 4 ML VIAL IV SCH (07:40)
[2020-12-28] MEDS: PANTOPRAZOLE 40 MG/10 ML VIAL IV SCH (07:40)
[2020-12-28] MEDS: SODIUM BICARBONATE TAB 650 MG TAB PO SCH ×3 (07:40→20:11)
--- NOTE | 2020-12-28 07:45 | XR ---
EXAMINATION TYPE: XR chest 1V portable DATE OF EXAM: 12/28/2020 COMPARISON: 12/28/2019 INDICATION: Intubated difficulty breathing TECHNIQUE: Single frontal view of the chest is obtained. FINDINGS: The heart size is normal. The pulmonary vasculature is normal. Small peripheral infiltrates are present bilaterally at the lung bases findings are improved over the interval. Endotracheal tube tip is above the tiffany. Nasogastric tube tip is in the left upper quadrant of the abdomen. IMPRESSION: 1. Improving bibasilar infiltrates. 2. Lines and catheters discussed above
[2020-12-28] MEDS ORDERED: Potassium Replacement Protocol 1 EACH MISC MISCELLANE PRN (07:50)
[2020-12-28] MEDS ORDERED: POTASSIUM BICARBONATE/CIT AC 20 MEQ TABLET.EFF NG-TUBE SCH (08:00)
[2020-12-28] MEDS ORDERED: POTASSIUM BICARBONATE/CIT AC 20 MEQ TABLET.EFF PO ONE (08:08)
--- NOTE | 2020-12-28 08:32 | PN ---
PROGRESS NOTE Mr. Sanabria is in sinus rhythm. He is hemodynamically stable. He is making a fair amount of urine in the 30-35 mL on average. Since we started IV and oral amiodarone, he has not had any runs of wide QRS tachycardia or SVT. Potassium level is low. We will supplement the potassium. Continue amiodarone for now. The patient remains on a ventilator and on Diprivan drip. Blood pressure is fair. S1, S2 heard normally, short systolic murmur at the base is audible. Lungs reveal diminished air entry. Abdomen is soft. Lower extremity exam is unchanged. Prognosis remains guarded. MMODL / IJN: [id number] /
--- NOTE | 2020-12-28 09:57 | CDI ---
Documentation Clarification Form Date: 12/27/2020 03:38:00 PM From: Lynda Shaw RN, CCDS Admit Date: 12/22/2020 12:17:00 PM Patient Name: Fletcher Sanabria Visit Number: [id number] Discharge Date: ATTENTION: The Clinical Documentation Specialists (CDI) and [facility] Coding Staff appreciate your assistance in clarifying documentation. Please respond to the clarification below the line at the bottom and electronically sign. The CDI & [facility] Coding staff will review the response and follow-up if needed. Please note: Queries are made part of the Legal Health Record. If you have any questions, please contact the author of this message via ITS. Dr. Anjali Osman Mild elevated troponin level likely demand due to demand mismatch is in the H/P and subsequent progress notes on 12/24. Please further specify demand mismatch. History/Risk Factors: Coronary artery disease, COPD, Rheumatoid arthritis, Sepsis Clinical Indicators: 75-year-old male present on 12/22 to ED with respiratory distress. On admission blood pressure at 10:59; 139/83 67 24 90 % BIPAP at 15 % flow rate. He was ruled in for severe respiratory failure with sepsis and septic shock. 12/22 at 73/30 and heart rate 118, patient was intubated and placed on mechanical ventilation EKG showed sinus tachycardia rate 118. No ST segment elevation 12/22 Lab findings: WBC 10.1, Hemoglobin 10.5, Troponin 0.087, proBNP 2150 12/22 ABG: pH of 7.17, PCO2 43, PO2 greater than 400. 12/22 Labs Sodium 139, chloride 109, bicarb 15, BUN 46, creatinine 5.48, Lactic acid level 7.9 12/22 CXR: mild cardiomegaly and low lung volumes with moderate to advanced chronic parenchymal fibrotic changes bilaterally. 12/22 Ua: UTI Treatment: ICU Monitoring Mechanical ventilation management per Pulmonary .9NS 4L fluid bolus 12/22 Levophed 4 MG IV (titrate per orders) 12/22-12/26 Monitor Labs: CBC, Lytes, BUN, CR, ABG pre orders Vancomycin 1,250 Gm IVPB (pharm to dose) 12/22 In your professional opinion, can you please clarify demand mismatch? Type II CA secondary to sepsis with septic shock and acute hypoxic respiratory failure Demand ischemia without CA Other, please specify Unable to determine (Last Revision: January 2018) Type II CA secondary to sepsis with septic shock and acute hypoxic respiratory failure MTDD
--- NOTE | 2020-12-28 11:01 | P.PN ---
Subjective Progress Note Date: 12/28/20 Principal diagnosis: Acute hypoxic respiratory failure, septic shock 75-year-old white male patient is well-known to our service from his previous admissions for complications related to episodes of sepsis. Patient has extensive medical history including history of COPD, diabetes mellitus type 2, hyperlipidemia, previous history of DVT and pulmonary embolism, patient is on Xa relto, coronary artery disease with previous stenting, anemia of chronic disease, bacteremia most recently related to MSSA, left lower extremity [id number] amputation related to septic arthritis of the left knee. he was brought into the emergency department per EMS on 12/22/2020 for evaluation of severe respiratory distress. On a to the hospital patient required CPAP support and bagging with DVM. His venous blood gas showed pH of 7.2 and pCO2 of 44, acute kidney injury with BUN of 46 and creatinine of 5.48, severe lactic acidosis with lactic acid of 7.9, related to suspected sepsis. Patient has had low-grade fever since admission. His had low blood pressures in the emergency department with a blood pressure 61/39, he was given 2 L fluid bolus in the emergency department, his lactic acid is still elevated but improving, in view of his significant metabolic acidosis and respiratory distress he was intubated and placed on mechanical ventilator. He has been started on Maxipime and vancomycin. His chest x-ray shows mild cardiomegaly and low lung volumes with moderate to advanced chronic parenchymal fibrotic changes bilaterally. No new acute infiltrates. COVID 19 PCR was negative. Blood cultures have been sent, urinalysis is possibility of urinary tract infection, we'll send a urine culture, sputum culture will also be sent. Patient had a mild troponin elevation of 0.087, and proBNP was 2150. He was seen in the ICU, remains hypotensive, he continues on IV fluids however his vasopressor requirements are minimal with the levo fed infusing at 3.6 mics per minute, he is on Diprivan at 10 mics per kilo per minute, and 0.9 normal saline 130 ML per hour. Patient was reevaluated today on 12/23/2020, patient was admitted yesterday with acute hypoxic Failure and Septic Shock, He Was Intubated Initially in the Emergency Room. Arrived to the ICU on Norepinephrine and Had to Place a Central Line and Arterial Line in the Patient upon Arrival to the ICU. Patient Is on Assist Control Rate of 18 Tidal Volume Is 400 FiO2 Is 35% PEEP Is 5. ABG Today Showed a PO2 of 132 PCO2 of 35 pH of 7.34. Patient Is on Propofol at 10 Mcg/Kg/M, He Is Now on Minimal Dose of Norepinephrine at 0.01 Mcg/Kg/M, Received Significant Amount of Fluid Boluses and Left Fluids Overnight. Remains on Vancomycin and Cefepime Empirically. He Also Received Solu-Cortef Yesterday Because of His Profound Hypotension, Today I Cut down His Cortef to 50 Mg IV Push Every 12 Hours. His Sputum Is Showing Gram-Negative Bacilli. Final Culture Is Pending. History of Functioning Is Improving BUN Is Improving Creatinine Is down to 2.30 from 5.48. Patient Continues to Have Significant Areas of Cellulitis Involving the Right Lower Extremity. And He Has a Left Above-Knee Amputation. Chest X-Ray Continues to Show by Basilar Opacities and Small Tiny Left Pleural Effusion. Patient was reevaluated today on 12/24/2020, patient remains in the ICU, intubated and mechanically ventilated. Ventilator settings are assist control rate of 18 tidal volume is 400 FiO2 is 35%, PEEP is 5. ABG today showed a pO2 of 152 pCO2 of 25 pH of 7.38, bicarb is noted to be low, hence the patient was started on sodium bicarb orally at 650 mEq equivalent 3 times a day. Patient remains on propofol at 25 mcg/kg/m, IV fluids remains at 13 0 mL/h, he is off norepinephrine. Patient remains on cefepime and vancomycin, he is also on Xarelto, today oral bicarb was added. Urine output is still marginal today, creatinine is improving down to 1.41, hence I recommended fluid boluses to be given and if no improvement with fluid boluses, patient will receive Lasix challenge. Patient is on enteral feeding, not To goal. CBC is relatively normal however hemoglobin is 8.4, electrolytes are normal bicarb is 15 BUN is 38 creatinine is 1.41. Patient has a bit of hyperchloremic metabolic acidosis. Sputum Gram stain is showing gram-negative bacilli, final culture is pending, in the meantime the patient again is on vancomycin and cefepime. Chest x-ray continued to show minimal bibasilar opacities. On 12/25/2020 patient seen in follow-up in intensive care unit. Patient is sedated, intubated, on assist control mode of ventilation, with a rate of 18, tidal volumes 400, FiO2 35% and PEEP of 5, displaced blood gases showed pO2 of 141, pCO2 of 23, and pH of 7.46, patient's IV fluids including 0.9 normal saline at a rate of 1:30 ML per hour, Diprivan is a 50 mics per kilo per minute, levo fed has been weaned off since early this morning, and patient is receiving tube feedings in the form of vital high-protein at 35 with a goal of 35 with standard water flushes at 30 mg every 4 hours. Yesterday patient was given a daily interruption of sedation, in apparently before the different and was even completely weaned off and he became quite tachycardic, tachypneic, agitated, however did not follow commands. His chest x-ray shows pulmonary vascular congestion, increasing small left pleural effusion with adjacent atelectasis and/or consolidation. She has received significant amount of IV fluids for septic shock, he is up 4 kg in the last 48 hours. Yesterday he was given a dose of IV Lasix, and he has produced 1.5 L in urine output, we'll give the patient another dose of IV Lasix today, remains on hydrocortisone currently at 50 mg daily. He is on IV antibiotics in the form of Zosyn, his sputum cultures showed 2 gram-negative bacilli organisms, final culture is pending, blood and urine cultures have shown no growth, he has had no fever since admission. On 12/26/2020 patient seen in follow-up in intensive care unit, yesterday he was given a daily interruption of sedation and patient failed that. he was given a spontaneous breathing trial and he failed that as well. She was placed back on assist control mode of ventilation, and recently sedated. This morning she is on assist-control mode of ventilation with a rate of 18 however his spontaneous rate is 32 breaths per minute, tacrolimus 400, FiO2 of 25% and PEEP 5. This morning's blood gases show pO2 of 66, pCO2 25 and pH of 7.2 consistent with primary respiratory alkalosis and acute hypoxic respiratory failure. Today's chest x-ray has been reviewed. His chest x-ray has been reviewed showing bilateral infiltrates, and left pleural effusion has improved. Patient did receive 60 mg of Lasix yesterday and has produced over 3 L in urine output overnight. Still has mild generalized edema. We'll consider another dose of IV Lasix today, patient is currently in sinus mechanism, slightly tachycardic with a rate of 109 BPM, overnight however he had an episode of SVT for which she was given adenosine, he was started on verapamil and metoprolol dose was is being adjusted by cardiology. Today's lab And reviewed, showing white blood cell count of 10.1, hemoglobin of 9.5, sodium 144, potassium is 3.5, chloride is 117, CO2 is 20, BUN is 29 creatinine 0.89. Patient remains on Zosyn and the sputum culture showed Klebsiella pneumonia, and Enterobacter Cloacae. Blood cultures have been negative. Urine culture showed no growth. IV fluids include 0.9 normal saline at a rate of 20, and depending is at 60 mics per kilo per minute, in addition patient is receiving when necessary Dilaudid for pain. Abdomen is soft, patient is receiving vital high-protein at a rate of 10 ML per hour, he had high residuals overnight and his tube feeding rate was cut back. Yesterday his family was updated by the nursing staff on patient's condition, they would like to keep the patient a full code right now. On 12/27/2020 patient seen in follow-up in the intensive care unit, yesterday he failed sedation holiday, patient became agitated, very tachypneic, however was not awake or following commands. Because of respiratory distress he was placed back on sedation, he was not given a spontaneous breathing trial. This might she remains intubated, sedated, he is on assist-control mode of ventilation with a rate of 28, tacrolimus 400, FiO2 of 25%, and PEEP of 5, this morning's blood gas shows pO2 of 68, pCO2 of 27, pH of 7.45, his IV fluid include 0.9 normal saline at 20 ML per hour, Diprivan and is a 60 mics per kilo per minute, and amiodarone is 0.5 mg/m. Today's chest x-ray shows worsening bibasilar infiltrates, possibility of early pulmonary edema could also be considered and there is prominent pulmonary vascular markings. Patient isn't positive fluid balance over the last 24 hours. Yesterday he received a dose of 60 mg of Lasix, he has produced 1.5 L in the urine output, he is generally swollen. He is tolerating tube feedings, he is receiving vital high-protein at 27 with a rate of 27. Antibiotic coverage includes Zosyn. Patient's family has been updated on plan seen with a tracheostomy and PEG tube placement however they declined, and we will reach out to them again today to update the patient's status. On 12/28/2000 patient seen in follow-up. 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 Patient remains on antibiotics, currently on Zosyn. Today's chest x-ray shows improving bibasilar infiltrates. Yesterday we put the patient on maintenance dose of IV Lasix 40 mg once daily and patient produced 1.5 L in urine output, however he is in positive fluid balance of 816 over the last 24 hours. Sputum cultures positive for Klebsiella pneumonia and Enterobacter claudicate, urine and blood cultures have shown no growth. His ventilator settings are assist control with a rate of 28, tidal volume 400, FiO2 of 25% and PEEP of 5, this morning his blood gases show pO2 of 73, pCO2 27, and pH of 7.53. Rest of lab work has been reviewed, showing white blood cell, 12.6, hemoglobin of 8.7, potassium is 3.1, chloride is 112, BUN is 22, creatinine 0.6. She is tolerating tube feedings, he receiving vital high-protein a rate of 27:27, yesterday we called the patient's however there was no answer, message was left but she never returned her call. The nursing staff reports that the daughter came in to see the patient, and was updated on patient's condition, and updated on the plan however she wanted to continue with full code, and she indicated that she does not want tracheostomy and PEG tube placement and she wanted to wait and see if there was any more improvement over the weekend. She does want to give him every chance to see if he improves. Dr. Tesfaye called the daughter on the phone today and discussed plan of care, and current condition, the daughter still on decided, she was to consult with the rest of the family, however does not want to proceed with tracheostomy and PEG tube placement, we explained to her that in order for the patient to possibly wean and make any progress tracheostomy and PEG tube placement would be in his best interest if she wants to give him every chance for improvement. The daughter wants to consult with the family and get back to us Objective - Vital Signs Vital signs: Vital Signs Temp 100.0 F H 12/28/20 04:00 Pulse 102 H 12/28/20 07:45 Resp 33 H 12/28/20 07:00 BP 114/77 12/26/20 21:00 Pulse Ox 98 12/28/20 07:00 Intake & Output 12/27/20 12/28/20 12/28/20 18:59 06:59 18:59 Intake Total 1459.829 868.512 237.185 Output Total 1166 346 25 Balance 293.829 522.512 212.185 Intake: IV 483.94 210.98 3 Amiodarone 450 mg In 149.94 49.98 Dextrose 5% in Water 250 ml @ 0.5 MG/MIN 16.667 mls/hr IV .Q15H [facility] Rx#: [id number] Magnesium Sulfate-D5w Pmx 100 1 gm In Dextrose/Water 1 100ml.bag @ 100 mls/hr IVPB Q1H [facility] Rx#: [id number] Piperacillin-Tazobactam 3 175 125 .375 gm In Sodium Chloride 0.9% 100 ml @ 25 mls/hr IVPB Q8HR [facility] Rx# :[id number] Sodium Chloride 0.9% 1, 20 000 ml @ 75 mls/hr IV . [id number] [facility] Rx#:[id number] pressure bag 39 36 3 Intake, IV Titration 441.889 243.532 207.185 Amount Amiodarone 450 mg In 250 Dextrose 5% in Water 250 ml @ 0.5 MG/MIN 16.667 mls/hr IV .Q15H [facility] Rx#: [id number] Magnesium Sulfate-D5w Pmx 100 100 1 gm In Dextrose/Water 1 100ml.bag @ 100 mls/hr IVPB Q1H [facility] Rx#: [id number] propofoL 1,000 mg In 191.889 143.532 107.185 Empty Bag 1 bag @ Titrate IV .Q0M [facility] Rx#: [id number] Oral 150 Tube Feeding 324 324 27 Other 60 90 Output: Urine 1165 345 25 Stool 1 1 Other: Voiding Method Indwelling Catheter Indwelling Catheter ABP, PAP, CO, CI - Last Documented Arterial Blood Pressure 96/55 - Exam GENERAL EXAM: Intubated, sedated, comfortable in no apparent distress. HEAD: Normocephalic/atraumatic. EYES: Normal reaction of pupils, PERRLA, Conjunctiva pink, sclera white. NOSE: Clear with pink turbinates. THROAT: No erythema or exudates. NECK: No masses, no JVD, no thyroid enlargement, no adenopathy. CHEST: No chest wall deformity. Symmetrical expansion. LUNGS: Equal air entry with no crackles, wheeze, rhonchi or dullness. CVS: Regular rate and rhythm, normal S1 and S2, no gallops, no murmurs, no rubs ABDOMEN: Soft, nontender. No hepatosplenomegaly, normal bowel sounds, no guarding or rigidity. EXTREMITIES: No clubbing, no edema, no cyanosis, 2+ pulses and upper and lower extremities. MUSCULOSKELETAL: Muscle strength and tone normal. Left [id number] amputee SPINE: No scoliosis or deformity SKIN: No rashes. Small scab present on right foot CENTRAL NERVOUS SYSTEM: Sedated, intubated No focal deficits, tone is normal in all 4 extremities. - Labs CBC & Chem 7: 12/28/20 03:45 12/28/20 03:45 Labs: Abnormal Lab Results - Last 24 Hours (Table) 12/27/20 12/28/20 12/28/20 Range/Units 17:14 03:45 03:45 WBC 12.6 H (3.8-10.6) k/uL RBC 3.75 L (4.30-5.90) m/uL Hgb 8.7 L (13.0-17.5) gm/dL Hct 28.8 L (39.0-53.0) % MCV 76.7 L (80.0-100.0) fL MCH 23.1 L (25.0-35.0) pg MCHC 30.1 L (31.0-37.0) g/dL RDW 24.5 H (11.5-15.5) % Neutrophils # 10.0 H (1.3-7.7) k/uL ABG pH (7.35-7.45) ABG pCO2 (35-45) mmHg ABG pO2 (83-108) mmHg Potassium 3.1 L (3.5-5.1) mmol/L Chloride 112 H (98-107) mmol/L BUN 22 H (9-20) mg/dL POC Glucose (mg/dL) 136 H (75-99) mg/dL Calcium 7.3 L (8.4-10.2) mg/dL AST 12 L (17-59) U/L Total Protein 4.5 L (6.3-8.2) g/dL Albumin 1.9 L (3.5-5.0) g/dL 12/28/20 Range/Units 05:11 WBC (3.8-10.6) k/uL RBC (4.30-5.90) m/uL Hgb (13.0-17.5) gm/dL Hct (39.0-53.0) % MCV (80.0-100.0) fL MCH (25.0-35.0) pg MCHC (31.0-37.0) g/dL RDW (11.5-15.5) % Neutrophils # (1.3-7.7) k/uL ABG pH 7.53 H (7.35-7.45) ABG pCO2 27 L (35-45) mmHg ABG pO2 73 L (83-108) mmHg Potassium (3.5-5.1) mmol/L Chloride (98-107) mmol/L BUN (9-20) mg/dL POC Glucose (mg/dL) (75-99) mg/dL Calcium (8.4-10.2) mg/dL AST (17-59) U/L Total Protein (6.3-8.2) g/dL Albumin (3.5-5.0) g/dL Microbiology - Last 24 Hours (Table) 12/22/20 11:30 Blood Culture - Preliminary Blood No Growth after 120 hours 12/22/20 11:20 Blood Culture - Preliminary Blood No Growth after 120 hours Assessment and Plan Plan: Assessment: #1. Acute hypoxic respiratory failure related to septic shock possibly related to acute urinary tract infection and gram-negative pneumonia, related to Klebsiella pneumoniae and Enterobacter cloacae requiring intubation and placement on mechanical ventilator on 12/22/2020, COVID 19 PCR was negative #2. Acute urinary tract infection, urine culture has shown no growth #3. Recent history of MSSA bacteremia in October 2020 #4. Previous history of recurrent sepsis and previous bacteremia #5. History of left knee septic arthritis status post left [id number] amputation #6. DM II #7. History of COPD #8. History of PE and DVT, on Xarelto #9. History of coronary artery disease with previous stent placement #10. Former nicotine dependence #11. Anxiety/depression #12. Chronic back pain with history of multiple compression fractures in his thoracic and lumbar spine at T12-L1, L3-L4 #13. Stage II on sacrum, present on admission #14. Acute kidney injury secondary to sepsis and acute tubular necrosis with s eptic shock, resolved #15. Acute lactic acidosis related to sepsis and septic shock, improved #16. Acute encephalopathy, likely toxic metabolic #17. Episode of SVT on 12/25/2020 requiring adenosine, he is currently in sinus mechanism Plan: We will wake patient up again today, his been failing sedation holiday this on a daily basis, we completed the CT of the brain yesterday, which showed no acute intracranial process. Discussed the plan of care and the recommendation for a tracheostomy and PEG tube placement with the daughter today, wants to continue with full code, and see if he makes any more improvement. Will await final decision. Continue tube feedings, continue current dose of Lasix, continue antibiotics. I performed a history & physical examination of the patient and discussed their management with my nurse practitioner, Yoselin Wiggins. I reviewed the nurse practitioner's note and agree with the documented findings and plan of care. Lung sounds are positive for diminished breath sounds. The findings and the impression was discussed with the patient. I attest to the documentation by the nurse practitioner. Time with Patient: Greater than 30
[2020-12-28 11:39] LABS: Glucose,Whole Blood 125 mg/dL (75-99)
--- NOTE | 2020-12-28 11:40 | P.PN ---
Subjective Progress Note Date: 12/28/20 CHIEF COMPLAINT: Shortness of breath HISTORY OF PRESENT ILLNESS: Surgical service is following for possible trach and PEG placement. Patient remains in the ICU on mechanical ventilation. Awaiting family's decision regarding possible trach and PEG tube placement. Temperature 100 WBC 12.6 PHYSICAL EXAM: VITAL SIGNS: Reviewed. GENERAL: Well-developed in no acute distress. HEENT: No sclera icterus. Extraocular movements grossly intact. Moist buccal mucosa. Head is atraumatic, normocephalic. ABDOMEN: Soft. Nondistended. Nontender. NEUROLOGIC: Intubated and sedated ASSESSMENT: 1. Acute on chronic hypoxic respiratory failure 2. Severe protein calorie malnutrition PLAN: -Continue supportive care -Continue ICU management -We will continue to follow for possible trach and PEG placement Physician Finisher Hand note has been reviewed by physician. Signing provider agrees with the documented findings, assessment, and plan of care. Objective - Vital Signs Vital signs: Vital Signs Temp 100.0 F H 12/28/20 04:00 Pulse 102 H 12/28/20 07:45 Resp 33 H 12/28/20 07:00 BP 114/77 12/26/20 21:00 Pulse Ox 98 12/28/20 07:00 Intake & Output 12/27/20 12/28/20 12/28/20 18:59 06:59 18:59 Intake Total 1459.829 868.512 237.185 Output Total 1166 346 25 Balance 293.829 522.512 212.185 Intake: IV 483.94 210.98 3 Amiodarone 450 mg In 149.94 49.98 Dextrose 5% in Water 250 ml @ 0.5 MG/MIN 16.667 mls/hr IV .Q15H [facility] Rx#: [id number] Magnesium Sulfate-D5w Pmx 100 1 gm In Dextrose/Water 1 100ml.bag @ 100 mls/hr IVPB Q1H [facility] Rx#: [id number] Piperacillin-Tazobactam 3 175 125 .375 gm In Sodium Chloride 0.9% 100 ml @ 25 mls/hr IVPB Q8HR [facility] Rx# :[id number] Sodium Chloride 0.9% 1, 20 000 ml @ 75 mls/hr IV . [id number] [facility] Rx#:[id number] pressure bag 39 36 3 Intake, IV Titration 441.889 243.532 207.185 Amount Amiodarone 450 mg In 250 Dextrose 5% in Water 250 ml @ 0.5 MG/MIN 16.667 mls/hr IV .Q15H [facility] Rx#: [id number] Magnesium Sulfate-D5w Pmx 100 100 1 gm In Dextrose/Water 1 100ml.bag @ 100 mls/hr IVPB Q1H [facility] Rx#: [id number] propofoL 1,000 mg In 191.889 143.532 107.185 Empty Bag 1 bag @ Titrate IV .Q0M [facility] Rx#: [id number] Oral 150 Tube Feeding 324 324 27 Other 60 90 Output: Urine 1165 345 25 Stool 1 1 Other: Voiding Method Indwelling Catheter Indwelling Catheter ABP, PAP, CO, CI - Last Documented Arterial Blood Pressure 96/55 - Labs CBC & Chem 7: 12/28/20 03:45 12/28/20 03:45 Labs: Abnormal Lab Results - Last 24 Hours (Table) 12/27/20 12/28/20 12/28/20 Range/Units 17:14 03:45 03:45 WBC 12.6 H (3.8-10.6) k/uL RBC 3.75 L (4.30-5.90) m/uL Hgb 8.7 L (13.0-17.5) gm/dL Hct 28.8 L (39.0-53.0) % MCV 76.7 L (80.0-100.0) fL MCH 23.1 L (25.0-35.0) pg MCHC 30.1 L (31.0-37.0) g/dL RDW 24.5 H (11.5-15.5) % Neutrophils # 10.0 H (1.3-7.7) k/uL ABG pH (7.35-7.45) ABG pCO2 (35-45) mmHg ABG pO2 (83-108) mmHg Potassium 3.1 L (3.5-5.1) mmol/L Chloride 112 H (98-107) mmol/L BUN 22 H (9-20) mg/dL POC Glucose (mg/dL) 136 H (75-99) mg/dL Calcium 7.3 L (8.4-10.2) mg/dL AST 12 L (17-59) U/L Total Protein 4.5 L (6.3-8.2) g/dL Albumin 1.9 L (3.5-5.0) g/dL 12/28/20 Range/Units 05:11 WBC (3.8-10.6) k/uL RBC (4.30-5.90) m/uL Hgb (13.0-17.5) gm/dL Hct (39.0-53.0) % MCV (80.0-100.0) fL MCH (25.0-35.0) pg MCHC (31.0-37.0) g/dL RDW (11.5-15.5) % Neutrophils # (1.3-7.7) k/uL ABG pH 7.53 H (7.35-7.45) ABG pCO2 27 L (35-45) mmHg ABG pO2 73 L (83-108) mmHg Potassium (3.5-5.1) mmol/L Chloride (98-107) mmol/L BUN (9-20) mg/dL POC Glucose (mg/dL) (75-99) mg/dL Calcium (8.4-10.2) mg/dL AST (17-59) U/L Total Protein (6.3-8.2) g/dL Albumin (3.5-5.0) g/dL Microbiology - Last 24 Hours (Table) 12/22/20 11:30 Blood Culture - Preliminary Blood No Growth after 120 hours 12/22/20 11:20 Blood Culture - Preliminary Blood No Growth after 120 hours
[2020-12-28] MEDS: MORPHINE SULFATE 2 MG/ML SYRINGE IV PRN ×2 (12:06→16:29)
--- NOTE | 2020-12-28 14:25 | P.PN ---
Subjective Progress Note Date: 12/28/20 Remains vent dependent, with FiO2 25%/+5 of PEEP. Maintained on Zosyn for aspiration pneumonia. Sputum culture reporting Klebsiella pneumoniae and Enterobacter cloacae. Chest x-ray reporting improving bibasilar infiltrates. Telemetry sinus tach. with poss proximal SVT earlier this morning, beta lisa increased in addition to verapamil. Evaluated by surgery and scheduled for trach and PEG tomorrow. 12/27/2020 remains vent dependent, FiO2 25%/+5 of PEEP. Last night developed a 12 second run of nonsustained V. tach, placed on amiodarone drip. Magnesium 1.8. He received potassium supplementation yesterday, potassium 3.8. Hemoglobin 9, platelets 191. Continues on Zosyn, afebrile, WBC 11.8. Increased edema of extremities. Received a dose of Lasix 60 mg yesterday, urine output of 1500 MLS reflected in 24 hour I&O, positive fluid balance of 1382. Renal function improving, BUN 24, creatinine 0.78. Chest x-ray Yesterday attempted sedation holiday, patient did not tolerate, became tachypneic, agitated, unable to follow commands. Chest x-ray reporting worsening bibasilar infiltrates, at electasis, atypical pneumonia, early pulmonary , prominent pulmonary vascular markings. Patient initially scheduled for trach and peg, currently declined procedure. Tolerating tube feeds at goal with minimal to no residual. 12/28/2020 remains vent dependent, FiO2 25%/+5 of PEEP. Patient's third spacing, skin fragile with multiple skin tears, albumin 1.9. No further runs of V. tach reported. Sedation holiday attempted yesterday, patient did not tolerate it, became tachycardic, tachypneic, unable to follow commands. 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 Worsening bilateral severe mastoiditis with bilateral ear infection spread suspected. Maintained on Zosyn. Chest x-ray reporting improving bibasilar infiltrates .T- max 100, WBC 12.6. Receiving potassium supplementation for potassium at 3.1, magnesium 1.8. Gentle diuresing with Lasix IV with 24-hour I&O reporting a positive fluid balance of 816. BUN 22, creatinine 0.68. The family currently discussing trach and PEG and has not yet consented. Objective - Vital Signs Vital signs: Vital Signs Temp 100.0 F H 12/28/20 04:00 Pulse 102 H 12/28/20 07:45 Resp 33 H 12/28/20 07:00 BP 114/77 12/26/20 21:00 Pulse Ox 98 12/28/20 07:00 Intake & Output 12/27/20 12/28/20 12/28/20 18:59 06:59 18:59 Intake Total 1459.829 868.512 220.252 Output Total 1166 346 25 Balance 293.829 522.512 195.252 Intake: IV 483.94 210.98 3 Amiodarone 450 mg In 149.94 49.98 Dextrose 5% in Water 250 ml @ 0.5 MG/MIN 16.667 mls/hr IV .Q15H SURYA Rx#: [id number] Magnesium Sulfate-D5w Pmx 100 1 gm In Dextrose/Water 1 100ml.bag @ 100 mls/hr IVPB Q1H SURYA Rx#: [id number] Piperacillin-Tazobactam 3 175 125 .375 gm In Sodium Chloride 0.9% 100 ml @ 25 mls/hr IVPB Q8HR SURYA Rx# :[id number] Sodium Chloride 0.9% 1, 20 000 ml @ 75 mls/hr IV . [id number] SURYA Rx#:[id number] pressure bag 39 36 3 Intake, IV Titration 441.889 243.532 190.252 Amount Amiodarone 450 mg In 250 Dextrose 5% in Water 250 ml @ 0.5 MG/MIN 16.667 mls/hr IV .Q15H SURYA Rx#: [id number] Magnesium Sulfate-D5w Pmx 100 100 1 gm In Dextrose/Water 1 100ml.bag @ 100 mls/hr IVPB Q1H SURYA Rx#: [id number] propofoL 1,000 mg In 191.889 143.532 90.252 Empty Bag 1 bag @ Titrate IV .Q0M SURYA Rx#: [id number] Oral 150 Tube Feeding 324 324 27 Other 60 90 Output: Urine 1165 345 25 Stool 1 1 Other: Voiding Method Indwelling Catheter Indwelling Catheter ABP, PAP, CO, CI - Last Documented Arterial Blood Pressure 96/55 - Exam - Exam General: Intubated, sedated. Vitals reviewed Lungs: coarse breath sounds, no wheezes or rales CV: Regular rate and rhythm, systolic murmur. Abdomen: soft, nondistended, positive bowel sounds Skin: Positive generalized edema, warm and dry. Scrotal edema. Coccyx dressing clean dry and intact, right anterior kc scab. Microbiology 12/22/20 11:30 Blood Blood Culture - Final No Growth after 144 hours 12/22/20 11:20 Blood Blood Culture - Final No Growth after 144 hours 12/22/20 13:11 Sputum Gram Stain - Final 12/22/20 13:11 Sputum Sputum Culture - Final Klebsiella pneumoniae Enterobacter cloacae 12/22/20 16:57 Urine,Catheterized Urine Culture - Final - Labs CBC & Chem 7: 12/28/20 03:45 12/28/20 03:45 Labs: Abnormal Lab Results - Last 24 Hours (Table) 12/27/20 12/28/20 12/28/20 Range/Units 17:14 03:45 03:45 WBC 12.6 H (3.8-10.6) k/uL RBC 3.75 L (4.30-5.90) m/uL Hgb 8.7 L (13.0-17.5) gm/dL Hct 28.8 L (39.0-53.0) % MCV 76.7 L (80.0-100.0) fL MCH 23.1 L (25.0-35.0) pg MCHC 30.1 L (31.0-37.0) g/dL RDW 24.5 H (11.5-15.5) % Neutrophils # 10.0 H (1.3-7.7) k/uL ABG pH (7.35-7.45) ABG pCO2 (35-45) mmHg ABG pO2 (83-108) mmHg Potassium 3.1 L (3.5-5.1) mmol/L Chloride 112 H (98-107) mmol/L BUN 22 H (9-20) mg/dL POC Glucose (mg/dL) 136 H (75-99) mg/dL Calcium 7.3 L (8.4-10.2) mg/dL AST 12 L (17-59) U/L Total Protein 4.5 L (6.3-8.2) g/dL Albumin 1.9 L (3.5-5.0) g/dL 12/28/20 Range/Units 05:11 WBC (3.8-10.6) k/uL RBC (4.30-5.90) m/uL Hgb (13.0-17.5) gm/dL Hct (39.0-53.0) % MCV (80.0-100.0) fL MCH (25.0-35.0) pg MCHC (31.0-37.0) g/dL RDW (11.5-15.5) % Neutrophils # (1.3-7.7) k/uL ABG pH 7.53 H (7.35-7.45) ABG pCO2 27 L (35-45) mmHg ABG pO2 73 L (83-108) mmHg Potassium (3.5-5.1) mmol/L Chloride (98-107) mmol/L BUN (9-20) mg/dL POC Glucose (mg/dL) (75-99) mg/dL Calcium (8.4-10.2) mg/dL AST (17-59) U/L Total Protein (6.3-8.2) g/dL Albumin (3.5-5.0) g/dL Microbiology - Last 24 Hours (Table) 12/22/20 11:30 Blood Culture - Preliminary Blood No Growth after 120 hours 12/22/20 11:20 Blood Culture - Preliminary Blood No Growth after 120 hours Assessment and Plan Assessment: Acute on chronic hypoxic respiratory failure, mechanical ventilator-dependent, secondary to septic shock related to acute aspiration pneumonia with Klebsiella pneumoniae, Enterobacter Cloacae, possible acute UTI-follow cultures report no growth. Bilateral severe mastoiditis with bilateral ear infection suspected per CT Nonsustained V. 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 Former nicotine dependence Stage II sacrum-coccyx ulcer, present on admission Hypoalbuminemia Plan: Continue on current medication regime ,monitoring and symptomatic treatment. Trach and PEG continues to be discussed among family, with no consent at this time.maintain supportive care .Prognosis guarded given multiple complex medical issues. The impression and plan of care has been dictated as directed. : I performed a history and examination of this patient, discussed the same with the dictator. I agree with the dictator's note ,documented as a scribe. Any additional findings or plans will be noted.
[2020-12-28] MEDS: SODIUM CHLORIDE 0.9% 1,000 ML IV SCH (16:39)
[2020-12-28 17:38] LABS: Prothrombin Time 10.3 sec (9.0-12.0)
[2020-12-28 17:48] LABS: Glucose,Whole Blood 93 mg/dL (75-99)
--- NOTE | 2020-12-28 22:54 | PN ---
PROGRESS NOTE DATE OF SERVICE: 12/28/2020 REASON FOR FOLLOWUP: Pneumonia and right lower extremity laceration. INTERVAL HISTORY: The patient is currently afebrile. The patient is hemodynamically stable. The patient remains intubated on the vent. FiO2 is currently stable at 25%. No significant purulent secretions through the ET or any diarrhea reported. The patient was noted to have a cut on the right leg. Will change in the position. No bleeding. PHYSICAL EXAMINATION: Blood pressure 111/61 with a pulse of 75, temperature 97.7. He is 97% on 25% FiO2. General description is an elderly male intubated on the vent. RESPIRATORY SYSTEM: Unlabored breathing with decreased breath sounds at the base. No wheeze. HEART: S1, S2. Regular rate and rhythm. ABDOMEN: Soft. No tenderness. Right lower extremity with an ulceration. No redness. No drainage. DIAGNOSTIC IMPRESSION AND PLAN: 1. Patient with acute respiratory failure, multifactorial, in this patient who did have a component of pneumonia, Gram-negative, aspiration. Patient is currently covered with Zosyn; to continue. Will monitor his clinical course closely. 2. Patient with right lower extremity laceration. Local care with dry Aquacel Silver dressing and Kerlix. Explained to the RN. Care was discussed with the patient's at the bedside. MMODL / IJN: [id number] /
[2020-12-28 23:23] LABS: Glucose,Whole Blood 82 mg/dL (75-99)
[2020-12-29] MEDS: IPRATROPIUM-ALBUTEROL 3 ML NEB INHALATION SCH ×6 (01:03→21:05)
[2020-12-29] MEDS: POTASSIUM BICARBONATE/CIT AC 20 MEQ TABLET.EFF NG-TUBE SCH (01:05)
[2020-12-29 03:40] LABS: ALT <6 U/L (4-49); AST 15 U/L (17-59); African American GFR (CKD) >90 (>60 ml/min/1.73 sqM); Alkaline Phosphatase 92 U/L (38-126); Anion Gap 5 mmol/L; Blood Urea Nitrogen 22 mg/dL (9-20); Calcium 7.5 mg/dL (8.4-10.2); Carbon Dioxide 26 mmol/L (22-30); Chloride 109 mmol/L (98-107); Glucose 83 mg/dL (74-99); Magnesium 1.9 mg/dL (1.6-2.3); Non-African American GFR(CKD) >90 (>60 ml/min/1.73 sqM); Potassium 4.1 mmol/L (3.5-5.1); Sodium 140 mmol/L (137-145); Total Bilirubin 0.3 mg/dL (0.2-1.3); Total Protein 4.6 g/dL (6.3-8.2)
[2020-12-29 03:42] LABS: Anisocytosis Marked; HCT 26.9 % (39.0-53.0); HGB 8.4 gm/dL (13.0-17.5); Hypochromasia Slight; MCHC 31.1 g/dL (31.0-37.0); MCV 77.1 fL (80.0-100.0); Mean Platelet Volume 9.8; Microcytosis Marked; Platelet Count 245 k/uL (150-450); RBC 3.48 m/uL (4.30-5.90)
[2020-12-29] MEDS: MAGNESIUM SULFATE-D5W PMX 1 GM in DEXTROSE/WATER 1 100ML.BAG IVPB SCH ×2 (04:14→05:14)
[2020-12-29] MEDS: INSULIN ASPART (NovoLOG) 100 UNIT/ML VIAL SQ SCH ×4 (05:17→23:51)
[2020-12-29 05:29] LABS: Band Neutrophils % 8 %; Eosinophils # (M) 0.17 k/uL (0-0.7); Large Platelets Present; Lymphocytes # (M) 3.36 k/uL (1.0-4.8); Monocytes # (M) 0.34 k/uL (0-1.0); Neutrophils % (M) 71 %; Nucleated Red Blood Cells 1 /100 WBC (0-0); Ovalocytes Present; RBC Fragments Present; Total Cells Counted 200; WBC 16.8 k/uL (3.8-10.6)
[2020-12-29 05:32] LABS: Polychromasia Present
[2020-12-29 05:35] LABS: Poikilocytosis (M) Present
[2020-12-29 05:43] LABS: ABG Base Excess 4.7 mmol/L; ABG HCO3 27 mmol/L (21-25); ABG PCO2 32 mmHg (35-45); ABG PH 7.54 (7.35-7.45); ABG PO2 72 mmHg (83-108); ABG TCO2 28 mmol/L (19-24); Allen Test Performed? Yes
--- NOTE | 2020-12-29 07:29 | XR ---
EXAMINATION TYPE: XR chest 1V portable DATE OF EXAM: 12/29/2020 CLINICAL HISTORY: Difficulty breathing progress study. TECHNIQUE: Single AP portable semiupright view of the chest is obtained. COMPARISON: Chest x-ray from one day earlier And older studies. FINDINGS: Stable endotracheal and orogastric tubes. Stable mild cardiomegaly with atherosclerotic and ectatic thoracic aorta. Background moderate emphyse matous and chronic parenchymal fibrotic changes bilaterally redemonstrated. Stable probable small lef t pleural effusion. Persistent bibasilar opacities. Metallic hardware right shoulder surgery partiall y imaged. IMPRESSION: Mild cardiomegaly and chronic changes with small to tiny left pleural effusion and bibasilar acute in filtrate and/or atelectasis are all redemonstrated.
[2020-12-29] MEDS: CHLORHEXIDINE GLUCONATE 15 ML CUP MUCOUS MEM SCH ×2 (07:57→20:40)
[2020-12-29] MEDS: SODIUM BICARBONATE TAB 650 MG TAB PO SCH ×3 (07:57→20:41)
[2020-12-29] MEDS: AMIODARONE 200 MG TAB PO SCH ×2 (07:57→20:40)
[2020-12-29] MEDS: METOPROLOL TARTRATE 50 MG TAB PO SCH ×2 (07:57→20:40)
[2020-12-29] MEDS: PIPERACILLIN-TAZOBACTAM 3.375 GM in SODIUM CHLORIDE 0.9% 100 ML IVPB SCH ×3 (08:03→23:40)
[2020-12-29] MEDS: HYDROCORTISONE SUCCINATE 100 MG/2 ML VIAL IV SCH (08:04)
[2020-12-29] MEDS: PANTOPRAZOLE 40 MG/10 ML VIAL IV SCH (08:04)
[2020-12-29] MEDS: FUROSEMIDE 10 MG/ML 4 ML VIAL IV SCH (08:04)
--- NOTE | 2020-12-29 09:04 | PN ---
PROGRESS NOTE Mr. Sanabria remains in sinus rhythm, hemodynamically stable, making fair amount of urine. He has not had any SVT or any wide QRS tachycardia. He is now on amiodarone 400 mg b.i.d. Liver functions are good. Vitals are stable. The patient remains on a ventilator. He is going for a trach and PEG probably. His physical exam revealed S1, S2 with a short systolic murmur. Lungs reveal bilateral ventilator assisted breath sounds. Abdomen is soft. He has a left above-knee amputation. I am recommending that we will continue current medical regimen including amiodarone orally. The patient probably has very poor overall prognosis and comfort care should be encouraged. MMODL / IJN: [id number] /
[2020-12-29] MEDS ORDERED: LIDOCAINE 1% INJ 10MG/ML (20 ML MDV) ONE (09:58)
[2020-12-29] MEDS ORDERED: LIDOCAINE 1% INJ 10MG/ML (20 ML MDV) SQ ONE (10:18)
--- NOTE | 2020-12-29 10:54 | XR ---
EXAMINATION TYPE: XR chest 1V portable DATE OF EXAM: 12/29/2020 CLINICAL HISTORY: PICC line placement . TECHNIQUE: Single AP portable semiupright view of the chest is obtained. COMPARISON: Chest x-ray from earlier today. FINDINGS: New left-sided PICC line terminates in SVC. Stable endotracheal and orogastric tubes. Chronic parenchymal changes bilaterally without suspicious focal airspace opacity or pneumothorax see n. Tiny bilateral pleural effusions. Osseous structures are demineralized. Cardiac silhouette size st able at upper limits of normal. IMPRESSION: New left-sided PICC line terminates in SVC. Background chronic changes with tiny bilatera l pleural effusions redemonstrated.
--- NOTE | 2020-12-29 11:12 | P.PN ---
Subjective Progress Note Date: 12/29/20 Principal diagnosis: Acute hypoxic respiratory failure, septic shock 75-year-old white male patient is well-known to our service from his previous admissions for complications related to episodes of sepsis. Patient has extensive medical history including history of COPD, diabetes mellitus type 2, hyperlipidemia, previous history of DVT and pulmonary embolism, patient is on Xa relto, coronary artery disease with previous stenting, anemia of chronic disease, bacteremia most recently related to MSSA, left lower extremity [id number] amputation related to septic arthritis of the left knee. he was brought into the emergency department per EMS on 12/22/2020 for evaluation of severe respiratory distress. On a to the hospital patient required CPAP support and bagging with DVM. His venous blood gas showed pH of 7.2 and pCO2 of 44, acute kidney injury with BUN of 46 and creatinine of 5.48, severe lactic acidosis with lactic acid of 7.9, related to suspected sepsis. Patient has had low-grade fever since admission. His had low blood pressures in the emergency department with a blood pressure 61/39, he was given 2 L fluid bolus in the emergency department, his lactic acid is still elevated but improving, in view of his significant metabolic acidosis and respiratory distress he was intubated and placed on mechanical ventilator. He has been started on Maxipime and vancomycin. His chest x-ray shows mild cardiomegaly and low lung volumes with moderate to advanced chronic parenchymal fibrotic changes bilaterally. No new acute infiltrates. COVID 19 PCR was negative. Blood cultures have been sent, urinalysis is possibility of urinary tract infection, we'll send a urine culture, sputum culture will also be sent. Patient had a mild troponin elevation of 0.087, and proBNP was 2150. He was seen in the ICU, remains hypotensive, he continues on IV fluids however his vasopressor requirements are minimal with the levo fed infusing at 3.6 mics per minute, he is on Diprivan at 10 mics per kilo per minute, and 0.9 normal saline 130 ML per hour. Patient was reevaluated today on 12/23/2020, patient was admitted yesterday with acute hypoxic Failure and Septic Shock, He Was Intubated Initially in the Emergency Room. Arrived to the ICU on Norepinephrine and Had to Place a Central Line and Arterial Line in the Patient upon Arrival to the ICU. Patient Is on Assist Control Rate of 18 Tidal Volume Is 400 FiO2 Is 35% PEEP Is 5. ABG Today Showed a PO2 of 132 PCO2 of 35 pH of 7.34. Patient Is on Propofol at 10 Mcg/Kg/M, He Is Now on Minimal Dose of Norepinephrine at 0.01 Mcg/Kg/M, Received Significant Amount of Fluid Boluses and Left Fluids Overnight. Remains on Vancomycin and Cefepime Empirically. He Also Received Solu-Cortef Yesterday Because of His Profound Hypotension, Today I Cut down His Cortef to 50 Mg IV Push Every 12 Hours. His Sputum Is Showing Gram-Negative Bacilli. Final Culture Is Pending. History of Functioning Is Improving BUN Is Improving Creatinine Is down to 2.30 from 5.48. Patient Continues to Have Significant Areas of Cellulitis Involving the Right Lower Extremity. And He Has a Left Above-Knee Amputation. Chest X-Ray Continues to Show by Basilar Opacities and Small Tiny Left Pleural Effusion. Patient was reevaluated today on 12/24/2020, patient remains in the ICU, intubated and mechanically ventilated. Ventilator settings are assist control rate of 18 tidal volume is 400 FiO2 is 35%, PEEP is 5. ABG today showed a pO2 of 152 pCO2 of 25 pH of 7.38, bicarb is noted to be low, hence the patient was started on sodium bicarb orally at 650 mEq equivalent 3 times a day. Patient remains on propofol at 25 mcg/kg/m, IV fluids remains at 13 0 mL/h, he is off norepinephrine. Patient remains on cefepime and vancomycin, he is also on Xarelto, today oral bicarb was added. Urine output is still marginal today, creatinine is improving down to 1.41, hence I recommended fluid boluses to be given and if no improvement with fluid boluses, patient will receive Lasix challenge. Patient is on enteral feeding, not To goal. CBC is relatively normal however hemoglobin is 8.4, electrolytes are normal bicarb is 15 BUN is 38 creatinine is 1.41. Patient has a bit of hyperchloremic metabolic acidosis. Sputum Gram stain is showing gram-negative bacilli, final culture is pending, in the meantime the patient again is on vancomycin and cefepime. Chest x-ray continued to show minimal bibasilar opacities. On 12/25/2020 patient seen in follow-up in intensive care unit. Patient is sedated, intubated, on assist control mode of ventilation, with a rate of 18, tidal volumes 400, FiO2 35% and PEEP of 5, displaced blood gases showed pO2 of 141, pCO2 of 23, and pH of 7.46, patient's IV fluids including 0.9 normal saline at a rate of 1:30 ML per hour, Diprivan is a 50 mics per kilo per minute, levo fed has been weaned off since early this morning, and patient is receiving tube feedings in the form of vital high-protein at 35 with a goal of 35 with standard water flushes at 30 mg every 4 hours. Yesterday patient was given a daily interruption of sedation, in apparently before the different and was even completely weaned off and he became quite tachycardic, tachypneic, agitated, however did not follow commands. His chest x-ray shows pulmonary vascular congestion, increasing small left pleural effusion with adjacent atelectasis and/or consolidation. She has received significant amount of IV fluids for septic shock, he is up 4 kg in the last 48 hours. Yesterday he was given a dose of IV Lasix, and he has produced 1.5 L in urine output, we'll give the patient another dose of IV Lasix today, remains on hydrocortisone currently at 50 mg daily. He is on IV antibiotics in the form of Zosyn, his sputum cultures showed 2 gram-negative bacilli organisms, final culture is pending, blood and urine cultures have shown no growth, he has had no fever since admission. On 12/26/2020 patient seen in follow-up in intensive care unit, yesterday he was given a daily interruption of sedation and patient failed that. he was given a spontaneous breathing trial and he failed that as well. She was placed back on assist control mode of ventilation, and recently sedated. This morning she is on assist-control mode of ventilation with a rate of 18 however his spontaneous rate is 32 breaths per minute, tacrolimus 400, FiO2 of 25% and PEEP 5. This morning's blood gases show pO2 of 66, pCO2 25 and pH of 7.2 consistent with primary respiratory alkalosis and acute hypoxic respiratory failure. Today's chest x-ray has been reviewed. His chest x-ray has been reviewed showing bilateral infiltrates, and left pleural effusion has improved. Patient did receive 60 mg of Lasix yesterday and has produced over 3 L in urine output overnight. Still has mild generalized edema. We'll consider another dose of IV Lasix today, patient is currently in sinus mechanism, slightly tachycardic with a rate of 109 BPM, overnight however he had an episode of SVT for which she was given adenosine, he was started on verapamil and metoprolol dose was is being adjusted by cardiology. Today's lab And reviewed, showing white blood cell count of 10.1, hemoglobin of 9.5, sodium 144, potassium is 3.5, chloride is 117, CO2 is 20, BUN is 29 creatinine 0.89. Patient remains on Zosyn and the sputum culture showed Klebsiella pneumonia, and Enterobacter Cloacae. Blood cultures have been negative. Urine culture showed no growth. IV fluids include 0.9 normal saline at a rate of 20, and depending is at 60 mics per kilo per minute, in addition patient is receiving when necessary Dilaudid for pain. Abdomen is soft, patient is receiving vital high-protein at a rate of 10 ML per hour, he had high residuals overnight and his tube feeding rate was cut back. Yesterday his family was updated by the nursing staff on patient's condition, they would like to keep the patient a full code right now. On 12/27/2020 patient seen in follow-up in the intensive care unit, yesterday he failed sedation holiday, patient became agitated, very tachypneic, however was not awake or following commands. Because of respiratory distress he was placed back on sedation, he was not given a spontaneous breathing trial. This might she remains intubated, sedated, he is on assist-control mode of ventilation with a rate of 28, tacrolimus 400, FiO2 of 25%, and PEEP of 5, this morning's blood gas shows pO2 of 68, pCO2 of 27, pH of 7.45, his IV fluid include 0.9 normal saline at 20 ML per hour, Diprivan and is a 60 mics per kilo per minute, and amiodarone is 0.5 mg/m. Today's chest x-ray shows worsening bibasilar infiltrates, possibility of early pulmonary edema could also be considered and there is prominent pulmonary vascular markings. Patient isn't positive fluid balance over the last 24 hours. Yesterday he received a dose of 60 mg of Lasix, he has produced 1.5 L in the urine output, he is generally swollen. He is tolerating tube feedings, he is receiving vital high-protein at 27 with a rate of 27. Antibiotic coverage includes Zosyn. Patient's family has been updated on plan seen with a tracheostomy and PEG tube placement however they declined, and we will reach out to them again today to update the patient's status. On 12/28/2000 patient seen in follow-up. 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 Patient remains on antibiotics, currently on Zosyn. Today's chest x-ray shows improving bibasilar infiltrates. Yesterday we put the patient on maintenance dose of IV Lasix 40 mg once daily and patient produced 1.5 L in urine output, however he is in positive fluid balance of 816 over the last 24 hours. Sputum cultures positive for Klebsiella pneumonia and Enterobacter claudicate, urine and blood cultures have shown no growth. His ventilator settings are assist control with a rate of 28, tidal volume 400, FiO2 of 25% and PEEP of 5, this morning his blood gases show pO2 of 73, pCO2 27, and pH of 7.53. Rest of lab work has been reviewed, showing white blood cell, 12.6, hemoglobin of 8.7, potassium is 3.1, chloride is 112, BUN is 22, creatinine 0.6. She is tolerating tube feedings, he receiving vital high-protein a rate of 27:27, yesterday we called the patient's however there was no answer, message was left but she never returned her call. The nursing staff reports that the daughter came in to see the patient, and was updated on patient's condition, and updated on the plan however she wanted to continue with full code, and she indicated that she does not want tracheostomy and PEG tube placement and she wanted to wait and see if there was any more improvement over the weekend. She does want to give him every chance to see if he improves. Dr. Tesfaye called the daughter on the phone today and discussed plan of care, and current condition, the daughter still on decided, she was to consult with the rest of the family, however does not want to proceed with tracheostomy and PEG tube placement, we explained to her that in order for the patient to possibly wean and make any progress tracheostomy and PEG tube placement would be in his best interest if she wants to give him every chance for improvement. The daughter wants to consult with the family and get back to us On 12/29/2020 patient seen in follow-up in intensive care unit, yesterday his sedation was held most of the day, patient was started to open eyes, and withdraw from pain but not really following any commands, towards the evening he did become more uncomfortable and tachypneic, he was placed back on sedation, currently he is on Diprivan at 30 mics per kilo per minute, 0.9 normal saline at a rate of 20 ML per hour, his tube feedings are on hold. He is on assist- control mode of ventilation with a rate of 28, tacrolimus 100, FiO2 is 25% and PEEP of 5, this morning his blood gases show pO2 of 72, pCO2 32, pH is 7.54. His in sinus mechanism on the monitor, his had no acute events overnight, he remains on Zosyn for evidence of Klebsiella pneumoniae and Enterobacter dixon icate in the sputum cultures, urine and blood cultures have shown no growth. It have a low-grade fever early this morning with a temp of 100.3F, yesterday patient's family called back and they have decided to proceed with a tracheostomy and PEG tube placement, and patient is boarded for this afternoon with Dr. Serrano tube feedings have been on hold since midnight. Chest x-ray shows chronic parenchymal changes without suspicious focal airspace opacity or pneumothorax, with tiny bilateral pleural effusions. Today's labs have been reviewed, white blood cell count is 16.8, hemoglobin is 8.4, chloride is 109, the rest of the electrolytes and renal profile were unremarkable. Patient is a slightly positive fluid balance, +371, remains on a once daily dose of Lasix. Objective - Vital Signs Vital signs: Vital Signs Temp 100.3 F H 12/29/20 08:00 Pulse 84 12/29/20 10:00 Resp 28 H 12/29/20 10:00 BP 114/77 12/28/20 14:00 Pulse Ox 99 12/29/20 10:00 Intake & Output 12/28/20 12/29/20 12/29/20 18:59 06:59 18:59 Intake Total 1125.765 766.728 204.407 Output Total 1196 325 565 Balance -70.235 441.728 -360.593 Weight 69.4 kg 69.4 kg Intake: IV 351 409 167 Piperacillin-Tazobactam 3 175 150 75 .375 gm In Sodium Chloride 0.9% 100 ml @ 25 mls/hr IVPB Q8HR SURYA Rx# :[id number] Sodium Chloride 0.9% 1, 140 220 80 000 ml @ 20 mls/hr IV . Q24H SURYA Rx#:[id number] pressure bag 36 39 12 Intake, IV Titration 210.765 135.728 37.407 Amount Magnesium Sulfate-D5w Pmx 100 1 gm In Dextrose/Water 1 100ml.bag @ 100 mls/hr IVPB Q1H SURYA Rx#: [id number] propofoL 1,000 mg In 110.765 135.728 37.407 Empty Bag 1 bag @ Titrate IV .Q0M SURYA Rx#: [id number] Oral 150 Tube Feeding 324 162 Other 90 60 Output: Urine 1195 325 565 Stool 1 Other: Voiding Method Indwelling Catheter Indwelling Catheter Indwelling Catheter # Bowel Movements 1 ABP, PAP, CO, CI - Last Documented Arterial Blood Pressure 102/54 - Exam GENERAL EXAM: Intubated, sedated, comfortable in no apparent distress. HEAD: Normocephalic/atraumatic. EYES: Normal reaction of pupils, PERRLA, Conjunctiva pink, sclera white. NOSE: Clear with pink turbinates. THROAT: No erythema or exudates. NECK: No masses, no JVD, no thyroid enlargement, no adenopathy. CHEST: No chest wall deformity. Symmetrical expansion. LUNGS: Equal air entry with no crackles, wheeze, rhonchi or dullness. CVS: Regular rate and rhythm, normal S1 and S2, no gallops, no murmurs, no rubs ABDOMEN: Soft, nontender. No hepatosplenomegaly, normal bowel sounds, no guarding or rigidity. EXTREMITIES: No clubbing, no edema, no cyanosis, 2+ pulses and upper and lower extremities. MUSCULOSKELETAL: Muscle strength and tone normal. Left dhbrt-[id number]-[id number] amputee SPINE: No scoliosis or deformity SKIN: No rashes. Small scab present on right foot CENTRAL NERVOUS SYSTEM: Sedated, intubated No focal deficits, tone is normal in all 4 extremities. - Labs CBC & Chem 7: 12/29/20 03:03 12/29/20 03:03 Labs: Abnormal Lab Results - Last 24 Hours (Table) 12/28/20 12/28/20 12/29/20 Range/Units 11:37 15:30 03:03 WBC 16.8 H (3.8-10.6) k/uL RBC 3.48 L (4.30-5.90) m/uL Hgb 8.4 L (13.0-17.5) gm/dL Hct 26.9 L (39.0-53.0) % MCV 77.1 L (80.0-100.0) fL MCH 24.0 L (25.0-35.0) pg RDW 24.0 H (11.5-15.5) % Neutrophils # (Manual) 13.20 H (1.3-7.7) k/uL Nucleated RBCs 1 H (0-0) /100 WBC ABG pH (7.35-7.45) ABG pCO2 (35-45) mmHg ABG pO2 (83-108) mmHg ABG HCO3 (21-25) mmol/L ABG Total CO2 (19-24) mmol/L Potassium 3.3 L (3.5-5.1) mmol/L Chloride (98-107) mmol/L BUN (9-20) mg/dL POC Glucose (mg/dL) 125 H (75-99) mg/dL Calcium (8.4-10.2) mg/dL AST (17-59) U/L Total Protein (6.3-8.2) g/dL Albumin (3.5-5.0) g/dL 12/29/20 12/29/20 Range/Units 03:03 05:37 WBC (3.8-10.6) k/uL RBC (4.30-5.90) m/uL Hgb (13.0-17.5) gm/dL Hct (39.0-53.0) % MCV (80.0-100.0) fL MCH (25.0-35.0) pg RDW (11.5-15.5) % Neutrophils # (Manual) (1.3-7.7) k/uL Nucleated RBCs (0-0) /100 WBC ABG pH 7.54 H (7.35-7.45) ABG pCO2 32 L (35-45) mmHg ABG pO2 72 L (83-108) mmHg ABG HCO3 27 H (21-25) mmol/L ABG Total CO2 28 H (19-24) mmol/L Potassium (3.5-5.1) mmol/L Chloride 109 H (98-107) mmol/L BUN 22 H (9-20) mg/dL POC Glucose (mg/dL) (75-99) mg/dL Calcium 7.5 L (8.4-10.2) mg/dL AST 15 L (17-59) U/L Total Protein 4.6 L (6.3-8.2) g/dL Albumin 2.0 L (3.5-5.0) g/dL Microbiology - Last 24 Hours (Table) 12/22/20 11:30 Blood Culture - Final Blood No Growth after 144 hours 12/22/20 11:20 Blood Culture - Final Blood No Growth after 144 hours Assessment and Plan Plan: Assessment: #1. Acute hypoxic respiratory failure related to septic shock possibly related to acute urinary tract infection and gram-negative pneumonia, related to Klebsiella pneumoniae and Enterobacter cloacae requiring intubation and placement on mechanical ventilator on 12/22/2020, COVID 19 PCR was negative #2. Acute urinary tract infection, urine culture has shown no growth #3. Recent history of MSSA bacteremia in October 2020 #4. Previous history of recurrent sepsis and previous bacteremia #5. History of left knee septic arthritis status post left aruka-xcc-blws amputation #6. DM II #7. History of COPD #8. History of PE and DVT, on Xarelto #9. History of coronary artery disease with previous stent placement #10. Former nicotine dependence #11. Anxiety/depression #12. Chronic back pain with history of multiple compression fractures in his thoracic and lumbar spine at T12-L1, L3-L4 #13. Stage II on sacrum, present on admission #14. Acute kidney injury secondary to sepsis and acute tubular necrosis with septic shock, resolved #15. Acute lactic acidosis related to sepsis and septic shock, improved #16. Acute encephalopathy, likely toxic metabolic #17. Episode of SVT on 12/25/2020 requiring adenosine, he is currently in sinus mechanism Plan: Continue with current antibiotics, continue with current vent settings, diuretics, chest x-ray showed resolved bibasilar infiltrates, it showed tiny pleural effusions. Patient is reported for tracheostomy and PEG tube placement today this afternoon, tube feedings have been on hold since midnight. Patient's family decided to proceed with a tracheostomy and PEG tube placement. Continue GI and DVT prophylaxis, no acute events overnight, continue to follow, prognosis is guarded I performed a history & physical examination of the patient and discussed their management with my nurse practitioner, Yoselin Wiggins. I reviewed the nurse practitioner's note and agree with the documented findings and plan of care. Lung sounds are positive for diminished breath sounds. The findings and the impression was discussed with the patient. I attest to the documentation by the nurse practitioner. Time with Patient: Greater than 30
--- NOTE | 2020-12-29 11:20 | IR ---
PICC LINE PLACEMENT: HISTORY: Infection requiring long-term antibiotic therapy PROCEDURE: Ultrasound guidance of PICC line placement. ORGANIZATION DEVELOPMENT CONSULTANT: Dr. Koroma. COMPLICATIONS: None ANESTHESIA: 1. 1% Lidocaine locally. FINDINGS/TECHNIQUE: The procedure was explained to the patient. The risks, complications, benefits and alternatives were discussed and any questions were answered. Informed consent was obtained. The patient was placed supine on the fluoroscopic table and prepped and draped in the usual sterile fas ion. Utilizing a 21 gauge needle and sonographic guidance, access in the left basilic vein was achi eved and there is placement of a 0.018 guidewire. The vein is patent. A 5-F. sheath was placed over the guidewire. The guidewire and dilator were removed and a 5-F. Double lumen PICC line was placed through the sheath with the chest x-ray confirming the tip at the level of the SVC. The sheath was r emoved, the catheter was flushed and sutured into position. The patient was stable throughout the pr ocedure and remained stable upon discharge from the Department of Radiology. The vein puncture was patent under ultrasound. A long scale image was obtained to document patency of the vein punctured. All elements of the maximal barrier technique were utilized. IMPRESSION: 1. Successful PICC line placement under ultrasound performed bedside within the ICU.
[2020-12-29 11:26] LABS: Glucose,Whole Blood 74 mg/dL (75-99)
[2020-12-29] MEDS ORDERED: ROCURONIUM 10 MG/ML (5 ML VIAL) IV ONE (15:02)
[2020-12-29] MEDS ORDERED: fentaNYL (PF) 50 MCG/ML 2 ML AMP ONE (15:02)
[2020-12-29] MEDS ORDERED: IV FLUID CONTINUATION 300 ML IV ONE (15:52)
--- NOTE | 2020-12-29 16:08 | P.OP ---
Date of Procedure: 12/29/20 Preoperative Diagnosis: Malnutrition, respiratory failure Postoperative Diagnosis: Malnutrition, respiratory failure Procedure(s) Performed: Tracheostomy PEG tube placement Anesthesia: MAC Surgeon: Jose Serrano Pathology: none sent Condition: stable Disposition: PACU Description of Procedure: The patient's placed on the operative table in the supine position. He received general anesthesia. His neck was prepped and draped usual fashion. Standard [place] incision was made the needle which cautery the subcutaneous tissues and platysma was divided. The strap muscle divided midline. The trachea exposed. The introducer tube was inserted into the right mainstem bronchus and then the tracheotomy performed between the second and third tracheal rings. The #8 Portex adjustable tracheostomy tube was inserted into the trachea. End tidal CO2 was confirmed. The retractors were removed and the skin was closed with 3-0 nylon. The tracheostomy tie was applied. Next the gastroscope was oropharynx past esophagus and stomach. Scope was then placed through the pylorus. First portion duodenum appeared normal. Scope was then brought back and stomach. A suitable light reflux was seen in the anterior abdominal wall. The skin was anesthetized 1% local Xylocaine. Then the needles placed and stomach under direct visualization. The skin was incised. The needle was snared and the wire was placed through the needle and the wire was snared and brought through the oropharynx. The patient's placed over top the wire brought down to the stomach. The PEG tube was secured with one-piece bolster at the 3 cm nicole. Patient top she will was sent back to the ICU in stable condition.
--- NOTE | 2020-12-29 16:35 | P.PN ---
Subjective Progress Note Date: 12/29/20 Remains vent dependent, with FiO2 25%/+5 of PEEP. Maintained on Zosyn for aspiration pneumonia. Sputum culture reporting Klebsiella pneumoniae and Enterobacter cloacae. Chest x-ray reporting improving bibasilar infiltrates. Telemetry sinus tach. with poss proximal SVT earlier this morning, beta lisa increased in addition to verapamil. Evaluated by surgery and scheduled for trach and PEG tomorrow. 12/27/2020 remains vent dependent, FiO2 25%/+5 of PEEP. Last night developed a 12 second run of nonsustained V. tach, placed on amiodarone drip. Magnesium 1.8. He received potassium supplementation yesterday, potassium 3.8. Hemoglobin 9, platelets 191. Continues on Zosyn, afebrile, WBC 11.8. Increased edema of extremities. Received a dose of Lasix 60 mg yesterday, urine output of 1500 MLS reflected in 24 hour I&O, positive fluid balance of 1382. Renal function improving, BUN 24, creatinine 0.78. Chest x-ray Yesterday attempted sedation holiday, patient did not tolerate, became tachypneic, agitated, unable to follow commands. Chest x-ray reporting worsening bibasilar infiltrates, at electasis, atypical pneumonia, early pulmonary , prominent pulmonary vascular markings. Patient initially scheduled for trach and peg, currently declined procedure. Tolerating tube feeds at goal with minimal to no residual. 12/28/2020 remains vent dependent, FiO2 25%/+5 of PEEP. Patient's third spacing, skin fragile with multiple skin tears, albumin 1.9. No further runs of V. tach reported. Sedation holiday attempted yesterday, patient did not tolerate it, became tachycardic, tachypneic, unable to follow commands. 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 Worsening bilateral severe mastoiditis with bilateral ear infection spread suspected. Maintained on Zosyn. Chest x-ray reporting improving bibasilar infiltrates .T- max 100, WBC 12.6. Receiving potassium supplementation for potassium at 3.1, magnesium 1.8. Gentle diuresing with Lasix IV with 24-hour I&O reporting a positive fluid balance of 816. BUN 22, creatinine 0.68. The family currently discussing trach and PEG and has not yet consented. 12/29/2020 Vent dependent, FiO2 25%/5 of PEEP. Sedated on diprovan. Continues on Zosyn, T-max 100.3, WBC 16.8.Chest x-ray reports chronic parenchymal changes without suspicious focal airspace opacity or pneumothorax, with tiny bilateral pleural effusions. Family has consented to trach and PEG-scheduled for today. Hemoglobin 8.4. Diuresing on Lasix IV push with 24-hour I&O reporting a positive fluid balance ,renal function stable. Objective - Vital Signs Vital signs: Vital Signs Temp 98.1 F 12/29/20 04:00 Pulse 97 12/29/20 08:26 Resp 28 H 12/29/20 08:26 BP 114/77 12/28/20 14:00 Pulse Ox 98 12/29/20 07:00 Intake & Output 12/28/20 12/29/20 12/29/20 18:59 06:59 18:59 Intake Total 1125.765 766.728 37.407 Output Total 1196 325 Balance -70.235 441.728 37.407 Weight 69.4 kg Intake: IV 351 409 Piperacillin-Tazobactam 3 175 150 .375 gm In Sodium Chloride 0.9% 100 ml @ 25 mls/hr IVPB Q8HR [facility] Rx# :[id number] Sodium Chloride 0.9% 1, 140 220 000 ml @ 20 mls/hr IV . Q24H [facility] Rx#:[id number] pressure bag 36 39 Intake, IV Titration 210.765 135.728 37.407 Amount Magnesium Sulfate-D5w Pmx 100 1 gm In Dextrose/Water 1 100ml.bag @ 100 mls/hr IVPB Q1H [facility] Rx#: [id number] propofoL 1,000 mg In 110.765 135.728 37.407 Empty Bag 1 bag @ Titrate IV .Q0M SURYA Rx#: [id number] Oral 150 Tube Feeding 324 162 Other 90 60 Output: Urine 1195 325 Stool 1 Other: Voiding Method Indwelling Catheter Indwelling Catheter # Bowel Movements 1 ABP, PAP, CO, CI - Last Documented Arterial Blood Pressure 112/57 - Exam - Exam General: Intubated, sedated. Vitals reviewed Lungs: coarse breath sounds, no wheezes or rales CV: Regular rate and rhythm, systolic murmur. Abdomen: soft, nondistended, positive bowel sounds Skin: Positive generalized edema-mildly improved, warm and dry. Scrotal edema. Coccyx dressing clean dry and intact, right anterior kc scab. Microbiology 12/22/20 11:30 Blood Blood Culture - Final No Growth after 144 hours 12/22/20 11:20 Blood Blood Culture - Final No Growth after 144 hours 12/22/20 13:11 Sputum Gram Stain - Final 12/22/20 13:11 Sputum Sputum Culture - Final Klebsiella pneumoniae Enterobacter cloacae 12/22/20 16:57 Urine,Catheterized Urine Culture - Final - Labs CBC & Chem 7: 12/29/20 03:03 12/29/20 03:03 Labs: Abnormal Lab Results - Last 24 Hours (Table) 12/28/20 12/28/20 12/29/20 Range/Units 11:37 15:30 03:03 WBC 16.8 H (3.8-10.6) k/uL RBC 3.48 L (4.30-5.90) m/uL Hgb 8.4 L (13.0-17.5) gm/dL Hct 26.9 L (39.0-53.0) % MCV 77.1 L (80.0-100.0) fL MCH 24.0 L (25.0-35.0) pg RDW 24.0 H (11.5-15.5) % Neutrophils # (Manual) 13.20 H (1.3-7.7) k/uL Nucleated RBCs 1 H (0-0) /100 WBC ABG pH (7.35-7.45) ABG pCO2 (35-45) mmHg ABG pO2 (83-108) mmHg ABG HCO3 (21-25) mmol/L ABG Total CO2 (19-24) mmol/L Potassium 3.3 L (3.5-5.1) mmol/L Chloride (98-107) mmol/L BUN (9-20) mg/dL POC Glucose (mg/dL) 125 H (75-99) mg/dL Calcium (8.4-10.2) mg/dL AST (17-59) U/L Total Protein (6.3-8.2) g/dL Albumin (3.5-5.0) g/dL 12/29/20 12/29/20 Range/Units 03:03 05:37 WBC (3.8-10.6) k/uL RBC (4.30-5.90) m/uL Hgb (13.0-17.5) gm/dL Hct (39.0-53.0) % MCV (80.0-100.0) fL MCH (25.0-35.0) pg RDW (11.5-15.5) % Neutrophils # (Manual) (1.3-7.7) k/uL Nucleated RBCs (0-0) /100 WBC ABG pH 7.54 H (7.35-7.45) ABG pCO2 32 L (35-45) mmHg ABG pO2 72 L (83-108) mmHg ABG HCO3 27 H (21-25) mmol/L ABG Total CO2 28 H (19-24) mmol/L Potassium (3.5-5.1) mmol/L Chloride 109 H (98-107) mmol/L BUN 22 H (9-20) mg/dL POC Glucose (mg/dL) (75-99) mg/dL Calcium 7.5 L (8.4-10.2) mg/dL AST 15 L (17-59) U/L Total Protein 4.6 L (6.3-8.2) g/dL Albumin 2.0 L (3.5-5.0) g/dL Microbiology - Last 24 Hours (Table) 12/22/20 11:30 Blood Culture - Final Blood No Growth after 144 hours 12/22/20 11:20 Blood Culture - Final Blood No Growth after 144 hours Assessment and Plan Assessment: Acute on chronic hypoxic respiratory failure, mechanical ventilator-dependent, secondary to septic shock related to acute aspiration pneumonia with Klebsiella pneumoniae, Enterobacter Cloacae, possible acute UTI-follow cultures report no growth. Bilateral severe mastoiditis with bilateral ear infection suspected per CT Nonsustained V. 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 Former nicotine dependence Stage II sacrum-coccyx ulcer, present on admission Hypoalbuminemia Plan: Continue on current medication regime ,monitoring and symptomatic treatment. Tube feeds have been on hold since midnight, trach and peg scheduled for today .continue on Zosyn ,antiarrhythmics. Prognosis guarded given multiple complex medical issues. The impression and plan of care has been dictated as directed. : I performed a history and examination of this patient, discussed the same with the dictator. I agree with the dictator's note ,documented as a scribe. Any additional findings or plans will be noted.
--- NOTE | 2020-12-29 16:59 | PN ---
PROGRESS NOTE DATE OF SERVICE: 12/29/2020 REASON FOR FOLLOWUP: Gram-negative pneumonia. INTERVAL HISTORY: The patient is currently afebrile. The patient is hemodynamically stable. FiO2 is currently at 25%. No significant purulent secretion through the ET or diarrhea has been reported by nursing staff. PHYSICAL EXAMINATION: Blood pressure 104/54 with a pulse of 89, temperature 99.1. She is 97% on 25% FiO2. General description is an elderly male intubated on the vent. RESPIRATORY SYSTEM: Unlabored breathing with decreased breath sounds at the base. No wheeze. HEART: S1, S2. Regular rate and rhythm. ABDOMEN: Soft. No tenderness. LABS: White count 16.8 with a BUN of 22, creatinine 0.69. DIAGNOSTIC IMPRESSION AND PLAN: Patient with acute respiratory failure, multifactorial, in this patient who did have a component of pneumonia. Sputum has been klebsiella, enterobacter, covered with Zosyn. White count on an upward trend, more likely steroid-related. We will monitor closely. Continue supportive care. MMODL / IJN: [id number] /
[2020-12-29] MEDS: SODIUM CHLORIDE 0.9% 1,000 ML IV SCH (17:09)
[2020-12-29 18:22] LABS: Glucose,Whole Blood 100 mg/dL (75-99)
[2020-12-29 23:52] LABS: Glucose,Whole Blood 73 mg/dL (75-99)
[2020-12-30] MEDS: IPRATROPIUM-ALBUTEROL 3 ML NEB INHALATION SCH ×6 (00:27→21:35)
[2020-12-30 05:14] LABS: ABG Base Excess 1.1 mmol/L; ABG HCO3 24 mmol/L (21-25); ABG Oxygen Saturation 97.8 % (94-97); ABG PCO2 31 mmHg (35-45); ABG PH 7.51 (7.35-7.45); ABG PO2 87 mmHg (83-108); ABG TCO2 25 mmol/L (19-24); Allen Test Performed? Yes
[2020-12-30 05:29] LABS: Anisocytosis Moderate; Basophils % (A) 0 %; Eosinophils # (A) 0.1 k/uL (0-0.7); Eosinophils % (A) 1 %; HCT 25.8 % (39.0-53.0); HGB 7.7 gm/dL (13.0-17.5); Hypochromasia Marked; Lymphocytes # (A) 1.7 k/uL (1.0-4.8); Lymphocytes % (A) 11 %; MCH 23.7 pg (25.0-35.0); MCHC 29.9 g/dL (31.0-37.0); MCV 79.3 fL (80.0-100.0); Mean Platelet Volume 9.1; Microcytosis Moderate; Monocytes # (A) 0.4 k/uL (0-1.0); Monocytes % (A) 2 %; Neutrophils # (A) 13.7 k/uL (1.3-7.7); Neutrophils % (A) 86 %; Platelet Count 305 k/uL (150-450); RBC 3.25 m/uL (4.30-5.90); RDW 23.3 % (11.5-15.5); WBC 15.9 k/uL (3.8-10.6)
[2020-12-30 05:36] LABS: ALT <6 U/L (4-49); Alkaline Phosphatase 93 U/L (38-126); Magnesium 2.1 mg/dL (1.6-2.3); Potassium 3.1 mmol/L (3.5-5.1)
[2020-12-30] MEDS ORDERED: DEXTROSE 50% SYRINGE 50 ML IVP ONE (06:01)
[2020-12-30 06:02] LABS: Glucose,Whole Blood 53 mg/dL (75-99)
[2020-12-30] MEDS: INSULIN ASPART (NovoLOG) 100 UNIT/ML VIAL SQ SCH ×3 (06:08→17:42)
[2020-12-30 06:27] LABS: Glucose,Whole Blood 78 mg/dL (75-99)
[2020-12-30 06:32] LABS: AST 16 U/L (17-59); African American GFR (CKD) >90 (>60 ml/min/1.73 sqM); Albumin 1.8 g/dL (3.5-5.0); Anion Gap 9 mmol/L; Blood Urea Nitrogen 22 mg/dL (9-20); Calcium 7.4 mg/dL (8.4-10.2); Carbon Dioxide 24 mmol/L (22-30); Chloride 110 mmol/L (98-107); Glucose 61 mg/dL (74-99); Non-African American GFR(CKD) 87 (>60 ml/min/1.73 sqM); Sodium 143 mmol/L (137-145); Total Bilirubin 0.4 mg/dL (0.2-1.3); Total Protein 4.4 g/dL (6.3-8.2)
[2020-12-30] MEDS: POTASSIUM CHLORIDE 20 MEQ in WATER FOR INJECTION 1 100ML.BAG IVPB SCH ×2 (06:48→09:09)
[2020-12-30] MEDS ORDERED: POTASSIUM BICARBONATE/CIT AC 20 MEQ TABLET.EFF PO ONE (07:53)
[2020-12-30] MEDS: PIPERACILLIN-TAZOBACTAM 3.375 GM in SODIUM CHLORIDE 0.9% 100 ML IVPB SCH ×2 (09:10→16:12)
[2020-12-30] MEDS: PANTOPRAZOLE 40 MG/10 ML VIAL IV SCH (09:11)
[2020-12-30] MEDS: METOPROLOL TARTRATE 50 MG TAB PO SCH ×2 (09:11→20:33)
[2020-12-30] MEDS: CHLORHEXIDINE GLUCONATE 15 ML CUP MUCOUS MEM SCH ×2 (09:11→20:33)
[2020-12-30] MEDS: FUROSEMIDE 10 MG/ML 4 ML VIAL IV SCH (09:11)
[2020-12-30] MEDS: AMIODARONE 200 MG TAB PO SCH ×2 (09:11→20:33)
[2020-12-30] MEDS: HYDROCORTISONE SUCCINATE 100 MG/2 ML VIAL IV SCH (09:11)
[2020-12-30] MEDS: SODIUM BICARBONATE TAB 650 MG TAB PO SCH ×3 (09:12→20:33)
--- NOTE | 2020-12-30 10:21 | P.PN ---
Subjective Progress Note Date: 12/30/20 Principal diagnosis: Respiratory failure Patient doing well today. He underwent tracheostomy and PEG tube placement yesterday. T-max 99.6, white blood cell count 15.9, hemoglobin 7.7. Patient receiving tube feeds at 30 mL per hour. Objective - Vital Signs Vital signs: Vital Signs Temp 99.3 F 12/30/20 08:00 Pulse 98 12/30/20 10:00 Resp 29 H 12/30/20 10:00 BP 114/77 12/28/20 14:00 Pulse Ox 99 12/30/20 10:00 Intake & Output 12/29/20 12/30/20 12/30/20 18:59 06:59 18:59 Intake Total 727.905 471.508 329.337 Output Total 1015 300 220 Balance -287.095 171.508 109.337 Weight 69.4 kg 71.2 kg Intake: IV 578 451 92 Piperacillin-Tazobactam 3 125 175 .375 gm In Sodium Chloride 0.9% 100 ml @ 25 mls/hr IVPB Q8HR [facility] Rx# :[id number] Sodium Chloride 0.9% 1, 220 240 80 000 ml @ 20 mls/hr IV . Q24H [facility] Rx#:[id number] pressure bag 33 36 12 Intake, IV Titration 149.905 20.508 59.337 Amount propofoL 1,000 mg In 149.905 20.508 59.337 Empty Bag 1 bag @ Titrate IV .Q0M [facility]YA Rx#: [id number] Tube Feeding 148 Other 30 Output: Urine 1010 300 220 Estimated Blood Loss 5 Other: Voiding Method Indwelling Catheter Indwelling Catheter Indwelling Catheter ABP, PAP, CO, CI - Last Documented Arterial Blood Pressure 106/55 - Exam Tracheostomy site without bleeding Abdomen: Soft, nontender, nondistended, PEG tube in place - Labs CBC & Chem 7: 12/30/20 05:00 12/30/20 05:00 Labs: Abnormal Lab Results - Last 24 Hours (Table) 12/29/20 12/29/20 12/29/20 Range/Units 11:24 18:21 23:51 WBC (3.8-10.6) k/uL RBC (4.30-5.90) m/uL Hgb (13.0-17.5) gm/dL Hct (39.0-53.0) % MCV (80.0-100.0) fL MCH (25.0-35.0) pg MCHC (31.0-37.0) g/dL RDW (11.5-15.5) % Neutrophils # (1.3-7.7) k/uL ABG pH (7.35-7.45) ABG pCO2 (35-45) mmHg ABG Total CO2 (19-24) mmol/L ABG O2 Saturation (94-97) % Potassium (3.5-5.1) mmol/L Chloride (98-107) mmol/L BUN (9-20) mg/dL Glucose (74-99) mg/dL POC Glucose (mg/dL) 74 L 100 H 73 L (75-99) mg/dL Calcium (8.4-10.2) mg/dL AST (17-59) U/L Total Protein (6.3-8.2) g/dL Albumin (3.5-5.0) g/dL 12/30/20 12/30/20 12/30/20 Range/Units 05:00 05:00 05:10 WBC 15.9 H (3.8-10.6) k/uL RBC 3.25 L (4.30-5.90) m/uL Hgb 7.7 L (13.0-17.5) gm/dL Hct 25.8 L (39.0-53.0) % MCV 79.3 L (80.0-100.0) fL MCH 23.7 L (25.0-35.0) pg MCHC 29.9 L (31.0-37.0) g/dL RDW 23.3 H (11.5-15.5) % Neutrophils # 13.7 H (1.3-7.7) k/uL ABG pH 7.51 H (7.35-7.45) ABG pCO2 31 L (35-45) mmHg ABG Total CO2 25 H (19-24) mmol/L ABG O2 Saturation 97.8 H (94-97) % Potassium 3.1 L (3.5-5.1) mmol/L Chloride 110 H (98-107) mmol/L BUN 22 H (9-20) mg/dL Glucose 61 L (74-99) mg/dL POC Glucose (mg/dL) (75-99) mg/dL Calcium 7.4 L (8.4-10.2) mg/dL AST 16 L (17-59) U/L Total Protein 4.4 L (6.3-8.2) g/dL Albumin 1.8 L (3.5-5.0) g/dL 12/30/20 Range/Units 06:00 WBC (3.8-10.6) k/uL RBC (4.30-5.90) m/uL Hgb (13.0-17.5) gm/dL Hct (39.0-53.0) % MCV (80.0-100.0) fL MCH (25.0-35.0) pg MCHC (31.0-37.0) g/dL RDW (11.5-15.5) % Neutrophils # (1.3-7.7) k/uL ABG pH (7.35-7.45) ABG pCO2 (35-45) mmHg ABG Total CO2 (19-24) mmol/L ABG O2 Saturation (94-97) % Potassium (3.5-5.1) mmol/L Chloride (98-107) mmol/L BUN (9-20) mg/dL Glucose (74-99) mg/dL POC Glucose (mg/dL) 53 L (75-99) mg/dL Calcium (8.4-10.2) mg/dL AST (17-59) U/L Total Protein (6.3-8.2) g/dL Albumin (3.5-5.0) g/dL Assessment and Plan (1) COPD (chronic obstructive pulmonary disease) Narrative/Plan: Continue to monitor tracheostomy site. Continue advancing tube feeds up to goal. Current Visit: No Status: Chronic Code(s): J44.9 - CHRONIC OBSTRUCTIVE PULMONARY DISEASE, UNSPECIFIED SNOMED Code(s): 81512972
--- NOTE | 2020-12-30 10:35 | PN ---
PROGRESS NOTE Mr. Sanabria is a gentleman with CAD, respiratory failure, left above-knee amputation and in the ICU over the last 24-36 hours he has not had any ventricular or supraventricular ectopy. Prior to that he had short runs of SVT and also one run of ventricular tachycardia requiring electrical cardioversion. He is on a vent. Oxygenation is good at only 25% FiO2. He has had a trach and PEG yesterday. Urine output is fair. No further ectopy. Vital signs are stable. S1-S2 heard normally. Short systolic murmur at the base is audible. Lungs reveal fair air entry. Abdomen is soft. Lower extremity exam is unchanged. He has a left above-knee amputation. I am recommending that we continue current medications including oral amiodarone and I will reduce the dose of amiodarone in the next few days. We will continue current therapy. Prognosis remains guarded. MMODL / IJN: [id number] /
[2020-12-30 11:11] LABS: Glucose,Whole Blood 75 mg/dL (75-99)
--- NOTE | 2020-12-30 11:44 | XR ---
EXAMINATION TYPE: XR chest 1V portable DATE OF EXAM: 12/30/2020 COMPARISON: 12/29/2020 INDICATION: Line and tube placement TECHNIQUE: Single frontal view of the chest is obtained. FINDINGS: The heart size is normal. The pulmonary vasculature is normal. Bibasilar infiltrates are present. These are nonspecific and can be related to atypical pneumonia. Tracheostomy tube is in place with tip within the proximal trachea 4.6 cm above the tiffany. Endotrach eal tube and nasogastric tube have been removed. IMPRESSION: 1. Bibasilar infiltrates. 2. Placement of tracheostomy tube
--- NOTE | 2020-12-30 13:33 | P.PN ---
Subjective Progress Note Date: 12/30/20 Principal diagnosis: Respiratory failure. On 12/27/2020 patient seen in follow-up in the intensive care unit, yesterday he failed sedation holiday, patient became agitated, very tachypneic, however was not awake or following commands. Because of respiratory distress he was placed back on sedation, he was not given a spontaneous breathing trial. This might she remains intubated, sedated, he is on assist-control mode of ventilation with a rate of 28, tacrolimus 400, FiO2 of 25%, and PEEP of 5, this morning's blood gas shows pO2 of 68, pCO2 of 27, pH of 7.45, his IV fluid include 0.9 normal saline at 20 ML per hour, Diprivan and is a 60 mics per kilo per minute, and amiodarone is 0.5 mg/m. Today's chest x-ray shows worsening bibasilar infiltrates, possibility of early pulmonary edema could also be considered and there is prominent pulmonary vascular markings. Patient isn't positive fluid balance over the last 24 hours. Yesterday he received a dose of 60 mg of Lasix, he has produced 1.5 L in the urine output, he is generally swollen. He is tolerating tube feedings, he is receiving vital high-protein at 27 with a rate of 27. Antibiotic coverage includes Zosyn. Patient's family has been updated on plan seen with a tracheostomy and PEG tube placement however they declined, and we will reach out to them again today to update the patient's status. On 12/28/2000 patient seen in follow-up. 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 Patient remains on antibiotics, currently on Zosyn. Today's chest x-ray shows improving bibasilar infiltrates. Yesterday we put the patient on maintenance dose of IV Lasix 40 mg once daily and patient produced 1.5 L in urine output, however he is in positive fluid balance of 816 over the last 24 hours. Sputum cultures positive for Klebsiella pneumonia and Enterobacter claudicate, urine and blood cultures have shown no growth. His ventilator settings are assist control with a rate of 28, tidal volume 400, FiO2 of 25% and PEEP of 5, this morning his blood gases show pO2 of 73, pCO2 27, and pH of 7.53. Rest of lab work has been reviewed, showing white blood cell, 12.6, hemoglobin of 8.7, potassium is 3.1, chloride is 112, BUN is 22, creatinine 0.6. She is tolerating tube feedings, he receiving vital high-protein a rate of 27:27, yesterday we called the patient's however there was no answer, message was left but she never returned her call. The nursing staff reports that the daughter came in to see the patient, and was updated on patient's condition, and updated on the plan however she wanted to continue with full code, and she indicated that she does not want tracheostomy and PEG tube placement and she wanted to wait and see if there was any more improvement over the weekend. She does want to give him every chance to see if he improves. Dr. Tesfaye called the daughter on the phone today and discussed plan of care, and current condition, the daughter still on decided, she was to consult with the rest of the family, however does not want to proceed with tracheostomy and PEG tube placement, we explained to her that in order for the patient to possibly wean and make any progress tracheostomy and PEG tube placement would be in his best interest if she wants to give him every chance for improvement. The daughter wants to consult with the family and get back to us On 12/29/2020 patient seen in follow-up in intensive care unit, yesterday his sedation was held most of the day, patient was started to open eyes, and withdraw from pain but not really following any commands, towards the evening he did become more uncomfortable and tachypneic, he was placed back on sedation, currently he is on Diprivan at 30 mics per kilo per minute, 0.9 normal saline at a rate of 20 ML per hour, his tube feedings are on hold. He is on assist- control mode of ventilation with a rate of 28, tacrolimus 100, FiO2 is 25% and PEEP of 5, this morning his blood gases show pO2 of 72, pCO2 32, pH is 7.54. His in sinus mechanism on the monitor, his had no acute events overnight, he remains on Zosyn for evidence of Klebsiella pneumoniae and Enterobacter claudicate in the sputum cultures, urine and blood cultures have shown no growth. It have a low-grade fever early this morning with a temp of 100.3F, yesterday patient's family called back and they have decided to proceed with a tracheostomy and PEG tube placement, and patient is boarded for this afternoon with Dr. Serrano tube feedings have been on hold since midnight. Chest x-ray shows chronic parenchymal changes without suspicious focal airspace opacity or pneumothorax, with tiny bilateral pleural effusions. Today's labs have been reviewed, white blood cell count is 16.8, hemoglobin is 8.4, chloride is 109, the rest of the electrolytes and renal profile were unremarkable. Patient is a slightly positive fluid balance, +371, remains on a once daily dose of Lasix. Progress note dated 12/30/2020. 75-year-old male patient, who is been here in the intensive care unit now for a number of days. He remains on the mechanical ventilator. He is on the volume assist control mode, rate 28, tidal volume 400, FiO2 25%, and PEEP of 5. Arterial blood gases show a PaO2 of 87, PaCO2 of 31, and a pH of 7.51. These blood gases are consistent with a primary respiratory alkalosis. The patient did undergo a PEG tube placement, and tracheostomy tube placement, yesterday. The sputum is showing evidence of both Enterobacter, and Klebsiella, and for that, he is on Zosyn. The patient's also receiving saline at KVO, 20 mL an hour, propofol at 15 mcg/kg/m, and vital high protein at goal, which is 37 mL an hour. [facility], as the patient would be a transfer hopefully next week to the specialized nursing facility. White count 15.9, hemoglobin 7.7, hematocrit 25.8, and platelet count 305,000. Sodium is 143, potassium 3.1, chloride is 110, CO2 24, anion gap 9, BUN 22, and creatinine 0.85. Albumin 1.8. Chest x-ray continues to show bibasilar infiltrates. Tracheostomy tube is noted about 4-1/2 cm above the tiffany. Objective - Vital Signs Vital signs: Vital Signs Temp 98.8 F 12/30/20 12:00 Pulse 89 12/30/20 12:17 Resp 30 H 12/30/20 12:00 BP 98/66 12/30/20 12:00 Pulse Ox 100 12/30/20 12:00 Intake & Output 12/29/20 12/30/20 12/30/20 18:59 06:59 18:59 Intake Total 727.905 471.508 473.337 Output Total 1015 300 610 Balance -287.095 171.508 -136.663 Weight 69.4 kg 71.2 kg Intake: IV 578 451 132 Piperacillin-Tazobactam 3 125 175 .375 gm In Sodium Chloride 0.9% 100 ml @ 25 mls/hr IVPB Q8HR [facility] Rx# :[id number] Sodium Chloride 0.9% 1, 220 240 120 000 ml @ 20 mls/hr IV . Q24H [facility] Rx#:[id number] pressure bag 33 36 12 Intake, IV Titration 149.905 20.508 59.337 Amount propofoL 1,000 mg In 149.905 20.508 59.337 Empty Bag 1 bag @ Titrate IV .Q0M [facility] Rx#: [id number] Tube Feeding 222 Other 60 Output: Urine 1010 300 610 Estimated Blood Loss 5 Other: Voiding Method Indwelling Catheter Indwelling Catheter Indwelling Catheter ABP, PAP, CO, CI - Last Documented Arterial Blood Pressure 106/55 - Exam No acute distress, sedated, with a midline tracheostomy tube in place. HEENT examination is grossly unremarkable. Mucous membranes are moist. Neck supple. Full range of motion. No adenopathy thyromegaly or neck vein distention. Midline tracheostomy tube noted. Cardiovascular examination reveals regular rhythm rate. S1-S2 normal. No S3 or S4. No discernible murmur noted. Heart sounds distant. Heart rate 89 bpm. Lungs reveal bilateral coarse rhonchi. Breath sounds equal. No crackles. No wheezes. Abdomen soft bowel sounds are heard. No masses or tenderness. PEG tube noted. Extremities are intact. No cyanosis clubbing or edema. Left [id number] amp utation. Skin is without rash or lesion. Neurologic examination is difficult to assess given his current level of sedation. - Labs CBC & Chem 7: 12/30/20 05:00 12/30/20 05:00 Labs: Abnormal Lab Results - Last 24 Hours (Table) 12/29/20 12/29/20 12/30/20 Range/Units 18:21 23:51 05:00 WBC 15.9 H (3.8-10.6) k/uL RBC 3.25 L (4.30-5.90) m/uL Hgb 7.7 L (13.0-17.5) gm/dL Hct 25.8 L (39.0-53.0) % MCV 79.3 L (80.0-100.0) fL MCH 23.7 L (25.0-35.0) pg MCHC 29.9 L (31.0-37.0) g/dL RDW 23.3 H (11.5-15.5) % Neutrophils # 13.7 H (1.3-7.7) k/uL ABG pH (7.35-7.45) ABG pCO2 (35-45) mmHg ABG Total CO2 (19-24) mmol/L ABG O2 Saturation (94-97) % Potassium (3.5-5.1) mmol/L Chloride (98-107) mmol/L BUN (9-20) mg/dL Glucose (74-99) mg/dL POC Glucose (mg/dL) 100 H 73 L (75-99) mg/dL Calcium (8.4-10.2) mg/dL AST (17-59) U/L Total Protein (6.3-8.2) g/dL Albumin (3.5-5.0) g/dL 12/30/20 12/30/20 12/30/20 Range/Units 05:00 05:10 06:00 WBC (3.8-10.6) k/uL RBC (4.30-5.90) m/uL Hgb (13.0-17.5) gm/dL Hct (39.0-53.0) % MCV (80.0-100.0) fL MCH (25.0-35.0) pg MCHC (31.0-37.0) g/dL RDW (11.5-15.5) % Neutrophils # (1.3-7.7) k/uL ABG pH 7.51 H (7.35-7.45) ABG pCO2 31 L (35-45) mmHg ABG Total CO2 25 H (19-24) mmol/L ABG O2 Saturation 97.8 H (94-97) % Potassium 3.1 L (3.5-5.1) mmol/L Chloride 110 H (98-107) mmol/L BUN 22 H (9-20) mg/dL Glucose 61 L (74-99) mg/dL POC Glucose (mg/dL) 53 L (75-99) mg/dL Calcium 7.4 L (8.4-10.2) mg/dL AST 16 L (17-59) U/L Total Protein 4.4 L (6.3-8.2) g/dL Albumin 1.8 L (3.5-5.0) g/dL Assessment and Plan Assessment: #1. Acute hypoxic respiratory failure related to septic shock possibly related to acute urinary tract infection and gram-negative pneumonia, related to Klebsiella pneumoniae and Enterobacter cloacae requiring intubation and placement on mechanical ventilator on 12/22/2020, COVID 19 PCR was negative. #2. Acute urinary tract infection, urine culture has shown no growth. #3. Recent history of MSSA bacteremia in October 2020. #4. Previous history of recurrent sepsis and previous bacteremia. #5. History of left knee septic arthritis status post left xmwxq-joh-bemr amputation. #6. DM II. #7. History of COPD. #8. History of PE and DVT, on Xarelto. #9. History of coronary artery disease with previous stent placement. #10. Former nicotine dependence. #11. Anxiety/depression. #12. Chronic back pain with history of multiple compression fractures in his thoracic and lumbar spine at T12-L1, L3-L4. #13. Stage II on sacrum, present on admission. #14. Acute kidney injury secondary to sepsis and acute tubular necrosis with septic shock, resolved. #15. Acute lactic acidosis related to sepsis and septic shock, improved. #16. Acute encephalopathy, likely toxic metabolic. #17. Episode of SVT on 12/25/2020 requiring adenosine, he is currently in sinus mechanism. #18. Status post PEG tube placement and tracheostomy tube placement, on December 29. Plan: Plan dated 12/30/2020. Currently, the patient has been started back on tube feeds. He is currently at goal. The patient remains on Zosyn for his Enterobacter and Klebsiella infections. Arterial blood gases show a respiratory alkalosis. The patient is otherwise stable. [facility] has been consulted. Additional recommendations and suggestions are forthcoming. The patient was stable during the procedures yesterday. We will continue to attempt to wean the patient. Prognosis is guarded. We will continue to follow and make recommendations were appropriate. Time with Patient: Greater than 30
[2020-12-30] MEDS: SODIUM CHLORIDE 0.9% 1,000 ML IV SCH (13:36)
[2020-12-30 14:34] LABS: Glucose,Whole Blood 165 mg/dL (75-99)
--- NOTE | 2020-12-30 15:00 | P.PN ---
Subjective Progress Note Date: 12/30/20 Principal diagnosis: Ventilator dependent respiratory failure; status post tracheostomy/PEG placement Septic shock possibly related to acute urinary tract infection and gram-negative pneumonia, related to Klebsiella pneumoniae and Enterobacter cloacae requiring intubation and placement on mechanical ventilator on 12/22/2020 COVID 19 PCR negative. 12/30/2020 75-year-old male patient, evaluated in the intensive care unit with family at bedside. He remains on the mechanical ventilator. He is on the volume assist control mode The patient did undergo a PEG tube placement, and tracheostomy tube placement, yesterday. The sputum is showing evidence of both Enterobacter, and Klebsiella, and for that, he is on Zosyn. The patient's also receiving saline at KVO, 20 mL an hour, propofol at 15 mcg/kg/m, and vital high protein at goal, which is 37 mL an hour. Plan is for patient patient to transfer next week to the specialized nursing facility. White count 15.9, hemoglobin 7.7, hematocrit 25.8, and platelet count 305,000. Sodium is 143, potassium 3.1, chloride is 110, CO2 24, anion gap 9, BUN 22, and creatinine 0.85. Albumin 1.8. Chest x-ray continues to show bibasilar infiltrates. Tracheostomy tube is noted about 4-1/2 cm above the tiffany. Objective - Vital Signs Vital signs: Vital Signs Temp 99.3 F 12/30/20 08:00 Pulse 98 12/30/20 10:00 Resp 29 H 12/30/20 10:00 BP 114/77 12/28/20 14:00 Pulse Ox 99 12/30/20 10:00 Intake & Output 12/29/20 12/30/20 12/30/20 18:59 06:59 18:59 Intake Total 727.905 471.508 329.337 Output Total 1015 300 220 Balance -287.095 171.508 109.337 Weight 69.4 kg 71.2 kg Intake: IV 578 451 92 Piperacillin-Tazobactam 3 125 175 .375 gm In Sodium Chloride 0.9% 100 ml @ 25 mls/hr IVPB Q8HR [facility] Rx# :[id number] Sodium Chloride 0.9% 1, 220 240 80 000 ml @ 20 mls/hr IV . Q24H [facility] Rx#:[id number] pressure bag 33 36 12 Intake, IV Titration 149.905 20.508 59.337 Amount propofoL 1,000 mg In 149.905 20.508 59.337 Empty Bag 1 bag @ Titrate IV .Q0M [facility] Rx#: [id number] Tube Feeding 148 Other 30 Output: Urine 1010 300 220 Estimated Blood Loss 5 Other: Voiding Method Indwelling Catheter Indwelling Catheter Indwelling Catheter ABP, PAP, CO, CI - Last Documented Arterial Blood Pressure 106/55 - Exam General: Intubated, sedated. Vitals reviewed Lungs: coarse breath sounds, no wheezes or rales CV: Regular rate and rhythm, systolic murmur. Abdomen: soft, nondistended, positive bowel sounds Skin: Positive generalized edema-mildly improved, warm and dry. Scrotal edema. Coccyx dressing clean dry and intact, right anterior kc scab. - Labs CBC & Chem 7: 12/30/20 05:00 12/30/20 05:00 Labs: Abnormal Lab Results - Last 24 Hours (Table) 12/29/20 12/29/20 12/29/20 Range/Units 11:24 18:21 23:51 WBC (3.8-10.6) k/uL RBC (4.30-5.90) m/uL Hgb (13.0-17.5) gm/dL Hct (39.0-53.0) % MCV (80.0-100.0) fL MCH (25.0-35.0) pg MCHC (31.0-37.0) g/dL RDW (11.5-15.5) % Neutrophils # (1.3-7.7) k/uL ABG pH (7.35-7.45) ABG pCO2 (35-45) mmHg ABG Total CO2 (19-24) mmol/L ABG O2 Saturation (94-97) % Potassium (3.5-5.1) mmol/L Chloride (98-107) mmol/L BUN (9-20) mg/dL Glucose (74-99) mg/dL POC Glucose (mg/dL) 74 L 100 H 73 L (75-99) mg/dL Calcium (8.4-10.2) mg/dL AST (17-59) U/L Total Protein (6.3-8.2) g/dL Albumin (3.5-5.0) g/dL 12/30/20 12/30/20 12/30/20 Range/Units 05:00 05:00 05:10 WBC 15.9 H (3.8-10.6) k/uL RBC 3.25 L (4.30-5.90) m/uL Hgb 7.7 L (13.0-17.5) gm/dL Hct 25.8 L (39.0-53.0) % MCV 79.3 L (80.0-100.0) fL MCH 23.7 L (25.0-35.0) pg MCHC 29.9 L (31.0-37.0) g/dL RDW 23.3 H (11.5-15.5) % Neutrophils # 13.7 H (1.3-7.7) k/uL ABG pH 7.51 H (7.35-7.45) ABG pCO2 31 L (35-45) mmHg ABG Total CO2 25 H (19-24) mmol/L ABG O2 Saturation 97.8 H (94-97) % Potassium 3.1 L (3.5-5.1) mmol/L Chloride 110 H (98-107) mmol/L BUN 22 H (9-20) mg/dL Glucose 61 L (74-99) mg/dL POC Glucose (mg/dL) (75-99) mg/dL Calcium 7.4 L (8.4-10.2) mg/dL AST 16 L (17-59) U/L Total Protein 4.4 L (6.3-8.2) g/dL Albumin 1.8 L (3.5-5.0) g/dL 12/30/20 Range/Units 06:00 WBC (3.8-10.6) k/uL RBC (4.30-5.90) m/uL Hgb (13.0-17.5) gm/dL Hct (39.0-53.0) % MCV (80.0-100.0) fL MCH (25.0-35.0) pg MCHC (31.0-37.0) g/dL RDW (11.5-15.5) % Neutrophils # (1.3-7.7) k/uL ABG pH (7.35-7.45) ABG pCO2 (35-45) mmHg ABG Total CO2 (19-24) mmol/L ABG O2 Saturation (94-97) % Potassium (3.5-5.1) mmol/L Chloride (98-107) mmol/L BUN (9-20) mg/dL Glucose (74-99) mg/dL POC Glucose (mg/dL) 53 L (75-99) mg/dL Calcium (8.4-10.2) mg/dL AST (17-59) U/L Total Protein (6.3-8.2) g/dL Albumin (3.5-5.0) g/dL Assessment and Plan Assessment: Acute on chronic hypoxic respiratory failure, mechanical ventilator-dependent, secondary to septic shock related to acute aspiration pneumonia with Klebsiella pneumoniae, Enterobacter Cloacae, possible acute UTI-follow cultures report no growth. Bilateral severe mastoiditis with bilateral ear infection suspected per CT Nonsustained V. 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 Former nicotine dependence Stage II sacrum-coccyx ulcer, present on admission Hypoalbuminemia
[2020-12-30 17:36] LABS: Glucose,Whole Blood 182 mg/dL (75-99)
--- NOTE | 2020-12-30 17:36 | PN ---
PROGRESS NOTE DATE OF SERVICE: 12/30/2020. REASON FOR FOLLOWUP: Pneumonia. INTERVAL HISTORY: The patient is currently afebrile. Patient is hemodynamically stable. Not on any pressor support. The patient is status post tracheostomy yesterday. Vent setting, FiO2 stable at 25%. No purulent secretions through the ET or any diarrhea reported by nursing staff. PHYSICAL EXAMINATION: Blood pressure 116/68, pulse of 90, temperature 98, he is 99% on 25% FiO2. GENERAL DESCRIPTION: An elderly male lying in bed in no distress. RESPIRATORY SYSTEM: Unlabored breathing, decreased breath sounds at the bases, no wheeze. HEART: S1, S2. Regular rate and rhythm. ABDOMEN: Soft, no tenderness. LABS: Hemoglobin 10.1, white count 15.9, BUN 22, creatinine 0.85. DIAGNOSTIC IMPRESSION AND PLAN: Patient with acute respiratory failure which is multifactorial in this patient who did have component pneumonia, possible aspiration etiology. Sputum has been Klebsiella and the patient is covered with Zosyn. The patient to be extubated and is status post trach. On Zosyn to continue. at the bedside. Questions were answered. MMODL / IJN: [id number] /
[2020-12-30] MEDS: MORPHINE SULFATE 2 MG/ML SYRINGE IV PRN (20:33)
[2020-12-30 23:44] LABS: Glucose,Whole Blood 111 mg/dL (75-99)
[2020-12-31] MEDS: IPRATROPIUM-ALBUTEROL 3 ML NEB INHALATION SCH ×7 (00:01→23:05)
[2020-12-31] MEDS: PIPERACILLIN-TAZOBACTAM 3.375 GM in SODIUM CHLORIDE 0.9% 100 ML IVPB SCH ×4 (00:03→23:08)
[2020-12-31 04:03] LABS: Anisocytosis Moderate; Basophils % (A) 0 %; Eosinophils # (A) 0.1 k/uL (0-0.7); Eosinophils % (A) 1 %; HCT 26.8 % (39.0-53.0); Hypochromasia Marked; Lymphocytes # (A) 2.5 k/uL (1.0-4.8); Lymphocytes % (A) 15 %; MCH 23.9 pg (25.0-35.0); MCHC 29.9 g/dL (31.0-37.0); MCV 79.9 fL (80.0-100.0); Microcytosis Moderate; Monocytes # (A) 0.4 k/uL (0-1.0); Monocytes % (A) 3 %; Neutrophils # (A) 12.9 k/uL (1.3-7.7); Neutrophils % (A) 80 %; Platelet Count 306 k/uL (150-450); RBC 3.36 m/uL (4.30-5.90); RDW 23.2 % (11.5-15.5); WBC 16.1 k/uL (3.8-10.6)
[2020-12-31] MEDS: INSULIN ASPART (NovoLOG) 100 UNIT/ML VIAL SQ SCH ×5 (04:06→23:25)
[2020-12-31] MEDS: MORPHINE SULFATE 2 MG/ML SYRINGE IV PRN (04:06)
[2020-12-31 04:13] LABS: ALT <6 U/L (4-49); AST 17 U/L (17-59); African American GFR (CKD) >90 (>60 ml/min/1.73 sqM); Alkaline Phosphatase 91 U/L (38-126); Anion Gap 7 mmol/L; Blood Urea Nitrogen 26 mg/dL (9-20); Calcium 7.5 mg/dL (8.4-10.2); Carbon Dioxide 24 mmol/L (22-30); Chloride 113 mmol/L (98-107); Glucose 139 mg/dL (74-99); Non-African American GFR(CKD) >90 (>60 ml/min/1.73 sqM); Potassium 3.1 mmol/L (3.5-5.1); Sodium 144 mmol/L (137-145); Total Bilirubin 0.3 mg/dL (0.2-1.3); Total Protein 4.7 g/dL (6.3-8.2)
[2020-12-31 05:23] LABS: ABG Base Excess 5.9 mmol/L; ABG HCO3 28 mmol/L (21-25); ABG Oxygen Saturation 96.9 % (94-97); ABG PCO2 33 mmHg (35-45); ABG PH 7.55 (7.35-7.45); ABG PO2 76 mmHg (83-108); ABG TCO2 29 mmol/L (19-24); Allen Test Performed? Yes
[2020-12-31 06:01] LABS: Glucose,Whole Blood 142 mg/dL (75-99)
[2020-12-31] MEDS ORDERED: POTASSIUM CHLORIDE 20 MEQ in WATER FOR INJECTION 1 100ML.BAG IVPB SCH (07:15)
[2020-12-31] MEDS: POTASSIUM BICARBONATE/CIT AC 20 MEQ TABLET.EFF PO SCH ×3 (07:30→10:29)
--- NOTE | 2020-12-31 07:35 | PN ---
PROGRESS NOTE Mr. Sanabria remains in sinus rhythm with occasional PACs. There is no evidence of any ventricular arrhythmia or paroxysmal atrial tachycardia. He is hemodynamically stable, still on a vent. Making limited amount of urine. Patient has history of CAD, prior PTCA of RCA, left above-knee amputation. He has a lot of comorbid conditions. Vital however are stable today, S1-S2 heard normally. Short systolic murmur noted. Lungs reveal diminished air entry. Abdomen is soft. Rest of physical exam unchanged. I am recommending that we decrease his amiodarone to 200 mg b.i.d. and see how he does. MMODL / IJN: [id number] /
[2020-12-31] MEDS: FUROSEMIDE 10 MG/ML 4 ML VIAL IV SCH (08:02)
[2020-12-31] MEDS: HYDROCORTISONE SUCCINATE 100 MG/2 ML VIAL IV SCH (08:02)
[2020-12-31] MEDS: CHLORHEXIDINE GLUCONATE 15 ML CUP MUCOUS MEM SCH ×2 (08:02→19:42)
[2020-12-31] MEDS: AMIODARONE 200 MG TAB PO SCH ×2 (08:02→19:42)
[2020-12-31] MEDS: PANTOPRAZOLE 40 MG/10 ML VIAL IV SCH (08:03)
[2020-12-31] MEDS: SODIUM BICARBONATE TAB 650 MG TAB PO SCH ×3 (08:03→19:41)
[2020-12-31] MEDS: METOPROLOL TARTRATE 50 MG TAB PO SCH ×2 (08:03→19:41)
--- NOTE | 2020-12-31 10:25 | P.PN ---
Subjective Progress Note Date: 12/31/20 Principal diagnosis: Respiratory failure Patient remains on the ventilator. No issues overnight. Tolerating tube feeds at 37 mL per hour. White blood cell count today 16.1, hemoglobin 8.0. Objective - Vital Signs Vital signs: Vital Signs Temp 99.6 F 12/31/20 08:00 Pulse 85 12/31/20 10:00 Resp 28 H 12/31/20 10:00 BP 94/64 12/31/20 10:00 Pulse Ox 97 12/31/20 10:00 Intake & Output 12/30/20 12/31/20 12/31/20 18:59 06:59 18:59 Intake Total 1002.902 946.197 373.166 Output Total 1030 295 215 Balance -27.098 651.197 158.166 Weight 68.6 kg Intake: IV 352 340 180 Piperacillin-Tazobactam 3 100 100 100 .375 gm In Sodium Chloride 0.9% 100 ml @ 25 mls/hr IVPB Q8HR [facility] Rx# :[id number] Sodium Chloride 0.9% 1, 240 240 80 000 ml @ 20 mls/hr IV . Q24H [facility] Rx#:[id number] pressure bag 12 Intake, IV Titration 116.902 72.197 15.166 Amount propofoL 1,000 mg In 116.902 72.197 15.166 Empty Bag 1 bag @ Titrate IV .Q0M [facility] Rx#: [id number] Tube Feeding 444 444 148 Other 90 90 30 Output: Urine 1030 295 215 Other: Voiding Method Indwelling Catheter Indwelling Catheter Indwelling Catheter # Bowel Movements 1 ABP, PAP, CO, CI - Last Documented Arterial Blood Pressure 106/55 - Exam Tracheostomy site without bleeding Abdomen: Soft, nontender, nondistended, PEG tube in place - Labs CBC & Chem 7: 12/31/20 03:38 12/31/20 03:38 Labs: Abnormal Lab Results - Last 24 Hours (Table) 12/30/20 12/30/20 12/30/20 Range/Units 14:32 17:34 23:40 WBC (3.8-10.6) k/uL RBC (4.30-5.90) m/uL Hgb (13.0-17.5) gm/dL Hct (39.0-53.0) % MCV (80.0-100.0) fL MCH (25.0-35.0) pg MCHC (31.0-37.0) g/dL RDW (11.5-15.5) % Neutrophils # (1.3-7.7) k/uL ABG pH (7.35-7.45) ABG pCO2 (35-45) mmHg ABG pO2 (83-108) mmHg ABG HCO3 (21-25) mmol/L ABG Total CO2 (19-24) mmol/L Potassium (3.5-5.1) mmol/L Chloride (98-107) mmol/L BUN (9-20) mg/dL Glucose (74-99) mg/dL POC Glucose (mg/dL) 165 H 182 H 111 H (75-99) mg/dL Calcium (8.4-10.2) mg/dL Total Protein (6.3-8.2) g/dL Albumin (3.5-5.0) g/dL 12/31/20 12/31/20 12/31/20 Range/Units 03:38 03:38 05:18 WBC 16.1 H (3.8-10.6) k/uL RBC 3.36 L (4.30-5.90) m/uL Hgb 8.0 L (13.0-17.5) gm/dL Hct 26.8 L (39.0-53.0) % MCV 79.9 L (80.0-100.0) fL MCH 23.9 L (25.0-35.0) pg MCHC 29.9 L (31.0-37.0) g/dL RDW 23.2 H (11.5-15.5) % Neutrophils # 12.9 H (1.3-7.7) k/uL ABG pH 7.55 H (7.35-7.45) ABG pCO2 33 L (35-45) mmHg ABG pO2 76 L (83-108) mmHg ABG HCO3 28 H (21-25) mmol/L ABG Total CO2 29 H (19-24) mmol/L Potassium 3.1 L (3.5-5.1) mmol/L Chloride 113 H (98-107) mmol/L BUN 26 H (9-20) mg/dL Glucose 139 H (74-99) mg/dL POC Glucose (mg/dL) (75-99) mg/dL Calcium 7.5 L (8.4-10.2) mg/dL Total Protein 4.7 L (6.3-8.2) g/dL Albumin 2.0 L (3.5-5.0) g/dL 12/31/20 Range/Units 05:59 WBC (3.8-10.6) k/uL RBC (4.30-5.90) m/uL Hgb (13.0-17.5) gm/dL Hct (39.0-53.0) % MCV (80.0-100.0) fL MCH (25.0-35.0) pg MCHC (31.0-37.0) g/dL RDW (11.5-15.5) % Neutrophils # (1.3-7.7) k/uL ABG pH (7.35-7.45) ABG pCO2 (35-45) mmHg ABG pO2 (83-108) mmHg ABG HCO3 (21-25) mmol/L ABG Total CO2 (19-24) mmol/L Potassium (3.5-5.1) mmol/L Chloride (98-107) mmol/L BUN (9-20) mg/dL Glucose (74-99) mg/dL POC Glucose (mg/dL) 142 H (75-99) mg/dL Calcium (8.4-10.2) mg/dL Total Protein (6.3-8.2) g/dL Albumin (3.5-5.0) g/dL Microbiology - Last 24 Hours (Table) 12/30/20 10:43 Catheter Tip Culture - Preliminary Catheter Tip Assessment and Plan (1) COPD (chronic obstructive pulmonary disease) Narrative/Plan: Continue tube feeds at goal. Continue tracheostomy care. Pulmonary weaning. Current Visit: No Status: Chronic Code(s): J44.9 - CHRONIC OBSTRUCTIVE P ULMONARY DISEASE, UNSPECIFIED SNOMED Code(s): 02836332
--- NOTE | 2020-12-31 10:49 | XR ---
EXAMINATION TYPE: XR chest 1V portable DATE OF EXAM: 12/31/2020 COMPARISON: 01/09/2021 INDICATION: Tube placement TECHNIQUE: Single frontal view of the chest is obtained. FINDINGS: The heart size is normal. The pulmonary vasculature is normal. Mild left lower lobe infiltrate is present. There is improvement of the right lower lobe infiltrate. Tracheostomy is in the midline. IMPRESSION: 1. Improving right lower lobe infiltrate. 2. Stable left lower lobe infiltrate. 3. Tracheostomy tube is in the midline
[2020-12-31 11:07] LABS: Glucose,Whole Blood 157 mg/dL (75-99)
--- NOTE | 2020-12-31 12:58 | P.PN ---
Subjective Progress Note Date: 12/31/20 Principal diagnosis: Respiratory failure. On 12/27/2020 patient seen in follow-up in the intensive care unit, yesterday he failed sedation holiday, patient became agitated, very tachypneic, however was not awake or following commands. Because of respiratory distress he was placed back on sedation, he was not given a spontaneous breathing trial. This might she remains intubated, sedated, he is on assist-control mode of ventilation with a rate of 28, tacrolimus 400, FiO2 of 25%, and PEEP of 5, this morning's blood gas shows pO2 of 68, pCO2 of 27, pH of 7.45, his IV fluid include 0.9 normal saline at 20 ML per hour, Diprivan and is a 60 mics per kilo per minute, and amiodarone is 0.5 mg/m. Today's chest x-ray shows worsening bibasilar infiltrates, possibility of early pulmonary edema could also be considered and there is prominent pulmonary vascular markings. Patient isn't positive fluid balance over the last 24 hours. Yesterday he received a dose of 60 mg of Lasix, he has produced 1.5 L in the urine output, he is generally swollen. He is tolerating tube feedings, he is receiving vital high-protein at 27 with a rate of 27. Antibiotic coverage includes Zosyn. Patient's family has been updated on plan seen with a tracheostomy and PEG tube placement however they declined, and we will reach out to them again today to update the patient's status. On 12/28/2000 patient seen in follow-up. 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 Patient remains on antibiotics, currently on Zosyn. Today's chest x-ray shows improving bibasilar infiltrates. Yesterday we put the patient on maintenance dose of IV Lasix 40 mg once daily and patient produced 1.5 L in urine output, however he is in positive fluid balance of 816 over the last 24 hours. Sputum cultures positive for Klebsiella pneumonia and Enterobacter claudicate, urine and blood cultures have shown no growth. His ventilator settings are assist control with a rate of 28, tidal volume 400, FiO2 of 25% and PEEP of 5, this morning his blood gases show pO2 of 73, pCO2 27, and pH of 7.53. Rest of lab work has been reviewed, showing white blood cell, 12.6, hemoglobin of 8.7, potassium is 3.1, chloride is 112, BUN is 22, creatinine 0.6. She is tolerating tube feedings, he receiving vital high-protein a rate of 27:27, yesterday we called the patient's however there was no answer, message was left but she never returned her call. The nursing staff reports that the daughter came in to see the patient, and was updated on patient's condition, and updated on the plan however she wanted to continue with full code, and she indicated that she does not want tracheostomy and PEG tube placement and she wanted to wait and see if there was any more improvement over the weekend. She does want to give him every chance to see if he improves. Dr. Tesfaye called the daughter on the phone today and discussed plan of care, and current condition, the daughter still on decided, she was to consult with the rest of the family, however does not want to proceed with tracheostomy and PEG tube placement, we explained to her that in order for the patient to possibly wean and make any progress tracheostomy and PEG tube placement would be in his best interest if she wants to give him every chance for improvement. The daughter wants to consult with the family and get back to us On 12/29/2020 patient seen in follow-up in intensive care unit, yesterday his sedation was held most of the day, patient was started to open eyes, and withdraw from pain but not really following any commands, towards the evening he did become more uncomfortable and tachypneic, he was placed back on sedation, currently he is on Diprivan at 30 mics per kilo per minute, 0.9 normal saline at a rate of 20 ML per hour, his tube feedings are on hold. He is on assist- control mode of ventilation with a rate of 28, tacrolimus 100, FiO2 is 25% and PEEP of 5, this morning his blood gases show pO2 of 72, pCO2 32, pH is 7.54. His in sinus mechanism on the monitor, his had no acute events overnight, he remains on Zosyn for evidence of Klebsiella pneumoniae and Enterobacter claudicate in the sputum cultures, urine and blood cultures have shown no growth. It have a low-grade fever early this morning with a temp of 100.3F, yesterday patient's family called back and they have decided to proceed with a tracheostomy and PEG tube placement, and patient is boarded for this afternoon with Dr. Serrano tube feedings have been on hold since midnight. Chest x-ray shows chronic parenchymal changes without suspicious focal airspace opacity or pneumothorax, with tiny bilateral pleural effusions. Today's labs have been reviewed, white blood cell count is 16.8, hemoglobin is 8.4, chloride is 109, the rest of the electrolytes and renal profile were unremarkable. Patient is a slightly positive fluid balance, +371, remains on a once daily dose of Lasix. Progress note dated 12/30/2020. 75-year-old male patient, who is been here in the intensive care unit now for a number of days. He remains on the mechanical ventilator. He is on the volume assist control mode, rate 28, tidal volume 400, FiO2 25%, and PEEP of 5. Arterial blood gases show a PaO2 of 87, PaCO2 of 31, and a pH of 7.51. These blood gases are consistent with a primary respiratory alkalosis. The patient did undergo a PEG tube placement, and tracheostomy tube placement, yesterday. The sputum is showing evidence of both Enterobacter, and Klebsiella, and for that, he is on Zosyn. The patient's also receiving saline at KVO, 20 mL an hour, propofol at 15 mcg/kg/m, and vital high protein at goal, which is 37 mL an hour. [facility], as the patient would be a transfer hopefully next week to the specialized nursing facility. White count 15.9, hemoglobin 7.7, hematocrit 25.8, and platelet count 305,000. Sodium is 143, potassium 3.1, chloride is 110, CO2 24, anion gap 9, BUN 22, and creatinine 0.85. Albumin 1.8. Chest x-ray continues to show bibasilar infiltrates. Tracheostomy tube is noted about 4-1/2 cm above the tiffany. Progress note dated 12/31/2020. 75-year-old male, who is been here in the intensive care unit, for a number of days. He remains on the mechanical ventilator. The patient did get a PEG tube placed, and tracheostomy tube, on Friday. This was December 29. Currently, he remains on the volume assist control mode, rate 28, tidal volume 400, FiO2 25%, and PEEP of 5. Arterial blood gases show a PaO2 of 76, PaCO2 of 33, and a pH is 7.55. The patient has a combined respiratory and metabolic alkalosis, in part related to her underlying hypokalemia. She remains on saline at 20 mL an hour, propofol, at 15 mcg/kg/m. In addition, she is getting vital high protein at 37 cc per hour, which is goal. Currently, white count 16.1, hemoglobin 8, hematocrit 26.8, and platelet count 306,000. Sodium 144, potassium 3.1, chloride 113, CO2 24, anion gap 7, BUN 26, and creatinine 0.72. Albumin is 2. Sputum samples from December 22 were positive for Klebsiella pneumoniae and Enterobacter cloacae. Chest x-ray shows a stable left lower lobe infiltrate, and improving right lower lobe infiltrate. The patient remains on Zosyn. Objective - Vital Signs Vital signs: Vital Signs Temp 100.0 F H 12/31/20 12:00 Pulse 96 12/31/20 12:14 Resp 28 H 12/31/20 12:00 BP 103/70 12/31/20 12:00 Pulse Ox 96 12/31/20 12:00 Intake & Output 12/30/20 12/31/20 12/31/20 18:59 06:59 18:59 Intake Total 1002.902 946.197 517.166 Output Total 1030 295 395 Balance -27.098 651.197 122.166 Weight 68.6 kg Intake: IV 352 340 220 Piperacillin-Tazobactam 3 100 100 100 .375 gm In Sodium Chloride 0.9% 100 ml @ 25 mls/hr IVPB Q8HR [facility] Rx# :[id number] Sodium Chloride 0.9% 1, 240 240 120 000 ml @ 20 mls/hr IV . Q24H [facility] Rx#:[id number] pressure bag 12 Intake, IV Titration 116.902 72.197 15.166 Amount propofoL 1,000 mg In 116.902 72.197 15.166 Empty Bag 1 bag @ Titrate IV .Q0M [facility] Rx#: [id number] Tube Feeding 444 444 222 Other 90 90 60 Output: Urine 1030 295 395 Other: Voiding Method Indwelling Catheter Indwelling Catheter Indwelling Catheter # Bowel Movements 1 ABP, PAP, CO, CI - Last Documented Arterial Blood Pressure 106/55 - Exam No acute distress, sedated, with a midline tracheostomy tube in place. HEENT examination is grossly unremarkable. Mucous membranes are moist. Neck supple. Full range of motion. No adenopathy thyromegaly or neck vein distention. Midline tracheostomy tube noted. Cardiovascular examination reveals regular rhythm rate. S1-S2 normal. No S3 or S4. No discernible murmur noted. Heart sounds distant. Heart rate 96 bpm. Lungs reveal bilateral coarse rhonchi. Breath sounds equal. No crackles. No wheezes. Breath sounds are essentially unchanged. Abdomen soft bowel sounds are heard. No masses or tenderness. PEG tube noted. Extremities are intact. No cyanosis clubbing or edema. Left [id number] amputation. Skin is without rash or lesion. Neurologic examination is difficult to assess given his current level of sedation. - Labs CBC & Chem 7: 12/31/20 03:38 12/31/20 03:38 Labs: Abnormal Lab Results - Last 24 Hours (Table) 12/30/20 12/30/20 12/30/20 Range/Units 14:32 17:34 23:40 WBC (3.8-10.6) k/uL RBC (4.30-5.90) m/uL Hgb (13.0-17.5) gm/dL Hct (39.0-53.0) % MCV (80.0-100.0) fL MCH (25.0-35.0) pg MCHC (31.0-37.0) g/dL RDW (11.5-15.5) % Neutrophils # (1.3-7.7) k/uL ABG pH (7.35-7.45) ABG pCO2 (35-45) mmHg ABG pO2 (83-108) mmHg ABG HCO3 (21-25) mmol/L ABG Total CO2 (19-24) mmol/L Potassium (3.5-5.1) mmol/L Chloride (98-107) mmol/L BUN (9-20) mg/dL Glucose (74-99) mg/dL POC Glucose (mg/dL) 165 H 182 H 111 H (75-99) mg/dL Calcium (8.4-10.2) mg/dL Total Protein (6.3-8.2) g/dL Albumin (3.5-5.0) g/dL 12/31/20 12/31/20 12/31/20 Range/Units 03:38 03:38 05:18 WBC 16.1 H (3.8-10.6) k/uL RBC 3.36 L (4.30-5.90) m/uL Hgb 8.0 L (13.0-17.5) gm/dL Hct 26.8 L (39.0-53.0) % MCV 79.9 L (80.0-100.0) fL MCH 23.9 L (25.0-35.0) pg MCHC 29.9 L (31.0-37.0) g/dL RDW 23.2 H (11.5-15.5) % Neutrophils # 12.9 H (1.3-7.7) k/uL ABG pH 7.55 H (7.35-7.45) ABG pCO2 33 L (35-45) mmHg ABG pO2 76 L (83-108) mmHg ABG HCO3 28 H (21-25) mmol/L ABG Total CO2 29 H (19-24) mmol/L Potassium 3.1 L (3.5-5.1) mmol/L Chloride 113 H (98-107) mmol/L BUN 26 H (9-20) mg/dL Glucose 139 H (74-99) mg/dL POC Glucose (mg/dL) (75-99) mg/dL Calcium 7.5 L (8.4-10.2) mg/dL Total Protein 4.7 L (6.3-8.2) g/dL Albumin 2.0 L (3.5-5.0) g/dL 12/31/20 12/31/20 Range/Units 05:59 11:05 WBC (3.8-10.6) k/uL RBC (4.30-5.90) m/uL Hgb (13.0-17.5) gm/dL Hct (39.0-53.0) % MCV (80.0-100.0) fL MCH (25.0-35.0) pg MCHC (31.0-37.0) g/dL RDW (11.5-15.5) % Neutrophils # (1.3-7.7) k/uL ABG pH (7.35-7.45) ABG pCO2 (35-45) mmHg ABG pO2 (83-108) mmHg ABG HCO3 (21-25) mmol/L ABG Total CO2 (19-24) mmol/L Potassium (3.5-5.1) mmol/L Chloride (98-107) mmol/L BUN (9-20) mg/dL Glucose (74-99) mg/dL POC Glucose (mg/dL) 142 H 157 H (75-99) mg/dL Calcium (8.4-10.2) mg/dL Total Protein (6.3-8.2) g/dL Albumin (3.5-5.0) g/dL Microbiology - Last 24 Hours (Table) 12/30/20 10:43 Catheter Tip Culture - Preliminary Catheter Tip Assessment and Plan Assessment: #1. Acute hypoxic respiratory failure related to septic shock possibly related to acute urinary tract infection and gram-negative pneumonia, related to Klebsiella pneumoniae and Enterobacter cloacae requiring intubation and placement on mechanical ventilator on 12/22/2020, COVID 19 PCR was negative. #2. Acute urinary tract infection, urine culture has shown no growth. #3. Recent history of MSSA bacteremia in October 2020. #4. Previous history of recurrent sepsis and previous bacteremia. #5. History of left knee septic arthritis status post left tnerc-bnz-wnli amputation. #6. DM II. #7. History of COPD. #8. History of PE and DVT, on Xarelto. #9. History of coronary artery disease with previous stent placement. #10. Former nicotine dependence. #11. Anxiety/depression. #12. Chronic back pain with history of multiple compression fractures in his thoracic and lumbar spine at T12-L1, L3-L4. #13. Stage II on sacrum, present on admission. #14. Acute kidney injury secondary to sepsis and acute tubular necrosis with septic shock, resolved. #15. Acute lactic acidosis related to sepsis and septic shock, improved. #16. Acute encephalopathy, likely toxic metabolic. #17. Episode of SVT on 12/25/2020 requiring adenosine, he is currently in sinus mechanism. #18. Status post PEG tube placement and tracheostomy tube placement, on December 29. Plan: Plan dated 12/31/2020. Currently, the patient has been started back on tube feeds. He is currently at goal. The patient remains on Zosyn for his Enterobacter and Klebsiella infections. Arterial blood gases show a respiratory alkalosis. The patient is otherwise stable. [facility] and we have asked the nurse to discontinue the propofol. The patient could not be transferred to the long-term acute care facility on this medication. We will continue to follow along. Prognosis is guarded. It turns out that one of the sons apparently is considering hospice consultation. This is a new development. Long-term prognosis is poor. Time with Patient: Greater than 30
[2020-12-31] MEDS: SODIUM CHLORIDE 0.9% 1,000 ML IV SCH (13:22)
[2020-12-31] MEDS ORDERED: Potassium Replacement Protocol 1 EACH MISC MISCELLANE PRN (14:13)
--- NOTE | 2020-12-31 14:37 | P.PN ---
Subjective Progress Note Date: 12/31/20 Principal diagnosis: Ventilator dependent respiratory failure; status post tracheostomy/PEG placement Septic shock possibly related to acute urinary tract infection and gram-negative pneumonia, related to Klebsiella pneumoniae and Enterobacter cloacae requiring intubation and placement on mechanical ventilator on 12/22/2020 COVID 19 PCR negative. 12/30/2020 75-year-old male patient, evaluated in the intensive care unit with family at bedside. He remains on the mechanical ventilator. He is on the volume assist control mode The patient did undergo a PEG tube placement, and tracheostomy tube placement, yesterday. The sputum is showing evidence of both Enterobacter, and Klebsiella, and for that, he is on Zosyn. The patient's also receiving saline at KVO, 20 mL an hour, propofol at 15 mcg/kg/m, and vital high protein at goal, which is 37 mL an hour. Plan is for patient patient to transfer next week to the specialized nursing facility. White count 15.9, hemoglobin 7.7, hematocrit 25.8, and platelet count 305,000. Sodium is 143, potassium 3.1, chloride is 110, CO2 24, anion gap 9, BUN 22, and creatinine 0.85. Albumin 1.8. Chest x-ray continues to show bibasilar infiltrates. Tracheostomy tube is noted about 4-1/2 cm above the tiffany. 12/31/2020 Patient is seen and evaluated in room with nursing staff and son at bedside; patient's family is somewhat inclining towards taking patient home with hospice; hospice consult is placed remains on the mechanical ventilator. The patient did get a PEG tube placed, and tracheostomy tube, on Friday. This was December 29. Currently, he remains on the volume assist control mode; The patient has a combined respiratory and metabolic alkalosis, in part related to her underlying hypokalemia. She remains on saline at 20 mL an hour, propofol, at 15 mcg/kg/m. In addition, she is getting vital high protein at 37 cc per hour, which is goal. Currently, white count 16.1, hemoglobin 8, hematocrit 26.8, and platelet count 306,000. Sodium 144, potassium 3.1, chloride 113, CO2 24, anion gap 7, BUN 26, and creatinine 0.72. Albumin is 2. Sputum samples from December 22 were positive for Klebsiella pneumoniae and Enterobacter cloacae. Chest x-ray shows a stable left lower lobe infiltrate, and improving right lower lobe infiltrate. The patient remains on Zosyn. Objective - Vital Signs Vital signs: Vital Signs Temp 99.6 F 12/31/20 08:00 Pulse 85 12/31/20 10:00 Resp 28 H 12/31/20 10:00 BP 94/64 12/31/20 10:00 Pulse Ox 97 12/31/20 10:00 Intake & Output 12/30/20 12/31/20 12/31/20 18:59 06:59 18:59 Intake Total 1002.902 946.197 316.166 Output Total 1030 295 105 Balance -27.098 651.197 211.166 Weight 68.6 kg Intake: IV 352 340 160 Piperacillin-Tazobactam 3 100 100 100 .375 gm In Sodium Chloride 0.9% 100 ml @ 25 mls/hr IVPB Q8HR [facility] Rx# :[id number] Sodium Chloride 0.9% 1, 240 240 60 000 ml @ 20 mls/hr IV . Q24H [facility] Rx#:[id number] pressure bag 12 Intake, IV Titration 116.902 72.197 15.166 Amount propofoL 1,000 mg In 116.902 72.197 15.166 Empty Bag 1 bag @ Titrate IV .Q0M [facility] Rx#: [id number] Tube Feeding 444 444 111 Other 90 90 30 Output: Urine 1030 295 105 Other: Voiding Method Indwelling Catheter Indwelling Catheter Indwelling Catheter # Bowel Movements 1 ABP, PAP, CO, CI - Last Documented Arterial Blood Pressure 106/55 - Exam General: Intubated, sedated. Vitals reviewed Lungs: coarse breath sounds, no wheezes or rales CV: Regular rate and rhythm, systolic murmur. Abdomen: soft, nondistended, positive bowel sounds Skin: Positive generalized edema-mildly improved, warm and dry. Scrotal edema. Coccyx dressing clean dry and intact, right anterior kc scab. - Labs CBC & Chem 7: 12/31/20 03:38 12/31/20 13:03 Labs: Abnormal Lab Results - Last 24 Hours (Table) 12/30/20 12/30/20 12/30/20 Range/Units 14:32 17:34 23:40 WBC (3.8-10.6) k/uL RBC (4.30-5.90) m/uL Hgb (13.0-17.5) gm/dL Hct (39.0-53.0) % MCV (80.0-100.0) fL MCH (25.0-35.0) pg MCHC (31.0-37.0) g/dL RDW (11.5-15.5) % Neutrophils # (1.3-7.7) k/uL ABG pH (7.35-7.45) ABG pCO2 (35-45) mmHg ABG pO2 (83-108) mmHg ABG HCO3 (21-25) mmol/L ABG Total CO2 (19-24) mmol/L Potassium (3.5-5.1) mmol/L Chloride (98-107) mmol/L BUN (9-20) mg/dL Glucose (74-99) mg/dL POC Glucose (mg/dL) 165 H 182 H 111 H (75-99) mg/dL Calcium (8.4-10.2) mg/dL Total Protein (6.3-8.2) g/dL Albumin (3.5-5.0) g/dL 12/31/20 12/31/20 12/31/20 Range/Units 03:38 03:38 05:18 WBC 16.1 H (3.8-10.6) k/uL RBC 3.36 L (4.30-5.90) m/uL Hgb 8.0 L (13.0-17.5) gm/dL Hct 26.8 L (39.0-53.0) % MCV 79.9 L (80.0-100.0) fL MCH 23.9 L (25.0-35.0) pg MCHC 29.9 L (31.0-37.0) g/dL RDW 23.2 H (11.5-15.5) % Neutrophils # 12.9 H (1.3-7.7) k/uL ABG pH 7.55 H (7.35-7.45) ABG pCO2 33 L (35-45) mmHg ABG pO2 76 L (83-108) mmHg ABG HCO3 28 H (21-25) mmol/L ABG Total CO2 29 H (19-24) mmol/L Potassium 3.1 L (3.5-5.1) mmol/L Chloride 113 H (98-107) mmol/L BUN 26 H (9-20) mg/dL Glucose 139 H (74-99) mg/dL POC Glucose (mg/dL) (75-99) mg/dL Calcium 7.5 L (8.4-10.2) mg/dL Total Protein 4.7 L (6.3-8.2) g/dL Albumin 2.0 L (3.5-5.0) g/dL 12/31/20 Range/Units 05:59 WBC (3.8-10.6) k/uL RBC (4.30-5.90) m/uL Hgb (13.0-17.5) gm/dL Hct (39.0-53.0) % MCV (80.0-100.0) fL MCH (25.0-35.0) pg MCHC (31.0-37.0) g/dL RDW (11.5-15.5) % Neutrophils # (1.3-7.7) k/uL ABG pH (7.35-7.45) ABG pCO2 (35-45) mmHg ABG pO2 (83-108) mmHg ABG HCO3 (21-25) mmol/L ABG Total CO2 (19-24) mmol/L Potassium (3.5-5.1) mmol/L Chloride (98-107) mmol/L BUN (9-20) mg/dL Glucose (74-99) mg/dL POC Glucose (mg/dL) 142 H (75-99) mg/dL Calcium (8.4-10.2) mg/dL Total Protein (6.3-8.2) g/dL Albumin (3.5-5.0) g/dL Microbiology - Last 24 Hours (Table) 12/30/20 10:43 Catheter Tip Culture - Preliminary Catheter Tip Assessment and Plan Assessment: Acute on chronic hypoxic respiratory failure, mechanical ventilator-dependent, secondary to septic shock related to acute aspiration pneumonia with Klebsiella pneumoniae, Enterobacter Cloacae, possible acute UTI-follow cultures report no growth. Bilateral severe mastoiditis with bilateral ear infection suspected per CT Nonsustained V. 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 Former nicotine dependence Stage II sacrum-coccyx ulcer, present on admission Hypoalbuminemia
[2020-12-31] MEDS ORDERED: POTASSIUM BICARBONATE/CIT AC 20 MEQ TABLET.EFF NG-TUBE SCH (15:00)
[2020-12-31 17:17] LABS: Glucose,Whole Blood 184 mg/dL (75-99)
--- NOTE | 2020-12-31 22:59 | PN ---
PROGRESS NOTE DATE OF SERVICE: 12/31/2020 REASON FOR FOLLOWUP: Pneumonia. INTERVAL HISTORY: The patient is currently afebrile. The patient is hemodynamically stable. He is breathing comfortably. FiO2 is currently stable. No significant purulent secretions through the ET or diarrhea reported by nursing staff. PHYSICAL EXAMINATION: Blood pressure is 111/73 with pulse 85, temperature 98.3. He is 99% on 25% FiO2. General description is an elderly male lying in bed in no distress. Respiratory system: Unlabored breathing, decreased breath sounds in the bases. No wheeze. Heart S1, S2. Regular rate and rhythm. ABDOMEN: Soft, no tenderness. LABS: No new labs have been obtained today. DIAGNOSTIC IMPRESSION AND PLAN: Patient with Acinetobacter aspiration pneumonia, covered with Zosyn. Patient seemed to have shown overall clinical improvement. Continue Zosyn and respiratory support and monitor clinical course closely. IDANIAL / CAMILLEN: [id number] /
[2020-12-31 23:14] LABS: Glucose,Whole Blood 134 mg/dL (75-99)
[2021-01-01] MEDS: MORPHINE SULFATE 2 MG/ML SYRINGE IV PRN ×7 (00:31→22:32)
[2021-01-01] MEDS: IPRATROPIUM-ALBUTEROL 3 ML NEB INHALATION SCH ×6 (03:01→23:33)
[2021-01-01] MEDS ORDERED: ACETAMINOPHEN TAB 325 MG TAB PO PRN (03:37)
[2021-01-01 04:18] LABS: Anisocytosis Moderate; Basophils % (A) 0 %; Eosinophils # (A) 0.1 k/uL (0-0.7); Eosinophils % (A) 1 %; HCT 25.2 % (39.0-53.0); HGB 7.5 gm/dL (13.0-17.5); Hypochromasia Moderate; Lymphocytes # (A) 1.7 k/uL (1.0-4.8); Lymphocytes % (A) 16 %; MCH 23.7 pg (25.0-35.0); MCHC 29.9 g/dL (31.0-37.0); MCV 79.4 fL (80.0-100.0); Mean Platelet Volume 9.5; Microcytosis Moderate; Monocytes # (A) 0.2 k/uL (0-1.0); Monocytes % (A) 2 %; Neutrophils # (A) 8.7 k/uL (1.3-7.7); Neutrophils % (A) 80 %; Platelet Count 310 k/uL (150-450); RBC 3.17 m/uL (4.30-5.90); RDW 23.1 % (11.5-15.5); WBC 10.8 k/uL (3.8-10.6)
[2021-01-01 04:22] LABS: ABG Base Excess 11.9 mmol/L; ABG HCO3 34 mmol/L (21-25); ABG Oxygen Saturation 97.4 % (94-97); ABG PCO2 34 mmHg (35-45); ABG PO2 78 mmHg (83-108); ABG TCO2 35 mmol/L (19-24); Allen Test Performed? Yes
[2021-01-01 04:40] LABS: African American GFR (CKD) >90 (>60 ml/min/1.73 sqM); Anion Gap 5 mmol/L; Blood Urea Nitrogen 29 mg/dL (9-20); Calcium 7.7 mg/dL (8.4-10.2); Carbon Dioxide 33 mmol/L (22-30); Chloride 111 mmol/L (98-107); Glucose 137 mg/dL (74-99); Non-African American GFR(CKD) 84 (>60 ml/min/1.73 sqM); Potassium 3.2 mmol/L (3.5-5.1); Sodium 149 mmol/L (137-145)
[2021-01-01] MEDS: POTASSIUM CHLORIDE 20 MEQ in WATER FOR INJECTION 1 100ML.BAG IVPB SCH ×3 (05:27→10:48)
[2021-01-01 05:34] LABS: Glucose,Whole Blood 148 mg/dL (75-99)
[2021-01-01] MEDS: INSULIN ASPART (NovoLOG) 100 UNIT/ML VIAL SQ SCH ×3 (05:34→17:44)
--- NOTE | 2021-01-01 07:20 | P.PN ---
Subjective Progress Note Date: 01/01/21 75-year-old male patient with multiple medical problems and comorbidities, who is currently intubated on a mechanical ventilator and the patient has been on a mechanical ventilator since 12/22/2020. The patient was intubated for acute hypoxic respiratory failure related to septic shock due to an underlying urinary tract infection and gram-negative pneumonia/Klebsiella pneumonia and Enterobacter for which the patient required intubation mechanical ventilation. The patient is known to have a previous history of diabetes mellitus and COPD in addition to previous history of DVT and pulmonary embolism and the patient is demented on Xarelto and coronary artery disease and has a coronary stent in [facility]. 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 For now, the patient is Post tracheostomy tube insertion and the patient is a bivona #[address] on a mechanical ventilator. The patient is sedated with propofol running at 50 mcg/kg per minuteand the patient is calm and comfortable, symptoms of the mechanical ventilator. The patient is on assist control mode of ventilation at the rate of 28 with a tidal volume of 400 and FiO2 of 25% with a PEEP of 5. Chest x-ray was noted. Blood gases was noted. The patient has a PEG tube for enteral feeding and nutritional support. The patient is receiving enteral feeding for nutritional support. The patient remains on IV Zosyn covering for gram-negative pneumonia and UTI. He is currently on Lasix 40 mg IV on a daily basis. He is on IV Zosyn. He is on amiodarone 200 mg by mouth twice a day regarding his previous history of atrial fibrillation. IV fluids are running at 20 mL an hour. He is on IV Protonix. He is also on hydrocortisone 50 mg IV every 24 hours. This morning, the patient is being seen in follow-up on 01/01/2021. He is awake. He is on no sedation sedation was discontinued yesterday. His FiO2 is down to 25% with a PEEP of 5. He is following simple commands. No respiratory secretions. His blood gases from today is showing a combination of metabolic and respiratory alkalosis. PH is at 7.59 with a pCO2 of 34 and pO2 of 77. No chest x-ray from today. He does have a wound in his coccyx which is stage II. The patient is on a maintenance of 0.9 at the rate of 20 mL an hour. The patient is receiving vital high protein at the rate of 37 mL an hour through his PEG tube. Objective - Vital Signs Vital signs: Vital Signs Temp 99.5 F 01/01/21 04:00 Pulse 99 01/01/21 07:10 Resp 28 H 01/01/21 07:00 BP 99/71 01/01/21 07:00 Pulse Ox 95 01/01/21 07:00 Intake & Output 12/31/20 01/01/21 01/01/21 18:59 06:59 18:59 Intake Total 989.166 824 87 Output Total 801 360 40 Balance 188.166 464 47 Weight 68.5 kg Intake: IV 440 240 Piperacillin-Tazobactam 3 200 120 .375 gm In Sodium Chloride 0.9% 100 ml @ 25 mls/hr IVPB Q8HR [facility] Rx# :[id number] Sodium Chloride 0.9% 1, 240 120 000 ml @ 20 mls/hr IV . Q24H [facility] Rx#:[id number] Intake, IV Titration 15.166 50 50 Amount Potassium Chloride 20 meq 50 50 In Water For Injection 1 100ml.bag @ 50 mls/hr IVPB Q2H [facility] Rx#: [id number] propofoL 1,000 mg In 15.166 Empty Bag 1 bag @ Titrate IV .Q0M [facility] Rx#: [id number] Tube Feeding 444 444 37 Other 90 90 Output: Urine 800 360 40 Stool 1 Other: Voiding Method Indwelling Catheter Indwelling Catheter ABP, PAP, CO, CI - Last Documented Arterial Blood Pressure 106/55 - Exam No acute distress, sedated, with a midline tracheostomy tube in place. The patient is calm and comfortable and the patient is currently off sedation. Synchronous with the mechanical ventilator. Head exam was generally normal. There was no scleral icterus or corneal arcus. Mucous membranes were moist. Neck was supple and without jugular venous distension, thyromegaly, or carotid bruits. Carotids were easily palpable bilaterally. There was no adenopathy. The patient has a tracheostomy tube in place. Cardiovascular examination reveals regular rhythm rate. S1-S2 normal. No S3 or S4. No discernible murmur noted. Heart sounds distant. Lungs reveal bilateral coarse rhonchi. Breath sounds equal. No crackles. No wheezes. Breath sounds are essentially unchanged. Abdomen soft bowel sounds are heard. No masses or tenderness. PEG tube noted. Extremities are intact. No cyanosis clubbing or edema. Left pujuh-[id number]-tenj amputation. Examination of the skin revealed no evidence of significant rashes, suspicious appearing nevi or other concerning lesions. Neurologic examination Is showing no focal neurological deficit the patient is currently sedated with propofol - Labs CBC & Chem 7: 01/01/21 03:01/01/21 03:20 Labs: Abnormal Lab Results - Last 24 Hours (Table) 12/31/20 12/31/20 12/31/20 Range/Units 11:05 17:15 23:12 WBC (3.8-10.6) k/uL RBC (4.30-5.90) m/uL Hgb (13.0-17.5) gm/dL Hct (39.0-53.0) % MCV (80.0-100.0) fL MCH (25.0-35.0) pg MCHC (31.0-37.0) g/dL RDW (11.5-15.5) % Neutrophils # (1.3-7.7) k/uL ABG pH (7.35-7.45) ABG pCO2 (35-45) mmHg ABG pO2 (83-108) mmHg ABG HCO3 (21-25) mmol/L ABG Total CO2 (19-24) mmol/L ABG O2 Saturation (94-97) % Sodium (137-145) mmol/L Potassium (3.5-5.1) mmol/L Chloride (98-107) mmol/L Carbon Dioxide (22-30) mmol/L BUN (9-20) mg/dL Glucose (74-99) mg/dL POC Glucose (mg/dL) 157 H 184 H 134 H (75-99) mg/dL Calcium (8.4-10.2) mg/dL 01/01/21 01/01/21 01/01/21 Range/Units 03:20 03:20 04:20 WBC 10.8 H (3.8-10.6) k/uL RBC 3.17 L (4.30-5.90) m/uL Hgb 7.5 L (13.0-17.5) gm/dL Hct 25.2 L (39.0-53.0) % MCV 79.4 L (80.0-100.0) fL MCH 23.7 L (25.0-35.0) pg MCHC 29.9 L (31.0-37.0) g/dL RDW 23.1 H (11.5-15.5) % Neutrophils # 8.7 H (1.3-7.7) k/uL ABG pH 7.60 H* (7.35-7.45) ABG pCO2 34 L (35-45) mmHg ABG pO2 78 L (83-108) mmHg ABG HCO3 34 H (21-25) mmol/L ABG Total CO2 35 H (19-24) mmol/L ABG O2 Saturation 97.4 H (94-97) % Sodium 149 H (137-145) mmol/L Potassium 3.2 L (3.5-5.1) mmol/L Chloride 111 H (98-107) mmol/L Carbon Dioxide 33 H (22-30) mmol/L BUN 29 H (9-20) mg/dL Glucose 137 H (74-99) mg/dL POC Glucose (mg/dL) (75-99) mg/dL Calcium 7.7 L (8.4-10.2) mg/dL 01/01/21 Range/Units 05:32 WBC (3.8-10.6) k/uL RBC (4.30-5.90) m/uL Hgb (13.0-17.5) gm/dL Hct (39.0-53.0) % MCV (80.0-100.0) fL MCH (25.0-35.0) pg MCHC (31.0-37.0) g/dL RDW (11.5-15.5) % Neutrophils # (1.3-7.7) k/uL ABG pH (7.35-7.45) ABG pCO2 (35-45) mmHg ABG pO2 (83-108) mmHg ABG HCO3 (21-25) mmol/L ABG Total CO2 (19-24) mmol/L ABG O2 Saturation (94-97) % Sodium (137-145) mmol/L Potassium (3.5-5.1) mmol/L Chloride (98-107) mmol/L Carbon Dioxide (22-30) mmol/L BUN (9-20) mg/dL Glucose (74-99) mg/dL POC Glucose (mg/dL) 148 H (75-99) mg/dL Calcium (8.4-10.2) mg/dL Microbiology - Last 24 Hours (Table) 12/30/20 10:43 Catheter Tip Culture - Preliminary Catheter Tip Assessment and Plan Plan: #1. Acute hypoxic respiratory failure related to septic shock possibly related to acute urinary tract infection and gram-negative pneumonia, related to Klebsiella pneumoniae and Enterobacter cloacae requiring intubation and placement on mechanical ventilator on 12/22/2020, COVID 19 PCR was negative. The patient is status post tracheostomy tube and PEG tube insertion for prolonged respiratory failure. the chest x-ray still showing left lower lobe consolidation. Tracheostomy tube is in a good location. The chest x-ray from yesterday was still showing a left lower lobe pulmonary infiltrate and the patient has no major respiratory secretions. The patient remains on IV Zosyn. Blood gases showing acute respiratory and metabolic alkalosis. He is awake. He is following commands. His off sedation. #2. Acute urinary tract infection, urine culture has shown no growth. #3. Recent history of MSSA bacteremia in October 2020. #4. Previous history of recurrent sepsis and previous bacteremia. #5. History of left knee septic arthritis status post left qrvoq-[id number]-kmxf amputation. #6. DM II. #7. History of COPD. #8. History of PE and DVT, on Xarelto. #9. History of coronary artery disease with previous stent placement. #10. Former nicotine dependence. #11. Anxiety/depression. #12. Chronic back pain with history of multiple compression fractures in his thoracic and lumbar spine at T12-L1, L3-L4. #13. Stage II on sacrum, present on admission. #14. Acute kidney injury secondary to sepsis and acute tubular necrosis with septic shock, resolved. #15. Acute lactic acidosis related to sepsis and septic shock, improved. #16. Acute encephalopathy, likely toxic metabolic. #17. Episode of SVT on 12/25/2020 requiring adenosine, he is currently in sinus mechanism. #18. Status post PEG tube placement and tracheostomy tube placement, on December 29. #19, hypernatremia with sodium level of 149 and the potassium is also being replaced Plan: IV fluids to be increased up to 75 mL of half normal and at 200 mL of free water every 4 hours for underlying hypernatremia Decrease the respiratory rate rate down to 16 Stop the IV Lasix and monitor the electrolytes Monitor the underlying metabolic and respiratory alkalosis Continue enteral feeding for nutritional support and the patient is on Vital high protein continue IV Zosyn We'll check weaning parameters and assess the patient's ability to lose point is breathing trial and possibly trach collar today Continue with wound care Repeat chest x-ray from today We'll have a family discussion and will decide goals of treatment and further care after having a discussion with the family. Critically care evaluation, more than 30 minutes. Time with Patient: Greater than 30
--- NOTE | 2021-01-01 08:04 | XR ---
EXAMINATION TYPE: XR chest 1V portable DATE OF EXAM: 01/01/2021 HISTORY: Shortness of breath. COMPARISON: 12/31/2020 TECHNIQUE: Single view of the chest is submitted. FINDINGS: Demonstrated are scattered senescent parenchymal change. Tracheostomy tube is in place. Patchy basilar infiltrates persist although appear to be improved. Con tinued follow-up is advised. The heart is stable. Hilar and mediastinal structures are within normal limits. Degenerative changes are seen of the dorsal spine. IMPRESSION: 1. Tracheostomy tube is in place. Patchy basilar infiltrates persist although appear to be improved. Continued follow-up is advised.
[2021-01-01] MEDS: SODIUM CHLORIDE 0.45% 1,000 ML IV SCH (08:33)
[2021-01-01] MEDS: CHLORHEXIDINE GLUCONATE 15 ML CUP MUCOUS MEM SCH ×2 (08:33→20:28)
[2021-01-01] MEDS: METOPROLOL TARTRATE 50 MG TAB PO SCH ×2 (08:33→20:26)
[2021-01-01] MEDS: AMIODARONE 200 MG TAB PO SCH ×2 (08:33→20:26)
[2021-01-01] MEDS: HYDROCORTISONE SUCCINATE 100 MG/2 ML VIAL IV SCH (08:34)
[2021-01-01] MEDS: PIPERACILLIN-TAZOBACTAM 3.375 GM in SODIUM CHLORIDE 0.9% 100 ML IVPB SCH ×2 (08:35→16:37)
[2021-01-01] MEDS: PANTOPRAZOLE 40 MG/10 ML VIAL IV SCH (08:35)
[2021-01-01] MEDS: SODIUM BICARBONATE TAB 650 MG TAB PO SCH ×3 (08:35→22:33)
--- NOTE | 2021-01-01 11:06 | P.PN ---
Subjective Progress Note Date: 01/01/21 CHIEF COMPLAINT: Shortness of breath HISTORY OF PRESENT ILLNESS: Patient is status post trach and PEG tube placement. He is tolerating his tube feeds. No residual reported. Tube feedings at 37 mL per hour. Patient did have a temp of 101.1 last night. WBC is 10.8 Undergoing weaning trial today PHYSICAL EXAM: VITAL SIGNS: Reviewed. GENERAL: Well-developed in no acute distress. HEENT: No sclera icterus. Extraocular movements grossly intact. Moist buccal mucosa. Head is atraumatic, normocephalic. Tracheostomy site clean dry and intact ABDOMEN: Soft. Nondistended. Nontender. PEG tube site clean dry and intact NEUROLOGIC: Intubated. Patient is able to open his eye ASSESSMENT: 1. Acute on chronic hypoxic respiratory failure status post tracheostomy placement 2. Severe protein calorie malnutrition status post PEG tube placement PLAN: -Continue supportive care -Continue ICU management -Continue tube feedings Physician [employer] note has been reviewed by physician. Signing provider agrees with the documented findings, assessment, and plan of care. Objective - Vital Signs Vital signs: Vital Signs Temp 99.2 F 01/01/21 08:00 Pulse 105 H 01/01/21 09:00 Resp 25 H 01/01/21 09:00 BP 112/76 01/01/21 09:00 Pulse Ox 100 01/01/21 09:00 Intake & Output 12/31/20 01/01/21 01/01/21 18:59 06:59 18:59 Intake Total 989.166 824 462 Output Total 801 360 170 Balance 188.166 464 292 Weight 68.5 kg 68.5 kg Intake: IV 440 240 190 Piperacillin-Tazobactam 3 200 120 .375 gm In Sodium Chloride 0.9% 100 ml @ 25 mls/hr IVPB Q8HR [facility] Rx# :[id number] Sodium Chloride 0.45% 1, 150 000 ml @ 75 mls/hr IV . [id number] [facility] Rx#:[id number] Sodium Chloride 0.9% 1, 240 120 40 000 ml @ 20 mls/hr IV . Q24H [facility] Rx#:[id number] Intake, IV Titration 15.166 50 50 Amount Potassium Chloride 20 meq 50 50 In Water For Injection 1 100ml.bag @ 50 mls/hr IVPB Q2H [facility] Rx#: [id number] propofoL 1,000 mg In 15.166 Empty Bag 1 bag @ Titrate IV .Q0M [facility] Rx#: [id number] Tube Feeding 444 444 222 Other 90 90 Output: Urine 800 360 170 Stool 1 Other: Voiding Method Indwelling Catheter Indwelling Catheter Indwelling Catheter ABP, PAP, CO, CI - Last Documented Arterial Blood Pressure 106/55 - Labs CBC & Chem 7: 01/01/21 03:20 01/01/21 03:20 Labs: Abnormal Lab Results - Last 24 Hours (Table) 12/31/20 12/31/20 12/31/20 Range/Units 11:05 17:15 23:12 WBC (3.8-10.6) k/uL RBC (4.30-5.90) m/uL Hgb (13.0-17.5) gm/dL Hct (39.0-53.0) % MCV (80.0-100.0) fL MCH (25.0-35.0) pg MCHC (31.0-37.0) g/dL RDW (11.5-15.5) % Neutrophils # (1.3-7.7) k/uL ABG pH (7.35-7.45) ABG pCO2 (35-45) mmHg ABG pO2 (83-108) mmHg ABG HCO3 (21-25) mmol/L ABG Total CO2 (19-24) mmol/L ABG O2 Saturation (94-97) % Sodium (137-145) mmol/L Potassium (3.5-5.1) mmol/L Chloride (98-107) mmol/L Carbon Dioxide (22-30) mmol/L BUN (9-20) mg/dL Glucose (74-99) mg/dL POC Glucose (mg/dL) 157 H 184 H 134 H (75-99) mg/dL Calcium (8.4-10.2) mg/dL 01/01/21 01/01/21 01/01/21 Range/Units 03:20 03:20 04:20 WBC 10.8 H (3.8-10.6) k/uL RBC 3.17 L (4.30-5.90) m/uL Hgb 7.5 L (13.0-17.5) gm/dL Hct 25.2 L (39.0-53.0) % MCV 79.4 L (80.0-100.0) fL MCH 23.7 L (25.0-35.0) pg MCHC 29.9 L (31.0-37.0) g/dL RDW 23.1 H (11.5-15.5) % Neutrophils # 8.7 H (1.3-7.7) k/uL ABG pH 7.60 H* (7.35-7.45) ABG pCO2 34 L (35-45) mmHg ABG pO2 78 L (83-108) mmHg ABG HCO3 34 H (21-25) mmol/L ABG Total CO2 35 H (19-24) mmol/L ABG O2 Saturation 97.4 H (94-97) % Sodium 149 H (137-145) mmol/L Potassium 3.2 L (3.5-5.1) mmol/L Chloride 111 H (98-107) mmol/L Carbon Dioxide 33 H (22-30) mmol/L BUN 29 H (9-20) mg/dL Glucose 137 H (74-99) mg/dL POC Glucose (mg/dL) (75-99) mg/dL Calcium 7.7 L (8.4-10.2) mg/dL 01/01/21 Range/Units 05:32 WBC (3.8-10.6) k/uL RBC (4.30-5.90) m/uL Hgb (13.0-17.5) gm/dL Hct (39.0-53.0) % MCV (80.0-100.0) fL MCH (25.0-35.0) pg MCHC (31.0-37.0) g/dL RDW (11.5-15.5) % Neutrophils # (1.3-7.7) k/uL ABG pH (7.35-7.45) ABG pCO2 (35-45) mmHg ABG pO2 (83-108) mmHg ABG HCO3 (21-25) mmol/L ABG Total CO2 (19-24) mmol/L ABG O2 Saturation (94-97) % Sodium (137-145) mmol/L Potassium (3.5-5.1) mmol/L Chloride (98-107) mmol/L Carbon Dioxide (22-30) mmol/L BUN (9-20) mg/dL Glucose (74-99) mg/dL POC Glucose (mg/dL) 148 H (75-99) mg/dL Calcium (8.4-10.2) mg/dL Microbiology - Last 24 Hours (Table) 12/30/20 10:43 Catheter Tip Culture - Final Catheter Tip
--- NOTE | 2021-01-01 11:49 | P.PN ---
Subjective Progress Note Date: 01/01/21 HISTORY OF PRESENT ILLNESS: This is a 75-year-old male who is currently intubated on mechanical ventilation. Patient was originally admitted to the hospital secondary to septic shock due to UTI and pneumonia. Patient has since underwent trach and PEG. Patient had runs of SVT during hospitalization. He also had a run of ventricular tachycardia requiring electrical cardioversion. Patient is currently maintaining sinus mechanism. No arrhythmias have been noted on telemetry. He is currently receiving amiodarone 200 mg twice a day and metoprolol 50 mg twice a day. Potassium today is 3.2 and patient is receiving supplementation per protocol PHYSICAL EXAM: VITAL SIGNS: Reviewed. GENERAL: Well-developed in no acute distress- on mechanical ventilation. NECK: Supple. No JVD or thyromegaly LUNGS: Respirations even and unlabored. Lungs diminished with bilateral rhonchi. HEART: Regular rate and rhythm. S1 and S2 heard. EXTREMITIES: Left voqgb-nye-llxy amputation. No clubbing or cyanosis. Peripheral pulses intact. No lower extremity edema ASSESSMENT: Acute hypoxic respiratory failure secondary to septic shock due to UTI and pneumonia Status post trach and PEG SVT requiring adenosine Ventricular tachycardia requiring electrical cardioversion History of PE and DVT, on Xarelto Coronary artery disease with previous PCI Acute kidney injury PLAN: Continue ICU management per Dr. Manley Continue telemetry monitoring Continue current dose of amiodarone and metoprolol Further recommendations pending patient's course Nurse practitioner note has been reviewed by physician. Signing provider agrees with the documented findings, assessment, and plan of care. Objective - Vital Signs Vital signs: Vital Signs Temp 99.2 F 01/01/21 08:00 Pulse 79 01/01/21 11:04 Resp 25 H 01/01/21 09:00 BP 112/76 01/01/21 09:00 Pulse Ox 100 01/01/21 09:00 Intake & Output 12/31/20 01/01/21 01/01/21 18:59 06:59 18:59 Intake Total 989.166 824 462 Output Total 801 360 170 Balance 188.166 464 292 Weight 68.5 kg 68.5 kg Intake: IV 440 240 190 Piperacillin-Tazobactam 3 200 120 .375 gm In Sodium Chloride 0.9% 100 ml @ 25 mls/hr IVPB Q8HR [facility] Rx# :[id number] Sodium Chloride 0.45% 1, 150 000 ml @ 75 mls/hr IV . [id number] [facility] Rx#:[id number] Sodium Chloride 0.9% 1, 240 120 40 000 ml @ 20 mls/hr IV . Q24H [facility] Rx#:[id number] Intake, IV Titration 15.166 50 50 Amount Potassium Chloride 20 meq 50 50 In Water For Injection 1 100ml.bag @ 50 mls/hr IVPB Q2H [facility] Rx#: [id number] propofoL 1,000 mg In 15.166 Empty Bag 1 bag @ Titrate IV .Q0M [facility] Rx#: [id number] Tube Feeding 444 444 222 Other 90 90 Output: Urine 800 360 170 Stool 1 Other: Voiding Method Indwelling Catheter Indwelling Catheter Indwelling Catheter ABP, PAP, CO, CI - Last Documented Arterial Blood Pressure 106/55 - Labs CBC & Chem 7: 01/01/21 03:20 01/01/21 03:20 Labs: Abnormal Lab Results - Last 24 Hours (Table) 12/31/20 12/31/20 01/01/21 Range/Units 17:15 23:12 03:20 WBC 10.8 H (3.8-10.6) k/uL RBC 3.17 L (4.30-5.90) m/uL Hgb 7.5 L (13.0-17.5) gm/dL Hct 25.2 L (39.0-53.0) % MCV 79.4 L (80.0-100.0) fL MCH 23.7 L (25.0-35.0) pg MCHC 29.9 L (31.0-37.0) g/dL RDW 23.1 H (11.5-15.5) % Neutrophils # 8.7 H (1.3-7.7) k/uL ABG pH (7.35-7.45) ABG pCO2 (35-45) mmHg ABG pO2 (83-108) mmHg ABG HCO3 (21-25) mmol/L ABG Total CO2 (19-24) mmol/L ABG O2 Saturation (94-97) % Sodium (137-145) mmol/L Potassium (3.5-5.1) mmol/L Chloride (98-107) mmol/L Carbon Dioxide (22-30) mmol/L BUN (9-20) mg/dL Glucose (74-99) mg/dL POC Glucose (mg/dL) 184 H 134 H (75-99) mg/dL Calcium (8.4-10.2) mg/dL 01/01/21 01/01/21 01/01/21 Range/Units 03:20 04:20 05:32 WBC (3.8-10.6) k/uL RBC (4.30-5.90) m/uL Hgb (13.0-17.5) gm/dL Hct (39.0-53.0) % MCV (80.0-100.0) fL MCH (25.0-35.0) pg MCHC (31.0-37.0) g/dL RDW (11.5-15.5) % Neutrophils # (1.3-7.7) k/uL ABG pH 7.60 H* (7.35-7.45) ABG pCO2 34 L (35-45) mmHg ABG pO2 78 L (83-108) mmHg ABG HCO3 34 H (21-25) mmol/L ABG Total CO2 35 H (19-24) mmol/L ABG O2 Saturation 97.4 H (94-97) % Sodium 149 H (137-145) mmol/L Potassium 3.2 L (3.5-5.1) mmol/L Chloride 111 H (98-107) mmol/L Carbon Dioxide 33 H (22-30) mmol/L BUN 29 H (9-20) mg/dL Glucose 137 H (74-99) mg/dL POC Glucose (mg/dL) 148 H (75-99) mg/dL Calcium 7.7 L (8.4-10.2) mg/dL Microbiology - Last 24 Hours (Table) 12/30/20 10:43 Catheter Tip Culture - Final Catheter Tip
[2021-01-01 12:07] LABS: Glucose,Whole Blood 167 mg/dL (75-99)
--- NOTE | 2021-01-01 13:20 | P.PN ---
Subjective Progress Note Date: 01/01/21 Remains vent dependent, with FiO2 25%/+5 of PEEP. Maintained on Zosyn for aspiration pneumonia. Sputum culture reporting Klebsiella pneumoniae and Enterobacter cloacae. Chest x-ray reporting improving bibasilar infiltrates. Telemetry sinus tach. with poss proximal SVT earlier this morning, beta lisa increased in addition to verapamil. Evaluated by surgery and scheduled for trach and PEG tomorrow. 12/27/2020 remains vent dependent, FiO2 25%/+5 of PEEP. Last night developed a 12 second run of nonsustained V. tach, placed on amiodarone drip. Magnesium 1.8. He received potassium supplementation yesterday, potassium 3.8. Hemoglobin 9, platelets 191. Continues on Zosyn, afebrile, WBC 11.8. Increased edema of extremities. Received a dose of Lasix 60 mg yesterday, urine output of 1500 MLS reflected in 24 hour I&O, positive fluid balance of 1382. Renal function improving, BUN 24, creatinine 0.78. Chest x-ray Yesterday attempted sedation holiday, patient did not tolerate, became tachypneic, agitated, unable to follow commands. Chest x-ray reporting worsening bibasilar infiltrates, at electasis, atypical pneumonia, early pulmonary , prominent pulmonary vascular markings. Patient initially scheduled for trach and peg, currently declined procedure. Tolerating tube feeds at goal with minimal to no residual. 12/28/2020 remains vent dependent, FiO2 25%/+5 of PEEP. Patient's third spacing, skin fragile with multiple skin tears, albumin 1.9. No further runs of V. tach reported. Sedation holiday attempted yesterday, patient did not tolerate it, became tachycardic, tachypneic, unable to follow commands. 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 Worsening bilateral severe mastoiditis with bilateral ear infection spread suspected. Maintained on Zosyn. Chest x-ray reporting improving bibasilar infiltrates .T- max 100, WBC 12.6. Receiving potassium supplementation for potassium at 3.1, magnesium 1.8. Gentle diuresing with Lasix IV with 24-hour I&O reporting a positive fluid balance of 816. BUN 22, creatinine 0.68. The family currently discussing trach and PEG and has not yet consented. 12/29/2020 Vent dependent, FiO2 25%/5 of PEEP. Sedated on diprovan. Continues on Zosyn, T-max 100.3, WBC 16.8.Chest x-ray reports chronic parenchymal changes without suspicious focal airspace opacity or pneumothorax, with tiny bilateral pleural effusions. Family has consented to trach and PEG-scheduled for today. Hemoglobin 8.4. Diuresing on Lasix IV push with 24-hour I&O reporting a positive fluid balance ,renal function stable. 01/01/2021 vent dependent, FiO2 25% FiO2/+5 of PEEP, status post trach and PEG on Friday, tolerated procedure well. Chest x-ray reporting persistent patchy basilar infiltrates, improving. Sedation discontinued yesterday and remains off. Opens eyes to name, attempting to talk, follows simple commands. Continues on Zosyn, T-max 101.1 WBC 10.8. Hypernatremia, sodium 149, IV fluids increased. Potassium 3.2, BUN 29, creatinine 0.9. Objective - Vital Signs Vital signs: Vital Signs Temp 99.2 F 01/01/21 08:00 Pulse 78 01/01/21 11:25 Resp 24 01/01/21 11:00 BP 111/71 01/01/21 11:00 Pulse Ox 100 01/01/21 11:00 Intake & Output 12/31/20 01/01/21 01/01/21 18:59 06:59 18:59 Intake Total 989.166 824 706 Output Total 801 360 230 Balance 188.166 464 476 Weight 68.5 kg 68.5 kg Intake: IV 440 240 340 Piperacillin-Tazobactam 3 200 120 .375 gm In Sodium Chloride 0.9% 100 ml @ 25 mls/hr IVPB Q8HR [facility] Rx# :[id number] Sodium Chloride 0.45% 1, 300 000 ml @ 75 mls/hr IV . [id number] [facility] Rx#:[id number] Sodium Chloride 0.9% 1, 240 120 40 000 ml @ 20 mls/hr IV . Q24H [facility] Rx#:[id number] Intake, IV Titration 15.166 50 50 Amount Potassium Chloride 20 meq 50 50 In Water For Injection 1 100ml.bag @ 50 mls/hr IVPB Q2H [facility] Rx#: [id number] propofoL 1,000 mg In 15.166 Empty Bag 1 bag @ Titrate IV .Q0M [facility]YA Rx#: [id number] Tube Feeding 444 444 316 Other 90 90 Output: Urine 800 360 230 Stool 1 Other: Voiding Method Indwelling Catheter Indwelling Catheter Indwelling Catheter ABP, PAP, CO, CI - Last Documented Arterial Blood Pressure 106/55 - Exam - Exam General: Intubated, sedated. Vitals reviewed Lungs: coarse breath sounds, rhonchi, no wheezes or rales CV: Regular rate and rhythm, systolic murmur. Abdomen: soft, nondistended, positive bowel sounds Skin: generalized edema-improved, warm and dry. Coccyx dressing clean dry and intact, right anterior kc scab. Microbiology 12/30/20 10:43 Catheter Tip Catheter Tip Culture - Final 12/22/20 11:30 Blood Blood Culture - Final No Growth after 144 hours 12/22/20 11:20 Blood Blood Culture - Final No Growth after 144 hours 12/22/20 13:11 Sputum Gram Stain - Final 12/22/20 13:11 Sputum Sputum Culture - Final Klebsiella pneumoniae Enterobacter cloacae 12/22/20 16:57 Urine,Catheterized Urine Culture - Final - Labs CBC & Chem 7: 01/01/21 03:20 01/01/21 03:20 Labs: Abnormal Lab Results - Last 24 Hours (Table) 12/31/20 12/31/20 01/01/21 Range/Units 17:15 23:12 03:20 WBC 10.8 H (3.8-10.6) k/uL RBC 3.17 L (4.30-5.90) m/uL Hgb 7.5 L (13.0-17.5) gm/dL Hct 25.2 L (39.0-53.0) % MCV 79.4 L (80.0-100.0) fL MCH 23.7 L (25.0-35.0) pg MCHC 29.9 L (31.0-37.0) g/dL RDW 23.1 H (11.5-15.5) % Neutrophils # 8.7 H (1.3-7.7) k/uL ABG pH (7.35-7.45) ABG pCO2 (35-45) mmHg ABG pO2 (83-108) mmHg ABG HCO3 (21-25) mmol/L ABG Total CO2 (19-24) mmol/L ABG O2 Saturation (94-97) % Sodium (137-145) mmol/L Potassium (3.5-5.1) mmol/L Chloride (98-107) mmol/L Carbon Dioxide (22-30) mmol/L BUN (9-20) mg/dL Glucose (74-99) mg/dL POC Glucose (mg/dL) 184 H 134 H (75-99) mg/dL Calcium (8.4-10.2) mg/dL 01/01/21 01/01/21 01/01/21 Range/Units 03:20 04:20 05:32 WBC (3.8-10.6) k/uL RBC (4.30-5.90) m/uL Hgb (13.0-17.5) gm/dL Hct (39.0-53.0) % MCV (80.0-100.0) fL MCH (25.0-35.0) pg MCHC (31.0-37.0) g/dL RDW (11.5-15.5) % Neutrophils # (1.3-7.7) k/uL ABG pH 7.60 H* (7.35-7.45) ABG pCO2 34 L (35-45) mmHg ABG pO2 78 L (83-108) mmHg ABG HCO3 34 H (21-25) mmol/L ABG Total CO2 35 H (19-24) mmol/L ABG O2 Saturation 97.4 H (94-97) % Sodium 149 H (137-145) mmol/L Potassium 3.2 L (3.5-5.1) mmol/L Chloride 111 H (98-107) mmol/L Carbon Dioxide 33 H (22-30) mmol/L BUN 29 H (9-20) mg/dL Glucose 137 H (74-99) mg/dL POC Glucose (mg/dL) 148 H (75-99) mg/dL Calcium 7.7 L (8.4-10.2) mg/dL 01/01/21 Range/Units 12:04 WBC (3.8-10.6) k/uL RBC (4.30-5.90) m/uL Hgb (13.0-17.5) gm/dL Hct (39.0-53.0) % MCV (80.0-100.0) fL MCH (25.0-35.0) pg MCHC (31.0-37.0) g/dL RDW (11.5-15.5) % Neutrophils # (1.3-7.7) k/uL ABG pH (7.35-7.45) ABG pCO2 (35-45) mmHg ABG pO2 (83-108) mmHg ABG HCO3 (21-25) mmol/L ABG Total CO2 (19-24) mmol/L ABG O2 Saturation (94-97) % Sodium (137-145) mmol/L Potassium (3.5-5.1) mmol/L Chloride (98-107) mmol/L Carbon Dioxide (22-30) mmol/L BUN (9-20) mg/dL Glucose (74-99) mg/dL POC Glucose (mg/dL) 167 H (75-99) mg/dL Calcium (8.4-10.2) mg/dL Microbiology - Last 24 Hours (Table) 12/30/20 10:43 Catheter Tip Culture - Final Catheter Tip Assessment and Plan Assessment: Acute on chronic hypoxic respiratory failure, mechanical ventilator-dependent, secondary to septic shock related to acute aspiration pneumonia with Klebsiella pneumoniae, Enterobacter Cloacae, possible acute UTI-follow cultures report no growth. Status post tracheostomy and PEG Bilateral severe mastoiditis with bilateral ear infection suspected per CT Nonsustained V. 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 Former nicotine dependence Stage II sacrum-coccyx ulcer, present on admission Hypoalbuminemia Hypernatremia Hypokalemia Plan: Continue on current medication regime ,monitoring and symptomatic treatment. Diuretics discontinued, IV fluids increased. Hypokalemia replacement. Continues on antibiotics. Weaning parameters pending .family me eting pending. Prognosis guarded given multiple complex medical issues. The impression and plan of care has been dictated as directed. : I performed a history and examination of this patient, discussed the same with the dictator. I agree with the dictator's note ,documented as a scribe. Any additional findings or plans will be noted.
[2021-01-01 17:25] LABS: Glucose,Whole Blood 140 mg/dL (75-99)
[2021-01-01 23:46] LABS: Glucose,Whole Blood 105 mg/dL (75-99)
[2021-01-02] MEDS: PIPERACILLIN-TAZOBACTAM 3.375 GM in SODIUM CHLORIDE 0.9% 100 ML IVPB SCH ×4 (00:01→23:40)
[2021-01-02] MEDS: SODIUM CHLORIDE 0.45% 1,000 ML IV SCH ×2 (00:10→10:49)
--- NOTE | 2021-01-02 00:19 | PN ---
PROGRESS NOTE DATE OF SERVICE: 01/01/2021 REASON FOR FOLLOWUP: Aspiration pneumonia. INTERVAL HISTORY: The patient did spike a fever this morning or 101 degrees Fahrenheit. The patient has been afebrile since then. The patient is hemodynamically stable, not on any pressor support. FiO2 is currently stable at 25%. No significant purulent secretions in the ET or any diarrhea reported. PHYSICAL EXAMINATION: Blood pressure 105/77 with a pulse of 92, temperature of 98. He is 99% on 25% FiO2. General description is an elderly male lying in bed in no distress. RESPIRATORY SYSTEM: Unlabored breathing with decreased intensity of breath sounds. No wheeze. HEART: S1, S2. Regular rate and rhythm. ABDOMEN: Soft. No tenderness. LABS: Hemoglobin 7.5, white count 10.8, BUN of 29, creatinine 0.90. DIAGNOSTIC IMPRESSION AND PLAN: Patient with acute respiratory failure, multifactorial, in this patient who did have a component of pneumonia. Sputum is klebsiella, enterobacter, covered with Zosyn. Overall prognosis remains guarded. Possible hospice as per discussion with the nursing staff. Continue supportive care. MMODL / IJN: [id number] /
[2021-01-02] MEDS: INSULIN ASPART (NovoLOG) 100 UNIT/ML VIAL SQ SCH ×5 (00:44→23:37)
[2021-01-02] MEDS: MORPHINE SULFATE 2 MG/ML SYRINGE IV PRN ×5 (02:36→14:36)
[2021-01-02] MEDS: IPRATROPIUM-ALBUTEROL 3 ML NEB INHALATION SCH ×5 (03:16→21:48)
[2021-01-02 05:10] LABS: Anisocytosis Moderate; Basophils % (A) 0 %; Eosinophils # (A) 0.2 k/uL (0-0.7); Eosinophils % (A) 2 %; HCT 24.2 % (39.0-53.0); HGB 7.4 gm/dL (13.0-17.5); Hypochromasia Marked; Lymphocytes # (A) 2.3 k/uL (1.0-4.8); Lymphocytes % (A) 22 %; MCH 24.7 pg (25.0-35.0); MCHC 30.7 g/dL (31.0-37.0); MCV 80.4 fL (80.0-100.0); Mean Platelet Volume 9.1; Microcytosis Moderate; Monocytes # (A) 0.2 k/uL (0-1.0); Monocytes % (A) 2 %; Neutrophils # (A) 7.7 k/uL (1.3-7.7); Neutrophils % (A) 73 %; Platelet Count 340 k/uL (150-450); RBC 3.01 m/uL (4.30-5.90); RDW 22.8 % (11.5-15.5); WBC 10.5 k/uL (3.8-10.6)
[2021-01-02 05:18] LABS: African American GFR (CKD) >90 (>60 ml/min/1.73 sqM); Anion Gap 4 mmol/L; Blood Urea Nitrogen 32 mg/dL (9-20); Calcium 7.9 mg/dL (8.4-10.2); Carbon Dioxide 30 mmol/L (22-30); Chloride 108 mmol/L (98-107); Glucose 91 mg/dL (74-99); Non-African American GFR(CKD) 90 (>60 ml/min/1.73 sqM); Potassium 3.7 mmol/L (3.5-5.1); Sodium 142 mmol/L (137-145)
[2021-01-02 06:07] LABS: Glucose,Whole Blood 87 mg/dL (75-99)
[2021-01-02] MEDS: POTASSIUM CHLORIDE 10 MEQ in WATER FOR INJECTION 1 100ML.BAG IVPB SCH ×2 (06:08→08:40)
--- NOTE | 2021-01-02 07:30 | P.PN ---
Subjective Progress Note Date: 01/02/21 75-year-old male patient with multiple medical problems and comorbidities, who is currently intubated on a mechanical ventilator and the patient has been on a mechanical ventilator since 12/22/2020. The patient was intubated for acute hypoxic respiratory failure related to septic shock due to an underlying urinary tract infection and gram-negative pneumonia/Klebsiella pneumonia and Enterobacter for which the patient required intubation mechanical ventilation. The patient is known to have a previous history of diabetes mellitus and COPD in addition to previous history of DVT and pulmonary embolism and the patient is demented on Xarelto and coronary artery disease and has a coronary stent in [facility]. 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 For now, the patient is Post tracheostomy tube insertion and the patient is a bivona #[address] on a mechanical ventilator. The patient is sedated with propofol running at 50 mcg/kg per minuteand the patient is calm and comfortable, symptoms of the mechanical ventilator. The patient is on assist control mode of ventilation at the rate of 28 with a tidal volume of 400 and FiO2 of 25% with a PEEP of 5. Chest x-ray was noted. Blood gases was noted. The patient has a PEG tube for enteral feeding and nutritional support. The patient is receiving enteral feeding for nutritional support. The patient remains on IV Zosyn covering for gram-negative pneumonia and UTI. He is currently on Lasix 40 mg IV on a daily basis. He is on IV Zosyn. He is on amiodarone 200 mg by mouth twice a day regarding his previous history of atrial fibrillation. IV fluids are running at 20 mL an hour. He is on IV Protonix. He is also on hydrocortisone 50 mg IV every 24 hours. This morning, the patient is being seen in follow-up on 01/01/2021. He is awake. He is on no sedation sedation was discontinued yesterday. His FiO2 is down to 25% with a PEEP of 5. He is following simple commands. No respiratory secretions. His blood gases from today is showing a combination of metabolic and respiratory alkalosis. PH is at 7.59 with a pCO2 of 34 and pO2 of 77. No chest x-ray from today. He does have a wound in his coccyx which is stage II. The patient is on a maintenance of 0.9 at the rate of 20 mL an hour. The patient is receiving vital high protein at the rate of 37 mL an hour through his PEG tube. On today's evaluation of 01/02/2021, the patient is sedated with propofol at the low dose of 10 mg/kg per minute. Sedation had to be out of yesterday the patient was becoming somewhat asynchronous with a mechanical ventilator. This morning he is on assist control mode and is calm and comfortable. Chest x-ray showed improvement in left lower lobe consolidation and infiltration. Nevertheless, the tracheostomy tube is sitting very high in the trachea and the sleep was done by at least 2 cm. Tracheostomy tube was consistently high. Currently is an assist-control mode of ventilation at the rate of 16 with a tidal volume of 400 and FiO2 of 25% with a PEEP of 5. After pushing in the tracheostomy tube by around 2 cm, airway pressure improved considerably. His current peak air pressures around 27. No significant orotracheal secretions. The patient has a Bivona tracheostomy tube in place. His current pulse ox is 97%. He is still on IV Zosyn regarding a polymicrobial pneumonia with Klebsiella and Enterobacter. The patient is also receiving enteral feeding for nutritional support and currently is on vital high protein at the rate of 37 mL an hour. Neurologically, the patient is quite comfortable. I was told by the nursing staff that he is not following commands. He opens his eyes spontaneously. He tracks. He smiles. He has not been consistently responding to verbal commands. Overnight, he became slightly tachycardic and this is probably related to the 2 positioning as the patient's to was high in the trachea and was causing some tachycardia and tachypnea. I think is able to cut down his sedation for now. He has a stage II coccygeal ulcer. No fever. No chills. No other significant events overnight. Objective - Vital Signs Vital signs: Vital Signs Temp 97.9 F 01/02/21 04:00 Pulse 116 H 01/02/21 07:13 Resp 32 H 01/02/21 06:00 BP 131/80 01/02/21 06:00 Pulse Ox 97 01/02/21 06:00 Intake & Output 01/01/21 01/02/2121 18:59 06:59 18:59 Intake Total 1316 2196.111 Output Total 370 362 Balance 946 1834.111 Weight 68.5 kg 70.2 kg Intake: IV 715 1000 Piperacillin-Tazobactam 3 100 .375 gm In Sodium Chloride 0.9% 100 ml @ 25 mls/hr IVPB Q8HR [facility] Rx# :[id number] Sodium Chloride 0.45% 1, 675 900 000 ml @ 75 mls/hr IV . [id number] [facility]YA Rx#:[id number] Sodium Chloride 0.9% 1, 40 000 ml @ 20 mls/hr IV . Q24H [facility]YA Rx#:[id number] Intake, IV Titration 50 16.111 Amount Potassium Chloride 20 meq 50 In Water For Injection 1 100ml.bag @ 50 mls/hr IVPB Q2H [facility]YA Rx#: [id number] propofoL 1,000 mg In 16.111 Empty Bag 1 bag @ Titrate IV .Q0M SURYA Rx#: [id number] Tube Feeding 551 580 Other 600 Output: Urine 370 362 Other: Voiding Method Indwelling Catheter Indwelling Catheter ABP, PAP, CO, CI - Last Documented Arterial Blood Pressure 106/55 - Exam No acute distress, sedated, with a midline tracheostomy tube in place. The patient is calm and comfortable and the patient is currently off sedation. Synchronous with the mechanical ventilator. The tracheostomy tube line is currently at 13 cm. He Head exam was generally normal. There was no scleral icterus or corneal arcus. Mucous membranes were moist. Neck was supple and without jugular venous distension, thyromegaly, or carotid bruits. Carotids were easily palpable bilaterally. There was no adenopathy. The patient has a tracheostomy tube in place. Cardiovascular examination reveals regular rhythm rate. S1-S2 normal. No S3 or S4. No discernible murmur noted. Heart sounds distant. Lungs reveal bilateral coarse rhonchi. Breath sounds equal. No crackles. No wheezes. Breath sounds are essentially unchanged. Abdomen soft bowel sounds are heard. No masses or tenderness. PEG tube noted. Extremities are intact. No cyanosis clubbing or edema. Left [id number] amputation. Examination of the skin revealed no evidence of significant rashes, suspicious appearing nevi or other concerning lesions. Neurologic examination Is showing no focal neurological deficit the patient is currently sedated with propofol - Labs CBC & Chem 7: 01/02/21 04:28 01/02/21 04:28 Labs: Abnormal Lab Results - Last 24 Hours (Table) 01/01/21 01/01/21 01/01/21 Range/Units 12:04 17:23 23:45 RBC (4.30-5.90) m/uL Hgb (13.0-17.5) gm/dL Hct (39.0-53.0) % MCH (25.0-35.0) pg MCHC (31.0-37.0) g/dL RDW (11.5-15.5) % Chloride (98-107) mmol/L BUN (9-20) mg/dL POC Glucose (mg/dL) 167 H 140 H 105 H (75-99) mg/dL Calcium (8.4-10.2) mg/dL 01/02/21 01/02/21 Range/Units 04:28 04:28 RBC 3.01 L (4.30-5.90) m/uL Hgb 7.4 L (13.0-17.5) gm/dL Hct 24.2 L (39.0-53.0) % MCH 24.7 L (25.0-35.0) pg MCHC 30.7 L (31.0-37.0) g/dL RDW 22.8 H (11.5-15.5) % Chloride 108 H (98-107) mmol/L BUN 32 H (9-20) mg/dL POC Glucose (mg/dL) (75-99) mg/dL Calcium 7.9 L (8.4-10.2) mg/dL Microbiology - Last 24 Hours (Table) 12/30/20 10:43 Catheter Tip Culture - Final Catheter Tip Assessment and Plan Plan: #1. Acute hypoxic respiratory failure related to septic shock possibly related to acute urinary tract infection and gram-negative pneumonia, related to Klebsiella pneumoniae and Enterobacter cloacae requiring intubation and placement on mechanical ventilator on 12/22/2020, COVID 19 PCR was negative. The patient is status post tracheostomy tube and PEG tube insertion for prolonged respiratory failure. the chest x-ray still showing left lower lobe consolidation. In terms of his pulmonary status, the peak airway pressure was elevated and the patient's tube was repositioned successfully and his airway pressures off considerably. Tracheostomy tube was high in the trachea and was pushed and adequately. The chest x-ray showing improvement in the left lower lobe consolidation. She is on a 25% FiO2. Weaning parameters will be checked later stage and the patient will be given another trial with spontaneous breathing with a pressure support of 10 and a PEEP of 5. He did last for a total of 30 minutes yesterday on this #2. Acute urinary tract infection, urine culture has shown no growth. #3. Recent history of MSSA bacteremia in October 2020. #4. Previous history of recurrent sepsis and previous bacteremia. #5. History of left knee septic arthritis status post left [id number] amputation. #6. DM II. The patient is been adequately controlled in terms of his blood sugar and the patient is currently being covered with sliding scale #7. History of COPD. #8. History of PE and DVT, on Xarelto #9. History of coronary artery disease with previous stent placement. #10. Former nicotine dependence. #11. Anxiety/depression. #12. Chronic back pain with history of multiple compression fractures in his thoracic and lumbar spine at T12-L1, L3-L4. #13. Stage II on sacrum, present on admission. #14. Acute kidney injury secondary to sepsis and acute tubular necrosis with septic shock, resolved. #15. Acute lactic acidosis related to sepsis and septic shock, improved. #16. Acute encephalopathy, likely toxic metabolic. #17. Episode of SVT on 12/25/2020 requiring adenosine, he is currently in sinus mechanism. #18. Status post PEG tube placement and tracheostomy tube placement, on December 29. #19, hypernatremia with sodium level of 142 mild the patient has responded and the patient is receiving free water through the PEG. He is receiving 200 mL every 4 hours. IV fluid in the form of 75 an hour of half normal. Plan: The patient will be gradually taken off the propofol and should be able to tolerate that without any major difficulties. His discomfort and respiratory synchrony was probably related to the tube positioning that was IV fluids to be reduced up to 20 mL of half normal and at 200 mL of free water every 4 hours hyponatremia recovered Tracheostomy tube was positioned and will obtain a blood gas as the patient was considerably alkalotic on yesterday's blood gas Continue enteral feeding for nutritional support and the patient is on Vital high protein continue IV Zosyn We'll check weaning parameters and assess the patient's ability to lose point is breathing trial today. Continue with wound care Repeat chest x-ray from today showing improvement in the left lower lobe pulmonary infiltrates/consolidation We'll have a family discussion and will decide goals of treatment and further care after having a discussion with the family. Family is supposed to me today and decide on long-term care being admitted being in hospice versus long-term vent facility. Critically care evaluation, more than 30 minutes. Time with Patient: Greater than 30
[2021-01-02] MEDS ORDERED: POTASSIUM CHLORIDE 20 MEQ in WATER FOR INJECTION 1 100ML.BAG IVPB STA (08:01)
--- NOTE | 2021-01-02 08:23 | XR ---
EXAMINATION TYPE: XR chest 1V portable DATE OF EXAM: 01/02/2021 COMPARISON: Chest x-ray 01/01/2021 HISTORY: Tachypnea TECHNIQUE: Single frontal view of the chest is obtained. FINDINGS: Tracheostomy tube is overlying the tracheal air column. Bilateral interstitial changes, pa tchy density again noted within the lungs. Left-sided PICC line shows the distal tip over the left in nominate vein. There is no evident pneumothorax. Some blunting the costophrenic angles is again seen. Cardiac mediastinal silhouette is stable. Aorta is dense. IMPRESSION: Similar to prior exam, correlate for possible pneumonia, edema.
[2021-01-02 08:26] LABS: ABG Base Excess 7.7 mmol/L; ABG HCO3 30 mmol/L (21-25); ABG PCO2 37 mmHg (35-45); ABG PH 7.53 (7.35-7.45); ABG PO2 72 mmHg (83-108); ABG TCO2 32 mmol/L (19-24); Allen Test Performed? Yes
[2021-01-02] MEDS: CHLORHEXIDINE GLUCONATE 15 ML CUP MUCOUS MEM SCH ×2 (08:39→19:59)
[2021-01-02] MEDS: HYDROCORTISONE SUCCINATE 100 MG/2 ML VIAL IV SCH ×2 (08:39→09:53)
[2021-01-02] MEDS: METOPROLOL TARTRATE 50 MG TAB PO SCH ×2 (08:40→19:59)
[2021-01-02] MEDS: AMIODARONE 200 MG TAB PO SCH ×2 (08:40→19:59)
[2021-01-02] MEDS: SODIUM BICARBONATE TAB 650 MG TAB PO SCH ×3 (08:40→21:09)
[2021-01-02] MEDS: PANTOPRAZOLE 40 MG/10 ML VIAL IV SCH (08:40)
[2021-01-02] MEDS: MAGNESIUM SULFATE-D5W PMX 1 GM in DEXTROSE/WATER 1 100ML.BAG IVPB SCH ×2 (08:41→10:48)
--- NOTE | 2021-01-02 10:54 | P.PN ---
Subjective Progress Note Date: 01/02/21 HISTORY OF PRESENT ILLNESS: 01/01/2021 This is a 75-year-old male who is currently intubated on mechanical ventilation. Patient was originally admitted to the hospital secondary to septic shock due to UTI and pneumonia. Patient has since underwent trach and PEG. Patient had runs of SVT during hospitalization. He also had a run of ventricular tachycardia requiring electrical cardioversion. Patient is currently maintaining sinus mechanism. No arrhythmias have been noted on telemetry. He is currently receiving amiodarone 200 mg twice a day and metoprolol 50 mg twice a day. P otassium today is 3.2 and patient is receiving supplementation per protocol 01/02/2021 Patient examined this morning in the ICU. Patient remains on mechanical ventilation. Telemetry reveals sinus mechanism. No arrhythmias noted. Potassium 3.7. Magnesium 1.6. He remains on amiodarone and metoprolol. PHYSICAL EXAM: VITAL SIGNS: Reviewed. GENERAL: Well-developed in no acute distress- on mechanical ventilation. NECK: Supple. No JVD or thyromegaly LUNGS: Respirations even and unlabored. Lungs diminished with bilateral rhonchi. HEART: Regular rate and rhythm. S1 and S2 heard. EXTREMITIES: Left [id number] amputation. No clubbing or cyanosis. Peripheral pulses intact. No lower extremity edema ASSESSMENT: Acute hypoxic respiratory failure secondary to septic shock due to UTI and pneumonia Status post trach and PEG SVT requiring adenosine Ventricular tachycardia requiring electrical cardioversion History of PE and DVT, on Xarelto Coronary artery disease with previous PCI Acute kidney injury PLAN: Continue ICU management per Dr. Manley Continue telemetry monitoring Replace potassium and magnesium Continue current dose of amiodarone and metoprolol We will sign off. Please reconsult if needed. Nurse practitioner note has been reviewed by physician. Signing provider agrees with the documented findings, assessment, and plan of care. Objective - Vital Signs Vital signs: Vital Signs Temp 99.0 F 01/02/21 09:00 Pulse 81 01/02/21 10:00 Resp 24 01/02/21 10:00 BP 100/66 01/02/21 10:00 Pulse Ox 99 01/02/21 10:00 Intake & Output 01/01/21 01/02/21 01/02/21 18:59 06:59 18:59 Intake Total 1316 2196.111 847.513 Output Total 370 362 110 Balance 946 1834.111 737.513 Weight 68.5 kg 70.2 kg Intake: IV 715 1000 440 Magnesium Sulfate-D5w Pmx 100 1 gm In Dextrose/Water 1 100ml.bag @ 100 mls/hr IVPB Q1H [facility] Rx#: [id number] Piperacillin-Tazobactam 3 100 100 .375 gm In Sodium Chloride 0.9% 100 ml @ 25 mls/hr IVPB Q8HR [facility] Rx# :[id number] Potassium Chloride 10 meq 200 In Water For Injection 1 100ml.bag @ 100 mls/hr IVPB Q1H [facility] Rx#: [id number] Sodium Chloride 0.45% 1, 675 900 40 000 ml @ 20 mls/hr IV . Q24H [facility] Rx#:[id number] Sodium Chloride 0.9% 1, 40 000 ml @ 20 mls/hr IV . Q24H [facility] Rx#:[id number] Intake, IV Titration 50 16.111 11.513 Amount Potassium Chloride 20 meq 50 In Water For Injection 1 100ml.bag @ 50 mls/hr IVPB Q2H [facility] Rx#: [id number] propofoL 1,000 mg In 16.111 11.513 Empty Bag 1 bag @ Titrate IV .Q0M [facility] Rx#: [id number] Tube Feeding 551 580 196 Other 600 200 Output: Urine 370 362 110 Other: Voiding Method Indwelling Catheter Indwelling Catheter Indwelling Catheter ABP, PAP, CO, CI - Last Documented Arterial Blood Pressure 106/55 - Labs CBC & Chem 7: 01/02/21 04:28 01/02/21 04:28 Labs: Abnormal Lab Results - Last 24 Hours (Table) 01/01/21 01/01/21 01/01/21 Range/Units 12:04 17:23 23:45 RBC (4.30-5.90) m/uL Hgb (13.0-17.5) gm/dL Hct (39.0-53.0) % MCH (25.0-35.0) pg MCHC (31.0-37.0) g/dL RDW (11.5-15.5) % ABG pH (7.35-7.45) ABG pO2 (83-108) mmHg ABG HCO3 (21-25) mmol/L ABG Total CO2 (19-24) mmol/L Chloride (98-107) mmol/L BUN (9-20) mg/dL POC Glucose (mg/dL) 167 H 140 H 105 H (75-99) mg/dL Calcium (8.4-10.2) mg/dL 01/02/21 01/02/21 01/02/21 Range/Units 04:28 04:28 08:20 RBC 3.01 L (4.30-5.90) m/uL Hgb 7.4 L (13.0-17.5) gm/dL Hct 24.2 L (39.0-53.0) % MCH 24.7 L (25.0-35.0) pg MCHC 30.7 L (31.0-37.0) g/dL RDW 22.8 H (11.5-15.5) % ABG pH 7.53 H (7.35-7.45) ABG pO2 72 L (83-108) mmHg ABG HCO3 30 H (21-25) mmol/L ABG Total CO2 32 H (19-24) mmol/L Chloride 108 H (98-107) mmol/L BUN 32 H (9-20) mg/dL POC Glucose (mg/dL) (75-99) mg/dL Calcium 7.9 L (8.4-10.2) mg/dL Microbiology - Last 24 Hours (Table) 12/30/20 10:43 Catheter Tip Culture - Final Catheter Tip
--- NOTE | 2021-01-02 11:15 | P.PN ---
Subjective Progress Note Date: 01/02/21 CHIEF COMPLAINT: Shortness of breath HISTORY OF PRESENT ILLNESS: Patient is status post trach and PEG tube placement. He is tolerating his tube feeds. No residual reported. Tube feedings at 49 mL per hour. Afebrile. He has been tachycardic. WBC is 10.5 Hgb 7.4 PHYSICAL EXAM: VITAL SIGNS: Reviewed. GENERAL: Well-developed in no acute distress. HEENT: No sclera icterus. Extraocular movements grossly intact. Moist buccal mucosa. Head is atraumatic, normocephalic. Tracheostomy site clean dry and intact ABDOMEN: Soft. Nondistended. Nontender. PEG tube site clean dry and intact NEUROLOGIC: On mechanical ventilation and sedated ASSESSMENT: 1. Acute on chronic hypoxic respiratory failure status post tracheostomy placement 2. Severe protein calorie malnutrition status post PEG tube placement PLAN: -Continue supportive care -Continue ICU management -Continue tube feedings Physician Postal Delivery Officer note has been reviewed by physician. Signing provider agrees with the documented findings, assessment, and plan of care. Objective - Vital Signs Vital signs: Vital Signs Temp 99.0 F 01/02/21 09:00 Pulse 81 01/02/21 10:00 Resp 24 01/02/21 10:00 BP 100/66 01/02/21 10:00 Pulse Ox 99 01/02/21 10:00 Intake & Output 01/01/21 01/02/21 01/02/21 18:59 06:59 18:59 Intake Total 1316 2196.111 847.513 Output Total 370 362 110 Balance 946 1834.111 737.513 Weight 68.5 kg 70.2 kg Intake: IV 715 1000 440 Magnesium Sulfate-D5w Pmx 100 1 gm In Dextrose/Water 1 100ml.bag @ 100 mls/hr IVPB Q1H [facility] Rx#: [id number] Piperacillin-Tazobactam 3 100 100 .375 gm In Sodium Chloride 0.9% 100 ml @ 25 mls/hr IVPB Q8HR [facility] Rx# :[id number] Potassium Chloride 10 meq 200 In Water For Injection 1 100ml.bag @ 100 mls/hr IVPB Q1H [facility] Rx#: [id number] Sodium Chloride 0.45% 1, 675 900 40 000 ml @ 20 mls/hr IV . Q24H [facility] Rx#:[id number] Sodium Chloride 0.9% 1, 40 000 ml @ 20 mls/hr IV . Q24H [facility] Rx#:[id number] Intake, IV Titration 50 16.111 11.513 Amount Potassium Chloride 20 meq 50 In Water For Injection 1 100ml.bag @ 50 mls/hr IVPB Q2H [facility] Rx#: [id number] propofoL 1,000 mg In 16.111 11.513 Empty Bag 1 bag @ Titrate IV .Q0M [facility] Rx#: [id number] Tube Feeding 551 580 196 Other 600 200 Output: Urine 370 362 110 Other: Voiding Method Indwelling Catheter Indwelling Catheter Indwelling Catheter ABP, PAP, CO, CI - Last Documented Arterial Blood Pressure 106/55 - Labs CBC & Chem 7: 01/02/21 04:28 01/02/21 04:28 Labs: Abnormal Lab Results - Last 24 Hours (Table) 01/01/21 01/01/21 01/01/21 Range/Units 12:04 17:23 23:45 RBC (4.30-5.90) m/uL Hgb (13.0-17.5) gm/dL Hct (39.0-53.0) % MCH (25.0-35.0) pg MCHC (31.0-37.0) g/dL RDW (11.5-15.5) % ABG pH (7.35-7.45) ABG pO2 (83-108) mmHg ABG HCO3 (21-25) mmol/L ABG Total CO2 (19-24) mmol/L Chloride (98-107) mmol/L BUN (9-20) mg/dL POC Glucose (mg/dL) 167 H 140 H 105 H (75-99) mg/dL Calcium (8.4-10.2) mg/dL 01/02/21 01/02/21 01/02/21 Range/Units 04:28 04:28 08:20 RBC 3.01 L (4.30-5.90) m/uL Hgb 7.4 L (13.0-17.5) gm/dL Hct 24.2 L (39.0-53.0) % MCH 24.7 L (25.0-35.0) pg MCHC 30.7 L (31.0-37.0) g/dL RDW 22.8 H (11.5-15.5) % ABG pH 7.53 H (7.35-7.45) ABG pO2 72 L (83-108) mmHg ABG HCO3 30 H (21-25) mmol/L ABG Total CO2 32 H (19-24) mmol/L Chloride 108 H (98-107) mmol/L BUN 32 H (9-20) mg/dL POC Glucose (mg/dL) (75-99) mg/dL Calcium 7.9 L (8.4-10.2) mg/dL Microbiology - Last 24 Hours (Table) 12/30/20 10:43 Catheter Tip Culture - Final Catheter Tip
[2021-01-02 12:21] LABS: Glucose,Whole Blood 177 mg/dL (75-99)
--- NOTE | 2021-01-02 14:36 | P.PN ---
Subjective Progress Note Date: 01/02/21 Remains vent dependent, with FiO2 25%/+5 of PEEP. Maintained on Zosyn for aspiration pneumonia. Sputum culture reporting Klebsiella pneumoniae and Enterobacter cloacae. Chest x-ray reporting improving bibasilar infiltrates. Telemetry sinus tach. with poss proximal SVT earlier this morning, beta lisa increased in addition to verapamil. Evaluated by surgery and scheduled for trach and PEG tomorrow. 12/27/2020 remains vent dependent, FiO2 25%/+5 of PEEP. Last night developed a 12 second run of nonsustained V. tach, placed on amiodarone drip. Magnesium 1.8. He received potassium supplementation yesterday, potassium 3.8. Hemoglobin 9, platelets 191. Continues on Zosyn, afebrile, WBC 11.8. Increased edema of extremities. Received a dose of Lasix 60 mg yesterday, urine output of 1500 MLS reflected in 24 hour I&O, positive fluid balance of 1382. Renal function improving, BUN 24, creatinine 0.78. Chest x-ray Yesterday attempted sedation holiday, patient did not tolerate, became tachypneic, agitated, unable to follow commands. Chest x-ray reporting worsening bibasilar infiltrates, at electasis, atypical pneumonia, early pulmonary , prominent pulmonary vascular markings. Patient initially scheduled for trach and peg, currently declined procedure. Tolerating tube feeds at goal with minimal to no residual. 12/28/2020 remains vent dependent, FiO2 25%/+5 of PEEP. Patient's third spacing, skin fragile with multiple skin tears, albumin 1.9. No further runs of V. tach reported. Sedation holiday attempted yesterday, patient did not tolerate it, became tachycardic, tachypneic, unable to follow commands. 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 Worsening bilateral severe mastoiditis with bilateral ear infection spread suspected. Maintained on Zosyn. Chest x-ray reporting improving bibasilar infiltrates .T- max 100, WBC 12.6. Receiving potassium supplementation for potassium at 3.1, magnesium 1.8. Gentle diuresing with Lasix IV with 24-hour I&O reporting a positive fluid balance of 816. BUN 22, creatinine 0.68. The family currently discussing trach and PEG and has not yet consented. 12/29/2020 Vent dependent, FiO2 25%/5 of PEEP. Sedated on diprovan. Continues on Zosyn, T-max 100.3, WBC 16.8.Chest x-ray reports chronic parenchymal changes without suspicious focal airspace opacity or pneumothorax, with tiny bilateral pleural effusions. Family has consented to trach and PEG-scheduled for today. Hemoglobin 8.4. Diuresing on Lasix IV push with 24-hour I&O reporting a positive fluid balance ,renal function stable. 01/01/2021 vent dependent, FiO2 25% FiO2/+5 of PEEP, status post trach and PEG on Friday, tolerated procedure well. Chest x-ray reporting persistent patchy basilar infiltrates, improving. Sedation discontinued yesterday and remains off. Opens eyes to name, attempting to talk, follows simple commands. Continues on Zosyn, T-max 101.1 WBC 10.8. Hypernatremia, sodium 149, IV fluids increased. Potassium 3.2, BUN 29, creatinine 0.9. 01/02/2021 remains vent dependent, unchanged vent settings, FiO2 25%/+5 of PEEP. Chest x-ray reporting tracheostomy tube overlying the tracheal air column , bilateral interstitial changes, patchy density within the lungs, similar to prior exam .Attempted sedation holiday yesterday patient unable to tolerate;became tachypneic, asynchronous with the vent and Diprovan resumed. Continue on amiodarone and metoprolol, telemetry sinus rhythm. Tolerating tube feeds via PEG tube with minimal to no residuals. Sodium improved,142. Magnesium 1.6. Objective - Vital Signs Vital signs: Vital Signs Temp 99.0 F 01/02/21 09:00 Pulse 76 01/02/21 11:37 Resp 16 01/02/21 11:00 BP 100/66 01/02/21 11:00 Pulse Ox 99 01/02/21 11:00 Intake & Output 01/01/21 01/02/21 01/02/21 18:59 06:59 18:59 Intake Total 1316 2196.111 916.513 Output Total 370 362 135 Balance 946 1834.111 781.513 Weight 68.5 kg 70.2 kg Intake: IV 715 1000 460 Magnesium Sulfate-D5w Pmx 100 1 gm In Dextrose/Water 1 100ml.bag @ 100 mls/hr IVPB Q1H REPLACED BY [facility] Rx#: [id number] Piperacillin-Tazobactam 3 100 100 .375 gm In Sodium Chloride 0.9% 100 ml @ 25 mls/hr IVPB Q8HR [facility] Rx# :[id number] Potassium Chloride 10 meq 200 In Water For Injection 1 100ml.bag @ 100 mls/hr IVPB Q1H [facility] Rx#: [id number] Sodium Chloride 0.45% 1, 675 900 60 000 ml @ 20 mls/hr IV . Q24H [facility] Rx#:[id number] Sodium Chloride 0.9% 1, 40 000 ml @ 20 mls/hr IV . Q24H REPLACED BY [facility] Rx#:[id number] Intake, IV Titration 50 16.111 11.513 Amount Potassium Chloride 20 meq 50 In Water For Injection 1 100ml.bag @ 50 mls/hr IVPB Q2H [facility] Rx#: [id number] propofoL 1,000 mg In 16.111 11.513 Empty Bag 1 bag @ Titrate IV .Q0M REPLACED BY [facility] Rx#: [id number] Tube Feeding 551 580 245 Other 600 200 Output: Urine 370 362 135 Other: Voiding Method Indwelling Catheter Indwelling Catheter Indwelling Catheter ABP, PAP, CO, CI - Last Documented Arterial Blood Pressure 106/55 - Exam - Exam General: Intubated, sedated. Vitals reviewed Lungs: coarse breath sounds, rhonchi, no wheezes or rales CV: Regular rate and rhythm, systolic murmur. Abdomen: soft, nondistended, PEG tube present .positive bowel sounds Skin: generalized edema-improved, warm and dry. Coccyx dressing clean dry and intact, right anterior kc scab. Microbiology 12/30/20 10:43 Catheter Tip Catheter Tip Culture - Final 12/22/20 11:30 Blood Blood Culture - Final No Growth after 144 hours 12/22/20 11:20 Blood Blood Culture - Final No Growth after 144 hours 12/22/20 13:11 Sputum Gram Stain - Final 12/22/20 13:11 Sputum Sputum Culture - Final Klebsiella pneumoniae Enterobacter cloacae 12/22/20 16:57 Urine,Catheterized Urine Culture - Final - Labs CBC & Chem 7: 01/02/21 04:28 01/02/21 04:28 Labs: Abnormal Lab Results - Last 24 Hours (Table) 01/01/21 01/01/21 01/02/21 Range/Units 17:23 23:45 04:28 RBC 3.01 L (4.30-5.90) m/uL Hgb 7.4 L (13.0-17.5) gm/dL Hct 24.2 L (39.0-53.0) % MCH 24.7 L (25.0-35.0) pg MCHC 30.7 L (31.0-37.0) g/dL RDW 22.8 H (11.5-15.5) % ABG pH (7.35-7.45) ABG pO2 (83-108) mmHg ABG HCO3 (21-25) mmol/L ABG Total CO2 (19-24) mmol/L Chloride (98-107) mmol/L BUN (9-20) mg/dL POC Glucose (mg/dL) 140 H 105 H (75-99) mg/dL Calcium (8.4-10.2) mg/dL 01/02/21 01/02/21 Range/Units 04:28 08:20 RBC (4.30-5.90) m/uL Hgb (13.0-17.5) gm/dL Hct (39.0-53.0) % MCH (25.0-35.0) pg MCHC (31.0-37.0) g/dL RDW (11.5-15.5) % ABG pH 7.53 H (7.35-7.45) ABG pO2 72 L (83-108) mmHg ABG HCO3 30 H (21-25) mmol/L ABG Total CO2 32 H (19-24) mmol/L Chloride 108 H (98-107) mmol/L BUN 32 H (9-20) mg/dL POC Glucose (mg/dL) (75-99) mg/dL Calcium 7.9 L (8.4-10.2) mg/dL Microbiology - Last 24 Hours (Table) 12/30/20 10:43 Catheter Tip Culture - Final Catheter Tip Assessment and Plan Assessment: Acute on chronic hypoxic respiratory failure, mechanical ventilator-dependent, secondary to septic shock related to acute aspiration pneumonia with Klebsiella pneumoniae, Enterobacter Cloacae, possible acute UTI-follow cultures report no growth. Status post tracheostomy and PEG Bilateral severe mastoiditis with bilateral ear infection suspected per CT Nonsustained V. 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 Former nicotine dependence Stage II sacrum-coccyx ulcer, present on admission Hypoalbuminemia Hypernatremia Hypokalemia Plan: Continue on current medication regime ,monitoring and symptomatic treatment. Maintain nutritional support via PEG tube feedings ,IV antibiotics .magnesium supplementation as per replacement protocol previously ordered .Family discussing long-term that facility /select specialty versus hospice. Prognosis guarded given multiple complex medical issues. The impression and plan of care has been dictated as directed. : I performed a history and examination of this patient, discussed the same with the dictator. I agree with the dictator's note ,documented as a scribe. Any additional findings or plans will be noted.
[2021-01-02] MEDS ORDERED: MORPHINE SULFATE 2 MG/ML SYRINGE IV PRN (15:07)
[2021-01-02] MEDS ORDERED: MORPHINE SULFATE 2 MG/ML SYRINGE IVP ONE (15:17)
[2021-01-02] MEDS: HYDROmorphone 1 MG/ML 1 ML SYRINGE IVP PRN ×2 (15:54→21:09)
[2021-01-02 17:41] LABS: Glucose,Whole Blood 159 mg/dL (75-99)
--- NOTE | 2021-01-02 23:24 | PN ---
PROGRESS NOTE DATE OF SERVICE: 01/02/2021 REASON FOR FOLLOWUP: Aspiration pneumonia. INTERVAL HISTORY: The patient is currently afebrile. The patient seems slightly more awake and did respond to his name but did not communicate any further. The patient's respiratory status remains stable. FiO2 is stable and no diarrhea has been reported. PHYSICAL EXAMINATION: Blood pressure 119/71, pulse of 66, temperature 98. He is 100% on 25% FiO2. General description is an elderly male lying in bed in no distress. RESPIRATORY SYSTEM: Unlabored breathing with decreased breath sounds at the base. No wheeze. HEART: S1, S2. Regular rate and rhythm. ABDOMEN: Soft. No tenderness. Right leg is currently dressed. No obvious drainage on the dressing. LABS: Hemoglobin 7.4, white count 10.5, BUN of 32, creatinine 0.78. DIAGNOSTIC IMPRESSION AND PLAN: 1. Patient with aspiration pneumonia. Sputum has been positive for klebsiella and enterobacter, covered with Zosyn; to continue. 2. Patient with right lower extremity laceration. No cellulitis. Local care to continue with Aquacel Silver dressing. MMODL / IJN: [id number] /
[2021-01-02 23:37] LABS: Glucose,Whole Blood 88 mg/dL (75-99)
[2021-01-03] MEDS: IPRATROPIUM-ALBUTEROL 3 ML NEB INHALATION SCH ×7 (01:47→23:34)
[2021-01-03] MEDS: HYDROmorphone 1 MG/ML 1 ML SYRINGE IVP PRN ×5 (03:27→19:10)
[2021-01-03 04:21] LABS: Anisocytosis Moderate; Basophils % (A) 0 %; Eosinophils # (A) 0.2 k/uL (0-0.7); Eosinophils % (A) 2 %; HCT 24.1 % (39.0-53.0); HGB 7.1 gm/dL (13.0-17.5); Hypochromasia Marked; Lymphocytes # (A) 2.2 k/uL (1.0-4.8); Lymphocytes % (A) 24 %; MCH 24.2 pg (25.0-35.0); MCHC 29.6 g/dL (31.0-37.0); MCV 81.7 fL (80.0-100.0); Mean Platelet Volume 9.2; Microcytosis Moderate; Monocytes # (A) 0.3 k/uL (0-1.0); Monocytes % (A) 3 %; Neutrophils # (A) 6.3 k/uL (1.3-7.7); Neutrophils % (A) 69 %; Platelet Count 411 k/uL (150-450); RBC 2.95 m/uL (4.30-5.90); RDW 22.4 % (11.5-15.5); WBC 9.2 k/uL (3.8-10.6)
[2021-01-03 04:40] LABS: ABG Base Excess 7.2 mmol/L; ABG HCO3 31 mmol/L (21-25); ABG PCO2 43 mmHg (35-45); ABG PH 7.47 (7.35-7.45); ABG PO2 63 mmHg (83-108); ABG TCO2 32 mmol/L (19-24); Allen Test Performed? Yes
[2021-01-03 04:41] LABS: African American GFR (CKD) >90 (>60 ml/min/1.73 sqM); Anion Gap 6 mmol/L; Blood Urea Nitrogen 33 mg/dL (9-20); Calcium 7.7 mg/dL (8.4-10.2); Carbon Dioxide 28 mmol/L (22-30); Chloride 107 mmol/L (98-107); Glucose 92 mg/dL (74-99); Non-African American GFR(CKD) >90 (>60 ml/min/1.73 sqM); Potassium 3.3 mmol/L (3.5-5.1); Sodium 141 mmol/L (137-145)
[2021-01-03] MEDS ORDERED: Potassium Replacement Protocol 1 EACH MISC MISCELLANE PRN (05:04)
[2021-01-03] MEDS: POTASSIUM BICARBONATE/CIT AC 20 MEQ TABLET.EFF NG-TUBE SCH ×4 (05:19→17:04)
[2021-01-03 05:32] LABS: Glucose,Whole Blood 92 mg/dL (75-99)
[2021-01-03] MEDS: INSULIN ASPART (NovoLOG) 100 UNIT/ML VIAL SQ SCH ×4 (05:33→23:15)
--- NOTE | 2021-01-03 06:54 | P.PN ---
Subjective Progress Note Date: 01/03/21 75-year-old male patient with multiple medical problems and comorbidities, who is currently intubated on a mechanical ventilator and the patient has been on a mechanical ventilator since 12/22/2020. The patient was intubated for acute hypoxic respiratory failure related to septic shock due to an underlying urinary tract infection and gram-negative pneumonia/Klebsiella pneumonia and Enterobacter for which the patient required intubation mechanical ventilation. The patient is known to have a previous history of diabetes mellitus and COPD in addition to previous history of DVT and pulmonary embolism and the patient is demented on Xarelto and coronary artery disease and has a coronary stent in [facility]. 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 For now, the patient is Post tracheostomy tube insertion and the patient is a bivona #[address] on a mechanical ventilator. The patient is sedated with propofol running at 50 mcg/kg per minuteand the patient is calm and comfortable, symptoms of the mechanical ventilator. The patient is on assist control mode of ventilation at the rate of 28 with a tidal volume of 400 and FiO2 of 25% with a PEEP of 5. Chest x-ray was noted. Blood gases was noted. The patient has a PEG tube for enteral feeding and nutritional support. The patient is receiving enteral feeding for nutritional support. The patient remains on IV Zosyn covering for gram-negative pneumonia and UTI. He is currently on Lasix 40 mg IV on a daily basis. He is on IV Zosyn. He is on amiodarone 200 mg by mouth twice a day regarding his previous history of atrial fibrillation. IV fluids are running at 20 mL an hour. He is on IV Protonix. He is also on hydrocortisone 50 mg IV every 24 hours. This morning, the patient is being seen in follow-up on 01/01/2021. He is awake. He is on no sedation sedation was discontinued yesterday. His FiO2 is down to 25% with a PEEP of 5. He is following simple commands. No respiratory secretions. His blood gases from today is showing a combination of metabolic and respiratory alkalosis. PH is at 7.59 with a pCO2 of 34 and pO2 of 77. No chest x-ray from today. He does have a wound in his coccyx which is stage II. The patient is on a maintenance of 0.9 at the rate of 20 mL an hour. The patient is receiving vital high protein at the rate of 37 mL an hour through his PEG tube. On today's evaluation of 01/02/2021, the patient is sedated with propofol at the low dose of 10 mg/kg per minute. Sedation had to be out of yesterday the patient was becoming somewhat asynchronous with a mechanical ventilator. This morning he is on assist control mode and is calm and comfortable. Chest x-ray showed improvement in left lower lobe consolidation and infiltration. Nevertheless, the tracheostomy tube is sitting very high in the trachea and the sleep was done by at least 2 cm. Tracheostomy tube was consistently high. Currently is an assist-control mode of ventilation at the rate of 16 with a tidal volume of 400 and FiO2 of 25% with a PEEP of 5. After pushing in the tracheostomy tube by around 2 cm, airway pressure improved considerably. His current peak air pressures around 27. No significant orotracheal secretions. The patient has a Bivona tracheostomy tube in place. His current pulse ox is 97%. He is still on IV Zosyn regarding a polymicrobial pneumonia with Klebsiella and Enterobacter. The patient is also receiving enteral feeding for nutritional support and currently is on vital high protein at the rate of 37 mL an hour. Neurologically, the patient is quite comfortable. I was told by the nursing staff that he is not following commands. He opens his eyes spontaneously. He tracks. He smiles. He has not been consistently responding to verbal commands. Overnight, he became slightly tachycardic and this is probably related to the 2 positioning as the patient's to was high in the trachea and was causing some tachycardia and tachypnea. I think is able to cut down his sedation for now. He has a stage II coccygeal ulcer. No fever. No chills. No other significant events overnight. On 01/03/2021 the patient is off propofol. Is quite and calm and comfortable. He had to be placed on propofol for secondary with a mechanical ventilator and the propofol was discontinued after repositioning the tracheostomy tube. The patient has a Bivona trach tube #8 that was sitting high in the trachea. His airway pressures dropped significantly and following that she was given a trial of pressure support for a half an hour to one hour and later on he was placed back on assist control. This morning, after reviewing his excellent chest x- ray, I switched this patient back to a pressure support of 8 and a PEEP of 5 with an FiO2 of 25%. He seems to be tolerating it well for now. The blood gases from this morning while on assist-control showed a pH of 7.4 with a pCO2 of 39 and pO2 of 87. His white cell count is at 9.2 with a hemoglobin of 7.1 and electrolytes show a sodium level of 141 with potassium level of 3.3 that needs to be replaced and his BUN is at 33 with a creatinine of 0.6. His net fluid balance over the past 24 hours has been +652 mL and probably another 2.7 L positive and the patient would benefit from some diuretics to maintain an adequate fluid balance. He remains on IV Zosyn for now as a broad-spectrum antibiotic coverage for his gram-negative pneumonia. His cardiac rhythm is sinus and the patient remains on amiodarone and metoprolol for rate control and he is on no anticoagulants for now. He needs to be restarted back on Xarelto. Also, he is receiving enteral feeding for nutritional support with vital high protein at the rate of 49 mL an hour. Neurologically, he is waking up but he is not consistently following commands. Wound care is being performed. Stool for C. diff has been negative. Water flushes can be essentially stopped Objective - Vital Signs Vital signs: Vital Signs Temp 98.6 F 01/03/21 04:00 Pulse 92 01/03/21 06:00 Resp 27 H 01/03/21 06:00 BP 105/63 01/03/21 06:00 Pulse Ox 100 01/03/21 06:00 Intake & Output 01/02/21 01/02/21 01/03/21 06:59 18:59 06:59 Intake Total 2196.111 2858.110 9934 Output Total 362 310 351 Balance 6897.007 8879.513 1128 Weight 70.2 kg Intake: IV 1000 700 340 Magnesium Sulfate-D5w Pmx 100 1 gm In Dextrose/Water 1 100ml.bag @ 100 mls/hr IVPB Q1H [facility] Rx#: [id number] Piperacillin-Tazobactam 3 100 200 100 .375 gm In Sodium Chloride 0.9% 100 ml @ 25 mls/hr IVPB Q8HR [facility] Rx# :[id number] Potassium Chloride 10 meq 200 In Water For Injection 1 100ml.bag @ 100 mls/hr IVPB Q1H [facility] Rx#: [id number] Sodium Chloride 0.45% 1, 900 200 240 000 ml @ 20 mls/hr IV . Q24H [facility] Rx#:[id number] Intake, IV Titration 16.111 11.513 Amount propofoL 1,000 mg In 16.111 11.513 Empty Bag 1 bag @ Titrate IV .Q0M [facility] Rx#: [id number] Tube Feeding 580 539 539 Other 600 600 600 Output: Urine 362 310 350 Stool 1 Other: Voiding Method Indwelling Catheter Indwelling Catheter Indwelling Catheter ABP, PAP, CO, CI - Last Documented Arterial Blood Pressure 106/55 - Exam No acute distress, sedated, with a midline tracheostomy tube in place. The patient is calm and comfortable and the patient is currently off sedation. Synchronous with the mechanical ventilator. The tracheostomy tube line is cu rrently at 13 cm. He was switched to a pressure support mode of ventilation with a pressure support of 8 and a PEEP of 5 and he seems to be very much comfortable at this point in time. Head exam was generally normal. There was no scleral icterus or corneal arcus. Mucous membranes were moist. Neck was supple and without jugular venous distension, thyromegaly, or carotid bruits. Carotids were easily palpable bilaterally. There was no adenopathy. The patient has a tracheostomy tube in place. Cardiovascular examination reveals regular rhythm rate. S1-S2 normal. No S3 or S4. No discernible murmur noted. Heart sounds distant. Lungs reveal bilateral coarse rhonchi. Breath sounds equal. No crackles. No wheezes. Breath sounds are essentially unchanged. Abdomen soft bowel sounds are heard. No masses or tenderness. PEG tube noted. Extremities are intact. No cyanosis clubbing or edema. Left [id number] amputation. Examination of the skin revealed no evidence of significant rashes, suspicious appearing nevi or other concerning lesions. Neurologic examination Is showing no focal neurological deficit the patient is currently sedated and he is off the propofol. He is opening his eyes spontaneously. His response to verbal commands is not consistent. He is motor weakness no 4 extremities and he has global weakness. - Labs CBC & Chem 7: 01/03/21 03:25 01/03/21 03:25 Labs: Abnormal Lab Results - Last 24 Hours (Table) 01/01/21 01/02/21 01/02/21 Range/Units 04:20 08:20 12:20 RBC (4.30-5.90) m/uL Hgb (13.0-17.5) gm/dL Hct (39.0-53.0) % MCH (25.0-35.0) pg MCHC (31.0-37.0) g/dL RDW (11.5-15.5) % ABG pH 7.60 H* 7.53 H (7.35-7.45) ABG pO2 72 L (83-108) mmHg ABG HCO3 30 H (21-25) mmol/L ABG Total CO2 32 H (19-24) mmol/L ABG O2 Saturation (94-97) % Potassium (3.5-5.1) mmol/L BUN (9-20) mg/dL POC Glucose (mg/dL) 177 H (75-99) mg/dL Calcium (8.4-10.2) mg/dL 01/02/21 01/03/21 01/03/21 Range/Units 17:39 03:25 03:25 RBC 2.95 L (4.30-5.90) m/uL Hgb 7.1 L (13.0-17.5) gm/dL Hct 24.1 L (39.0-53.0) % MCH 24.2 L (25.0-35.0) pg MCHC 29.6 L (31.0-37.0) g/dL RDW 22.4 H (11.5-15.5) % ABG pH (7.35-7.45) ABG pO2 (83-108) mmHg ABG HCO3 (21-25) mmol/L ABG Total CO2 (19-24) mmol/L ABG O2 Saturation (94-97) % Potassium 3.3 L (3.5-5.1) mmol/L BUN 33 H (9-20) mg/dL POC Glucose (mg/dL) 159 H (75-99) mg/dL Calcium 7.7 L (8.4-10.2) mg/dL 01/03/21 Range/Units 04:30 RBC (4.30-5.90) m/uL Hgb (13.0-17.5) gm/dL Hct (39.0-53.0) % MCH (25.0-35.0) pg MCHC (31.0-37.0) g/dL RDW (11.5-15.5) % ABG pH 7.47 H (7.35-7.45) ABG pO2 63 L (83-108) mmHg ABG HCO3 31 H (21-25) mmol/L ABG Total CO2 32 H (19-24) mmol/L ABG O2 Saturation 93.0 L (94-97) % Potassium (3.5-5.1) mmol/L BUN (9-20) mg/dL POC Glucose (mg/dL) (75-99) mg/dL Calcium (8.4-10.2) mg/dL Assessment and Plan Plan: #1. Acute hypoxic respiratory failure related to septic shock possibly related to acute urinary tract infection and gram-negative pneumonia, related to Klebsiella pneumoniae and Enterobacter cloacae requiring intubation and placement on mechanical ventilator on 12/22/2020, COVID 19 PCR was negative. The patient is status post tracheostomy tube and PEG tube insertion for prolon ged respiratory failure. the chest x-ray still pneumonia and recovery of the left lower lobe consolidation. The patient currently has adequate weaning parameters and the rapid shallow breathing index that is less than 100 and the patient was placed on a pressure support of 8 and a PEEP of 5 and is currently generating a tidal volume of about 500 with a respiratory rate of 21 and a minute ventilation of 11 L. Tracheostomy is in a good location based on morning chest x-ray. He is in a positive fluid balance. #2. Acute urinary tract infection, urine culture has shown no growth. #3. Recent history of MSSA bacteremia in October 2020. #4. Previous history of recurrent sepsis and previous bacteremia. #5. History of left knee septic arthritis status post left [id number] amputation. #6. DM II. The patient is been adequately controlled in terms of his blood sugar and the patient is currently being covered with sliding scale #7. History of COPD. #8. History of PE and DVT, on Xarelto #9. History of coronary artery disease with previous stent placement. #10. Former nicotine dependence. #11. Anxiety/depression. #12. Chronic back pain with history of multiple compression fractures in his thoracic and lumbar spine at T12-L1, L3-L4. #13. Stage II on sacrum, present on admission. #14. Acute kidney injury secondary to sepsis and acute tubular necrosis with septic shock, resolved. #15. Acute lactic acidosis related to sepsis and septic shock, improved. #16. Acute encephalopathy, likely toxic metabolic. #17. Episode of SVT on 12/25/2020 requiring adenosine, he is currently in sinus mechanism. #18. Status post PEG tube placement and tracheostomy tube placement, on December 29. #19, hypernatremia , recovered and will get rid of the free water through his OG and the patient is receiving enteral feeding for nutritional support through his PEG tube. Plan: Stop the propofol and keep the patient off sedation for now Monitor mental status Keep the patient on a pressure support mode of ventilation with a pressure support of 8 and a PEEP of 5 Keep the patient off the water flushes and sodium level has normalized Chest x-ray was noted Blood gases was noted Xarelto 10 mg by mouth daily Lasix 40 mg IV push every 24 hours Enteral feeding for nutritional support with vital high protein Continue IV Zosyn Local wound care Family has not decided on hospice and they seem to be leaning more to hours long-term [facility] facility. Critically care evaluation, more than 30 minutes. Time with Patient: Greater than 30
[2021-01-03] MEDS: SODIUM BICARBONATE TAB 650 MG TAB PO SCH ×3 (07:58→20:46)
[2021-01-03] MEDS: PIPERACILLIN-TAZOBACTAM 3.375 GM in SODIUM CHLORIDE 0.9% 100 ML IVPB SCH ×3 (07:58→23:41)
[2021-01-03] MEDS: AMIODARONE 200 MG TAB PO SCH ×2 (07:58→20:46)
[2021-01-03] MEDS: RIVAROXABAN 10 MG TAB PO SCH (07:58)
[2021-01-03] MEDS: PANTOPRAZOLE 40 MG/10 ML VIAL IV SCH (07:58)
[2021-01-03] MEDS: CHLORHEXIDINE GLUCONATE 15 ML CUP MUCOUS MEM SCH ×2 (07:58→20:46)
[2021-01-03] MEDS: METOPROLOL TARTRATE 50 MG TAB PO SCH ×2 (07:58→20:46)
[2021-01-03] MEDS: HYDROCORTISONE SUCCINATE 100 MG/2 ML VIAL IV SCH (07:59)
[2021-01-03] MEDS: FUROSEMIDE 10 MG/ML 4 ML VIAL IV SCH (07:59)
--- NOTE | 2021-01-03 08:48 | XR ---
EXAMINATION TYPE: XR chest 1V portable DATE OF EXAM: 01/03/2021 COMPARISON: 01/02/2021 INDICATION: Ventilated, difficulty breathing TECHNIQUE: Single frontal view of the chest is obtained. FINDINGS: The heart size is normal. The pulmonary vasculature is slightly prominent. Diffuse subsegmental infiltrates are present greater at the right costophrenic angle and along the le ft base. Findings are similar to comparison. Tracheostomy tube is in the midline. Left PICC line has tip in the brachiocephalic superior vena cava junction region. IMPRESSION: 1. Mild scattered infiltrates greater at the lung bases are nonspecific. Correlate for atypical pneum onia and pulmonary edema. 2. Lines and catheters discussed above
--- NOTE | 2021-01-03 11:14 | P.PN ---
Subjective Progress Note Date: 01/03/21 CHIEF COMPLAINT: Shortness of breath HISTORY OF PRESENT ILLNESS: Patient is status post trach and PEG tube placement. He is tolerating his tube feeds. No residual reported. Tube feedings at 49 mL per hour which is goal. Afebrile. WBC 9.2 PHYSICAL EXAM: VITAL SIGNS: Reviewed. GENERAL: Well-developed in no acute distress. HEENT: No sclera icterus. Extraocular movements grossly intact. Moist buccal mucosa. Head is atraumatic, normocephalic. Tracheostomy site clean dry and intact ABDOMEN: Soft. Nondistended. Nontender. PEG tube site clean dry and intact NEUROLOGIC: On mechanical ventilation and sedated ASSESSMENT: 1. Acute on chronic hypoxic respiratory failure status post tracheostomy placement 2. Severe protein calorie malnutrition status post PEG tube placement PLAN: -Continue supportive care -Continue ICU management -Continue tube feedings Physician Waste Water Operator note has been reviewed by physician. Signing provider agrees with the documented findings, assessment, and plan of care. Objective - Vital Signs Vital signs: Vital Signs Temp 100.1 F H 01/03/21 08:00 Pulse 80 01/03/21 11:06 Resp 20 01/03/21 11:00 BP 95/60 01/03/21 11:00 Pulse Ox 97 01/03/21 11:00 Intake & Output 01/02/21 01/03/21 01/03/21 18:59 06:59 18:59 Intake Total 7930.899 9829 475 Output Total 310 351 545 Balance 8798.991 5381 -70 Intake: IV 700 340 200 Magnesium Sulfate-D5w Pmx 100 1 gm In Dextrose/Water 1 100ml.bag @ 100 mls/hr IVPB Q1H [facility] Rx#: [id number] Piperacillin-Tazobactam 3 200 100 100 .375 gm In Sodium Chloride 0.9% 100 ml @ 25 mls/hr IVPB Q8HR [facility] Rx# :[id number] Potassium Chloride 10 meq 200 In Water For Injection 1 100ml.bag @ 100 mls/hr IVPB Q1H [facility] Rx#: [id number] Sodium Chloride 0.45% 1, 200 240 100 000 ml @ 20 mls/hr IV . Q24H [facility] Rx#:[id number] Intake, IV Titration 11.513 Amount propofoL 1,000 mg In 11.513 Empty Bag 1 bag @ Titrate IV .Q0M [facility] Rx#: [id number] Tube Feeding 539 539 245 Other 600 600 30 Output: Urine 310 350 545 Stool 1 Other: Voiding Method Indwelling Catheter Indwelling Catheter Indwelling Catheter ABP, PAP, CO, CI - Last Documented Arterial Blood Pressure 106/55 - Labs CBC & Chem 7: 01/03/21 03:25 01/03/21 03:25 Labs: Abnormal Lab Results - Last 24 Hours (Table) 01/01/21 01/02/21 01/02/21 Range/Units 04:20 12:20 17:39 RBC (4.30-5.90) m/uL Hgb (13.0-17.5) gm/dL Hct (39.0-53.0) % MCH (25.0-35.0) pg MCHC (31.0-37.0) g/dL RDW (11.5-15.5) % ABG pH 7.60 H* (7.35-7.45) ABG pO2 (83-108) mmHg ABG HCO3 (21-25) mmol/L ABG Total CO2 (19-24) mmol/L ABG O2 Saturation (94-97) % Potassium (3.5-5.1) mmol/L BUN (9-20) mg/dL POC Glucose (mg/dL) 177 H 159 H (75-99) mg/dL Calcium (8.4-10.2) mg/dL 01/03/21 01/03/21 01/03/21 Range/Units 03:25 03:25 04:30 RBC 2.95 L (4.30-5.90) m/uL Hgb 7.1 L (13.0-17.5) gm/dL Hct 24.1 L (39.0-53.0) % MCH 24.2 L (25.0-35.0) pg MCHC 29.6 L (31.0-37.0) g/dL RDW 22.4 H (11.5-15.5) % ABG pH 7.47 H (7.35-7.45) ABG pO2 63 L (83-108) mmHg ABG HCO3 31 H (21-25) mmol/L ABG Total CO2 32 H (19-24) mmol/L ABG O2 Saturation 93.0 L (94-97) % Potassium 3.3 L (3.5-5.1) mmol/L BUN 33 H (9-20) mg/dL POC Glucose (mg/dL) (75-99) mg/dL Calcium 7.7 L (8.4-10.2) mg/dL
[2021-01-03 11:19] VITALS: BMI 25.0
[2021-01-03 11:56] LABS: Glucose,Whole Blood 182 mg/dL (75-99)
[2021-01-03] MEDS: SODIUM CHLORIDE 0.45% 1,000 ML IV SCH (12:36)
--- NOTE | 2021-01-03 13:37 | P.PN ---
Subjective Progress Note Date: 01/03/21 Remains vent dependent, with FiO2 25%/+5 of PEEP. Maintained on Zosyn for aspiration pneumonia. Sputum culture reporting Klebsiella pneumoniae and Enterobacter cloacae. Chest x-ray reporting improving bibasilar infiltrates. Telemetry sinus tach. with poss proximal SVT earlier this morning, beta lisa increased in addition to verapamil. Evaluated by surgery and scheduled for trach and PEG tomorrow. 12/27/2020 remains vent dependent, FiO2 25%/+5 of PEEP. Last night developed a 12 second run of nonsustained V. tach, placed on amiodarone drip. Magnesium 1.8. He received potassium supplementation yesterday, potassium 3.8. Hemoglobin 9, platelets 191. Continues on Zosyn, afebrile, WBC 11.8. Increased edema of extremities. Received a dose of Lasix 60 mg yesterday, urine output of 1500 MLS reflected in 24 hour I&O, positive fluid balance of 1382. Renal function improving, BUN 24, creatinine 0.78. Chest x-ray Yesterday attempted sedation holiday, patient did not tolerate, became tachypneic, agitated, unable to follow commands. Chest x-ray reporting worsening bibasilar infiltrates, at electasis, atypical pneumonia, early pulmonary , prominent pulmonary vascular markings. Patient initially scheduled for trach and peg, currently declined procedure. Tolerating tube feeds at goal with minimal to no residual. 12/28/2020 remains vent dependent, FiO2 25%/+5 of PEEP. Patient's third spacing, skin fragile with multiple skin tears, albumin 1.9. No further runs of V. tach reported. Sedation holiday attempted yesterday, patient did not tolerate it, became tachycardic, tachypneic, unable to follow commands. 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 Worsening bilateral severe mastoiditis with bilateral ear infection spread suspected. Maintained on Zosyn. Chest x-ray reporting improving bibasilar infiltrates .T- max 100, WBC 12.6. Receiving potassium supplementation for potassium at 3.1, magnesium 1.8. Gentle diuresing with Lasix IV with 24-hour I&O reporting a positive fluid balance of 816. BUN 22, creatinine 0.68. The family currently discussing trach and PEG and has not yet consented. 12/29/2020 Vent dependent, FiO2 25%/5 of PEEP. Sedated on diprovan. Continues on Zosyn, T-max 100.3, WBC 16.8.Chest x-ray reports chronic parenchymal changes without suspicious focal airspace opacity or pneumothorax, with tiny bilateral pleural effusions. Family has consented to trach and PEG-scheduled for today. Hemoglobin 8.4. Diuresing on Lasix IV push with 24-hour I&O reporting a positive fluid balance ,renal function stable. 01/01/2021 vent dependent, FiO2 25% FiO2/+5 of PEEP, status post trach and PEG on Friday, tolerated procedure well. Chest x-ray reporting persistent patchy basilar infiltrates, improving. Sedation discontinued yesterday and remains off. Opens eyes to name, attempting to talk, follows simple commands. Continues on Zosyn, T-max 101.1 WBC 10.8. Hypernatremia, sodium 149, IV fluids increased. Potassium 3.2, BUN 29, creatinine 0.9. 01/02/2021 remains vent dependent, unchanged vent settings, FiO2 25%/+5 of PEEP. Chest x-ray reporting tracheostomy tube overlying the tracheal air column , bilateral interstitial changes, patchy density within the lungs, similar to prior exam .Attempted sedation holiday yesterday patient unable to tolerate;became tachypneic, asynchronous with the vent and Diprovan resumed. Continue on amiodarone and metoprolol, telemetry sinus rhythm. Tolerating tube feeds via PEG tube with minimal to no residuals. Sodium improved,142. Magnesium 1.6. 01/03/2021 currently off sedation, vent dependent, FiO2 25%/+5 peep, chest x-ray reporting mild scattered infiltrates greater at the lung bases, nonspecific, similar. Maintained on IV antibiotics for pneumonia. Afebrile, WBC WNL,Tolerating tubefeeds. Hemoglobin 7.1, ABGs noted, potassium 3.3, being replaced. Magnesium 2. Diuresing on Lasix IV push, with 24-hour I&O reflecting a positive fluid balance. Telemetry sinus rhythm. Family remains undecided regarding long-term vent facility versus hospice. Objective - Vital Signs Vital signs: Vital Signs Temp 100.1 F H 01/03/21 08:00 Pulse 80 01/03/21 11:14 Resp 20 01/03/21 11:00 BP 95/60 01/03/21 11:00 Pulse Ox 97 01/03/21 11:00 Intake & Output 01/02/21 01/03/21 01/03/21 18:59 06:59 18:59 Intake Total 0004.397 0057 475 Output Total 310 351 545 Balance 2091.072 7236 -70 Weight 70.2 kg Intake: IV 700 340 200 Magnesium Sulfate-D5w Pmx 100 1 gm In Dextrose/Water 1 100ml.bag @ 100 mls/hr IVPB Q1H SURYA Rx#: [id number] Piperacillin-Tazobactam 3 200 100 100 .375 gm In Sodium Chloride 0.9% 100 ml @ 25 mls/hr IVPB Q8HR SURYA Rx# :[id number] Potassium Chloride 10 meq 200 In Water For Injection 1 100ml.bag @ 100 mls/hr IVPB Q1H SURYA Rx#: [id number] Sodium Chloride 0.45% 1, 200 240 100 000 ml @ 20 mls/hr IV . Q24H SURYA Rx#:[id number] Intake, IV Titration 11.513 Amount propofoL 1,000 mg In 11.513 Empty Bag 1 bag @ Titrate IV .Q0M SURYA Rx#: [id number] Tube Feeding 539 539 245 Other 600 600 30 Output: Urine 310 350 545 Stool 1 Other: Voiding Method Indwelling Catheter Indwelling Catheter Indwelling Catheter ABP, PAP, CO, CI - Last Documented Arterial Blood Pressure 106/55 - Exam - Exam General: Intubated, Vitals reviewed Lungs: coarse breath sounds, rhonchi, no wheezes or rales CV: Regular rate and rhythm, systolic murmur. Abdomen: soft, nondistended, PEG tube present .positive bowel sounds Skin: generalized edema-increased, warm and dry. Microbiology 12/30/20 10:43 Catheter Tip Catheter Tip Culture - Final 12/22/20 11:30 Blood Blood Culture - Final No Growth after 144 hours 12/22/20 11:20 Blood Blood Culture - Final No Growth after 144 hours 12/22/20 13:11 Sputum Gram Stain - Final 12/22/20 13:11 Sputum Sputum Culture - Final Klebsiella pneumoniae Enterobacter cloacae 12/22/20 16:57 Urine,Catheterized Urine Culture - Final - Labs CBC & Chem 7: 01/03/21 03:25 01/03/21 12:04 Labs: Abnormal Lab Results - Last 24 Hours (Table) 01/01/21 01/02/21 01/02/21 Range/Units 04:20 12:20 17:39 RBC (4.30-5.90) m/uL Hgb (13.0-17.5) gm/dL Hct (39.0-53.0) % MCH (25.0-35.0) pg MCHC (31.0-37.0) g/dL RDW (11.5-15.5) % ABG pH 7.60 H* (7.35-7.45) ABG pO2 (83-108) mmHg ABG HCO3 (21-25) mmol/L ABG Total CO2 (19-24) mmol/L ABG O2 Saturation (94-97) % Potassium (3.5-5.1) mmol/L BUN (9-20) mg/dL POC Glucose (mg/dL) 177 H 159 H (75-99) mg/dL Calcium (8.4-10.2) mg/dL 01/03/21 01/03/21 01/03/21 Range/Units 03:25 03:25 04:30 RBC 2.95 L (4.30-5.90) m/uL Hgb 7.1 L (13.0-17.5) gm/dL Hct 24.1 L (39.0-53.0) % MCH 24.2 L (25.0-35.0) pg MCHC 29.6 L (31.0-37.0) g/dL RDW 22.4 H (11.5-15.5) % ABG pH 7.47 H (7.35-7.45) ABG pO2 63 L (83-108) mmHg ABG HCO3 31 H (21-25) mmol/L ABG Total CO2 32 H (19-24) mmol/L ABG O2 Saturation 93.0 L (94-97) % Potassium 3.3 L (3.5-5.1) mmol/L BUN 33 H (9-20) mg/dL POC Glucose (mg/dL) (75-99) mg/dL Calcium 7.7 L (8.4-10.2) mg/dL 01/03/21 Range/Units 11:54 RBC (4.30-5.90) m/uL Hgb (13.0-17.5) gm/dL Hct (39.0-53.0) % MCH (25.0-35.0) pg MCHC (31.0-37.0) g/dL RDW (11.5-15.5) % ABG pH (7.35-7.45) ABG pO2 (83-108) mmHg ABG HCO3 (21-25) mmol/L ABG Total CO2 (19-24) mmol/L ABG O2 Saturation (94-97) % Potassium (3.5-5.1) mmol/L BUN (9-20) mg/dL POC Glucose (mg/dL) 182 H (75-99) mg/dL Calcium (8.4-10.2) mg/dL Assessment and Plan Assessment: Acute on chronic hypoxic respiratory failure, mechanical ventilator-dependent, secondary to septic shock related to acute aspiration pneumonia with Klebsiella pneumoniae, Enterobacter Cloacae, possible acute UTI-follow cultures report no growth. Status post tracheostomy and PEG Bilateral severe mastoiditis with bilateral ear infection suspected per CT Nonsustained V. 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 Former nicotine dependence Stage II sacrum-coccyx ulcer, present on admission Hypoalbuminemia Hypernatremia, resolved Hypokalemia Severe Protein calorie malnutrition Plan: Continue on current medication regime ,monitoring and symptomatic treatment. Maintain nutritional support via PEG tube feedings ,IV antibiotics, potassium supplementation. Family undecided regarding long-term that facility /select specialty versus hospice. Prognosis guarded given multiple complex medical issues. Discharge planning in progress for possibly select specialty, with further discussion with family via PCP, Dr. Clarence Steven. The impression and plan of care has been dictated as directed. : I performed a history and examination of this patient, discussed the same with the dictator. I agree with the dictator's note ,documented as a scribe. Any additional findings or plans will be noted.
--- NOTE | 2021-01-03 15:22 | PN ---
PROGRESS NOTE DATE OF SERVICE: 01/03/2021 REASON FOR FOLLOWUP: Aspiration pneumonia. INTERVAL HISTORY: The patient did a low-grade fever of 100.1 this morning. Afebrile since then. The patient is having low blood pressure. FiO2 is currently at 25%. No significant purulent secretions in the ET or diarrhea reported by the nursing staff. PHYSICAL EXAMINATION: Blood pressure is 82/61, pulse of 69, temperature 99.2. He is 96% on 25% FiO2. General description is an elderly male lying in bed in no distress. RESPIRATORY SYSTEM: Unlabored breathing with decreased breath sounds at the base. No wheeze. HEART: S1, S2. Regular rate and rhythm. ABDOMEN: Soft. No tenderness. LABS: Hemoglobin is 7.9, white count 9.2, BUN of 33, creatinine 0.69. DIAGNOSTIC IMPRESSION AND PLAN: Patient with klebsiella and enterobacter pneumonia, likely aspiration etiology, for which the patient is currently covered with Zosyn. The patient did have slight hypotension ,overall prognosis remains guarded. Continue with supportive care. MMODL / IJN: [id number] / [facility] [place]
[2021-01-03 17:50] LABS: Glucose,Whole Blood 175 mg/dL (75-99)
[2021-01-03 23:16] LABS: Glucose,Whole Blood 104 mg/dL (75-99)
[2021-01-04] MEDS: HYDROmorphone 1 MG/ML 1 ML SYRINGE IVP PRN ×3 (00:05→10:28)
[2021-01-04] MEDS: IPRATROPIUM-ALBUTEROL 3 ML NEB INHALATION SCH ×4 (03:49→15:10)
[2021-01-04 05:13] LABS: Allen Test Performed? Yes
[2021-01-04 05:14] LABS: ABG Base Excess 10.6 mmol/L; ABG HCO3 33 mmol/L (21-25); ABG PCO2 40 mmHg (35-45); ABG PH 7.53 (7.35-7.45); ABG PO2 77 mmHg (83-108); ABG TCO2 35 mmol/L (19-24)
[2021-01-04 05:40] LABS: Glucose,Whole Blood 118 mg/dL (75-99)
[2021-01-04] MEDS: INSULIN ASPART (NovoLOG) 100 UNIT/ML VIAL SQ SCH ×2 (05:46→15:27)
[2021-01-04 06:08] LABS: Anisocytosis Moderate; Basophils % (A) 0 %; Eosinophils # (A) 0.2 k/uL (0-0.7); Eosinophils % (A) 2 %; HCT 21.2 % (39.0-53.0); Hypochromasia Marked; Lymphocytes # (A) 1.6 k/uL (1.0-4.8); Lymphocytes % (A) 18 %; MCH 23.7 pg (25.0-35.0); MCHC 29.5 g/dL (31.0-37.0); MCV 80.5 fL (80.0-100.0); Mean Platelet Volume 9.3; Microcytosis Moderate; Monocytes # (A) 0.2 k/uL (0-1.0); Monocytes % (A) 2 %; Neutrophils # (A) 6.8 k/uL (1.3-7.7); Neutrophils % (A) 77 %; Platelet Count 496 k/uL (150-450); RBC 2.64 m/uL (4.30-5.90); RDW 22.2 % (11.5-15.5); WBC 8.9 k/uL (3.8-10.6)
[2021-01-04 06:18] LABS: HGB 6.3 gm/dL (13.0-17.5)
[2021-01-04 06:21] LABS: African American GFR (CKD) >90 (>60 ml/min/1.73 sqM); Anion Gap 6 mmol/L; Blood Urea Nitrogen 32 mg/dL (9-20); Calcium 7.9 mg/dL (8.4-10.2); Carbon Dioxide 31 mmol/L (22-30); Chloride 105 mmol/L (98-107); Glucose 111 mg/dL (74-99); Non-African American GFR(CKD) 86 (>60 ml/min/1.73 sqM); Potassium 3.3 mmol/L (3.5-5.1); Sodium 142 mmol/L (137-145)
[2021-01-04] MEDS: POTASSIUM BICARBONATE/CIT AC 20 MEQ TABLET.EFF NG-TUBE SCH ×2 (06:32→10:14)
--- NOTE | 2021-01-04 07:14 | XR ---
EXAMINATION TYPE: XR chest 1V portable DATE OF EXAM: 01/04/2021 HISTORY: Shortness of breath. COMPARISON: 01/03/2021 TECHNIQUE: Single view of the chest is submitted. FINDINGS: Demonstrated are scattered senescent parenchymal change. Coarse infiltrates persist bilaterally without significant change. The heart is stable. Hilar and mediastinal structures are within normal limits. Degenerative changes are seen of the dorsal spine. IMPRESSION: 1. Coarse infiltrates persist bilaterally without significant change.
--- NOTE | 2021-01-04 07:15 | P.PN ---
Subjective Progress Note Date: 01/04/21 75-year-old male patient with multiple medical problems and comorbidities, who is currently intubated on a mechanical ventilator and the patient has been on a mechanical ventilator since 12/22/2020. The patient was intubated for acute hypoxic respiratory failure related to septic shock due to an underlying urinary tract infection and gram-negative pneumonia/Klebsiella pneumonia and Enterobacter for which the patient required intubation mechanical ventilation. The patient is known to have a previous history of diabetes mellitus and COPD in addition to previous history of DVT and pulmonary embolism and the patient is demented on Xarelto and coronary artery disease and has a coronary stent in [facility]. 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 For now, the patient is Post tracheostomy tube insertion and the patient is a bivona #[address] on a mechanical ventilator. The patient is sedated with propofol running at 50 mcg/kg per minuteand the patient is calm and comfortable, symptoms of the mechanical ventilator. The patient is on assist control mode of ventilation at the rate of 28 with a tidal volume of 400 and FiO2 of 25% with a PEEP of 5. Chest x-ray was noted. Blood gases was noted. The patient has a PEG tube for enteral feeding and nutritional support. The patient is receiving enteral feeding for nutritional support. The patient remains on IV Zosyn covering for gram-negative pneumonia and UTI. He is currently on Lasix 40 mg IV on a daily basis. He is on IV Zosyn. He is on amiodarone 200 mg by mouth twice a day regarding his previous history of atrial fibrillation. IV fluids are running at 20 mL an hour. He is on IV Protonix. He is also on hydrocortisone 50 mg IV every 24 hours. This morning, the patient is being seen in follow-up on 01/01/2021. He is awake. He is on no sedation sedation was discontinued yesterday. His FiO2 is down to 25% with a PEEP of 5. He is following simple commands. No respiratory secretions. His blood gases from today is showing a combination of metabolic and respiratory alkalosis. PH is at 7.59 with a pCO2 of 34 and pO2 of 77. No chest x-ray from today. He does have a wound in his coccyx which is stage II. The patient is on a maintenance of 0.9 at the rate of 20 mL an hour. The patient is receiving vital high protein at the rate of 37 mL an hour through his PEG tube. On today's evaluation of 01/02/2021, the patient is sedated with propofol at the low dose of 10 mg/kg per minute. Sedation had to be out of yesterday the patient was becoming somewhat asynchronous with a mechanical ventilator. This morning he is on assist control mode and is calm and comfortable. Chest x-ray showed improvement in left lower lobe consolidation and infiltration. Nevertheless, the tracheostomy tube is sitting very high in the trachea and the sleep was done by at least 2 cm. Tracheostomy tube was consistently high. Currently is an assist-control mode of ventilation at the rate of 16 with a tidal volume of 400 and FiO2 of 25% with a PEEP of 5. After pushing in the tracheostomy tube by around 2 cm, airway pressure improved considerably. His current peak air pressures around 27. No significant orotracheal secretions. The patient has a Bivona tracheostomy tube in place. His current pulse ox is 97%. He is still on IV Zosyn regarding a polymicrobial pneumonia with Klebsiella and Enterobacter. The patient is also receiving enteral feeding for nutritional support and currently is on vital high protein at the rate of 37 mL an hour. Neurologically, the patient is quite comfortable. I was told by the nursing staff that he is not following commands. He opens his eyes spontaneously. He tracks. He smiles. He has not been consistently responding to verbal commands. Overnight, he became slightly tachycardic and this is probably related to the 2 positioning as the patient's to was high in the trachea and was causing some tachycardia and tachypnea. I think is able to cut down his sedation for now. He has a stage II coccygeal ulcer. No fever. No chills. No other significant events overnight. On 01/03/2021 the patient is off propofol. Is quite and calm and comfortable. He had to be placed on propofol for secondary with a mechanical ventilator and the propofol was discontinued after repositioning the tracheostomy tube. The patient has a Bivona trach tube #8 that was sitting high in the trachea. His airway pressures dropped significantly and following that she was given a trial of pressure support for a half an hour to one hour and later on he was placed back on assist control. This morning, after reviewing his excellent chest x- ray, I switched this patient back to a pressure support of 8 and a PEEP of 5 with an FiO2 of 25%. He seems to be tolerating it well for now. The blood gases from this morning while on assist-control showed a pH of 7.4 with a pCO2 of 39 and pO2 of 87. His white cell count is at 9.2 with a hemoglobin of 7.1 and electrolytes show a sodium level of 141 with potassium level of 3.3 that needs to be replaced and his BUN is at 33 with a creatinine of 0.6. His net fluid balance over the past 24 hours has been +652 mL and probably another 2.7 L positive and the patient would benefit from some diuretics to maintain an adequate fluid balance. He remains on IV Zosyn for now as a broad-spectrum antibiotic coverage for his gram-negative pneumonia. His cardiac rhythm is sinus and the patient remains on amiodarone and metoprolol for rate control and he is on no anticoagulants for now. He needs to be restarted back on Xarelto. Also, he is receiving enteral feeding for nutritional support with vital high protein at the rate of 49 mL an hour. Neurologically, he is waking up but he is not consistently following commands. Wound care is being performed. Stool for C. diff has been negative. Water flushes can be essentially stopped 01/04/2021 the patient remains off propofol. On yesterday's evaluation was able to put him on a pressure support mode and he went on that mode for approximately 10 hours. He was on a pressure support of 8 and a PEEP of 5. Ultimately got a little bit tired and tachypneic and was placed back on assist control. This morning he is on a rate of 16 with tidal volume of 400 and FiO2 of 25% with a PEEP of 5. He is on no sedation. His resting comfortably in bed. Hemoglobin dropped down to 6.3. Note that he was restarted back on Xarelto yesterday. Nevertheless, the patient is not showing any signs of bleeding. He has a PEG tube in place and is receiving also enteral feeding for nutritional support. Left gastroc patient was in aeration of 7.53 with a pCO2 of 40 and pO2 of 77. His platelet count is at 496. The chest x-ray from today is showing adequate positioning of the the tracheostomy tube. No focal consolidation. No airspace disease. The patient did have a left lower lobe consolidation which was impro ving on previous chest x-rays and the chest x-ray from today is showing some limited infiltration in the left lung base. As mentioned, the tracheostomy tube is in a good location and there is no evidence of any pneumothorax patient PICC line in the left upper extremity. He is having regular bowel movements. His extremity ventilator. He is known to have multiple medical positive comorbidities. The family had a meeting yesterday and they decided to go with comfort care measures today. Around 4:00. As such, the plan is to proceed with comfort care measures this afternoon. He remains on IV Zosyn regarding his gram-negative pneumonia. Objective - Vital Signs Vital signs: Vital Signs Temp 99.9 F H 01/04/21 04:00 Pulse 98 01/04/21 07:00 Resp 16 01/04/21 07:00 BP 101/63 01/04/21 07:00 Pulse Ox 98 01/04/21 07:00 Intake & Output 01/03/21 01/04/21 01/04/21 18:59 06:59 18:59 Intake Total 1118 1018 69 Output Total 830 390 30 Balance 288 628 39 Weight 70.2 kg 70.5 kg Intake: IV 440 340 20 Piperacillin-Tazobactam 3 200 100 .375 gm In Sodium Chloride 0.9% 100 ml @ 25 mls/hr IVPB Q8HR SURYA Rx# :[id number] Sodium Chloride 0.45% 1, 240 240 20 000 ml @ 20 mls/hr IV . Q24H SURYA Rx#:[id number] Tube Feeding 588 588 49 Other 90 90 Output: Urine 830 390 30 Other: Voiding Method Indwelling Catheter Indwelling Catheter ABP, PAP, CO, CI - Last Documented Arterial Blood Pressure 106/55 - Exam No acute distress, sedated, with a midline tracheostomy tube in place. The patient is calm and comfortable and the patient is currently off sedation. Synchronous with the mechanical ventilator. The tracheostomy tube line is currently at 13 cm. Head exam was generally normal. There was no scleral icterus or corneal arcus. Mucous membranes were moist. Neck was supple and without jugular venous distension, thyromegaly, or carotid bruits. Carotids were easily palpable bilaterally. There was no adenopathy. The patient has a tracheostomy tube in place. Cardiovascular examination reveals regular rhythm rate. S1-S2 normal. No S3 or S4. No discernible murmur noted. Heart sounds distant. Lungs reveal bilateral coarse rhonchi. Breath sounds equal. No crackles. No wheezes. Breath sounds are essentially unchanged. Abdomen soft bowel sounds are heard. No masses or tenderness. PEG tube noted. Extremities are intact. No cyanosis clubbing or edema. Left [id number] amputation. Examination of the skin revealed no evidence of significant rashes, suspicious a ppearing nevi or other concerning lesions. Neurologic examination Is showing no focal neurological deficit the patient is currently sedated and he is off the propofol. He is opening his eyes spont aneously. His response to verbal commands is not consistent. He is motor weakness no 4 extremities and he has global weakness. - Labs CBC & Chem 7: 01/04/21 05:11 01/04/21 05:11 Labs: Abnormal Lab Results - Last 24 Hours (Table) 01/03/21 01/03/21 01/03/21 Range/Units 11:54 17:49 23:15 RBC (4.30-5.90) m/uL Hgb (13.0-17.5) gm/dL Hct (39.0-53.0) % MCH (25.0-35.0) pg MCHC (31.0-37.0) g/dL RDW (11.5-15.5) % Plt Count (150-450) k/uL ABG pH (7.35-7.45) ABG pO2 (83-108) mmHg ABG HCO3 (21-25) mmol/L ABG Total CO2 (19-24) mmol/L Potassium (3.5-5.1) mmol/L Carbon Dioxide (22-30) mmol/L BUN (9-20) mg/dL Glucose (74-99) mg/dL POC Glucose (mg/dL) 182 H 175 H 104 H (75-99) mg/dL Calcium (8.4-10.2) mg/dL 01/04/21 01/04/21 01/04/21 Range/Units 05:08 05:11 05:11 RBC 2.64 L (4.30-5.90) m/uL Hgb 6.3 L* (13.0-17.5) gm/dL Hct 21.2 L (39.0-53.0) % MCH 23.7 L (25.0-35.0) pg MCHC 29.5 L (31.0-37.0) g/dL RDW 22.2 H (11.5-15.5) % Plt Count 496 H (150-450) k/uL ABG pH 7.53 H (7.35-7.45) ABG pO2 77 L (83-108) mmHg ABG HCO3 33 H (21-25) mmol/L ABG Total CO2 35 H (19-24) mmol/L Potassium 3.3 L (3.5-5.1) mmol/L Carbon Dioxide 31 H (22-30) mmol/L BUN 32 H (9-20) mg/dL Glucose 111 H (74-99) mg/dL POC Glucose (mg/dL) (75-99) mg/dL Calcium 7.9 L (8.4-10.2) mg/dL 01/04/21 Range/Units 05:39 RBC (4.30-5.90) m/uL Hgb (13.0-17.5) gm/dL Hct (39.0-53.0) % MCH (25.0-35.0) pg MCHC (31.0-37.0) g/dL RDW (11.5-15.5) % Plt Count (150-450) k/uL ABG pH (7.35-7.45) ABG pO2 (83-108) mmHg ABG HCO3 (21-25) mmol/L ABG Total CO2 (19-24) mmol/L Potassium (3.5-5.1) mmol/L Carbon Dioxide (22-30) mmol/L BUN (9-20) mg/dL Glucose (74-99) mg/dL POC Glucose (mg/dL) 118 H (75-99) mg/dL Calcium (8.4-10.2) mg/dL Assessment and Plan Plan: #1. Acute hypoxic respiratory failure related to septic shock possibly related to acute urinary tract infection and gram-negative pneumonia, related to Klebsiella pneumoniae and Enterobacter cloacae requiring intubation and p lacement on mechanical ventilator on 12/22/2020, COVID 19 PCR was negative. The patient is status post tracheostomy tube and PEG tube insertion for prolonged respiratory failure. the chest x-ray still pneumonia and recovery of the left lower lobe consolidation. The patient was able to tolerate a total of 10 hours a pressure support mode of ventilation yesterday at a low pressure. Currently he is back on assist control mode. Chest x-ray shows no major abnormalities. Gram-negative pneumonia was treated with IV Zosyn. Nevertheless, the patient seems to be had at hours comfort care measures based on his poor quality of life, advanced comorbidities, and poor performance and functional status. Family is agreeable for comfort care measures and the plan is to proceed with comfort care measures by 4:00 today. #2. Acute urinary tract infection, urine culture has shown no growth. #3. Recent history of MSSA bacteremia in October 2020. #4. Previous history of recurrent sepsis and previous bacteremia. #5. History of left knee septic arthritis status post left [id number] amputation. #6. DM II. The patient is been adequately controlled in terms of his blood sugar and the patient is currently being covered with sliding scale #7. History of COPD. #8. History of PE and DVT, on Xarelto #9. History of coronary artery disease with previous stent placement. #10. Former nicotine dependence. #11. Anxiety/depression. #12. Chronic back pain with history of multiple compression fractures in his thoracic and lumbar spine at T12-L1, L3-L4. #13. Stage II on sacrum, present on admission. #14. Acute kidney injury secondary to sepsis and acute tubular necrosis with s eptic shock, resolved. #15. Acute lactic acidosis related to sepsis and septic shock, improved. #16. Acute encephalopathy, likely toxic metabolic. #17. Episode of SVT on 12/25/2020 requiring adenosine, he is currently in sinus mechanism. #18. Status post PEG tube placement and tracheostomy tube placement, on December 29. #19, hypernatremia , recovered and will get rid of the free water through his OG and the patient is receiving enteral feeding for nutritional support through his PEG tube. Plan: keep the patient off sedation for now Monitor mental status Try again pressure support mode of ventilation with a pressure support of 8 and a PEEP of 5, with understanding that the ventilator will be completely discontinued once the patient goes to a comfort care measures and he will placed on 100% trach collar. Chest x-ray was noted Blood gases was noted Xarelto 10 mg by mouth daily Drop in hemoglobin was also noted. Based on the fact that the patient had a pelvic comfort care, we'll do no further workup regarding this issue. No need for any transfusion. Stop the enteral feeding FOR NOW PENDING COMFORT CARE MEASURES AT THE LATER STAGE Continue IV Zosyn Local wound care Family decided with comfort care measures by 4:00 in the evening. We'll continue our monitoring here in the ICU. We'll continue to follow. Critically care evaluation, more than 30 minutes.
[2021-01-04] MEDS: HYDROCORTISONE SUCCINATE 100 MG/2 ML VIAL IV SCH (10:13)
[2021-01-04] MEDS: PANTOPRAZOLE 40 MG/10 ML VIAL IV SCH (10:13)
[2021-01-04] MEDS: RIVAROXABAN 10 MG TAB PO SCH (10:14)
[2021-01-04] MEDS: PIPERACILLIN-TAZOBACTAM 3.375 GM in SODIUM CHLORIDE 0.9% 100 ML IVPB SCH ×2 (10:14→16:30)
[2021-01-04] MEDS: SODIUM BICARBONATE TAB 650 MG TAB PO SCH ×2 (10:14→16:30)
[2021-01-04] MEDS: FUROSEMIDE 10 MG/ML 4 ML VIAL IV SCH (10:14)
[2021-01-04] MEDS: AMIODARONE 200 MG TAB PO SCH (10:15)
[2021-01-04] MEDS: CHLORHEXIDINE GLUCONATE 15 ML CUP MUCOUS MEM SCH (10:15)
[2021-01-04] MEDS: METOPROLOL TARTRATE 50 MG TAB PO SCH (10:15)
--- NOTE | 2021-01-04 11:02 | P.PN ---
Subjective Progress Note Date: 01/04/21 CHIEF COMPLAINT: Shortness of breath HISTORY OF PRESENT ILLNESS: Patient is status post trach and PEG tube placement. He is tolerating his tube feeds. No residual reported. Tube feedings at 49 mL per hour which is goal. Afebrile. WBC 8.9 Hgb 6.3 k3.3 PHYSICAL EXAM: VITAL SIGNS: Reviewed. GENERAL: Well-developed in no acute distress. HEENT: No sclera icterus. Extraocular movements grossly intact. Moist buccal mucosa. Head is atraumatic, normocephalic. Tracheostomy site clean dry and intact ABDOMEN: Soft. Nondistended. Nontender. PEG tube site clean dry and intact NEUROLOGIC: On mechanical ventilation and sedated ASSESSMENT: 1. Acute on chronic hypoxic respiratory failure status post tracheostomy placement 2. Severe protein calorie malnutrition status post PEG tube placement PLAN: -Continue supportive care -Continue ICU management -Continue tube feedings -Potassium replacement per protocol Physician Veneer Supervisor note has been reviewed by physician. Signing provider agrees with the documented findings, assessment, and plan of care. Objective - Vital Signs Vital signs: Vital Signs Temp 100.7 F H 01/04/21 08:00 Pulse 110 H 01/04/21 10:50 Resp 25 H 01/04/21 10:00 BP 107/68 01/04/21 10:00 Pulse Ox 97 01/04/21 10:00 Intake & Output 01/03/21 01/04/21 01/04/21 18:59 06:59 18:59 Intake Total 1118 1018 198 Output Total 830 390 270 Balance 288 628 -72 Weight 70.2 kg 70.5 kg Intake: IV 440 340 100 Piperacillin-Tazobactam 3 200 100 .375 gm In Sodium Chloride 0.9% 100 ml @ 25 mls/hr IVPB Q8HR [facility]YA Rx# :[id number] Sodium Chloride 0.45% 1, 240 240 100 000 ml @ 20 mls/hr IV . Q24H SURYA Rx#:[id number] Tube Feeding 588 588 98 Other 90 90 Output: Urine 830 390 270 Other: Voiding Method Indwelling Catheter Indwelling Catheter ABP, PAP, CO, CI - Last Documented Arterial Blood Pressure 106/55 - Labs CBC & Chem 7: 01/04/21 05:11 01/04/21 05:11 Labs: Abnormal Lab Results - Last 24 Hours (Table) 01/03/21 01/03/21 01/03/21 Range/Units 11:54 17:49 23:15 RBC (4.30-5.90) m/uL Hgb (13.0-17.5) gm/dL Hct (39.0-53.0) % MCH (25.0-35.0) pg MCHC (31.0-37.0) g/dL RDW (11.5-15.5) % Plt Count (150-450) k/uL ABG pH (7.35-7.45) ABG pO2 (83-108) mmHg ABG HCO3 (21-25) mmol/L ABG Total CO2 (19-24) mmol/L Potassium (3.5-5.1) mmol/L Carbon Dioxide (22-30) mmol/L BUN (9-20) mg/dL Glucose (74-99) mg/dL POC Glucose (mg/dL) 182 H 175 H 104 H (75-99) mg/dL Calcium (8.4-10.2) mg/dL 01/04/21 01/04/21 01/04/21 Range/Units 05:08 05:11 05:11 RBC 2.64 L (4.30-5.90) m/uL Hgb 6.3 L* (13.0-17.5) gm/dL Hct 21.2 L (39.0-53.0) % MCH 23.7 L (25.0-35.0) pg MCHC 29.5 L (31.0-37.0) g/dL RDW 22.2 H (11.5-15.5) % Plt Count 496 H (150-450) k/uL ABG pH 7.53 H (7.35-7.45) ABG pO2 77 L (83-108) mmHg ABG HCO3 33 H (21-25) mmol/L ABG Total CO2 35 H (19-24) mmol/L Potassium 3.3 L (3.5-5.1) mmol/L Carbon Dioxide 31 H (22-30) mmol/L BUN 32 H (9-20) mg/dL Glucose 111 H (74-99) mg/dL POC Glucose (mg/dL) (75-99) mg/dL Calcium 7.9 L (8.4-10.2) mg/dL 01/04/21 Range/Units 05:39 RBC (4.30-5.90) m/uL Hgb (13.0-17.5) gm/dL Hct (39.0-53.0) % MCH (25.0-35.0) pg MCHC (31.0-37.0) g/dL RDW (11.5-15.5) % Plt Count (150-450) k/uL ABG pH (7.35-7.45) ABG pO2 (83-108) mmHg ABG HCO3 (21-25) mmol/L ABG Total CO2 (19-24) mmol/L Potassium (3.5-5.1) mmol/L Carbon Dioxide (22-30) mmol/L BUN (9-20) mg/dL Glucose (74-99) mg/dL POC Glucose (mg/dL) 118 H (75-99) mg/dL Calcium (8.4-10.2) mg/dL
--- NOTE | 2021-01-04 14:02 | P.PN ---
Subjective Progress Note Date: 01/04/21 Remains vent dependent, with FiO2 25%/+5 of PEEP. Maintained on Zosyn for aspiration pneumonia. Sputum culture reporting Klebsiella pneumoniae and Enterobacter cloacae. Chest x-ray reporting improving bibasilar infiltrates. Telemetry sinus tach. with poss proximal SVT earlier this morning, beta lisa increased in addition to verapamil. Evaluated by surgery and scheduled for trach and PEG tomorrow. 12/27/2020 remains vent dependent, FiO2 25%/+5 of PEEP. Last night developed a 12 second run of nonsustained V. tach, placed on amiodarone drip. Magnesium 1.8. He received potassium supplementation yesterday, potassium 3.8. Hemoglobin 9, platelets 191. Continues on Zosyn, afebrile, WBC 11.8. Increased edema of extremities. Received a dose of Lasix 60 mg yesterday, urine output of 1500 MLS reflected in 24 hour I&O, positive fluid balance of 1382. Renal function improving, BUN 24, creatinine 0.78. Chest x-ray Yesterday attempted sedation holiday, patient did not tolerate, became tachypneic, agitated, unable to follow commands. Chest x-ray reporting worsening bibasilar infiltrates, at electasis, atypical pneumonia, early pulmonary , prominent pulmonary vascular markings. Patient initially scheduled for trach and peg, currently declined procedure. Tolerating tube feeds at goal with minimal to no residual. 12/28/2020 remains vent dependent, FiO2 25%/+5 of PEEP. Patient's third spacing, skin fragile with multiple skin tears, albumin 1.9. No further runs of V. tach reported. Sedation holiday attempted yesterday, patient did not tolerate it, became tachycardic, tachypneic, unable to follow commands. 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 Worsening bilateral severe mastoiditis with bilateral ear infection spread suspected. Maintained on Zosyn. Chest x-ray reporting improving bibasilar infiltrates .T- max 100, WBC 12.6. Receiving potassium supplementation for potassium at 3.1, magnesium 1.8. Gentle diuresing with Lasix IV with 24-hour I&O reporting a positive fluid balance of 816. BUN 22, creatinine 0.68. The family currently discussing trach and PEG and has not yet consented. 12/29/2020 Vent dependent, FiO2 25%/5 of PEEP. Sedated on diprovan. Continues on Zosyn, T-max 100.3, WBC 16.8.Chest x-ray reports chronic parenchymal changes without suspicious focal airspace opacity or pneumothorax, with tiny bilateral pleural effusions. Family has consented to trach and PEG-scheduled for today. Hemoglobin 8.4. Diuresing on Lasix IV push with 24-hour I&O reporting a positive fluid balance ,renal function stable. 01/01/2021 vent dependent, FiO2 25% FiO2/+5 of PEEP, status post trach and PEG on Friday, tolerated procedure well. Chest x-ray reporting persistent patchy basilar infiltrates, improving. Sedation discontinued yesterday and remains off. Opens eyes to name, attempting to talk, follows simple commands. Continues on Zosyn, T-max 101.1 WBC 10.8. Hypernatremia, sodium 149, IV fluids increased. Potassium 3.2, BUN 29, creatinine 0.9. 01/02/2021 remains vent dependent, unchanged vent settings, FiO2 25%/+5 of PEEP. Chest x-ray reporting tracheostomy tube overlying the tracheal air column , bilateral interstitial changes, patchy density within the lungs, similar to prior exam .Attempted sedation holiday yesterday patient unable to tolerate;became tachypneic, asynchronous with the vent and Diprovan resumed. Continue on amiodarone and metoprolol, telemetry sinus rhythm. Tolerating tube feeds via PEG tube with minimal to no residuals. Sodium improved,142. Magnesium 1.6. 01/03/2021 currently off sedation, vent dependent, FiO2 25%/+5 peep, chest x-ray reporting mild scattered infiltrates greater at the lung bases, nonspecific, similar. Maintained on IV antibiotics for pneumonia. Afebrile, WBC WNL,Tolerating tubefeeds. Hemoglobin 7.1, ABGs noted, potassium 3.3, being replaced. Magnesium 2. Diuresing on Lasix IV push, with 24-hour I&O reflecting a positive fluid balance. Telemetry sinus rhythm. Family remains undecided regarding long-term vent facility versus hospice. 01/05/2020 remains off of sedation, continue on same vent settings FiO2 25%/+5 of PEEP. Tolerated pressure support for about 10 hours yesterday. Chest x-ray reporting persistent coarse infiltrates bilaterally without significant change. T-max 100.7, WBC within normal limits, continue on Zosyn. Xarelto resumed yesterday, hemoglobin decreased to 6.3, no signs or symptoms of bleeding. Potassium 3.3, BUN 32, creatinine 0.86. Tolerating tube feeds with minimal to no residuals. Blood sugars controlled. Family decided to proceed with comfort care measures today around 1600. Objective - Vital Signs Vital signs: Vital Signs Temp 100.7 F H 01/04/21 08:00 Pulse 110 H 01/04/21 10:50 Resp 25 H 01/04/21 10:00 BP 107/68 01/04/21 10:00 Pulse Ox 97 01/04/21 10:00 Intake & Output 01/03/21 01/04/21 01/04/21 18:59 06:59 18:59 Intake Total 1118 1018 198 Output Total 830 390 270 Balance 288 628 -72 Weight 70.2 kg 70.5 kg Intake: IV 440 340 100 Piperacillin-Tazobactam 3 200 100 .375 gm In Sodium Chloride 0.9% 100 ml @ 25 mls/hr IVPB Q8HR SURYA Rx# :[id number] Sodium Chloride 0.45% 1, 240 240 100 000 ml @ 20 mls/hr IV . Q24H SURYA Rx#:[id number] Tube Feeding 588 588 98 Other 90 90 Output: Urine 830 390 270 Other: Voiding Method Indwelling Catheter Indwelling Catheter ABP, PAP, CO, CI - Last Documented Arterial Blood Pressure 106/55 - Exam - Exam General: Intubated, Vitals reviewed Lungs: coarse breath sounds, rhonchi, no wheezes or rales CV: Regular rate and rhythm, systolic murmur. Abdomen: soft, nondistended, PEG tube present .positive bowel sounds Skin: generalized edema-increased, warm and dry. Microbiology 12/30/20 10:43 Catheter Tip Catheter Tip Culture - Final 12/22/20 11:30 Blood Blood Culture - Final No Growth after 144 hours 12/22/20 11:20 Blood Blood Culture - Final No Growth after 144 hours 12/22/20 13:11 Sputum Gram Stain - Final 12/22/20 13:11 Sputum Sputum Culture - Final Klebsiella pneumoniae Enterobacter cloacae 12/22/20 16:57 Urine,Catheterized Urine Culture - Final - Labs CBC & Chem 7: 01/04/21 05:11 01/04/21 05:11 Labs: Abnormal Lab Results - Last 24 Hours (Table) 01/03/21 01/03/21 01/04/21 Range/Units 17:49 23:15 05:08 RBC (4.30-5.90) m/uL Hgb (13.0-17.5) gm/dL Hct (39.0-53.0) % MCH (25.0-35.0) pg MCHC (31.0-37.0) g/dL RDW (11.5-15.5) % Plt Count (150-450) k/uL ABG pH 7.53 H (7.35-7.45) ABG pO2 77 L (83-108) mmHg ABG HCO3 33 H (21-25) mmol/L ABG Total CO2 35 H (19-24) mmol/L Potassium (3.5-5.1) mmol/L Carbon Dioxide (22-30) mmol/L BUN (9-20) mg/dL Glucose (74-99) mg/dL POC Glucose (mg/dL) 175 H 104 H (75-99) mg/dL Calcium (8.4-10.2) mg/dL 01/04/21 01/04/21 01/04/21 Range/Units 05:11 05:11 05:39 RBC 2.64 L (4.30-5.90) m/uL Hgb 6.3 L* (13.0-17.5) gm/dL Hct 21.2 L (39.0-53.0) % MCH 23.7 L (25.0-35.0) pg MCHC 29.5 L (31.0-37.0) g/dL RDW 22.2 H (11.5-15.5) % Plt Count 496 H (150-450) k/uL ABG pH (7.35-7.45) ABG pO2 (83-108) mmHg ABG HCO3 (21-25) mmol/L ABG Total CO2 (19-24) mmol/L Potassium 3.3 L (3.5-5.1) mmol/L Carbon Dioxide 31 H (22-30) mmol/L BUN 32 H (9-20) mg/dL Glucose 111 H (74-99) mg/dL POC Glucose (mg/dL) 118 H (75-99) mg/dL Calcium 7.9 L (8.4-10.2) mg/dL Assessment and Plan Assessment: Acute on chronic hypoxic respiratory failure, mechanical ventilator-dependent, secondary to septic shock related to acute aspiration pneumonia with Klebsiella pneumoniae, Enterobacter Cloacae, possible acute UTI-follow cultures report no growth. Status post tracheostomy and PEG Bilateral severe mastoiditis with bilateral ear infection suspected per CT Nonsustained V. 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 Former nicotine dependence Stage II sacrum-coccyx ulcer, present on admission Hypoalbuminemia Hypernatremia, resolved Hypokalemia Severe Protein calorie malnutrition Plan: Continue on current medication regime ,monitoring and symptomatic treatment. As mentioned above the family has decided to proceed with comfort care at 1600 today. Maintain supportive care. The impression and plan of care has been dictated as directed. : I performed a history and examination of this patient, discussed the same with the dictator. I agree with the dictator's note ,documented as a scribe. Any additional findings or plans will be noted.
[2021-01-04] MEDS: SODIUM CHLORIDE 0.45% 1,000 ML IV SCH (15:28)
[2021-01-04] MEDS ORDERED: MORPHINE SULFATE 4 MG/ML SYRINGE IV PRN (16:29)
[2021-01-04] MEDS ORDERED: ATROPINE OPHTH SOLN 1% 5ML BTL SUBLINGUAL PRN (16:29)
[2021-01-04] MEDS ORDERED: MORPHINE SULFATE 2 MG/ML SYRINGE IV PRN (16:29)
[2021-01-04] MEDS ORDERED: SCOPOLAMINE 1.5MG/72HR PATCH TRANSDERM SCH (16:30)
[2021-01-04] MEDS: MORPHINE SULFATE (100 MG/2 ML) 100 MG in SODIUM CHLORIDE 0.9% 100 ML IV SCH ×2 (16:54→22:33)
[2021-01-04 17:13] VITALS: BP 97/66; PULSE 82; RESP 15; TEMP 97.9
[2021-01-04] MEDS ORDERED: LORazepam 2 MG/ML INJ IV PRN (19:35)
[2021-01-05] MEDS ORDERED: SODIUM CHLORIDE 0.9% 100 ML BAG ONE (02:55)
[2021-01-05] MEDS ORDERED: MORPHINE SULFATE 100 MG/2ML 20ML (MDV) ONE (02:55)
--- NOTE | 2021-01-05 15:42 | P.CONS ---
History of Present Illness - Reason for Consult Consult date: 12/23/20 sepsis Requesting physician: Clarence Steven - Chief Complaint shortness of breath x few days - History of Present Illness Patient is a 75-year-old male with multiple comorbidities patient has been brought into the ER at [facility] on 12/22/2020 by EMS for evaluation of severe respiratory distress patient symptoms started the day before presentation to the hospital with increasing shortness of breath patient did have a cough that began to be sputum no vomiting or diarrhea reported by the family, patient on presentation hospital have low-grade fever 99.3 the patient did have a normal white count of 10.1, patient did have a excisional scar chronically low lung volumes with moderate to advanced chronic parenchymal fibrotic changes patient did get intubated in the ER to protect his airways and subsequently was admitted in the ICU patient was started on broad-spectrum antibiotic infection was considered for further management most information has been obtained from review the chart and talking to the family and the patient currently intubated on the vent and is unable to provide history Review of Systems Positive points has been mentioned in HPI complete review could not be obtained because of his underlying mental status Past Medical History Past Medical History: Coronary Artery Disease (CAD), COPD, Deep Vein Thrombosis (DVT), Hyperlipidemia, Musculoskeletal Disorder, Pneumonia, Pulmonary Embolus (PE), Rheumatoid Arthritis (RA), Vascular Disorder Additional Past Medical History / Comment(s): History of pancreatitis, 2012 past medical record documents viral pericarditis but pt denies, gastritis, Fluid build up rt lung - previous chest tube - pt unsure what it is from, BOTTOM TEETH REMOVED 09-01-18, wounds in his right lower extremity, left [id number] stump and left elbow. History of multiple compression fractures his thoracic and l umbar spine particularly at T12-L1 and L3 and L4. 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 right ankle sx, thoracentesis, chest tube rt lung, LT above the knee amputation Past Anesthesia/Blood Transfusion Reactions: No Reported Reaction Additional Past Anesthesia/Blood Transfusion Reaction / Comm: Pt states he has never recieved blood. Date of Last Stent Placement:: 12/10/16 Past Psychological History: Anxiety, Depression Smoking Status: Former smoker Past Alcohol Use History: None Reported Past Drug Use History: None Reported - Past Family History Sister(s) Family Medical History: Cancer Additional Family Medical History / Comment(s): pt's father had ra, mother had 16 children was healthy most of her life age 93 from dementia. Mother Family Medical History: Dementia Additional Family Medical History / Comment(s): Mother from dementia at the age of 93 yrs. Father Family Medical History: Rheumatoid Arthritis (RA) Medications and Allergies Home Medications Medication Instructions Recorded Confirmed Type Gabapentin [Neurontin] 300 mg PO TID #9 cap 02/21/20 12/22/20 Rx predniSONE 10 mg PO TID 07/10/20 12/22/20 History Atorvastatin [Lipitor] 40 mg PO HS #90 tab 07/24/20 12/22/20 Rx Metoprolol Tartrate [Lopressor] 50 mg PO DAILY #90 tab 07/24/20 12/22/20 Rx Pantoprazole [Protonix] 40 mg PO BID #180 tablet.dr 07/24/20 12/22/20 Rx Rivaroxaban [Xarelto] 20 mg PO AC-SUPPER 10/24/20 12/22/20 History oxyCODONE-APAP 10-325MG [Percocet 1 tab PO QID 10/24/20 12/22/20 History 10-325 mg] Nystatin 100,000 Unit/ml Susp 500,000 unit PO QID ml 11/02/20 12/22/20 Rx [Mycostatin Oral Susp] lisinopriL [Zestril] 10 mg PO DAILY #0 11/03/20 12/22/20 Rx Budesonide [Pulmicort] 0.5 mg INHALATION RT-BID 12/22/20 12/22/20 History Ipratropium-Albuterol Nebulize 3 ml INHALATION RT-QID 12/22/20 12/22/20 History [Duoneb 0.5 mg-3 mg/3 ml Soln] Meclizine [Antivert] 25 mg PO TID PRN 12/22/20 12/22/20 History Morphine Sulfate ER [Ms Contin] 15 mg PO BID 12/22/20 12/22/20 History Allergies Allergy/AdvReac Type Severity Reaction Status Date / Time No Known Allergies Allergy Verified 12/22/20 11:53 Physical Exam Vitals: Vital Signs Temp Pulse Resp BP Pulse Ox 12/22/20 22:00 77 18 99 12/22/20 21:45 79 22 99 12/22/20 21:30 74 21 98 12/22/20 21:15 77 22 98 12/22/20 21:00 75 22 98 12/22/20 20:45 75 21 98 12/22/20 20:30 97.3 F L 77 18 98 12/22/20 20:15 79 20 97 12/22/20 20:00 80 21 98 12/22/20 19:45 79 21 98 12/22/20 19:30 79 20 98 12/22/20 19:15 80 18 99 12/22/20 19:00 82 18 99 12/22/20 18:45 81 19 98 12/22/20 18:30 97.3 F L 80 20 98 12/22/20 18:15 82 20 98 12/22/20 18:00 80 19 97 12/22/20 17:50 85 18 97 12/22/20 17:40 84 19 97 12/22/20 17:30 80 36 H 98 12/22/20 17:20 80 19 97 12/22/20 17:10 81 18 98 12/22/20 17:00 81 18 118/76 98 12/22/20 16:50 80 29 H 118/76 97 12/22/20 16:40 82 18 118/76 97 12/22/20 16:30 82 20 88/61 100 12/22/20 16:20 88 20 92/63 98 12/22/20 16:10 82 18 84/57 98 12/22/20 16:00 88 18 72/49 98 12/22/20 15:50 92 20 70/48 98 12/22/20 15:40 94 20 67/49 97 12/22/20 15:30 93 20 75/55 97 12/22/20 15:20 96.4 F L 134 H 28 H 92/69 97 12/22/20 14:30 95 18 86/57 100 12/22/20 14:18 100 21 03/12/21 14:00 101 H 18 83/56 100 12/22/20 13:32 104 H 18 80/55 100 12/22/20 13:08 105 H 18 94/60 99 12/22/20 12:57 108 H 18 119/59 100 12/22/20 12:40 107 H 18 92/56 100 12/22/20 12:29 110 H 18 82/50 100 12/22/20 12:20 112 H 18 77/48 100 12/22/20 12:12 114 H 18 67/46 100 12/22/20 12:04 116 H 18 68/43 100 Intake and Output 12/22/20 12/23/20 12/23/20 22:59 06:59 14:59 Intake Total 5611.739 9099.705 177.082 Output Total 420 210 15 Balance 712.573 909.705 162.082 Intake: IV 429 1088 136 Sodium Chloride 0.9% 1, 390 1040 130 000 ml @ 130 mls/hr IV . Q7H42M SURYA Rx#:[id number] pressure bag 39 48 6 Intake, IV Titration 703.573 31.705 41.082 Amount Norepinephrine 4 mg In 53.573 31.705 0 Sodium Chloride 0.9% 250 ml @ 0.05 MCG/KG/MIN 13. 826 mls/hr IV .[id number] SURYA Rx#:[id number] Sodium Chloride 0.9% 1, 650 000 ml @ 130 mls/hr IV . Q7H42M SURYA Rx#:[id number] propofoL 1,000 mg In 41.082 Empty Bag 1 bag @ Titrate IV .Q0M SURYA Rx#: [id number] Output: Urine 420 210 15 Uretheral (Mccain) 50 Other: Voiding Method Indwelling Catheter Indwelling Catheter Weight 66 kg 66 kg GENERAL DESCRIPTION: An elderly male intubated on the vent, no distress. No tachypnea or accessory muscle of respiration use. HEENT: Shows Pallor , no scleral icterus. Oral mucous membrane is dry. NECK: Trachea central, no thyromegaly. LUNGS: Unlabored breathing. Decreased this on the base. No wheeze or crackle. HEART: S1, S2, regular rate and rhythm. No loud murmur ABDOMEN: Soft, no tenderness , guarding or rigidity, no organomegaly EXTREMITIES: No edema of feet. SKIN: No rash, no masses palpable. NEUROLOGICAL: The patient is sedated on the vent. Results CBC & Chem 7: 01/04/21 05:11 01/04/21 05:11 Labs: Abnormal Lab Results - Last 24 Hours (Table) 12/22/20 12/22/20 12/22/20 Range/Units 11:16 11:16 11:16 RBC (4.30-5.90) m/uL Hgb 10.5 L (13.0-17.5) gm/dL Hct 36.5 L (39.0-53.0) % MCH 23.7 L (25.0-35.0) pg MCHC 28.8 L (31.0-37.0) g/dL RDW 23.4 H (11.5-15.5) % Lymphocytes # (Manual) (1.0-4.8) k/uL Metamyelocytes # (Man) (0) k/uL ABG pH (7.35-7.45) ABG pO2 (83-108) mmHg ABG HCO3 (21-25) mmol/L ABG Total CO2 (19-24) mmol/L ABG O2 Saturation (94-97) % Chloride 109 H (98-107) mmol/L Carbon Dioxide 15 L (22-30) mmol/L BUN 46 H (9-20) mg/dL Creatinine 5.48 H (0.66-1.25) mg/dL Glucose 133 H (74-99) mg/dL POC Glucose (mg/dL) (75-99) mg/dL Plasma Lactic Acid Harsh 7.9 H* (0.7-2.0) mmol/L Calcium 7.7 L (8.4-10.2) mg/dL Troponin I (0.000-0.034) ng/mL Total Protein 4.7 L (6.3-8.2) g/dL Albumin 2.1 L (3.5-5.0) g/dL Urine Protein (Negative) Ur Leukocyte Esterase (Negative) Urine RBC (0-5) /hpf Urine WBC (0-5) /hpf Urine WBC Clumps (None) /hpf Urine Bacteria (None) /hpf Hyaline Casts (0-2) /lpf Urine Mucus (None) /hpf Urine Yeast (Budding) (None) /hpf 12/22/20 12/22/20 12/22/20 Range/Units 11:16 12:00 13:12 RBC (4.30-5.90) m/uL Hgb (13.0-17.5) gm/dL Hct (39.0-53.0) % MCH (25.0-35.0) pg MCHC (31.0-37.0) g/dL RDW (11.5-15.5) % Lymphocytes # (Manual) (1.0-4.8) k/uL Metamyelocytes # (Man) (0) k/uL ABG pH 7.19 L* (7.35-7.45) ABG pO2 >400 H (83-108) mmHg ABG HCO3 17 L (21-25) mmol/L ABG Total CO2 18 L (19-24) mmol/L ABG O2 Saturation 100.0 H (94-97) % Chloride (98-107) mmol/L Carbon Dioxide (22-30) mmol/L BUN (9-20) mg/dL Creatinine (0.66-1.25) mg/dL Glucose (74-99) mg/dL POC Glucose (mg/dL) (75-99) mg/dL Plasma Lactic Acid Harsh (0.7-2.0) mmol/L Calcium (8.4-10.2) mg/dL Troponin I 0.087 H* (0.000-0.034) ng/mL Total Protein (6.3-8.2) g/dL Albumin (3.5-5.0) g/dL Urine Protein Trace H (Negative) Ur Leukocyte Esterase Large H (Negative) Urine RBC 25 H (0-5) /hpf Urine WBC 106 H (0-5) /hpf Urine WBC Clumps Moderate H (None) /hpf Urine Bacteria Rare H (None) /hpf Hyaline Casts 40 H (0-2) /lpf Urine Mucus Occasional H (None) /hpf Urine Yeast (Budding) Rare H (None) /hpf 12/22/20 12/22/20 12/22/20 Range/Units 15:09 15:39 16:29 RBC (4.30-5.90) m/uL Hgb (13.0-17.5) gm/dL Hct (39.0-53.0) % MCH (25.0-35.0) pg MCHC (31.0-37.0) g/dL RDW (11.5-15.5) % Lymphocytes # (Manual) (1.0-4.8) k/uL Metamyelocytes # (Man) (0) k/uL ABG pH (7.35-7.45) ABG pO2 139 H (83-108) mmHg ABG HCO3 (21-25) mmol/L ABG Total CO2 27 H (19-24) mmol/L ABG O2 Saturation 99.6 H (94-97) % Chloride (98-107) mmol/L Carbon Dioxide (22-30) mmol/L BUN (9-20) mg/dL Creatinine (0.66-1.25) mg/dL Glucose (74-99) mg/dL POC Glucose (mg/dL) 147 H (75-99) mg/dL Plasma Lactic Acid Harsh 4.0 H* (0.7-2.0) mmol/L Calcium (8.4-10.2) mg/dL Troponin I (0.000-0.034) ng/mL Total Protein (6.3-8.2) g/dL Albumin (3.5-5.0) g/dL Urine Protein (Negative) Ur Leukocyte Esterase (Negative) Urine RBC (0-5) /hpf Urine WBC (0-5) /hpf Urine WBC Clumps (None) /hpf Urine Bacteria (None) /hpf Hyaline Casts (0-2) /lpf Urine Mucus (None) /hpf Urine Yeast (Budding) (None) /hpf 12/22/20 12/22/20 12/23/20 Range/Units 18:04 23:53 05:00 RBC 4.02 L (4.30-5.90) m/uL Hgb 9.6 L (13.0-17.5) gm/dL Hct 32.1 L (39.0-53.0) % MCH 24.0 L (25.0-35.0) pg MCHC 30.0 L (31.0-37.0) g/dL RDW 23.5 H (11.5-15.5) % Lymphocytes # (Manual) 0.87 L (1.0-4.8) k/uL Metamyelocytes # (Man) 0.16 H (0) k/uL ABG pH (7.35-7.45) ABG pO2 (83-108) mmHg ABG HCO3 (21-25) mmol/L ABG Total CO2 (19-24) mmol/L ABG O2 Saturation (94-97) % Chloride (98-107) mmol/L Carbon Dioxide (22-30) mmol/L BUN (9-20) mg/dL Creatinine (0.66-1.25) mg/dL Glucose (74-99) mg/dL POC Glucose (mg/dL) 178 H 182 H (75-99) mg/dL Plasma Lactic Acid Harsh (0.7-2.0) mmol/L Calcium (8.4-10.2) mg/dL Troponin I (0.000-0.034) ng/mL Total Protein (6.3-8.2) g/dL Albumin (3.5-5.0) g/dL Urine Protein (Negative) Ur Leukocyte Esterase (Negative) Urine RBC (0-5) /hpf Urine WBC (0-5) /hpf Urine WBC Clumps (None) /hpf Urine Bacteria (None) /hpf Hyaline Casts (0-2) /lpf Urine Mucus (None) /hpf Urine Yeast (Budding) (None) /hpf 12/23/20 12/23/20 12/23/20 Range/Units 05:00 05:09 06:01 RBC (4.30-5.90) m/uL Hgb (13.0-17.5) gm/dL Hct (39.0-53.0) % MCH (25.0-35.0) pg MCHC (31.0-37.0) g/dL RDW (11.5-15.5) % Lymphocytes # (Manual) (1.0-4.8) k/uL Metamyelocytes # (Man) (0) k/uL ABG pH 7.34 L (7.35-7.45) ABG pO2 132 H (83-108) mmHg ABG HCO3 19 L (21-25) mmol/L ABG Total CO2 (19-24) mmol/L ABG O2 Saturation 99.7 H (94-97) % Chloride 118 H (98-107) mmol/L Carbon Dioxide 17 L (22-30) mmol/L BUN 40 H (9-20) mg/dL Creatinine 2.30 H (0.66-1.25) mg/dL Glucose 123 H (74-99) mg/dL POC Glucose (mg/dL) 134 H (75-99) mg/dL Plasma Lactic Acid Harsh (0.7-2.0) mmol/L Calcium 6.7 L (8.4-10.2) mg/dL Troponin I (0.000-0.034) ng/mL Total Protein (6.3-8.2) g/dL Albumin (3.5-5.0) g/dL Urine Protein (Negative) Ur Leukocyte Esterase (Negative) Urine RBC (0-5) /hpf Urine WBC (0-5) /hpf Urine WBC Clumps (None) /hpf Urine Bacteria (None) /hpf Hyaline Casts (0-2) /lpf Urine Mucus (None) /hpf Urine Yeast (Budding) (None) /hpf Microbiology - Last 24 Hours (Table) 12/22/20 13:11 Gram Stain - Preliminary Sputum Sputum Culture - Preliminary 12/22/20 16:57 Urine Culture - Preliminary Urine,Catheterized Assessment and Plan Assessment: 1- patient presented to hospital with acute respiratory failure in this patient underlying COPD and did have a history of pneumonias and has been on antibiotics recently completed a course of cefazolin for his foot infection likely component of pneumonia and possible aspiration/gram-negative in view of multiple exposure to antibiotics in the recent past (1) Aspiration pneumonia Status: Acute Code(s): J69.0 - PNEUMONITIS DUE TO INHALATION OF FOOD AND VOMIT SNOMED Code(s): 812062722 Plan: 1-we will try to obtain a sputum for Gram stain and culture 2-Zosyn 3.375 gm every 8 hours 3-discontinue vancomycin to decrease risk of nephrotoxicity We will follow on clinical condition and cultures to further adjust medication if needed Thank you for this consultation will follow this patient with you Time with Patient: Greater than 30
--- NOTE | 2021-01-05 15:45 | P.PN ---
Progress Note - Text Progress Note Date: 01/04/21 REASON FOR FOLLOWUP: Aspiration pneumonia. INTERVAL HISTORY: The patient did a low-grade fever of 100.7 this morning. The patient remains to be lethargic is unable to hold any history, the patient FiO2 is currently at 25%. No significant purulent secretions in the ET or diarrhea reported by the nursing staff. PHYSICAL EXAMINATION: Blood pressure is 89/60, pulse of 69, temperature 99.2. He is 96% on 25% FiO2. General description is an elderly male lying in bed in no distress. RESPIRATORY SYSTEM: Unlabored breathing with decreased breath sounds at the base. No wheeze. HEART: S1, S2. Regular rate and rhythm. ABDOMEN: Soft. No tenderness. LABS: Reviewed DIAGNOSTIC IMPRESSION AND PLAN: Patient with klebsiella and enterobacter pneumonia, likely aspiration etiology, for which the patient is currently covered with Zosyn. Possible plan for hospice which may be appropriate In that case antibiotic can be safely discontinued discussed with the RN
--- NOTE | 2021-01-10 22:42 | P.DS ---
Providers Date of admission: 12/22/20 12:17 Attending physician: Clarence Steven MD Consults: 12/22/20 12:14 Consult Physician Stat Consulting Provider: Gonzalez Samuel Consult Reason/Comments: resp failure, copd, alexander Do you want consulting provider notified?: Already Contacted 12/23/20 09:10 Consult Physician Routine Consulting Provider: Cherelle Pendleton Consult Reason/Comments: sepsis Do you want consulting provider notified?: Yes 12/26/20 08:22 Consult Physician Routine Consulting Provider: Jose Serrano Consult Reason/Comments: trach and peg placement Do you want consulting provider notified?: Yes Primary care physician: Diane Steven [facility] Course: Remains vent dependent, with FiO2 25%/+5 of PEEP. Maintained on Zosyn for aspiration pneumonia. Sputum culture reporting Klebsiella pneumoniae and Enterobacter cloacae. Chest x-ray reporting improving bibasilar infiltrates. Telemetry sinus tach. with poss proximal SVT earlier this morning, beta lisa increased in addition to verapamil. Evaluated by surgery and scheduled for trach and PEG tomorrow. 12/27/2020 remains vent dependent, FiO2 25%/+5 of PEEP. Last night developed a 12 second run of nonsustained V. tach, placed on amiodarone drip. Magnesium 1.8. He received potassium supplementation yesterday, potassium 3.8. Hemoglobin 9, platelets 191. Continues on Zosyn, afebrile, WBC 11.8. Increased edema of extremities. Received a dose of Lasix 60 mg yesterday, urine output of 1500 MLS reflected in 24 hour I&O, positive fluid balance of 1382. Renal function improving, BUN 24, creatinine 0.78. Chest x-ray Yesterday attempted sedation holiday, patient did not tolerate, became tachypneic, agitated, unable to follow commands. Chest x-ray reporting worsening bibasilar infiltrates, atelectasis, atypical pneumonia, early pulmonary , prominent pulmonary vascular markings. Patient initially scheduled for trach and peg, currently declined procedure. Tolerating tube feeds at goal with minimal to no residual. 12/28/2020 remains vent dependent, FiO2 25%/+5 of PEEP. Patient's third spacing, skin fragile with multiple skin tears, albumin 1.9. No further runs of V. tach reported. Sedation holiday attempted yesterday, patient did not tolerate it, became tachycardic, tachypneic, unable to follow commands. 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 Worsening bilateral severe mastoiditis with bilateral ear infection spread suspected. Maintained on Zosyn. Chest x-ray reporting improving bibasilar infiltrates .T- max 100, WBC 12.6. Receiving potassium supplementation for potassium at 3.1, magnesium 1.8. Gentle diuresing with Lasix IV with 24-hour I&O reporting a positive fluid balance of 816. BUN 22, creatinine 0.68. The family currently discussing trach and PEG and has not yet consented. 12/29/2020 Vent dependent, FiO2 25%/5 of PEEP. Sedated on diprovan. Continues on Zosyn, T-max 100.3, WBC 16.8.Chest x-ray reports chronic parenchymal changes without suspicious focal airspace opacity or pneumothorax, with tiny bilateral pleural effusions. Family has consented to trach and PEG-scheduled for today. Hemoglobin 8.4. Diuresing on Lasix IV push with 24-hour I&O reporting a positive fluid balance ,renal function stable. 01/01/2021 vent dependent, FiO2 25% FiO2/+5 of PEEP, status post trach and PEG on Friday, tolerated procedure well. Chest x-ray reporting persistent patchy basilar infiltrates, improving. Sedation discontinued yesterday and remains off. Opens eyes to name, attempting to talk, follows simple commands. Continues on Zosyn, T-max 101.1 WBC 10.8. Hypernatremia, sodium 149, IV fluids increased. Potassium 3.2, BUN 29, creatinine 0.9. 01/02/2021 remains vent dependent, unchanged vent settings, FiO2 25%/+5 of PEEP. Chest x-ray reporting tracheostomy tube overlying the tracheal air column , bilateral interstitial changes, patchy density within the lungs, similar to prior exam .Attempted sedation holiday yesterday patient unable to tolerate;became tachypneic, asynchronous with the vent and Diprovan resumed. Continue on amiodarone and metoprolol, telemetry sinus rhythm. Tolerating tube feeds via PEG tube with minimal to no residuals. Sodium improved,142. Magnesium 1.6. 01/03/2021 currently off sedation, vent dependent, FiO2 25%/+5 peep, chest x-ray reporting mild scattered infiltrates greater at the lung bases, nonspecific, similar. Maintained on IV antibiotics for pneumonia. Afebrile, WBC WNL,Tolerating tubefeeds. Hemoglobin 7.1, ABGs noted, potassium 3.3, being replaced. Magnesium 2. Diuresing on Lasix IV push, with 24-hour I&O reflecting a positive fluid balance. Telemetry sinus rhythm. Family remains undecided regarding long-term vent facility versus hospice. 01/05/2020 remains off of sedation, continue on same vent settings FiO2 25%/+5 of PEEP. Tolerated pressure support for about 10 hours yesterday. Chest x-ray reporting persistent coarse infiltrates bilaterally without significant change. T-max 100.7, WBC within normal limits, continue on Zosyn. Xarelto resumed yesterday, hemoglobin decreased to 6.3, no signs or symptoms of bleeding. Potassium 3.3, BUN 32, creatinine 0.86. Tolerating tube feeds with minimal to no residuals. Blood sugars controlled. Family decided to proceed with comfort care measures today around 1600.' On 01/05 pt surrounded by family. Patient Condition at Discharge: Critical Plan - Discharge Summary Discharge Rx Participant: Yes New Discharge Prescriptions: No Action Gabapentin [Neurontin] 300 mg PO TID #9 cap predniSONE 10 mg PO TID Atorvastatin [Lipitor] 40 mg PO HS #90 tab Metoprolol Tartrate [Lopressor] 50 mg PO DAILY #90 tab Pantoprazole [Protonix] 40 mg PO BID #180 tablet. oxyCODONAntoine-APAP 10-325MG [Percocet 10-325 mg] 1 tab PO QID Rivaroxaban [Xarelto] 20 mg PO AC-SUPPER Nystatin 100,000 Unit/ml Susp [Mycostatin Oral Susp] 500,000 unit PO QID ml lisinopriL [Zestril] 10 mg PO DAILY #0 Morphine Sulfate ER [Ms Contin] 15 mg PO BID Meclizine [Antivert] 25 mg PO TID PRN PRN Reason: DIZZINESS Ipratropium-Albuterol Nebulize [Duoneb 0.5 mg-3 mg/3 ml Soln] 3 ml INHALATION RT-QID Budesonide [Pulmicort] 0.5 mg INHALATION RT-BID Discharge Medication List Gabapentin [Neurontin] 300 mg PO TID #9 cap 02/21/20 [Rx] predniSONE 10 mg PO TID 07/10/20 [History] Atorvastatin [Lipitor] 40 mg PO HS #90 tab 07/24/20 [Rx] Metoprolol Tartrate [Lopressor] 50 mg PO DAILY #90 tab 07/24/20 [Rx] Pantoprazole [Protonix] 40 mg PO BID #180 tablet.dr 07/24/20 [Rx] Rivaroxaban [Xarelto] 20 mg PO AC-SUPPER 10/24/20 [History] oxyCODONE-APAP 10-325MG [Percocet 10-325 mg] 1 tab PO QID 10/24/20 [History] Nystatin 100,000 Unit/ml Susp [Mycostatin Oral Susp] 500,000 unit PO QID ml 11/02/20 [Rx] lisinopriL [Zestril] 10 mg PO DAILY #0 11/03/20 [Rx] Budesonide [Pulmicort] 0.5 mg INHALATION RT-BID 12/22/20 [History] Ipratropium-Albuterol Nebulize [Duoneb 0.5 mg-3 mg/3 ml Soln] 3 ml INHALATION RT-QID 12/22/20 [History] Meclizine [Antivert] 25 mg PO TID PRN 12/22/20 [History] Morphine Sulfate ER [Ms Contin] 15 mg PO BID 12/22/20 [History] Follow up Appointment(s)/Referral(s): Diane Steven DO [Primary Care Provider] - 1-2 days [facility], [NON-STAFF] - As Needed Discharge Disposition: - Preliminary Cause of Preliminary Cause of : Pneumonia
== END 2021-01-05 11:53 | disposition expired | DRG 4 ==
LOC: EC 10:58 → 2SICU 12:17
PROVIDERS: ADMIT Family Medicine; ATTEND Family Medicine
PROC: 5A1955Z Respiratory Ventilation, Greater than 96 Consecutive Hours (ICD-10-PCS; 2020-12-22)
PROC: 0BH17EZ Insertion of Endotracheal Airway into Trachea, Via Natural or Artificial Opening (ICD-10-PCS; 2020-12-22)
PROC: 5A09357 Assistance with Respiratory Ventilation, Less than 24 Consecutive Hours, Continuous Positive Airway Pressure (ICD-10-PCS; 2020-12-22)
PROC: 06HM33Z Insertion of Infusion Device into Right Femoral Vein, Percutaneous Approach (ICD-10-PCS; 2020-12-22)
PROC: 04HY32Z Insertion of Monitoring Device into Lower Artery, Percutaneous Approach (ICD-10-PCS; 2020-12-22)
PROC: 4A133B1 Monitoring of Arterial Pressure, Peripheral, Percutaneous Approach (ICD-10-PCS; 2020-12-22)
PROC: 4A133J1 Monitoring of Arterial Pulse, Peripheral, Percutaneous Approach (ICD-10-PCS; 2020-12-22)
PROC: 0DH67UZ Insertion of Feeding Device into Stomach, Via Natural or Artificial Opening (ICD-10-PCS; 2020-12-22)
PROC: 3E0G76Z Introduction of Nutritional Substance into Upper GI, Via Natural or Artificial Opening (ICD-10-PCS; 2020-12-23)
PROC: 0DH63UZ Insertion of Feeding Device into Stomach, Percutaneous Approach (ICD-10-PCS; 2020-12-29)
PROC: 02HV33Z Insertion of Infusion Device into Superior Vena Cava, Percutaneous Approach (ICD-10-PCS; 2020-12-29)
PROC: 0B110F4 Bypass Trachea to Cutaneous with Tracheostomy Device, Open Approach (ICD-10-PCS; principal; 2020-12-29 07:30)
DX: A41.50 Gram-negative sepsis, unspecified (principal); R65.21 Severe sepsis with septic shock; N17.0 Acute kidney failure with tubular necrosis; J69.0 Pneumonitis due to inhalation of food and vomit; G92 Toxic encephalopathy; E43 Unspecified severe protein-calorie malnutrition; J15.0 Pneumonia due to Klebsiella pneumoniae; I21.A1 Myocardial infarction type 2; J96.21 Acute and chronic respiratory failure with hypoxia; E87.4 Mixed disorder of acid-base balance; J90 Pleural effusion, not elsewhere classified; E87.0 Hyperosmolality and hypernatremia; L03.115 Cellulitis of right lower limb; I47.1 Supraventricular tachycardia; J44.0 Chronic obstructive pulmonary disease with (acute) lower respiratory infection; N39.0 Urinary tract infection, site not specified; Z99.11 Dependence on respirator [ventilator] status; L89.152 Pressure ulcer of sacral region, stage 2; I27.29 Other secondary pulmonary hypertension; D63.8 Anemia in other chronic diseases classified elsewhere; H70.93 Unspecified mastoiditis, bilateral; S81.811A Laceration without foreign body, right lower leg, initial encounter; E11.51 Type 2 diabetes mellitus with diabetic peripheral angiopathy without gangrene; Z51.5 Encounter for palliative care; Z66 Do not resuscitate; Z89.612 Acquired absence of left leg above knee; F03.90 Unspecified dementia, unspecified severity, without behavioral disturbance, psychotic disturbance, mood disturbance, and anxiety; Z20.822 Contact with and (suspected) exposure to COVID-19; M06.9 Rheumatoid arthritis, unspecified; I48.0 Paroxysmal atrial fibrillation; I25.10 Atherosclerotic heart disease of native coronary artery without angina pectoris; E78.5 Hyperlipidemia, unspecified; F41.9 Anxiety disorder, unspecified; F32.9 Major depressive disorder, single episode, unspecified; G89.29 Other chronic pain; E87.6 Hypokalemia; X58.XXXA Exposure to other specified factors, initial encounter; E83.42 Hypomagnesemia; I07.1 Rheumatic tricuspid insufficiency; Z71.3 Dietary counseling and surveillance; Z68.23 Body mass index [BMI] 23.0-23.9, adult; Z79.01 Long term (current) use of anticoagulants; Z79.891 Long term (current) use of opiate analgesic; Z79.51 Long term (current) use of inhaled steroids; Z79.899 Other long term (current) drug therapy; Z86.718 Personal history of other venous thrombosis and embolism; Z79.52 Long term (current) use of systemic steroids; Z87.01 Personal history of pneumonia (recurrent); Z86.711 Personal history of pulmonary embolism; Z87.311 Personal history of (healed) other pathological fracture; Z86.14 Personal history of Methicillin resistant Staphylococcus aureus infection; Z95.5 Presence of coronary angioplasty implant and graft; Z96.611 Presence of right artificial shoulder joint; Z98.890 Other specified postprocedural states; Z87.891 Personal history of nicotine dependence; Z86.19 Personal history of other infectious and parasitic diseases; Z87.19 Personal history of other diseases of the digestive system; Z80.9 Family history of malignant neoplasm, unspecified; Z82.0 Family history of epilepsy and other diseases of the nervous system; Z82.61 Family history of arthritis
CPT/HCPCS: 31500; 36415; 36573; 36600; 43246; 70450; 71045; 74018; 80048; 80053; 80202; 81001; 82803; 82805; 83036; 83605; 83735; 83880; 84132; 84484; 85025; 85610; 85730; 87040; 87070; 87077; 87086; 87186; 87205; 87324; 87635; 93005; 94002; 94003; 94640; 94660; 99291